=== PATIENT | female | born 1965 | race Caucasian/White ===

== ENCOUNTER 2017-12-31 03:11 | Emergency (ER) | payer MEDICAID, SELFPAY ==
[2017-12-31 03:12] VITALS: BP 191/87; PULSE 74; RESP 18; TEMP 36.9; O2SAT 100; BMI 32.5
--- NOTE | 2017-12-31 03:44 | ED.VISSUMM ---
- ER Visit Summary Date of Service: 12/31/17 Chief Complaint: Right lower rib cage and right upper quadrant abdominal pain History of Present Illness: The patient is a 52 F 3 of prior cholecystectomy. Is no history of a dilated cardiomyopathy, renal insufficiency and COPD. She states she was lying in bed at home when she had onset of right lower rib cage right upper quadrant abdominal pain. States she has a cough. No nausea no vomiting. No diarrhea no melena. No fever. She denies any trauma. She denies any dysuria. Physical Examination: Well-appearing middle-age female. Vital signs are stable afebrile. Pulse ox are percent on room air no signs of hypoxia. HEENT exam unremarkable. Neck nontender no lymphadenopathy. Lungs good auscultation bilaterally. Heart regular rate and rhythm no murmur. Chest wall she has reproducible tenderness along her right lower rib cage. No bruising no subcu air. Abdomen itself seems soft. There is only minimal tenderness and is more the right rib cage in the abdomen itself. Nondistended normal bowel sounds no peritoneal signs. No pulsatile mass. No Richard sign. No McBurney's point tenderness. Moving all 4 extremities. Calves nontender. No edema no cords. Neurologically she is awake and alert with no focal motor deficits. Test Results: CBC normal with a white count of 7. H&H of 13 and 38. Electrolytes unremarkable with a normal gap and creatinine is 0.8. EKG shows sinus rhythm a rate is 73 with no acute signs of ischemia or dysrhythmia. Portable chest x-ray 1 view shows borderline cardiomegaly otherwise no acute process. No bony abnormalities. No infiltrate. Liver enzymes normal. Lipase normal. Emergency Department Course and Treatment: Patient seemingly has right rib cage pain and chest x-ray to be obtained also obtain labs but clinically I do not think this is abdominal pain. Treatment Plan: Repeat exam at 0548 patient is resting comfortably. Patient is doing much better multiple repeat exams. She seems like she wants to be admitted to the hospital but there is no criteria in which she would need admission either clinically or lab perez. She will be discharged to home. To follow-up with her primary care physician. Disposition: Discharge Impression: Right lower chest wall pain This note was generated with [employer] dictation software. It may contain incorrect words, spelling, and punctuation that were not noted in review of the chart prior to signing ED Disposition - Plan for ED Patient: Chief Complaint: Abd Pain Referrals: Jay Cody MD [Primary Care Provider] -
--- NOTE | 2017-12-31 04:28 | ED.RN ---
PT GLORIA KEATING WITH C/O CP. THIS RN CALLED FOR EKG. PT ON MONITOR. DR. KAUR INFORMED. WILL CONTINUE TO MONITOR.
[2017-12-31 04:35] LABS: Absolute Neutrophil Count 5.9 X10^3/uL (2.0-7.7); Basophil# 0.02 X10^3/uL; Basophil% 0.3 % (0-1); Eosinophil# 0.14 X10^3/uL; Eosinophils% 1.8 % (0-5); Hematocrit 38.9 % (37-47); Hemoglobin 13.5 g/dl (12.0-15.0); Lymphocyte % 14.1 % (19-41); Mean Corp Hgb Conc 34.7 g/gl (32-36); Mean Corpuscular Hgb 31.5 pg (27.0-32.0); Mean Corpuscular Volume 90.7 fL (81-99); Mean Platelet Vol. 10.4 fl (6.2-12.0); Monocyte# 0.65 X10^3/uL; Monocyte% 8.3 % (0-10); Neutrophil % 75.4 % (47-70); Platelet Count 196 K/mm3 (150-450); RBC Distribution Width CV 13.5 % (11.6-14.6); RBC Distribution Width SD 44.5 fl (35.1-43.9); Red Blood Count 4.29 M/mm3 (4.2-5.4); White Blood Count 7.8 K/mm3 (4.4-11.0)
[2017-12-31 04:37] LABS: POSITIVE COUNT NO; POSITIVE DIFFERENTIAL NO; POSITIVE MORPHOLOGY NO
[2017-12-31 04:55] LABS: Anion Gap 10 (5-15); BUN 25 mg/dL (7-18); BUN/Creat Ratio 30.7 RATIO (10-20); Calcium,Total 8.7 mg/dL (8.5-10.1); Chloride 102 mmol/L (98-107); Creatinine, Serum 0.82 mg/dL (0.55-1.02); EST Glomerular Filtration Rate 78 mL/min (>60); Est Glom Filt Rate - Afr Amer 94 mL/min (>60); Estimated Creatinine Clearance 68.51 ml/min; Glucose 93 mg/dL (74-106); Potassium 3.7 mmol/L (3.5-5.1); Sodium Level 134 mmol/L (136-145)
[2017-12-31 05:30] VITALS: BP 182/81; PULSE 79; RESP 18; O2SAT 97
--- NOTE | 2017-12-31 05:45 | RAD_ITS ---
STUDY: X-RAY CHEST REASON FOR EXAM: Female, 52 years old. Pain TECHNIQUE: Single frontal view of the chest. COMPARISON: 06/24/2017 FINDINGS: The lungs are clear and expanded. There is no demonstrated pleural abnormality. Stable cardiac silhouette. Normal mediastinum and rosita. Normal visualized pulmonary arteries. Normal visualized aortic arch and descending thoracic aorta. Normal visualized thoracic spine. Normal visualized ribs, clavicles, and shoulders. There is no demonstrated abnormality of the visualized soft tissue structures of the upper abdomen. RAD/Chest 1 View (Portable) IMPRESSION: No acute pulmonary findings. Electronically Signed: Juan Carlos Slater MD at 6:21 EDT Tel , Service support ,
[2017-12-31 06:04] LABS: Lipase 102 U/L (73-393)
--- NOTE | 2017-12-31 06:10 | ED.RN ---
PT REPORTS WEAKNESS IN LEFT ARM. DR. KAUR INFORMED. PT ASLO COMPLAINS OF CONTINUED PAIN IN ABDOMEN AND NAUSEA. DR. KAUR INFORMED. ZOFRAN TO BE ORDERED PER DR. KAUR.
[2017-12-31] MEDS: Ondansetron 4 MG/2 ML Vial IV (06:17)
[2017-12-31 06:27] LABS: AST(SGOT) 21 U/L (15-37); Alanine Aminotransfer ALT/SGPT 28 U/L (13-56); Albumin, Serum 3.6 g/dL (3.2-5.0); Alkaline Phosphatase 88 U/L (45-117); Bilirubin, Direct < 0.05 mg/dL (0.00-0.30); Globulin 3.1 g/dL (2.2-4.2); Protein, Total 6.7 g/dL (6.4-8.2)
--- NOTE | 2017-12-31 06:30 | ED.DEP ---
ED Disposition - Plan for ED Patient: Disposition: Home or Assisted Living Chief Complaint: Abd Pain Instructions: ED Strain Chest Wall Referrals: Jay Cody MD [Primary Care Provider] - As soon as possible Additional Instructions: All your labs, x-ray and EKG were normal today. Call follow-up your primary care physician.
[2017-12-31 06:54] VITALS: BP 183/88; PULSE 79; RESP 18; O2SAT 97
--- NOTE | 2017-12-31 06:55 | ED.RN ---
PT GIVEN WRITTEN AND VERBAL DISCHARGE INSTRUCTIONS. PT VERBALIZES UNDERSTANDING. PT SIGNS MEDICAL RELEASE FORM AND TAKES HOME LABORATORY REPORT. PT DRESSES SELF AND USED LEFT ARM WITHOUT DIFFICULTY. PT AMBULATED TO WHEELCHAIR WITHOUT ASSISTANCE AND WAS WHEELED TO FAMILY VEHICLE. IV D/C AND COVERED WITH GAUZE DRESSING.
== END 2017-12-31 07:02 | disposition home or self-care (01) ==
PROVIDERS: Emergency Provider Emergency Medicine; Family Provider Family Medicine; PCP Family Medicine
DX: R07.89 Other chest pain (principal); R05 Cough; R11.0 Nausea; I51.7 Cardiomegaly; J44.9 Chronic obstructive pulmonary disease, unspecified; I42.0 Dilated cardiomyopathy; N28.9 Disorder of kidney and ureter, unspecified; Z90.49 Acquired absence of other specified parts of digestive tract; Z79.899 Other long term (current) drug therapy; Z72.0 Tobacco use
CPT/HCPCS: 71045; 80048; 80076; 83690; 85025; 96374; 99285; A4216; J2405

== ENCOUNTER → 2018-01-21 12:51 | Outpatient (CLI) | payer MEDICAID, SELFPAY ==
--- NOTE | 2018-01-21 12:54 | RAD_ITS ---
STUDY: SWALLOWING STUDY REASON FOR EXAM: Female, 52 years old. Globus sensation. TECHNIQUE: The examination was performed with Speech Pathology in attendance. Under fluoroscopic observation, the patient ingested thin barium, thick barium, barium pudding, and barium coated cracker. FLUOROSCOPY TIME: 1:30 minutes/seconds. 1453 spot images. RADIOLOGIST INVOLVEMENT: Radiologist was present and providing direct supervision. COMPARISON: None. FINDINGS: The following was observed during swallowing of the various mixtures of barium: Thin Barium: There was no evidence of aspiration or laryngeal penetration. Barium Pudding: There was no evidence of aspiration or laryngeal penetration. Barium Coated Cracker: There was no evidence of aspiration or laryngeal penetration. RAD/Swallowing Function w/Video IMPRESSION: Normal tailored barium swallow study. No evidence of increased risk for aspiration. The swallow study findings were discussed with the patient by the speech pathologist at the conclusion of the examination. Please see speech pathology report for more information and recommendations. Electronically Signed: Patrick Keita MD at 14:10 EDT Tel [phone], Service support ,
--- NOTE | 2018-01-21 13:00 | SP.MBSS_ITS ---
PRIMARY / SECONDARY DIAGNOSIS: dysphagia (R13.10) REFERRING PHYSICIAN: Toni Cody CURRENT DIET: Soft Textures/Thin Liquids DENTITION: many missing/decayed teeth; currently in the process of having all teeth removed to be fitted for dentures MENTAL STATUS: WNL RESPIRATORY STATUS: SOB w/ exertion; oxygenating on room ail PREVIOUS MODIFIED BARIUM SWALLOW STUDY: patient reports that she had a previous MBS several years ago at the [facility] no report available at time of study REASON FOR REFERRAL: Pt c/o globus sensation w/ all textures and w/ own secretions. Reports coughing /choking on liquids if taking large sips. Further assessment of swallow function under fluoroscopy recommended by Speech Therapy. MEDICAL HISTORY: HTN, severe aortic insufficiency, CKDIII, DAPHNE, hypothyroidism, and schizophrenia STUDY FINDINGS: Patient participated in a Modified Barium Swallow (MBS) study on 01/21/2018. Dr. Keita was the radiologist present for this evaluation. This study was recorded in the lateral view and images were sent to PACs for storage. The following consistencies were presented to this patient for analysis of oropharyngeal swallow function: thin liquid, pudding, and a regular texture Yasmine Doone cookie. Results of the MBS are as follows: PENETRATION / ASPIRATION SCALE (MYERS): 1 = does not enter airway 2 = enters airway/above vocal folds/ejected 3 = enters airway/above vocal folds/not ejected 4 = enters airway/contacts vocal folds/ejected 5 = enters airway/contacts vocal folds/not ejected 6 = enters airway/below vocal folds/ejected 7 = enters airway/below vocal folds/not ejected despite effort 8 = enters airway/below vocal folds/no effort PENETRATION / ASPIRATION SCALE (SCORE): Thin liquid - 5 mL tsp: 2* Thin liquid - 5 mL tsp: Could not view d/t patient movement Thin liquid - 5 mL tsp: 2* Thin liquids via cup (single sip): 2* Thin liquids via cup (sequential swallows): 2* Pudding via spoon: 1 Pudding via spoon: 1 Regular textured cookie: 1 Thin liquids via straw (single sip): 2* *thin liquid undercoated the posterior laryngeal surface of the epiglottis during the swallow w/ contract ejection and complete arytenoid to epiglottic petiole contact for airway protection at the height of swallow IMPRESSION: DIAGNOSIS: mild oropharyngeal dysphagia (R13.12) ORAL PHASE CHARACTERIZED BY: LABIAL SEAL: no labial escape TONGUE CONTROL DURING BOLUS MANIPULATION: cohesive bolus between tongue to palatal seal BOLUS PREPARATION / MASTICATION: slow prolonged chewing/mashing with complete recollection BOLUS TRANSPORT / LINGUAL MOTION: slowed tongue motion ORAL RESIDUE: trace residue lining oral structures PHARYNGEAL PHASE CHARACTERIZED BY: INITIATION OF PHARYNGEAL SWALLOW: bolus head at posterior laryngeal surface of epiglottis at first hyoid excursion SOFT PALATE ELEVATION: no bolus between soft palate and pharyngeal wall LARYNGEAL ELEVATION: partial superior movement of thyroid cartilage/partial approximation of arytenoids cartilage to epiglottic petiole ANTERIOR HYOID EXCURSION: partial anterior movement EPIGLOTTIC MOVEMENT: complete epiglottic inversion LARYNGEAL VESTIBULE CLOSURE AT HEIGHT OF SWALLOW: complete laryngeal vestibule closure with no air/contrast in laryngeal vestibule PHARYNGEAL STRIPPING WAVE: pharyngeal stripping wave present / complete PHARYNGOESOPHAGEAL SEGMENT OPENING: complete distension and complete duration with no obstruction of flow TONGUE BASE RETRACTION: trace column of contrast between tongue base and posterior pharyngeal wall PHARYNGEAL RESIDUE: trace residue within or on pharyngeal structures ESOPHAGEAL PHASE CHARACTERIZED BY: ESOPHAGEAL BOLUS CLEARANCE IN THE UPRIGHT POSITION: could not view d/t patient positioning INTERPRETATION OF RESULTS: Patient presents with mild oropharyngeal dysphagia (R13.12). Oral phase is marked by mastication inefficiency w/ prolonged mastication time d/t poor dentition (many missing/decayed teeth. Pharyngeal phase is marked by suboptimal bolus location upon swallow onset w/ bolus reaching the posterior laryngeal surface of the epiglottic prior to swallow onset, reduced laryngeal elevation, and reduced anterior hyoid excursion w/ resultant slowed epiglottic inversion. Thin liquids undercoated the posterior laryngeal surface of the epiglottis before/during the swallow, but any substantive penetration was prevented d/t complete arytenoid cartilage to epiglottic petiole contact during the swallow with complete airway closure/protection at the height of the swallow. Trace oral , pyriform, and UES residue was appreciated post deglutition (WNL). Residue was not of a sufficient amount to likely be the cause of this patient?s globus sensation. RECOMMENDATIONS: Regular Textures/Thin Liquids COMPENSATORY STRATEGIES RECOMMENDED: Small bites and sips, one sip at a time, remain upright for 30-60 minutes post meal (GERD precaution). NEED FOR SKILLED SPEECH LANGUAGE SERVICES: Patient presents with mild oropharyngeal dysphagia (R13.12). Patient requires intensive skilled speech-language intervention targeting continued diet texture management, training and implementation of recommended compensatory strategies, and training and implementation of recommended oropharyngeal strengthening exercises to facilitate improved timing of pharyngeal swallow onset and maintain pharyngeal strength/laryngeal vestibule closure. Patient noted to wince and posture preventatively throughout study, although no physiological cause was found. OTHER CONSIDERATIONS: Would further consider additional workup via ENT to determine cause of severe dysphonia. ADDITIONAL COMMENTS/RECOMMENDATIONS: Results and recommendations were discussed with the Patient immediately following MBS completion. Images obtained during MBS were reviewed with the patient to improve understanding of the results and subsequent recommendations. The Patient verbalized understanding and agreement with all recommendations and education provided. IMAGE COUNT: [id number] G-CODES: SWALLOWING [id number] Current Status: CI SWALLOWING G8997 Goal Status: CH SWALLOWING G8998 Discharge Status:
== END ==
PROVIDERS: Family Provider Family Medicine; PCP Family Medicine; Visit Provider Family Medicine
DX: R13.10 Dysphagia, unspecified (principal)
CPT/HCPCS: 74230; 92611

== ENCOUNTER 2018-01-26 00:46 | Emergency (ER) | payer MEDICAID, SELFPAY ==
[2018-01-26 00:46] VITALS: BP 219/83; PULSE 96; RESP 21; TEMP 36.5; O2SAT 98; BMI 34.4
--- NOTE | 2018-01-26 00:53 | RAD_ITS ---
STUDY: X-RAY CHEST REASON FOR EXAM: Female, 53 years old. Chest pain TECHNIQUE: 1 view COMPARISON: None. FINDINGS: There is cardiomegaly with no acute pneumonia or failure. There are no pleural effusions. Normal visualized thoracic spine. Normal visualized ribs, clavicles, and shoulders. There is no demonstrated abnormality of the visualized soft tissue structures of the upper abdomen. RAD/Chest 1 View (Portable) IMPRESSION: No acute findings in the lungs. Mild cardiomegaly. Electronically Signed: Sheldon Turcios, at 1:53 EDT Tel , Service support ,
--- NOTE | 2018-01-26 00:53 | EKG12_ITS ---
Test Reason : CP Blood Pressure : / mmHG Vent. Rate : 096 BPM Atrial Rate : 096 BPM P-R Int : 140 ms QRS Dur : 078 ms QT Int : 366 ms P-R-T Axes : 044 -19 032 degrees QTc Int : 462 ms Normal sinus rhythm Nonspecific ST abnormality Abnormal ECG Confirmed by JOSEF SPEARS, BRENDA ([id number]), editor book KIEL OSEGUERA ([id number]) on 01/29/2018 2:02:34 PM Referred By: ROSA Confirmed By:BRENDA BAHENA MD
[2018-01-26 00:55] VITALS: O2SAT 97
--- NOTE | 2018-01-26 01:08 | ED.VISSUMM ---
- ER Visit Summary Date of Service: 01/26/18 Chief Complaint: Chest pain and shortness of breath History of Present Illness: The patient is a 53 F reports chest pain shortness of breath all day today. Patient states her chest pain worsened about an hour ago. She is complaining of chemical zambrano to her hands from cleaning over the last several days, but does not believe she inhaled any of the chemicals. Past history significant for hypertension, dilated cardio myopathy, AAA, COPD, renal insufficiency. Patient states she was recently in the hospital in [place] secondary to her blood pressure. Physical Examination: Blood pressures 219/83, temperature 97.7, heart rate 96, respiratory rate 21, pulse ox 97% on 2 L. Patient sitting upright in bed no acute distress. Head neck examination is unremarkable. Heart is regular rate and rhythm. Lung sounds are slightly diminished throughout. No wheezes or rhonchi noted. Abdomen is soft nontender. Extremity examination reveals no calf tenderness or edema. She has mild erythema to her hands from contact dermatitis. Test Results: EKG is sinus at [address] lateral precordial changes. Normal chest x-ray reveals chronic changes. CBC and chemistry studies are unremarkable. Troponin is less than 0.02. BNP is normal. Emergency Department Course and Treatment: Patient received aspirin along with 20 mg of IV hydralazine. Blood pressure is 170s over 80s. Patient states this is her baseline. She has essentially no chest pain at this time. Patient states that today is her birthday and she does not want to be admitted to the hospital. She was recently admitted to [facility] and had an extensive cardiac workup and evaluation for her blood pressure. 3 hour repeat EKG and troponin are obtained. Repeat EKG is unremarkable with no sign of ischemia and repeat troponin remains less than 0.02. Blood pressure has been improved in the 150-160 systolic range. Patient has been resting comfortably. She will be discharged to home at this time. Treatment Plan: [] Disposition: Discharge Impression: 1. Hypertension, improved 2. Chest pain, improved This note was generated with [employer] dictation software. It may contain incorrect words, spelling, and punctuation that were not noted in review of the chart prior to signing ED Disposition - Plan for ED Patient: Chief Complaint: Chest Pain Referrals: Jay Cody MD [Primary Care Provider] -
[2018-01-26 01:16] LABS: Absolute Lymphocyte Count 1.18 X10^3/ul (0.83-4.51); Absolute Neutrophil Count 6.2 X10^3/uL (2.0-7.7); Basophil% 0.1 % (0-1); Hematocrit 38.7 % (37-47); Hemoglobin 13.4 g/dl (12.0-15.0); Lymphocyte # 1.18 X10^3/ul (4.0); Lymphocyte % 14.3 % (19-41); Mean Corp Hgb Conc 34.6 g/gl (32-36); Mean Corpuscular Hgb 31.1 pg (27.0-32.0); Mean Corpuscular Volume 89.8 fL (81-99); Mean Platelet Vol. 9.5 fl (6.2-12.0); Monocyte# 0.82 X10^3/uL; Monocyte% 9.9 % (0-10); Neutrophil # 6.22 X10^3/uL (2.7-7.7); Neutrophil % 75.5 % (47-70); POSITIVE COUNT NO; POSITIVE DIFFERENTIAL NO; POSITIVE MORPHOLOGY NO; Platelet Count 260 K/mm3 (150-450); RBC Distribution Width CV 13.6 % (11.6-14.6); RBC Distribution Width SD 43.9 fl (35.1-43.9); Red Blood Count 4.31 M/mm3 (4.2-5.4); White Blood Count 8.3 K/mm3 (4.4-11.0)
[2018-01-26 01:17] LABS: Basophil# 0.01 X10^3/uL
--- NOTE | 2018-01-26 01:18 | ED.DCSUM_ITS ---
- ER Visit Summary Date of Service: 01/26/18 Chief Complaint: Chest pain and shortness of breath History of Present Illness: The patient is a 53 F reports chest pain shortness of breath all day today. Patient states her chest pain worsened about an hour ago. She is complaining of chemical zambrano to her hands from cleaning over the last several days, but does not believe she inhaled any of the chemicals. Past history significant for hypertension, dilated cardio myopathy, AAA, COPD, renal insufficiency. Patient states she was recently in the hospital in [place] secondary to her blood pressure. Physical Examination: Blood pressures 219/83, temperature 97.7, heart rate 96, respiratory rate 21, pulse ox 97% on 2 L. Patient sitting upright in bed no acute distress. Head neck examination is unremarkable. Heart is regular rate and rhythm. Lung sounds are slightly diminished throughout. No wheezes or rhonchi noted. Abdomen is soft nontender. Extremity examination reveals no calf tenderness or edema. She has mild erythema to her hands from contact dermatitis. Test Results: EKG is sinus at [address] lateral precordial changes. Normal chest x-ray reveals chronic changes. CBC and chemistry studies are unremarkable. Troponin is less than 0.02. BNP is normal. Emergency Department Course and Treatment: Patient received aspirin along with 20 mg of IV hydralazine. Blood pressure is 170s over 80s. Patient states this is her baseline. She has essentially no chest pain at this time. Patient states that today is her birthday and she does not want to be admitted to the hospital. She was recently admitted to [facility] and had an extensive cardiac workup and evaluation for her blood pressure. 3 hour repeat EKG and troponin are obtained. Repeat EKG is unremarkable with no sign of ischemia and repeat troponin remains less than 0.02. Blood pressure has been improved in the 150-160 systolic range. Patient has been resting comfortably. She will be discharged to home at this time. Treatment Plan: [] Disposition: Discharge Impression: 1. Hypertension, improved 2. Chest pain, improved This note was generated with [employer] dictation software. It may contain incorrect words, spelling, and punctuation that were not noted in review of the chart prior to signing ED Disposition - Plan for ED Patient: Chief Complaint: Chest Pain Referrals: Jay Cody MD [Primary Care Provider] -
[2018-01-26 01:23] LABS: Anion Gap 7 (5-15); BUN 20 mg/dL (7-18); BUN/Creat Ratio 21.7 RATIO (10-20); Calcium,Total 8.8 mg/dL (8.5-10.1); Chloride 105 mmol/L (98-107); Creatinine, Serum 0.92 mg/dL (0.55-1.02); EST Glomerular Filtration Rate 67 mL/min (>60); Est Glom Filt Rate - Afr Amer 82 mL/min (>60); Estimated Creatinine Clearance 60.36 ml/min; Glucose 109 mg/dL (74-106); Potassium 3.8 mmol/L (3.5-5.1); Sodium Level 139 mmol/L (136-145)
[2018-01-26] MEDS: 0.9% Normal Saline 1,000 ML 15 ML IV (01:23)
[2018-01-26] MEDS: hydrALAZINE 20 MG/ML Vial IV (01:24)
[2018-01-26] MEDS: Aspirin 81 MG TAB.CHEW 324 MG PO (01:25)
[2018-01-26 01:41] LABS: BNP,B-Type NATRIURETIC PEPTIDE 34.9 pg/mL (0-100)
--- NOTE | 2018-01-26 01:56 | EKG12_ITS ---
Test Reason : REPEAT Blood Pressure : / mmHG Vent. Rate : 073 BPM Atrial Rate : 073 BPM P-R Int : 162 ms QRS Dur : 082 ms QT Int : 428 ms P-R-T Axes : 045 -24 037 degrees QTc Int : 471 ms Normal sinus rhythm Normal ECG Confirmed by BRENDA BAHENA MD ([id number]), editor magazine KIEL OSEGUERA ([id number]) on 01/29/2018 2:03:35 PM Referred By: ROSA Confirmed By:BRENDA BAHENA MD
[2018-01-26 02:02] VITALS: BP 182/87; PULSE 82; RESP 22; O2SAT 97
[2018-01-26 02:50] VITALS: BP 154/105; PULSE 76; RESP 24; O2SAT 98
[2018-01-26 04:12] VITALS: BP 154/97; PULSE 78; RESP 20; O2SAT 97
--- NOTE | 2018-01-26 04:47 | ED.DEP ---
ED Disposition - Plan for ED Patient: Disposition: Home or Assisted Living Chief Complaint: Chest Pain Instructions: ED HTN Established Referrals: Jay Cody MD [Primary Care Provider] - 1 Week
[2018-01-26 04:59] VITALS: BP 178/88; PULSE 83; RESP 20; O2SAT 97
== END 2018-01-26 04:59 | disposition home or self-care (01) ==
PROVIDERS: Emergency Provider Emergency Medicine; Family Provider Family Medicine; PCP Family Medicine
DX: I10 Essential (primary) hypertension (principal); R07.9 Chest pain, unspecified; L25.3 Unspecified contact dermatitis due to other chemical products; I42.0 Dilated cardiomyopathy; I71.4 Abdominal aortic aneurysm, without rupture; J44.9 Chronic obstructive pulmonary disease, unspecified; N28.9 Disorder of kidney and ureter, unspecified; Z79.899 Other long term (current) drug therapy; Z72.0 Tobacco use
CPT/HCPCS: 71045; 80048; 83880; 84484; 85025; 93005; 96374; 99285; J7030; A4216

== ENCOUNTER 2018-02-14 01:51 | Emergency (ER) | payer MEDICAID, SELFPAY ==
[2018-02-14 01:52] VITALS: BP 165/100; PULSE 102; RESP 16; TEMP 36.7; O2SAT 99; BMI 38.2
--- NOTE | 2018-02-14 02:09 | CT_ITS ---
STUDY: CT ABDOMEN AND PELVIS WITHOUT CONTRAST REASON FOR EXAM: Female, 53 years old. Patient unable to void for few days. RADIATION DOSAGE (If Supplied By Facility): CTDIvol = ( 12.06 ) mGy, DLP = ( 608.86 ) mGycm TECHNIQUE: Transaxial images were obtained from the dome of the diaphragm to the symphysis pubis without oral contrast, and without intravenous contrast. Sagittal and coronal images were reconstructed. Individualized dose optimization techniques were used for this CT. COMPARISON: None. FINDINGS: The visualized lung bases are unremarkable. The visualized portions of the heart are within normal limits. Normal liver. There are surgical clips in the gallbladder fossa consistent with a prior cholecystectomy. Normal spleen. Normal pancreas. Normal bilateral adrenal glands. Normal right kidney. Normal left kidney. Normal visualized stomach. The small bowel loops are normal in caliber. There is fecal retention throughout the colon. The appendix is visualized and appears normal. There is diffuse atherosclerotic calcification of the abdominal aorta, without a demonstrated aneurysm. Normal inferior vena cava. Normal retroperitoneum. The bladder is not well-distended. There is a Yarbrough catheter in the bladder. There is a small umbilical hernia containing fat. There are degenerative changes at the level of L5-S1 with narrowing of the disc space, posterior degenerative spurs and vacuum disc. CT/Abdomen/Pelvis without Cont IMPRESSION: No evidence of urinary tract stones or hydronephrosis. Fecal retention throughout the colon. No demonstrated acute process. Electronically Signed: Farzad Jordan MD at 3:11 EDT Tel , Service support ,
--- NOTE | 2018-02-14 02:15 | ED.DCSUM_ITS ---
- ER Visit Summary Date of Service: 02/14/18 Chief Complaint: Abdominal pain, constipation and urinary retention History of Present Illness: The patient is a 53 F with history of hypertension, chronic kidney disease and cardiomyopathy who presents for 2 days of abdominal pain, vomiting, urinary retention and constipation. Patient states that she has not had a bowel movement in several days, and since Sunday she has taken laxatives and given herself 6 enemas, without result. For 2 days she has had abdominal pain and bloating, with nausea and vomiting. She continues to have constipation and denies flatus. She has not urinated for 2 days. She has been eating and drinking small amounts. She has associated shortness of breath, which she states is worse than her baseline shortness of breath. Denies fever, chest pain, back pain or other complaints. Physical Examination: Vital signs: afebrile, hemodynamically stable, no hypoxia on room air General: well nourished, well developed, in no distress, appears mildly uncomfortable Skin: warm, dry, no rash, no pallor HEENT: normocephalic and atraumatic; PERRL, EOMI, moist mucous membranes Cardiovascular: Mildly tachycardic rate and rhythm without murmurs, no peripheral edema, 2+ pulses all distal extremities Respiratory: No increased work of breathing, lungs are clear to auscultation bilaterally, no rales, rhonchi or wheezing Abdominal: Abdomen is soft, mildly distended, tender especially in the right mid and lower regions, with hyperactive bowel sounds, no guarding or rebound, large palpable tender mass in right abdomen MSK: Moves all extremities, no deformities, normal strength Neuro: Awake and alert, oriented ?4. No facial droop, sensation and motor function intact and symmetric Test Results: Abnormal Lab Results 02/14/18 02/14/18 02/14/18 02:27 02:27 02:27 WBC 7.7 RBC 4.46 Hgb 13.7 Hct 38.9 MCV 87.2 MCH 30.7 MCHC 35.2 RDW 12.8 RDW Differential 40.0 Plt Count 280 MPV 9.3 Immature Gran % (Auto) 0.100 Neut % (Auto) 68.0 Lymph % (Auto) 21.6 [place] % (Auto) 9.3 Eos % (Auto) 0.9 Baso % (Auto) 0.1 Absolute Neuts (auto) 5.2 Absolute Lymphs (auto) 1.65 Total Counted Not Reportable Sodium 131 L Potassium 3.5 Chloride 99 Carbon Dioxide 24.0 Anion Gap 8 BUN 22 H Creatinine 0.97 Estim Creat Clear Calc 50.03 Est GFR (MDRD) Af Amer 77 Est GFR (MDRD) Non-Af 64 BUN/Creatinine Ratio 22.7 H Glucose 107 H Lactic Acid 0.8 Calcium 9.0 Total Bilirubin 0.20 AST 14 L ALT 25 Alkaline Phosphatase 95 Total Protein 6.7 Albumin 3.8 Globulin 2.9 Albumin/Globulin Ratio 1.3 Lipase 103 Urine Color Urine Clarity Urine pH Ur Specific [place] Urine Protein Urine Glucose (UA) Urine Ketones Urine Occult Blood Urine Nitrite Urine Bilirubin Urine Urobilinogen Ur Leukocyte Esterase Urine RBC Urine WBC Ur Squamous Epith Cells Amorphous Sediment Urine Bacteria Urine Mucus 02/14/18 02:44 WBC RBC Hgb Hct MCV MCH MCHC RDW RDW Differential Plt Count MPV Immature Gran % (Auto) Neut % (Auto) Lymph % (Auto) [place] % (Auto) Eos % (Auto) Baso % (Auto) Absolute Neuts (auto) Absolute Lymphs (auto) Total Counted Sodium Potassium Chloride Carbon Dioxide Anion Gap BUN Creatinine Estim Creat Clear Calc Est GFR (MDRD) Af Amer Est GFR (MDRD) Non-Af BUN/Creatinine Ratio Glucose Lactic Acid Calcium Total Bilirubin AST ALT Alkaline Phosphatase Total Protein Albumin Globulin Albumin/Globulin Ratio Lipase Urine Color Yellow Urine Clarity Sl. Cloudy Urine pH 6.5 Ur Specific [place] 1.020 Urine Protein 30 H Urine Glucose (UA) Normal Urine Ketones Negative Urine Occult Blood Negative Urine Nitrite Negative Urine Bilirubin Negative Urine Urobilinogen Normal Ur Leukocyte Esterase 25 H Urine RBC 0 SEEN Urine WBC 0-5 SEEN Ur Squamous Epith Cells 0-5 SEEN Amorphous Sediment 1+ Urine Bacteria RARE Urine Mucus 0 SEEN Clinical Impression(s) from Imaging Studies Abdomen/Pelvis CT 02/14/18 02:09 IMPRESSION: No evidence of urinary tract stones or hydronephrosis. Fecal retention throughout the colon. No demonstrated acute process. Electronically Signed: Farzad Jordan MD at 3:11 EDT Tel , Service support , Emergency Department Course and Treatment: Bladder scan showed 250 cc of urine. Mass noted in patient's right abdomen feels consistent with constipated bowel. Patient was given Haldol for her vomiting and abdominal pain, as she is allergic to most pain medications and anti-emetics. SHe had rapid improvement in her symptoms after this medication. Yarbrough catheter placed and urine sent for UA. Patient's urine output was not consistent with urinary retention for 2 days, as there was only approximately 250 cc of urine in her bladder. On further questioning, patient is not exactly sure when the last time she urinated was. Likely she is somewhat volume depleted and is not actually having acute urinary retention. Her labs were not consistent with acute renal injury, thus she most likely has been urinating and is not giving an accurate history. Urine showed no sign of infection or hematuria. CBC showed no leukocytosis. Chemistry showed mild hyponatremia at 131, and patient did receive 1 L of saline. Hepatic function normal and normal lipase. Lactate was within normal limits at 0.8. CT of the flank showed large amount of stool and fecal retention in the colon. This is consistent with patient's abdominal examination showing palpable stool in the colon. Patient is feeling much better after the Haldol. She was given instructions for a bowel cleansing, as her enemas are not working at home. She will use MiraLAX up to 6 doses over the course of several hours to see if she can initiate a bowel movement. Otherwise she will follow-up with her doctor for further evaluation of her constipation. The catheter was discontinued as patient's workup is not consistent with acute urinary retention. Patient agreed with this plan was discharged home in improved condition. Treatment Plan: [] Disposition: [] Impression: Constipation This note was generated with [employer] dictation software. It may contain incorrect words, spelling, and punctuation that were not noted in review of the chart prior to signing ED Disposition - Plan for ED Patient: Disposition: Home or Assisted Living Chief Complaint: Complaint Instructions: ED Constipation Prescriptions: Polyethylene Glycol 3350 [Miralax] 17 gm PO UD #119 gm Referrals: Jay Cody MD [Primary Care Provider] - 1-2 Days if not improving Additional Instructions: You may use the Miralax to help you have a bowel movement as we discussed. If you do not have a bowel movement after taking the Miralax, or if at any time you do not feel well while taking the Miralax, stop it immediately and follow up with your doctor or return to the emergency department for another evaluation.
[2018-02-14 02:34] LABS: Absolute Lymphocyte Count 1.65 X10^3/ul (0.83-4.51); Absolute Neutrophil Count 5.2 X10^3/uL (2.0-7.7); Basophil# 0.01 X10^3/uL; Basophil% 0.1 % (0-1); Eosinophil# 0.07 X10^3/uL; Eosinophils% 0.9 % (0-5); Hematocrit 38.9 % (37-47); Hemoglobin 13.7 g/dl (12.0-15.0); Lymphocyte # 1.65 X10^3/ul (4.0); Lymphocyte % 21.6 % (19-41); Mean Corp Hgb Conc 35.2 g/gl (32-36); Mean Corpuscular Hgb 30.7 pg (27.0-32.0); Mean Corpuscular Volume 87.2 fL (81-99); Mean Platelet Vol. 9.3 fl (6.2-12.0); Monocyte# 0.71 X10^3/uL; Monocyte% 9.3 % (0-10); POSITIVE COUNT NO; POSITIVE DIFFERENTIAL NO; POSITIVE MORPHOLOGY NO; Platelet Count 280 K/mm3 (150-450); RBC Distribution Width CV 12.8 % (11.6-14.6); Red Blood Count 4.46 M/mm3 (4.2-5.4); White Blood Count 7.7 K/mm3 (4.4-11.0)
[2018-02-14] MEDS: Haloperidol Lactate 5 MG/ML Vial IV (02:41)
[2018-02-14] MEDS: 0.9% Normal Saline 1,000 ML 1000 ML IV (02:41)
[2018-02-14 02:48] LABS: Mucous, Urine 0 SEEN /hpf (<or=2+); Red Blood Cells-Urine 0 SEEN /hpf (0-5)
[2018-02-14 02:49] LABS: ALB/GLOB Ratio 1.3 RATIO (0.9-2.4); AST(SGOT) 14 U/L (15-37); Alanine Aminotransfer ALT/SGPT 25 U/L (13-56); Albumin, Serum 3.8 g/dL (3.2-5.0); Alkaline Phosphatase 95 U/L (45-117); Anion Gap 8 (5-15); BUN 22 mg/dL (7-18); BUN/Creat Ratio 22.7 RATIO (10-20); Chloride 99 mmol/L (98-107); Creatinine, Serum 0.97 mg/dL (0.55-1.02); EST Glomerular Filtration Rate 64 mL/min (>60); Est Glom Filt Rate - Afr Amer 77 mL/min (>60); Estimated Creatinine Clearance 50.03 ml/min; Globulin 2.9 g/dL (2.2-4.2); Glucose 107 mg/dL (74-106); Lipase 103 U/L (73-393); Potassium 3.5 mmol/L (3.5-5.1); Protein, Total 6.7 g/dL (6.4-8.2); Sodium Level 131 mmol/L (136-145)
[2018-02-14 02:52] LABS: Color, Urine Yellow (Yellow); Glucose, Dipstick Normal (Normal); Ketone-Dipstick Negative (Negative); Leukocyte Esterase-Dipstick 25 /ul (Negative); Nitrite-Dipstick Negative (Negative); Occult Blood-Urine Negative /ul (Negative); Protein-Dipstick 30 mg/dl (Negative); Urine Bilirubin Dipstick Negative (Negative); Urine Clarity Sl. Cloudy (Clear); Urine Urobilinogen Normal (Normal); Urine pH 6.5 (5.0 - 8.0)
[2018-02-14 02:58] LABS: Amorphous Sediment 1+; Bacteria RARE /hpf (None Seen); Squamous Epithelial Cells - UA 0-5 SEEN /hpf (5-10)
[2018-02-14 02:58] LABS: Lactic Acid 0.8 mmol/L (0.4-2.0)
[2018-02-14 02:59] LABS: White Blood Cells 0-5 SEEN /hpf (0-5)
--- NOTE | 2018-02-14 03:51 | ED.DEP ---
ED Disposition - Plan for ED Patient: Disposition: Home or Assisted Living Chief Complaint: Complaint Instructions: ED Constipation Prescriptions: Polyethylene Glycol 3350 [Miralax] 17 gm PO UD #119 gm Referrals: Jay Cody MD [Primary Care Provider] - 1-2 Days if not improving Additional Instructions: You may use the Miralax to help you have a bowel movement as we discussed. If you do not have a bowel movement after taking the Miralax, or if at any time you do not feel well while taking the Miralax, stop it immediately and follow up with your doctor or return to the emergency department for another evaluation.
--- NOTE | 2018-02-14 03:53 | NURSING ---
INITIAL CATHETER RETURN ON 400
[2018-02-14 04:15] VITALS: BP 139/86; PULSE 72; RESP 18; O2SAT 98
== END 2018-02-14 04:15 | disposition home or self-care (01) ==
PROVIDERS: Emergency Provider Emergency Medicine; Family Provider Family Medicine; PCP Family Medicine
DX: K59.00 Constipation, unspecified (principal); R06.00 Dyspnea, unspecified; E87.1 Hypo-osmolality and hyponatremia; I12.9 Hypertensive chronic kidney disease with stage 1 through stage 4 chronic kidney disease, or unspecified chronic kidney disease; N18.9 Chronic kidney disease, unspecified; I42.9 Cardiomyopathy, unspecified; Z79.899 Other long term (current) drug therapy; Z72.0 Tobacco use
CPT/HCPCS: 74176; 80053; 81001; 83605; 83690; 85025; 96361; 96374; 99285; J7030; A4216

== ENCOUNTER 2018-03-21 14:20 | Observation (INO) | payer MEDICAID, SELFPAY ==
--- NOTE | 2018-03-21 11:32 | EKG12_ITS ---
Test Reason : SOB Blood Pressure : / mmHG Vent. Rate : 086 BPM Atrial Rate : 086 BPM P-R Int : 156 ms QRS Dur : 080 ms QT Int : 394 ms P-R-T Axes : 049 -14 029 degrees QTc Int : 471 ms Normal sinus rhythm Normal ECG Confirmed by JOSEF SPEARS, BRENDA ([id number]), design editor KIEL OSEGUERA ([id number]) on 03/27/2018 5:27:41 PM Referred By: CHE Confirmed By:BRENDA BAHENA MD
--- NOTE | 2018-03-21 12:11 | EKG12_ITS ---
Test Reason : CP Blood Pressure : / mmHG Vent. Rate : 068 BPM Atrial Rate : 068 BPM P-R Int : 156 ms QRS Dur : 084 ms QT Int : 426 ms P-R-T Axes : 044 -02 045 degrees QTc Int : 452 ms Normal sinus rhythm Normal ECG Confirmed by CHARLENE SPEARS, JAZMYNE ([id number]), newspaper or periodical editor KIEL OSEGUERA ([id number]) on 03/29/2018 1:55:57 PM Referred By: Confirmed By:JAZMYNE CHANG MD
--- NOTE | 2018-03-21 14:45 | RAD_ITS ---
STUDY: X-RAY CHEST REASON FOR EXAM: Female, 53 years old. Anxiety, shortness of breath, cough TECHNIQUE: PA and lateral views of the chest. COMPARISON: 01/26/2018 FINDINGS: The lungs are clear and expanded. There is no demonstrated pleural abnormality. Normal size heart. Normal mediastinum and rosita. Normal visualized pulmonary arteries. Normal visualized aortic arch and descending thoracic aorta. Normal visualized thoracic spine. Normal visualized ribs, clavicles, and shoulders. There is no demonstrated abnormality of the visualized soft tissue structures of the upper abdomen. RAD/Chest PA and Lateral IMPRESSION: Normal x-ray examination of the chest. Please note that this study was performed on 03/21/2018, but only now placed in my queue for interpretation, explaining the delay in reporting. Electronically Signed: Scott Dietz DO at 11:34 EDT Tel , Service support ,
--- NOTE | 2018-03-22 07:52 | DT_ITS ---
This patient was seen during an EMR downtime March 18, 2018 - March 25, 2018. This patient may have a combination of paper and electronic documentation or all paper documentation. All documentation is viewable within the e-chart portion of [employer] for each patient visit.
--- NOTE | 2018-03-22 08:47 | STRESSREP ---
Stress Test Report Pharmacologic myocardial perfusion stress test. 53-year-old lady with a history of chest pain. Stress protocol: Resting EKG demonstrates normal sinus rhythm with a rate of 67 bpm. Resting blood pressure is 152/80 mmHg. 0.4 mg of regadenoson was infused per usual protocol followed by rapid intravenous saline flush injection continuous EKG monitoring was performed. The maximum heart rate attained was 101 bpm which was 60% of the maximum predicted heart rate. The maximum workload attained was 1 metabolic equivalent. At rest there were no ST or T-wave changes noted to suggest ischemia at peak infusion no ST or T-wave changes were noted suggest ischemia. Myocardial perfusion protocol. 13.9 mCi of technetium 99m sestamibi was injected at rest. 0.4 mg of regadenoson was infused per usual protocol. At peak infusion 44.1 mCi of technetium 99m sestamibi was injected. Stress images were obtained. Stress and resting images were reconstructed and compared in the short axis vertical long and horizontal long axis. Gated images were also obtained. Perfusion SPECT analysis: Review of the stress images demonstrate normal uptake of tracer noted in all areas of the myocardium. The resting images similarly demonstrate normal uptake of tracer noted in all areas of the myocardium. No areas of reversibility are noted suggest ischemia and no previous infarct is noted. Gated SPECT analysis: The gated ejection fraction is noted to be 61%. Conclusion: Normal pharmacologic myocardial perfusion stress test. Preserved ejection fraction.
--- NOTE | 2018-03-22 11:32 | EKG12_ITS ---
Test Reason : AM EKG Blood Pressure : / mmHG Vent. Rate : 064 BPM Atrial Rate : 064 BPM P-R Int : 170 ms QRS Dur : 088 ms QT Int : 452 ms P-R-T Axes : 035 -08 027 degrees QTc Int : 466 ms Normal sinus rhythm Normal ECG Confirmed by CHARLENE SPEARS, JAZMYNE ([id number]), acquisitions editor KIEL OSEGUERA ([id number]) on 03/29/2018 1:53:55 PM Referred By: DR MENDOZA Confirmed By:JAZMYNE CHANG MD
[2018-03-23 12:02] LABS: BNP,B-Type NATRIURETIC PEPTIDE 13.4 pg/mL (0-100)
[2018-03-23 12:06] LABS: Magnesium 2.3 mg/dL (1.6-2.6); Thyroid Stim Hormone (TSH) < 0.02 uIU/mL (0.358-3.74)
[2018-03-23 13:58] LABS: Hematocrit 42.6 % (37-47); Hemoglobin 14.8 g/dl (12.0-15.0); Mean Corpuscular Hgb 30.1 pg (27.0-32.0); Mean Corpuscular Volume 86.6 fL (81-99); Red Blood Count 4.92 M/mm3 (4.2-5.4); White Blood Count 6.3 K/mm3 (4.4-11.0)
[2018-03-23 13:59] LABS: Absolute Lymphocyte Count 1.53 X10^3/ul (0.83-4.51); Basophil# 0.02 X10^3/uL; Basophil% 0.3 % (0-1); Eosinophil# 0.15 X10^3/uL; Eosinophils% 2.4 % (0-5); Lymphocyte # 1.53 X10^3/ul (4.0); Lymphocyte % 24.2 % (19-41); Mean Corp Hgb Conc 34.7 g/gl (32-36); Mean Platelet Vol. 9.5 fl (6.2-12.0); Monocyte# 0.61 X10^3/uL; Monocyte% 9.6 % (0-10); Neutrophil # 4.01 X10^3/uL (2.7-7.7); Neutrophil % 63.3 % (47-70); POSITIVE COUNT NO; POSITIVE DIFFERENTIAL NO; POSITIVE MORPHOLOGY NO; Platelet Count 316 K/mm3 (150-450); RBC Distribution Width CV 12.9 % (11.6-14.6); RBC Distribution Width SD 40.3 fl (35.1-43.9)
[2018-03-23 14:00] LABS: D-Dimer Quantitative (DVT/PE) 0.47 FEU/ug/m (0.27-0.49)
[2018-03-24 16:28] LABS: BUN 13 mg/dL (7-18); BUN/Creat Ratio 12.9 RATIO (10-20); Creatinine, Serum 1.01 mg/dL (0.55-1.02); EST Glomerular Filtration Rate 61 mL/min (>60); Est Glom Filt Rate - Afr Amer 74 mL/min (>60); Glucose 102 mg/dL (74-106)
[2018-03-24 16:29] LABS: ALB/GLOB Ratio 1.2 RATIO (0.9-2.4); AST(SGOT) 14 U/L (15-37); Alanine Aminotransfer ALT/SGPT 23 U/L (13-56); Albumin, Serum 4.1 g/dL (3.2-5.0); Alkaline Phosphatase 117 U/L (45-117); Anion Gap 12 (5-15); Calcium,Total 9.2 mg/dL (8.5-10.1); Chloride 95 mmol/L (98-107); Globulin 3.4 g/dL (2.2-4.2); Potassium 3.6 mmol/L (3.5-5.1); Protein, Total 7.5 g/dL (6.4-8.2); Sodium Level 130 mmol/L (136-145)
[2018-03-25 17:59] LABS: Hemoglobin 13.7 g/dl (12.0-15.0); Partial Thromboplast Time 29.9 Seconds (24.1-36.2); Prothrombin Time (Protime)PT. 12.7 SECONDS (11.7-14.9); Red Blood Count 4.47 M/mm3 (4.2-5.4)
[2018-03-25 18:00] LABS: Hematocrit 39.2 % (37-47); Mean Corp Hgb Conc 34.9 g/gl (32-36); Mean Corpuscular Hgb 30.6 pg (27.0-32.0); Mean Corpuscular Volume 87.7 fL (81-99); Mean Platelet Vol. 9.5 fl (6.2-12.0); Platelet Count 252 K/mm3 (150-450); RBC Distribution Width CV 13.1 % (11.6-14.6)
[2018-03-25 23:00] LABS: Anion Gap 8 (5-15); BUN 13 mg/dL (7-18); BUN/Creat Ratio 14.3 RATIO (10-20); Calcium,Total 8.6 mg/dL (8.5-10.1); Chloride 98 mmol/L (98-107); Cholesterol 171 mg/dL (200); Creatinine, Serum 0.91 mg/dL (0.55-1.02); EST Glomerular Filtration Rate 68 mL/min (>60); Est Glom Filt Rate - Afr Amer 82 mL/min (>60); Glucose 89 mg/dL (74-106); High Density Lipoprotein 71 mg/dL; Potassium 3.9 mmol/L (3.5-5.1); Sodium Level 131 mmol/L (136-145); Triglycerides 85 mg/dL; Very Low Density Lipoprotein 17 mg/dL (5-40)
[2018-03-26 01:11] LABS: Amphetamine Urine VISTA POSITIVE (<1000 ng/mL); Barbiturate Urine VISTA NEGATIVE (< 200 ng/mL); Benzodiazepine Urine VISTA NEGATIVE (< 200 ng/mL); Cocaine Urine VISTA NEGATIVE (< 300 ng/mL); Ecstacy Urine VISTA NEGATIVE (< 500 ng/mL); Methadone Urine VISTA NEGATIVE (< 300 ng/mL); PCP Urine VISTA NEGATIVE (< 25 ng/mL)
[2018-03-26 01:12] LABS: Scan Indicated on CBC? Y/N NO
== END 2018-03-22 14:20 | disposition home or self-care (01) ==
LOC: ED 03-22 07:51 → PCU 03-22 07:53
PROVIDERS: Nurse Practitioner Family; Admitting Provider Internal Medicine; Emergency Provider Emergency Medicine; Family Provider Family Medicine; PCP Family Medicine; Visit Provider Internal Medicine
DX: R07.9 Chest pain, unspecified (principal); I12.9 Hypertensive chronic kidney disease with stage 1 through stage 4 chronic kidney disease, or unspecified chronic kidney disease; N18.9 Chronic kidney disease, unspecified; J45.909 Unspecified asthma, uncomplicated; G47.33 Obstructive sleep apnea (adult) (pediatric); F41.9 Anxiety disorder, unspecified; F31.9 Bipolar disorder, unspecified; E03.9 Hypothyroidism, unspecified; I50.9 Heart failure, unspecified; K21.9 Gastro-esophageal reflux disease without esophagitis; G40.909 Epilepsy, unspecified, not intractable, without status epilepticus; Z85.41 Personal history of malignant neoplasm of cervix uteri
CPT/HCPCS: 36415; 71046; 78452; 80048; 80053; 80061; 80307; 80320; 83735; 83880; 84443; 84484; 85025; 85027; 85379; 85610; 85730; 93005; 93017; 96361; 96374; 96375; 96376; 99218; 99285; A9500; J7030; A4216; G0378; G0480; J2405; J2785

== ENCOUNTER 2018-04-13 04:13 | Emergency (ER) | payer MEDICAID, SELFPAY ==
[2018-04-13 04:14] VITALS: BP 154/84; PULSE 99; RESP 20; TEMP 36.9; O2SAT 100; BMI 34.2
[2018-04-13] MEDS: Ketorolac 30 MG/ML Syringe IV (04:49)
[2018-04-13] MEDS: 0.9% Normal Saline 1,000 ML 1000 ML IV (04:49)
[2018-04-13] MEDS: Ondansetron 4 MG/2 ML Vial IV (04:49)
--- NOTE | 2018-04-13 05:00 | RAD_ITS ---
STUDY: X-RAY - ACUTE ABDOMINAL SERIES REASON FOR EXAM: Female, 53 years old. TECHNIQUE: Single view of the chest. Supine, 3 view(s) of the abdomen were obtained. COMPARISON: None. FINDINGS: There is no bowel distention or free intraperitoneal air. No abnormal calcifications. Upper quadrant indicate previous cholecystectomy. . There is a mild degree of fecal stasis The accompanying chest radiograph is unremarkable RAD/Acute Abdomen Inc Chest IMPRESSION: Mild fecal stasis. Nothing acute in the abdomen or chest Electronically Signed: Sheldon Turcios, at 5:32 EDT Tel , Service support ,
[2018-04-13 05:07] LABS: Absolute Lymphocyte Count 1.54 X10^3/ul (0.83-4.51); Absolute Neutrophil Count 3.4 X10^3/uL (2.0-7.7); Basophil# 0.01 X10^3/uL; Basophil% 0.2 % (0-1); Eosinophil# 0.14 X10^3/uL; Eosinophils% 2.5 % (0-5); Hematocrit 38.9 % (37-47); Hemoglobin 13.6 g/dl (12.0-15.0); Lymphocyte # 1.54 X10^3/ul (4.0); Lymphocyte % 27.7 % (19-41); Mean Corpuscular Hgb 30.4 pg (27.0-32.0); Mean Corpuscular Volume 86.8 fL (81-99); Mean Platelet Vol. 9.7 fl (6.2-12.0); Monocyte# 0.47 X10^3/uL; Monocyte% 8.5 % (0-10); Neutrophil # 3.39 X10^3/uL (2.7-7.7); Neutrophil % 60.9 % (47-70); POSITIVE COUNT NO; POSITIVE DIFFERENTIAL NO; POSITIVE MORPHOLOGY NO; Platelet Count 246 K/mm3 (150-450); RBC Distribution Width CV 13.1 % (11.6-14.6); RBC Distribution Width SD 42.2 fl (35.1-43.9); Red Blood Count 4.48 M/mm3 (4.2-5.4); White Blood Count 5.6 K/mm3 (4.4-11.0)
[2018-04-13 05:26] LABS: AST(SGOT) 15 U/L (15-37); Alanine Aminotransfer ALT/SGPT 25 U/L (13-56); Albumin, Serum 4.1 g/dL (3.2-5.0); Alkaline Phosphatase 107 U/L (45-117); Anion Gap 13 (5-15); BUN 17 mg/dL (7-18); Bilirubin, Direct 0.12 mg/dL (0.00-0.30); Calcium,Total 9.3 mg/dL (8.5-10.1); Chloride 94 mmol/L (98-107); Creatinine, Serum 1.31 mg/dL (0.55-1.02); EST Glomerular Filtration Rate 45 mL/min (>60); Est Glom Filt Rate - Afr Amer 54 mL/min (>60); Estimated Creatinine Clearance 42.39 ml/min; Globulin 3.3 g/dL (2.2-4.2); Glucose 95 mg/dL (74-106); Lipase 71 U/L (73-393); Potassium 3.4 mmol/L (3.5-5.1); Protein, Total 7.4 g/dL (6.4-8.2); Sodium Level 131 mmol/L (136-145)
[2018-04-13 05:49] LABS: Mucous, Urine 0 SEEN /hpf (<or=2+); Red Blood Cells-Urine 0 SEEN /hpf (0-5)
[2018-04-13 05:50] LABS: Color, Urine Yellow (Yellow); Glucose, Dipstick Normal (Normal); Ketone-Dipstick Negative (Negative); Leukocyte Esterase-Dipstick 25 /ul (Negative); Nitrite-Dipstick Negative (Negative); Occult Blood-Urine Negative /ul (Negative); Protein-Dipstick 15 mg/dl (Negative); Specific Gravity, Urine 1.015 (1.002-1.030); Urine Bilirubin Dipstick Negative (Negative); Urine Clarity Sl. Cloudy (Clear); Urine Urobilinogen Normal (Normal)
[2018-04-13 06:04] LABS: Bacteria RARE /hpf (None Seen); Hyaline Cast 0-5 SEEN /lpf (0-5); Squamous Epithelial Cells - UA 0-5 SEEN /hpf (5-10); White Blood Cells 0-5 SEEN /hpf (0-5)
--- NOTE | 2018-04-13 06:09 | ED.VISSUMM ---
- ER Visit Summary Date of Service: 04/13/18 Chief Complaint: Abdominal pain History of Present Illness: The patient is a [address] Cody. She reports she has abdominal pain that began 3 days ago. It is continuous sharp pain that waxes and wanes. Senna 10 worsening a 10 currently. It is worsened by movement relieved by remaining still. She reports is been nausea and vomited 5-6 times without blood. She reports her last problem was 3 days ago. Typically she goes daily. She also complains of dysuria and hematuria with decreased urine output. She denies any fever or chills. Physical Examination: Vitals: Stable. Afebrile. General: Well-nourished and well-developed. Head: Normocephalic atraumatic. Neck: Supple, no lymphadenopathy. No JVD. Nontender. Cardiovascular: Regular rate and rhythm. No murmurs. Respiratory: No respiratory distress. Clear to auscultation bilaterally. Abdominal: Soft, mild diffuse tenderness to palpation, nondistended, normal bowel sounds. No guarding, rebound, or peritoneal signs. Back: Nontender. Extremities: Nontender, no edema. Skin: Normal color, no rash. Neurologic: Alert and oriented ?3. Cranial nerves II through XII are intact. Normal strength and sensation. Psych: Normal affect. Test Results: CBC is normal. Chem-7 is more for sodium 131, potassium 3.4, chloride 94, creatinine 1.31. Baseline creatinine is been 0.82-1.01 and 2018. LFTs are normal. Lipase is normal. UA is negative. Three-view of the abdomen shows mild fecal stasis and nonspecific bowel gas pattern. Emergency Department Course and Treatment: Patient was treated Toradol and Zofran IV. She was given Bentyl IM. She is resting comfortably. Treatment Plan: Had a prolonged discussion the patient that taking sharp pain medications not in her best interest as they will worsen her constipation. She will be discharged magnesium citrate instructed to follow-up her primary care physician 1-2 days if not improving. Return to the emergency department for any worsening symptoms. Disposition: To home in improved and stable condition. Impression: 1. Dehydration. 2. Constipation. This note was generated with [employer] software. It may contain incorrect words, spelling, and punctuation that were not noted in review of the chart prior to signing ED Disposition - Plan for ED Patient: Disposition: Home or Assisted Living Chief Complaint: Flank Pain Instructions: ED Constipation Referrals: Brad Morales MD [Primary Care Provider] - 1-2 Days if not improving
[2018-04-13 06:45] VITALS: BP 147/62; PULSE 67; RESP 18; O2SAT 98
[2018-04-13] MEDS: Magnesium Citrate 300 ML PO (06:47)
== END 2018-04-13 06:59 | disposition home or self-care (01) ==
PROVIDERS: Emergency Provider Emergency Medicine; Family Provider Family Medicine; PCP Family Medicine
DX: E86.0 Dehydration (principal); K59.00 Constipation, unspecified; R31.9 Hematuria, unspecified; J45.909 Unspecified asthma, uncomplicated; I10 Essential (primary) hypertension; Z86.39 Personal history of other endocrine, nutritional and metabolic disease; Z90.49 Acquired absence of other specified parts of digestive tract; Z79.899 Other long term (current) drug therapy
CPT/HCPCS: 74022; 80048; 80076; 81001; 83690; 85025; 96361; 96374; 96375; 99283; A4216; J2405

== ENCOUNTER 2018-04-15 20:16 | Emergency (ER) | payer MEDICAID, SELFPAY ==
[2018-04-15 20:17] VITALS: BP 173/95; PULSE 90; RESP 28; TEMP 37; O2SAT 99; BMI 29.9
--- NOTE | 2018-04-15 20:19 | ED.RN ---
CALLED FOR EKG AND BIPAP PER RN REQUEST, PULLED OLD EKG'S FOR
--- NOTE | 2018-04-15 20:22 | EKG12_ITS ---
Test Reason : CP Blood Pressure : / mmHG Vent. Rate : 077 BPM Atrial Rate : 077 BPM P-R Int : 152 ms QRS Dur : 084 ms QT Int : 414 ms P-R-T Axes : 039 -21 032 degrees QTc Int : 468 ms Normal sinus rhythm Normal ECG Confirmed by JOSEF SPEARS, BRENDA ([id number]), slot editor KIEL OSEGUERA ([id number]) on 04/18/2018 2:37:47 PM Referred By: DR ECHAVARRIA Confirmed By:BRENDA BAHENA MD
--- NOTE | 2018-04-15 20:26 | ED.VISSUMM ---
- ER Visit Summary Date of Service: 04/15/18 Chief Complaint: Shortness of breath History of Present Illness: The patient is a 53 F who presents with shortness of breath. She states it started earlier today. She states that she has had a cough with phlegm but she cannot get the phlegm up. She has a history of asthma and COPD. She has been using her puffers at home. She also has a burning chest pain. Her shortness of breath is worse with exertion. She was admitted earlier in March for chest pain and had a negative stress test. EMS was called and they state that she was tachypneic when they got there but during transport her respiratory rate went down to the put her on CPAP. They were concerned that she was tiring out. Physical Examination: Vital signs reviewed. Female in no respiratory distress. Her pulse ox is normal on room air after taking off of CPAP. HEENT exam unremarkable. Heart is regular rate and rhythm without murmurs. Lungs are clear to auscultation, however lung sounds are diminished due to patient effort. Abdomen is soft and nontender. Extremities reveal no edema. Skin exam normal. Neurologic exam normal. Test Results: EKG normal sinus rhythm with a rate of 77. No ST changes. Laboratory studies are unremarkable except for potassium 3.4. ABG showed a pH of 7.4 88/36/77/28. Chest x-ray revealed no acute findings Emergency Department Course and Treatment: Patient was treated with albuterol. She was resting comfortably. When she arrived we immediately took her off CPAP and put her on room air and her pulse ox was normal. Her pH reveals no acute abnormalities. Patient's pulse ox was normal throughout her stay. Her respiratory rate was between 18 and 20. Her chest x-ray reveals no infiltrates. Her labs look unremarkable. I will send her home with prednisone and Mucinex D as she still complained of phlegm in her throat making it hard to breathe and cough it up. I explained her that she was not hypoxic and she had no indications for admission. She will follow-up with her primary care physician Treatment Plan: [] Disposition: Discharge Impression: COPD exacerbation This note was generated with [employer] software. It may contain incorrect words, spelling, and punctuation that were not noted in review of the chart prior to signing ED Disposition - Plan for ED Patient: Chief Complaint: Shortness of Breath Referrals: Brad Morales MD [Primary Care Provider] -
--- NOTE | 2018-04-15 20:28 | RAD_ITS ---
STUDY: X-RAY CHEST REASON FOR EXAM: Female, 53 years old. Shortness of breath TECHNIQUE: Single AP portable view of the chest. COMPARISON: 04/13/2018 FINDINGS: The lungs are clear and expanded. There is no demonstrated pleural abnormality. Normal size heart. Normal mediastinum and rosita. Normal visualized pulmonary arteries. Normal visualized aortic arch and descending thoracic aorta. Normal visualized thoracic spine. Normal visualized ribs, clavicles, and shoulders. There is no demonstrated abnormality of the visualized soft tissue structures of the upper abdomen. RAD/Chest 1 View (Portable) IMPRESSION: Normal x-ray examination of the chest. Electronically Signed: Neri Marie DO at 20:45 EDT Tel , Service support ,
[2018-04-15] MEDS: Albuterol 2.5 MG/3 ML VIAL.NEB. INHALATION ×3 (20:31)
[2018-04-15 20:35] VITALS: PULSE 76; RESP 18
[2018-04-15 20:35] LABS: Allen Test POS; Base Excess 5 mmol/L (-2 to +2); Blood Gas Specimen Type ART; O2 Delivery Device Room Air; PO2 77 mmHG (75-100); SITE L Radial; SO2 96 % (95-99); Time Given 2026; Total Carbon Dioxide 29 mmol/L; pCO2 36.9 mmHg (35-45); pH 7.49 (7.35-7.45)
[2018-04-15 21:10] LABS: Absolute Neutrophil Count 3.9 X10^3/uL (2.0-7.7); Basophil# 0.01 X10^3/uL; Basophil% 0.2 % (0-1); Eosinophil# 0.18 X10^3/uL; Eosinophils% 2.8 % (0-5); Hemoglobin 12.3 g/dl (12.0-15.0); Mean Corp Hgb Conc 34.2 g/gl (32-36); Mean Corpuscular Hgb 30.4 pg (27.0-32.0); Mean Corpuscular Volume 89.1 fL (81-99); Mean Platelet Vol. 9.5 fl (6.2-12.0); Monocyte# 0.69 X10^3/uL; Monocyte% 10.8 % (0-10); Neutrophil # 3.91 X10^3/uL (2.7-7.7); Platelet Count 274 K/mm3 (150-450); RBC Distribution Width CV 13.1 % (11.6-14.6); RBC Distribution Width SD 42.5 fl (35.1-43.9); Red Blood Count 4.04 M/mm3 (4.2-5.4); White Blood Count 6.4 K/mm3 (4.4-11.0)
[2018-04-15 21:11] LABS: POSITIVE COUNT NO; POSITIVE DIFFERENTIAL NO; POSITIVE MORPHOLOGY NO
[2018-04-15 21:26] LABS: Anion Gap 7 (5-15); BUN 18 mg/dL (7-18); BUN/Creat Ratio 15.5 RATIO (10-20); Calcium,Total 8.8 mg/dL (8.5-10.1); Chloride 99 mmol/L (98-107); Creatinine, Serum 1.16 mg/dL (0.55-1.02); EST Glomerular Filtration Rate 52 mL/min (>60); Est Glom Filt Rate - Afr Amer 63 mL/min (>60); Estimated Creatinine Clearance 57.94 ml/min; Glucose 118 mg/dL (74-106); Potassium 3.4 mmol/L (3.5-5.1); Sodium Level 135 mmol/L (136-145)
[2018-04-15 21:44] LABS: BNP,B-Type NATRIURETIC PEPTIDE 28.5 pg/mL (0-100)
[2018-04-15 21:48] VITALS: BP 136/68; PULSE 88; RESP 20; O2SAT 100
--- NOTE | 2018-04-15 21:50 | ED.DEP ---
ED Disposition - Plan for ED Patient: Disposition: Home or Assisted Living Chief Complaint: Shortness of Breath Instructions: ED COPD Flare Prescriptions: Prednisone [Deltasone] 40 mg PO DAILY #8 tab Guaifenesin/Pseudoephedrne HCl [Mucinex D ER 1,200-120 mg Tab] 1 ea PO BID #14 [id number] Referrals: Brad Morales MD [Primary Care Provider] -
[2018-04-15] MEDS: predniSONE 20 MG Tablet 40 MG PO (22:03)
--- NOTE | 2018-04-16 14:45 | CM.ED ---
ED CALLBACK: Follow-up call placed to patient. Voicemail left with return contact information.
== END 2018-04-15 22:09 | disposition home or self-care (01) ==
PROVIDERS: Emergency Provider Emergency Medicine; Family Provider Family Medicine; PCP Family Medicine
DX: J44.1 Chronic obstructive pulmonary disease with (acute) exacerbation (principal); I10 Essential (primary) hypertension; E78.00 Pure hypercholesterolemia, unspecified; Z90.49 Acquired absence of other specified parts of digestive tract; Z79.899 Other long term (current) drug therapy
CPT/HCPCS: 36600; 71045; 80048; 82803; 83880; 84484; 85025; 93005; 94640; 99285; A4216

== ENCOUNTER 2018-04-22 10:56 | Emergency (ER) | payer MEDICAID, SELFPAY ==
[2018-04-22 10:57] VITALS: BP 144/82; PULSE 101; RESP 22; TEMP 36.6; O2SAT 100; BMI 35.5
[2018-04-22 11:56] VITALS: O2SAT 96
--- NOTE | 2018-04-22 11:59 | RAD_ITS ---
STUDY: X-RAY CHEST REASON FOR EXAM: Female, 53 years old. Dyspnea. Left upper back pain. TECHNIQUE: Single AP portable view of the chest. COMPARISON: Comparison is made with prior study dated April 15, 2018. FINDINGS: EKG electrodes are seen. The lungs are clear and expanded. There is no demonstrated pleural abnormality. Normal size heart. Normal mediastinum and rosita. Normal visualized pulmonary arteries. Normal visualized aortic arch and descending thoracic aorta. Normal visualized thoracic spine. Normal visualized ribs, clavicles, and shoulders. There is no demonstrated abnormality of the visualized soft tissue structures of the upper abdomen. RAD/Chest 1 View (Portable) IMPRESSION: Normal x-ray examination of the chest. Electronically Signed: Patrick Keita MD at 12:34 EDT Tel [phone], Service support ,
--- NOTE | 2018-04-22 11:59 | EKG12_ITS ---
Test Reason : SOB
[2018-04-22] MEDS: Ipratropium/Albuterol Sulfate 3 ML AMPUL.NEB INHALATION (12:11)
[2018-04-22 12:13] VITALS: PULSE 85; RESP 24; O2SAT 100
[2018-04-22 12:32] LABS: Absolute Lymphocyte Count 1.83 X10^3/ul (0.83-4.51); Absolute Neutrophil Count 5.1 X10^3/uL (2.0-7.7); Basophil# 0.02 X10^3/uL; Basophil% 0.3 % (0-1); Eosinophil# 0.16 X10^3/uL; Eosinophils% 2.1 % (0-5); Hematocrit 39.5 % (37-47); Hemoglobin 13.6 g/dl (12.0-15.0); Lymphocyte # 1.83 X10^3/ul (4.0); Lymphocyte % 23.9 % (19-41); Mean Corp Hgb Conc 34.4 g/gl (32-36); Mean Corpuscular Hgb 30.8 pg (27.0-32.0); Mean Corpuscular Volume 89.4 fL (81-99); Mean Platelet Vol. 9.4 fl (6.2-12.0); Monocyte# 0.52 X10^3/uL; Monocyte% 6.8 % (0-10); Neutrophil % 66.6 % (47-70); POSITIVE COUNT NO; POSITIVE DIFFERENTIAL NO; POSITIVE MORPHOLOGY NO; Platelet Count 346 K/mm3 (150-450); RBC Distribution Width CV 12.9 % (11.6-14.6); RBC Distribution Width SD 41.8 fl (35.1-43.9); Red Blood Count 4.42 M/mm3 (4.2-5.4); White Blood Count 7.7 K/mm3 (4.4-11.0)
[2018-04-22 12:48] LABS: ALB/GLOB Ratio 1.3 RATIO (0.9-2.4); AST(SGOT) 17 U/L (15-37); Alanine Aminotransfer ALT/SGPT 25 U/L (13-56); Albumin, Serum 3.9 g/dL (3.2-5.0); Alkaline Phosphatase 100 U/L (45-117); Anion Gap 10 (5-15); BUN 23 mg/dL (7-18); BUN/Creat Ratio 19.8 RATIO (10-20); Calcium,Total 9.1 mg/dL (8.5-10.1); Chloride 99 mmol/L (98-107); Creatinine, Serum 1.16 mg/dL (0.55-1.02); EST Glomerular Filtration Rate 52 mL/min (>60); Est Glom Filt Rate - Afr Amer 63 mL/min (>60); Estimated Creatinine Clearance 47.88 ml/min; Globulin 3.1 g/dL (2.2-4.2); Glucose 96 mg/dL (74-106); Potassium 3.2 mmol/L (3.5-5.1); Sodium Level 137 mmol/L (136-145)
--- NOTE | 2018-04-22 14:07 | ED.RN ---
PT STATES I AM DONE i WANT TO GO HOME. PT AWARE WAITING FOR DC INSTRUCTIONS. PT UNSURE IF SHE IS WILLING TO WAIT
--- NOTE | 2018-04-22 14:15 | ED.RN ---
PT WALKS OUT WITHOUT DC INSTRUCTIONS. STATES I DON'T NEED THIS
--- NOTE | 2018-04-22 14:24 | ED.DCSUM_ITS ---
- ER Visit Summary Date of Service: 04/22/18 Chief Complaint: Shortness of breath. History of Present Illness: The patient is a 53 F with 2-3 weeks of shortness of breath continuous. There is cough and sputum associated with this she has a history of asthma she is being treated for this she is on steroids. She does have a history of cardiomyopathy. she does not have PE risk factors. She does have some chest pain associated with this chest pain. Physical Examination: Not appear in acute distress. Moist mucous membranes, no obvious facial deformity No C-spine tenderness supple neck. Regular rate and rhythm without any obvious murmurs Clear lungs bilaterally speaking in full sentences without any obvious respiratory distress Abdomen soft and nontender no guarding or rebound Moves all extremities without any difficulty or pain. Skin does not show any obvious rashes or lesions, no trauma. Alert oriented ?3 with no gross focal deficit Emergency Department Course and Treatment: Patient has an unremarkable exam and workup. My worry was that she had clear lungs and dyspnea with tachycardia. I wanted to do a PE study apparently patient eloped prior to this. I could not reevaluate her to no improvement or make any significant medical decisions so she decided to leave without telling anybody. Disposition: Eloped Impression: Shortness of breath This note was generated with [employer] dictation software. It may contain incorrect words, spelling, and punctuation that were not noted in review of the chart prior to signing ED Disposition - Plan for ED Patient: Chief Complaint: Shortness of Breath Referrals: Brad Morales MD [Primary Care Provider] -
--- NOTE | 2018-04-23 14:33 | CM.ED ---
ED CALLBACK: Voicemail left with return contact information. Encouraged patient to follow-up with PCP if symptoms are still present and to call for any assistance.
== END 2018-04-22 14:24 | disposition home or self-care (01) ==
PROVIDERS: Emergency Provider Emergency Medicine; Family Provider Family Medicine; PCP Family Medicine
DX: R06.02 Shortness of breath (principal); Z53.21 Procedure and treatment not carried out due to patient leaving prior to being seen by health care provider; J45.909 Unspecified asthma, uncomplicated; Z79.899 Other long term (current) drug therapy; Z72.0 Tobacco use
CPT/HCPCS: 71045; 80053; 83880; 84484; 85025; 93005; 94640; 99285; A4216

== ENCOUNTER → 2018-05-20 06:54 | Outpatient (CLI) | payer MEDICAID, SELFPAY ==
[2018-05-20 08:02] LABS: Absolute Lymphocyte Count 1.78 X10^3/ul (0.83-4.51); Absolute Neutrophil Count 4.1 X10^3/uL (2.0-7.7); Basophil# 0.02 X10^3/uL; Basophil% 0.3 % (0-1); Eosinophil# 0.29 X10^3/uL; Eosinophils% 4.2 % (0-5); Erythrocyte Sedimentation Rate 9 mm/hr (0-30); Hematocrit 36.8 % (37-47); Hemoglobin 12.1 g/dl (12.0-15.0); Lymphocyte # 1.78 X10^3/ul (4.0); Lymphocyte % 25.8 % (19-41); Mean Corp Hgb Conc 32.9 g/gl (32-36); Mean Corpuscular Hgb 30.2 pg (27.0-32.0); Mean Corpuscular Volume 91.8 fL (81-99); Mean Platelet Vol. 10.1 fl (6.2-12.0); Monocyte# 0.66 X10^3/uL; Monocyte% 9.6 % (0-10); Neutrophil # 4.13 X10^3/uL (2.7-7.7); Platelet Count 240 K/mm3 (150-450); RBC Distribution Width CV 13.7 % (11.6-14.6); RBC Distribution Width SD 45.6 fl (35.1-43.9); Red Blood Count 4.01 M/mm3 (4.2-5.4); White Blood Count 6.9 K/mm3 (4.4-11.0)
[2018-05-20 08:04] LABS: POSITIVE COUNT NO; POSITIVE DIFFERENTIAL NO; POSITIVE MORPHOLOGY NO
[2018-05-20 08:44] LABS: ALB/GLOB Ratio 1.2 RATIO (0.9-2.4); AST(SGOT) 23 U/L (15-37); Alanine Aminotransfer ALT/SGPT 23 U/L (13-56); Albumin, Serum 3.7 g/dL (3.2-5.0); Alkaline Phosphatase 86 U/L (45-117); Anion Gap 11 (5-15); BUN 20 mg/dL (7-18); BUN/Creat Ratio 18.2 RATIO (10-20); Calcium,Total 8.9 mg/dL (8.5-10.1); Chloride 104 mmol/L (98-107); EST Glomerular Filtration Rate 55 mL/min (>60); Est Glom Filt Rate - Afr Amer 67 mL/min (>60); Globulin 3.1 g/dL (2.2-4.2); Glucose 94 mg/dL (74-106); Potassium 3.3 mmol/L (3.5-5.1); Protein, Total 6.8 g/dL (6.4-8.2); Sodium Level 142 mmol/L (136-145); Thyroid Stim Hormone (TSH) 2.04 uIU/mL (0.358-3.74)
[2018-05-20 09:17] LABS: Vitamin B12 361 pg/mL (211-911)
[2018-05-22 11:15] LABS: ANTINUCLEAR ANTIBODIES DIRECT Negative (Negative)
== END ==
PROVIDERS: Family Provider Family Medicine; PCP Family Medicine; Visit Provider Psychiatry & Neurology Neurology
DX: R41.841 Cognitive communication deficit (principal)
CPT/HCPCS: 36415; 80053; 82607; 82746; 84443; 85025; 85652; 86038

== ENCOUNTER 2018-06-20 18:41 | Emergency (ER) | payer MEDICAID, SELFPAY ==
[2018-06-20 18:42] VITALS: BP 178/84; PULSE 84; RESP 16; TEMP 37.3; O2SAT 99; BMI 32.5
--- NOTE | 2018-06-20 19:40 | ED.DCSUM_ITS ---
- ER Visit Summary Date of Service: 06/20/18 Chief Complaint: Left foot pain History of Present Illness: The patient is a 53 F patient reports that she was walking and twisted her left foot awkwardly. She denies any other injuries. No blow to the head. No neck or back pain. She reports she has sharp pain in her left foot is 10 out of 10 severity. Is worsened by walking and relieved by rest. She denies any paresthesias distally. Physical Examination: Vitals: Stable. Afebrile. Neck: No vertebral tenderness. Full ROM without difficulty. Cleared by NEXUS criteria. Back: No vertebral tenderness. General: A&O x 3. NAD. Cardiovascular exam: Regular rate and rhythm, no murmur, rub or gallop. Respiratory exam: Chest nontender. No crepitus. Clear to auscultation bilaterally. No wheezes or stridor. Abdominal exam: Soft, nontender, nondistended, normal bowel sounds. No pain in RUQ or LUQ specifically. No peritoneal signs. Extremity: Well-healed scars over her left foot. No erythema or warmth. She has mild diffuse tenderness palpation that is worst over the first metatarsal distally. No soft tissue swelling or contusion. Test Results: X-ray shows the hardware to be intact and no acute disease. Emergency Department Course and Treatment: Patient refused pain medications and crutches. Treatment Plan: Patient will be discharged instructions to follow-up with Dr. Katz in 1 week if not improving. Return to the emergency department for any worsening symptoms. Disposition: To home in improved and stable condition. Impression: 1. Left foot sprain. This note was generated with [employer] dictation software. It may contain incorrect words, spelling, and punctuation that were not noted in review of the chart prior to signing ED Disposition - Plan for ED Patient: Disposition: Home or Assisted Living Chief Complaint: Lower Extremity Injury Instructions: ED Sprain Foot Referrals: Brad Katz DPM [STAFF PHYSICIAN] - 1 Week if not improving
[2018-06-20 19:42] VITALS: PULSE 74; RESP 16
== END 2018-06-20 19:43 | disposition home or self-care (01) ==
LOC: ED 19:18
PROVIDERS: Emergency Provider Emergency Medicine; Family Provider Family Medicine; PCP Family Medicine
DX: S93.602A Unspecified sprain of left foot, initial encounter (principal); X50.1XXA Overexertion from prolonged static or awkward postures, initial encounter; Y93.01 Activity, walking, marching and hiking; Y92.9 Unspecified place or not applicable; I10 Essential (primary) hypertension; E78.1 Pure hyperglyceridemia; Z79.899 Other long term (current) drug therapy; F17.200 Nicotine dependence, unspecified, uncomplicated
CPT/HCPCS: 73630; 99284

== ENCOUNTER 2018-08-10 20:28 | Observation (INO) | payer MEDICAID, SELFPAY ==
[2018-08-10 20:31] VITALS: PULSE 91; RESP 17; TEMP 36.6; O2SAT 98; BMI 34.4
--- NOTE | 2018-08-10 20:42 | EKG12_ITS ---
Test Reason : CP Blood Pressure : / mmHG Vent. Rate : 085 BPM Atrial Rate : 085 BPM P-R Int : 176 ms QRS Dur : 086 ms QT Int : 418 ms P-R-T Axes : 046 -04 035 degrees QTc Int : 497 ms Normal sinus rhythm Minimal voltage criteria for LVH, may be normal variant Prolonged QT Abnormal ECG Confirmed by CHARLENE SPEARS, JAZMYNE ([id number]), news editor KIEL OSEGUERA ([id number]) on 08/13/2018 10:09:53 AM Referred By: ALIZA Confirmed By:JAZMYNE CHANG MD
[2018-08-10] MEDS: 0.9% Normal Saline 1,000 ML 150 ML IV (20:44)
--- NOTE | 2018-08-10 20:45 | RAD_ITS ---
STUDY: X-RAY CHEST REASON FOR EXAM: Female, 53 years old. Chest pain TECHNIQUE: Single frontal view of the chest. COMPARISON: April 22, 2018 FINDINGS: Possible nodular infiltrates noted in the right upper and right lower lung field. Left lung is clear. There is no demonstrated pleural abnormality. Normal size heart. Normal mediastinum and rosita. Normal visualized pulmonary arteries. Normal visualized aortic arch and descending thoracic aorta. Normal visualized thoracic spine. Normal visualized ribs, clavicles, and shoulders. There is no demonstrated abnormality of the visualized soft tissue structures of the upper abdomen. RAD/Chest 1 View (Portable) IMPRESSION: Nodular infiltrates on the right. Recommend follow-up CT chest. Differential considerations include infectious, inflammatory, neoplastic etiologies. Electronically Signed: Kal Clark MD at 21:05 EDT , Service support ,
--- NOTE | 2018-08-10 20:46 | ED.VISSUMM ---
- ER Visit Summary Date of Service: 08/10/18 Chief Complaint: Chest pain History of Present Illness: The patient is a 53 F states she has not been feeling well for the past week. Today she had intermittent sharp chest pain on the left. She denies pain at this present time. She states her O2 sats have been somewhat low this past week. She has not had cough or congestion. Past history is significant for COPD, hypertension, dilated cardiomyopathy, AAA, schizophrenia, bipolar disorder, renal insufficiency. On review of records patient was admitted in March and had a normal nuclear stress test. Physical Examination: Blood pressure is 166/92, other vitals normal. Patient sitting upright in bed no acute distress. Head neck examination is normal. Heart is regular rate and rhythm. Lung sounds are clear. There is no reducible chest wall tenderness. There is no crepitus. Abdomen is soft with mild epigastric tenderness. Lower external examination was no significant calf tenderness or edema. Test Results: EKG is sinus 85 with no sign of acute ischemia. CBC is normal. Chemistry studies reveal a sodium of 124 potassium 3.1. Her LFTs and lipase normal. Troponin is normal. D-dimer is normal. Chest x-ray showed nodular infiltrates on the right, CT recommended. Emergency Department Course and Treatment: Patient refused aspirin stating that she cannot take this because of her kidney issues. Upon completion of lab work IV fluid boluses ordered along with 60 mEq of p.o. potassium. Systolic blood pressures climbed into the 180s systolic. Heart rate is 80. She will be given 20mg of IV labetalol. Patient will require admission for replacement of her sodium and potassium. I will speak with the hospitalist. A noncontrast chest CT has been ordered to further evaluate the chest x-ray findings. Treatment Plan: [] Disposition: Admit Impression: 1. Hyponatremia 2. Hypokalemia This note was generated with [email or web address] dictation software. It may contain incorrect words, spelling, and punctuation that were not noted in review of the chart prior to signing ED Disposition - Plan for ED Patient: Chief Complaint: Chest Pain Referrals: Jay Cody MD [NON-STAFF] -
[2018-08-10 20:53] LABS: Absolute Lymphocyte Count 1.85 X10^3/ul (0.83-4.51); Absolute Neutrophil Count 6.1 X10^3/uL (2.0-7.7); Basophil# 0.01 X10^3/uL; Basophil% 0.1 % (0-1); Eosinophil# 0.18 X10^3/uL; Hematocrit 38.3 % (37-47); Hemoglobin 13.4 g/dl (12.0-15.0); Lymphocyte # 1.85 X10^3/ul (4.0); Lymphocyte % 20.5 % (19-41); Mean Corpuscular Hgb 30.7 pg (27.0-32.0); Mean Corpuscular Volume 87.8 fL (81-99); Mean Platelet Vol. 9.9 fl (6.2-12.0); Monocyte# 0.88 X10^3/uL; Monocyte% 9.8 % (0-10); Neutrophil # 6.07 X10^3/uL (2.7-7.7); Neutrophil % 67.4 % (47-70); POSITIVE COUNT NO; POSITIVE DIFFERENTIAL NO; POSITIVE MORPHOLOGY NO; Platelet Count 255 K/mm3 (150-450); RBC Distribution Width CV 12.6 % (11.6-14.6); RBC Distribution Width SD 40.6 fl (35.1-43.9); Red Blood Count 4.36 M/mm3 (4.2-5.4)
[2018-08-10 21:02] LABS: D-Dimer Quantitative (DVT/PE) 0.43 FEU/ug/m (0.27-0.49)
[2018-08-10 21:07] LABS: AST(SGOT) 11 U/L (15-37); Alanine Aminotransfer ALT/SGPT 20 U/L (13-56); Albumin, Serum 3.8 g/dL (3.2-5.0); Alkaline Phosphatase 96 U/L (45-117); Anion Gap 8 (5-15); BUN 11 mg/dL (7-18); BUN/Creat Ratio 12.4 RATIO (10-20); Bilirubin, Direct 0.08 mg/dL (0.00-0.30); Calcium,Total 8.7 mg/dL (8.5-10.1); Chloride 91 mmol/L (98-107); Creatinine, Serum 0.89 mg/dL (0.55-1.02); EST Glomerular Filtration Rate 71 mL/min (>60); Est Glom Filt Rate - Afr Amer 85 mL/min (>60); Globulin 3.2 g/dL (2.2-4.2); Glucose 125 mg/dL (74-106); Lipase 69 U/L (73-393); Potassium 3.1 mmol/L (3.5-5.1); Sodium Level 124 mmol/L (136-145)
--- NOTE | 2018-08-10 21:20 | CT_ITS ---
STUDY: CT CHEST WITHOUT CONTRAST REASON FOR EXAM: Female, 53 years old. Chest pain x1 week and history of asthma and cervical cancer RADIATION DOSAGE (If Supplied By Facility): CTDIvol = ( 13.44 ) mGy, DLP = ( 513.82 ) mGycm TECHNIQUE: Transaxial imaging was performed without the administration of intravenous contrast material. Individualized dose optimization techniques were used for this CT. COMPARISON: Chest x-ray August 10, 2018 and CTA chest June 19, 2017 FINDINGS: Subsegmental atelectasis left base. Stable Pleural-based nodule left upper lobe. 3 to 4 mm on image #35. No further follow-up required. Calcified granuloma right lung base. There is no demonstrated pleural abnormality. Normal heart and pericardium. Normal mediastinum. Calcified hilar nodes noted bilaterally. Normal unenhanced pulmonary arteries. Normal aorta arch and descending thoracic aorta. Normal osseous structures. There is no demonstrated abnormality of the visualized upper abdomen. CT/Chest without Contrast IMPRESSION: Old granulomatous disease. No acute disease. Electronically Signed: Kal Clark MD at 22:56 EDT , Service support ,
[2018-08-10 21:28] VITALS: BP 180/75; PULSE 64; RESP 12; O2SAT 100
--- NOTE | 2018-08-10 21:32 | PCM.HP.STD ---
Problem List (1) Chest pain Status: Acute Qualifiers: Chest pain type: unspecified Qualified Code(s): R07.9 - Chest pain, unspecified (2) Hyponatremia Status: Acute (3) Hypokalemia Status: Acute (4) PAF (paroxysmal atrial fibrillation) Status: Acute (5) HTN (hypertension) Status: Chronic Qualifiers: Hypertension type: essential hypertension Qualified Code(s): I10 - Essential (primary) hypertension (6) HLD (hyperlipidemia) Status: Chronic Qualifiers: Hyperlipidemia type: unspecified Qualified Code(s): E78.5 - Hyperlipidemia, unspecified (7) Hypothyroidism Status: Chronic Qualifiers: Hypothyroidism type: unspecified Qualified Code(s): E03.9 - Hypothyroidism, unspecified (8) CKD (chronic kidney disease) stage 3, GFR 30-59 ml/min Status: Chronic (9) Migraine Status: Chronic Qualifiers: Migraine type: unspecified Status migrainosus presence: without status migrainosus Intractability: not intractable Qualified Code(s): G43.909 - Migraine, unspecified, not intractable, without status migrainosus (10) Asthma Status: Chronic Qualifiers: Asthma severity: unspecified severity Asthma persistence: unspecified Asthma complication type: unspecified Qualified Code(s): J45.909 - Unspecified asthma, uncomplicated (11) Depression Status: Chronic Qualifiers: Depression Type: unspecified Qualified Code(s): F32.9 - Major depressive disorder, single episode, unspecified (12) COPD, mild Status: Chronic (13) Schizophrenia Status: Chronic (14) Tobacco use Status: Chronic History of Present Illness Date of Admission: 08/10/18 Chief Complaint: Chest pain The patient is a 53 y/o F w/ PMHx: ? PAF, Obesity, HTN, HLD, Hypothyroidism, GERD, CKD stage III, GERD, Migraines, Bipolar Disorder/Conversion disorder, Asthma, Chronic R Hip pain, Chronic Hyponatremia (baseline 130) who presents to the [facility] ED on 08/10/18 with ongoing malaise, fatigue, poor intake x 1 week with onset sharp, stabbing, left sided chest pain without radiation with associated dyspnea, diaphoresis w/ concurrent intermittent lower but normal oxygenation saturations. She also notes R lateral lower flank discomfort which has been ongoing for unclear timeline. Patient notably rambling and listed myriad of complaints. She appears to have difficulty chronic with acute. She denies any current chest pain. In the ED work-up included T 97.8, heart rate 91, BP 180/70s per ED physician report upon discussion, respiratory rate 17, 98% on room air, unremarkable CBC, d-dimer 0.43, CMP with sodium 124, potassium 3.1, chloride 91, glucose 125, troponin < 0.015, EKG without any acute evidence of ischemia, chest x-ray with nodular infiltrates on the right with recommended follow-up CT of the chest with pending CT chest per ED upon requested evaluation of patient. In the ED patient administered potassium 60 mg 1 p.o. x1, labetalol 20 mg IV x1, aspirin, normal saline. 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 Gastritis (Chronic) Conversion disorder with abnormal movement (Chronic) Medical History: Medical History (Last Reviewed 11/08/17 @ 12:36 by Angelina Paredes) Hip dislocation, right S73.004A Hyponatremia E87.1 Aortic valve insufficiency I35.1 Arthralgia of right hip M25.551 Asthma J45.909 Bipolar 1 disorder F31.9 CKD (chronic kidney disease) N18.9 Enlarged aorta I77.89 GERD (gastroesophageal reflux disease) K21.9 Hypertension I10 Hypothyroidism E03.9 Migraines G43.909 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 Allergies atropine sulfate [From ] Allergy (Verified 08/10/18 20:34) Hives codeine phosphate [From Tylenol-Codeine #3] Allergy (Verified 08/10/18 20:34) breathing problems divalproex sodium [From Depakote] Allergy (Verified 08/10/18 20:34) Unknown hydromorphone HCl [From Dilaudid] Allergy (Verified 08/10/18 20:34) facial blisters,itching hyoscyamine sulfate [From ] Allergy (Verified 08/10/18 20:34) Hives Iodinated Contrast- Oral and IV Dye [Iodinated Contrast Media - IV Dye] Allergy (Verified 08/10/18 20:34) breathing problems and my bp went up latex Allergy (Verified 08/10/18 20:34) Rash pantoprazole sodium [From Protonix] Allergy (Verified 08/10/18 20:34) Rash phenobarbital [From ] Allergy (Verified 08/10/18 20:34) Hives promethazine HCl [From Phenergan] Allergy (Verified 08/10/18 20:34) Anaphylaxis ramipril Allergy (Verified 08/10/18 20:34) Unknown scopolamine hydrobromide [From ] Allergy (Verified 08/10/18 20:34) Hives ziprasidone mesylate [From Geodon] Allergy (Verified 08/10/18 20:34) Unknown Sulfa (Sulfonamide Antibiotics) Adverse Reaction (Verified 08/10/18 20:34) Vomiting ziprasidone HCl [From Geodon] Adverse Reaction (Verified 08/10/18 20:34) tremors VIDODIN TUSS Allergy (Uncoded 08/10/18 20:34) Itching Home Medications: Ambulatory Orders Medication Instructions Recorded Albuterol Inhaler [Ventolin Hfa] 1 - 2 puff INHALATION Q6H PRN PRN 06/19/17 Losartan Potassium 100 mg PO DAILY 06/19/17 Nitroglycerin [Nitrostat] 0.4 mg SL PRN PRN 06/19/17 hydrALAZINE [Apresoline] 25 mg PO TID 06/19/17 Levothyroxine Sodium 50 mcg PO DAILY 12/31/17 Fluticasone/Salmeterol [Advair 1 inhaler PO DAILY 02/14/18 250-50 Diskus] Hydrochlorothiazide [Hctz] 25 mg PO DAILY 02/14/18 NIFEdipine [Procardia Xl] 60 mg PO DAILY 02/14/18 Fluoxetine [Prozac] 40 mg PO DAILY 08/10/18 Oxcarbazepine [Trileptal] 900 mg PO DAILY 08/10/18 Ranitidine [Zantac] 150 mg PO BID 08/10/18 Surgical History: Surgical History (Last Reviewed 11/08/17 @ 12:36 by Angelina Paredes) History of uterine suspension procedure Z87.448 Hx of cholecystectomy Z98.890, Z90.49 S/P carpal tunnel release Z98.890 right x2 02/02/15 bladder sling left foot Surgical History: - - Cholecystectomy, R carpal tunnel surgery, L foot surgery, Uterine suspension and bladder sling. Psychiatric History: Anxiety, Depression, Schizophrenia [employer] OFFICER History: No pertinent [employer] OFFICER history Lives: Spouse/ Significant Other Smoking Status: Current every day smoker - < 1/2 ppd. Tobacco Use: Cigarettes Alcohol: None Drugs: None - *Family History Maternal Family History: Family History (Last Reviewed 11/08/17 @ 12:36 by Angelina Paredes) Sister Myocardial infarction Mother Hypertension Arthritis History Items: Hypertension Sibling Family History: Family History (Last Reviewed 11/08/17 @ 12:36 by Angelina Paredes) Sister Myocardial infarction Mother Hypertension Arthritis History Items: Heart Disease Paternal Family History: Family History (Last Reviewed 11/08/17 @ 12:36 by Angelina Paredes) Sister Myocardial infarction Mother Hypertension Arthritis History Items: Heart Disease Review of Systems Constitutional: Reports: Anorexia, Malaise, Weakness, Fatigue. Denies: Chills, Fever, Weight Change HEENT: Denies: Head Aches, Sinus Congestion, Sinus Drainage Cardiovascular: Reports: Chest Pain, Chest Pressure. Denies: Chest Tightness, Heaviness, Light Headedness, Orthopnea, Palpitations, Syncope Respiratory: Reports: Shortness of Breath. Denies: Cough, Shortness of breath at rest, Sputum production Gastrointestinal: Reports: Nausea. Denies: Abdominal Pain, Vomiting Genitourinary: Denies: Dysuria Musculoskeletal: Reports: Back Pain, Joint Pain. Denies: Joint Tenderness Skin: Denies: Rash, Wounds Neurological: Denies: Numbness, Tingling, Focal weakness Psychiatric: Reports: Anxiety, Depression. Denies: Homicidal Ideations, Suicidal Ideations Hematologic/ Lymphatic: Denies: Easy Bruising, Easy Bleeding VTE Information - Inpt Only VTE Present on Admission: No VTE Mechan Device Prophylaxis: SCD's VTE Pharm Prophylaxis ordered?: Yes Patient Problems: Active and Suspected Problems (Last Reviewed 11/08/17 @ 12:36 by Angelina Paredes) Chest pain (Acute) Hyponatremia (Acute) Hypokalemia (Acute) PAF (paroxysmal atrial fibrillation) (Acute) Subjective: Seated upright in the ED bed, NAD, noting myriad of complaints. Objective: Physical Examination: General: awake, alert, oriented x 3 and cooperative, seated upright in the ED bed in no apparent distress. Skin: normal color, turgor, no icterus, cyanosis. HEENT: AT/NC, EOMI, PERRLA, MMM, no carotid bruits or JVD noted, lacking dentition. Lungs: Diminished BS BL, > bases, moderate effort, no rales, ronchi or wheezing. Heart: Regular rate and rhythm; no gallop, rub audible. Abdomen: soft, obese, NTTP, ND, normal BS, no HSM. Extremities: no cyanosis, clubbing, or edema. Neurological: patient awake, alert, oriented x 3; cognitive function intact; pupils equally reactive to light and accomodation; cranial nerves II-XII grossly normal, moving all 4 extremities, no focal deficits, strength mildly globally decreased. Psychiatric: affect appears normal, no acute evidence of depressive or anxiety feelings. - Physical Exam Vital Signs Temp Pulse Resp Pulse Ox 97.8 F 91 17 98 08/10/18 20:31 08/10/18 20:31 08/10/18 20:31 08/10/18 20:31 Oxygen Delivery Method Room Air Weight: 200 lb 9.93 oz Body Mass Index (BMI) 34.4 Laboratory Tests Past 24 Hrs 08/10/18 08/10/18 08/10/18 20:39 20:39 20:39 WBC 9.0 RBC 4.36 Hgb 13.4 Hct 38.3 MCV 87.8 MCH 30.7 MCHC 35.0 RDW 12.6 RDW Differential 40.6 Plt Count 255 MPV 9.9 Immature Gran % (Auto) 0.200 Neut % (Auto) 67.4 Lymph % (Auto) 20.5 Coal % (Auto) 9.8 Eos % (Auto) 2.0 Baso % (Auto) 0.1 Absolute Neuts (auto) 6.1 Absolute Lymphs (auto) 1.85 Total Counted Not Reportable D-Dimer Quant (PE/DVT) 0.43 Sodium 124 L Potassium 3.1 L Chloride 91 L Carbon Dioxide 25.0 Anion Gap 8 BUN 11 Creatinine 0.89 Estim Creat Clear Calc 62.40 Est GFR (MDRD) Af Amer 85 Est GFR (MDRD) Non-Af 71 BUN/Creatinine Ratio 12.4 Glucose 125 H Calcium 8.7 Total Bilirubin 0.30 Direct Bilirubin 0.08 AST 11 L ALT 20 Alkaline Phosphatase 96 Troponin I < 0.015 Total Protein 7.0 Albumin 3.8 Globulin 3.2 Lipase 69 L Assessment/Plan All Active Problems (Last Reviewed 11/08/17 @ 12:36 by Angelina Paredes) Chest pain (Acute) Hyponatremia (Acute) Hypokalemia (Acute) PAF (paroxysmal atrial fibrillation) (Acute) Cyst (Acute) Hypertensive crisis without congestive heart failure (Acute) Chest pain (Acute) Left arm swelling (Acute) The patient is a 53 y/o F w/ PMHx: ? PAF, Obesity, HTN, HLD, Hypothyroidism, GERD, CKD stage III, GERD, Migraines, Bipolar Disorder/Conversion disorder, Asthma, Chronic R Hip pain, Chronic Hyponatremia who presents to the [facility] ED on 08/10/18 with ongoing malaise, fatigue, poor intake x 1 week with onset sharp, stabbing, left sided chest pain as well as R sided lower lateral flank pain, sharp in nature w/ concurrent intermittent lower but normal oxygenation saturations. (1) Chest Pain, Atypical w/ Nodular R Sided Infiltrates and R Flank Pain: EKG in ED with no acute evidence of ischemia, chest x-ray with nodular infiltrates on the right with recommended follow-up CT of the chest with pending CT chest per ED upon requested evaluation of patient. Will admit to PCU, place on a monitored bed to assure no acute myocardial infarction with serial cardiac enzymes and EKGs. Will await CT Chest results to further determine next best course in her care plan. She has had 2 negative stress tests in the last 13 months. ASA, NG, morphine. FLP in AM. Mag pending. UA requested and pending given flank pain. (2) Acute on Chronic Hyponatremia, Appears Hypovolemic: Na 124, patient is on HCTZ, possibly her etiology in addition to possible substance abuse given UDS notable, will gently hydration, repeat BMP, obtain mag level, obtain TSH level, obtain UOsm, UFeNa. (3) Hypokalemia: Admission K+ 3.1, supplementation given, repeat level in AM. (4) ? PAF: Noted in history, not on rate control agent, EKG without evidence, maintain on telemetry. (5) Hypertension: Continue home regimen including hydralazine, losartan, Procardia, holding hydrochlorothiazide given notable hyponatremia, PRN hydralazine. (6) Anxiety and Depression/Bipolar Disorder/Schizophrenia: Maintain on home regimen prozac, trileptal. (7) Chronic Asthma: ATC duonebs, PRN albuterol, HOB, IS parameters. (8) Obesity: Weight loss and lifestyle changes encouraged. (9) Tobacco Abuse: Encouraged cessation, inpatient consultation per RT, NR if desired. (10) Hypothyroidism: Continue home synthroid regimen, TSH and FT4 pending. (11) Chronic Kidney Disease Stage II/III: Admission BUN/Cr 11/0.89, CrCl 62, baseline renal function 1.1-1.3, repeat BMP in AM. (12) GERD: Famotidine. (13) DVT Prophylaxis: SCDs, lovenox. Code Visit OBSV E&M: [id number] Initial observation care L3
[2018-08-10] MEDS: Labetalol 20 MG/4 ML Vial IV (21:57)
--- NOTE | 2018-08-10 23:12 | EKG12_ITS ---
Test Reason : CP ADMISSION Blood Pressure : / mmHG Vent. Rate : 060 BPM Atrial Rate : 060 BPM P-R Int : 180 ms QRS Dur : 088 ms QT Int : 470 ms P-R-T Axes : 047 -03 034 degrees QTc Int : 470 ms Normal sinus rhythm Possible Left atrial enlargement Borderline ECG Confirmed by CHARLENE SPEARS, JAZMYNE ([id number]), television news video editor KIEL OSEGUERA ([id number]) on 08/15/2018 4:07:20 PM Referred By: KELLY Confirmed By:JAZMYNE CHANG MD
[2018-08-10 23:17] VITALS: PULSE 59; BMI 32.8
[2018-08-10 23:32] VITALS: BP 161/73; PULSE 60; RESP 16; TEMP 36.4; O2SAT 100
[2018-08-10 23:34] VITALS: BP 167/70; PULSE 60
[2018-08-10 23:47] VITALS: BP 161/73; PULSE 60
[2018-08-10] MEDS: Famotidine 20 MG Tablet PO (23:47)
[2018-08-10] MEDS: hydrALAZINE 25 MG Tablet PO (23:47)
[2018-08-11] VITALS (14 sets, daily range): BP systolic 120–141; BP diastolic 56–70; PULSE 58–66; RESP 15–22; TEMP 36.3–36.9; O2SAT 96–100
[2018-08-11 00:11] LABS: Magnesium 1.8 mg/dL (1.6-2.6); T4 Free Direct 0.82 ng/dL (0.76-1.46)
[2018-08-11] MEDS: 0.9% Normal Saline 1,000 ML 150 ML IV (02:28)
[2018-08-11 02:52] LABS: Hematocrit 37.1 % (37-47); Hemoglobin 12.7 g/dl (12.0-15.0); Mean Corp Hgb Conc 34.2 g/gl (32-36); Mean Corpuscular Hgb 30.4 pg (27.0-32.0); Mean Corpuscular Volume 88.8 fL (81-99); Mean Platelet Vol. 10.1 fl (6.2-12.0); Platelet Count 212 K/mm3 (150-450); RBC Distribution Width CV 12.6 % (11.6-14.6); RBC Distribution Width SD 40.4 fl (35.1-43.9); Red Blood Count 4.18 M/mm3 (4.2-5.4); White Blood Count 7.6 K/mm3 (4.4-11.0)
[2018-08-11 02:53] LABS: Scan Indicated on CBC? Y/N NO
--- NOTE | 2018-08-11 04:35 | NURSING ---
URINE SAMPLE OBTAINED VIA CLEAN CATCH AND SENT TO LAB
[2018-08-11 04:38] LABS: Bacteria 0 SEEN /hpf (None Seen); Mucous, Urine 0 SEEN /hpf (<or=2+); Red Blood Cells-Urine 0 SEEN /hpf (0-5); White Blood Cells 0 SEEN /hpf (0-5)
[2018-08-11 05:06] LABS: Color, Urine Yellow (Yellow); Glucose, Dipstick Normal (Normal); Ketone-Dipstick Negative (Negative); Leukocyte Esterase-Dipstick Negative /ul (Negative); Nitrite-Dipstick Negative (Negative); Occult Blood-Urine Negative /ul (Negative); Protein-Dipstick Negative (Negative); Urine Bilirubin Dipstick Negative (Negative); Urine Clarity Clear (Clear); Urine Urobilinogen Normal (Normal)
[2018-08-11 05:36] LABS: Amphetamine Urine VISTA POSITIVE (<1000 ng/mL); Barbiturate Urine VISTA NEGATIVE (< 200 ng/mL); Benzodiazepine Urine VISTA NEGATIVE (< 200 ng/mL); Cocaine Urine VISTA NEGATIVE (< 300 ng/mL); Ecstacy Urine VISTA NEGATIVE (< 500 ng/mL); Methadone Urine VISTA NEGATIVE (< 300 ng/mL); PCP Urine VISTA NEGATIVE (< 25 ng/mL); THC Urine VISTA NEGATIVE (< 50 ng/mL); Vista UDS pH Range 7
[2018-08-11 05:37] LABS: Osmolality, Urine 237 mOsm/KG
[2018-08-11 05:41] LABS: Urine Sodium 68 mmol/L (Not Establ.)
--- NOTE | 2018-08-11 05:55 | EKG12_ITS ---
Test Reason : AM EKG Blood Pressure : / mmHG Vent. Rate : 056 BPM Atrial Rate : 056 BPM P-R Int : 182 ms QRS Dur : 084 ms QT Int : 476 ms P-R-T Axes : 051 004 043 degrees QTc Int : 459 ms Sinus bradycardia Otherwise normal ECG Confirmed by CHARLENE SPEARS, JAZMYNE ([id number]), assignment editor KIEL OSEGUERA ([id number]) on 08/15/2018 4:05:43 PM Referred By: KELLY Confirmed By:JAZMYNE CHANG MD
[2018-08-11 06:05] LABS: Squamous Epithelial Cells - UA 0-5 SEEN /hpf (5-10)
[2018-08-11] MEDS: hydrALAZINE 25 MG Tablet PO ×2 (06:42→14:39)
[2018-08-11] MEDS: Levothyroxine 50 MCG Tablet PO (06:42)
[2018-08-11] MEDS: Aspirin E.C. 81 MG Tablet PO (08:14)
[2018-08-11] MEDS: Famotidine 20 MG Tablet PO (08:15)
[2018-08-11] MEDS: FLUoxetine 20 MG Capsule 40 MG PO (08:15)
[2018-08-11] MEDS: Losartan Potassium 100 MG Tablet PO (08:15)
[2018-08-11] MEDS: Enoxaparin 40 MG/0.4 ML Syringe SC (08:15)
[2018-08-11] MEDS: NIFEdipine 60 MG Tablet PO (08:15)
[2018-08-11] MEDS: OXcarbazepine 300 MG Tablet 900 MG PO (08:16)
[2018-08-11] MEDS: Ipratropium/Albuterol Sulfate 3 ML AMPUL.NEB INHALATION ×2 (08:23→12:54)
[2018-08-11 11:05] LABS: ALB/GLOB Ratio 1.2 RATIO (0.9-2.4); AST(SGOT) 7 U/L (15-37); Alanine Aminotransfer ALT/SGPT 20 U/L (13-56); Albumin, Serum 3.4 g/dL (3.2-5.0); Alkaline Phosphatase 91 U/L (45-117); Anion Gap 14 (5-15); BUN 9 mg/dL (7-18); BUN/Creat Ratio 11.8 RATIO (10-20); Calcium,Total 8.8 mg/dL (8.5-10.1); Chloride 94 mmol/L (98-107); Cholesterol 168 mg/dL (200); Creatinine, Serum 0.76 mg/dL (0.55-1.02); EST Glomerular Filtration Rate 84 mL/min (>60); Est Glom Filt Rate - Afr Amer 101 mL/min (>60); Estimated Creatinine Clearance 73.07 ml/min; Globulin 2.9 g/dL (2.2-4.2); Glucose 92 mg/dL (74-106); High Density Lipoprotein 54 mg/dL; Potassium 4.1 mmol/L (3.5-5.1); Protein, Total 6.3 g/dL (6.4-8.2); Sodium Level 127 mmol/L (136-145); Thyroid Stim Hormone (TSH) 1.23 uIU/mL (0.358-3.74); Triglycerides 170 mg/dL; Very Low Density Lipoprotein 34 mg/dL (5-40)
--- NOTE | 2018-08-11 14:26 | DCINST_ITS ---
- Discharge Diagnoses Current Active Problems: Current Active and Chronic Problems (Last Reviewed 11/08/17 @ 12:36 by Angelina Paredes) Chest pain (Acute) Hyponatremia (Acute) Hypokalemia (Acute) PAF (paroxysmal atrial fibrillation) (Acute) HTN (hypertension) (Chronic) HLD (hyperlipidemia) (Chronic) Hypothyroidism (Chronic) CKD (chronic kidney disease) stage 3, GFR 30-59 ml/min (Chronic) Migraine (Chronic) Asthma (Chronic) Tobacco use (Chronic) You will use the following diet at home:: Cardiac Your food should be the consistency of: Regular Your liquids should be the consistency of: Regular/Thin Discharge Activity: Return to Normal Activity Call your doctor if you observe: Fever of 101 or Higher, Coldness, Increased Pain, Shortness of breath, Dizziness, Fainting spells, Chest pain, Uncontrolled pain Allergies/Adverse Reactions: Allergies atropine sulfate [From ] Allergy (Verified 08/10/18 20:34) Hives codeine phosphate [From Tylenol-Codeine #3] Allergy (Verified 08/10/18 20:34) breathing problems divalproex sodium [From Depakote] Allergy (Verified 08/10/18 20:34) Unknown hydromorphone HCl [From Dilaudid] Allergy (Verified 08/10/18 20:34) facial blisters,itching hyoscyamine sulfate [From ] Allergy (Verified 08/10/18 20:34) Hives Iodinated Contrast- Oral and IV Dye [Iodinated Contrast Media - IV Dye] Allergy (Verified 08/10/18 20:34) breathing problems and my bp went up latex Allergy (Verified 08/10/18 20:34) Rash pantoprazole sodium [From Protonix] Allergy (Verified 08/10/18 20:34) Rash phenobarbital [From ] Allergy (Verified 08/10/18 20:34) Hives promethazine HCl [From Phenergan] Allergy (Verified 08/10/18 20:34) Anaphylaxis ramipril Allergy (Verified 08/10/18 20:34) Unknown scopolamine hydrobromide [From ] Allergy (Verified 08/10/18 20:34) Hives ziprasidone mesylate [From Geodon] Allergy (Verified 08/10/18 20:34) Unknown Sulfa (Sulfonamide Antibiotics) Adverse Reaction (Verified 08/10/18 20:34) Vomiting ziprasidone HCl [From Geodon] Adverse Reaction (Verified 08/10/18 20:34) tremors VIDODIN TUSS Allergy (Uncoded 08/10/18 20:34) Itching Medications to take at Discharge Albuterol Inhaler [Ventolin Hfa] 1 - 2 puff INHALATION Q6H PRN PRN 06/19/17 Losartan Potassium 100 mg PO DAILY 06/19/17 Nitroglycerin [Nitrostat] 0.4 mg SL PRN PRN 06/19/17 Levothyroxine Sodium 50 mcg PO DAILY 12/31/17 Fluticasone/Salmeterol [Advair 250-50 Diskus] 1 inhaler PO BID 02/14/18 NIFEdipine [Procardia Xl] 60 mg PO DAILY 02/14/18 Fluoxetine [Prozac] 40 mg PO DAILY 08/10/18 Oxcarbazepine [Trileptal] 900 mg PO DAILY 08/10/18 Acetaminophen [Tylenol Tablet] 650 mg PO Q6H PRN PRN tablet 08/11/18 Aspirin E.C. [Ecotrin] 81 mg PO DAILY@0800 #30 tablet 08/11/18 Famotidine [Pepcid] 20 mg PO BID #60 tablet 08/11/18 Hydroxyzine Pamoate [Vistaril] 50 mg PO Q6H PRN #30 capsule 08/11/18 Ipratropium/Albuterol Respimat [Combivent Respimat Inhal [place]] 1 puff INHALATION 4X/DAY #1 inhaler 08/11/18 hydrALAZINE [Apresoline] 50 mg PO TID #90 tablet 08/11/18 The following prescriptions were given: Aspirin E.C. [Ecotrin] 81 mg PO DAILY@0800 #30 tablet Famotidine [Pepcid] 20 mg PO BID #60 tablet Hydroxyzine Pamoate [Vistaril] 50 mg PO Q6H PRN #30 capsule PRN Reason: Anxiety hydrALAZINE [Apresoline] 50 mg PO TID #90 tablet Ipratropium/Albuterol Respimat [Combivent Respimat Inhal [place]] 1 puff INHALATION 4X/DAY #1 inhaler Primary Care Physician: Jay Cody MD [NON-STAFF] - Please follow up with your Primary Care Physician in: 1 week Test Results: Test results from this visit will be discussed in further detail at your follow- up appointment, if applicable. Proposed Discharge Date: 08/11/18
[2018-08-11] MEDS: 0.9% NaCl Peripheral Flush Adult/Peds IV (14:39)
--- NOTE | 2018-08-11 14:43 | DS.PCM_ITS ---
Discharge Date and Diagnosis - Problem List Patient Problems: Active and Suspected Problems (Last Reviewed 11/08/17 @ 12:36 by Angelina Paredes) Chest pain (Acute) Hyponatremia (Acute) Hypokalemia (Acute) PAF (paroxysmal atrial fibrillation) (Acute) Date of Admission: 08/10/18 - Primary Discharge Diagnosis Active and Suspected Problems (Last Reviewed 11/08/17 @ 12:36 by Angelina Paredes) Chest pain (Acute) Hyponatremia (Acute) Hypokalemia (Acute) PAF (paroxysmal atrial fibrillation) (Acute) - Secondary Discharge Diagnosis Chronic Problems (Last Reviewed 11/08/17 @ 12:36 by Angelina Paredes) HTN (hypertension) (Chronic) HLD (hyperlipidemia) (Chronic) Hypothyroidism (Chronic) CKD (chronic kidney disease) stage 3, GFR 30-59 ml/min (Chronic) Migraine (Chronic) Asthma (Chronic) Tobacco use (Chronic) Depression (Chronic) COPD, mild (Chronic) Schizophrenia (Chronic) Convulsion, 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 Chest pain x1 week and history of asthma and cervical cancer RADIATION DOSAGE (If Supplied By Facility): CTDIvol = ( 13.44 ) mGy, DLP = ( 513.82 ) mGycm TECHNIQUE: Transaxial imaging was performed without the administration of intravenous contrast material. Individualized dose optimization techniques were used for this CT. COMPARISON: Chest x-ray August 10, 2018 and CTA chest June 19, 2017 FINDINGS: Subsegmental atelectasis left base. Stable Pleural-based nodule left upper lobe. 3 to 4 mm on image #35. No further follow-up required. Calcified granuloma right lung base. There is no demonstrated pleural abnormality. Normal heart and pericardium. Normal mediastinum. Calcified hilar nodes noted bilaterally. Normal unenhanced pulmonary arteries. Normal aorta arch and descending thoracic aorta. Normal osseous structures. There is no demonstrated abnormality of the visualized upper abdomen. CT/Chest without Contrast IMPRESSION: Old granulomatous disease. No acute disease. Electronically Signed: Kal Clark MD at 22:56 EDT , Service support , CC: No Primary Care Physician; Bia Donovan MD ~ [employer]: Signed Operations: None Procedures: None Summary of Care Provided: Patient is a 53-year-old white female with known past medical questionable paroxysmal atrial fibrillation, obesity BMI 32.8, hypertension, hyperlipidemia, hypothyroidism, GERD, kidney disease stage III chronic, chronic hyponatremia baseline 130, with use of hydrochlorothiazide, anxiety, decrease oxygen ingestion and poor oral intake for 1 week's time. Patient also complaining of chest pain. Patient was placed in the hospital and had 3 sets of negative cardiac enzymes and EKGs. Patient already had 2- stress test in the last 13 months. Revealed above, patient feels much better but wishes something for anxiety. Patient's sodium has come up to 127, will give her a little bit more normal saline before discharge. Discussed patient's blood pressure medications will increase hydralazine discontinue hydrochlorothiazide hypokalemia has improved as well. Patient will be discharged after normal saline, have also discussed inhalers will give her Combivent as she seems to like this better than Ventolin. Chest Pain, Atypical w/ Nodular R Sided Infiltrates and R Flank Pain: 3's negative sets of cardiac enzymes and EKGs telemetry did not show anything CTA shows some nodules but no follow-up needed. Patient also had 2- stress test on the last 13 months and is currently chest pain-free we will continue home medications. Patient has probably underlying anxiety possibly causing these issues. Will go ahead and place patient on Vistaril to prevent further issues. UA was negative for any bacteria urine sodium was 68, patient was positive for methamphetamines unclear if this is a cross-reactivity with her psych medications. Acute on Chronic baseline 130, Appears Hypovolemic: Patient's initial sodium was 124 hyponatremic given 150 of normal saline overnight and has improved to approximately 127. Sodium urine was 68 will discontinue hydrochlorothiazide. Believe patient would improve with removal hydrochlorothiazide Hypokalemia: Patient was initially on potassium was 3.1, currently is 4.1 with supplementation. Resolved ? PAF: No episodes of A. fib noted. Patient already on beta-karen Hypertension: Will continue hydralazine but increase it to 50 mg p.o. daily continue losartan, Procardia, Anxiety and Depression/Bipolar Disorder/Schizophrenia: Maintain on home regimen prozac, trileptal. Chronic Asthma: We will give the patient Combivent continue home medications as needed albuterol Obesity: Weight loss and lifestyle changes encouraged. Tobacco Abuse: Encouraged cessation Hypothyroidism: Continue home synthroid regimen Chronic Kidney Disease Stage II/III: Stable GERD: Famotidine CODE STATUS full Medications reviewed with the patient. Risks, benefits, alternatives, side effects, potential complications and dangers of medications discussed. Patient wishes to utilize these agents despite risk. A signed medical consent/advisement form regarding narcotic medications and a side medication agreement are located in the patient's chart. Chart is dictated with wel[employer] production [employer] software. Errors may occur in dictation that may change providers meaning. This note was generated with [employer] dictation software. It may contain incorrect words, spelling, and punctuation that were not noted in checking the note before signing. Patient Problems: Active and Suspected Problems (Last Reviewed 11/08/17 @ 12:36 by Angelina Paredes) Chest pain (Acute) Hyponatremia (Acute) Hypokalemia (Acute) PAF (paroxysmal atrial fibrillation) (Acute) Subjective: Denies any chest pain feels much better wishes to go home. - Physical Exam General: Alert, Oriented x3, Cooperative HEENT: Atraumatic, PERRLA, EOMI, Normocephalic Oral: Moist Mucosa, No Gingival or Mucosal Lesions/ Ulcerations Neck: Supple, No JVD, Negative Carotid Bruits Lungs: Clear to auscultation, Normal air movement Cardiovascular: Regular rate, No murmurs Abdomen: Bowel Sounds Present, Soft, Non Tender Extremities: No edema, Capillary Refill Less than 3 Seconds Skin: No rashes, No breakdown Musculoskeletal: No Tenderness to Palpation of Joints or Extremities Neurological: Cranial nerves II-XII grossly intact Psych/Mental Status: Normal Affect, Appropriate Vital Signs Temp Pulse Resp BP Pulse Ox 98.4 F 60 22 H 133/57 H 97 08/11/18 07:58 08/11/18 12:54 08/11/18 12:54 08/11/18 07:58 08/11/18 08:23 Oxygen Flow Rate (L/min) 2 Oxygen Delivery Method Nasal Cannula Weight: 86.8 kg Body Mass Index (BMI) 32.8 Intake and Output for Last 24 Hours 08/09/18 08/10/18 08/11/18 23:59 23:59 23:59 Intake Total 1263 / 1263 Output Total 150 / 150 Balance 1113 / 1113 Laboratory Tests Past 24 Hrs 08/10/18 08/10/18 08/10/18 20:39 20:39 20:39 WBC 9.0 RBC 4.36 Hgb 13.4 Hct 38.3 MCV 87.8 MCH 30.7 MCHC 35.0 RDW 12.6 RDW Differential 40.6 Plt Count 255 MPV 9.9 Immature Gran % (Auto) 0.200 Neut % (Auto) 67.4 Lymph % (Auto) 20.5 [place] % (Auto) 9.8 Eos % (Auto) 2.0 Baso % (Auto) 0.1 Absolute Neuts (auto) 6.1 Absolute Lymphs (auto) 1.85 Total Counted Not Reportable D-Dimer Quant (PE/DVT) 0.43 Sodium 124 L Potassium 3.1 L Chloride 91 L Carbon Dioxide 25.0 Anion Gap 8 BUN 11 Creatinine 0.89 Estim Creat Clear Calc 62.40 Est GFR (MDRD) Af Amer 85 Est GFR (MDRD) Non-Af 71 BUN/Creatinine Ratio 12.4 Glucose 125 H Calcium 8.7 Magnesium Total Bilirubin 0.30 Direct Bilirubin 0.08 AST 11 L ALT 20 Alkaline Phosphatase 96 Troponin I < 0.015 Total Protein 7.0 Albumin 3.8 Globulin 3.2 Albumin/Globulin Ratio Triglycerides Cholesterol LDL Cholesterol VLDL Cholesterol HDL Cholesterol Lipase 69 L TSH Free T4 Urine Color Urine Clarity Urine pH Ur Specific [place] Urine Protein Urine Glucose (UA) Urine Ketones Urine Occult Blood Urine Nitrite Urine Bilirubin Urine Urobilinogen Ur Leukocyte Esterase Urine RBC Urine WBC Ur Squamous Epith Cells Urine Bacteria Urine Mucus Urine Osmolality Ur Random Sodium Urine Creatinine Urine Opiates Screen Urine Methadone Screen Ur Barbiturates Screen Ur Phencyclidine Scrn Ur Amphetamines Screen U Methamphetamin-MDMA U Benzodiazepines Scrn Urine Cocaine Screen U Cannabinoids Screen Ur Drug Screen Comment 08/10/18 08/11/18 08/11/18 22:35 02:20 02:20 WBC 7.6 RBC 4.18 L Hgb 12.7 Hct 37.1 MCV 88.8 MCH 30.4 MCHC 34.2 RDW 12.6 RDW Differential 40.4 Plt Count 212 MPV 10.1 Immature Gran % (Auto) Neut % (Auto) Lymph % (Auto) [place] % (Auto) Eos % (Auto) Baso % (Auto) Absolute Neuts (auto) Absolute Lymphs (auto) Total Counted D-Dimer Quant (PE/DVT) Sodium Potassium Chloride Carbon Dioxide Anion Gap BUN Creatinine Estim Creat Clear Calc Est GFR (MDRD) Af Amer Est GFR (MDRD) Non-Af BUN/Creatinine Ratio Glucose Calcium Magnesium 1.8 Total Bilirubin Direct Bilirubin AST ALT Alkaline Phosphatase Troponin I < 0.015 < 0.015 Total Protein Albumin Globulin Albumin/Globulin Ratio Triglycerides Cholesterol LDL Cholesterol VLDL Cholesterol HDL Cholesterol Lipase TSH Free T4 0.82 Urine Color Urine Clarity Urine pH Ur Specific [place] Urine Protein Urine Glucose (UA) Urine Ketones Urine Occult Blood Urine Nitrite Urine Bilirubin Urine Urobilinogen Ur Leukocyte Esterase Urine RBC Urine WBC Ur Squamous Epith Cells Urine Bacteria Urine Mucus Urine Osmolality Ur Random Sodium Urine Creatinine Urine Opiates Screen Urine Methadone Screen Ur Barbiturates Screen Ur Phencyclidine Scrn Ur Amphetamines Screen U Methamphetamin-MDMA U Benzodiazepines Scrn Urine Cocaine Screen U Cannabinoids Screen Ur Drug Screen Comment 08/11/18 08/11/18 08/11/18 02:20 04:25 04:25 WBC RBC Hgb Hct MCV MCH MCHC RDW RDW Differential Plt Count MPV Immature Gran % (Auto) Neut % (Auto) Lymph % (Auto) [place] % (Auto) Eos % (Auto) Baso % (Auto) Absolute Neuts (auto) Absolute Lymphs (auto) Total Counted D-Dimer Quant (PE/DVT) Sodium 127 L Potassium 4.1 Chloride 94 L Carbon Dioxide 19.0 L Anion Gap 14 BUN 9 Creatinine 0.76 Estim Creat Clear Calc 73.07 Est GFR (MDRD) Af Amer 101 Est GFR (MDRD) Non-Af 84 BUN/Creatinine Ratio 11.8 Glucose 92 Calcium 8.8 Magnesium Total Bilirubin 0.30 Direct Bilirubin AST 7 L ALT 20 Alkaline Phosphatase 91 Troponin I Total Protein 6.3 L Albumin 3.4 Globulin 2.9 Albumin/Globulin Ratio 1.2 Triglycerides 170 Cholesterol 168 LDL Cholesterol 80 VLDL Cholesterol 34 HDL Cholesterol 54 Lipase TSH 1.23 Free T4 Urine Color Yellow Urine Clarity Clear Urine pH 7.0 Ur Specific [place] 1.010 Urine Protein Negative Urine Glucose (UA) Normal Urine Ketones Negative Urine Occult Blood Negative Urine Nitrite Negative Urine Bilirubin Negative Urine Urobilinogen Normal Ur Leukocyte Esterase Negative Urine RBC 0 SEEN Urine WBC 0 SEEN Ur Squamous Epith Cells 0-5 SEEN Urine Bacteria 0 SEEN Urine Mucus 0 SEEN Urine Osmolality Ur Random Sodium Urine Creatinine Urine Opiates Screen NEGATIVE Urine Methadone Screen NEGATIVE Ur Barbiturates Screen NEGATIVE Ur Phencyclidine Scrn NEGATIVE Ur Amphetamines Screen POSITIVE H U Methamphetamin-MDMA NEGATIVE U Benzodiazepines Scrn NEGATIVE Urine Cocaine Screen NEGATIVE U Cannabinoids Screen NEGATIVE Ur Drug Screen Comment 08/11/18 08/11/18 08/11/18 04:25 04:25 04:25 WBC RBC Hgb Hct MCV MCH MCHC RDW RDW Differential Plt Count MPV Immature Gran % (Auto) Neut % (Auto) Lymph % (Auto) [place] % (Auto) Eos % (Auto) Baso % (Auto) Absolute Neuts (auto) Absolute Lymphs (auto) Total Counted D-Dimer Quant (PE/DVT) Sodium Potassium Chloride Carbon Dioxide Anion Gap BUN Creatinine Estim Creat Clear Calc Est GFR (MDRD) Af Amer Est GFR (MDRD) Non-Af BUN/Creatinine Ratio Glucose Calcium Magnesium Total Bilirubin Direct Bilirubin AST ALT Alkaline Phosphatase Troponin I Total Protein Albumin Globulin Albumin/Globulin Ratio Triglycerides Cholesterol LDL Cholesterol VLDL Cholesterol HDL Cholesterol Lipase TSH Free T4 Urine Color Urine Clarity Urine pH Ur Specific [place] Urine Protein Urine Glucose (UA) Urine Ketones Urine Occult Blood Urine Nitrite Urine Bilirubin Urine Urobilinogen Ur Leukocyte Esterase Urine RBC Urine WBC Ur Squamous Epith Cells Urine Bacteria Urine Mucus Urine Osmolality 237 Ur Random Sodium 68 Urine Creatinine 26.70 Urine Opiates Screen Urine Methadone Screen Ur Barbiturates Screen Ur Phencyclidine Scrn Ur Amphetamines Screen U Methamphetamin-MDMA U Benzodiazepines Scrn Urine Cocaine Screen U Cannabinoids Screen Ur Drug Screen Comment Discharge Activity: Return to Normal Activity Call your doctor if you observe: Fever of 101 or Higher, Coldness, Increased Pain, Shortness of breath, Dizziness, Fainting spells, Chest pain, Uncontrolled pain Home Medications: Medications to take at Discharge Albuterol Inhaler [Ventolin Hfa] 1 - 2 puff INHALATION Q6H PRN PRN 06/19/17 Losartan Potassium 100 mg PO DAILY 06/19/17 Nitroglycerin [Nitrostat] 0.4 mg SL PRN PRN 06/19/17 Levothyroxine Sodium 50 mcg PO DAILY 12/31/17 Fluticasone/Salmeterol [Advair 250-50 Diskus] 1 inhaler PO BID 02/14/18 NIFEdipine [Procardia Xl] 60 mg PO DAILY 02/14/18 Fluoxetine [Prozac] 40 mg PO DAILY 08/10/18 Oxcarbazepine [Trileptal] 900 mg PO DAILY 08/10/18 Acetaminophen [Tylenol Tablet] 650 mg PO Q6H PRN PRN tablet 08/11/18 Aspirin E.C. [Ecotrin] 81 mg PO DAILY@0800 #30 tablet 08/11/18 Famotidine [Pepcid] 20 mg PO BID #60 tablet 08/11/18 Hydroxyzine Pamoate [Vistaril] 50 mg PO Q6H PRN #30 capsule 08/11/18 Ipratropium/Albuterol Respimat [Combivent Respimat Inhal [place]] 1 puff INHALATION 4X/DAY #1 inhaler 08/11/18 hydrALAZINE [Apresoline] 50 mg PO TID #90 tablet 08/11/18 Following Prescrptions Were Given to Patient: Aspirin E.C. [Ecotrin] 81 mg PO DAILY@0800 #30 tablet Famotidine [Pepcid] 20 mg PO BID #60 tablet Hydroxyzine Pamoate [Vistaril] 50 mg PO Q6H PRN #30 capsule PRN Reason: Anxiety hydrALAZINE [Apresoline] 50 mg PO TID #90 tablet Ipratropium/Albuterol Respimat [Combivent Respimat Inhal [place]] 1 puff INHALATION 4X/DAY #1 inhaler Primary Care Physician: Jay Cody MD [NON-STAFF] - Please follow up with your Primary Care Physician in: 1 week Disposition: Home Minutes spent on discharge:: 35 Patient Condition:: Good Medical Necessity - Tobacco Use Smoking Status: Current every day smoker Tobacco Use: Cigarettes Meaningful Use Info Meaningful Use Diagnoses (Choose all that apply): None applicable Code Visit Inpatient E&M: 23322 Disch Hosp
== END 2018-08-11 14:25 | disposition home or self-care (01) ==
LOC: ED 20:58 → PCU 22:19
PROVIDERS: Admitting Provider Family Medicine; Emergency Provider Emergency Medicine; Visit Provider Internal Medicine
DX: R07.89 Other chest pain (principal); J44.9 Chronic obstructive pulmonary disease, unspecified; F20.9 Schizophrenia, unspecified; F31.9 Bipolar disorder, unspecified; E87.1 Hypo-osmolality and hyponatremia; E87.6 Hypokalemia; I48.0 Paroxysmal atrial fibrillation; E78.5 Hyperlipidemia, unspecified; E03.9 Hypothyroidism, unspecified; I12.9 Hypertensive chronic kidney disease with stage 1 through stage 4 chronic kidney disease, or unspecified chronic kidney disease; N18.3 Chronic kidney disease, stage 3 (moderate); G43.909 Migraine, unspecified, not intractable, without status migrainosus; E66.9 Obesity, unspecified; Z68.32 Body mass index [BMI] 32.0-32.9, adult; Z71.3 Dietary counseling and surveillance; I16.9 Hypertensive crisis, unspecified; K21.9 Gastro-esophageal reflux disease without esophagitis; F41.9 Anxiety disorder, unspecified; Z79.899 Other long term (current) drug therapy; F17.210 Nicotine dependence, cigarettes, uncomplicated
CPT/HCPCS: 36415; 71045; 71250; 80048; 80053; 80061; 80076; 80307; 81001; 82570; 83690; 83735; 83935; 84300; 84439; 84443; 84484; 85025; 85027; 85379; 93005; 94640; 96361; 96372; 96374; 97802; 99218; 99285; 99406; J7030; J7040; A4216; G0378

== ENCOUNTER 2018-10-21 23:58 | Emergency (ER) | payer MEDICAID, SELFPAY ==
[2018-10-21 23:59] VITALS: BP 150/109; PULSE 102; RESP 16; TEMP 36.4; O2SAT 97; BMI 32.2
--- NOTE | 2018-10-22 00:10 | RAD_ITS ---
HISTORY: NKI C/O RT SHOULDER PAIN COMPARISON: None FINDINGS: Right shoulder 3 views No fracture, dislocation, or bony abnormality. The right glenohumeral relationship appears normal. The right AC joint is preserved. No soft tissue calcifications. RAD/Shoulder min 2 Views IMPRESSION: Normal exam, right shoulder. at 0133 Reported and signed by: Alexey Herzog MD Electronically Signed: Alexey Herzog, at 1:31 EST Tel , Service support ,
--- NOTE | 2018-10-22 00:13 | ED.VISSUMM ---
- ER Visit Summary Date of Service: 10/22/18 Chief Complaint: Right shoulder injury History of Present Illness: The patient is a 53 F presents to the emergency department right shoulder pain. Patient states that she was lifting heavy items and try to carry them up and down stairs. She states she was carrying an end table. She felt something pop in her right shoulder. This happened yesterday. Since then, she had rather significant pain with any range of motion. She denies any chest pain shortness of breath. She did not fall. Physical Examination: Exam is relatively unremarkable. There is no deformity of the shoulder. Pulses are normal. She has diminished range of motion secondary to pain. There is no erythema or edema. There is no pain at the clavicle. There is no pain in the neck. Test Results: [] Emergency Department Course and Treatment: The patient presents with right shoulder injury. She has no gross laxity. She is neurovascularly intact. She has had no chest pain or dyspnea. I did obtain plain films of the shoulder. These are unremarkable. I do feel that she likely has a ligamentous strain. She will be placed in a sling for comfort, but was counseled on range of motion exercises. She will be given a short course of analgesics. She will be discharged home. Treatment Plan: [] Disposition: [] Impression: Urge 1. Right shoulder strain This note was generated with [employer] dictation software. It may contain incorrect words, spelling, and punctuation that were not noted in review of the chart prior to signing ED Disposition - Plan for ED Patient: Disposition: Home or Assisted Living Chief Complaint: Upper Extremity Injury Instructions: ED Sprain Shoulder Referrals: Care Physician,No Primary [Primary Care Provider] -
[2018-10-22] MEDS: HYDROcodone Bitartrate/Apap 5/325 Tablet PO ×2 (00:15→00:40)
[2018-10-22 00:42] VITALS: BP 112/71; PULSE 69; RESP 17; O2SAT 95
== END 2018-10-22 00:45 | disposition home or self-care (01) ==
LOC: ED 10-22 00:27
PROVIDERS: Emergency Provider Emergency Medicine
DX: S46.911A Strain of unspecified muscle, fascia and tendon at shoulder and upper arm level, right arm, initial encounter (principal); X50.0XXA Overexertion from strenuous movement or load, initial encounter; Y93.9 Activity, unspecified; Y92.9 Unspecified place or not applicable; J44.9 Chronic obstructive pulmonary disease, unspecified; I10 Essential (primary) hypertension; I48.0 Paroxysmal atrial fibrillation; Z79.82 Long term (current) use of aspirin; Z79.899 Other long term (current) drug therapy; Z72.0 Tobacco use
CPT/HCPCS: 73030; 99283

== ENCOUNTER 2018-12-07 20:14 | Emergency (ER) | payer MEDICAID, SELFPAY ==
[2018-12-07 20:16] VITALS: BP 195/83; PULSE 91; RESP 22; TEMP 36.6; O2SAT 98; BMI 32.5
[2018-12-07 20:23] VITALS: BP 189/96; PULSE 86; RESP 16; O2SAT 99
--- NOTE | 2018-12-07 20:32 | ED.VISSUMM ---
- ER Visit Summary Date of Service: 12/07/18 Chief Complaint: Rash History of Present Illness: The patient is a 53 F with a rash over her left antecubital region and fourth third and second digits of her right hand. This is where she placed the tape. It hurt when she removed it but she also developed an itchy rash. Physical Examination: There is an erythematous blanching rash over the regions were covered with tape. Her lungs are clear her voice is normal she has no stridor she has no airway compromise. Emergency Department Course and Treatment: Patient takes Vistaril at home, she is told to take this as needed, I will give her hydrocortisone cream. Discharge stable condition Impression: Contact dermatitis This note was generated with [employer] dictation software. It may contain incorrect words, spelling, and punctuation that were not noted in review of the chart prior to signing ED Disposition - Plan for ED Patient: Disposition: Home or Assisted Living Instructions: ED Allergic Reaction Local Other Prescriptions: Hydrocortisone 2.5% Crm [Hytone] 1 applic TOPICAL BID PRN PRN #1 tube PRN Reason: Itching Referrals: Care Physician,No Primary [Primary Care Provider] - 3-5 Days
== END 2018-12-07 20:48 | disposition home or self-care (01) ==
LOC: ED 20:42
PROVIDERS: Emergency Provider Emergency Medicine; Family Provider Nurse Practitioner Primary Care; PCP Nurse Practitioner Primary Care
DX: L25.9 Unspecified contact dermatitis, unspecified cause (principal); I10 Essential (primary) hypertension; E78.00 Pure hypercholesterolemia, unspecified; Z79.51 Long term (current) use of inhaled steroids; Z79.82 Long term (current) use of aspirin; Z79.899 Other long term (current) drug therapy
CPT/HCPCS: 99282

== ENCOUNTER 2018-12-17 23:09 | Emergency (ER) | payer MEDICAID, SELFPAY ==
[2018-12-17 23:11] VITALS: BP 104/48; PULSE 74; RESP 16; TEMP 36.4; O2SAT 96; BMI 34.5
[2018-12-17 23:48] VITALS: O2SAT 92
--- NOTE | 2018-12-17 23:49 | EKG12_ITS ---
Test Reason : Blood Pressure : / mmHG Vent. Rate : 066 BPM Atrial Rate : 066 BPM P-R Int : 180 ms QRS Dur : 084 ms QT Int : 436 ms P-R-T Axes : 053 -17 043 degrees QTc Int : 457 ms Normal sinus rhythm Normal ECG Confirmed by NASIR SAAVEDRA ([id number]), video editor KIEL OSEGUERA ([id number]) on 12/20/2018 1:14:11 PM Referred By: TL Confirmed By:NASIR SAAVEDRA
--- NOTE | 2018-12-17 23:51 | ED.VISSUMM ---
- ER Visit Summary Date of Service: 12/17/18 Chief Complaint: Shortness of breath, nausea History of Present Illness: The patient is a 53 F presents pending increased shortness of breath this evening chronic dry cough. Tobacco history, COPD and asthma. She follows pulmonology Dr. Flores at [facility], she is been having symptoms since January of last year. Not on current oxygen however states of the follow-up on . Concern noting a low oxygen level on her meter this evening. States chest pain with cough today. Nausea symptoms without vomiting or diarrhea. History of paroxysmal atrial fibrillation only on aspirin therapy. No PE risk factors. No other complaints. EMS EKG evaluated as normal sinus rhythm rate of 68. Physical Examination: General: Alert and oriented ?3, no acute distress HEENT: Normocephalic, atraumatic. Moist mucosa membranes Neck: supple, nontender. Cardiovascular: Regular rate and rhythm, no murmurs Respiratory: Normal breath sounds, symmetric, no distress Abdomen: Soft, nontender, nondistended Extremities: Nontender, no edema, pulses intact ?4 Neuro: no focal neurological deficits. Test Results: EKG sinus rate of 66, no ST or T wave changes. Hemoglobin 11.9, creatinine 1.03. Troponin negative. Chest x-ray: Declined Emergency Department Course and Treatment: Patient had concerns for low pulse ox, pulse ox is been stable on room air. Reports atypical chest symptoms EKG cardiac enzymes negative. She declined a chest x-ray reporting she had one day at PCPs office. She had normal lung sounds. Basic labs are stable she given Zofran fluids for her symptoms. She is ambulated pulse ox stable at 93%. MISAEL score is a 1, heart score is 3. Discussed atypical symptoms. She does have chronic dyspnea for the last 10 months. Discussed with patient: Her dressing machine operator for earlier follow-up in the if needed. Signs and symptoms discussed return. All questions were answered Treatment Plan: [] Disposition: Discharge Impression: 1. Atypical chest pain 2. Dyspnea This note was generated with [employer] software. It may contain incorrect words, spelling, and punctuation that were not noted in review of the chart prior to signing ED Disposition - Plan for ED Patient: Disposition: Home or Assisted Living Diagnosis: Atypical chest pain, Dyspnea Instructions: ED Chest Pain Atypical Unkn Cause, ED Dyspnea Shortness of Breath Referrals: Kenyetta Mcfadden, DEBRA-C [Primary Care Provider] - Additional Instructions: Pulse ox stable in ED. Follow up with your dressing machine operator, Dr. flores.
[2018-12-18 00:39] LABS: Absolute Lymphocyte Count 1.23 X10^3/ul (0.83-4.51); Absolute Neutrophil Count 3.8 X10^3/uL (2.0-7.7); Basophil# 0.02 X10^3/uL; Basophil% 0.3 % (0-1); Eosinophil# 0.23 X10^3/uL; Eosinophils% 3.9 % (0-5); Hematocrit 36.5 % (37-47); Hemoglobin 11.9 g/dl (12.0-15.0); Lymphocyte # 1.23 X10^3/ul (4.0); Lymphocyte % 20.6 % (19-41); Mean Corp Hgb Conc 32.6 g/gl (32-36); Mean Corpuscular Hgb 29.8 pg (27.0-32.0); Mean Corpuscular Volume 91.5 fL (81-99); Mean Platelet Vol. 10.3 fl (6.2-12.0); Monocyte# 0.64 X10^3/uL; Monocyte% 10.7 % (0-10); Neutrophil # 3.82 X10^3/uL (2.7-7.7); Neutrophil % 64.2 % (47-70); Platelet Count 274 K/mm3 (150-450); Red Blood Count 3.99 M/mm3 (4.2-5.4)
[2018-12-18 00:46] LABS: POSITIVE COUNT NO; POSITIVE DIFFERENTIAL NO; POSITIVE MORPHOLOGY NO
[2018-12-18 01:00] LABS: Anion Gap 7 (5-15); BUN 29 mg/dL (7-18); BUN/Creat Ratio 28.2 RATIO (10-20); Calcium,Total 8.2 mg/dL (8.5-10.1); Chloride 108 mmol/L (98-107); Creatinine, Serum 1.03 mg/dL (0.55-1.02); EST Glomerular Filtration Rate 59 mL/min (>60); Est Glom Filt Rate - Afr Amer 72 mL/min (>60); Estimated Creatinine Clearance 53.92 ml/min; Glucose 117 mg/dL (74-106); Potassium 4.4 mmol/L (3.5-5.1); Sodium Level 139 mmol/L (136-145)
[2018-12-18 01:09] VITALS: BP 106/47; PULSE 64; RESP 18; O2SAT 93
[2018-12-18 01:16] VITALS: O2SAT 96
== END 2018-12-18 02:07 | disposition home or self-care (01) ==
PROVIDERS: Emergency Provider Emergency Medicine; Family Provider Nurse Practitioner Primary Care; PCP Nurse Practitioner Primary Care
DX: R07.89 Other chest pain (principal); R06.00 Dyspnea, unspecified; I12.9 Hypertensive chronic kidney disease with stage 1 through stage 4 chronic kidney disease, or unspecified chronic kidney disease; N18.9 Chronic kidney disease, unspecified; I48.0 Paroxysmal atrial fibrillation; J44.9 Chronic obstructive pulmonary disease, unspecified; K21.9 Gastro-esophageal reflux disease without esophagitis; Z72.0 Tobacco use; Z79.82 Long term (current) use of aspirin; Z79.899 Other long term (current) drug therapy
CPT/HCPCS: 80048; 84484; 85025; 93005; 99285; J7040; A4216

== ENCOUNTER → 2018-12-23 06:10 | Outpatient (CLI) | payer MEDICAID, SELFPAY ==
[2018-12-07 20:16] VITALS: BMI 32.5
[2018-12-17 23:11] VITALS: BMI 34.5
--- NOTE | 2018-12-23 19:21 | STRESSREP ---
Stress Test Report Pharmacologic myocardial perfusion stress test. 53-year-old lady with a history of chest pain. Stress protocol: Resting EKG demonstrates normal sinus rhythm with a rate of 65 bpm normal intervals are noted resting blood pressure 142/82 mmHg. 0.4 mg of regadenoson was infused per usual protocol followed by rapid intravenous saline flush injection continuous EKG monitoring was performed. The maximum heart rate attained was 77 bpm which was 46% of maximum predicted heart rate maximum workload was 1 metabolic equivalent. At rest there were no ST or T wave changes noted suggest abnormal flow reserve at peak infusion nonspecific ST-T wave changes were noted. Resting blood pressure 142/82 with a final blood pressure 138/80 mmHg. Myocardial perfusion protocol. 11.8 mCi of technetium 99m sestamibi was injected at rest. 0.4 mg of regadenoson was infused per usual protocol peak infusion 34.1 mCi of technetium 99m sestamibi was injected stress images were obtained stress and rest images were reconstructed and compared in the short axis vertical long horizontal long axis. Gated images were also obtained for Perfusion SPECT analysis: Review of the stress images demonstrate normal uptake of tracer noted in all areas of the myocardium. The resting images similarly demonstrate normal uptake of tracer noted in all areas of the myocardium. No areas of reversibility are noted suggest ischemia no previous infarct is noted. Gated SPECT analysis: The gated ejection fraction is noted to be 69%. Conclusion: Normal pharmacologic myocardial perfusion stress test. Preserved ejection fraction.
== END ==
PROVIDERS: Family Provider Nurse Practitioner Primary Care; PCP Nurse Practitioner Primary Care; Referring Provider Internal Medicine Cardiovascular Disease; Visit Provider Internal Medicine Cardiovascular Disease
DX: I35.1 Nonrheumatic aortic (valve) insufficiency (principal); R07.9 Chest pain, unspecified
CPT/HCPCS: 78452; 93017; A9500; A4216; J2785

== ENCOUNTER → 2018-12-31 13:46 | Outpatient (CLI) | payer MEDICAID, SELFPAY ==
[2018-12-17 23:11] VITALS: BMI 34.5
--- NOTE | 2018-12-31 13:48 | ECHOD_ITS ---
Reason For Study: SEVERE AI Procedure This was a 2D Doppler, Color Flow transthoracic echocardiogram. Exam performed in department. Left Ventricle Normal LV size. Left ventricular systolic function is normal. The estimated ejection fraction is 60 %. No evidence for diastolic dysfunction. No regional wall motion abnormalities noted. Right Ventricle Normal RV size. Normal systolic function. Atria Normal left atrium. Normal right atrium. Patent foramen ovale. Mitral Valve Bileaflet diffuse mitral valve thickening. Mild (1+) eccentric mitral valve insufficiency. Tricuspid Valve Normal tricuspid valve. Mild (1+) tricuspid valve insufficiency. Pulmonary artery systolic pressure is 28 mmHg. Aortic Valve Normal aortic valve. Moderate (2+) aortic valve insufficiency. Pulmonic Valve Normal pulmonic valve. Great Vessels Normal aortic root. The pulmonary artery is normal size. Normal inferior vena cava. Pericardium/Pleural No pericardial effusion. Medication 22 gauge I.V. with prn adaptor inserted into right arm. Performed a rapid injection of agitated mix of 9 cc saline and 1cc air to assess for atrial septal defect. Positive bubble study. MMode/2D Measurements & Calculations LVIDd: 4.8 cm IVSd: 1.3 cm LVOT diam: 2.3 cm LVIDs: 3.3 cm LVPWd: 1.1 cm RVDd: 3.1 cm FS: 31.8 % LVOT area: 4.1 cm2 Ao root diam: 3.8 cm LAV(MOD-bp): 74.0 ml LA A4 area: 21.2 cm2 LAV(MOD-bp) Indexed: 37.8 ml/m2 LAV(MOD-sp2): 74.8 ml LAV(MOD-sp4): 64.4 ml LA dimension(2D): 3.5 cm RA A4 area: 19.1 cm2 Time Measurements MV dec time: 0.22 sec Doppler Measurements & Calculations MV E max govind: 84.6 cm/sec Lat Peak E' Govind: 10.3 cm/sec Med Peak E' Govind: 7.9 cm/sec MV A max govind: 79.3 cm/sec E/E' lat: 8.2 E/E' med: 10.7 MV E/A: 1.1 Ao V2 max: 194.6 cm/sec AI max govind: 504.2 cm/sec LV V1 max: 180.5 cm/sec Ao max P.2 mmHg AI max P.7 mmHg LV V1 max P.0 mmHg YAJAIRA(V,D): 3.8 cm2 AI dec slope: 291.4 cm/sec2 AI P1/2t: 506.8 msec PA V2 max: 120.7 cm/sec PI end-d govind: 90.1 cm/sec TR max govind: 245.8 cm/sec TR max P.2 mmHg Interpretation Summary Normal LV size. Left ventricular systolic function is normal. The estimated ejection fraction is 60 %. No evidence for diastolic dysfunction. Patent foramen ovale. Moderate (2+) aortic valve insufficiency. Mild (1+) eccentric mitral valve insufficiency. Ordering Physician: MARGARETH RODRIGUEZ Referring Physician: ALFRED MCGEE Performed By: Brianna Cotter RDCS, RVT
== END ==
PROVIDERS: Family Provider Nurse Practitioner Primary Care; PCP Nurse Practitioner Primary Care; Referring Provider Internal Medicine Cardiovascular Disease; Visit Provider Internal Medicine Cardiovascular Disease
DX: I35.1 Nonrheumatic aortic (valve) insufficiency (principal)
CPT/HCPCS: 93306; A4216

== ENCOUNTER → 2019-01-13 10:37 | Outpatient (CLI) | payer MEDICAID, SELFPAY ==
[2018-12-17 23:11] VITALS: BMI 34.5
[2019-01-13 12:05] LABS: Anion Gap 7 (5-15); BUN 23 mg/dL (7-18); BUN/Creat Ratio 23.8 RATIO (10-20); Calcium,Total 8.5 mg/dL (8.5-10.1); Chloride 107 mmol/L (98-107); Creatinine, Serum 0.97 mg/dL (0.55-1.02); EST Glomerular Filtration Rate 64 mL/min (>60); Est Glom Filt Rate - Afr Amer 77 mL/min (>60); Glucose 113 mg/dL (74-106); Potassium 3.8 mmol/L (3.5-5.1); Sodium Level 139 mmol/L (136-145)
[2019-01-13 12:13] LABS: BNP,B-Type NATRIURETIC PEPTIDE 9.4 pg/mL (0-100)
== END ==
PROVIDERS: Family Provider Nurse Practitioner Primary Care; PCP Nurse Practitioner Primary Care; Referring Provider Internal Medicine Nephrology; Visit Provider Internal Medicine Nephrology
DX: I12.9 Hypertensive chronic kidney disease with stage 1 through stage 4 chronic kidney disease, or unspecified chronic kidney disease (principal); N18.3 Chronic kidney disease, stage 3 (moderate)
CPT/HCPCS: 36415; 80048; 83880

== ENCOUNTER 2019-02-24 17:59 | Emergency (ER) | payer MEDICAID, SELFPAY ==
[2019-02-24 18:02] VITALS: BP 210/85; PULSE 96; RESP 16; TEMP 36.3; O2SAT 99; BMI 32.5
--- NOTE | 2019-02-24 18:17 | EKG12_ITS ---
Test Reason : HYPOTENSION Blood Pressure : / mmHG Vent. Rate : 089 BPM Atrial Rate : 089 BPM P-R Int : 168 ms QRS Dur : 076 ms QT Int : 368 ms P-R-T Axes : 057 003 052 degrees QTc Int : 447 ms Normal sinus rhythm Normal ECG Confirmed by CHARLENE SPEARS, JAZMYNE ([id number]), editorial assistant ANAND HSIEH ([id number]) on 02/26/2019 1:32:30 PM Referred By: JOSE LUIS Confirmed By:JAZMYNE CHANG MD
--- NOTE | 2019-02-24 19:01 | RAD_ITS ---
STUDY: X-RAY CHEST REASON FOR EXAM: Female, 54 years old. Chest pain and congestion. History of hypertension and asthma. TECHNIQUE: Single AP portable upright view of the chest. COMPARISON: Portable AP upright chest x-ray August 10, 2018. CT chest of the same day not available for review at the time of this dictation. FINDINGS: Very small nodular density inferior right base just above the diaphragm is unchanged. The lungs are otherwise clear and expanded. There is no demonstrated pleural abnormality. Normal size heart. Normal mediastinum and rosita. Normal visualized pulmonary arteries. Normal visualized aortic arch and descending thoracic aorta. Normal visualized thoracic spine. Normal visualized ribs, clavicles, and shoulders. There is no demonstrated abnormality of the visualized soft tissue structures of the upper abdomen. RAD/Chest 1 View (Portable) IMPRESSION: No acute cardiopulmonary disease. Electronically Signed: Cody Peñaloza MD at 19:21 EDT , Service support ,
[2019-02-24 19:47] LABS: Absolute Lymphocyte Count 1.65 X10^3/ul (0.83-4.51); Absolute Neutrophil Count 3.3 X10^3/uL (2.0-7.7); Basophil# 0.01 X10^3/uL; Basophil% 0.2 % (0-1); Eosinophils% 3.6 % (0-5); Hematocrit 40.6 % (37-47); Hemoglobin 14.3 g/dl (12.0-15.0); Lymphocyte # 1.65 X10^3/ul (4.0); Lymphocyte % 29.4 % (19-41); Mean Corp Hgb Conc 35.2 g/gl (32-36); Mean Corpuscular Hgb 30.3 pg (27.0-32.0); Mean Platelet Vol. 9.9 fl (6.2-12.0); Monocyte# 0.49 X10^3/uL; Monocyte% 8.7 % (0-10); Neutrophil # 3.26 X10^3/uL (2.7-7.7); Neutrophil % 57.9 % (47-70); Platelet Count 260 K/mm3 (150-450); RBC Distribution Width CV 12.6 % (11.6-14.6); RBC Distribution Width SD 40.3 fl (35.1-43.9); Red Blood Count 4.72 M/mm3 (4.2-5.4); White Blood Count 5.6 K/mm3 (4.4-11.0)
[2019-02-24 19:48] LABS: POSITIVE COUNT NO; POSITIVE DIFFERENTIAL NO; POSITIVE MORPHOLOGY NO
--- NOTE | 2019-02-24 20:01 | CM.ED ---
Social Work Assessment Referral Date: 02/24/19 Date of Assessment: 02/24/19 Informant: NURSEZENY Reason for Consult: FINANCIAL, PER EMS- NO ELECTRIC, HEAT, RUNNING WATER, FOOD OR MONEY. Information obtained from: NURSING AND PATIENT Living Arrangements: PATIENT LIVES HOME WITH BROTHER, TIMBO ÁLVAREZ AND EX-BOYFRIEND, LEIA CHILDRESS. PATIENT REPORTS SHE IS THE ONE WHO PAYS THE RENT AND IS UNABLE TO GET BROTHER AND EX OUT OF THE HOME. DME: SHOWER CHAIR. PCP: DR. MCGEE Employment/Financial: DISABLED, LIMITED INCOME Supports: PATIENT REPORTS LIMITED SUPPORT Social/Family Stressors: PATIENT STATES HER BROTHER AND EX DO NOT ASSIST WITH NEEDS IN THE HOME. PATIENT STATES IS UNABLE TO KICK THEM OUT OF THE HOME. PATIENT STATES EVEN IF SHE COULD AFFORD IT, REFUSES TO TURN ON ELECTRIC, HEAT OR WATER. PATIENT STATES WHEN DOES GET FOOD FROM THE LOCAL FOOD PANTRIES, BROTHER AND EX EAT ALL THE FOOD. PATIENT REPORTS IS LEGALLY BLIND AND UNABLE TO DRIVE. EDUCATION PROVIDED ON TRANSPORT THROUGH HER MEDICAID-[place]. PATIENT STATES SOMETIMES HER PHONE DOES NOT WORK TO CALL AND SCHEDULE TRANSPORTATION. Mental Health History: PATIENT ADMITS TO HX OF ANXIETY AND DEPRESSION. REPORTS IS PRESCRIBED MEDICATION, BUT HAS BEEN UNABLE TO FOLLOW UP D/T TRANSPORTATION ISSUES. PATIENT FOLLOWS WITH THE COUNSELING CENTER. Substance Abuse History: PATIENT DENIES ANY HX OF SUBSTANCE ABUSE. Interventions: SOCIAL SERVICE ASSESSMENT EDUCATION PROVIDED ON RESOURCES-[facility] AND [facility] [facility]. PATIENT HAS USED PEOPLE TO PEOPLE IN THE PAST. PATIENT OPEN TO REFERRAL FOR [facility]. Assessment: PATIENT IS A 54 Y/O SINGLE FEMALE WHO PRESENTS TO ED BY EMS FOR HTN, GENERAL ILLNESS. PATIENT REPORTS OVER THE LAST FEW WEEKS HAS BEEN WEAK AND DIZZY. PATIENT STATES UNABLE TO GET UP OUT OF RECLINER. PATIENT STATES LIVES IN RENTED HOME WITH BROTHER AND EX BOYFRIEND. PATIENT REPORTS DOES NOT WISH FOR THEM TO LIVE WITH HER ANY LONGER, BUT THEY WILL NOT LEAVE. PATIENT STATES SHE PAYS THE RENT AND REFUSES TO TURN ON ELECTRIC, HEAT OR WATER. PATIENT STATES WHY SHOULD I DO ANY OF THAT IF THEY DO NOT HELP. PATIENT REPORTS ISSUES WITH TRANSPORTATION SHE IS UNABLE TO DRIVE BECAUSE SHE IS LEGALLY BLIND. EDUCATION PROVIDED ON TRANSPORTATION THROUGH [place]/MEDICAID. PATIENT STATES IS UNABLE TO SCHEDULE PHONE SOMETIMES DOES NOT WORK AND SHE LOSES HER VOICE. PATIENT ADMITS TO NON COMPLIANCE WITH FOLLOW UP APPOINTMENTS WHEN SHE DOES NOT FEEL WELL. DISCUSSED SAFE D/C PLANNING AND RESOURCES. PATIENT STATES HAS UTILIZED PEOPLE TO PEOPLE IN THE PAST FOR ASSISTANCE WITH RENT. PATIENT OPEN TO REFERRAL FOR WAIVER. THIS WORKER TO FOLLOW UP WITH REFERRALS. PATIENT UNSURE IF SHE WILL HAVE TRANSPORTATION HOME UPON D/C. UPDATED NURSE ON THE ABOVE. PATIENT BEING WORKED UP AT THIS TIME. PLAN: TBD
[2019-02-24 20:05] VITALS: PULSE 68; RESP 12; O2SAT 98
[2019-02-24 20:11] LABS: Anion Gap 4 (5-15); BUN 19 mg/dL (7-18); BUN/Creat Ratio 20.5 RATIO (10-20); Calcium,Total 8.5 mg/dL (8.5-10.1); Chloride 104 mmol/L (98-107); Creatinine, Serum 0.93 mg/dL (0.55-1.02); EST Glomerular Filtration Rate 67 mL/min (>60); Est Glom Filt Rate - Afr Amer 81 mL/min (>60); Estimated Creatinine Clearance 59.02 ml/min; Glucose 95 mg/dL (74-106); Potassium 3.8 mmol/L (3.5-5.1); Sodium Level 135 mmol/L (136-145)
[2019-02-24 20:24] VITALS: BP 163/115; PULSE 79; RESP 20; O2SAT 96
[2019-02-24] MEDS: 0.9% Normal Saline 1,000 ML 999 ML IV (20:24)
[2019-02-24] MEDS: Ondansetron 4 MG/2 ML Vial IV (20:24)
[2019-02-24 20:42] LABS: AST(SGOT) 8 U/L (15-37); Alanine Aminotransfer ALT/SGPT 15 U/L (13-56); Albumin, Serum 3.9 g/dL (3.2-5.0); Alkaline Phosphatase 134 U/L (45-117); Bilirubin, Direct 0.06 mg/dL (0.00-0.30); Protein, Total 6.9 g/dL (6.4-8.2)
--- NOTE | 2019-02-24 20:53 | ED.VISSUMM ---
- ER Visit Summary Date of Service: 02/24/19 Chief Complaint: Feels sick History of Present Illness: The patient is a 54 F who presents for 2 weeks of feeling unwell. Patient states she has had nausea, decreased appetite, and felt weak and dizzy. She feels like she is going to pass out if she stands up or sits up. She also states her memory is becoming fuzzy. She has had some mild chest pressure with her symptoms. Also complaining of back pain. Patient has history of A. fib, not on anticoagulation, hypertension, asthma, COPD, chronic kidney disease, GERD and aortic insufficiency. She does smoke tobacco and denies alcohol use. Physical Examination: Vital signs: afebrile, hemodynamically stable, no hypoxia on room air General: well nourished, well developed, in no distress Skin: warm, dry, no rash, no pallor HEENT: normocephalic and atraumatic; PERRL, EOMI, moist mucous membranes Cardiovascular: regular rate and rhythm without murmurs, no peripheral edema, 2+ pulses all distal extremities Respiratory: No increased work of breathing, lungs are clear to auscultation bilaterally, no rales, rhonchi or wheezing Abdominal: Abdomen is soft, nontender with normoactive bowel sounds, no guarding or rebound, no masses MSK: Moves all extremities, no deformities, normal strength Neuro: Awake and alert, oriented ?4. No facial droop, sensation and motor function intact and symmetric Test Results: Abnormal Lab Results 02/24/19 02/24/19 02/24/19 19:05 19:05 19:05 WBC 5.6 RBC 4.72 Hgb 14.3 Hct 40.6 MCV 86.0 MCH 30.3 MCHC 35.2 RDW 12.6 RDW Differential 40.3 Plt Count 260 MPV 9.9 Immature Gran % (Auto) 0.200 Neut % (Auto) 57.9 Lymph % (Auto) 29.4 [place] % (Auto) 8.7 Eos % (Auto) 3.6 Baso % (Auto) 0.2 Absolute Neuts (auto) 3.3 Absolute Lymphs (auto) 1.65 Total Counted Not Reportable Sodium 135 L Potassium 3.8 Chloride 104 Carbon Dioxide 27.0 Anion Gap 4 L BUN 19 H Creatinine 0.93 Estim Creat Clear Calc 59.02 Est GFR (MDRD) Af Amer 81 Est GFR (MDRD) Non-Af 67 BUN/Creatinine Ratio 20.5 H Glucose 95 Calcium 8.5 Total Bilirubin 0.20 Direct Bilirubin 0.06 AST 8 L ALT 15 Alkaline Phosphatase 134 H Troponin I < 0.015 Total Protein 6.9 Albumin 3.9 Globulin 3.0 Clinical Impression(s) from Imaging Studies Chest X-Ray 02/24/19 19:01 IMPRESSION: No acute cardiopulmonary disease. Electronically Signed: Cody Peñaloza MD at 19:21 EDT , Service support , Medications Given Discontinued Medications Sodium Chloride () 1,000 mls @ 999 mls/hr IV .Q1H1M ONE Stop: 02/24/19 21:16 Last Admin: 02/24/19 20:24 Dose: 999 mls/hr Ondansetron HCl (Zofran) 4 mg IV X1 ONE Stop: 02/24/19 20:17 Last Admin: 02/24/19 20:24 Dose: 4 mg Emergency Department Course and Treatment: Patient presents complaining of 2 weeks of multiple symptoms, and has an unremarkable physical exam, including a normal neuro exam. Patient was given IV fluids for hydration. She was given Zofran for nausea. CBC, CMP, and troponin were all within normal limits. chest x-ray showed no acute process. EKG showed sinus rhythm with no ischemic changes and no ectopy. On reevaluation, patient was now complaining of a headache. She was offered pain medication and declined. She stated she just wanted to go. Repeat vitals showed improvement of her blood pressure, 169/82, heart rate 72, 97% on room air, patient was in no distress. She was discharged home with instructions to follow-up as soon as possible with her family doctor. Treatment Plan: [] Disposition: [] Impression: General malaise This note was generated with [employer] dictation software. It may contain incorrect words, spelling, and punctuation that were not noted in review of the chart prior to signing ED Disposition - Plan for ED Patient: Disposition: Home or Assisted Living Instructions: ED HTN Established, ED Weakness UKO Referrals: Kenyetta Mcfadden, DEBRA-C [Primary Care Provider] - As soon as possible Additional Instructions: Please follow-up with your family doctor as soon as possible for further work-up of your multiple symptoms. If you have any worsening of your condition or any new concerning symptoms, please return immediately to the emergency department for another evaluation.
[2019-02-24 21:37] VITALS: BP 169/82; PULSE 77; RESP 18; O2SAT 97
--- NOTE | 2019-02-25 11:27 | CM.ED ---
SOCIAL WORK REQUEST FOR [facility] FAXED TO [facility] PER PATIENT'S REQUEST. JAYLIN GEORGES, CONSULTING SOLUTION DIRECTOR, COIN MACHINE SERVICE REPAIRER.
== END 2019-02-24 21:48 | disposition home or self-care (01) ==
PROVIDERS: Emergency Provider Emergency Medicine; Family Provider Nurse Practitioner Primary Care; PCP Nurse Practitioner Primary Care
DX: R53.81 Other malaise (principal); R11.0 Nausea; R07.89 Other chest pain; M54.9 Dorsalgia, unspecified; R53.1 Weakness; R42 Dizziness and giddiness; R63.8 Other symptoms and signs concerning food and fluid intake; R41.89 Other symptoms and signs involving cognitive functions and awareness; R51 Headache; J44.9 Chronic obstructive pulmonary disease, unspecified; K21.9 Gastro-esophageal reflux disease without esophagitis; I12.9 Hypertensive chronic kidney disease with stage 1 through stage 4 chronic kidney disease, or unspecified chronic kidney disease; N18.9 Chronic kidney disease, unspecified; I48.91 Unspecified atrial fibrillation; I35.1 Nonrheumatic aortic (valve) insufficiency; Z79.82 Long term (current) use of aspirin; Z79.899 Other long term (current) drug therapy; Z72.0 Tobacco use
CPT/HCPCS: 71045; 80048; 80076; 84484; 85025; 93005; 96374; 99285; J2405

== ENCOUNTER 2019-03-06 11:28 | Emergency (ER) | payer MEDICAID, SELFPAY ==
[2019-03-06 11:29] VITALS: BP 179/68; PULSE 89; RESP 16; TEMP 36.6; O2SAT 100; BMI 35.5
--- NOTE | 2019-03-06 11:48 | EKG12_ITS ---
Test Reason : GEN ILLNESS Blood Pressure : / mmHG Vent. Rate : 068 BPM Atrial Rate : 068 BPM P-R Int : 160 ms QRS Dur : 080 ms QT Int : 398 ms P-R-T Axes : 046 -13 038 degrees QTc Int : 423 ms Normal sinus rhythm Normal ECG Confirmed by NASIR SAAVEDRA ([id number]), photograph editor ANAND HSIEH ([id number]) on 03/13/2019 8:54:13 AM Referred By: ALIZA Confirmed By:NASIR SAAVEDRA
--- NOTE | 2019-03-06 11:48 | CT_ITS ---
STUDY: CT BRAIN WITHOUT CONTRAST REASON FOR EXAM: Female, 54 years old. Fatigue. Stage IV chronic kidney disease. RADIATION DOSAGE (If Supplied By Facility): CTDIvol = ( 60.81 ) mGy, DLP = ( 1044.28 ) mGycm TECHNIQUE: Transaxial CT imaging of the brain was performed without administration of intravenous contrast material. Individualized dose optimization techniques were used for this CT. COMPARISON: Comparison is made with prior examination dated September 15, 2015. FINDINGS: Normal soft tissue structures. Normal calvarium. Normal size ventricles and extra-axial spaces for the patient's age. Normal white matter tracts of the cerebral hemispheres. Old lacunar infarct in the insular cortex of the left temporal lobe. Normal brainstem. Normal cerebellum. There is no intracranial hemorrhage. There are no findings of an acute ischemic infarction. Normal visualized paranasal sinuses. CT/Brain/Head without Contrast IMPRESSION: Old lacunar infarct in the insular cortex of the left temporal lobe. Electronically Signed: Patrick Keita, at 12:55 EDT , Service support ,
[2019-03-06] MEDS: 0.9% Normal Saline 1,000 ML 150 ML IV (12:16)
[2019-03-06 12:26] LABS: Absolute Lymphocyte Count 1.31 X10^3/ul (0.83-4.51); Absolute Neutrophil Count 2.5 X10^3/uL (2.0-7.7); Basophil# 0.01 X10^3/uL; Basophil% 0.2 % (0-1); Eosinophil# 0.24 X10^3/uL; Eosinophils% 5.4 % (0-5); Hematocrit 42.2 % (37-47); Hemoglobin 14.5 g/dl (12.0-15.0); Lymphocyte # 1.31 X10^3/ul (4.0); Lymphocyte % 29.3 % (19-41); Mean Corp Hgb Conc 34.4 g/gl (32-36); Mean Corpuscular Hgb 29.8 pg (27.0-32.0); Mean Corpuscular Volume 86.7 fL (81-99); Mean Platelet Vol. 10.2 fl (6.2-12.0); Monocyte# 0.37 X10^3/uL; Monocyte% 8.3 % (0-10); Neutrophil # 2.54 X10^3/uL (2.7-7.7); Neutrophil % 56.8 % (47-70); POSITIVE COUNT NO; POSITIVE DIFFERENTIAL NO; POSITIVE MORPHOLOGY NO; Platelet Count 248 K/mm3 (150-450); RBC Distribution Width CV 13.1 % (11.6-14.6); RBC Distribution Width SD 40.8 fl (35.1-43.9); Red Blood Count 4.87 M/mm3 (4.2-5.4); White Blood Count 4.5 K/mm3 (4.4-11.0)
--- NOTE | 2019-03-06 12:43 | ED.VISSUMM ---
- ER Visit Summary Date of Service: 03/06/19 Chief Complaint: Sleepy History of Present Illness: The patient is a 54 F who had a syncopal episode last Sunday while doing dishes. She states she struck her face on the counter. Since that time she is complaining of excessive sleepiness. She has not been eating and drinking much. Does complain of mild headache along with nausea. Physical Examination: Vital signs significant for blood pressure 179/68, otherwise unremarkable. Patient sitting upright in bed no acute distress. Head neck examination was no obvious sign of trauma. Heart is regular rate and rhythm. Lung sounds are clear. Abdomen is soft and nontender. Neuro exam reveals no focal deficits. Test Results: EKG is sinus at 68 with no sign of acute ischemia. CT head shows old lacunar infarct in the insular cortex of the left temporal lobe. No sign of acute trauma. CBC and chemistry studies normal. LFTs significant only for an alk phos of 138. Ammonia level is normal. TSH and mono are both normal. Emergency Department Course and Treatment: Patient was given IV fluids here. Vital signs been stable. I explained to her that she may feel more sleepy than normal secondary to her head injury, but I do not see any electrolyte abnormality or other cause for her symptoms. She will follow with her primary care physician next week. Treatment Plan: [] Disposition: Discharge Impression: Closed head injury This note was generated with [employer] dictation software. It may contain incorrect words, spelling, and punctuation that were not noted in review of the chart prior to signing ED Disposition - Plan for ED Patient: Disposition: Home or Assisted Living Instructions: ED Head Injury Closed Referrals: Kenyetta Mcfadden NP-C [Primary Care Provider] - 3-5 Days
[2019-03-06 12:46] LABS: AST(SGOT) 9 U/L (15-37); Alanine Aminotransfer ALT/SGPT 21 U/L (13-56); Albumin, Serum 3.9 g/dL (3.2-5.0); Alkaline Phosphatase 138 U/L (45-117); Anion Gap 6 (5-15); BUN 17 mg/dL (7-18); BUN/Creat Ratio 17.1 RATIO (10-20); Bilirubin, Direct 0.07 mg/dL (0.00-0.30); Chloride 109 mmol/L (98-107); EST Glomerular Filtration Rate 61 mL/min (>60); Est Glom Filt Rate - Afr Amer 74 mL/min (>60); Estimated Creatinine Clearance 54.89 ml/min; Globulin 3.2 g/dL (2.2-4.2); Glucose 105 mg/dL (74-106); Potassium 4.2 mmol/L (3.5-5.1); Protein, Total 7.1 g/dL (6.4-8.2); Sodium Level 141 mmol/L (136-145)
[2019-03-06 12:54] LABS: Internal QC Validated? YES +Cl - CLEAR BKGD; Monotest Negative (Negative)
--- NOTE | 2019-03-06 14:32 | ED.RN ---
[facility] PT DOES REMIND STAFF SHE DROVE. PT AWARE SHE SHOULD NOT BE DRIVING. STATES THEY HAVE NOT SAID ANYTHING YET. THIS RN TALKED WITH HRO AND DR ABRAMS. PT DOES HAVE A LETTER FROM [facility]ING NOT TO DRIVE. [facility] AND PT AWARE LEGAL STEPS TO REVOKE LICENSE. [facility] TO TAKE [facility] HOME. PT AGREEABLE
[2019-03-06 14:38] VITALS: BP 172/75; PULSE 80; RESP 18; TEMP 36.6; O2SAT 98
--- NOTE | 2019-03-06 14:53 | CM.ED ---
SOCIAL WORK UPDATED ON CASE BY NURSE AND DR. ABRAMS. PATIENT IS LEGALLY BLIND AND DROVE SELF TO HOSPITAL. NURSING SET UP [facility] TO TRANSPORT PATIENT HOME AND PATIENT'S BUSINESS SUPPORT COORDINATOR AND DR. KIRKPATRICK ARE TO BEGIN OFFICIAL PAPERWORK TO HAVE PATIENT'S LICENSE REVOKED. INFORMED PATIENT WAS SEEN BY THIS WORKER LAST WEEK AND AT THAT TIME, PATIENT HAD INFORMED THIS WORKER SHE WAS LEGALLY BLIND AND UNABLE TO DRIVE. PATIENT WAS PROVIDED WITH CONTACT NUMBER FOR TRANSPORTATION THROUGH [facility] AND REFERRAL WAS MADE FOR [facility]. JAYLIN GEORGES, FILTER PULP WASHER, CHIEF PSYCHOLOGIST.
== END 2019-03-06 14:46 | disposition home or self-care (01) ==
PROVIDERS: Emergency Provider Emergency Medicine; Family Provider Nurse Practitioner Primary Care; PCP Nurse Practitioner Primary Care
DX: S09.90XA Unspecified injury of head, initial encounter (principal); R55 Syncope and collapse; W22.8XXA Striking against or struck by other objects, initial encounter; Y93.9 Activity, unspecified; Y92.9 Unspecified place or not applicable; J44.9 Chronic obstructive pulmonary disease, unspecified; I48.0 Paroxysmal atrial fibrillation; I12.9 Hypertensive chronic kidney disease with stage 1 through stage 4 chronic kidney disease, or unspecified chronic kidney disease; N18.9 Chronic kidney disease, unspecified; E03.9 Hypothyroidism, unspecified; F20.9 Schizophrenia, unspecified; Z86.73 Personal history of transient ischemic attack (TIA), and cerebral infarction without residual deficits; Z79.82 Long term (current) use of aspirin; Z79.899 Other long term (current) drug therapy; Z72.0 Tobacco use
CPT/HCPCS: 70450; 80048; 80076; 82140; 84443; 85025; 86308; 93005; 96360; 96361; 99285; J7030; A4216

== ENCOUNTER 2019-03-29 11:48 | Emergency (ER) | payer MEDICAID, SELFPAY ==
[2019-03-29 11:49] VITALS: BP 174/94; PULSE 90; RESP 18; TEMP 36.4; O2SAT 100; BMI 34.3
[2019-03-29 12:04] VITALS: TEMP 36.4; O2SAT 100
--- NOTE | 2019-03-29 12:06 | EKG12_ITS ---
Test Reason : Blood Pressure : / mmHG Vent. Rate : 088 BPM Atrial Rate : 088 BPM P-R Int : 158 ms QRS Dur : 076 ms QT Int : 400 ms P-R-T Axes : 053 -15 032 degrees QTc Int : 484 ms Normal sinus rhythm Moderate voltage criteria for LVH, may be normal variant Nonspecific ST abnormality Prolonged QT Abnormal ECG Confirmed by JOSEF SPEARS, BRENDA ([id number]), scientific editor ANAND HSIEH ([id number]) on 04/01/2019 9:28:23 AM Referred By: ALIZA Confirmed By:BRENDA BAHENA MD
--- NOTE | 2019-03-29 12:07 | CT_ITS ---
STUDY: CTA CHEST REASON FOR EXAM: Female, 54 years old. Shortness of breath and wheezing for 10 days RADIATION DOSAGE (If Supplied By Facility): CTDIvol = ( 7.83 ) mGy, DLP = ( 252.16 ) mGycm TECHNIQUE: The examination was performed with the intravenous administration of 100 IV Isovue 370. Post-processing of the angiographic images was performed, with multiplanar reformation and 3D reconstruction. Individualized dose optimization techniques were used for this CT. COMPARISON: 06/19/2017 FINDINGS: Normal enhancement of the main pulmonary artery and right and left pulmonary arteries. Normal enhancement of the bilateral peripheral pulmonary arteries. There is no demonstrated pulmonary embolism. Normal thoracic aorta and visualized great vessels. There is no demonstrated aortic dissection. Normal heart and pericardium. Normal mediastinum. There are calcified right hilar lymph nodes. Normal visualized trachea and bronchi. The lungs are well expanded. There is a granuloma in the right lower lobe. Mild degree of atelectasis or fibrotic scarring in the lung bases. No airspace consolidation. Normal pleura. Normal chest wall structures. There are degenerative changes of thoracic spine. Gallbladder surgically absent. CT/CTA Chest W/WO Contrast IMPRESSION: 1. No central or segmental pulmonary embolism. 2. Mild atelectasis/fibrotic scarring lung bases. No airspace consolidation. Electronically Signed: Trav Paul MD at 14:06 EDT , Service support ,
--- NOTE | 2019-03-29 12:11 | ED.DCSUM_ITS ---
- ER Visit Summary Date of Service: 03/29/19 Chief Complaint: Short of breath, wheezing History of Present Illness: The patient is a 54 F who reports short of breath, cough, wheezing for the past week and a half. She reports mild chills. She is had some mild chest tightness. She does report dizziness upon standing and generalized weakness. She states is been lying in bed a lot. Patient was seen here approximately 2 weeks ago several days after a reported syncopal event. Work-up at that time was unremarkable. Physical Examination: Blood pressure is 174/94, otherwise vitals normal. Her respiratory rate is 18 and her pulse ox is 100% on room air. Patient sitting upright in bed no acute distress. She is speaking full sentences but speaks in a whisper. Head and neck examination reveals moist mucous membranes. Heart is regular rate and rhythm. Lung sounds are clear. Abdomen is soft and nontender. Test Results: EKG is sinus 80 with no sign of acute ischemia. CT of the chest shows no central PE. Mild fibrotic scarring is noted. No consolidation. CBC and chemistry studies unremarkable. Her creatinine is 1.21 compared to prior creatinine 1.0 on March 06. Urinalysis is unremarkable. There are no ketones. Troponin is less than 0.015. Emergency Department Course and Treatment: Patient received a DuoNeb treatment here. She received Benadryl and Solu-Medrol as premedication for a CT dye allergy. On repeat evaluation patient is resting comfortably. She is now complaining of back pain and has reproducible tenderness in the right upper lumbar paraspinal muscles. I advised her this is likely from laying in bed and she needs to get up and move. She be given a course of prednisone at home. She has inhalers to use at home for her breathing. I do not see need for hospitalization at this time. Of note respiratory therapy did state the patient ambulated to the restroom and back without difficulty. Immediately after returning back to her room her O2 sat was 100% on room air. Treatment Plan: [] Disposition: Discharge Impression: Dyspnea with history of COPD This note was generated with [employer] dictation software. It may contain incorrect words, spelling, and punctuation that were not noted in review of the chart prior to signing ED Disposition - Plan for ED Patient: Disposition: Home or Assisted Living Instructions: ED COPD Flare Prescriptions: Prednisone [Deltasone] 40 mg PO DAILY #10 tablet Referrals: Kenyetta Mcfadden, [facility] [Primary Care Provider] - 1 Week
[2019-03-29 12:20] VITALS: PULSE 93; RESP 15; O2SAT 100
[2019-03-29] MEDS: MethylPREDNISolone 125 MG/2 ML Vial IV (12:20)
[2019-03-29] MEDS: Ipratropium/Albuterol Sulfate 3 ML AMPUL.NEB INHALATION (12:20)
[2019-03-29] MEDS: DiphenhydrAMINE 50 MG/ML Syringe 25 MG IV (12:20)
[2019-03-29] MEDS: 0.9% Normal Saline 1,000 ML 150 ML IV (12:20)
[2019-03-29 12:30] LABS: Mucous, Urine 0 SEEN /hpf (<or=2+); Red Blood Cells-Urine 0 SEEN /hpf (0-5)
[2019-03-29 12:32] LABS: Absolute Lymphocyte Count 1.96 X10^3/ul (0.83-4.51); Absolute Neutrophil Count 3.1 X10^3/uL (2.0-7.7); Basophil# 0.01 X10^3/uL; Basophil% 0.2 % (0-1); Eosinophil# 0.37 X10^3/uL; Eosinophils% 6.3 % (0-5); Hematocrit 42.8 % (37-47); Hemoglobin 14.8 g/dl (12.0-15.0); Lymphocyte # 1.96 X10^3/ul (4.0); Lymphocyte % 33.5 % (19-41); Mean Corp Hgb Conc 34.6 g/gl (32-36); Mean Corpuscular Hgb 29.6 pg (27.0-32.0); Mean Corpuscular Volume 85.6 fL (81-99); Mean Platelet Vol. 11.1 fl (6.2-12.0); Monocyte# 0.45 X10^3/uL; Monocyte% 7.7 % (0-10); Neutrophil # 3.05 X10^3/uL (2.7-7.7); Neutrophil % 52.1 % (47-70); Platelet Count 233 K/mm3 (150-450); RBC Distribution Width CV 13.3 % (11.6-14.6); RBC Distribution Width SD 41.2 fl (35.1-43.9); White Blood Count 5.9 K/mm3 (4.4-11.0)
[2019-03-29 12:33] LABS: POSITIVE COUNT NO; POSITIVE DIFFERENTIAL NO; POSITIVE MORPHOLOGY NO
[2019-03-29 12:34] LABS: Color, Urine Yellow (Yellow); Glucose, Dipstick Normal (Normal); Ketone-Dipstick Negative (Negative); Leukocyte Esterase-Dipstick 25 /ul (Negative); Nitrite-Dipstick Negative (Negative); Occult Blood-Urine Negative /ul (Negative); Protein-Dipstick Negative (Negative); Urine Bilirubin Dipstick Negative (Negative); Urine Clarity Clear (Clear); Urine Urobilinogen Normal (Normal)
[2019-03-29 12:46] LABS: Bacteria 1+ /hpf (None Seen); Squamous Epithelial Cells - UA 0-5 SEEN /hpf (5-10); White Blood Cells 0-5 SEEN /hpf (0-5)
[2019-03-29 12:49] LABS: Anion Gap 8 (5-15); BUN 14 mg/dL (7-18); BUN/Creat Ratio 11.6 RATIO (10-20); Calcium,Total 9.6 mg/dL (8.5-10.1); Chloride 109 mmol/L (98-107); Creatinine, Serum 1.21 mg/dL (0.55-1.02); EST Glomerular Filtration Rate 49 mL/min (>60); Est Glom Filt Rate - Afr Amer 59 mL/min (>60); Estimated Creatinine Clearance 45.36 ml/min; Glucose 93 mg/dL (74-106); Potassium 3.8 mmol/L (3.5-5.1); Sodium Level 142 mmol/L (136-145)
[2019-03-29 14:49] VITALS: BP 138/78; PULSE 80; RESP 16; O2SAT 97
== END 2019-03-29 14:49 | disposition home or self-care (01) ==
PROVIDERS: Emergency Provider Emergency Medicine; Family Provider Nurse Practitioner Primary Care; PCP Nurse Practitioner Primary Care
DX: R06.00 Dyspnea, unspecified (principal); J44.9 Chronic obstructive pulmonary disease, unspecified; R42 Dizziness and giddiness; R53.1 Weakness; R68.83 Chills (without fever); I48.0 Paroxysmal atrial fibrillation; I12.9 Hypertensive chronic kidney disease with stage 1 through stage 4 chronic kidney disease, or unspecified chronic kidney disease; N18.9 Chronic kidney disease, unspecified; E03.9 Hypothyroidism, unspecified; F20.9 Schizophrenia, unspecified; F31.9 Bipolar disorder, unspecified; Z79.82 Long term (current) use of aspirin; Z79.899 Other long term (current) drug therapy; Z72.0 Tobacco use
CPT/HCPCS: 71275; 80048; 81001; 84484; 85025; 93005; 94640; 96361; 96374; 96375; 99285; J7030; Q9967; A4216

== ENCOUNTER 2019-07-09 09:09 | Emergency (ER) | payer MEDICAID, SELFPAY ==
[2019-07-09 09:10] VITALS: BP 152/77; PULSE 90; RESP 18; TEMP 36.7; O2SAT 100; BMI 30.9
--- NOTE | 2019-07-09 09:22 | RAD_ITS ---
STUDY: X-RAY - RIGHT KNEE REASON FOR EXAM: Female, 54 years old. dizziness, fell yesterday right sided pain TECHNIQUE: 2 view(s) of the knee. COMPARISON: None. FINDINGS: Normal visualized distal femur. Normal visualized proximal tibia and fibula. Normal proximal tibiofibular articulation. Normal medial femorotibial compartment. Normal lateral femorotibial compartment. Normal patellofemoral articulation. The soft tissue structures are unremarkable. RAD/Knee 1 or 2 Views IMPRESSION: Normal x-ray examination of the knee. Electronically Signed: Yessica Pina MD at 11:32 EDT , Service support ,
--- NOTE | 2019-07-09 09:22 | EKG12_ITS ---
Test Reason : SYNCOPE Blood Pressure : / mmHG Vent. Rate : 069 BPM Atrial Rate : 069 BPM P-R Int : 156 ms QRS Dur : 080 ms QT Int : 428 ms P-R-T Axes : 050 -09 022 degrees QTc Int : 458 ms Normal sinus rhythm Normal ECG Confirmed by MILO SPEARS, MELLISSA ([id number]), online editor ANAND HSIEH ([id number]) on 07/11/2019 10:22:38 A M Referred By: ROSA Confirmed By:MADHAVI PEDRAZA MD
--- NOTE | 2019-07-09 09:22 | RAD_ITS ---
STUDY: X-RAY - PELVIS AND RIGHT HIP REASON FOR EXAM: Female, 54 years old. dizziness, fell yesterday right sided pain TECHNIQUE: 3 views of the pelvis and hip. COMPARISON: None. FINDINGS: There is a non-specific bowel gas pattern. Normal visualized soft tissue structures. Normal bilateral iliac wings, sacroiliac joints and visualized sacrum. Normal bilateral superior and inferior pubic rami. Normal pubic symphysis. Normal bilateral ischial tuberosities. Normal visualized femoral head. Normal acetabulum. Normal hip joint. RAD/HIP, UNI W/ Pelvis 2-3 Views IMPRESSION: Normal x-ray examination of the pelvis and hip. Electronically Signed: Yessica Pina MD at 11:25 EDT , Service support ,
--- NOTE | 2019-07-09 09:23 | ED.DCSUM_ITS ---
History of Present Illness Chief Complaint: Dizziness Detail of Chief Complaint: Dizzy, weakness, syncope Informant: Patient Onset: - - Chronic, most recent syncopal episode yesterday Narrative: Has a history of orthostatic hypotension diagnosed on tilt table testing through a physician at [facility]. Patient states she was standing yesterday when she passed out. She injured her right hip, right knee, and right ankle. She denies having palpitations prior to the episode. Patient states she feels lightheaded and generally weak. She is supposed to be wearing compression socks and something around her abdomen but states she is not able to afford it. - Past Medical History (1) PAF (paroxysmal atrial fibrillation) Status: Chronic (2) Asthma Status: Chronic (3) CKD (chronic kidney disease) stage 3, GFR 30-59 ml/min Status: Chronic (4) COPD, mild Status: Chronic (5) HLD (hyperlipidemia) Status: Chronic (6) HTN (hypertension) Status: Chronic (7) Hypothyroidism Status: Chronic (8) Schizophrenia Status: Chronic Past Medical History - Allergies and Home Meds Allergies/Adverse Reactions: Allergies adhesive tape Allergy (Verified 07/09/19 09:10) Rash atropine sulfate [From ] Allergy (Verified 07/09/19 09:10) Hives codeine phosphate [From Tylenol-Codeine #3] Allergy (Verified 07/09/19 09:10) breathing problems divalproex sodium [From Depakote] Allergy (Verified 07/09/19 09:10) Unknown hydromorphone HCl [From Dilaudid] Allergy (Verified 07/09/19 09:10) facial blisters,itching hyoscyamine sulfate [From ] Allergy (Verified 07/09/19 09:10) Hives Iodinated Contrast Media [Iodinated Contrast Media - IV Dye] Allergy (Verified 07/09/19 09:10) breathing problems and my bp went up latex Allergy (Verified 07/09/19 09:10) Rash pantoprazole sodium [From Protonix] Allergy (Verified 07/09/19 09:10) Rash phenobarbital [From ] Allergy (Verified 07/09/19 09:10) Hives promethazine HCl [From Phenergan] Allergy (Verified 07/09/19 09:10) Anaphylaxis ramipril Allergy (Verified 07/09/19 09:10) Unknown scopolamine hydrobromide [From ] Allergy (Verified 07/09/19 09:10) Hives ziprasidone mesylate [From Geodon] Allergy (Verified 07/09/19 09:10) Unknown Sulfa (Sulfonamide Antibiotics) Adverse Reaction (Verified 07/09/19 09:10) Vomiting ziprasidone HCl [From Geodon] Adverse Reaction (Verified 07/09/19 09:10) tremors VIDODIN TUSS Allergy (Uncoded 07/09/19 09:10) Itching Primary Care Physician: Kneyetta Mcfadden NP-C [Primary Care Provider] - Prior records reviewed: Yes Past Medical History: - - Reviewed Surgical History: - - Cholecystectomy, R carpal tunnel surgery, L foot surgery, Uterine suspension and bladder sling. Lives: Alone Smoking Status: Current some day smoker - Family History Sibling Family History: Family History (Last Reviewed 11/08/17 @ 12:36 by Angelina Paredes) Sister Myocardial infarction Mother Hypertension Arthritis Family History: Reports: Heart Disease Paternal Family History: Family History (Last Reviewed 11/08/17 @ 12:36 by Angelina Paredes) Sister Myocardial infarction Mother Hypertension Arthritis Family History: Reports: Heart Disease Maternal Family History: Family History (Last Reviewed 11/08/17 @ 12:36 by Angelina Paredes) Sister Myocardial infarction Mother Hypertension Arthritis Family History: Reports: Hypertension Review of Systems General: Denies: Chills, Fever Eyes: Reports: - - Legally blind and cannot drive ENT: Reports: Bilateral ear pain Cardiovascular: Denies: Chest pain, Palpitations, Heart racing Respiratory: Denies: Dyspnea Gastrointestinal: Denies: Abdominal pain, Nausea, Vomiting, Diarrhea Genitourinary: Denies: Dysuria Musculoskeletal: Reports: Extremity Pain Skin: Denies: Wounds Neurological: Reports: Weakness - Neurolysed weakness. Denies: Headache Endocrine: Denies: Polyuria, Polydipsia Hematologic: Denies: Easy bruising, Easy bleeding Allergy: Denies: Uticaria Physical Exam Vital Signs/Narrative: Vital Signs Temp Pulse Resp BP Pulse Ox 07/09/19 09:10 98.1 F 90 18 152/77 H 100 Inital Vital Signs reviewed: Yes General: Well nourished, Well developed Head: Normocephalic ENT: Moist mucous membranes Neck: Supple, Nontender Cardiovascular: Regular rate, Regular rhythm Respiratory: No distress, CTA bilaterally Abdomen: Soft, Nontender Extremities: - - Mild tenderness to palpation over the posterior right pelvis, right hip, right knee, and right ankle. Minimal edema is noted at the ankle, otherwise no skin changes. Strong distal pulses and good range of motion is noted. Skin: Normal color Neurological: Alert, Oriented x3, - - No focal deficits Psychological: Normal affect Diagnostic/Tx/Re-eval Impressions Hip/Pelvis X-Ray 07/09/19 09:22 IMPRESSION: Normal x-ray examination of the pelvis and hip. Electronically Signed: Yessica Pina MD at 11:25 EDT , Service support , Knee X-Ray 07/09/19 09:22 IMPRESSION: Normal x-ray examination of the knee. Electronically Signed: Yessica Pina MD at 11:32 EDT , Service support , Ankle X-Ray 07/09/19 09:23 IMPRESSION: Chronic changes of the ankle as described. Old healed fibular fracture. Evidence of lateral talus chronic osteochondral injury. No evidence of acute superimposed traumatic deformity. Electronically Signed: Yessica Pina MD at 11:31 EDT , Service support , 07/09/19 09:22 HIP, UNI W/ Pelvis 2-3 Views [RAD] Stat Knee 1 or 2 Views [RAD] Stat 07/09/19 09:23 Ankle min 3 Views [RAD] Stat Laboratory Results 07/09/19 07/09/19 09:50 09:50 WBC 5.6 RBC 4.34 Hgb 13.2 Hct 39.0 MCV 89.9 MCH 30.4 MCHC 33.8 RDW Std Deviation 44.7 H RDW Coeff of Yonathan 13.6 Plt Count 240 MPV 10.2 Immature Gran % (Auto) 0.200 Neut % (Auto) 59.3 Lymph % (Auto) 23.0 [place] % (Auto) 10.8 H Eos % (Auto) 6.3 H Baso % (Auto) 0.4 Absolute Neuts (auto) 3.3 Absolute Lymphs (auto) 1.28 Nucleated RBC % 0 Sodium 137 Potassium 3.8 Chloride 108 H Carbon Dioxide 23.0 Anion Gap 6 BUN 23 H Creatinine 1.03 H Estim Creat Clear Calc 53.29 Est GFR (MDRD) Af Amer 71 Est GFR (MDRD) Non-Af 59 L BUN/Creatinine Ratio 22.3 H Glucose 90 Calcium 9.0 - EKG Initial EKG Interpretation: Sinus Rhythm - Sinus at 69 with no acute ischemia. - Medical Decision Making Patient has remained stable throughout her ED stay. dowel pin worker helps me in figuring out what kind of compression stockings the patient would need. I spoke with the nurse for patient's fender mechanic apprentice at [facility]. She states that there is no recommendations listed in his notes from her last visit. She will be written for thigh-high compression stockings. She has a follow-up appointment scheduled August 05 with her fender mechanic apprentice. ED Disposition - Plan for ED Patient: Disposition: Home or Assisted Living Diagnosis: Syncope, Contusion of right lower extremity Instructions: HYPOTENSION, Orthostatic Prescriptions: Compr.stocking,Thigh,Reg,Large [Compression Thigh Stocking] 1 each MC DAILY #2 each Referrals: Kenyetta Mcfadden, DEBRA-C [Primary Care Provider] - Additional Instructions: Follow-up with Dr Diaz on Aug 05 as scheduled.
--- NOTE | 2019-07-09 09:23 | RAD_ITS ---
STUDY: X-RAY - RIGHT ANKLE REASON FOR EXAM: Female, 54 years old. dizziness, fell yesterday right sided pain TECHNIQUE: 3 view(s) of the ankle. COMPARISON: None. FINDINGS: Unremarkable appearance of the tibia. There is deformity of the contour of the distal fibula most consistent with that of a healed fracture. Normal medial and lateral malleoli. Normal tibiotalar articulation and ankle mortise. Normal calcaneus. There is lucency seen in association with the lateral talar dome suggesting small focal chronic osteochondral injury. The visualized subtalar, talonavicular, calcaneocuboid and tarsal articulations are normal. The soft tissue structures are unremarkable. RAD/Ankle min 3 Views IMPRESSION: Chronic changes of the ankle as described. Old healed fibular fracture. Evidence of lateral talus chronic osteochondral injury. No evidence of acute superimposed traumatic deformity. Electronically Signed: Yessica Pina MD at 11:31 EDT , Service support ,
[2019-07-09 09:30] VITALS: BP 139/66; PULSE 72; RESP 15; O2SAT 97
[2019-07-09 09:55] LABS: Absolute Lymphocyte Count 1.28 X10^3/uL (0.83-4.51); Absolute Neutrophil Count 3.3 X10^3/uL (2.0-7.7); Basophil# 0.02 X10^3/uL; Basophil% 0.4 % (0-1); Eosinophil# 0.35 X10^3/uL; Eosinophils% 6.3 % (0-5); Hemoglobin 13.2 g/dL (12.0-15.0); Lymphocyte # 1.28 X10^3/ul (4.0); Mean Corp Hgb Conc 33.8 g/dL (32-36); Mean Corpuscular Hgb 30.4 pg (27.0-32.0); Mean Corpuscular Volume 89.9 fL (81-99); Mean Platelet Vol. 10.2 fl (6.2-12.0); Monocyte% 10.8 % (0-10); NRBC Flagged by Analyzer 0 % (0-5); Neutrophil # 3.31 X10^3/uL (2.7-7.7); Neutrophil % 59.3 % (47-70); Platelet Count 240 K/mm3 (150-450); RBC Distribution Width CV 13.6 % (11.6-14.6); RBC Distribution Width SD 44.7 fl (35.1-43.9); Red Blood Count 4.34 M/mm3 (4.2-5.4); White Blood Count 5.6 K/mm3 (4.4-11.0)
[2019-07-09 10:07] LABS: Anion Gap 6 (5-15); BUN 23 mg/dL (7-18); BUN/Creat Ratio 22.3 RATIO (10-20); Chloride 108 mmol/L (98-107); Creatinine, Serum 1.03 mg/dL (0.55-1.02); EST Glomerular Filtration Rate 59 mL/min (>60); Est Glom Filt Rate - Afr Amer 71 mL/min (>60); Estimated Creatinine Clearance 53.29 ml/min; Glucose 90 mg/dL (74-106); Potassium 3.8 mmol/L (3.5-5.1); Sodium Level 137 mmol/L (136-145)
[2019-07-09] MEDS: 0.9% Normal Saline 1,000 ML 150 ML IV (10:27)
[2019-07-09 11:09] VITALS: PULSE 61; RESP 18; O2SAT 99
--- NOTE | 2019-07-09 12:00 | CM.ED ---
SOCIAL WORK INFORMANT: DR. ABRAMS REASON FOR REFERRAL: DME NEEDS-COMPRESSION STOCKINGS AND ABDOMINAL BINDER INFORMED BY DR. ABRAMS PATIENT WAS TOLD BY PERSONNEL QUALITY ASSURANCE AUDITOR, DR. RODRIGUEZ THROUGH [facility] THAT SHE NEEDED COMPRESSION STOCKINGS AND ABDOMINAL BINDER. PATIENT STATES IS UNABLE TO AFFORD AND REQUESTING PRESCRIPTION. MET WITH PATIENT IN ROOM AND DISCUSSED NEEDS. PATIENT ALSO VOICES TRANSPORTATION ISSUES. DISCUSSED OPTIONS. PATIENT REPORTS DOES HAVE A WAFER MOUNTER THROUGH [employer] [facility] AND GAVE THIS WORKER HER CELL PHONE TO LOOK UP PHONE NUMBER ([phone]). DISCUSSED DME NEEDS. PATIENT [facility] AND INFORMED COMPRESSION STOCKINGS ARE COVERED BY INSURANCE WITH PROPER PRESCRIPTION. INFORMED ABDOMINAL BINDER NOT COVERED BY INSURANCE AND REPORTS COST IS $19.99. EDUCATION PROVIDED ON [facility]. PATIENT PLANS TO RETURN HOME BEFORE AND STATES FRIEND SHOULD BE ABLE TO TRANSPORT HOME THIS DAY. PLAN: HOME WITH RESOURCES PROVIDED. JAYLIN GEORGES, TAXICAB DISPATCHER, SMEARER.
[2019-07-09 12:28] VITALS: BP 135/77; PULSE 68; RESP 15; O2SAT 95
== END 2019-07-09 12:29 | disposition home or self-care (01) ==
PROVIDERS: Emergency Provider Emergency Medicine; Family Provider Nurse Practitioner Primary Care; PCP Nurse Practitioner Primary Care
DX: R55 Syncope and collapse (principal); S80.11XA Contusion of right lower leg, initial encounter; M25.551 Pain in right hip; M25.561 Pain in right knee; M25.571 Pain in right ankle and joints of right foot; R60.0 Localized edema; H92.03 Otalgia, bilateral; W19.XXXA Unspecified fall, initial encounter; Y93.9 Activity, unspecified; Y92.9 Unspecified place or not applicable; I95.1 Orthostatic hypotension; I48.0 Paroxysmal atrial fibrillation; J44.9 Chronic obstructive pulmonary disease, unspecified; I12.9 Hypertensive chronic kidney disease with stage 1 through stage 4 chronic kidney disease, or unspecified chronic kidney disease; N18.3 Chronic kidney disease, stage 3 (moderate); E03.9 Hypothyroidism, unspecified; F20.9 Schizophrenia, unspecified; H54.8 Legal blindness, as defined in USA; Z79.82 Long term (current) use of aspirin; Z79.899 Other long term (current) drug therapy; F17.200 Nicotine dependence, unspecified, uncomplicated
CPT/HCPCS: 73502; 73560; 73610; 80048; 85025; 93005; 96360; 96361; 99284

== ENCOUNTER 2019-09-06 20:16 | Emergency (ER) | payer MEDICAID, SELFPAY ==
[2019-09-06] VITALS (12 sets, daily range): BP systolic 138–190; BP diastolic 60–85; PULSE 66–86; RESP 16–21; TEMP 36.7; O2SAT 96–99; BMI 35.7; BMI 34.6
--- NOTE | 2019-09-06 20:23 | CT_ITS ---
We are attempting to reach an attending provider to discuss findings. An addendum with communication details will be sent when the communication is complete. STUDY: CT BRAIN WITHOUT CONTRAST REASON FOR EXAM: Female, 54 years old. Stroke RADIATION DOSAGE (If Supplied By Facility): CTDIvol = ( 44.99 ) mGy, DLP = ( 762.36 ) mGycm TECHNIQUE: Transaxial CT imaging of the brain was performed without administration of intravenous contrast material. Individualized dose optimization techniques were used for this CT. COMPARISON: No relevant priors. FINDINGS: Brain parenchyma is without focal lesions, mass effect, acute intracranial hemorrhage, extra parenchymal fluid collections, hydrocephalus or herniation. The skull is intact. CT/Brain/Head without Contrast IMPRESSION: 1. Normal CT brain. Electronically Signed: Bryan Gipson, at 20:41 EST Tel , Service support ,
--- NOTE | 2019-09-06 20:23 | EKG12_ITS ---
Test Reason : NEURO SXS Blood Pressure : / mmHG Vent. Rate : 080 BPM Atrial Rate : 080 BPM P-R Int : 168 ms QRS Dur : 084 ms QT Int : 396 ms P-R-T Axes : 030 -29 028 degrees QTc Int : 456 ms Normal sinus rhythm Possible Left atrial enlargement Left ventricular hypertrophy Cannot rule out Septal infarct , age undetermined Abnormal ECG Confirmed by JOSEF SPEARS, BRENDA ([id number]), desk editor THANH PEREZ ([id number]) on 09/09/2019 10:03:32 AM Referred By: JACKLYN Confirmed By:BRENDA BAHENA MD
--- NOTE | 2019-09-06 20:24 | CT_ITS ---
STUDY: CTA OF THE BRAIN REASON FOR EXAM: Female, 54 years old. Stroke evaluation RADIATION DOSAGE (If Supplied By Facility): CTDIvol = ( 19.75 ) mGy, DLP = ( 628.31 ) mGycm TECHNIQUE: CT angiography was performed with a multi-detector CT scanner. Data acquisition was obtained from the skull base through the vertex following intravenous administration of IV Isovue 250 100ML. MIP images were reconstructed from the axial data set. Post-processing of the angiographic images was performed, with multiplanar reformation and 3D reconstruction. Individualized dose optimization techniques were used for this CT. COMPARISON: None. FINDINGS: Normal bilateral petrous carotid arteries. Normal right cavernous carotid artery with a normal supraclinoid bifurcation. Normal left cavernous carotid artery with a normal supraclinoid bifurcation. Normal right A1 segments of the anterior cerebral artery. Normal left A1 segments of the anterior cerebral artery. Normal intact anterior communicating artery (ACOM). Normal bilateral A2 segments of the anterior cerebral arteries. Normal right M1 and M2 segments of the middle cerebral arteries, with a normal M1 bifurcation. Normal left M1 and M2 segments of the middle cerebral arteries, with a normal M1 bifurcation. Normal right posterior communicating artery (PCOM). Normal left posterior communicating artery (PCOM). Normal bilateral vertebral arteries. Normal basilar artery with a normal basilar bifurcation. The visualized bilateral superior cerebellar (SCA) arteries are normal. Normal bilateral P1, P2 and visualized P3 segments of the posterior cerebral arteries. There is no demonstrated aneurysm of the [place]. There is no demonstrated abnormality of the visualized brain. Dural venous sinuses are patent. IMPRESSION: Normal [place] without a demonstrated aneurysm or hemodynamically significant stenosis. Electronically Signed: Bryan Gipson, at 20:55 EST Tel , Service support , STUDY: CTA NECK WITH CONTRAST REASON FOR EXAM: Female, 54 years old. Stroke evaluation RADIATION DOSAGE (If Supplied By Facility): CTDIvol = ( ) mGy, DLP = ( ) mGycm TECHNIQUE: CT angiography with multi-detector data acquisition was performed from the aortic arch to the skull base following intravenous administration of . MIP images were reconstructed from the axial data set. Post-processing of the angiographic images was performed, with multiplanar reformation and 3D reconstruction. Individualized dose optimization techniques were used for this CT. COMPARISON: None. FINDINGS: AORTIC ARCH: Normal visualized aortic arch. Normal origins of the brachiocephalic, left common carotid, and left subclavian arteries. RIGHT CAROTID ARTERIES: Normal right common carotid artery (CCA). Normal right common carotid bulb. Normal origin of the right internal carotid (ICA) artery without a hemodynamically significant stenosis. Normal visualized cervical portion of the right internal carotid artery. Normal origin of the right external carotid artery (ECA). LEFT CAROTID ARTERIES: Normal left common carotid artery (CCA). Normal left common carotid bulb. Normal origin of the left internal carotid (ICA) artery without a hemodynamically significant stenosis. Normal visualized cervical portion of the left internal carotid artery. Normal origin of the left external carotid artery (ECA). VERTEBRAL ARTERIES: Normal bilateral vertebral arteries. CT/CTA Head AND Neck W/ Contrast IMPRESSION: Normal bilateral cervical carotid and vertebral arteries. Electronically Signed: Bryan Gipson, at 20:57 EST Tel , Service support ,
--- NOTE | 2019-09-06 20:24 | ED.DCSUM_ITS ---
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 She tells me all of a sudden at exactly 7 she was not able to walk, she felt off balance and she felt like she was drunk. She called the paramedics. She is reporting sensory deficit and weakness on the right side also Past Medical History - Allergies and Home Meds Allergies/Adverse Reactions: Allergies adhesive tape Allergy (Verified 07/09/19 09:10) Rash atropine sulfate [From ] Allergy (Verified 09/06/19 20:35) Hives codeine phosphate [From Tylenol-Codeine #3] Allergy (Verified 09/06/19 20:35) breathing problems divalproex sodium [From Depakote] Allergy (Verified 09/06/19 20:35) Unknown hydromorphone HCl [From Dilaudid] Allergy (Verified 09/06/19 20:35) facial blisters,itching hyoscyamine sulfate [From ] Allergy (Verified 09/06/19 20:35) Hives Iodinated Contrast Media [Iodinated Contrast Media - IV Dye] Allergy (Verified 09/06/19 20:35) breathing problems and my bp went up latex Allergy (Verified 09/06/19 20:35) Rash pantoprazole sodium [From Protonix] Allergy (Verified 09/06/19 20:35) Rash phenobarbital [From ] Allergy (Verified 09/06/19 20:35) Hives promethazine HCl [From Phenergan] Allergy (Verified 09/06/19 20:35) Anaphylaxis ramipril Allergy (Verified 09/06/19 20:35) Unknown scopolamine hydrobromide [From ] Allergy (Verified 09/06/19 20:35) Hives ziprasidone mesylate [From Geodon] Allergy (Verified 09/06/19 20:35) Unknown Sulfa (Sulfonamide Antibiotics) Adverse Reaction (Verified 09/06/19 20:35) Vomiting ziprasidone HCl [From Geodon] Adverse Reaction (Verified 09/06/19 20:35) tremors VIDODIN TUSS Allergy (Uncoded 09/06/19 20:35) Itching Primary Care Physician: Kenyetta Mcfadden NP-C [Primary Care Provider] - Past Medical History: - - Diabetes, hypertension, renal insufficiency Surgical History: - - Cholecystectomy, R carpal tunnel surgery, L foot surgery, Uterine suspension and bladder sling. Smoking Status: Current some day smoker - Family History Sibling Family History: Family History (Last Reviewed 11/08/17 @ 12:36 by Angelina Paredes) Sister Myocardial infarction Mother Hypertension Arthritis Family History: Reports: Heart Disease Paternal Family History: Family History (Last Reviewed 11/08/17 @ 12:36 by Angelina Paredes) Sister Myocardial infarction Mother Hypertension Arthritis Family History: Reports: Heart Disease Maternal Family History: Family History (Last Reviewed 11/08/17 @ 12:36 by Angelina Paredes) Sister Myocardial infarction Mother Hypertension Arthritis Family History: Reports: Hypertension Review of Systems General: Denies: Fever Eyes: Denies: Visual changes - bilaterally ENT: Denies: Sore throat Cardiovascular: Denies: Chest pain Respiratory: Denies: Dyspnea Gastrointestinal: Denies: Abdominal pain, Nausea Musculoskeletal: Denies: Myalgias Skin: Denies: Rash Neurological: Reports: Weakness, Numbness, - - Disequilibrium Psych: Denies: Depression Endocrine: Denies: Polyuria Hematologic: Denies: Easy bruising Allergy: Denies: Uticaria Physical Exam General: Well nourished Head: Normocephalic Eyes: Perrl ENT: Moist mucous membranes Neck: Supple Cardiovascular: Regular rate Respiratory: No distress Abdomen: Soft, Nontender Back: Nontender Extremities: Nontender Skin: Normal color, No rash Neurological: Alert, Oriented x3, - - See NIH stroke scale Psychological: Normal affect Diagnostic/Tx/Re-eval - Rhythm Strip Rhythm Strip: Sinus Rhythm Rate: 80 Ectopy: None - EKG Initial EKG Interpretation: Sinus Rhythm, - - Normal MT and QTc intervals. Nonspecific ST changes throughout Interpreted by emergency doctor - Medical Decision Making Patient has a night NIH stroke scale of 9, she has no contraindications to TPA. I recommended that the patient get TPA. Patient agreed and TPA was ordered. The stroke radiologist from [facility] also did an encounter through the telemedicine she agrees with the TPA. Because there is no neurology coverage here I was told by the hospitalist that the patient needs to be transferred to [facility] will accept the transfer. CT angiogram is still pending. - Critical Care Time Critical care time (excluding procedures): 30-74 minutes, Discussing w/Patient &/or Family/Sas Administrator, Discussing w/Consultants, Arranging Admission or Transfer, Performing Direct Patient Care at Bedside ED Disposition - Plan for ED Patient: Disposition: [facility] Diagnosis: Ischemic stroke Referrals: Kenyetta Mcfadden, WASTE WATER OPERATOR-C [Primary Care Provider] -
--- NOTE | 2019-09-06 20:30 | ED.VIS.STROK ---
History of Present Illness Chief Complaint: Neuro S/Sx Informant: Scientific Informatics Leader Narrative: This note was generated simply for the stroke scale see the general emergency department note for full details Past Medical History - Allergies and Home Meds Allergies/Adverse Reactions: Allergies adhesive tape Allergy (Verified 07/09/19 09:10) Rash atropine sulfate [From ] Allergy (Verified 07/09/19 09:10) Hives codeine phosphate [From Tylenol-Codeine #3] Allergy (Verified 07/09/19 09:10) breathing problems divalproex sodium [From Depakote] Allergy (Verified 07/09/19 09:10) Unknown hydromorphone HCl [From Dilaudid] Allergy (Verified 07/09/19 09:10) facial blisters,itching hyoscyamine sulfate [From ] Allergy (Verified 07/09/19 09:10) Hives Iodinated Contrast Media [Iodinated Contrast Media - IV Dye] Allergy (Verified 07/09/19 09:10) breathing problems and my bp went up latex Allergy (Verified 07/09/19 09:10) Rash pantoprazole sodium [From Protonix] Allergy (Verified 07/09/19 09:10) Rash phenobarbital [From ] Allergy (Verified 07/09/19 09:10) Hives promethazine HCl [From Phenergan] Allergy (Verified 07/09/19 09:10) Anaphylaxis ramipril Allergy (Verified 07/09/19 09:10) Unknown scopolamine hydrobromide [From ] Allergy (Verified 07/09/19 09:10) Hives ziprasidone mesylate [From Geodon] Allergy (Verified 07/09/19 09:10) Unknown Sulfa (Sulfonamide Antibiotics) Adverse Reaction (Verified 07/09/19 09:10) Vomiting ziprasidone HCl [From Geodon] Adverse Reaction (Verified 07/09/19 09:10) tremors VIDODIN TUSS Allergy (Uncoded 07/09/19 09:10) Itching Primary Care Physician: Kenyetta Mcfadden EXPERIMENTAL PHYSICIST-C [Primary Care Provider] - Surgical History: - - Cholecystectomy, R carpal tunnel surgery, L foot surgery, Uterine suspension and bladder sling. Smoking Status: Current some day smoker - Family History Sibling Family History: Family History (Last Reviewed 11/08/17 @ 12:36 by Angelina Paredes) Sister Myocardial infarction Mother Hypertension Arthritis Family History: Reports: Heart Disease Paternal Family History: Family History (Last Reviewed 11/08/17 @ 12:36 by Angelina Paredes) Sister Myocardial infarction Mother Hypertension Arthritis Family History: Reports: Heart Disease Maternal Family History: Family History (Last Reviewed 11/08/17 @ 12:36 by Angelina Paredes) Sister Myocardial infarction Mother Hypertension Arthritis Family History: Reports: Hypertension STROKE Vital Signs/Narrative: Vital Signs Temp 09/06/19 20:16 98.1 F - NIHSS Initial 1a Level of Consciousness: 0 1b LOC Questions (Score 2 if aphasic/stupor): 0 1c LOC Commands (Only score 1st attempt): 0 2 Best Gaze (If aphasic, use reflexive mvmts.): 0 3 Visual: 0 4 Facial Palsy: 1 5 Motor Arm Right (UN = amputation/fusion): 2 5 Motor Arm Left: 0 6 Motor Leg Right: 3 6 Motor Leg Left: 0 7 Limb ataxia (Only + if out of proportion): 2 8 Sensory (Aphasia/stupor=0 or 1, coma=2): 1 9 Best Language: 0 10 Dysarthria (mute, coma=2, intubated=UN): 0 11 Extinction and Inattention (only scored if +): 0 Total Score: 9 ED Disposition - Plan for ED Patient: Referrals: Kenyetta Mcfadden EXPERIMENTAL PHYSICIST-C [Primary Care Provider] -
--- NOTE | 2019-09-06 20:30 | ED.RN ---
2027 tele stroke notified of stroke .stated to call back when pt arrives.
[2019-09-06] MEDS: MethylPREDNISolone 125 MG/2 ML Vial IV (20:44)
[2019-09-06] MEDS: DiphenhydrAMINE 50 MG/ML Syringe IV (20:44)
--- NOTE | 2019-09-06 20:46 | ED.RN ---
[address] de los santos doing stroke assessment.
--- NOTE | 2019-09-06 20:50 | RAD_ITS ---
STUDY: X-RAY CHEST REASON FOR EXAM: Female, 54 years old. Neuro symptoms TECHNIQUE: Single frontal view of the chest. COMPARISON: CT chest March 29, 2019 and chest x-ray February 24, 2019 FINDINGS: The lungs are clear and expanded. There is no demonstrated pleural abnormality. Normal size heart. Normal mediastinum and rosita. Normal visualized pulmonary arteries. Normal visualized aortic arch and descending thoracic aorta. Normal visualized thoracic spine. Normal visualized ribs, clavicles, and shoulders. There is no demonstrated abnormality of the visualized soft tissue structures of the upper abdomen. RAD/Chest 1 View IMPRESSION: Normal x-ray examination of the chest. Electronically Signed: Kal Clark MD at 21:41 EST , Service support ,
[2019-09-06 20:54] LABS: Absolute Lymphocyte Count 1.81 X10^3/uL (0.83-4.51); Absolute Neutrophil Count 3.8 X10^3/uL (2.0-7.7); Basophil# 0.03 X10^3/uL; Basophil% 0.5 % (0-1); Eosinophil# 0.32 X10^3/uL; Hematocrit 37.3 % (37-47); Hemoglobin 12.5 g/dL (12.0-15.0); Lymphocyte # 1.81 X10^3/ul (4.0); Lymphocyte % 28.1 % (19-41); Mean Corp Hgb Conc 33.5 g/dL (32-36); Mean Corpuscular Hgb 30.3 pg (27.0-32.0); Mean Corpuscular Volume 90.3 fL (81-99); Mean Platelet Vol. 10.3 fl (6.2-12.0); Monocyte% 7.8 % (0-10); NRBC Flagged by Analyzer 0 % (0-5); Neutrophil # 3.77 X10^3/uL (2.7-7.7); Neutrophil % 58.3 % (47-70); Platelet Count 247 K/mm3 (150-450); RBC Distribution Width SD 42.9 fl (35.1-43.9); Red Blood Count 4.13 M/mm3 (4.2-5.4); White Blood Count 6.5 K/mm3 (4.4-11.0)
[2019-09-06] MEDS: Labetalol 20 MG/4 ML Vial IV (20:56)
[2019-09-06 20:57] LABS: Prothrombin Time (Protime)PT. 12.8 SECONDS (11.7-14.9)
[2019-09-06 20:58] LABS: Partial Thromboplast Time 28.4 Seconds (24.1-36.2)
[2019-09-06 21:06] LABS: Anion Gap 5 (5-15); BUN 22 mg/dL (7-18); Calcium,Total 8.4 mg/dL (8.5-10.1); Chloride 109 mmol/L (98-107); EST Glomerular Filtration Rate 61 mL/min (>60); Est Glom Filt Rate - Afr Amer 74 mL/min (>60); Estimated Creatinine Clearance 54.89 ml/min; Glucose 97 mg/dL (74-106); Potassium 3.9 mmol/L (3.5-5.1); Sodium Level 139 mmol/L (136-145)
[2019-09-06] MEDS: 0.9% Normal Saline 1,000 ML 100 ML IV (21:29)
--- NOTE | 2019-09-06 21:31 | NURSING ---
CALLED [facility] AT 2100 AND WAS TOLD NO AVAILABILITY CALLED [facility] AT 2103 AND WAS TOLD NO AVAILABILITY CALLED [facility] AT 2104 AND WAS AT FIRST TOLD 20 MINUTE ETA BUT THEN THEY CALLED BACK SAYING THE CREW COULD NOT TAKE TPA. CALLED [facility] AT 2119 AND TOLD 8 HOUR WAIT CALLED [facility] ASKING FOR GROUND CREW WAITING FOR RETURN CALL
--- NOTE | 2019-09-06 21:38 | ED.RN ---
THIS RN CONTACTS PT SON DARRYL VELASQUEZ [phone] WITH PT VERBAL PERMISSION. SON DID NOT ANSWER, AND THIS RN LEFT A VOICE MESSAGE WITH PT PERMISSION. PT INFORMED OF CALL.
--- NOTE | 2019-09-06 21:46 | NURSING ---
HEARD BACK FROM [facility]. AND WAS TOLD THEY HAD NO ONE TO DRIVE THEIR CREW CALLED [facility] BACK AND ASKED IF THEY WOULD TRANSPORT PATIENT ONCE TPA WAS DONE SO CREW IS IN ROUTE
[2019-09-06] MEDS: TITRATION PARAMETER CHANGE 1 EACH IV (22:05)
--- NOTE | 2019-09-06 23:15 | ED.RN ---
2230 squad loading up with the pt.
--- NOTE | 2019-09-06 23:25 | ED.RN ---
2222 bedside [facility] done with squad.
--- NOTE | 2019-09-06 23:32 | ED.RN ---
PT DAUGHTER CALLED AND INFORMED OF TRANSFER TO [facility].
--- NOTE | 2019-09-07 00:13 | ED.RN ---
[address] leung for sbp 180's.
--- NOTE | 2019-09-11 19:13 | ED.RN ---
2030 pt c/o nausea zofran given as directed by dr garcia.
== END 2019-09-06 22:40 | disposition short-term general hospital (02) ==
PROVIDERS: Emergency Provider Emergency Medicine; Family Provider Nurse Practitioner Primary Care; PCP Nurse Practitioner Primary Care
DX: I63.9 Cerebral infarction, unspecified (principal); G81.91 Hemiplegia, unspecified affecting right dominant side; I10 Essential (primary) hypertension; R29.709 NIHSS score 9; E11.9 Type 2 diabetes mellitus without complications; F17.200 Nicotine dependence, unspecified, uncomplicated; Z82.49 Family history of ischemic heart disease and other diseases of the circulatory system
CPT/HCPCS: 51702; 70450; 70496; 70498; 71045; 80048; 84484; 85025; 85610; 85730; 93005; 99285; J2997; J7050; Q9967; A4216; J2405

== ENCOUNTER 2019-10-18 10:05 | Emergency (ER) | payer MEDICAID, SELFPAY ==
[2019-09-06 20:36] VITALS: BMI 34.6
[2019-10-18 10:07] VITALS: BP 165/87; PULSE 71; RESP 16; TEMP 36.8; O2SAT 97; BMI 34.1
--- NOTE | 2019-10-18 10:49 | RAD_ITS ---
STUDY: X-RAY - LUMBAR SPINE REASON FOR EXAM: Female, 54 years old. Pain x several days -- NKI TECHNIQUE: 3 view(s) of the lumbar spine were obtained. COMPARISON: None FINDINGS: Normal lumbar lordosis. There is no substantial scoliosis. There is a normal alignment of the vertebrae. There is multilevel endplate spondylosis of the lumbar vertebrae. There is disc space narrowing at the level of L5-S1 with vacuum phenomenon. There is no apparent acute loss of height or alignment. Postoperative changes status post cholecystectomy. There is moderate constipation. RAD/Lumbar Spine 2 or 3 Views IMPRESSION: Degenerative changes lumbar spine most significant at L5-S1. Electronically Signed: Catia Bueno MD at 12:15 EST Tel , Service support ,
--- NOTE | 2019-10-18 10:49 | RAD_ITS ---
STUDY: X-RAY - THORACIC SPINE REASON FOR EXAM: Female, 54 years old. Pain x several days -- NKI TECHNIQUE: 3 view(s) of the thoracic spine were obtained. COMPARISON: None. FINDINGS: Normal kyphosis of the thoracic spine. There is no substantial scoliosis. There is demineralization of the thoracic spine with endplate spondylosis. There is mild mid level multilevel disc space narrowing of the thoracic spine. The soft tissue structures are unremarkable. RAD/Thoracic Spine 2 Views IMPRESSION: Degenerative change no visualized evidence of acute loss of height or alignment. Electronically Signed: Catia Bueno MD at 12:15 EST Tel , Service support ,
--- NOTE | 2019-10-18 10:50 | ED.DCSUM_ITS ---
History of Present Illness Chief Complaint: Back Informant: Patient Onset: Days - 4 days Context: Gradual Onset Timing: Waxes and wanes Current Severity: Moderate Maximum Severity: Moderate Narrative: Patient presents with back pain of the past 4 days. Is been waxing and waning. She denies any known injury. She does report having a recent mild stroke with some right-sided weakness. She thinks this is thrown her gait off and is pulling her back to the side. There is been no new injury. 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, non-epileptic Status: Chronic Comment: spells noted while undergoing EEG - not epileptic (6) Depression Status: Chronic (7) Gastritis Status: Chronic (8) HLD (hyperlipidemia) Status: Chronic (9) HTN (hypertension) Status: Chronic (10) Hypothyroidism Status: Chronic (11) Migraine Status: Chronic (12) PAF (paroxysmal atrial fibrillation) Status: Chronic (13) Schizophrenia Status: Chronic Past Medical History - Allergies and Home Meds Allergies/Adverse Reactions: Allergies adhesive tape Allergy (Verified 10/18/19 10:07) Rash atropine sulfate [From ] Allergy (Verified 10/18/19 10:07) Hives codeine phosphate [From Tylenol-Codeine #3] Allergy (Verified 10/18/19 10:07) breathing problems divalproex sodium [From Depakote] Allergy (Verified 10/18/19 10:07) Unknown hydromorphone HCl [From Dilaudid] Allergy (Verified 10/18/19 10:07) facial blisters,itching hyoscyamine sulfate [From ] Allergy (Verified 10/18/19 10:07) Hives Iodinated Contrast Media [Iodinated Contrast Media - IV Dye] Allergy (Verified 10/18/19 10:07) breathing problems and my bp went up latex Allergy (Verified 10/18/19 10:07) Rash pantoprazole sodium [From Protonix] Allergy (Verified 10/18/19 10:07) Rash phenobarbital [From ] Allergy (Verified 10/18/19 10:07) Hives promethazine HCl [From Phenergan] Allergy (Verified 10/18/19 10:07) Anaphylaxis ramipril Allergy (Verified 10/18/19 10:07) Unknown scopolamine hydrobromide [From ] Allergy (Verified 10/18/19 10:07) Hives ziprasidone mesylate [From Geodon] Allergy (Verified 10/18/19 10:07) Unknown Sulfa (Sulfonamide Antibiotics) Adverse Reaction (Verified 10/18/19 10:07) Vomiting ziprasidone HCl [From Geodon] Adverse Reaction (Verified 10/18/19 10:07) tremors VIDODIN TUSS Allergy (Uncoded 10/18/19 10:07) Itching Primary Care Physician: Kenyetta Mcfadden NP-C [Primary Care Provider] - Prior records reviewed: Yes Surgical History: - - Cholecystectomy, R carpal tunnel surgery, L foot surgery, Uterine suspension and bladder sling. Lives: Alone Smoking Status: Current every day smoker - Family History Sibling Family History: Family History (Last Reviewed 11/08/17 @ 12:36 by Angelina Paredes) Sister Myocardial infarction Mother Hypertension Arthritis Family History: Reports: Heart Disease Paternal Family History: Family History (Last Reviewed 11/08/17 @ 12:36 by Angelina Paredes) Sister Myocardial infarction Mother Hypertension Arthritis Family History: Reports: Heart Disease Maternal Family History: Family History (Last Reviewed 11/08/17 @ 12:36 by Angelina Paredes) Sister Myocardial infarction Mother Hypertension Arthritis Family History: Reports: Hypertension Review of Systems General: Denies: Chills, Fever Eyes: Denies: Visual changes - bilaterally ENT: Denies: Bilateral ear pain Cardiovascular: Denies: Chest pain Respiratory: Denies: Dyspnea, Cough Gastrointestinal: Denies: Abdominal pain, Nausea, Vomiting, Diarrhea Genitourinary: Denies: Dysuria Musculoskeletal: Reports: Back pain. Denies: Extremity Pain Skin: Denies: Rash Neurological: Denies: Headache Allergy: Denies: Uticaria Physical Exam Vital Signs/Narrative: Vital Signs Temp Pulse Resp BP Pulse Ox 10/18/19 10:07 98.3 F 71 16 165/87 H 97 Inital Vital Signs reviewed: Yes General: Well nourished, Well developed Head: Normocephalic ENT: Moist mucous membranes Cardiovascular: Regular rate, Regular rhythm Respiratory: No distress, CTA bilaterally Abdomen: Soft, Nontender Back: - - Tenderness in the thoracic and lumbar paraspinal muscles. Negative straight leg raise test. Skin: Normal color Neurological: Alert, Oriented x3, - - No focal neuro deficits. Psychological: Normal affect Diagnostic/Tx/Re-eval Impressions Lumbar Spine X-Ray 10/18/19 10:49 IMPRESSION: Degenerative changes lumbar spine most significant at L5-S1. Electronically Signed: Catia Bueno MD at 12:15 EST Tel , Service support , Thoracic Spine X-Ray 10/18/19 10:49 IMPRESSION: Degenerative change no visualized evidence of acute loss of height or alignment. Electronically Signed: Catia Bueno MD at 12:15 EST Tel , Service support , 10/18/19 10:49 Lumbar Spine 2 or 3 Views [RAD] Stat Thoracic Spine 2 Views [RAD] Stat Laboratory Results 10/18/19 10/18/19 12:16 12:16 WBC 6.0 RBC 4.61 Hgb 13.9 Hct 41.0 MCV 88.9 MCH 30.2 MCHC 33.9 RDW Std Deviation 43.5 RDW Coeff of Yonathan 13.4 Plt Count 243 MPV 10.5 Immature Gran % (Auto) 0.200 Neut % (Auto) 55.3 Lymph % (Auto) 31.1 [place] % (Auto) 9.3 Eos % (Auto) 3.8 Baso % (Auto) 0.3 Absolute Neuts (auto) 3.3 Absolute Lymphs (auto) 1.86 Nucleated RBC % 0 Sodium 128 L Potassium 4.0 Chloride 97 L Carbon Dioxide 23.0 Anion Gap 8 BUN 18 Creatinine 0.89 Estim Creat Clear Calc 61.67 Est GFR (MDRD) Af Amer 84 Est GFR (MDRD) Non-Af 69 BUN/Creatinine Ratio 20.1 H Glucose 96 Calcium 8.4 L Troponin I < 0.015 - EKG Initial EKG Interpretation: Sinus Rhythm - Sinus at 62 with no acute ischemia. - Medical Decision Making Patient was initially given morphine and Zofran for her pain. She developed a slight reaction at the IV site was given a small dose of Benadryl. After going to x-ray and being moved onto the x-ray table, patient developed spasm in her upper back with pain rating around to her chest. EKG was obtained and unremarkable. Blood work is unremarkable other than hyponatremia which she has had previously. Patient was given a dose of Valium after returning from x-ray. Pain is improved at this time. She be given prescriptions for Pemberton, Valium, and Zofran. Discussed use of ice and stretching. ED Disposition - Plan for ED Patient: Disposition: Home or Assisted Living Diagnosis: Back muscle spasm Instructions: BACK SPASM, No Trauma Prescriptions: Hydrocodone Bitart/Apap 5-325 [Pemberton 5MG-325MG] 1 tablet PO Q6H PRN PRN 3 Days #10 tablet PRN Reason: Pain Transmission Status: Sent to [facility] Diazepam [Valium] 5 mg PO Q8 PRN #10 tablet PRN Reason: Muscle Spasm Transmission Status: Sent to [facility] Ondansetron [Zofran Odt] 4 mg PO Q8H PRN PRN #10 tab PRN Reason: Nausea Transmission Status: Pending to [facility] Referrals: Kenyetta Mcfadden, MANUFACTURING INSPECTOR-C [Primary Care Provider] - 3-5 Days if not improving
[2019-10-18] MEDS: Morphine 4 MG/ML Syringe IV (11:18)
[2019-10-18] MEDS: Ondansetron 4 MG/2 ML Vial IV (11:18)
[2019-10-18] MEDS: DiphenhydrAMINE 50 MG/ML Syringe 12.5 MG IV (11:30)
--- NOTE | 2019-10-18 12:00 | ED.RN ---
PT C/O SHARP CRUSHING PAIN WRAPPING AROUND TRUNK TO CHEST WHILE IN RADIOLOGY. DR ABRAMS NOTIFIED.
--- NOTE | 2019-10-18 12:05 | EKG12_ITS ---
Test Reason : CP Blood Pressure : / mmHG Vent. Rate : 062 BPM Atrial Rate : 062 BPM P-R Int : 170 ms QRS Dur : 086 ms QT Int : 424 ms P-R-T Axes : 053 005 068 degrees QTc Int : 430 ms Normal sinus rhythm Normal ECG Confirmed by JOSEF SPEARS, BRENDA ([id number]), editor book ANAND HSIEH ([id number]) on 10/21/2019 8:48:12 AM Referred By: ALIZA Confirmed By:BRENDA BAHENA MD
[2019-10-18 12:44] LABS: Absolute Lymphocyte Count 1.86 X10^3/uL (0.83-4.51); Absolute Neutrophil Count 3.3 X10^3/uL (2.0-7.7); Basophil# 0.02 X10^3/uL; Basophil% 0.3 % (0-1); Eosinophil# 0.23 X10^3/uL; Eosinophils% 3.8 % (0-5); Hemoglobin 13.9 g/dL (12.0-15.0); Lymphocyte # 1.86 X10^3/ul (4.0); Lymphocyte % 31.1 % (19-41); Mean Corp Hgb Conc 33.9 g/dL (32-36); Mean Corpuscular Hgb 30.2 pg (27.0-32.0); Mean Corpuscular Volume 88.9 fL (81-99); Mean Platelet Vol. 10.5 fl (6.2-12.0); Monocyte# 0.56 X10^3/uL; Monocyte% 9.3 % (0-10); NRBC Flagged by Analyzer 0 % (0-5); Neutrophil # 3.31 X10^3/uL (2.7-7.7); Neutrophil % 55.3 % (47-70); Platelet Count 243 K/mm3 (150-450); RBC Distribution Width CV 13.4 % (11.6-14.6); RBC Distribution Width SD 43.5 fl (35.1-43.9); Red Blood Count 4.61 M/mm3 (4.2-5.4)
[2019-10-18 13:05] LABS: Anion Gap 8 (5-15); BUN 18 mg/dL (7-18); BUN/Creat Ratio 20.1 RATIO (10-20); Calcium,Total 8.4 mg/dL (8.5-10.1); Chloride 97 mmol/L (98-107); Creatinine, Serum 0.89 mg/dL (0.55-1.02); EST Glomerular Filtration Rate 69 mL/min (>60); Est Glom Filt Rate - Afr Amer 84 mL/min (>60); Estimated Creatinine Clearance 61.67 ml/min; Glucose 96 mg/dL (74-106); Sodium Level 128 mmol/L (136-145)
[2019-10-18] MEDS: diazePAM 5 MG Tablet PO (13:06)
[2019-10-18] MEDS: 0.9% Normal Saline 1,000 ML 150 ML IV (13:07)
[2019-10-18 14:10] VITALS: BP 138/57; PULSE 57; RESP 16; O2SAT 96
== END 2019-10-18 14:19 | disposition home or self-care (01) ==
PROVIDERS: Emergency Provider Emergency Medicine; Family Provider Nurse Practitioner Primary Care; PCP Nurse Practitioner Primary Care
DX: M62.830 Muscle spasm of back (principal); M54.9 Dorsalgia, unspecified; E87.1 Hypo-osmolality and hyponatremia; J44.9 Chronic obstructive pulmonary disease, unspecified; I12.9 Hypertensive chronic kidney disease with stage 1 through stage 4 chronic kidney disease, or unspecified chronic kidney disease; N18.3 Chronic kidney disease, stage 3 (moderate); F32.9 Major depressive disorder, single episode, unspecified; E78.5 Hyperlipidemia, unspecified; E03.9 Hypothyroidism, unspecified; F20.9 Schizophrenia, unspecified; I48.0 Paroxysmal atrial fibrillation; G43.909 Migraine, unspecified, not intractable, without status migrainosus; F44.4 Conversion disorder with motor symptom or deficit; Z87.19 Personal history of other diseases of the digestive system; Z79.82 Long term (current) use of aspirin; Z79.899 Other long term (current) drug therapy; F17.200 Nicotine dependence, unspecified, uncomplicated
CPT/HCPCS: 36415; 72070; 72100; 80048; 84484; 85025; 93005; 96361; 96374; 96375; 99284; J7030; A4216; J2405

== ENCOUNTER 2019-10-30 10:07 | Emergency (ER) | payer MEDICAID, SELFPAY ==
[2019-10-30 10:09] VITALS: BP 153/97; PULSE 87; RESP 16; TEMP 36.2; O2SAT 100; BMI 31.9
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
[2019-10-30 10:50] VITALS: RESP 16
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
[2019-10-30 11:03] LABS: Carboxyhemoglobin Frac (CO) 3.9 % (0.0-1.5)
--- NOTE | 2019-10-30 12:31 | ED.DEP ---
ED Disposition - Plan for ED Patient: Disposition: Home or Assisted Living Instructions: Acute Bronchitis Referrals: Kenyetta Mcfadden NP-C [Primary Care Provider] - 1 Week if not improving Additional Instructions: Your chest x-ray was normal and your carbon monoxide level was in normal range for a person and smokes. Stop smoking. You have a viral respiratory infection that should improve without any antibiotic treatment. Follow-up with your doctor as needed. Make sure your home is well ventilated and then check the carbon monoxide level.
[2019-10-30 12:37] VITALS: BP 138/74; PULSE 74; RESP 18; O2SAT 99
== END 2019-10-30 12:38 | disposition home or self-care (01) ==
PROVIDERS: Emergency Provider Emergency Medicine; PCP Nurse Practitioner Primary Care
DX: J06.9 Acute upper respiratory infection, unspecified (principal); Z77.29 Contact with and (suspected) exposure to other hazardous substances; R19.7 Diarrhea, unspecified; I69.351 Hemiplegia and hemiparesis following cerebral infarction affecting right dominant side; J45.909 Unspecified asthma, uncomplicated; I10 Essential (primary) hypertension; Z79.82 Long term (current) use of aspirin; Z79.899 Other long term (current) drug therapy; Z72.0 Tobacco use
CPT/HCPCS: 71046; 82375; 99282; A4216

== ENCOUNTER → 2019-12-16 12:04 | Outpatient (CLI) | payer MEDICAID, SELFPAY ==
[2019-12-16 10:30] VITALS: BMI 33.3
[2019-12-16 15:28] LABS: ALB/GLOB Ratio 1.3 RATIO (0.9-2.4); AST(SGOT) 16 U/L (15-37); Alanine Aminotransfer ALT/SGPT 25 U/L (13-56); Albumin, Serum 4.1 g/dL (3.2-5.0); Alkaline Phosphatase 107 U/L (45-117); Anion Gap 8 (5-15); BUN 19 mg/dL (7-18); BUN/Creat Ratio 18.6 RATIO (10-20); Chloride 106 mmol/L (98-107); Cholesterol 194 mg/dL (200); Creatinine, Serum 1.02 mg/dL (0.55-1.02); EST Glomerular Filtration Rate 60 mL/min (>60); Est Glom Filt Rate - Afr Amer 72 mL/min (>60); Globulin 3.2 g/dL (2.2-4.2); Glucose 90 mg/dL (74-106); High Density Lipoprotein 88 mg/dL; Potassium 3.9 mmol/L (3.5-5.1); Protein, Total 7.3 g/dL (6.4-8.2); Sodium Level 137 mmol/L (136-145); T4 Free Direct 0.93 ng/dL (0.76-1.46); Thyroid Stim Hormone (TSH) 1.82 uIU/mL (0.358-3.74); Triglycerides 36 mg/dL; Very Low Density Lipoprotein 7 mg/dL (5-40)
== END ==
PROVIDERS: PCP Internal Medicine; Referring Provider Internal Medicine; Visit Provider Internal Medicine
DX: I10 Essential (primary) hypertension (principal); E03.9 Hypothyroidism, unspecified; E78.5 Hyperlipidemia, unspecified
CPT/HCPCS: 36415; 80053; 80061; 84439; 84443

== ENCOUNTER 2019-12-26 10:14 | Emergency (ER) | payer MEDICAID, SELFPAY ==
[2019-12-16 10:30] VITALS: BMI 33.3
[2019-12-26] VITALS (9 sets, daily range): BP systolic 145–188; BP diastolic 73–120; PULSE 68–112; RESP 14–24; TEMP 36.7; O2SAT 98–99; BMI 34.5
--- NOTE | 2019-12-26 10:42 | EKG12_ITS ---
Test Reason : Blood Pressure : / mmHG Vent. Rate : 088 BPM Atrial Rate : 088 BPM P-R Int : 154 ms QRS Dur : 080 ms QT Int : 358 ms P-R-T Axes : 054 -12 049 degrees QTc Int : 433 ms Normal sinus rhythm Normal ECG Confirmed by MILO SPEARS, MELLISSA ([id number]), sports editor THANH PEREZ ([id number]) on 12/29/2019 1:52:08 PM Referred By: ADRIAN Confirmed By:MADHAVI PEDRAZA MD
[2019-12-26] MEDS: MethylPREDNISolone 125 MG/2 ML Vial IV (10:51)
[2019-12-26] MEDS: LORazepam 1 MG Tablet PO (10:51)
--- NOTE | 2019-12-26 10:55 | RAD_ITS ---
STUDY: X-RAY CHEST REASON FOR EXAM: Female, 54 years old. PT C/O COUGH, SOB, CHEST PAIN, FEVER, WHEEZING, CHILLS, AND INCREASED ANXIETY TECHNIQUE: Single AP portable view of the chest. COMPARISON: Comparison is made with prior study dated October 30, 2019. FINDINGS: The lungs are clear and expanded. Calcified granuloma in the right lower lobe. There is no demonstrated pleural abnormality. Normal size heart. Normal mediastinum and rosita. Normal visualized pulmonary arteries. Normal visualized aortic arch and descending thoracic aorta. Normal visualized thoracic spine. Normal visualized ribs, clavicles, and shoulders. There is no demonstrated abnormality of the visualized soft tissue structures of the upper abdomen. RAD/Chest 1 View (Portable) IMPRESSION: Normal x-ray examination of the chest. Electronically Signed: Patrick Keita, at 11:15 EDT , Service support ,
[2019-12-26 10:56] LABS: Absolute Lymphocyte Count 1.97 X10^3/uL (0.83-4.51); Basophil# 0.04 X10^3/uL; Basophil% 0.6 % (0-1); Eosinophil# 0.17 X10^3/uL; Eosinophils% 2.5 % (0-5); Hematocrit 48.2 % (37-47); Hemoglobin 16.2 g/dL (12.0-15.0); Lymphocyte # 1.97 X10^3/ul (4.0); Mean Corp Hgb Conc 33.6 g/dL (32-36); Mean Corpuscular Hgb 29.8 pg (27.0-32.0); Mean Corpuscular Volume 88.8 fL (81-99); Mean Platelet Vol. 10.4 fl (6.2-12.0); Monocyte% 8.8 % (0-10); NRBC Flagged by Analyzer 0 % (0-5); Neutrophil # 3.99 X10^3/uL (2.7-7.7); Neutrophil % 58.7 % (47-70); Platelet Count 300 K/mm3 (150-450); RBC Distribution Width CV 13.5 % (11.6-14.6); RBC Distribution Width SD 43.8 fl (35.1-43.9); Red Blood Count 5.43 M/mm3 (4.2-5.4); White Blood Count 6.8 K/mm3 (4.4-11.0)
--- NOTE | 2019-12-26 10:59 | ED.DCSUM_ITS ---
- ER Visit Summary Date of Service: 12/26/19 Chief Complaint: Anxiety History of Present Illness: The patient is a 54 F who presents for ongoing anxiety. This has been associated with left-sided chest pain, shortness of breath and a cough. She denies any history of heart disease, but does have a history of hypertension, hyperlipidemia, asthma. She is taking her inhalers with minimal relief. She feels depressed, and sometimes she feels that she would rather be . She is not currently suicidal. She exhibits forward thinking and believes her symptoms are related to her pain and ongoing medical issues. She was placed in isolation because she had been complaining of fevers, cough, shortness of breath, and she said she was exposed to her sister who was on a cruise. Her sister was on a cruise in September and has been doing fine. She tells me that she is not actually having fevers. She just feels like she is burning up. She is not having chills. She is not taking Tylenol or Motrin. She has had chest pain, with cough and shortness of breath in the past. She thinks this is related to her asthma. She is taking her asthma medications, but they are not helping. Physical Examination: Afebrile and vital signs unremarkable except for hypertension. Patient in no acute distress. She is tearful and has a depressed mood. She is breathing comfortably. Lungs are clear. Heart is regular. Skin appears normal. Test Results: EKG shows sinus rhythm at a rate of 88. We will check basic labs, troponin, chest x-ray. Emergency Department Course and Treatment: I do not think the patient has coronavirus. She is low risk. She does not have true symptoms. There is no indication for testing. Precautions were maintained just because she triggered the protocol. It sounds like most of her symptoms are related to anxiety. We will check out her heart and lungs and basic labs. There is nothing to suggest PE or aortic dissection. I treated her symptoms with albuterol, Solu-Medrol, and Ativan. Will have social work evaluate. CBC, BMP, troponin unremarkable. Chest x-ray was normal. terrazzo worker helper evaluated the patient. She discussed the patient with the counseling center. It sounds like the patient has not been forthcoming. The patient is decompensating and not taking her meds. She is not eating or sleeping. Crisis will evaluate her. They would like her to be admitted. I added on a tox screen and alcohol. Results are pending. Disposition is pending. After speaking with the patient further, I do not believe that her chest pain or other symptoms have an organic etiology. Her work-up is unremarkable. It sounds like her mental health is contributing to her symptoms and presentation. Alcohol negative. Tox screen still pending. Patient is medically stable for psychiatric transfer. terrazzo worker helper is working on placement. Treatment Plan: As above Disposition: Transfer destination pending Impression: Schizoaffective disorder Failure to thrive This note was generated with [employer] dictation software. It may contain incorrect words, spelling, and punctuation that were not noted in review of the chart prior to signing ED Disposition - Plan for ED Patient: Referrals: Scarlet Navarro MD [Primary Care Provider] -
[2019-12-26 11:09] LABS: Anion Gap 6 (5-15); BUN 24 mg/dL (7-18); BUN/Creat Ratio 23.5 RATIO (10-20); Chloride 103 mmol/L (98-107); Creatinine, Serum 1.02 mg/dL (0.55-1.02); EST Glomerular Filtration Rate 60 mL/min (>60); Est Glom Filt Rate - Afr Amer 72 mL/min (>60); Estimated Creatinine Clearance 53.81 ml/min; Glucose 106 mg/dL (74-106); Potassium 4.1 mmol/L (3.5-5.1); Sodium Level 133 mmol/L (136-145)
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
[2019-12-26 13:29] LABS: Alcohol, Blood (Medical)-Serum < 3.0 mg/dL
[2019-12-26 16:09] LABS: Amphetamine Urine VISTA NEGATIVE (<1000 ng/mL); Barbiturate Urine VISTA NEGATIVE (< 200 ng/mL); Benzodiazepine Urine VISTA NEGATIVE (< 200 ng/mL); Cocaine Urine VISTA NEGATIVE (< 300 ng/mL); Ecstacy Urine VISTA NEGATIVE (< 500 ng/mL); Methadone Urine VISTA NEGATIVE (< 300 ng/mL); PCP Urine VISTA NEGATIVE (< 25 ng/mL); THC Urine VISTA POSITIVE (< 50 ng/mL); Vista UDS pH Range 7
--- NOTE | 2019-12-26 16:40 | ED.RN ---
DISCUSSED WITH DR. CAMPBELL, PT NO LONGER NEEDS DROPLET ISOLATION FOR HER COUGH.
--- NOTE | 2019-12-26 17:00 | CM.ED ---
SOCIAL WORK MET WITH PATIENT IN ROOM AND UPDATED ON PLAN FOR PLACEMENT. REFERRAL CALLED AND FAXED TO JOSE RYAN, CLIENT DEVELOPMENT MANAGER.
--- NOTE | 2019-12-26 17:58 | CM.ED ---
SOCIAL WORK CALL TO [facility], SPOKE WITH JOSÉ MANUEL. UPDATED PATIENT NOW REQUIRING RESTRAINTS PATIENT BECAME AGITATED WITH STAFF DUE TO PINK SLIP AND NOT BEING ABLE TO LEAVE TO GET CLOTHES. PATIENT MAKING SUICIDAL AND HOMICIDAL THREATS. JOSÉ MANUEL AWAITING RESULTS OF UA. ONCE RECEIVED WILL FAX TO [facility]. PER JOSÉ MANUEL, IF PATIENT IS ACCEPTED WILL NEED TO BE FREE OF RESTRAINTS FOR 4 HOURS PRIOR TO TRANSFER. STAFF UPDATED. Evelia GEORGES, CLAIMS CUSTOMER SERVICE REPRESENTATIVE, WINDOWS SECURITY ANALYST.
[2019-12-26] MEDS: Haloperidol Lactate 5 MG/ML Vial IM (17:59)
[2019-12-26] MEDS: Midazolam 2 MG/2 ML Syringe IM (17:59)
[2019-12-26 18:07] LABS: Bacteria 0 SEEN /hpf (None Seen); Mucous, Urine 0 SEEN /hpf (<or=2+); Red Blood Cells-Urine 0 SEEN /hpf (0-5); White Blood Cells 0 SEEN /hpf (0-5)
--- NOTE | 2019-12-26 18:08 | ED.RN ---
PT BECAME AGITATED AFTER THE UPDATE OF BEING SENT TO [facility]. PT WANTS TO LEAVE SO SHE CAN GO TO HER STORAGE SHED AND GET HER CLOTHES. HRO AND MULTIPLE RNS AT BEDSIDE. PT NOW SUICIDAL AND HOMICIDAL TOWARDS NURSING STAFF. MD TO ADD MEDICATIONS. PT INITIALLY REFUSES MEDS BUT THEN STATES SHE'S DONE, DO WHAT EVER THE FUCK YOU WANT. PT HAS GOTTEN DRESSED PRIOR, MADE ATTEMPTS TO LEAVE. PT RESTRAINED TO BED X4. PT REFUSES TELE LEADS, BP CUFF AND PULSE OX. EDUCATION GIVEN AND REAPPLIED. PT DID REMOVE HERSELF FROM RIGHT WRIST WHICH WAS THEN REAPPLIED. SITTER AT BEDSIDE. VIOLENT RESTRAINT DOCUMENTATION STARTED.
[2019-12-26 18:26] LABS: Color, Urine Yellow (Yellow); Glucose, Dipstick Normal (Normal); Ketone-Dipstick Negative (Negative); Leukocyte Esterase-Dipstick Negative /ul (Negative); Nitrite-Dipstick Negative (Negative); Occult Blood-Urine Negative /ul (Negative); Protein-Dipstick 15 mg/dl (Negative); Specific Gravity, Urine 1.015 (1.002-1.030); Urine Bilirubin Dipstick Negative (Negative); Urine Clarity Clear (Clear); Urine Urobilinogen Normal (Normal); Urine pH 6.5 (5.0 - 8.0)
[2019-12-26 18:34] LABS: Squamous Epithelial Cells - UA 0-5 SEEN /hpf (5-10)
--- NOTE | 2019-12-26 19:00 | CM.ED ---
SOCIAL WORK RECEIVED CALL FROM JOSÉ MANUEL WITH [facility]. PER JOSÉ MANUEL, PATIENT HAS BEEN DENIED. REFERRAL TO BE FAXED TO [facility]. Evelia GEORGES MSW, WAX PATTERN REPAIRER.
--- NOTE | 2019-12-26 19:32 | CM.ED ---
SOCIAL WORK REFERRAL FAXED AND CALLED TO [facility]. Evelia GEORGES, CREATIVE WRITING TEACHER, CABLE SPLICER APPRENTICE.
--- NOTE | 2019-12-26 19:35 | ED.RN ---
THIS RN SPOKE WITH PATIENT. PT STATES SHE COULD NOT HANDLE MYSELF IF I HURT SOMEONE. I WON'T HURT NO ONE. PT RESTRAINTS ARE ALL REMOVED AT THIS TIME. PT IS CALM AND COOPERATIVE IN BED. PT STATES SHE UNDERSTANDS IF SHE DOES ANYTHING TO HURT HERSELF OR ANYONE ELSE SHE WILL BE PLACED BACK IN RESTRAINTS
--- NOTE | 2019-12-26 20:19 | CM.ED ---
SOCIAL WORK PATIENT ACCEPTED TO [facility]HP BY DR. GRUBBS TO THE ITU. PATIENT MUST BE OUT OF RESTRAINTS FOR 4 HOURS BEFORE TRANSPORT CAN BE ARRANGED. NURSE TO CALL REPORT TO . STAFF UPDATED. COPY OF PINK SLIP FAXED PER REQUEST. Evelia GEORGES, DIRECTOR OF RETENTION, CUSTOMS OFFICER.
== END 2019-12-27 00:40 ==
LOC: ED 10:43
PROVIDERS: Emergency Medicine; Emergency Provider Emergency Medicine; PCP Internal Medicine
DX: F25.9 Schizoaffective disorder, unspecified (principal); R62.7 Adult failure to thrive; E78.5 Hyperlipidemia, unspecified; F41.9 Anxiety disorder, unspecified; J44.9 Chronic obstructive pulmonary disease, unspecified; E78.00 Pure hypercholesterolemia, unspecified; E03.9 Hypothyroidism, unspecified; I12.9 Hypertensive chronic kidney disease with stage 1 through stage 4 chronic kidney disease, or unspecified chronic kidney disease; N18.9 Chronic kidney disease, unspecified; G43.909 Migraine, unspecified, not intractable, without status migrainosus; Z79.82 Long term (current) use of aspirin; Z79.899 Other long term (current) drug therapy; Z72.0 Tobacco use
CPT/HCPCS: 71045; 80048; 80307; 80320; 81001; 84484; 85025; 93005; 96372; 96374; 99285; A4216; G0480

== ENCOUNTER 2020-01-04 10:30 | Emergency (ER) | payer MEDICAID, SELFPAY ==
[2020-01-01 16:33] VITALS: BMI 34.5
[2020-01-04 10:31] VITALS: BP 157/95; PULSE 98; RESP 24; TEMP 36.4; O2SAT 99; BMI 35.2
--- NOTE | 2020-01-04 10:40 | RAD_ITS ---
STUDY: X-RAY CHEST REASON FOR EXAM: Female, 54 years old. dizzness, sob and leg swelling started this morning TECHNIQUE: PA and lateral views of the chest. COMPARISON: 30 October 2019 FINDINGS: Linear basilar atelectatic changes are present predominantly within the left lower lobe anterior segment best seen on lateral projection. There is no demonstrated pleural abnormality. There is mild cardiac enlargement. Normal mediastinum and rosita. Normal visualized pulmonary arteries. Normal visualized aortic arch and descending thoracic aorta. Normal visualized thoracic spine. Normal visualized ribs, clavicles, and shoulders. There is no demonstrated abnormality of the visualized soft tissue structures of the upper abdomen. RAD/Chest PA and Lateral IMPRESSION: Basilar atelectatic changes as above with no evidence of distinct focal airspace disease. Electronically Signed: Enrique Lange DO at 11:11 EDT , Service support ,
--- NOTE | 2020-01-04 10:40 | EKG12_ITS ---
Test Reason : CHEST PAIN Blood Pressure : / mmHG Vent. Rate : 097 BPM Atrial Rate : 097 BPM P-R Int : 158 ms QRS Dur : 086 ms QT Int : 348 ms P-R-T Axes : 045 -28 024 degrees QTc Int : 441 ms Normal sinus rhythm Possible Left atrial enlargement Left ventricular hypertrophy Abnormal ECG Confirmed by JOSEF SPEARS, BRENDA ([id number]), photography editor ANAND HSIEH ([id number]) on 01/06/2020 8:33:34 AM Referred By: MARISELA Confirmed By:BRENDA BAHENA MD
--- NOTE | 2020-01-04 10:44 | ED.VIS.GEN ---
History of Present Illness Chief Complaint: Chest Pain Informant: Patient Onset: Hours Context: Sudden Onset Timing: Continuous Quality: Pain Location: From the left fourth rib to the clavicle radiating left shoulder Current Severity: Mild Maximum Severity: Moderate Worsened by: Movement and walking Relieved by: Nothing Associated Symptoms: Weight gain, extremity swelling Narrative: Patient is a 54-year-old woman who has multiple medical problems who presents with left-sided chest pain that started at 0800 at rest. She states movement and walking causes the pain to be worse. She denies nausea, vomiting, shortness of breath or diaphoresis. She has stable 3 pillow orthopnea. She reports an 8 PM and weight gain since Sunday. She was not weighed on the same scale, however. She does have history of thyroid disease. She states her medications have not been changed and she has been compliant. She does have history of congestive heart failure as well as atrial fibrillation. She takes aspirin. She was recently admitted for psychiatric hospitalization. She denies fever, chills night sweats. She denies ocular, visual or auditory symptoms. She states she has allergies and does have a runny nose, which is chronic. She denies sore throat. She is a smoker. Her cough is nonproductive. She denies pleuritic pain. She denies paresthesia, anesthesia or motor weakness. 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, non-epileptic Status: Chronic Comment: spells noted while undergoing EEG - not epileptic (6) Depression Status: Chronic (7) Gastritis Status: Chronic (8) HLD (hyperlipidemia) Status: Chronic (9) HTN (hypertension) Status: Chronic (10) Hypothyroidism Status: Chronic (11) PAF (paroxysmal atrial fibrillation) Status: Chronic (12) Schizophrenia Status: Chronic Past Medical History - Allergies and Home Meds Allergies/Adverse Reactions: Allergies adhesive tape Allergy (Verified 01/04/20 10:38) Rash atropine sulfate [From ] Allergy (Verified 01/04/20 10:38) Hives codeine phosphate [From Tylenol-Codeine #3] Allergy (Verified 01/04/20 10:38) breathing problems divalproex sodium [From Depakote] Allergy (Verified 01/04/20 10:38) Unknown hydromorphone HCl [From Dilaudid] Allergy (Verified 01/04/20 10:38) facial blisters,itching hyoscyamine sulfate [From ] Allergy (Verified 01/04/20 10:38) Hives Iodinated Contrast Media [Iodinated Contrast Media - IV Dye] Allergy (Verified 01/04/20 10:38) breathing problems and my bp went up latex Allergy (Verified 01/04/20 10:38) Rash pantoprazole sodium [From Protonix] Allergy (Verified 01/04/20 10:38) Rash phenobarbital [From ] Allergy (Verified 01/04/20 10:38) Hives promethazine HCl [From Phenergan] Allergy (Verified 01/04/20 10:38) Anaphylaxis ramipril Allergy (Verified 01/04/20 10:38) Unknown scopolamine hydrobromide [From ] Allergy (Verified 01/04/20 10:38) Hives ziprasidone mesylate [From Geodon] Allergy (Verified 01/04/20 10:38) Unknown Sulfa (Sulfonamide Antibiotics) Adverse Reaction (Verified 01/04/20 10:38) Vomiting ziprasidone HCl [From Geodon] Adverse Reaction (Verified 01/04/20 10:38) tremors VIDODIN TUSS Allergy (Uncoded 01/04/20 10:38) Itching Primary Care Physician: Scarlet Navarro MD [Primary Care Provider] - Prior records reviewed: Yes Surgical History: noncontributory, - - Cholecystectomy, R carpal tunnel surgery, L foot surgery, Uterine suspension and bladder sling. Lives: Alone Smoking Status: Current every day smoker Alcohol: None Drugs: None - Family History Paternal Family History: Family History (Last Updated 12/02/19 @ 12:34 by Aster Sullivan) Sister Myocardial infarction Colon cancer Mother Hypertension Arthritis Brain aneurysm Sister Colon cancer Family History: Reports: No pertinent history Sibling Family History: Family History (Last Updated 12/02/19 @ 12:34 by Aster Sullivan) Sister Myocardial infarction Colon cancer Mother Hypertension Arthritis Brain aneurysm Sister Colon cancer Family History: Reports: Heart Disease Maternal Family History: Family History (Last Updated 12/02/19 @ 12:34 by Aster Slulivan) Sister Myocardial infarction Colon cancer Mother Hypertension Arthritis Brain aneurysm Sister Colon cancer Family History: Reports: Hypertension Review of Systems General: Denies: Chills, Fever, Subjective, Sweats, Weight loss Eyes: Denies: Visual changes - bilaterally, Blurred Vision - bilaterally ENT: Reports: Rhinorrhea. Denies: Bilateral ear pain, Sore throat Cardiovascular: Reports: Chest pain. Denies: Palpitations Respiratory: Reports: Orthopnea. Denies: Dyspnea, Cough, Sputum, Dyspnea on exertion, Paroxysmal nocturnal dyspnea Gastrointestinal: Denies: Abdominal pain, Nausea, Vomiting, Diarrhea, Melena, Hematochezia Genitourinary: Denies: Dysuria, Hematuria, Frequency Musculoskeletal: Denies: Myalgias, Arthralgias, Neck pain, Back pain, Extremity Pain Skin: Denies: Rash, Wounds Neurological: Denies: Headache, Parasthesia, Numbness Psych: Reports: Depression Endocrine: Denies: Polyuria, Polydipsia Hematologic: Denies: Easy bruising, Easy bleeding Physical Exam Vital Signs/Narrative: Vital Signs Temp Pulse Resp BP Pulse Ox 01/04/20 10:31 97.5 F L 98 24 H 157/95 H 99 Inital Vital Signs reviewed: Yes General: Well nourished, Well developed, Obese, No Acute Distress Head: Normocephalic, Atraumatic. Negative for: Trauma, Tenderness Eyes: Perrl, EOMI. Negative for: Pale conjunctiva, Scleral icterus ENT: Moist mucous membranes, TM's clear. Negative for: No rhinorrhea, Dry mucous membranes, Nasal congestion Neck: Supple, Nontender, No lymphadenopathy, No JVD Cardiovascular: Regular rate, Regular rhythm, No murmurs, Normal S1, Normal S2 Respiratory: No distress, CTA bilaterally, Chest tenderness Abdomen: Soft, Nontender, Nondistended, Normal bowel sounds Back: Nontender, Normal Inspection Extremities: Nontender, Edema - Edema nonpitting Skin: Normal color, No rash Neurological: Alert, Oriented x3, Cranial nerves II-XII grossly intact, Normal Strength, Normal Sensation, Normal DTR Psychological: Normal affect, Normal Mood Diagnostic/Tx/Re-eval Chest X-Ray - ED: 2 View, Read by ED Physician, Normal, Heart, Bony Structures, No Acute Disease, Chronic Changes, - - There is a difference in penetration and suspect this is reason for difference in appearance. There is chronic changes. There is no evidence of infiltrate or effusion. The osseous structures appear normal. 01/04/20 10:40 Chest PA and Lateral [RAD] Stat Laboratory Results 01/04/20 10:30 WBC 6.6 RBC 4.35 Hgb 12.9 Hct 39.0 MCV 89.7 MCH 29.7 MCHC 33.1 RDW Std Deviation 43.7 RDW Coeff of Yonathan 13.2 Plt Count 211 MPV 10.0 Impressions Chest X-Ray 01/04/20 10:40 IMPRESSION: Basilar atelectatic changes as above with no evidence of distinct focal airspace disease. Electronically Signed: Enrique Lange, at 11:11 EDT , Service support , 01/04/20 10:40 Chest PA and Lateral [RAD] Stat Laboratory Results 01/04/20 01/04/20 10:30 10:30 WBC 6.6 RBC 4.35 Hgb 12.9 Hct 39.0 MCV 89.7 MCH 29.7 MCHC 33.1 RDW Std Deviation 43.7 RDW Coeff of Yonathan 13.2 Plt Count 211 MPV 10.0 Sodium 137 Potassium 3.7 Chloride 106 Carbon Dioxide 24.0 Anion Gap 7 BUN 22 H Creatinine 0.97 Estim Creat Clear Calc 56.59 Est GFR (MDRD) Af Amer 76 Est GFR (MDRD) Non-Af 63 BUN/Creatinine Ratio 22.7 H Glucose 102 Calcium 9.2 Troponin I < 0.015 TSH 0.84 - EKG Initial EKG Interpretation: Sinus Rhythm - Sinus rhythm with a ventricular rate of 97. NV interval is 158 ms. QRS duration 86 ms. QT duration 348 ms. There appears to be left atrial enlargement. Computer is reading left ventricular hypertrophy. There also is decreased anterior force. There is no acute ischemic changes. - Medical Decision Making In light of patient's multiple medical problems will obtain EKG to assess for acute ischemia. Chest x-ray was taken to evaluate for noncardiac etiology i.e. pneumonia, pneumothorax and congestive heart failure. CBC was obtained to assess white count and H&H. Because patient has nonpitting edema with weight gain and history of hypothyroidism need to evaluate for exacerbation of her hypothyroidism. Patient's troponin is normal. Chest x-ray was normal. TSH was normal. Patient was informed the cause of her pain is unknown. She began to cry. She states her something wrong. She was informed based on her heart score she is low risk and that she could be discharged home. She was given option of staying for repeat EKG and troponin at 3 hours. She declined. ED Disposition - Plan for ED Patient: Disposition: Home or Assisted Living Diagnosis: Left-sided chest pain Instructions: CHEST PAIN, Uncertain Cause Referrals: Scarlet Navarro MD [Primary Care Provider] - 3-5 Days
[2020-01-04 10:47] LABS: Hemoglobin 12.9 g/dL (12.0-15.0); Mean Corp Hgb Conc 33.1 g/dL (32-36); Mean Corpuscular Hgb 29.7 pg (27.0-32.0); Mean Corpuscular Volume 89.7 fL (81-99); Platelet Count 211 K/mm3 (150-450); RBC Distribution Width CV 13.2 % (11.6-14.6); RBC Distribution Width SD 43.7 fl (35.1-43.9); Red Blood Count 4.35 M/mm3 (4.2-5.4); White Blood Count 6.6 K/mm3 (4.4-11.0)
[2020-01-04 11:12] LABS: Anion Gap 7 (5-15); BUN 22 mg/dL (7-18); BUN/Creat Ratio 22.7 RATIO (10-20); Calcium,Total 9.2 mg/dL (8.5-10.1); Chloride 106 mmol/L (98-107); Creatinine, Serum 0.97 mg/dL (0.55-1.02); EST Glomerular Filtration Rate 63 mL/min (>60); Est Glom Filt Rate - Afr Amer 76 mL/min (>60); Estimated Creatinine Clearance 56.59 ml/min; Glucose 102 mg/dL (74-106); Potassium 3.7 mmol/L (3.5-5.1); Sodium Level 137 mmol/L (136-145); Thyroid Stim Hormone (TSH) 0.84 uIU/mL (0.358-3.74)
== END 2020-01-04 12:17 | disposition home or self-care (01) ==
PROVIDERS: Emergency Provider Emergency Medicine; PCP Internal Medicine
DX: R07.89 Other chest pain (principal); R05 Cough; J34.89 Other specified disorders of nose and nasal sinuses; E66.9 Obesity, unspecified; E11.22 Type 2 diabetes mellitus with diabetic chronic kidney disease; I13.0 Hypertensive heart and chronic kidney disease with heart failure and stage 1 through stage 4 chronic kidney disease, or unspecified chronic kidney disease; N18.3 Chronic kidney disease, stage 3 (moderate); I50.9 Heart failure, unspecified; F32.9 Major depressive disorder, single episode, unspecified; E78.5 Hyperlipidemia, unspecified; E03.9 Hypothyroidism, unspecified; I48.0 Paroxysmal atrial fibrillation; F20.9 Schizophrenia, unspecified; J44.9 Chronic obstructive pulmonary disease, unspecified; Z87.19 Personal history of other diseases of the digestive system; Z79.82 Long term (current) use of aspirin; Z79.899 Other long term (current) drug therapy; F17.200 Nicotine dependence, unspecified, uncomplicated
CPT/HCPCS: 71046; 80048; 84443; 84484; 85027; 93005; 99284; A4216

== ENCOUNTER → 2020-01-05 13:17 | Outpatient (CLI) | payer MEDICAID, SELFPAY ==
[2020-01-04 10:31] VITALS: BMI 35.2
[2020-01-05 14:11] LABS: PTHIN 37.9 pg/mL (18.4-80.1)
[2020-01-05 14:15] LABS: Vitamin D,25 Hydroxy 46.1 ng/mL
[2020-01-05 14:18] LABS: Protein, Urine (Random) 6.8 mg/dL (<11.9); Protein:Creat Ratio 86 mg/g CRE (0-200)
[2020-01-05 14:20] LABS: Albumin, Serum 3.5 g/dL (3.2-5.0); BUN 22 mg/dL (7-18); BUN/Creat Ratio 23.3 RATIO (10-20); Calcium,Total 8.7 mg/dL (8.5-10.1); Chloride 105 mmol/L (98-107); Creatinine, Serum 0.95 mg/dL (0.55-1.02); EST Glomerular Filtration Rate 65 mL/min (>60); Est Glom Filt Rate - Afr Amer 79 mL/min (>60); Glucose 97 mg/dL (74-106); Phosphorus 3.4 mg/dL (2.5-4.9); Potassium 4.1 mmol/L (3.5-5.1); Sodium Level 138 mmol/L (136-145)
== END ==
PROVIDERS: PCP Internal Medicine; Referring Provider Internal Medicine Nephrology; Visit Provider Internal Medicine Nephrology
DX: N18.3 Chronic kidney disease, stage 3 (moderate) (principal)
CPT/HCPCS: 36415; 80069; 82306; 82570; 83970; 84156

== ENCOUNTER → 2020-01-13 07:21 | Outpatient (CLI) | payer MEDICAID, SELFPAY ==
[2019-12-16 10:30] VITALS: BMI 33.3
[2020-01-04 10:31] VITALS: BMI 35.2
[2020-01-13 08:39] LABS: Hematocrit 41.3 % (37-47); Hemoglobin 14.3 g/dL (12.0-15.0); Mean Corp Hgb Conc 34.6 g/dL (32-36); Mean Corpuscular Hgb 31.2 pg (27.0-32.0); Mean Platelet Vol. 10.4 fl (6.2-12.0); Platelet Count 264 K/mm3 (150-450); RBC Distribution Width CV 13.5 % (11.6-14.6); Red Blood Count 4.59 M/mm3 (4.2-5.4); White Blood Count 5.7 K/mm3 (4.4-11.0)
--- NOTE | 2020-01-14 17:23 | PFTCOMP_ITS ---
COMPLETE PULMONARY FUNCTION TEST INTERPRETATION Brief HPI: Patient is a 54 year old female, currently under the care of Dr. Navarro, who presents to [facility] for complete pulmonary function tests secondary to diagnosis of asthma. Respiratory therapist reports good effort and reproducible results. However, patient did have a cough throughout testing. Interpretation: Forced expiration spirometry shows no large airways obstructive ventilatory defect with an FEV1 of 99% predicted. There is no significant bronchodilator response by strict ATS criteria. Spirograms are of good quality and plateau normally. The respiratory flow volume loop shows a normal pattern. Lung volumes by body plethysmography show a normal total lung capacity at 4.86 L, 98% predicted. All other lung volumes are within normal limits. Diffusion capacity by carbon monoxide was unable to be completed. The airway resistance is elevated. No previous pulmonary function tests were available for review. Impression: These pulmonary function tests are grossly within normal limits.
== END ==
PROVIDERS: Internal Medicine Nephrology; PCP Internal Medicine; Referring Provider Internal Medicine; Visit Provider Internal Medicine
DX: J45.909 Unspecified asthma, uncomplicated (principal); N18.3 Chronic kidney disease, stage 3 (moderate)
CPT/HCPCS: 85027; 94060; 94726

== ENCOUNTER → 2020-04-01 09:19 | Outpatient (CLI) | payer MEDICAID, SELFPAY ==
[2020-02-11 13:33] VITALS: BMI 35.2
[2020-04-01 09:51] LABS: Hematocrit 40.4 % (37-47); Hemoglobin 13.5 g/dL (12.0-15.0); Mean Corp Hgb Conc 33.4 g/dL (32-36); Mean Corpuscular Hgb 30.3 pg (27.0-32.0); Mean Corpuscular Volume 90.8 fL (81-99); Mean Platelet Vol. 9.7 fl (6.2-12.0); Platelet Count 273 K/mm3 (150-450); RBC Distribution Width CV 13.4 % (11.6-14.6); RBC Distribution Width SD 44.1 fl (35.1-43.9); Red Blood Count 4.45 M/mm3 (4.2-5.4); White Blood Count 7.1 K/mm3 (4.4-11.0)
[2020-04-01 10:14] LABS: Albumin, Serum 4.2 g/dL (3.2-5.0); BUN 19 mg/dL (7-18); BUN/Creat Ratio 18.6 RATIO (10-20); Chloride 101 mmol/L (98-107); Creatinine, Serum 1.02 mg/dL (0.55-1.02); EST Glomerular Filtration Rate 60 mL/min (>60); Est Glom Filt Rate - Afr Amer 72 mL/min (>60); Glucose 104 mg/dL (74-106); Phosphorus 2.4 mg/dL (2.5-4.9); Potassium 3.6 mmol/L (3.5-5.1); Sodium Level 134 mmol/L (136-145)
[2020-04-02 16:08] LABS: Protein, Urine (Random) 10.7 mg/dL (<11.9); Protein:Creat Ratio 137 mg/g CRE (0-200)
== END ==
PROVIDERS: PCP Internal Medicine; Referring Provider Internal Medicine Nephrology; Visit Provider Internal Medicine Nephrology
DX: N18.3 Chronic kidney disease, stage 3 (moderate) (principal)
CPT/HCPCS: 36415; 80069; 82306; 82570; 83970; 84156; 85027

== ENCOUNTER → 2020-04-02 | Outpatient (CLI) | payer MEDICAID, SELFPAY ==
[2020-02-11 13:33] VITALS: BMI 35.2
== END | disposition home or self-care (01) ==
LOC: LABSPEC 15:07
PROVIDERS: PCP Internal Medicine; Referring Provider Internal Medicine Nephrology; Visit Provider Internal Medicine Nephrology
DX: N18.3 Chronic kidney disease, stage 3 (moderate) (principal)

== ENCOUNTER → 2020-04-07 13:45 | Outpatient (CLI) | payer MEDICAID, SELFPAY ==
[2020-04-07 13:15] VITALS: BMI 35.2
[2020-04-07 16:27] LABS: Thyroid Stim Hormone (TSH) 1.53 uIU/mL (0.358-3.74)
== END ==
PROVIDERS: PCP Internal Medicine; Referring Provider Internal Medicine; Visit Provider Internal Medicine
DX: E03.9 Hypothyroidism, unspecified (principal)
CPT/HCPCS: 36415; 84443

== ENCOUNTER → 2020-04-19 10:07 | Outpatient (CLI) | payer MEDICAID, SELFPAY ==
[2020-04-07 13:15] VITALS: BMI 35.2
--- NOTE | 2020-04-19 10:09 | EKG12_ITS ---
Test Reason : Blood Pressure : / mmHG Vent. Rate : 075 BPM Atrial Rate : 075 BPM P-R Int : 162 ms QRS Dur : 088 ms QT Int : 382 ms P-R-T Axes : 047 -07 033 degrees QTc Int : 426 ms Normal sinus rhythm Normal ECG Confirmed by JOSEF SPEARS, BRENDA ([id number]), photography editor ANAND HSIEH ([id number]) on 04/20/2020 10:59:56 AM Referred By: Scarlet Navarro Confirmed By:BRENDA BAHENA MD
--- NOTE | 2020-04-19 10:25 | RAD_ITS ---
STUDY: X-RAY - PELVIS AND RIGHT HIP REASON FOR EXAM: Female, 55 years old. right hip pain x 2 months. patient states she had a knot in lateral thigh region. pain with movement. TECHNIQUE: 2 views of the pelvis and hip. COMPARISON: 07/09/2019 FINDINGS: There is a non-specific bowel gas pattern. Normal visualized soft tissue structures. Normal bilateral iliac wings, sacroiliac joints and visualized sacrum. Normal bilateral superior and inferior pubic rami. Normal pubic symphysis. Normal bilateral ischial tuberosities. Normal visualized femoral head. Normal acetabulum. Normal hip joint. RAD/HIP, UNI W/ Pelvis 2-3 Views IMPRESSION: Normal x-ray examination of the pelvis and hip. Electronically Signed: Juan Carlos Slater MD at 21:30 EDT Tel , Service support ,
== END ==
PROVIDERS: PCP Internal Medicine; Referring Provider Internal Medicine; Visit Provider Internal Medicine
DX: M25.551 Pain in right hip (principal); R00.0 Tachycardia, unspecified
CPT/HCPCS: 73502; 93005

== ENCOUNTER 2020-07-06 22:00 | Emergency (ER) | payer MEDICAID, SELFPAY ==
[2020-04-07 13:15] VITALS: BMI 35.2
[2020-07-06 22:01] VITALS: BP 86/45; PULSE 97; RESP 18; TEMP 35.7; O2SAT 97; BMI 34.1
[2020-07-06 22:04] VITALS: BP 113/45
--- NOTE | 2020-07-06 22:37 | CT_ITS ---
STUDY: CT BRAIN WITHOUT CONTRAST REASON FOR EXAM: Female, 55 years old. Dizziness, falls, SYNCOPE, WEAKNESS, HAPPENING SINCE MARCH RADIATION DOSAGE (If Supplied By Facility): CTDIvol = ( 44.99 ) mGy, DLP = ( 796.11 ) mGycm TECHNIQUE: Transaxial CT imaging of the brain was performed without administration of intravenous contrast material. Individualized dose optimization techniques were used for this CT. COMPARISON: CT brain noncontrast 09/06/2019 FINDINGS: Normal soft tissue structures. Normal calvarium. Normal size ventricles and extra-axial spaces for the patient''s age. Normal white matter tracts of the cerebral hemispheres. Normal basal ganglia and thalami. Normal brainstem. Normal cerebellum. There is no intracranial hemorrhage. There are no findings of an acute ischemic infarction. Mild chronic sinus disease right sphenoid sinus, slightly increased. CT/Brain/Head without Contrast IMPRESSION: There is no acute intracranial pathology. There is no significant interval change. Right chronic sphenoid sinusitis Electronically Signed: Lilliam Pringle MD at 0:22 EDT , Service support ,
--- NOTE | 2020-07-06 22:38 | EKG12_ITS ---
Test Reason : WEAKNESS Blood Pressure : / mmHG Vent. Rate : 081 BPM Atrial Rate : 081 BPM P-R Int : 162 ms QRS Dur : 080 ms QT Int : 386 ms P-R-T Axes : 059 008 039 degrees QTc Int : 448 ms Normal sinus rhythm Normal ECG Confirmed by JOSEF SPEARS, BRENDA ([id number]), greeting card editor ANAND HSIEH ([id number]) on 07/09/2020 1:04:29 PM Referred By: JACQUEILNE Confirmed By:BRENDA BAHENA MD
--- NOTE | 2020-07-06 22:39 | ED.VIS.GEN ---
History of Present Illness Chief Complaint: Weakness Informant: Patient Narrative: 55-year-old female presents with generalized weakness. She states this is been an ongoing problem since 2015. She states that when she stands too long she gets lightheaded and sometimes passes out. He states that sometimes when she stands she gets sweaty before feeling lightheaded. She states that she feels it is worsened over the last couple of days. She states she does not have nausea but has decreased p.o. intake. She denies any chest pain, palpitations, shortness of breath, fever, chills. She does state that she has a history of low sodium which could be the cause of her weakness. - Past Medical History (1) Hyponatremia Status: Chronic (2) Hypokalemia Status: Chronic (3) PAF (paroxysmal atrial fibrillation) Status: Chronic (4) HTN (hypertension) Status: Chronic (5) HLD (hyperlipidemia) Status: Chronic (6) Hypothyroidism Status: Chronic Past Medical History - Allergies and Home Meds Allergies/Adverse Reactions: Allergies adhesive tape Allergy (Verified 04/07/20 13:12) Rash atropine sulfate [From ] Allergy (Verified 04/07/20 13:12) Hives codeine phosphate [From Tylenol-Codeine #3] Allergy (Verified 04/07/20 13:12) breathing problems divalproex sodium [From Depakote] Allergy (Verified 04/07/20 13:12) Unknown hydromorphone HCl [From Dilaudid] Allergy (Verified 04/07/20 13:12) facial blisters,itching hyoscyamine sulfate [From ] Allergy (Verified 04/07/20 13:12) Hives Iodinated Contrast Media [Iodinated Contrast Media - IV Dye] Allergy (Verified 04/07/20 13:12) breathing problems and my bp went up latex Allergy (Verified 04/07/20 13:12) Rash pantoprazole sodium [From Protonix] Allergy (Verified 04/07/20 13:12) Rash phenobarbital [From ] Allergy (Verified 04/07/20 13:12) Hives promethazine HCl [From Phenergan] Allergy (Verified 04/07/20 13:12) Anaphylaxis ramipril Allergy (Verified 04/07/20 13:12) Unknown scopolamine hydrobromide [From ] Allergy (Verified 04/07/20 13:12) Hives ziprasidone mesylate [From Geodon] Allergy (Verified 04/07/20 13:12) Unknown Sulfa (Sulfonamide Antibiotics) Adverse Reaction (Verified 04/07/20 13:12) Vomiting ziprasidone HCl [From Geodon] Adverse Reaction (Verified 04/07/20 13:12) tremors VIDODIN TUSS Allergy (Uncoded 04/07/20 13:12) Itching Primary Care Physician: Scarlet Navarro MD [Primary Care Provider] - Prior records reviewed: Yes Past Medical History: - - Reviewed in problem list Surgical History: noncontributory, - - Cholecystectomy, R carpal tunnel surgery, L foot surgery, Uterine suspension and bladder sling. Smoking Status: Current every day smoker Alcohol: None Drugs: None - Family History Paternal Family History: Family History (Last Reviewed 04/07/20 @ 13:12 by Judd Mcgovern) Sister Myocardial infarction Colon cancer Mother Hypertension Arthritis Brain aneurysm Sister Colon cancer Family History: Reports: No pertinent history Sibling Family History: Family History (Last Reviewed 04/07/20 @ 13:12 by Judd Mcgovern) Sister Myocardial infarction Colon cancer Mother Hypertension Arthritis Brain aneurysm Sister Colon cancer Family History: Reports: Heart Disease Maternal Family History: Family History (Last Reviewed 04/07/20 @ 13:12 by Judd Mcgovern) Sister Myocardial infarction Colon cancer Mother Hypertension Arthritis Brain aneurysm Sister Colon cancer Family History: Reports: Hypertension Review of Systems General: Reports: Malaise, - - Generalized weakness and episodes of feeling like she is going to pass out. Denies: Chills, Fever, Sweats Eyes: Denies: Visual changes - bilaterally, Diplopia ENT: Denies: Rhinorrhea, Sore throat Cardiovascular: Denies: Chest pain, Palpitations Respiratory: Denies: Dyspnea, Cough, Dyspnea on exertion Gastrointestinal: Denies: Abdominal pain, Nausea, Vomiting, Diarrhea, Constipation Genitourinary: Denies: Dysuria, Hematuria Musculoskeletal: Denies: Myalgias, Arthralgias Skin: Denies: Rash, Abscess Neurological: Denies: Headache Physical Exam Vital Signs/Narrative: Vital Signs Temp Pulse Resp BP Pulse Ox 07/06/20 22:04 113/45 L 07/06/20 22:01 96.2 F L 97 18 86/45 L 97 Inital Vital Signs reviewed: Yes General: Well nourished, No Acute Distress Head: Normocephalic, Atraumatic Eyes: Perrl, EOMI. Negative for: Scleral icterus ENT: Moist mucous membranes, No rhinorrhea Cardiovascular: Regular rate, Regular rhythm Respiratory: No distress, CTA bilaterally Abdomen: Soft, Nontender, Nondistended Back: Nontender, Normal Inspection Extremities: Nontender Skin: Normal color, No rash Neurological: Alert, Oriented x3 Psychological: Normal affect, Normal Mood Diagnostic/Tx/Re-eval Clinical Impression(s) from Imaging Studies Brain CT 07/06/20 22:37 IMPRESSION: There is no acute intracranial pathology. There is no significant interval change. Right chronic sphenoid sinusitis Electronically Signed: Lilliam Pringle MD at 0:22 EDT , Service support , Chest X-Ray 07/06/20 23:37 IMPRESSION: No acute cardiopulmonary disease. No significant interval change. Electronically Signed: Lilliam Pringle MD at 0:11 EDT , Service support , Laboratory Data 07/06/20 07/06/20 07/07/20 23:45 23:45 01:04 WBC 10.5 RBC 5.08 Hgb 15.0 Hct 43.1 MCV 84.8 MCH 29.5 MCHC 34.8 RDW Std Deviation 39.8 RDW Coeff of Yonathan 12.8 Plt Count 277 MPV 9.5 Immature Gran % (Auto) 0.300 Neut % (Auto) 76.3 H Lymph % (Auto) 11.9 L [place] % (Auto) 10.1 H Eos % (Auto) 1.1 Baso % (Auto) 0.3 Absolute Neuts (auto) 8.1 H Absolute Lymphs (auto) 1.25 Nucleated RBC % 0 Sodium 131 L Potassium 3.8 Chloride 99 Carbon Dioxide 24.0 Anion Gap 8 BUN 11 Creatinine 1.14 H Estim Creat Clear Calc 49.58 Est GFR (MDRD) Af Amer 63 Est GFR (MDRD) Non-Af 52 L BUN/Creatinine Ratio 9.6 L Glucose 111 H Calcium 9.3 Total Bilirubin 0.50 AST 12 L ALT 22 Alkaline Phosphatase 121 H Troponin I < 0.015 Total Protein 7.3 Albumin 4.1 Globulin 3.2 Albumin/Globulin Ratio 1.3 Urine Color Yellow Urine Clarity Clear Urine pH 5.0 Ur Specific [place] 1.025 Urine Protein 15 H Urine Glucose (UA) Normal Urine Ketones 15 H Urine Occult Blood Negative Urine Nitrite Negative Urine Bilirubin Negative Urine Urobilinogen Normal Ur Leukocyte Esterase 25 H Urine RBC 0 SEEN Urine WBC 0-5 SEEN Ur Squamous Epith Cells 0 SEEN Urine Bacteria 1+ Urine Mucus 0 SEEN Urine Opiates Screen Urine Methadone Screen Ur Barbiturates Screen Ur Phencyclidine Scrn Ur Amphetamines Screen U Methamphetamin-MDMA U Benzodiazepines Scrn Urine Cocaine Screen U Cannabinoids Screen Ur Drug Screen Comment 07/07/20 01:04 WBC RBC Hgb Hct MCV MCH MCHC RDW Std Deviation RDW Coeff of Yonathan Plt Count MPV Immature Gran % (Auto) Neut % (Auto) Lymph % (Auto) [place] % (Auto) Eos % (Auto) Baso % (Auto) Absolute Neuts (auto) Absolute Lymphs (auto) Nucleated RBC % Sodium Potassium Chloride Carbon Dioxide Anion Gap BUN Creatinine Estim Creat Clear Calc Est GFR (MDRD) Af Amer Est GFR (MDRD) Non-Af BUN/Creatinine Ratio Glucose Calcium Total Bilirubin AST ALT Alkaline Phosphatase Troponin I Total Protein Albumin Globulin Albumin/Globulin Ratio Urine Color Urine Clarity Urine pH Ur Specific [place] Urine Protein Urine Glucose (UA) Urine Ketones Urine Occult Blood Urine Nitrite Urine Bilirubin Urine Urobilinogen Ur Leukocyte Esterase Urine RBC Urine WBC Ur Squamous Epith Cells Urine Bacteria Urine Mucus Urine Opiates Screen NEGATIVE Urine Methadone Screen NEGATIVE Ur Barbiturates Screen NEGATIVE Ur Phencyclidine Scrn NEGATIVE Ur Amphetamines Screen POSITIVE H U Methamphetamin-MDMA POSITIVE H U Benzodiazepines Scrn NEGATIVE Urine Cocaine Screen NEGATIVE U Cannabinoids Screen POSITIVE H Ur Drug Screen Comment - Rhythm Strip Rhythm Strip: Sinus Rhythm Rate: 81 - EKG Initial EKG Interpretation: Sinus Rhythm, No Acute Injury Pattern - Medical Decision Making Patient presented with concern for weakness and stated that she felt like she was going to faint. She said this is been an ongoing problem for couple of years. Her physical exam is normal. Orthostatic vital signs were normal. EKG is sinus rhythm at 81 bpm. Lab work was unremarkable with the exception of her urine tox screen which shows methamphetamine and marijuana. I feel this is likely the source of her symptoms. Chest x-ray and CT brain were also negative. At this point I feel the patient is stable to be discharged home with a sober ride. She did obtain one and is discharged in stable condition. Impression: 1. Generalized weakness 2. Methamphetamine use 3. Marijuana use ED Disposition - Plan for ED Patient: Disposition: Home or Assisted Living Instructions: Understanding Methamphetamine Abuse and Addiction, ED Marijuana Abuse, ED Weakness [facility] Referrals: Scarlet Navarro MD [Primary Care Provider] -
--- NOTE | 2020-07-06 23:37 | RAD_ITS ---
STUDY: X-RAY CHEST REASON FOR EXAM: Female, 55 years old. CONTINUED DIZZINESS, FALLS, SYNCOPE AND WEAKNESS. HX OF SAME SINCE MARCH. TECHNIQUE: Single AP portable view of the chest. COMPARISON: 01/04/2020 FINDINGS: The lungs are clear and expanded. Stable calcified granuloma right base. There is no demonstrated pleural abnormality. Normal size heart. Normal mediastinum and rosita. Normal visualized pulmonary arteries. Normal visualized aortic arch and descending thoracic aorta. Normal visualized thoracic spine. Normal visualized ribs, clavicles, and shoulders. There is no demonstrated abnormality of the visualized soft tissue structures of the upper abdomen. RAD/Chest 1 View (Portable) IMPRESSION: No acute cardiopulmonary disease. No significant interval change. Electronically Signed: Lilliam Pringle MD at 0:11 EDT , Service support ,
[2020-07-06 23:53] LABS: Absolute Lymphocyte Count 1.25 X10^3/uL (0.83-4.51); Absolute Neutrophil Count 8.1 X10^3/uL (2.0-7.7); Basophil# 0.03 X10^3/uL; Basophil% 0.3 % (0-1); Eosinophil# 0.12 X10^3/uL; Eosinophils% 1.1 % (0-5); Hematocrit 43.1 % (37-47); Lymphocyte # 1.25 X10^3/ul (4.0); Lymphocyte % 11.9 % (19-41); Mean Corp Hgb Conc 34.8 g/dL (32-36); Mean Corpuscular Hgb 29.5 pg (27.0-32.0); Mean Corpuscular Volume 84.8 fL (81-99); Mean Platelet Vol. 9.5 fl (6.2-12.0); Monocyte# 1.06 X10^3/uL; Monocyte% 10.1 % (0-10); NRBC Flagged by Analyzer 0 % (0-5); Neutrophil # 8.05 X10^3/uL (2.7-7.7); Neutrophil % 76.3 % (47-70); Platelet Count 277 K/mm3 (150-450); RBC Distribution Width CV 12.8 % (11.6-14.6); RBC Distribution Width SD 39.8 fl (35.1-43.9); Red Blood Count 5.08 M/mm3 (4.2-5.4); White Blood Count 10.5 K/mm3 (4.4-11.0)
[2020-07-07 00:12] LABS: ALB/GLOB Ratio 1.3 RATIO (0.9-2.4); AST(SGOT) 12 U/L (15-37); Alanine Aminotransfer ALT/SGPT 22 U/L (13-56); Albumin, Serum 4.1 g/dL (3.2-5.0); Alkaline Phosphatase 121 U/L (45-117); Anion Gap 8 (5-15); BUN 11 mg/dL (7-18); BUN/Creat Ratio 9.6 RATIO (10-20); Calcium,Total 9.3 mg/dL (8.5-10.1); Chloride 99 mmol/L (98-107); Creatinine, Serum 1.14 mg/dL (0.55-1.02); EST Glomerular Filtration Rate 52 mL/min (>60); Est Glom Filt Rate - Afr Amer 63 mL/min (>60); Estimated Creatinine Clearance 49.58 ml/min; Globulin 3.2 g/dL (2.2-4.2); Glucose 111 mg/dL (74-106); Potassium 3.8 mmol/L (3.5-5.1); Protein, Total 7.3 g/dL (6.4-8.2); Sodium Level 131 mmol/L (136-145)
[2020-07-07 01:05] VITALS: BP 136/73; BP 137/75; PULSE 82; PULSE 88
[2020-07-07 01:12] LABS: Mucous, Urine 0 SEEN /hpf (<or=2+); Red Blood Cells-Urine 0 SEEN /hpf (0-5); Squamous Epithelial Cells - UA 0 SEEN /hpf (5-10)
[2020-07-07 01:16] LABS: Glucose, Dipstick Normal (Normal); Ketone-Dipstick 15 mg/dl (Negative); Leukocyte Esterase-Dipstick 25 /ul (Negative); Nitrite-Dipstick Negative (Negative); Occult Blood-Urine Negative /ul (Negative); Protein-Dipstick 15 mg/dl (Negative); Specific Gravity, Urine 1.025 (1.002-1.030); Urine Bilirubin Dipstick Negative (Negative); Urine Urobilinogen Normal (Normal)
[2020-07-07 01:23] LABS: Color, Urine Yellow (Yellow); Urine Clarity Clear (Clear)
[2020-07-07 01:38] LABS: Bacteria 1+ /hpf (None Seen); White Blood Cells 0-5 SEEN /hpf (0-5)
[2020-07-07 01:42] LABS: Amphetamine Urine VISTA POSITIVE (<1000 ng/mL); Barbiturate Urine VISTA NEGATIVE (< 200 ng/mL); Benzodiazepine Urine VISTA NEGATIVE (< 200 ng/mL); Cocaine Urine VISTA NEGATIVE (< 300 ng/mL); Ecstacy Urine VISTA POSITIVE (< 500 ng/mL); Methadone Urine VISTA NEGATIVE (< 300 ng/mL); PCP Urine VISTA NEGATIVE (< 25 ng/mL); THC Urine VISTA POSITIVE (< 50 ng/mL); Vista UDS pH Range 5
[2020-07-07 02:19] VITALS: BP 116/59
== END 2020-07-07 02:19 | disposition home or self-care (01) ==
PROVIDERS: Emergency Provider Student in an Organized Health Care Education/Training Program; PCP Internal Medicine
DX: R53.1 Weakness (principal); F15.90 Other stimulant use, unspecified, uncomplicated; F12.90 Cannabis use, unspecified, uncomplicated; E87.1 Hypo-osmolality and hyponatremia; I48.0 Paroxysmal atrial fibrillation; I10 Essential (primary) hypertension; E78.5 Hyperlipidemia, unspecified; E03.9 Hypothyroidism, unspecified; Z79.82 Long term (current) use of aspirin; Z79.899 Other long term (current) drug therapy; F17.200 Nicotine dependence, unspecified, uncomplicated
CPT/HCPCS: 70450; 71045; 80053; 80307; 81001; 84484; 85025; 93005; 96360; 99285; J7040; P9612

== ENCOUNTER 2020-07-14 15:37 | Emergency (ER) | payer MEDICAID, SELFPAY ==
[2020-07-14 15:38] VITALS: BP 186/96; PULSE 98; RESP 15; TEMP 36.7; BMI 35.0
--- NOTE | 2020-07-14 16:10 | EKG12_ITS ---
Test Reason : CP Blood Pressure : / mmHG Vent. Rate : 081 BPM Atrial Rate : 081 BPM P-R Int : 162 ms QRS Dur : 074 ms QT Int : 396 ms P-R-T Axes : 073 -12 027 degrees QTc Int : 460 ms Normal sinus rhythm Normal ECG Confirmed by JOSEF SPEARS, BRENDA ([id number]), script editor ANAND HSIEH ([id number]) on 07/19/2020 2:19:02 PM Referred By: JACQUELINE/WESLEY Confirmed By:BRENDA BAHENA MD
--- NOTE | 2020-07-14 16:10 | CT_ITS ---
STUDY: CT BRAIN WITHOUT CONTRAST REASON FOR EXAM: Female, 55 years old. Chest pain, nausea, syncope, weakness. Hx hypertension, cervical cancer. RADIATION DOSAGE (If Supplied By Facility): CTDIvol = ( 44.99 ) mGy, DLP = ( 779.24 ) mGycm TECHNIQUE: Transaxial CT imaging of the brain was performed without administration of intravenous contrast material. Individualized dose optimization techniques were used for this CT. COMPARISON: 07/06/2020 FINDINGS: Normal soft tissue structures. Normal calvarium. Normal size ventricles and extra-axial spaces for the patient''s age. Normal white matter tracts of the cerebral hemispheres. Normal basal ganglia and thalami. Normal brainstem. Normal cerebellum. There is no intracranial hemorrhage. There are no findings of an acute ischemic infarction. Normal visualized paranasal sinuses. CT/Brain/Head without Contrast IMPRESSION: Normal unenhanced CT scan of the brain. Electronically Signed: Ilan Naqvi MD at 17:33 EDT Tel , Service support ,
[2020-07-14] MEDS: 0.9% Normal Saline 1,000 ML 1000 ML IV (16:22)
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
--- NOTE | 2020-07-14 16:24 | ED.DCSUM_ITS ---
History of Present Illness Chief Complaint: Chest Pain Informant: Patient Narrative: 55-year-old female with past medical history of hypertension presents with concern for weakness. Patient states over the past few weeks she has had increasing weakness. States that she has been dealing with orthostatic hypotension over the past 3 years. States that no one is been able to help her with this issue. Patient states today she was walking from her chair and became very weak and also developed chest pain. States his chest pain was retrosternal and aching. Denies any shortness of breath, nausea, vomiting, diaphoresis. States she is not having active chest pain. Denies any history of DVT or pulmonary embolism. Past Medical History - Allergies and Home Meds Allergies/Adverse Reactions: Allergies adhesive tape Allergy (Verified 07/14/20 15:45) Rash atropine sulfate [From ] Allergy (Verified 07/14/20 15:45) Hives codeine phosphate [From Tylenol-Codeine #3] Allergy (Verified 07/14/20 15:45) breathing problems divalproex sodium [From Depakote] Allergy (Verified 07/14/20 15:45) Unknown hydromorphone HCl [From Dilaudid] Allergy (Verified 07/14/20 15:45) facial blisters,itching hyoscyamine sulfate [From ] Allergy (Verified 07/14/20 15:45) Hives Iodinated Contrast Media [Iodinated Contrast Media - IV Dye] Allergy (Verified 07/14/20 15:45) breathing problems and my bp went up latex Allergy (Verified 07/14/20 15:45) Rash pantoprazole sodium [From Protonix] Allergy (Verified 07/14/20 15:45) Rash phenobarbital [From ] Allergy (Verified 07/14/20 15:45) Hives promethazine HCl [From Phenergan] Allergy (Verified 07/14/20 15:45) Anaphylaxis ramipril Allergy (Verified 07/14/20 15:45) Unknown scopolamine hydrobromide [From ] Allergy (Verified 07/14/20 15:45) Hives ziprasidone mesylate [From Geodon] Allergy (Verified 07/14/20 15:45) Unknown Sulfa (Sulfonamide Antibiotics) Adverse Reaction (Verified 07/14/20 15:45) Vomiting ziprasidone HCl [From Geodon] Adverse Reaction (Verified 07/14/20 15:45) tremors VIDODIN TUSS Allergy (Uncoded 07/14/20 15:45) Itching Primary Care Physician: Scarlet Navarro MD [Primary Care Provider] - Past Medical History: - - HTN, orthostatic hypotension Surgical History: noncontributory, - - Cholecystectomy, R carpal tunnel surgery, L foot surgery, Uterine suspension and bladder sling. Lives: Alone Smoking Status: Current every day smoker Alcohol: None Drugs: None - Family History Paternal Family History: Family History (Last Reviewed 04/07/20 @ 13:12 by Judd Mcgovern) Sister Myocardial infarction Colon cancer Mother Hypertension Arthritis Brain aneurysm Sister Colon cancer Family History: Reports: No pertinent history Sibling Family History: Family History (Last Reviewed 04/07/20 @ 13:12 by Judd Mcgovern) Sister Myocardial infarction Colon cancer Mother Hypertension Arthritis Brain aneurysm Sister Colon cancer Family History: Reports: Heart Disease Maternal Family History: Family History (Last Reviewed 04/07/20 @ 13:12 by Judd Mcgovern) Sister Myocardial infarction Colon cancer Mother Hypertension Arthritis Brain aneurysm Sister Colon cancer Family History: Reports: Hypertension Review of Systems General: Denies: Chills, Fever, Sweats Eyes: Denies: Visual changes - bilaterally, Diplopia ENT: Denies: Rhinorrhea, Sore throat Cardiovascular: Reports: Chest pain. Denies: Palpitations Respiratory: Denies: Dyspnea, Cough, Dyspnea on exertion Gastrointestinal: Denies: Abdominal pain, Nausea, Vomiting, Diarrhea, Melena, Hematochezia Genitourinary: Denies: Dysuria, Hematuria, Frequency Musculoskeletal: Denies: Back pain, Extremity Pain Skin: Denies: Rash, Wounds Neurological: Reports: Weakness. Denies: Headache, Numbness Physical Exam Vital Signs/Narrative: Vital Signs Temp Pulse Resp BP 07/14/20 15:38 98.0 F 98 15 186/96 H Inital Vital Signs reviewed: Yes General: Well nourished, Well developed, No Acute Distress Head: Normocephalic, Atraumatic Eyes: Perrl, EOMI ENT: Moist mucous membranes, No rhinorrhea Neck: Supple, Nontender Cardiovascular: Regular rate, Regular rhythm, No murmurs Respiratory: No distress, CTA bilaterally, Chest nontender Abdomen: Soft, Nontender, Nondistended, Normal bowel sounds Back: Nontender, Normal Inspection Extremities: Nontender, No edema Skin: Normal color, No rash Neurological: Alert, Oriented x3, Cranial nerves II-XII grossly intact, Normal Strength, Normal Sensation Psychological: Normal affect, Normal Mood Diagnostic/Tx/Re-eval Chest X-Ray - ED: 1 View, No Acute Disease Clinical Impression(s) from Imaging Studies Brain CT 07/14/20 16:10 IMPRESSION: Normal unenhanced CT scan of the brain. Electronically Signed: Ilan Naqvi MD at 17:33 EDT Tel , Service support , Chest X-Ray 07/14/20 17:00 IMPRESSION: Normal x-ray examination of the chest. Electronically Signed: Ilan Naqvi MD at 17:32 EDT Tel , Service support , Laboratory Data 07/14/20 07/14/20 07/14/20 15:55 15:55 17:20 WBC 7.1 RBC 5.53 H Hgb 16.1 H Hct 47.3 H MCV 85.5 MCH 29.1 MCHC 34.0 RDW Std Deviation 39.6 RDW Coeff of Yonathan 12.6 Plt Count 350 MPV 9.9 Immature Gran % (Auto) 0.300 Neut % (Auto) 68.2 Lymph % (Auto) 21.2 [place] % (Auto) 6.8 Eos % (Auto) 3.2 Baso % (Auto) 0.3 Absolute Neuts (auto) 4.9 Absolute Lymphs (auto) 1.51 Nucleated RBC % 0 Sodium 136 Potassium 4.1 Chloride 106 Carbon Dioxide 23.0 Anion Gap 7 BUN 9 Creatinine 1.07 H Estim Creat Clear Calc 50.70 Est GFR (MDRD) Af Amer 68 Est GFR (MDRD) Non-Af 56 L BUN/Creatinine Ratio 8.4 L Glucose 84 Calcium 9.8 Total Bilirubin 0.40 AST 18 ALT 24 Alkaline Phosphatase 126 H Troponin I < 0.015 Total Protein 8.0 Albumin 4.4 Globulin 3.6 Albumin/Globulin Ratio 1.2 Urine Color Yellow Urine Clarity Clear Urine pH 6.5 Ur Specific [place] 1.010 Urine Protein Negative Urine Glucose (UA) Normal Urine Ketones 50 H Urine Occult Blood Negative Urine Nitrite Negative Urine Bilirubin Negative Urine Urobilinogen Normal Ur Leukocyte Esterase Negative Urine RBC 0 SEEN Urine WBC 0-5 SEEN Ur Squamous Epith Cells 0-5 SEEN Urine Bacteria RARE Hyaline Casts 0-5 SEEN Urine Mucus 0 SEEN - Rhythm Strip Rhythm Strip: Sinus Rhythm Rate: 81 Ectopy: None - EKG Initial EKG Interpretation: Sinus Rhythm - Sinus rhythm at 81 bpm. WA interval of 162 ms. QTC of [address] changes. No significant change from 07/06/2020. - Medical Decision Making Appears well nontoxic. Vital signs within normal limits. CT brain and chest x- ray negative. Lab work shows hemoconcentration and likely volume depletion. Patient was given 1 L of normal saline. Troponin negative. EKG nonischemic. Patient offered second troponin. Patient refusing second troponin and wishes to be discharged home. Patient also offered admission for rehab placement. Patient also refusing this and will be discharged home in stable condition to follow-up with her primary care physician. Impression: 1. Weakness 2. Atypical chest pain 3. Volume depletion ED Disposition - Plan for ED Patient: Disposition: Home or Assisted Living Instructions: ED Chest Pain [facility] Referrals: Scarlet Navarro MD [Primary Care Provider] -
[2020-07-14 16:42] VITALS: BP 171/84; BP 175/94; PULSE 72; PULSE 86; RESP 14; O2SAT 100
--- NOTE | 2020-07-14 16:44 | ED.RN ---
RN at the bedside with ARNOLD Moss to obtain standing orthostatic BP. Pt standing at the bedside with RN & MAIL DELIVERER each holding patient's arms for stability. Pt states she doesn't feel well, RN assisted patient back into bed in seated position with feet off the ground. Pt threw herself out of the bed onto the floor landing on her buttock. Pt did not hit head and is not complaining of any pain. RN, MAIL DELIVERER & Medic at bedside to help patient back into bed. Dr. Grissom notified at this time.
[2020-07-14 16:45] LABS: ALB/GLOB Ratio 1.2 RATIO (0.9-2.4); AST(SGOT) 18 U/L (15-37); Alanine Aminotransfer ALT/SGPT 24 U/L (13-56); Albumin, Serum 4.4 g/dL (3.2-5.0); Alkaline Phosphatase 126 U/L (45-117); Anion Gap 7 (5-15); BUN 9 mg/dL (7-18); BUN/Creat Ratio 8.4 RATIO (10-20); Calcium,Total 9.8 mg/dL (8.5-10.1); Chloride 106 mmol/L (98-107); Creatinine, Serum 1.07 mg/dL (0.55-1.02); EST Glomerular Filtration Rate 56 mL/min (>60); Est Glom Filt Rate - Afr Amer 68 mL/min (>60); Globulin 3.6 g/dL (2.2-4.2); Glucose 84 mg/dL (74-106); Potassium 4.1 mmol/L (3.5-5.1); Sodium Level 136 mmol/L (136-145)
[2020-07-14 16:54] LABS: Absolute Lymphocyte Count 1.51 X10^3/uL (0.83-4.51); Absolute Neutrophil Count 4.9 X10^3/uL (2.0-7.7); Basophil# 0.02 X10^3/uL; Basophil% 0.3 % (0-1); Eosinophil# 0.23 X10^3/uL; Eosinophils% 3.2 % (0-5); Hematocrit 47.3 % (37-47); Hemoglobin 16.1 g/dL (12.0-15.0); Lymphocyte # 1.51 X10^3/ul (4.0); Lymphocyte % 21.2 % (19-41); Mean Corpuscular Hgb 29.1 pg (27.0-32.0); Mean Corpuscular Volume 85.5 fL (81-99); Mean Platelet Vol. 9.9 fl (6.2-12.0); Monocyte# 0.48 X10^3/uL; Monocyte% 6.8 % (0-10); NRBC Flagged by Analyzer 0 % (0-5); Neutrophil # 4.85 X10^3/uL (2.7-7.7); Neutrophil % 68.2 % (47-70); Platelet Count 350 K/mm3 (150-450); RBC Distribution Width CV 12.6 % (11.6-14.6); RBC Distribution Width SD 39.6 fl (35.1-43.9); Red Blood Count 5.53 M/mm3 (4.2-5.4); White Blood Count 7.1 K/mm3 (4.4-11.0)
--- NOTE | 2020-07-14 17:00 | RAD_ITS ---
STUDY: X-RAY CHEST REASON FOR EXAM: Female, 55 years old. CHEST PAIN AND NAUSEA. TECHNIQUE: Single AP portable view of the chest. COMPARISON: 07/06/2020 FINDINGS: The lungs are clear and expanded. There is no demonstrated pleural abnormality. Normal size heart. Normal mediastinum and rosita. Normal visualized pulmonary arteries. Normal visualized aortic arch and descending thoracic aorta. Normal visualized thoracic spine. Normal visualized ribs, clavicles, and shoulders. There is no demonstrated abnormality of the visualized soft tissue structures of the upper abdomen. RAD/Chest 1 View (Portable) IMPRESSION: Normal x-ray examination of the chest. Electronically Signed: Ilan Naqvi MD at 17:32 EDT Tel , Service support ,
[2020-07-14 17:21] VITALS: BP 156/77; PULSE 72; RESP 10; O2SAT 98
[2020-07-14 17:23] LABS: Mucous, Urine 0 SEEN /hpf (<or=2+); Red Blood Cells-Urine 0 SEEN /hpf (0-5)
[2020-07-14 17:39] LABS: Color, Urine Yellow (Yellow); Glucose, Dipstick Normal (Normal); Ketone-Dipstick 50 mg/dl (Negative); Leukocyte Esterase-Dipstick Negative /ul (Negative); Nitrite-Dipstick Negative (Negative); Occult Blood-Urine Negative /ul (Negative); Protein-Dipstick Negative (Negative); Urine Bilirubin Dipstick Negative (Negative); Urine Clarity Clear (Clear); Urine Urobilinogen Normal (Normal); Urine pH 6.5 (5.0 - 8.0)
[2020-07-14 17:50] LABS: Squamous Epithelial Cells - UA 0-5 SEEN /hpf (5-10)
[2020-07-14 17:51] LABS: Hyaline Cast 0-5 SEEN /lpf (0-5)
[2020-07-14 17:52] LABS: Bacteria RARE /hpf (None Seen); White Blood Cells 0-5 SEEN /hpf (0-5)
[2020-07-14 18:23] VITALS: BP 149/72; PULSE 74; RESP 20; O2SAT 97
[2020-07-14 19:14] VITALS: BP 154/66; PULSE 75; RESP 16; O2SAT 99
== END 2020-07-14 19:32 | disposition home or self-care (01) ==
PROVIDERS: Emergency Provider Emergency Medicine; PCP Internal Medicine
DX: R07.89 Other chest pain (principal); E86.9 Volume depletion, unspecified; I95.1 Orthostatic hypotension; I10 Essential (primary) hypertension; Z79.82 Long term (current) use of aspirin; Z79.899 Other long term (current) drug therapy; F17.200 Nicotine dependence, unspecified, uncomplicated
CPT/HCPCS: 70450; 71045; 80053; 81001; 84484; 85025; 93005; 96360; 99285; J7030; A4216

== ENCOUNTER 2020-07-15 11:26 | Emergency (ER) | payer MEDICAID, SELFPAY ==
[2020-07-14 15:38] VITALS: BMI 35.0
[2020-07-15 11:27] VITALS: BP 177/99; PULSE 82; RESP 22; TEMP 36.6; O2SAT 99; BMI 31.1
--- NOTE | 2020-07-15 11:46 | CT_ITS ---
STUDY: CT ABDOMEN AND PELVIS WITHOUT CONTRAST REASON FOR EXAM: Female, 55 years old. RT SIDE ABD PAIN, INCREASED WEAKNESS, N/V, HX CERVICAL CA, CHOLECYSTECTOMY, BLADDER SUSPENSION RADIATION DOSAGE (If Supplied By Facility): CTDIvol = ( 13.46 ) mGy, DLP = ( 686.16 ) mGycm TECHNIQUE: Transaxial images were obtained from the dome of the diaphragm to the symphysis pubis without oral contrast, and without intravenous contrast. Sagittal and coronal images were reconstructed. Individualized dose optimization techniques were used for this CT. COMPARISON: 02/14/2018 FINDINGS: The visualized lung bases are unremarkable. The visualized portions of the heart are within normal limits. Normal liver. There are surgical clips in the gallbladder fossa consistent with a prior cholecystectomy. Normal spleen. Normal pancreas. Normal bilateral adrenal glands. Normal right kidney. Normal left kidney. Normal visualized stomach. Normal small intestine. Normal colon. The appendix is visualized and appears normal. Normal abdominal aorta. Normal inferior vena cava. Normal retroperitoneum. Normal urinary bladder. Normal abdominal wall. Normal osseous structures. CT/Abdomen/Pelvis without Cont IMPRESSION: Normal unenhanced CT of the abdomen and pelvis. Electronically Signed: Ilan Naqvi MD at 13:09 EDT Tel , Service support ,
--- NOTE | 2020-07-15 11:55 | ED.DCSUM_ITS ---
History of Present Illness Chief Complaint: Suicidal Narrative: Patient presents saying that she is vomiting, has been vomiting for weeks and months, it is severe, she cannot keep anything down, she has no appetite as a result, and is also not having bowel movements because she is not keeping anything down, and all of this is making her orthostatic hypotension worse. She was diagnosed with that several years ago, and states now she cannot stand up without completely losing consciousness and collapsing. She cannot tell me a timeframe of which this has become worse. She states she has severe right sided abdominal pain, has had many abdominal surgeries included a cholecystectomy, and several laparoscopies because of adhesions and scar tissue. She was seen here yesterday, she states that it was for similar symptoms, however she is quite hysterical and has flight of ideas, and is very tangential, and in reviewing the physician's note from yesterday, there is absolutely zero mention of any of these GI symptoms. She was offered admission last night but refused because of her dog at home. Apparently, she got her dog taken care of by the warden temporarily so that she could come here and seek treatment. She is very frustrated about her symptoms. As a matter fact, she was talking to her mattress spring encaser today and apparently said that she was wanting to because she was feeling so bad, which according to the patient was simply an expression that she was feeling awful and wants to find out why this keeps happening, with regards to her physical symptoms, and she is not actually suicidal although it was taken that way at the time potentially. In talking more with the patient about her GI symptoms that were not recorded yesterday, she states that she was vomiting uncontrollably this morning, but for the past month or more she has not been able to keep any food down. She only would vomit when she tries to eat, and so she basically is not eating. She can keep some water down prior to this morning but not anything this morning. 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 (5) Depression Status: Chronic (6) HLD (hyperlipidemia) Status: Chronic (7) HTN (hypertension) Status: Chronic (8) Hypothyroidism Status: Chronic (9) PAF (paroxysmal atrial fibrillation) Status: Chronic (10) Schizophrenia Status: Chronic (11) Orthostatic hypotension Status: Chronic Past Medical History - Allergies and Home Meds Allergies/Adverse Reactions: Allergies adhesive tape Allergy (Verified 07/15/20 11:32) Rash atropine sulfate [From ] Allergy (Verified 07/15/20 11:32) Hives codeine phosphate [From Tylenol-Codeine #3] Allergy (Verified 07/15/20 11:32) breathing problems divalproex sodium [From Depakote] Allergy (Verified 07/15/20 11:32) Unknown hydromorphone HCl [From Dilaudid] Allergy (Verified 07/15/20 11:32) facial blisters,itching hyoscyamine sulfate [From ] Allergy (Verified 07/15/20 11:32) Hives Iodinated Contrast Media [Iodinated Contrast Media - IV Dye] Allergy (Verified 07/15/20 11:32) breathing problems and my bp went up latex Allergy (Verified 07/15/20 11:32) Rash pantoprazole sodium [From Protonix] Allergy (Verified 07/15/20 11:32) Rash phenobarbital [From ] Allergy (Verified 07/15/20 11:32) Hives promethazine HCl [From Phenergan] Allergy (Verified 07/15/20 11:32) Anaphylaxis ramipril Allergy (Verified 07/15/20 11:32) Unknown scopolamine hydrobromide [From ] Allergy (Verified 07/15/20 11:32) Hives ziprasidone mesylate [From Geodon] Allergy (Verified 07/15/20 11:32) Unknown Sulfa (Sulfonamide Antibiotics) Adverse Reaction (Verified 07/15/20 11:32) Vomiting ziprasidone HCl [From Geodon] Adverse Reaction (Verified 07/15/20 11:32) tremors VIDODIN TUSS Allergy (Uncoded 07/15/20 11:32) Itching Primary Care Physician: Scarlet Navarro MD [Primary Care Provider] - Surgical History: - - Cholecystectomy, R carpal tunnel surgery, L foot surgery, Uterine suspension and bladder sling. Lives: Alone Smoking Status: Current some day smoker - Family History Paternal Family History: Family History (Last Reviewed 04/07/20 @ 13:12 by Judd Mcgovern) Sister Myocardial infarction Colon cancer Mother Hypertension Arthritis Brain aneurysm Sister Colon cancer Family History: Reports: No pertinent history Sibling Family History: Family History (Last Reviewed 04/07/20 @ 13:12 by Judd Mcgovern) Sister Myocardial infarction Colon cancer Mother Hypertension Arthritis Brain aneurysm Sister Colon cancer Family History: Reports: Heart Disease Maternal Family History: Family History (Last Reviewed 04/07/20 @ 13:12 by Judd Mcgovern) Sister Myocardial infarction Colon cancer Mother Hypertension Arthritis Brain aneurysm Sister Colon cancer Family History: Reports: Hypertension Review of Systems General: Reports: Malaise. Denies: Chills, Fever, Sweats Eyes: Denies: Visual changes - bilaterally, Diplopia ENT: Denies: Rhinorrhea, Sore throat Cardiovascular: Reports: Chest pain. Denies: Palpitations Respiratory: Denies: Dyspnea, Cough, Dyspnea on exertion Gastrointestinal: Reports: Abdominal pain, Nausea, Vomiting. Denies: Diarrhea Genitourinary: Denies: Dysuria, Hematuria, Frequency Musculoskeletal: Denies: Myalgias, Swelling, Extremity Pain Skin: Denies: Rash, Wounds Neurological: Denies: Headache, Weakness, Numbness Psych: Reports: Anxiety. Denies: Suicidal thoughts Physical Exam Vital Signs/Narrative: Vital Signs Temp Pulse Resp BP Pulse Ox 07/15/20 11:27 97.9 F 82 22 H 177/99 H 99 Inital Vital Signs reviewed: Yes General: Well nourished, Well developed, No Acute Distress Head: Normocephalic, Atraumatic Eyes: Perrl, EOMI ENT: Moist mucous membranes, No rhinorrhea Neck: Supple, Nontender Cardiovascular: Regular rate, Regular rhythm, No murmurs Respiratory: No distress, CTA bilaterally, Chest nontender Abdomen: Soft, Nondistended, Normal bowel sounds, No masses, Tender - throughout right abd, Guarding - vol RUQ. Negative for: Rebound tenderness Back: Nontender, Normal Inspection. Negative for: CVA tenderness Extremities: Nontender, No edema. Negative for: Calf Tenderness Skin: Normal color, No rash, No Trauma Neurological: Alert, Oriented x3, Cranial nerves II-XII grossly intact, Normal Strength, Normal Sensation Psychological: - - Anxious and at times tearful. Labile emotions. Tangential. Diagnostic/Tx/Re-eval Impressions Abdomen/Pelvis CT 07/15/20 11:46 IMPRESSION: Normal unenhanced CT of the abdomen and pelvis. Electronically Signed: Ilan Naqvi MD at 13:09 EDT Tel , Service support , 07/15/20 11:46 CT Abd [Abdomen/Pelvis without Cont] [CT] Stat Laboratory Results 07/15/20 07/15/20 12:00 12:00 WBC 6.6 RBC 5.02 Hgb 15.1 H Hct 42.4 MCV 84.5 MCH 30.1 MCHC 35.6 RDW Std Deviation 38.7 RDW Coeff of Yonathan 12.8 Plt Count 320 MPV 9.7 Immature Gran % (Auto) 0.200 Neut % (Auto) 70.5 H Lymph % (Auto) 18.8 L [place] % (Auto) 7.6 Eos % (Auto) 2.6 Baso % (Auto) 0.3 Absolute Neuts (auto) 4.6 Absolute Lymphs (auto) 1.23 Nucleated RBC % 0 Sodium 139 Potassium 4.4 Chloride 109 H Carbon Dioxide 21.0 Anion Gap 9 BUN 9 Creatinine 1.03 H Estim Creat Clear Calc 61.52 Est GFR (MDRD) Af Amer 71 Est GFR (MDRD) Non-Af 59 L BUN/Creatinine Ratio 8.7 L Glucose 95 Calcium 9.5 Total Bilirubin 0.50 AST 21 ALT 25 Alkaline Phosphatase 113 Troponin I < 0.015 Total Protein 7.4 Albumin 4.0 Globulin 3.4 Albumin/Globulin Ratio 1.2 Lipase 55 L - Medical Decision Making Patient initially was given IV fluids and morphine, she did not have any improvement in her right-sided abdominal pain. After seeing her work-up returned negative with a BUN in the single digits, negative CT abdomen/pelvis, and normal creatinine, she was offered a GI cocktail and dicyclomine. These medications resolved her abdominal discomfort, she felt much better, and was able to rest some. In further discussion, the patient said she was having trouble swallowing and indicates that possibly things are getting hung up in her esophagus when she swallows solid foods of any type; I asked if the patient has had endoscopy. She states she gets those all the time and recently had an x-ray swallow study of some sort here at the hospital. In reviewing the last time she had these test, the modified barium swallow and videofluoroscopy swallow were done in 2018, 2 years ago or more, and her last endoscopy was in 2016, almost 5 years ago. When asked how long the current symptoms have been going on, she states I do not know, a long time. We gave her some water and crackers and she was able to swallow those without any difficulty after the medications helped her feel better. At this time I see no medical reason to admit her to the hospital. She saw Dr. Cramer and Timoteo at [facility] for issues in the past, possibly dysphagia related to a prior stroke but this again is according to the patient. I advised to follow-up with them and continue drinking fluids, preferably containing electrolytes and possibly some carbohydrates, until then. She is okay with that and prescribed Zofran and dicyclomine to use as needed. ED Disposition - Plan for ED Patient: Disposition: Home or Assisted Living Diagnosis: Right-sided abdominal pain of unknown cause, Vomiting, Anxiety, Dysphagia Instructions: ED Diet Soft, ED Dysphagia Adult Prescriptions: Dicyclomine HCl [Bentyl] 20 mg PO Q6H PRN #20 cap PRN Reason: Abdominal pain Transmission Status: Pending to [facility] Ondansetron [Zofran Odt] 8 mg PO Q8H PRN PRN #20 tab PRN Reason: Nausea Transmission Status: Pending to [facility] Referrals: Kevin Mahmood MD [CONSULTING PHYSICIAN] - (to possibly set up another upper GI endoscopy) Scarlet Navarro MD [Primary Care Provider] - (to reevaluate and help set up GI consult if needed)
[2020-07-15] MEDS: 0.9% Normal Saline 1,000 ML 1000 ML IV (12:09)
[2020-07-15] MEDS: Ondansetron 4 MG/2 ML Vial IV (12:11)
[2020-07-15] MEDS: Morphine 4 MG/ML Syringe IV (12:11)
[2020-07-15 12:17] LABS: Absolute Lymphocyte Count 1.23 X10^3/uL (0.83-4.51); Absolute Neutrophil Count 4.6 X10^3/uL (2.0-7.7); Basophil# 0.02 X10^3/uL; Basophil% 0.3 % (0-1); Eosinophil# 0.17 X10^3/uL; Eosinophils% 2.6 % (0-5); Hematocrit 42.4 % (37-47); Hemoglobin 15.1 g/dL (12.0-15.0); Lymphocyte # 1.23 X10^3/ul (4.0); Lymphocyte % 18.8 % (19-41); Mean Corp Hgb Conc 35.6 g/dL (32-36); Mean Corpuscular Hgb 30.1 pg (27.0-32.0); Mean Corpuscular Volume 84.5 fL (81-99); Mean Platelet Vol. 9.7 fl (6.2-12.0); Monocyte% 7.6 % (0-10); NRBC Flagged by Analyzer 0 % (0-5); Neutrophil # 4.63 X10^3/uL (2.7-7.7); Neutrophil % 70.5 % (47-70); Platelet Count 320 K/mm3 (150-450); RBC Distribution Width CV 12.8 % (11.6-14.6); RBC Distribution Width SD 38.7 fl (35.1-43.9); Red Blood Count 5.02 M/mm3 (4.2-5.4); White Blood Count 6.6 K/mm3 (4.4-11.0)
[2020-07-15 12:40] LABS: ALB/GLOB Ratio 1.2 RATIO (0.9-2.4); AST(SGOT) 21 U/L (15-37); Alanine Aminotransfer ALT/SGPT 25 U/L (13-56); Alkaline Phosphatase 113 U/L (45-117); Anion Gap 9 (5-15); BUN 9 mg/dL (7-18); BUN/Creat Ratio 8.7 RATIO (10-20); Calcium,Total 9.5 mg/dL (8.5-10.1); Chloride 109 mmol/L (98-107); Creatinine, Serum 1.03 mg/dL (0.55-1.02); EST Glomerular Filtration Rate 59 mL/min (>60); Est Glom Filt Rate - Afr Amer 71 mL/min (>60); Estimated Creatinine Clearance 61.52 ml/min; Globulin 3.4 g/dL (2.2-4.2); Glucose 95 mg/dL (74-106); Lipase 55 U/L (73-393); Potassium 4.4 mmol/L (3.5-5.1); Protein, Total 7.4 g/dL (6.4-8.2); Sodium Level 139 mmol/L (136-145)
[2020-07-15 12:47] VITALS: RESP 16
[2020-07-15] MEDS: Mag Hydrox/Al Hydrox/Simeth 30 ML UDC PO (15:08)
[2020-07-15] MEDS: Dicyclomine 10 MG Capsule 20 MG PO (15:08)
--- NOTE | 2020-07-15 15:38 | CM.ED ---
Social Work Telephone call from Mary Pak. Mary reports that patient called crisis today with vague suicidal comments. Mary reports to have met patient at [facility] with local PD. Mary reports that patient had Chele merino with patient and angelique garcia was called to provide a safe spot for Chele as patient was concerned with what would happen to Chele if patient came to the hospital. Patient willingly coming to the hospital and is not currently pink slip. Mary states that patient suicidal comments were not clear. Mary reports that per patient daughter, Scott patient has a mental health history and history of suicide attempts. Mary is not pink slipping patient currently. This director of social work meeting with patient. Patient remembering this director of social work from prior interactions. Patient reports to be tired and I need help. Patient states to be unable to care for myself. This director of social work inquiring if patient is having any suicidal thoughts. Patient denies suicidal thoughts/plans/intents and states I am here getting help, I want to live. Patient states I just don't know what to do. This director of social work inquiring about patient community supports. Patient reports to have active counseling services through [employer] [employer] and to see Britt as counselor and Manoj as family preservation caseworker. Patient reports to be homeless and to have no where to go. This director of social work exploring options of the [facility] with patient, patient declines this support as there are too many people there. Patient appears to be overwhelmed and at times is difficult to follow thought process. Patient denies visual or auditory hallucinations at first and then states well maybe I am hearing something. Patient A&Ox3. Patient able to follow directions and presenting with appropriate thought process. This director of social work inquiring if patient is okay with this director of social work calling patient family preservation caseworker with [facility] to explore options for community supports, patient declining. Patient aware that patient does not meet medical criteria for admission to the hospital. Patient requesting for penitentiary options to be explored. This director of social work educating patient that with patient insurance a pre-cert will need to be obtained and at this time in the day a precert is not able to be obtained. Patient voicing frustration and wanting to call patient family preservation caseworkerBrianna with [facility]. This director of social work encouraging patient to call Brianna. Patient calling Brianna while this director of social work in room. Brianna states plan to be able to explore options of obtaining pre-cert on this day. Brianna to call this director of social work back. Brianna provided with this social workers contact information. Per Dr. Sepulveda patient is cleared for discharge to the community. Will continue to follow. Tere GARCIA, CORA
--- NOTE | 2020-07-15 16:05 | CM.ED ---
Social Work Telephone call from Brianna Maldonado (case hardener) - [phone]. Brianna reports to have spoken with utilization management and an intermediate level of care can be established if patient meets criteria of needing assistance with ADL's. This social media coordinator voicing concern of patient meeting criteria as per nursing staff patient walked to bathroom without assistance. Patient was also able to dress self on own and did not need assist in the bathroom. Brianna voicing understanding and agreeing that patient does not meet criteria for intermediate level of care. This social media coordinator met with patient in room to update on above. Patient voices continued frustration. Patient is now agreeable to this social media coordinator speaking with patient case hardener through [facility] ([phone]). Telephone call to Bianca. Bianca reports to have been working with patient over the past year on establishing housing. Bianca reports that patient has difficulty with following up with recommendations and plan. Bianca states to have spoken with patient multiple times about the [employer] and patient continues to decline this support/resource. Bianca plans to call patient and speak further with patient about plan. This social media coordinator met with patient in room again to update on conversation with Bianca. Patient voices understanding and reports plan to discharge to the community and stay the night in a hotel. Patient reports to be able to afford the hotel and is able to walk to the hotel. Patient requesting to leave and is aware that patient is cleared for discharge. This social media coordinator attempting to provide patient with further community resources, patient declining. Nursing staff updated on patient request. Tere GARCIA, CORA
[2020-07-15 17:39] VITALS: RESP 18
== END 2020-07-15 17:43 | disposition home or self-care (01) ==
PROVIDERS: Emergency Provider Emergency Medicine; PCP Internal Medicine
DX: R10.9 Unspecified abdominal pain (principal); R11.10 Vomiting, unspecified; F41.9 Anxiety disorder, unspecified; R13.10 Dysphagia, unspecified; I12.9 Hypertensive chronic kidney disease with stage 1 through stage 4 chronic kidney disease, or unspecified chronic kidney disease; N18.30 Chronic kidney disease, stage 3 unspecified; J44.9 Chronic obstructive pulmonary disease, unspecified; F32.9 Major depressive disorder, single episode, unspecified; E78.5 Hyperlipidemia, unspecified; E03.9 Hypothyroidism, unspecified; I48.0 Paroxysmal atrial fibrillation; F44.4 Conversion disorder with motor symptom or deficit; F20.9 Schizophrenia, unspecified; I95.1 Orthostatic hypotension; Z90.49 Acquired absence of other specified parts of digestive tract; Z79.82 Long term (current) use of aspirin; Z79.899 Other long term (current) drug therapy; F17.200 Nicotine dependence, unspecified, uncomplicated
CPT/HCPCS: 74176; 80053; 83690; 84484; 85025; 99285; J7030; A4216; J2405

== ENCOUNTER 2020-07-16 12:57 | Inpatient (IN) | payer MEDICAID, SELFPAY ==
[2020-07-15 11:27] VITALS: BMI 31.1
[2020-07-16 12:58] VITALS: BP 149/116; PULSE 73; RESP 16; TEMP 36.2; O2SAT 100; BMI 26.6
[2020-07-16 13:43] VITALS: BP 160/72
--- NOTE | 2020-07-16 13:51 | CM.ED ---
Social Work Consult: Mental Health Informant: Riddhi Sinclair Mode of Arrival: [place] slipped by police investigator. Chief Complaint: I can't take care of myself. I need help. Marital/Social History: . Has daughter, Scott that lives in [place]. Living Situation: Homeless. Has been staying in various hotels. Supports/Resources: Active with counseling services through [facility]. Counselor, Britt. Speech Clinician, Bianca ([phone]). Has Speech Clinician through [place] insurance: Brianna [phone]. Education/Employment: Disability. States I have been having a hard time remembering. Mental Health Treatment/history: Schizophrenia, Depression. Patient reports to be on medications to assist with managing mental health but I can't keep them straight. Patient with history of inpatient psychiatric placement with last placement being in December 2019. Abuse Issues: Patient reports Bill is after me. Patient unable to identify who Bill is. Patient appears distressed when speaking about Bill. Substance Abuse/Use: Reports some THC use. Denies any other substance abuse/use. Risk to Self/Others: Patient denies active suicidal thoughts/plans/intents. When this social economist completing suicide assessment patient insisting that I am not suicidal. Patient states I don't want people to think I am suicidal. Patient admits to history of suicide attempts by overdosing on medications. Patient states to be unable to care for myself. Patient denies homicidal thoughts/plans/intents. Mental Status Exam: A&Ox3 Appearance/General Behavior: Unkept. Disheveled. Paranoid. Mood/Affect: Elevated. Anxious. Bizarre. Communication Pattern: Responds to questions. Has difficulty staying on topic. Perseverating on things such as wanting a plastic bottle of pop versus a metal can as I can't drink from a metal can then states I can't open a plastic bottle. Patient often stated during assessment I can't think. Thought Process: Reports feeling scared. Paranoid. Denies V/A hallucinations. Judgement: Poor Assessment: Met with patient in room. Introduced self and social economist role. Patient agreeable to speaking with this social economist. Patient remembering this social economist from prior interactions this week. This is patient third visit to the emergency room in a three day period. Patient was in the emergency room yesterday due to not being able to care for self but patient did dress self on own and walked to the bathroom and completed toileting on own. Patient continues to state that patient is unable to care for self today. When patient left the emergency room yesterday patient informed this social economist that patient was going to walk to a hotel. Patient confirms to have walked to a hotel yesterday but to have gotten there and to have been unable to shower or eat food. Patient reports to have not been sleeping and to have not eating for days as I can't eat. Patient does appear to be tired and has difficulty concentrating/focusing. Patient has been medically cleared on both prior emergency room visits this week. Medical team anticipating that patient will be medically cleared this visit as well. Patient appears to be having difficulty caring for self as a result of current decompensating of mental health conditions. This social economist recommending for patient to admit to an inpatient psychiatric facility for stabilization. Patient states I need something. Patient again brings up that patient is not suicidal. This social economist attempting to explain decision making for referring patient to an inpatient psychiatric facility. Patient verbally agreeing that patient is not able to care for self. Patient continues to believe that patient is not able to care for self due to physical limitations while patient continues to be able to walk around the emergency room and change into a gown independently. Active support and listening provided. Collaborating with Lorin Sinclair/Dr. Early. Recommending inpatient psychiatric placement. PLAN: Facilitate transfer. Tere GARCIA, CORA
[2020-07-16 14:28] LABS: Anion Gap 4 (5-15); BUN 10 mg/dL (7-18); Calcium,Total 9.5 mg/dL (8.5-10.1); Chloride 112 mmol/L (98-107); Creatinine, Serum 1.11 mg/dL (0.55-1.02); EST Glomerular Filtration Rate 54 mL/min (>60); Est Glom Filt Rate - Afr Amer 65 mL/min (>60); Estimated Creatinine Clearance 50.92 ml/min; Glucose 91 mg/dL (74-106); Sodium Level 141 mmol/L (136-145)
--- NOTE | 2020-07-16 15:15 | ED.DCSUM_ITS ---
History of Present Illness Chief Complaint: Mental Health Informant: Patient Onset: Today Context: Gradual Onset Conflict: Family, Work, Financial Timing: Continuous Current Severity: Severe Maximum Severity: Severe Worsened by: Situational factors Relieved by: nothing Associated Symptoms: Easily distracted, Flight of Ideas, Increased activity, Pressured Speech. Negative for: Depressed, Change in Eating, Change in sleeping, Decreased Interest, Guilt, Decreased Concentration, Hopelessness, Mayes icidal Thoughts, Agitated, Angry, Hostile, Threatening, Confusion, Paranoia, Visual Hallucinations, Auditory Hallucinations Specific plan (suicidal thought): none Narrative: 55-year-old female history of psychiatric illness presents to the emergency department under pink slip by police secondary to suicidal ideation. The police were called by the patient's counselor. The patient had a phone visit with her counselor and told her she did not want to live anymore which is what prompted the police to bring her to the emergency department. Under pink slip. On arrival the patient states she is not suicidal however she is having a flight of ideas she has pressured speech she is not having linear thinking and therefore history from her is somewhat limited. She has no other complaints at this time. Prior similar symptoms: Yes Recent Illness/Hospitalization: No Past Medical History - Allergies and Home Meds Allergies/Adverse Reactions: Allergies adhesive tape Allergy (Verified 07/16/20 12:58) Rash atropine sulfate [From ] Allergy (Verified 07/16/20 12:58) Hives codeine phosphate [From Tylenol-Codeine #3] Allergy (Verified 07/16/20 12:58) breathing problems divalproex sodium [From Depakote] Allergy (Verified 07/16/20 12:58) Unknown hydromorphone HCl [From Dilaudid] Allergy (Verified 07/16/20 12:58) facial blisters,itching hyoscyamine sulfate [From ] Allergy (Verified 07/16/20 12:58) Hives Iodinated Contrast Media [Iodinated Contrast Media - IV Dye] Allergy (Verified 07/16/20 12:58) breathing problems and my bp went up latex Allergy (Verified 07/16/20 12:58) Rash pantoprazole sodium [From Protonix] Allergy (Verified 07/16/20 12:58) Rash phenobarbital [From ] Allergy (Verified 07/16/20 12:58) Hives promethazine HCl [From Phenergan] Allergy (Verified 07/16/20 12:58) Anaphylaxis ramipril Allergy (Verified 07/16/20 12:58) Unknown scopolamine hydrobromide [From ] Allergy (Verified 07/16/20 12:58) Hives ziprasidone mesylate [From Geodon] Allergy (Verified 07/16/20 12:58) Unknown Sulfa (Sulfonamide Antibiotics) Adverse Reaction (Verified 07/16/20 12:58) Vomiting ziprasidone HCl [From Geodon] Adverse Reaction (Verified 07/16/20 12:58) tremors VIDODIN TUSS Allergy (Uncoded 07/16/20 12:58) Itching Primary Care Physician: Scarlet Navarro MD [Primary Care Provider] - Prior records reviewed: Yes Past Medical History: - - Psychiatric disorder Surgical History: - - Cholecystectomy, R carpal tunnel surgery, L foot surgery, Uterine suspension and bladder sling. Lives: Homeless Smoking Status: Current every day smoker Alcohol: None Drugs: Marijuana - Family History Paternal Family History: Family History (Last Reviewed 04/07/20 @ 13:12 by Judd Mcgovern) Sister Myocardial infarction Colon cancer Mother Hypertension Arthritis Brain aneurysm Sister Colon cancer Family History: Reports: No pertinent history Sibling Family History: Family History (Last Reviewed 04/07/20 @ 13:12 by Judd Mcgovern) Sister Myocardial infarction Colon cancer Mother Hypertension Arthritis Brain aneurysm Sister Colon cancer Family History: Reports: Heart Disease Maternal Family History: Family History (Last Reviewed 04/07/20 @ 13:12 by Judd Mcgovern) Sister Myocardial infarction Colon cancer Mother Hypertension Arthritis Brain aneurysm Sister Colon cancer Family History: Reports: Hypertension Review of Systems General: Denies: Chills, Fever, Sweats Eyes: Denies: Visual changes - bilaterally, Diplopia ENT: Denies: Rhinorrhea, Sore throat Cardiovascular: Denies: Chest pain, Palpitations Respiratory: Denies: Dyspnea, Cough, Dyspnea on exertion Gastrointestinal: Denies: Abdominal pain, Nausea, Vomiting, Diarrhea, Melena, Hematochezia Genitourinary: Denies: Dysuria, Hematuria, Frequency Musculoskeletal: Denies: Back pain, Extremity Pain Skin: Denies: Rash, Wounds Neurological: Denies: Headache, Weakness, Numbness Psych: Reports: Anxiety. Denies: Depression, Suicidal thoughts, Suicidal ideations Physical Exam Vital Signs/Narrative: Vital Signs Temp Pulse Resp BP Pulse Ox 07/16/20 13:43 160/72 H 07/16/20 12:58 97.2 F L 73 16 149/116 H 100 Inital Vital Signs reviewed: Yes General: Well nourished, Well developed Head: Normocephalic, Atraumatic Eyes: Perrl, EOMI ENT: Moist mucous membranes, No rhinorrhea Neck: Supple, Nontender Cardiovascular: Regular rate, Regular rhythm, No murmurs Respiratory: No distress, CTA bilaterally, Chest nontender Abdomen: Soft, Nontender, Nondistended, Normal bowel sounds Back: Nontender, Normal Inspection Extremities: Nontender, No Edema Skin: Normal color, No rash Neurological: Alert, Oriented x3, Cranial nerves II-XII grossly intact, Normal Strength, Normal Sensation Psych: No suicidal or homicidal ideation, Pressured Speech, Flight of Ideas, Incoherent thoughts, Poor Insight, Poor Judgement. Negative for: Suicidal thoughts Diagnostic/Tx/Re-eval Restraints applied: No Patient presents with flight of ideas and pressured speech and under pink slip by police. Patient has been here 3 days in a row she has progressively gotten worse and has not been taking her psychiatric medications. Discussed with social work and patient and we mutually agree that she will require admission to a psychiatric facility for stabilization. Medical screening work-up was pursued. She was speaking with crisis for disposition ED Disposition - Plan for ED Patient: Disposition: Psychiatric Hospital or Unit Diagnosis: Psychosis, Schizophrenia Referrals: Scarlet Navarro MD [Primary Care Provider] -
[2020-07-16 15:18] LABS: Hematocrit 42.2 % (37-47); Hemoglobin 14.5 g/dL (12.0-15.0); Mean Corp Hgb Conc 34.4 g/dL (32-36); Mean Corpuscular Hgb 29.6 pg (27.0-32.0); Mean Corpuscular Volume 86.1 fL (81-99); Mean Platelet Vol. 9.8 fl (6.2-12.0); NRBC Flagged by Analyzer 0 % (0-5); Platelet Count 297 K/mm3 (150-450); RBC Distribution Width SD 40.5 fl (35.1-43.9); White Blood Count 6.1 K/mm3 (4.4-11.0)
[2020-07-16 15:23] LABS: Alcohol, Blood (Medical)-Serum < 3.0 mg/dL
[2020-07-16 15:29] LABS: Neutrophil % 62.9 % (47-70)
[2020-07-16 15:30] LABS: Absolute Lymphocyte Count 1.46 X10^3/uL (0.83-4.51); Absolute Neutrophil Count 3.8 X10^3/uL (2.0-7.7); Basophil# 0.02 X10^3/uL; Basophil% 0.3 % (0-1); Eosinophil# 0.24 X10^3/uL; Lymphocyte # 1.46 X10^3/ul (4.0); Lymphocyte % 24.3 % (19-41); Monocyte# 0.49 X10^3/uL; Monocyte% 8.2 % (0-10); Neutrophil # 3.77 X10^3/uL (2.7-7.7)
[2020-07-16] MEDS: LORazepam 1 MG Tablet PO (16:45)
[2020-07-16] MEDS: DiphenhydrAMINE 25 MG Capsule 50 MG PO (19:07)
[2020-07-16 19:16] VITALS: RESP 16
[2020-07-16 19:37] LABS: Amphetamine Urine VISTA POSITIVE (<1000 ng/mL); Barbiturate Urine VISTA NEGATIVE (< 200 ng/mL); Benzodiazepine Urine VISTA NEGATIVE (< 200 ng/mL); Cocaine Urine VISTA NEGATIVE (< 300 ng/mL); Ecstacy Urine VISTA NEGATIVE (< 500 ng/mL); Methadone Urine VISTA NEGATIVE (< 300 ng/mL); PCP Urine VISTA NEGATIVE (< 25 ng/mL); THC Urine VISTA POSITIVE (< 50 ng/mL); Vista UDS pH Range 5
--- NOTE | 2020-07-16 20:28 | CM.ED ---
Social Work Telephone call to Cristal Zhang. Clinical information faxed. Pending review. Tere Guerin SONOGRAPHY TECHNOLOGIST, CORA
--- NOTE | 2020-07-16 20:54 | EKG12_ITS ---
Test Reason : MENTAL HEALTH Blood Pressure : / mmHG Vent. Rate : 062 BPM Atrial Rate : 062 BPM P-R Int : 158 ms QRS Dur : 082 ms QT Int : 444 ms P-R-T Axes : 049 -18 009 degrees QTc Int : 450 ms Normal sinus rhythm Minimal voltage criteria for LVH, may be normal variant Borderline ECG Confirmed by JOSEF SPEARS, BRENDA ([id number]), editorial cartoonist ANAND HSIEH ([id number]) on 07/21/2020 9:52:20 AM Referred By: SALVADOR Confirmed By:BRENDA BAHENA MD
[2020-07-16 21:06] VITALS: RESP 16
--- NOTE | 2020-07-16 21:11 | CM.ED ---
Social Work Telephone call from Cristal Zhang. Requesting a CK, EKG and COVID-19 (pending status is fine for COVID). Updated medical team, additional information ordered. Tere GARCIA, CORA
[2020-07-16 21:33] LABS: CPK Total, Creatine Kinase 101 U/L (26-192)
--- NOTE | 2020-07-16 21:46 | CM.ED ---
Social Work Updated clinical information faxed to [facility]. Tere Guerin MSW, HUMBERTO-S
--- NOTE | 2020-07-16 23:12 | CM.ED ---
Social Work Telephone call from Cristal Zhang. Patient has been accepted by Dr. Aguilar. Patient to admit to room 303A. Nurse to call report to [phone]. Updated patient and medical team. Tere Guerin MSW, CORA
[2020-07-16 23:27] VITALS: RESP 16
--- NOTE | 2020-07-16 23:51 | ED.RN ---
pt unable to verify medications.
[2020-07-16 23:54] VITALS: BP 172/74; PULSE 58; RESP 14; TEMP 36.2; O2SAT 98
[2020-07-17] VITALS (48 sets, daily range): BP systolic 120–199; BP diastolic 58–103; PULSE 52–79; RESP 10–55; TEMP 36.2–37.5; O2SAT 92–100; BMI 34.0; BMI 33.2
--- NOTE | 2020-07-17 02:35 | ED.RN ---
THIS RN INTO ROOM TO GIVE PATIENT MEDICATION AND LET PATIENT KNOW [facility] IS HERE TO GET HER. PATIENT APPEARED TO BE IN NO DISTRESS. AFTER VERBALLY TELLING PATIENT TO SIT UP TO TAKE MEDICATION, PATIENT STARED AT THIS RN WITHOUT SITTING UP. AFTER SECOND REQUEST FOR PATIENT TO SIT UP WITHOUT COMPLIANCE, PATIENT POINTED TO HER NECK. AT THIS TIME THIS RN NOTED SOMETHING AROUND PATIENTS NECK. PATIENT HAD MAKESHIFT LIGATURE AROUND NECK, OF TUBULAR RETAINER NET, ORIGINALLY PLACED ON PATIENTS ARMS TO HELP PREVENT SCRATCHING. MOTORCYCLE DELIVERER CALLED INTO ROOM, LIGATURE REMOVED. PATIENT UNABLE TO TALK ABOVE A WHISPER. VITALS STABLE. DR. MCCRAY NOTIFIED AND TO BEDSIDE TO ASSESS PATIENT. PATIENTS SKIN WAS REDDENED BUT NO OPEN AREAS NOTED FROM LIGATURE. NEW ORDERS OBTAINED AND FOLLOWED.
--- NOTE | 2020-07-17 02:44 | CT_ITS ---
STUDY: CT SOFT TISSUE NECK WITHOUT CONTRAST REASON FOR EXAM: Female, 55 years old. NECK TRAUMA RADIATION DOSAGE (If Supplied By Facility): CTDIvol = ( 17.49 ) mGy, DLP = ( 1064.59 ) mGycm TECHNIQUE: The patient was scanned in a multi-detector CT scanner. High resolution transaxial imaging was performed without the administration of intravenous contrast material. Sagittal and coronal images were reconstructed. Individualized dose optimization techniques were used for this CT. COMPARISON: CTA neck 09/06/2019 FINDINGS: Normal bilateral parotid glands. Normal bilateral master of ceremonies spaces. Normal bilateral parapharyngeal spaces. Normal bilateral carotid spaces. Normal bilateral sublingual and submandibular glands and spaces. Normal visualized nasopharynx. Normal retropharyngeal space. Normal perivertebral space. Normal visualized bilateral faucial tonsils. The visualized tongue, tongue base and oropharynx are normal. The visualized cervical lymph nodes (levels I-) are within normal size limits, and maintain normal morphology. There is no demonstrated solid or cystic mass lesion. Normal epiglottis, bilateral vallecula and hypopharynx. The pre-epiglottic and paraglottic adipose spaces are normal. Normal visualized bilateral piriform sinuses, aryepiglottic folds, vocal cords, and arytenoid-cricoid articulations. Normal subglottic trachea. Normal bilateral lobes of the thyroid gland. Normal visualized pulmonary apices. There is no demonstrated pneumothorax. There is mild fat stranding along the sternocleidomastoid muscle bilaterally. Probable stable retention cyst in the right maxillary antrum. The bilateral mastoid air cells and ossicles are unopacified. The mandible, bilateral zygomatic arches and bilateral temporomandibular joints are intact. There is multilevel degenerative changes of the cervical spine.Stable nonunion posterior C1 ring. CT/Soft Tissue Neck without Contr IMPRESSION: No acute osseous or soft tissue injury detected. Degenerative changes chronic sinus inflammation are stable findings. Mild fat stranding along the sternocleidomastoid muscle bilaterally. Electronically Signed: Lilliam Pringle MD at 3:51 EDT , Service support ,
--- NOTE | 2020-07-17 02:44 | CT_ITS ---
STUDY: CTA HEAD AND NECK WITH CONTRAST REASON FOR EXAM: Female, 55 years old. NECK TRAUMA/APHASIA RADIATION DOSAGE (If Supplied By Facility): CTDIvol = ( 17.49 ) mGy, DLP = ( 1064.59 ) mGycm TECHNIQUE: CT angiography was performed with a multi-detector CT scanner. Data acquisition was obtained from the skull base through the vertex following intravenous administration of IV 100mL [id number]-[id number]. MIP images were reconstructed from the axial data set. Post-processing of the angiographic images was performed, with multiplanar reformation and 3D reconstruction. Individualized dose optimization techniques were used for this CT. COMPARISON: No relevant priors. FINDINGS: Normal bilateral petrous carotid arteries. Normal right cavernous carotid artery with a normal supraclinoid bifurcation. Normal left cavernous carotid artery with a normal supraclinoid bifurcation. Normal right A1 segments of the anterior cerebral artery. Normal left A1 segments of the anterior cerebral artery. Normal intact anterior communicating artery (ACOM). Normal bilateral A2 segments of the anterior cerebral arteries. Normal right M1 and M2 segments of the middle cerebral arteries, with a normal M1 bifurcation. Normal left M1 and M2 segments of the middle cerebral arteries, with a normal M1 bifurcation. There is a persistent origin of the right posterior cerebral artery with absence of the posterior communicating artery (PCOM). Normal left posterior communicating artery (PCOM). Normal bilateral vertebral arteries. Normal basilar artery with a normal basilar bifurcation. The visualized bilateral superior cerebellar (SCA) arteries are normal. Normal bilateral P1, P2 and visualized P3 segments of the posterior cerebral arteries. There is no demonstrated aneurysm of the [place] of [place]. There is no demonstrated abnormality of the visualized brain. AORTIC ARCH: Normal visualized aortic arch. Normal origins of the brachiocephalic, left common carotid, and left subclavian arteries. RIGHT CAROTID ARTERIES: Normal right common carotid artery (CCA). Normal right common carotid bulb. Normal origin of the right internal carotid (ICA) artery without a hemodynamically significant stenosis. Normal visualized cervical portion of the right internal carotid artery. Normal origin of the right external carotid artery (ECA). LEFT CAROTID ARTERIES: Normal left common carotid artery (CCA). Normal left common carotid bulb. Normal origin of the left internal carotid (ICA) artery without a hemodynamically significant stenosis. Normal visualized cervical portion of the left internal carotid artery. Normal origin of the left external carotid artery (ECA). VERTEBRAL ARTERIES: Normal bilateral vertebral arteries. CT/CTA Head AND Neck W/ Contrast IMPRESSION: Normal CTA Head and neck with contrast. Electronically Signed: Madhu England, at 4:20 EDT Tel , Service support ,
--- NOTE | 2020-07-17 02:46 | CT_ITS ---
STUDY: CT BRAIN WITHOUT CONTRAST REASON FOR EXAM: Female, 55 years old. APHASIA;PT PRESENTS FOR MENTAL HEALTH EVALUATION. BROUGHT IN BY PD, CONCERN THAT PT IS UNABLE TO CARE FOR HERSELF. DENIES SUICIDAL IDEATIONS, STATES and quot;GOD WILL TAKE ME WHEN IT''S TIME, I DO NOT WANT TO KILL MYSELF and quot;. TECHNIQUE: Transaxial CT imaging of the brain was performed without administration of intravenous contrast material. Individualized dose optimization techniques were used for this CT. COMPARISON: CT brain noncontrast 07/14/2020 FINDINGS: Normal soft tissue structures. Normal calvarium. Portable nonunion posterior C1 ring, frequently congenital variant. Normal size ventricles and extra-axial spaces for the patient''s age. Normal white matter tracts of the cerebral hemispheres. Normal basal ganglia and thalami. Normal brainstem. Normal cerebellum. There is stable mild cerebellar tonsillar ectopia, with downward extension of cerebellar tonsils into the foramen magnum. The tonsils do not extend into the cervical spinal canal and the brainstem is not distorted. The findings do not constitute a Chiari type I malformation and they are considered to be within normal limits. There is no intracranial hemorrhage. There are no findings of an acute ischemic infarction. Normal visualized paranasal sinuses. CT/Brain/Head without Contrast IMPRESSION: There is no acute intracranial pathology. There is no significant interval change. N.B. : The above information has been verbally conveyed by Lilliam Pringle MD to Yu Wayne RN, on 07/17/2020 03:26:46 (ET). Electronically Signed: Lilliam Pringle MD at 3:28 EDT , Service support ,
[2020-07-17 02:55] LABS: Bedside Glucose 96 mg/dL (70-110)
[2020-07-17] MEDS: Labetalol (Prefilled) 20 MG/4 ML IV (03:45)
[2020-07-17] MEDS: 0.9% Normal Saline 1,000 ML 100 ML IV (04:50)
--- NOTE | 2020-07-17 05:17 | HP.PCM_ITS ---
Problem List (1) Conversion disorder Status: Acute (2) Orthostatic hypotension Status: Chronic (3) Psychosis Status: Chronic (4) Right hip pain Status: Chronic (5) Hyponatremia Status: Chronic (6) Hypokalemia Status: Chronic (7) PAF (paroxysmal atrial fibrillation) Status: Chronic (8) HTN (hypertension) Status: Chronic Qualifiers: Hypertension type: essential hypertension Qualified Code(s): I10 - Essential (primary) hypertension (9) HLD (hyperlipidemia) Status: Chronic Qualifiers: Hyperlipidemia type: unspecified Qualified Code(s): E78.5 - Hyperlipidemia, unspecified (10) Hypothyroidism Status: Chronic Qualifiers: Hypothyroidism type: unspecified Qualified Code(s): E03.9 - Hypothyroidism, unspecified (11) CKD (chronic kidney disease) stage 3, GFR 30-59 ml/min Status: Chronic (12) Migraine Status: Chronic Qualifiers: Migraine type: unspecified Status migrainosus presence: without status migrainosus Intractability: not intractable Qualified Code(s): G43.909 - Migraine, unspecified, not intractable, without status migrainosus (13) Asthma Status: Chronic Qualifiers: Asthma severity: unspecified severity Asthma persistence: unspecified Asthma complication type: unspecified Qualified Code(s): J45.909 - Unspecified asthma, uncomplicated (14) Tobacco use Status: Chronic (15) Depression Status: Chronic Qualifiers: Depression Type: unspecified Qualified Code(s): F32.9 - Major depressive disorder, single episode, unspecified (16) COPD, mild Status: Chronic (17) Schizophrenia Status: Chronic (18) Convulsion, non-epileptic Status: Chronic Comment: spells noted while undergoing EEG - not epileptic (19) Gastritis Status: Chronic (20) 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 Patient was brought by the police departments after patient expressed suicidal ideation to her counselor over the phone. Initially at emergency department patient denied suicidal ideation. At the emergency department arrangements was made to transport the patient to psychiatry facility. When EMS arrived to transport patient to a psychiatry facility there was a netting material wrapped around her neck. The netting material was originally placed over her hand to prevent her from scratching her skin since she was itching. Further when the EMS arrived to transport patient, patient could not move any of her extremities. Emergent department doctor reported that although she used a tongue depressor to apply pressure to patient soles patient did not flinch to the pain. Because of these new symptoms that developed at the ED tele-neurology was called for stroke evaluation. Since patient was getting close to 4-5 hours of TPA window; TPA was given. Emergent department doctor reported that patient could follow commands although she remained mute At hospital's examination patient remained mute and he will not follow commands. History was taken from emergency department doctor and nurses. Past Medical History Past Medical History (Chronic Problems): Chronic Problems (Last Reviewed 07/17/20 @ 07:[address] Amador Delgado MD) Orthostatic hypotension (Chronic) Psychosis (Chronic) Right hip pain (Chronic) Hyponatremia (Chronic) Hypokalemia (Chronic) PAF (paroxysmal atrial fibrillation) (Chronic) HTN (hypertension) (Chronic) HLD (hyperlipidemia) (Chronic) Hypothyroidism (Chronic) CKD (chronic kidney disease) stage 3, GFR 30-59 ml/min (Chronic) Migraine (Chronic) Asthma (Chronic) Tobacco use (Chronic) Depression (Chronic) COPD, mild (Chronic) Schizophrenia (Chronic) Convulsion, 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 Gastritis (Chronic) Conversion disorder with abnormal movement (Chronic) Medical History: Medical History (Last Reviewed 07/17/20 @ 07:[address] 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 Allergies adhesive tape Allergy (Verified 07/16/20 12:58) Rash atropine sulfate [From ] Allergy (Verified 07/16/20 12:58) Hives codeine phosphate [From Tylenol-Codeine #3] Allergy (Verified 07/16/20 12:58) breathing problems divalproex sodium [From Depakote] Allergy (Verified 07/16/20 12:58) Unknown hydromorphone HCl [From Dilaudid] Allergy (Verified 07/16/20 12:58) facial blisters,itching hyoscyamine sulfate [From ] Allergy (Verified 07/16/20 12:58) Hives Iodinated Contrast Media [Iodinated Contrast Media - IV Dye] Allergy (Verified 07/16/20 12:58) breathing problems and my bp went up latex Allergy (Verified 07/16/20 12:58) Rash pantoprazole sodium [From Protonix] Allergy (Verified 07/16/20 12:58) Rash phenobarbital [From ] Allergy (Verified 07/16/20 12:58) Hives promethazine HCl [From Phenergan] Allergy (Verified 07/16/20 12:58) Anaphylaxis ramipril Allergy (Verified 07/16/20 12:58) Unknown scopolamine hydrobromide [From ] Allergy (Verified 07/16/20 12:58) Hives ziprasidone mesylate [From Geodon] Allergy (Verified 07/16/20 12:58) Unknown Sulfa (Sulfonamide Antibiotics) Adverse Reaction (Verified 07/16/20 12:58) Vomiting ziprasidone HCl [From Geodon] Adverse Reaction (Verified 07/16/20 12:58) tremors VIDODIN TUSS Allergy (Uncoded 07/16/20 12:58) Itching Home Medications: Ambulatory Orders Medication Instructions Recorded Nitroglycerin [Nitrostat] 0.4 mg SL PRN PRN 06/19/17 traMADol [Ultram (G)] 50 mg PO Q6H PRN PRN 02/24/19 Guaifenesin [Mucinex] 600 mg PO BID 07/09/19 Gabapentin [Neurontin] 300 mg PO TID 09/06/19 Oxcarbazepine 1.5 tab PO QHS 09/06/19 Fluticasone 0.05% [Flonase Nasal 1 spray NASAL BID 10/18/19 Mereta] Hydroxyzine Pamoate [Vistaril] 50 mg PO Q6H PRN 10/18/19 Ondansetron [Zofran Odt] 4 mg PO Q8H PRN PRN #10 tab 10/18/19 budesonide-formoterol HFA 160 2 puff INHALATION Q12H #10.2 g 12/16/19 mcg-4.5 mcg/actuation aerosol inhaler levothyroxine 50 mcg tablet 50 mcg PO DAILY #90 tab 12/16/19 losartan 100 mg tablet 100 mg PO DAILY #90 tab 12/16/19 nifedipine 60 mg tablet,extended 60 mg PO BID #180 tab 12/16/19 release 24 hr spironolactone 25 mg tablet 25 mg PO QODAY #90 tab 12/16/19 albuterol sulfate 2.5 mg INHALATION Q6H PRN #75 ml 12/17/19 Risperidone [Risperdal] 1 mg PO QHS 01/04/20 cholecalciferol (vitamin D3) 1,250 50,000 unit PO QWEEK 90 Days #14 01/19/20 mcg (50,000 unit) capsule cap hydralazine 50 mg tablet 75 mg PO TID 90 Days #405 tab 01/19/20 melatonin 10 mg capsule 10 mg PO QHS #90 cap 01/19/20 valacyclovir 1 gram tablet 1,000 mg PO Q8H #21 tab 01/28/20 ipratropium 20 mcg-albuterol 100 1 puff INHALATION 4X/DAY PRN #4 g 04/02/20 mcg/actuation mist for inhalation aspirin 81 mg tablet,delayed 81 mg PO DAILY@0800 #30 tab 05/18/20 release loratadine 10 mg tablet 10 mg PO DAILY PRN #90 tab 05/18/20 Dicyclomine HCl [Bentyl] 20 mg PO Q6H PRN #20 cap 07/15/20 Surgical History: Surgical History (Last Reviewed 07/17/20 @ 07:[address] Amador Delgado MD) History of uterine suspension procedure Z87.448 Hx of cholecystectomy Z98.890, Z90.49 S/P carpal tunnel release Z98.890 right x2 02/02/15 bladder sling left foot Surgical History: - - Cholecystectomy, R carpal tunnel surgery, L foot surgery, Uterine suspension and bladder sling. 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 Amador Delgado MD) Sister Myocardial infarction Colon cancer Mother Hypertension Arthritis Brain aneurysm Sister Colon cancer History Items: No pertinent history Sibling Family History: Family History (Last Reviewed 07/17/20 @ 07:[address] Amador Delgado MD) Sister Myocardial infarction Colon cancer Mother Hypertension Arthritis Brain aneurysm Sister Colon cancer History Items: Heart Disease Maternal Family History: Family History (Last Reviewed 07/17/20 @ 07:[address] Amador Delgado MD) Sister Myocardial infarction Colon cancer Mother Hypertension Arthritis Brain aneurysm Sister Colon cancer History Items: Hypertension Review of Systems Unable to obtain accurate/complete ROS d/t: Mute and not following commands. VTE Information - Inpt Only VTE Present on Admission: No VTE Mechan Device Prophylaxis: None VTE Pharm Prophylaxis ordered?: No Reason prophylaxis not ordered:: Treatment Not Indicated - Patient received TPA. Patient Problems: Active and Suspected Problems (Last Reviewed 07/17/20 @ 07:[address] Amador Delgado MD) Conversion disorder (Acute) - Physical Exam Vitals/I&O's: Vital Signs Temp Pulse Resp BP Pulse Ox 99.5 F H 58 L 14 153/71 H 97 07/17/20 05:00 07/17/20 05:00 07/17/20 05:00 07/17/20 05:00 07/17/20 05:00 Oxygen Delivery Method Room Air Weight: 92.9 kg Body Mass Index (BMI) 34.0 Finger Stick Blood Glucose 96 Intake and Output for Last 24 Hours 07/15/20 07/16/20 07/17/20 23:59 23:59 23:59 Intake Total 75.3 / 75.3 Balance 75.3 / 75.3 General: Alert, - - Patient is mute and not following commands. HEENT: Atraumatic, PERRLA, EOMI, Normocephalic Neck: Supple, No JVD, Negative Carotid Bruits, Trachea Midline Lungs: Clear to auscultation, Normal air movement Cardiovascular: Regular rate, Normal S1, Normal S2, No murmurs Abdomen: Bowel Sounds Present, Soft, Non Tender Extremities: No edema, Capillary Refill Less than 3 Seconds Skin: No rashes, No breakdown Musculoskeletal: No Tenderness to Palpation of Joints or Extremities Neurological: - - Patient is mute and not following commands. Psych/Mental Status: Flat Affect Laboratory Results 07/16/20 13:43: WBC Cancelled, Corrected WBC Cancelled, RBC Cancelled, Hgb Cancelled, Hct Cancelled, MCV Cancelled, MCH Cancelled, MCHC Cancelled, RDW Std Deviation Cancelled, RDW Coeff of Yonathan Cancelled, Plt Count Cancelled, MPV Cancelled, Immature Gran % (Auto) Cancelled, Neut % (Auto) Cancelled, Lymph % (Auto) Cancelled, [place] % (Auto) Cancelled, Eos % (Auto) Cancelled, Baso % (Auto) Cancelled, Absolute Neuts (auto) Cancelled, Absolute Lymphs (auto) Cancelled, Total Counted Cancelled, Neutrophils % (Manual) Cancelled, Band Neutrophils % Cancelled, Lymphocytes % (Manual) Cancelled, Monocytes % (Manual) Cancelled, Eosinophils % (Manual) Cancelled, Basophils % (Manual) Cancelled, Metamyelocytes % Cancelled, Myelocytes % Cancelled, Promyelocytes % Cancelled, Blast Cells % Cancelled, Plasma Cell % (Manual) Cancelled, Other Cells % Cancelled, Nucleated RBC % Cancelled, Nucleated RBCs/100 WBC Cancelled, Differential Comment Cancelled, Diff Path Review Cancelled, Hypersegmented Neuts Cancelled, Atypical Lymphocytes Cancelled, Reactive Lymphocytes Cancelled, Smudge Cells Cancelled, Toxic Granulation Cancelled, Toxic Vacuolation Cancelled, Dohle Bodies Cancelled, Darcie Rods Cancelled, Platelet Estimate Cancelled, Plt Morphology Comment Cancelled, RBC Morphology Cancelled, Polychromasia Cancelled, Hypochromasia Cancelled, Poikilocytosis Cancelled, Basophilic Stippling Cancelled, Anisocytosis Cancelled, Microcytosis Cancelled, Macrocytosis Cancelled, Spherocytes Cancelled, Sickle Cells Cancelled, Target Cells Cancelled, Tear Drop Cells Cancelled, Ovalocytes Cancelled, Stomatocytes Cancelled, Ralph-Sunman Bodies Cancelled, [place] Cells Cancelled, Bite Cells Cancelled, Crenated Cell Cancelled, Acanthocytes (Spur) Cancelled, Rouleaux Cancelled, Schistocytes Cancelled 07/16/20 13:43: Sodium 141, Potassium 4.0, Chloride 112 H, Carbon Dioxide 25.0, Anion Gap 4 L, BUN 10, Creatinine 1.11 H, Estim Creat Clear Calc 50.92, Est GFR (MDRD) Af Amer 65, Est GFR (MDRD) Non-Af 54 L, BUN/Creatinine Ratio 9.0 L, Glucose 91, Calcium 9.5 07/16/20 13:43: Ethyl Alcohol < 3.0 07/16/20 13:43: Total Creatine Kinase 101 07/16/20 15:05: WBC 6.1, RBC 4.90, Hgb 14.5, Hct 42.2, MCV 86.1, MCH 29.6, MCHC 34.4, RDW Std Deviation 40.5, RDW Coeff of Yonathan 13.0, Plt Count 297, MPV 9.8, Immature Gran % (Auto) 0.300, Neut % (Auto) 62.9, Lymph % (Auto) 24.3, [place] % (Auto) 8.2, Eos % (Auto) 4.0, Baso % (Auto) 0.3, Absolute Neuts (auto) 3.8, Absolute Lymphs (auto) 1.46, Nucleated RBC % 0 07/16/20 19:13: Urine Opiates Screen POSITIVE H, Urine Methadone Screen NEGATIVE, Ur Barbiturates Screen NEGATIVE, Ur Phencyclidine Scrn NEGATIVE, Ur Amphetamines Screen POSITIVE H, U Methamphetamin-MDMA NEGATIVE, U Benzodiazepines Scrn NEGATIVE, Urine Cocaine Screen NEGATIVE, U Cannabinoids Screen POSITIVE H, Ur Drug Screen Comment 07/16/20 21:17: COVID-19 (ARIELA) Not Detected 07/17/20 02:52: POC Glucose 96 07/17/20 05:00: PT Pending, INR Pending, APTT Pending Current Medications Acetaminophen (Tylenol) 650 mg PO .X1 PRN PRN Reason: Temp > 99.6 F Diphenhydramine HCl (Benadryl) 50 mg IV .X1 PRN PRN Reason: Allergic Reaction Stop: 07/19/20 03:29 Sodium Chloride () 1,000 mls @ 100 mls/hr IV .Q10H IRVING Last Admin: 07/17/20 04:50 Dose: 100 mls/hr Documented by: Famotidine 20 mg/ Sodium (Chloride) 10 mls @ 300 mls/hr IV .X1 PRN PRN Reason: Allergic Reaction Stop: 07/19/20 03:29 Nicardipine/Dextrose (Cardene-Dex 20 Mg/200 Ml Soln) 20 mg in 200 mls @ 50 mls/hr IV .Q4H PRN; Protocol PRN Reason: See Instructions Last Admin: 07/17/20 04:48 Dose: 5 mg/hr, 50 mls/hr Documented by: Labetalol HCl (Trandate) 20 mg IV X1 PRN; Protocol PRN Reason: BLOOD PRESSURE Last Admin: 07/17/20 03:45 Dose: 20 mg Documented by: Assessment/Plan All Active Problems (Last Reviewed 07/17/20 @ 07:[address] Amador Delgado MD) Conversion disorder (Acute) The patient is a 55 year old F with a significant history of CKD stage III; stroke; hypothyroidism; depression and schizophrenia now with mutism and with suicidal attempts; as well as inability to move all extremities when EMS was ready to take it to a psychiatry facility and received TPA because of purported stroke in an attempt not to miss TPA window. Conversion disorder/malingering. Emergency department doctor reported that after patient episode of mutism and not moving any of her extremities; and not responding to pain she continued to follow commands. However upon my examination the patient was not following commands. Patient was not moving any of her extremities. However when her bilateral arms was passively directed to her eyes, multiple times; her bilateral arms did not hit her eyes or face. Received a TPA at emergency department. Per TPA protocol avoid antiplatelets in 24 hours. Get MRI at 24 hours after giving TPA. Consider discussing with [facility] neurologist per TPA protocol. Patient has very high blood pressure however on patient's problem list is a history of hypertensive crisis. This is very unlikely stroke. However patient will be observed at the intensive care unit. We will consult dragline operator helper to seek opinion. PT and OT to evaluate patient. Speech therapy to evaluate the patient. Hypertensive emergency Received labetalol a per TPA protocol Cardene drip was started at emergency department, continued Trend blood pressures. Consider resuming home blood pressure medication in 24 hours or when stroke is ruled out with MRI. Suicidal attempt Sitter by patient at all times. Depression/schizophrenia Clinical monitoring. Consider psychotropic medication as needed. Drug abuse Urine toxicology was positive for opiates; amphetamines and cannabinoids. Counseled when appropriate. DVT prophylaxis Not indicated since patient has received TPA. OBSV E&M: [id number] Initial observation care L3
[2020-07-17 05:21] LABS: International Normalized Ratio 1.1; Partial Thromboplast Time 27.8 Seconds (24.1-36.2); Prothrombin Time (Protime)PT. 13.3 SECONDS (11.7-14.9)
--- NOTE | 2020-07-17 08:00 | NURSING ---
When assessing patient and performing NIHSS testing, patient is unable to raise arms or move legs, has pressured speech to questions although easily understood once verbalized. After NIHSS assessment is complete and this RN moves on to other assessments, the patient is noted to be spontaneously moving bilateral arms above her head to stretch and scratching her nose and back of head. She is able to converse without difficulty and is easily understood. She was observed to spontaneously move bilateral lower extremities. Sitter at patient's bedside stated that she observed patient repositioning self for comfort as well. This RN returned to reassess patients NIHSS but results were the same as previous assessment with pressured speech, was only able to make some effort against gravity, legs remained flaccid. Dr Vazquez, Dr Barron aware of discrepancies.
--- NOTE | 2020-07-17 09:08 | CON.PCM_ITS ---
Problem List (1) Orthostatic hypotension Status: Chronic (2) Conversion disorder Status: Acute (3) Right hip pain Status: Chronic (4) PAF (paroxysmal atrial fibrillation) Status: Chronic (5) HTN (hypertension) Status: Chronic Qualifiers: Hypertension type: essential hypertension Qualified Code(s): I10 - Es sential (primary) hypertension (6) HLD (hyperlipidemia) Status: Chronic Qualifiers: Hyperlipidemia type: unspecified Qualified Code(s): E78.5 - Hyperlipidemia, unspecified (7) Hypothyroidism Status: Chronic Qualifiers: Hypothyroidism type: unspecified Qualified Code(s): E03.9 - Hypothyroidism, unspecified (8) Asthma Status: Chronic Qualifiers: Asthma severity: unspecified severity Asthma persistence: unspecified Asthma complication type: unspecified Qualified Code(s): J45.909 - Unspecified asthma, uncomplicated (9) Tobacco use Status: Chronic (10) Depression Status: Chronic Qualifiers: Depression Type: unspecified Qualified Code(s): F32.9 - Major depressive disorder, single episode, unspecified (11) Schizophrenia Status: Chronic (12) Convulsion, non-epileptic Status: Chronic Comment: spells noted while undergoing EEG - not epileptic (13) 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 Patient reportedly was brought in by police when her counselor had requested them to evaluate. Patient reportedly had talked to her counselor and had flight of ideas, but was stating that she may want to hurt her self. In the ER, patient reportedly had flight of ideas with pressured speech and nonlinear thinking. Patient did not have any complaints at that time. Exact events in the ER are unclear at this point. However, it was understood that the patient was evaluated by crisis and thought to not have suicidal ideation. The patient was later found with netting around her neck and new neurologic symptoms. Patient was hypertensive at that time and was sent to CT scan. After evaluation with neurology, patient was given TPA for reported NIH scale of 23. Patient was then transferred to the intensive care unit for further evaluation. Since being in the intensive care unit, patient has been hemodynamically stable. Patient has had a highly variable neurologic exam. On my evaluation, patient was able to point to her back at the location of her pain. Patient states the pain was sharp in nature and localized to the lower back in the paraspinal area. This was worse with palpation. Patient is not reporting any dysuria or hematuria. When asked to move her legs, the patient stated that she typically cannot move her legs if she is lying on her back too long and that she thought that this would get better if I could just stand up. Patient is very evasive about questioning her motives on putting the netting around her neck. When asked to move her left arm the patient reported that she had severe pain in her arm with any movement. Patient stated that the pain was localized throughout the arm and had no pressure or pain in the shoulder or back. Review of systems otherwise negative from a constitutional, HEENT, respiratory, cardiovascular, GI, genitourinary, musculoskeletal, skin, neurologic, psychiatric and hematologic system unless stated above. Past Medical History Past Medical History (Chronic Problems): Chronic Problems (Last Reviewed 07/17/20 @ 07:[address] Amador Delgado MD) Orthostatic hypotension (Chronic) Psychosis (Chronic) Right hip pain (Chronic) Hyponatremia (Chronic) Hypokalemia (Chronic) PAF (paroxysmal atrial fibrillation) (Chronic) HTN (hypertension) (Chronic) HLD (hyperlipidemia) (Chronic) Hypothyroidism (Chronic) CKD (chronic kidney disease) stage 3, GFR 30-59 ml/min (Chronic) Migraine (Chronic) Asthma (Chronic) Tobacco use (Chronic) Depression (Chronic) COPD, mild (Chronic) Schizophrenia (Chronic) Convulsion, 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 Gastritis (Chronic) Conversion disorder with abnormal movement (Chronic) Medical History: Medical History (Last Reviewed 07/17/20 @ 07:[address] 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 Allergies adhesive tape Allergy (Verified 07/16/20 12:58) Rash atropine sulfate [From ] Allergy (Verified 07/16/20 12:58) Hives codeine phosphate [From Tylenol-Codeine #3] Allergy (Verified 07/16/20 12:58) breathing problems divalproex sodium [From Depakote] Allergy (Verified 07/16/20 12:58) Unknown hydromorphone HCl [From Dilaudid] Allergy (Verified 07/16/20 12:58) facial blisters,itching hyoscyamine sulfate [From ] Allergy (Verified 07/16/20 12:58) Hives Iodinated Contrast Media [Iodinated Contrast Media - IV Dye] Allergy (Verified 07/16/20 12:58) breathing problems and my bp went up latex Allergy (Verified 07/16/20 12:58) Rash pantoprazole sodium [From Protonix] Allergy (Verified 07/16/20 12:58) Rash phenobarbital [From ] Allergy (Verified 07/16/20 12:58) Hives promethazine HCl [From Phenergan] Allergy (Verified 07/16/20 12:58) Anaphylaxis ramipril Allergy (Verified 07/16/20 12:58) Unknown scopolamine hydrobromide [From ] Allergy (Verified 07/16/20 12:58) Hives ziprasidone mesylate [From Geodon] Allergy (Verified 07/16/20 12:58) Unknown Sulfa (Sulfonamide Antibiotics) Adverse Reaction (Verified 07/16/20 12:58) Vomiting ziprasidone HCl [From Geodon] Adverse Reaction (Verified 07/16/20 12:58) tremors VIDODIN TUSS Allergy (Uncoded 07/16/20 12:58) Itching Home Medications: Ambulatory Orders Medication Instructions Recorded Nitroglycerin [Nitrostat] 0.4 mg SL PRN PRN 06/19/17 traMADol [Ultram (G)] 50 mg PO Q6H PRN PRN 02/24/19 Guaifenesin [Mucinex] 600 mg PO BID 07/09/19 Gabapentin [Neurontin] 300 mg PO TID 09/06/19 Oxcarbazepine 1.5 tab PO QHS 09/06/19 Fluticasone 0.05% [Flonase Nasal 1 spray NASAL BID 10/18/19 [place]] Hydroxyzine Pamoate [Vistaril] 50 mg PO Q6H PRN 10/18/19 Ondansetron [Zofran Odt] 4 mg PO Q8H PRN PRN #10 tab 10/18/19 budesonide-formoterol HFA 160 2 puff INHALATION Q12H #10.2 g 12/16/19 mcg-4.5 mcg/actuation aerosol inhaler levothyroxine 50 mcg tablet 50 mcg PO DAILY #90 tab 12/16/19 losartan 100 mg tablet 100 mg PO DAILY #90 tab 12/16/19 nifedipine 60 mg tablet,extended 60 mg PO BID #180 tab 12/16/19 release 24 hr spironolactone 25 mg tablet 25 mg PO QODAY #90 tab 12/16/19 albuterol sulfate 2.5 mg INHALATION Q6H PRN #75 ml 12/17/19 Risperidone [Risperdal] 1 mg PO QHS 01/04/20 cholecalciferol (vitamin D3) 1,250 50,000 unit PO QWEEK 90 Days #14 01/19/20 mcg (50,000 unit) capsule cap hydralazine 50 mg tablet 75 mg PO TID 90 Days #405 tab 01/19/20 melatonin 10 mg capsule 10 mg PO QHS #90 cap 01/19/20 valacyclovir 1 gram tablet 1,000 mg PO Q8H #21 tab 01/28/20 ipratropium 20 mcg-albuterol 100 1 puff INHALATION 4X/DAY PRN #4 g 04/02/20 mcg/actuation mist for inhalation aspirin 81 mg tablet,delayed 81 mg PO DAILY@0800 #30 tab 05/18/20 release loratadine 10 mg tablet 10 mg PO DAILY PRN #90 tab 05/18/20 Dicyclomine HCl [Bentyl] 20 mg PO Q6H PRN #20 cap 07/15/20 Surgical History: Surgical History (Last Reviewed 07/17/20 @ 07:[address] Amador Delgado MD) History of uterine suspension procedure Z87.448 Hx of cholecystectomy Z98.890, Z90.49 S/P carpal tunnel release Z98.890 right x2 02/02/15 bladder sling left foot Surgical History: - - Cholecystectomy, R carpal tunnel surgery, L foot surgery, Uterine suspension and bladder sling. Psychiatric History: Anxiety, Depression, Schizophrenia [employer] History: No pertinent [employer] history Lives: Homeless Smoking Status: Current every day smoker Tobacco Use: Cigarettes Alcohol: None Drugs: Marijuana - *Family History Paternal Family History: Family History (Last Reviewed 07/17/20 @ 07:[address] Amador Delgado MD) Sister Myocardial infarction Colon cancer Mother Hypertension Arthritis Brain aneurysm Sister Colon cancer History Items: No pertinent history Sibling Family History: Family History (Last Reviewed 07/17/20 @ 07:[address] Amador Delgado MD) Sister Myocardial infarction Colon cancer Mother Hypertension Arthritis Brain aneurysm Sister Colon cancer History Items: Heart Disease Maternal Family History: Family History (Last Reviewed 07/17/20 @ 07:[address] Amador Delgado MD) Sister Myocardial infarction Colon cancer Mother Hypertension Arthritis Brain aneurysm Sister Colon cancer History Items: Hypertension Review of Systems Unable to obtain accurate/complete ROS d/t: Flight of ideas Patient Problems: Active and Suspected Problems (Last Reviewed 07/17/20 @ 07:[address] Amador Delgado MD) Conversion disorder (Acute) - Physical Exam Vitals/I&O's: Vital Signs Temp Pulse Resp BP Pulse Ox 36.6 C 67 22 H 146/78 H 95 07/17/20 06:30 07/17/20 09:00 07/17/20 09:00 07/17/20 09:00 07/17/20 09:00 Oxygen Delivery Method Room Air Weight: 90.492 kg Body Mass Index (BMI) 33.2 Finger Stick Blood Glucose 96 Intake and Output for Last 24 Hours 07/15/20 07/16/20 07/17/20 23:59 23:59 23:59 Intake Total 75.3 / 75.3 Output Total 650 / 650 Balance -574.7 / -574.7 General: Alert, Confused, Disoriented, - - Does not appear to have any aphasia or dysarthria, but rapidly changes HEENT: Atraumatic, PERRLA, EOMI, Normocephalic, - - No facial droop noted. Oral: Moist Mucosa, No Gingival or Mucosal Lesions/ Ulcerations Neck: Supple, No JVD, No Nodes, Trachea Midline Lungs: Clear to auscultation, Normal air movement, No rhonchi, No wheeze, No rales Cardiovascular: Regular rate, Regular Rhythm, Normal S1, Normal S2, No murmurs, No rub noted, No Gallop Abdomen: Bowel Sounds Present, Soft, Non Tender, Non-Distended, Obese Extremities: No clubbing, No cyanosis, Edema - Trace lower extremity Skin: No rashes, No breakdown Musculoskeletal: Tenderness - Paraspinal in the lower back Lymphatic: No Cervical, Supraclavicular, or Inguinal Adenopathy Neurological: - - Patient conversing appropriately. No facial droop is appreciated. Patient refuses to move the legs and is actively moving right upper extremity. Patient does not cooperate with a true NIH Psych/Mental Status: Anxious, Impulsive, Restless Laboratory Results 07/16/20 13:43: WBC Cancelled, Corrected WBC Cancelled, RBC Cancelled, Hgb Cancelled, Hct Cancelled, MCV Cancelled, MCH Cancelled, MCHC Cancelled, RDW Std Deviation Cancelled, RDW Coeff of Yonathan Cancelled, Plt Count Cancelled, MPV Cancelled, Immature Gran % (Auto) Cancelled, Neut % (Auto) Cancelled, Lymph % (Auto) Cancelled, Brewster % (Auto) Cancelled, Eos % (Auto) Cancelled, Baso % (Auto) Cancelled, Absolute Neuts (auto) Cancelled, Absolute Lymphs (auto) Cancelled, Total Counted Cancelled, Neutrophils % (Manual) Cancelled, Band Neutrophils % Cancelled, Lymphocytes % (Manual) Cancelled, Monocytes % (Manual) Cancelled, Eosinophils % (Manual) Cancelled, Basophils % (Manual) Cancelled, Metamyelocytes % Cancelled, Myelocytes % Cancelled, Promyelocytes % Cancelled, Blast Cells % Cancelled, Plasma Cell % (Manual) Cancelled, Other Cells % Cancelled, Nucleated RBC % Cancelled, Nucleated RBCs/100 WBC Cancelled, Differential Comment Cancelled, Diff Path Review Cancelled, Hypersegmented Neuts Cancelled, Atypical Lymphocytes Cancelled, Reactive Lymphocytes Cancelled, Smudge Cells Cancelled, Toxic Granulation Cancelled, Toxic Vacuolation Cancelled, Dohle Bodies Cancelled, Darcie Rods Cancelled, Platelet Estimate Cancelled, Plt Morphology Comment Cancelled, RBC Morphology Cancelled, Polychromasia Cancelled, Hypochromasia Cancelled, Poikilocytosis Cancelled, Basophilic Stippling Cancelled, Anisocytosis Cancelled, Microcytosis Cancelled, Macrocytosis Cancelled, Spherocytes Cancelled, Sickle Cells Cancelled, Target Cells Cancelled, Tear Drop Cells Cancelled, Ovalocytes Cancelled, Stomatocytes Cancelled, Ralph-Shattuck Bodies Cancelled, Darren Cells Cancelled, Bite Cells Cancelled, Crenated Cell Cancelled, Acanthocytes (Spur) Cancelled, Rouleaux Cancelled, Schistocytes Cancelled 07/16/20 13:43: Sodium 141, Potassium 4.0, Chloride 112 H, Carbon Dioxide 25.0, Anion Gap 4 L, BUN 10, Creatinine 1.11 H, Estim Creat Clear Calc 50.92, Est GFR (MDRD) Af Amer 65, Est GFR (MDRD) Non-Af 54 L, BUN/Creatinine Ratio 9.0 L, Glucose 91, Calcium 9.5 07/16/20 13:43: Ethyl Alcohol < 3.0 07/16/20 13:43: Total Creatine Kinase 101 07/16/20 15:05: WBC 6.1, RBC 4.90, Hgb 14.5, Hct 42.2, MCV 86.1, MCH 29.6, MCHC 34.4, RDW Std Deviation 40.5, RDW Coeff of Yonathan 13.0, Plt Count 297, MPV 9.8, Immature Gran % (Auto) 0.300, Neut % (Auto) 62.9, Lymph % (Auto) 24.3, Brewster % (Auto) 8.2, Eos % (Auto) 4.0, Baso % (Auto) 0.3, Absolute Neuts (auto) 3.8, Absolute Lymphs (auto) 1.46, Nucleated RBC % 0 07/16/20 19:13: Urine Opiates Screen POSITIVE H, Urine Methadone Screen NEGATIVE, Ur Barbiturates Screen NEGATIVE, Ur Phencyclidine Scrn NEGATIVE, Ur Amphetamines Screen POSITIVE H, U Methamphetamin-MDMA NEGATIVE, U Benzodiazepines Scrn NEGATIVE, Urine Cocaine Screen NEGATIVE, U Cannabinoids Screen POSITIVE H, Ur Drug Screen Comment 07/16/20 21:17: COVID-19 (ARIELA) Not Detected 07/17/20 02:52: POC Glucose 96 07/17/20 05:00: PT 13.3, INR 1.1, APTT 27.8 Current Medications Acetaminophen (Tylenol) 650 mg PO Q6H PRN PRN PRN Reason: Temp > 99.6 F Diphenhydramine HCl (Benadryl) 50 mg IV X1 PRN PRN Reason: Allergic Reaction Sodium Chloride () 250 mls @ 15 mls/hr IV .[id number] PRN PRN Reason: Saline Flush Sodium Chloride () 250 mls @ 15 mls/hr IV .[id number] PRN PRN Reason: Additional IVPB Infusion Famotidine 20 mg/ Sodium (Chloride) 10 mls @ 300 mls/hr IV X1 PRN PRN Reason: Allergic Reaction Nicardipine/Dextrose (Cardene-Dex 20 Mg/200 Ml Soln) 20 mg in 200 mls @ 50 mls /hr IV .Q4H PRN; Protocol PRN Reason: See Instructions Lactated Ringer's () 1,000 mls @ 75 mls/hr IV .[id number] IRVING Last Admin: 07/17/20 08:30 Dose: Not Given Documented by: Ondansetron HCl (Zofran) 4 mg IV Q8H PRN PRN PRN Reason: NAUSEA/VOMITING Sodium Chloride () 10 - 40 ml IV UD PRN PRN Reason: SALINE FLUSH Clinical Impression(s) from Imaging Studies Head/Neck CTA 07/17/20 02:44 IMPRESSION: Normal CTA Head and neck with contrast. Electronically Signed: Madhu England at 4:20 EDT Tel , Service support , Soft Tissue Neck CT 07/17/20 02:44 IMPRESSION: No acute osseous or soft tissue injury detected. Degenerative changes chronic sinus inflammation are stable findings. Mild fat stranding along the sternocleidomastoid muscle bilaterally. Electronically Signed: Lilliam Pringle MD at 3:51 EDT , Service support , Brain CT 07/17/20 02:46 IMPRESSION: There is no acute intracranial pathology. There is no significant interval change. N.B. : The above information has been verbally conveyed by Lilliam Pringle MD to Yu Wayne RN, on 07/17/2020 03:26:46 (ET). Electronically Signed: Lilliam Pringle MD at 3:28 EDT , Service support , ADDENDUM: 07/17/20 0335 IMPRESSION: There is no acute intracranial pathology. There is no significant interval change. N.B. : The above information has been verbally conveyed by Lilliam Pringle MD to Yu Wayne RN, on 07/17/2020 03:26:46 (ET). Electronically Signed: Lilliam Pringle MD at 3:28 EDT , Service support , Assessment/Plan Active and Suspected Problems (Last Reviewed 07/17/20 @ 07:[address] Amador Delgado MD) Conversion disorder (Acute) RECOMMENDATIONS: 1. Continue with post TPA protocol 2. PRN antihypertensives as tolerated 3. Bedside sitter to prevent fall risk 4. Will need crisis evaluation 5. May require significant sedation to complete an MRI and current state 6. Haldol as needed for agitation IMPRESSIONS: 1. Status post TPA with possible conversion disorder versus malingering Patient with new onset symptoms when transport arrived to transport to a psych facility. Original presentation does not appear to match with any typical neurologic stroke patterns. Patient will need to be monitored for 24 hours for bleeding complications. Patient is having recovery of reported symptoms. Patient will need an MRI at 24 hours. Low clinical suspicion for acute stroke. PT/OT can evaluate the patient. Will follow stroke protocol for the 24 hours. Patient should have PRN medications if necessary to avoid complications of TPA. 2. Suicide attempt/schizophrenia/depression Patient recently cleared by crisis. However, patient did take netting and attempted to make a ligature. This does not appear to have any physiologic repercussions, but does not diminish from the intention. Patient will need to be seen by crisis prior to discharge. Unclear if current symptomatology secondary to noncompliance with medications. Would recommend Haldol if necessary for agitation. 3. Drug abuse Patient's urine is tested positive for opiates, amphetamines and parrish abinoids. Will monitor for signs and symptoms of withdrawal. Hold on any medications for now. Inpatient E&M: 77202 Init Hosp L2
[2020-07-17] MEDS: Lactated Ringers 1,000 ML 75 ML IV (10:07)
--- NOTE | 2020-07-17 10:33 | PN_ITS ---
Patient Problems: Active and Suspected Problems (Last Reviewed 07/17/20 @ 07:[address] Amador Delgado MD) Conversion disorder (Acute) Subjective: Patient seen and examined. She was examined in the early hours of today with a complaint of suicidal ideation. On admission, subsequently denies suicidal ideation. Subsequently got up really no move any of her extremities in the ED call for stroke evaluation. Neurology reviewed patient and she was given TPA due to concerns for possible stroke. CT of the brain showed no acute i ntracranial pathology. Soft tissue head and neck CT showed no acute osseous or soft tissue injury detected and mild fat stranding along the sternocleidomastoid muscle bilaterally. CTA of the head and neck was normal. Patient was resting peacefully in bed. She had no complaints. She talked in a very soft, weak voice, though occasionally, her voice would normalise. Review of systems was otherwise negative. When I asked about suicidal ideation, patient said she didnt want to talk about that, and wouldnt answer any more questions. She has remained hemodynamically stable. Vitals/I&O's: Vital Signs Temp Pulse Resp BP Pulse Ox 97.4 F L 55 L 12 148/73 H 97 07/17/20 10:00 07/17/20 10:00 07/17/20 10:00 07/17/20 10:00 07/17/20 10:00 Oxygen Delivery Method Room Air Weight: 199 lb 8 oz Body Mass Index (BMI) 33.2 Finger Stick Blood Glucose 96 Intake and Output for Last 24 Hours 07/15/20 07/16/20 07/17/20 23:59 23:59 23:59 Intake Total 816.97 / 816.97 Output Total 650 / 650 Balance 166.97 / 166.97 General: Alert, Oriented x3, Cooperative, Lethargic HEENT: Atraumatic, PERRLA, EOMI, Normocephalic Oral: Dry Mucosa Neck: Supple, No JVD, Negative Carotid Bruits Lungs: Clear to auscultation, Normal air movement, No rhonchi, No wheeze, No rales Cardiovascular: Regular rate, Normal S1, Normal S2, No murmurs, Bradycardic Abdomen: Bowel Sounds Present, Soft, Non Tender, Non-Distended, No Hepato- splenomegaly Extremities: No clubbing, No cyanosis, No edema, Capillary Refill Less than 3 Seconds Skin: No rashes, No breakdown Musculoskeletal: No Tenderness to Palpation of Joints or Extremities Lymphatic: No Cervical, Supraclavicular, or Inguinal Adenopathy Neurological: Cranial nerves II-XII grossly intact, - - patient's extremities all appear to be flaccid,a s they drop on the bed when lifted; however, some mild spontaneous movement of extremities noted Psych/Mental Status: Flat Affect Laboratory Results 07/16/20 13:43: WBC Cancelled, Corrected WBC Cancelled, RBC Cancelled, Hgb Cancelled, Hct Cancelled, MCV Cancelled, MCH Cancelled, MCHC Cancelled, RDW Std Deviation Cancelled, RDW Coeff of Yonathan Cancelled, Plt Count Cancelled, MPV Cancelled, Immature Gran % (Auto) Cancelled, Neut % (Auto) Cancelled, Lymph % (Auto) Cancelled, Coffee % (Auto) Cancelled, Eos % (Auto) Cancelled, Baso % (Auto) Cancelled, Absolute Neuts (auto) Cancelled, Absolute Lymphs (auto) Cancelled, Total Counted Cancelled, Neutrophils % (Manual) Cancelled, Band Neutrophils % Cancelled, Lymphocytes % (Manual) Cancelled, Monocytes % (Manual) Cancelled, Eosinophils % (Manual) Cancelled, Basophils % (Manual) Cancelled, Metamyelocytes % Cancelled, Myelocytes % Cancelled, Promyelocytes % Cancelled, Blast Cells % Cancelled, Plasma Cell % (Manual) Cancelled, Other Cells % Cancelled, Nucleated RBC % Cancelled, Nucleated RBCs/100 WBC Cancelled, Differential Comment Cancelled, Diff Path Review Cancelled, Hypersegmented Neuts Cancelled, Atypical Lymphocytes Cancelled, Reactive Lymphocytes Cancelled, Smudge Cells Cancelled, Toxic Granulation Cancelled, Toxic Vacuolation Cancelled, Dohle Bodies Cancelled, Darcie Rods Cancelled, Platelet Estimate Cancelled, Plt Morphology Comment Cancelled, RBC Morphology Cancelled, Polychromasia Cancelled, Hypochromasia Cancelled, Poikilocytosis Cancelled, Basophilic Stippling Cancelled, Anisocytosis Cancelled, Microcytosis Cancelled, Macrocytosis Cancelled, Spherocytes Cancelled, Sickle Cells Cancelled, Target Cells Cancelled, Tear Drop Cells Cancelled, Ovalocytes Cancelled, Stomatocytes Cancelled, [place] Bodies Cancelled, [place] Cells Cancelled, Bite Cells Cancelled, Crenated Cell Cancelled, Acanthocytes (Spur) Cancelled, Rouleaux Cancelled, Schistocytes Cancelled 07/16/20 13:43: Sodium 141, Potassium 4.0, Chloride 112 H, Carbon Dioxide 25.0, Anion Gap 4 L, BUN 10, Creatinine 1.11 H, Estim Creat Clear Calc 50.92, Est GFR (MDRD) Af Amer 65, Est GFR (MDRD) Non-Af 54 L, BUN/Creatinine Ratio 9.0 L, Glucose 91, Calcium 9.5 07/16/20 13:43: Ethyl Alcohol < 3.0 07/16/20 13:43: Total Creatine Kinase 101 07/16/20 15:05: WBC 6.1, RBC 4.90, Hgb 14.5, Hct 42.2, MCV 86.1, MCH 29.6, MCHC 34.4, RDW Std Deviation 40.5, RDW Coeff of Yonathan 13.0, Plt Count 297, MPV 9.8, Immature Gran % (Auto) 0.300, Neut % (Auto) 62.9, Lymph % (Auto) 24.3, Coffee % (Auto) 8.2, Eos % (Auto) 4.0, Baso % (Auto) 0.3, Absolute Neuts (auto) 3.8, Absolute Lymphs (auto) 1.46, Nucleated RBC % 0 07/16/20 19:13: Urine Opiates Screen POSITIVE H, Urine Methadone Screen NEGATIVE, Ur Barbiturates Screen NEGATIVE, Ur Phencyclidine Scrn NEGATIVE, Ur Amphetamines Screen POSITIVE H, U Methamphetamin-MDMA NEGATIVE, U Benzodiazepines Scrn NEGATIVE, Urine Cocaine Screen NEGATIVE, U Cannabinoids Screen POSITIVE H, Ur Drug Screen Comment 07/16/20 21:17: COVID-19 (ARIELA) Not Detected 07/17/20 02:52: POC Glucose 96 07/17/20 05:00: PT 13.3, INR 1.1, APTT 27.8 Diagnostic Data Head/Neck CTA 07/17/20 02:44 IMPRESSION: Normal CTA Head and neck with contrast. Electronically Signed: Madhu England, at 4:20 EDT Tel , Service support , Soft Tissue Neck CT 07/17/20 02:44 IMPRESSION: No acute osseous or soft tissue injury detected. Degenerative changes chronic sinus inflammation are stable findings. Mild fat stranding along the sternocleidomastoid muscle bilaterally. Electronically Signed: Lilliam Pringle MD at 3:51 EDT , Service support , Brain CT 07/17/20 02:46 IMPRESSION: There is no acute intracranial pathology. There is no significant interval change. N.B. : The above information has been verbally conveyed by Lilliam Pringle MD to Yu Wayne RN, on 07/17/2020 03:26:46 (ET). Electronically Signed: Lilliam Pringle MD at 3:28 EDT , Service support , ADDENDUM: 07/17/20 0335 IMPRESSION: There is no acute intracranial pathology. There is no significant interval change. N.B. : The above information has been verbally conveyed by Lilliam Pringle MD to Yu Wayne RN, on 07/17/2020 03:26:46 (ET). Electronically Signed: Lilliam Pringle MD at 3:28 EDT , Service support , Current Medications Acetaminophen (Tylenol) 650 mg PO Q6H PRN PRN PRN Reason: Temp > 99.6 F Diphenhydramine HCl (Benadryl) 50 mg IV X1 PRN PRN Reason: Allergic Reaction Sodium Chloride () 250 mls @ 15 mls/hr IV .[id number] PRN PRN Reason: Saline Flush Sodium Chloride () 250 mls @ 15 mls/hr IV .[id number] PRN PRN Reason: Additional IVPB Infusion Famotidine 20 mg/ Sodium (Chloride) 10 mls @ 300 mls/hr IV X1 PRN PRN Reason: Allergic Reaction Nicardipine/Dextrose (Cardene-Dex 20 Mg/200 Ml Soln) 20 mg in 200 mls @ 50 mls/hr IV .Q4H PRN; Protocol PRN Reason: See Instructions Lactated Ringer's () 1,000 mls @ 75 mls/hr IV .[id number] IRVING Last Admin: 07/17/20 10:07 Dose: 75 mls/hr Documented by: Ondansetron HCl (Zofran) 4 mg IV Q8H PRN PRN PRN Reason: NAUSEA/VOMITING Sodium Chloride () 10 - 40 ml IV UD PRN PRN Reason: SALINE FLUSH STROKE Vital Signs/Narrative: Vital Signs Temp Pulse Resp BP Pulse Ox 07/17/20 10:00 97.4 F L 55 L 12 148/73 H 97 07/17/20 09:30 97.9 F 61 18 146/78 H 96 07/17/20 09:00 76 22 H 146/78 H 96 07/17/20 08:30 78 14 128/67 H 97 07/17/20 08:00 68 12 132/68 H 97 07/17/20 07:30 68 10 L 132/77 H 97 07/17/20 07:00 65 16 131/70 H 97 Medical Necessity - Tobacco Use Smoking Status: Current every day smoker Tobacco Use: Cigarettes Assessment/Plan All Active Problems (Last Reviewed 07/17/20 @ 07:[address] Amador Delgado MD) Conversion disorder (Acute) # Conversion disorder * patient's apparent weakness fits no clear pattern. When patient asked to move eyes to the right, patient says she could not move eyes to the right or left but eyes were spontaneously moving. When asked to follow directions with workman finger, patient said that she moved 4 feet away before should be able to see my finger. Although patient says she had no movement in all extremities, she was noted to have some mild spontaneous movement of all extremities while she was laying quietly. * All brain imaging done was negative. She did receive TPA in the ED. * To have MRI of the brain 24 hours after getting TPA. Hold off on any aspirin no anticoagulation or antiplatelets. * I am doubtful patient has had a stroke, but will wait for MRI for definite conclusion * consult neurology * # hypertensive emergency: * resolved. BP is now down to 134/63. * IV hydralazine prn. * resume her home losartan, nifedipine and spironolactone as well as hydralazine. * # Suicidal ideation: will need mental health evaluation once she is medically cleared. has a sitter present #Depression and schizophrenia: stable. on risperdal Polysubstance abuse. Urine tox was positive for opiates, amphetamines and cannabinoids. Counseled to quit. Will need follow-up with rehab. DVT prophylaxis:SCDs. no anticoagulation as she received tPA OBSV E&M: [id number] Subsequent observation care L3
--- NOTE | 2020-07-17 10:40 | CM.ED ---
SOCIAL WORK Reviewed patient's case with nursing and reviewed chart. Call to [facility], spoke with Paty and updated on patient's status. Paty to keep referral and bed for patient. Paty states once medically cleared will need updated information. Added green sheet to chart and updated nursing staff. Plan: [facility] once medically cleared. Evelia Limon MSW, SURGICAL SUPPLY ASSISTANT
[2020-07-17] MEDS: Losartan Potassium 100 MG Tablet PO (18:12)
[2020-07-17] MEDS: NIFEdipine 60 MG Tablet PO (18:12)
--- NOTE | 2020-07-17 20:58 | NURSING ---
when asking pt if she is having suicidal thoughts, pt states, I am not suicidal, I wasn't last night either I was just trying to cut my voice box to make sure I don't talk again since no one listens to me. Pt then stated I can't eat or drink and I can't take care of myself, but no one is listening to me. Educated on safety precautions and sitter, PT/OT/ST and emotional support provided, will continue to monitor.
[2020-07-17] MEDS: hydrALAZINE 50 MG Tablet 75 MG PO (21:24)
[2020-07-17] MEDS: hydrOXYzine 10 MG Tablet PO (23:57)
[2020-07-18] VITALS (19 sets, daily range): BP systolic 108–143; BP diastolic 53–94; PULSE 54–81; RESP 15–25; TEMP 36.5–36.8; O2SAT 95–100
[2020-07-18] MEDS: Lactated Ringers 1,000 ML 75 ML IV ×2 (03:38→16:45)
[2020-07-18] MEDS: Ondansetron 4 MG/2 ML Vial IV (03:38)
[2020-07-18] MEDS: 0.9% Saline Lock 10 ML Syringe IV (03:38)
[2020-07-18 03:50] LABS: Absolute Lymphocyte Count 1.36 X10^3/uL (0.83-4.51); Basophil# 0.02 X10^3/uL; Basophil% 0.3 % (0-1); Eosinophil# 0.29 X10^3/uL; Eosinophils% 4.6 % (0-5); Hematocrit 37.2 % (37-47); Hemoglobin 12.6 g/dL (12.0-15.0); Lymphocyte # 1.36 X10^3/ul (4.0); Lymphocyte % 21.8 % (19-41); Mean Corp Hgb Conc 33.9 g/dL (32-36); Mean Corpuscular Hgb 29.6 pg (27.0-32.0); Mean Corpuscular Volume 87.3 fL (81-99); Mean Platelet Vol. 9.6 fl (6.2-12.0); Monocyte# 0.54 X10^3/uL; Monocyte% 8.6 % (0-10); NRBC Flagged by Analyzer 0 % (0-5); Neutrophil # 4.02 X10^3/uL (2.7-7.7); Neutrophil % 64.4 % (47-70); Platelet Count 248 K/mm3 (150-450); RBC Distribution Width CV 13.2 % (11.6-14.6); RBC Distribution Width SD 41.7 fl (35.1-43.9); Red Blood Count 4.26 M/mm3 (4.2-5.4); White Blood Count 6.3 K/mm3 (4.4-11.0)
--- NOTE | 2020-07-18 04:00 | CT_ITS ---
STUDY: CT BRAIN WITHOUT CONTRAST REASON FOR EXAM: Female, 55 years old. 24HR POST TPA RADIATION DOSAGE (If Supplied By Facility): CTDIvol = ( 44.99 ) mGy, DLP = ( 796.11 ) mGycm TECHNIQUE: Transaxial CT imaging of the brain was performed without administration of intravenous contrast material. Individualized dose optimization techniques were used for this CT. COMPARISON: No relevant priors. FINDINGS: Normal soft tissue structures. Normal calvarium. Normal size ventricles and extra-axial spaces for the patient''s age. Normal white matter tracts of the cerebral hemispheres. Normal basal ganglia and thalami. Normal brainstem. Normal cerebellum. There is no intracranial hemorrhage. There are no findings of an acute ischemic infarction. Normal visualized paranasal sinuses. CT/Brain/Head without Contrast IMPRESSION: Normal unenhanced CT scan of the brain. Electronically Signed: Madhu England, at 5:34 EDT Tel , Service support ,
[2020-07-18 04:17] LABS: Anion Gap 5 (5-15); BUN 7 mg/dL (7-18); BUN/Creat Ratio 7.8 RATIO (10-20); Calcium,Total 8.6 mg/dL (8.5-10.1); Chloride 109 mmol/L (98-107); Creatinine, Serum 0.89 mg/dL (0.55-1.02); EST Glomerular Filtration Rate 69 mL/min (>60); Est Glom Filt Rate - Afr Amer 84 mL/min (>60); Estimated Creatinine Clearance 63.51 ml/min; Glucose 81 mg/dL (74-106); Potassium 3.4 mmol/L (3.5-5.1); Sodium Level 140 mmol/L (136-145)
--- NOTE | 2020-07-18 05:00 | MRI_ITS ---
STUDY: MRI BRAIN WITHOUT CONTRAST REASON FOR EXAM: Female, 55 years old. post tpa, pt unable to move extremities, confusion TECHNIQUE: Standardized multiplanar fat and water weighted pulse sequences were obtained. COMPARISON: None. FINDINGS: Normal size of the ventricles and extra-axial spaces for the patient''s age. Scattered punctate hyperintensities of the periventricular and subcortical white matter may represent microangiopathic gliosis from chronic hypertension metabolic disease but other possibilities include hypercoagulable state, vasculitis, migraine headaches, demyelinating disease (multiple sclerosis), or Lyme disease. There is no evidence for recent intracranial ischemia or other cause of cytotoxic edema on diffusion weighted imaging (DWI). Normal T2* images of the brain without demonstrated susceptibility artifact. There is no demonstrated hemosiderin stain. Normal bilateral basal ganglia. Normal thalami. There is no extra-axial fluid accumulation. Normal flow voids within the major intracranial circulation suggesting patency by spin echo criteria. Normal sella turcica, pituitary gland, infundibular stalk, optic chiasm and hypothalamus. Normal tectal plate and pineal gland. Normal midbrain, molina and medulla. Normal cerebellum. Normal basal cisterns. Normal bilateral temporal bones. Normal bilateral internal auditory canals. No demonstrated orbital abnormality, within the constraints of a routine brain study. Normal visualized paranasal sinuses. Normal calvarium and skull base. Normal visualized soft tissue structures. Normal visualized upper cervical spine. MRI/Brain without Contrast IMPRESSION: Scattered hyperintensities in the periventricular and subcortical white matter may represent microangiopathic gliosis from chronic hypertension or metabolic disease but other possibilities include hypercoagulable state, vasculitis, migraine headaches, demyelinating disease (multiple sclerosis), or Lyme disease. No acute infarct. Electronically Signed: Ilan Naqvi MD at 10:39 EDT Tel , Service support ,
[2020-07-18] MEDS: hydrALAZINE 50 MG Tablet 75 MG PO (05:13)
--- NOTE | 2020-07-18 07:16 | TELEMED_ITS ---
SOC Telemed has confirmed receipt of a request for visit. This document confirms receipt of the order initiating the consult. To find the results of the consultation, please view the patient's reports for the scanned Telemed Consult.
--- NOTE | 2020-07-18 07:18 | PCM.PN.INT ---
Subjective: Patient did well overnight. No bleeding complications were reported. Patient has had a highly variable NIH testing. Patient ranges from 7-10 depending on participation. Patient is denying any pain at this time. Patient has been hemodynamically stable on room air. CT scan done at 24-hour shows no acute bleed. General: Alert, Oriented x3, Cooperative, No apparent distress, - - Pressured speech appears to be improved HEENT: Atraumatic, PERRLA, EOMI, Normocephalic, - - No scleral icterus or injection noted Oral: Moist Mucosa, No Gingival or Mucosal Lesions/ Ulcerations Neck: Supple, No JVD, No Nodes, Trachea Midline Lungs: Clear to auscultation, Normal air movement, No rhonchi, No wheeze, No rales Cardiovascular: Normal S1, Normal S2, No murmurs, Bradycardic, No rub noted, No Gallop Abdomen: Bowel Sounds Present, Soft, Non Tender, Non-Distended, Obese Extremities: No clubbing, No cyanosis, No edema Skin: - - No change from previous Musculoskeletal: No Tenderness to Palpation of Joints or Extremities Lymphatic: No Cervical, Supraclavicular, or Inguinal Adenopathy Neurological: - - Patient still with some weakness of the legs, but it is unclear if this is secondary to participation. No aphasia appreciated. Psych/Mental Status: Flat Affect Vital Signs Temp Pulse Resp BP Pulse Ox 36.5 C L 56 L 16 123/63 H 98 07/18/20 03:30 07/18/20 05:30 07/18/20 05:30 07/18/20 05:30 07/18/20 05:30 Oxygen Delivery Method Room Air Weight: 90.991 kg Body Mass Index (BMI) 33.2 Finger Stick Blood Glucose 96 Intake and Output for Last 24 Hours 07/16/20 07/17/20 07/18/20 23:59 23:59 23:59 Intake Total 816.97 / 856.97 1060 / 1060 Output Total 1725 / 1900 550 / 550 Balance -908.03 / -1043.03 510 / 510 Labs (Last 48 Hours) 07/16/20 07/16/20 07/16/20 13:43 13:43 13:43 WBC Cancelled Corrected WBC Cancelled RBC Cancelled Hgb Cancelled Hct Cancelled MCV Cancelled MCH Cancelled MCHC Cancelled RDW Std Deviation Cancelled RDW Coeff of Yonathan Cancelled Plt Count Cancelled MPV Cancelled Immature Gran % (Auto) Cancelled Neut % (Auto) Cancelled Lymph % (Auto) Cancelled [place] % (Auto) Cancelled Eos % (Auto) Cancelled Baso % (Auto) Cancelled Absolute Neuts (auto) Cancelled Absolute Lymphs (auto) Cancelled Total Counted Cancelled Neutrophils % (Manual) Cancelled Band Neutrophils % Cancelled Lymphocytes % (Manual) Cancelled Monocytes % (Manual) Cancelled Eosinophils % (Manual) Cancelled Basophils % (Manual) Cancelled Metamyelocytes % Cancelled Myelocytes % Cancelled Promyelocytes % Cancelled Blast Cells % Cancelled Plasma Cell % (Manual) Cancelled Other Cells % Cancelled Nucleated RBC % Cancelled Nucleated RBCs/100 WBC Cancelled Differential Comment Cancelled Diff Path Review Cancelled Hypersegmented Neuts Cancelled Atypical Lymphocytes Cancelled Reactive Lymphocytes Cancelled Smudge Cells Cancelled Toxic Granulation Cancelled Toxic Vacuolation Cancelled Dohle Bodies Cancelled Darcie Rods Cancelled Platelet Estimate Cancelled Plt Morphology Comment Cancelled RBC Morphology Cancelled Polychromasia Cancelled Hypochromasia Cancelled Poikilocytosis Cancelled Basophilic Stippling Cancelled Anisocytosis Cancelled Microcytosis Cancelled Macrocytosis Cancelled Spherocytes Cancelled Sickle Cells Cancelled Target Cells Cancelled Tear Drop Cells Cancelled Ovalocytes Cancelled Stomatocytes Cancelled [place] Bodies Cancelled Darren Cells Cancelled Bite Cells Cancelled Crenated Cell Cancelled Acanthocytes (Spur) Cancelled Rouleaux Cancelled Schistocytes Cancelled PT INR APTT Sodium 141 Potassium 4.0 Chloride 112 H Carbon Dioxide 25.0 Anion Gap 4 L BUN 10 Creatinine 1.11 H Estim Creat Clear Calc 50.92 Est GFR (MDRD) Af Amer 65 Est GFR (MDRD) Non-Af 54 L BUN/Creatinine Ratio 9.0 L Glucose 91 Calcium 9.5 Total Creatine Kinase Urine Opiates Screen Urine Methadone Screen Ur Barbiturates Screen Ur Phencyclidine Scrn Ur Amphetamines Screen U Methamphetamin-MDMA U Benzodiazepines Scrn Urine Cocaine Screen U Cannabinoids Screen Ur Drug Screen Comment Ethyl Alcohol < 3.0 COVID-19 (ARIELA) POC Glucose 07/16/20 07/16/20 07/16/20 13:43 15:05 19:13 WBC 6.1 Corrected WBC RBC 4.90 Hgb 14.5 Hct 42.2 MCV 86.1 MCH 29.6 MCHC 34.4 RDW Std Deviation 40.5 RDW Coeff of Yonathan 13.0 Plt Count 297 MPV 9.8 Immature Gran % (Auto) 0.300 Neut % (Auto) 62.9 Lymph % (Auto) 24.3 [place] % (Auto) 8.2 Eos % (Auto) 4.0 Baso % (Auto) 0.3 Absolute Neuts (auto) 3.8 Absolute Lymphs (auto) 1.46 Total Counted Neutrophils % (Manual) Band Neutrophils % Lymphocytes % (Manual) Monocytes % (Manual) Eosinophils % (Manual) Basophils % (Manual) Metamyelocytes % Myelocytes % Promyelocytes % Blast Cells % Plasma Cell % (Manual) Other Cells % Nucleated RBC % 0 Nucleated RBCs/100 WBC Differential Comment Diff Path Review Hypersegmented Neuts Atypical Lymphocytes Reactive Lymphocytes Smudge Cells Toxic Granulation Toxic Vacuolation Dohle Bodies Darcie Rods Platelet Estimate Plt Morphology Comment RBC Morphology Polychromasia Hypochromasia Poikilocytosis Basophilic Stippling Anisocytosis Microcytosis Macrocytosis Spherocytes Sickle Cells Target Cells Tear Drop Cells Ovalocytes Stomatocytes [place] Bodies Darren Cells Bite Cells Crenated Cell Acanthocytes (Spur) Rouleaux Schistocytes PT INR APTT Sodium Potassium Chloride Carbon Dioxide Anion Gap BUN Creatinine Estim Creat Clear Calc Est GFR (MDRD) Af Amer Est GFR (MDRD) Non-Af BUN/Creatinine Ratio Glucose Calcium Total Creatine Kinase 101 Urine Opiates Screen POSITIVE H Urine Methadone Screen NEGATIVE Ur Barbiturates Screen NEGATIVE Ur Phencyclidine Scrn NEGATIVE Ur Amphetamines Screen POSITIVE H U Methamphetamin-MDMA NEGATIVE U Benzodiazepines Scrn NEGATIVE Urine Cocaine Screen NEGATIVE U Cannabinoids Screen POSITIVE H Ur Drug Screen Comment Ethyl Alcohol COVID-19 (ARIELA) POC Glucose 07/16/20 07/17/20 07/17/20 21:17 02:52 05:00 WBC Corrected WBC RBC Hgb Hct MCV MCH MCHC RDW Std Deviation RDW Coeff of Yonathan Plt Count MPV Immature Gran % (Auto) Neut % (Auto) Lymph % (Auto) [place] % (Auto) Eos % (Auto) Baso % (Auto) Absolute Neuts (auto) Absolute Lymphs (auto) Total Counted Neutrophils % (Manual) Band Neutrophils % Lymphocytes % (Manual) Monocytes % (Manual) Eosinophils % (Manual) Basophils % (Manual) Metamyelocytes % Myelocytes % Promyelocytes % Blast Cells % Plasma Cell % (Manual) Other Cells % Nucleated RBC % Nucleated RBCs/100 WBC Differential Comment Diff Path Review Hypersegmented Neuts Atypical Lymphocytes Reactive Lymphocytes Smudge Cells Toxic Granulation Toxic Vacuolation Dohle Bodies Darcie Rods Platelet Estimate Plt Morphology Comment RBC Morphology Polychromasia Hypochromasia Poikilocytosis Basophilic Stippling Anisocytosis Microcytosis Macrocytosis Spherocytes Sickle Cells Target Cells Tear Drop Cells Ovalocytes Stomatocytes [place] Bodies [place] Cells Bite Cells Crenated Cell Acanthocytes (Spur) Rouleaux Schistocytes PT 13.3 INR 1.1 APTT 27.8 Sodium Potassium Chloride Carbon Dioxide Anion Gap BUN Creatinine Estim Creat Clear Calc Est GFR (MDRD) Af Amer Est GFR (MDRD) Non-Af BUN/Creatinine Ratio Glucose Calcium Total Creatine Kinase Urine Opiates Screen Urine Methadone Screen Ur Barbiturates Screen Ur Phencyclidine Scrn Ur Amphetamines Screen U Methamphetamin-MDMA U Benzodiazepines Scrn Urine Cocaine Screen U Cannabinoids Screen Ur Drug Screen Comment Ethyl Alcohol COVID-19 (ARIELA) Not Detected POC Glucose 96 07/18/20 07/18/20 03:33 03:33 WBC 6.3 Corrected WBC RBC 4.26 Hgb 12.6 Hct 37.2 MCV 87.3 MCH 29.6 MCHC 33.9 RDW Std Deviation 41.7 RDW Coeff of Yonathan 13.2 Plt Count 248 MPV 9.6 Immature Gran % (Auto) 0.300 Neut % (Auto) 64.4 Lymph % (Auto) 21.8 [place] % (Auto) 8.6 Eos % (Auto) 4.6 Baso % (Auto) 0.3 Absolute Neuts (auto) 4.0 Absolute Lymphs (auto) 1.36 Total Counted Neutrophils % (Manual) Band Neutrophils % Lymphocytes % (Manual) Monocytes % (Manual) Eosinophils % (Manual) Basophils % (Manual) Metamyelocytes % Myelocytes % Promyelocytes % Blast Cells % Plasma Cell % (Manual) Other Cells % Nucleated RBC % 0 Nucleated RBCs/100 WBC Differential Comment Diff Path Review Hypersegmented Neuts Atypical Lymphocytes Reactive Lymphocytes Smudge Cells Toxic Granulation Toxic Vacuolation Dohle Bodies Darcie Rods Platelet Estimate Plt Morphology Comment RBC Morphology Polychromasia Hypochromasia Poikilocytosis Basophilic Stippling Anisocytosis Microcytosis Macrocytosis Spherocytes Sickle Cells Target Cells Tear Drop Cells Ovalocytes Stomatocytes [place] Bodies Darren Cells Bite Cells Crenated Cell Acanthocytes (Spur) Rouleaux Schistocytes PT INR APTT Sodium 140 Potassium 3.4 L Chloride 109 H Carbon Dioxide 26.0 Anion Gap 5 BUN 7 Creatinine 0.89 Estim Creat Clear Calc 63.51 Est GFR (MDRD) Af Amer 84 Est GFR (MDRD) Non-Af 69 BUN/Creatinine Ratio 7.8 L Glucose 81 Calcium 8.6 Total Creatine Kinase Urine Opiates Screen Urine Methadone Screen Ur Barbiturates Screen Ur Phencyclidine Scrn Ur Amphetamines Screen U Methamphetamin-MDMA U Benzodiazepines Scrn Urine Cocaine Screen U Cannabinoids Screen Ur Drug Screen Comment Ethyl Alcohol COVID-19 (ARIELA) POC Glucose Clinical Impression(s) from Imaging Studies Brain CT 07/18/20 04:00 IMPRESSION: Normal unenhanced CT scan of the brain. Electronically Signed: Madhu England, at 5:34 EDT Tel , Service support , Medical Necessity - Tobacco Use Smoking Status: Current every day smoker Tobacco Use: Cigarettes Assessment/Plan All Active Problems (Last Reviewed 07/17/20 @ 07:[address] Amador Delgado MD) Conversion disorder (Acute) RECOMMENDATIONS: 1. Await MRI 2. Patient with cookie swallow scheduled on Sunday 3. Bedside sitter to prevent fall risk 4. Will need crisis evaluation 5. Hemodynamically stable on room air. Will sign off from a critical care perspective 6. Okay to transfer from the intensive care unit IMPRESSIONS: 1. Status post TPA with possible conversion disorder versus malingering Patient with new onset symptoms when transport arrived to transport to a psych facility. Original presentation does not appear to match with any typical neurologic stroke patterns. Patient was monitored for 24 hours for bleeding complications. Patient is having recovery of reported symptoms. Patient will need an MRI for confirmation of insult given marginal participation. Low clinical suspicion for acute stroke. PT/OT can evaluate the patient. Will follow stroke protocol for the 24 hours. Patient should have PRN medications if necessary to avoid complications of TPA. 2. Suicide attempt/schizophrenia/depression Patient recently cleared by crisis. However, patient did take netting and attempted to make a ligature. This does not appear to have any physiologic repercussions, but does not diminish from the intention. Patient will need to be seen by crisis prior to discharge. Unclear if current symptomatology secondary to noncompliance with medications. Would recommend Haldol if necessary for agitation. 3. Drug abuse Patient's urine is tested positive for opiates, amphetamines and cannabinoids. Will monitor for signs and symptoms of withdrawal. Hold on any medications for now. Inpatient E&M: 70542 Subs Hosp L2
--- NOTE | 2020-07-18 10:37 | PN_ITS ---
Patient Problems: Active and Suspected Problems (Last Reviewed 07/17/20 @ 07:[address] Amador Delgado MD) Conversion disorder (Acute) Subjective: Patient seen and examined. There were no active events overnight. Patient again told me today that she could not really talk well. However upon asking her questions, she denied any fever, chills, shortness of breath, chest pain, nausea vomiting. Patient says she could not see me with the lights on and wanted the lights to be off before she could see me. She now says she is able to move her upper extremities but not her lower extremities though spontaneous movement of the lower extremities was noticed during review. She has remained hemodynamically stable. Potassium today is 3.4. Vitals/I&O's: Vital Signs Temp Pulse Resp BP Pulse Ox 97.9 F 55 L 18 108/57 L 96 07/18/20 09:00 07/18/20 09:00 07/18/20 09:00 07/18/20 09:00 07/18/20 09:00 Oxygen Delivery Method Room Air Weight: 200 lb 9.6 oz Body Mass Index (BMI) 33.2 Finger Stick Blood Glucose 96 Intake and Output for Last 24 Hours 07/16/20 07/17/20 07/18/20 23:59 23:59 23:59 Intake Total 816.97 / 856.97 1080 / 1080 Output Total 1725 / 1900 725 / 725 Balance -908.03 / -1043.03 355 / 355 General: Alert, Oriented x3, Cooperative, Lethargic HEENT: Atraumatic, PERRLA, EOMI, Normocephalic Oral: Dry Mucosa Neck: Supple, No JVD, Negative Carotid Bruits Lungs: Clear to auscultation, Normal air movement, No rhonchi, No wheeze, No rales Cardiovascular: Regular rate, Normal S1, Normal S2, No murmurs, Bradycardic Abdomen: Bowel Sounds Present, Soft, Non Tender, Non-Distended, No Hepato- splenomegaly Extremities: No clubbing, No cyanosis, No edema, Capillary Refill Less than 3 Seconds Skin: No rashes, No breakdown Musculoskeletal: No Tenderness to Palpation of Joints or Extremities Lymphatic: No Cervical, Supraclavicular, or Inguinal Adenopathy Neurological: Cranial nerves II-XII grossly intact, - -patient has 4/5 power in extra upper extremities. Patient says she could not move lower extremities but she was able to straighten out her legs on her own from a flexed position. Psych/Mental Status: Flat Affect Laboratory Results 07/18/20 03:33: WBC 6.3, RBC 4.26, Hgb 12.6, Hct 37.2, MCV 87.3, MCH 29.6, MCHC 33.9, RDW Std Deviation 41.7, RDW Coeff of Yonathan 13.2, Plt Count 248, MPV 9.6, Immature Gran % (Auto) 0.300, Neut % (Auto) 64.4, Lymph % (Auto) 21.8, [place] % (Auto) 8.6, Eos % (Auto) 4.6, Baso % (Auto) 0.3, Absolute Neuts (auto) 4.0, Absolute Lymphs (auto) 1.36, Nucleated RBC % 0 07/18/20 03:33: Sodium 140, Potassium 3.4 L, Chloride 109 H, Carbon Dioxide 26.0, Anion Gap 5, BUN 7, Creatinine 0.89, Estim Creat Clear Calc 63.51, Est GFR (MDRD) Af Amer 84, Est GFR (MDRD) Non-Af 69, BUN/Creatinine Ratio 7.8 L, Glucose 81, Calcium 8.6 Current Medications Acetaminophen (Tylenol) 650 mg PO Q6H PRN PRN PRN Reason: Temp > 99.6 F Diphenhydramine HCl (Benadryl) 50 mg IV X1 PRN PRN Reason: Allergic Reaction Hydralazine HCl (Apresoline) 75 mg PO TID [facility] Last Admin: 07/18/20 05:13 Dose: 75 mg Documented by: Hydroxyzine HCl (Atarax Tablet) 10 mg PO 4X/DAY PRN PRN PRN Reason: ANXIETY Last Admin: 07/17/20 23:57 Dose: 10 mg Documented by: Sodium Chloride () 250 mls @ 15 mls/hr IV .[id number] PRN PRN Reason: Saline Flush Sodium Chloride () 250 mls @ 15 mls/hr IV .[id number] PRN PRN Reason: Additional IVPB Infusion Famotidine 20 mg/ Sodium (Chloride) 10 mls @ 300 mls/hr IV X1 PRN PRN Reason: Allergic Reaction Nicardipine/Dextrose (Cardene-Dex 20 Mg/200 Ml Soln) 20 mg in 200 mls @ 50 mls/hr IV .Q4H PRN; Protocol PRN Reason: See Instructions Lactated Ringer's () 1,000 mls @ 75 mls/hr IV .[id number] [facility] Last Admin: 07/18/20 03:38 Dose: 75 mls/hr Documented by: Losartan Potassium (Cozaar) 100 mg PO DAILY [facility] Last Admin: 07/17/20 18:12 Dose: 100 mg Documented by: Nifedipine (Procardia Xl) 60 mg PO DAILY [facility] Last Admin: 07/17/20 18:12 Dose: 60 mg Documented by: Ondansetron HCl (Zofran) 4 mg IV Q8H PRN PRN PRN Reason: NAUSEA/VOMITING Last Admin: 07/18/20 03:38 Dose: 4 mg Documented by: Sodium Chloride () 10 - 40 ml IV UD PRN PRN Reason: SALINE FLUSH Last Admin: 07/18/20 03:38 Dose: 20 ml Documented by: STROKE Vital Signs/Narrative: Vital Signs Temp Pulse Resp BP Pulse Ox 07/18/20 09:00 97.9 F 55 L 18 108/57 L 96 07/18/20 07:00 57 L 16 122/55 H 96 07/18/20 06:38 71 Medical Necessity - Tobacco Use Smoking Status: Current every day smoker Tobacco Use: Cigarettes Assessment/Plan All Active Problems (Last Reviewed 07/17/20 @ 07:[address] Amador Delgado MD) Conversion disorder (Acute) # Conversion disorder * Patient now says she has weakness in her lower extremities though she is able to move her leg spontaneously. * CT of the brain done after 24 hours after TPA was negative. MRI of the brain pending. * Neurology consulted for neurology evaluation today. * To have a cookie swallow tomorrow. Speech therapy as patient said her medication got stuck in her throat and she could not get it to go down. * PT OT consults. Fall precautions. * * * # hypertensive emergency: * resolved. BP is now down to 134/63. * IV hydralazine prn. * on home losartan, nifedipine and spironolactone as well as hydralazine. * # Dysphagia: patient now complains of pills getting stuck in her throat. Speech therapy on board. for cookie swallow tomorrow # Suicidal ideation: will need mental health evaluation once she is medically cleared. has a sitter present #Depression and schizophrenia: stable. on risperdal Polysubstance abuse. Urine tox was positive for opiates, amphetamines and cannabinoids. Counseled to quit. Will need follow-up with rehab. DVT prophylaxis:SCDs. no anticoagulation as she received tPA Inpatient E&M: [id number] [facility] Hosp L3
[2020-07-18] MEDS: Sodium Chloride 0.65% 1 SPRAY SPRAY.BTL NASAL (22:29)
[2020-07-19] VITALS (14 sets, daily range): BP systolic 140–179; BP diastolic 61–84; PULSE 59–93; RESP 16–20; TEMP 36.4–36.8; O2SAT 93–98
[2020-07-19 06:11] LABS: Absolute Lymphocyte Count 1.22 X10^3/uL (0.83-4.51); Absolute Neutrophil Count 4.3 X10^3/uL (2.0-7.7); Basophil# 0.01 X10^3/uL; Basophil% 0.2 % (0-1); Eosinophils% 3.2 % (0-5); Hematocrit 39.2 % (37-47); Hemoglobin 12.8 g/dL (12.0-15.0); Lymphocyte # 1.22 X10^3/ul (4.0); Lymphocyte % 19.6 % (19-41); Mean Corp Hgb Conc 32.7 g/dL (32-36); Mean Corpuscular Hgb 29.4 pg (27.0-32.0); Mean Corpuscular Volume 90.1 fL (81-99); Monocyte# 0.49 X10^3/uL; Monocyte% 7.9 % (0-10); NRBC Flagged by Analyzer 0 % (0-5); Neutrophil # 4.28 X10^3/uL (2.7-7.7); Neutrophil % 68.5 % (47-70); Platelet Count 256 K/mm3 (150-450); RBC Distribution Width CV 13.2 % (11.6-14.6); RBC Distribution Width SD 43.3 fl (35.1-43.9); Red Blood Count 4.35 M/mm3 (4.2-5.4); White Blood Count 6.2 K/mm3 (4.4-11.0)
[2020-07-19] MEDS: Lactated Ringers 1,000 ML 75 ML IV (06:35)
[2020-07-19 06:45] LABS: Anion Gap 9 (5-15); BUN 14 mg/dL (7-18); Calcium,Total 8.8 mg/dL (8.5-10.1); Chloride 108 mmol/L (98-107); Creatinine, Serum 0.94 mg/dL (0.55-1.02); EST Glomerular Filtration Rate 66 mL/min (>60); Est Glom Filt Rate - Afr Amer 80 mL/min (>60); Estimated Creatinine Clearance 60.13 ml/min; Glucose 50 mg/dL (74-106); Potassium 4.1 mmol/L (3.5-5.1); Sodium Level 139 mmol/L (136-145)
--- NOTE | 2020-07-19 10:31 | CASEMGMT ---
SOCIAL WORK Call to [facility] to discuss referral, spoke with Donal. Per Donal, will need to fax over new referral packet. Donal reports does have open beds. Patient to have modified barium swallow test. Awaiting medical clearance at this time. Evelia Limon, SPRING FITTER HELPER, INSTRUCTOR PRODUCT INSPECTION
--- NOTE | 2020-07-19 10:45 | CASEMGMT ---
SOCIAL WORK Met with patient in room. Introduced role and reason for visit. Patient stating not doing well. Talking about things makes me stress more. Patient states the police let people steal my things. I don't trust anyone. It makes me want to hurt people that I can't trust. When asked if patient has any suicidal ideation, patient reported I see myself doing things and I can't stop it. I have no rational thoughts. Collaboration with medical team. Plan remains for inpatient psychiatric hospitalization. This worker to facilitate placement once patient is medically cleared. Evelia Limon, MANAGER TRANSIT, WAIT STAFF
[2020-07-19] MEDS: 0.9% Saline Lock 10 ML Syringe IV (13:19)
[2020-07-19] MEDS: hydrALAZINE 50 MG Tablet 75 MG PO (13:23)
[2020-07-19] MEDS: Losartan Potassium 100 MG Tablet PO (13:23)
--- NOTE | 2020-07-19 13:45 | ST.MBS ---
Modified Barium Swallow - Patient Information Study Date: 07/19/20 Study Time: 11:35 Direct Billable Minutes: 130 Total Minutes procedure & reportin Diagnosis: dysphagia Referring Physician: Jessica Barron Reason for Referral: Objective assessment of swallow function under fluoroscopy recommended prior to diet advancement to determine extent and severity of dysphagia present and to determine need for/focus of continued dysphagia therapy. Pt c/o globus sensation w/ all textures and w/ own secretions, difficulty w/ oral to pharyngeal bolus transfer, pill dysphagia and coughing/choking w/ gagging and emesis w/ solid textures/pills. Previous MBS completed 01/21/2018 - mild oropharyngeal dysphagia (R13.12); regular textures/thin liquids w/ the following recommended compensatory swallowing strategies - small bites and sips, one sip at a time, remain upright for 30-60 minutes post meal (GERD precaution). Medical History: The patient is a 55 year old F with a significant history of CKD stage III; COPD; Asthma; gastritis; stroke; hypothyroidism; depression and schizophrenia now with mutism. 07/17/[address] results: There is no acute intracranial pathology. Current admission - Conversion disorder; plan for inpatient psych admission; hypertensive emergency; dysphagia; suicidal ideation; depression and schizophrenia; polysubstance abuse Current Diet Ordered: NPO Dentition: Natural Teeth, Decay, Missing Teeth Mental Status: Impaired Respiratory Status: Oxygenating on Room Air - Study Findings Consistencies: Thin Liquid, Pudding, Cookie, Barium Tablet - Penetration-Aspiration Scale Penetration-Aspiration Scale: OBJECTIVE ASSESSMENT OF SWALLOW FUNCTION (QUANTITATIVE ? PER TRIAL): PENETRATION / ASPIRATION SCALE (MYERS): 1 = does not enter airway 2 = enters airway/above vocal folds/ejected 3 = enters airway/above vocal folds/not ejected 4 = enters airway/contacts vocal folds/ejected 5 = enters airway/contacts vocal folds/not ejected 6 = enters airway/below vocal folds/ejected 7 = enters airway/below vocal folds/not ejected despite effort 8 = enters airway/below vocal folds/no effort - Penetration-Aspiration Scale Score Thin Liquid via teaspoon Result: 1= does not enter airway Thin Liquid via teaspoon Trial 2 Result: 1= does not enter airway Thin Liquid via small single sip from cup Result: 1= does not enter airway Thin Liquid via sequential sips from cup Result: 2= enter airway/above vocal folds/ejected Comment: large volume Thin Liquid via small single sip from cup Trial 2 Result: 1= does not enter airway Thin Liquid via single sip from straw Result: 1= does not enter airway Thin Liquid via single sip from straw Trial 2 Result: 1= does not enter airway Thin Liquid via sequential sips from straw Result: 1= does not enter airway Pudding Result: 1= does not enter airway Comment: /2 tsp Pudding Trial 2 Comment: whole tsp Thin Liquid via single sip from straw Trial 3 Result: 1= does not enter airway Barium Tablet Comment: Barium Tablet w/ water - unable to clear from oral cavity, spit out Barium Tablet via teaspoon Result: 1= does not enter airway Comment: Barium tablet presented via teaspoon coated w/ barium pudding - Oral Phase Labial Seal: No Labial Escape Tongue Control During Bolus Hold: Cohesive bolus between tongue to palatal seal Bolus Preparation/Mastication: Timely and efficient chewing and mashing Oral Residue: Trace residue lining oral structures - Pharyngeal Phase Initiation of Pharyngeal Swallow: Bolus head in valleculae Soft Palate Elevation: No bolus between soft palate and pharyngeal wall - Diagnosis/Impression Diagnosis: mild oropharyngeal dysphagia Impression: This patient presents w/ mild oropharyngeal dysphagia w/ very similar presentation to swallow function under fluoroscopy during prior MBS 01/21/2018. Swallow function suspected to be significantly impacted by anxiety. Oral phase marked by oral holding w/ piecemeal deglutiton and inability to clear barium tablet from the oral cavity w/ water, gagging/expectoration of barium tablet when coated in pudding. Pharyngeal phase grossly WNL w/ large volume sips spilling to the pyriforms prior to swallow onset w/ laryngeal vestibule penetration 1x. Fairly timely swallow onset w/ small sips w/ complete laryngeal vestibule closure and no aspiration identified. The patient was noted to wince/posture when swallowing w/ intermittent coughing post deglutition, indicating that she can feel it going down wrong/getting stuck, despite no evidence of penetration/aspiration or pharyngeal residue retention to warrant coughing and complaints reported. Mild cricopharyngeal prominence w/ abnormal bumpy appearance of PES/esophagus - would consider further assessment of pharyngoesophageal segment/upper esophagus. Esophageal scan revealed contrast retention w/in the esophagus. Recommend advancing to mechanically altered moist/minced textures and thin liquids, alternating small bites/small sips. Education provided re: globus sensation, automaticity of swallow and the role anxiety can play in swallow function and/or inability to swallow. Education well received. Images were reviewed w/ the patient to improve understanding of swallow function and that food/liquid were clearing to the esophagus w/out significant impairment in swallow function - will benefit from continued education re: anxiety, relaxation, and compensatory strategy use to improve oral to pharyngeal bolus transit and associated globus sensation. - Recommendations Diet: Mechanical Soft Textures, Thin Liquids Compensatory Strategies: Small Bites, Small Sips, Slow Rate, Alternate bites/solids and sips/liquids, Sitting upright, Remain sitting upright for 30 minutes after PO intake Supervision: Distant Supervision Recommend Repeat Modified Barium Swallow: No Need for Skilled Speech Therapy Services: Yes - see impression above for additional details Recommended Referrals: GI Consult - further assessment of pharyngoesophageal segment/upper esophagus - see impression, ENT Consult - further assessment of aphonia, functional/conversion? Education Completed: 1. Described result of evaluation., 2. Pt understands evaluation & agrees with goals and treatment plan., 7. Pt requires further education on strategies & risks. - Status Active ST Patient: Active - Contact Information [facility]:: Rachel Pepe M.A., [facility] [facility] [email or web address] [phone]
--- NOTE | 2020-07-19 14:06 | PN_ITS ---
<Hiren Warren - Last Filed: 07/19/20 14:06> Patient Problems: Active and Suspected Problems (Last Reviewed 07/17/20 @ 07:[address] Amador Delgado MD) Conversion disorder (Acute) Reason for Visit: SI, conversion disorder Subjective: I attempted to discuss the patients underlying mental health issues however she replied that she did not want to talk about that right now. She is otherwise doing well. She underwent a swallow study today as she had difficulty swallowing and her diet was modified per the speech therapists recommendations. She has some ongoing all over body weakness with no focal weakness and she is participating in therapy for this. She denies SOB, cough, chest pain, pressure, tightness, MACK, dizziness, abdominal pain, nausea/vomiting, diarrhea, fevers, chills. Vitals/I&O's: Vital Signs Temp Pulse Resp BP Pulse Ox 98.2 F 77 20 H 179/66 H 95 07/19/20 12:39 07/19/20 13:23 07/19/20 12:39 07/19/20 12:39 07/19/20 12:39 Oxygen Delivery Method Room Air Weight: 197 lb 12.074 oz Body Mass Index (BMI) 33.2 Finger Stick Blood Glucose 96 Intake and Output for Last 24 Hours 07/17/20 07/18/20 07/19/20 23:59 23:59 23:59 Intake Total 816.97 / 856.97 2054 / 2054 1331.25 / 1331.25 Output Total 1725 / 1900 2400 / 2400 Balance -908.03 / -1043.03 -345 / -345 1331.25 / 1331.25 General: Alert, Oriented x3, Cooperative HEENT: Atraumatic, PERRLA, EOMI, Normocephalic Neck: Supple, No JVD, Negative Carotid Bruits Lungs: Clear to auscultation, Normal air movement Cardiovascular: Regular rate, No murmurs Abdomen: Bowel Sounds Present, Soft, Non Tender, Obese Extremities: No edema, Capillary Refill Less than 3 Seconds Skin: No rashes, No breakdown Musculoskeletal: No Tenderness to Palpation of Joints or Extremities Neurological: Cranial nerves II-XII grossly intact Psych/Mental Status: Anxious, Alert and oriented to time, place, person, mood and affect Laboratory Results 07/19/20 05:51: WBC 6.2, RBC 4.35, Hgb 12.8, Hct 39.2, MCV 90.1, MCH 29.4, MCHC 32.7, RDW Std Deviation 43.3, RDW Coeff of Yonathan 13.2, Plt Count 256, MPV 10.0, Immature Gran % (Auto) 0.600, Neut % (Auto) 68.5, Lymph % (Auto) 19.6, Monona % (Auto) 7.9, Eos % (Auto) 3.2, Baso % (Auto) 0.2, Absolute Neuts (auto) 4.3, Absolute Lymphs (auto) 1.22, Nucleated RBC % 0 07/19/20 05:51: Sodium 139, Potassium 4.1, Chloride 108 H, Carbon Dioxide 22.0, Anion Gap 9, BUN 14, Creatinine 0.94, Estim Creat Clear Calc 60.13, Est GFR (MDRD) Af Amer 80, Est GFR (MDRD) Non-Af 66, BUN/Creatinine Ratio 15.0, Glucose 50 L, Calcium 8.8 Current Medications Acetaminophen (Tylenol) 650 mg PO Q6H PRN PRN PRN Reason: Temp > 99.6 F Diphenhydramine HCl (Benadryl) 50 mg IV X1 PRN PRN Reason: Allergic Reaction Hydralazine HCl (Apresoline) 75 mg PO TID IRVING Last Admin: 07/19/20 13:23 Dose: 75 mg Documented by: Hydroxyzine HCl (Atarax Tablet) 10 mg PO 4X/DAY PRN PRN PRN Reason: ANXIETY Last Admin: 07/17/20 23:57 Dose: 10 mg Documented by: Sodium Chloride () 250 mls @ 15 mls/hr IV .[id number] PRN PRN Reason: Saline Flush Sodium Chloride () 250 mls @ 15 mls/hr IV .[id number] PRN PRN Reason: Additional IVPB Infusion Famotidine 20 mg/ Sodium (Chloride) 10 mls @ 300 mls/hr IV X1 PRN PRN Reason: Allergic Reaction Nicardipine/Dextrose (Cardene-Dex 20 Mg/200 Ml Soln) 20 mg in 200 mls @ 50 mls/hr IV .Q4H PRN; Protocol PRN Reason: See Instructions Lactated Ringer's () 1,000 mls @ 75 mls/hr IV .[id number] [facility] Last Infusion: 07/19/20 13:26 Dose: 75 mls/hr Documented by: Losartan Potassium (Cozaar) 100 mg PO DAILY [facility] Last Admin: 07/19/20 13:23 Dose: 100 mg Documented by: Nifedipine (Procardia Xl) 60 mg PO DAILY [facility] Last Admin: 07/19/20 13:38 Dose: Not Given Documented by: Ondansetron HCl (Zofran) 4 mg IV Q8H PRN PRN PRN Reason: NAUSEA/VOMITING Last Admin: 07/18/20 03:38 Dose: 4 mg Documented by: Sodium Chloride () 10 - 40 ml IV UD PRN PRN Reason: SALINE FLUSH Last Admin: 07/19/20 13:19 Dose: 10 ml Documented by: Sodium Chloride ([place] Nasal [place]) 1 spray NASAL TID PRN PRN PRN Reason: NASAL DRYNESS Last Admin: 07/18/20 22:29 Dose: 1 spray Documented by: STROKE Vital Signs/Narrative: Vital Signs Temp Pulse Resp BP Pulse Ox 07/19/20 13:23 77 07/19/20 12:39 98.2 F 60 20 H 179/66 H 95 07/19/20 11:50 93 Medical Necessity - Tobacco Use Smoking Status: Current every day smoker Tobacco Use: Cigarettes Assessment/Plan All Active Problems (Last Reviewed 07/17/20 @ 07:[address] Amador Delgado MD) Conversion disorder (Acute) 1. Conversion disorder - s/p tpa. Neuro consulted - recommends psych workup. MRI without stroke. 2. Suicidal ideation - patient will need formal inpatient psychiatric evaluation at outside facility 3. HTN emergency - improved. pills must be crushed for diet - nicardipine cannot be crushed - held. PO hydralazine increased. 4. Dysphagia - continue speech therapy DC planning: The patient is medically stable and clear for discharge to a psychiatric facility. This patient was seen by Hiren Warren PA-C under the supervision of Dr. Barron. <Jessica Barron - Last Filed: 07/19/20 15:09> Vitals/I&O's: Vital Signs Temp Pulse Resp BP Pulse Ox 98.2 F 77 20 H 179/66 H 95 07/19/20 12:39 07/19/20 13:23 07/19/20 12:39 07/19/20 12:39 07/19/20 12:39 Oxygen Delivery Method Room Air Weight: 197 lb 12.074 oz Body Mass Index (BMI) 33.2 Finger Stick Blood Glucose 96 Intake and Output for Last 24 Hours 07/17/20 07/18/20 07/19/20 23:59 23:59 23:59 Intake Total 816.97 / 856.97 2054 / 2054 1393.75 / 1393.75 Output Total 1725 / 1900 2400 / 2400 Balance -908.03 / -1043.03 -345 / -345 1393.75 / 1393.75 Laboratory Results 07/19/20 05:51: WBC 6.2, RBC 4.35, Hgb 12.8, Hct 39.2, MCV 90.1, MCH 29.4, MCHC 32.7, RDW Std Deviation 43.3, RDW Coeff of Yonathan 13.2, Plt Count 256, MPV 10.0, Immature Gran % (Auto) 0.600, Neut % (Auto) 68.5, Lymph % (Auto) 19.6, Monona % (Auto) 7.9, Eos % (Auto) 3.2, Baso % (Auto) 0.2, Absolute Neuts (auto) 4.3, Absolute Lymphs (auto) 1.22, Nucleated RBC % 0 07/19/20 05:51: Sodium 139, Potassium 4.1, Chloride 108 H, Carbon Dioxide 22.0, Anion Gap 9, BUN 14, Creatinine 0.94, Estim Creat Clear Calc 60.13, Est GFR (MDRD) Af Amer 80, Est GFR (MDRD) Non-Af 66, BUN/Creatinine Ratio 15.0, Glucose 50 L, Calcium 8.8 Current Medications Acetaminophen (Tylenol) 650 mg PO Q6H PRN PRN PRN Reason: Temp > 99.6 F Amlodipine Besylate (Norvasc) 5 mg PO DAILY IRVING Diphenhydramine HCl (Benadryl) 50 mg IV X1 PRN PRN Reason: Allergic Reaction Hydralazine HCl (Apresoline) 75 mg PO TID IRVING Hydroxyzine HCl (Atarax Tablet) 10 mg PO 4X/DAY PRN PRN PRN Reason: ANXIETY Last Admin: 07/17/20 23:57 Dose: 10 mg Documented by: Sodium Chloride () 250 mls @ 15 mls/hr IV .[id number] PRN PRN Reason: Saline Flush Sodium Chloride () 250 mls @ 15 mls/hr IV .[id number] PRN PRN Reason: Additional IVPB Infusion Famotidine 20 mg/ Sodium (Chloride) 10 mls @ 300 mls/hr IV X1 PRN PRN Reason: Allergic Reaction Losartan Potassium (Cozaar) 100 mg PO DAILY IRVING Last Admin: 07/19/20 13:23 Dose: 100 mg Documented by: Ondansetron HCl (Zofran) 4 mg IV Q8H PRN PRN PRN Reason: NAUSEA/VOMITING Last Admin: 07/18/20 03:38 Dose: 4 mg Documented by: Sodium Chloride () 10 - 40 ml IV UD PRN PRN Reason: SALINE FLUSH Last Admin: 07/19/20 13:19 Dose: 10 ml Documented by: Sodium Chloride ([place] Nasal [place]) 1 spray NASAL TID PRN PRN PRN Reason: NASAL DRYNESS Last Admin: 07/18/20 22:29 Dose: 1 spray Documented by: STROKE Vital Signs/Narrative: Vital Signs Temp Pulse Resp BP Pulse Ox 07/19/20 13:23 77 07/19/20 12:39 98.2 F 60 20 H 179/66 H 95 07/19/20 11:50 93 Assessment/Plan Patient seen by hiren Warren PA-C under my supervision Patient seen and examined. She says she feels better today. SHe is able to speak much more clearly today, and says she is able to move all her extremities spontaneously. Review of systems is otherwise negative. She still refuses to talk about her suicidal ideation or mental health issues. O/E: Vital Signs Temp Pulse Resp BP Pulse Ox 98.2 F 77 20 H 179/66 H 95 07/19/20 12:39 07/19/20 13:23 07/19/20 12:39 07/19/20 12:39 07/19/20 12:39 General: Alert, Oriented x3, Cooperative, Lethargic HEENT: Atraumatic, PERRLA, EOMI, Normocephalic Oral: Dry Mucosa Neck: Supple, No JVD, Negative Carotid Bruits Lungs: Clear to auscultation, Normal air movement, No rhonchi, No wheeze, No rales Cardiovascular: Regular rate, Normal S1, Normal S2, No murmurs, Bradycardic Abdomen: Bowel Sounds Present, Soft, Non Tender, Non-Distended, No Hepato- splenomegaly Extremities: No clubbing, No cyanosis, No edema, Capillary Refill Less than 3 Seconds Skin: No rashes, No breakdown Musculoskeletal: No Tenderness to Palpation of Joints or Extremities Lymphatic: No Cervical, Supraclavicular, or Inguinal Adenopathy Neurological: Cranial nerves II-XII grossly intact, power 5/5 in all extremities. Psych/Mental Status: Flat Affect She had a cookie swallow today which showed mild oropharyngeal dysphagia with swallowing function suspected to be significantly impacted by anxiety. She was recommended to have mechanical soft textures with thin liquids. Patient was also reviewed by neurology. MRI was negative for stroke and neurology thought that this might be also due to her conversion disorder. Patient is now stable and she is medically cleared for review by mental health crisis and discharge psych facility as needed. Rest as per Hiren Warren PA-C's notes which I reviewed and endorsed. Inpatient E&M: [id number] Subs Hosp L2
--- NOTE | 2020-07-19 14:21 | CASEMGMT ---
SOCIAL WORK Updated patient is medically cleared. Call to [facility] to update. Intake requesting updated information be faxed to [facility]. Pending review. Awaiting accepting information at this time. Evelia Limon, NURSE MIDWIFE/CLINICAL INSTRUCTOR, PET WALKER
--- NOTE | 2020-07-19 16:42 | CASEMGMT ---
SOCIAL WORK Call from [facility] [facility], requesting additional information and copy of signed [place] [facility] with their facility name. All information faxed at this time. [facility] to call this worker back once information received with accepting information. Staff saige. Evelia Limon MSW, GAME BREEDING FARM MANAGER
--- NOTE | 2020-07-19 17:40 | CASEMGMT ---
SOCIAL WORK Call from [facility]. Patient accepted by Dr. Wing to the geriatric unit room 108B. Nurse to call report to . [employer] to set up transport. Plan: [facility] Evelia Limon, DANCE CHOREOGRAPHER, MOTH EXTERMINATOR
--- NOTE | 2020-07-19 18:00 | DS.PCM_ITS ---
<Claudio Warren - Last Filed: 07/20/20 08:39> Discharge Date and Diagnosis Date of Admission: 07/17/20 Date of Discharge: 07/20/20 - Primary Discharge Diagnosis Acute Problems: Conversion disorder Stroke Ruled out Suicidal ideations Dysphagia - Secondary Discharge Diagnosis Chronic Problems: Chronic Problems (Last Reviewed 07/17/20 @ 07:[address] 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 CT/Soft Tissue Neck without Contr IMPRESSION: No acute osseous or soft tissue injury detected. Degenerative changes chronic sinus inflammation are stable findings. Mild fat stranding along the sternocleidomastoid muscle bilaterally. CT/Brain/Head without Contrast IMPRESSION: There is no acute intracranial pathology. There is no significant interval change. CT/Brain/Head without Contrast IMPRESSION: Normal unenhanced CT scan of the brain. MRI/Brain without Contrast IMPRESSION: Scattered hyperintensities in the periventricular and subcortical white matter may represent microangiopathic gliosis from chronic hypertension or metabolic disease but other possibilities include hypercoagulable state, vasculitis, migraine headaches, demyelinating disease (multiple sclerosis), or Lyme disease. No acute infarct. Modified Barium Swallow Study: - Recommendations Diet: Mechanical Soft Textures, Thin Liquids Compensatory Strategies: Small Bites, Small Sips, Slow Rate, Alternate bites/solids and sips/liquids, Sitting upright, Remain sitting upright for 30 minutes after PO intake Supervision: Distant Supervision Recommend Repeat Modified Barium Swallow: No Need for Skilled Speech Therapy Services: Yes - see impression above for additional details Recommended Referrals: GI Consult - further assessment of pharyngoesophageal segment/upper esophagus - see impression, ENT Consult - further assessment of aphonia, functional/conversion? Education Completed: 1. Described result of evaluation., 2. Pt understands evaluation & agrees with goals and treatment plan., 7. Pt requires further education on strategies & risks. Consults: SOC - Teleneuro Intensive care - George Operations: None Procedures: - - tPA Summary of Care Provided: Hospital Course: The patient is a 55 year old F with pmhx of schizophrenia, psychosis, conversion disorder, otherwise as above who presented to the ER with suicidal ideation. she was found to have wrapped netting that was protecting her arm from scratching around her neck in an attempt to hurt herself. The patient was being discharged to a psychiatric facility with EMS when when she suddenly stopped moving her extremities and the ER physician did not get her to respond to a painful stimulus with a tongue depressor on the sole of her feet. A stroke alert was called and tPA was administered. She was admitted to the ICU for post tPA monitoring. MRI was negative for stroke. SOC neuro was consulted and felt that the patient did not have a stroke, but had conversion disorder, and recommended inpatient psychiatric workup. The patient was transitioned to the PCU. She was choking on pills and underwent a swallow study (as above). She does have dysphagia and her diet was modified. Her pills were recommended to be crushed. Nicardipine was changed to norvasc as nicardipine cannot be crushed and norvasc can. She remained stable and was discharged to inpatient psych. Follow up with PCP 1-2 weeks. This patient was seen by Claudio Warren PA-C under the superivison of Dr. Barron. [] - Physical Exam Vitals/I&O's: Vital Signs Temp Pulse Resp BP Pulse Ox 97.5 F L 64 16 147/64 H 98 07/19/20 21:05 07/19/20 21:14 07/19/20 21:05 07/19/20 21:05 07/19/20 21:05 Oxygen Delivery Method Room Air Weight: 197 lb 12.074 oz Body Mass Index (BMI) 33.2 Finger Stick Blood Glucose 96 Intake and Output for Last 24 Hours 07/18/20 07/19/20 07/20/20 23:59 23:59 23:59 Intake Total 2054 1753.75 / 1753.75 Output Total 2400 / 2400 375 / 375 Balance -345 / -345 1378.75 / 1378.75 General: Alert, Oriented x3, Cooperative HEENT: Atraumatic, PERRLA, EOMI, Normocephalic Neck: Supple, No JVD, Negative Carotid Bruits Lungs: Clear to auscultation, Normal air movement Cardiovascular: Regular rate, No murmurs Abdomen: Bowel Sounds Present, Soft, Non Tender Extremities: No edema, Capillary Refill Less than 3 Seconds Skin: No rashes, No breakdown Musculoskeletal: No Tenderness to Palpation of Joints or Extremities Neurological: Cranial nerves II-XII grossly intact Psych/Mental Status: Anxious, Alert and oriented to time, place, person, mood and affect Discharge Diet: No Restrictions, 2000 mg Sodium Diet, - - mechanical soft, thin liquids Discharge Activity: Return to Normal Activity Home Medications: Medications to take at Discharge Nitroglycerin [Nitrostat] 0.4 mg SL PRN PRN 06/19/17 traMADol [Ultram (G)] 50 mg PO Q6H PRN PRN 02/24/19 Guaifenesin [Mucinex] 600 mg PO BID 07/09/19 Gabapentin [Neurontin] 300 mg PO TID 09/06/19 Oxcarbazepine 1.5 tab PO QHS 09/06/19 Fluticasone 0.05% [Flonase Nasal [place]] 1 spray NASAL BID 10/18/19 Hydroxyzine Pamoate [Vistaril] 50 mg PO Q6H PRN 10/18/19 Ondansetron [Zofran Odt] 4 mg PO Q8H PRN PRN #10 tab 10/18/19 budesonide-formoterol HFA 160 mcg-4.5 mcg/actuation aerosol inhaler 2 puff INHALATION Q12H #10.2 g 12/16/19 levothyroxine 50 mcg tablet 50 mcg PO DAILY #90 tab 12/16/19 losartan 100 mg tablet 100 mg PO DAILY #90 tab 12/16/19 nifedipine 60 mg tablet,extended release 24 hr 60 mg PO BID #180 tab 12/16/19 spironolactone 25 mg tablet 25 mg PO QODAY #90 tab 12/16/19 albuterol sulfate 2.5 mg INHALATION Q6H PRN #75 ml 12/17/19 Risperidone [Risperdal] 1 mg PO QHS 01/04/20 cholecalciferol (vitamin D3) 1,250 mcg (50,000 unit) capsule 50,000 unit PO QWEEK 90 Days #14 cap 01/19/20 hydralazine 50 mg tablet 75 mg PO TID 90 Days #405 tab 01/19/20 melatonin 10 mg capsule 10 mg PO QHS #90 cap 01/19/20 valacyclovir 1 gram tablet 1,000 mg PO Q8H #21 tab 01/28/20 ipratropium 20 mcg-albuterol 100 mcg/actuation mist for inhalation 1 puff INHALATION 4X/DAY PRN #4 g 04/02/20 aspirin 81 mg tablet,delayed release 81 mg PO DAILY@0800 #30 tab 05/18/20 loratadine 10 mg tablet 10 mg PO DAILY PRN #90 tab 05/18/20 Dicyclomine HCl [Bentyl] 20 mg PO Q6H PRN #20 cap 07/15/20 Primary Care Physician: Scarlet Navarro MD [Primary Care Provider] - Please follow up with your Primary Care Physician in: 1-2 weeks Please Follow Up With: Psychiatry When: as directed Disposition: Psych Hospital or Unit Minutes spent on discharge:: 40 Patient Condition:: Stable Medical Necessity - Tobacco Use Smoking Status: Current every day smoker Tobacco Use: Cigarettes Meaningful Use Info Meaningful Use Diagnoses (Choose all that apply): None applicable <Jessica Barron - Last Filed: 07/20/20 13:31> Discharge Date and Diagnosis - Secondary Discharge Diagnosis Chronic Problems: Chronic Problems (Last Reviewed 07/17/20 @ 07:[address] 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 She was admitted through the ED with a complaint of suicidal ideation and was found to have rapid acting around her neck in an attempt to hurt herself. Plan was to discharge patient to a psychiatric facility but patient then stopped moving her arms and her questionable strokelike symptoms. She was also selectively mute. Stroke alert was called and per review by neurology, she was administered TPA. She was subsequently admitted to the ICU. MRI was negative for stroke. It was thought the patient's symptoms were more of a conversion disorder. Neurology reviewed patient and agreed with this assessment. Patient was also noted to be having dysphagia and so had a swallow study which showed that she did have mild oral pharyngeal dysphagia with swallowing dysfunction. Her diet was therefore modified to mechanical soft textures with thin liquids. Mental health crisis evaluated patient and patient was subsequently discharged to a mental health facility on 07/20/2020. Patient seen and examined prior to discharge. She had no complaints and felt well. Review of symptoms otherwise negative. Labs and vitals reviewed. Home medication reviewed and reconciled. She was now speaking much better and said her mutism had resolved and she was now moving all her extremities spontaneously. O/E: Vital Signs Temp Pulse Resp BP Pulse Ox 97.5 F L 64 16 147/64 H 98 07/19/20 21:05 07/19/20 21:14 07/19/20 21:05 07/19/20 21:05 07/19/20 21:05 [] General: Alert, Oriented x3, Cooperative, HEENT: Atraumatic, PERRLA, EOMI, Normocephalic Oral: Dry Mucosa Neck: Supple, No JVD, Negative Carotid Bruits Lungs: Clear to auscultation, Normal air movement, No rhonchi, No wheeze, No rales Cardiovascular: Regular rate, Normal S1, Normal S2, No murmurs, Bradycardic Abdomen: Bowel Sounds Present, Soft, Non Tender, Non-Distended, No Hepato- splenomegaly Extremities: No clubbing, No cyanosis, No edema, Capillary Refill Less than 3 Seconds Skin: No rashes, No breakdown Musculoskeletal: No Tenderness to Palpation of Joints or Extremities Lymphatic: No Cervical, Supraclavicular, or Inguinal Adenopathy Neurological: Cranial nerves II-XII grossly intact, power 5/5 in all extremities. Psych/Mental Status: Flat Affect Plan is for discharge to psychiatric facility. Rest as per Claudio Warren PA-C's notes which I reviewed and endorsed. - Physical Exam Vitals/I&O's: Vital Signs Temp Pulse Resp BP Pulse Ox 97.5 F L 64 16 147/64 H 98 07/19/20 21:05 07/19/20 21:14 07/19/20 21:05 07/19/20 21:05 07/19/20 21:05 Oxygen Delivery Method Room Air Weight: 197 lb 12.074 oz Body Mass Index (BMI) 33.2 Finger Stick Blood Glucose 96 Intake and Output for Last 24 Hours 07/18/20 07/19/20 07/20/20 23:59 23:59 23:59 Intake Total 2054 / 2054 1753.75 / 1753.75 Output Total 2400 / 2400 375 / 375 Balance -345 / -345 1378.75 / 1378.75 Inpatient E&M: 27607 Disch Hosp
[2020-07-19] MEDS: hydrOXYzine 10 MG Tablet PO (19:55)
[2020-07-19] MEDS: hydrALAZINE 25 MG Tablet 75 MG PO (21:14)
--- NOTE | 2020-07-19 22:55 | NURSING ---
Report called to Xena BUENROSTRO at [facility]. All patient's belongings sent with patient. [facility] here to transport patient.
--- NOTE | 2020-07-20 14:19 | CASEMGMT ---
SOCIAL WORK Updated by Rosie Hernandez from [facility] called in regarding plan for patient's dog. Call to [facility]. Left message for SW with contact information for [facility] and this worker's call back information for any further questions. Evelia Limon, CLINICAL APPLICATION MANAGER, ASW/ASUW TACTICAL AIR CONTROLLER
== END 2020-07-19 22:50 | DRG 756 ==
LOC: ED 07-17 03:38 → ICU 07-17 05:18 → PCU 07-18 16:17
PROVIDERS: Emergency Medicine; Internal Medicine Critical Care Medicine; Admitting Provider Hospitalist; Emergency Provider Physician Assistant Medical; PCP Internal Medicine; Visit Provider Student in an Organized Health Care Education/Training Program
DX: F44.4 Conversion disorder with motor symptom or deficit (principal); I16.1 Hypertensive emergency; R13.12 Dysphagia, oropharyngeal phase; T14.91XA Suicide attempt, initial encounter; X83.8XXA Intentional self-harm by other specified means, initial encounter; Y93.9 Activity, unspecified; Y92.230 Patient room in hospital as the place of occurrence of the external cause; F11.10 Opioid abuse, uncomplicated; E87.6 Hypokalemia; E03.9 Hypothyroidism, unspecified; E78.5 Hyperlipidemia, unspecified; F20.9 Schizophrenia, unspecified; F94.0 Selective mutism; F31.9 Bipolar disorder, unspecified; F15.10 Other stimulant abuse, uncomplicated; F12.10 Cannabis abuse, uncomplicated; I12.9 Hypertensive chronic kidney disease with stage 1 through stage 4 chronic kidney disease, or unspecified chronic kidney disease; N18.30 Chronic kidney disease, stage 3 unspecified; I48.0 Paroxysmal atrial fibrillation; G43.909 Migraine, unspecified, not intractable, without status migrainosus; J44.9 Chronic obstructive pulmonary disease, unspecified; Z87.19 Personal history of other diseases of the digestive system; Z86.73 Personal history of transient ischemic attack (TIA), and cerebral infarction without residual deficits; I95.1 Orthostatic hypotension; I73.9 Peripheral vascular disease, unspecified; Z86.711 Personal history of pulmonary embolism; I35.1 Nonrheumatic aortic (valve) insufficiency; K21.9 Gastro-esophageal reflux disease without esophagitis; M19.90 Unspecified osteoarthritis, unspecified site; G47.33 Obstructive sleep apnea (adult) (pediatric); Z79.82 Long term (current) use of aspirin; F17.210 Nicotine dependence, cigarettes, uncomplicated; Z76.5 Malingerer [conscious simulation]; Z90.49 Acquired absence of other specified parts of digestive tract; Z79.899 Other long term (current) drug therapy
CPT/HCPCS: 51702; 70450; 70490; 70496; 70498; 70551; 71045; 74176; 74230; 80048; 80053; 80307; 80320; 81001; 82550; 82962; 83690; 84484; 85025; 85610; 85730; 87635; 92507; 92526; 92610; 93005; 96360; 97110; 97116; 97162; 97166; 97530; 97535; 99285; J2997; J7030; J7120; Q9967; A4216; G0480; J2405; U0003

== ENCOUNTER 2020-09-23 12:42 | Emergency (ER) | payer MEDICAID, SELFPAY ==
[2020-09-10 09:00] VITALS: BMI 35.6
[2020-09-23] VITALS (8 sets, daily range): BP systolic 114–133; BP diastolic 50–74; PULSE 58–77; RESP 18–22; TEMP 36.5–37.1; O2SAT 95–97; BMI 38.4
--- NOTE | 2020-09-23 14:01 | EKG12_ITS ---
Test Reason : Blood Pressure : / mmHG Vent. Rate : 058 BPM Atrial Rate : 058 BPM P-R Int : 160 ms QRS Dur : 084 ms QT Int : 452 ms P-R-T Axes : 020 -15 023 degrees QTc Int : 443 ms Sinus bradycardia Possible Left atrial enlargement Borderline ECG Confirmed by JOSEF SPEARS, BRENDA ([id number]), assistant production editor ANAND HSIEH ([id number]) on 09/24/2020 2:12:17 PM Referred By: WESLEY/ANGELITO Confirmed By:BRENDA BAHENA MD
--- NOTE | 2020-09-23 14:01 | RAD_ITS ---
STUDY: X-RAY CHEST REASON FOR EXAM: Female, 55 years old. SHORTNESS OF BREATH SINCE SUNDAY, GETTING WORSE TECHNIQUE: Single AP portable view of the chest. COMPARISON: Comparison is made with prior study dated 07/14/2020. FINDINGS: EKG electrodes are seen. The lungs are clear and expanded. There is no demonstrated pleural abnormality. Cardiomegaly. Normal mediastinum and rosita. Normal visualized pulmonary arteries. There is atherosclerotic tortuosity of the aortic arch and descending thoracic aorta. Normal visualized thoracic spine. Normal visualized ribs, clavicles, and shoulders. There is no demonstrated abnormality of the visualized soft tissue structures of the upper abdomen. RAD/Chest 1 View (Portable) IMPRESSION: Cardiomegaly. Electronically Signed: Patrick Keita, at 15:03 EST , Service support ,
--- NOTE | 2020-09-23 14:21 | ED.DCSUM_ITS ---
History of Present Illness Chief Complaint: Shortness of Breath Informant: Patient Narrative: Patient is a 55-year-old female who presents to the ED for shortness of breath and a cough. Her symptoms have been present over the past 4 days and progressively getting worse. Her next-door neighbor had coronavirus and she is concerned about this. She has lost the sense of taste and smell. She has not been eating and drinking as much as usual. She does have a history of kidney issues as well as asthma. She states that she has been trying to smoke but has not been able to. She does get chest pain whenever she coughs. She did have nausea and vomiting as well as diarrhea. No urinary symptoms. She does have chronic edema of her lower extremities which does not seem worse than normal. She has had some low-grade fevers in the 99 range. Past Medical History - Allergies and Home Meds Allergies/Adverse Reactions: Allergies adhesive tape Allergy (Verified 09/10/20 08:57) Rash atropine sulfate [From ] Allergy (Verified 09/10/20 08:57) Hives codeine phosphate [From Tylenol-Codeine #3] Allergy (Verified 09/10/20 08:57) breathing problems divalproex sodium [From Depakote] Allergy (Verified 09/10/20 08:57) Unknown hydromorphone HCl [From Dilaudid] Allergy (Verified 09/10/20 08:57) facial blisters,itching hyoscyamine sulfate [From ] Allergy (Verified 09/10/20 08:57) Hives Iodinated Contrast Media [Iodinated Contrast Media - IV Dye] Allergy (Verified 09/10/20 08:57) breathing problems and my bp went up latex Allergy (Verified 09/10/20 08:57) Rash pantoprazole sodium [From Protonix] Allergy (Verified 09/10/20 08:57) Rash phenobarbital [From ] Allergy (Verified 09/10/20 08:57) Hives promethazine HCl [From Phenergan] Allergy (Verified 09/10/20 08:57) Anaphylaxis ramipril Allergy (Verified 09/10/20 08:57) Unknown scopolamine hydrobromide [From ] Allergy (Verified 09/10/20 08:57) Hives ziprasidone mesylate [From Geodon] Allergy (Verified 09/10/20 08:57) Unknown Sulfa (Sulfonamide Antibiotics) Adverse Reaction (Verified 09/10/20 08:57) Vomiting ziprasidone HCl [From [facility]] Adverse Reaction (Verified 09/10/20 08:57) tremors VIDODIN TUSS Allergy (Uncoded 09/10/20 08:57) Itching Amlodipine Adverse Reaction (Uncoded 09/10/20 08:57) Vomiting Primary Care Physician: Scarlet Navarro MD [Primary Care Provider] - 3-5 Days Prior records reviewed: Yes Surgical History: - - Cholecystectomy, R carpal tunnel surgery, L foot surgery, Uterine suspension and bladder sling. Smoking Status: Current every day smoker - Family History Paternal Family History: Family History (Last Reviewed 09/10/20 @ 09:00 by Edwige Gomez) Sister Myocardial infarction Colon cancer Mother Hypertension Arthritis Brain aneurysm Sister Colon cancer Family History: Reports: No pertinent history Sibling Family History: Family History (Last Reviewed 09/10/20 @ 09:00 by Edwige Gomez) Sister Myocardial infarction Colon cancer Mother Hypertension Arthritis Brain aneurysm Sister Colon cancer Family History: Reports: Heart Disease Maternal Family History: Family History (Last Reviewed 09/10/20 @ 09:00 by Edwige Gomez) Sister Myocardial infarction Colon cancer Mother Hypertension Arthritis Brain aneurysm Sister Colon cancer Family History: Reports: Hypertension Review of Systems All systems negative except as indicated General: Reports: Fever - Subjective. Denies: Chills, Sweats Eyes: Denies: Visual changes - bilaterally, Diplopia ENT: Denies: Rhinorrhea, Sore throat Cardiovascular: Reports: Chest pain - Chest wall. Denies: Palpitations Respiratory: Reports: Dyspnea, Cough, Sputum, Dyspnea on exertion Gastrointestinal: Reports: Nausea, Vomiting, Diarrhea. Denies: Abdominal pain, Melena, Hematochezia Genitourinary: Denies: Dysuria, Hematuria, Frequency Musculoskeletal: Denies: Back pain, Extremity Pain Skin: Denies: Rash, Wounds Neurological: Denies: Headache, Weakness, Numbness Physical Exam Vital Signs/Narrative: Vital Signs Temp Pulse Resp BP Pulse Ox 09/23/20 13:52 97.7 F L 69 20 H 120/50 L 96 09/23/20 13:02 97.7 F L 75 22 H 133/74 H 97 09/23/20 12:43 97.7 F L 75 22 H 133/74 H 97 Inital Vital Signs reviewed: Yes General: Well nourished, Well developed, No Acute Distress Head: Normocephalic, Atraumatic Eyes: Perrl, EOMI ENT: Moist mucous membranes, No rhinorrhea Neck: Supple, Nontender Cardiovascular: Regular rate, Regular rhythm, No murmurs Respiratory: No distress, CTA bilaterally, Chest nontender Abdomen: Soft, Nontender, Nondistended, Normal bowel sounds Back: Nontender, Normal Inspection Extremities: Nontender, Edema - Trace nonpitting bilaterally of lower extremities. This is symmetrical.. Negative for: Calf Tenderness Skin: Normal color, No rash Neurological: Alert, Oriented x3, Cranial nerves II-XII grossly intact, Normal Strength, Normal Sensation Psychological: Normal affect, Normal Mood Diagnostic/Tx/Re-eval Chest X-Ray - ED: - - Single view x-ray interpreted by myself. Lung jacobsen are clear. The cardiac silhouette is enlarged. Normal mediastinum. No appreciable pleural effusions. Agree with radiologist interpretation. - EKG Initial EKG Interpretation: - - Rate of 58 bpm in sinus bradycardia. Normal intervals. Left axis deviation. No significant ST elevations or depressions. No T wave abnormalities. - Medical Decision Making Patient presents to the ED for cough, shortness of breath. She has had a loss of taste and smell. Will check basic lab work, chest x-ray and coronavirus swab. Patient's lab work did not reveal any acute abnormalities. Her initial antigen test for coronavirus was negative but given the high suspicion of her having it PCR has been sent as an outpatient. X-ray just showed cardiomegaly but no areas of consolidation. We will treat her as a COPD exacerbation in the meantime with azithromycin and prednisone. She was able to ambulate around the ED and did not have any oxygen desaturations. She will be discharged home in stable condition. She is to follow-up with their PCP. Warning signs and symptoms which to return to the ED are reviewed. She understands and is agreeable this plan. All questions were answered. ED Disposition - Plan for ED Patient: Disposition: Home or Assisted Living Diagnosis: Cough, Dyspnea, COPD exacerbation Instructions: Coronavirus Disease 2019 (COVID-19): Caring for Yourself or Others, ED COPD Flare Prescriptions: Prednisone [Deltasone] 40 mg PO DAILY #10 tab Prescription Printed Azithromycin [Zithromax Z-Pradip] 250 mg PO UD #1 box Prescription Printed Referrals: Scarlet Navarro MD [Primary Care Provider] - 3-5 Days
[2020-09-23 14:29] LABS: Absolute Lymphocyte Count 1.41 X10^3/uL (0.83-4.51); Absolute Neutrophil Count 3.9 X10^3/uL (2.0-7.7); Basophil# 0.02 X10^3/uL; Basophil% 0.3 % (0-1); Eosinophil# 0.28 X10^3/uL; Eosinophils% 4.5 % (0-5); Hematocrit 37.8 % (37-47); Hemoglobin 12.9 g/dL (12.0-15.0); Lymphocyte # 1.41 X10^3/ul (4.0); Lymphocyte % 22.9 % (19-41); Mean Corp Hgb Conc 34.1 g/dL (32-36); Mean Corpuscular Hgb 30.8 pg (27.0-32.0); Mean Corpuscular Volume 90.2 fL (81-99); Monocyte# 0.57 X10^3/uL; Monocyte% 9.3 % (0-10); NRBC Flagged by Analyzer 0 % (0-5); Neutrophil # 3.86 X10^3/uL (2.7-7.7); Neutrophil % 62.7 % (47-70); Platelet Count 260 K/mm3 (150-450); RBC Distribution Width CV 14.1 % (11.6-14.6); RBC Distribution Width SD 46.4 fl (35.1-43.9); Red Blood Count 4.19 M/mm3 (4.2-5.4); White Blood Count 6.2 K/mm3 (4.4-11.0)
[2020-09-23 14:48] LABS: Anion Gap 7 (5-15); BUN 16 mg/dL (7-18); BUN/Creat Ratio 15.1 RATIO (10-20); Calcium,Total 8.7 mg/dL (8.5-10.1); Chloride 107 mmol/L (98-107); Creatinine, Serum 1.06 mg/dL (0.55-1.02); EST Glomerular Filtration Rate 57 mL/min (>60); Est Glom Filt Rate - Afr Amer 69 mL/min (>60); Estimated Creatinine Clearance 53.33 ml/min; Glucose 108 mg/dL (74-106); Potassium 3.7 mmol/L (3.5-5.1); Sodium Level 139 mmol/L (136-145)
[2020-09-23] MEDS: Acetaminophen 325 MG Tablet 650 MG PO (16:03)
== END 2020-09-23 16:21 | disposition home or self-care (01) ==
PROVIDERS: Emergency Provider Emergency Medicine; PCP Internal Medicine
DX: J44.1 Chronic obstructive pulmonary disease with (acute) exacerbation (principal)
CPT/HCPCS: 71045; 80048; 84484; 85025; 87426; 87635; 93005; 99285; A4216; U0003

== ENCOUNTER → 2020-10-22 10:32 | Outpatient (CLI) | payer MEDICAID, SELFPAY ==
[2020-10-14 14:36] VITALS: BMI 35.1
--- NOTE | 2020-10-22 10:35 | ECHOD_ITS ---
Reason For Study: Dyspnea/SOB Procedure This was a 2D Doppler, Color Flow transthoracic echocardiogram. The exam was of adequate technical quality. Exam performed in department. Left Ventricle Normal LV size. Left ventricular systolic function is normal. The estimated ejection fraction is 65 %. No evidence for diastolic dysfunction. No regional wall motion abnormalities noted. Right Ventricle Normal RV size. Normal systolic function. Atria The left atrium is mildly enlarged. Normal right atrium. Mitral Valve There is no mitral annular calcification. Normal mitral valve. Mild-Moderate (1-2+) mitral valve insufficiency. Tricuspid Valve Normal tricuspid valve. Mild to moderate (1-2+) tricuspid valve insufficiency. Right ventricular systolic pressure estimated to be 29 mmHg. Aortic Valve Trisinus/trileaflet aortic valve. Mild focal aortic valve calcification. Moderate (2+) aortic valve insufficiency. Pulmonic Valve The pulmonic valve is not well visualized. Mild (1+) pulmonic valve insufficiency. Great Vessels The aortic root is not well visualized. Pericardium/Pleural No pericardial effusion. MMode/2D Measurements & Calculations LVIDd: 6.3 cm IVSd: 1.1 cm LA dimension: 4.1 cm LVIDs: 4.7 cm LVPWd: 1.2 cm RVDd: 3.1 cm FS: 25.5 % LAV(MOD-bp): 82.9 ml LA A4 area: 24.4 cm2 RA A4 area: 18.2 cm2 LAV(MOD-bp) Indexed: 41.5 ml/m2 LAV(MOD-sp2): 73.5 ml LAV(MOD-sp4): 87.0 ml Time Measurements MV dec time: 0.20 sec Doppler Measurements & Calculations MV E max govind: 88.6 cm/sec Lat Peak E' Govind: 11.6 cm/sec Med Peak E' Govind: 9.6 cm/sec MV A max govind: 83.0 cm/sec E/E' lat: 7.7 E/E' med: 9.2 MV E/A: 1.1 MV V2 max: 103.4 cm/sec MV P1/2t max govind: 104.9 cm/sec Ao V2 max: 174.7 cm/sec MV max P.3 mmHg MV P1/2t: 105.0 msec Ao max P.2 mmHg MV V2 mean: 57.1 cm/sec MV dec slope: 292.8 cm/sec2 MV mean P.5 mmHg MVA(P1/2t): 2.1 cm2 MV V2 VTI: 35.5 cm AI max govind: 440.2 cm/sec LV V1 max: 153.0 cm/sec MR max govind: 560.8 cm/sec AI max P.5 mmHg LV V1 max P.4 mmHg MR max P.8 mmHg MR mean govind: 449.6 cm/sec AI dec slope: 175.4 cm/sec2 MR mean P.3 mmHg AI P1/2t: 735.1 msec MR VTI: 210.7 cm PA V2 max: 105.0 cm/sec TR max govind: 252.8 cm/sec TR max P.6 mmHg Interpretation Summary Left ventricular systolic function is normal. The estimated ejection fraction is 65 %. The left atrium is mildly enlarged. Mild-Moderate (1-2+) mitral valve insufficiency. Mild to moderate (1-2+) tricuspid valve insufficiency. Mild focal aortic valve calcification. Moderate (2+) aortic valve insufficiency. Mild (1+) pulmonic valve insufficiency. Right ventricular systolic pressure estimated to be 29 mmHg. No evidence for diastolic dysfunction. Comment: The transthoracic echocardiogram from 12-31-2018 reports a positive agitated saline contrast study for a right to left interatrial shunt compatible with a PFO. Ordering Physician: Scarlet Navarro Referring Physician: Scarlet Navarro Performed By: Igor Coffman RCS
== END ==
PROVIDERS: PCP Internal Medicine; Referring Provider Internal Medicine; Visit Provider Internal Medicine
DX: R06.02 Shortness of breath (principal); R60.0 Localized edema
CPT/HCPCS: 93306

== ENCOUNTER → 2020-10-25 15:18 | Outpatient (CLI) | payer MEDICAID, SELFPAY ==
[2020-10-25 14:38] VITALS: BMI 39.4
[2020-10-25 16:47] LABS: Anion Gap 6 (5-15); BUN 15 mg/dL (7-18); BUN/Creat Ratio 13.6 RATIO (10-20); Calcium,Total 9.1 mg/dL (8.5-10.1); Chloride 100 mmol/L (98-107); EST Glomerular Filtration Rate 55 mL/min (>60); Est Glom Filt Rate - Afr Amer 66 mL/min (>60); Glucose 94 mg/dL (74-106); Potassium 4.2 mmol/L (3.5-5.1); Sodium Level 133 mmol/L (136-145)
== END ==
PROVIDERS: PCP Internal Medicine; Referring Provider Internal Medicine; Visit Provider Internal Medicine
DX: I10 Essential (primary) hypertension (principal)
CPT/HCPCS: 36415; 80048

== ENCOUNTER 2020-10-31 03:42 | Inpatient (IN) | payer MEDICAID, SELFPAY ==
[2020-10-25 14:38] VITALS: BMI 39.4
[2020-10-31] VITALS (16 sets, daily range): BP systolic 102–147; BP diastolic 46–96; PULSE 60–78; RESP 16–23; TEMP 36.3–36.7; O2SAT 93–96; BMI 42.5; BMI 41.1
--- NOTE | 2020-10-31 03:50 | EKG12_ITS ---
Test Reason : CP Blood Pressure : / mmHG Vent. Rate : 080 BPM Atrial Rate : 080 BPM P-R Int : 162 ms QRS Dur : 090 ms QT Int : 408 ms P-R-T Axes : 038 -16 018 degrees QTc Int : 470 ms Sinus rhythm with frequent Premature ventricular complexes Possible Left atrial enlargement Left ventricular hypertrophy Abnormal ECG Confirmed by JOSEF SPEARS, BRENDA ([id number]), index editor KIEL OSEGUERA ([id number]) on 11/03/2020 6:55:11 AM Referred By: CHACHA Confirmed By:BRENDA BAHENA MD
--- NOTE | 2020-10-31 03:50 | RAD_ITS ---
STUDY: X-RAY CHEST REASON FOR EXAM: Female, 55 years old. Chest pain, dyspnea x4 weeks worsening today, cough. TECHNIQUE: Single AP portable view of the chest. COMPARISON: 09/23/2020. FINDINGS: There are no confluent pulmonary infiltrates. There is no demonstrated pleural abnormality. There is mild cardiac enlargement. Normal mediastinum and rosita. Normal visualized aortic arch and descending thoracic aorta. There are no demonstrated acute fractures or destructive bone lesions. There is no demonstrated abnormality of the visualized soft tissue structures of the upper abdomen. RAD/Chest 1 View (Portable) IMPRESSION: Cardiomegaly. No evidence for acute cardiopulmonary pathology. Electronically Signed: Bar Serrano MD at 5:55 EST , Service support ,
--- NOTE | 2020-10-31 04:02 | ED.DCSUM_ITS ---
- ER Visit Summary Date of Service: 10/31/20 Chief Complaint: Chest pain, shortness of breath History of Present Illness: The patient is a 55 F presenting with chest pain, shortness of breath. She states she began having chest pain tonight that she describes as 8 out of 10 midsternal sharp pain. She was given aspirin and nitro per EMS with no improvement of her pain. She states she has been having shortness of breath with exertion that has been progressively worsening. She is having increasing swelling in her lower extremities. Her Lasix dose was recently doubled and she states her symptoms are not improving. She complains of nausea with no vomiting. She complains of dizziness and lightheadedness, denies syncope or fall. She states she was recently tested for Covid and was negative. She has a mild cough. She denies fever. Denies other complaints. Physical Examination: Vitals are stable. Patient is afebrile. Alert no acute distress. HEENT exam is unremarkable. Neck is supple. Lungs are wheezing bilaterally. Heart is regular rate and rhythm. Abdomen is soft nontender nondistended. Extremities symmetric edema Skin is warm and dry. No focal neurologic deficit. Remainder of exam is unremarkable. Emergency Department Course and Treatment: EKG is sinus rhythm rate of 80 with frequent PVCs. CBC, chemistries unremarkable other than sodium 127, BUN 24, creatinine 1.19. Troponin is negative. Chest x-ray shows cardiomegaly. Patient was given Lasix IV. Discussed with the hospitalist for admission. Disposition: Admission Impression: CHF, chest pain This note was generated with [employer] dictation software. It may contain incorrect words, spelling, and punctuation that were not noted in review of the chart prior to signing ED Disposition - Plan for ED Patient:
[2020-10-31 04:39] LABS: Absolute Lymphocyte Count 1.39 X10^3/uL (0.83-4.51); Absolute Neutrophil Count 3.9 X10^3/uL (2.0-7.7); Basophil# 0.02 X10^3/uL; Basophil% 0.3 % (0-1); Eosinophil# 0.28 X10^3/uL; Eosinophils% 4.5 % (0-5); Hematocrit 40.6 % (37-47); Hemoglobin 13.9 g/dL (12.0-15.0); Lymphocyte # 1.39 X10^3/ul (4.0); Lymphocyte % 22.2 % (19-41); Mean Corp Hgb Conc 34.2 g/dL (32-36); Mean Corpuscular Hgb 29.9 pg (27.0-32.0); Mean Corpuscular Volume 87.3 fL (81-99); Mean Platelet Vol. 9.5 fl (6.2-12.0); Monocyte# 0.63 X10^3/uL; NRBC Flagged by Analyzer 0 % (0-5); Neutrophil # 3.93 X10^3/uL (2.7-7.7); Neutrophil % 62.7 % (47-70); Platelet Count 274 K/mm3 (150-450); RBC Distribution Width CV 13.1 % (11.6-14.6); RBC Distribution Width SD 41.7 fl (35.1-43.9); Red Blood Count 4.65 M/mm3 (4.2-5.4); White Blood Count 6.3 K/mm3 (4.4-11.0)
[2020-10-31 05:04] LABS: Anion Gap 8 (5-15); BUN 24 mg/dL (7-18); BUN/Creat Ratio 20.2 RATIO (10-20); Calcium,Total 8.7 mg/dL (8.5-10.1); Chloride 98 mmol/L (98-107); Creatinine, Serum 1.19 mg/dL (0.55-1.02); EST Glomerular Filtration Rate 50 mL/min (>60); Est Glom Filt Rate - Afr Amer 60 mL/min (>60); Estimated Creatinine Clearance 45.58 ml/min; Glucose 98 mg/dL (74-106); Potassium 4.9 mmol/L (3.5-5.1); Sodium Level 127 mmol/L (136-145)
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
[2020-10-31] MEDS: Furosemide 40 MG/4 ML Vial IV ×2 (06:05→09:24)
--- NOTE | 2020-10-31 06:45 | EKG12_ITS ---
Test Reason : CP ADMIT Blood Pressure : / mmHG Vent. Rate : 064 BPM Atrial Rate : 064 BPM P-R Int : 168 ms QRS Dur : 090 ms QT Int : 432 ms P-R-T Axes : 034 -11 014 degrees QTc Int : 445 ms Sinus rhythm with occasional Premature ventricular complexes Otherwise normal ECG Confirmed by JOSEF SPEARS, BRENDA ([id number]), fan mail editor THANH PEREZ ([id number]) on 11/04/2020 2:34:31 PM Referred By: ALAN Confirmed By:BRENDA BAHENA MD
[2020-10-31] MEDS: Ipratropium/Albuterol Sulfate 3 ML AMPUL.NEB INHALATION ×3 (07:42→19:48)
[2020-10-31] MEDS: Budesonide Respules 0.5 MG/2 ML AMPUL.NEB. INHALATION ×2 (07:42→19:48)
[2020-10-31] MEDS: hydrALAZINE 50 MG Tablet 75 MG PO ×3 (07:54→22:21)
[2020-10-31] MEDS: Aspirin E.C. 81 MG Tablet PO (08:01)
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
[2020-10-31 08:56] LABS: BNP,B-Type NATRIURETIC PEPTIDE 13.4 pg/mL (0-100)
[2020-10-31] MEDS: guaiFENesin 600 MG Tablet PO ×2 (09:24→22:21)
[2020-10-31] MEDS: Enoxaparin 40 MG/0.4 ML Syringe SC (09:24)
[2020-10-31] MEDS: ARIPiprazole 5 MG Tablet PO (09:24)
[2020-10-31] MEDS: 0.9% Saline Lock 10 ML Syringe IV ×2 (09:24→13:06)
[2020-10-31] MEDS: Losartan Potassium 100 MG Tablet PO (09:24)
[2020-10-31] MEDS: Gabapentin 300 MG Capsule PO ×2 (09:24→22:20)
[2020-10-31] MEDS: Fluticasone 0.05% 1 SPRAY NASAL.SRY NASAL ×2 (09:31→22:19)
--- NOTE | 2020-10-31 09:50 | PCS.PANDOC ---
PANDEMIC DOCUMENTATION INITIATED: Date: 10/31/2020 Time: 644
[2020-10-31] MEDS: traMADol 50 MG Tablet PO ×2 (12:33→22:19)
[2020-10-31] MEDS: Furosemide 500 MG in Empty Viaflex 50 mL 1 EACH CONT INF (13:06)
[2020-10-31] MEDS: traZODone 100 MG Tablet PO (22:21)
[2020-10-31] MEDS: MELATONIN 10 MG TABLET PO (22:23)
[2020-10-31] MEDS: OXcarbazepine 600 MG Tablet PO (22:23)
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
[2020-11-01] VITALS (12 sets, daily range): BP systolic 112–125; BP diastolic 38–71; PULSE 59–81; RESP 16–18; TEMP 36.5–36.7; O2SAT 95–97
[2020-11-01] MEDS: traMADol 50 MG Tablet PO ×2 (04:43→12:21)
[2020-11-01] MEDS: Levothyroxine 50 MCG Tablet PO (05:20)
[2020-11-01] MEDS: hydrALAZINE 50 MG Tablet 75 MG PO ×2 (05:20→13:22)
[2020-11-01 06:36] LABS: Anion Gap 6 (5-15); BUN 36 mg/dL (7-18); Calcium,Total 8.8 mg/dL (8.5-10.1); Chloride 99 mmol/L (98-107); Creatinine, Serum 1.44 mg/dL (0.55-1.02); EST Glomerular Filtration Rate 40 mL/min (>60); Est Glom Filt Rate - Afr Amer 48 mL/min (>60); Estimated Creatinine Clearance 37.67 ml/min; Glucose 104 mg/dL (74-106); Magnesium 2.3 mg/dL (1.6-2.6); Phosphorus 3.7 mg/dL (2.5-4.9); Potassium 3.5 mmol/L (3.5-5.1); Sodium Level 134 mmol/L (136-145)
[2020-11-01] MEDS: Ipratropium/Albuterol Sulfate 3 ML AMPUL.NEB INHALATION ×2 (07:02→13:15)
[2020-11-01] MEDS: Budesonide Respules 0.5 MG/2 ML AMPUL.NEB. INHALATION (07:02)
[2020-11-01] MEDS: Enoxaparin 40 MG/0.4 ML Syringe SC (09:37)
[2020-11-01] MEDS: Gabapentin 300 MG Capsule PO (09:37)
[2020-11-01] MEDS: ARIPiprazole 5 MG Tablet PO (09:37)
[2020-11-01] MEDS: Aspirin E.C. 81 MG Tablet PO (09:38)
[2020-11-01] MEDS: Spironolactone 25 MG Tablet PO (09:38)
[2020-11-01] MEDS: guaiFENesin 600 MG Tablet PO (09:39)
[2020-11-01] MEDS: Fluticasone 0.05% 1 SPRAY NASAL.SRY NASAL (09:39)
--- NOTE | 2020-11-01 10:43 | CASEMGMT ---
Addendum entered by Kathrine Peña 11/01/20 15:05: Pt is interested in getting more help into her home and states is interested in info on [facility] program. Dennys SW aware and into room to speak with pt. Chadd BUENROSTRO CM Original Note: CHITRA ALLISON assessment: Face to Face with patient for initial transition planning/care coordination assessment. CHITRA ALLISON introduced self and role at [facility], pt voices understanding and consents to assessment at this time. Pt is sitting up in chair in no distress at this time. Pt is A/Ox4 at this time and answers all questions appropriately at this time. Per Nancy BUENROSTRO, pt has been on room air since admission and no c/o SOB. Care providers, pharmacy, and demographics verified at this time. Presentation: c/o sharp CP/SOB Admitting dx: Heart failure PCP: Ramon Specialists: chanell Johnson; GI [facility]; Magui, eye; pt states is supposed to follow with neurology also Preferred Pharmacy: [facility] Insurance: [employer] [facility] Prescription Benefit: [facility] Living Will/HPOA: Pt states does not have LW/HPOA and declines AD info at this time. LNOK: Scott Farrell, daughter Living Arrangements: Pt states lives alone in 1 story apartment and states no concerns at home at this time. Pt states is independent with ADL's. Transportation: Pt states uses the bus for transportation and states no transportation concerns at this time. DME/HHC: Pt states has the following DME: walker and grab bars. Pt states no need for any further DME at this time. Pt states has had HHC in the past and has been to [facility] in the past. Pt states no concerns with going home at time of discharge. Pt is on disability. Pt states smokes 2 cigarettes daily and does not drink ETOH. Pt states no further concerns/needs at this time. CM to follow for any further discharge planning/needs. Advised pt to ask for CM if any further questions/concerns/needs arise, voices understanding. Pt Goal: Home Plan: Home Chadd BUENROSTRO CM
--- NOTE | 2020-11-01 11:33 | DCINST_ITS ---
- Discharge Diagnoses Current Active Problems: Current Active and Chronic Problems (Last Reviewed 10/31/20 @ 07:[address] 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 Navarro and discussed the hospital history of CHF exacerbation. Patient is on room air. Prescription for BMP and magnesium given for lab 11/04/2020 and advised to follow with PCP. Patient was advised to start Lasix 40 mg once daily on 11/02 and then resume 40 mg twice daily from 11/02 and to the blood work on 11/04. Patient has follow-up with Dr. Maldonado on 11/04. Allergies/Adverse Reactions: Allergies adhesive tape Allergy (Verified 10/25/20 14:44) Rash atropine sulfate [From ] Allergy (Verified 10/31/20 03:59) Hives codeine phosphate [From Tylenol-Codeine #3] Allergy (Verified 10/31/20 03:58) breathing problems divalproex sodium [From Depakote] Allergy (Verified 10/31/20 03:58) Unknown hydromorphone HCl [From Dilaudid] Allergy (Verified 10/31/20 03:58) facial blisters,itching hyoscyamine sulfate [From ] Allergy (Verified 10/31/20 03:58) Hives Iodinated Contrast Media [Iodinated Contrast Media - IV Dye] Allergy (Verified 10/31/20 03:58) breathing problems and my bp went up latex Allergy (Verified 10/31/20 03:58) Rash pantoprazole sodium [From Protonix] Allergy (Verified 10/31/20 03:58) Rash phenobarbital [From ] Allergy (Verified 10/31/20 03:58) Hives promethazine HCl [From Phenergan] Allergy (Verified 10/31/20 03:58) Anaphylaxis ramipril Allergy (Verified 10/31/20 03:58) Unknown scopolamine hydrobromide [From ] Allergy (Verified 10/31/20 03:58) Hives ziprasidone mesylate [From Geodon] Allergy (Verified 10/31/20 03:58) Unknown Sulfa (Sulfonamide Antibiotics) Adverse Reaction (Verified 10/25/20 14:44) Vomiting ziprasidone HCl [From Geodon] Adverse Reaction (Verified 10/31/20 03:59) tremors VIDODIN TUSS Allergy (Uncoded 09/10/20 08:57) Itching Amlodipine Adverse Reaction (Uncoded 09/10/20 08:57) Vomiting Medications to take at Discharge traMADol [Ultram] 50 mg PO Q6H PRN PRN 02/24/19 Gabapentin [Neurontin] 300 mg PO BID 09/06/19 Oxcarbazepine 1 tab PO QHS 09/06/19 Hydroxyzine Pamoate [Vistaril] 50 mg PO Q6H PRN 10/18/19 levothyroxine 50 mcg tablet 50 mcg PO DAILY #90 tab 12/16/19 spironolactone 25 mg tablet 25 mg PO QODAY #90 tab 12/16/19 albuterol sulfate 2.5 mg INHALATION Q6H PRN #75 ml 12/17/19 cholecalciferol (vitamin D3) 1,250 mcg (50,000 unit) capsule 50,000 unit PO QWEEK 90 Days #14 cap 01/19/20 hydralazine 50 mg tablet 75 mg PO TID 90 Days #405 tab 01/19/20 melatonin 10 mg capsule 10 mg PO QHS #90 cap 01/19/20 loratadine 10 mg tablet 10 mg PO DAILY PRN #90 tab 05/18/20 budesonide-formoterol HFA 160 mcg-4.5 mcg/actuation aerosol inhaler 2 puff INHALATION Q12H #10.2 g 08/06/20 fluticasone propionate 50 mcg/actuation nasal spray,suspension 1 spray INTRANASAL BID #15.8 ml 09/10/20 guaifenesin 1,200 mg tablet, extended release 12 hr 600 mg PO BID #60 tab 09/10 nitroglycerin 0.4 mg sublingual tablet 0.4 mg SUBLINGUAL PRN PRN #20 tab 09/10/20 aspirin 81 mg tablet,delayed release See Rx Instructions .ROUTE .COMPLEX #30 ea 09/14/20 ipratropium 20 mcg-albuterol 100 mcg/actuation mist for inhalation 1 puff INHALATION 4X/DAY PRN #4 g 10/28/20 Aripiprazole 5 mg PO DAILY 10/31/20 traZODone [Desyrel] 100 mg PO QHS 10/31/20 Furosemide 40 mg PO BID #60 tab 11/01/20 Losartan Potassium 25 mg PO DAILY #90 tab 11/01/20 Nifedipine [Nifedipine ER] 60 mg PO DAILY #180 tab 11/01/20 Orders to be completed after discharge: Basic Metabolic Profile (BMP) Time Frame: 11/04/20, Location: Laboratory Magnesium Time Frame: 11/04/20, Facility: [facility], Location: Laboratory Primary Care Physician: Scarlet Navarro MD [Primary Care Provider] - Please follow up with your Primary Care Physician in: 11/08/20 Test Results: Test results from this visit will be discussed in further detail at your follow- up appointment, if applicable. Please Follow Up With: Scarlet Navarro MD Please Follow Up With: Antonio Maldonado MD When: ON 06/04/2021
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
--- NOTE | 2020-11-01 11:49 | CASEMGMT ---
Patient asked RN ESTEFANY about waiver program. SW spoke with patient, introduced self and role at [facility]. Patient confirmed she would like waiver services. SW told her SW can complete the application and send to [employer] [facility] [employer]. She was in agreement with this. SW also gave her a list of services she may be able to get with waiver. SW also told her it takes awhile to get everything in place. Patient then said she needs a ride home. SW asked if she can get in and out of a van by herself. She said she can no problem. SW called [facility] transportation and they can take patient home at 1400. Patient needs to be at the main entrance at 1400. SW notified RN, parachute officer, and patient. Roberta PAUL MSW
--- NOTE | 2020-11-01 12:16 | PHA.DC.MC ---
Pharmacy Service has performed discharge medication reconciliation and counseling for this patient. The patient was counseled on the following discharge medications and changes in medications for homegoing were reviewed. 1. LASIX- DOSE CHANGE 2. LOSARTAN - DOSE CHANGE 3. NIFEDIPINE - DOSE CHANGE The Reason for Use, instructions for use, and potential side effects were reviewed for all new medications. The patient's questions regarding all of their medications were answered. The patient was able to verbally demonstrate an understanding of their discharge medications. Home Medications traMADol [Ultram] 50 mg PO Q6H PRN PRN 02/24/19 Gabapentin [Neurontin] 300 mg PO BID 09/06/19 Oxcarbazepine 1 tab PO QHS 09/06/19 Hydroxyzine Pamoate [Vistaril] 50 mg PO Q6H PRN 10/18/19 levothyroxine 50 mcg tablet 50 mcg PO DAILY #90 tab 12/16/19 spironolactone 25 mg tablet 25 mg PO QODAY #90 tab 12/16/19 albuterol sulfate 2.5 mg INHALATION Q6H PRN #75 ml 12/17/19 cholecalciferol (vitamin D3) 1,250 mcg (50,000 unit) capsule 50,000 unit PO QWEEK 90 Days #14 cap 01/19/20 hydralazine 50 mg tablet 75 mg PO TID 90 Days #405 tab 01/19/20 melatonin 10 mg capsule 10 mg PO QHS #90 cap 01/19/20 loratadine 10 mg tablet 10 mg PO DAILY PRN #90 tab 05/18/20 budesonide-formoterol HFA 160 mcg-4.5 mcg/actuation aerosol inhaler 2 puff INHALATION Q12H #10.2 g 08/06/20 fluticasone propionate 50 mcg/actuation nasal spray,suspension 1 spray INTRANASAL BID #15.8 ml 09/10/20 guaifenesin 1,200 mg tablet, extended release 12 hr 600 mg PO BID #60 tab 09/10/20 nitroglycerin 0.4 mg sublingual tablet 0.4 mg SUBLINGUAL PRN PRN #20 tab 09/10/20 aspirin 81 mg tablet,delayed release See Rx Instructions .ROUTE .COMPLEX #30 ea 09/14/20 ipratropium 20 mcg-albuterol 100 mcg/actuation mist for inhalation 1 puff INHALATION 4X/DAY PRN #4 g 10/28/20 Aripiprazole 5 mg PO DAILY 10/31/20 traZODone [Desyrel] 100 mg PO QHS 10/31/20 Furosemide 40 mg PO BID #60 tab 11/01/20 Losartan Potassium 25 mg PO DAILY #90 tab 11/01/20 Nifedipine [Nifedipine ER] 60 mg PO DAILY #180 tab 11/01/20
[2020-11-01] MEDS: 0.9% Saline Lock 10 ML Syringe IV (12:21)
--- NOTE | 2020-11-02 13:53 | CASEMGMT ---
CHITRA ALLISON Discharge F/U Phone Call LACE: 13 Strata: 3 Discharge date: 11/01/20 Call date: 11/02/20 Call time: 1353 Admission dx: Acute exac of HF Pt answers phone and states she was trying to sleep but the phone has been ringing off the hook. Pt states no questions regarding discharge instructions/medications at this time. Pt does state that she does not have a scale at home. Pt is agreeable to referral to CCN at this time after explanation of program done. Pt states has lab f/u on and PCP f/u as well and plans to keep. Pt voices no suggestions for [facility] at this time and states no further questions/concerns/needs at this time. This RN ESTEFANY is unable to place order for CCN at this time due to pt discharged but call to Issa at [facility] and referral given verbally over the phone at this time. Issa states she will call pt to set up CCN. Chadd BUENROSTRO CM
== END 2020-11-01 13:52 | disposition home or self-care (01) | DRG 194 ==
LOC: ED 04:03 → PCU 07:09
PROVIDERS: Admitting Provider Hospitalist; Emergency Provider Emergency Medicine; PCP Internal Medicine; Visit Provider Internal Medicine
DX: I13.0 Hypertensive heart and chronic kidney disease with heart failure and stage 1 through stage 4 chronic kidney disease, or unspecified chronic kidney disease (principal); I50.33 Acute on chronic diastolic (congestive) heart failure; N18.2 Chronic kidney disease, stage 2 (mild); N17.9 Acute kidney failure, unspecified; E03.9 Hypothyroidism, unspecified; E78.5 Hyperlipidemia, unspecified; F17.210 Nicotine dependence, cigarettes, uncomplicated; F20.9 Schizophrenia, unspecified; F31.9 Bipolar disorder, unspecified; G40.909 Epilepsy, unspecified, not intractable, without status epilepticus; G43.909 Migraine, unspecified, not intractable, without status migrainosus; G47.33 Obstructive sleep apnea (adult) (pediatric); I48.0 Paroxysmal atrial fibrillation; I95.1 Orthostatic hypotension; J44.9 Chronic obstructive pulmonary disease, unspecified; E78.00 Pure hypercholesterolemia, unspecified; K21.9 Gastro-esophageal reflux disease without esophagitis; I73.9 Peripheral vascular disease, unspecified; I35.1 Nonrheumatic aortic (valve) insufficiency; Z79.899 Other long term (current) drug therapy; Z79.82 Long term (current) use of aspirin; Z86.711 Personal history of pulmonary embolism; Z86.73 Personal history of transient ischemic attack (TIA), and cerebral infarction without residual deficits; Z87.19 Personal history of other diseases of the digestive system; Z87.448 Personal history of other diseases of urinary system
CPT/HCPCS: 36415; 71045; 80048; 83735; 83880; 84100; 84484; 85025; 93005; 94640; 94660; 97110; 97162; 97166; 97535; 97802; 99285; 99406; J7040; A4216; J1940

== ENCOUNTER 2020-11-03 17:04 | Emergency (ER) | payer MEDICAID, SELFPAY ==
[2020-10-31 06:52] VITALS: BMI 41.1
[2020-11-03 17:04] VITALS: BP 123/61; PULSE 70; PULSE 77; RESP 16; TEMP 36.7; O2SAT 97; O2SAT 98; BMI 41.8
[2020-11-03 17:16] VITALS: O2SAT 96
--- NOTE | 2020-11-03 17:41 | EKG12_ITS ---
Test Reason : CHF Blood Pressure : / mmHG Vent. Rate : 066 BPM Atrial Rate : 066 BPM P-R Int : 172 ms QRS Dur : 090 ms QT Int : 424 ms P-R-T Axes : 040 -20 017 degrees QTc Int : 444 ms Sinus rhythm with occasional Premature ventricular complexes Minimal voltage criteria for LVH, may be normal variant Cannot rule out Anterior infarct , age undetermined Abnormal ECG Confirmed by JOSEF SPEARS, BRENDA ([id number]), communications editor KIEL OSEGUERA ([id number]) on 11/09/2020 12:19:59 PM Referred By: MAN Confirmed By:BRENDA BAHENA MD
--- NOTE | 2020-11-03 17:41 | RAD_ITS ---
STUDY: X-RAY CHEST REASON FOR EXAM: Female, 55 years old. EDEMA, CHF, SOB, HTN, ASTHMA TECHNIQUE: One view COMPARISON: Prior chest radiograph of 10/31/2019 , 09/23/2020 FINDINGS: The visible lung jacobsen appear to be expanded and clear; however, the left diaphragm is not as visible as usual on this patient. The heart size appears increased compared to a comparable prior radiographs. Normal mediastinum and rosita. Normal visualized pulmonary arteries. Normal visualized aortic arch and descending thoracic aorta. Normal visualized thoracic spine. Normal visualized ribs, clavicles, and shoulders. There is no demonstrated abnormality of the visualized soft tissue structures of the upper abdomen. RAD/Chest 1 View (Portable) IMPRESSION: Increase in cardiac size compared to prior exams with possible airspace process in the retrocardiac left lung base which could be atelectasis, infiltrate or effusion. No other substantial changes. Electronically Signed: Chani Gómez MD at 18:10 EST , Service support ,
--- NOTE | 2020-11-03 17:43 | ED.DCSUM_ITS ---
- ER Visit Summary Date of Service: 11/03/20 Chief Complaint: [Shortness of breath and leg swelling] History of Present Illness: The patient is a 55 F [presents to the emergency department with complaint of shortness of breath and leg swelling that really worsened this morning when she woke up. Patient states that she was admitted recently to the hospital and discharged a couple days ago after being treated for CHF. Patient states that they took 10 pounds of water off of her. Patient states that she now weighs more than when she left the hospital and when she first arrived to the hospital the first time. Patient complains of exertional dyspnea and cough with exertion. She denies any fever. She denies any other Covid symptoms. No known Covid exposures otherwise. She does complain of some chest discomfort as a fullness or tightness. Not had any cardiac history otherwise such as stents although she does have some leaky valves she states. Patient has history of hypertension, asthma, COPD, CHF, paroxysmal A. fib, hypothyroidism, and schizophrenia.] Physical Examination: [HEENT-PERRLA, EOMI. Cranial nerves II through XII grossly intact. TMs clear. Mucous membranes moist. No adenopathy. Cardiovascular-regular rate and rhythm without murmur or ectopy Lungs-clear to auscultation, chest wall stable without crepitus or subcu emphysema Abdomen-normoactive bowel sounds, soft, nontender, no rebound or rigidity, no peritoneal signs. Extremities-intact ?4, normal range of motion, normal pulses, atraumatic]. Patient has trace edema both lower extremities. No pitting noted. Negative Homans' sign bilaterally. No ropes or cords palpated. Test Results: [EKG obtained on arrival showed a sinus rhythm with a ventricular rate of 66 bpm with minimal criteria for LVH noted. CBC with differential obtained showed a white of 6.8, hemoglobin 13, hematocrit 39, placed 254. Chemistries unremarkable. Troponin is less than 0.015. BNP was 22.8. Chest x- ray interpreted by myself as nothing significant or acute noted. Radiology felt the patient had increase in her cardiomegaly and questionable possible retrocardiac infiltrate versus atelectasis.] Emergency Department Course and Treatment: [Patient received Lasix 80 mg IV.] Patient was urinating in the department. She is not hypoxic she does not appear to be in any respiratory distress. I reviewed patient's echo from 12 days ago which showed an EF of 65% as well as mild to moderate tricuspid insufficiency and mild aortic valve calcification with +2 aortic valve insufficiency noted. Treatment Plan: [Patient to keep her appointment with her waiter/waitress first class tomorrow.] Disposition: [Discharged home in stable condition] Impression: [Edema of lower extremities Dyspnea-etiology uncertain] This note was generated with Sosh dictation software. It may contain incorrect words, spelling, and punctuation that were not noted in review of the chart prior to signing ED Disposition - Plan for ED Patient: Referrals: Scarlet Navarro MD [Primary Care Provider] -
[2020-11-03] MEDS: Furosemide 100 MG/10 ML Vial 80 MG IV (18:27)
[2020-11-03 19:03] LABS: Absolute Lymphocyte Count 1.55 X10^3/uL (0.83-4.51); Absolute Neutrophil Count 4.2 X10^3/uL (2.0-7.7); Basophil# 0.02 X10^3/uL; Basophil% 0.3 % (0-1); Eosinophil# 0.32 X10^3/uL; Eosinophils% 4.7 % (0-5); Hemoglobin 13.1 g/dL (12.0-15.0); Lymphocyte # 1.55 X10^3/ul (4.0); Lymphocyte % 22.7 % (19-41); Mean Corp Hgb Conc 33.6 g/dL (32-36); Mean Corpuscular Hgb 29.6 pg (27.0-32.0); Monocyte# 0.71 X10^3/uL; Monocyte% 10.4 % (0-10); NRBC Flagged by Analyzer 0 % (0-5); Neutrophil # 4.22 X10^3/uL (2.7-7.7); Neutrophil % 61.6 % (47-70); Platelet Count 254 K/mm3 (150-450); RBC Distribution Width CV 13.1 % (11.6-14.6); RBC Distribution Width SD 42.4 fl (35.1-43.9); Red Blood Count 4.43 M/mm3 (4.2-5.4); White Blood Count 6.8 K/mm3 (4.4-11.0)
[2020-11-03 19:21] LABS: Anion Gap 4 (5-15); BUN 28 mg/dL (7-18); BUN/Creat Ratio 27.5 RATIO (10-20); Calcium,Total 8.8 mg/dL (8.5-10.1); Chloride 105 mmol/L (98-107); Creatinine, Serum 1.02 mg/dL (0.55-1.02); EST Glomerular Filtration Rate 59 mL/min (>60); Est Glom Filt Rate - Afr Amer 72 mL/min (>60); Estimated Creatinine Clearance 53.18 ml/min; Glucose 105 mg/dL (74-106); Potassium 3.6 mmol/L (3.5-5.1); Sodium Level 135 mmol/L (136-145)
[2020-11-03 19:24] LABS: BNP,B-Type NATRIURETIC PEPTIDE 22.8 pg/mL (0-100)
[2020-11-03 19:26] VITALS: BP 132/57; PULSE 63; RESP 19; O2SAT 94
--- NOTE | 2020-11-03 19:35 | ED.DEP ---
ED Disposition - Plan for ED Patient: Instructions: ED Peripheral Edema, Bilateral Referrals: Scarlet Navarro MD [Primary Care Provider] - Antonio Maldonado MD [STAFF PHYSICIAN] - 1 Day
[2020-11-03 20:15] VITALS: RESP 20
== END 2020-11-03 20:15 | disposition home or self-care (01) ==
LOC: ED 17:55
PROVIDERS: Emergency Provider Emergency Medicine; PCP Internal Medicine
DX: R60.0 Localized edema (principal); R06.00 Dyspnea, unspecified; I11.0 Hypertensive heart disease with heart failure; I50.9 Heart failure, unspecified; I48.0 Paroxysmal atrial fibrillation; I35.1 Nonrheumatic aortic (valve) insufficiency; J44.9 Chronic obstructive pulmonary disease, unspecified; F20.9 Schizophrenia, unspecified; E03.9 Hypothyroidism, unspecified; Z79.82 Long term (current) use of aspirin; Z79.899 Other long term (current) drug therapy; Z72.0 Tobacco use
CPT/HCPCS: 71045; 80048; 83880; 84484; 85025; 93005; 96374; 99283; A4216; J1940

== ENCOUNTER → 2020-11-04 17:03 | Outpatient (CLI) | payer MEDICAID, SELFPAY ==
[2020-11-04 16:00] VITALS: BMI 41.1
[2020-11-04 18:06] LABS: Anion Gap 7 (5-15); BUN 26 mg/dL (7-18); BUN/Creat Ratio 22.2 RATIO (10-20); Chloride 103 mmol/L (98-107); Creatinine, Serum 1.17 mg/dL (0.55-1.02); EST Glomerular Filtration Rate 51 mL/min (>60); Est Glom Filt Rate - Afr Amer 61 mL/min (>60); Glucose 134 mg/dL (74-106); Magnesium 2.2 mg/dL (1.6-2.6); Potassium 3.3 mmol/L (3.5-5.1); Sodium Level 135 mmol/L (136-145)
== END ==
PROVIDERS: PCP Internal Medicine; Visit Provider Internal Medicine
DX: N18.30 Chronic kidney disease, stage 3 unspecified (principal)
CPT/HCPCS: 36415; 80048; 83735

== ENCOUNTER → 2020-11-08 14:21 | Outpatient (CLI) | payer MEDICAID, SELFPAY ==
[2020-11-08 14:21] VITALS: BMI 39.4
[2020-11-08 16:10] LABS: Anion Gap 5 (5-15); BUN 29 mg/dL (7-18); BUN/Creat Ratio 23.2 RATIO (10-20); Calcium,Total 9.5 mg/dL (8.5-10.1); Chloride 99 mmol/L (98-107); Creatinine, Serum 1.25 mg/dL (0.55-1.02); EST Glomerular Filtration Rate 47 mL/min (>60); Est Glom Filt Rate - Afr Amer 57 mL/min (>60); Glucose 81 mg/dL (74-106); Sodium Level 136 mmol/L (136-145)
== END ==
PROVIDERS: PCP Internal Medicine; Referring Provider Internal Medicine; Visit Provider Internal Medicine
DX: R60.0 Localized edema (principal); R06.02 Shortness of breath
CPT/HCPCS: 36415; 80048

== ENCOUNTER → 2020-11-22 12:14 | Outpatient (CLI) | payer MEDICAID, SELFPAY ==
[2020-11-08 14:21] VITALS: BMI 39.4
[2020-11-22 13:27] LABS: Anion Gap 5 (5-15); BUN 26 mg/dL (7-18); BUN/Creat Ratio 18.7 RATIO (10-20); Calcium,Total 9.4 mg/dL (8.5-10.1); Chloride 99 mmol/L (98-107); Creatinine, Serum 1.39 mg/dL (0.55-1.02); EST Glomerular Filtration Rate 42 mL/min (>60); Est Glom Filt Rate - Afr Amer 50 mL/min (>60); Glucose 100 mg/dL (74-106); Potassium 4.1 mmol/L (3.5-5.1); Sodium Level 133 mmol/L (136-145)
== END ==
PROVIDERS: PCP Internal Medicine; Referring Provider Internal Medicine; Visit Provider Internal Medicine
DX: N18.30 Chronic kidney disease, stage 3 unspecified (principal)
CPT/HCPCS: 36415; 80048

== ENCOUNTER → 2020-11-23 20:19 | Outpatient (CLI) | payer MEDICAID, SELFPAY ==
[2020-11-08 14:21] VITALS: BMI 39.4
== END ==
PROVIDERS: PCP Internal Medicine; Visit Provider Internal Medicine
DX: G47.33 Obstructive sleep apnea (adult) (pediatric) (principal)
CPT/HCPCS: 95811

== ENCOUNTER 2020-11-24 13:19 | Emergency (ER) | payer MEDICAID, SELFPAY ==
[2020-11-08 14:21] VITALS: BMI 39.4
[2020-11-24 13:23] VITALS: BP 155/69; PULSE 85; RESP 18; TEMP 37.1; O2SAT 96; BMI 42.5
[2020-11-24 13:26] VITALS: O2SAT 97
--- NOTE | 2020-11-24 13:35 | RAD_ITS ---
STUDY: X-RAY - RIGHT SHOULDER REASON FOR EXAM: Female, 55 years old. PATIENT FELL TODAY. PAIN IN RIGHT SHOULDER. TECHNIQUE: 2 view(s) of the shoulder. COMPARISON: Comparison is made with prior study dated 10/22/2018. FINDINGS: Normal glenohumeral articulation. Normal acromioclavicular joint. Normal acromion. Normal humeral head and visualized proximal humerus. The soft tissue structures are unremarkable. Normal visualized pulmonary apex. RAD/Shoulder min 2 Views IMPRESSION: Normal x-ray examination of the shoulder. Electronically Signed: Patrick Keita MD at 14:27 EST , Service support ,
--- NOTE | 2020-11-24 13:35 | CT_ITS ---
STUDY: CT BRAIN WITHOUT CONTRAST REASON FOR EXAM: Female, 55 years old. FELL ON ICE RADIATION DOSAGE (If Supplied By Facility): CTDIvol = ( 44.99 ) mGy, DLP = ( 829.85 ) mGycm TECHNIQUE: Transaxial CT imaging of the brain was performed without administration of intravenous contrast material. Individualized dose optimization techniques were used for this CT. COMPARISON: Comparison is made with prior study 07/18/2020. FINDINGS: Normal soft tissue structures. Normal calvarium. Normal size ventricles and extra-axial spaces for the patient''s age. Normal white matter tracts of the cerebral hemispheres. Normal basal ganglia and thalami. Normal brainstem. Normal cerebellum. There is no intracranial hemorrhage. There are no findings of an acute ischemic infarction. There is a 1.6 cm mucosal retention cyst or polyp along the inferior medial aspect of the right maxillary sinus. CT/Brain/Head without Contrast IMPRESSION: No acute abnormality is seen. Electronically Signed: Patrick Keita MD at 14:26 EST , Service support ,
--- NOTE | 2020-11-24 13:37 | ED.DCSUM_ITS ---
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 She states she got to her front door and slipped on some ice that was not visible to her. She landed on her right hip and that her right shoulder and struck her head. No loss of consciousness but she has had nausea. She states she crawled inside and remained there for the morning. She took some Tylenol. The patient states that because of the pain persistent nausea she decided to come to emergency. 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, non-epileptic Status: Chronic Comment: spells noted while undergoing EEG - not epileptic (11) Gastritis Status: Chronic Past Medical History - Allergies and Home Meds Allergies/Adverse Reactions: Allergies adhesive tape Allergy (Verified 11/24/20 13:26) Rash atropine sulfate [From ] Allergy (Verified 11/24/20 13:26) Hives codeine phosphate [From Tylenol-Codeine #3] Allergy (Verified 11/24/20 13:26) breathing problems divalproex sodium [From Depakote] Allergy (Verified 11/24/20 13:26) Unknown hydromorphone HCl [From Dilaudid] Allergy (Verified 11/24/20 13:26) facial blisters,itching hyoscyamine sulfate [From ] Allergy (Verified 11/24/20 13:26) Hives Iodinated Contrast Media [Iodinated Contrast Media - IV Dye] Allergy (Verified 11/24/20 13:26) breathing problems and my bp went up latex Allergy (Verified 11/24/20 13:26) Rash pantoprazole sodium [From Protonix] Allergy (Verified 11/24/20 13:26) Rash phenobarbital [From ] Allergy (Verified 11/24/20 13:26) Hives promethazine HCl [From Phenergan] Allergy (Verified 11/24/20 13:26) Anaphylaxis ramipril Allergy (Verified 11/24/20 13:26) Unknown scopolamine hydrobromide [From ] Allergy (Verified 11/24/20 13:26) Hives ziprasidone mesylate [From Geodon] Allergy (Verified 11/24/20 13:26) Unknown Sulfa (Sulfonamide Antibiotics) Adverse Reaction (Verified 11/24/20 13:26) Vomiting ziprasidone HCl [From Geodon] Adverse Reaction (Verified 11/24/20 13:26) tremors VIDODIN TUSS Allergy (Uncoded 11/24/20 13:26) Itching Amlodipine Adverse Reaction (Uncoded 11/24/20 13:26) Vomiting Primary Care Physician: Scarlet Navarro MD [Primary Care Provider] - As Needed Surgical History: - - Cholecystectomy, R carpal tunnel surgery, L foot surgery, Uterine suspension and bladder sling. Smoking Status: Current every day smoker Drugs: None - Family History Paternal Family History: Family History (Last Reviewed 11/04/20 @ 16:03 by Yazmin Ba) Sister Myocardial infarction Colon cancer Mother Hypertension Arthritis Brain aneurysm Sister Colon cancer Family History: Reports: No pertinent history Sibling Family History: Family History (Last Reviewed 11/04/20 @ 16:03 by Yazmin Ba) Sister Myocardial infarction Colon cancer Mother Hypertension Arthritis Brain aneurysm Sister Colon cancer Family History: Reports: Heart Disease Maternal Family History: Family History (Last Reviewed 11/04/20 @ 16:03 by Yazmin Ba) Sister Myocardial infarction Colon cancer Mother Hypertension Arthritis Brain aneurysm Sister Colon cancer Family History: Reports: Hypertension Review of Systems General: Denies: Chills, Fever, Sweats Eyes: Denies: Visual changes - bilaterally, Diplopia ENT: Denies: Rhinorrhea, Sore throat Cardiovascular: Denies: Chest pain, Palpitations Respiratory: Denies: Dyspnea, Cough, Dyspnea on exertion Gastrointestinal: Reports: Nausea. Denies: Abdominal pain, Vomiting, Diarrhea, Melena, Hematochezia Genitourinary: Denies: Dysuria, Hematuria, Frequency Musculoskeletal: Reports: Extremity Pain. Denies: Back pain Skin: Denies: Rash, Wounds Neurological: Reports: Headache. Denies: Weakness, Numbness Physical Exam Vital Signs/Narrative: Vital Signs Temp Pulse Resp BP Pulse Ox 11/24/20 13:26 97 11/24/20 13:23 98.7 F 85 18 155/69 H 96 Inital Vital Signs reviewed: Yes General: Well nourished, Well developed, Obese, No Acute Distress Head: Normocephalic, Atraumatic - Patient has some occipital scalp tenderness without hematoma or laceration noted. Eyes: Perrl, EOMI ENT: Moist mucous membranes, No rhinorrhea Neck: Supple, Nontender Cardiovascular: Regular rate, Regular rhythm, No murmurs Respiratory: No distress, CTA bilaterally, Chest nontender Abdomen: Soft, Nontender, Nondistended, Normal bowel sounds Back: Nontender, Normal Inspection Extremities: Tenderness - Patient of tenderness to palpation right shoulder without deformity or decreased range of motion. Tender palpation in the posterior right hip and buttock area. No significant ecchymosis seen. Skin: Normal color, No rash Neurological: Alert, Oriented x3, Cranial nerves II-XII grossly intact, Normal Strength, Normal Sensation Psychological: Normal affect, Normal Mood Diagnostic/Tx/Re-eval Clinical Impression(s) from Imaging Studies Brain CT 11/24/20 13:35 IMPRESSION: No acute abnormality is seen. Electronically Signed: Patrick Keita MD at 14:26 EST , Service support , Shoulder X-Ray 11/24/20 13:35 IMPRESSION: Normal x-ray examination of the shoulder. Electronically Signed: Patrick Keita MD at 14:27 EST , Service support , Hip/Pelvis X-Ray 11/24/20 14:00 IMPRESSION: Mild degree of degenerative changes. No fracture or dislocation is seen. Electronically Signed: Patrick Keita MD at 14:28 EST , Service support , - Medical Decision Making X-rays of the right hip and pelvis and shoulder were obtained. My interpretation of the studies are no acute fracture. CT of the head was obtained which was negative for fracture. Patient received oxycodone for pain. I can write for her to have a few oxycodone at home and some Zofran. Recommend rest and to expect soreness but she should make a full recovery. ED Disposition - Plan for ED Patient: Disposition: Home or Assisted Living Diagnosis: Contusion of right hip, Contusion of right shoulder, Scalp contusion, Fall due to ice or snow Instructions: ED Contusion, Lower Extremity Prescriptions: Oxycodone HCl/Acetaminophen [Percocet 5/325] 1 tab PO Q6H PRN PRN 3 Days #12 tab PRN Reason: Pain Prescription Printed Referrals: Scarlet Navarro MD [Primary Care Provider] - As Needed
--- NOTE | 2020-11-24 14:00 | RAD_ITS ---
STUDY: X-RAY - PELVIS AND RIGHT HIP REASON FOR EXAM: Female, 55 years old. PATIENT FELL TODAY. PAIN IN RIGHT HIP. TECHNIQUE: 3 views of the pelvis and hip. COMPARISON: None. FINDINGS: There is a non-specific bowel gas pattern. Normal visualized soft tissue structures. Normal bilateral iliac wings, sacroiliac joints and visualized sacrum. Normal bilateral superior and inferior pubic rami. Normal pubic symphysis. Normal bilateral ischial tuberosities. Normal visualized femoral head. There is osteoarthritic spur formation of the acetabular rim. There is mild articular joint space narrowing of the hip. RAD/HIP, UNI W/ Pelvis 2-3 Views IMPRESSION: Mild degree of degenerative changes. No fracture or dislocation is seen. Electronically Signed: Patrick Keita MD at 14:28 EST , Service support ,
[2020-11-24] MEDS: oxyCODONE 5 MG Tablet 10 MG PO (14:16)
[2020-11-24 14:39] VITALS: RESP 17; O2SAT 95
== END 2020-11-24 14:39 | disposition home or self-care (01) ==
PROVIDERS: Emergency Provider Emergency Medicine; PCP Internal Medicine
DX: S70.01XA Contusion of right hip, initial encounter (principal); S40.011A Contusion of right shoulder, initial encounter; S00.03XA Contusion of scalp, initial encounter; W00.0XXA Fall on same level due to ice and snow, initial encounter; Y93.9 Activity, unspecified; Y92.9 Unspecified place or not applicable; E66.9 Obesity, unspecified; I35.1 Nonrheumatic aortic (valve) insufficiency; I48.0 Paroxysmal atrial fibrillation; I12.9 Hypertensive chronic kidney disease with stage 1 through stage 4 chronic kidney disease, or unspecified chronic kidney disease; N18.30 Chronic kidney disease, stage 3 unspecified; J44.9 Chronic obstructive pulmonary disease, unspecified; F20.9 Schizophrenia, unspecified; E78.5 Hyperlipidemia, unspecified; E03.9 Hypothyroidism, unspecified; G43.909 Migraine, unspecified, not intractable, without status migrainosus; Z87.19 Personal history of other diseases of the digestive system; Z79.82 Long term (current) use of aspirin; Z79.899 Other long term (current) drug therapy; F17.200 Nicotine dependence, unspecified, uncomplicated
CPT/HCPCS: 70450; 73030; 73502; 99284

== ENCOUNTER 2020-12-20 10:13 | Observation (INO) | payer MEDICAID, SELFPAY ==
[2020-12-20] VITALS (14 sets, daily range): BP systolic 120–173; BP diastolic 48–85; PULSE 60–86; RESP 16–23; TEMP 36.4–36.7; O2SAT 92–98; BMI 42.9; BMI 43.7; BMI 42.8
--- NOTE | 2020-12-20 10:21 | EKG12_ITS ---
Test Reason : NEURO S/SX Blood Pressure : / mmHG Vent. Rate : 069 BPM Atrial Rate : 069 BPM P-R Int : 160 ms QRS Dur : 094 ms QT Int : 412 ms P-R-T Axes : 036 -17 014 degrees QTc Int : 441 ms Normal sinus rhythm Minimal voltage criteria for LVH, may be normal variant Poor R wave progression Borderline ECG Confirmed by CHARLENE SPEARS, JAZMYNE ([id number]), news editor ANAND HSIEH ([id number]) on 12/22/2020 10:59:17 AM Referred By: ARTI Confirmed By:JAZMYNE CHANG MD
--- NOTE | 2020-12-20 10:21 | CT_ITS ---
We are attempting to reach an attending provider to discuss findings. An addendum with communication details will be sent when the communication is complete. STUDY: CT HEAD STROKE PROTOCOL W/O CONTRAST INJECTION REASON FOR EXAM: Female, 55 years old. Neuro deficit, acute, stroke suspected TECHNIQUE: Transaxial CT imaging of the brain was performed without administration of intravenous contrast material. Individualized dose optimization techniques were used for this CT. COMPARISON: No relevant priors. FINDINGS: Normal soft tissue structures. Normal calvarium. Normal size ventricles and extra-axial spaces for the patient''s age. Normal white matter tracts of the cerebral hemispheres. Normal basal ganglia and thalami. Normal brainstem. Normal cerebellum. Hyperdense left MCA may represent a blood clot. There is no intracranial hemorrhage. There are no findings of an acute ischemic infarction. Normal visualized paranasal sinuses. CT/STROKE Brain/Head without Cont IMPRESSION: Hyperdense left MCA. Electronically Signed: Madhu England MD at 10:59 EST Tel , Service support ,
--- NOTE | 2020-12-20 10:22 | RAD_ITS ---
STUDY: X-RAY CHEST REASON FOR EXAM: Female, 55 years old. Neuro deficit, acute, stroke suspected TECHNIQUE: Single AP portable view of the chest. COMPARISON: None. FINDINGS: The lungs are clear and expanded. There is no demonstrated pleural abnormality. There is mild cardiac enlargement. Normal mediastinum and rosita. Normal visualized pulmonary arteries. Normal visualized aortic arch and descending thoracic aorta. Normal visualized thoracic spine. Normal visualized ribs, clavicles, and shoulders. There is no demonstrated abnormality of the visualized soft tissue structures of the upper abdomen. RAD/Chest 1 View IMPRESSION: Mild cardiomegaly. Electronically Signed: Madhu England MD at 11:23 EST Tel , Service support ,
--- NOTE | 2020-12-20 10:24 | ED.VIS.GEN ---
History of Present Illness Chief Complaint: Neuro S/Sx Informant: Patient Onset: Yesterday Context: Onset with activity Timing: Continuous Current Severity: Moderate Maximum Severity: Moderate Narrative: The patient is a 55-year-old female with medical history significant for hypertension, hyperlipidemia, prior stroke, and underlying psychiatric illness that presents to the emergency department with weakness. She states when she woke yesterday morning, she noticed that her right face was drooping. She states it also felt like her right side arm and leg felt very heavy. She states that they have been clumsy. She states is been constant for greater than 24 hours. She also states that she has had some difficulty with word finding. Patient does have history of prior stroke and has received TPA twice. She is had resultant MRIs which showed no large stroke. She also has a history of conversion disorder. She does describe some shortness of breath and cough. She denies fevers or chills. Prior similar symptoms: Yes Recent Illness/Hospitalization: No Past Medical History - Allergies and Home Meds Allergies/Adverse Reactions: Allergies adhesive tape Allergy (Verified 12/20/20 10:15) Rash atropine sulfate [From ] Allergy (Verified 12/20/20 10:15) Hives codeine phosphate [From Tylenol-Codeine #3] Allergy (Verified 12/20/20 10:15) breathing problems divalproex sodium [From Depakote] Allergy (Verified 12/20/20 10:15) Unknown hydromorphone HCl [From Dilaudid] Allergy (Verified 12/20/20 10:15) facial blisters,itching hyoscyamine sulfate [From ] Allergy (Verified 12/20/20 10:15) Hives Iodinated Contrast Media [Iodinated Contrast Media - IV Dye] Allergy (Verified 12/20/20 10:15) breathing problems and my bp went up latex Allergy (Verified 12/20/20 10:15) Rash pantoprazole sodium [From Protonix] Allergy (Verified 12/20/20 10:15) Rash phenobarbital [From ] Allergy (Verified 12/20/20 10:15) Hives promethazine HCl [From Phenergan] Allergy (Verified 12/20/20 10:15) Anaphylaxis ramipril Allergy (Verified 12/20/20 10:15) Unknown scopolamine hydrobromide [From ] Allergy (Verified 12/20/20 10:15) Hives ziprasidone mesylate [From Geodon] Allergy (Verified 12/20/20 10:15) Unknown Sulfa (Sulfonamide Antibiotics) Adverse Reaction (Verified 12/20/20 10:15) Vomiting ziprasidone HCl [From Geodon] Adverse Reaction (Verified 12/20/20 10:15) tremors VIDODIN TUSS Allergy (Uncoded 12/20/20 10:15) Itching Amlodipine Adverse Reaction (Uncoded 12/20/20 10:15) Vomiting Primary Care Physician: Scarlet Nvaarro MD [Primary Care Provider] - Prior records reviewed: Yes Past Medical History: - - Hypertension, hyperlipidemia, psychiatric disease, stroke Surgical History: noncontributory, - - Cholecystectomy, R carpal tunnel surgery, L foot surgery, Uterine suspension and bladder sling. Smoking Status: Current every day smoker - Family History Paternal Family History: Family History (Last Reviewed 11/04/20 @ 16:03 by Yazmin Ba) Sister Myocardial infarction Colon cancer Mother Hypertension Arthritis Brain aneurysm Sister Colon cancer Family History: Reports: No pertinent history Sibling Family History: Family History (Last Reviewed 11/04/20 @ 16:03 by Yazmin Ba) Sister Myocardial infarction Colon cancer Mother Hypertension Arthritis Brain aneurysm Sister Colon cancer Family History: Reports: Heart Disease Maternal Family History: Family History (Last Reviewed 11/04/20 @ 16:03 by Yazmin Ba) Sister Myocardial infarction Colon cancer Mother Hypertension Arthritis Brain aneurysm Sister Colon cancer Family History: Reports: Hypertension Review of Systems General: Denies: Chills, Fever, Sweats Eyes: Denies: Visual changes - bilaterally, Diplopia ENT: Denies: Rhinorrhea, Sore throat Cardiovascular: Denies: Chest pain, Palpitations Respiratory: Denies: Dyspnea, Cough, Dyspnea on exertion Gastrointestinal: Denies: Abdominal pain, Nausea, Vomiting, Diarrhea, Melena, Hematochezia Genitourinary: Denies: Dysuria, Hematuria, Frequency Musculoskeletal: Denies: Back pain, Extremity Pain Skin: Denies: Rash, Wounds Neurological: Reports: Weakness. Denies: Headache, Numbness Physical Exam Vital Signs/Narrative: Vital Signs Temp Pulse Resp BP Pulse Ox 03/08/21 10:15 98.0 F 86 16 173/85 H 98 Inital Vital Signs reviewed: Yes General: Well nourished, Well developed, No Acute Distress Head: Normocephalic, Atraumatic Eyes: Perrl, EOMI ENT: Moist mucous membranes, No rhinorrhea Neck: Supple, Nontender Cardiovascular: Regular rate, Regular rhythm, No murmurs Respiratory: No distress, CTA bilaterally, Chest nontender Abdomen: Soft, Nontender, Nondistended, Normal bowel sounds Back: Nontender, Normal Inspection Extremities: Nontender, No edema Skin: Normal color, No rash Neurological: Alert, Oriented x3, Normal Sensation, Weakness - Weakness of right upper arm and leg. Seems effort dependent. Slight facial droop on the right., Right side facial droop Psychological: Normal affect, Normal Mood Diagnostic/Tx/Re-eval Chest X-Ray - ED: 1 View, Read by ED Physician, Normal, Lungs, Mediastinum, Cardiomegaly Clinical Impression(s) from Imaging Studies Brain CT 12/20/20 10:21 IMPRESSION: Hyperdense left MCA. Electronically Signed: Madhu England MD at 10:59 EST Tel , Service support , ADDENDUM: 12/20/20 1113 IMPRESSION: Hyperdense left MCA. N.B. : The above information has been verbally conveyed by Madhu England MD to HERO Ball, on 12/20/2020 11:06:31 (ET). Electronically Signed: Madhu England MD at 10:59 EST Tel , Service support , Chest X-Ray 12/20/20 10:22 IMPRESSION: Mild cardiomegaly. Electronically Signed: Madhu England MD at 11:23 EST Tel , Service support , Head/Neck CTA 12/20/20 11:04 IMPRESSION: Normal CTA Head and neck with contrast. Electronically Signed: Madhu England MD at 12:57 EST Tel , Service support , Abnormal Lab Results 12/20/20 12/20/20 12/20/20 10:30 10:30 10:30 WBC 6.1 RBC 4.87 Hgb 14.6 Hct 43.1 MCV 88.5 MCH 30.0 MCHC 33.9 RDW Std Deviation 42.7 RDW Coeff of Yonathan 13.2 Plt Count 260 MPV 10.1 Immature Gran % (Auto) 0.700 Neut % (Auto) 59.8 Lymph % (Auto) 25.4 Tift % (Auto) 9.3 Eos % (Auto) 4.3 Baso % (Auto) 0.5 Absolute Neuts (auto) 3.7 Absolute Lymphs (auto) 1.55 Nucleated RBC % 0 PT 11.6 L INR 0.9 APTT 25.7 Sodium 137 Potassium 3.8 Chloride 101 Carbon Dioxide 29.0 Anion Gap 7 BUN 21 H Creatinine 1.20 H Estim Creat Clear Calc 45.20 Est GFR (MDRD) Af Amer 60 Est GFR (MDRD) Non-Af 49 L BUN/Creatinine Ratio 17.5 Glucose 104 Calcium 9.3 Troponin I < 0.015 Urine Opiates Screen Urine Methadone Screen Ur Barbiturates Screen Ur Phencyclidine Scrn Ur Amphetamines Screen U Methamphetamin-MDMA U Benzodiazepines Scrn Urine Cocaine Screen U Cannabinoids Screen Ur Drug Screen Comment POC Glucose 12/20/20 12/20/20 10:33 12:20 WBC RBC Hgb Hct MCV MCH MCHC RDW Std Deviation RDW Coeff of Yonathan Plt Count MPV Immature Gran % (Auto) Neut % (Auto) Lymph % (Auto) Tift % (Auto) Eos % (Auto) Baso % (Auto) Absolute Neuts (auto) Absolute Lymphs (auto) Nucleated RBC % PT INR APTT Sodium Potassium Chloride Carbon Dioxide Anion Gap BUN Creatinine Estim Creat Clear Calc Est GFR (MDRD) Af Amer Est GFR (MDRD) Non-Af BUN/Creatinine Ratio Glucose Calcium Troponin I Urine Opiates Screen NEGATIVE Urine Methadone Screen NEGATIVE Ur Barbiturates Screen NEGATIVE Ur Phencyclidine Scrn NEGATIVE Ur Amphetamines Screen NEGATIVE U Methamphetamin-MDMA NEGATIVE U Benzodiazepines Scrn NEGATIVE Urine Cocaine Screen NEGATIVE U Cannabinoids Screen NEGATIVE Ur Drug Screen Comment POC Glucose 99 - Rhythm Strip Rhythm Strip: Sinus Rhythm Rate: 80 Ectopy: None - EKG Initial EKG Interpretation: Sinus Rhythm, No Acute Injury Pattern Prior: Unchanged - Medical Decision Making On arrival, the patient has an NIH of 5. However, stroke team was not activated. The patient does have a symptoms for at least 30 hours and is outside the window for TPA or even intra-arterial retrieval. The patient underwent noncontrast head CT. This was read as the radiologist is concerning for a hyperdense left MCA. With this, the patient underwent CTA. We did have to premedicate given her history of reaction to IV contrast. Labs were obtained and were unremarkable. CTA does not show evidence of acute occlusion the patient's NIH would wax and wane. At times, she said she could not move her right side but then would pharmacy picking tech her glasses or her phone. She does have history of conversion disorder, but is also had stroke before. I do feel that the most prudent plan of care would be to observe the patient for MRI. Patient was discussed with the hospitalist. Impression 1. Right-sided weakness ED Disposition - Plan for ED Patient: Referrals: Scarlet Navarro MD [Primary Care Provider] -
[2020-12-20 10:38] LABS: Absolute Lymphocyte Count 1.55 X10^3/uL (0.83-4.51); Absolute Neutrophil Count 3.7 X10^3/uL (2.0-7.7); Basophil# 0.03 X10^3/uL; Basophil% 0.5 % (0-1); Eosinophil# 0.26 X10^3/uL; Eosinophils% 4.3 % (0-5); Hematocrit 43.1 % (37-47); Hemoglobin 14.6 g/dL (12.0-15.0); Lymphocyte # 1.55 X10^3/ul (4.0); Lymphocyte % 25.4 % (19-41); Mean Corp Hgb Conc 33.9 g/dL (32-36); Mean Corpuscular Volume 88.5 fL (81-99); Mean Platelet Vol. 10.1 fl (6.2-12.0); Monocyte# 0.57 X10^3/uL; Monocyte% 9.3 % (0-10); NRBC Flagged by Analyzer 0 % (0-5); Neutrophil # 3.66 X10^3/uL (2.7-7.7); Neutrophil % 59.8 % (47-70); Platelet Count 260 K/mm3 (150-450); RBC Distribution Width CV 13.2 % (11.6-14.6); RBC Distribution Width SD 42.7 fl (35.1-43.9); Red Blood Count 4.87 M/mm3 (4.2-5.4); White Blood Count 6.1 K/mm3 (4.4-11.0)
[2020-12-20 10:41] LABS: Bedside Glucose 99 mg/dL (70-110)
[2020-12-20 10:55] LABS: Anion Gap 7 (5-15); BUN 21 mg/dL (7-18); BUN/Creat Ratio 17.5 RATIO (10-20); Calcium,Total 9.3 mg/dL (8.5-10.1); Chloride 101 mmol/L (98-107); EST Glomerular Filtration Rate 49 mL/min (>60); Est Glom Filt Rate - Afr Amer 60 mL/min (>60); Glucose 104 mg/dL (74-106); Potassium 3.8 mmol/L (3.5-5.1); Sodium Level 137 mmol/L (136-145)
--- NOTE | 2020-12-20 11:04 | CT_ITS ---
STUDY: CTA HEAD AND NECK WITH CONTRAST REASON FOR EXAM: Female, 55 years old. stroke RADIATION DOSAGE (If Supplied By Facility): CTDIvol = ( 20.51 ) mGy, DLP = ( 721.46 ) mGycm TECHNIQUE: CT angiography was performed with a multi-detector CT scanner. Data acquisition was obtained from the skull base through the vertex following intravenous administration of IV 100mL [id number]-[id number]. MIP images were reconstructed from the axial data set. Post-processing of the angiographic images was performed, with multiplanar reformation and 3D reconstruction. Individualized dose optimization techniques were used for this CT. COMPARISON: No relevant priors. FINDINGS: Normal bilateral petrous carotid arteries. Normal right cavernous carotid artery with a normal supraclinoid bifurcation. Normal left cavernous carotid artery with a normal supraclinoid bifurcation. Normal right A1 segments of the anterior cerebral artery. Normal left A1 segments of the anterior cerebral artery. Normal intact anterior communicating artery (ACOM). Normal bilateral A2 segments of the anterior cerebral arteries. Normal right M1 and M2 segments of the middle cerebral arteries, with a normal M1 bifurcation. Normal left M1 and M2 segments of the middle cerebral arteries, with a normal M1 bifurcation. There is a persistent origin of the right posterior cerebral artery with absence of the posterior communicating artery (PCOM). Normal left posterior communicating artery (PCOM). Normal bilateral vertebral arteries. Normal basilar artery with a normal basilar bifurcation. The visualized bilateral superior cerebellar (SCA) arteries are normal. Normal bilateral P1, P2 and visualized P3 segments of the posterior cerebral arteries. There is no demonstrated aneurysm of the [place]. There is no demonstrated abnormality of the visualized brain. AORTIC ARCH: Normal visualized aortic arch. Normal origins of the brachiocephalic, left common carotid, and left subclavian arteries. RIGHT CAROTID ARTERIES: Normal right common carotid artery (CCA). Normal right common carotid bulb. Normal origin of the right internal carotid (ICA) artery without a hemodynamically significant stenosis. Normal visualized cervical portion of the right internal carotid artery. Normal origin of the right external carotid artery (ECA). LEFT CAROTID ARTERIES: Normal left common carotid artery (CCA). Normal left common carotid bulb. Normal origin of the left internal carotid (ICA) artery without a hemodynamically significant stenosis. Normal visualized cervical portion of the left internal carotid artery. Normal origin of the left external carotid artery (ECA). VERTEBRAL ARTERIES: Normal bilateral vertebral arteries. CT/CTA Head AND Neck W/ Contrast IMPRESSION: Normal CTA Head and neck with contrast. Electronically Signed: Madhu England MD at 12:57 EST Tel , Service support ,
[2020-12-20 11:16] LABS: International Normalized Ratio 0.9; Prothrombin Time (Protime)PT. 11.6 SECONDS (11.7-14.9)
[2020-12-20 11:17] LABS: Partial Thromboplast Time 25.7 Seconds (24.1-36.2)
[2020-12-20] MEDS: DiphenhydrAMINE 50 MG/ML Syringe 25 MG IV (11:25)
[2020-12-20] MEDS: MethylPREDNISolone 125 MG/2 ML Vial IV (11:25)
[2020-12-20] MEDS: Famotidine 200 MG/20 ML MDV 20 MG in 0.9% Normal Saline (Pres. free 8 ML 300 MG IV (11:26)
[2020-12-20 12:51] LABS: Amphetamine Urine VISTA NEGATIVE (<1000 ng/mL); Barbiturate Urine VISTA NEGATIVE (< 200 ng/mL); Benzodiazepine Urine VISTA NEGATIVE (< 200 ng/mL); Cocaine Urine VISTA NEGATIVE (< 300 ng/mL); Ecstacy Urine VISTA NEGATIVE (< 500 ng/mL); Methadone Urine VISTA NEGATIVE (< 300 ng/mL); PCP Urine VISTA NEGATIVE (< 25 ng/mL); THC Urine VISTA NEGATIVE (< 50 ng/mL); Vista UDS pH Range 5
--- NOTE | 2020-12-20 13:53 | PCM.HP.STD ---
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 (6) Convulsion, non-epileptic Status: Chronic Comment: spells noted while undergoing EEG - not epileptic (7) COPD, mild Status: Chronic (8) Depression Status: Chronic Qualifiers: Depression Type: unspecified Qualified Code(s): F32.9 - Major depressive disorder, single episode, unspecified (9) Gastritis Status: Chronic (10) Heart failure Status: Chronic Qualifiers: Heart failure type: diastolic Heart failure chronicity: chronic Qualified Code(s): I50.32 - Chronic diastolic (congestive) heart failure (11) HLD (hyperlipidemia) Status: Chronic Qualifiers: Hyperlipidemia type: unspecified Qualified Code(s): E78.5 - Hyperlipidemia, unspecified (12) HTN (hypertension) Status: Chronic Qualifiers: Hypertension type: essential hypertension Qualified Code(s): I10 - Essential (primary) hypertension (13) Hypokalemia Status: Chronic (14) Hyponatremia Status: Chronic (15) Hypothyroidism Status: Chronic Qualifiers: Hypothyroidism type: unspecified Qualified Code(s): E03.9 - Hypothyroidism, unspecified (16) Intertriginous dermatitis associated with moisture Status: Chronic (17) Migraine Status: Chronic Qualifiers: Migraine type: unspecified Status migrainosus presence: without status migrainosus Intractability: not intractable Qualified Code(s): G43.909 - Migraine, unspecified, not intractable, without status migrainosus (18) Non-rheumatic mitral regurgitation Status: Acute (19) Nonrheumatic aortic (valve) insufficiency Status: Chronic (20) Orthostatic hypotension Status: Chronic (21) PAF (paroxysmal atrial fibrillation) Status: Chronic (22) Psychosis Status: Chronic (23) Right hip pain Status: Chronic (24) Schizophrenia Status: Chronic (25) Tobacco use Status: Chronic History of Present Illness Date of Admission: 12/20/20 Ms. Owens is a 55 year old WF with a past medical history of asthma/COPD, CKD stage II-III, conversion disorder, nonepileptic seizures, depression, GERD, HFpEF, hyperlipidemia, hypertension, hypothyroidism, migraines, DAPHNE(noncompliant with CPAP), PAF, psychosis, remote pulmonary embolism, schizophrenia, stroke status post tPA, and current tobacco abuse who presented to the emergency department [facility] on 01/09/2021 primary complaint of right-sided weakness and right facial droop. The patient reported her symptoms started yesterday morning to the emergency department but upon my arrival when I asked her why she presented to the emergency department she states she could not remember. To me she complained of sore throat headache and asked me why she wheezes when she breathes. Later on during my exam she started complaining about right-sided weakness and right facial droop. Upon questioning from the emergency department physicians he states that this has been constant for greater than 24 hours and she thought she had difficulty with memory and word finding. She does have reported history of stroke status post TPA twice and resultant MRIs that show no stroke. She has a history of conversion disorder and pseudoseizures. I was in the emergency department was stable oxygen saturations were 95 to 97% on room air. Her CBC was completely unremarkable. Her coags were normal. BMP showed normal electrolytes with a mildly elevated BUN and creatinine which appear baseline when compared with previous laboratory data. Her troponin was negative. Tox screen was negative. EKG was unremarkable and normal sinus rhythm. CT showed hyperdense left MCA and secondary to this read a CTA of her head and neck was done. The study was normal. Recent echocardiogram done in October 2020 that showed a normal EF at 65% and no diastolic dysfunction, RV pressures were 29 mmHg, she does have a PFO she has moderate (2+) aortic valve insufficiency. We admitted to PCU for further stroke work-up. Past Medical History Past Medical History (Chronic Problems): Chronic Problems (Last Reviewed 11/04/20 @ 16:03 by Yazmin Ba) CKD (chronic kidney disease) stage 2, GFR 60-89 ml/min (Chronic) Nonrheumatic aortic (valve) insufficiency (Chronic) Orthostatic hypotension (Chronic) Psychosis (Chronic) Heart failure (Chronic) Intertriginous dermatitis associated with moisture (Chronic) Right hip pain (Chronic) Hyponatremia (Chronic) Hypokalemia (Chronic) PAF (paroxysmal atrial fibrillation) (Chronic) HTN (hypertension) (Chronic) HLD (hyperlipidemia) (Chronic) Hypothyroidism (Chronic) CKD (chronic kidney disease) stage 3, GFR 30-59 ml/min (Chronic) Migraine (Chronic) Asthma (Chronic) Tobacco use (Chronic) Depression (Chronic) COPD, mild (Chronic) Schizophrenia (Chronic) Convulsion, 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 Gastritis (Chronic) Conversion disorder with abnormal movement (Chronic) Medical History: Medical History (Last Reviewed 12/20/20 @ 14:[address] Afshan Salamanca, DO) Nonrheumatic aortic (valve) insufficiency (Chronic) I35.1 Non-rheumatic mitral regurgitation (Acute) I34.0 Orthostatic hypotension (Chronic) I95.1 Psychosis (Chronic) F29 Heart failure (Chronic) I50.9 Intertriginous dermatitis associated with moisture (Chronic) L30.4 Right hip pain (Chronic) M25.551 Hyponatremia (Chronic) E87.1 Hypokalemia (Chronic) E87.6 PAF (paroxysmal atrial fibrillation) (Chronic) I48.0 HTN (hypertension) (Chronic) I10 HLD (hyperlipidemia) (Chronic) E78.5 Hypothyroidism (Chronic) E03.9 CKD (chronic kidney disease) stage 3, GFR 30-59 ml/min (Chronic) N18.3 Migraine (Chronic) G43.909 Asthma (Chronic) J45.909 Tobacco use (Chronic) Z72.0 Depression (Chronic) F32.9 COPD, mild (Chronic) J44.9 Schizophrenia (Chronic) F20.9 Convulsion, 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 Gastritis (Chronic) K29.70 Conversion disorder with abnormal movement (Chronic) F44.4 DAPHNE (obstructive sleep apnea) G47.33 Osteoarthritis M19.90 Peripheral artery disease I73.9 Pulmonary embolism I26.December Schizo NEC, chrn/exacerb F20.89 Stroke I63.23 August 2019 Aortic valve insufficiency I35.1 Arthralgia of right hip M25.551 Asthma J45.909 Bipolar 1 disorder F31.9 CKD (chronic kidney disease) N18.9 Enlarged aorta I77.89 GERD (gastroesophageal reflux disease) K21.9 Migraines G43.909 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 Hip dislocation, right S73.004A Chest pain R07.9 Chest pain R07.9 Conversion disorder F44.9 Cyst Hypertensive crisis without congestive heart failure I16.9 Left arm swelling M79.89 Allergies adhesive tape Allergy (Verified 12/20/20 10:15) Rash atropine sulfate [From ] Allergy (Verified 12/20/20 10:15) Hives codeine phosphate [From Tylenol-Codeine #3] Allergy (Verified 12/20/20 10:15) breathing problems divalproex sodium [From Depakote] Allergy (Verified 12/20/20 10:15) Unknown hydromorphone HCl [From Dilaudid] Allergy (Verified 12/20/20 10:15) facial blisters,itching hyoscyamine sulfate [From ] Allergy (Verified 12/20/20 10:15) Hives Iodinated Contrast Media [Iodinated Contrast Media - IV Dye] Allergy (Verified 12/20/20 10:15) breathing problems and my bp went up latex Allergy (Verified 12/20/20 10:15) Rash pantoprazole sodium [From Protonix] Allergy (Verified 12/20/20 10:15) Rash phenobarbital [From ] Allergy (Verified 12/20/20 10:15) Hives promethazine HCl [From Phenergan] Allergy (Verified 12/20/20 10:15) Anaphylaxis ramipril Allergy (Verified 12/20/20 10:15) Unknown scopolamine hydrobromide [From ] Allergy (Verified 12/20/20 10:15) Hives ziprasidone mesylate [From Geodon] Allergy (Verified 12/20/20 10:15) Unknown Sulfa (Sulfonamide Antibiotics) Adverse Reaction (Verified 12/20/20 10:15) Vomiting ziprasidone HCl [From Geodon] Adverse Reaction (Verified 12/20/20 10:15) tremors VIDODIN TUSS Allergy (Uncoded 12/20/20 10:15) Itching Amlodipine Adverse Reaction (Uncoded 12/20/20 10:15) Vomiting Home Medications: Ambulatory Orders Medication Instructions Recorded traMADol [Ultram] 50 mg PO Q6H PRN PRN 02/24/19 Gabapentin [Neurontin] 300 mg PO BID 09/06/19 Oxcarbazepine 1 tab PO QHS 09/06/19 Hydroxyzine Pamoate [Vistaril] 50 mg PO Q6H PRN 10/18/19 levothyroxine 50 mcg tablet 50 mcg PO DAILY #90 tab 12/16/19 albuterol sulfate 2.5 mg INHALATION Q6H PRN #75 ml 12/17/19 cholecalciferol (vitamin D3) 1,250 50,000 unit PO QWEEK 90 Days #14 01/19/20 mcg (50,000 unit) capsule cap melatonin 10 mg capsule 10 mg PO QHS #90 cap 01/19/20 guaifenesin 1,200 mg tablet, 600 mg PO BID #60 tab 09/10/20 extended release 12 hr nitroglycerin 0.4 mg sublingual 0.4 mg SUBLINGUAL PRN PRN #20 tab 09/10/20 tablet aspirin 81 mg tablet,delayed See Rx Instructions .ROUTE 09/14/20 release .COMPLEX #30 ea ipratropium 20 mcg-albuterol 100 1 puff INHALATION 4X/DAY PRN #4 g 10/28/20 mcg/actuation mist for inhalation Aripiprazole 5 mg PO DAILY 10/31/20 traZODone [Desyrel] 100 mg PO QHS 10/31/20 hydralazine 50 mg tablet 50 mg PO TID 90 Days #270 tab 11/04/20 losartan 100 mg tablet 50 mg PO DAILY #90 tab 11/04/20 nifedipine 60 mg tablet,extended 30 mg PO DAILY #180 tab 11/04/20 release 24 hr spironolactone 25 mg tablet 25 mg PO DAILY #90 tab 11/04/20 furosemide 40 mg tablet 40 mg PO .COMPLEX #270 tab 11/09/20 budesonide-formoterol HFA 160 See Rx Instructions .ROUTE 11/18/20 mcg-4.5 mcg/actuation aerosol .COMPLEX #10.2 g inhaler fluticasone propionate 50 See Rx Instructions .ROUTE 11/30/20 mcg/actuation nasal .COMPLEX #16 gram spray,suspension loratadine 10 mg tablet See Rx Instructions .ROUTE 11/30/20 .COMPLEX #90 tab Surgical History: Surgical History (Last Reviewed 12/20/20 @ 14:[address] Afshan Salamanca, DO) History of uterine suspension procedure Z87.448 Hx of cholecystectomy Z98.890, Z90.49 S/P carpal tunnel release Z98.890 right x2 02/02/15 bladder sling left foot Surgical History: noncontributory, - - Cholecystectomy, R carpal tunnel surgery, L foot surgery, Uterine suspension and bladder sling. Psychiatric History: Anxiety, Depression, Schizophrenia EMERGENCY ROOM PHYSICIAN History: No pertinent EMERGENCY ROOM PHYSICIAN history Lives: Alone Smoking Status: Current every day smoker Tobacco Use: Cigarettes - Patient reports he smokes 5 to 6 cigarettes/day Alcohol: Rare Drugs: None - *Family History Paternal Family History: Family History (Last Reviewed 12/20/20 @ 14:[address] Afshan Salamanca DO) Sister Myocardial infarction Colon cancer Mother Hypertension Arthritis Brain aneurysm Sister Colon cancer History Items: No pertinent history Sibling Family History: Family History (Last Reviewed 12/20/20 @ 14:[address] Afshan Salamanca DO) Sister Myocardial infarction Colon cancer Mother Hypertension Arthritis Brain aneurysm Sister Colon cancer History Items: Heart Disease Maternal Family History: Family History (Last Reviewed 12/20/20 @ 14:[address] Afshan Salamanca DO) Sister Myocardial infarction Colon cancer Mother Hypertension Arthritis Brain aneurysm Sister Colon cancer History Items: Hypertension Review of Systems Constitutional: Reports: Malaise, Weakness, Fatigue. Denies: Anorexia, Chills, Fever, Weight Change Eyes: Denies: Blurred vision, Cataracts, Conjunctivae Inflammation, Double vision, Pain, Redness, Vision Change HEENT: Reports: Head Aches, Sinus Congestion, Sore Throat. Denies: Difficulty Hearing, Difficulty Swallowing, Ear Pain, Eye Pain, Nasal bleeding, Nasal Congestion, Post Nasal Drip, Sinus Drainage, Visual Changes Cardiovascular: Denies: Chest Pain, Claudication, Chest Pressure, Chest Tightness, Edema, Heaviness, Light Headedness, Orthopnea, Palpitations, Paroxysmal Noc. Dyspnea, Syncope Respiratory: Reports: Wheezing. Denies: Cough, Hemoptysis, Pleuritic Pain, Shortness of Breath, Shortness of breath at rest, Shortness of breath upon exertion, Sputum production Gastrointestinal: Denies: Abdominal Pain, Constipation, Diarrhea, Dyspepsia, Hematemesis, Hematochezia, Nausea, Melena, Vomiting Genitourinary: Denies: Dysuria, Hesitancy, Incontinence, Nocturia, Retention Musculoskeletal: Denies: Back Pain, Joint Pain, Joint stiffness, Joint swelling, Joint Tenderness, Muscle pain, Neck Pain Skin: Denies: Dryness, Jaundice, Lesions, Pruritis, Rash, Skin Changes, Wounds Neurological: Reports: Confusion, Difficulty swallowing, Focal weakness, Headaches, Incoordination, Numbness, Tingling. Denies: Balance problems, Blurred vision, Double vision, Change in Speech, Slurred speech, Tremor, Seizures Psychiatric: Denies: Anxiety, Depression Endocrine: Denies: Change in Body Habitus, Heat/ Cold Intolerance, Polydipsia, Polyuria Hematologic/ Lymphatic: Denies: Adenopathy, Anemia, Easy Bruising, Easy Bleeding, Petechiae, Purpura VTE Information - Inpt Only VTE Present on Admission: No VTE Mechan Device Prophylaxis: SCD's VTE Pharm Prophylaxis ordered?: Yes - Physical Exam Vitals/I&O's: Vital Signs Temp Pulse Resp BP Pulse Ox 98.1 F 66 19 H 120/82 H 96 12/20/20 13:16 12/20/20 13:17 12/20/20 13:17 12/20/20 13:17 12/20/20 13:17 Oxygen Delivery Method Room Air Weight: 115.6 kg Body Mass Index (BMI) 43.7 Finger Stick Blood Glucose 99 Intake and Output for Last 24 Hours 12/18/20 12/19/20 12/20/20 23:59 23:59 23:59 Intake Total Balance General: Alert, Oriented x3, Cooperative, No apparent distress, Well developed, Well nourished, - - Morbidly obese white female lying in bed with mask on, patient appears comfortable HEENT: Atraumatic, PERRLA, EOMI, Normocephalic, EAC Clear Oral: Moist Mucosa, No Gingival or Mucosal Lesions/ Ulcerations, - - Mallampati 4 poor dentition, no thrush Neck: Supple, No JVD, Negative Carotid Bruits, Negative Hepatojugular Reflux, No Nodes, No Nuchal Rigidity, Trachea Midline, Thyroid Normal Size and Texture Lungs: Normal air movement, No rhonchi, No rales, Wheezes - Diffuse scattered end expiratory wheeze, - - No accessory muscle use and no respiratory distress Cardiovascular: Regular rate, Regular Rhythm, Normal S1, Normal S2, No murmurs, No Ectopic Activity, No rub noted, No Gallop Abdomen: Bowel Sounds Present, Soft, Non Tender, Non-Distended, Obese, No hernias noted Extremities: No clubbing, No cyanosis, No edema, Capillary Refill Less than 3 Seconds, Peripheral Pulses Normal Skin: No rashes, No breakdown, - - Pale Musculoskeletal: No Tenderness to Palpation of Joints or Extremities, No Muscle Wasting Lymphatic: No Cervical, Supraclavicular, or Inguinal Adenopathy Neurological: Deep Tendon Reflexes 2+/4 and Symmetrical, Muscle tone normal, Coordination normal, - - Patient demonstrating right facial droop although this is inconsistent between actual exam and when she is distracted, she also is reporting right-sided weakness but upon me asking her to sit up so I could listen to her lungs pulls up with her right arm out difficulty Psych/Mental Status: Flat Affect, - - Fair eye contact Laboratory Results 12/20/20 10:30: WBC 6.1, RBC 4.87, Hgb 14.6, Hct 43.1, MCV 88.5, MCH 30.0, MCHC 33.9, RDW Std Deviation 42.7, RDW Coeff of Yonathan 13.2, Plt Count 260, MPV 10.1, Immature Gran % (Auto) 0.700, Neut % (Auto) 59.8, Lymph % (Auto) 25.4, Reynolds % (Auto) 9.3, Eos % (Auto) 4.3, Baso % (Auto) 0.5, Absolute Neuts (auto) 3.7, Absolute Lymphs (auto) 1.55, Nucleated RBC % 0 12/20/20 10:30: PT 11.6 L, INR 0.9, APTT 25.7 12/20/20 10:30: Sodium 137, Potassium 3.8, Chloride 101, Carbon Dioxide 29.0, Anion Gap 7, BUN 21 H, Creatinine 1.20 H, Estim Creat Clear Calc 45.20, Est GFR (MDRD) Af Amer 60, Est GFR (MDRD) Non-Af 49 L, BUN/Creatinine Ratio 17.5, Glucose 104, Calcium 9.3, Troponin I < 0.015 12/20/20 10:33: POC Glucose 99 12/20/20 12:20: Urine Opiates Screen NEGATIVE, Urine Methadone Screen NEGATIVE, Ur Barbiturates Screen NEGATIVE, Ur Phencyclidine Scrn NEGATIVE, Ur Amphetamines Screen NEGATIVE, U Methamphetamin-MDMA NEGATIVE, U Benzodiazepines Scrn NEGATIVE, Urine Cocaine Screen NEGATIVE, U Cannabinoids Screen NEGATIVE, Ur Drug Screen Comment Current Medications Labetalol HCl (Labetalol (Prefilled) 20 Mg/4 Ml) 20 mg IV X1 PRN PRN Reason: BLOOD PRESSURE Assessment/Plan All Active Problems (Last Reviewed 11/04/20 @ 16:03 by Yazmin Ba) Right sided weakness (Acute) Non-rheumatic mitral regurgitation (Acute) Right-sided weakness and facial droop -Neuro exam shows significant inconsistencies -Suspect this is recurrent conversion disorder -Need for repeat echo--> last echo 10/22/2020 -MRI in the a.m. -Check lipids -A1c -Continue aspirin -Continue statin -Consider SOC consult tomorrow Headache -Give Tylenol now -Patient has history of migraines -CT was negative for any intracranial bleeding Acute exacerbation of COPD/asthma -Patient is wheezing on exam -Start prednisone 40 mg daily -DuoNeb scheduled -Albuterol as needed -Continue home inhalers CKD stage II-III -Serum creatinine is at baseline -We will continue to monitor GERD/gastritis -Continue PPI Hypertension -Continue Lasix 40 mg daily -Continue hydralazine 50 mg 3 times daily -Continue losartan 50 mg daily -Continue nifedipine 60 mg daily -Continue spironolactone do not 25 mg daily Hyperlipidemia -Check lipids -Start Lipitor 80 mg Hypothyroidism -Check TSH -Continue levothyroxine History of conversion disorder -See above History of nonepileptic seizure disorder -Above DAPHNE -Patient noncompliant with CPAP History of stroke -Patient has had TPA x2 -No signs of stroke on imaging -Conversion disorder in past Schizophrenia/bipolar 1 disorder -Tinea hydroxyzine 50 mg every 6 hours as needed -Continue Trileptal 600 mg nightly -Continue trazodone 100 mg nightly -Continue aripiprazole 5 mg daily -Continue Neurontin 300 mg twice daily Morbid obesity -Recommend weight loss DVT prophylaxis -SCDs and Lovenox CODE STATUS -Full Inpatient E&M: 70431 Init Hosp L3
--- NOTE | 2020-12-20 14:01 | MRI_ITS ---
STUDY: MRI BRAIN WITHOUT CONTRAST REASON FOR EXAM: Female, 55 years old. Stroke TECHNIQUE: Standardized multiplanar fat and water weighted pulse sequences were obtained. COMPARISON: Head CT dated December 20, 2020 FINDINGS: There is mild cerebral atrophy with widening of the extra-axial spaces and ventricular dilatation. There are a limited number of small white matter hyperintensities, distributed throughout the deep white matter tracts of the cerebral hemispheres, consistent with mild chronic white matter ischemic changes. There is no evidence for recent intracranial ischemia or other cause of cytotoxic edema on diffusion weighted imaging (DWI). Normal T2* images of the brain without demonstrated susceptibility artifact. There is no demonstrated hemosiderin stain. Normal bilateral basal ganglia. Normal thalami. There is no extra-axial fluid accumulation. Normal flow voids within the major intracranial circulation suggesting patency by spin echo criteria. Normal sella turcica, pituitary gland, infundibular stalk, optic chiasm and hypothalamus. Normal tectal plate and pineal gland. Normal midbrain, molina and medulla. Normal cerebellum. Normal basal cisterns. Normal bilateral temporal bones. Normal bilateral internal auditory canals. No demonstrated orbital abnormality, within the constraints of a routine brain study. Normal visualized paranasal sinuses. Normal calvarium and skull base. Normal visualized soft tissue structures. Normal visualized upper cervical spine. MRI/Brain without Contrast IMPRESSION: Mild chronic ischemic and involutional changes of the brain, as described above. Electronically Signed: Rivas Matos MD at 18:28 EST , Service support ,
[2020-12-20] MEDS: Fluticasone 0.05% 1 SPRAY NASAL.SRY NASAL ×2 (15:53→21:36)
[2020-12-20] MEDS: Ipratropium/Albuterol Sulfate 3 ML AMPUL.NEB INHALATION (18:45)
[2020-12-20] MEDS: prednisoLONE eye drops (5 mL) 1 DROP OPTH.BTL 1 DRP LEFT EYE (21:35)
[2020-12-20] MEDS: Erythromycin Base 1 OPTH.TUBE 1 APPLIC RIGHT EYE (21:36)
[2020-12-21] VITALS (10 sets, daily range): BP systolic 117–123; BP diastolic 48–60; PULSE 54–70; RESP 16–18; TEMP 36.3–36.6; O2SAT 94–98
[2020-12-21] MEDS: Ipratropium/Albuterol Sulfate 3 ML AMPUL.NEB INHALATION ×2 (00:40→06:47)
[2020-12-21] MEDS: prednisoLONE eye drops (5 mL) 1 DROP OPTH.BTL 1 DRP LEFT EYE (05:33)
[2020-12-21 06:31] LABS: Absolute Lymphocyte Count 0.99 X10^3/uL (0.83-4.51); Absolute Neutrophil Count 8.6 X10^3/uL (2.0-7.7); Basophil# 0.02 X10^3/uL; Basophil% 0.2 % (0-1); Differential Indicated SCAN CRITERIA MET; Eosinophil# 0.01 X10^3/uL; Eosinophils% 0.1 % (0-5); Hemoglobin 14.1 g/dL (12.0-15.0); Lymphocyte # 0.99 X10^3/ul (4.0); Lymphocyte % 9.7 % (19-41); Mean Corpuscular Hgb 28.7 pg (27.0-32.0); Mean Corpuscular Volume 89.6 fL (81-99); Mean Platelet Vol. 10.3 fl (6.2-12.0); Monocyte# 0.56 X10^3/uL; Monocyte% 5.5 % (0-10); NRBC Flagged by Analyzer 0 % (0-5); Neutrophil # 8.58 X10^3/uL (2.7-7.7); Neutrophil % 84.1 % (47-70); POSITIVE COUNT YES; Platelet Count 203 K/mm3 (150-450); RBC Distribution Width CV 13.3 % (11.6-14.6); RBC Distribution Width SD 44.2 fl (35.1-43.9); Red Blood Count 4.91 M/mm3 (4.2-5.4); White Blood Count 10.2 K/mm3 (4.4-11.0)
[2020-12-21 07:09] LABS: ALB/GLOB Ratio 1.2 RATIO (0.9-2.4); AST(SGOT) 15 U/L (15-37); Alanine Aminotransfer ALT/SGPT 26 U/L (13-56); Albumin, Serum 3.8 g/dL (3.2-5.0); Alkaline Phosphatase 95 U/L (45-117); Anion Gap 8 (5-15); BUN 24 mg/dL (7-18); BUN/Creat Ratio 18.5 RATIO (10-20); Chloride 104 mmol/L (98-107); Cholesterol 186 mg/dL (200); EST Glomerular Filtration Rate 45 mL/min (>60); Est Glom Filt Rate - Afr Amer 54 mL/min (>60); Estimated Creatinine Clearance 41.73 ml/min; Globulin 3.1 g/dL (2.2-4.2); Glucose 111 mg/dL (74-106); High Density Lipoprotein 74 mg/dL; Protein, Total 6.9 g/dL (6.4-8.2); Sodium Level 138 mmol/L (136-145); Thyroid Stim Hormone (TSH) 0.56 uIU/mL (0.358-3.74); Triglycerides 74 mg/dL; Very Low Density Lipoprotein 15 mg/dL (5-40)
[2020-12-21] MEDS: Loratadine 10 MG Tablet PO (08:24)
[2020-12-21] MEDS: predniSONE 20 MG Tablet 40 MG PO (08:25)
[2020-12-21] MEDS: NIFEdipine 30 MG Tablet PO (08:25)
[2020-12-21] MEDS: guaiFENesin 600 MG Tablet PO (08:25)
[2020-12-21] MEDS: ARIPiprazole 5 MG Tablet PO (08:25)
[2020-12-21] MEDS: Aspirin E.C. 81 MG Tablet PO (08:26)
[2020-12-21] MEDS: Spironolactone 25 MG Tablet PO (08:27)
[2020-12-21] MEDS: Furosemide 40 MG Tablet PO (08:27)
[2020-12-21] MEDS: Gabapentin 300 MG Capsule PO (08:27)
[2020-12-21] MEDS: Enoxaparin 40 MG/0.4 ML Syringe SC (08:28)
[2020-12-21] MEDS: Erythromycin Base 1 OPTH.TUBE 1 APPLIC RIGHT EYE (08:28)
[2020-12-21] MEDS: Furosemide 80 MG Tablet PO (08:34)
--- NOTE | 2020-12-21 09:20 | DCINST_ITS ---
- Discharge Diagnoses Current Active Problems: Current Active and Chronic Problems (Last Reviewed 12/20/20 @ 14:[address] Afshan Salamanca, DO) Right sided weakness (Acute) CKD (chronic kidney disease) stage 2, GFR 60-89 ml/min (Chronic) Nonrheumatic aortic (valve) insufficiency (Chronic) Non-rheumatic mitral regurgitation (Acute) Orthostatic hypotension (Chronic) Psychosis (Chronic) Heart failure (Chronic) Intertriginous dermatitis associated with moisture (Chronic) Right hip pain (Chronic) Hyponatremia (Chronic) Hypokalemia (Chronic) PAF (paroxysmal atrial fibrillation) (Chronic) HTN (hypertension) (Chronic) HLD (hyperlipidemia) (Chronic) Hypothyroidism (Chronic) CKD (chronic kidney disease) stage 3, GFR 30-59 ml/min (Chronic) Migraine (Chronic) Asthma (Chronic) Tobacco use (Chronic) Depression (Chronic) COPD, mild (Chronic) Schizophrenia (Chronic) Convulsion, 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 Gastritis (Chronic) Conversion disorder with abnormal movement (Chronic) You will use the following diet at home:: No restrictions Your food should be the consistency of: Regular Your liquids should be the consistency of: Regular/Thin Discharge Activity: Return to Normal Activity Weight Bearing Status: Full weight bearing Additional Instructions: DO NOT SMOKE Allergies/Adverse Reactions: Allergies adhesive tape Allergy (Verified 12/20/20 10:15) Rash atropine sulfate [From ] Allergy (Verified 12/20/20 10:15) Hives codeine phosphate [From Tylenol-Codeine #3] Allergy (Verified 12/20/20 10:15) breathing problems divalproex sodium [From Depakote] Allergy (Verified 12/20/20 10:15) Unknown hydromorphone HCl [From Dilaudid] Allergy (Verified 12/20/20 10:15) facial blisters,itching hyoscyamine sulfate [From ] Allergy (Verified 12/20/20 10:15) Hives Iodinated Contrast Media [Iodinated Contrast Media - IV Dye] Allergy (Verified 12/20/20 10:15) breathing problems and my bp went up latex Allergy (Verified 12/20/20 10:15) Rash pantoprazole sodium [From Protonix] Allergy (Verified 12/20/20 10:15) Rash phenobarbital [From ] Allergy (Verified 12/20/20 10:15) Hives promethazine HCl [From Phenergan] Allergy (Verified 12/20/20 10:15) Anaphylaxis ramipril Allergy (Verified 12/20/20 10:15) Unknown scopolamine hydrobromide [From ] Allergy (Verified 12/20/20 10:15) Hives ziprasidone mesylate [From Geodon] Allergy (Verified 12/20/20 10:15) Unknown Sulfa (Sulfonamide Antibiotics) Adverse Reaction (Verified 12/20/20 10:15) Vomiting ziprasidone HCl [From Geodon] Adverse Reaction (Verified 12/20/20 10:15) tremors VIDODIN TUSS Allergy (Uncoded 12/20/20 10:15) Itching Amlodipine Adverse Reaction (Uncoded 12/20/20 10:15) Vomiting Medications to take at Discharge traMADol [Ultram] 50 mg PO Q6H PRN PRN 02/24/19 Gabapentin [Neurontin] 300 mg PO BID 09/06/19 Oxcarbazepine 600 tab PO QHS 09/06/19 Hydroxyzine Pamoate [Vistaril] 50 mg PO Q6H PRN 10/18/19 levothyroxine 50 mcg tablet 50 mcg PO DAILY #90 tab 12/16/19 albuterol sulfate 2.5 mg INHALATION Q6H PRN #75 ml 12/17/19 melatonin 10 mg capsule 10 mg PO QHS #90 cap 01/19/20 guaifenesin 1,200 mg tablet, extended release 12 hr 600 mg PO BID #60 tab 09/10/20 nitroglycerin 0.4 mg sublingual tablet 0.4 mg SUBLINGUAL PRN PRN #20 tab 09/10/20 Aripiprazole 5 mg PO DAILY 10/31/20 traZODone [Desyrel] 100 mg PO QHS 10/31/20 hydralazine 50 mg tablet 50 mg PO TID 90 Days #270 tab 11/04/20 nifedipine 60 mg tablet,extended release 24 hr 30 mg PO DAILY #180 tab 11/04/20 spironolactone 25 mg tablet 25 mg PO DAILY #90 tab 11/04/20 Aspirin [Low Dose Aspirin EC] 81 mg PO DAILY@0800 12/20/20 Cholecalciferol (Vitamin D3) [D3-50] 50,000 unit PO FR 12/20/20 Erythromycin Ophthalmic 1 applic RIGHT EYE BID 12/20/20 Fluticasone Propionate 1 spray NASAL BID 12/20/20 Furosemide 40 mg PO DAILY@1300 12/20/20 Furosemide 80 mg PO DAILY 12/20/20 Ipratropium/Albuterol Respimat [Combivent Respimat Inhal [place]] 1 puff INHALATION 4X/DAY 12/20/20 Loratadine 10 mg PO DAILY 12/20/20 Losartan Potassium 50 mg PO DAILY 12/20/20 prednisoLONE eye drops (5 mL) [Pred Forte eye drops (5 mL)] 1 drp LEFT EYE TID 12/20/20 Acetaminophen [Tylenol Tablet] 650 mg PO Q6H PRN PRN tablet 12/21/20 Fluticasone 0.05% [Flonase Nasal [place]] 1 spray NASAL BID nasal.sry 12/21/20 Furosemide [Lasix] 40 mg PO 1300 tablet 12/21/20 Furosemide [Lasix] 80 mg PO QAM tablet 12/21/20 Primary Care Physician: Scarlet Navarro MD [Primary Care Provider] - Please follow up with your Primary Care Physician in: in 7-10 days Test Results: Test results from this visit will be discussed in further detail at your follow- up appointment, if applicable.
--- NOTE | 2020-12-22 19:11 | PCM.DC.SUM ---
Discharge Date and Diagnosis - Problem List Patient Problems: Active and Suspected Problems (Last Reviewed 12/20/20 @ 14:[address] Afshan Salamanca DO) Right sided weakness (Acute) Non-rheumatic mitral regurgitation (Acute) Date of Admission: 12/20/20 Date of Discharge: 12/21/20 - Primary Discharge Diagnosis Acute Problems: Active Problems (Last Reviewed 12/20/20 @ 14:[address] Afshan Salamanca DO) #1 right-sided body weakness-psychogenic in nature #2 conversion disorder #3 schizoaffective disorder #4 essential hypertension #5 morbid obesity #6 chronic kidney disease stage III - Secondary Discharge Diagnosis Chronic Problems: Chronic Problems (Last Reviewed 12/20/20 @ 14:[address] Afshan Salamanca DO) CKD (chronic kidney disease) stage 2, GFR 60-89 ml/min (Chronic) Nonrheumatic aortic (valve) insufficiency (Chronic) Orthostatic hypotension (Chronic) Psychosis (Chronic) Heart failure (Chronic) Intertriginous dermatitis associated with moisture (Chronic) Right hip pain (Chronic) Hyponatremia (Chronic) Hypokalemia (Chronic) PAF (paroxysmal atrial fibrillation) (Chronic) HTN (hypertension) (Chronic) HLD (hyperlipidemia) (Chronic) Hypothyroidism (Chronic) CKD (chronic kidney disease) stage 3, GFR 30-59 ml/min (Chronic) Migraine (Chronic) Asthma (Chronic) Tobacco use (Chronic) Depression (Chronic) COPD, mild (Chronic) Schizophrenia (Chronic) Convulsion, 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 It was suspected the patient had a conversion disorder-she does have a history of schizoaffective disorder. Patient was placed in observation status on PCU, she underwent an MRI of the brain which was unremarkable. On 12/21/2020, patient was seen and examined: On examination she appeared in good health and spirits, she does not appear to be in any distress. Vital signs as documented. Skin warm and dry and without overt rashes. Neck without JVD, thyroid appears normal, trachea is midline, neck is supple. Lungs clear, normal air movement was noted. Heart exam notable for regular rhythm, normal sounds and absence of murmurs, rubs or gallops. Abdomen unremarkable and without evidence of organomegaly, masses, or abdominal aortic enlargement, bowel sounds are present in all 4 quadrants, no abdominal tenderness was noted. Extremities nonedematous, no cyanosis was noted, no clubbing was noted. Neuro: Cranial nerves II through XII are grossly intact, no focal motor deficits were noted, sensation to light touch and pinprick is intact, motor exam 5/5 throughout. Psych: Patient is alert and oriented x3, she does not appear anxious or depressed, she does not appear agitated. Patient appears stable for discharge on 12/21/2020, it was felt that the patient's symptoms were a result of her schizoaffective disorder. Patient Problems: Active and Suspected Problems (Last Reviewed 12/20/20 @ 14:[address] Afshan Salamanca, DO) Right sided weakness (Acute) Non-rheumatic mitral regurgitation (Acute) - Physical Exam Vitals/I&O's: Vital Signs Temp Pulse Resp BP Pulse Ox 97.4 F L 67 18 120/48 L 98 12/21/20 08:10 12/21/20 08:10 12/21/20 08:10 12/21/20 08:10 12/21/20 09:15 Oxygen Delivery Method Room Air Weight: 113.2 kg Body Mass Index (BMI) 42.8 Finger Stick Blood Glucose 99 Intake and Output for Last 24 Hours 12/20/20 12/21/20 12/22/20 23:59 23:59 23:59 Intake Total Balance Microbiology Past 72 Hours 12/20/20 15:21 Mucosa - Nasopharyngeal Respiratory Panel (PCR) - Final Discharge Activity: Return to Normal Activity Weight Bearing Status: Full weight bearing Home Medications: Medications to take at Discharge traMADol [Ultram] 50 mg PO Q6H PRN PRN 02/24/19 Gabapentin [Neurontin] 300 mg PO BID 09/06/19 Oxcarbazepine 600 tab PO QHS 09/06/19 Hydroxyzine Pamoate [Vistaril] 50 mg PO Q6H PRN 10/18/19 levothyroxine 50 mcg tablet 50 mcg PO DAILY #90 tab 12/16/19 albuterol sulfate 2.5 mg INHALATION Q6H PRN #75 ml 12/17/19 melatonin 10 mg capsule 10 mg PO QHS #90 cap 01/19/20 guaifenesin 1,200 mg tablet, extended release 12 hr 600 mg PO BID #60 tab 09/10/20 nitroglycerin 0.4 mg sublingual tablet 0.4 mg SUBLINGUAL PRN PRN #20 tab 09/10/20 Aripiprazole 5 mg PO DAILY 10/31/20 traZODone [Desyrel] 100 mg PO QHS 10/31/20 hydralazine 50 mg tablet 50 mg PO TID 90 Days #270 tab 11/04/20 nifedipine 60 mg tablet,extended release 24 hr 30 mg PO DAILY #180 tab 11/04/20 spironolactone 25 mg tablet 25 mg PO DAILY #90 tab 11/04/20 Aspirin [Low Dose Aspirin EC] 81 mg PO DAILY@0800 12/20/20 Cholecalciferol (Vitamin D3) [D3-50] 50,000 unit PO FR 12/20/20 Erythromycin Ophthalmic 1 applic RIGHT EYE BID 12/20/20 Fluticasone Propionate 1 spray NASAL BID 12/20/20 Furosemide 40 mg PO DAILY@1300 12/20/20 Furosemide 80 mg PO DAILY 12/20/20 Ipratropium/Albuterol Respimat [Combivent Respimat Inhal [place]] 1 puff INHALATION 4X/DAY 12/20/20 Loratadine 10 mg PO DAILY 12/20/20 Losartan Potassium 50 mg PO DAILY 12/20/20 prednisoLONE eye drops (5 mL) [Pred Forte eye drops (5 mL)] 1 drp LEFT EYE TID 12/20/20 Acetaminophen [Tylenol Tablet] 650 mg PO Q6H PRN PRN tab 12/21/20 Fluticasone 0.05% [Flonase Nasal [place]] 1 spray NASAL BID nasal.sry 12/21/20 Furosemide [Lasix] 40 mg PO 1300 tab 12/21/20 Furosemide [Lasix] 80 mg PO QAM tab 12/21/20 Primary Care Physician: Scarlet Navarro MD [Primary Care Provider] - Please follow up with your Primary Care Physician in: in 7-10 days Disposition: Home Minutes spent on discharge:: 30 Patient Condition:: Stable Medical Necessity - Tobacco Use Smoking Status: Current every day smoker Tobacco Use: Cigarettes Meaningful Use Info Meaningful Use Diagnoses (Choose all that apply): None applicable OBSV E&M: 70235 Observation care discharge
== END 2020-12-21 09:21 | disposition home or self-care (01) ==
LOC: ED 11:34 → PCU 13:30
PROVIDERS: Admitting Provider Internal Medicine; Emergency Provider Emergency Medicine; PCP Internal Medicine; Visit Provider Internal Medicine
DX: R53.1 Weakness (principal); E66.01 Morbid (severe) obesity due to excess calories; F25.9 Schizoaffective disorder, unspecified; F44.4 Conversion disorder with motor symptom or deficit; I13.0 Hypertensive heart and chronic kidney disease with heart failure and stage 1 through stage 4 chronic kidney disease, or unspecified chronic kidney disease; N18.30 Chronic kidney disease, stage 3 unspecified; E78.5 Hyperlipidemia, unspecified; R29.810 Facial weakness; R06.02 Shortness of breath; F17.210 Nicotine dependence, cigarettes, uncomplicated; R29.705 NIHSS score 5; J44.9 Chronic obstructive pulmonary disease, unspecified; F31.9 Bipolar disorder, unspecified; I50.32 Chronic diastolic (congestive) heart failure; E03.9 Hypothyroidism, unspecified; G43.909 Migraine, unspecified, not intractable, without status migrainosus; I48.0 Paroxysmal atrial fibrillation; F41.9 Anxiety disorder, unspecified; G47.33 Obstructive sleep apnea (adult) (pediatric); K21.9 Gastro-esophageal reflux disease without esophagitis; Z86.73 Personal history of transient ischemic attack (TIA), and cerebral infarction without residual deficits; Z79.899 Other long term (current) drug therapy; Z79.51 Long term (current) use of inhaled steroids; Z79.82 Long term (current) use of aspirin; Z86.711 Personal history of pulmonary embolism; Z91.19 Patient's noncompliance with other medical treatment and regimen
CPT/HCPCS: 36415; 70450; 70496; 70498; 70551; 71045; 80048; 80053; 80061; 80307; 82962; 84443; 84484; 85025; 85610; 85730; 87633; 92610; 93005; 94640; 94762; 96372; 96374; 96375; 97110; 97162; 97166; 97530; 97802; 99218; 99251; 99285; 99406; Q9967; A4216; G0378; G0463; J3490

== ENCOUNTER → 2021-01-07 10:48 | Outpatient (CLI) | payer MEDICAID, SELFPAY ==
[2020-12-31 09:49] VITALS: BMI 43.2
[2021-01-07 12:27] LABS: ALB/GLOB Ratio 1.3 RATIO (0.9-2.4); AST(SGOT) 14 U/L (15-37); Alanine Aminotransfer ALT/SGPT 31 U/L (13-56); Albumin, Serum 4.1 g/dL (3.2-5.0); Alkaline Phosphatase 99 U/L (45-117); Anion Gap 9 (5-15); BUN 19 mg/dL (7-18); BUN/Creat Ratio 14.7 RATIO (10-20); Chloride 98 mmol/L (98-107); Creatinine, Serum 1.29 mg/dL (0.55-1.02); EST Glomerular Filtration Rate 45 mL/min (>60); Est Glom Filt Rate - Afr Amer 55 mL/min (>60); Globulin 3.2 g/dL (2.2-4.2); Glucose 102 mg/dL (74-106); Potassium 3.7 mmol/L (3.5-5.1); Protein, Total 7.3 g/dL (6.4-8.2); Sodium Level 135 mmol/L (136-145)
== END ==
PROVIDERS: PCP Internal Medicine; Referring Provider Registered Nurse; Visit Provider Registered Nurse
DX: Z79.899 Other long term (current) drug therapy (principal)
CPT/HCPCS: 36415; 80053

== ENCOUNTER → 2021-01-07 11:10 | Outpatient (CLI) | payer MEDICAID, SELFPAY ==
[2020-12-31 09:49] VITALS: BMI 43.2
== END ==
PROVIDERS: PCP Internal Medicine; Visit Provider Nurse Practitioner Acute Care
DX: Z46.89 Encounter for fitting and adjustment of other specified devices (principal); Z79.899 Other long term (current) drug therapy
CPT/HCPCS: 36415; 80053

== ENCOUNTER → 2021-01-24 06:48 | Outpatient (CLI) | payer MEDICAID, SELFPAY ==
[2020-12-31 09:49] VITALS: BMI 43.2
--- NOTE | 2021-01-24 15:04 | PFTCOMP_ITS ---
COMPLETE PULMONARY FUNCTION TEST INTERPRETATION Brief HPI: Patient is a 55 year old female, currently under the care of Dr. Porter, who presents to [facility] for complete pulmonary function tests secondary to diagnosis of COPD. Respiratory therapist reports good effort and reproducible results. However, patient was unable to exhale for more than 3-1/2 seconds and was not able to hold breath for DLCO maneuver. Interpretation: Forced expiration spirometry shows a mild large airways obstructive ventilatory defect with an FEV1 of 77% predicted. There is a significant bronchodilator response in FVC and FEV1 by strict ATS criteria. Spirograms are of poor quality and plateau slowly, indicating slowly emptying areas of the lungs. The respiratory flow volume loop shows decreased expiratory flow rates at high lung volumes consistent with small airways obstruction. Lung volumes by body plethysmography show a normal total lung capacity at 4.71 L, 96% predicted. FRC and RV are elevated out of proportion. Lung volume measurements are consistent with air-trapping. Diffusion capacity by carbon monoxide maneuver was unable to be completed. The airway resistance is normal. Compared to previous pulmonary function tests from 01/13/2020, show significant reduction in spirometric values. Impression: Partially reversible mild large airways obstructive ventilatory defect. Study is of poor quality and FVC may be underestimated secondary to poor exhalation time.
== END ==
PROVIDERS: PCP Internal Medicine; Referring Provider Nurse Practitioner Acute Care; Visit Provider Nurse Practitioner Acute Care
DX: J44.9 Chronic obstructive pulmonary disease, unspecified (principal)
CPT/HCPCS: 94060; 94726

== ENCOUNTER → 2021-01-25 09:25 | Outpatient (CLI) | payer MEDICAID, SELFPAY ==
[2020-12-31 09:49] VITALS: BMI 43.2
[2021-01-25 12:19] LABS: Absolute Lymphocyte Count 1.38 X10^3/uL (0.83-4.51); Absolute Neutrophil Count 5.1 X10^3/uL (2.0-7.7); Basophil# 0.02 X10^3/uL; Basophil% 0.3 % (0-1); Eosinophil# 0.26 X10^3/uL; Eosinophils% 3.5 % (0-5); Hematocrit 45.6 % (37-47); Hemoglobin 14.9 g/dL (12.0-15.0); Lymphocyte # 1.38 X10^3/ul (4.0); Lymphocyte % 18.5 % (19-41); Mean Corp Hgb Conc 32.7 g/dL (32-36); Mean Corpuscular Volume 88.7 fL (81-99); Mean Platelet Vol. 10.9 fl (6.2-12.0); Monocyte# 0.62 X10^3/uL; Monocyte% 8.3 % (0-10); NRBC Flagged by Analyzer 0 % (0-5); Neutrophil # 5.14 X10^3/uL (2.7-7.7); Platelet Count 305 K/mm3 (150-450); RBC Distribution Width CV 13.5 % (11.6-14.6); RBC Distribution Width SD 44.1 fl (35.1-43.9); Red Blood Count 5.14 M/mm3 (4.2-5.4); White Blood Count 7.5 K/mm3 (4.4-11.0)
[2021-01-25 12:48] LABS: ALB/GLOB Ratio 1.2 RATIO (0.9-2.4); AST(SGOT) 15 U/L (15-37); Alanine Aminotransfer ALT/SGPT 34 U/L (13-56); Albumin, Serum 4.1 g/dL (3.2-5.0); Alkaline Phosphatase 111 U/L (45-117); Anion Gap 6 (5-15); BUN 17 mg/dL (7-18); BUN/Creat Ratio 13.5 RATIO (10-20); Calcium,Total 9.3 mg/dL (8.5-10.1); Chloride 98 mmol/L (98-107); Creatinine, Serum 1.26 mg/dL (0.55-1.02); EST Glomerular Filtration Rate 47 mL/min (>60); Est Glom Filt Rate - Afr Amer 56 mL/min (>60); Globulin 3.4 g/dL (2.2-4.2); Glucose 100 mg/dL (74-106); Potassium 3.5 mmol/L (3.5-5.1); Protein, Total 7.5 g/dL (6.4-8.2); Sodium Level 134 mmol/L (136-145); Thyroid Stim Hormone (TSH) 1.53 uIU/mL (0.358-3.74)
[2021-01-25 14:20] VITALS: PULSE 76; PULSE 78; PULSE 84; PULSE 88; PULSE 89; PULSE 90; PULSE 91; PULSE 93; O2SAT 95; O2SAT 96; O2SAT 97; O2SAT 98
--- NOTE | 2021-01-27 05:58 | PCM.PSN.6M ---
PSN 6 Minute Walk Test - 6 Minute Walk Test 6 Minute Walk Test: 6 Minute Walk Test PSN:6-Minute Walk Test Start: 01/25/21 14:19 Freq: Status: Active Protocol: [id number] Document 01/25/21 14:20 [facility] (Rec: 01/25/21 14:24 [facility] [id number]) 6 Minute Walk Test Date Performed 01/25/21 Time Performed 13:45 Height 5 ft 4 in Weight: 97.522 kg Weight in Pounds 215.[address]: Lillian White [employer] Assistive device used: Walker Pre-test Oxygen Delivery Method Room Air Pulse Ox (%) 97 Pulse Rate (60-100 beats/min) 76 Dyspnea [place] Scale (0-10) 1 1st minute Oxygen Delivery Method Room Air Pulse Ox (%) 96 Pulse Rate (60-100 beats/min) 84 Dyspnea [place] Scale (0-10) 3 Number of Rests Taken 0 Reported Symptoms Increased Work of Breathing 2nd minute Oxygen Delivery Method Room Air Pulse Ox (%) 97 Pulse Rate (60-100 beats/min) 88 Dyspnea [place] Scale (0-10) 4 Number of Rests Taken 1 Reported Symptoms Increased Work of Breathing 3rd minute Oxygen Delivery Method Room Air Pulse Ox (%) 98 Pulse Rate (60-100 beats/min) 89 Dyspnea [place] Scale (0-10) 4 Number of Rests Taken 0 Reported Symptoms Increased Work of Breathing 4th minute Oxygen Delivery Method Room Air Pulse Ox (%) 97 Pulse Rate (60-100 beats/min) 91 Dyspnea [place] Scale (0-10) 4 Number of Rests Taken 0 Reported Symptoms Increased Work of Breathing 5th minute Oxygen Delivery Method Room Air Pulse Ox (%) 96 Pulse Rate (60-100 beats/min) 93 Dyspnea [place] Scale (0-10) 5 Number of Rests Taken 1 Reported Symptoms Increased Work of Breathing, Dizziness 6th minute Oxygen Delivery Method Room Air Pulse Ox (%) 95 Pulse Rate (60-100 beats/min) 90 Dyspnea [place] Scale (0-10) 5 Number of Rests Taken 1 Reported Symptoms Increased Work of Breathing Post-test Oxygen Delivery Method Room Air Pulse Ox (%) 98 Pulse Rate (60-100 beats/min) 78 Dyspnea [place] Scale (0-10) 2 Full Laps Walked 7 Partial Lap, Number of Tiles Walked 21 Total Distance Walked (ft) 434 - Interpretation Interpretation: The patient was noted to be 97% on room air. The patient experienced no significant desaturation or tachycardia during testing. The patient was able to travel only 434 feet over the course of 6 minutes with the assistance of a walker and 3 breaks. These findings are consistent with a musculoskeletal limitation exercise tolerance. - Recommendations Recommendations: No supplemental oxygen is indicated at this time. However, patient may need to be reevaluated if mobility improves.
== END ==
PROVIDERS: PCP Internal Medicine; Referring Provider Nurse Practitioner Acute Care; Visit Provider Nurse Practitioner Acute Care
DX: E03.9 Hypothyroidism, unspecified (principal); R68.81 Early satiety; R10.9 Unspecified abdominal pain; J44.9 Chronic obstructive pulmonary disease, unspecified
CPT/HCPCS: 36415; 80053; 84443; 85025; 94618

== ENCOUNTER 2021-02-08 22:40 | Emergency (ER) | payer MEDICAID, SELFPAY ==
[2021-02-04 14:07] VITALS: BMI 65.7
[2021-02-08 22:41] VITALS: BP 142/112; PULSE 74; RESP 15; TEMP 36.6; O2SAT 98; BMI 43.9
[2021-02-08 23:13] VITALS: BP 142/112; PULSE 74; RESP 15; TEMP 36.6; O2SAT 98
--- NOTE | 2021-02-08 23:26 | EKG12_ITS ---
Test Reason : COUGH Blood Pressure : / mmHG Vent. Rate : 066 BPM Atrial Rate : 066 BPM P-R Int : 166 ms QRS Dur : 086 ms QT Int : 416 ms P-R-T Axes : 019 -15 010 degrees QTc Int : 436 ms Sinus rhythm with occasional Premature ventricular complexes Otherwise normal ECG Confirmed by CHARLENE SPEARS, JAZMYNE ([id number]), senior technical editor ANAND HSIEH ([id number]) on 02/10/2021 9:16:25 AM Referred By: ALLY Confirmed By:JAZMYNE CHANG MD
--- NOTE | 2021-02-08 23:26 | RAD_ITS ---
STUDY: X-RAY CHEST REASON FOR EXAM: Female, 56 years old. cough TECHNIQUE: Single AP portable view of the chest. COMPARISON: 12/20/2020 FINDINGS: Limited penetration left base. Lower chest wall pleural thickening or small effusion not excluded. The lungs are otherwise clear and expanded. There is no demonstrated pleural abnormality. Stable cardiomegaly. Normal mediastinum and rosita. Normal visualized pulmonary arteries. Normal visualized aortic arch and descending thoracic aorta. Normal visualized thoracic spine. Normal visualized ribs, clavicles, and shoulders. There is no demonstrated abnormality of the visualized soft tissue structures of the upper abdomen. RAD/Chest 1 View (Portable) IMPRESSION: Stable cardiac enlargement. No pulmonary edema, congestive heart failure or confluent pneumonia. Limited penetration left base, please see above. Electronically Signed: Lilliam Pringle MD at 0:19 EDT , Service support ,
--- NOTE | 2021-02-08 23:29 | ED.DCSUM_ITS ---
HPI History of Present Illness Chief Complaint: Cough Narrative Narrative: 56-year-old female presenting with rhinorrhea, nasal congestion, loss of taste and smell, sore throat, cough and mild shortness of breath. Patient states that the last time she was exposed to anybody was Sunday when she saw her list of [employer] job ideas. Symptoms have progressed since then. She states that otherwise she has been home and not seen anybody. She does not have chest pain. Patient has not had her COVID-19 vaccine. Patient has not had a fever that she knows of. She states that she does not have body aches. Patient does state that she feels fatigued. PFSH PFSH Medical History Aortic valve insufficiency Arthralgia of right hip Asthma Asthma Bipolar 1 disorder Chest pain Chest pain CKD (chronic kidney disease) CKD (chronic kidney disease) stage 3, GFR 30-59 ml/min Conversion disorder Conversion disorder with abnormal movement Convulsion, non-epileptic COPD, mild Cyst Depression Enlarged aorta Gastritis GERD (gastroesophageal reflux disease) Heart failure Hip dislocation, right HLD (hyperlipidemia) HTN (hypertension) Hypertensive crisis without congestive heart failure Hypokalemia Hyponatremia Hypothyroidism Intertriginous dermatitis associated with moisture Left arm swelling Migraine Migraines Non-convulsive status epilepticus Non-rheumatic mitral regurgitation Nonrheumatic aortic (valve) insufficiency Orthostatic hypotension DAPHNE (obstructive sleep apnea) Osteoarthritis PAF (paroxysmal atrial fibrillation) Peripheral artery disease Psychosis Pulmonary embolism Right hip pain Schizo NEC, chrn/exacerb Schizophrenia Stroke Tobacco use Home Medications oxcarbazepine 600 tab PO QHS 09/06/19 [History Last Taken 12/19/20] hydroxyzine pamoate 50 mg PO Q6H PRN 10/18/19 [History Last Taken 12/20/20] nitroglycerin 0.4 mg sublingual tablet 0.4 mg SUBLINGUAL PRN PRN #20 tab 09/10/20 [Rx Last Taken 12/17/20] aripiprazole 5 mg PO DAILY 10/31/20 [History Last Taken 12/19/20] trazodone 100 mg PO QHS 10/31/20 [History Last Taken 12/19/20] fluticasone propionate 1 spray NASAL BID 12/20/20 [History Last Taken 12/20/20] ipratropium-albuterol 1 puff INHALATION 4X/DAY 12/20/20 [History Last Taken 12/20/20] loratadine 10 mg PO DAILY 12/20/20 [History Last Taken 12/20/20] prednisolone acetate 1 drp LEFT EYE TID 12/20/20 [History Last Taken 12/20/20] cholecalciferol (vitamin D3) 1,250 mcg (50,000 unit) capsule 50,000 unit PO FR #12 cap 12/28/20 [Rx Last Taken Unknown] guaifenesin 1,200 mg tablet, extended release 12 hr 600 mg PO BID #60 tab 01/03/21 [Rx Last Taken Unknown] levothyroxine 50 mcg tablet 50 mcg PO DAILY #90 tab 01/03/21 [Rx Last Taken Unknown] spironolactone 25 mg tablet 25 mg PO DAILY #90 tab 01/03/21 [Rx Last Taken Unknown] aspirin 81 mg tablet,delayed release 81 mg PO DAILY@0800 #90 tablet 01/19/21 [Rx Last Taken Unknown] hydralazine 50 mg tablet 50 mg PO TID 90 Days #270 tab 01/19/21 [Rx Last Taken Unknown] melatonin 10 mg capsule 10 mg PO QHS #90 cap 01/19/21 [Rx Last Taken Unknown] furosemide 40 mg tablet 40 mg PO BID #90 tablet 02/04/21 [Rx Last Taken Unknown] losartan 100 mg tablet 50 mg PO DAILY tab 02/04/21 [History Last Taken Unknown] ascorbic acid (vitamin C) [Vitamin C] 1 g PO DAILY 02/08/21 [History Last Taken Unknown] budesonide-formoterol [Symbicort] 2 puff INHALATION BID 02/08/21 [History Last Taken Unknown] ipratropium-albuterol [Combivent Respimat] 1 puff INHALATION Q4H 02/08/21 [History Last Taken Unknown] nifedipine 30 mg PO BID 02/08/21 [History Last Taken Unknown] amoxicillin-pot clavulanate 875 mg PO Q12H #20 tablet 02/09/21 [Rx Last Taken Unknown] Allergy/AdvReac Type Severity Reaction Status Date / Time adhesive tape Allergy Rash Verified 02/08/21 22:41 atropine sulfate Allergy Hives Verified 02/08/21 22:41 [From ] codeine phosphate Allergy breathing Verified 02/08/21 22:41 [From Tylenol-Codeine #3] problems divalproex sodium Allergy Unknown Verified 02/08/21 22:41 [From Depakote] hydromorphone HCl Allergy facial Verified 02/08/21 22:41 [From Dilaudid] blisters,itching hyoscyamine sulfate Allergy Hives Verified 02/08/21 22:41 [From ] Iodinated Contrast Media Allergy breathing Verified 02/08/21 22:41 [Iodinated Contrast Media - problems IV Dye] and my bp went up latex Allergy Rash Verified 02/08/21 22:41 pantoprazole sodium Allergy Rash Verified 02/08/21 22:41 [From Protonix] phenobarbital [From ] Allergy Hives Verified 02/08/21 22:41 promethazine HCl Allergy Anaphylaxis Verified 02/08/21 22:41 [From Phenergan] ramipril Allergy Unknown Verified 02/08/21 22:41 scopolamine hydrobromide Allergy Hives Verified 02/08/21 22:41 [From ] ziprasidone mesylate Allergy Unknown Verified 02/08/21 22:41 [From Geodon] Sulfa (Sulfonamide AdvReac Vomiting Verified 02/08/21 22:41 Antibiotics) ziprasidone HCl [From Geodon] AdvReac tremors Verified 02/08/21 22:41 VIDODIN TUSS Allergy Itching Uncoded 02/08/21 22:41 Amlodipine AdvReac Vomiting Uncoded 02/08/21 22:41 Family History Sister Myocardial infarction Colon cancer Mother Hypertension Arthritis Brain aneurysm Sister Colon cancer Surgical History bladder sling History of uterine suspension procedure Hx of cholecystectomy left foot S/P carpal tunnel release Social History Smoking Status: Current every day smoker tobacco type: cigarettes Tobacco: How many years used: 26 alcohol intake: never substance use type: does not use caffeine: Yes Type: coffee ROS ROS ED Constitutional Constitutional ED: Reports other Details: Fatigue ; Denies chills, fever(s) or sweats Eyes Eyes: Denies blurry vision or change in vision ENT ENT ED: Reports hoarseness, loss taste/smell, nasal congestion, rhinorrhea, sore throat and other; Denies ear pain Cardiovascular Cardiovascular: Denies chest pain, palpitations or racing heartbeat Respiratory/Chest Respiratory/Chest: Reports cough and dyspnea; Denies sputum Gastrointestinal Gastrointestinal: Denies abdominal pain, constipation, diarrhea or vomiting Genitourinary Genitourinary ED: Denies dysuria, hematuria or urinary frequency Musculoskeletal Musculoskeletal: Reports myalgias; Denies arthralgias or neck pain Integumentary Denies abscess, Abrasions or rash Neurologic Neurologic: Reports headache(s); Denies paresthesias or weakness Psychiatric Psychiatric: Denies anxiety, depression, suicidal ideation or suicidal thoughts Endocrine Endocrinology: Denies polydipsia or polyuria EXAM Physical Exam Const Vital Signs: 02/08/21 22:41 02/08/21 22:58 02/08/21 23:13 Temperature 97.8 F 97.8 F Temperature Source Temporal Temporal Pulse Rate 74 74 Respiratory Rate 15 15 Respiratory Pattern Tachypnea Blood Pressure 142/112 H 142/112 H Blood Pressure Mean 122 122 Pulse Ox 98 98 Oxygen Delivery Method Room Air Room Air 02/09/21 00:12 02/09/21 01:07 02/09/21 02:36 Temperature 97.8 F 98.9 F Temperature Source Temporal Temporal Pulse Rate 74 63 62 Respiratory Rate 15 21 H 18 Respiratory Pattern Blood Pressure 142/112 H 129/85 H 99/57 L Blood Pressure Mean 122 99 71 Pulse Ox 98 97 94 Oxygen Delivery Method Room Air Room Air 02/09/21 03:31 Temperature Temperature Source Pulse Rate 60 Respiratory Rate 16 Respiratory Pattern Blood Pressure 104/55 L Blood Pressure Mean Pulse Ox 95 Oxygen Delivery Method Positive obese General Appearance ED: NAD Nutritional Appearance: obese HEENT Reports TM's clear, moist mucous membranes and other Nasal congestion, percussion tenderness over frontal sinuses. atraumatic Tympanic Membrane ED: Yes TM's clear Eyes PERRL and EOMs intact bilaterally Neck no lymphadenopathy and supple Chest Wall Chest: other Resp normal respiratory effort and clear to auscultation bilaterally Auscultation: Negative for rales, rhonchi or wheezes Cardio regular rate and regular rhythm GI non-tender and non-distended Palpation: soft Back/Spine normal to inspection General Back: Negative for tenderness Extremity normal to inspection General Extremety ED: Negative for tenderness Neuro oriented x3 and CN's II-XII intact bilaterally Sensorium / Orientation: alert Psych mental status grossly normal Thought Process: normal thought process Skin no wounds Lesions: no lesions Rashes: no rashes MDM MDM MDM Narrative Medical decision making narrative: Patient arrives with viral symptoms consistent with COVID-19. She is short of breath mildly and has a cough but she is not saying she has chest pain. I did obtain an EKG due to her medical history and this appears to be a sinus rhythm at 66 bpm without signs of ischemic change as interpreted by myself. There is 1 PVC. Chest x-ray shows no obvious acute cardiopulmonary process however the left lower lung is not in the field. Radiology does agree. Patient has an elevated D-dimer and will be getting a CTA. Patient has allergy to contrast dye which includes elevated blood pressure and mild shortness of breath. Is not appear to be anaphylactic. Patient had CTA in December and was premedicated and states that she did well. She is given Solu-Medrol and Benadryl and we will wait an hour until CT. Patient's renal function is at baseline. Electrolytes are within normal limits. Troponin is negative. Patient is not leukopenic or lymphopenic. LFTs are not elevated. Procalcitonin is negative. On reevaluation the patient was complaining of some vertiginous dizziness but otherwise she felt well. She was given meclizine and did improve. Patient is not requiring any oxygen. Her vital signs are stable and she is afebrile. Her work-up is otherwise unremarkable. She feels comfo rtable being discharged home at this time. Patient given a wait and see prescription for Augmentin for her sinus pain if it continues for more than 10 days, she gets a fever, or has worsening or purulent drainage. Patient will follow up with her PCP to ensure resolution. Impression: 1. Sinus congestion 2. Viral syndrome Lab Data Attestation: I reviewed the patient's lab results. Labs: Laboratory Results - last 24 hr 02/08/21 02/08/21 02/08/21 23:30 23:40 23:40 WBC 7.2 RBC 4.92 Hgb 14.7 Hct 43.3 MCV 88.0 MCH 29.9 MCHC 33.9 RDW Std Deviation 43.6 RDW Coeff of Yonathan 13.4 Plt Count 265 MPV 10.1 Immature Gran % (Auto) 0.400 Neut % (Auto) 61.8 Lymph % (Auto) 24.5 Gordon % (Auto) 8.2 Eos % (Auto) 4.7 Baso % (Auto) 0.4 Absolute Neuts (auto) 4.5 Absolute Lymphs (auto) 1.77 Nucleated RBC % 0 D-Dimer Quant (PE/DVT) 0.57 H* Sodium Potassium Chloride Carbon Dioxide Anion Gap BUN Creatinine Estim Creat Clear Calc Est GFR (MDRD) Af Amer Est GFR (MDRD) Non-Af BUN/Creatinine Ratio Glucose Calcium Total Bilirubin AST ALT Alkaline Phosphatase Troponin I Total Protein Albumin Globulin Albumin/Globulin Ratio Procalcitonin COVID-19 (ARIELA) Not Detected 02/08/21 02/08/21 23:40 23:40 WBC RBC Hgb Hct MCV MCH MCHC RDW Std Deviation RDW Coeff of Yonathan Plt Count MPV Immature Gran % (Auto) Neut % (Auto) Lymph % (Auto) Gordon % (Auto) Eos % (Auto) Baso % (Auto) Absolute Neuts (auto) Absolute Lymphs (auto) Nucleated RBC % D-Dimer Quant (PE/DVT) Sodium 135 L Potassium 3.9 Chloride 100 Carbon Dioxide 29.0 Anion Gap 6 BUN 20 H Creatinine 1.26 H Estim Creat Clear Calc 42.54 Est GFR (MDRD) Af Amer 56 L Est GFR (MDRD) Non-Af 47 L BUN/Creatinine Ratio 15.9 Glucose 99 Calcium 9.1 Total Bilirubin 0.20 AST 8 L ALT 31 Alkaline Phosphatase 101 Troponin I < 0.015 Total Protein 6.9 Albumin 3.8 Globulin 3.1 Albumin/Globulin Ratio 1.2 Procalcitonin < 0.01 COVID-19 (ARIELA) Radiography Diagnostic Testing: Radiology Impression Chest X-Ray 02/08/21 23:26 IMPRESSION: Stable cardiac enlargement. No pulmonary edema, congestive heart failure or confluent pneumonia. Limited penetration left base, please see above. Electronically Signed: Lilliam Pringle MD at 0:19 EDT , Service support , Chest CTA 02/09/21 00:13 IMPRESSION: No demonstrated pulmonary embolism, aneurysm, leak or arterial dissection. Stable scarring and remote atheromatous exposure. Electronically Signed: Lilliam Pringle MD at 2:15 EDT , Service support , Discharge Plan Triage Chief Complaint: Cough ED Provider: Glen Dutta Dx/Rx/DC Orders Clinical Impression: Viral syndrome Instructions: ED Viral Syndrome (Adult) Prescriptions: New amoxicillin-pot clavulanate 875-125 mg tablet 875 mg PO Q12H Qty: 20 RF: 0 No Action nitroglycerin 0.4 mg tablet, sublingual 0.4 mg SUBLINGUAL PRN PRN (Reason: CHEST PAIN) Qty: 20 RF: 0 losartan 100 mg tablet 50 mg PO DAILY RF: 0 furosemide 40 mg tablet 40 mg PO BID Qty: 90 RF: 1 cholecalciferol (vitamin D3) 1,250 mcg (50,000 unit) capsule 50,000 unit PO FR Qty: 12 RF: 1 oxcarbazepine 600 MG tablet 600 tab PO QHS RF: 0 hydroxyzine pamoate 50 MG capsule 50 mg PO Q6H PRN (Reason: Anxiety) RF: 0 trazodone 100 MG tablet 100 mg PO QHS RF: 0 aripiprazole 5 MG tablet 5 mg PO DAILY RF: 0 prednisolone acetate 1 DROP drops,suspension 1 drp LEFT EYE TID RF: 0 ipratropium-albuterol 1 PUFF inhaler 1 puff INHALATION 4X/DAY RF: 0 fluticasone propionate 16 GM spray,suspension 1 spray NASAL BID RF: 0 loratadine 10 MG tablet 10 mg PO DAILY RF: 0 ascorbic acid (vitamin C) [Vitamin C] 1,000 mg Tablet 1 g PO DAILY RF: 0 budesonide-formoterol [Symbicort] 160-4.5 mcg/actuation Hfa Aerosol Inhaler 2 puff INHALATION BID RF: 0 Combivent Respimat 20-100 mcg/actuation Mist 1 puff INHALATION Q4H RF: 0 nifedipine 60 mg tablet extended release 24hr 30 mg PO BID RF: 0 guaifenesin 1,200 mg tablet extended release 12hr 600 mg PO BID Qty: 60 RF: 1 levothyroxine 50 mcg tablet 50 mcg PO DAILY Qty: 90 RF: 3 spironolactone 25 mg tablet 25 mg PO DAILY Qty: 90 RF: 3 aspirin 81 mg tablet,delayed release (DR/EC) 81 mg PO DAILY@0800 Qty: 90 RF: 3 hydralazine 50 mg tablet 50 mg PO TID 90 Days Qty: 270 RF: 3 melatonin 10 mg capsule 10 mg PO QHS Qty: 90 RF: 3 Primary Care Provider: Scarlet Navarro Referrals: Scarlet Navarro MD [Primary Care Provider] - Disposition Discharge Date/Time: 02/09/21 03:32
[2021-02-08 23:58] LABS: Absolute Lymphocyte Count 1.77 X10^3/uL (0.83-4.51); Absolute Neutrophil Count 4.5 X10^3/uL (2.0-7.7); Basophil# 0.03 X10^3/uL; Basophil% 0.4 % (0-1); Eosinophil# 0.34 X10^3/uL; Eosinophils% 4.7 % (0-5); Hematocrit 43.3 % (37-47); Hemoglobin 14.7 g/dL (12.0-15.0); Lymphocyte # 1.77 X10^3/ul (0.83-4.51); Lymphocyte % 24.5 % (19-41); Mean Corp Hgb Conc 33.9 g/dL (32-36); Mean Corpuscular Hgb 29.9 pg (27.0-32.0); Mean Platelet Vol. 10.1 fl (6.2-12.0); Monocyte# 0.59 X10^3/uL; Monocyte% 8.2 % (0-10); NRBC Flagged by Analyzer 0 % (0-5); Neutrophil # 4.45 X10^3/uL (2.7-7.7); Neutrophil % 61.8 % (47-70); Platelet Count 265 K/mm3 (150-450); RBC Distribution Width CV 13.4 % (11.6-14.6); RBC Distribution Width SD 43.6 fl (35.1-43.9); Red Blood Count 4.92 M/mm3 (4.2-5.4); White Blood Count 7.2 K/mm3 (4.4-11.0)
[2021-02-09 00:10] LABS: D-Dimer Quantitative (DVT/PE) 0.57 FEU/ug/m (0.27-0.49)
[2021-02-09 00:12] VITALS: BP 142/112; PULSE 74; RESP 15; TEMP 36.6; O2SAT 98
--- NOTE | 2021-02-09 00:13 | CT_ITS ---
STUDY: CTA CHEST REASON FOR EXAM: Female, 56 years old. shortness of breath RADIATION DOSAGE (If Supplied By Facility): CTDIvol = ( 10.00 ) mGy, DLP = ( 529.63 ) mGycm TECHNIQUE: The examination was performed with the intravenous administration of IV 100mL Isovue-370. Post-processing of the angiographic images was performed, with multiplanar reformation and 3D reconstruction. Individualized dose optimization techniques were used for this CT. COMPARISON: CTA chest 03/29/2019. 06/19/2017 FINDINGS: Normal enhancement of the main pulmonary artery and right and left pulmonary arteries. Normal enhancement of the bilateral peripheral pulmonary arteries. There is no demonstrated pulmonary embolism. Normal thoracic aorta and visualized great vessels. There is no demonstrated aortic dissection. Normal heart and pericardium. Normal mediastinum. There are stable calcified right hilar lymph nodes. Normal visualized trachea and bronchi. The lungs are well expanded. Stable scarring in the left lower lobe, nonspecific compression of the dependent lung parenchyma, stable pleural-based noncalcified nodule in the left upper lobe 0.35 cm, stable calcified granuloma right lower lobe. Normal pleura. Normal chest wall structures. Normal osseous structures. Normal visualized upper abdomen. CT/CTA Chest W/WO Contrast IMPRESSION: No demonstrated pulmonary embolism, aneurysm, leak or arterial dissection. Stable scarring and remote atheromatous exposure. Electronically Signed: Lilliam Pringle MD at 2:15 EDT , Service support ,
[2021-02-09 00:18] LABS: ALB/GLOB Ratio 1.2 RATIO (0.9-2.4); AST(SGOT) 8 U/L (15-37); Alanine Aminotransfer ALT/SGPT 31 U/L (13-56); Albumin, Serum 3.8 g/dL (3.2-5.0); Alkaline Phosphatase 101 U/L (45-117); Anion Gap 6 (5-15); BUN 20 mg/dL (7-18); BUN/Creat Ratio 15.9 RATIO (10-20); Calcium,Total 9.1 mg/dL (8.5-10.1); Chloride 100 mmol/L (98-107); Creatinine, Serum 1.26 mg/dL (0.55-1.02); EST Glomerular Filtration Rate 47 mL/min (>60); Est Glom Filt Rate - Afr Amer 56 mL/min (>60); Estimated Creatinine Clearance 42.54 ml/min; Globulin 3.1 g/dL (2.2-4.2); Glucose 99 mg/dL (74-106); Potassium 3.9 mmol/L (3.5-5.1); Protein, Total 6.9 g/dL (6.4-8.2); Sodium Level 135 mmol/L (136-145)
[2021-02-09 00:27] LABS: Procalcitonin < 0.01 ng/mL (0.00-0.09)
[2021-02-09] MEDS: MethylPREDNISolone 125 MG/2 ML Vial IV (00:28)
[2021-02-09] MEDS: DiphenhydrAMINE 50 MG/ML Syringe 25 MG IV (00:28)
[2021-02-09 01:07] VITALS: BP 129/85; PULSE 63; RESP 21; O2SAT 97
[2021-02-09] MEDS: Meclizine HCl 25 MG Tablet PO (02:35)
[2021-02-09 02:36] VITALS: BP 99/57; PULSE 62; RESP 18; TEMP 37.2; O2SAT 94
[2021-02-09 03:31] VITALS: BP 104/55; PULSE 60; RESP 16; O2SAT 95
== END 2021-02-09 03:32 | disposition home or self-care (01) ==
LOC: ED 23:53
PROVIDERS: Emergency Provider Student in an Organized Health Care Education/Training Program; PCP Internal Medicine
DX: B34.9 Viral infection, unspecified (principal); R05 Cough; R09.81 Nasal congestion; J34.89 Other specified disorders of nose and nasal sinuses; R43.8 Other disturbances of smell and taste; J02.9 Acute pharyngitis, unspecified; R06.02 Shortness of breath; R79.89 Other specified abnormal findings of blood chemistry; I49.3 Ventricular premature depolarization; E66.9 Obesity, unspecified; Z68.41 Body mass index [BMI] 40.0-44.9, adult; E03.9 Hypothyroidism, unspecified; E78.5 Hyperlipidemia, unspecified; F20.9 Schizophrenia, unspecified; F31.9 Bipolar disorder, unspecified; G47.33 Obstructive sleep apnea (adult) (pediatric); I13.0 Hypertensive heart and chronic kidney disease with heart failure and stage 1 through stage 4 chronic kidney disease, or unspecified chronic kidney disease; N18.30 Chronic kidney disease, stage 3 unspecified; I50.9 Heart failure, unspecified; I48.0 Paroxysmal atrial fibrillation; I95.1 Orthostatic hypotension; I34.0 Nonrheumatic mitral (valve) insufficiency; I35.1 Nonrheumatic aortic (valve) insufficiency; I73.9 Peripheral vascular disease, unspecified; J44.9 Chronic obstructive pulmonary disease, unspecified; K21.9 Gastro-esophageal reflux disease without esophagitis; M19.90 Unspecified osteoarthritis, unspecified site; G43.909 Migraine, unspecified, not intractable, without status migrainosus; Z86.711 Personal history of pulmonary embolism; Z86.73 Personal history of transient ischemic attack (TIA), and cerebral infarction without residual deficits; Z87.19 Personal history of other diseases of the digestive system; Z79.82 Long term (current) use of aspirin; Z79.899 Other long term (current) drug therapy; F17.210 Nicotine dependence, cigarettes, uncomplicated
CPT/HCPCS: 71045; 71275; 80053; 84145; 84484; 85025; 85379; 87635; 93005; 96374; 96375; 99285; Q9967; A4216; U0002

== ENCOUNTER 2021-02-19 15:44 | Emergency (ER) | payer MEDICAID, SELFPAY ==
[2021-02-19 15:45] VITALS: BP 130/77; PULSE 90; RESP 15; TEMP 37.5; O2SAT 97; BMI 44.9
--- NOTE | 2021-02-19 16:15 | EDS_ITS ---
HPI History of Present Illness Chief Complaint: Back Narrative Narrative: 56-year-old female presenting with right flank pain. She states it radiates to her right side. She states this started about 2 days ago and was dull initially and now is more sharp. She denies history of kidney stones. She does have urinary frequency without hematuria or dysuria until today when she arrived in the ED and she noted dysuria for her urinalysis. She denies fever or chills. She has nausea without vomiting. She denies changes in bowel habits. She denies suzanna abdominal pain. PFSH PFSH Medical History Aortic valve insufficiency Arthralgia of right hip Asthma Asthma Bipolar 1 disorder Chest pain Chest pain CKD (chronic kidney disease) CKD (chronic kidney disease) stage 3, GFR 30-59 ml/min Conversion disorder Conversion disorder with abnormal movement Convulsion, non-epileptic COPD, mild Cyst Depression Enlarged aorta Gastritis GERD (gastroesophageal reflux disease) Heart failure Hip dislocation, right HLD (hyperlipidemia) HTN (hypertension) Hypertensive crisis without congestive heart failure Hypokalemia Hyponatremia Hypothyroidism Intertriginous dermatitis associated with moisture Left arm swelling Migraine Migraines Non-convulsive status epilepticus Non-rheumatic mitral regurgitation Nonrheumatic aortic (valve) insufficiency Orthostatic hypotension DAPHNE (obstructive sleep apnea) Osteoarthritis PAF (paroxysmal atrial fibrillation) Peripheral artery disease Psychosis Pulmonary embolism Right hip pain Schizo NEC, chrn/exacerb Schizophrenia Stroke Tobacco use Home Medications oxcarbazepine 600 tab PO QHS 09/06/19 [History Last Taken 12/19/20] hydroxyzine pamoate 50 mg PO Q6H PRN 10/18/19 [History Last Taken 12/20/20] nitroglycerin 0.4 mg sublingual tablet 0.4 mg SUBLINGUAL PRN PRN #20 tab 09/10/20 [Rx Last Taken 12/17/20] aripiprazole 5 mg PO DAILY 10/31/20 [History Last Taken 12/19/20] trazodone 100 mg PO QHS 10/31/20 [History Last Taken 12/19/20] fluticasone propionate 1 spray NASAL BID 12/20/20 [History Last Taken 12/20/20] ipratropium-albuterol 1 puff INHALATION 4X/DAY 12/20/20 [History Last Taken 12/20/20] loratadine 10 mg PO DAILY 12/20/20 [History Last Taken 12/20/20] prednisolone acetate 1 drp LEFT EYE TID 12/20/20 [History Last Taken 12/20/20] cholecalciferol (vitamin D3) 1,250 mcg (50,000 unit) capsule 50,000 unit PO FR #12 cap 12/28/20 [Rx Last Taken Unknown] guaifenesin 1,200 mg tablet, extended release 12 hr 600 mg PO BID #60 tab 01/03/21 [Rx Last Taken Unknown] levothyroxine 50 mcg tablet 50 mcg PO DAILY #90 tab 01/03/21 [Rx Last Taken Unknown] spironolactone 25 mg tablet 25 mg PO DAILY #90 tab 01/03/21 [Rx Last Taken Unknown] aspirin 81 mg tablet,delayed release 81 mg PO DAILY@0800 #90 tablet 01/19/21 [Rx Last Taken Unknown] hydralazine 50 mg tablet 50 mg PO TID 90 Days #270 tab 01/19/21 [Rx Last Taken Unknown] melatonin 10 mg capsule 10 mg PO QHS #90 cap 01/19/21 [Rx Last Taken Unknown] furosemide 40 mg tablet 40 mg PO BID #90 tablet 02/04/21 [Rx Last Taken Unknown] losartan 100 mg tablet 50 mg PO DAILY tab 02/04/21 [History Last Taken Unknown] ascorbic acid (vitamin C) [Vitamin C] 1 g PO DAILY 02/08/21 [History Last Taken Unknown] budesonide-formoterol [Symbicort] 2 puff INHALATION BID 02/08/21 [History Last Taken Unknown] ipratropium-albuterol [Combivent Respimat] 1 puff INHALATION Q4H 02/08/21 [History Last Taken Unknown] nifedipine 30 mg PO BID 02/08/21 [History Last Taken Unknown] amoxicillin-pot clavulanate 875 mg PO Q12H #20 tablet 02/09/21 [Rx Last Taken Unknown] Allergy/AdvReac Type Severity Reaction Status Date / Time adhesive tape Allergy Rash Verified 02/19/21 15:45 atropine sulfate Allergy Hives Verified 02/19/21 15:45 [From ] codeine phosphate Allergy breathing Verified 02/19/21 15:45 [From Tylenol-Codeine #3] problems divalproex sodium Allergy Unknown Verified 02/19/21 15:45 [From Depakote] hydromorphone HCl Allergy facial Verified 02/19/21 15:45 [From Dilaudid] blisters,itching hyoscyamine sulfate Allergy Hives Verified 02/19/21 15:45 [From ] Iodinated Contrast Media Allergy breathing Verified 02/19/21 15:45 [Iodinated Contrast Media - problems IV Dye] and my bp went up latex Allergy Rash Verified 02/19/21 15:45 pantoprazole sodium Allergy Rash Verified 02/19/21 15:45 [From Protonix] phenobarbital [From ] Allergy Hives Verified 02/19/21 15:45 promethazine HCl Allergy Anaphylaxis Verified 02/19/21 15:45 [From Phenergan] ramipril Allergy Unknown Verified 02/19/21 15:45 scopolamine hydrobromide Allergy Hives Verified 02/19/21 15:45 [From ] ziprasidone mesylate Allergy Unknown Verified 02/19/21 15:45 [From Geodon] Sulfa (Sulfonamide AdvReac Vomiting Verified 02/19/21 15:45 Antibiotics) ziprasidone HCl [From Geodon] AdvReac tremors Verified 02/19/21 15:45 VIDODIN TUSS Allergy Itching Uncoded 02/19/21 15:45 Amlodipine AdvReac Vomiting Uncoded 02/19/21 15:45 Family History Sister Myocardial infarction Colon cancer Mother Hypertension Arthritis Brain aneurysm Sister Colon cancer Surgical History bladder sling History of uterine suspension procedure Hx of cholecystectomy left foot S/P carpal tunnel release Social History Smoking Status: Current every day smoker tobacco type: cigarettes Tobacco: How many years used: 26 alcohol intake: never substance use type: does not use caffeine: Yes Type: coffee ROS ROS ED Constitutional Constitutional ED: Denies chills, fever(s) or sweats Eyes Eyes: Denies blurry vision or change in vision ENT ENT ED: Denies ear pain, rhinorrhea or sore throat Cardiovascular Cardiovascular: Denies chest pain, palpitations or racing heartbeat Respiratory/Chest Respiratory/Chest: Denies cough, dyspnea or sputum Gastrointestinal Gastrointestinal: Reports nausea; Denies abdominal pain, constipation, diarrhea or vomiting Genitourinary Genitourinary ED: Reports dysuria and urinary frequency; Denies hematuria Musculoskeletal Musculoskeletal: Reports other Details: Right flank pain. ; Denies arthralgias, myalgias or neck pain Integumentary Denies abscess, Abrasions or rash Neurologic Neurologic: Denies headache(s), paresthesias or weakness Psychiatric Psychiatric: Denies anxiety, depression, suicidal ideation or suicidal thoughts Endocrine Endocrinology: Denies polydipsia or polyuria EXAM Physical Exam Const Vital Signs: 02/19/21 15:45 02/19/21 17:09 Temperature 99.5 F H 98.3 F Temperature Source Temporal Temporal Pulse Rate 90 68 Respiratory Rate 15 16 Blood Pressure 130/77 H 116/55 L Blood Pressure Mean 94 75 Pulse Ox 97 100 Oxygen Delivery Method Room Air Room Air Positive obese General Appearance ED: NAD; Negative for pallor Nutritional Appearance: obese HEENT Reports normocephalic, head/scalp atraumatic and moist mucous membranes trauma Eyes PERRL and EOMs intact bilaterally Neck no lymphadenopathy and supple Chest Wall inspection of chest normal and palpation of chest normal Resp normal respiratory effort and clear to auscultation bilaterally Auscultation: Negative for rales, rhonchi or wheezes Cardio regular rate and regular rhythm GI normal to inspection, nondistended, normoactive bowel sounds and non-distended Auscultation: normoactive bowel sounds Palpation: soft Narrative: Deferred Back/Spine no CVA tenderness Back/Spine Narrative: Right CVA tenderness. General Back: CVA tenderness Cervical Spine: Negative for cervical spine tenderness Extremity normal to inspection General Extremety ED: Yes edema and tenderness General Extremity: edema Neuro oriented x3 and CN's II-XII intact bilaterally Sensorium / Orientation: alert Motor Exam: strength 5/5 throughout Psych mental status grossly normal Attitude: No agitated Skin no rashes or lesions noted and no wounds General Skin Exam: Negative for jaundice or pallor MDM MDM MDM Narrative Medical decision making narrative: Patient presenting with right flank pain. She states is chronic gradually built up. She denies any direct injury. Patient had urinalysis which is negative for UTI or hematuria. Lab work is all within normal limits. Patient had CT of the abdomen pelvis without IV contrast due to allergy and likelihood of possible kidney stone however this is negative for acute findings. Patient was given 2 doses of morphine in ED with good control of her pain. Patient counseled this is likely musculoskeletal in nature. She will use alternating ice and heat as well as Tylenol and ibuprofen at home. Patient stable for discharge at this time. She will return for any new or worsening symptoms. Impression: 1. Right flank pain Lab Data Attestation: I reviewed the patient's lab results. Labs: Laboratory Results - last 24 hr 02/19/21 02/19/21 02/19/21 16:10 16:25 16:25 WBC 7.3 RBC 4.84 Hgb 14.3 Hct 42.5 MCV 87.8 MCH 29.5 MCHC 33.6 RDW Std Deviation 44.0 H RDW Coeff of Yonathan 13.6 Plt Count 272 MPV 9.8 Immature Gran % (Auto) 0.400 Neut % (Auto) 64.8 Lymph % (Auto) 21.0 [place] % (Auto) 10.0 Eos % (Auto) 3.4 Baso % (Auto) 0.4 Absolute Neuts (auto) 4.7 Absolute Lymphs (auto) 1.53 Nucleated RBC % 0 Sodium 136 Potassium 3.9 Chloride 101 Carbon Dioxide 29.0 Anion Gap 6 BUN 22 H Creatinine 1.28 H Estim Creat Clear Calc 41.87 Est GFR (MDRD) Af Amer 55 L Est GFR (MDRD) Non-Af 46 L BUN/Creatinine Ratio 17.2 Glucose 101 Calcium 9.2 Urine Color Yellow Urine Clarity Clear Urine pH 7.0 Ur Specific [place] 1.010 Urine Protein Negative Urine Glucose (UA) Normal Urine Ketones Negative Urine Occult Blood Negative Urine Nitrite Negative Urine Bilirubin Negative Urine Urobilinogen Normal Ur Leukocyte Esterase 25 H Urine RBC 0 SEEN Urine WBC 0 SEEN Ur Squamous Epith Cells 0-5 SEEN Urine Bacteria 0 SEEN Urine Mucus 0 SEEN Radiography Diagnostic Testing: Radiology Impression Abdomen/Pelvis CT 02/19/21 17:13 IMPRESSION: No acute abnormalities in the abdomen or pelvis. Specifically, no evidence of urinary tract stones. Electronically Signed: Toni Alvarez MD at 17:45 EDT Tel , Service support , Discharge Plan Triage Chief Complaint: Back ED Provider: Glen Dutta Dx/Rx/DC Orders Instructions: ED Flank Pain, Uncertain Cause Prescriptions: No Action nitroglycerin 0.4 mg tablet, sublingual 0.4 mg SUBLINGUAL PRN PRN (Reason: CHEST PAIN) Qty: 20 RF: 0 losartan 100 mg tablet 50 mg PO DAILY RF: 0 furosemide 40 mg tablet 40 mg PO BID Qty: 90 RF: 1 cholecalciferol (vitamin D3) 1,250 mcg (50,000 unit) capsule 50,000 unit PO FR Qty: 12 RF: 1 oxcarbazepine 600 MG tablet 600 tab PO QHS RF: 0 hydroxyzine pamoate 50 MG capsule 50 mg PO Q6H PRN (Reason: Anxiety) RF: 0 trazodone 100 MG tablet 100 mg PO QHS RF: 0 aripiprazole 5 MG tablet 5 mg PO DAILY RF: 0 prednisolone acetate 1 DROP drops,suspension 1 drp LEFT EYE TID RF: 0 ipratropium-albuterol 1 PUFF inhaler 1 puff INHALATION 4X/DAY RF: 0 fluticasone propionate 16 GM spray,suspension 1 spray NASAL BID RF: 0 loratadine 10 MG tablet 10 mg PO DAILY RF: 0 ascorbic acid (vitamin C) [Vitamin C] 1,000 mg Tablet 1 g PO DAILY RF: 0 budesonide-formoterol [Symbicort] 160-4.5 mcg/actuation Hfa Aerosol Inhaler 2 puff INHALATION BID RF: 0 Combivent Respimat 20-100 mcg/actuation Mist 1 puff INHALATION Q4H RF: 0 nifedipine 60 mg tablet extended release 24hr 30 mg PO BID RF: 0 amoxicillin-pot clavulanate 875-125 mg tablet 875 mg PO Q12H Qty: 20 RF: 0 guaifenesin 1,200 mg tablet extended release 12hr 600 mg PO BID Qty: 60 RF: 1 levothyroxine 50 mcg tablet 50 mcg PO DAILY Qty: 90 RF: 3 spironolactone 25 mg tablet 25 mg PO DAILY Qty: 90 RF: 3 aspirin 81 mg tablet,delayed release (DR/EC) 81 mg PO DAILY@0800 Qty: 90 RF: 3 hydralazine 50 mg tablet 50 mg PO TID 90 Days Qty: 270 RF: 3 melatonin 10 mg capsule 10 mg PO QHS Qty: 90 RF: 3 Primary Care Provider: Scarlet Navarro Referrals: Scarlet Navarro MD [Primary Care Provider] - Disposition Disposition: Home, self care
[2021-02-19 16:21] LABS: Bacteria 0 SEEN /hpf (None Seen); Mucous, Urine 0 SEEN /hpf (<or=2+); Red Blood Cells-Urine 0 SEEN /hpf (0-5); White Blood Cells 0 SEEN /hpf (0-5)
[2021-02-19] MEDS: 0.9% Normal Saline 1,000 ML 999 ML IV (16:23)
[2021-02-19] MEDS: Morphine 4 MG/ML Syringe IV ×2 (16:23→17:54)
[2021-02-19] MEDS: Ondansetron 4 MG/2 ML Vial IV (16:23)
[2021-02-19 16:24] LABS: Color, Urine Yellow (Yellow); Glucose, Dipstick Normal (Normal); Ketone-Dipstick Negative (Negative); Leukocyte Esterase-Dipstick 25 /ul (Negative); Nitrite-Dipstick Negative (Negative); Occult Blood-Urine Negative /ul (Negative); Protein-Dipstick Negative (Negative); Urine Bilirubin Dipstick Negative (Negative); Urine Clarity Clear (Clear); Urine Urobilinogen Normal (Normal)
[2021-02-19 16:30] LABS: Absolute Lymphocyte Count 1.53 X10^3/uL (0.83-4.51); Absolute Neutrophil Count 4.7 X10^3/uL (2.0-7.7); Basophil# 0.03 X10^3/uL; Basophil% 0.4 % (0-1); Eosinophil# 0.25 X10^3/uL; Eosinophils% 3.4 % (0-5); Hematocrit 42.5 % (37-47); Hemoglobin 14.3 g/dL (12.0-15.0); Lymphocyte # 1.53 X10^3/ul (0.83-4.51); Mean Corp Hgb Conc 33.6 g/dL (32-36); Mean Corpuscular Hgb 29.5 pg (27.0-32.0); Mean Corpuscular Volume 87.8 fL (81-99); Mean Platelet Vol. 9.8 fl (6.2-12.0); Monocyte# 0.73 X10^3/uL; NRBC Flagged by Analyzer 0 % (0-5); Neutrophil # 4.72 X10^3/uL (2.7-7.7); Neutrophil % 64.8 % (47-70); Platelet Count 272 K/mm3 (150-450); RBC Distribution Width CV 13.6 % (11.6-14.6); Red Blood Count 4.84 M/mm3 (4.2-5.4); White Blood Count 7.3 K/mm3 (4.4-11.0)
[2021-02-19 16:38] LABS: Squamous Epithelial Cells - UA 0-5 SEEN /hpf (5-10)
[2021-02-19 16:45] LABS: Anion Gap 6 (5-15); BUN 22 mg/dL (7-18); BUN/Creat Ratio 17.2 RATIO (10-20); Calcium,Total 9.2 mg/dL (8.5-10.1); Chloride 101 mmol/L (98-107); Creatinine, Serum 1.28 mg/dL (0.55-1.02); EST Glomerular Filtration Rate 46 mL/min (>60); Est Glom Filt Rate - Afr Amer 55 mL/min (>60); Estimated Creatinine Clearance 41.87 ml/min; Glucose 101 mg/dL (74-106); Potassium 3.9 mmol/L (3.5-5.1); Sodium Level 136 mmol/L (136-145)
[2021-02-19 17:09] VITALS: BP 116/55; PULSE 68; RESP 16; TEMP 36.8; O2SAT 100
--- NOTE | 2021-02-19 17:13 | CT_ITS ---
INDICATION: right flank pain EXAMINATION: CT Abdomen And Pelvis W/O Contrast Injection TECHNIQUE: Helically acquired images were obtained of the abdomen and pelvis without the use of IV contrast. A radiation dose optimization technique was used for this scan. Oral contrast: None. COMPARISON: 07/15/2020 FINDINGS: Evaluation of the solid organs and vascular structures is limited without intravenous contrast. Visualized lung bases: Calcified granuloma in the right lung base. Left basilar scarring/atelectasis. Liver: Unremarkable Gallbladder: Surgically absent. Spleen: Unremarkable Pancreas: Unremarkable Adrenal Glands: Unremarkable Kidneys: Unremarkable Vasculature: Mild scattered aortoiliac atherosclerotic calcifications. GI Tract: Unremarkable Lymphadenopathy: None Peritoneum: No ascites. Bladder: Unremarkable Reproductive organs: Unremarkable Bones/Soft tissues: No suspicious osseous or soft tissue lesions CT/Abdomen/Pelvis without Cont IMPRESSION: No acute abnormalities in the abdomen or pelvis. Specifically, no evidence of urinary tract stones. Electronically Signed: Toni Alvarez MD at 17:45 EDT Tel , Service support ,
[2021-02-19 18:48] VITALS: BP 130/73; PULSE 66; RESP 18; O2SAT 95
== END 2021-02-19 18:49 | disposition home or self-care (01) ==
PROVIDERS: Emergency Provider Student in an Organized Health Care Education/Training Program; PCP Internal Medicine
DX: R10.9 Unspecified abdominal pain (principal); R35.0 Frequency of micturition; R11.0 Nausea; R30.0 Dysuria; E66.9 Obesity, unspecified; Z68.41 Body mass index [BMI] 40.0-44.9, adult; M16.11 Unilateral primary osteoarthritis, right hip; F31.9 Bipolar disorder, unspecified; I13.0 Hypertensive heart and chronic kidney disease with heart failure and stage 1 through stage 4 chronic kidney disease, or unspecified chronic kidney disease; I50.9 Heart failure, unspecified; N18.30 Chronic kidney disease, stage 3 unspecified; J44.9 Chronic obstructive pulmonary disease, unspecified; K21.9 Gastro-esophageal reflux disease without esophagitis; E03.9 Hypothyroidism, unspecified; E78.5 Hyperlipidemia, unspecified; F20.9 Schizophrenia, unspecified; F44.4 Conversion disorder with motor symptom or deficit; I35.1 Nonrheumatic aortic (valve) insufficiency; I34.0 Nonrheumatic mitral (valve) insufficiency; I48.0 Paroxysmal atrial fibrillation; I73.9 Peripheral vascular disease, unspecified; G47.33 Obstructive sleep apnea (adult) (pediatric); M19.90 Unspecified osteoarthritis, unspecified site; G43.909 Migraine, unspecified, not intractable, without status migrainosus; Z87.19 Personal history of other diseases of the digestive system; Z86.73 Personal history of transient ischemic attack (TIA), and cerebral infarction without residual deficits; Z86.711 Personal history of pulmonary embolism; Z79.82 Long term (current) use of aspirin; Z79.899 Other long term (current) drug therapy; F17.210 Nicotine dependence, cigarettes, uncomplicated
CPT/HCPCS: 74176; 80048; 81001; 85025; 96361; 96374; 96375; 96376; 99284; J7030; J2405

== ENCOUNTER → 2021-03-09 12:14 | Outpatient (CLI) | payer MEDICAID, SELFPAY ==
[2021-03-09 11:01] VITALS: BMI 45.1
--- NOTE | 2021-03-09 12:15 | RAD_ITS ---
STUDY: X-RAY - PELVIS AND RIGHT HIP REASON FOR EXAM: Female, 56 years old. right hip pain s/p fall TECHNIQUE: 3 views of the pelvis and hip. COMPARISON: None. FINDINGS: There is a non-specific bowel gas pattern. Normal visualized soft tissue structures. Normal bilateral iliac wings, sacroiliac joints and visualized sacrum. Normal bilateral superior and inferior pubic rami. Normal pubic symphysis. Normal bilateral ischial tuberosities. Normal visualized femoral head. Normal acetabulum. Normal hip joint. RAD/HIP, UNI W/ Pelvis 2-3 Views IMPRESSION: Normal x-ray examination of the pelvis and hip. Electronically Signed: Ilan Naqvi MD at 7:46 EDT Tel , Service support ,
== END ==
PROVIDERS: PCP Internal Medicine; Referring Provider Nurse Practitioner Family; Visit Provider Nurse Practitioner Family
DX: M25.551 Pain in right hip (principal)
CPT/HCPCS: 73502

== ENCOUNTER → 2021-04-11 10:00 | Outpatient (CLI) | payer MEDICAID, SELFPAY ==
[2021-04-07 18:18] VITALS: BMI 47.7
[2021-04-11 12:27] LABS: ALB/GLOB Ratio 1.2 RATIO (0.9-2.4); AST(SGOT) 15 U/L (15-37); Alanine Aminotransfer ALT/SGPT 36 U/L (13-56); Alkaline Phosphatase 110 U/L (45-117); Anion Gap 9 (5-15); BUN 28 mg/dL (7-18); BUN/Creat Ratio 21.2 RATIO (10-20); Calcium,Total 9.1 mg/dL (8.5-10.1); Chloride 96 mmol/L (98-107); Cholesterol 179 mg/dL (200); Creatinine, Serum 1.32 mg/dL (0.55-1.02); EST Glomerular Filtration Rate 44 mL/min (>60); Est Glom Filt Rate - Afr Amer 53 mL/min (>60); Globulin 3.4 g/dL (2.2-4.2); Glucose 100 mg/dL (74-106); High Density Lipoprotein 64 mg/dL; Potassium 3.9 mmol/L (3.5-5.1); Protein, Total 7.4 g/dL (6.4-8.2); Sodium Level 131 mmol/L (136-145); Triglycerides 136 mg/dL; Very Low Density Lipoprotein 27 mg/dL (5-40)
== END ==
PROVIDERS: PCP Internal Medicine; Visit Provider Internal Medicine
DX: Z00.00 Encounter for general adult medical examination without abnormal findings (principal)
CPT/HCPCS: 36415; 80053; 80061

== ENCOUNTER 2021-04-16 12:13 | Emergency (ER) | payer MEDICAID, SELFPAY ==
[2021-04-07 18:18] VITALS: BMI 47.7
[2021-04-16 12:16] VITALS: BP 172/80; PULSE 94; RESP 12; TEMP 36.2; O2SAT 96; BMI 46.6
--- NOTE | 2021-04-16 12:31 | EDS_ITS ---
HPI History of Present Illness Chief Complaint: Headache Informant: patient Onset/Context/Timing Onset: Weeks Context: Gradual Timing: Continuous Current Severity: Moderate Maximum Severity: Moderate Associated Symptoms/Injury Associated Symptoms: Positive for Nausea and Vomiting; Negative for Sore Throat, Sinus Pressure, Visual Changes, Blurred Vision and Visual Loss Injury - MACK: Negative for Direct Trauma, Fall and Assault Narrative Narrative: 56-year-old female history of a prior stroke valvular heart disease. Prior cholecystectomy. No prior head or neck surgery. States last Sunday start getting a headache felt like lightning strikes. Denies any trauma. No fever. No sinus congestion. She is on no blood thinners. There is no family history of intracranial bleeds. She had an extensive imaging work-up in December including an MRI of her brain, CTA and CT. She has a known obstructed middle cerebral artery. That is not new. She is never had bleeding. She has had associated nausea and vomiting light sensitivity and sound sensitivity and headache. She does not typically get headaches. She has no history herself of any type of aneurysm. Prior similar symptoms: No Recent Illness/Hospitalization: No PFSH PFSH Medical History Allergic rhinitis Aortic valve insufficiency Arthralgia of right hip Asthma Asthma Bipolar 1 disorder Chest pain Chest pain CKD (chronic kidney disease) CKD (chronic kidney disease) stage 3, GFR 30-59 ml/min Colon cancer screening Conversion disorder Conversion disorder with abnormal movement Convulsion, non-epileptic COPD, mild Cyst Depression Enlarged aorta Gastritis GERD (gastroesophageal reflux disease) GERD (gastroesophageal reflux disease) Heart failure Hip dislocation, right HLD (hyperlipidemia) HTN (hypertension) Hypertensive crisis without congestive heart failure Hypokalemia Hyponatremia Hyponatremia Hypothyroidism Intertriginous dermatitis associated with moisture Left arm swelling Migraine Migraines Non-convulsive status epilepticus Non-rheumatic mitral regurgitation Nonrheumatic aortic (valve) insufficiency Orthostatic hypotension DAPHNE (obstructive sleep apnea) Osteoarthritis Osteoarthritis of right hip PAF (paroxysmal atrial fibrillation) Peripheral artery disease Preventative health care Psychosis Pulmonary embolism Right hip pain Right hip pain Schizo NEC, chrn/exacerb Schizophrenia Stroke Tobacco use Home Medications oxcarbazepine 600 tab PO QHS 09/06/19 [History Last Taken 12/19/20] hydroxyzine pamoate 50 mg PO Q6H PRN 10/18/19 [History Last Taken 12/20/20] nitroglycerin 0.4 mg sublingual tablet 0.4 mg SUBLINGUAL PRN PRN #20 tab 09/10/20 [Rx Last Taken 12/17/20] aripiprazole 5 mg PO DAILY 10/31/20 [History Last Taken 12/19/20] trazodone 100 mg PO QHS 10/31/20 [History Last Taken 12/19/20] ipratropium-albuterol 1 puff INHALATION 4X/DAY 12/20/20 [History Last Taken 12/20/20] prednisolone acetate 1 drp LEFT EYE TID 12/20/20 [History Last Taken 12/20/20] cholecalciferol (vitamin D3) 1,250 mcg (50,000 unit) capsule 50,000 unit PO FR #12 cap 12/28/20 [Rx Last Taken Unknown] guaifenesin 1,200 mg tablet, extended release 12 hr 600 mg PO BID #60 tab 01/03/21 [Rx Last Taken Unknown] levothyroxine 50 mcg tablet 50 mcg PO DAILY #90 tab 01/03/21 [Rx Last Taken Unknown] aspirin 81 mg tablet,delayed release 81 mg PO DAILY@0800 #90 tablet 01/19/21 [Rx Last Taken Unknown] hydralazine 50 mg tablet 50 mg PO TID 90 Days #270 tab 01/19/21 [Rx Last Taken Unknown] melatonin 10 mg capsule 10 mg PO QHS #90 cap 01/19/21 [Rx Last Taken Unknown] losartan 100 mg tablet 50 mg PO DAILY tab 02/04/21 [History Last Taken Unknown] ascorbic acid (vitamin C) [Vitamin C] 1 g PO DAILY 02/08/21 [History Last Taken Unknown] ipratropium 20 mcg-albuterol 100 mcg/actuation mist for inhalation 1 puff INHALATION Q4H #4 g 03/02/21 [Rx Last Taken Unknown] compr.stocking,thigh,reg,x-lrg #2 ea 03/09/21 [Rx Last Taken Unknown] lidocaine 5 % topical patch 1 patch TOPICAL DAILY #30 ea 03/09/21 [Rx Last Taken Unknown] montelukast 10 mg tablet 10 mg PO QHS #90 tab 03/09/21 [Rx Last Taken Unknown] omeprazole 20 mg capsule,delayed release 20 mg PO DAILY #90 cap 03/09/21 [Rx Last Taken Unknown] meloxicam 7.5 mg tablet 7.5 mg PO DAILY PRN #30 tab 03/15/21 [Rx Last Taken Unknown] budesonide-formoterol HFA 160 mcg-4.5 mcg/actuation aerosol inhaler 2 puff INHALATION BID #10.2 g 03/16/21 [Rx Last Taken Unknown] fluticasone propionate 50 mcg/actuation nasal spray,suspension 1 spray NASAL BID #16 g 03/28/21 [Rx Last Taken Unknown] furosemide 40 mg tablet 40 mg PO BID #90 tablet 03/28/21 [Rx Last Taken Unknown] loratadine 10 mg tablet 10 mg PO DAILY #90 tab 03/28/21 [Rx Last Taken Unknown] spironolactone 25 mg tablet 25 mg PO DAILY #90 tab 03/28/21 [Rx Last Taken Unknown] polyethylene glycol 3350 17 gram/dose oral powder 17 g PO BID 04/07/21 [History Last Taken Unknown] nifedipine 60 mg tablet,extended release 24 hr 30 mg PO BID #90 tab 04/08/21 [Rx Last Taken Unknown] ondansetron 4 mg disintegrating tablet 4 mg PO Q8H PRN #30 tab 04/12/21 [Rx Last Taken Unknown] polyethylene glycol 3350 17 gram/dose oral powder 17 g PO BID PRN #850 g 04/13/21 [Rx Last Taken Unknown] Allergy/AdvReac Type Severity Reaction Status Date / Time adhesive tape Allergy Rash Verified 04/16/21 12:16 atropine sulfate Allergy Hives Verified 04/16/21 12:16 [From ] codeine phosphate Allergy breathing Verified 04/16/21 12:16 [From Tylenol-Codeine #3] problems divalproex sodium Allergy Unknown Verified 04/16/21 12:16 [From Depakote] hydromorphone HCl Allergy facial Verified 04/16/21 12:16 [From Dilaudid] blisters,itching hyoscyamine sulfate Allergy Hives Verified 04/16/21 12:16 [From ] Iodinated Contrast Media Allergy breathing Verified 04/16/21 12:16 [Iodinated Contrast Media - problems IV Dye] and my bp went up latex Allergy Rash Verified 04/16/21 12:16 pantoprazole sodium Allergy Rash Verified 04/16/21 12:16 [From Protonix] phenobarbital [From ] Allergy Hives Verified 04/16/21 12:16 promethazine HCl Allergy Anaphylaxis Verified 04/16/21 12:16 [From Phenergan] ramipril Allergy Unknown Verified 04/16/21 12:16 scopolamine hydrobromide Allergy Hives Verified 04/16/21 12:16 [From ] ziprasidone mesylate Allergy Unknown Verified 04/16/21 12:16 [From Geodon] Sulfa (Sulfonamide AdvReac Vomiting Verified 04/16/21 12:16 Antibiotics) ziprasidone HCl [From Geodon] AdvReac tremors Verified 04/16/21 12:16 VIDODIN TUSS Allergy Itching Uncoded 04/16/21 12:16 Amlodipine AdvReac Vomiting Uncoded 04/16/21 12:16 Family History Sister Myocardial infarction Colon cancer Mother Hypertension Arthritis Brain aneurysm Sister Colon cancer Surgical History bladder sling History of uterine suspension procedure Hx of cholecystectomy left foot S/P carpal tunnel release Social History Smoking Status: Current every day smoker tobacco type: cigarettes Tobacco: How many years used: 26 alcohol intake: never substance use type: does not use caffeine: Yes Type: coffee ROS ROS ED ROS Narrative Nausea and vomiting with a headache. Review of Systems ROS Unobtainable: Denies due to encephalopathy or due to endotracheal tube Constitutional Constitutional ED: Denies chills or fever(s) Eyes Eyes: Denies blurry vision or change in vision ENT ENT ED: Denies ear pain or sore throat Cardiovascular Cardiovascular: Denies chest pain or palpitations Respiratory/Chest Respiratory/Chest: Denies cough or dyspnea Gastrointestinal Gastrointestinal: Reports nausea and vomiting; Denies abdominal pain or diarrhea Genitourinary Genitourinary ED: Denies dysuria Musculoskeletal Musculoskeletal: Denies myalgias Integumentary Denies rash Neurologic Neurologic: Reports headache(s) Psychiatric Psychiatric: Denies depression Endocrine Endocrinology: Denies polyuria Hematologic/Lymphatic Hematologic/Lymphatic: Denies easy bruising Allergic/Immunologic Allergic/Immunologic ED: Denies urticaria EXAM Physical Exam Narrative Exam Narrative: Well-appearing middle-aged female. Initial blood pressure 172/80. Otherwise vital signs stable afebrile. She does not look septic or toxic. She is in no distress. HEENT exam unremarkable. Dry reactive light. No facial droop. No trauma. Neck nontender no meningismus. Able to touch chin to chest. Lungs clear to auscultation bilaterally. Heart regular rhythm. Abdomen soft nontender. Moving all 4 extremities. Neurologically awake alert no focal motor deficits. 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 Fingertip to nose within normal limits. Dorsi plantar flexion intact. NIH is 0. Const Vital Signs: 04/16/21 12:16 Temperature 97.2 F L Temperature Source Temporal Pulse Rate 94 Respiratory Rate 12 Blood Pressure 172/80 H Blood Pressure Mean 110 Pulse Ox 96 Oxygen Delivery Method Room Air Positive well nourished and well developed General Appearance ED: well developed HEENT Reports normocephalic and moist mucous membranes atraumatic; Negative for trauma or tenderness Eyes PERRL and EOMs intact bilaterally General Eye ED: Negative for pale conjunctiva or scleral icterus Neck no lymphadenopathy, supple, no meningeal signs and no JVD General: Negative for tenderness Resp normal respiratory effort and clear to auscultation bilaterally Auscultation: Negative for rales or rhonchi Cardio regular rate, regular rhythm, S1 normal heart sound, S2 normal heart sound and no murmurs GI non-tender and non-distended Auscultation: normoactive bowel sounds Palpation: soft; Negative for firm, tender, guarding or rigid Back/Spine no CVA tenderness General Back: Negative for CVA tenderness or tenderness Extremity normal to inspection and full ROM; Negative for normal capillary refill General Extremety ED: Negative for edema or tenderness General Extremity: Negative for edema Neuro oriented x3, CN's II-XII intact bilaterally and no sensory deficits noted Sensorium / Orientation: awake, alert, oriented to person, oriented to place and oriented to time; Negative for orientation impaired, lethargic or stuporous Coordination / Balance: [id number] test normal Speech: speech normal Motor Exam: strength 5/5 throughout; Negative for general weakness Psych mental status grossly normal Skin Rashes: no rashes Nails: normal MDM MDM MDM Narrative Medical decision making narrative: Middle-aged female with a headache. Exam benign. Neurologic exam normal. She had substantial brain imaging in December. I do not think that is to be repeated at this time. She will be treated with IV fluids, Toradol, Benadryl and Reglan and reassess. Repeat exam at 1:38 PM patient's headache is resolved. She feels much better. Her neurologic exam remains normal. She is feels comfortable being discharged home. Discharge Plan Triage Chief Complaint: Headache ED Provider: Addy Early Dx/Rx/DC Orders Clinical Impression: Acute intractable headache Instructions: ED Headache Unspecified Prescriptions: No Action nitroglycerin 0.4 mg tablet, sublingual 0.4 mg SUBLINGUAL PRN PRN (Reason: CHEST PAIN) Qty: 20 RF: 0 losartan 100 mg tablet 50 mg PO DAILY RF: 0 cholecalciferol (vitamin D3) 1,250 mcg (50,000 unit) capsule 50,000 unit PO FR Qty: 12 RF: 1 omeprazole 20 mg capsule,delayed release(DR/EC) 20 mg PO DAILY Qty: 90 RF: 1 montelukast [Singulair] 10 mg tablet 10 mg PO QHS Qty: 90 RF: 1 (DME) compr.stocking,thigh,reg,x-lrg Misc See Rx Instructions .ROUTE .MEDSUPPLY Qty: 2 RF: 0 lidocaine 5 % adhesive patch,medicated 1 patch topical DAILY Qty: 30 RF: 1 polyethylene glycol 3350 [Miralax] 17 gram/dose powder 17 g PO BID RF: 0 oxcarbazepine 600 MG tablet 600 tab PO QHS RF: 0 hydroxyzine pamoate 50 MG capsule 50 mg PO Q6H PRN (Reason: Anxiety) RF: 0 trazodone 100 MG tablet 100 mg PO QHS RF: 0 aripiprazole 5 MG tablet 5 mg PO DAILY RF: 0 prednisolone acetate 1 DROP drops,suspension 1 drp LEFT EYE TID RF: 0 ipratropium-albuterol 1 PUFF inhaler 1 puff INHALATION 4X/DAY RF: 0 ascorbic acid (vitamin C) [Vitamin C] 1,000 mg Tablet 1 g PO DAILY RF: 0 guaifenesin 1,200 mg tablet extended release 12hr 600 mg PO BID Qty: 60 RF: 1 levothyroxine 50 mcg tablet 50 mcg PO DAILY Qty: 90 RF: 3 aspirin 81 mg tablet,delayed release (DR/EC) 81 mg PO DAILY@0800 Qty: 90 RF: 3 hydralazine 50 mg tablet 50 mg PO TID 90 Days Qty: 270 RF: 3 melatonin 10 mg capsule 10 mg PO QHS Qty: 90 RF: 3 Combivent Respimat 20-100 mcg/actuation mist 1 puff INHALATION Q4H Qty: 4 RF: 2 meloxicam 7.5 mg tablet 7.5 mg PO DAILY PRN (Reason: pain (scale score 4-6)) Qty: 30 RF: 0 budesonide-formoterol [Symbicort] 160-4.5 mcg/actuation HFA aerosol inhaler 2 puff INHALATION BID Qty: 10.2 RF: 1 fluticasone propionate 50 mcg/actuation spray,suspension 1 spray NASAL BID Qty: 16 RF: 1 loratadine 10 mg tablet 10 mg PO DAILY Qty: 90 RF: 1 spironolactone 25 mg tablet 25 mg PO DAILY Qty: 90 RF: 3 furosemide 40 mg tablet 40 mg PO BID Qty: 90 RF: 1 nifedipine 60 mg tablet extended release 24hr 30 mg PO BID Qty: 90 RF: 3 ondansetron 4 mg tablet,disintegrating 4 mg PO Q8H PRN (Reason: nausea and vomiting) Qty: 30 RF: 1 polyethylene glycol 3350 [Miralax] 17 gram/dose powder 17 g PO BID PRN (Reason: constipation) Qty: 850 RF: 1 Primary Care Provider: Scarlet Navarro Referrals: Scarlet Navarro MD [Primary Care Provider] - 3-5 Days if not improving Activity Restrictions/Additional Instructions: Plenty of fluids and rest. Take Aleve it easy over the next couple days. Tylenol and/or Motrin as needed. Return if feeling worse. Disposition Disposition: Home, Self Care
[2021-04-16] MEDS: Ketorolac 30 MG/ML Syringe IV (12:50)
[2021-04-16] MEDS: 0.9% Normal Saline 1,000 ML 1000 ML IV (12:50)
[2021-04-16] MEDS: DiphenhydrAMINE 50 MG/ML Syringe IV (12:51)
[2021-04-16] MEDS: Metoclopramide 10 MG/2 ML Vial 5 MG IV (12:51)
[2021-04-16 13:46] VITALS: BP 169/87; PULSE 75; RESP 15
== END 2021-04-16 13:48 | disposition home or self-care (01) ==
PROVIDERS: Emergency Provider Emergency Medicine; PCP Internal Medicine
DX: R51.9 Headache, unspecified (principal); R11.2 Nausea with vomiting, unspecified; E03.9 Hypothyroidism, unspecified; E78.5 Hyperlipidemia, unspecified; F20.9 Schizophrenia, unspecified; F31.9 Bipolar disorder, unspecified; G47.33 Obstructive sleep apnea (adult) (pediatric); I13.0 Hypertensive heart and chronic kidney disease with heart failure and stage 1 through stage 4 chronic kidney disease, or unspecified chronic kidney disease; I50.9 Heart failure, unspecified; I35.1 Nonrheumatic aortic (valve) insufficiency; I48.0 Paroxysmal atrial fibrillation; I73.9 Peripheral vascular disease, unspecified; J44.9 Chronic obstructive pulmonary disease, unspecified; K21.9 Gastro-esophageal reflux disease without esophagitis; M16.11 Unilateral primary osteoarthritis, right hip; N18.30 Chronic kidney disease, stage 3 unspecified; Z86.711 Personal history of pulmonary embolism; Z86.73 Personal history of transient ischemic attack (TIA), and cerebral infarction without residual deficits; Z87.19 Personal history of other diseases of the digestive system; Z79.82 Long term (current) use of aspirin; Z79.899 Other long term (current) drug therapy; F17.210 Nicotine dependence, cigarettes, uncomplicated
CPT/HCPCS: 96361; 96374; 96375; 99283; J7030

== ENCOUNTER → 2021-04-25 13:11 | Outpatient (CLI) | payer MEDICAID, SELFPAY ==
[2021-04-19 09:50] VITALS: BMI 46.6
[2021-04-25 14:42] LABS: Anion Gap 8 (5-15); BUN 17 mg/dL (7-18); BUN/Creat Ratio 14.3 RATIO (10-20); Calcium,Total 9.4 mg/dL (8.5-10.1); Chloride 94 mmol/L (98-107); Creatinine, Serum 1.19 mg/dL (0.55-1.02); EST Glomerular Filtration Rate 50 mL/min (>60); Est Glom Filt Rate - Afr Amer 60 mL/min (>60); Glucose 94 mg/dL (74-106); Potassium 3.9 mmol/L (3.5-5.1); Sodium Level 130 mmol/L (136-145)
== END ==
PROVIDERS: PCP Internal Medicine; Referring Provider Internal Medicine; Visit Provider Internal Medicine
DX: E87.1 Hypo-osmolality and hyponatremia (principal)
CPT/HCPCS: 36415; 80048

== ENCOUNTER 2021-04-27 13:00 | Outpatient (RCR) | payer MEDICAID, SELFPAY ==
[2021-04-04 08:58] VITALS: BMI 46.7
--- NOTE | 2021-04-06 10:31 | HP.PTEVAL ---
Patient's Visit Information NIGHAT TIMMONS is a 56 year old F referred to Physical Therapy by Dr. Amador Beach DO with a diagnosis of R trochanteric bursits, R ITB syndrome, Lumbar DDD. Date of Evaluation: 04/06/21 Physical Therapist: Facudno Yip, DPT, OCS, CSCS - Visit Plan Frequency: 2-3x /Week Duration: 4-6 Weeks Plan: 2-3x/week for 4 weeks to start. I have taught patient LE seated ROM exercise to help with fluid dynamics and even they wear her out(AP, LAQ, seated december) Progress to home strength as safety allows. Please treat with gentle monitorred ex for LE strength, posture. Focus on stretching and ROM R hip to tolerance both active and passive. Modalities of TENS with MH as needed. - Subjective R hip hurts laterally and posterior since fall. She slipped on ice. X rays were OK. No pain prior to that recently but h/o dislocated R hip in the distant past. Walking is worse and rated at 10/10, more pain with movement, comfortable at rest if doesn't WB R hip. Sleep has to be on left isde and is 20 minutes at a time. LBP is chronically stiff. Hard to bend and move since the fall . Pain is across lB and feels licked. Standing to do dishes hurts. On SSI and not emplyed due to mental issues. Spends day active wtih hands as she cannot sit in chair too long. Dishes, lie in bed. Not doing any regular exercises. Has CHF. Hobbies include scrapbooking and walking but cannot do it and has not since last summer. Had injection to hip Sunday and has not helped yet. No steps at home. Has walker that she uses sometimes. Falls on it sometimes usually catching R foot. - Pain R hip Pain Intensity (Out of 10): 0 Pain Intensity Range: 0, 10 LBP Pain Intensity (Out of 10): 0 Pain Intensity Range: 0, 7 Comment: worse with dishes - Objective Walks back to PT room with antalgia R but 300 feet safe and I, tired but not SOB after this. Posture is FW head and flat lumbar lordosis with obvious structural kyphosis in T/S. 76 resting heart rate and 16 resp rate. Walks with R antalgia but I without AD. Transfers I bed and chair. Pt feels very fatigued with just transfer onto table. UE AROM WFL. LB AROM ext adn flex max limited and feels tight in center. sB min limited and contralateral tightenss. LE AROM is WFL except DF whih is weak R>L and limited to -4 AROM and -1 RPOM B, tightnes sin gastroc, ITB, HS and quad B. R hip also only moves to about 90 passively and 30 SLR due to hip pain. - SLR and slump test. reflexes 2/3 patella and achilles B. Sensation seems diminished to gross light touch B in feet. Strength is 3- DF R and 3- L, nickolas inv/ev 3+ B, PF 3 B. knee ext 3R and 3+ L, HSC 3 R and 3+ L. hip flexion 3 R and 3+ L, abd and ext 3 B. Pt is not SOB but does c/o some dizzyness with sitting up after exam and very tired after just manual muscle test verbally communicated. Self limited braulio ctivity. She says she is supposed to wear stockings from heart doctor but cannot get them on. Also supposed to see neurologist but has not. With patients poor management of symptoms and R sided weakness lacking visit to neuro, I am not sure how she will tolerate exercise and need to start gently out of the pool but consider pool if tolerates ex well. CEFERINO suma TORRESIR adn scour on R are hard to do due to limited movement and pain with moving R hip. - Balance Scores Functional Gait Assessment Score: 12 % Disability: 60.0000 - Goals Goal 1:: pt sleep 2 hours without pain Goal Time Frame: 4-6 Weeks Goal 2:: Pt I in appropriate LE strength and core strength adn R hip ROM stretching ex to manage condition Goal Time Frame: 4-6 Weeks Goal 3:: Walk without antalgia R hip Goal Time Frame: 4-6 Weeks Goal 4:: Pt feel 50% improved in pain overall no worse than 4/10 Goal Time Frame: 4-6 Weeks - Rehabilitation Potential Physical Therapy Diagnosis: weakness and difficulty mobility due to pain and poorly managed health conditions. Rehabilitation Potential: Poor - Anticipated Interventions Patient/Client Instruction: Educate patient on: Condition, Plan of Care For the Purpose of:: To decrease pain, To increase ROM, To improve muscle performance and motor function Therapeutic Exercise to Include: Strength training, Postural training, Flexibilty training, Gait and locomotor training, Passive ROM, Active ROM, Dynamic Lumbar Stabilization For the Purpose of:: To decrease pain, To increase ROM, To improve muscle performance and motor function, To increase tolerance to activity/condition/position, To improve gait and locomotor functions Manual Therapy Techniques to Include: Mobilization, Passive ROM, Soft tissue mobilization For the Purpose of:: To increase ROM, To improve nutrient delivery to tissue TENS: Yes Thermo therapy (hot pack): Yes For the Purpose of:: To decrease pain, To improve endurance Thank you for the opportunity to evaluate your patient. For Medicare and Medicare HMO plans, please review the plan of care and approve it. It will need to be FAXED BACK to us at [phone] for Medicare purposes. For Medicare only, by signing this I certify the plan of care. Please let me know if there are questions or concerns regarding this plan of care. Physician Signature: Date:
--- NOTE | 2021-07-05 11:41 | HP.PT.NRP ---
NIGHAT TIMMONS was seen in my office for initial evaluation on 04/06/21. The following Plan of Care was established for this patient: Initial Frequency: 2-3x /Week Initial Duration: 4-6 Weeks Patient/Client Instruction: Educate patient on: Condition, Plan of Care For the Purpose of:: To decrease pain, To increase ROM, To improve muscle performance and motor function Therapeutic Exercise to Include: Strength training, Postural training, Flexibilty training, Gait and locomotor training, Passive ROM, Active ROM, Dynamic Lumbar Stabilization For the Purpose of:: To decrease pain, To increase ROM, To improve muscle performance and motor function, To increase tolerance to activity/condition/position, To improve gait and locomotor functions Manual Therapy Techniques to Include: Mobilization, Passive ROM, Soft tissue mobilization For the Purpose of:: To increase ROM, To improve nutrient delivery to tissue TENS: Yes Thermo therapy (hot pack): Yes For the Purpose of:: To decrease pain, To improve endurance This patient was last seen in our office 04/27/21. Pertinent comments regarding their Physical therapy will appear below: Pt seen 4 voisits of POC and cancelled her last recheck neglecting to reschedule. At this point, it has been over two months and I will discontinue from my care. At this point I will be discontinuing this patient from physical therapy. I would be happy to see this patient again in the future if found appropriate by the physician. Thank you! Facundo Yip, DPT, OCS, CSCS Balance/Gait/Functional tests - Balance/Special Test Scores Functional Gait Assessment Score: 12 % Disability: 60.0000 Lower Extremity Functional Score: 6
== END 2021-04-27 19:00 | disposition home or self-care (01) ==
LOC: PT 13:00
PROVIDERS: PCP Internal Medicine; Referring Provider Orthopaedic Surgery; Visit Provider Orthopaedic Surgery
DX: M70.61 Trochanteric bursitis, right hip (principal); M51.36 Other intervertebral disc degeneration, lumbar region; M76.31 Iliotibial band syndrome, right leg
CPT/HCPCS: 97110; 97163

== ENCOUNTER 2021-05-11 08:07 | Day surgery (SDC) | payer MEDICAID, SELFPAY ==
[2021-04-19 09:50] VITALS: BMI 46.6
[2021-05-11] VITALS (10 sets, daily range): BP systolic 118–171; BP diastolic 50–82; PULSE 67–87; RESP 16–22; TEMP 36.6–37.6; O2SAT 95–99; BMI 46.7
[2021-05-11] MEDS: Lactated Ringers 1,000 ML 100 ML IV ×2 (08:05→10:59)
--- NOTE | 2021-05-11 08:51 | HP.PCM_ITS ---
History and Physical Date of Admission: 05/11/21 Date of Service: 04/19/21 Intake Vital Signs 04/19/21 09:48 04/19/21 09:50 Height 5 ft 4 in Weight: 278 lb BMI 47.7 46.6 BP 146/83 H Blood Pressure Location Rt brachial Position Sitting Respiration 18 Pulse 81 Pulse Source Monitor Temp 97.7 F L Temp Source Temporal Pulse Oximetry (%) 98 Oxygen Delivery Method room air Intake Visit Reasons: C-SCOPE HX OF COLON CANCER Chief Complaint: EGD/C-Scope Consult Nursing Student Required: No Is patient in pain?: No Allergies adhesive tape Allergy (Verified 04/19/21 09:50) Rash atropine sulfate [From ] Allergy (Verified 04/19/21 09:50) Hives codeine phosphate [From Tylenol-Codeine #3] Allergy (Verified 04/19/21 09:50) breathing problems divalproex sodium [From Depakote] Allergy (Verified 04/19/21 09:50) Unknown hydromorphone HCl [From Dilaudid] Allergy (Verified 04/19/21 09:50) facial blisters,itching hyoscyamine sulfate [From ] Allergy (Verified 04/19/21 09:50) Hives Iodinated Contrast Media [Iodinated Contrast Media - IV Dye] Allergy (Verified 04/19/21 09:50) breathing problems and my bp went up latex Allergy (Verified 04/19/21 09:50) Rash pantoprazole sodium [From Protonix] Allergy (Verified 04/19/21 09:50) Rash phenobarbital [From ] Allergy (Verified 04/19/21 09:50) Hives promethazine HCl [From Phenergan] Allergy (Verified 04/19/21 09:50) Anaphylaxis ramipril Allergy (Verified 04/19/21 09:50) Unknown scopolamine hydrobromide [From ] Allergy (Verified 04/19/21 09:50) Hives ziprasidone mesylate [From Geodon] Allergy (Verified 04/19/21 09:50) Unknown Sulfa (Sulfonamide Antibiotics) Adverse Reaction (Verified 04/19/21 09:50) Vomiting ziprasidone HCl [From Geodon] Adverse Reaction (Verified 04/19/21 09:50) tremors VIDODIN TUSS Allergy (Uncoded 04/16/21 12:16) Itching Amlodipine Adverse Reaction (Uncoded 04/16/21 12:16) Vomiting Medications oxcarbazepine 600 tab PO QHS 09/06/19 [History Confirmed 04/19/21] hydroxyzine pamoate 50 mg PO Q6H PRN 10/18/19 [History Confirmed 04/19/21] nitroglycerin 0.4 mg sublingual tablet 0.4 mg SUBLINGUAL PRN PRN #20 tab 09/10/20 [Rx Confirmed 04/19/21] aripiprazole 5 mg PO DAILY 10/31/20 [History Confirmed 04/19/21] trazodone 100 mg PO QHS 10/31/20 [History Confirmed 04/19/21] ipratropium-albuterol 1 puff INHALATION 4X/DAY 12/20/20 [History Confirmed 04/19/21] prednisolone acetate 1 drp LEFT EYE TID 12/20/20 [History Confirmed 04/19/21] cholecalciferol (vitamin D3) 1,250 mcg (50,000 unit) capsule 50,000 unit PO FR #12 cap 12/28/20 [Rx Confirmed 04/19/21] guaifenesin 1,200 mg tablet, extended release 12 hr 600 mg PO BID #60 tab 01/03/21 [Rx Confirmed 04/19/21] levothyroxine 50 mcg tablet 50 mcg PO DAILY #90 tab 01/03/21 [Rx Confirmed 04/19/21] aspirin 81 mg tablet,delayed release 81 mg PO DAILY@0800 #90 tablet 01/19/21 [Rx Confirmed 04/19/21] hydralazine 50 mg tablet 50 mg PO TID 90 Days #270 tab 01/19/21 [Rx Confirmed 04/19/21] melatonin 10 mg capsule 10 mg PO QHS #90 cap 01/19/21 [Rx Confirmed 04/19/21] losartan 100 mg tablet 50 mg PO DAILY tab 02/04/21 [History Confirmed 04/19/21] ascorbic acid (vitamin C) [Vitamin C] 1 g PO DAILY 02/08/21 [History Confirmed 04/19/21] ipratropium 20 mcg-albuterol 100 mcg/actuation mist for inhalation 1 puff INHALATION Q4H #4 g 03/02/21 [Rx Confirmed 04/19/21] compr.stocking,thigh,reg,x-lrg #2 ea 03/09/21 [Rx Confirmed 04/19/21] lidocaine 5 % topical patch 1 patch TOPICAL DAILY #30 ea 03/09/21 [Rx Confirmed 04/19/21] montelukast 10 mg tablet 10 mg PO QHS #90 tab 03/09/21 [Rx Confirmed 04/19/21] omeprazole 20 mg capsule,delayed release 20 mg PO DAILY #90 cap 03/09/21 [Rx Confirmed 04/19/21] meloxicam 7.5 mg tablet 7.5 mg PO DAILY PRN #30 tab 03/15/21 [Rx Confirmed 04/19/21] budesonide-formoterol HFA 160 mcg-4.5 mcg/actuation aerosol inhaler 2 puff INHALATION BID #10.2 g 03/16/21 [Rx Confirmed 04/19/21] fluticasone propionate 50 mcg/actuation nasal spray,suspension 1 spray NASAL BID #16 g 03/28/21 [Rx Confirmed 04/19/21] furosemide 40 mg tablet 40 mg PO BID #90 tablet 03/28/21 [Rx Confirmed 04/19/21] loratadine 10 mg tablet 10 mg PO DAILY #90 tab 03/28/21 [Rx Confirmed 04/19/21] spironolactone 25 mg tablet 25 mg PO DAILY #90 tab 03/28/21 [Rx Confirmed 04/19/21] polyethylene glycol 3350 17 gram/dose oral powder 17 g PO BID 04/07/21 [History Confirmed 04/19/21] nifedipine 60 mg tablet,extended release 24 hr 30 mg PO BID #90 tab 04/08/21 [Rx Confirmed 04/19/21] ondansetron 4 mg disintegrating tablet 4 mg PO Q8H PRN #30 tab 04/12/21 [Rx Confirmed 04/19/21] polyethylene glycol 3350 17 gram/dose oral powder 17 g PO BID PRN #850 g 04/13/21 [Rx Confirmed 04/19/21] PFSH Medical History Allergic rhinitis Aortic valve insufficiency Arthralgia of right hip Asthma Asthma Bipolar 1 disorder Chest pain Chest pain CKD (chronic kidney disease) CKD (chronic kidney disease) stage 3, GFR 30-59 ml/min Conversion disorder Conversion disorder with abnormal movement Convulsion, non-epileptic COPD, mild Cyst Depression Enlarged aorta Gastritis GERD (gastroesophageal reflux disease) GERD (gastroesophageal reflux disease) Heart failure Hip dislocation, right HLD (hyperlipidemia) HTN (hypertension) Hypertensive crisis without congestive heart failure Hypokalemia Hyponatremia Hyponatremia Hypothyroidism Intertriginous dermatitis associated with moisture Left arm swelling Migraine Migraines Non-convulsive status epilepticus Non-rheumatic mitral regurgitation Nonrheumatic aortic (valve) insufficiency Orthostatic hypotension DAPHNE (obstructive sleep apnea) Osteoarthritis Osteoarthritis of right hip PAF (paroxysmal atrial fibrillation) Peripheral artery disease Preventative health care Psychosis Pulmonary embolism Right hip pain Right hip pain Schizo NEC, chrn/exacerb Schizophrenia Stroke Tobacco use Surgical History bladder sling History of uterine suspension procedure Hx of cholecystectomy left foot S/P carpal tunnel release Family History Sister Myocardial infarction Colon cancer Mother Hypertension Arthritis Brain aneurysm Sister Colon cancer Social History Smoking Status: Current every day smoker tobacco type: cigarettes Tobacco: How many years used: 26 alcohol intake: never substance use type: does not use caffeine: Yes Type: coffee HPI HPI HPI: NIGHAT TIMMONS, is a 56 F who presents to the office today for EGD and colonoscopy. Patient's last colonoscopy was in 2012 small polyp was removed however it was normal colon mucosa. Patient's biological sisters were diagnosed with colon cancer both of age 56 patient does not have other details. Patient states she does have constipation she can go 5 to 10 days without having a bowel movement. Patient states that she does need to take MiraLAX daily as needed if she is constipated. She states she usually takes about twice a week. Patient denies any blood in her stool. Patient's last EGD was in 2013 patient states for the last month she has had some nausea and vomiting does have Zofran as needed. Patient also states she has some epigastric pain. Along with some reflux symptoms. Patient is currently on omeprazole 20 mg p.o. daily which she takes in the morning with her levothyroxine. Patient states previously she had been on Nexium/Carafate for about 20 years but stopped Nexium when it became [id number] and insurance no longer paid for it. Patient states she previously had a stroke most recent in July 2020 and is on baby aspirin daily. ROS General General: Yes weight change, fatigue and weakness; No appetite, colon cancer or breast cancer HEENT HEENT: Yes difficulty swallowing; No eye injury, eye surgery, swollen glands or hoarseness Endo Endocrine: Yes thyroid disease; No diabetes mellitus, thyroid cancer, Hair loss, heat intolerance or cold intolerance Skin Skin: Yes changing moles; No rash Breast Breast: No left breast lump, right breast lump, nipple discharge, breast pain, abnormal mammogram, abnormal US or breast enlargement Musc Musculoskeletal: Yes back problems and arthritis; No rheumatoid arthritis, gout or joint pain Cardio Cardiovascular: Yes murmur, heart disease, atrial fibrillation and high blood pressure; No pacemaker, heart attack, heart stent, palpitations, shortness of breat with exertion or chest pain Psych Psychiatric: Yes depression and anxiety; No hearing voices Resp Respiratory: Yes shortness of breath, Yes sleep apnea, Yes cough, Yes COPD, Yes asthma, No emphysema and No wheezing Gastro Gastrointestinal: Yes abdominal pain, Yes nausea or vomiting, No diarrhea, Yes constipation, No blood in stool, Yes acid reflux, No hemorrhoids, Yes ulcers, No gallbladder problem and No black,tarry stools Marquis Hematologic: Yes blood thinners, No blood disorders, No bleeding, No anemia and No blood clots Neuro Neurologic: No system reviewed and no additional complaints, except as documented, No as per HPI, No abnormal gait, No abnormal hearing, No abnormal movements, No abnormal speech, No behavioral changes, No burning sensations, No confusion, No convulsions, No disequilibrium, No dizziness, No localized weakness, No frequent falls, No headache(s), No lack of coordination, No loss of vision, No memory loss, Yes numbness, No other visual disturbances, No radicular pain, No restless legs, No sensory deficit, No syncope, Yes tingling, No tremor(s), Yes weakness and Yes other (history of right sided weakness) Exam Const General: cooperative, healthy appearing, comfortable and no acute distress Neck Neck: normal visual inspection Resp Effort & Inspection: normal respiratory effort Cardio Rate: regular rate GI Inspection: non-distended and obesity Palpation: soft, no guarding and tender in the epigastrum; with no rebound tenderness Skin General: no rashes or lesions noted Neuro General: patient oriented x3 Psych Affect: normal affect COVID (Procedure Consent) Procedure Criteria Procedure Criteria: Yes Elective The surgeon/proceduralist and patient have discussed in detail the risk of exposure to and/or potential harm posed by the COVID-19 virus with having a surgery/procedure at this time versus the risk of delaying the surgery/procedure. It is not possible to know either the risk of delaying the surgery or procedure or chance of getting an infection with perfect accuracy, but a joint decision was made between the patient and the surgeon/proceduralist to proceed at this time with the scheduled surgery/ procedure as indicated on the consent form. Assessment and Plan Assessment and Plan (1) Family history of colon cancer: Status: Acute (2) GERD (gastroesophageal reflux disease): Status: Acute Plan - Dr. Tiffani Grullon MD: Recommend patient take 40 mg of omeprazole and take it at night as her levothyroxine may not work as well if she takes it with the levothyroxine in the morning. Patient states her epigastric pain and symptoms are improving with the omeprazole. Also discussed with patient that due to her sisters family history of colon cancer she would be due for for colonoscopy every 5 years not yearly unless something else was found on her colonoscopy. Did encourage smoking sensation patient states she is trying to quit down to half a pack a day We will have patient continue her baby aspirin have discussed the above with the patient. I have offered the patient EGD and colonoscopy for evaluation. I have explained the risks/benefits of the procedure and described the procedure. I have discussed the risks with the patient, including but not limited to: infection, bleeding, perforation of the GI tract requiring emergency surgery, inability to complete the procedure, injury to any internal organs, complications of anesthesia, etc. - the patient understands and agrees to proceed. I have answered all the patient's questions to the patient's satisfaction and the patient has no further questions. The patient has been given instructions for the colon cleansing preparation. 2- day of clears, magnesium citrate the first day, MiraLAX Dulcolax split prep second day. Tiffani Grullon M.D. Pager: [phone] [facility] [address] [place] [address], [address] [place] [id number] Office: [phone] Plan Details Other Orders: Orders: Colonoscopy Today EGD Today Coding Level of Care Code Off vis,new,level 3 Diagnoses Family history of colon cancer Z80.0 GERD (gastroesophageal reflux disease) K21.9 04/19/21 1010<Electronically signed by Tiffani Grullon MD>Date Tiffani Grullon MD
--- NOTE | 2021-05-11 09:30 | EGD_PTH ---
PATIENT: NIGHAT TIMMONS LOC: EN U#:[id number] AGE/SX: 56/F ROOM: RE05/11/[address]: Dr. Tiffani Grullon MD : 1965 BED: DIS: 05/11/2021 SPEC #: [id number] RECD: 05/11/21 10:54 STATUS: HUMERA REAnne #: [id number] KENNEDY: 05/11/21 09:[address]: Tiffani Grullon DEPT: SURGICAL PATHOLOGY RECD BY: Tiesha Raines ENTERED: 05/11/21 11:28 SP TYPE: EGD BIOPSY OT DR: Dr. Scarlet Navarro MD Tissues: A - Gastric mucous membrane B - Transverse colon C - Splenic capsule Procedures: Surgery Specimen Level IV HEADER OPER[place] [place] DIAGNOSIS: Family history colon cancer, GERD TISSUE SUBMITTED: A ? Antrum biopsy for H. pylori and path, B ? Biopsy transverse polyps x2, C ? Biopsy of splenic flexure polyp MICROSCOPIC DIAGNOSIS A. Gastric antrum, biopsy: Mild chronic inflammation. B. Transverse colon polyp, biopsy: Fragments of tubular adenoma. C. Colonic polyp at splenic flexure, biopsy: Fragments of tubular adenoma. AM:jaclyn 05/12/2021 COMMENT A. The results of immunohistochemistry for Helicobacter pylori will be reported separately ([id number]). MICROSCOPIC DESCRIPTION Slides are reviewed. GROSS DESCRIPTION A - Received in fixative is one container labeled with the patient's name and designated antrum biopsy. The specimen consists of one irregular fragment of light huertas soft tissue that measures 0.3 x 0.2 x 0.1 cm. The specimen is totally submitted in one cassette. B - Received in fixative is one container labeled with the patient's name and designated biopsy of transverse polyp. The specimen consists of multiple irregular fragments of light huertas soft tissue that in aggregate measure 0.8 x 0.2 x 0.1 cm. The specimen is totally submitted in one cassette. C - Received in fixative is one container labeled with the patient's name and designated biopsy of splenic flexure. The specimen consists of multiple irregular fragments of light huertas soft tissue that in aggregate measure 1 x 0.3 x 0.1 cm. The specimen is totally submitted in one cassette. / OLIMPIA:jaclyn 05/11/21 TC:5 CPT: 57616 x3
--- NOTE | 2021-05-11 09:30 | IMM_PTH ---
PATIENT: NIGHAT TIMMONS LOC: EN U#:[id number] AGE/SX: 56/F ROOM: RE05/11/[address]: Dr. Tiffani Grullon MD : 1965 BED: DIS: 05/11/2021 SPEC #: [id number] RECD: 05/11/21 12:41 STATUS: HUMERA REQ #: [id number] KENNEDY: 05/11/21 09:[address]: Tiffani Grullon DEPT: IMMUNOHISTOCHEMISTRY RECD BY: Virginia Larsen ENTERED: 05/11/21 12:42 SP TYPE: IMMUNO OTHR DR: Dr. Scarlet Navarro MD Tissues: A - Stomach, NOS Procedures: H Pylori (initial) PHYSICIAN & INSTITUTION [place] [id number] SPECIMEN INFORMATION: Tissue Source: A ? Antrum biopsy Clinical Info: Family history colon cancer, GERD Specimen Number: [id number] CPT code: 40413 METHODOLOGY: Deparaffinized sections of prefer/formalin-fixed tissue or PAP/DQ stained slides are incubated with monoclonal/polyclonal antibodies/oligonucleotide probes. Localization is made via biotin free immunoperoxidase method. Appropriate controls are performed and reacted as expected. Results on target cell population are indicated in the following table: RESULTS: ANTIBODY / CLONE RESULT Block A H Pylori (polyclonal) negative These tests were developed and their performance characteristics determined by [facility]. They may not have been cleared or approved by the U.S. Food and Drug Administration. The FDA has determined that such clearance or approval is not necessary. INTERPRETATION: A. Antrum, biopsy: Negative for Helicobacter pylori organisms. AM:jaclyn 05/12/2021
--- NOTE | 2021-05-11 10:39 | OP.EGD_ITS ---
Patient Name: Soumya Owens Procedure Date: 05/11/2021 9:25 AM Date of : 1965 Age: 56 Procedure: Upper GI endoscopy Indications: Epigastric abdominal pain, Heartburn Providers: Tiffani Grullon MD Referring MD: Tiffani Grullon MD Medicines: Monitored Anesthesia Care Patient Profile: This is a 56 year old female. Complications: No immediate complications. Procedure: Pre-Anesthesia Assessment: - Prior to the procedure, a History and Physical was performed, and patient medications and allergies were reviewed. The patient's tolerance of previous anesthesia was also reviewed. The risks and benefits of the procedure and the sedation options and risks were discussed with the patient. All questions were answered, and informed consent was obtained. Prior Anticoagulants: The patient has taken aspirin, last dose was day of procedure. ASA Grade Assessment: Per anesthesia. After reviewing the risks and benefits, the patient was deemed in satisfactory condition to undergo the procedure. After obtaining informed consent, the endoscope was passed under direct vision. Throughout the procedure, the patient's blood pressure, pulse, and oxygen saturations were monitored continuously. The gastroscope was introduced through the mouth, and advanced to the second part of duodenum. The upper GI endoscopy was accomplished without difficulty. The patient tolerated the procedure well. Scope In: 9:40:27 AM Scope Out: 9:47:15 AM Total Procedure Duration Time 0 hours 6 minutes 48 seconds Findings: The Z-line was regular and was found 38 cm from the incisors. A small hiatal hernia was present. Mildly erythematous mucosa without bleeding was found in the gastric antrum. Biopsies were taken with a cold forceps for histology. Biopsies were taken with a cold forceps for Helicobacter pylori cultures. Biopsies were taken with a cold forceps for Helicobacter pylori testing using a rapid urease test. The examined duodenum was normal. Impression: - Z-line regular, 38 cm from the incisors. - Small hiatal hernia. - Erythematous mucosa in the antrum. Biopsied. - Normal examined duodenum. Recommendation: - Await pathology results. - Discharge patient to home. - Resume previous diet. - Use Nexium (esomeprazole) 40 mg PO daily. - Continue present medications. Procedure Code(s): --- Professional --- 53699, Esophagogastroduodenoscopy, flexible, transoral; with biopsy, single or multiple Diagnosis Code(s): --- Professional --- K44.9, Diaphragmatic hernia without obstruction or gangrene K31.89, Other diseases of stomach and duodenum R10.13, Epigastric pain R12, Heartburn CPT copyright 2017 [employer]. All rights reserved. The codes documented in this report are preliminary and upon dairy husbandry teacher review may be revised to meet current compliance requirements. MD Tiffani Farley MD 05/11/2021 10:38:17 AM This report has been signed electronically. Number of Addenda: 0 Note Initiated On: 05/11/2021 9:25 AM
--- NOTE | 2021-05-11 10:39 | OP.CCLET_ITS ---
05/11/2021 Scarlet Navarro MD [address] [place] [address] [place] [address] Re : Upper GI endoscopy procedure for Soumya Parekhman Dear Dr. Navarro This procedure was performed on Tuesday, May 11, 2021. My impressions and recommendations are as follows: Impressions : - Z-line regular, 38 cm from the incisors. - Small hiatal hernia. - Erythematous mucosa in the antrum. Biopsied. - Normal examined duodenum. Recommendations : - Await pathology results. - Discharge patient to home. - Resume previous diet. - Use Nexium (esomeprazole) 40 mg PO daily. - Continue present medications. My findings are described in the full procedure note, which is enclosed. If I can be of further assistance, please feel free to contact me at Doctor phone number(s): , Work: . Sincerely, MD Tiffani Farley MD 05/11/2021 10:38:17 AM This report has been signed electronically.
--- NOTE | 2021-05-11 10:46 | OP.COLON_ITS ---
Patient Name: Soumya Owens Procedure Date: 05/11/2021 9:50 AM Date of : 1965 Age: 56 Procedure: Colonoscopy Indications: Family history of colon cancer in multiple first-degree relatives Providers: Tiffani Grullon MD Referring MD: Tiffani Grullon MD Medicines: Monitored Anesthesia Care Patient Profile: This is a 56 year old female. Last Colonoscopy: 2012. Complications: No immediate complications. Procedure: Pre-Anesthesia Assessment: - Prior to the procedure, a History and Physical was performed, and patient medications and allergies were reviewed. The patient's tolerance of previous anesthesia was also reviewed. The risks and benefits of the procedure and the sedation options and risks were discussed with the patient. All questions were answered, and informed consent was obtained. Prior Anticoagulants: The patient has taken aspirin, last dose was day of procedure. ASA Grade Assessment: Per anesthesia. After reviewing the risks and benefits, the patient was deemed in satisfactory condition to undergo the procedure. After I obtained informed consent, the scope was passed under direct vision. Throughout the procedure, the patient's blood pressure, pulse, and oxygen saturations were monitored continuously. The pediatric colonoscope was introduced through the anus and advanced to the ileocecal valve. The colonoscopy was technically difficult and complex due to significant looping. The patient tolerated the procedure well. The quality of the bowel preparation was good. Scope In: 9:50:58 AM Scope Withdrawal Time 0 hours 15 minutes 48 seconds Scope Out: 10:35:12 AM Total Procedure Duration Time 0 hours 44 minutes 14 seconds Findings: The perianal and digital rectal examinations were normal. Three sessile polyps were found in the splenic flexure and transverse colon. The polyps were less than 5 mm in size. These polyps were removed with a cold biopsy forceps. Resection and retrieval were complete. Unable to intubate cecum, due to scope looping even with abdominal pressure/change pt position. Impression: - Three less than 5 mm polyps at the splenic flexure and in the transverse colon, removed with a cold biopsy forceps. Resected and retrieved. Recommendation: - Discharge patient to home. - Resume previous diet. - Continue present medications. - Await pathology results. - Repeat colonoscopy in 2 years for surveillance. Procedure Code(s): --- Professional --- 85745, PT, Colonoscopy, flexible; with biopsy, single or multiple Diagnosis Code(s): --- Professional --- D12.3, Benign neoplasm of transverse colon (hepatic flexure or splenic flexure) Z80.0, Family history of malignant neoplasm of digestive organs CPT copyright 2017 [employer]. All rights reserved. The codes documented in this report are preliminary and upon accounting professor review may be revised to meet current compliance requirements. MD Tiffani Farley MD 05/11/2021 10:46:23 AM This report has been signed electronically. Number of Addenda: 0 Note Initiated On: 05/11/2021 9:50 AM
--- NOTE | 2021-05-11 10:47 | OP.CCLET_ITS ---
05/11/2021 Scarlet Navarro MD [address] [place] [place] [address] Re : Colonoscopy procedure for Soumya Parekhman Dear Dr. Navarro This procedure was performed on Tuesday, May 11, 2021. My impressions and recommendations are as follows: Impressions : - Three less than 5 mm polyps at the splenic flexure and in the transverse colon, removed with a cold biopsy forceps. Resected and retrieved. Recommendations : - Discharge patient to home. - Resume previous diet. - Continue present medications. - Await pathology results. - Repeat colonoscopy in 2 years for surveillance. My findings are described in the full procedure note, which is enclosed. If I can be of further assistance, please feel free to contact me at Doctor phone number(s): , Work: . Sincerely, MD Tiffani Farley MD 05/11/2021 10:46:23 AM This report has been signed electronically.
== END 2021-05-11 12:09 ==
LOC: EN 08:08 → AC 08:09
PROVIDERS: PCP Internal Medicine; Referring Provider Surgery; Visit Provider Surgery
PROC: 0DJD8ZZ Inspection of Lower Intestinal Tract, Via Natural or Artificial Opening Endoscopic (ICD-10-PCS; CPT 45378; principal; 2021-05-11 09:25)
DX: K29.70 Gastritis, unspecified, without bleeding (principal); D12.3 Benign neoplasm of transverse colon; K21.9 Gastro-esophageal reflux disease without esophagitis; K44.9 Diaphragmatic hernia without obstruction or gangrene; Z80.0 Family history of malignant neoplasm of digestive organs; E03.9 Hypothyroidism, unspecified; E78.5 Hyperlipidemia, unspecified; F20.9 Schizophrenia, unspecified; F31.9 Bipolar disorder, unspecified; I13.0 Hypertensive heart and chronic kidney disease with heart failure and stage 1 through stage 4 chronic kidney disease, or unspecified chronic kidney disease; N18.30 Chronic kidney disease, stage 3 unspecified; G47.33 Obstructive sleep apnea (adult) (pediatric); I25.2 Old myocardial infarction; I35.1 Nonrheumatic aortic (valve) insufficiency; I48.0 Paroxysmal atrial fibrillation; I50.9 Heart failure, unspecified; I73.9 Peripheral vascular disease, unspecified; J44.9 Chronic obstructive pulmonary disease, unspecified; G43.909 Migraine, unspecified, not intractable, without status migrainosus; Z87.19 Personal history of other diseases of the digestive system; Z86.73 Personal history of transient ischemic attack (TIA), and cerebral infarction without residual deficits; Z86.711 Personal history of pulmonary embolism; Z79.82 Long term (current) use of aspirin; Z79.899 Other long term (current) drug therapy; F17.210 Nicotine dependence, cigarettes, uncomplicated
CPT/HCPCS: 43239; 45380; 87426; 88305; 88342; C9803; J7120; J2405

== ENCOUNTER → 2021-05-18 15:10 | Outpatient (CLI) | payer MEDICAID, SELFPAY ==
[2021-04-07 18:18] VITALS: BMI 47.7
[2021-05-11 08:26] VITALS: BMI 46.7
--- NOTE | 2021-05-18 15:12 | BI_ITS ---
MAMMOGRAPHY - BILATERAL SCREENING REASON FOR EXAM: Female, 56 years old. Routine annual screening examination. PERTINENT HISTORY: Screening TECHNIQUE: Digital bilateral breast july (3D mammographic acquisition) in the CC and MLO projections. 2-D mediolateral oblique (MLO) and craniocaudad (CC) views of both breasts were obtained. CAD: Full Field Digital Mammography with Computer Added Detection was performed. COMPARISON: None. FINDINGS: Breast Composition: Fatty There are no dominant masses or suspicious calcifications. No other significant abnormalities are identified. BI/SCRN MAMM (CAD)W/JULY BILAT IMPRESSION: Stable bilateral screening mammogram. Yearly follow-up mammogram recommended. (A) ASSESSMENT CATEGORY: BIRADS Category 1: Negative. A letter regarding these results will be sent to the patient by the facility within 30 days. BR1 Approximately 10% of breast cancers are not detected by mammography. A normal mammogram should not delay biopsy of a clinically suspicious abnormality. [id number] Electronically Signed: Freedom Geiger DO at 15:22 EDT Tel , Service support ,
== END ==
PROVIDERS: PCP Internal Medicine; Referring Provider Internal Medicine; Visit Provider Internal Medicine
DX: Z12.31 Encounter for screening mammogram for malignant neoplasm of breast (principal)
CPT/HCPCS: 77063; 77067

== ENCOUNTER 2021-05-23 10:01 | Observation (INO) | payer MEDICAID, SELFPAY ==
[2021-05-11 08:26] VITALS: BMI 46.7
[2021-05-23] VITALS (9 sets, daily range): BP systolic 139–174; BP diastolic 49–91; PULSE 54–71; RESP 15–22; TEMP 36.6–37.2; O2SAT 95–100; BMI 44.6; BMI 47.0
--- NOTE | 2021-05-23 10:42 | CT_ITS ---
STUDY: CT BRAIN WITHOUT CONTRAST REASON FOR EXAM: Female, 56 years old. MACK, ataxia. Memory loss. Posterior headache. RADIATION DOSAGE (If Supplied By Facility): CTDIvol = ( 44.99 ) mGy, DLP = ( 796.11 ) mGycm TECHNIQUE: Transaxial CT imaging of the brain was performed without administration of intravenous contrast material. Individualized dose optimization techniques were used for this CT. COMPARISON: Comparison is made with prior study dated 12/20/2020. FINDINGS: Normal soft tissue structures. Normal calvarium. Normal size ventricles and extra-axial spaces for the patient''s age. Normal white matter tracts of the cerebral hemispheres. I suspect an old small lacunar infarct in the left basal ganglia. Normal brainstem. Normal cerebellum. There is no intracranial hemorrhage. There are no findings of an acute ischemic infarction. Normal visualized paranasal sinuses. CT/Brain/Head without Contrast IMPRESSION: I suspect a small old lacunar infarct in the left basal ganglion. Electronically Signed: Patrick Keita MD at 12:08 EDT , Service support ,
--- NOTE | 2021-05-23 10:42 | EKG12_ITS ---
Test Reason : NEURO Blood Pressure : / mmHG Vent. Rate : 060 BPM Atrial Rate : 060 BPM P-R Int : 172 ms QRS Dur : 082 ms QT Int : 420 ms P-R-T Axes : 069 001 019 degrees QTc Int : 420 ms Normal sinus rhythm Normal ECG Confirmed by CHARLENE SPEARS, JAZMYNE ([id number]), associate entertainment editor ANAND HSIEH ([id number]) on 05/25/2021 10:35:21 AM Referred By: ANGELITO Confirmed By:JAZMYNE CHANG MD
--- NOTE | 2021-05-23 10:46 | EDS_ITS ---
HPI History of Present Illness Chief Complaint: Neuro S/Sx Narrative Narrative: Patient is a 56-year-old female who presents to the emergency department for memory loss since . She states that she woke up this morning and has no recollection of this weekend. She states that she has a cloudy smoke like [id number] in bilateral eyes. She states that she had difficulty walking in a straight line. She does have a posterior headache. She feels weak all over. No loss of sensation in any extremity. No issues with word finding. She does have a history of strokes before in the past but does not know if she has had residual deficits from this. Patient not able to tell me any of her medical history or what medication she takes currently as she feels she has a brain fog. She does not believe that she has been sickly recently with any fever/chills, cough, nausea/vomiting or diarrhea. Patient denies any alcohol or drug use. Reviewing her medical record she does have extensive medical problems including conversion disorder, schizophrenia, depression, CKD, hypothyroidism, A. fib, heart failure. [facility] Medical History Allergic rhinitis Aortic valve insufficiency Arthralgia of right hip Arthritis Asthma Asthma Back pain Bipolar 1 disorder Bipolar disorder Blackout Bladder disease Cancer Cardiology follow-up encounter Chest pain Chest pain CKD (chronic kidney disease) CKD (chronic kidney disease) stage 3, GFR 30-59 ml/min Conversion disorder Conversion disorder with abnormal movement Convulsion, non-epileptic COPD (chronic obstructive pulmonary disease) COPD, mild CPAP (continuous positive airway pressure) dependence Cyst Depression Dietary restriction Difficulty chewing Easy bruising Enlarged aorta Excessive bleeding Gastric reflux Gastritis GERD (gastroesophageal reflux disease) GERD (gastroesophageal reflux disease) Heart failure High cholesterol Hip dislocation, right History of CHF (congestive heart failure) History of echocardiogram History of edema History of hiatal hernia History of IBS History of stress test History of ulceration HLD (hyperlipidemia) HTN (hypertension) Hx of tilt table evaluation Hypertensive crisis without congestive heart failure Hypokalemia Hyponatremia Hyponatremia Hypothyroidism Injury of head and neck Intertriginous dermatitis associated with moisture Left arm swelling Leg cramps Marijuana use Migraine Migraines Non-convulsive status epilepticus Non-rheumatic mitral regurgitation Nonrheumatic aortic (valve) insufficiency Open wound Orthostatic hypotension DAPHNE (obstructive sleep apnea) Osteoarthritis Osteoarthritis of right hip PAF (paroxysmal atrial fibrillation) Peripheral artery disease Post-menopausal Preventative health care Psychosis Pulmonary embolism Right hip pain Right hip pain Schizo NEC, chrn/exacerb Schizophrenia Seizures Shortness of breath on exertion Smoker Stroke Syncope Thyroid disease Tobacco use Walker as ambulation aid Wears dentures Home Medications oxcarbazepine 600 tab PO QHS 09/06/19 [History Last Taken 12/19/20] hydroxyzine pamoate 50 mg PO Q6H PRN 10/18/19 [History Last Taken 12/20/20] nitroglycerin 0.4 mg sublingual tablet 0.4 mg SUBLINGUAL PRN PRN #20 tab 09/10/20 [Rx Last Taken 12/17/20] aripiprazole 5 mg PO QHS 10/31/20 [History Last Taken 12/19/20] trazodone 100 mg PO QHS 10/31/20 [History Last Taken 12/19/20] cholecalciferol (vitamin D3) 1,250 mcg (50,000 unit) capsule 50,000 unit PO FR #12 cap 12/28/20 [Rx Last Taken Unknown] levothyroxine 50 mcg tablet 50 mcg PO DAILY #90 tab 01/03/21 [Rx Last Taken Unknown] aspirin 81 mg tablet,delayed release 81 mg PO DAILY@0800 #90 tablet 01/19/21 [Rx Last Taken Unknown] hydralazine 50 mg tablet 50 mg PO TID 90 Days #270 tab 01/19/21 [Rx Last Taken Unknown] melatonin 10 mg capsule 10 mg PO QHS #90 cap 01/19/21 [Rx Last Taken Unknown] losartan 100 mg tablet 50 mg PO DAILY tab 02/04/21 [History Last Taken Unknown] ascorbic acid (vitamin C) [Vitamin C] 1 g PO DAILY 02/08/21 [History Last Taken Unknown] compr.stocking,thigh,reg,x-lrg #2 ea 03/09/21 [Rx Last Taken Unknown] lidocaine 5 % topical patch 1 patch TOPICAL DAILY #30 ea 03/09/21 [Rx Last Taken Unknown] montelukast 10 mg tablet 10 mg PO QHS #90 tab 03/09/21 [Rx Last Taken Unknown] loratadine 10 mg tablet 10 mg PO DAILY #90 tab 03/28/21 [Rx Last Taken Unknown] spironolactone 25 mg tablet 25 mg PO DAILY #90 tab 03/28/21 [Rx Last Taken Unknown] polyethylene glycol 3350 17 gram/dose oral powder 17 g PO BID 04/07/21 [History Last Taken Unknown] nifedipine 60 mg tablet,extended release 24 hr 30 mg PO BID #90 tab 04/08/21 [Rx Last Taken Unknown] ondansetron 4 mg disintegrating tablet 4 mg PO Q8H PRN #30 tab 04/12/21 [Rx Last Taken Unknown] budesonide-formoterol HFA 160 mcg-4.5 mcg/actuation aerosol inhaler 2 puff INHALATION BID #10.2 g 05/02/21 [Rx Last Taken Unknown] fluticasone propionate 50 mcg/actuation nasal spray,suspension 1 spray NASAL BID #16 g 05/02/21 [Rx Last Taken Unknown] furosemide 20 mg tablet 20 mg PO BID #60 tab 05/02/21 [Rx Last Taken Unknown] ipratropium 20 mcg-albuterol 100 mcg/actuation mist for inhalation 1 puff INHALATION Q4H #4 g 05/02/21 [Rx Last Taken Unknown] guaifenesin 1,200 mg tablet, extended release 12 hr 600 mg PO BID #60 tab 05/05/21 [Rx Last Taken Unknown] albuterol sulfate 1 inh INHALATION Q6H PRN 05/06/21 [History Last Taken Unknown] omeprazole 40 mg capsule,delayed release 40 mg PO DAILY 30 Days #30 cap 05/16/21 [Rx Last Taken Unknown] Allergy/AdvReac Type Severity Reaction Status Date / Time adhesive tape Allergy Rash Verified 05/23/21 10:04 atropine sulfate Allergy Hives Verified 05/23/21 10:04 [From ] codeine phosphate Allergy breathing Verified 05/23/21 10:04 [From Tylenol-Codeine #3] problems divalproex sodium Allergy Unknown Verified 05/23/21 10:04 [From Depakote] hydromorphone HCl Allergy facial Verified 05/23/21 10:04 [From Dilaudid] blisters,itching hyoscyamine sulfate Allergy Hives Verified 05/23/21 10:04 [From ] Iodinated Contrast Media Allergy breathing Verified 05/23/21 10:04 [Iodinated Contrast Media - problems IV Dye] and my bp went up latex Allergy Rash Verified 05/23/21 10:04 pantoprazole sodium Allergy Rash Verified 05/23/21 10:04 [From Protonix] phenobarbital [From ] Allergy Hives Verified 05/23/21 10:04 promethazine HCl Allergy Anaphylaxis Verified 05/23/21 10:04 [From Phenergan] ramipril Allergy Unknown Verified 05/23/21 10:04 scopolamine hydrobromide Allergy Hives Verified 05/23/21 10:04 [From ] ziprasidone mesylate Allergy Unknown Verified 05/23/21 10:04 [From Geodon] Sulfa (Sulfonamide AdvReac Vomiting Verified 05/23/21 10:04 Antibiotics) ziprasidone HCl [From Geodon] AdvReac tremors Verified 05/23/21 10:04 VIDODIN TUSS Allergy Itching Uncoded 05/23/21 10:04 Amlodipine AdvReac Vomiting Uncoded 05/23/21 10:04 Family History Sister Myocardial infarction Colon cancer Mother Hypertension Arthritis Brain aneurysm Sister Colon cancer Surgical History bladder sling History of uterine suspension procedure Hx of cholecystectomy left foot S/P carpal tunnel release Social History Smoking Status: Current every day smoker tobacco type: cigarettes Tobacco: How many years used: 26 alcohol intake: never substance use type: does not use caffeine: Yes Type: coffee ROS ROS ED Constitutional Constitutional ED: Denies chills or fever(s) Eyes Eyes: Reports change in vision ENT ENT ED: Denies epistaxis or rhinorrhea Cardiovascular Cardiovascular: Denies chest pain or palpitations Respiratory/Chest Respiratory/Chest: Denies cough, dyspnea or dyspnea on exertion Gastrointestinal Gastrointestinal: Denies abdominal pain, diarrhea, nausea or vomiting Genitourinary Genitourinary ED: Denies dysuria, hematuria or urinary frequency Musculoskeletal Musculoskeletal: Denies back pain or neck pain Integumentary Denies rash Neurologic Neurologic: Reports headache(s), weakness and other Details: Off-balance sensation EXAM Physical Exam Const Vital Signs: 05/23/21 10:01 Temperature 97.9 F Temperature Source Temporal Pulse Rate 67 Respiratory Rate 15 Blood Pressure 174/81 H Blood Pressure Mean 112 Pulse Ox 100 Oxygen Delivery Method Room Air Positive well nourished and well developed General Appearance ED: well developed and NAD HEENT Reports normocephalic, head/scalp atraumatic and moist mucous membranes Eyes PERRL and EOMs intact bilaterally Neck supple Chest Wall inspection of chest normal Resp normal respiratory effort and clear to auscultation bilaterally Auscultation: Negative for rales, rhonchi or wheezes Cardio regular rate, regular rhythm and no murmurs GI normal to inspection, nondistended, normoactive bowel sounds and non-tender Palpation: soft; Negative for guarding or rebound tenderness present Extremity normal to inspection General Extremety ED: Negative for edema or tenderness General Extremity: Negative for edema Neuro CN's II-XII intact bilaterally and no sensory deficits noted Neuro Narrative: Patient unable to touch her nose now my finger bilaterally. She has difficulty with ghzh-hi-gebx test on the right. She states that her sensation is intact bilaterally. She has difficulty to raise her arms bilaterally and drops them quickly. Her examination does not appear focal. Sensorium / Orientation: alert Motor Exam: strength 5/5 throughout Psych mental status grossly normal Skin no rashes or lesions noted MDM MDM MDM Narrative Medical decision making narrative: Patient presents to the emergency department for amnesia to the weekend, feeling off balance, headache. Patient's exam does not really fit classic strokelike symptoms she does not have significant dystaxia but is unable to touch her nose or my finger bilaterally. Will check basic lab work, CT scan of the head. If this is a stroke patient is not a TPA candidate as her last known well was at some point. Patient's lab work did not reveal a significant acute abnormality to explain her symptoms. Her sodium is mildly low but this is actually improved from previous lab draws. Her troponin is within normal limits. CT imaging of the head did show evidence of old infarct but no acute intracranial abnormality. I cannot perform CT angio she does have contrast allergy. Patient was positive for methamphetamine which could likely be contributing to her symptoms. Since str renée cannot be completely ruled out here in the ED will bring into the hospital for MRI and further evaluation and management. She otherwise has remained stable throughout ED stay. She understands and is agreeable with this plan. All questions were answered. Lab Data Labs: Laboratory Results - last 24 hr 05/23/21 05/23/21 05/23/21 11:05 11:05 11:05 WBC 7.2 RBC 4.62 Hgb 13.7 Hct 41.0 MCV 88.7 MCH 29.7 MCHC 33.4 RDW Std Deviation 42.9 RDW Coeff of Yonathan 13.2 Plt Count 295 MPV 10.0 Immature Gran % (Auto) 1.100 H Neut % (Auto) 70.4 H Lymph % (Auto) 16.7 L [place] % (Auto) 8.3 Eos % (Auto) 3.2 Baso % (Auto) 0.3 Absolute Neuts (auto) 5.1 Absolute Lymphs (auto) 1.20 Nucleated RBC % 0 Sodium 132 L Potassium 4.1 Chloride 100 Carbon Dioxide 26.0 Anion Gap 6 BUN 15 Creatinine 1.06 H Estim Creat Clear Calc 50.56 Est GFR (MDRD) Af Amer 69 Est GFR (MDRD) Non-Af 57 L BUN/Creatinine Ratio 14.2 Glucose 96 Calcium 8.7 Total Bilirubin 0.30 AST 17 ALT 44 Alkaline Phosphatase 115 Troponin I High Sens 7.7 Total Protein 6.8 Albumin 3.7 Globulin 3.1 Albumin/Globulin Ratio 1.2 Urine Color Urine Clarity Urine pH Ur Specific [place] Urine Protein Urine Glucose (UA) Urine Ketones Urine Occult Blood Urine Nitrite Urine Bilirubin Urine Urobilinogen Ur Leukocyte Esterase Urine RBC Urine WBC Ur Squamous Epith Cells Urine Bacteria Urine Mucus Urine Opiates Screen Urine Methadone Screen Ur Barbiturates Screen Ur Phencyclidine Scrn Ur Amphetamines Screen U Methamphetamin-MDMA U Benzodiazepines Scrn Urine Cocaine Screen U Cannabinoids Screen Ur Drug Screen Comment Ethyl Alcohol < 3.0 05/23/21 05/23/21 11:35 11:35 WBC RBC Hgb Hct MCV MCH MCHC RDW Std Deviation RDW Coeff of Yonathan Plt Count MPV Immature Gran % (Auto) Neut % (Auto) Lymph % (Auto) [place] % (Auto) Eos % (Auto) Baso % (Auto) Absolute Neuts (auto) Absolute Lymphs (auto) Nucleated RBC % Sodium Potassium Chloride Carbon Dioxide Anion Gap BUN Creatinine Estim Creat Clear Calc Est GFR (MDRD) Af Amer Est GFR (MDRD) Non-Af BUN/Creatinine Ratio Glucose Calcium Total Bilirubin AST ALT Alkaline Phosphatase Troponin I High Sens Total Protein Albumin Globulin Albumin/Globulin Ratio Urine Color Yellow Urine Clarity Sl. Cloudy Urine pH 6.0 Ur Specific [place] 1.020 Urine Protein Negative Urine Glucose (UA) Normal Urine Ketones Negative Urine Occult Blood Negative Urine Nitrite Negative Urine Bilirubin Negative Urine Urobilinogen Normal Ur Leukocyte Esterase 25 H Urine RBC 0 SEEN Urine WBC 0-5 SEEN Ur Squamous Epith Cells 10-25 SEEN Urine Bacteria 2+ Urine Mucus 0 SEEN Urine Opiates Screen NEGATIVE Urine Methadone Screen NEGATIVE Ur Barbiturates Screen NEGATIVE Ur Phencyclidine Scrn NEGATIVE Ur Amphetamines Screen NEGATIVE U Methamphetamin-MDMA POSITIVE H U Benzodiazepines Scrn NEGATIVE Urine Cocaine Screen NEGATIVE U Cannabinoids Screen NEGATIVE Ur Drug Screen Comment Ethyl Alcohol Radiography Diagnostic Testing: Radiology Impression Brain CT 05/23/21 10:42 IMPRESSION: I suspect a small old lacunar infarct in the left basal ganglion. Electronically Signed: Patrick Keita MD at 12:08 EDT , Service support , EKG Initial EKG: Attestation: I personally reviewed and interpreted this EKG as follows: (Rate of 60 bpm and normal sinus rhythm. Normal intervals. Normal axis. No significant ST elevations or depressions. No T wave abnormalities.) Discharge Plan Dx/Rx/DC Orders Clinical Impression: Memory loss of unknown cause, Discoordination, Headache Disposition Disposition: Acute Care Hospital [facility] Discharge Date/Time: 05/23/21 14:12
[2021-05-23 11:27] LABS: ALB/GLOB Ratio 1.2 RATIO (0.9-2.4); AST(SGOT) 17 U/L (15-37); Alanine Aminotransfer ALT/SGPT 44 U/L (13-56); Albumin, Serum 3.7 g/dL (3.2-5.0); Alkaline Phosphatase 115 U/L (45-117); Anion Gap 6 (5-15); BUN 15 mg/dL (7-18); BUN/Creat Ratio 14.2 RATIO (10-20); Calcium,Total 8.7 mg/dL (8.5-10.1); Chloride 100 mmol/L (98-107); Creatinine, Serum 1.06 mg/dL (0.55-1.02); EST Glomerular Filtration Rate 57 mL/min (>60); Est Glom Filt Rate - Afr Amer 69 mL/min (>60); Estimated Creatinine Clearance 50.56 ml/min; Globulin 3.1 g/dL (2.2-4.2); Glucose 96 mg/dL (74-106); Potassium 4.1 mmol/L (3.5-5.1); Protein, Total 6.8 g/dL (6.4-8.2); Sodium Level 132 mmol/L (136-145); Troponin-I HS 7.7 pg/mL (3.0-53.7)
[2021-05-23 11:28] LABS: Absolute Neutrophil Count 5.1 X10^3/uL (2.0-7.7); Basophil# 0.02 X10^3/uL; Basophil% 0.3 % (0-1); Eosinophil# 0.23 X10^3/uL; Eosinophils% 3.2 % (0-5); Hemoglobin 13.7 g/dL (12.0-15.0); Lymphocyte % 16.7 % (19-41); Mean Corp Hgb Conc 33.4 g/dL (32-36); Mean Corpuscular Hgb 29.7 pg (27.0-32.0); Mean Corpuscular Volume 88.7 fL (81-99); Monocyte% 8.3 % (0-10); NRBC Flagged by Analyzer 0 % (0-5); Neutrophil # 5.07 X10^3/uL (2.7-7.7); Neutrophil % 70.4 % (47-70); Platelet Count 295 K/mm3 (150-450); RBC Distribution Width CV 13.2 % (11.6-14.6); RBC Distribution Width SD 42.9 fl (35.1-43.9); Red Blood Count 4.62 M/mm3 (4.2-5.4); White Blood Count 7.2 K/mm3 (4.4-11.0)
[2021-05-23 11:39] LABS: Mucous, Urine 0 SEEN /hpf (<or=2+); Red Blood Cells-Urine 0 SEEN /hpf (0-5)
[2021-05-23 11:40] LABS: Color, Urine Yellow (Yellow); Glucose, Dipstick Normal (Normal); Ketone-Dipstick Negative (Negative); Leukocyte Esterase-Dipstick 25 /ul (Negative); Nitrite-Dipstick Negative (Negative); Occult Blood-Urine Negative /ul (Negative); Protein-Dipstick Negative (Negative); Urine Bilirubin Dipstick Negative (Negative); Urine Clarity Sl. Cloudy (Clear); Urine Urobilinogen Normal (Normal)
[2021-05-23 11:46] LABS: Alcohol, Blood (Medical)-Serum < 3.0 mg/dL
[2021-05-23 11:47] LABS: Bacteria 2+ /hpf (None Seen); Squamous Epithelial Cells - UA 10-25 SEEN /hpf (5-10); White Blood Cells 0-5 SEEN /hpf (0-5)
[2021-05-23 11:55] LABS: Amphetamine Urine VISTA NEGATIVE (<1000 ng/mL); Barbiturate Urine VISTA NEGATIVE (< 200 ng/mL); Benzodiazepine Urine VISTA NEGATIVE (< 200 ng/mL); Cocaine Urine VISTA NEGATIVE (< 300 ng/mL); Ecstacy Urine VISTA POSITIVE (< 500 ng/mL); Methadone Urine VISTA NEGATIVE (< 300 ng/mL); PCP Urine VISTA NEGATIVE (< 25 ng/mL); THC Urine VISTA NEGATIVE (< 50 ng/mL); Vista UDS pH Range 6
--- NOTE | 2021-05-23 12:55 | MRI_ITS ---
STUDY: MRA OF THE HEAD WITHOUT CONTRAST REASON FOR EXAM: Female, 56 years old. cva -- amnesia x 5 days, hazy vision TECHNIQUE: 3-D aafy-ky-jdcwee (TOF) imaging was performed with MIPs. The study was performed unenhanced. COMPARISON: MRI of the brain dated May 23, 2021 and December 20, 2020 FINDINGS: Normal bilateral petrous carotid arteries. Normal right cavernous carotid artery with a normal supraclinoid bifurcation. Normal left cavernous carotid artery with a normal supraclinoid bifurcation. Normal right A1 segments of the anterior cerebral artery. Normal left A1 segments of the anterior cerebral artery. Normal intact anterior communicating artery (ACOM). Normal bilateral A2 segments of the anterior cerebral arteries. Normal right M1 and M2 segments of the middle cerebral arteries, with a normal M1 bifurcation. Normal left M1 and M2 segments of the middle cerebral arteries, with a normal M1 bifurcation. There is a persistent origin of the right posterior cerebral artery with absence of the P1 segment of the right posterior cerebral artery. There is non-visualization of the left posterior communicating artery (PCOM). Normal bilateral vertebral arteries. Normal basilar artery with a normal basilar bifurcation. The visualized bilateral superior cerebellar (SCA) arteries are normal. Normal bilateral P1, P2 and visualized P3 segments of the posterior cerebral arteries. There is no demonstrated aneurysm of the [place]. There is no major vessel occlusion or hemodynamically significant stenosis. There is no demonstrated abnormality of the visualized brain. MRI/MRA Head ONLY without Contrast IMPRESSION: Normal MRA of the head Electronically Signed: Rivas Matos MD at 17:44 EDT , Service support ,
--- NOTE | 2021-05-23 12:55 | MRI_ITS ---
STUDY: MRA NECK WITH AND WITHOUT CONTRAST REASON FOR EXAM: Female, 56 years old. cva -- amnesia x 5 days, hazy vision TECHNIQUE: 3-D ugzt-fo-tmndtz (TOF) imaging was performed in an 1.5 T MRI scanner. dotarem 24ml iv was administered for the contrast enhanced images. COMPARISON: MRI of the brain dated May 23, 2021 FINDINGS: RIGHT CAROTID ARTERIES: Normal right common carotid artery (CCA). Normal right common carotid bulb. Normal origin of the right internal carotid (ICA) artery without a hemodynamically significant stenosis. Normal visualized cervical portion of the right internal carotid artery. Normal origin of the right external carotid artery (ECA). LEFT CAROTID ARTERIES: Normal left common carotid artery (CCA). Normal left common carotid bulb. Normal origin of the left internal carotid (ICA) artery without a hemodynamically significant stenosis. Normal visualized cervical portion of the left internal carotid artery. Normal origin of the left external carotid artery (ECA). VERTEBRAL ARTERIES: Normal antegrade flow within the bilateral vertebral artery without a hemodynamically significant stenosis. MRI/MRA Neck WITH and W/O Contrast IMPRESSION: Normal bilateral cervical carotid and vertebral arteries. Electronically Signed: Rivas Matos MD at 17:51 EDT , Service support ,
--- NOTE | 2021-05-23 12:55 | MRI_ITS ---
STUDY: MRI BRAIN WITHOUT CONTRAST REASON FOR EXAM: Female, 56 years old. cva -- amnesia x 5 days, hazy vision TECHNIQUE: Standardized multiplanar fat and water weighted pulse sequences were obtained. COMPARISON: Head CT dated May 23, 2021. MRI of the brain dated December 20, 2020 FINDINGS: Normal size of the ventricles and extra-axial spaces for the patient''s age. There are a limited number of small white matter hyperintensities, distributed throughout the deep white matter tracts of the cerebral hemispheres, consistent with mild chronic white matter ischemic changes. There is no evidence for recent intracranial ischemia or other cause of cytotoxic edema on diffusion weighted imaging (DWI). Normal T2* images of the brain without demonstrated susceptibility artifact. There is no demonstrated hemosiderin stain. No visualized hydrocephalus. Normal bilateral basal ganglia. Normal thalami. There is no extra-axial fluid accumulation. Normal flow voids within the major intracranial circulation suggesting patency by spin echo criteria. Normal sella turcica, pituitary gland, infundibular stalk, optic chiasm and hypothalamus. Normal tectal plate and pineal gland. Normal midbrain, molina and medulla. Normal cerebellum. Normal basal cisterns. Normal bilateral temporal bones. Normal bilateral internal auditory canals. No demonstrated orbital abnormality, within the constraints of a routine brain study. A small mucous retention cyst is present in the inferior aspect of the right maxillary sinus. Normal calvarium and skull base. Normal visualized soft tissue structures. Normal visualized upper cervical spine. MRI/Brain without Contrast IMPRESSION: 1. Mild chronic ischemic changes of the brain, as described above. 2. No demonstrated acute infarct or intracranial hemorrhage Electronically Signed: Rivas Matos MD at 17:42 EDT , Service support ,
--- NOTE | 2021-05-23 13:01 | PCM.HP.STD ---
[facility] - General General Date of Admission: 05/23/21 Date of Service: 05/23/21 Chief Complaint: Forgetfulness HPI Narrative NIGHAT TIMMONS, is a 56 F with past medical history is significant for hypertension, obesity with BMI of 44.6, paroxysmal A. fib, previous history of CVA, schizophrenia who presented with forgetfulness. Per patient she had a mammogram on i.e. 05/19/2021. Patient reported not being able to remember any event between then she was seen in the emergency department. In addition to her forgetfulness patient also reports some tightness in the right arm as well as difficulty with gait. Presented to the emergency department as a result. CT of the head obtained in the ED demonstrated small old lacunar infarct in the left basal ganglia. Subsequently admitted to monitored bed for further management [facility] Medical History Allergic rhinitis Aortic valve insufficiency Arthralgia of right hip Arthritis Asthma Asthma Back pain Bipolar 1 disorder Bipolar disorder Blackout Bladder disease Cancer Cardiology follow-up encounter Chest pain Chest pain CKD (chronic kidney disease) CKD (chronic kidney disease) stage 3, GFR 30-59 ml/min Conversion disorder Conversion disorder with abnormal movement Convulsion, non-epileptic COPD (chronic obstructive pulmonary disease) COPD, mild CPAP (continuous positive airway pressure) dependence Cyst Depression Dietary restriction Difficulty chewing Easy bruising Enlarged aorta Excessive bleeding Gastric reflux Gastritis GERD (gastroesophageal reflux disease) GERD (gastroesophageal reflux disease) Heart failure High cholesterol Hip dislocation, right History of CHF (congestive heart failure) History of echocardiogram History of edema History of hiatal hernia History of IBS History of stress test History of ulceration HLD (hyperlipidemia) HTN (hypertension) Hx of tilt table evaluation Hypertensive crisis without congestive heart failure Hypokalemia Hyponatremia Hyponatremia Hypothyroidism Injury of head and neck Intertriginous dermatitis associated with moisture Left arm swelling Leg cramps Marijuana use Migraine Migraines Non-convulsive status epilepticus Non-rheumatic mitral regurgitation Nonrheumatic aortic (valve) insufficiency Open wound Orthostatic hypotension DAPHNE (obstructive sleep apnea) Osteoarthritis Osteoarthritis of right hip PAF (paroxysmal atrial fibrillation) Peripheral artery disease Post-menopausal Preventative health care Psychosis Pulmonary embolism Right hip pain Right hip pain Schizo NEC, chrn/exacerb Schizophrenia Seizures Shortness of breath on exertion Smoker Stroke Syncope Thyroid disease Tobacco use Walker as ambulation aid Wears dentures Home Medications oxcarbazepine 600 tab PO QHS 09/06/19 [History Last Taken 12/19/20] hydroxyzine pamoate 50 mg PO Q6H PRN 10/18/19 [History Last Taken 12/20/20] nitroglycerin 0.4 mg sublingual tablet 0.4 mg SUBLINGUAL PRN PRN #20 tab 09/10/20 [Rx Last Taken 12/17/20] aripiprazole 5 mg PO QHS 10/31/20 [History Last Taken 12/19/20] trazodone 100 mg PO QHS 10/31/20 [History Last Taken 12/19/20] cholecalciferol (vitamin D3) 1,250 mcg (50,000 unit) capsule 50,000 unit PO FR #12 cap 12/28/20 [Rx Last Taken Unknown] levothyroxine 50 mcg tablet 50 mcg PO DAILY #90 tab 01/03/21 [Rx Last Taken Unknown] aspirin 81 mg tablet,delayed release 81 mg PO DAILY@0800 #90 tablet 01/19/21 [Rx Last Taken Unknown] hydralazine 50 mg tablet 50 mg PO TID 90 Days #270 tab 01/19/21 [Rx Last Taken Unknown] melatonin 10 mg capsule 10 mg PO QHS #90 cap 01/19/21 [Rx Last Taken Unknown] losartan 100 mg tablet 50 mg PO DAILY tab 02/04/21 [History Last Taken Unknown] ascorbic acid (vitamin C) [Vitamin C] 1 g PO DAILY 02/08/21 [History Last Taken Unknown] compr.stocking,thigh,reg,x-lrg #2 ea 03/09/21 [Rx Last Taken Unknown] lidocaine 5 % topical patch 1 patch TOPICAL DAILY #30 ea 03/09/21 [Rx Last Taken Unknown] montelukast 10 mg tablet 10 mg PO QHS #90 tab 03/09/21 [Rx Last Taken Unknown] loratadine 10 mg tablet 10 mg PO DAILY #90 tab 03/28/21 [Rx Last Taken Unknown] spironolactone 25 mg tablet 25 mg PO DAILY #90 tab 03/28/21 [Rx Last Taken Unknown] polyethylene glycol 3350 17 gram/dose oral powder 17 g PO BID 04/07/21 [History Last Taken Unknown] nifedipine 60 mg tablet,extended release 24 hr 30 mg PO BID #90 tab 04/08/21 [Rx Last Taken Unknown] ondansetron 4 mg disintegrating tablet 4 mg PO Q8H PRN #30 tab 04/12/21 [Rx Last Taken Unknown] budesonide-formoterol HFA 160 mcg-4.5 mcg/actuation aerosol inhaler 2 puff INHALATION BID #10.2 g 05/02/21 [Rx Last Taken Unknown] fluticasone propionate 50 mcg/actuation nasal spray,suspension 1 spray NASAL BID #16 g 05/02/21 [Rx Last Taken Unknown] furosemide 20 mg tablet 20 mg PO BID #60 tab 05/02/21 [Rx Last Taken Unknown] ipratropium 20 mcg-albuterol 100 mcg/actuation mist for inhalation 1 puff INHALATION Q4H #4 g 05/02/21 [Rx Last Taken Unknown] guaifenesin 1,200 mg tablet, extended release 12 hr 600 mg PO BID #60 tab 05/05/21 [Rx Last Taken Unknown] albuterol sulfate 1 inh INHALATION Q6H PRN 05/06/21 [History Last Taken Unknown] omeprazole 40 mg capsule,delayed release 40 mg PO DAILY 30 Days #30 cap 05/16/21 [Rx Last Taken Unknown] Allergy/AdvReac Type Severity Reaction Status Date / Time adhesive tape Allergy Rash Verified 05/23/21 10:04 atropine sulfate Allergy Hives Verified 05/23/21 10:04 [From ] codeine phosphate Allergy breathing Verified 05/23/21 10:04 [From Tylenol-Codeine #3] problems divalproex sodium Allergy Unknown Verified 05/23/21 10:04 [From Depakote] hydromorphone HCl Allergy facial Verified 05/23/21 10:04 [From Dilaudid] blisters,itching hyoscyamine sulfate Allergy Hives Verified 05/23/21 10:04 [From ] Iodinated Contrast Media Allergy breathing Verified 05/23/21 10:04 [Iodinated Contrast Media - problems IV Dye] and my bp went up latex Allergy Rash Verified 05/23/21 10:04 pantoprazole sodium Allergy Rash Verified 05/23/21 10:04 [From Protonix] phenobarbital [From ] Allergy Hives Verified 05/23/21 10:04 promethazine HCl Allergy Anaphylaxis Verified 05/23/21 10:04 [From Phenergan] ramipril Allergy Unknown Verified 05/23/21 10:04 scopolamine hydrobromide Allergy Hives Verified 05/23/21 10:04 [From ] ziprasidone mesylate Allergy Unknown Verified 05/23/21 10:04 [From Geodon] Sulfa (Sulfonamide AdvReac Vomiting Verified 05/23/21 10:04 Antibiotics) ziprasidone HCl [From Geodon] AdvReac tremors Verified 05/23/21 10:04 VIDODIN TUSS Allergy Itching Uncoded 05/23/21 10:04 Amlodipine AdvReac Vomiting Uncoded 05/23/21 10:04 Family History Sister Myocardial infarction Colon cancer Mother Hypertension Arthritis Brain aneurysm Sister Colon cancer Surgical History bladder sling History of uterine suspension procedure Hx of cholecystectomy left foot S/P carpal tunnel release Social History Smoking Status: Current every day smoker tobacco type: cigarettes Tobacco: How many years used: 26 alcohol intake: never substance use type: does not use caffeine: Yes Type: coffee ROS ROS Narrative GENERAL: denies fever, chills, night sweats, weight loss, anorexia HEENT: denies headache, sinus congestion, or drainage, dysphagia RESPIRATORY: denies cough, sputum production, shortness of breath, CARDIAC: denies chest pain, palpitations, orthopnea, PND GASTROINTESTINAL: denies abdominal pain, nausea, vomiting, melena, GENITOURINARY: denies dysuria, urgency, frequency, heamaturia EXTREMITY: denies swelling MUSCULOSKELETAL: denies current joint pain or tenderness NEUROLOGIC: Unsteady gait HEMATOLOGIC: denies easy bruising and/or hemorrhage INTEGUMENT: denies rashes PSYCHIATRIC: denies suicidal or homicidal ideation Vital Signs Vital Signs Vital Signs: 05/23/21 10:01 Temperature 97.9 F Temperature Source Temporal Pulse Rate 67 Respiratory Rate 15 Blood Pressure 174/81 H Blood Pressure Mean 112 Pulse Ox 100 Oxygen Delivery Method Room Air Weight Weight: 117.9 kg Body Mass Index (BMI) 44.6 Physical Exam Narrative GENERAL: cooperative HEENT: Atraumatic; EYES; Anicteric, Normal Conjunctiva NECK; supple, normal thyroid, RESPIRATORY: Diminished to auscultation CARDIOVASCULAR: Regular S1 S2, GI: soft, normoactive bowel sounds, : No Renal angle tenderness; EXTREMITIES: No edema, no clubbing, MUSCULOSKELETAL: no muscle waisting NEURO: Awake; no lateralizing signs. SKIN: No Rash PSYCH; Flat affect Results Lab / Micro Data Result Diagrams: 05/23/21 11:05 05/23/21 11:05 Labs: Laboratory Results - last 24 hr 05/23/21 11:05: WBC 7.2, RBC 4.62, Hgb 13.7, Hct 41.0, MCV 88.7, MCH 29.7, MCHC 33.4, RDW Std Deviation 42.9, RDW Coeff of Yonathan 13.2, Plt Count 295, MPV 10.0, Immature Gran % (Auto) 1.100 H, Neut % (Auto) 70.4 H, Lymph % (Auto) 16.7 L, [place] % (Auto) 8.3, Eos % (Auto) 3.2, Baso % (Auto) 0.3, Absolute Neuts (auto) 5.1, Absolute Lymphs (auto) 1.20, Nucleated RBC % 0 05/23/21 11:05: Sodium 132 L, Potassium 4.1, Chloride 100, Carbon Dioxide 26.0, Anion Gap 6, BUN 15, Creatinine 1.06 H, Estim Creat Clear Calc 50.56, Est GFR (MDRD) Af Amer 69, Est GFR (MDRD) Non-Af 57 L, BUN/Creatinine Ratio 14.2, Glucose 96, Calcium 8.7, Total Bilirubin 0.30, AST 17, ALT 44, Alkaline Phosphatase 115, Troponin I High Sens 7.7, Total Protein 6.8, Albumin 3.7, Globulin 3.1, Albumin/Globulin Ratio 1.2 05/23/21 11:05: Ethyl Alcohol < 3.0 05/23/21 11:35: Urine Opiates Screen NEGATIVE, Urine Methadone Screen NEGATIVE, Ur Barbiturates Screen NEGATIVE, Ur Phencyclidine Scrn NEGATIVE, Ur Amphetamines Screen NEGATIVE, U Methamphetamin-MDMA POSITIVE H, U Benzodiazepines Scrn NEGATIVE, Urine Cocaine Screen NEGATIVE, U Cannabinoids Screen NEGATIVE, Ur Drug Screen Comment 05/23/21 11:35: Urine Color Yellow, Urine Clarity Sl. Cloudy, Urine pH 6.0, Ur Specific [place] 1.020, Urine Protein Negative, Urine Glucose (UA) Normal, Urine Ketones Negative, Urine Occult Blood Negative, Urine Nitrite Negative, Urine Bilirubin Negative, Urine Urobilinogen Normal, Ur Leukocyte Esterase 25 H, Urine RBC 0 SEEN, Urine WBC 0-5 SEEN, Ur Squamous Epith Cells 10-25 SEEN, Urine Bacteria 2+, Urine Mucus 0 SEEN Radiology Impression Brain CT 05/23/21 10:42 IMPRESSION: I suspect a small old lacunar infarct in the left basal ganglion. Electronically Signed: Patrick Keita MD at 12:08 EDT , Service support , Assessment & Plan Assessment/Plan (1) Right sided weakness: (2) TGA (transient global amnesia): PLAN: Patient is a 56-year-old lady with multiple comorbidities who presented with a 4-day history of amnesia with associated right upper extremity subjective weakness and tightness in addition to unsteady gait 1. Suspected CVA ?Possibly involving the posterior circulation patient presented with a myriad of symptoms including amnesia subjective right upper extremity weakness as well as unsteady gait. Initial head CT obtained demonstrated a small old lacunar infarct in the left basal ganglia. Patient has been admitted to monitored bed. Ordered every 4 neurochecks. Ordered MRI of the head as well as MRA of the head and neck for subsequent evaluation. Also did obtain 2D echo patient placed on statin therapy and antiplatelet therapy 2. Essential hypertension ?Patient blood pressure is within the permissive level given suspected CVA. Once stroke is ruled out we will treat her blood pressure aggressively 3. Hypothyroidism - Patient is on levothyroxine home dose continued 4. Schizophrenia ?Plan is to continue patient home meds once her medications have been reconciled by pharmacy 5. Morbid obesity - With a BMI of 44.6 patient was counseled on weight reduction 6. Follow-up syndrome with COPD and asthma ?Currently not in exacerbation plan is to continue with aerosol treatment when needed 7. Tobacco dependence - Counseled on cessation, offered nicotine patch for tobacco cravings 8. Paroxysmal A. fib ?Per history 9. DVT prophylaxis ?On Lovenox Charges/Coding Visit Charges OBSV E&M: 88297 Initial observation care L3
[2021-05-23 13:39] LABS: Troponin-I HS 8.4 pg/mL (3.0-53.7)
--- NOTE | 2021-05-23 14:28 | ECHOD_ITS ---
Reason For Study: TIA/CVA Procedure This was a 2D Doppler, Color Flow transthoracic echocardiogram. The study was technically difficult. Exam performed portable in patient room. Left Ventricle Normal LV size. Left ventricular systolic function is normal. The estimated ejection fraction is 65 %. No evidence for diastolic dysfunction. No regional wall motion abnormalities noted. Right Ventricle Normal RV size. Normal systolic function. Atria The left atrium is mildly enlarged. Normal right atrium. No doppler evidence for ASD. Mitral Valve There is no mitral annular calcification. Normal mitral valve. Trivial mitral valve insufficiency. Tricuspid Valve Normal tricuspid valve. Trivial tricuspid valve insufficiency. Right ventricular systolic pressure estimated to be 45 mmHg. Aortic Valve Trisinus/trileaflet aortic valve. Mild focal aortic valve calcification. Mild (1+) aortic valve insufficiency. Pulmonic Valve The pulmonic valve is not well visualized. Trivial pulmonic valve insufficiency. Great Vessels Mildly dilated aortic root. Pericardium/Pleural No pericardial effusion. Medication Bubble study deferred due to previously positive bubble on echo (12/31/18). MMode/2D Measurements & Calculations LVIDd: 5.7 cm IVSd: 0.93 cm Ao root diam: 4.1 cm LVIDs: 3.8 cm LVPWd: 0.99 cm RVDd: 2.8 cm FS: 32.8 % LAV(MOD-bp): 68.1 ml LVAd ap4: 40.4 cm2 LVAd ap2: 39.0 cm2 LAV(MOD-bp) Indexed: 31.2 ml/m2 LVLd ap4: 9.5 cm LVLd ap2: 9.7 cm LAV(MOD-sp2): 83.9 ml EDV(MOD-sp4): 140.1 ml EDV(MOD-sp2): 131.7 ml LAV(MOD-sp4): 55.5 ml EDV(sp4-el): 145.2 ml EDV(sp2-el): 133.2 ml LVAs ap4: 19.9 cm2 LVAs ap2: 17.6 cm2 LVLs ap4: 6.8 cm LVLs ap2: 7.6 cm ESV(MOD-sp4): 46.0 ml ESV(MOD-sp2): 35.2 ml ESV(sp4-el): 49.3 ml ESV(sp2-el): 34.6 ml EF(MOD-sp4): 67.2 % EF(MOD-sp2): 73.3 % EF(sp4-el): 66.1 % SV(MOD-sp4): 94.2 ml SV(MOD-sp2): 96.5 ml SV(sp4-el): 96.0 ml LA A4 area: 19.0 cm2 LA dimension(2D): 4.1 cm RA A4 area: 15.6 cm2 Time Measurements MV dec time: 0.14 sec Doppler Measurements & Calculations MV E max govind: 110.0 cm/sec Lat Peak E' Govind: 9.5 cm/sec Med Peak E' Govind: 8.6 cm/sec MV A max govind: 102.6 cm/sec E/E' lat: 11.6 E/E' med: 12.7 MV E/A: 1.1 Ao V2 max: 208.7 cm/sec AI max govind: 441.5 cm/sec LV V1 max: 159.3 cm/sec Ao max P.5 mmHg AI max P.1 mmHg LV V1 max P.2 mmHg Ao V2 mean: 144.8 cm/sec LV V1 mean P.7 mmHg Ao mean P.3 mmHg AI dec slope: 181.8 cm/sec2 LV V1 mean: 113.3 cm/sec Ao V2 VTI: 45.6 cm AI P1/2t: 711.2 msec LV V1 VTI: 36.4 cm TR max govind: 323.1 cm/sec TR max P.8 mmHg ECHO/Echo Complete Interpretation Summary The study was technically difficult. Left ventricular systolic function is normal. The estimated ejection fraction is 65 %. The left atrium is mildly enlarged. Trivial mitral valve insufficiency. Trivial tricuspid valve insufficiency. Mild focal aortic valve calcification. Mild (1+) aortic valve insufficiency. Trivial pulmonic valve insufficiency. Mildly dilated aortic root. Right ventricular systolic pressure estimated to be 45 mmHg. No evidence for diastolic dysfunction. Comment: The transthoracic echocardiogram from 12-31-2018 reports a positive je tated saline contrast study for a right to left interatrial shunt compatible with a PFO. Ordering Physician: Chepe Monsivais Referring Physician: Scarlet Navarro Performed By: Brianna Cotter, BELINDACS, RVT
[2021-05-23] MEDS: Enoxaparin 40 MG/0.4 ML Syringe SC (16:42)
[2021-05-23] MEDS: Dextrose 5%/0.9% NaCl 1,000 ML 100 ML IV (16:43)
[2021-05-23] MEDS: Albuterol 2.5 MG/3 ML VIAL.NEB. INHALATION (19:02)
[2021-05-23] MEDS: Budesonide Respules 0.5 MG/2 ML AMPUL.NEB. INHALATION (19:02)
[2021-05-23] MEDS: Atorvastatin Calcium 40 MG Tablet PO (21:47)
[2021-05-23] MEDS: Fluticasone 0.05% 1 SPRAY NASAL.SRY NASAL (21:47)
[2021-05-24 02:59] VITALS: PULSE 54
[2021-05-24] MEDS: Dextrose 5%/0.9% NaCl 1,000 ML 100 ML IV ×2 (03:23→09:14)
[2021-05-24 04:00] VITALS: BP 142/63; PULSE 62; RESP 18; TEMP 37.1; O2SAT 96
[2021-05-24 05:40] LABS: Absolute Lymphocyte Count 0.96 X10^3/uL (0.83-4.51); Absolute Neutrophil Count 5.1 X10^3/uL (2.0-7.7); Basophil# 0.02 X10^3/uL; Basophil% 0.3 % (0-1); Eosinophil# 0.24 X10^3/uL; Eosinophils% 3.5 % (0-5); Hematocrit 37.5 % (37-47); Hemoglobin 12.9 g/dL (12.0-15.0); Lymphocyte # 0.96 X10^3/ul (0.83-4.51); Mean Corp Hgb Conc 34.4 g/dL (32-36); Mean Corpuscular Hgb 29.9 pg (27.0-32.0); Mean Corpuscular Volume 86.8 fL (81-99); Mean Platelet Vol. 10.1 fl (6.2-12.0); Monocyte# 0.52 X10^3/uL; Monocyte% 7.6 % (0-10); NRBC Flagged by Analyzer 0 % (0-5); Neutrophil # 5.08 X10^3/uL (2.7-7.7); Platelet Count 241 K/mm3 (150-450); RBC Distribution Width CV 12.9 % (11.6-14.6); RBC Distribution Width SD 40.9 fl (35.1-43.9); Red Blood Count 4.32 M/mm3 (4.2-5.4); White Blood Count 6.9 K/mm3 (4.4-11.0)
[2021-05-24] MEDS: Levothyroxine 50 MCG Tablet PO (06:02)
[2021-05-24] MEDS: 0.9% Saline Lock 10 ML Syringe IV (06:03)
[2021-05-24 06:12] LABS: Anion Gap 6 (5-15); BUN 15 mg/dL (7-18); BUN/Creat Ratio 15.1 RATIO (10-20); Calcium,Total 8.2 mg/dL (8.5-10.1); Chloride 103 mmol/L (98-107); Cholesterol 146 mg/dL (200); Creatinine, Serum 0.99 mg/dL (0.55-1.02); EST Glomerular Filtration Rate 61 mL/min (>60); Est Glom Filt Rate - Afr Amer 74 mL/min (>60); Estimated Creatinine Clearance 54.14 ml/min; Glucose 120 mg/dL (74-106); High Density Lipoprotein 41 mg/dL; Potassium 4.2 mmol/L (3.5-5.1); Sodium Level 131 mmol/L (136-145); Triglycerides 104 mg/dL; Very Low Density Lipoprotein 21 mg/dL (5-40)
[2021-05-24] MEDS: Budesonide Respules 0.5 MG/2 ML AMPUL.NEB. INHALATION (06:47)
[2021-05-24] MEDS: Albuterol 2.5 MG/3 ML VIAL.NEB. INHALATION (06:47)
[2021-05-24 06:48] VITALS: PULSE 56; RESP 22; O2SAT 97
[2021-05-24 07:00] VITALS: PULSE 53
--- NOTE | 2021-05-24 07:35 | DS.PCM_ITS ---
Providers Date of Admission: 05/23/21 Primary Care Physician: Dr. Scarlet Navarro MD Reason For Visit: TIA Diagnosis Discharge Diagnosis (1) Right sided weakness: Status: Acute Code(s): R53.1 - Weakness (2) TGA (transient global amnesia): Status: Acute Code(s): G45.4 - Transient global amnesia Medications at Discharge Home Medications oxcarbazepine 600 tab PO QHS 09/06/19 hydroxyzine pamoate 50 mg PO Q6H PRN 10/18/19 nitroglycerin 0.4 mg sublingual tablet 0.4 mg SUBLINGUAL PRN PRN #20 tab 09/10/20 aripiprazole 5 mg PO QHS 10/31/20 trazodone 100 mg PO QHS 10/31/20 cholecalciferol (vitamin D3) 1,250 mcg (50,000 unit) capsule 50,000 unit PO FR #12 cap 12/28/20 levothyroxine 50 mcg tablet 50 mcg PO DAILY #90 tab 01/03/21 aspirin 81 mg tablet,delayed release 81 mg PO DAILY@0800 #90 tablet 01/19/21 melatonin 10 mg capsule 10 mg PO QHS #90 cap 01/19/21 losartan 100 mg tablet 50 mg PO DAILY tab 02/04/21 ascorbic acid (vitamin C) [Vitamin C] 1 g PO DAILY 02/08/21 compr.stocking,thigh,reg,x-lrg #2 ea 03/09/21 lidocaine 5 % topical patch 1 patch TOPICAL DAILY #30 ea 03/09/21 montelukast 10 mg tablet 10 mg PO QHS #90 tab 03/09/21 loratadine 10 mg tablet 10 mg PO DAILY #90 tab 03/28/21 polyethylene glycol 3350 17 gram/dose oral powder 17 g PO BID 04/07/21 nifedipine 60 mg tablet,extended release 24 hr 30 mg PO BID #90 tab 04/08/21 ondansetron 4 mg disintegrating tablet 4 mg PO Q8H PRN #30 tab 04/12/21 budesonide-formoterol HFA 160 mcg-4.5 mcg/actuation aerosol inhaler 2 puff INHALATION BID #10.2 g 05/02/21 fluticasone propionate 50 mcg/actuation nasal spray,suspension 1 spray NASAL BID #16 g 05/02/21 furosemide 20 mg tablet 20 mg PO BID #60 tab 05/02/21 ipratropium 20 mcg-albuterol 100 mcg/actuation mist for inhalation 1 puff INHALATION Q4H #4 g 05/02/21 guaifenesin 1,200 mg tablet, extended release 12 hr 600 mg PO BID #60 tab 05/05/21 albuterol sulfate 1 inh INHALATION Q6H PRN 05/06/21 omeprazole 40 mg capsule,delayed release 40 mg PO DAILY 30 Days #30 cap 05/16/21 hydralazine 50 mg PO TID 05/23/21 spironolactone 25 mg PO QHS 05/23/21 Medical Records Data Medical Nutrition Assessment Dietitian: Nutrition Therapy Diagnosis Start: 05/23/21 16:12 Freq: Status: Active Protocol: Document 05/23/21 16:24 SLA (Rec: 05/23/21 16:24 SLA [id number]) Nutrition Malnutrition Evidence of Malnutrition Exists No Intake Problem Inadequate Oral Intake Etiology related to acute illness Signs/Symptoms as evidenced by NPO status and 4.4% wt loss x 1 month prior to admission Status Active Problem Recommendation Dietitian Recommendations/Changes Will interview pt at time of follow up re: diet/wt history, etc and make additional nutrition rec as indicated. As medically able, rec diet as tolerated to Cardiac / Sodium Restricted Will monitor need for po supplement pending po intake as established Will provide diet education prior to discharge as indicated Weight / BMI Weight Weight: 123.6 kg Body Mass Index (BMI) 47.0 ABG / Lab / Microbiology Data Result Diagrams: 05/24/21 05:14 05/24/21 05:14 Laboratory: Laboratory Results - last 24 hr 05/23/21 11:05: WBC 7.2, RBC 4.62, Hgb 13.7, Hct 41.0, MCV 88.7, MCH 29.7, MCHC 33.4, RDW Std Deviation 42.9, RDW Coeff of Yonathan 13.2, Plt Count 295, MPV 10.0, Immature Gran % (Auto) 1.100 H, Neut % (Auto) 70.4 H, Lymph % (Auto) 16.7 L, [place] % (Auto) 8.3, Eos % (Auto) 3.2, Baso % (Auto) 0.3, Absolute Neuts (auto) 5.1, Absolute Lymphs (auto) 1.20, Nucleated RBC % 0 05/23/21 11:05: Sodium 132 L, Potassium 4.1, Chloride 100, Carbon Dioxide 26.0, Anion Gap 6, BUN 15, Creatinine 1.06 H, Estim Creat Clear Calc 50.56, Est GFR (MDRD) Af Amer 69, Est GFR (MDRD) Non-Af 57 L, BUN/Creatinine Ratio 14.2, G lucose 96, Calcium 8.7, Total Bilirubin 0.30, AST 17, ALT 44, Alkaline Phosphatase 115, Troponin I High Sens 7.7, Total Protein 6.8, Albumin 3.7, Globulin 3.1, Albumin/Globulin Ratio 1.2 05/23/21 11:05: Ethyl Alcohol < 3.0 05/23/21 11:35: Urine Opiates Screen NEGATIVE, Urine Methadone Screen NEGATIVE, Ur Barbiturates Screen NEGATIVE, Ur Phencyclidine Scrn NEGATIVE, Ur Amphetamines Screen NEGATIVE, U Methamphetamin-MDMA POSITIVE H, U Benzodiazepines Scrn NEGATIVE, Urine Cocaine Screen NEGATIVE, U Cannabinoids Screen NEGATIVE, Ur Drug Screen Comment 05/23/21 11:35: Urine Color Yellow, Urine Clarity Sl. Cloudy, Urine pH 6.0, Ur Specific [place] 1.020, Urine Protein Negative, Urine Glucose (UA) Normal, Urine Ketones Negative, Urine Occult Blood Negative, Urine Nitrite Negative, Urine Bilirubin Negative, Urine Urobilinogen Normal, Ur Leukocyte Esterase 25 H, Urine RBC 0 SEEN, Urine WBC 0-5 SEEN, Ur Squamous Epith Cells 10-25 SEEN, Urine Bacteria 2+, Urine Mucus 0 SEEN 05/23/21 13:15: Troponin I High Sens 8.4 05/24/21 05:14: WBC 6.9, RBC 4.32, Hgb 12.9, Hct 37.5, MCV 86.8, MCH 29.9, MCHC 34.4, RDW Std Deviation 40.9, RDW Coeff of Yonathan 12.9, Plt Count 241, MPV 10.1, Immature Gran % (Auto) 0.600, Neut % (Auto) 74.0 H, Lymph % (Auto) 14.0 L, [place] % (Auto) 7.6, Eos % (Auto) 3.5, Baso % (Auto) 0.3, Absolute Neuts (auto) 5.1, Absolute Lymphs (auto) 0.96, Nucleated RBC % 0 05/24/21 05:14: Sodium 131 L, Potassium 4.2, Chloride 103, Carbon Dioxide 22.0, Anion Gap 6, BUN 15, Creatinine 0.99, Estim Creat Clear Calc 54.14, Est GFR (MDRD) Af Amer 74, Est GFR (MDRD) Non-Af 61, BUN/Creatinine Ratio 15.1, Glucose 120 H, Calcium 8.2 L, Magnesium 2.0, Triglycerides 104, Cholesterol 146, LDL Cho lesterol 84, VLDL Cholesterol 21, HDL Cholesterol 41 Radiography Diagnostic Testing: Radiology Impression Brain CT 05/23/21 10:42 IMPRESSION: I suspect a small old lacunar infarct in the left basal ganglion. Electronically Signed: Patrick Keita MD at 12:08 EDT , Service support , Brain MRI 05/23/21 12:55 IMPRESSION: 1. Mild chronic ischemic changes of the brain, as described above. 2. No demonstrated acute infarct or intracranial hemorrhage Electronically Signed: Rivas Matos MD at 17:42 EDT , Service support , Head MRA 05/23/21 12:55 IMPRESSION: Normal MRA of the head Electronically Signed: Rivas Matos MD at 17:44 EDT , Service support , Neck MRA 05/23/21 12:55 IMPRESSION: Normal bilateral cervical carotid and vertebral arteries. Electronically Signed: Rivas Matos MD at 17:51 EDT , Service support , Discharge Plan Admission Admit Date/Time: 05/23/21 12:55 Attending Provider: Chepe Monsivais Primary Care Provider: Scarlet Navarro Discharge Orders/Prescriptions Prescriptions: No Action nitroglycerin 0.4 mg tablet, sublingual 0.4 mg SUBLINGUAL PRN PRN (Reason: CHEST PAIN) Qty: 20 RF: 0 losartan 100 mg tablet 50 mg PO DAILY RF: 0 cholecalciferol (vitamin D3) 1,250 mcg (50,000 unit) capsule 50,000 unit PO FR Qty: 12 RF: 1 montelukast [Singulair] 10 mg tablet 10 mg PO QHS Qty: 90 RF: 1 (DME) compr.stocking,thigh,reg,x-lrg Misc See Rx Instructions .ROUTE .MEDSUPPLY Qty: 2 RF: 0 lidocaine 5 % adhesive patch,medicated 1 patch topical DAILY Qty: 30 RF: 1 polyethylene glycol 3350 [Miralax] 17 gram/dose powder 17 g PO BID RF: 0 oxcarbazepine 600 MG tablet 600 tab PO QHS RF: 0 hydroxyzine pamoate 50 MG capsule 50 mg PO Q6H PRN (Reason: Anxiety) RF: 0 trazodone 100 MG tablet 100 mg PO QHS RF: 0 aripiprazole 5 MG tablet 5 mg PO QHS RF: 0 ascorbic acid (vitamin C) [Vitamin C] 1,000 mg Tablet 1 g PO DAILY RF: 0 albuterol sulfate 90 mcg/actuation Hfa Aerosol Inhaler 1 inh INHALATION Q6H PRN (Reason: sob) RF: 0 spironolactone 25 mg tablet 25 mg PO QHS RF: 0 hydralazine 50 mg tablet 50 mg PO TID RF: 0 levothyroxine 50 mcg tablet 50 mcg PO DAILY Qty: 90 RF: 3 aspirin 81 mg tablet,delayed release (DR/EC) 81 mg PO DAILY@0800 Qty: 90 RF: 3 melatonin 10 mg capsule 10 mg PO QHS Qty: 90 RF: 3 loratadine 10 mg tablet 10 mg PO DAILY Qty: 90 RF: 1 nifedipine 60 mg tablet extended release 24hr 30 mg PO BID Qty: 90 RF: 3 ondansetron 4 mg tablet,disintegrating 4 mg PO Q8H PRN (Reason: nausea and vomiting) Qty: 30 RF: 1 budesonide-formoterol [Symbicort] 160-4.5 mcg/actuation HFA aerosol inhaler 2 puff INHALATION BID Qty: 10.2 RF: 3 fluticasone propionate 50 mcg/actuation spray,suspension 1 spray NASAL BID Qty: 16 RF: 1 Combivent Respimat 20-100 mcg/actuation mist 1 puff INHALATION Q4H Qty: 4 RF: 2 furosemide 20 mg tablet 20 mg PO BID Qty: 60 RF: 1 guaifenesin 1,200 mg tablet extended release 12hr 600 mg PO BID Qty: 60 RF: 1 omeprazole 40 mg capsule,delayed release(DR/EC) 40 mg PO DAILY 30 Days Qty: 30 RF: 6
[2021-05-24 09:01] VITALS: BP 178/80; PULSE 64; RESP 18; TEMP 36.6; O2SAT 96
[2021-05-24] MEDS: Enoxaparin 40 MG/0.4 ML Syringe SC (09:07)
[2021-05-24] MEDS: Polyethylene Glycol 3350 17 GM PACKET PO (09:07)
[2021-05-24] MEDS: Aspirin E.C. 81 MG Tablet PO (09:08)
[2021-05-24] MEDS: Fluticasone 0.05% 1 SPRAY NASAL.SRY NASAL (09:08)
[2021-05-24] MEDS: Loratadine 10 MG Tablet PO (09:08)
[2021-05-24] MEDS: Furosemide 20 MG Tablet PO (09:08)
[2021-05-24] MEDS: Pantoprazole Sodium 40 MG Tablet PO (09:08)
[2021-05-24] MEDS: NIFEdipine 30 MG Tablet PO (09:11)
[2021-05-24] MEDS: Losartan Potassium 50 MG Tablet PO (09:11)
[2021-05-24] MEDS: guaiFENesin 600 MG Tablet PO (09:11)
--- NOTE | 2021-05-24 10:34 | CASEMGMT ---
SW completed a PHQ 9 with patient as she had a TIA. She scored a 4 which indicates minimal depression. She declined the need for counseling resources or [facility] Stroke Support Group. Roberta PAUL
--- NOTE | 2021-05-24 10:43 | PCM.DC.SUM ---
Providers Date of Admission: 05/23/21 Primary Care Physician: Dr. Scarlet Navarro MD Reason For Visit: TIA Diagnosis Discharge Diagnosis (1) Right sided weakness: Status: Acute Code(s): R53.1 - Weakness (2) TGA (transient global amnesia): Status: Acute Code(s): G45.4 - Transient global amnesia Medications at Discharge Home Medications oxcarbazepine 600 tab PO QHS 09/06/19 hydroxyzine pamoate 50 mg PO Q6H PRN 10/18/19 nitroglycerin 0.4 mg sublingual tablet 0.4 mg SUBLINGUAL PRN PRN #20 tab 09/10/20 aripiprazole 5 mg PO QHS 10/31/20 trazodone 100 mg PO QHS 10/31/20 cholecalciferol (vitamin D3) 1,250 mcg (50,000 unit) capsule 50,000 unit PO FR #12 cap 12/28/20 levothyroxine 50 mcg tablet 50 mcg PO DAILY #90 tab 01/03/21 aspirin 81 mg tablet,delayed release 81 mg PO DAILY@0800 #90 tablet 01/19/21 melatonin 10 mg capsule 10 mg PO QHS #90 cap 01/19/21 losartan 100 mg tablet 50 mg PO DAILY tab 02/04/21 ascorbic acid (vitamin C) [Vitamin C] 1 g PO DAILY 02/08/21 compr.stocking,thigh,reg,x-lrg #2 ea 03/09/21 lidocaine 5 % topical patch 1 patch TOPICAL DAILY #30 ea 03/09/21 montelukast 10 mg tablet 10 mg PO QHS #90 tab 03/09/21 loratadine 10 mg tablet 10 mg PO DAILY #90 tab 03/28/21 polyethylene glycol 3350 17 gram/dose oral powder 17 g PO BID 04/07/21 nifedipine 60 mg tablet,extended release 24 hr 30 mg PO BID #90 tab 04/08/21 ondansetron 4 mg disintegrating tablet 4 mg PO Q8H PRN #30 tab 04/12/21 budesonide-formoterol HFA 160 mcg-4.5 mcg/actuation aerosol inhaler 2 puff INHALATION BID #10.2 g 05/02/21 fluticasone propionate 50 mcg/actuation nasal spray,suspension 1 spray NASAL BID #16 g 05/02/21 furosemide 20 mg tablet 20 mg PO BID #60 tab 05/02/21 ipratropium 20 mcg-albuterol 100 mcg/actuation mist for inhalation 1 puff INHALATION Q4H #4 g 05/02/21 guaifenesin 1,200 mg tablet, extended release 12 hr 600 mg PO BID #60 tab 05/05/21 albuterol sulfate 1 inh INHALATION Q6H PRN 05/06/21 omeprazole 40 mg capsule,delayed release 40 mg PO DAILY 30 Days #30 cap 05/16/21 hydralazine 50 mg PO TID 05/23/21 spironolactone 25 mg PO QHS 05/23/21 atorvastatin 40 mg PO QHS #90 tab 05/24/21 Hospital Course Summary of Care Provided Minutes Spent on Discharge: 35 Hospital Course: Patient is a 56-year-old lady with multiple comorbidities who presented with a 4-day history of amnesia with associated right upper extremity subjective weakness and tightness in addition to unsteady gait 1. Suspected CVA ?Possibly involving the posterior circulation patient presented with a myriad of symptoms including amnesia subjective right upper extremity weakness as well as unsteady gait. Initial head CT obtained demonstrated a small old lacunar infarct in the left basal ganglia. Patient has been admitted to monitored bed. Ordered every 4 neurochecks. Ordered MRI of the head as well as MRA of the head and neck for subsequent evaluation. Also did obtain 2D echo patient placed on statin therapy and antiplatelet therapy -Patient imaging studies negative for acute CVA. Patient symptoms did resolve was discharged home. Statins added to patient's therapy 2. Essential hypertension ?Patient blood pressure is within the permissive level given suspected CVA. Once stroke is ruled out we will treat her blood pressure aggressively 3. Hypothyroidism - Patient is on levothyroxine home dose continued 4. Schizophrenia ?Plan is to continue patient home meds once her medications have been reconciled by pharmacy 5. Morbid obesity - With a BMI of 44.6 patient was counseled on weight reduction 6. Follow-up syndrome with COPD and asthma ?Currently not in exacerbation plan is to continue with aerosol treatment when needed 7. Tobacco dependence - Counseled on cessation, offered nicotine patch for tobacco cravings 8. Paroxysmal A. fib ?Per history 9. DVT prophylaxis ?On Lovenox Physical Exam Narrative GENERAL: cooperative HEENT: Atraumatic; EYES; Anicteric, Normal Conjunctiva NECK; supple, normal thyroid, RESPIRATORY: Diminished to auscultation CARDIOVASCULAR: Regular S1 S2, GI: soft, normoactive bowel sounds, : No Renal angle tenderness; EXTREMITIES: No edema, no clubbing, MUSCULOSKELETAL: no muscle waisting NEURO: Awake; no lateralizing signs. SKIN: No Rash PSYCH; Flat affect Medical Records Data Medical Nutrition Assessment Dietitian: Nutrition Therapy Diagnosis Start: 05/23/21 16:12 Freq: Status: Active Protocol: Document 05/23/21 16:24 SLA (Rec: 05/23/21 16:24 SLA [id number]) Nutrition Malnutrition Evidence of Malnutrition Exists No Intake Problem Inadequate Oral Intake Etiology related to acute illness Signs/Symptoms as evidenced by NPO status and 4.4% wt loss x 1 month prior to admission Status Active Problem Recommendation Dietitian Recommendations/Changes Will interview pt at time of follow up re: diet/wt history, etc and make additional nutrition rec as indicated. As medically able, rec diet as tolerated to Cardiac / Sodium Restricted Will monitor need for po supplement pending po intake as established Will provide diet education prior to discharge as indicated Weight / BMI Weight Weight: 123.6 kg Body Mass Index (BMI) 47.0 ABG / Lab / Microbiology Data Result Diagrams: 05/24/21 05:14 05/24/21 05:14 Laboratory: Laboratory Results - last 24 hr 05/23/21 11:05: WBC 7.2, RBC 4.62, Hgb 13.7, Hct 41.0, MCV 88.7, MCH 29.7, MCHC 33.4, RDW Std Deviation 42.9, RDW Coeff of Yonathan 13.2, Plt Count 295, MPV 10.0, Immature Gran % (Auto) 1.100 H, Neut % (Auto) 70.4 H, Lymph % (Auto) 16.7 L, [place] % (Auto) 8.3, Eos % (Auto) 3.2, Baso % (Auto) 0.3, Absolute Neuts (auto) 5.1, Absolute Lymphs (auto) 1.20, Nucleated RBC % 0 05/23/21 11:05: Sodium 132 L, Potassium 4.1, Chloride 100, Carbon Dioxide 26.0, Anion Gap 6, BUN 15, Creatinine 1.06 H, Estim Creat Clear Calc 50.56, Est GFR (MDRD) Af Amer 69, Est GFR (MDRD) Non-Af 57 L, BUN/Creatinine Ratio 14.2, Glucose 96, Calcium 8.7, Total Bilirubin 0.30, AST 17, ALT 44, Alkaline Phosphatase 115, Troponin I High Sens 7.7, Total Protein 6.8, Albumin 3.7, Globulin 3.1, Albumin/Globulin Ratio 1.2 05/23/21 11:05: Ethyl Alcohol < 3.0 05/23/21 11:35: Urine Opiates Screen NEGATIVE, Urine Methadone Screen NEGATIVE, Ur Barbiturates Screen NEGATIVE, Ur Phencyclidine Scrn NEGATIVE, Ur Amphetamines Screen NEGATIVE, U Methamphetamin-MDMA POSITIVE H, U Benzodiazepines Scrn NEGATIVE, Urine Cocaine Screen NEGATIVE, U Cannabinoids Screen NEGATIVE, Ur Drug Screen Comment 05/23/21 11:35: Urine Color Yellow, Urine Clarity Sl. Cloudy, Urine pH 6.0, Ur Specific [place] 1.020, Urine Protein Negative, Urine Glucose (UA) Normal, Urine Ketones Negative, Urine Occult Blood Negative, Urine Nitrite Negative, Urine Bilirubin Negative, Urine Urobilinogen Normal, Ur Leukocyte Esterase 25 H, Urine RBC 0 SEEN, Urine WBC 0-5 SEEN, Ur Squamous Epith Cells 10-25 SEEN, Urine Bacteria 2+, Urine Mucus 0 SEEN 05/23/21 13:15: Troponin I High Sens 8.4 05/24/21 05:14: WBC 6.9, RBC 4.32, Hgb 12.9, Hct 37.5, MCV 86.8, MCH 29.9, MCHC 34.4, RDW Std Deviation 40.9, RDW Coeff of Yonathan 12.9, Plt Count 241, MPV 10.1, Immature Gran % (Auto) 0.600, Neut % (Auto) 74.0 H, Lymph % (Auto) 14.0 L, [place] % (Auto) 7.6, Eos % (Auto) 3.5, Baso % (Auto) 0.3, Absolute Neuts (auto) 5.1, Absolute Lymphs (auto) 0.96, Nucleated RBC % 0 05/24/21 05:14: Sodium 131 L, Potassium 4.2, Chloride 103, Carbon Dioxide 22.0, Anion Gap 6, BUN 15, Creatinine 0.99, Estim Creat Clear Calc 54.14, Est GFR (MDRD) Af Amer 74, Est GFR (MDRD) Non-Af 61, BUN/Creatinine Ratio 15.1, Glucose 120 H, Calcium 8.2 L, Magnesium 2.0, Triglycerides 104, Cholesterol 146, LDL Cholesterol 84, VLDL Cholesterol 21, HDL Cholesterol 41 Radiography Diagnostic Testing: Radiology Impression Brain CT 05/23/21 10:42 IMPRESSION: I suspect a small old lacunar infarct in the left basal ganglion. Electronically Signed: Patrick Keita MD at 12:08 EDT , Service support , Brain MRI 05/23/21 12:55 IMPRESSION: 1. Mild chronic ischemic changes of the brain, as described above. 2. No demonstrated acute infarct or intracranial hemorrhage Electronically Signed: Rivas Matos MD at 17:42 EDT , Service support , Head MRA 05/23/21 12:55 IMPRESSION: Normal MRA of the head Electronically Signed: Rivas Matos MD at 17:44 EDT , Service support , Neck MRA 05/23/21 12:55 IMPRESSION: Normal bilateral cervical carotid and vertebral arteries. Electronically Signed: Rivas Matos MD at 17:51 EDT , Service support , D/C Instructions Discharge Diet: No restrictions Discharge Activity: Return to Normal Activity Call your doctor if you observe: Fever of 101 or Higher, Shortness of breath, Fainting spells and Chest pain Meaningful Use Info Meaningful Use Diagnoses (Choose all that apply): None applicable Discharge Plan Admission Admit Date/Time: 05/23/21 12:55 Primary Reason for Your Visit: TIA Attending Provider: Chepe Monsivais Primary Care Provider: Scarlet Navarro Discharge Orders/Prescriptions Prescriptions: New atorvastatin 40 mg Tablet 40 mg PO QHS Qty: 90 RF: 0 Continued nitroglycerin 0.4 mg tablet, sublingual 0.4 mg SUBLINGUAL PRN PRN (Reason: CHEST PAIN) Qty: 20 RF: 0 losartan 100 mg tablet 50 mg PO DAILY RF: 0 cholecalciferol (vitamin D3) 1,250 mcg (50,000 unit) capsule 50,000 unit PO FR Qty: 12 RF: 1 montelukast [Singulair] 10 mg tablet 10 mg PO QHS Qty: 90 RF: 1 (DME) compr.stocking,thigh,reg,x-lrg Misc See Rx Instructions .ROUTE .MEDSUPPLY Qty: 2 RF: 0 lidocaine 5 % adhesive patch,medicated 1 patch topical DAILY Qty: 30 RF: 1 polyethylene glycol 3350 [Miralax] 17 gram/dose powder 17 g PO BID RF: 0 oxcarbazepine 600 MG tablet 600 tab PO QHS RF: 0 hydroxyzine pamoate 50 MG capsule 50 mg PO Q6H PRN (Reason: Anxiety) RF: 0 trazodone 100 MG tablet 100 mg PO QHS RF: 0 aripiprazole 5 MG tablet 5 mg PO QHS RF: 0 ascorbic acid (vitamin C) [Vitamin C] 1,000 mg Tablet 1 g PO DAILY RF: 0 albuterol sulfate 90 mcg/actuation Hfa Aerosol Inhaler 1 inh INHALATION Q6H PRN (Reason: sob) RF: 0 spironolactone 25 mg tablet 25 mg PO QHS RF: 0 hydralazine 50 mg tablet 50 mg PO TID RF: 0 levothyroxine 50 mcg tablet 50 mcg PO DAILY Qty: 90 RF: 3 aspirin 81 mg tablet,delayed release (DR/EC) 81 mg PO DAILY@0800 Qty: 90 RF: 3 melatonin 10 mg capsule 10 mg PO QHS Qty: 90 RF: 3 loratadine 10 mg tablet 10 mg PO DAILY Qty: 90 RF: 1 nifedipine 60 mg tablet extended release 24hr 30 mg PO BID Qty: 90 RF: 3 ondansetron 4 mg tablet,disintegrating 4 mg PO Q8H PRN (Reason: nausea and vomiting) Qty: 30 RF: 1 budesonide-formoterol [Symbicort] 160-4.5 mcg/actuation HFA aerosol inhaler 2 puff INHALATION BID Qty: 10.2 RF: 3 fluticasone propionate 50 mcg/actuation spray,suspension 1 spray NASAL BID Qty: 16 RF: 1 Combivent Respimat 20-100 mcg/actuation mist 1 puff INHALATION Q4H Qty: 4 RF: 2 furosemide 20 mg tablet 20 mg PO BID Qty: 60 RF: 1 guaifenesin 1,200 mg tablet extended release 12hr 600 mg PO BID Qty: 60 RF: 1 omeprazole 40 mg capsule,delayed release(DR/EC) 40 mg PO DAILY 30 Days Qty: 30 RF: 6 Referrals / Follow Up: Scarlet Navarro MD [Primary Care Provider] - Within 2 Weeks Disposition Disposition (needs filled in before D/C Order can be placed): Home, Self Care Charges/Coding Visit Charges OBSV E&M: 60856 Observation care discharge
--- NOTE | 2021-05-24 11:51 | PHA.DC.MC ---
Pharmacy Service has performed discharge medication reconciliation and counseling for this patient. 1. ATORVASTATIN 40MG PO QHS The patient's discharge medication list was reviewed for discrepancies and discrepancies were resolved. Home Medications oxcarbazepine 600 tab PO QHS 09/06/19 hydroxyzine pamoate 50 mg PO Q6H PRN 10/18/19 nitroglycerin 0.4 mg sublingual tablet 0.4 mg SUBLINGUAL PRN PRN #20 tab 09/10/20 aripiprazole 5 mg PO QHS 10/31/20 trazodone 100 mg PO QHS 10/31/20 cholecalciferol (vitamin D3) 1,250 mcg (50,000 unit) capsule 50,000 unit PO FR #12 cap 12/28/20 levothyroxine 50 mcg tablet 50 mcg PO DAILY #90 tab 01/03/21 aspirin 81 mg tablet,delayed release 81 mg PO DAILY@0800 #90 tablet 01/19/21 melatonin 10 mg capsule 10 mg PO QHS #90 cap 01/19/21 losartan 100 mg tablet 50 mg PO DAILY tab 02/04/21 ascorbic acid (vitamin C) [Vitamin C] 1 g PO DAILY 02/08/21 compr.stocking,thigh,reg,x-lrg #2 ea 03/09/21 lidocaine 5 % topical patch 1 patch TOPICAL DAILY #30 ea 03/09/21 montelukast 10 mg tablet 10 mg PO QHS #90 tab 03/09/21 loratadine 10 mg tablet 10 mg PO DAILY #90 tab 03/28/21 polyethylene glycol 3350 17 gram/dose oral powder 17 g PO BID 04/07/21 nifedipine 60 mg tablet,extended release 24 hr 30 mg PO BID #90 tab 04/08/21 ondansetron 4 mg disintegrating tablet 4 mg PO Q8H PRN #30 tab 04/12/21 budesonide-formoterol HFA 160 mcg-4.5 mcg/actuation aerosol inhaler 2 puff INHALATION BID #10.2 g 05/02/21 fluticasone propionate 50 mcg/actuation nasal spray,suspension 1 spray NASAL BID #16 g 05/02/21 furosemide 20 mg tablet 20 mg PO BID #60 tab 05/02/21 ipratropium 20 mcg-albuterol 100 mcg/actuation mist for inhalation 1 puff INHALATION Q4H #4 g 05/02/21 guaifenesin 1,200 mg tablet, extended release 12 hr 600 mg PO BID #60 tab 05/05/21 albuterol sulfate 1 inh INHALATION Q6H PRN 05/06/21 omeprazole 40 mg capsule,delayed release 40 mg PO DAILY 30 Days #30 cap 05/16/21 hydralazine 50 mg PO TID 05/23/21 spironolactone 25 mg PO QHS 05/23/21 atorvastatin 40 mg PO QHS #90 tab 05/24/21 The patient was counseled on the following discharge medications and changes in medications for homegoing were reviewed. The Reason for Use, instructions for use, and potential side effects were reviewed for all new medications. The patient's questions regarding all of their medications were answered. The patient was able to verbally demonstrate an understanding of their discharge medications.
== END 2021-05-24 11:00 | disposition home or self-care (01) ==
LOC: ED 11:14 → PCU 13:41
PROVIDERS: Admitting Provider Internal Medicine; Emergency Provider Emergency Medicine; PCP Internal Medicine; Visit Provider Internal Medicine
DX: G45.4 Transient global amnesia (principal); R53.1 Weakness; E03.9 Hypothyroidism, unspecified; F20.9 Schizophrenia, unspecified; E66.01 Morbid (severe) obesity due to excess calories; Z68.42 Body mass index [BMI] 45.0-49.9, adult; J44.9 Chronic obstructive pulmonary disease, unspecified; I48.0 Paroxysmal atrial fibrillation; F17.210 Nicotine dependence, cigarettes, uncomplicated; F44.7 Conversion disorder with mixed symptom presentation; I08.3 Combined rheumatic disorders of mitral, aortic and tricuspid valves; I13.0 Hypertensive heart and chronic kidney disease with heart failure and stage 1 through stage 4 chronic kidney disease, or unspecified chronic kidney disease; N18.2 Chronic kidney disease, stage 2 (mild); I50.9 Heart failure, unspecified; F31.9 Bipolar disorder, unspecified; K21.9 Gastro-esophageal reflux disease without esophagitis; E78.5 Hyperlipidemia, unspecified; I73.9 Peripheral vascular disease, unspecified; G47.33 Obstructive sleep apnea (adult) (pediatric); Z86.73 Personal history of transient ischemic attack (TIA), and cerebral infarction without residual deficits; Z79.899 Other long term (current) drug therapy; Z79.82 Long term (current) use of aspirin; Z79.51 Long term (current) use of inhaled steroids; Z86.711 Personal history of pulmonary embolism
CPT/HCPCS: 36415; 70450; 70544; 70549; 70551; 80048; 80053; 80061; 80307; 81001; 82077; 83735; 84484; 85025; 92523; 93005; 93306; 94640; 94762; 96360; 96361; 96372; 99218; 99251; 99284; 99406; A9575; Q9957; A4216; G0378; G0463; J3490

== ENCOUNTER → 2021-06-07 10:02 | Outpatient (CLI) | payer MEDICAID, SELFPAY ==
[2021-06-07 11:35] LABS: HIV - WCH Non-Reactive (Nonreactive); Hepatitis C Antibody Non-Reactive (Nonreactive); Syphilis Antibodies Non-reactive
[2021-06-10 03:07] LABS: Chlamydia By Nucleic Acid AMP Negative (Negative)
[2021-06-10 12:16] LABS: Gonococcus By Nucleic Acid AMP Negative (Negative)
[2021-06-13 20:08] LABS: HPV Genotype 16, Aptima Negative (Negative)
[2021-06-13 20:53] LABS: HPV APTIMA, High Risk Positive (Negative); HPV Genotype 18,45 Aptima Negative (Negative)
== END ==
PROVIDERS: PCP Internal Medicine; Referring Provider Nurse Practitioner Women's Health; Visit Provider Nurse Practitioner Women's Health
DX: Z11.3 Encounter for screening for infections with a predominantly sexual mode of transmission (principal); Z20.2 Contact with and (suspected) exposure to infections with a predominantly sexual mode of transmission; Z12.4 Encounter for screening for malignant neoplasm of cervix
CPT/HCPCS: 36415; 86695; 86696; 86703; 86780; 86803; 87491; 87591; 87624; 88175; G0145

== ENCOUNTER 2021-06-16 08:28 | Emergency (ER) | payer MEDICAID, SELFPAY ==
[2021-06-16 08:29] VITALS: BP 193/87; PULSE 92; RESP 14; TEMP 37.1; O2SAT 99; BMI 45.3
--- NOTE | 2021-06-16 08:57 | RAD_ITS ---
INDICATION: cough EXAMINATION/TECHNIQUE: X-RAY - XR Chest 1 View COMPARISON: 02/08/2021. FINDINGS: LINES/DEVICES: EKG leads are seen superimposing the chest. LUNGS: Peribronchial cuffing and mild prominence of the perihilar bronchovascular markings visualized demonstrates no significant change in comparison to the prior study. Mild prominence of the bronchovascular markings are seen but no evidence of focal infiltrate or consolidation. No evidence of pneumothorax or pleural effusion. MEDIASTINUM AND CARDIOVASCULAR STRUCTURES: Prominence of the cardiovascular silhouette demonstrates no significant change. BONES AND SOFT TISSUES: Mild degenerative bone changes are seen.. RAD/Chest 1 View (Portable) IMPRESSION: Peribronchial cuffing and bilateral hilar prominence would recommend clinical correlation for bronchitis or airway disease. Electronically Signed: Ricky Bassett MD at 9:50 EDT Tel , Service support ,
--- NOTE | 2021-06-16 08:59 | ED.VIS.DYS ---
HPI History of Present Illness Chief Complaint: Shortness of Breath Informant: patient Onset/Context/Timing Onset: Yesterday Context: sudden Timing: Continuous Quality: Positive for Dyspnea on exertion Worsened by: Exertion Relieved by: Rest Associated Symptoms cough and white sputum Chest Pain: Positive for Intermittent and Sharp Narrative Narrative: Patient presents with shortness of breath that began yesterday. Patient states that her breathing is worse with any exertion. Patient states her breathing is better when she rests and lays flat. Patient admits to a cough with some white sputum. Patient admits to some subjective chills but denies any fevers. Patient also admits to some stabbing pain in her chest bilaterally. Patient has not received her COVID-19 vaccine yet. Patient is unsure if she had any COVID-19 exposures. Patient states she lost her sense of taste today [facility] Medical History Allergic rhinitis Aortic valve insufficiency Arthralgia of right hip Arthritis Asthma Back pain Bipolar 1 disorder Bipolar disorder Blackout Bladder disease Cancer Cardiology follow-up encounter Chest pain Chest pain CKD (chronic kidney disease) Conversion disorder Conversion disorder with abnormal movement Convulsion, non-epileptic COPD (chronic obstructive pulmonary disease) COPD, mild CPAP (continuous positive airway pressure) dependence Cyst Depression Dietary restriction Difficulty chewing Easy bruising Enlarged aorta Excessive bleeding Gastric reflux Gastritis GERD (gastroesophageal reflux disease) GERD (gastroesophageal reflux disease) Heart failure High cholesterol Hip dislocation, right History of abnormal cervical Pap smear History of CHF (congestive heart failure) History of echocardiogram History of edema History of hiatal hernia History of IBS History of stress test History of ulceration HLD (hyperlipidemia) HTN (hypertension) Hx of tilt table evaluation Hypertensive crisis without congestive heart failure Hypokalemia Hyponatremia Hyponatremia Hypothyroidism Injury of head and neck Intertriginous dermatitis associated with moisture Left arm swelling Leg cramps Marijuana use Migraine Migraines Non-convulsive status epilepticus Non-rheumatic mitral regurgitation Nonrheumatic aortic (valve) insufficiency Open wound Orthostatic hypotension DAPHNE (obstructive sleep apnea) Osteoarthritis Osteoarthritis of right hip PAF (paroxysmal atrial fibrillation) Peripheral artery disease Post-menopausal Psychosis Pulmonary embolism Right hip pain Schizo NEC, chrn/exacerb Schizophrenia Seizures Shortness of breath on exertion Smoker Stroke Syncope Thyroid disease Tobacco abuse Venous insufficiency of both lower extremities Walker as ambulation aid Wears dentures Home Medications oxcarbazepine 600 tab PO QHS 09/06/19 [History Last Taken 12/19/20] hydroxyzine pamoate 50 mg PO Q6H PRN 10/18/19 [History Last Taken 12/20/20] nitroglycerin 0.4 mg sublingual tablet 0.4 mg SUBLINGUAL PRN PRN #20 tab 09/10/20 [Rx Last Taken 12/17/20] aripiprazole 5 mg PO QHS 10/31/20 [History Last Taken 12/19/20] trazodone 100 mg PO QHS 10/31/20 [History Last Taken 12/19/20] levothyroxine 50 mcg tablet 50 mcg PO DAILY #90 tab 01/03/21 [Rx Last Taken Unknown] aspirin 81 mg tablet,delayed release 81 mg PO DAILY@0800 #90 tablet 01/19/21 [Rx Last Taken Unknown] melatonin 10 mg capsule 10 mg PO QHS #90 cap 01/19/21 [Rx Last Taken Unknown] losartan 100 mg tablet 50 mg PO DAILY tab 02/04/21 [History Last Taken Unknown] ascorbic acid (vitamin C) [Vitamin C] 1 g PO DAILY 02/08/21 [History Last Taken Unknown] compr.stocking,thigh,reg,x-lrg #2 ea 03/09/21 [Rx Last Taken Unknown] lidocaine 5 % topical patch 1 patch TOPICAL DAILY #30 ea 03/09/21 [Rx Last Taken Unknown] montelukast 10 mg tablet 10 mg PO QHS #90 tab 03/09/21 [Rx Last Taken Unknown] loratadine 10 mg tablet 10 mg PO DAILY #90 tab 03/28/21 [Rx Last Taken Unknown] polyethylene glycol 3350 17 gram/dose oral powder 17 g PO BID 04/07/21 [History Last Taken Unknown] nifedipine 60 mg tablet,extended release 24 hr 30 mg PO BID #90 tab 04/08/21 [Rx Last Taken Unknown] budesonide-formoterol HFA 160 mcg-4.5 mcg/actuation aerosol inhaler 2 puff INHALATION BID #10.2 g 05/02/21 [Rx Last Taken Unknown] fluticasone propionate 50 mcg/actuation nasal spray,suspension 1 spray NASAL BID #16 g 05/02/21 [Rx Last Taken Unknown] furosemide 20 mg tablet 20 mg PO BID #60 tab 05/02/21 [Rx Last Taken Unknown] guaifenesin 1,200 mg tablet, extended release 12 hr 600 mg PO BID #60 tab 05/05/21 [Rx Last Taken Unknown] albuterol sulfate 1 inh INHALATION Q6H PRN 05/06/21 [History Last Taken Unknown] omeprazole 40 mg capsule,delayed release 40 mg PO DAILY 30 Days #30 cap 05/16/21 [Rx Last Taken Unknown] hydralazine 50 mg PO TID 05/23/21 [History Last Taken Unknown] spironolactone 25 mg PO QHS 05/23/21 [History Last Taken Unknown] atorvastatin 40 mg PO QHS #90 tab 05/24/21 [Rx Last Taken Unknown] albuterol sulfate 90 mcg/actuation aerosol inhaler 2 puff INHALATION Q4H PRN #8.5 g 05/31/21 [Rx Last Taken Unknown] tiotropium bromide 1.25 mcg/actuation mist for inhalation 2 puff INHALATION DAILY #4 g 05/31/21 [Rx Last Taken Unknown] cholecalciferol (vitamin D3) 1,250 mcg (50,000 unit) capsule 50,000 unit PO FR #12 cap 06/02/21 [Rx Last Taken Unknown] Juxtalite #2 ea 06/08/21 [Rx Last Taken Unknown] nicotine 21 mg/24 hr daily transdermal patch 1 patch TRANSDERMAL Q24H #28 ea 06/08/21 [Rx Last Taken Unknown] ondansetron 4 mg disintegrating tablet 4 mg PO Q8H PRN #30 tab 06/15/21 [Rx Last Taken Unknown] Allergy/AdvReac Type Severity Reaction Status Date / Time adhesive tape Allergy Rash Verified 06/16/21 08:30 atropine sulfate Allergy Hives Verified 06/16/21 08:30 [From ] codeine phosphate Allergy breathing Verified 06/16/21 08:30 [From Tylenol-Codeine #3] problems divalproex sodium Allergy Unknown Verified 06/16/21 08:30 [From Depakote] hydromorphone HCl Allergy facial Verified 06/16/21 08:30 [From Dilaudid] blisters,itching hyoscyamine sulfate Allergy Hives Verified 06/16/21 08:30 [From ] Iodinated Contrast Media Allergy breathing Verified 06/16/21 08:30 [Iodinated Contrast Media - problems IV Dye] and my bp went up latex Allergy Rash Verified 06/16/21 08:30 pantoprazole sodium Allergy Rash Verified 06/16/21 08:30 [From Protonix] phenobarbital [From ] Allergy Hives Verified 06/16/21 08:30 promethazine HCl Allergy Anaphylaxis Verified 06/16/21 08:30 [From Phenergan] ramipril Allergy Unknown Verified 06/16/21 08:30 scopolamine hydrobromide Allergy Hives Verified 06/16/21 08:30 [From ] ziprasidone mesylate Allergy Unknown Verified 06/16/21 08:30 [From Geodon] Sulfa (Sulfonamide AdvReac Vomiting Verified 06/16/21 08:30 Antibiotics) ziprasidone HCl [From Geodon] AdvReac tremors Verified 06/16/21 08:30 VIDODIN TUSS Allergy Itching Uncoded 06/16/21 08:30 Amlodipine AdvReac Vomiting Uncoded 06/16/21 08:30 Family History Sister Myocardial infarction Colon cancer Mother Hypertension Arthritis Brain aneurysm Sister Colon cancer Surgical History bladder sling History of uterine suspension procedure Hx of cholecystectomy left foot S/P carpal tunnel release Social History household members: none number of children: 4 current occupational status: unemployed history of recent travel: No Smoking Status: Current every day smoker tobacco type: cigarettes Tobacco: How many years used: 26 alcohol intake: never substance use type: does not use caffeine: Yes Type: coffee what type of physical activity do you participate in: none seatbelt use: never do you feel safe at home: Yes additional social history: single ROS ROS ED Constitutional Constitutional ED: Reports chills; Denies fever(s) Eyes Eyes: Denies blurry vision or change in vision ENT ENT ED: Reports rhinorrhea; Denies sore throat Cardiovascular Cardiovascular: Reports palpitations and racing heartbeat; Denies chest pain Respiratory/Chest Respiratory/Chest: Reports cough and dyspnea Gastrointestinal Gastrointestinal: Reports nausea; Denies vomiting Genitourinary Genitourinary ED: Denies dysuria or hematuria Musculoskeletal Musculoskeletal: Denies back pain or neck pain Integumentary Denies abscess or rash Neurologic Neurologic: Reports headache(s); Denies weakness Allergic/Immunologic Allergic/Immunologic ED: Denies mouth swelling or urticaria EXAM Physical Exam Const Vital Signs: 06/16/21 08:29 06/16/21 09:38 Temperature 98.7 F Temperature Source Temporal Pulse Rate 92 Respiratory Rate 14 Respiratory Effort Short of Breath Respiratory Depth Normal Respiratory Pattern Normal Blood Pressure 193/87 H Blood Pressure Mean 122 Pulse Ox 99 Oxygen Delivery Method Room Air Room Air Positive well nourished, well developed and obese General Appearance ED: well developed Nutritional Appearance: obese HEENT Reports moist mucous membranes Neck supple and no JVD Resp normal respiratory effort and clear to auscultation bilaterally Auscultation: diminished lung sounds diffuse Cardio regular rate and regular rhythm GI non-tender and non-distended Auscultation: normoactive bowel sounds Palpation: soft Neuro oriented x3, CN's II-XII intact bilaterally and no sensory deficits noted Sensorium / Orientation: alert Motor Exam: strength 5/5 throughout Psych mental status grossly normal MDM MDM MDM Narrative Medical decision making narrative: Portable 1 view chest x-ray was obtained. On my interpretation, lung jacobsen are clear. There is normal cardiac silhouette. Bony thorax is normal. There is no acute process noted. Radiologist also interpreted the x-ray and noted some peribronchial cuffing that could be related to bronchitis or airway disease. CBC and comprehensive metabolic profile were obtained and were essentially within normal limits. There is a mild hyponatremia of 129 and hypochloremia of 96. Lactate was normal. COVID-19 rapid antigen was obtained and was negative. Since the patient's symptoms are consistent with COVID-19, a COVID-19 PCR was ordered for send out. Patient was advised of her findings. Patient was instructed to follow-up with her primary care physician in 3 to 5 days for her PCR results. Patient was instructed to quarantine until that time. Patient was instructed to return if worse in any way. Patient understood and was agreeable with the plan. All questions were answered. Lab Data Attestation: I reviewed the patient's lab results. Labs: Laboratory Results - last 24 hr 06/16/21 06/16/21 06/16/21 09:22 09:22 09:22 WBC 7.9 RBC 4.71 Hgb 14.3 Hct 41.0 MCV 87.0 MCH 30.4 MCHC 34.9 RDW Std Deviation 42.9 RDW Coeff of Yonathan 13.5 Plt Count 263 MPV 9.8 Immature Gran % (Auto) 0.400 Neut % (Auto) 75.6 H Lymph % (Auto) 14.1 L [place] % (Auto) 6.7 Eos % (Auto) 2.9 Baso % (Auto) 0.3 Absolute Neuts (auto) 6.0 Absolute Lymphs (auto) 1.12 Nucleated RBC % 0 Sodium 129 L Potassium 4.0 Chloride 96 L Carbon Dioxide 27.0 Anion Gap 6 BUN 13 Creatinine 1.14 H Estim Creat Clear Calc 47.02 Est GFR (MDRD) Af Amer 63 Est GFR (MDRD) Non-Af 52 L BUN/Creatinine Ratio 11.4 Glucose 97 Lactic Acid 0.9 Calcium 9.0 Total Bilirubin 0.40 AST 23 ALT 51 Alkaline Phosphatase 129 H Total Protein 7.4 Albumin 4.0 Globulin 3.4 Albumin/Globulin Ratio 1.2 Radiography Chest X-Ray - ED: 1 View, Read by ED Physician and Read by Radiologist Diagnostic Testing: Radiology Impression Chest X-Ray 06/16/21 08:57 IMPRESSION: Peribronchial cuffing and bilateral hilar prominence would recommend clinical correlation for bronchitis or airway disease. Electronically Signed: Ricky Bassett MD at 9:50 EDT Tel , Service support , Discharge Plan Triage Chief Complaint: Shortness of Breath ED Provider: Facundo Nolen Dx/Rx/DC Orders Clinical Impression: Viral URI Instructions: ED URI, Viral, No Abx (Adult) Prescriptions: No Action nitroglycerin 0.4 mg tablet, sublingual 0.4 mg SUBLINGUAL PRN PRN (Reason: CHEST PAIN) Qty: 20 RF: 0 losartan 100 mg tablet 50 mg PO DAILY RF: 0 montelukast [Singulair] 10 mg tablet 10 mg PO QHS Qty: 90 RF: 1 (DME) compr.stocking,thigh,reg,x-lrg Misc See Rx Instructions .ROUTE .MEDSUPPLY Qty: 2 RF: 0 lidocaine 5 % adhesive patch,medicated 1 patch topical DAILY Qty: 30 RF: 1 polyethylene glycol 3350 [Miralax] 17 gram/dose powder 17 g PO BID RF: 0 Spiriva Respimat 1.25 mcg/actuation mist 2 puff inhalation DAILY Qty: 4 RF: 3 albuterol sulfate 90 mcg/actuation HFA aerosol inhaler 2 puff inhalation Q4H PRN (Reason: shortness of breath or wheezing) Qty: 8.5 RF: 6 nicotine 21 mg/24 hr patch 24 hour 1 patch transdermal Q24H Qty: 28 RF: 1 (DME) Juxtalite See Rx Instructions .Route .MEDSUPPLY Qty: 2 RF: 3 oxcarbazepine 600 MG tablet 600 tab PO QHS RF: 0 hydroxyzine pamoate 50 MG capsule 50 mg PO Q6H PRN (Reason: Anxiety) RF: 0 trazodone 100 MG tablet 100 mg PO QHS RF: 0 aripiprazole 5 MG tablet 5 mg PO QHS RF: 0 ascorbic acid (vitamin C) [Vitamin C] 1,000 mg Tablet 1 g PO DAILY RF: 0 albuterol sulfate 90 mcg/actuation Hfa Aerosol Inhaler 1 inh INHALATION Q6H PRN (Reason: sob) RF: 0 spironolactone 25 mg tablet 25 mg PO QHS RF: 0 hydralazine 50 mg tablet 50 mg PO TID RF: 0 atorvastatin 40 mg Tablet 40 mg PO QHS Qty: 90 RF: 0 levothyroxine 50 mcg tablet 50 mcg PO DAILY Qty: 90 RF: 3 aspirin 81 mg tablet,delayed release (DR/EC) 81 mg PO DAILY@0800 Qty: 90 RF: 3 melatonin 10 mg capsule 10 mg PO QHS Qty: 90 RF: 3 loratadine 10 mg tablet 10 mg PO DAILY Qty: 90 RF: 1 nifedipine 60 mg tablet extended release 24hr 30 mg PO BID Qty: 90 RF: 3 budesonide-formoterol [Symbicort] 160-4.5 mcg/actuation HFA aerosol inhaler 2 puff INHALATION BID Qty: 10.2 RF: 3 fluticasone propionate 50 mcg/actuation spray,suspension 1 spray NASAL BID Qty: 16 RF: 1 furosemide 20 mg tablet 20 mg PO BID Qty: 60 RF: 1 guaifenesin 1,200 mg tablet extended release 12hr 600 mg PO BID Qty: 60 RF: 1 omeprazole 40 mg capsule,delayed release(DR/EC) 40 mg PO DAILY 30 Days Qty: 30 RF: 6 cholecalciferol (vitamin D3) 1,250 mcg (50,000 unit) capsule 50,000 unit PO FR Qty: 12 RF: 1 ondansetron 4 mg tablet,disintegrating 4 mg PO Q8H PRN (Reason: nausea and vomiting) Qty: 30 RF: 1 Primary Care Provider: Scarlet Navarro Referrals: Scarlet Navarro MD [Primary Care Provider] - 3-5 Days Disposition Disposition: Home, Self Care
[2021-06-16 09:38] VITALS: O2SAT 99
[2021-06-16 09:38] LABS: Absolute Lymphocyte Count 1.12 X10^3/uL (0.83-4.51); Basophil# 0.02 X10^3/uL; Basophil% 0.3 % (0-1); Eosinophil# 0.23 X10^3/uL; Eosinophils% 2.9 % (0-5); Hemoglobin 14.3 g/dL (12.0-15.0); Lymphocyte # 1.12 X10^3/ul (0.83-4.51); Lymphocyte % 14.1 % (19-41); Mean Corp Hgb Conc 34.9 g/dL (32-36); Mean Corpuscular Hgb 30.4 pg (27.0-32.0); Mean Platelet Vol. 9.8 fl (6.2-12.0); Monocyte# 0.53 X10^3/uL; Monocyte% 6.7 % (0-10); NRBC Flagged by Analyzer 0 % (0-5); Neutrophil # 6.01 X10^3/uL (2.7-7.7); Neutrophil % 75.6 % (47-70); Platelet Count 263 K/mm3 (150-450); RBC Distribution Width CV 13.5 % (11.6-14.6); RBC Distribution Width SD 42.9 fl (35.1-43.9); Red Blood Count 4.71 M/mm3 (4.2-5.4); White Blood Count 7.9 K/mm3 (4.4-11.0)
[2021-06-16 09:53] LABS: ALB/GLOB Ratio 1.2 RATIO (0.9-2.4); AST(SGOT) 23 U/L (15-37); Alanine Aminotransfer ALT/SGPT 51 U/L (13-56); Alkaline Phosphatase 129 U/L (45-117); Anion Gap 6 (5-15); BUN 13 mg/dL (7-18); BUN/Creat Ratio 11.4 RATIO (10-20); Chloride 96 mmol/L (98-107); Creatinine, Serum 1.14 mg/dL (0.55-1.02); EST Glomerular Filtration Rate 52 mL/min (>60); Est Glom Filt Rate - Afr Amer 63 mL/min (>60); Estimated Creatinine Clearance 47.02 ml/min; Globulin 3.4 g/dL (2.2-4.2); Glucose 97 mg/dL (74-106); Protein, Total 7.4 g/dL (6.4-8.2); Sodium Level 129 mmol/L (136-145)
[2021-06-16 10:02] LABS: Lactic Acid 0.9 mmol/L (0.4-1.9)
[2021-06-16 12:56] VITALS: BP 149/78; PULSE 83; RESP 22; O2SAT 96
--- NOTE | 2021-06-16 12:57 | ED.RN ---
THIS NURSE REVIEWED D/C INSTRUCTIONS WITH PT. PT VERBALIZED UNDERSTANDING OF INSTRUCTIONS. IV D/C. IV CATHETER INTACT. PT TOLERATED WELL. PT DENIES FURTHER NEEDS OR QUESTIONS AT THIS TIME. PT AMBULATES FROM ROOM ON OWN WITHOUT ASSISTANCE FROM STAFF
== END 2021-06-16 13:13 | disposition home or self-care (01) ==
PROVIDERS: Emergency Provider Emergency Medicine; PCP Internal Medicine
DX: J06.9 Acute upper respiratory infection, unspecified (principal); E87.8 Other disorders of electrolyte and fluid balance, not elsewhere classified; E87.1 Hypo-osmolality and hyponatremia; E66.9 Obesity, unspecified; Z68.42 Body mass index [BMI] 45.0-49.9, adult; E03.9 Hypothyroidism, unspecified; E78.00 Pure hypercholesterolemia, unspecified; E78.5 Hyperlipidemia, unspecified; F20.9 Schizophrenia, unspecified; F31.9 Bipolar disorder, unspecified; I13.0 Hypertensive heart and chronic kidney disease with heart failure and stage 1 through stage 4 chronic kidney disease, or unspecified chronic kidney disease; N18.9 Chronic kidney disease, unspecified; I50.9 Heart failure, unspecified; I35.1 Nonrheumatic aortic (valve) insufficiency; I34.0 Nonrheumatic mitral (valve) insufficiency; I48.0 Paroxysmal atrial fibrillation; I73.9 Peripheral vascular disease, unspecified; I87.2 Venous insufficiency (chronic) (peripheral); J44.9 Chronic obstructive pulmonary disease, unspecified; K21.9 Gastro-esophageal reflux disease without esophagitis; K58.9 Irritable bowel syndrome, unspecified; M16.11 Unilateral primary osteoarthritis, right hip; G47.33 Obstructive sleep apnea (adult) (pediatric); G43.909 Migraine, unspecified, not intractable, without status migrainosus; Z78.0 Asymptomatic menopausal state; Z86.711 Personal history of pulmonary embolism; Z87.19 Personal history of other diseases of the digestive system; Z79.82 Long term (current) use of aspirin; Z79.899 Other long term (current) drug therapy; F17.210 Nicotine dependence, cigarettes, uncomplicated
CPT/HCPCS: 71045; 80053; 83605; 85025; 87040; 87426; 87635; 94640; 99284; U0005; A4216; U0003

== ENCOUNTER → 2021-07-06 12:18 | Outpatient (CLI) | payer MEDICAID, SELFPAY ==
--- NOTE | 2021-07-06 12:38 | RAD_ITS ---
STUDY: X-RAY CHEST REASON FOR EXAM: Female, 56 years old. Cough TECHNIQUE: PA and lateral views of the chest. COMPARISON: Comparison is made with prior study dated 06/16/2021. FINDINGS: Scattered calcified granulomas. No acute infiltrate is seen. There is no demonstrated pleural abnormality. There is moderate cardiac enlargement. Normal mediastinum and rosita. Normal visualized pulmonary arteries. Normal visualized aortic arch and descending thoracic aorta. There are degenerative changes of the visualized thoracic spine. Normal visualized ribs, clavicles, and shoulders. There is no demonstrated abnormality of the visualized soft tissue structures of the upper abdomen. RAD/Chest PA and Lateral IMPRESSION: Cardiomegaly. Scattered calcified granulomas. Electronically Signed: Patrick Keita MD at 15:47 EDT , Service support ,
--- NOTE | 2021-07-06 12:40 | RAD_ITS ---
STUDY: X-RAY - LEFT FOOT CLINICAL: Female, 56 years old. b/l foot pain sp fall TECHNIQUE: 3 view(s) of the foot. COMPARISON: Comparison is made with prior study dated 06/20/2018. FINDINGS: There is a plantar calcaneal spur. With again, the patient is status post plate and screw transfixation'' s of the tarsometatarsal joints of the first second and third metatarsal joints. This is unchanged. Normal metatarsi. There is degenerative arthrosis of the metatarsophalangeal joint of the hallux with a hallux valgus deformity. Normal tibial and fibular sesamoid bones. Normal interphalangeal joint of the great toe. Normal phalanges of the great toe. Normal second through fifth metatarsophalangeal joints. Normal interphalangeal joints and phalanges of the lesser toes. Soft tissue swelling. RAD/Foot min 3 Views IMPRESSION: Status post fixation at the first second and third tarsometatarsal joints with screw and plate fixation device. There has been no change. Soft tissue swelling. Electronically Signed: Patrick Keita MD at 8:23 EDT , Service support ,
--- NOTE | 2021-07-06 12:40 | RAD_ITS ---
STUDY: X-RAY - RIGHT FOOT CLINICAL: Female, 56 years old. Bilateral foot pain. TECHNIQUE: 3 view(s) of the foot. COMPARISON: None. FINDINGS: There is a plantar calcaneal spur. Normal talus and tarsal bones. Normal visualized subtalar, talonavicular, calcaneocuboid, tarsal and tarsometatarsal articulations. Normal metatarsi. Normal metatarsophalangeal joint of the great toe. Normal tibial and fibular sesamoid bones. Normal interphalangeal joint of the great toe. Normal phalanges of the great toe. Normal second through fifth metatarsophalangeal joints. Normal interphalangeal joints and phalanges of the lesser toes. There is soft tissue swelling over the dorsum of the mid and forefoot. RAD/Foot min 3 Views IMPRESSION: Soft tissue swelling without underlying osseous or articular abnormality. Electronically Signed: Crow Vyas DO at 16:52 EDT Tel [phone], Service support ,
== END ==
PROVIDERS: PCP Internal Medicine; Referring Provider Nurse Practitioner Family; Visit Provider Nurse Practitioner Family
DX: R05 Cough (principal); M79.671 Pain in right foot; M79.672 Pain in left foot
CPT/HCPCS: 71046; 73630

== ENCOUNTER → 2021-07-27 10:59 | Outpatient (CLI) | payer MEDICAID, SELFPAY ==
[2021-07-27 12:17] LABS: Absolute Lymphocyte Count 1.09 X10^3/uL (0.83-4.51); Basophil# 0.02 X10^3/uL; Basophil% 0.2 % (0-1); Eosinophil# 0.26 X10^3/uL; Eosinophils% 2.6 % (0-5); Hematocrit 44.2 % (37-47); Hemoglobin 15.5 g/dL (12.0-15.0); Lymphocyte # 1.09 X10^3/ul (0.83-4.51); Lymphocyte % 10.8 % (19-41); Mean Corp Hgb Conc 35.1 g/dL (32-36); Mean Corpuscular Volume 88.4 fL (81-99); Mean Platelet Vol. 10.6 fl (6.2-12.0); Monocyte# 0.62 X10^3/uL; Monocyte% 6.2 % (0-10); NRBC Flagged by Analyzer 0 % (0-5); Neutrophil # 8.03 X10^3/uL (2.7-7.7); Neutrophil % 79.7 % (47-70); Platelet Count 254 K/mm3 (150-450); RBC Distribution Width CV 14.4 % (11.6-14.6); RBC Distribution Width SD 46.5 fl (35.1-43.9); White Blood Count 10.1 K/mm3 (4.4-11.0)
[2021-07-27 12:29] LABS: Amylase 35 U/L (25-115); Anion Gap 8 (5-15); BUN 11 mg/dL (7-18); BUN/Creat Ratio 9.8 RATIO (10-20); Calcium,Total 9.4 mg/dL (8.5-10.1); Chloride 98 mmol/L (98-107); Creatinine, Serum 1.12 mg/dL (0.55-1.02); EST Glomerular Filtration Rate 53 mL/min (>60); Est Glom Filt Rate - Afr Amer 64 mL/min (>60); Glucose 120 mg/dL (74-106); Lipase 61 U/L (73-393); Potassium 4.2 mmol/L (3.5-5.1); Sodium Level 129 mmol/L (136-145)
== END ==
PROVIDERS: PCP Internal Medicine; Referring Provider Nurse Practitioner Family; Visit Provider Nurse Practitioner Family
DX: R10.9 Unspecified abdominal pain (principal); R11.2 Nausea with vomiting, unspecified
CPT/HCPCS: 36415; 80048; 82150; 83690; 85025

== ENCOUNTER → 2021-07-29 | Outpatient (CLI) | payer MEDICAID, SELFPAY | END | disposition home or self-care (01) | LOC: LABSPEC 15:05 | PROVIDERS: PCP Internal Medicine; Referring Provider Nurse Practitioner Family; Visit Provider Nurse Practitioner Family | DX: R11.2 Nausea with vomiting, unspecified (principal); R10.9 Unspecified abdominal pain | CPT/HCPCS: 87493; 87506 ==

== ENCOUNTER 2021-08-16 14:19 | Emergency (ER) | payer MEDICAID, SELFPAY ==
[2021-08-16 14:20] VITALS: BP 155/61; PULSE 93; RESP 16; TEMP 36.4; O2SAT 98; BMI 48.5
== END 2021-08-16 15:15 | disposition left against medical advice (07) ==
LOC: ED 15:24
PROVIDERS: PCP Internal Medicine
DX: Z53.21 Procedure and treatment not carried out due to patient leaving prior to being seen by health care provider (principal)

== ENCOUNTER → 2021-08-23 | Outpatient (CLI) | payer MEDICAID, SELFPAY ==
[2021-08-23 11:38] LABS: Mucous, Urine 0 SEEN /hpf (<or=2+); Red Blood Cells-Urine 0 SEEN /hpf (0-5)
[2021-08-23 12:18] LABS: Color, Urine Yellow (Yellow); Glucose, Dipstick Normal (Normal); Ketone-Dipstick Negative (Negative); Leukocyte Esterase-Dipstick 100 /ul (Negative); Nitrite-Dipstick Negative (Negative); Occult Blood-Urine Negative /ul (Negative); Protein-Dipstick Negative (Negative); Specific Gravity, Urine 1.015 (1.002-1.030); Urine Bilirubin Dipstick Negative (Negative); Urine Clarity Clear (Clear); Urine Urobilinogen Normal (Normal)
[2021-08-23 12:25] LABS: Bacteria RARE /hpf (None Seen); Squamous Epithelial Cells - UA 0-5 SEEN /hpf (5-10); White Blood Cells 5-10 SEEN /hpf (0-5)
== END | disposition home or self-care (01) ==
LOC: LABSPEC 11:36
PROVIDERS: PCP Internal Medicine; Referring Provider Nurse Practitioner Family; Visit Provider Nurse Practitioner Family
DX: R30.0 Dysuria (principal)
CPT/HCPCS: 81001; 87077; 87086; 87088; 87186

== ENCOUNTER 2021-09-01 09:09 | Emergency (ER) | payer MEDICAID, SELFPAY ==
[2021-09-01] VITALS (8 sets, daily range): BP systolic 118–160; BP diastolic 45–97; PULSE 90–101; RESP 11–23; TEMP 36.7–36.9; O2SAT 95–98; BMI 47.3
--- NOTE | 2021-09-01 09:27 | EKG12_ITS ---
Test Reason : FATIGUE Blood Pressure : / mmHG Vent. Rate : 091 BPM Atrial Rate : 091 BPM P-R Int : 174 ms QRS Dur : 080 ms QT Int : 356 ms P-R-T Axes : 033 -31 010 degrees QTc Int : 437 ms Normal sinus rhythm Left axis deviation Abnormal ECG Confirmed by MILO SPEARS, MELLISSA ([id number]), desk editor ANAND HSIEH ([id number]) on 09/02/2021 1:56:46 P M Referred By: ALEKSEY Confirmed By:MADHAVI PEDRAZA MD
--- NOTE | 2021-09-01 09:29 | EX.ED.DYSGE1 ---
HPI History of Present Illness Chief Complaint: Fatigue Informant: patient Narrative Narrative: Patient is a 56-year-old female recently diagnosed with urinary tract infection with positive culture for E. coli, currently on Keflex, presenting with increased fatigue, flank pain, malaise and nausea. Patient states over the past 3 days she is felt like she is getting worse. She believes her symptoms first started on 17 August. She saw primary care practice on 08/23 where urinalysis and culture was taken. Also notes that whenever she eats she gets pain in her lower abdomen. She feels that she is short of breath and cannot take a deep breath. She coughs whenever she sits up. She states she does not get fevers but she feels very hot. She denies any history of kidney stones. She notes that she has missed a couple doses of her Keflex because she just wants to sleep all day. She is also prescribed tramadol for her pain. [facility] Medical History Abdominal pain Allergic rhinitis Aortic valve insufficiency Arthralgia of right hip Arthritis Asthma Back pain Bilateral flank pain Bilateral foot pain Bipolar 1 disorder Bipolar disorder Blackout Bladder disease Cancer Cardiology follow-up encounter Chest pain Chest pain CKD (chronic kidney disease) Conversion disorder Conversion disorder with abnormal movement Convulsion, non-epileptic COPD (chronic obstructive pulmonary disease) COPD, mild CPAP (continuous positive airway pressure) dependence Cyst Depression Dietary restriction Difficulty chewing Dysuria Easy bruising Enlarged aorta Excessive bleeding Gastric reflux Gastritis GERD (gastroesophageal reflux disease) GERD (gastroesophageal reflux disease) Heart failure High cholesterol Hip dislocation, right History of abnormal cervical Pap smear History of CHF (congestive heart failure) History of echocardiogram History of edema History of hiatal hernia History of IBS History of stress test History of ulceration HLD (hyperlipidemia) HTN (hypertension) Hx of tilt table evaluation Hypertensive crisis without congestive heart failure Hypokalemia Hyponatremia Hyponatremia Hypothyroidism Injury of head and neck Intertriginous dermatitis associated with moisture Left arm swelling Leg cramps Marijuana use Migraine Migraines Nausea and vomiting Non-convulsive status epilepticus Non-rheumatic mitral regurgitation Nonrheumatic aortic (valve) insufficiency Open wound Oral candidiasis Orthostatic hypotension DAPHNE (obstructive sleep apnea) Osteoarthritis Osteoarthritis of right hip PAF (paroxysmal atrial fibrillation) Peripheral artery disease Post-menopausal Psychosis Pulmonary embolism Right hip pain Schizo NEC, chrn/exacerb Schizophrenia Seizures Shortness of breath on exertion Smoker Stroke Syncope Thyroid disease Tobacco abuse Venous insufficiency of both lower extremities Walker as ambulation aid Wears dentures Home Medications oxcarbazepine 600 tab PO QHS 09/06/19 [History Last Taken 12/19/20] nitroglycerin 0.4 mg sublingual tablet 0.4 mg SUBLINGUAL PRN PRN #20 tab 09/10/20 [Rx Last Taken 12/17/20] aripiprazole 5 mg PO QHS 10/31/20 [History Last Taken 12/19/20] trazodone 100 mg tablet 100 mg PO QHS 10/31/20 [History Last Taken 12/19/20] levothyroxine 50 mcg tablet 50 mcg PO DAILY #90 tab 01/03/21 [Rx Last Taken Unknown] aspirin 81 mg tablet,delayed release 81 mg PO DAILY@0800 #90 tablet 01/19/21 [Rx Last Taken Unknown] melatonin 10 mg capsule 10 mg PO QHS #90 cap 01/19/21 [Rx Last Taken Unknown] ascorbic acid (vitamin C) [Vitamin C] 1 g PO DAILY 02/08/21 [History Last Taken Unknown] compr.stocking,thigh,reg,x-lrg #2 ea 03/09/21 [Rx Last Taken Unknown] lidocaine 5 % topical patch 1 patch TOPICAL DAILY #30 ea 03/09/21 [Rx Last Taken Unknown] montelukast 10 mg tablet 10 mg PO QHS #90 tab 03/09/21 [Rx Last Taken Unknown] polyethylene glycol 3350 17 gram/dose oral powder 17 g PO BID 04/07/21 [History Last Taken Unknown] nifedipine 60 mg tablet,extended release 24 hr 30 mg PO BID #90 tab 04/08/21 [Rx Last Taken Unknown] furosemide 20 mg tablet 20 mg PO BID #60 tab 05/02/21 [Rx Last Taken Unknown] albuterol sulfate 1 inh INHALATION Q6H PRN 05/06/21 [History Last Taken Unknown] omeprazole 40 mg capsule,delayed release 40 mg PO DAILY 30 Days #30 cap 05/16/21 [Rx Last Taken Unknown] hydralazine 50 mg PO TID 05/23/21 [History Last Taken Unknown] spironolactone 25 mg PO QHS 05/23/21 [History Last Taken Unknown] albuterol sulfate 90 mcg/actuation aerosol inhaler 2 puff INHALATION Q4H PRN #8.5 g 05/31/21 [Rx Last Taken Unknown] tiotropium bromide 1.25 mcg/actuation mist for inhalation 2 puff INHALATION DAILY #4 g 05/31/21 [Rx Last Taken Unknown] cholecalciferol (vitamin D3) 1,250 mcg (50,000 unit) capsule 50,000 unit PO FR #12 cap 06/02/21 [Rx Last Taken Unknown] Juxtalite #2 ea 06/08/21 [Rx Last Taken Unknown] nicotine 21 mg/24 hr daily transdermal patch 1 patch TRANSDERMAL Q24H #28 ea 06/08/21 [Rx Last Taken Unknown] compress.stocking,knee,reg,lrg #2 ea 06/27/21 [Rx Last Taken Unknown] prednisone 10 mg tablet See Rx Instructions PO QDAY #30 tab 07/06/21 [Rx Last Taken Unknown] azelastine 205.5 mcg (0.15 %) nasal spray 1 spray INTRANASAL BID #30 ml 07/11/21 [Rx Last Taken Unknown] losartan 100 mg tablet 100 mg PO DAILY #90 tab 07/15/21 [Rx Last Taken Unknown] guaifenesin 1,200 mg tablet, extended release 12 hr 600 mg PO BID #60 tab 07/27/21 [Rx Last Taken Unknown] ondansetron 4 mg disintegrating tablet 4 mg PO Q8H PRN #30 tab 07/27/21 [Rx Last Taken Unknown] atorvastatin 40 mg tablet 40 mg PO QHS #90 tab 08/01/21 [Rx Last Taken Unknown] ondansetron 4 mg disintegrating tablet 4 - 8 mg PO Q8H PRN #60 tab 08/23/21 [Rx Last Taken Unknown] budesonide-formoterol HFA 160 mcg-4.5 mcg/actuation aerosol inhaler 2 puff INHALATION BID #10.2 g 08/25/21 [Rx Last Taken Unknown] cephalexin 500 mg capsule 500 mg PO Q8H #21 cap 08/25/21 [Rx Last Taken Unknown] fluticasone propionate 50 mcg/actuation nasal spray,suspension 1 spray NASAL BID #16 g 08/25/21 [Rx Last Taken Unknown] loratadine 10 mg tablet 10 mg PO DAILY #90 tab 08/25/21 [Rx Last Taken Unknown] tramadol 50 mg tablet 50 mg PO Q12H PRN #14 tab 08/25/21 [Rx Last Taken Unknown] ondansetron 4 mg PO Q8H PRN #14 tab 09/01/21 [Rx Last Taken Unknown] Allergy/AdvReac Type Severity Reaction Status Date / Time adhesive tape Allergy Rash Verified 08/23/21 10:23 atropine sulfate Allergy Hives Verified 08/23/21 10:23 [From ] codeine phosphate Allergy breathing Verified 08/23/21 10:23 [From Tylenol-Codeine #3] problems divalproex sodium Allergy Unknown Verified 08/23/21 10:23 [From Depakote] hydromorphone HCl Allergy facial Verified 08/23/21 10:23 [From Dilaudid] blisters,itching hyoscyamine sulfate Allergy Hives Verified 08/23/21 10:23 [From ] Iodinated Contrast Media Allergy breathing Verified 08/23/21 10:23 [Iodinated Contrast Media - problems IV Dye] and my bp went up latex Allergy Rash Verified 08/23/21 10:23 pantoprazole sodium Allergy Rash Verified 08/23/21 10:23 [From Protonix] phenobarbital [From ] Allergy Hives Verified 08/23/21 10:23 promethazine HCl Allergy Anaphylaxis Verified 08/23/21 10:23 [From Phenergan] ramipril Allergy Unknown Verified 08/23/21 10:23 scopolamine hydrobromide Allergy Hives Verified 08/23/21 10:23 [From ] tramadol Allergy Itching Verified 09/01/21 09:17 ziprasidone mesylate Allergy Unknown Verified 08/23/21 10:23 [From Geodon] Sulfa (Sulfonamide AdvReac Vomiting Verified 08/23/21 10:23 Antibiotics) ziprasidone HCl [From Geodon] AdvReac tremors Verified 08/23/21 10:23 VIDODIN TUSS Allergy Itching Uncoded 08/23/21 10:23 Amlodipine AdvReac Vomiting Uncoded 08/23/21 10:23 Family History Sister Myocardial infarction Colon cancer Mother Hypertension Arthritis Brain aneurysm Sister Colon cancer Surgical History bladder sling History of uterine suspension procedure Hx of cholecystectomy left foot S/P carpal tunnel release Social History household members: none number of children: 4 current occupational status: unemployed history of recent travel: No Smoking Status: Current every day smoker tobacco type: cigarettes Tobacco: How many years used: 26 alcohol intake: never substance use type: does not use caffeine: Yes Type: coffee what type of physical activity do you participate in: none seatbelt use: never do you feel safe at home: Yes additional social history: single ROS ROS ED Constitutional Constitutional ED: Reports chills and sweats; Denies fever(s) Eyes Eyes: Denies change in vision ENT ENT ED: Denies ear pain or sore throat Cardiovascular Cardiovascular: Reports chest pain; Denies palpitations Respiratory/Chest Respiratory/Chest: Reports cough and dyspnea Gastrointestinal Gastrointestinal: Reports abdominal pain and nausea; Denies constipation or diarrhea Genitourinary Genitourinary ED: Reports dysuria and other Details: Cloudy urine Musculoskeletal Musculoskeletal: Reports back pain; Denies myalgias Integumentary Denies rash Neurologic Neurologic: Reports weakness EXAM Physical Exam Const Vital Signs: 09/01/21 09:10 09/01/21 09:14 09/01/21 09:45 Temperature 98.4 F 98.4 F Temperature Source Oral Oral Pulse Rate 101 H 100 93 Respiratory Rate 13 11 L 20 H Blood Pressure 160/93 H 138/93 H Blood Pressure Mean 115 108 Pulse Ox 98 97 Oxygen Delivery Method Room Air 09/01/21 09:49 09/01/21 09:51 09/01/21 10:28 Temperature 98.0 F Temperature Source Oral Pulse Rate 99 94 Respiratory Rate 23 H 15 Blood Pressure 118/45 L 152/97 H Blood Pressure Mean 69 115 Pulse Ox 96 95 96 Oxygen Delivery Method Room Air Room Air Room Air 09/01/21 11:02 09/01/21 13:24 Temperature Temperature Source Pulse Rate 90 Respiratory Rate 13 16 Blood Pressure Blood Pressure Mean Pulse Ox 98 98 Oxygen Delivery Method Room Air Positive well nourished and obese Nutritional Appearance: obese HEENT Reports moist mucous membranes Negative for trauma Eyes PERRL and EOMs intact bilaterally Neck supple Neck Narrative: Normal range of motion Chest Wall inspection of chest normal Resp normal respiratory effort Resp Narrative: Few scattered wheezes. Auscultation: diminished lung sounds Cardio regular rhythm and no murmurs Rate: tachycardic GI non-distended Auscultation: normoactive bowel sounds Palpation: soft and tender suprapubic; Negative for guarding Back/Spine General Back: CVA tenderness right Extremity Extremity Narrative: Nonpitting General Extremety ED: Yes edema; Negative for tenderness General Extremity: edema Neuro oriented x3 Sensorium / Orientation: alert Motor Exam: general weakness Psych mental status grossly normal Mood & Affect: anxious Skin no rashes or lesions noted and no wounds MDM MDM MDM Narrative Medical decision making narrative: Patient evaluated for multiple complaints including flank pain, cloudy urine, nausea, vomiting and generalized malaise. Patient appears nontoxic but uncomfortable. Vital signs are significant for mild tachycardia. They are otherwise normal. She is hemodynamically stable in the ER. She was recently treated with a course of Keflex and is currently finishing up. She currently does not have a leukocytosis and her urinalysis is not consistent with infection. Culture reviewed which shows that she was on appropriate antibiotic for her infection. Creatinine is near her baseline but mildly elevated. She does have a mildly elevated hemoglobin is possible she is slightly hemoconcentrated. She is given a liter of IV fluids in the emergency room. Given her negative work-up I did order a CT without contrast of her abdomen to make sure were not missing a kidney stone. This was negative. On reevaluation patient is feeling better but she continues to be nauseous. She has a history of anaphylaxis to Phenergan so I do not feel comfortable giving her nausea medicines besides Zofran. She is given a second dose of Zofran and then a GI cocktail. I suspect majority of her symptoms are actually associated with acid reflux as she states that she has been belching a lot and is now complain of pain in her epigastric region. She is instructed to increase her antacid to twice a day and will be given a new prescription of Zofran. Patient is referred to GI for further evaluation. Patient is agreeable with this plan of care. She is discharged home in improved and stable condition. She ambulates easily out of the emergency room. Lab Data Attestation: I reviewed the patient's lab results. Labs: Laboratory Results - last 24 hr 09/01/21 09/01/21 09/01/21 09:20 09:20 09:20 WBC 9.3 RBC 5.63 H Hgb 17.2 H Hct 48.9 H MCV 86.9 MCH 30.6 MCHC 35.2 RDW Std Deviation 42.4 RDW Coeff of Yonathan 13.4 Plt Count 327 MPV 9.9 Immature Gran % (Auto) 0.300 Neut % (Auto) 74.8 H Lymph % (Auto) 13.9 L Rock % (Auto) 8.0 Eos % (Auto) 2.6 Baso % (Auto) 0.4 Absolute Neuts (auto) 7.0 Absolute Lymphs (auto) 1.29 Nucleated RBC % 0 PT INR APTT Sodium 135 L Potassium 3.6 Chloride 104 Carbon Dioxide 23.0 Anion Gap 8 BUN 13 Creatinine 1.30 H Estim Creat Clear Calc 41.23 Est GFR (MDRD) Af Amer 54 L Est GFR (MDRD) Non-Af 45 L BUN/Creatinine Ratio 10.0 Glucose 114 H Lactic Acid 1.6 Calcium 9.4 Total Bilirubin 0.40 AST 23 ALT 50 Alkaline Phosphatase 150 H Total Creatine Kinase 112 Troponin I High Sens 10 Total Protein 7.8 Albumin 4.1 Globulin 3.7 Albumin/Globulin Ratio 1.1 Urine Color Urine Clarity Urine pH Ur Specific Bath Urine Protein Urine Glucose (UA) Urine Ketones Urine Occult Blood Urine Nitrite Urine Bilirubin Urine Urobilinogen Ur Leukocyte Esterase Urine RBC Urine WBC Ur Squamous Epith Cells Urine Bacteria Urine Mucus 09/01/21 09/01/21 09:50 10:30 WBC RBC Hgb Hct MCV MCH MCHC RDW Std Deviation RDW Coeff of Yonathan Plt Count MPV Immature Gran % (Auto) Neut % (Auto) Lymph % (Auto) Rock % (Auto) Eos % (Auto) Baso % (Auto) Absolute Neuts (auto) Absolute Lymphs (auto) Nucleated RBC % PT 12.2 INR 1.0 APTT 22.8 L Sodium Potassium Chloride Carbon Dioxide Anion Gap BUN Creatinine Estim Creat Clear Calc Est GFR (MDRD) Af Amer Est GFR (MDRD) Non-Af BUN/Creatinine Ratio Glucose Lactic Acid Calcium Total Bilirubin AST ALT Alkaline Phosphatase Total Creatine Kinase Troponin I High Sens Total Protein Albumin Globulin Albumin/Globulin Ratio Urine Color Yellow Urine Clarity Clear Urine pH 6.0 Ur Specific Bath 1.015 Urine Protein Negative Urine Glucose (UA) Normal Urine Ketones Negative Urine Occult Blood Negative Urine Nitrite Negative Urine Bilirubin Negative Urine Urobilinogen Normal Ur Leukocyte Esterase Negative Urine RBC 0 SEEN Urine WBC 0 SEEN Ur Squamous Epith Cells 0-5 SEEN Urine Bacteria 0 SEEN Urine Mucus 0 SEEN Radiography Chest X-Ray - ED: 1 View, Read by ED Physician, Read by Radiologist, No Acute Disease and Cardiomegaly Diagnostic Testing: Clinical Impression(s) from Imaging Studies Chest X-Ray 09/01/21 10:08 IMPRESSION: Cardiomegaly. Electronically Signed: Patrick Keita MD at 10:25 EST , Service support , Abdomen/Pelvis CT 09/01/21 10:48 IMPRESSION: No acute abnormality is seen. Electronically Signed: Patrick Keita MD at 11:36 EST , Service support , Rhythm Strip Rhythm Strip: Sinus Rhythm Rate: 91 Ectopy: None EKG Initial EKG: Attestation: I personally reviewed and interpreted this EKG as follows: Interpretation: Sinus Rhythm Comments: Normal sinus rhythm rate of 91 Left axis deviation Normal intervals Normal ST segments T wave flattening in V5 and V6 Compared to prior EKG on 05/23/2021 patient now has a left axis Discharge Plan Triage Chief Complaint: Fatigue Other Complaint: Nausea/Vomiting ED Provider: Tiffanie Jackson Dx/Rx/DC Orders Clinical Impression: Abdominal pain of unknown cause, GERD (gastroesophageal reflux disease), Nausea & vomiting, Fatigue Instructions: ED Abdominal Pain Unkn Cause Fem, ED GERD (Adult), ED Vomiting (Adult) Prescriptions: New ondansetron 4 mg tablet,disintegrating 4 mg PO Q8H PRN (Reason: nausea and vomiting) Qty: 14 RF: 0 No Action nitroglycerin 0.4 mg tablet, sublingual 0.4 mg SUBLINGUAL PRN PRN (Reason: CHEST PAIN) Qty: 20 RF: 0 montelukast [Singulair] 10 mg tablet 10 mg PO QHS Qty: 90 RF: 1 (DME) compr.stocking,thigh,reg,x-lrg Misc See Rx Instructions .ROUTE .MEDSUPPLY Qty: 2 RF: 0 lidocaine 5 % adhesive patch,medicated 1 patch topical DAILY Qty: 30 RF: 1 polyethylene glycol 3350 [Miralax] 17 gram/dose powder 17 g PO BID RF: 0 Spiriva Respimat 1.25 mcg/actuation mist 2 puff inhalation DAILY Qty: 4 RF: 3 albuterol sulfate 90 mcg/actuation HFA aerosol inhaler 2 puff inhalation Q4H PRN (Reason: shortness of breath or wheezing) Qty: 8.5 RF: 6 nicotine 21 mg/24 hr patch 24 hour 1 patch transdermal Q24H Qty: 28 RF: 1 (DME) Juxtalite See Rx Instructions .Route .MEDSUPPLY Qty: 2 RF: 3 azelastine 205.5 mcg (0.15 %) spray,non-aerosol 1 spray intranasal BID Qty: 30 RF: 11 prednisone 10 mg tablet See Rx Instructions PO QDAY Qty: 30 RF: 0 ondansetron 4 mg tablet,disintegrating 4 mg PO Q8H PRN (Reason: nausea and vomiting) Qty: 30 RF: 0 guaifenesin 1,200 mg tablet extended release 12hr 600 mg PO BID Qty: 60 RF: 1 ondansetron 4 mg tablet,disintegrating 4 - 8 mg PO Q8H PRN (Reason: nausea and vomiting) Qty: 60 RF: 1 oxcarbazepine 600 MG tablet 600 tab PO QHS RF: 0 trazodone 100 MG tablet 100 mg PO QHS RF: 0 Hold Instructions: Order Changed aripiprazole 5 MG tablet 5 mg PO QHS RF: 0 ascorbic acid (vitamin C) [Vitamin C] 1,000 mg Tablet 1 g PO DAILY RF: 0 albuterol sulfate 90 mcg/actuation Hfa Aerosol Inhaler 1 inh INHALATION Q6H PRN (Reason: sob) RF: 0 spironolactone 25 mg tablet 25 mg PO QHS RF: 0 hydralazine 50 mg tablet 50 mg PO TID RF: 0 levothyroxine 50 mcg tablet 50 mcg PO DAILY Qty: 90 RF: 3 aspirin 81 mg tablet,delayed release (DR/EC) 81 mg PO DAILY@0800 Qty: 90 RF: 3 melatonin 10 mg capsule 10 mg PO QHS Qty: 90 RF: 3 nifedipine 60 mg tablet extended release 24hr 30 mg PO BID Qty: 90 RF: 3 furosemide 20 mg tablet 20 mg PO BID Qty: 60 RF: 1 omeprazole 40 mg capsule,delayed release(DR/EC) 40 mg PO DAILY 30 Days Qty: 30 RF: 6 cholecalciferol (vitamin D3) 1,250 mcg (50,000 unit) capsule 50,000 unit PO FR Qty: 12 RF: 1 (DME) compress.stocking,knee,reg,lrg Misc See Rx Instructions .MEDSUPPLY Qty: 2 RF: 1 losartan 100 mg tablet 100 mg PO DAILY Qty: 90 RF: 1 atorvastatin 40 mg tablet 40 mg PO QHS Qty: 90 RF: 1 tramadol 50 mg tablet 50 mg PO Q12H PRN (Reason: pain) Qty: 14 RF: 0 cephalexin 500 mg capsule 500 mg PO Q8H Qty: 21 RF: 0 budesonide-formoterol [Symbicort] 160-4.5 mcg/actuation HFA aerosol inhaler 2 puff INHALATION BID Qty: 10.2 RF: 3 fluticasone propionate 50 mcg/actuation spray,suspension 1 spray NASAL BID Qty: 16 RF: 1 loratadine 10 mg tablet 10 mg PO DAILY Qty: 90 RF: 1 Primary Care Provider: Scarlet Navarro Referrals: Scarlet Navarro MD [Primary Care Provider] - Sumeet Irving DO [STAFF PHYSICIAN] - Activity Restrictions/Additional Instructions: Increase your antacid to twice a day. Follow-up with your primary care doctor. I have referred you to a GI doctor. PLease call to schedule an appointment Disposition Disposition: Home, Self Care Discharge Date/Time: 09/01/21 13:55
[2021-09-01] MEDS: Ondansetron 4 MG/2 ML Vial IV ×2 (09:41→12:58)
[2021-09-01] MEDS: Ipratropium/Albuterol Sulfate 3 ML AMPUL.NEB INHALATION (09:47)
[2021-09-01 09:50] LABS: Absolute Lymphocyte Count 1.29 X10^3/uL (0.83-4.51); Basophil# 0.04 X10^3/uL; Basophil% 0.4 % (0-1); Eosinophil# 0.24 X10^3/uL; Eosinophils% 2.6 % (0-5); Hematocrit 48.9 % (37-47); Hemoglobin 17.2 g/dL (12.0-15.0); Lymphocyte # 1.29 X10^3/ul (0.83-4.51); Lymphocyte % 13.9 % (19-41); Mean Corp Hgb Conc 35.2 g/dL (32-36); Mean Corpuscular Hgb 30.6 pg (27.0-32.0); Mean Corpuscular Volume 86.9 fL (81-99); Mean Platelet Vol. 9.9 fl (6.2-12.0); Monocyte# 0.74 X10^3/uL; NRBC Flagged by Analyzer 0 % (0-5); Neutrophil # 6.96 X10^3/uL (2.7-7.7); Neutrophil % 74.8 % (47-70); Platelet Count 327 K/mm3 (150-450); RBC Distribution Width CV 13.4 % (11.6-14.6); RBC Distribution Width SD 42.4 fl (35.1-43.9); Red Blood Count 5.63 M/mm3 (4.2-5.4); White Blood Count 9.3 K/mm3 (4.4-11.0)
[2021-09-01 10:05] LABS: ALB/GLOB Ratio 1.1 RATIO (0.9-2.4); AST(SGOT) 23 U/L (15-37); Alanine Aminotransfer ALT/SGPT 50 U/L (13-56); Albumin, Serum 4.1 g/dL (3.2-5.0); Alkaline Phosphatase 150 U/L (45-117); Anion Gap 8 (5-15); BUN 13 mg/dL (7-18); CPK Total, Creatine Kinase 112 U/L (26-192); Calcium,Total 9.4 mg/dL (8.5-10.1); Chloride 104 mmol/L (98-107); EST Glomerular Filtration Rate 45 mL/min (>60); Est Glom Filt Rate - Afr Amer 54 mL/min (>60); Estimated Creatinine Clearance 41.23 ml/min; Globulin 3.7 g/dL (2.2-4.2); Glucose 114 mg/dL (74-106); Potassium 3.6 mmol/L (3.5-5.1); Protein, Total 7.8 g/dL (6.4-8.2); Sodium Level 135 mmol/L (136-145); Troponin-I HS 10 pg/mL (3.0-54.0)
--- NOTE | 2021-09-01 10:08 | RAD_ITS ---
STUDY: X-RAY CHEST REASON FOR EXAM: Female, 56 years old. Sob, cough TECHNIQUE: Single AP portable view of the chest. COMPARISON: Comparison is made with prior study dated 07/06/2021. FINDINGS: EKG electrodes are seen. The lungs are clear and expanded. There is no demonstrated pleural abnormality. There is moderate cardiac enlargement. Normal mediastinum and rosita. Normal visualized pulmonary arteries. Normal visualized aortic arch and descending thoracic aorta. Normal visualized thoracic spine. Normal visualized ribs, clavicles, and shoulders. There is no demonstrated abnormality of the visualized soft tissue structures of the upper abdomen. RAD/Chest 1 View (Portable) IMPRESSION: Cardiomegaly. Electronically Signed: Patrick Keita MD at 10:25 EST , Service support ,
[2021-09-01 10:09] LABS: Lactic Acid 1.6 mmol/L (0.4-1.9)
[2021-09-01 10:15] LABS: Prothrombin Time (Protime)PT. 12.2 SECONDS (11.7-14.9)
[2021-09-01 10:16] LABS: Partial Thromboplast Time 22.8 Seconds (24.1-36.2)
[2021-09-01 10:39] LABS: Bacteria 0 SEEN /hpf (None Seen); Mucous, Urine 0 SEEN /hpf (<or=2+); Red Blood Cells-Urine 0 SEEN /hpf (0-5); White Blood Cells 0 SEEN /hpf (0-5)
[2021-09-01 10:42] LABS: Color, Urine Yellow (Yellow); Glucose, Dipstick Normal (Normal); Ketone-Dipstick Negative (Negative); Leukocyte Esterase-Dipstick Negative /ul (Negative); Nitrite-Dipstick Negative (Negative); Occult Blood-Urine Negative /ul (Negative); Protein-Dipstick Negative (Negative); Specific Gravity, Urine 1.015 (1.002-1.030); Urine Bilirubin Dipstick Negative (Negative); Urine Clarity Clear (Clear); Urine Urobilinogen Normal (Normal)
--- NOTE | 2021-09-01 10:48 | CT_ITS ---
STUDY: CT ABDOMEN AND PELVIS WITHOUT CONTRAST REASON FOR EXAM: Female, 56 years old. Pain- right flank. Patient has a history of recent renal infection. RADIATION DOSAGE (If Supplied By Facility): CTDIvol = ( 23.62 ) mGy, DLP = ( 1239.34 ) mGycm TECHNIQUE: Transaxial images were obtained from the dome of the diaphragm to the symphysis pubis without oral contrast, and without intravenous contrast. Sagittal and coronal images were reconstructed. Individualized dose optimization techniques were used for this CT. COMPARISON: Comparison is made with prior study dated 02/19/2021. FINDINGS: There is a calcified granuloma in the right lower lobe. Stable linear scarring at the left lung base. The visualized portions of the heart are within normal limits. Normal liver. There are surgical clips in the gallbladder fossa consistent with a prior cholecystectomy. Normal spleen. Normal pancreas. Normal bilateral adrenal glands. Normal right kidney. Normal left kidney. There is a small hiatal hernia. Normal small intestine. Normal colon. The appendix is visualized and appears normal. There is scattered atherosclerotic calcification of the abdominal aorta, without a demonstrated aneurysm. Normal inferior vena cava. Normal retroperitoneum. Normal urinary bladder. There is a small umbilical hernia containing fat. Moderate degree of disc space narrowing at the L5-S1 level. CT/Abdomen/Pelvis without Cont IMPRESSION: No acute abnormality is seen. Electronically Signed: Patrick Keita MD at 11:36 EST , Service support ,
[2021-09-01 10:52] LABS: Squamous Epithelial Cells - UA 0-5 SEEN /hpf (5-10)
[2021-09-01] MEDS: Mag Hydrox/Al Hydrox/Simeth 30 ML UDC PO (13:04)
== END 2021-09-01 13:55 | disposition home or self-care (01) ==
PROVIDERS: Emergency Provider Emergency Medicine; PCP Internal Medicine
DX: R10.9 Unspecified abdominal pain (principal); K21.9 Gastro-esophageal reflux disease without esophagitis; R11.2 Nausea with vomiting, unspecified; R53.83 Other fatigue; N39.0 Urinary tract infection, site not specified; B96.20 Unspecified Escherichia coli [E. coli] as the cause of diseases classified elsewhere; E66.9 Obesity, unspecified; Z68.42 Body mass index [BMI] 45.0-49.9, adult; E03.9 Hypothyroidism, unspecified; E78.00 Pure hypercholesterolemia, unspecified; E78.5 Hyperlipidemia, unspecified; F20.9 Schizophrenia, unspecified; F31.9 Bipolar disorder, unspecified; I13.0 Hypertensive heart and chronic kidney disease with heart failure and stage 1 through stage 4 chronic kidney disease, or unspecified chronic kidney disease; N18.9 Chronic kidney disease, unspecified; I50.9 Heart failure, unspecified; I35.1 Nonrheumatic aortic (valve) insufficiency; I48.0 Paroxysmal atrial fibrillation; I87.2 Venous insufficiency (chronic) (peripheral); J44.9 Chronic obstructive pulmonary disease, unspecified; K58.9 Irritable bowel syndrome, unspecified; G43.909 Migraine, unspecified, not intractable, without status migrainosus; G47.33 Obstructive sleep apnea (adult) (pediatric); M16.11 Unilateral primary osteoarthritis, right hip; Z86.73 Personal history of transient ischemic attack (TIA), and cerebral infarction without residual deficits; Z87.19 Personal history of other diseases of the digestive system; Z79.82 Long term (current) use of aspirin; Z79.899 Other long term (current) drug therapy; F17.210 Nicotine dependence, cigarettes, uncomplicated
CPT/HCPCS: 36415; 71045; 74176; 80053; 81001; 82550; 83605; 84484; 85025; 85610; 85730; 87040; 87086; 87088; 87426; 93005; 94640; 96361; 96374; 96376; 99285; J7040; A4216; J2405

== ENCOUNTER → 2021-09-13 | Outpatient (CLI) | payer MEDICAID, SELFPAY ==
--- NOTE | 2021-09-13 07:23 | CT_ITS ---
STUDY: LOW DOSE CT LUNG CANCER SCREENING REASON FOR EXAM: Female, 56 years old. Tobacco Dependency RADIATION DOSAGE (If Supplied By Facility): CTDIvol = ( 4.02 ) mGy, DLP = ( 129.38 ) mGycm TECHNIQUE: No contrast was administered. Low dose technique was utilized (average mAS-38 and kVp 120). 1.25 mm axial source images with a slice interval of 1.25-mm were reconstructed in lung windows. 2.5 mm axial source images with a slice interval of 2.5-mm were reconstructed in lung windows. 5.0 mm axial source images with a slice interval of 5.0-mm were reconstructed in soft tissue windows. Nodule measured using lung windows on PACS and/or independent workstation with automated measurement of minimum and maximum diameter. Nodule measurement reported as average diameter rounded to the nearest whole number. Growth is defined as an increase ins size of greater than 1.5 mm. COMPARISON: Comparison is made with prior study dated 02/09/2021. NODULES: 2 mm noncalcified pleural-based nodule in the peripheral aspect of the left upper lobe as seen on axial image #66. Calcified granuloma at the right lung base. Emphysema: Mild increased linear markings at the left lung base suggestive of scarring. Endobronchial lesion: None Aorta: Unremarkable Coronary arteries: Unremarkable Heart: Unremarkable Pulmonary artery: Unremarkable Mediastinal nodes: Calcified right hilar lymph nodes. Other chest and abdominal findings: CT/Low Dose CT Lung Screening IMPRESSION: Lung-RADS category 2 - Continue annual screening with LDCT in 12 months. IMPORTANT NOTES FOR USE: ACR Lung-RADS Version 1.1 Assessment Categories Release Date: 2018 Category: Coded 0-4 bases on nodule(s) with highest degree of suspicion. Negative screen is defined as categories 1 and 2; a positive screen is defined as categories 3 and 4. Category 3 and 4A nodules that are unchanged on interval CT should be coded as category 2, and individuals returned to screening in 12 months. Category 4X: Category 3 or 4 nodules with additional imaging findings that increase the suspicion of lung cancer, such as spiculation, GGN that doubles in size in 1 year, enlarged lymph notes, etc. Category Modifiers: S (significant finding unrelated to lung cancer) Electronically Signed: Patrick Keita MD at 10:23 EST , Service support ,
== END | disposition home or self-care (01) ==
PROVIDERS: PCP Internal Medicine; Referring Provider Internal Medicine Critical Care Medicine; Visit Provider Internal Medicine Critical Care Medicine
DX: F17.210 Nicotine dependence, cigarettes, uncomplicated (principal); J45.909 Unspecified asthma, uncomplicated
CPT/HCPCS: 71271

== ENCOUNTER → 2021-09-19 06:43 | Outpatient (CLI) | payer MEDICAID, SELFPAY ==
--- NOTE | 2021-09-19 12:22 | STRESSREP ---
Stress Test Report Pharmacologic myocardial perfusion stress test. 56-year-old lady with a history of chest pain. Stress protocol: Resting EKG demonstrates normal sinus rhythm with a rate of 93 bpm normal intervals are noted resting blood pressure is 124/80 mmHg. 0.4 mg of regadenoson was infused per usual protocol followed by rapid intravenous saline flush injection continuous EKG monitoring was performed. The maximum heart rate attained was 100 bpm which was 61% of max impact at heart rate the maximum workload was 1 metabolic equivalent. At rest there were no ST or T wave changes noted to suggest abnormal flow reserve and at peak infusion nonspecific ST changes were noted with did not meet the criteria for ischemia. Myocardial perfusion protocol. 14.8 mCi of technetium 99m sestamibi was injected at rest. 0.4 mg of regadenoson was infused per usual protocol. At peak infusion 44.7 mCi of technetium 99m sestamibi was injected stress images were obtained stress and rest images were reconstructed and compared in the short axis vertical long and horizontal long axis. Gated images were also obtained. Perfusion SPECT analysis: Review of the stress images demonstrate normal perfusion noted in all areas of the myocardium. There is a small portion of the anterior wall with mildly reduced perfusion which appears to be present on the resting images as well. Anterior breast wall attenuation is suggested. No obvious ischemia or infarct is noted. Gated SPECT analysis: The gated ejection fraction is 71%. Conclusion: Normal pharmacologic myocardial perfusion stress test. Preserved ejection fraction.
== END ==
PROVIDERS: PCP Internal Medicine; Referring Provider Nurse Practitioner Family; Visit Provider Nurse Practitioner Family
DX: R07.9 Chest pain, unspecified (principal)
CPT/HCPCS: 78452; 93017; A9500; A4216; J2785

== ENCOUNTER 2021-10-05 16:24 | Emergency (ER) | payer MEDICAID, SELFPAY ==
[2021-10-05 16:25] VITALS: BP 158/105; PULSE 77; RESP 18; TEMP 36.8; O2SAT 99; BMI 48.0
[2021-10-05 16:30] VITALS: BP 158/105; PULSE 77; RESP 18; TEMP 36.8; O2SAT 99
--- NOTE | 2021-10-05 16:42 | CT_ITS ---
HISTORY: Right lower quadrant abdominal pain EXAMINATION: CT Abdomen And Pelvis W/O Contrast Injection TECHNIQUE: Multiple axial images were obtained of the abdomen and pelvis without IV contrast. A radiation dose optimization technique was used for this scan. IV Contrast dosage and agent: None. Oral contrast: Yes. COMPARISON: None FINDINGS: LOWER CHEST: Bibasilar dependent and/or fibrotic changes. No cardiomegaly or pericardial effusion. LIVER: Homogeneous. No focal mass. GALLBLADDER AND BILIARY TREE: Cholecystectomy. No intra- or extrahepatic biliary ductal dilation. PANCREAS: No focal cystic or solid mass. SPLEEN: Normal size without focal cystic or solid mass. ADRENAL GLANDS: No nodules. KIDNEYS AND URETERS: Normal renal size and position. No hydronephrosis or nephrolithiasis. PERITONEUM: No ascites or free air. BOWEL: Normal appendix. No stomach or bowel distension. No focal inflammatory bowel wall changes. LYMPH NODES: No enlarged mesenteric or retroperitoneal lymph nodes. VESSELS: Aorta is non-dilated. URINARY BLADDER: Unremarkable. REPRODUCTIVE ORGANS: No pelvic masses. ABDOMINAL WALL: Small fat-containing umbilical hernia. BONES: No acute or aggressive abnormality. CT/Abdomen/Pel W ORAL Cont Only IMPRESSION: No acute findings in the abdomen or pelvis. Individualized dose optimization techniques were used for this CT. at 1951 Reported and signed by: Darrin Vergara MD Electronically Signed: Darrin Vergara MD at 19:50 EST Tel , Service support ,
--- NOTE | 2021-10-05 16:45 | ED.VIS.GI ---
HPI HPI - GI History of Present Illness Chief Complaint: Abd Pain Informant: patient Abdominal Pain/Flank Pain Onset: Today Context: Gradual Onset Timing: Continuous Quality: Sharp Location: RLQ Worsened by: - (Pressure, walking) Relieved by: Nothing Nausea/Vomiting/Emesis GI Symptom: Positive for Nausea; Negative for Vomiting Diarrhea/Melena/Hematochezia GI Symptom: Positive for Diarrhea; Negative for Melena and Hematochezia Stool Quality: Negative for Black, Maroon and BRB per rectum Associated Symptoms Associated Symptoms: Negative for Dysuria and Hematuria Narrative Narrative: Patient presents with right lower quadrant abdominal pain that began today. Patient states the pain started in her periumbilical area at approximately 10 AM today. Patient states around noon she noted the pain moved to her right lower quadrant. Patient states the pain has been constant in her right lower quadrant ever since. Patient states it is worse whenever you push on the right lower quadrant. Patient states it is also worse whenever she tries to walk. Patient states nothing makes it better. Patient admits to nausea and decreased appetite. Patient denies any vomiting or hematemesis. Patient admits to some diarrhea. Patient denies any melena or hematochezia. Patient denies any urinary complaints. [facility] Medical History Abdominal pain Allergic rhinitis Aortic valve insufficiency Arthralgia of right hip Arthritis Asthma Back pain Bilateral flank pain Bilateral foot pain Bipolar 1 disorder Bipolar disorder Blackout Bladder disease Cancer Cardiology follow-up encounter Chest pain Chest pain Chest pain Chest pain CKD (chronic kidney disease) Conversion disorder Conversion disorder with abnormal movement Convulsion, non-epileptic COPD (chronic obstructive pulmonary disease) COPD, mild CPAP (continuous positive airway pressure) dependence Cyst Depression Diarrhea Dietary restriction Difficulty chewing Dysuria Easy bruising Enlarged aorta Excessive bleeding Gastric reflux Gastritis GERD (gastroesophageal reflux disease) GERD (gastroesophageal reflux disease) Heart failure High cholesterol Hip dislocation, right History of abnormal cervical Pap smear History of atrial fibrillation History of CHF (congestive heart failure) History of echocardiogram History of edema History of hiatal hernia History of IBS History of stress test History of ulceration HLD (hyperlipidemia) HTN (hypertension) Hx of tilt table evaluation Hypertensive crisis without congestive heart failure Hypokalemia Hyponatremia Hyponatremia Hypothyroidism Injury of head and neck Intertriginous dermatitis associated with moisture Left arm swelling Leg cramps Marijuana use Migraine Migraines Nausea & vomiting Nausea and vomiting Non-convulsive status epilepticus Non-rheumatic mitral regurgitation Nonrheumatic aortic (valve) insufficiency Open wound Oral candidiasis Orthostatic hypotension DAPHNE (obstructive sleep apnea) Osteoarthritis Osteoarthritis of right hip PAF (paroxysmal atrial fibrillation) Peripheral artery disease Post-menopausal Psychosis Pulmonary embolism Right hip pain Schizo NEC, chrn/exacerb Schizophrenia Seizures Shortness of breath on exertion Smoker Stroke Stroke/cerebrovascular accident Syncope Thyroid disease TIA (transient ischemic attack) Tobacco abuse Venous insufficiency of both lower extremities Walker as ambulation aid Wears dentures Home Medications nitroglycerin 0.4 mg sublingual tablet 0.4 mg SUBLINGUAL PRN PRN #20 tab 09/10/20 [Rx Last Taken 12/17/20] trazodone 100 mg tablet 100 mg PO QHS 10/31/20 [History Last Taken 12/19/20] levothyroxine 50 mcg tablet 50 mcg PO DAILY #90 tab 01/03/21 [Rx Last Taken Unknown] aspirin 81 mg tablet,delayed release 81 mg PO DAILY@0800 #90 tablet 01/19/21 [Rx Last Taken Unknown] melatonin 10 mg capsule 10 mg PO QHS #90 cap 01/19/21 [Rx Last Taken Unknown] ascorbic acid (vitamin C) [Vitamin C] 1 g PO DAILY 02/08/21 [History Last Taken Unknown] lidocaine 5 % topical patch 1 patch TOPICAL DAILY #30 ea 03/09/21 [Rx Last Taken Unknown] polyethylene glycol 3350 17 gram/dose oral powder 17 g PO BID PRN 04/07/21 [History Last Taken Unknown] nifedipine 60 mg tablet,extended release 24 hr 30 mg PO BID #90 tab 04/08/21 [Rx Last Taken Unknown] furosemide 20 mg tablet 20 mg PO BID #60 tab 05/02/21 [Rx Last Taken Unknown] hydralazine 50 mg PO TID 05/23/21 [History Last Taken Unknown] spironolactone 25 mg PO QHS 05/23/21 [History Last Taken Unknown] albuterol sulfate 90 mcg/actuation aerosol inhaler 2 puff INHALATION Q4H PRN #8.5 g 05/31/21 [Rx Last Taken Unknown] cholecalciferol (vitamin D3) 1,250 mcg (50,000 unit) capsule 50,000 unit PO FR #12 cap 06/02/21 [Rx Last Taken Unknown] Juxtalite #2 ea 06/08/21 [Rx Last Taken Unknown] compress.stocking,knee,reg,lrg #2 ea 06/27/21 [Rx Last Taken Unknown] azelastine 205.5 mcg (0.15 %) nasal spray 1 spray INTRANASAL BID #30 ml 07/11/21 [Rx Last Taken Unknown] losartan 100 mg tablet 100 mg PO DAILY #90 tab 07/15/21 [Rx Last Taken Unknown] guaifenesin 1,200 mg tablet, extended release 12 hr 600 mg PO BID #60 tab 07/27/21 [Rx Last Taken Unknown] atorvastatin 40 mg tablet 40 mg PO QHS #90 tab 08/01/21 [Rx Last Taken Unknown] budesonide-formoterol HFA 160 mcg-4.5 mcg/actuation aerosol inhaler 2 puff INHALATION BID #10.2 g 08/25/21 [Rx Last Taken Unknown] fluticasone propionate 50 mcg/actuation nasal spray,suspension 1 spray NASAL BID #16 g 08/25/21 [Rx Last Taken Unknown] loratadine 10 mg tablet 10 mg PO DAILY #90 tab 08/25/21 [Rx Last Taken Unknown] ondansetron 4 mg PO Q8H PRN #14 tab 09/01/21 [Rx Last Taken Unknown] dicyclomine 10 mg capsule 10 mg PO TID #90 cap 09/07/21 [Rx Last Taken Unknown] meclizine 25 mg tablet 25 mg PO .qid PRN 30 Days #120 tab 09/19/21 [Rx Last Taken Unknown] montelukast 10 mg tablet 10 mg PO QHS #90 tab 09/26/21 [Rx Last Taken Unknown] tiotropium bromide 1.25 mcg/actuation mist for inhalation 2 puff INHALATION DAILY #4 g 09/27/21 [Rx Last Taken Unknown] omeprazole 40 mg PO 1500 10/05/21 [History Last Taken Unknown] Allergy/AdvReac Type Severity Reaction Status Date / Time adhesive tape Allergy Rash Verified 10/05/21 16:27 atropine sulfate Allergy Hives Verified 10/05/21 16:27 [From ] codeine phosphate Allergy breathing Verified 10/05/21 16:27 [From Tylenol-Codeine #3] problems divalproex sodium Allergy Unknown Verified 10/05/21 16:27 [From Depakote] hydromorphone HCl Allergy facial Verified 10/05/21 16:27 [From Dilaudid] blisters,itching hyoscyamine sulfate Allergy Hives Verified 10/05/21 16:27 [From ] Iodinated Contrast Media Allergy breathing Verified 10/05/21 16:27 [Iodinated Contrast Media - problems IV Dye] and my bp went up latex Allergy Rash Verified 10/05/21 16:27 pantoprazole sodium Allergy Rash Verified 10/05/21 16:27 [From Protonix] phenobarbital [From ] Allergy Hives Verified 10/05/21 16:27 promethazine HCl Allergy Anaphylaxis Verified 10/05/21 16:27 [From Phenergan] ramipril Allergy Unknown Verified 10/05/21 16:27 scopolamine hydrobromide Allergy Hives Verified 10/05/21 16:27 [From ] tramadol Allergy Itching Verified 10/05/21 16:27 ziprasidone mesylate Allergy Unknown Verified 10/05/21 16:27 [From Geodon] Sulfa (Sulfonamide AdvReac Vomiting Verified 10/05/21 16:27 Antibiotics) ziprasidone HCl [From Geodon] AdvReac tremors Verified 10/05/21 16:27 VIDODIN TUSS Allergy Itching Uncoded 10/05/21 16:27 Amlodipine AdvReac Vomiting Uncoded 10/05/21 16:27 Family History Sister Myocardial infarction Colon cancer Mother Hypertension Arthritis Brain aneurysm Sister Colon cancer Surgical History bladder sling History of esophagogastroduodenoscopy (EGD) History of laparoscopic cholecystectomy History of uterine suspension procedure Hx of cholecystectomy Hx of colonoscopy left foot S/P carpal tunnel release Social History household members: none number of children: 4 current occupational status: unemployed history of recent travel: No Smoking Status: Current every day smoker tobacco type: cigarettes Tobacco: How many years used: 26 alcohol intake: never substance use type: does not use caffeine: Yes Type: coffee what type of physical activity do you participate in: none seatbelt use: never do you feel safe at home: Yes additional social history: single ROS ROS ED Constitutional Constitutional ED: Reports chills and subjective; Denies fever(s) Eyes Eyes: Denies blurry vision or change in vision ENT ENT ED: Denies rhinorrhea or sore throat Cardiovascular Cardiovascular: Reports chest pain; Denies palpitations Respiratory/Chest Respiratory/Chest: Denies cough or dyspnea Gastrointestinal Gastrointestinal: Reports abdominal pain, diarrhea and nausea; Denies vomiting Genitourinary Genitourinary ED: Denies dysuria or hematuria Musculoskeletal Musculoskeletal: Denies back pain or neck pain Integumentary Denies abscess or rash Neurologic Neurologic: Reports headache(s); Denies weakness Allergic/Immunologic Allergic/Immunologic ED: Denies mouth swelling or urticaria EXAM Physical Exam Const Vital Signs: 10/05/21 16:25 10/05/21 16:30 10/05/21 18:45 Temperature 98.3 F 98.3 F Temperature Source Oral Oral Pulse Rate 77 77 Respiratory Rate 18 18 16 Blood Pressure 158/105 H 158/105 H Blood Pressure Mean 122 122 Pulse Ox 99 99 Oxygen Delivery Method Room Air Room Air Room Air 10/05/21 20:14 Temperature Temperature Source Pulse Rate 63 Respiratory Rate 16 Blood Pressure 151/39 H Blood Pressure Mean 76 Pulse Ox 95 Oxygen Delivery Method Positive well nourished and well developed General Appearance ED: well developed HEENT Reports moist mucous membranes Neck supple and no JVD Resp normal respiratory effort and clear to auscultation bilaterally Cardio regular rate, regular rhythm and no murmurs GI normal to inspection, nondistended, normoactive bowel sounds Palpation: soft, tender RLQ and Rovsing's sign and rebound tenderness present; Negative for guarding Extremity normal to inspection General Extremety ED: Negative for edema or tenderness General Extremity: Negative for edema Neuro oriented x3, CN's II-XII intact bilaterally and no sensory deficits noted Sensorium / Orientation: alert Motor Exam: strength 5/5 throughout Psych mental status grossly normal Skin no rashes or lesions noted MDM MDM MDM Narrative Medical decision making narrative: Patient was given IV fluids, morphine, and Zofran. CBC was within normal limits. Comprehensive metabolic profile was normal. Lipase was normal. CT scan of the abdomen and pelvis was obtained. There is no acute intra-abdominal process. The appendix was visualized and was normal. Patient was advised of her findings. Patient was instructed to drink fluids. Patient was instructed to advance her diet as tolerated. Patient was instructed to follow-up with her primary care physician in 5 to 7 days. Patient was instructed return if worse in any way. Patient understood and was agreeable with the plan. All questions were answered. Lab Data Attestation: I reviewed the patient's lab results. Labs: Laboratory Results - last 24 hr 10/05/21 10/05/21 17:10 17:10 WBC 8.3 RBC 5.00 Hgb 15.5 H Hct 44.9 MCV 89.8 MCH 31.0 MCHC 34.5 RDW Std Deviation 45.2 H RDW Coeff of Yonathan 13.8 Plt Count 249 MPV 10.4 Immature Gran % (Auto) 0.400 Neut % (Auto) 69.9 Lymph % (Auto) 18.7 L [place] % (Auto) 7.6 Eos % (Auto) 3.0 Baso % (Auto) 0.4 Absolute Neuts (auto) 5.8 Absolute Lymphs (auto) 1.55 Nucleated RBC % 0 Sodium 139 Potassium 3.9 Chloride 108 H Carbon Dioxide 26.0 Anion Gap 5 BUN 10 Creatinine 1.24 H Estim Creat Clear Calc 43.22 Est GFR (MDRD) Af Amer 57 L Est GFR (MDRD) Non-Af 47 L BUN/Creatinine Ratio 8.1 L Glucose 101 Calcium 9.8 Total Bilirubin 0.30 AST 18 ALT 39 Alkaline Phosphatase 135 H Total Protein 7.0 Albumin 3.5 Globulin 3.5 Albumin/Globulin Ratio 1.0 Lipase 63 L Radiography Diagnostic Testing: Clinical Impression(s) from Imaging Studies Abdomen CT 10/05/21 16:42 IMPRESSION: No acute findings in the abdomen or pelvis. Individualized dose optimization techniques were used for this CT. at 1951 Reported and signed by: Darrin Vergara MD Electronically Signed: Darrin Vergara MD at 19:50 EST Tel , Service support , Discharge Plan Triage Chief Complaint: Abd Pain ED Provider: Facundo Nolen Dx/Rx/DC Orders Clinical Impression: Abdominal pain Instructions: ED Abdominal Pain Unkn Cause Fem Prescriptions: No Action nitroglycerin 0.4 mg tablet, sublingual 0.4 mg SUBLINGUAL PRN PRN (Reason: CHEST PAIN) Qty: 20 RF: 0 lidocaine 5 % adhesive patch,medicated 1 patch topical DAILY Qty: 30 RF: 1 polyethylene glycol 3350 [Miralax] 17 gram/dose powder 17 g PO BID PRN (Reason: Constipation) RF: 0 albuterol sulfate 90 mcg/actuation HFA aerosol inhaler 2 puff inhalation Q4H PRN (Reason: shortness of breath or wheezing) Qty: 8.5 RF: 6 (DME) Juxtalite See Rx Instructions .Route .MEDSUPPLY Qty: 2 RF: 3 azelastine 205.5 mcg (0.15 %) spray,non-aerosol 1 spray intranasal BID Qty: 30 RF: 11 guaifenesin 1,200 mg tablet extended release 12hr 600 mg PO BID Qty: 60 RF: 1 dicyclomine 10 mg capsule 10 mg PO TID Qty: 90 RF: 1 trazodone 100 MG tablet 100 mg PO QHS RF: 0 Hold Instructions: Order Changed ascorbic acid (vitamin C) [Vitamin C] 1,000 mg Tablet 1 g PO DAILY RF: 0 spironolactone 25 mg tablet 25 mg PO QHS RF: 0 hydralazine 50 mg tablet 50 mg PO TID RF: 0 ondansetron 4 mg tablet,disintegrating 4 mg PO Q8H PRN (Reason: nausea and vomiting) Qty: 14 RF: 0 omeprazole 40 mg capsule,delayed release(DR/EC) 40 mg PO 1500 RF: 0 levothyroxine 50 mcg tablet 50 mcg PO DAILY Qty: 90 RF: 3 aspirin 81 mg tablet,delayed release (DR/EC) 81 mg PO DAILY@0800 Qty: 90 RF: 3 melatonin 10 mg capsule 10 mg PO QHS Qty: 90 RF: 3 nifedipine 60 mg tablet extended release 24hr 30 mg PO BID Qty: 90 RF: 3 furosemide 20 mg tablet 20 mg PO BID Qty: 60 RF: 1 cholecalciferol (vitamin D3) 1,250 mcg (50,000 unit) capsule 50,000 unit PO FR Qty: 12 RF: 1 (DME) compress.stocking,knee,reg,lrg Misc See Rx Instructions .MEDSUPPLY Qty: 2 RF: 1 losartan 100 mg tablet 100 mg PO DAILY Qty: 90 RF: 1 atorvastatin 40 mg tablet 40 mg PO QHS Qty: 90 RF: 1 budesonide-formoterol [Symbicort] 160-4.5 mcg/actuation HFA aerosol inhaler 2 puff INHALATION BID Qty: 10.2 RF: 3 fluticasone propionate 50 mcg/actuation spray,suspension 1 spray NASAL BID Qty: 16 RF: 1 loratadine 10 mg tablet 10 mg PO DAILY Qty: 90 RF: 1 meclizine 25 mg tablet 25 mg PO .qid PRN (Reason: motion sickness) 30 Days Qty: 120 RF: 0 montelukast [Singulair] 10 mg tablet 10 mg PO QHS Qty: 90 RF: 1 Spiriva Respimat 1.25 mcg/actuation mist 2 puff inhalation DAILY Qty: 4 RF: 3 Primary Care Provider: Scarlet Navarro Referrals: Scarlet Navarro MD [Primary Care Provider] - 5-7 Days Disposition Disposition: Home, Self Care
[2021-10-05] MEDS: Morphine 4 MG/ML Syringe IV (17:15)
[2021-10-05] MEDS: Ondansetron 4 MG/2 ML Vial IV (17:15)
[2021-10-05] MEDS: 0.9% Normal Saline 1,000 ML 125 ML IV (17:15)
[2021-10-05 17:23] LABS: Absolute Lymphocyte Count 1.55 X10^3/uL (0.83-4.51); Absolute Neutrophil Count 5.8 X10^3/uL (2.0-7.7); Basophil# 0.03 X10^3/uL; Basophil% 0.4 % (0-1); Eosinophil# 0.25 X10^3/uL; Hematocrit 44.9 % (37-47); Hemoglobin 15.5 g/dL (12.0-15.0); Lymphocyte # 1.55 X10^3/ul (0.83-4.51); Lymphocyte % 18.7 % (19-41); Mean Corp Hgb Conc 34.5 g/dL (32-36); Mean Corpuscular Volume 89.8 fL (81-99); Mean Platelet Vol. 10.4 fl (6.2-12.0); Monocyte# 0.63 X10^3/uL; Monocyte% 7.6 % (0-10); NRBC Flagged by Analyzer 0 % (0-5); Neutrophil # 5.81 X10^3/uL (2.7-7.7); Neutrophil % 69.9 % (47-70); Platelet Count 249 K/mm3 (150-450); RBC Distribution Width CV 13.8 % (11.6-14.6); RBC Distribution Width SD 45.2 fl (35.1-43.9); White Blood Count 8.3 K/mm3 (4.4-11.0)
[2021-10-05 17:41] LABS: BUN 10 mg/dL (7-18); Creatinine, Serum 1.24 mg/dL (0.55-1.02); EST Glomerular Filtration Rate 47 mL/min (>60); Estimated Creatinine Clearance 43.22 ml/min; Glucose 101 mg/dL (74-106)
[2021-10-05 17:42] LABS: AST(SGOT) 18 U/L (15-37); Alanine Aminotransfer ALT/SGPT 39 U/L (13-56); Albumin, Serum 3.5 g/dL (3.2-5.0); Alkaline Phosphatase 135 U/L (45-117); Anion Gap 5 (5-15); BUN/Creat Ratio 8.1 RATIO (10-20); Calcium,Total 9.8 mg/dL (8.5-10.1); Chloride 108 mmol/L (98-107); Est Glom Filt Rate - Afr Amer 57 mL/min (>60); Globulin 3.5 g/dL (2.2-4.2); Lipase 63 U/L (73-393); Potassium 3.9 mmol/L (3.5-5.1); Sodium Level 139 mmol/L (136-145)
[2021-10-05 18:45] VITALS: RESP 16
[2021-10-05 20:14] VITALS: BP 151/39; PULSE 63; RESP 16; O2SAT 95
[2021-10-05 21:07] VITALS: BP 153/78; PULSE 81
== END 2021-10-05 21:08 | disposition home or self-care (01) ==
PROVIDERS: Emergency Provider Emergency Medicine; PCP Internal Medicine
DX: R10.33 Periumbilical pain (principal); R10.31 Right lower quadrant pain; R11.0 Nausea; R19.7 Diarrhea, unspecified; E03.9 Hypothyroidism, unspecified; E78.00 Pure hypercholesterolemia, unspecified; E78.5 Hyperlipidemia, unspecified; F20.9 Schizophrenia, unspecified; F31.9 Bipolar disorder, unspecified; G43.909 Migraine, unspecified, not intractable, without status migrainosus; G47.33 Obstructive sleep apnea (adult) (pediatric); I13.0 Hypertensive heart and chronic kidney disease with heart failure and stage 1 through stage 4 chronic kidney disease, or unspecified chronic kidney disease; N18.9 Chronic kidney disease, unspecified; I50.9 Heart failure, unspecified; I35.1 Nonrheumatic aortic (valve) insufficiency; I48.0 Paroxysmal atrial fibrillation; I87.2 Venous insufficiency (chronic) (peripheral); K21.9 Gastro-esophageal reflux disease without esophagitis; I73.9 Peripheral vascular disease, unspecified; K58.9 Irritable bowel syndrome, unspecified; J44.9 Chronic obstructive pulmonary disease, unspecified; M16.11 Unilateral primary osteoarthritis, right hip; Z86.73 Personal history of transient ischemic attack (TIA), and cerebral infarction without residual deficits; Z87.19 Personal history of other diseases of the digestive system; Z86.711 Personal history of pulmonary embolism; Z79.82 Long term (current) use of aspirin; Z79.899 Other long term (current) drug therapy; F17.210 Nicotine dependence, cigarettes, uncomplicated
CPT/HCPCS: 74176; 80053; 83690; 85025; 96361; 96374; 96375; 99285; J7030; A4216; J2405

== ENCOUNTER 2021-10-12 09:07 | Day surgery (SDC) | payer MEDICAID, SELFPAY ==
[2021-10-12] VITALS (7 sets, daily range): BP systolic 94–128; BP diastolic 48–72; PULSE 59–76; RESP 16–20; TEMP 36.3–37.1; O2SAT 96–98; BMI 46.1
--- NOTE | 2021-10-12 | EGD_PTH ---
PATIENT: NIGHAT TIMMONS LOC: EN U#:[id number] AGE/SX: 56/F ROOM: RE10/12/[address]: Dr. Sumeet Irving DO : 1965 BED: DIS: 10/12/2021 SPEC #: [id number] RECD: 10/12/21 10:37 STATUS: HUMERA REAnne #: [id number] KENNEDY: 10/12/21 00:[address]: Sumeet Irving DEPT: SURGICAL PATHOLOGY RECD BY: Tiesha Raines ENTERED: 10/12/21 12:25 SP TYPE: EGD BIOPSY OT DR: Dr. Scarlet Navarro MD Tissues: A - Gastric mucous membrane B - Duodenum, NOS C - Esophagus, NOS D - COLON BIOPSY E - Sigmoid colon biopsy Procedures: Surgery Specimen Level IV HEADER OPERATION[place] [place] DIAGNOSIS: GERD, nausea, vomiting, diarrhea, abdominal pain TISSUE SUBMITTED: A ? Gastric antral biopsy for H. pylori and pathology, B ? Duodenal biopsy, C ? Distal esophageal biopsy, D ? Splenic flexure polyp biopsy, E ? Sigmoid colon biopsy MICROSCOPIC DIAGNOSIS A. Gastric antrum, biopsy: Mild gastritis. See microscopic description and comment. B. Duodenal biopsy: Fragments of small intestinal mucosa with mild congestion. C. Distal esophageal biopsy: Fragments of squamous epithelium, no pathologic diagnosis. D. Splenic flexure polyp, biopsy: A fragment of colonic mucosa, no pathologic diagnosis. E. Sigmoid colon polyp, biopsy: Tubular adenoma. SJ:jaclyn 10/13/2021 COMMENT A. The results of immunohistochemistry for Helicobacter pylori will be reported separately ([id number]). MICROSCOPIC DESCRIPTION Slides are reviewed. A. The specimen shows fragments of gastric mucosa with chronic inflammatory cell infiltrates in the lamina propria consisting of lymphocytes and plasma cells, consistent with mild chronic gastritis. GROSS DESCRIPTION A - Received in fixative is one container labeled with the patient's name and designated gastric antral biopsy. The specimen consists of two irregular fragments of light huertas soft tissue that in aggregate measure 0.6 x 0.2 x 0.1 cm. The specimen is totally submitted in one cassette. B - Received in fixative is one container labeled with the patient's name and designated duodenal biopsy. The specimen consists of multiple irregular fragments of light huertas soft tissue that in aggregate measure 0.5 x 0.2 x 0.1 cm. The specimen is totally submitted in one cassette. C - Received in fixative is one container labeled with the patient's name and designated distal esophageal biopsy. The specimen consists of multiple irregular fragments of light huertas soft tissue that in aggregate measure 0.9 x 0.3 x 0.1 cm. The specimen is totally submitted in one cassette. D - Received in fixative is one container labeled with the patient's name and designated splenic flexure polyp. The specimen consists of one irregular fragment of light huertas soft tissue that measures 0.4 x 0.3 x 0.1 cm. The specimen is totally submitted in one cassette. E - Received in fixative is one container labeled with the patient's name and designated sigmoid polyp biopsy. The specimen consists of one irregular fragment of light huertas soft tissue that measures 0.3 x 0.3 x 0.1 cm. The specimen is totally submitted in one cassette. / SJ:rg 10/12/21 TC:1 CPT: 46937 x5
--- NOTE | 2021-10-12 09:47 | HP.PCM_ITS ---
History and Physical Date of Admission: 10/12/21 NIGHAT TIMMONS, is a 56 F who presents to the office today for evaluation of nausea and abdominal pain. She has extensive past medical history including COPD, chronic kidney disease, bipolar disorder, depression, obesity. She says this has been going on for last 15 years. She does use marijuana in order to control her symptoms. She says that initially when this was diagnosed 15 years ago there was a possible diagnosis of cyclic vomiting syndrome. She is concerned because she is having more diarrhea and she has multiple family members with Crohn's disease. Daily symptoms include abdominal pain, constipation, heartburn, nausea and vomiting. For most of her life she has been having difficulty with nausea and vomiting that will last for a couple of years - in the beginning it will be infrequent and then progressively get worse until it is daily. At one point a PEG tube was being considered because she was unable to eat. With these occasions she gets constipation. On one occasion she had pancreatitis and was treated. She has an extensive comorbidity list with medications. CT of abdomen pelvis performed 09/01/21 with findings of Lung, calcified granuloma in right lower lobe, stable linear scarring at left lung base. Cholecystectomy. Small hiatal hernia. Atherosclerotic calcification of abdominal aorta. Small umbilical hernia containing fat. Ct of Lung performed 09/13/21 with findings of 3mm noncalcified pleural based nodule on left upper lobe. Calcified granuloma at right lung base. Emphysema. Calcified right hilar lymph nodes. Barium swallow performed EGD performed - 04/2021 with finding of small hiatal hernia. She was placed on stomach pill but this did not help and is not taking. ROS Const Constitutional: Positive for fatigue and weight change Cardio Cardiology: Positive for chest pain at rest and shortness of breath Gastro GI: Positive for abdominal pain, constipation, heartburn, nausea/dyspepsia and vomiting Musc Musculoskeletal: Positive for muscle cramps and muscle weakness Skin Skin: Positive for itchy eyes Endo Endocrine: Positive for fatigue, increased thirst/drinking and weight change Aller/Imm Allergy/Immunologic: Positive for itchy eyes Exam Const General: cooperative and comfortable Nutritional Appearance: average body habitus and well nourished HENMT Head: normal to inspection Ears: hearing grossly normal bilaterally Nose: external nose normal Face and sinus: normal facial exam Mouth: oral mucosae normal Throat: posterior oropharynx normal Eyes General: appearance normal, both eyes and all related structures Neck Neck: normal visual inspection Chest Chest palpation & inspection: normal inspection of the chest and normal palpation of entire chest wall Resp Effort & Inspection: normal respiratory effort Auscultation: Bilateral: Clear to Auscultation Cardio Palpation: normal PMI Rate: regular rate Rhythm: regular rhythm GI Inspection: normal to inspection Auscultation: normal bowel sounds Percussion: normal to percussion Palpation: no hepatosplenomegaly Skin General: no rashes or lesions noted Neuro General: patient alert Extrem General: normal to inspection Psych Affect: normal affect Quality Reporting Tobacco Screening ([facility] 138) Smoking Status: Current every day smoker Assessment and Plan Assessment and Plan (1) GERD (gastroesophageal reflux disease): Plan - Dr. Sumeet Irving, DO: Patient says she does take omeprazole and it has not been helping. I suspect this is because she has a previous diagnosis of gastroparesis and has not been treated. I will see if she can tolerate low-dose Reglan in the evening only. I will also institute Dexilant therapy. She may be a good candidate for probable procedure to see if this is related to reflux disease or bile. (2) Nausea & vomiting: Status: Acute Plan - Dr. Sumeet Irving, DO: She has a diagnosis of gastroparesis and possible cyclic vomiting syndrome. In the setting of marijuana usage and increases her risk of marijuana hyperemesis. I encouraged her to stop smoking marijuana as it increases cough induced reflux and worsening of her gastroparesis to to marijuana. (3) Diarrhea: Status: Acute Plan - Dr. Sumeet Irving, DO: We will evaluate her small bowel endoscopy and colonoscopy with biopsies throughout the GI tract to identify any possible eosinophilic disease that could be contributing to her lung disease and GI disease. (4) Abdominal pain: Status: Acute Plan - Dr. Sumeet Irving, DO: Her abdominal pain is multifactorial I have re-examined the patient. There are no clinical changes since date of exam.
--- NOTE | 2021-10-12 10:07 | OP.CCLET_ITS ---
06/21/2022 Scarlet Navarro MD [address] [place] [address] [place] [address] Re : Upper GI endoscopy procedure for Soumya Parekhman Dear Dr. Navarro This procedure was performed on Tuesday, October 12, 2021. My impressions and recommendations are as follows: Impressions : - LA Grade A reflux esophagitis. Biopsied. - Medium-sized hiatal hernia. - Erythematous mucosa in the antrum. - Normal second portion of the duodenum. Biopsied. Recommendations : - Discharge patient to home. - Resume previous diet. - Continue present medications. - Await pathology results. - Repeat upper endoscopy in 1 year for surveillance based on pathology results. - Return to GI office in 2 weeks. My findings are described in the full procedure note, which is enclosed. If I can be of further assistance, please feel free to contact me at . Sincerely, Sumeet Friend, 10/12/2021 10:07:26 AM This report has been signed electronically.
--- NOTE | 2021-10-12 10:07 | OP.EGD_ITS ---
Patient Name: Soumya Owens Procedure Date: 10/12/2021 9:50 AM Date of : 1965 Age: 56 Procedure: Upper GI endoscopy Indications: Epigastric abdominal pain Providers: Sumeet Irving DO Medicines: See the Anesthesia note for documentation of the administered medications Patient Profile: This is a 56 year old female. Refer to note in patient chart for documentation of history and physical. Patient has symptoms of chronic abdominal cramping, chronic abdominal distention and chronic nausea. Complications: No immediate complications. Procedure: Pre-Anesthesia Assessment: - Prior to the procedure, a History and Physical was performed, and patient medications and allergies were reviewed. The risks and benefits of the procedure and the sedation options and risks were discussed with the patient. All questions were answered and informed consent was obtained. Patient identification and proposed procedure were verified by the physician in the pre-procedure area. Mental Status Examination: alert and oriented. Airway Examination: normal oropharyngeal airway and neck mobility. Respiratory Examination: clear to auscultation. CV Examination: normal. Prophylactic Antibiotics: The patient does not require prophylactic antibiotics. Prior Anticoagulants: The patient has taken no previous anticoagulant or antiplatelet agents. After reviewing the risks and benefits, the patient was deemed in satisfactory condition to undergo the procedure. The anesthesia plan was to use moderate sedation / analgesia (conscious sedation). Immediately prior to administration of medications, the patient was re-assessed for adequacy to receive sedatives. The heart rate, respiratory rate, oxygen saturations, blood pressure, adequacy of pulmonary ventilation, and response to care were monitored throughout the procedure. The physical status of the patient was re-assessed after the procedure. After obtaining informed consent, the endoscope was passed under direct vision. Throughout the procedure, the patient's blood pressure, pulse, and oxygen saturations were monitored continuously. The Endoscope was introduced through the mouth, and advanced to the second part of duodenum. The upper GI endoscopy was accomplished without difficulty. The patient tolerated the procedure well. Moderate Sedation: Moderate (conscious) sedation was administered by the endoscopy nurse and supervised by the endoscopist. The patient's oxygen saturation, heart rate, blood pressure and response to care were monitored. Total physician intraservice time was 15 minutes. Scope In: 9:58:57 AM Scope Out: 10:03:40 AM Total Procedure Duration Time 0 hours 4 minutes 43 seconds Findings: LA Grade A (one or more mucosal breaks less than 5 mm, not extending between tops of 2 mucosal folds) esophagitis with no bleeding was found 34 to 35 cm from the incisors. Biopsies were taken with a cold forceps for histology. Verification of patient identification for the specimen was done. Estimated blood loss was minimal. A medium-sized hiatal hernia was present. Localized mildly erythematous mucosa without bleeding was found in the gastric antrum. The second portion of the duodenum was normal. Biopsies were taken with a cold forceps for histology. Verification of patient identification for the specimen was done. Estimated blood loss was minimal. Impression: - LA Grade A reflux esophagitis. Biopsied. - Medium-sized hiatal hernia. - Erythematous mucosa in the antrum. - Normal second portion of the duodenum. Biopsied. Recommendation: - Discharge patient to home. - Resume previous diet. - Continue present medications. - Await pathology results. - Repeat upper endoscopy in 1 year for surveillance based on pathology results. - Return to GI office in 2 weeks. Procedure Code(s): --- Professional --- 49201, Esophagogastroduodenoscopy, flexible, transoral; with biopsy, single or multiple G0500, Moderate sedation services provided by the same physician or other qualified health home care manager rn performing a gastrointestinal endoscopic service that sedation supports, requiring the presence of an independent trained observer to assist in the monitoring of the patient's level of consciousness and physiological status; initial 15 minutes of intra-service time; patient age 5 years or older (additional time may be reported with 57418, as appropriate) CPT copyright 2017 [employer]. All rights reserved. The codes documented in this report are preliminary and upon psychiatry resident review may be revised to meet current compliance requirements. Sumeet Irving DO 10/12/2021 10:07:26 AM This report has been signed electronically. Number of Addenda: 1 Note Initiated On: 10/12/2021 9:50 AM Addendum Number: 1 Addendum Date: 06/21/2022 7:28:41 AM MAC was used instead of moderate sedation for the patient. Sumeet Irving DO 06/21/2022 7:28:45 AM This report has been signed electronically.
--- NOTE | 2021-10-12 10:31 | OP.COLON_ITS ---
Patient Name: Soumya Owens Procedure Date: 10/12/2021 10:05 AM Date of : 1965 Age: 56 Procedure: Colonoscopy Indications: Abdominal pain in the left lower quadrant, Chronic diarrhea Providers: Sumeet Irving DO Medicines: See the Anesthesia note for documentation of the administered medications Patient Profile: This is a 56 year old female. Refer to note in patient chart for documentation of history and physical. Patient has symptoms of chronic abdominal cramping, chronic abdominal distention and chronic nausea. Last Colonoscopy: within the past 3 years. Complications: No immediate complications. Procedure: Pre-Anesthesia Assessment: - Prior to the procedure, a History and Physical was performed, and patient medications and allergies were reviewed. The risks and benefits of the procedure and the sedation options and risks were discussed with the patient. All questions were answered and informed consent was obtained. Patient identification and proposed procedure were verified by the physician in the pre-procedure area. Mental Status Examination: alert and oriented. Airway Examination: normal oropharyngeal airway and neck mobility. Respiratory Examination: clear to auscultation. CV Examination: normal. Prophylactic Antibiotics: The patient does not require prophylactic antibiotics. Prior Anticoagulants: The patient has taken no previous anticoagulant or antiplatelet agents. After reviewing the risks and benefits, the patient was deemed in satisfactory condition to undergo the procedure. The anesthesia plan was to use moderate sedation / analgesia (conscious sedation). Immediately prior to administration of medications, the patient was re-assessed for adequacy to receive sedatives. The heart rate, respiratory rate, oxygen saturations, blood pressure, adequacy of pulmonary ventilation, and response to care were monitored throughout the procedure. The physical status of the patient was re-assessed after the procedure. After I obtained informed consent, the scope was passed under direct vision. Throughout the procedure, the patient's blood pressure, pulse, and oxygen saturations were monitored continuously. The colonoscope was introduced through the anus and advanced to the terminal ileum. The entire colon was examined. Moderate Sedation: Moderate (conscious) sedation was administered by the endoscopy nurse and supervised by the endoscopist. The following parameters were monitored: oxygen saturation, heart rate, blood pressure, and response to care. Total physician intraservice time was 15 minutes. Scope In: 10:13:00 AM Scope Withdrawal Time 0 hours 11 minutes 2 seconds Scope Out: 10:25:25 AM Total Procedure Duration Time 0 hours 12 minutes 25 seconds Findings: The perianal and digital rectal examinations were normal. Two sessile polyps were found in the sigmoid colon and splenic flexure. The polyps were 1 to 2 mm in size. These polyps were removed with a hot snare. Resection and retrieval were complete. Verification of patient identification for the specimen was done. Estimated blood loss was minimal. A few small-mouthed diverticula were found in the sigmoid colon. The entire examined colon appeared normal. A moderate amount of stool was found in the recto-sigmoid colon, in the descending colon, at the splenic flexure, at the hepatic flexure, in the ascending colon and in the cecum, precluding visualization. Impression: - Two 1 to 2 mm polyps in the sigmoid colon and at the splenic flexure, removed with a hot snare. Resected and retrieved. - Diverticulosis in the sigmoid colon. - The entire examined colon is normal. Recommendation: - Discharge patient to home. - Resume previous diet. - Continue present medications. - Await pathology results. - Repeat colonoscopy in 5 years for surveillance based on pathology results. - Return to GI office in 1 week. Procedure Code(s): --- Professional --- 20164, Colonoscopy, flexible; with removal of tumor(s), polyp(s), or other lesion(s) by snare technique 43673, 58, Moderate sedation services provided by the same physician or other qualified health child day care teacher performing the diagnostic or therapeutic service that the sedation supports, requiring the presence of an independent trained observer to assist in the monitoring of the patient's level of consciousness and physiological status; initial 15 minutes of intraservice time, patient age 5 years or older CPT copyright 2017 [employer]. All rights reserved. The codes documented in this report are preliminary and upon shop girl review may be revised to meet current compliance requirements. Sumeet Irving DO 10/12/2021 10:30:38 AM This report has been signed electronically. Number of Addenda: 1 Note Initiated On: 10/12/2021 10:05 AM Addendum Number: 1 Addendum Date: 06/21/2022 7:28:53 AM MAC was used instead of moderate sedation for the patient. Sumeet Irving DO 06/21/2022 7:29:00 AM This report has been signed electronically.
--- NOTE | 2021-10-12 10:32 | OP.CCLET_ITS ---
06/21/2022 Scarlet Navarro MD [address] [place] [address] [place] [address] Re : Colonoscopy procedure for Soumya Parekhman Dear Dr. Navarro This procedure was performed on Tuesday, October 12, 2021. My impressions and recommendations are as follows: Impressions : - Two 1 to 2 mm polyps in the sigmoid colon and at the splenic flexure, removed with a hot snare. Resected and retrieved. - Diverticulosis in the sigmoid colon. - The entire examined colon is normal. Recommendations : - Discharge patient to home. - Resume previous diet. - Continue present medications. - Await pathology results. - Repeat colonoscopy in 5 years for surveillance based on pathology results. - Return to GI office in 1 week. My findings are described in the full procedure note, which is enclosed. If I can be of further assistance, please feel free to contact me at . Sincerely, Sumeet Irving, 10/12/2021 10:30:38 AM This report has been signed electronically.
--- NOTE | 2021-10-12 11:00 | IMM_PTH ---
PATIENT: NIGHAT TIMMONS LOC: EN U#:[id number] AGE/SX: 56/F ROOM: RE10/12/[address]: Dr. Sumeet Irving DO : 1965 BED: DIS: 10/12/2021 SPEC #: [id number] RECD: 10/12/21 13:38 STATUS: HUMERA REQ #: [id number] KENNEDY: 10/12/21 11:[address]: Sumeet Irving DEPT: IMMUNOHISTOCHEMISTRY RECD BY: Virginia Larsen ENTERED: 10/12/21 13:38 SP TYPE: IMMUNO OTHR DR: Dr. Scarlet Navarro MD Tissues: A - Stomach, NOS Procedures: H Pylori (initial) PHYSICIAN & INSTITUTION [place] [address] SPECIMEN INFORMATION: Tissue Source: A ? Gastric antral biopsy Clinical Info: GERD, nausea, vomiting, diarrhea, abdominal pain Specimen Number: [id number] CPT code: 09055 METHODOLOGY: Deparaffinized sections of prefer/formalin-fixed tissue or PAP/DQ stained slides are incubated with monoclonal/polyclonal antibodies/oligonucleotide probes. Localization is made via biotin free immunoperoxidase method. Appropriate controls are performed and reacted as expected. Results on target cell population are indicated in the following table: RESULTS: ANTIBODY / CLONE RESULT Block A H Pylori (polyclonal) negative These tests were developed and their performance characteristics determined by [facility]. They may not have been cleared or approved by the U.S. Food and Drug Administration. The FDA has determined that such clearance or approval is not necessary. INTERPRETATION: A. Gastric antral biopsy: Negative for Helicobacter pylori organisms. SJ:jaclyn 10/13/2021
== END 2021-10-12 11:19 | disposition home or self-care (01) ==
LOC: EN 09:08 → AC 09:09
PROVIDERS: PCP Internal Medicine; Referring Provider Internal Medicine; Visit Provider Internal Medicine Gastroenterology
PROC: 0DJD8ZZ Inspection of Lower Intestinal Tract, Via Natural or Artificial Opening Endoscopic (ICD-10-PCS; CPT 45378; principal; 2021-10-12 10:55)
DX: K29.70 Gastritis, unspecified, without bleeding (principal); D12.5 Benign neoplasm of sigmoid colon; K63.5 Polyp of colon; K21.00 Gastro-esophageal reflux disease with esophagitis, without bleeding; K44.9 Diaphragmatic hernia without obstruction or gangrene; K57.30 Diverticulosis of large intestine without perforation or abscess without bleeding; K31.84 Gastroparesis; K52.9 Noninfective gastroenteritis and colitis, unspecified; J44.9 Chronic obstructive pulmonary disease, unspecified; E03.9 Hypothyroidism, unspecified; I34.0 Nonrheumatic mitral (valve) insufficiency; I13.0 Hypertensive heart and chronic kidney disease with heart failure and stage 1 through stage 4 chronic kidney disease, or unspecified chronic kidney disease; N18.9 Chronic kidney disease, unspecified; I50.9 Heart failure, unspecified; I35.1 Nonrheumatic aortic (valve) insufficiency; E66.9 Obesity, unspecified; Z68.42 Body mass index [BMI] 45.0-49.9, adult; I48.0 Paroxysmal atrial fibrillation; F20.9 Schizophrenia, unspecified; I87.2 Venous insufficiency (chronic) (peripheral); F31.9 Bipolar disorder, unspecified; I73.9 Peripheral vascular disease, unspecified; E78.5 Hyperlipidemia, unspecified; E78.00 Pure hypercholesterolemia, unspecified; G47.33 Obstructive sleep apnea (adult) (pediatric); M47.816 Spondylosis without myelopathy or radiculopathy, lumbar region; M16.11 Unilateral primary osteoarthritis, right hip; G43.909 Migraine, unspecified, not intractable, without status migrainosus; Z86.711 Personal history of pulmonary embolism; Z86.73 Personal history of transient ischemic attack (TIA), and cerebral infarction without residual deficits; Z79.899 Other long term (current) drug therapy; F17.210 Nicotine dependence, cigarettes, uncomplicated
CPT/HCPCS: 43239; 45385; 87426; 88305; 88342; J7120; J2405

== ENCOUNTER 2021-10-19 13:42 | Outpatient (CLI) | payer MEDICAID, SELFPAY ==
[2021-10-19 15:55] LABS: Erythrocyte Sedimentation Rate 19 mm/hr (0-30)
[2021-10-19 16:16] LABS: Anion Gap 10 (5-15); BUN 16 mg/dL (7-18); BUN/Creat Ratio 11.7 RATIO (10-20); Chloride 104 mmol/L (98-107); Creatinine, Serum 1.37 mg/dL (0.55-1.02); EST Glomerular Filtration Rate 42 mL/min (>60); Est Glom Filt Rate - Afr Amer 51 mL/min (>60); Glucose 100 mg/dL (74-106); Potassium 3.9 mmol/L (3.5-5.1); Sodium Level 138 mmol/L (136-145)
[2021-10-21 16:09] LABS: Endomysial Antibody IgA Negative (Negative)
[2021-10-21 21:47] LABS: Immunoglobulin A 113 mg/dL (87-352); t-Transglutaminase IgA <2 U/mL (0-3)
[2021-10-22 10:06] LABS: ANTINUCLEAR ANTIBODIES DIRECT Negative (Negative)
== END 2021-10-19 23:59 | disposition short-term general hospital (02) ==
LOC: BIMLAB 13:43
PROVIDERS: Internal Medicine; Visit Provider Internal Medicine Gastroenterology
DX: M60.9 Myositis, unspecified (principal); K29.60 Other gastritis without bleeding
CPT/HCPCS: 86225; 86235 ×3; 36415; 80048; 82784; 83516; 85652; 86038; 86255

== ENCOUNTER 2021-10-21 08:08 | Outpatient (CLI) | payer MEDICAID, SELFPAY ==
[2021-10-25 11:38] LABS: H. PYLORI STOOL AG Negative (Negative)
== END 2021-10-21 23:59 | disposition short-term general hospital (02) ==
LOC: LABSPEC 08:09
PROVIDERS: Referring Provider Internal Medicine Gastroenterology; Visit Provider Internal Medicine Gastroenterology
DX: K29.60 Other gastritis without bleeding (principal)

== ENCOUNTER 2021-12-07 13:42 | Outpatient (CLI) | payer MEDICAID, SELFPAY ==
[2021-12-07 13:52] LABS: Bacteria 0 SEEN /hpf (None Seen); Mucous, Urine 0 SEEN /hpf (<or=2+); Red Blood Cells-Urine 0 SEEN /hpf (0-5)
[2021-12-07 14:51] LABS: Color, Urine Yellow (Yellow); Glucose, Dipstick Normal (Normal); Ketone-Dipstick Negative (Negative); Leukocyte Esterase-Dipstick Negative /ul (Negative); Nitrite-Dipstick Negative (Negative); Occult Blood-Urine Negative /ul (Negative); Protein-Dipstick Negative (Negative); Urine Bilirubin Dipstick Negative (Negative); Urine Clarity Sl. Cloudy (Clear); Urine Urobilinogen Normal (Normal)
[2021-12-07 14:58] LABS: Squamous Epithelial Cells - UA 0-5 SEEN /hpf (5-10); White Blood Cells 0-5 SEEN /hpf (0-5)
[2021-12-07 15:15] LABS: Protein, Urine (Random) 7.8 mg/dL (<11.9); Protein:Creat Ratio 73 mg/g CRE (0-200)
[2021-12-07 15:43] LABS: Anion Gap 6 (5-15); BUN 12 mg/dL (7-18); BUN/Creat Ratio 9.7 RATIO (10-20); Calcium,Total 9.4 mg/dL (8.5-10.1); Chloride 104 mmol/L (98-107); Creatinine, Serum 1.24 mg/dL (0.55-1.02); EST Glomerular Filtration Rate 47 mL/min (>60); Est Glom Filt Rate - Afr Amer 57 mL/min (>60); Glucose 96 mg/dL (74-106); Potassium 3.6 mmol/L (3.5-5.1); Sodium Level 137 mmol/L (136-145)
== END 2021-12-07 23:59 | disposition home or self-care (01) ==
LOC: LAB 13:44
PROVIDERS: PCP Internal Medicine; Referring Provider Nurse Practitioner Adult Health; Visit Provider Nurse Practitioner Adult Health
DX: N18.31 Chronic kidney disease, stage 3a (principal)
CPT/HCPCS: 36415; 81001; 84156; 82570; 80048

== ENCOUNTER 2021-12-07 15:21 | Emergency (ER) | payer MEDICAID, SELFPAY ==
[2021-12-07 15:21] VITALS: BP 145/96; PULSE 96; RESP 20; TEMP 36.7; O2SAT 98; BMI 38.6
[2021-12-07 15:34] VITALS: BP 130/92; PULSE 90; RESP 16; O2SAT 98
--- NOTE | 2021-12-07 15:38 | RAD_ITS ---
STUDY: X-RAY - ACUTE ABDOMINAL SERIES REASON FOR EXAM: Female, 56 years old. vomiting, no bm TECHNIQUE: Single view of the chest. Supine and erect view(s) of the abdomen were obtained. COMPARISON: ABD PAIN ON AND OFF SINCE MARCH UNABLE TO EAT AND NO BOWEL MOVEMENTS SINCE 11-25-21 FINDINGS: Cholecystectomy clips. The lungs are clear and expanded. Normal size heart. Normal mediastinum and rosita. Normal visualized pulmonary arteries. Normal visualized aortic arch and descending thoracic aorta. There is a non-specific bowel gas pattern. No significant fecal impaction. The soft tissue structures of the abdomen and pelvis are unremarkable. Artifact overlies the left abdomen on images 1 and 2. There are diffuse degenerative changes of the visualized lumbar spine. RAD/Acute Abdomen Inc Chest IMPRESSION: Nonobstructive bowel gas pattern. Electronically Signed: Trav Paul MD (Brooks) at 16:52 EST ,
[2021-12-07] MEDS: Ondansetron 4 MG/2 ML Vial IV (15:52)
[2021-12-07] MEDS: 0.9% Normal Saline 1,000 ML 1000 ML IV (15:52)
[2021-12-07] MEDS: Mag Hydrox/Al Hydrox/Simeth 30 ML UDC PO (15:55)
[2021-12-07 16:03] LABS: Absolute Lymphocyte Count 1.61 X10^3/uL (0.83-4.51); Absolute Neutrophil Count 7.3 X10^3/uL (2.0-7.7); Basophil# 0.03 X10^3/uL; Basophil% 0.3 % (0-1); Eosinophil# 0.18 X10^3/uL; Eosinophils% 1.8 % (0-5); Hematocrit 50.6 % (37-47); Hemoglobin 17.8 g/dL (12.0-15.0); Lymphocyte # 1.61 X10^3/ul (0.83-4.51); Lymphocyte % 16.5 % (19-41); Mean Corp Hgb Conc 35.2 g/dL (32-36); Mean Corpuscular Hgb 31.3 pg (27.0-32.0); Mean Corpuscular Volume 88.9 fL (81-99); Mean Platelet Vol. 10.3 fl (6.2-12.0); Monocyte# 0.58 X10^3/uL; NRBC Flagged by Analyzer 0 % (0-5); Neutrophil % 75.1 % (47-70); Platelet Count 274 K/mm3 (150-450); RBC Distribution Width CV 13.4 % (11.6-14.6); RBC Distribution Width SD 43.4 fl (35.1-43.9); Red Blood Count 5.69 M/mm3 (4.2-5.4); White Blood Count 9.7 K/mm3 (4.4-11.0)
[2021-12-07 16:59] LABS: BUN 12 mg/dL (7-18); BUN/Creat Ratio 9.4 RATIO (10-20); Creatinine, Serum 1.27 mg/dL (0.55-1.02); EST Glomerular Filtration Rate 46 mL/min (>60); Est Glom Filt Rate - Afr Amer 56 mL/min (>60); Glucose 101 mg/dL (74-106)
[2021-12-07 17:00] LABS: AST(SGOT) 37 U/L (15-37); Alanine Aminotransfer ALT/SGPT 50 U/L (13-56); Alkaline Phosphatase 174 U/L (45-117); Anion Gap 7 (5-15); Chloride 105 mmol/L (98-107); Lipase 33 U/L (73-393); Potassium 4.8 mmol/L (3.5-5.1); Sodium Level 136 mmol/L (136-145)
[2021-12-07 17:25] VITALS: PULSE 73; RESP 15; O2SAT 97
[2021-12-07 18:03] LABS: Bacteria 0 SEEN /hpf (None Seen); Mucous, Urine 0 SEEN /hpf (<or=2+); Red Blood Cells-Urine 0 SEEN /hpf (0-5); White Blood Cells 0 SEEN /hpf (0-5)
[2021-12-07 18:05] LABS: Color, Urine Yellow (Yellow); Glucose, Dipstick Normal (Normal); Ketone-Dipstick Negative (Negative); Leukocyte Esterase-Dipstick Negative /ul (Negative); Nitrite-Dipstick Negative (Negative); Occult Blood-Urine Negative /ul (Negative); Protein-Dipstick Negative (Negative); Urine Bilirubin Dipstick Negative (Negative); Urine Clarity Clear (Clear); Urine Urobilinogen Normal (Normal)
[2021-12-07 18:17] LABS: Squamous Epithelial Cells - UA 0-5 SEEN /hpf (5-10)
[2021-12-07 19:05] VITALS: BP 124/81; PULSE 90; RESP 20; O2SAT 95
--- NOTE | 2021-12-07 19:15 | EDS_ITS ---
HPI History of Present Illness Chief Complaint: General Illness Informant: patient Onset/Context/Timing Onset: Month(s) Current Severity: Severe Narrative Narrative: Patient presents for upper abdominal pain, nausea, vomiting, constipation. This has been going on for months. She has had endoscopies and outpatient evaluations for this. She was told she has gastroparesis as well as esophagitis and reflux. She uses marijuana occasionally but has not used any for this episode. [facility] Medical History Abdominal pain Allergic rhinitis Aortic valve insufficiency Arthralgia of right hip Arthritis Asthma Back pain Bilateral flank pain Bilateral foot pain Bipolar 1 disorder Bipolar disorder Blackout Bladder disease Cancer Cardiology follow-up encounter Chest pain Chest pain Chest pain Chest pain CKD (chronic kidney disease) Conversion disorder Conversion disorder with abnormal movement Convulsion, non-epileptic COPD (chronic obstructive pulmonary disease) COPD, mild CPAP (continuous positive airway pressure) dependence Cyst Debility Depression Diarrhea Dietary restriction Difficulty chewing Dysuria Easy bruising Enlarged aorta Excessive bleeding Gastric reflux Gastritis GERD (gastroesophageal reflux disease) GERD (gastroesophageal reflux disease) Heart failure High cholesterol Hip dislocation, right History of abnormal cervical Pap smear History of atrial fibrillation History of CHF (congestive heart failure) History of echocardiogram History of edema History of hiatal hernia History of IBS History of stress test History of ulceration HLD (hyperlipidemia) HTN (hypertension) Hx of tilt table evaluation Hypertensive crisis without congestive heart failure Hypokalemia Hyponatremia Hyponatremia Hypothyroidism Injury of head and neck Intertriginous dermatitis associated with moisture Left arm swelling Leg cramps Marijuana use Migraine Migraines Morbid obesity Myositis Nausea & vomiting Nausea and vomiting Non-convulsive status epilepticus Non-rheumatic mitral regurgitation Nonrheumatic aortic (valve) insufficiency Open wound Oral candidiasis Orthostatic hypotension DAPHNE (obstructive sleep apnea) Osteoarthritis Osteoarthritis of right hip PAF (paroxysmal atrial fibrillation) Peripheral artery disease Post-menopausal Psychosis Pulmonary embolism Right hip pain Schizo NEC, chrn/exacerb Schizophrenia Seizures Shortness of breath on exertion Smoker Stroke Stroke/cerebrovascular accident Syncope Thyroid disease TIA (transient ischemic attack) Tobacco abuse Venous insufficiency of both lower extremities Walker as ambulation aid Wears dentures Home Medications levothyroxine 50 mcg tablet 50 mcg PO DAILY #90 tab 01/03/21 [Rx Last Taken Unknown] melatonin 10 mg capsule 10 mg PO QHS #90 cap 01/19/21 [Rx Last Taken Unknown] lidocaine 5 % topical patch 1 patch TOPICAL DAILY #30 ea 03/09/21 [Rx Last Taken Unknown] polyethylene glycol 3350 17 gram/dose oral powder 17 g PO BID PRN 04/07/21 [History Last Taken Unknown] nifedipine 60 mg tablet,extended release 24 hr 30 mg PO BID #90 tab 04/08/21 [Rx Last Taken Unknown] hydralazine 50 mg PO TID 05/23/21 [History Last Taken Unknown] spironolactone 25 mg PO QHS 05/23/21 [History Last Taken Unknown] azelastine 205.5 mcg (0.15 %) nasal spray 1 spray INTRANASAL BID #30 ml 07/11/21 [Rx Last Taken Unknown] losartan 100 mg tablet 100 mg PO DAILY #90 tab 07/15/21 [Rx Last Taken Unknown] atorvastatin 40 mg tablet 40 mg PO QHS #90 tab 08/01/21 [Rx Last Taken Unknown] budesonide-formoterol HFA 160 mcg-4.5 mcg/actuation aerosol inhaler 2 puff INHALATION BID #10.2 g 08/25/21 [Rx Last Taken Unknown] loratadine 10 mg tablet 10 mg PO DAILY #90 tab 08/25/21 [Rx Last Taken Unknown] montelukast 10 mg tablet 10 mg PO QHS #90 tab 09/26/21 [Rx Last Taken Unknown] furosemide 20 mg tablet 20 mg PO BID #60 tab 10/21/21 [Rx Last Taken Unknown] fluticasone propionate 50 mcg/actuation nasal spray,suspension 1 spray NASAL BID #16 g 10/25/21 [Rx Last Taken Unknown] albuterol sulfate 90 mcg/actuation aerosol inhaler 2 puff INHALATION Q4H PRN #8.5 g 11/23/21 [Rx Last Taken Unknown] guaifenesin 1,200 mg tablet, extended release 12 hr 600 mg PO BID #60 tab 11/23/21 [Rx Last Taken Unknown] tiotropium bromide 1.25 mcg/actuation mist for inhalation 2 puff INHALATION DAILY #4 g 11/23/21 [Rx Last Taken Unknown] cholecalciferol (vitamin D3) 1,250 mcg (50,000 unit) capsule 50,000 unit PO FR #12 cap 11/24/21 [Rx Last Taken Unknown] ondansetron 4 mg disintegrating tablet 4 mg PO Q8H PRN #14 tab 11/29/21 [Rx Last Taken Unknown] nitroglycerin 0.4 mg sublingual tablet 0.4 mg SUBLINGUAL PRN PRN #25 tab 12/05/21 [Rx Last Taken Unknown] aspirin 81 mg PO DAILY 12/07/21 [History Last Taken Unknown] omeprazole 40 mg PO DAILY 12/07/21 [History Last Taken Unknown] prednisolone acetate 1 drp EACH EYE Q4H PRN PRN 12/07/21 [History Last Taken Unknown] sucralfate 1 g PO BID 12/07/21 [History Last Taken Unknown] Allergy/AdvReac Type Severity Reaction Status Date / Time adhesive tape Allergy Rash Verified 12/07/21 15:28 atropine sulfate Allergy Hives Verified 12/07/21 15:28 [From ] codeine phosphate Allergy breathing Verified 12/07/21 15:28 [From Tylenol-Codeine #3] problems divalproex sodium Allergy Unknown Verified 12/07/21 15:28 [From Depakote] hydromorphone HCl Allergy facial Verified 12/07/21 15:28 [From Dilaudid] blisters,itching hyoscyamine sulfate Allergy Hives Verified 12/07/21 15:28 [From ] Iodinated Contrast Media Allergy breathing Verified 12/07/21 15:28 [Iodinated Contrast Media - problems IV Dye] and my bp went up latex Allergy Rash Verified 12/07/21 15:28 pantoprazole sodium Allergy Rash Verified 12/07/21 15:28 [From Protonix] phenobarbital [From ] Allergy Hives Verified 12/07/21 15:28 promethazine HCl Allergy Anaphylaxis Verified 12/07/21 15:28 [From Phenergan] ramipril Allergy Unknown Verified 12/07/21 15:28 scopolamine hydrobromide Allergy Hives Verified 12/07/21 15:28 [From ] tramadol Allergy Itching Verified 12/07/21 15:28 ziprasidone mesylate Allergy Unknown Verified 12/07/21 15:28 [From Geodon] Sulfa (Sulfonamide AdvReac Vomiting Verified 12/07/21 15:28 Antibiotics) ziprasidone HCl [From Geodon] AdvReac tremors Verified 12/07/21 15:28 VIDODIN TUSS Allergy Itching Uncoded 12/07/21 15:28 Amlodipine AdvReac Vomiting Uncoded 12/07/21 15:28 Family History Sister Myocardial infarction Colon cancer Mother Hypertension Arthritis Brain aneurysm Sister Colon cancer Surgical History bladder sling History of esophagogastroduodenoscopy (EGD) History of laparoscopic cholecystectomy History of uterine suspension procedure Hx of cholecystectomy Hx of colonoscopy left foot S/P carpal tunnel release Social History household members: none number of children: 4 current occupational status: unemployed history of recent travel: No Smoking Status: Current every day smoker tobacco type: cigarettes Tobacco: How many years used: 26 alcohol intake: never substance use type: does not use caffeine: Yes Type: coffee what type of physical activity do you participate in: none seatbelt use: never do you feel safe at home: Yes additional social history: single ROS ROS ED Constitutional Constitutional ED: Denies chills or fever(s) Eyes Eyes: Denies change in vision ENT ENT ED: Denies ear pain Cardiovascular Cardiovascular: Denies chest pain Respiratory/Chest Respiratory/Chest: Denies dyspnea Gastrointestinal Gastrointestinal: Reports abdominal pain, constipation, nausea and vomiting Genitourinary Genitourinary ED: Denies dysuria Musculoskeletal Musculoskeletal: Denies myalgias Integumentary Denies rash Neurologic Neurologic: Denies headache(s) Psychiatric Psychiatric: Denies depression Endocrine Endocrinology: Denies polyuria Allergic/Immunologic Allergic/Immunologic ED: Denies urticaria EXAM Physical Exam Const Vital Signs: 12/07/21 15:21 12/07/21 15:30 12/07/21 15:34 Temperature 98.1 F Temperature Source Temporal Pulse Rate 96 90 Respiratory Rate 20 H 16 Respiratory Effort Normal Respiratory Pattern Normal Blood Pressure 145/96 H 130/92 H Blood Pressure Mean 112 104 Pulse Ox 98 98 Oxygen Delivery Method Room Air Room Air 12/07/21 17:25 12/07/21 19:05 Temperature Temperature Source Pulse Rate 73 90 Respiratory Rate 15 20 H Respiratory Effort Respiratory Pattern Blood Pressure 124/81 H Blood Pressure Mean 95 Pulse Ox 97 95 Oxygen Delivery Method Room Air Room Air Positive well nourished and well developed General Appearance ED: well developed HEENT Negative for trauma Eyes EOMs intact bilaterally Neck supple Resp normal respiratory effort Cardio regular rate GI normal to inspection, nondistended, normoactive bowel sounds and non-tender Palpation: soft Back/Spine no CVA tenderness Extremity normal to inspection Neuro oriented x3 Sensorium / Orientation: alert Psych Mood & Affect: tearful Skin no rashes or lesions noted MDM MDM MDM Narrative Medical decision making narrative: Patient had fluids, GI cocktail, Zofran. No further vomiting. Chest x-ray and abdominal x-ray showed a nonobstructive bowel gas pattern. Labs below were reviewed. Patient has had an extensive work-up. She does not appear to have any complications. I will encourage her to follow-up as an outpatient or return for any new or worsening issues. Impression #1 nausea and vomiting Impression #2 chronic abdominal pain Lab Data Attestation: I reviewed the patient's lab results. Labs: Laboratory Results - last 24 hr 12/07/21 12/07/21 12/07/21 15:50 15:50 17:58 WBC 9.7 RBC 5.69 H Hgb 17.8 H Hct 50.6 H MCV 88.9 MCH 31.3 MCHC 35.2 RDW Std Deviation 43.4 RDW Coeff of Yonathan 13.4 Plt Count 274 MPV 10.3 Immature Gran % (Auto) 0.300 Neut % (Auto) 75.1 H Lymph % (Auto) 16.5 L [place] % (Auto) 6.0 Eos % (Auto) 1.8 Baso % (Auto) 0.3 Absolute Neuts (auto) 7.3 Absolute Lymphs (auto) 1.61 Nucleated RBC % 0 Sodium 136 Potassium 4.8 Chloride 105 Carbon Dioxide 24.0 Anion Gap 7 BUN 12 Creatinine 1.27 H Estim Creat Clear Calc 42.20 Est GFR (MDRD) Af Amer 56 L Est GFR (MDRD) Non-Af 46 L BUN/Creatinine Ratio 9.4 L Glucose 101 Calcium 10.0 Total Bilirubin 0.60 AST 37 ALT 50 Alkaline Phosphatase 174 H Total Protein 8.0 Albumin 4.0 Globulin 4.0 Albumin/Globulin Ratio 1.0 Lipase 33 L Urine Color Yellow Urine Clarity Clear Urine pH 6.0 Ur Specific [place] 1.010 Urine Protein Negative Urine Glucose (UA) Normal Urine Ketones Negative Urine Occult Blood Negative Urine Nitrite Negative Urine Bilirubin Negative Urine Urobilinogen Normal Ur Leukocyte Esterase Negative Urine RBC 0 SEEN Urine WBC 0 SEEN Ur Squamous Epith Cells 0-5 SEEN Urine Bacteria 0 SEEN Urine Mucus 0 SEEN Radiography Diagnostic Testing: Clinical Impression(s) from Imaging Studies Acute Abdomen Series 12/07/21 15:38 IMPRESSION: Nonobstructive bowel gas pattern. Electronically Signed: Trav Paul MD ([place]) at 16:52 EST Reading Location ID and State: [place] , Service support , Discharge Plan Triage Chief Complaint: General Illness ED Provider: Victor M Lopez Dx/Rx/DC Orders Prescriptions: No Action lidocaine 5 % adhesive patch,medicated 1 patch topical DAILY Qty: 30 RF: 1 nitroglycerin 0.4 mg tablet, sublingual 0.4 mg SUBLINGUAL PRN PRN (Reason: CHEST PAIN) Qty: 25 RF: 3 polyethylene glycol 3350 [Miralax] 17 gram/dose powder 17 g PO BID PRN (Reason: Constipation) RF: 0 azelastine 205.5 mcg (0.15 %) spray,non-aerosol 1 spray intranasal BID Qty: 30 RF: 11 spironolactone 25 mg tablet 25 mg PO QHS RF: 0 hydralazine 50 mg tablet 50 mg PO TID RF: 0 sucralfate 1 gram tablet 1 g PO BID RF: 0 omeprazole 40 mg capsule,delayed release(DR/EC) 40 mg PO DAILY RF: 0 aspirin 81 mg tablet,delayed release (DR/EC) 81 mg PO DAILY RF: 0 prednisolone acetate 1 % drops,suspension 1 drp EACH EYE Q4H PRN PRN (Reason: Inflammation) RF: 0 levothyroxine 50 mcg tablet 50 mcg PO DAILY Qty: 90 RF: 3 melatonin 10 mg capsule 10 mg PO QHS Qty: 90 RF: 3 nifedipine 60 mg tablet extended release 24hr 30 mg PO BID Qty: 90 RF: 3 losartan 100 mg tablet 100 mg PO DAILY Qty: 90 RF: 1 atorvastatin 40 mg tablet 40 mg PO QHS Qty: 90 RF: 1 budesonide-formoterol [Symbicort] 160-4.5 mcg/actuation HFA aerosol inhaler 2 puff INHALATION BID Qty: 10.2 RF: 3 loratadine 10 mg tablet 10 mg PO DAILY Qty: 90 RF: 1 montelukast [Singulair] 10 mg tablet 10 mg PO QHS Qty: 90 RF: 1 furosemide 20 mg tablet 20 mg PO BID Qty: 60 RF: 1 fluticasone propionate 50 mcg/actuation spray,suspension 1 spray NASAL BID Qty: 16 RF: 1 albuterol sulfate 90 mcg/actuation HFA aerosol inhaler 2 puff inhalation Q4H PRN (Reason: shortness of breath or wheezing) Qty: 8.5 RF: 6 Spiriva Respimat 1.25 mcg/actuation mist 2 puff inhalation DAILY Qty: 4 RF: 3 guaifenesin 1,200 mg tablet extended release 12hr 600 mg PO BID Qty: 60 RF: 1 cholecalciferol (vitamin D3) 1,250 mcg (50,000 unit) capsule 50,000 unit PO FR Qty: 12 RF: 1 ondansetron 4 mg tablet,disintegrating 4 mg PO Q8H PRN (Reason: nausea and vomiting) Qty: 14 RF: 0 Primary Care Provider: Scarlet Navarro
[2021-12-07 19:27] VITALS: BP 111/85; PULSE 80
== END 2021-12-07 19:28 | disposition home or self-care (01) ==
PROVIDERS: Emergency Provider Emergency Medicine; PCP Internal Medicine; Visit Provider Emergency Medicine
DX: R11.2 Nausea with vomiting, unspecified (principal); F20.9 Schizophrenia, unspecified; J44.9 Chronic obstructive pulmonary disease, unspecified; I13.0 Hypertensive heart and chronic kidney disease with heart failure and stage 1 through stage 4 chronic kidney disease, or unspecified chronic kidney disease; I50.9 Heart failure, unspecified; F31.9 Bipolar disorder, unspecified; I48.0 Paroxysmal atrial fibrillation; E66.01 Morbid (severe) obesity due to excess calories; N18.31 Chronic kidney disease, stage 3a; R10.10 Upper abdominal pain, unspecified; K59.00 Constipation, unspecified; K31.84 Gastroparesis; F17.210 Nicotine dependence, cigarettes, uncomplicated; F12.90 Cannabis use, unspecified, uncomplicated; E78.00 Pure hypercholesterolemia, unspecified; E78.5 Hyperlipidemia, unspecified; K21.9 Gastro-esophageal reflux disease without esophagitis; E03.9 Hypothyroidism, unspecified; I34.0 Nonrheumatic mitral (valve) insufficiency; G47.33 Obstructive sleep apnea (adult) (pediatric); Z78.0 Asymptomatic menopausal state; Z86.711 Personal history of pulmonary embolism; Z86.73 Personal history of transient ischemic attack (TIA), and cerebral infarction without residual deficits; Z79.899 Other long term (current) drug therapy; Z79.82 Long term (current) use of aspirin; G89.29 Other chronic pain
CPT/HCPCS: 36415; 74022; 80048; 80053; 81001; 82570; 83690; 84156; 85025; 96361; 96374; 99283; J7030; J2405

== ENCOUNTER 2021-12-26 12:27 | Emergency (ER) | payer MEDICAID, SELFPAY ==
[2021-12-26 12:28] VITALS: TEMP 36.8; BMI 46.0
[2021-12-26 12:36] VITALS: BP 129/97; PULSE 98; RESP 22; O2SAT 98
--- NOTE | 2021-12-26 12:53 | EKG12_ITS ---
Test Reason : Blood Pressure : / mmHG Vent. Rate : 098 BPM Atrial Rate : 098 BPM P-R Int : 160 ms QRS Dur : 080 ms QT Int : 340 ms P-R-T Axes : 030 -25 029 degrees QTc Int : 434 ms Normal sinus rhythm Poor R wave progression Anterior TN, age undetermined, cannot be excluded Confirmed by CHARLENE SPEARS, JAZMYNE ([id number]), photo editor ANAND HSIEH ([id number]) on 12/29/2021 9:47:16 AM Referred By: Confirmed By:JAZMYNE CHANG MD
--- NOTE | 2021-12-26 12:53 | RAD_ITS ---
STUDY: X-RAY CHEST REASON FOR EXAM: Female, 56 years old. chest pain TECHNIQUE: AP COMPARISON: 09/01/2021 FINDINGS: EKG leads project over the chest. The lungs are clear and expanded. There is no demonstrated pleural abnormality. There is mild cardiac enlargement. Normal mediastinum and rosita. Normal visualized pulmonary arteries. Normal visualized aortic arch and descending thoracic aorta. Normal visualized thoracic spine. Normal visualized ribs, clavicles, and shoulders. There is no demonstrated abnormality of the visualized soft tissue structures of the upper abdomen. RAD/Chest 1 View (Portable) IMPRESSION: Stable, nonacute portable x-ray examination of the chest. Electronically Signed: Trav Paul MD ([place]) at 13:34 EDT ,
--- NOTE | 2021-12-26 13:02 | EDS_ITS ---
HPI History of Present Illness Chief Complaint: Chest Pain Informant: patient Onset/Context/Timing Onset: Today and Hours (1.5) Activity at onset: sudden Timing: Continuous Quality: Positive for Heaviness and Pressure Location: Substernal and - (Left wrist) Worsened By: Nothing Relieved By: Nothing Associated Symptoms: Positive for Nausea, Cough and Lightheadedness; Negative for Vomiting, Diaphoresis, Dyspnea, Fever, Acid Reflux and Palpitations Narrative Narrative: Patient presents with chest pain that began approximately 90 minutes prior to arrival. Patient describes as a heaviness. Patient states it felt like she had a crushing sensation when it began. Patient states now it just feels like pressure. Patient states it is over the substernal area. Patient also admits to some pain in her left wrist area. Patient states nothing makes it worse and nothing makes it better. Patient took nitroglycerin at home and it by EMS without any relief. Patient took aspirin prior to arrival. Patient also admits to some dizziness. Patient describes this as a moving sensation. Patient admits to nausea but denies any vomiting. Patient denies any fevers or chills. Patient denies any shortness of breath. CVD Risk Factors: Positive for Hypertension, Hypercholesterolemia and Smoking PE Risk Factors: Negative for Recent Travel/Surgery, Recent Immobilization, Prior DVT or PE, Cancer and OCP + Smoking + >/=35 PFSH PFSH Medical History Abdominal pain Allergic rhinitis Aortic valve insufficiency Arthralgia of right hip Arthritis Asthma Back pain Bilateral flank pain Bilateral foot pain Bipolar 1 disorder Bipolar disorder Blackout Bladder disease Cancer Cardiology follow-up encounter Chest pain Chest pain Chest pain Chest pain CKD (chronic kidney disease) Conversion disorder Conversion disorder with abnormal movement Convulsion, non-epileptic COPD (chronic obstructive pulmonary disease) COPD, mild CPAP (continuous positive airway pressure) dependence Cyst Debility Depression Diarrhea Dietary restriction Difficulty chewing Dysuria Easy bruising Enlarged aorta Excessive bleeding Gastric reflux Gastritis GERD (gastroesophageal reflux disease) GERD (gastroesophageal reflux disease) Heart failure High cholesterol Hip dislocation, right History of abnormal cervical Pap smear History of atrial fibrillation History of CHF (congestive heart failure) History of echocardiogram History of edema History of hiatal hernia History of IBS History of stress test History of ulceration HLD (hyperlipidemia) HTN (hypertension) Hx of tilt table evaluation Hypertensive crisis without congestive heart failure Hypokalemia Hyponatremia Hyponatremia Hypothyroidism Injury of head and neck Intertriginous dermatitis associated with moisture Left arm swelling Leg cramps Marijuana use Migraine Migraines Morbid obesity Myositis Nausea & vomiting Nausea and vomiting Non-convulsive status epilepticus Non-rheumatic mitral regurgitation Nonrheumatic aortic (valve) insufficiency Open wound Oral candidiasis Orthostatic hypotension DAPHNE (obstructive sleep apnea) Osteoarthritis Osteoarthritis of right hip PAF (paroxysmal atrial fibrillation) Peripheral artery disease Post-menopausal Psychosis Pulmonary embolism Right hip pain Schizo NEC, chrn/exacerb Schizophrenia Seizures Shortness of breath on exertion Smoker Stroke Stroke/cerebrovascular accident Syncope Thyroid disease TIA (transient ischemic attack) Tobacco abuse Venous insufficiency of both lower extremities Walker as ambulation aid Wears dentures Home Medications nifedipine 60 mg tablet,extended release 24 hr 30 mg PO BID #90 tab 04/08/21 [Rx Last Taken Unknown] spironolactone 25 mg PO QHS 05/23/21 [History Last Taken Unknown] azelastine 205.5 mcg (0.15 %) nasal spray 1 spray INTRANASAL BID #30 ml 07/11/21 [Rx Last Taken Unknown] atorvastatin 40 mg tablet 40 mg PO QHS #90 tab 08/01/21 [Rx Last Taken Unknown] loratadine 10 mg tablet 10 mg PO DAILY #90 tab 08/25/21 [Rx Last Taken Unknown] montelukast 10 mg tablet 10 mg PO QHS #90 tab 09/26/21 [Rx Last Taken Unknown] albuterol sulfate 90 mcg/actuation aerosol inhaler 2 puff INHALATION Q4H PRN #8.5 g 11/23/21 [Rx Last Taken Unknown] guaifenesin 1,200 mg tablet, extended release 12 hr 600 mg PO BID #60 tab 11/23/21 [Rx Last Taken Unknown] tiotropium bromide 1.25 mcg/actuation mist for inhalation 2 puff INHALATION DAILY #4 g 11/23/21 [Rx Last Taken Unknown] cholecalciferol (vitamin D3) 1,250 mcg (50,000 unit) capsule 50,000 unit PO FR #12 cap 11/24/21 [Rx Last Taken Unknown] ondansetron 4 mg disintegrating tablet 4 mg PO Q8H PRN #14 tab 11/29/21 [Rx Last Taken Unknown] nitroglycerin 0.4 mg sublingual tablet 0.4 mg SUBLINGUAL PRN PRN #25 tab 12/05/21 [Rx Last Taken Unknown] omeprazole 40 mg PO DAILY 12/07/21 [History Last Taken Unknown] prednisolone acetate 1 drp EACH EYE Q4H PRN PRN 12/07/21 [History Last Taken Unknown] aspirin 81 mg tablet,delayed release 81 mg PO DAILY #90 tab 12/16/21 [Rx Last Taken Unknown] melatonin 10 mg capsule 10 mg PO QHS #90 cap 12/16/21 [Rx Last Taken Unknown] fluticasone propionate 50 mcg/actuation nasal spray,suspension 1 spray NASAL BID #16 g 12/19/21 [Rx Last Taken Unknown] hydralazine 50 mg tablet 50 mg PO TID #270 tab 12/19/21 [Rx Last Taken Unknown] levothyroxine 50 mcg tablet 50 mcg PO DAILY #90 tab 12/19/21 [Rx Last Taken Unknown] losartan 100 mg tablet 100 mg PO DAILY #90 tab 12/19/21 [Rx Last Taken Unknown] budesonide-formoterol HFA 160 mcg-4.5 mcg/actuation aerosol inhaler 2 puff INHALATION BID #10.2 g 12/22/21 [Rx Last Taken Unknown] furosemide 20 mg tablet 20 mg PO BID #60 tab 12/22/21 [Rx Last Taken Unknown] sucralfate 1 gram tablet 1 g PO TID #90 tab 12/22/21 [Rx Last Taken Unknown] lidocaine 1 patch TOPICAL DAILY PRN 12/26/21 [History Last Taken Unknown] polyethylene glycol 3350 17 gram/dose oral powder 17 g PO BID PRN #238 g 12/26/21 [Rx Last Taken Unknown] Allergy/AdvReac Type Severity Reaction Status Date / Time adhesive tape Allergy Rash Verified 12/26/21 12:32 atropine sulfate Allergy Hives Verified 12/26/21 12:32 [From ] codeine phosphate Allergy breathing Verified 12/26/21 12:32 [From Tylenol-Codeine #3] problems divalproex sodium Allergy Unknown Verified 12/26/21 12:32 [From Depakote] hydromorphone HCl Allergy facial Verified 12/26/21 12:32 [From Dilaudid] blisters,itching hyoscyamine sulfate Allergy Hives Verified 12/26/21 12:32 [From ] Iodinated Contrast Media Allergy breathing Verified 12/26/21 12:32 [Iodinated Contrast Media - problems IV Dye] and my bp went up latex Allergy Rash Verified 12/26/21 12:32 pantoprazole sodium Allergy Rash Verified 12/26/21 12:32 [From Protonix] phenobarbital [From ] Allergy Hives Verified 12/26/21 12:32 promethazine HCl Allergy Anaphylaxis Verified 12/26/21 12:32 [From Phenergan] ramipril Allergy Unknown Verified 12/26/21 12:32 scopolamine hydrobromide Allergy Hives Verified 12/26/21 12:32 [From ] tramadol Allergy Itching Verified 12/26/21 12:32 ziprasidone mesylate Allergy Unknown Verified 12/26/21 12:32 [From Geodon] Sulfa (Sulfonamide AdvReac Vomiting Verified 12/26/21 12:32 Antibiotics) ziprasidone HCl [From Geodon] AdvReac tremors Verified 12/26/21 12:32 VIDODIN TUSS Allergy Itching Uncoded 12/26/21 12:32 Amlodipine AdvReac Vomiting Uncoded 12/26/21 12:32 Family History Sister Myocardial infarction Colon cancer Mother Hypertension Arthritis Brain aneurysm Sister Colon cancer Surgical History bladder sling History of esophagogastroduodenoscopy (EGD) History of laparoscopic cholecystectomy History of uterine suspension procedure Hx of cholecystectomy Hx of colonoscopy left foot S/P carpal tunnel release Social History household members: none number of children: 4 current occupational status: unemployed history of recent travel: No Smoking Status: Current every day smoker tobacco type: cigarettes Tobacco: How many years used: 26 alcohol intake: never substance use type: does not use caffeine: Yes Type: coffee what type of physical activity do you participate in: none seatbelt use: never do you feel safe at home: Yes additional social history: single ROS ROS ED Constitutional Constitutional ED: Denies chills or fever(s) Eyes Eyes: Denies blurry vision or change in vision ENT ENT ED: Denies rhinorrhea or sore throat Cardiovascular Cardiovascular: Reports chest pain and palpitations Respiratory/Chest Respiratory/Chest: Reports cough; Denies dyspnea Gastrointestinal Gastrointestinal: Reports nausea; Denies abdominal pain or vomiting Genitourinary Genitourinary ED: Denies dysuria or hematuria Musculoskeletal Musculoskeletal: Denies back pain or neck pain Integumentary Denies abscess or rash Neurologic Neurologic: Reports headache(s); Denies weakness Allergic/Immunologic Allergic/Immunologic ED: Denies mouth swelling or urticaria EXAM Physical Exam Const Vital Signs: 12/26/21 12:28 12/26/21 12:33 12/26/21 12:36 Temperature 98.2 F Temperature Source Temporal Pulse Rate 98 Respiratory Rate 22 H Respiratory Effort Normal Non-Labored Respiratory Pattern Normal Blood Pressure 129/97 H Blood Pressure Mean 107 Pulse Ox 98 Oxygen Delivery Method Room Air 12/26/21 13:01 12/26/21 14:38 12/26/21 15:12 Temperature Temperature Source Pulse Rate 80 78 Respiratory Rate 16 20 H Respiratory Effort Respiratory Pattern Blood Pressure 134/77 H 127/79 H Blood Pressure Mean 96 95 Pulse Ox 96 94 Oxygen Delivery Method Room Air Room Air Room Air Positive well nourished, well developed and obese General Appearance ED: well developed and NAD Nutritional Appearance: obese HEENT normocephalic and atraumatic Eyes PERRL and EOMs intact bilaterally Neck supple and no JVD Chest Wall palpation of chest normal Resp normal respiratory effort and clear to auscultation bilaterally Effort and Inspection: Negative for respiratory distress Cardio regular rate, regular rhythm and no murmurs GI normal to inspection, nondistended, normoactive bowel sounds, soft to palpation, non-tender and non-distended Extremity normal to inspection General Extremety ED: Negative for edema or tenderness General Extremity: Negative for edema Neuro oriented x3, CN's II-XII intact bilaterally and no sensory deficits noted Sensorium / Orientation: awake and alert Motor Exam: strength 5/5 throughout Psych mental status grossly normal Heart Score History: Slightly/Non-Suspicious ECG: Normal Age: >45 - <65 years Risk Factors: >/= 3 Risk Factors or History of CAD Troponin: </= Normal Limit Score: 3 MDM MDM MDM Narrative Medical decision making narrative: Patient was given 1 sublingual nitroglycerin and 4 baby aspirin by EMS. EKG was obtained. On my interpretation, it showed a normal sinus rhythm with a rate of 98. CO interval, QRS interval, and QTc intervals were all normal. [place] was normal. There are no acute ST or T wave changes. Portable 1 view chest x-ray was obtained. On my interpretation, lung jacobsen are clear. There is normal cardiac silhouette. Bony thorax is normal. There is no acute process noted. Radiologist also interpreted the x-ray and agrees. CBC was obtained and was within normal limits. Basic metabolic profile was obtained and was essentially within normal limits. Initial high-sensitivity troponin was normal at 8. 2-hour repeat high-sensitivity troponin was normal at 6. Patient was advised of her findings. Patient has a HEART score of 3. Patient was advised that this is low risk for acute cardiac event. Patient was instructed to follow-up with her primary care physician for further evaluation as an outpatient. Patient understands and is agreeable with the plan. All questions were answered. Lab Data Attestation: I reviewed the patient's lab results. Labs: Laboratory Results - last 24 hr 12/26/21 12/26/21 12/26/21 12:30 12:30 14:12 WBC 9.1 RBC 5.08 Hgb 15.7 H Hct 45.6 MCV 89.8 MCH 30.9 MCHC 34.4 RDW Std Deviation 43.7 RDW Coeff of Yonathan 13.2 Plt Count 278 MPV 10.5 Immature Gran % (Auto) 0.300 Neut % (Auto) 71.8 H Lymph % (Auto) 17.1 L [place] % (Auto) 8.2 Eos % (Auto) 2.4 Baso % (Auto) 0.2 Absolute Neuts (auto) 6.5 Absolute Lymphs (auto) 1.55 Nucleated RBC % 0 Sodium 140 Potassium 3.3 L Chloride 109 H Carbon Dioxide 26.0 Anion Gap 5 BUN 13 Creatinine 1.08 H Estim Creat Clear Calc 49.63 Est GFR (MDRD) Af Amer 67 Est GFR (MDRD) Non-Af 55 L BUN/Creatinine Ratio 12.0 Glucose 108 H Calcium 9.4 Troponin I High Sens 8 6 Radiography Chest X-Ray - ED: 1 View, Read by ED Physician, Read by Radiologist and No Acute Disease Diagnostic Testing: Clinical Impression(s) from Imaging Studies Chest X-Ray 12/26/21 12:53 IMPRESSION: Stable, nonacute portable x-ray examination of the chest. Electronically Signed: Trav Paul MD ([place]) at 13:34 EDT Reading Location ID and State: / [place] , Service support , EKG Initial EKG: Attestation: I personally reviewed and interpreted this EKG as follows: Interpretation: Sinus Rhythm (98) and No Acute Injury Pattern Discharge Plan Triage Chief Complaint: Chest Pain Other Complaint: Dizziness ED Provider: Facundo Nolen Dx/Rx/DC Orders Clinical Impression: Chest pain Instructions: ED Chest Pain, Uncertain Cause Prescriptions: No Action nitroglycerin 0.4 mg tablet, sublingual 0.4 mg SUBLINGUAL PRN PRN (Reason: CHEST PAIN) Qty: 25 RF: 3 azelastine 205.5 mcg (0.15 %) spray,non-aerosol 1 spray intranasal BID Qty: 30 RF: 11 spironolactone 25 mg tablet 25 mg PO QHS RF: 0 omeprazole 40 mg capsule,delayed release(DR/EC) 40 mg PO DAILY RF: 0 prednisolone acetate 1 % drops,suspension 1 drp EACH EYE Q4H PRN PRN (Reason: Inflammation) RF: 0 lidocaine 5 % adhesive patch,medicated 1 patch topical DAILY PRN (Reason: Pain) RF: 0 nifedipine 60 mg tablet extended release 24hr 30 mg PO BID Qty: 90 RF: 3 atorvastatin 40 mg tablet 40 mg PO QHS Qty: 90 RF: 1 loratadine 10 mg tablet 10 mg PO DAILY Qty: 90 RF: 1 montelukast [Singulair] 10 mg tablet 10 mg PO QHS Qty: 90 RF: 1 albuterol sulfate 90 mcg/actuation HFA aerosol inhaler 2 puff inhalation Q4H PRN (Reason: shortness of breath or wheezing) Qty: 8.5 RF: 6 Spiriva Respimat 1.25 mcg/actuation mist 2 puff inhalation DAILY Qty: 4 RF: 3 guaifenesin 1,200 mg tablet extended release 12hr 600 mg PO BID Qty: 60 RF: 1 cholecalciferol (vitamin D3) 1,250 mcg (50,000 unit) capsule 50,000 unit PO FR Qty: 12 RF: 1 ondansetron 4 mg tablet,disintegrating 4 mg PO Q8H PRN (Reason: nausea and vomiting) Qty: 14 RF: 0 aspirin 81 mg tablet,delayed release (DR/EC) 81 mg PO DAILY Qty: 90 RF: 1 melatonin 10 mg capsule 10 mg PO QHS Qty: 90 RF: 3 levothyroxine 50 mcg tablet 50 mcg PO DAILY Qty: 90 RF: 3 losartan 100 mg tablet 100 mg PO DAILY Qty: 90 RF: 1 fluticasone propionate 50 mcg/actuation spray,suspension 1 spray NASAL BID Qty: 16 RF: 1 hydralazine 50 mg tablet 50 mg PO TID Qty: 270 RF: 3 budesonide-formoterol [Symbicort] 160-4.5 mcg/actuation HFA aerosol inhaler 2 puff INHALATION BID Qty: 10.2 RF: 3 furosemide 20 mg tablet 20 mg PO BID Qty: 60 RF: 1 sucralfate 1 gram tablet 1 g PO TID Qty: 90 RF: 0 polyethylene glycol 3350 [Miralax] 17 gram/dose powder 17 g PO BID PRN (Reason: Constipation) Qty: 238 RF: 1 Primary Care Provider: Scarlet Navarro Referrals: Scarlet Navarro MD [Primary Care Provider] - 3-5 Days Disposition Disposition: Home, Self Care
[2021-12-26 13:20] LABS: Absolute Lymphocyte Count 1.55 X10^3/uL (0.83-4.51); Absolute Neutrophil Count 6.5 X10^3/uL (2.0-7.7); Basophil# 0.02 X10^3/uL; Basophil% 0.2 % (0-1); Eosinophil# 0.22 X10^3/uL; Eosinophils% 2.4 % (0-5); Hematocrit 45.6 % (37-47); Hemoglobin 15.7 g/dL (12.0-15.0); Lymphocyte # 1.55 X10^3/ul (0.83-4.51); Lymphocyte % 17.1 % (19-41); Mean Corp Hgb Conc 34.4 g/dL (32-36); Mean Corpuscular Hgb 30.9 pg (27.0-32.0); Mean Corpuscular Volume 89.8 fL (81-99); Mean Platelet Vol. 10.5 fl (6.2-12.0); Monocyte# 0.74 X10^3/uL; Monocyte% 8.2 % (0-10); NRBC Flagged by Analyzer 0 % (0-5); Neutrophil % 71.8 % (47-70); Platelet Count 278 K/mm3 (150-450); RBC Distribution Width CV 13.2 % (11.6-14.6); RBC Distribution Width SD 43.7 fl (35.1-43.9); Red Blood Count 5.08 M/mm3 (4.2-5.4); White Blood Count 9.1 K/mm3 (4.4-11.0)
[2021-12-26 13:34] LABS: Anion Gap 5 (5-15); BUN 13 mg/dL (7-18); Calcium,Total 9.4 mg/dL (8.5-10.1); Chloride 109 mmol/L (98-107); Creatinine, Serum 1.08 mg/dL (0.55-1.02); EST Glomerular Filtration Rate 55 mL/min (>60); Est Glom Filt Rate - Afr Amer 67 mL/min (>60); Estimated Creatinine Clearance 49.63 ml/min; Glucose 108 mg/dL (74-106); Potassium 3.3 mmol/L (3.5-5.1); Sodium Level 140 mmol/L (136-145); Troponin-I HS 8 pg/mL (3.0-54.0)
[2021-12-26 14:35] LABS: Troponin-I HS 6 pg/mL (3.0-54.0)
[2021-12-26 14:38] VITALS: BP 134/77; PULSE 80; RESP 16; O2SAT 96
[2021-12-26 15:12] VITALS: BP 127/79; PULSE 78; RESP 20; O2SAT 94
[2021-12-26 16:12] VITALS: BP 129/64; PULSE 82; RESP 20; O2SAT 98
== END 2021-12-26 16:14 | disposition home or self-care (01) ==
PROVIDERS: Emergency Provider Emergency Medicine; PCP Internal Medicine; Visit Provider Emergency Medicine
DX: R07.89 Other chest pain (principal); F20.9 Schizophrenia, unspecified; J44.9 Chronic obstructive pulmonary disease, unspecified; I13.0 Hypertensive heart and chronic kidney disease with heart failure and stage 1 through stage 4 chronic kidney disease, or unspecified chronic kidney disease; I50.9 Heart failure, unspecified; F31.9 Bipolar disorder, unspecified; I73.9 Peripheral vascular disease, unspecified; I48.0 Paroxysmal atrial fibrillation; E66.01 Morbid (severe) obesity due to excess calories; Z68.42 Body mass index [BMI] 45.0-49.9, adult; E78.00 Pure hypercholesterolemia, unspecified; F17.210 Nicotine dependence, cigarettes, uncomplicated; N18.9 Chronic kidney disease, unspecified; E78.5 Hyperlipidemia, unspecified; M25.532 Pain in left wrist; K21.9 Gastro-esophageal reflux disease without esophagitis; E03.9 Hypothyroidism, unspecified; G47.33 Obstructive sleep apnea (adult) (pediatric); Z86.73 Personal history of transient ischemic attack (TIA), and cerebral infarction without residual deficits; Z86.711 Personal history of pulmonary embolism; Z78.0 Asymptomatic menopausal state; I34.0 Nonrheumatic mitral (valve) insufficiency; G43.909 Migraine, unspecified, not intractable, without status migrainosus; Z87.19 Personal history of other diseases of the digestive system; Z79.82 Long term (current) use of aspirin; Z79.899 Other long term (current) drug therapy; R42 Dizziness and giddiness
CPT/HCPCS: 71045; 80048; 84484; 85025; 93005; 99285; A4216

== ENCOUNTER 2022-02-01 09:32 | Outpatient (CLI) | payer MEDICAID, SELFPAY ==
[2022-02-01 12:05] LABS: Erythrocyte Sedimentation Rate 17 mm/hr (0-30)
[2022-02-01 12:28] LABS: Rheumatoid Factor < 10.0 IU/mL (<15)
[2022-02-02 15:58] LABS: ANTINUCLEAR ANTIBODIES DIRECT Negative (Negative)
== END 2022-02-01 23:59 | disposition home or self-care (01) ==
LOC: BIMLAB 09:33
PROVIDERS: PCP Internal Medicine; Referring Provider Internal Medicine; Visit Provider Internal Medicine
DX: D86.9 Sarcoidosis, unspecified (principal)
CPT/HCPCS: 36415; 85652; 86038; 86225; 86235; 86431

== ENCOUNTER 2022-02-08 11:30 | Outpatient (RCR) | payer MEDICAID, SELFPAY | END 2022-02-11 23:59 | LOC: NS 11:30 | PROVIDERS: PCP Internal Medicine; Referring Provider Internal Medicine; Visit Provider Internal Medicine | DX: Z71.3 Dietary counseling and surveillance (principal); E66.01 Morbid (severe) obesity due to excess calories | CPT/HCPCS: 97802; 97803 ==

== ENCOUNTER 2022-02-27 10:16 | Observation (INO) | payer MEDICAID, SELFPAY ==
[2022-02-27] VITALS (12 sets, daily range): BP systolic 125–163; BP diastolic 61–83; PULSE 65–99; RESP 16–20; TEMP 36.2–36.7; O2SAT 95–98; BMI 45.8; BMI 44.2
--- NOTE | 2022-02-27 10:24 | RAD_ITS ---
STUDY: X-RAY CHEST REASON FOR EXAM: Female, 57 years old. Cough, shortness of breath upper respiratory sympt TECHNIQUE: Single AP portable view of the chest. COMPARISON: Comparison is made with prior study 12/26/2021 FINDINGS: EKG electrodes are seen. Patchy bibasilar infiltrates. This is worse on the right base. There is no demonstrated pleural abnormality. There is mild cardiac enlargement. Normal mediastinum and rosita. Normal visualized pulmonary arteries. There is atherosclerotic tortuosity of the aortic arch and descending thoracic aorta. Normal visualized thoracic spine. Normal visualized ribs, clavicles, and shoulders. There is no demonstrated abnormality of the visualized soft tissue structures of the upper abdomen. RAD/Chest 1 View (Portable) IMPRESSION: Patchy bibasilar infiltrates more prominent at the right lung base. Electronically Signed: Patrick Keita MD at 10:45 EDT ,
--- NOTE | 2022-02-27 10:25 | EX.ED.VIS.UR ---
HPI HPI - URI History of Present Illness Chief Complaint: Shortness of Breath Detail of Chief Complaint: Productive cough with loss of voice and shortness of breath Informant: patient Onset/Context/Timing Onset: Today Context: Sudden Onset Timing: Continuous Quality: Up respiratory tract infectious symptoms Location: Upper respiratory Current Severity: Mild Maximum Severity: Moderate Worsened by: Swallowing, Eating Solids and Drinking Liquids Relieved by: Not Relieved By Tylenol and NSAIDs Associated Symptoms Associated Symptoms: Positive for Nasal Congestion, Headache, Nausea, Vomiting, Shortness of Breath, Chest Pain (Right and left infraclavicular region) and Productive Cough; Negative for Sinus Pressure, Myalgias, Diarrhea, Nonproductive cough and Hemoptysis Narrative Narrative: Patient is a 57-year-old woman with multiple medical problems who presents with cute onset of upper respiratory tract infectious symptoms. She has had issues with nausea and vomiting. She had increased nausea vomiting past 2 days. She denies diarrhea. She has not been immunized for the flu or COVID. She is a smoker. She states she was unable to smoke today. She states she never has a fever. She does endorse headache. She denies photophobia, neck pain or neck stiffness. She does have a mild nasal symptoms. She denies sore throat. She does report port loss of voice. She denies ear pain or drainage from ears. The chest pain is associated with coughing. There is no exertional component. She does have increased shortness of breath with activity. She denies any urologic symptoms. She denies rash. She reports pain that is anterior lateral left leg mid third. There is no history of trauma. She does have history of PE. She is presently on aspirin. Prior similar symptoms: No Recent Illness/Hospitalization: No ROS ROS ED Constitutional Constitutional ED: Denies chills, fever(s), subjective, sweats or weight loss Eyes Eyes: Denies blurry vision, change in vision or diplopia ENT ENT ED: Denies ear pain, rhinorrhea or sore throat Cardiovascular Cardiovascular: Reports chest pain; Denies orthopnea, palpitations, paroxysmal nocturnal dyspnea or racing heartbeat Respiratory/Chest Respiratory/Chest: Reports cough, dyspnea, dyspnea on exertion and sputum; Denies orthopnea or paroxysmal nocturnal dyspnea Gastrointestinal Gastrointestinal: Reports abdominal pain, nausea and vomiting; Denies constipation, diarrhea or melena Genitourinary Genitourinary ED: Denies dysuria, hematuria or urinary frequency Musculoskeletal Musculoskeletal: Denies arthralgias, back pain, myalgias or neck pain Integumentary Denies abscess, Abrasions or rash Neurologic Neurologic: Reports weakness; Denies headache(s) or paresthesias Endocrine Endocrinology: Denies polydipsia, polyphagia or polyuria Hematologic/Lymphatic Hematologic/Lymphatic: Denies easy bleeding, easy bruising or lymphadenopathy PFSH [facility] Medical History Abdominal pain Allergic rhinitis Aortic valve insufficiency Arthralgia of right hip Arthritis Asthma Back pain Bilateral flank pain Bilateral foot pain Bipolar 1 disorder Bipolar disorder Blackout Bladder disease Cancer Cardiology follow-up encounter Chest pain Chest pain Chest pain Chest pain CKD (chronic kidney disease) Conversion disorder Conversion disorder with abnormal movement Convulsion, non-epileptic COPD (chronic obstructive pulmonary disease) COPD, mild CPAP (continuous positive airway pressure) dependence Cyst Debility Depression Diarrhea Dietary restriction Difficulty chewing Dysuria Easy bruising Enlarged aorta Excessive bleeding Gastric reflux Gastritis GERD (gastroesophageal reflux disease) GERD (gastroesophageal reflux disease) Heart failure High cholesterol Hip dislocation, right History of abnormal cervical Pap smear History of atrial fibrillation History of CHF (congestive heart failure) History of echocardiogram History of edema History of hiatal hernia History of IBS History of stress test History of ulceration HLD (hyperlipidemia) HTN (hypertension) Hx of tilt table evaluation Hypertensive crisis without congestive heart failure Hypokalemia Hyponatremia Hyponatremia Hypothyroidism Injury of head and neck Intertriginous dermatitis associated with moisture Left arm swelling Leg cramps Marijuana use Migraine Migraines Morbid obesity Myositis Nausea & vomiting Nausea and vomiting Non-convulsive status epilepticus Non-rheumatic mitral regurgitation Nonrheumatic aortic (valve) insufficiency Open wound Oral candidiasis Orthostatic hypotension DAPHNE (obstructive sleep apnea) Osteoarthritis Osteoarthritis of right hip PAF (paroxysmal atrial fibrillation) Peripheral artery disease Post-menopausal Psychosis Pulmonary embolism Right hip pain Sarcoidosis Schizo NEC, chrn/exacerb Schizophrenia Seizures Shortness of breath on exertion Smoker Stroke Stroke/cerebrovascular accident Syncope Thyroid disease TIA (transient ischemic attack) Tobacco abuse Venous insufficiency of both lower extremities 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 as ambulation 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 Wears dentures Home Medications nifedipine 60 mg tablet,extended release 24 hr 30 mg PO BID #90 tab 04/08/21 [Rx Last Taken Unknown] azelastine 205.5 mcg (0.15 %) nasal spray 1 spray INTRANASAL BID #30 ml 07/11/21 [Rx Last Taken Unknown] montelukast 10 mg tablet 10 mg PO QHS #90 tab 09/26/21 [Rx Last Taken Unknown] albuterol sulfate 90 mcg/actuation aerosol inhaler 2 puff INHALATION Q4H PRN #8.5 g 11/23/21 [Rx Last Taken Unknown] cholecalciferol (vitamin D3) 1,250 mcg (50,000 unit) capsule 50,000 unit PO FR #12 cap 11/24/21 [Rx Last Taken Unknown] ondansetron 4 mg disintegrating tablet 4 mg PO Q8H PRN #14 tab 11/29/21 [Rx Last Taken Unknown] nitroglycerin 0.4 mg sublingual tablet 0.4 mg SUBLINGUAL PRN PRN #25 tab 12/05/21 [Rx Last Taken Unknown] omeprazole 40 mg PO DAILY 12/07/21 [History Last Taken Unknown] prednisolone acetate 1 drp EACH EYE Q4H PRN PRN 12/07/21 [History Last Taken Unknown] aspirin 81 mg tablet,delayed release 81 mg PO DAILY #90 tab 12/16/21 [Rx Last Taken Unknown] melatonin 10 mg capsule 10 mg PO QHS #90 cap 12/16/21 [Rx Last Taken Unknown] hydralazine 50 mg tablet 50 mg PO TID #270 tab 12/19/21 [Rx Last Taken Unknown] levothyroxine 50 mcg tablet 50 mcg PO DAILY #90 tab 12/19/21 [Rx Last Taken Unknown] losartan 100 mg tablet 100 mg PO DAILY #90 tab 12/19/21 [Rx Last Taken Unknown] budesonide-formoterol HFA 160 mcg-4.5 mcg/actuation aerosol inhaler 2 puff INHALATION BID #10.2 g 12/22/21 [Rx Last Taken Unknown] lidocaine 1 patch TOPICAL DAILY PRN 12/26/21 [History Last Taken Unknown] polyethylene glycol 3350 17 gram/dose oral powder 17 g PO BID PRN #238 g 12/26/21 [Rx Last Taken Unknown] tiotropium bromide 1.25 mcg/actuation mist for inhalation 2 puff INHALATION DAILY #4 g 01/16/22 [Rx Last Taken Unknown] atorvastatin 40 mg tablet 40 mg PO QHS #90 tab 01/17/22 [Rx Last Taken Unknown] guaifenesin 1,200 mg tablet, extended release 12 hr 600 mg PO BID #60 tab 01/17/22 [Rx Last Taken Unknown] miconazole nitrate 2 % topical powder 1 applic TOPICAL BID #85 g 01/25/22 [Rx Last Taken Unknown] fluticasone propionate 50 mcg/actuation nasal spray,suspension 1 spray NASAL BID #16 g 02/14/22 [Rx Last Taken Unknown] furosemide 20 mg tablet 20 mg PO BID #90 tab 02/14/22 [Rx Last Taken Unknown] loratadine 10 mg tablet 10 mg PO DAILY #90 tab 02/14/22 [Rx Last Taken Unknown] spironolactone 25 mg tablet 25 mg PO QHS #90 tab 02/14/22 [Rx Last Taken Unknown] sucralfate 1 gram tablet 1 g PO TID #90 tab 02/14/22 [Rx Last Taken Unknown] Allergy/AdvReac Type Severity Reaction Status Date / Time adhesive tape Allergy Rash Verified 02/27/22 10:22 atropine sulfate Allergy Hives Verified 02/27/22 10:22 [From ] codeine phosphate Allergy breathing Verified 02/27/22 10:22 [From Tylenol-Codeine #3] problems divalproex sodium Allergy Unknown Verified 02/27/22 10:22 [From Depakote] hydromorphone HCl Allergy facial Verified 02/27/22 10:22 [From Dilaudid] blisters,itching hyoscyamine sulfate Allergy Hives Verified 02/27/22 10:22 [From ] Iodinated Contrast Media Allergy breathing Verified 02/27/22 10:22 [Iodinated Contrast Media - problems IV Dye] and my bp went up latex Allergy Rash Verified 02/27/22 10:22 pantoprazole sodium Allergy Rash Verified 02/27/22 10:22 [From Protonix] phenobarbital [From ] Allergy Hives Verified 02/27/22 10:22 promethazine HCl Allergy Anaphylaxis Verified 02/27/22 10:22 [From Phenergan] ramipril Allergy Unknown Verified 02/27/22 10:22 scopolamine hydrobromide Allergy Hives Verified 02/27/22 10:22 [From ] tramadol Allergy Itching Verified 02/27/22 10:22 ziprasidone mesylate Allergy Unknown Verified 02/27/22 10:22 [From Geodon] Sulfa (Sulfonamide AdvReac Vomiting Verified 02/27/22 10:22 Antibiotics) ziprasidone HCl [From Geodon] AdvReac tremors Verified 02/27/22 10:22 VIDODIN TUSS Allergy Itching Uncoded 02/27/22 10:22 Amlodipine AdvReac Vomiting Uncoded 02/27/22 10:22 Family History Sister Myocardial infarction Colon cancer Mother Hypertension Arthritis Brain aneurysm Sister Colon cancer Surgical History bladder sling History of esophagogastroduodenoscopy (EGD) History of laparoscopic cholecystectomy History of uterine suspension procedure Hx of cholecystectomy Hx of colonoscopy left foot S/P carpal tunnel release Social History household members: none number of children: 4 current occupational status: unemployed history of recent travel: No Smoking Status: Current every day smoker tobacco type: cigarettes Tobacco: How many years used: 26 alcohol intake: never substance use type: does not use caffeine: Yes Type: coffee what type of physical activity do you participate in: none seatbelt use: never do you feel safe at home: Yes additional social history: single EXAM Physical Exam Const Vital Signs: 02/27/22 10:17 02/27/22 10:20 02/27/22 10:43 Temperature 97.2 F L 97.2 F L Temperature Source Temporal Temporal Pulse Rate 99 99 Respiratory Rate 20 H 18 Respiratory Effort Short of Breath Labored Blood Pressure 163/79 H 163/79 H Blood Pressure Mean 107 107 Pulse Ox 96 96 Oxygen Delivery Method Room Air Room Air 02/27/22 12:21 Temperature Temperature Source Pulse Rate 73 Respiratory Rate 16 Respiratory Effort Blood Pressure 145/68 H Blood Pressure Mean 93 Pulse Ox 96 Oxygen Delivery Method Room Air Positive well nourished, well developed and obese General Appearance ED: well developed; Negative for cyanotic, diaphoretic, NAD or pallor Nutritional Appearance: obese HEENT Reports dry mucous membranes normocephalic and atraumatic Face and Sinus: Negative for facial tenderness External Ear: external ears normal, mastoids normal and no preauricular adenopathy External Auditory Canal: EAC's normal Mouth ED: Yes dry mucous membranes Mouth: dry mucous membranes Throat: posterior oropharynx normal Eyes PERRL and EOMs intact bilaterally Eyes Narrative: Status post bilateral cataract surgery General Eye ED: Negative for pale conjunctiva or scleral icterus Neck no lymphadenopathy, supple, no meningeal signs and no JVD Neck Narrative: Trachea is midline. There is no inspiratory expiratory stridor. General: Negative for anterior neck swelling or lymphadenopathy Cardio S1 normal heart sound, S2 normal heart sound and no murmurs Rate: tachycardic Rhythm: regular rhythm Bruits: Negative for carotid bruit GI non-distended and no masses; Negative for non-tender Auscultation: hypoactive bowel sounds; Negative for normoactive bowel sounds Palpation: soft and tender RLQ, LUQ and RUQ; Negative for guarding, hepatomegaly, splenomegaly or mass Back/Spine no CVA tenderness Cervical Spine: Negative for cervical spine tenderness Lumbar Spine / Lower Back: Negative for lumbar spinal tenderness Extremity normal to inspection; Negative for full ROM Extremity Narrative: There is tenderness to the anterior lateral mid third of the left leg. There is no swelling, asymmetry, leg vein distention, palpable cords or tenderness on the distribution deep venous system. General Extremety ED: Yes tenderness; Negative for cyanosis General Extremity: Negative for cyanosis Neuro oriented x3 and CN's II-XII intact bilaterally Sensorium / Orientation: alert Psych mental status grossly normal Skin General Skin Exam: Negative for jaundice or pallor Lesions: no lesions Rashes: no rashes MDM MDM MDM Narrative Medical decision making narrative: The patient is constantly symptoms this may represent COVID versus other viral infection. Since she has a productive cough of green-colored sputum will obtain chest x-ray to rule out pneumonia. Since chest x-ray does reveal bilateral infiltrates we will start patient on level Floxin 750 mg. Blood cultures not obtained since patient has no sirs criteria other than a pulse of 99. Lab Data Attestation: I reviewed the patient's lab results. Labs: Laboratory Results - last 24 hr 02/27/22 02/27/22 10:40 10:40 WBC 8.3 RBC 5.26 Hgb 16.1 H Hct 47.9 H MCV 91.1 MCH 30.6 MCHC 33.6 RDW Std Deviation 47.5 H RDW Coeff of Yonathan 14.1 Plt Count 261 MPV 10.2 Immature Gran % (Auto) 0.400 Neut % (Auto) 76.3 H Lymph % (Auto) 14.5 L Nobles % (Auto) 5.7 Eos % (Auto) 2.9 Baso % (Auto) 0.2 Absolute Neuts (auto) 6.3 Absolute Lymphs (auto) 1.20 Nucleated RBC % 0 Sodium 141 Potassium 4.0 Chloride 107 Carbon Dioxide 26.0 Anion Gap 8 BUN 9 Creatinine 1.16 H Estim Creat Clear Calc 45.65 Est GFR (MDRD) Af Amer 62 Est GFR (MDRD) Non-Af 51 L BUN/Creatinine Ratio 7.8 L Glucose 116 H Calcium 9.5 Radiography Diagnostic Testing: Clinical Impression(s) from Imaging Studies Chest X-Ray 02/27/22 10:24 IMPRESSION: Patchy bibasilar infiltrates more prominent at the right lung base. Electronically Signed: Patrick Keita MD at 10:45 EDT , Single view chest x-ray was obtained and reveals increased interstitial markings left greater than right which probably represent bilateral pneumonia. Cardiac silhouette and size unremarkable. Perihilar region unremarkable. Osseous trucks unremarkable. This was independent reviewed interpreted by me. Discharge Plan Dx/Rx/DC Orders Clinical Impression: Community acquired bilateral lower lobe pneumonia, Hypertension, Renal insufficiency Disposition Disposition: Acute Care [facility]
[2022-02-27 10:48] LABS: Absolute Neutrophil Count 6.3 X10^3/uL (2.0-7.7); Basophil# 0.02 X10^3/uL; Basophil% 0.2 % (0-1); Eosinophil# 0.24 X10^3/uL; Eosinophils% 2.9 % (0-5); Hematocrit 47.9 % (37-47); Hemoglobin 16.1 g/dL (12.0-15.0); Lymphocyte % 14.5 % (19-41); Mean Corp Hgb Conc 33.6 g/dL (32-36); Mean Corpuscular Hgb 30.6 pg (27.0-32.0); Mean Corpuscular Volume 91.1 fL (81-99); Mean Platelet Vol. 10.2 fl (6.2-12.0); Monocyte# 0.47 X10^3/uL; Monocyte% 5.7 % (0-10); NRBC Flagged by Analyzer 0 % (0-5); Neutrophil # 6.29 X10^3/uL (2.7-7.7); Neutrophil % 76.3 % (47-70); Platelet Count 261 K/mm3 (150-450); RBC Distribution Width CV 14.1 % (11.6-14.6); RBC Distribution Width SD 47.5 fl (35.1-43.9); Red Blood Count 5.26 M/mm3 (4.2-5.4); White Blood Count 8.3 K/mm3 (4.4-11.0)
[2022-02-27 11:03] LABS: Anion Gap 8 (5-15); BUN 9 mg/dL (7-18); BUN/Creat Ratio 7.8 RATIO (10-20); Calcium,Total 9.5 mg/dL (8.5-10.1); Chloride 107 mmol/L (98-107); Creatinine, Serum 1.16 mg/dL (0.55-1.02); EST Glomerular Filtration Rate 51 mL/min (>60); Est Glom Filt Rate - Afr Amer 62 mL/min (>60); Estimated Creatinine Clearance 45.65 ml/min; Glucose 116 mg/dL (74-106); Sodium Level 141 mmol/L (136-145)
[2022-02-27] MEDS: levoFLOXacin IV 750 MG/150 ML BAG 100 MG IV (11:19)
[2022-02-27] MEDS: DiphenhydrAMINE 50 MG/ML Syringe 25 MG IV (11:51)
--- NOTE | 2022-02-27 12:55 | HP.PCM.HOS_ITS ---
[facility] - General General Date of Admission: 02/27/22 Date of Service: 02/27/22 Chief Complaint: Cough chills and shortness of breath HPI Narrative NIGHAT TIMMONS, is a 57 F with multiple comorbidities including bipolar disorder, schizoaffective disorder who presented to the hospital with shortness of breath . Per patient symptoms started a day prior to coming in. In addition to the shortness of breath she also had a cough which is productive of greenish sputum. Patient also did admit to chills but denied any fever. Presented to [facility] emergency department as a result of worsening symptoms. Chest x-ray obtained in the ED demonstrated patchy bibasilar infiltrate more prominent at the right lung base. Patient was however afebrile and without leukocytosis. Patient was admitted to regular nursing floor as a case of suspected pneumonia for further management [facility] Medical History Abdominal pain Allergic rhinitis Aortic valve insufficiency Arthralgia of right hip Arthritis Asthma Back pain Bilateral flank pain Bilateral foot pain Bipolar 1 disorder Bipolar disorder Blackout Bladder disease Cancer Cardiology follow-up encounter Chest pain Chest pain Chest pain Chest pain CKD (chronic kidney disease) Conversion disorder Conversion disorder with abnormal movement Convulsion, non-epileptic COPD (chronic obstructive pulmonary disease) COPD, mild CPAP (continuous positive airway pressure) dependence Cyst Debility Depression Diarrhea Dietary restriction Difficulty chewing Dysuria Easy bruising Enlarged aorta Excessive bleeding Gastric reflux Gastritis GERD (gastroesophageal reflux disease) GERD (gastroesophageal reflux disease) Heart failure High cholesterol Hip dislocation, right History of abnormal cervical Pap smear History of atrial fibrillation History of CHF (congestive heart failure) History of echocardiogram History of edema History of hiatal hernia History of IBS History of stress test History of ulceration HLD (hyperlipidemia) HTN (hypertension) Hx of tilt table evaluation Hypertensive crisis without congestive heart failure Hypokalemia Hyponatremia Hyponatremia Hypothyroidism Injury of head and neck Intertriginous dermatitis associated with moisture Left arm swelling Leg cramps Marijuana use Migraine Migraines Morbid obesity Myositis Nausea & vomiting Nausea and vomiting Non-convulsive status epilepticus Non-rheumatic mitral regurgitation Nonrheumatic aortic (valve) insufficiency Open wound Oral candidiasis Orthostatic hypotension DAPHNE (obstructive sleep apnea) Osteoarthritis Osteoarthritis of right hip PAF (paroxysmal atrial fibrillation) Peripheral artery disease Post-menopausal Psychosis Pulmonary embolism Right hip pain Sarcoidosis Schizo NEC, chrn/exacerb Schizophrenia Seizures Shortness of breath on exertion Smoker Stroke Stroke/cerebrovascular accident Syncope Thyroid disease TIA (transient ischemic attack) Tobacco abuse Venous insufficiency of both lower extremities Walker as ambulation aid Wears dentures Home Medications nifedipine 60 mg tablet,extended release 24 hr 30 mg PO BID #90 tab 04/08/21 [Rx Last Taken Unknown] azelastine 205.5 mcg (0.15 %) nasal spray 1 spray INTRANASAL BID #30 ml 07/11/21 [Rx Last Taken Unknown] montelukast 10 mg tablet 10 mg PO QHS #90 tab 09/26/21 [Rx Last Taken Unknown] albuterol sulfate 90 mcg/actuation aerosol inhaler 2 puff INHALATION Q4H PRN #8.5 g 11/23/21 [Rx Last Taken Unknown] cholecalciferol (vitamin D3) 1,250 mcg (50,000 unit) capsule 50,000 unit PO FR #12 cap 11/24/21 [Rx Last Taken Unknown] ondansetron 4 mg disintegrating tablet 4 mg PO Q8H PRN #14 tab 11/29/21 [Rx Last Taken Unknown] nitroglycerin 0.4 mg sublingual tablet 0.4 mg SUBLINGUAL PRN PRN #25 tab 12/05/21 [Rx Last Taken Unknown] omeprazole 40 mg PO DAILY 12/07/21 [History Last Taken Unknown] prednisolone acetate 1 drp EACH EYE Q4H PRN PRN 12/07/21 [History Last Taken Unknown] aspirin 81 mg tablet,delayed release 81 mg PO DAILY #90 tab 12/16/21 [Rx Last Taken Unknown] melatonin 10 mg capsule 10 mg PO QHS #90 cap 12/16/21 [Rx Last Taken Unknown] hydralazine 50 mg tablet 50 mg PO TID #270 tab 12/19/21 [Rx Last Taken Unknown] levothyroxine 50 mcg tablet 50 mcg PO DAILY #90 tab 12/19/21 [Rx Last Taken Unknown] losartan 100 mg tablet 100 mg PO DAILY #90 tab 12/19/21 [Rx Last Taken Unknown] budesonide-formoterol HFA 160 mcg-4.5 mcg/actuation aerosol inhaler 2 puff INHALATION BID #10.2 g 12/22/21 [Rx Last Taken Unknown] lidocaine 1 patch TOPICAL DAILY PRN 12/26/21 [History Last Taken Unknown] polyethylene glycol 3350 17 gram/dose oral powder 17 g PO BID PRN #238 g 12/26/21 [Rx Last Taken Unknown] tiotropium bromide 1.25 mcg/actuation mist for inhalation 2 puff INHALATION DAILY #4 g 01/16/22 [Rx Last Taken Unknown] atorvastatin 40 mg tablet 40 mg PO QHS #90 tab 01/17/22 [Rx Last Taken Unknown] guaifenesin 1,200 mg tablet, extended release 12 hr 600 mg PO BID #60 tab 01/17/22 [Rx Last Taken Unknown] miconazole nitrate 2 % topical powder 1 applic TOPICAL BID #85 g 01/25/22 [Rx Last Taken Unknown] fluticasone propionate 50 mcg/actuation nasal spray,suspension 1 spray NASAL BID #16 g 02/14/22 [Rx Last Taken Unknown] furosemide 20 mg tablet 20 mg PO BID #90 tab 02/14/22 [Rx Last Taken Unknown] loratadine 10 mg tablet 10 mg PO DAILY #90 tab 02/14/22 [Rx Last Taken Unknown] spironolactone 25 mg tablet 25 mg PO QHS #90 tab 02/14/22 [Rx Last Taken Unknown] sucralfate 1 gram tablet 1 g PO TID #90 tab 02/14/22 [Rx Last Taken Unknown] Allergy/AdvReac Type Severity Reaction Status Date / Time adhesive tape Allergy Rash Verified 02/27/22 10:22 atropine sulfate Allergy Hives Verified 02/27/22 10:22 [From ] codeine phosphate Allergy breathing Verified 02/27/22 10:22 [From Tylenol-Codeine #3] problems divalproex sodium Allergy Unknown Verified 02/27/22 10:22 [From Depakote] hydromorphone HCl Allergy facial Verified 02/27/22 10:22 [From Dilaudid] blisters,itching hyoscyamine sulfate Allergy Hives Verified 02/27/22 10:22 [From ] Iodinated Contrast Media Allergy breathing Verified 02/27/22 10:22 [Iodinated Contrast Media - problems IV Dye] and my bp went up latex Allergy Rash Verified 02/27/22 10:22 pantoprazole sodium Allergy Rash Verified 02/27/22 10:22 [From Protonix] phenobarbital [From ] Allergy Hives Verified 02/27/22 10:22 promethazine HCl Allergy Anaphylaxis Verified 02/27/22 10:22 [From Phenergan] ramipril Allergy Unknown Verified 02/27/22 10:22 scopolamine hydrobromide Allergy Hives Verified 02/27/22 10:22 [From ] tramadol Allergy Itching Verified 02/27/22 10:22 ziprasidone mesylate Allergy Unknown Verified 02/27/22 10:22 [From Geodon] Sulfa (Sulfonamide AdvReac Vomiting Verified 02/27/22 10:22 Antibiotics) ziprasidone HCl [From Geodon] AdvReac tremors Verified 02/27/22 10:22 VIDODIN TUSS Allergy Itching Uncoded 02/27/22 10:22 Amlodipine AdvReac Vomiting Uncoded 02/27/22 10:22 Family History Sister Myocardial infarction Colon cancer Mother Hypertension Arthritis Brain aneurysm Sister Colon cancer Surgical History bladder sling History of esophagogastroduodenoscopy (EGD) History of laparoscopic cholecystectomy History of uterine suspension procedure Hx of cholecystectomy Hx of colonoscopy left foot S/P carpal tunnel release Social History household members: none number of children: 4 current occupational status: unemployed history of recent travel: No Smoking Status: Current every day smoker tobacco type: cigarettes Tobacco: How many years used: 26 alcohol intake: never substance use type: does not use caffeine: Yes Type: coffee what type of physical activity do you participate in: none seatbelt use: never do you feel safe at home: Yes additional social history: single ROS ROS Narrative GENERAL: chills, HEENT: denies headache, sinus congestion, RESPIRATORY: cough, sputum production, shortness of breath, CARDIAC: denies chest pain, palpitations, orthopnea, GASTROINTESTINAL: denies abdominal pain, nausea, GENITOURINARY: denies dysuria, urgency, frequency, EXTREMITY: denies swelling MUSCULOSKELETAL: denies current joint pain or tenderness NEUROLOGIC: denies focal numbness, weakness, tingling HEMATOLOGIC: denies easy bruising and/or hemorrhage INTEGUMENT: denies rashes PSYCHIATRIC: denies suicidal or homicidal ideation Vital Signs Vital Signs Vital Signs: 02/27/22 10:17 02/27/22 10:20 02/27/22 10:43 Temperature 97.2 F L 97.2 F L Temperature Source Temporal Temporal Pulse Rate 99 99 Respiratory Rate 20 H 18 Respiratory Effort Short of Breath Labored Blood Pressure 163/79 H 163/79 H Blood Pressure Mean 107 107 Pulse Ox 96 96 Oxygen Delivery Method Room Air Room Air 02/27/22 12:21 02/27/22 12:47 Temperature 97.2 F L Temperature Source Temporal Pulse Rate 73 73 Respiratory Rate 16 16 Respiratory Effort Blood Pressure 145/68 H 145/68 H Blood Pressure Mean 93 93 Pulse Ox 96 96 Oxygen Delivery Method Room Air Room Air Weight Weight: 121 kg Body Mass Index (BMI) 45.8 Physical Exam Narrative GENERAL: cooperative HEENT: Atraumatic; EYES; Anicteric, Normal Conjunctiva NECK; supple, normal thyroid, RESPIRATORY: Diminished to auscultation CARDIOVASCULAR: Regular S1 S2, GI: soft, normoactive bowel sounds, : No Renal angle tenderness; EXTREMITIES: No edema, no clubbing, MUSCULOSKELETAL: no muscle wasting NEURO: Awake; no lateralizing signs. SKIN: No Rash PSYCH; Flat affect Results Lab / Micro Data Result Diagrams: 02/27/22 10:40 02/27/22 10:40 Labs: Laboratory Results - last 24 hr 02/27/22 10:40: WBC 8.3, RBC 5.26, Hgb 16.1 H, Hct 47.9 H, MCV 91.1, MCH 30.6, MCHC 33.6, RDW Std Deviation 47.5 H, RDW Coeff of Yonathan 14.1, Plt Count 261, MPV 10.2, Immature Gran % (Auto) 0.400, Neut % (Auto) 76.3 H, Lymph % (Auto) 14.5 L, [place] % (Auto) 5.7, Eos % (Auto) 2.9, Baso % (Auto) 0.2, Absolute Neuts (auto) 6.3, Absolute Lymphs (auto) 1.20, Nucleated RBC % 0 02/27/22 10:40: Sodium 141, Potassium 4.0, Chloride 107, Carbon Dioxide 26.0, Anion Gap 8, BUN 9, Creatinine 1.16 H, Estim Creat Clear Calc 45.65, Est GFR (MDRD) Af Amer 62, Est GFR (MDRD) Non-Af 51 L, BUN/Creatinine Ratio 7.8 L, Gl ucose 116 H, Calcium 9.5 Micro: Microbiology 02/27/22 10:45 Nasal Secretion SARS-CoV-2 Antigen (Rapid) - Final Radiology Impression Chest X-Ray 02/27/22 10:24 IMPRESSION: Patchy bibasilar infiltrates more prominent at the right lung base. Electronically Signed: Patrick Keita MD at 10:45 EDT , Assessment & Plan Assessment/Plan (1) Community acquired bilateral lower lobe pneumonia: (2) Hypertension: PLAN: Patient is a 57-year-old lady presented with progressive shortness of breath productive cough. Imaging studies demonstrated patchy bibasilar infiltrate prominent on the right be 1. Suspected community-acquired pneumonia ? Patient has been admitted to regular nursing floor currently being managed with broad-spectrum antibiotic therapy with Rocephin and azithromycin. Patient had apparently received Levaquin in the ED and she did develop itching this had to be discontinued. She was also placed on supplemental oxygen titrated to keep oxygen saturation greater than 90 cultures were sent 2. Pleuritic chest pain ? Possibly related to above patient however states she has had pulmonary embolism in the past. Did not find that in her records I did D-dimer and if positive patient will undergo subsequent evaluation with CTA of the chest after being prepped for her dye allergy 3. Previous history of CVA ? Per patient with residual short-term memory loss 4. Hypertension - Blood pressure controlled, home medications continued with dose adjustment as needed 5. Hypothyroidism - Patient is on levothyroxine home dose continued 6. Class III obesity with BMI of 45.8 ? Weight loss advised 7. Overlap syndrome with COPD and asthma ? Aerosol treatment as needed 8. Schizophrenia ? Per history currently not on any psychotropic medications 9. Dyslipidemia -Patient is on statin therapy, continued at home dose 10. Tobacco dependence - Counseled on cessation, offered nicotine patch for tobacco cravings 11. DVT prophylaxis ? Lovenox Charges/Coding Visit Charges OBSV E&M: 54193 Initial observation care L3
[2022-02-27 13:27] LABS: D-Dimer Quantitative (DVT/PE) 0.76 FEU/ug/m (0.27-0.49)
[2022-02-27 14:02] LABS: Lactic Acid 0.8 mmol/L (0.4-1.9)
[2022-02-27] MEDS: hydrALAZINE 50 MG Tablet PO ×2 (14:39→21:07)
[2022-02-27] MEDS: Enoxaparin 100 MG/ML Syringe 120 MG SC (14:43)
[2022-02-27] MEDS: Sucralfate 1 GM Tablet PO (17:03)
[2022-02-27] MEDS: Furosemide 20 MG Tablet PO (17:03)
--- NOTE | 2022-02-27 18:28 | NURSING ---
Reviewed charting with Pily Owens RN
[2022-02-27] MEDS: Budesonide Respules 0.5 MG/2 ML AMPUL.NEB. INHALATION (19:23)
[2022-02-27] MEDS: Ipratropium/Albuterol Sulfate 3 ML AMPUL.NEB INHALATION (19:23)
[2022-02-27] MEDS: Nystatin Powder 15gm Bottle 1 APPLIC TOPICAL (21:05)
[2022-02-27] MEDS: Azelastine HCl NASAL.SRY NASAL (21:06)
[2022-02-27] MEDS: Fluticasone 0.05% 1 SPRAY NASAL.SRY NASAL (21:06)
[2022-02-27] MEDS: MELATONIN 10 MG TABLET PO (21:07)
[2022-02-27] MEDS: Spironolactone 25 MG Tablet PO (21:07)
[2022-02-27] MEDS: NIFEdipine 30 MG Tablet PO (21:07)
[2022-02-27] MEDS: Atorvastatin Calcium 40 MG Tablet PO (21:08)
[2022-02-27] MEDS: Montelukast 10 MG Tablet PO (21:10)
[2022-02-28] VITALS (7 sets, daily range): BP systolic 118–132; BP diastolic 58–103; PULSE 60–92; RESP 16–18; TEMP 36.2–36.7; O2SAT 94–96
[2022-02-28 05:48] LABS: Absolute Lymphocyte Count 1.77 X10^3/uL (0.83-4.51); Absolute Neutrophil Count 4.6 X10^3/uL (2.0-7.7); Basophil# 0.02 X10^3/uL; Basophil% 0.3 % (0-1); Eosinophil# 0.22 X10^3/uL; Hemoglobin 14.5 g/dL (12.0-15.0); Lymphocyte # 1.77 X10^3/ul (0.83-4.51); Lymphocyte % 24.4 % (19-41); Mean Corpuscular Hgb 30.7 pg (27.0-32.0); Mean Corpuscular Volume 93.2 fL (81-99); Monocyte# 0.64 X10^3/uL; Monocyte% 8.8 % (0-10); NRBC Flagged by Analyzer 0 % (0-5); Neutrophil # 4.57 X10^3/uL (2.7-7.7); Neutrophil % 63.1 % (47-70); Platelet Count 235 K/mm3 (150-450); RBC Distribution Width CV 14.3 % (11.6-14.6); RBC Distribution Width SD 48.8 fl (35.1-43.9); Red Blood Count 4.72 M/mm3 (4.2-5.4); White Blood Count 7.3 K/mm3 (4.4-11.0)
[2022-02-28] MEDS: Budesonide Respules 0.5 MG/2 ML AMPUL.NEB. INHALATION (06:29)
[2022-02-28] MEDS: Ipratropium/Albuterol Sulfate 3 ML AMPUL.NEB INHALATION (06:29)
[2022-02-28 06:34] LABS: Anion Gap 8 (5-15); BUN 13 mg/dL (7-18); Calcium,Total 9.2 mg/dL (8.5-10.1); Chloride 106 mmol/L (98-107); Creatinine, Serum 1.18 mg/dL (0.55-1.02); EST Glomerular Filtration Rate 50 mL/min (>60); Est Glom Filt Rate - Afr Amer 61 mL/min (>60); Estimated Creatinine Clearance 44.88 ml/min; Glucose 98 mg/dL (74-106); Potassium 3.8 mmol/L (3.5-5.1); Sodium Level 138 mmol/L (136-145)
[2022-02-28] MEDS: Enoxaparin 100 MG/ML Syringe 120 MG SC (06:58)
[2022-02-28] MEDS: hydrALAZINE 50 MG Tablet PO ×2 (07:00→14:51)
[2022-02-28] MEDS: Levothyroxine 50 MCG Tablet PO (07:00)
[2022-02-28] MEDS: Sucralfate 1 GM Tablet PO ×2 (07:00→09:48)
--- NOTE | 2022-02-28 08:03 | CT_ITS ---
STUDY: CTA CHEST REASON FOR EXAM: Female, 57 years old. ELEVATED D-DIMER RADIATION DOSAGE (If Supplied By Facility): CTDIvol = ( 15.99 ) mGy, DLP = ( 516.90 ) mGycm TECHNIQUE: The examination was performed with the intravenous administration of IV 75mL Isovue-370. Post-processing of the angiographic images was performed, with multiplanar reformation and 3D reconstruction. Individualized dose optimization techniques were used for this CT. COMPARISON: 02/09/2021 FINDINGS: Normal enhancement of the main pulmonary artery and right and left pulmonary arteries. Normal enhancement of the bilateral peripheral pulmonary arteries. There is no demonstrated pulmonary embolism. Normal thoracic aorta and visualized great vessels. There is no demonstrated aortic dissection. Normal heart and pericardium. Normal mediastinum. There are calcified right hilar lymph nodes. Normal visualized trachea and bronchi. The lungs are under expanded. Bibasilar atelectasis. Calcified granuloma right lower lobe. Normal pleura. Normal chest wall structures. Normal osseous structures. Cholecystectomy. CT/CTA Chest W/WO Contrast IMPRESSION: No central or segmental pulmonary embolism. Electronically Signed: Trav Paul MD (Brooks) at 14:29 EDT Reading Location ID and State: [facility] / MD , Service support ,
--- NOTE | 2022-02-28 08:05 | PN.HOSP_ITS ---
Subjective Subjective Patient seen she also found to require oxygen remains afebrile and WBC count remains within normal limits. She had a slightly elevated D-dimer plan is for patient to undergo subsequent evaluation with CT of the chest if negative patient will be discharged home with oral antibiotics Objective Data Objective Data Vital Signs: Vital Signs Temp Pulse Resp BP Pulse Ox 97.5 F L 74 16 124/58 H 95 02/28/22 06:56 02/28/22 07:00 02/28/22 06:56 02/28/22 06:56 02/28/22 06:56 Oxygen Delivery Method Room Air Weight: 116.4 kg Body Mass Index (BMI) 44.2 Intake & Output: Intake and Output for Last 24 Hours 02/26/22 02/27/22 02/28/22 23:59 23:59 23:59 Intake Total 270 / 270 Balance 270 / 270 Lab / Micro Data Result Diagrams: 02/28/22 05:10 02/28/22 05:10 Labs: Laboratory Results - last 24 hr 02/27/22 10:40: WBC 8.3, RBC 5.26, Hgb 16.1 H, Hct 47.9 H, MCV 91.1, MCH 30.6, MCHC 33.6, RDW Std Deviation 47.5 H, RDW Coeff of Yonathan 14.1, Plt Count 261, MPV 10.2, Immature Gran % (Auto) 0.400, Neut % (Auto) 76.3 H, Lymph % (Auto) 14.5 L, Barnes % (Auto) 5.7, Eos % (Auto) 2.9, Baso % (Auto) 0.2, Absolute Neuts (auto) 6.3, Absolute Lymphs (auto) 1.20, Nucleated RBC % 0 02/27/22 10:40: Sodium 141, Potassium 4.0, Chloride 107, Carbon Dioxide 26.0, Anion Gap 8, BUN 9, Creatinine 1.16 H, Estim Creat Clear Calc 45.65, Est GFR (MDRD) Af Amer 62, Est GFR (MDRD) Non-Af 51 L, BUN/Creatinine Ratio 7.8 L, Glucose 116 H, Calcium 9.5 02/27/22 10:40: D-Dimer Quant (PE/DVT) 0.76 H* 02/27/22 13:20: Lactic Acid 0.8 02/28/22 05:10: WBC 7.3, RBC 4.72, Hgb 14.5, Hct 44.0, MCV 93.2, MCH 30.7, MCHC 33.0, RDW Std Deviation 48.8 H, RDW Coeff of Yonathan 14.3, Plt Count 235, MPV 11.0, Immature Gran % (Auto) 0.400, Neut % (Auto) 63.1, Lymph % (Auto) 24.4, Barnes % (Auto) 8.8, Eos % (Auto) 3.0, Baso % (Auto) 0.3, Absolute Neuts (auto) 4.6, Absolute Lymphs (auto) 1.77, Nucleated RBC % 0 02/28/22 05:10: Sodium 138, Potassium 3.8, Chloride 106, Carbon Dioxide 24.0, Anion Gap 8, BUN 13, Creatinine 1.18 H, Estim Creat Clear Calc 44.88, Est GFR (MDRD) Af Amer 61, Est GFR (MDRD) Non-Af 50 L, BUN/Creatinine Ratio 11.0, Glucose 98, Calcium 9.2 Micro: Microbiology 02/27/22 14:30 Urine, Random Streptococcus pneumoniae Antigen (M - Final 02/27/22 14:30 Urine, Random Legionella Antigen - Final 02/27/22 10:45 Nasal Secretion SARS-CoV-2 Antigen (Rapid) - Final Radiography Diagnostic Testing: Radiology Impression Chest X-Ray 02/27/22 10:24 IMPRESSION: Patchy bibasilar infiltrates more prominent at the right lung base. Electronically Signed: Patrick Keita MD at 10:45 EDT , Physical Exam Narrative GENERAL: cooperative HEENT: Atraumatic; EYES; Anicteric, Normal Conjunctiva NECK; supple, normal thyroid, RESPIRATORY: Diminished to auscultation CARDIOVASCULAR: Regular S1 S2, GI: soft, normoactive bowel sounds, : No Renal angle tenderness; EXTREMITIES: No edema, no clubbing, MUSCULOSKELETAL: no muscle wasting NEURO: Awake; no lateralizing signs. SKIN: No Rash PSYCH; Flat affect Assessment & Plan Assessment/Plan (1) Community acquired bilateral lower lobe pneumonia: (2) Hypertension: PLAN: Patient is a 57-year-old lady presented with progressive shortness of breath productive cough. Imaging studies demonstrated patchy bibasilar i nfiltrate prominent on the right be 1. Suspected community-acquired pneumonia ? Patient has been admitted to regular nursing floor currently being managed with broad-spectrum antibiotic therapy with Rocephin and azithromycin. Patient had apparently received Levaquin in the ED and she did develop itching this had to be discontinued. She was also placed on supplemental oxygen titrated to keep oxygen saturation greater than 90 cultures were sent ? 02/28/2022atient seen she also found to require oxygen remains afebrile and WBC count remains within normal limits. She had a slightly elevated D-dimer plan is for patient to undergo subsequent evaluation with CT of the chest if negative patient will be discharged home with oral antibiotics 2. Pleuritic chest pain ? Possibly related to above patient however states she has had pulmonary embolism in the past. Did not find that in her records I did D-dimer and if positive patient will undergo subsequent evaluation with CTA of the chest after being prepped for her dye allergy -02/28/2022 patient D-dimer came back elevated plan is for patient to undergo CT of the chest 3. Previous history of CVA ? Per patient with residual short-term memory loss 4. Hypertension - Blood pressure controlled, home medications continued with dose adjustment as needed 5. Hypothyroidism - Patient is on levothyroxine home dose continued 6. Class III obesity with BMI of 45.8 ? Weight loss advised 7. Overlap syndrome with COPD and asthma ? Aerosol treatment as needed 8. Schizophrenia ? Per history currently not on any psychotropic medications 9. Dyslipidemia -Patient is on statin therapy, continued at home dose 10. Tobacco dependence - Counseled on cessation, offered nicotine patch for tobacco cravings 11. DVT prophylaxis ? Lovenox Charges/Coding Visit Charges OBSV E&M: 83579 Subsequent observation care L2
[2022-02-28] MEDS: 0.9% Saline Lock 10 ML Syringe IV ×2 (08:44→12:54)
[2022-02-28] MEDS: Fluticasone 0.05% 1 SPRAY NASAL.SRY NASAL (09:47)
[2022-02-28] MEDS: NIFEdipine 30 MG Tablet PO (09:48)
[2022-02-28] MEDS: Azelastine HCl NASAL.SRY NASAL (09:48)
[2022-02-28] MEDS: Losartan Potassium 100 MG Tablet PO (09:48)
[2022-02-28] MEDS: Furosemide 20 MG Tablet PO (09:48)
[2022-02-28] MEDS: Aspirin E.C. 81 MG Tablet PO (09:48)
[2022-02-28] MEDS: Loratadine 10 MG Tablet PO (09:49)
[2022-02-28] MEDS: Pantoprazole Sodium 40 MG Tablet PO (09:49)
[2022-02-28] MEDS: Nystatin Powder 15gm Bottle 1 APPLIC TOPICAL (09:49)
[2022-02-28] MEDS: DiphenhydrAMINE 50 MG/ML Syringe IV (12:54)
--- NOTE | 2022-02-28 14:37 | DS.PCM_ITS ---
Providers Date of Admission: 02/27/22 Primary Care Physician: Dr. Scarlet Navarro MD Reason For Visit: SUSPECTED PNEUMONIA Diagnosis Discharge Diagnosis (1) Community acquired bilateral lower lobe pneumonia: Status: Acute Code(s): J18.9 - Pneumonia, unspecified organism (2) Hypertension: Status: Chronic Code(s): I10 - Essential (primary) hypertension Medications at Discharge Home Medications montelukast 10 mg tablet 10 mg PO QHS #90 tab 09/26/21 albuterol sulfate 90 mcg/actuation aerosol inhaler 2 puff INHALATION Q4H PRN #8.5 g 11/23/21 ondansetron 4 mg disintegrating tablet 4 mg PO Q8H PRN #14 tab 11/29/21 nitroglycerin 0.4 mg sublingual tablet 0.4 mg SUBLINGUAL PRN PRN #25 tab 12/05/21 omeprazole 40 mg PO DAILY 12/07/21 prednisolone acetate 1 drp EACH EYE Q4H PRN PRN 12/07/21 aspirin 81 mg tablet,delayed release 81 mg PO DAILY #90 tab 12/16/21 hydralazine 50 mg tablet 50 mg PO TID #270 tab 12/19/21 losartan 100 mg tablet 100 mg PO DAILY #90 tab 12/19/21 lidocaine 1 patch TOPICAL DAILY PRN 12/26/21 polyethylene glycol 3350 17 gram/dose oral powder 17 g PO BID PRN #238 g 12/26/21 fluticasone propionate 50 mcg/actuation nasal spray,suspension 1 spray NASAL BID #16 g 02/14/22 furosemide 20 mg tablet 20 mg PO BID #90 tab 02/14/22 loratadine 10 mg tablet 10 mg PO DAILY #90 tab 02/14/22 Desenex 1 applic TOPICAL BID 02/27/22 Spiriva Respimat 2 puff INHALATION DAILY 02/27/22 atorvastatin 40 mg PO QHS 02/27/22 azelastine 1 spray INTRANASAL BID 02/27/22 budesonide-formoterol [Symbicort] 2 puff INHALATION BID 02/27/22 cholecalciferol (vitamin D3) 50,000 unit PO FR 02/27/22 guaifenesin 600 mg PO BID 02/27/22 levothyroxine 50 mcg PO DAILY 02/27/22 melatonin 10 mg PO QHS 02/27/22 nifedipine 30 mg PO BID 02/27/22 spironolactone 25 mg PO QHS 02/27/22 sucralfate 1 g PO TID 02/27/22 azithromycin [Zithromax] 500 mg PO DAILY 5 Days #5 tab 02/28/22 cefdinir 300 mg PO BID #10 cap 02/28/22 Hospital Course Summary of Care Provided Minutes Spent on Discharge: 32 Hospital Course: Patient is a 57-year-old lady presented with progressive shortness of breath productive cough. Imaging studies demonstrated patchy bibasilar infiltrate prominent on the right be 1. Suspected community-acquired pneumonia ? Patient has been admitted to regular nursing floor currently being managed with broad-spectrum antibiotic therapy with Rocephin and azithromycin. Patient had apparently received Levaquin in the ED and she did develop itching this had to be discontinued. She was also placed on supplemental oxygen titrated to keep oxygen saturation greater than 90 cultures were sent ? 02/28/2022atient seen she also found to require oxygen remains afebrile and WBC count remains within normal limits. She had a slightly elevated D-dimer plan is for patient to undergo subsequent evaluation with CT of the chest if negative patient will be discharged home with oral antibiotics ? CT of the chest obtained came back negative patient discharged on oral antibiotics 2. Pleuritic chest pain ? Possibly related to above patient however states she has had pulmonary embolism in the past. Did not find that in her records I did D-dimer and if positive patient will undergo subsequent evaluation with CTA of the chest after being prepped for her dye allergy -02/28/2022 patient D-dimer came back elevated plan is for patient to undergo CT of the chest ? CT of the chest obtained came back negative 3. Previous history of CVA ? Per patient with residual short-term memory loss 4. Hypertension - Blood pressure controlled, home medications continued with dose adjustment as needed 5. Hypothyroidism - Patient is on levothyroxine home dose continued 6. Class III obesity with BMI of 45.8 ? Weight loss advised 7. Overlap syndrome with COPD and asthma ? Aerosol treatment as needed 8. Schizophrenia ? Per history currently not on any psychotropic medications 9. Dyslipidemia -Patient is on statin therapy, continued at home dose 10. Tobacco dependence - Counseled on cessation, offered nicotine patch for tobacco cravings 11. DVT prophylaxis ? Lovenox Physical Exam Narrative GENERAL: cooperative HEENT: Atraumatic; EYES; Anicteric, Normal Conjunctiva NECK; supple, normal thyroid, RESPIRATORY: Diminished to auscultation CARDIOVASCULAR: Regular S1 S2, GI: soft, normoactive bowel sounds, : No Renal angle tenderness; EXTREMITIES: No edema, no clubbing, MUSCULOSKELETAL: no muscle wasting NEURO: Awake; no lateralizing signs. SKIN: No Rash PSYCH; Flat affect Weight / BMI Weight Weight: 116.4 kg Body Mass Index (BMI) 44.2 ABG / Lab / Microbiology Data Result Diagrams: 02/28/22 05:10 02/28/22 05:10 Laboratory: Laboratory Results - last 24 hr 02/28/22 05:10: WBC 7.3, RBC 4.72, Hgb 14.5, Hct 44.0, MCV 93.2, MCH 30.7, MCHC 33.0, RDW Std Deviation 48.8 H, RDW Coeff of Yonathan 14.3, Plt Count 235, MPV 11.0, Immature Gran % (Auto) 0.400, Neut % (Auto) 63.1, Lymph % (Auto) 24.4, [place] % (Auto) 8.8, Eos % (Auto) 3.0, Baso % (Auto) 0.3, Absolute Neuts (auto) 4.6, Absolute Lymphs (auto) 1.77, Nucleated RBC % 0 02/28/22 05:10: Sodium 138, Potassium 3.8, Chloride 106, Carbon Dioxide 24.0, Anion Gap 8, BUN 13, Creatinine 1.18 H, Estim Creat Clear Calc 44.88, Est GFR (MDRD) Af Amer 61, Est GFR (MDRD) Non-Af 50 L, BUN/Creatinine Ratio 11.0, Glucose 98, Calcium 9.2 Microbiology: Microbiology 02/27/22 14:30 Urine, Random Streptococcus pneumoniae Antigen (M - Final 02/27/22 14:30 Urine, Random Legionella Antigen - Final 02/27/22 10:45 Nasal Secretion SARS-CoV-2 Antigen (Rapid) - Final Radiography Diagnostic Testing: Radiology Impression Chest CTA 02/28/22 08:03 IMPRESSION: No central or segmental pulmonary embolism. Electronically Signed: Trav Paul MD (Brooks) at 14:29 EDT Reading Location ID and State: [facility] / [place] , Service support , D/C Instructions Discharge Diet: No restrictions Discharge Activity: Return to Normal Activity Call your doctor if you observe: Fever of 101 or Higher, Shortness of breath, Fainting spells and Chest pain Meaningful Use Info Meaningful Use Diagnoses (Choose all that apply): None applicable Discharge Plan Admission Admit Date/Time: 02/27/22 13:45 Attending Provider: Chepe Monsivais Primary Care Provider: Scarlet Navarro Discharge Orders/Prescriptions Prescriptions: New cefdinir 300 mg capsule 300 mg PO BID Qty: 10 RF: 0 azithromycin [Zithromax] 500 mg tablet 500 mg PO DAILY 5 Days Qty: 5 RF: 0 Continued nitroglycerin 0.4 mg tablet, sublingual 0.4 mg SUBLINGUAL PRN PRN (Reason: CHEST PAIN) Qty: 25 RF: 3 omeprazole 40 mg capsule,delayed release(DR/EC) 40 mg PO DAILY RF: 0 prednisolone acetate 1 % drops,suspension 1 drp EACH EYE Q4H PRN PRN (Reason: Inflammation) RF: 0 lidocaine 5 % adhesive patch,medicated 1 patch topical DAILY PRN (Reason: Pain) RF: 0 atorvastatin 40 mg tablet 40 mg PO QHS RF: 0 sucralfate 1 gram tablet 1 g PO TID RF: 0 Desenex 2 % powder 1 applic TOPICAL BID RF: 0 spironolactone 25 mg tablet 25 mg PO QHS RF: 0 nifedipine 60 mg tablet extended release 24hr 30 mg PO BID RF: 0 levothyroxine 50 mcg tablet 50 mcg PO DAILY RF: 0 cholecalciferol (vitamin D3) 1,250 mcg (50,000 unit) capsule 50,000 unit PO FR RF: 0 budesonide-formoterol [Symbicort] 160-4.5 mcg/actuation HFA aerosol inhaler 2 puff INHALATION BID RF: 0 guaifenesin 1,200 mg tablet extended release 12hr 600 mg PO BID RF: 0 azelastine 205.5 mcg (0.15 %) spray,non-aerosol 1 spray intranasal BID RF: 0 melatonin 10 mg capsule 10 mg PO QHS RF: 0 Spiriva Respimat 1.25 mcg/actuation mist 2 puff inhalation DAILY RF: 0 montelukast [Singulair] 10 mg tablet 10 mg PO QHS Qty: 90 RF: 1 albuterol sulfate 90 mcg/actuation HFA aerosol inhaler 2 puff inhalation Q4H PRN (Reason: shortness of breath or wheezing) Qty: 8.5 RF: 6 ondansetron 4 mg tablet,disintegrating 4 mg PO Q8H PRN (Reason: nausea and vomiting) Qty: 14 RF: 0 aspirin 81 mg tablet,delayed release (DR/EC) 81 mg PO DAILY Qty: 90 RF: 1 losartan 100 mg tablet 100 mg PO DAILY Qty: 90 RF: 1 hydralazine 50 mg tablet 50 mg PO TID Qty: 270 RF: 3 polyethylene glycol 3350 [Miralax] 17 gram/dose powder 17 g PO BID PRN (Reason: Constipation) Qty: 238 RF: 1 fluticasone propionate 50 mcg/actuation spray,suspension 1 spray NASAL BID Qty: 16 RF: 1 furosemide 20 mg tablet 20 mg PO BID Qty: 90 RF: 1 loratadine 10 mg tablet 10 mg PO DAILY Qty: 90 RF: 1 Referrals / Follow Up: Scarlet Navarro MD [Primary Care Provider] - Within 1 Week Disposition Disposition (needs filled in before D/C Order can be placed): Home, Self Care Charges/Coding Visit Charges OBSV E&M: 81500 Observation care discharge
--- NOTE | 2022-02-28 15:54 | NURSING ---
Reviewed charting with Pily Owens RN
== END 2022-02-28 14:46 | disposition home or self-care (01) ==
LOC: ED 11:37 → PCU 13:59
PROVIDERS: Admitting Provider Internal Medicine; Emergency Provider Emergency Medicine; PCP Internal Medicine; Visit Provider Internal Medicine
DX: J18.9 Pneumonia, unspecified organism (principal); J44.0 Chronic obstructive pulmonary disease with (acute) lower respiratory infection; I13.0 Hypertensive heart and chronic kidney disease with heart failure and stage 1 through stage 4 chronic kidney disease, or unspecified chronic kidney disease; I50.9 Heart failure, unspecified; F31.9 Bipolar disorder, unspecified; I48.0 Paroxysmal atrial fibrillation; E66.01 Morbid (severe) obesity due to excess calories; Z68.42 Body mass index [BMI] 45.0-49.9, adult; F17.210 Nicotine dependence, cigarettes, uncomplicated; N18.9 Chronic kidney disease, unspecified; E78.5 Hyperlipidemia, unspecified; E03.9 Hypothyroidism, unspecified; Z79.899 Other long term (current) drug therapy; Z79.890 Hormone replacement therapy; Z79.51 Long term (current) use of inhaled steroids; M19.90 Unspecified osteoarthritis, unspecified site; K21.9 Gastro-esophageal reflux disease without esophagitis; Z86.711 Personal history of pulmonary embolism; G47.33 Obstructive sleep apnea (adult) (pediatric); Z79.82 Long term (current) use of aspirin
CPT/HCPCS: 36415; 71045; 71275; 80048; 83605; 85025; 85379; 87040; 87070; 87205; 87449; 87811; 92507; 92610; 94640; 96365; 96366; 96367; 96372; 96375; 96376; 97166; 97802; 99218; 99251; 99285; 99406; J7050; A4216; G0378; G0463; J0696

== ENCOUNTER → 2022-03-09 | Outpatient (CLI) | payer MEDICAID, SELFPAY ==
--- NOTE | 2022-03-09 10:28 | VDLE_ITS ---
Reason For Study: Pain Procedure LEFT This is a venous duplex using B-mode, color GSV is normal. flow and spectral Doppler. CFV is compressible, spontaneous, phasic, Exam performed in department. competent, and demonstrates normal A preliminary report was called and/or faxed augmentation. to [facility]. FV is compressible, spontaneous, phasic, competent and demonstrates normal augmentation. POP V is compressible, spontaneous, phasic, competent and demonstrates normal augmentation. T/P Trunk is compressible. PTV is compressible. LT PerV is compressible. VL/Venous Duplex US, Unilateral Interpretation Summary There is no evidence of left lower extremity deep vein thrombosis. Left great s aphenous vein appears patent and compressible segmentally. Ordering Physician: Charli Matos Referring Physician: Scarlet Navarro Performed By: Kathrine Calhoun RVT
== END | disposition home or self-care (01) ==
LOC: CVS 10:27
PROVIDERS: PCP Internal Medicine; Referring Provider Nurse Practitioner Family; Visit Provider Nurse Practitioner Family
DX: M79.662 Pain in left lower leg (principal)
CPT/HCPCS: 93971

== ENCOUNTER 2022-03-13 20:17 | Inpatient (IN) | payer MEDICAID, SELFPAY ==
[2022-03-13 20:19] VITALS: BP 113/57; PULSE 97; RESP 18; TEMP 36.8; O2SAT 99; BMI 45.6
--- NOTE | 2022-03-13 20:23 | CT_ITS ---
STUDY: CT Abdomen And Pelvis W/O Contrast Injection 03/13/2022 9:05 PM REASON FOR EXAM: Female, 57 years old. Technologist Notes LEFT SIDED ABD PAIN, N/V, CONSTIPATION, DIZZINESS, HX GB PAIN Pain left, n/v TECHNIQUE: Transaxial images were obtained without oral contrast, and without intravenous contrast. Individualized dose optimization techniques were used for this CT. COMPARISON: 10.05.21. FINDINGS: The visualized lung bases are unremarkable. The visualized portions of the heart are within normal limits. Unremarkable liver. There are surgical clips in the gallbladder fossa consistent with a prior cholecystectomy. Unremarkable spleen. Unremarkable pancreas. Unremarkable bilateral adrenal glands. No acute findings of the right kidney. No acute findings of the left kidney. There is a small hiatal hernia. Unremarkable small intestine. There is wall thickening of the descending colon. There is also questionable inflammation around the colon. This can suggest a colitis. The appendix is visualized and appears unremarkable. There are no acute findings of the abdominal aorta. Unremarkable inferior vena cava. Subcentimeter mesenteric lymph nodes. Unremarkable urinary bladder. There is atrophy of the uterus. There is an umbilical hernia containing fat. There are diffuse degenerative changes of the visualized lumbar spine. CT/Abdomen/Pelvis without Cont IMPRESSION: (NOT LISTED IN ORDER OF SIGNIFICANCE) Mild colitis of the descending colon. Other findings as above. Electronically Signed: Isaac Martinez MD at 21:07 EDT ,
--- NOTE | 2022-03-13 20:25 | EDS_ITS ---
HPI HPI - GI History of Present Illness Chief Complaint: Abd Pain Informant: patient and EMS Abdominal Pain/Flank Pain Onset: Today Context: Gradual Onset Timing: Continuous Quality: Aching Location: LUQ and LLQ Current Severity: Severe Maximum Severity: Severe Worsened by: - (Vomiting) Relieved by: Nothing Nausea/Vomiting/Emesis GI Symptom: Positive for Nausea and Vomiting Onset: Today Quality: Positive for Nonbilious; Negative for Blood streaks, Coffee ground and Hematemesis Severity: Severe Diarrhea/Melena/Hematochezia GI Symptom: Positive for - (No bowel movement today, usually goes every day; last 1 was yesterday); Negative for Diarrhea, Melena and Hematochezia Associated Symptoms Associated Symptoms: Negative for Dysuria, Frequency, Hematuria and Urgency Narrative Narrative: Patient has been having abdominal pain all day, progressively getting worse vomiting feels like she needs to have a bowel movement but cannot, she tried a laxative but it did not do anything. She cannot keep down any fluids. She lives alone and felt dizzy every time she stood up so she called EMS and presents by ambulance. History of a prior cholecystectomy no other abdominal surgeries that she can recall right now. She was given Zofran ODT by EMS, she continues to vomit upon initial evaluation. She has many medication allergies, the list is noted. She was recently diagnosed with pneumonia, completed treatment, she states she feels better and has no thoracic symptoms now. [facility] Medical History Abdominal pain Allergic rhinitis Aortic valve insufficiency Arthralgia of right hip Arthritis Asthma Back pain Bilateral flank pain Bilateral foot pain Bipolar 1 disorder Bipolar disorder Blackout Bladder disease Cancer Cardiology follow-up encounter Chest pain Chest pain Chest pain Chest pain CKD (chronic kidney disease) Conversion disorder Conversion disorder with abnormal movement Convulsion, non-epileptic COPD (chronic obstructive pulmonary disease) COPD, mild CPAP (continuous positive airway pressure) dependence Cyst Debility Depression Diarrhea Dietary restriction Difficulty chewing Dysuria Easy bruising Enlarged aorta Excessive bleeding Gastric reflux Gastritis GERD (gastroesophageal reflux disease) GERD (gastroesophageal reflux disease) Heart failure High cholesterol Hip dislocation, right History of abnormal cervical Pap smear History of atrial fibrillation History of CHF (congestive heart failure) History of echocardiogram History of edema History of hiatal hernia History of IBS History of stress test History of ulceration HLD (hyperlipidemia) HTN (hypertension) Hx of tilt table evaluation Hypertensive crisis without congestive heart failure Hypokalemia Hyponatremia Hyponatremia Hypothyroidism Injury of head and neck Intertriginous dermatitis associated with moisture Kidney disease Left arm swelling Leg cramps Marijuana use Migraine Migraines Morbid obesity Myositis Nausea & vomiting Nausea and vomiting Non-convulsive status epilepticus Non-rheumatic mitral regurgitation Nonrheumatic aortic (valve) insufficiency Open wound Oral candidiasis Orthostatic hypotension DAPHNE (obstructive sleep apnea) Osteoarthritis Osteoarthritis of right hip PAF (paroxysmal atrial fibrillation) Pain of left calf Peripheral artery disease Post-menopausal Psychosis Pulmonary embolism Right hip pain Sarcoidosis Schizo NEC, chrn/exacerb Schizophrenia Seizures Shortness of breath on exertion Smoker Stroke Stroke/cerebrovascular accident Syncope Thyroid disease TIA (transient ischemic attack) Tobacco abuse Venous insufficiency of both lower extremities Walker as ambulation aid Wears dentures Home Medications montelukast 10 mg tablet 10 mg PO QHS #90 tab 09/26/21 [Rx Last Taken 02/26/22] albuterol sulfate 90 mcg/actuation aerosol inhaler 2 puff INHALATION Q4H PRN #8.5 g 11/23/21 [Rx Last Taken 02/27/22] ondansetron 4 mg disintegrating tablet 4 mg PO Q8H PRN #14 tab 11/29/21 [Rx Last Taken 02/26/22] nitroglycerin 0.4 mg sublingual tablet 0.4 mg SUBLINGUAL PRN PRN #25 tab 12/05/21 [Rx Last Taken Unknown] omeprazole 40 mg PO DAILY 12/07/21 [History Last Taken 02/26/22] aspirin 81 mg tablet,delayed release 81 mg PO DAILY #90 tab 12/16/21 [Rx Last Taken 02/27/22] hydralazine 50 mg tablet 50 mg PO TID #270 tab 12/19/21 [Rx Last Taken 02/27/22] losartan 100 mg tablet 100 mg PO DAILY #90 tab 12/19/21 [Rx Last Taken 02/27/22] lidocaine 1 patch TOPICAL DAILY PRN 12/26/21 [History Last Taken 02/24/22] polyethylene glycol 3350 17 gram/dose oral powder 17 g PO BID PRN #238 g 12/26/21 [Rx Last Taken Unknown] fluticasone propionate 50 mcg/actuation nasal spray,suspension 1 spray NASAL BID #16 g 02/14/22 [Rx Last Taken 02/27/22] furosemide 20 mg tablet 20 mg PO BID #90 tab 02/14/22 [Rx Last Taken 02/27/22] loratadine 10 mg tablet 10 mg PO DAILY #90 tab 02/14/22 [Rx Last Taken 02/27/22] Desenex 1 applic TOPICAL BID 02/27/22 [History Last Taken 02/26/22] Spiriva Respimat 2 puff INHALATION DAILY 02/27/22 [History Last Taken 02/27/22] atorvastatin 40 mg PO QHS 02/27/22 [History Last Taken 02/26/22] azelastine 1 spray INTRANASAL BID 02/27/22 [History Last Taken 02/27/22] budesonide-formoterol [Symbicort] 2 puff INHALATION BID 02/27/22 [History Last Taken 02/27/22] cholecalciferol (vitamin D3) 50,000 unit PO FR 02/27/22 [History Last Taken 02/23/22] levothyroxine 50 mcg PO DAILY 02/27/22 [History Last Taken 02/27/22] melatonin 10 mg PO QHS 02/27/22 [History Last Taken 02/26/22] nifedipine 30 mg PO BID 02/27/22 [History Last Taken 02/27/22] spironolactone 25 mg PO QHS 02/27/22 [History Last Taken 02/26/22] sucralfate 1 g PO TID 02/27/22 [History Last Taken 02/27/22] prednisolone acetate 1 % eye drops,suspension 1 drp EACH EYE BID ml 03/09/22 [History Last Taken Unknown] guaifenesin 1,200 mg tablet, extended release 12 hr 600 mg PO BID #60 tab 03/10/22 [Rx Last Taken Unknown] Allergy/AdvReac Type Severity Reaction Status Date / Time adhesive tape Allergy Rash Verified 03/13/22 20:19 atropine sulfate Allergy Hives Verified 03/13/22 20:19 [From ] codeine phosphate Allergy breathing Verified 03/13/22 20:19 [From Tylenol-Codeine #3] problems divalproex sodium Allergy Unknown Verified 03/13/22 20:19 [From Depakote] hydromorphone HCl Allergy facial Verified 03/13/22 20:19 [From Dilaudid] blisters,itching hyoscyamine sulfate Allergy Hives Verified 03/13/22 20:19 [From ] Iodinated Contrast Media Allergy breathing Verified 03/13/22 20:19 [Iodinated Contrast Media - problems IV Dye] and my bp went up latex Allergy Rash Verified 03/13/22 20:19 pantoprazole sodium Allergy Rash Verified 03/13/22 20:19 [From Protonix] phenobarbital [From ] Allergy Hives Verified 03/13/22 20:19 promethazine HCl Allergy Anaphylaxis Verified 03/13/22 20:19 [From Phenergan] ramipril Allergy Unknown Verified 03/13/22 20:19 scopolamine hydrobromide Allergy Hives Verified 03/13/22 20:19 [From ] tramadol Allergy Itching Verified 03/13/22 20:19 ziprasidone mesylate Allergy Unknown Verified 03/13/22 20:19 [From Geodon] levofloxacin [From Levaquin] AdvReac Itching Verified 03/13/22 20:24 metoclopramide [From Reglan] AdvReac Other Verified 03/13/22 20:23 Sulfa (Sulfonamide AdvReac Vomiting Verified 03/13/22 20:19 Antibiotics) ziprasidone HCl [From Geodon] AdvReac tremors Verified 03/13/22 20:19 VIDODIN TUSS Allergy Itching Uncoded 03/13/22 20:19 Amlodipine AdvReac Vomiting Uncoded 03/13/22 20:19 Family History Sister Myocardial infarction Colon cancer Mother Hypertension Arthritis Brain aneurysm Sister Colon cancer Surgical History bladder sling History of esophagogastroduodenoscopy (EGD) History of laparoscopic cholecystectomy History of uterine suspension procedure Hx of cholecystectomy Hx of colonoscopy left foot S/P carpal tunnel release Social History household members: none number of children: 4 current occupational status: unemployed history of recent travel: No Smoking Status: Current every day smoker tobacco type: cigarettes Tobacco: How many years used: 26 alcohol intake: never substance use type: does not use caffeine: Yes Type: coffee what type of physical activity do you participate in: none seatbelt use: never do you feel safe at home: Yes additional social history: single ROS ROS ED Constitutional Constitutional ED: Reports malaise; Denies chills or fever(s) Eyes Eyes: Denies change in vision or diplopia ENT ENT ED: Denies rhinorrhea or sore throat Cardiovascular Cardiovascular: Denies chest pain or palpitations Respiratory/Chest Respiratory/Chest: Denies cough or dyspnea Gastrointestinal Gastrointestinal: Reports as per HPI, abdominal pain, nausea and vomiting; Denies diarrhea Genitourinary Genitourinary ED: Denies dysuria or hematuria Musculoskeletal Musculoskeletal: Denies back pain or neck pain Integumentary Denies abscess or rash Neurologic Neurologic: Denies headache(s), paresthesias or weakness Psychiatric Psychiatric: Denies anxiety or suicidal thoughts EXAM Physical Exam Const Vital Signs: 03/13/22 20:19 Temperature 98.3 F Temperature Source Temporal Pulse Rate 97 Respiratory Rate 18 Blood Pressure 113/57 L Blood Pressure Mean 75 Pulse Ox 99 Oxygen Delivery Method Room Air Positive well nourished and well developed General Appearance ED: well developed and NAD HEENT Reports moist mucous membranes normocephalic and atraumatic Eyes PERRL and EOMs intact bilaterally Neck full ROM and supple Resp normal respiratory effort and clear to auscultation bilaterally Cardio regular rate, regular rhythm and no murmurs Rate: Negative for tachycardic GI non-distended GI Narrative: Very tender throughout the left abdomen. No rebound tenderness. Not able to palpate for mass/pulsatile mass, morbid obesity limits the exam here. Auscultation: hypoactive bowel sounds Palpation: soft Back/Spine no CVA tenderness General Back: other FROM Extremity normal to inspection General Extremety ED: Negative for edema, pulses abnormal or tenderness General Extremity: Negative for edema or pulses abnormal Neuro oriented x3, CN's II-XII intact bilaterally and no sensory deficits noted Sensorium / Orientation: awake and alert Motor Exam: strength 5/5 throughout Skin no rashes or lesions noted and no wounds MDM MDM MDM Narrative Medical decision making narrative: Patient has a significant leukocytosis with findings of colitis of the descending colon, consistent with the location of her pain and tenderness. Patient was in a lot of pain and vomiting, she is a little improved with another dose of Zofran, her allergy list really limits what we can give her safely, so I stuck with additional Zofran as well as fentanyl for pain. Given her leukocytosis I suspect this is potentially infectious until proven otherwise although she is not having diarrhea, she may need further observation, treatment, work-up, discussed with hospitalist. Lab Data Attestation: I reviewed the patient's lab results. Labs: Laboratory Results - last 24 hr 03/13/22 03/13/22 20:25 20:25 WBC 21.8 H RBC 5.29 Hgb 16.2 H Hct 47.6 H MCV 90.0 MCH 30.6 MCHC 34.0 RDW Std Deviation 47.8 H RDW Coeff of Yonathan 14.6 Plt Count 298 MPV 10.1 Immature Gran % (Auto) 0.700 Neut % (Auto) 88.3 H Lymph % (Auto) 7.0 L [place] % (Auto) 2.9 Eos % (Auto) 0.8 Baso % (Auto) 0.3 Absolute Neuts (auto) 19.2 H Absolute Lymphs (auto) 1.52 Nucleated RBC % 0 Sodium 137 Potassium 3.7 Chloride 106 Carbon Dioxide 25.0 Anion Gap 6 BUN 14 Creatinine 1.52 H Estim Creat Clear Calc 34.84 Est GFR (MDRD) Af Amer 45 L Est GFR (MDRD) Non-Af 37 L BUN/Creatinine Ratio 9.2 L Glucose 128 H Calcium 8.8 Total Bilirubin 0.70 AST 17 ALT 42 Alkaline Phosphatase 119 H Total Protein 6.6 Albumin 3.6 Globulin 3.0 Albumin/Globulin Ratio 1.2 Radiography Diagnostic Testing: Clinical Impression(s) from Imaging Studies Abdomen/Pelvis CT 03/13/22 20:23 IMPRESSION: (NOT LISTED IN ORDER OF SIGNIFICANCE) Mild colitis of the descending colon. Other findings as above. Electronically Signed: Isaac Martinez MD at 21:07 EDT , Discharge Plan Dx/Rx/DC Orders Clinical Impression: Acute colitis Disposition [facility]: [facility]
[2022-03-13] MEDS: fentaNYL 100 MCG/2 ML Ampul 50 MCG IV (20:31)
[2022-03-13] MEDS: 0.9% Normal Saline 1,000 ML 1000 ML IV (20:31)
[2022-03-13] MEDS: Ondansetron 4 MG/2 ML Vial IV (20:31)
[2022-03-13 20:46] LABS: Absolute Lymphocyte Count 1.52 X10^3/uL (0.83-4.51); Absolute Neutrophil Count 19.2 X10^3/uL (2.0-7.7); Basophil# 0.06 X10^3/uL; Basophil% 0.3 % (0-1); Eosinophil# 0.17 X10^3/uL; Eosinophils% 0.8 % (0-5); Hematocrit 47.6 % (37-47); Hemoglobin 16.2 g/dL (12.0-15.0); Lymphocyte # 1.52 X10^3/ul (0.83-4.51); Mean Corpuscular Hgb 30.6 pg (27.0-32.0); Mean Platelet Vol. 10.1 fl (6.2-12.0); Monocyte# 0.64 X10^3/uL; Monocyte% 2.9 % (0-10); NRBC Flagged by Analyzer 0 % (0-5); Neutrophil # 19.24 X10^3/uL (2.7-7.7); Neutrophil % 88.3 % (47-70); Platelet Count 298 K/mm3 (150-450); RBC Distribution Width CV 14.6 % (11.6-14.6); RBC Distribution Width SD 47.8 fl (35.1-43.9); Red Blood Count 5.29 M/mm3 (4.2-5.4); White Blood Count 21.8 K/mm3 (4.4-11.0)
[2022-03-13 20:57] LABS: ALB/GLOB Ratio 1.2 RATIO (0.9-2.4); AST(SGOT) 17 U/L (15-37); Alanine Aminotransfer ALT/SGPT 42 U/L (13-56); Albumin, Serum 3.6 g/dL (3.2-5.0); Alkaline Phosphatase 119 U/L (45-117); Anion Gap 6 (5-15); BUN 14 mg/dL (7-18); BUN/Creat Ratio 9.2 RATIO (10-20); Calcium,Total 8.8 mg/dL (8.5-10.1); Chloride 106 mmol/L (98-107); Creatinine, Serum 1.52 mg/dL (0.55-1.02); EST Glomerular Filtration Rate 37 mL/min (>60); Est Glom Filt Rate - Afr Amer 45 mL/min (>60); Estimated Creatinine Clearance 34.84 ml/min; Glucose 128 mg/dL (74-106); Potassium 3.7 mmol/L (3.5-5.1); Protein, Total 6.6 g/dL (6.4-8.2); Sodium Level 137 mmol/L (136-145)
--- NOTE | 2022-03-13 21:30 | PCM.HP.STD ---
HPI - General General Date of Admission: 03/13/22 HPI Narrative NIGHAT TIMMONS, is a 57 F with a significant history of CKD stage IIIa; COPD on inhalers; and schizophrenia who presents to the emergency department with excruciating abdominal pain. Her pain is excruciatingly and started when she was drinking coffee. The pain is constant. The pain is located at the upper umbilical region. The pain is sharp. The pain is nonradiating. The pain worsens with bearing down. She denies any ameliorating factors to the pain. Associated with her symptoms is nausea and multiple episodes of vomiting. She denies fever. She reports chills. She reports anorexia. Last time her bowels moved was a day before presentation She reports thrush her mouth. Of note patient was recently treated for pneumonia with steroids and antibiotics. [facility] Medical History Abdominal pain Allergic rhinitis Aortic valve insufficiency Arthralgia of right hip Arthritis Asthma Back pain Bilateral flank pain Bilateral foot pain Bipolar 1 disorder Bipolar disorder Blackout Bladder disease Cancer Cardiology follow-up encounter Chest pain Chest pain Chest pain Chest pain CKD (chronic kidney disease) Conversion disorder Conversion disorder with abnormal movement Convulsion, non-epileptic COPD (chronic obstructive pulmonary disease) COPD, mild CPAP (continuous positive airway pressure) dependence Cyst Debility Depression Diarrhea Dietary restriction Difficulty chewing Dysuria Easy bruising Enlarged aorta Excessive bleeding Gastric reflux Gastritis GERD (gastroesophageal reflux disease) GERD (gastroesophageal reflux disease) Heart failure High cholesterol Hip dislocation, right History of abnormal cervical Pap smear History of atrial fibrillation History of CHF (congestive heart failure) History of echocardiogram History of edema History of hiatal hernia History of IBS History of stress test History of ulceration HLD (hyperlipidemia) HTN (hypertension) Hx of tilt table evaluation Hypertensive crisis without congestive heart failure Hypokalemia Hyponatremia Hyponatremia Hypothyroidism Injury of head and neck Intertriginous dermatitis associated with moisture Kidney disease Left arm swelling Leg cramps Marijuana use Migraine Migraines Morbid obesity Myositis Nausea & vomiting Nausea and vomiting Non-convulsive status epilepticus Non-rheumatic mitral regurgitation Nonrheumatic aortic (valve) insufficiency Open wound Oral candidiasis Orthostatic hypotension DAPHNE (obstructive sleep apnea) Osteoarthritis Osteoarthritis of right hip PAF (paroxysmal atrial fibrillation) Pain of left calf Peripheral artery disease Post-menopausal Psychosis Pulmonary embolism Right hip pain Sarcoidosis Schizo NEC, chrn/exacerb Schizophrenia Seizures Shortness of breath on exertion Smoker Stroke Stroke/cerebrovascular accident Syncope Thyroid disease TIA (transient ischemic attack) Tobacco abuse Venous insufficiency of both lower extremities Walker as ambulation aid Wears dentures Home Medications montelukast 10 mg tablet 10 mg PO QHS #90 tab 09/26/21 [Rx Last Taken 02/26/22] albuterol sulfate 90 mcg/actuation aerosol inhaler 2 puff INHALATION Q4H PRN #8.5 g 11/23/21 [Rx Last Taken 02/27/22] ondansetron 4 mg disintegrating tablet 4 mg PO Q8H PRN #14 tab 11/29/21 [Rx Last Taken 02/26/22] nitroglycerin 0.4 mg sublingual tablet 0.4 mg SUBLINGUAL PRN PRN #25 tab 12/05/21 [Rx Last Taken Unknown] omeprazole 40 mg PO DAILY 12/07/21 [History Last Taken 02/26/22] aspirin 81 mg tablet,delayed release 81 mg PO DAILY #90 tab 12/16/21 [Rx Last Taken 02/27/22] hydralazine 50 mg tablet 50 mg PO TID #270 tab 12/19/21 [Rx Last Taken 02/27/22] losartan 100 mg tablet 100 mg PO DAILY #90 tab 12/19/21 [Rx Last Taken 02/27/22] lidocaine 1 patch TOPICAL DAILY PRN 12/26/21 [History Last Taken 02/24/22] polyethylene glycol 3350 17 gram/dose oral powder 17 g PO BID PRN #238 g 12/26/21 [Rx Last Taken Unknown] fluticasone propionate 50 mcg/actuation nasal spray,suspension 1 spray NASAL BID #16 g 02/14/22 [Rx Last Taken 02/27/22] furosemide 20 mg tablet 20 mg PO BID #90 tab 02/14/22 [Rx Last Taken 02/27/22] loratadine 10 mg tablet 10 mg PO DAILY #90 tab 02/14/22 [Rx Last Taken 02/27/22] Desenex 1 applic TOPICAL BID 02/27/22 [History Last Taken 02/26/22] Spiriva Respimat 2 puff INHALATION DAILY 02/27/22 [History Last Taken 02/27/22] atorvastatin 40 mg PO QHS 02/27/22 [History Last Taken 02/26/22] azelastine 1 spray INTRANASAL BID 02/27/22 [History Last Taken 02/27/22] budesonide-formoterol [Symbicort] 2 puff INHALATION BID 02/27/22 [History Last Taken 02/27/22] cholecalciferol (vitamin D3) 50,000 unit PO FR 02/27/22 [History Last Taken 02/23/22] levothyroxine 50 mcg PO DAILY 02/27/22 [History Last Taken 02/27/22] melatonin 10 mg PO QHS 02/27/22 [History Last Taken 02/26/22] nifedipine 30 mg PO BID 02/27/22 [History Last Taken 02/27/22] spironolactone 25 mg PO QHS 02/27/22 [History Last Taken 02/26/22] sucralfate 1 g PO TID 02/27/22 [History Last Taken 02/27/22] prednisolone acetate 1 % eye drops,suspension 1 drp EACH EYE BID ml 03/09/22 [History Last Taken Unknown] guaifenesin 1,200 mg tablet, extended release 12 hr 600 mg PO BID #60 tab 03/10/22 [Rx Last Taken Unknown] Allergy/AdvReac Type Severity Reaction Status Date / Time adhesive tape Allergy Rash Verified 03/13/22 20:19 atropine sulfate Allergy Hives Verified 03/13/22 20:19 [From ] codeine phosphate Allergy breathing Verified 03/13/22 20:19 [From Tylenol-Codeine #3] problems divalproex sodium Allergy Unknown Verified 03/13/22 20:19 [From Depakote] hydromorphone HCl Allergy facial Verified 03/13/22 20:19 [From Dilaudid] blisters,itching hyoscyamine sulfate Allergy Hives Verified 03/13/22 20:19 [From ] Iodinated Contrast Media Allergy breathing Verified 03/13/22 20:19 [Iodinated Contrast Media - problems IV Dye] and my bp went up latex Allergy Rash Verified 03/13/22 20:19 pantoprazole sodium Allergy Rash Verified 03/13/22 20:19 [From Protonix] phenobarbital [From ] Allergy Hives Verified 03/13/22 20:19 promethazine HCl Allergy Anaphylaxis Verified 03/13/22 20:19 [From Phenergan] ramipril Allergy Unknown Verified 03/13/22 20:19 scopolamine hydrobromide Allergy Hives Verified 03/13/22 20:19 [From ] tramadol Allergy Itching Verified 03/13/22 20:19 ziprasidone mesylate Allergy Unknown Verified 03/13/22 20:19 [From Geodon] levofloxacin [From Levaquin] AdvReac Itching Verified 03/13/22 20:24 metoclopramide [From Reglan] AdvReac Other Verified 03/13/22 20:23 Sulfa (Sulfonamide AdvReac Vomiting Verified 03/13/22 20:19 Antibiotics) ziprasidone HCl [From Geodon] AdvReac tremors Verified 03/13/22 20:19 VIDODIN TUSS Allergy Itching Uncoded 03/13/22 20:19 Amlodipine AdvReac Vomiting Uncoded 03/13/22 20:19 Family History Sister Myocardial infarction Colon cancer Mother Hypertension Arthritis Brain aneurysm Sister Colon cancer Surgical History bladder sling History of esophagogastroduodenoscopy (EGD) History of laparoscopic cholecystectomy History of uterine suspension procedure Hx of cholecystectomy Hx of colonoscopy left foot S/P carpal tunnel release Social History household members: none number of children: 4 current occupational status: unemployed history of recent travel: No Smoking Status: Current every day smoker tobacco type: cigarettes Tobacco: How many years used: 26 alcohol intake: never substance use type: does not use caffeine: Yes Type: coffee what type of physical activity do you participate in: none seatbelt use: never do you feel safe at home: Yes additional social history: single ROS ROS Narrative Pertinent positives and pertinent negatives as noted in HPI. All other systems were reviewed and are negative. Vital Signs Vital Signs Vital Signs: 03/13/22 20:19 Temperature 98.3 F Temperature Source Temporal Pulse Rate 97 Respiratory Rate 18 Blood Pressure 113/57 L Blood Pressure Mean 75 Pulse Ox 99 Oxygen Delivery Method Room Air Weight Weight: 120.519 kg Body Mass Index (BMI) 45.6 Physical Exam Narrative Physical exam: General: Well-nourished, well-developed. Head: Normocephalic, atraumatic, no tenderness Eyes: Vision is grossly intact. EOMI ENT: Thrush on tongue no trauma, no rhinorrhea Neck: Nontender, full range of motion, no spinal tenderness, deformities, step-off CVS: Regular rate and rhythm. S1-S2 present. No murmur, gallop or rub. Respiratory : clear to auscultation bilaterally, chest wall nontender, no wheezing Abdomen: Soft, tender, nondistended, normal bowel sounds, no masses : Deferred Back: Nontender, no CVA tenderness, no midline spinal tenderness, deformities, step-offs Extremities: Nontender full range of motion, no trauma Skin: Normal color, no trauma, abrasions Neuro: Alert, oriented, cranial nerves II through XII grossly intact. Psychiatry: Normal mood. Normal affect. Not depressed. Not anxious. Results Lab / Micro Data Result Diagrams: 03/13/22 20:25 03/13/22 20:25 Labs: Laboratory Results - last 24 hr 03/13/22 20:25: WBC 21.8 H, RBC 5.29, Hgb 16.2 H, Hct 47.6 H, MCV 90.0, MCH 30.6, MCHC 34.0, RDW Std Deviation 47.8 H, RDW Coeff of Yonathan 14.6, Plt Count 298, MPV 10.1, Immature Gran % (Auto) 0.700, Neut % (Auto) 88.3 H, Lymph % (Auto) 7.0 L, [place] % (Auto) 2.9, Eos % (Auto) 0.8, Baso % (Auto) 0.3, Absolute Neuts (auto) 19.2 H, Absolute Lymphs (auto) 1.52, Nucleated RBC % 0 03/13/22 20:25: Sodium 137, Potassium 3.7, Chloride 106, Carbon Dioxide 25.0, Anion Gap 6, BUN 14, Creatinine 1.52 H, Estim Creat Clear Calc 34.84, Est GFR (MDRD) Af Amer 45 L, Est GFR (MDRD) Non-Af 37 L, BUN/Creatinine Ratio 9.2 L, Glucose 128 H, Calcium 8.8, Total Bilirubin 0.70, AST 17, ALT 42, Alkaline Phosphatase 119 H, Total Protein 6.6, Albumin 3.6, Globulin 3.0, Albumin/Globulin Ratio 1.2 Radiology Impression Abdomen/Pelvis CT 03/13/22 20:23 IMPRESSION: (NOT LISTED IN ORDER OF SIGNIFICANCE) Mild colitis of the descending colon. Other findings as above. Electronically Signed: Isaac Martinez MD at 21:07 EDT Reading Location ID and State: [facility] / [place] , Service support , Assessment & Plan Assessment/Plan (1) Acute colitis: PLAN: Acute colitis Abdomen pelvis CT was visualized and independently interpreted and I agree with radiologist interpretation. CBC reviewed showed white count of 21.8. Of note patient was recently on steroids. Patient with neutrophilia and lymphopenia. Discussed with ED doctor and patient will be started on ceftriaxone and Flagyl IV at the ED and continued. We will keep patient n.p.o. secondary to nausea and vomiting. Gentle IV hydration. CKD stage IIIb Stable Creatinine presentation was 1.52. Baseline creatinine is around 1.25. Trend BMP and avoid nephrotoxic's. Of note patient is on home Aldactone; furosemide and losartan. Above medications will be held since patient is n.p.o. with no meds as patient is having nausea and vomiting. Trend BMP. Thrush Consider nystatin swish and swallow when patient can tolerate p.o. Hypertension Blood pressure is stable. Home p.o. meds held. Placed on scheduled metoprolol and as needed hydralazine. Trend blood pressure and adjust blood pressure medications. Erythrocytosis Chronic Likely secondary to smoking and COPD. Trend CBC. DVT prophylaxis Subcutaneous Lovenox ordered. Charges/Coding Visit Charges Inpatient E&M: 21380 Init Hosp L3
[2022-03-13 21:44] VITALS: BP 112/60; PULSE 77; RESP 18; TEMP 36.6; O2SAT 98
[2022-03-13] MEDS: Ceftriaxone 1 GM/50 ML BAG IV (21:52)
[2022-03-13 22:11] VITALS: BMI 45.7
[2022-03-13] MEDS: metroNIDAZOLE 500 MG/100 ML BAG 100 MG IV (22:37)
[2022-03-13 22:45] VITALS: BP 103/51; PULSE 67; RESP 18; TEMP 37.7; O2SAT 96
[2022-03-13] MEDS: proCHLORPERazine 10 MG/2 ML Vial 5 MG IV (23:46)
[2022-03-13] MEDS: 0.9% Saline Lock 10 ML Syringe IV (23:46)
[2022-03-13] MEDS: prednisoLONE eye drops (5 mL) 1 DROP OPTH.BTL 1 DRP EACH EYE (23:55)
[2022-03-13] MEDS: Fluticasone 0.05% 1 SPRAY NASAL.SRY NASAL (23:56)
[2022-03-13] MEDS: Azelastine HCl NASAL.SRY 1 SPRAY NASAL (23:56)
[2022-03-14] VITALS (10 sets, daily range): BP systolic 107–143; BP diastolic 50–117; PULSE 56–88; RESP 16–21; TEMP 36.9–37.7; O2SAT 93–98
[2022-03-14] MEDS: 0.9% Saline Lock 10 ML Syringe IV ×3 (02:35→22:35)
[2022-03-14] MEDS: Morphine 2 MG/ML Syringe IV ×3 (02:35→22:35)
[2022-03-14] MEDS: metroNIDAZOLE 500 MG/100 ML BAG 100 MG IV ×3 (05:46→22:58)
[2022-03-14 06:19] LABS: Absolute Lymphocyte Count 0.94 X10^3/uL (0.83-4.51); Absolute Neutrophil Count 17.8 X10^3/uL (2.0-7.7); Basophil# 0.03 X10^3/uL; Basophil% 0.2 % (0-1); Eosinophil# 0.02 X10^3/uL; Eosinophils% 0.1 % (0-5); Hematocrit 46.1 % (37-47); Hemoglobin 15.4 g/dL (12.0-15.0); Lymphocyte # 0.94 X10^3/ul (0.83-4.51); Lymphocyte % 4.7 % (19-41); Mean Corp Hgb Conc 33.4 g/dL (32-36); Mean Corpuscular Hgb 30.7 pg (27.0-32.0); Mean Corpuscular Volume 91.8 fL (81-99); Mean Platelet Vol. 10.1 fl (6.2-12.0); Monocyte# 1.07 X10^3/uL; Monocyte% 5.4 % (0-10); NRBC Flagged by Analyzer 0 % (0-5); Neutrophil # 17.79 X10^3/uL (2.7-7.7); Platelet Count 258 K/mm3 (150-450); RBC Distribution Width SD 50.5 fl (35.1-43.9); Red Blood Count 5.02 M/mm3 (4.2-5.4)
[2022-03-14 06:41] LABS: Anion Gap 7 (5-15); BUN 20 mg/dL (7-18); BUN/Creat Ratio 15.3 RATIO (10-20); Calcium,Total 8.4 mg/dL (8.5-10.1); Chloride 108 mmol/L (98-107); Creatinine, Serum 1.31 mg/dL (0.55-1.02); EST Glomerular Filtration Rate 44 mL/min (>60); Est Glom Filt Rate - Afr Amer 54 mL/min (>60); Estimated Creatinine Clearance 40.42 ml/min; Glucose 117 mg/dL (74-106); Sodium Level 136 mmol/L (136-145)
[2022-03-14] MEDS: Budesonide Respules 0.5 MG/2 ML AMPUL.NEB. INHALATION ×2 (07:40→19:24)
[2022-03-14] MEDS: Ipratropium/Albuterol Sulfate 3 ML AMPUL.NEB INHALATION ×3 (07:40→19:24)
[2022-03-14] MEDS: proCHLORPERazine 10 MG/2 ML Vial 5 MG IV ×2 (09:00→15:06)
[2022-03-14] MEDS: Fluticasone 0.05% 1 SPRAY NASAL.SRY NASAL ×2 (09:09→22:28)
[2022-03-14] MEDS: Azelastine HCl NASAL.SRY 1 SPRAY NASAL ×2 (09:10→22:28)
[2022-03-14] MEDS: prednisoLONE eye drops (5 mL) 1 DROP OPTH.BTL 1 DRP EACH EYE ×2 (09:11→22:28)
[2022-03-14] MEDS: Enoxaparin 40 MG/0.4 ML Syringe SC (09:12)
[2022-03-14] MEDS: Metoprolol Tartrate 5 MG/5 ML Vial IV ×2 (09:13→15:11)
--- NOTE | 2022-03-14 11:00 | CASEMGMT ---
RN ESTEFANY Face to Face with patient for initial transition planning/care coordination assessment. RN CM introduced self and role at [facility]. Patient lying in bed, alert and oriented. Patient willing to participate in assessment and is able to answer all questions appropriately. Care providers, pharmacy, and demographics verified. Patient wishes to discharge home, denies need for home health at this time. Patient states she has no further needs or concerns at this time. CM to follow for discharge planning needs that may arise. PCP: Ramon Specialists: German, sizing sprayer; Joel, validation leader; Lacie, neurologist in [place] Preferred Pharmacy: [facility] Insurance: [employer] Prescription Benefit: yes Living Will/HPOA: none LNOK: daughter Living Arrangements: Patient lives alone in a 1st floor apartment with no steps to enter. Patient states she is independent at home. Transportation: [facility] van, insurance DME/HHC: Patient states she has shower chair, grab bars, rollator, cpap, and pulse ox at home. Patient states she has previously been to [facility]. No previous HHC. Disposition Plan: Patient to discharge home with family support [facility] Kathrine SMITH, RN, CM
--- NOTE | 2022-03-14 11:04 | PN.HOSP_ITS ---
Documented by User: Keely Solis NP-C 03/14/22 11:25 Subjective Subjective Patient seen and examined. Patient reports continue with moderate to severe abdominal pain, states pain medication has been effective at controlling pain but continues to have pain Objective Data Objective Data Vital Signs: Vital Signs Temp Pulse Resp BP Pulse Ox 98.7 F 82 20 H 143/117 H 93 03/14/22 09:07 03/14/22 09:13 03/14/22 09:07 03/14/22 09:07 03/14/22 09:07 Oxygen Flow Rate (L/min) 2 Oxygen Delivery Method Nasal Cannula Weight: 266 lb 5.094 oz Body Mass Index (BMI) 45.7 Intake & Output: Intake and Output for Last 24 Hours 03/12/22 03/13/22 03/14/22 23:59 23:59 23:59 Intake Total 1150 / 1150 Output Total 425 / 425 Balance 1150 / 950 -425 / -425 Lab / Micro Data Result Diagrams: 03/14/22 06:05 03/14/22 06:05 Labs: Laboratory Results - last 24 hr 03/13/22 20:25: WBC 21.8 H, RBC 5.29, Hgb 16.2 H, Hct 47.6 H, MCV 90.0, MCH 30 .6, MCHC 34.0, RDW Std Deviation 47.8 H, RDW Coeff of Yonathan 14.6, Plt Count 298, MPV 10.1, Immature Gran % (Auto) 0.700, Neut % (Auto) 88.3 H, Lymph % (Auto) 7.0 L, [place] % (Auto) 2.9, Eos % (Auto) 0.8, Baso % (Auto) 0.3, Absolute Neuts (auto) 19.2 H, Absolute Lymphs (auto) 1.52, Nucleated RBC % 0 03/13/22 20:25: Sodium 137, Potassium 3.7, Chloride 106, Carbon Dioxide 25.0, Anion Gap 6, BUN 14, Creatinine 1.52 H, Estim Creat Clear Calc 34.84, Est GFR (MDRD) Af Amer 45 L, Est GFR (MDRD) Non-Af 37 L, BUN/Creatinine Ratio 9.2 L, Glucose 128 H, Calcium 8.8, Total Bilirubin 0.70, AST 17, ALT 42, Alkaline Phosphatase 119 H, Total Protein 6.6, Albumin 3.6, Globulin 3.0, Albumin/Globulin Ratio 1.2 03/14/22 06:05: WBC 20.0 H, RBC 5.02, Hgb 15.4 H, Hct 46.1, MCV 91.8, MCH 30.7, MCHC 33.4, RDW Std Deviation 50.5 H, RDW Coeff of Yonathan 15.0 H, Plt Count 258, MPV 10.1, Immature Gran % (Auto) 0.600, Neut % (Auto) 89.0 H, Lymph % (Auto) 4.7 L, [place] % (Auto) 5.4, Eos % (Auto) 0.1, Baso % (Auto) 0.2, Absolute Neuts (auto) 17.8 H, Absolute Lymphs (auto) 0.94, Nucleated RBC % 0 03/14/22 06:05: Sodium 136, Potassium 4.0, Chloride 108 H, Carbon Dioxide 21.0, Anion Gap 7, BUN 20 H, Creatinine 1.31 H, Estim Creat Clear Calc 40.42, Est GFR (MDRD) Af Amer 54 L, Est GFR (MDRD) Non-Af 44 L, BUN/Creatinine Ratio 15.3, Glucose 117 H, Calcium 8.4 L Radiography Diagnostic Testing: Radiology Impression Abdomen/Pelvis CT 03/13/22 20:23 IMPRESSION: (NOT LISTED IN ORDER OF SIGNIFICANCE) Mild colitis of the descending colon. Other findings as above. Electronically Signed: Isaac Martinez MD at 21:07 EDT Reading Location ID and State: [facility] / [place] , Service support , Physical Exam Const alert, oriented x3 and no apparent distress HEENT head/scalp atraumatic Head and Scalp: normocephalic Eyes conjunctivae normal and no scleral icterus Neck supple General: trachea midline Resp normal respiratory effort, normal air movement and clear to auscultation bilaterally Effort and Inspection: able to speak in complete sentences and symmetric chest movement Cardio regular rate, regular rhythm, S1 normal heart sound and S2 normal heart sound GI Inspection: abdominal distention Auscultation: hypoactive bowel sounds Palpation: firm and tender epigastric, LLQ, RLQ, LUQ and RUQ Extremity normal to inspection, full ROM and no clubbing, cyanosis or edema Peripheral Pulses: Yes pulses 2+ throughout Skin no rashes or lesions noted, no wounds and skin turgor normal Neuro oriented x3, no focal motor deficits and no sensory deficits noted Sensorium / Orientation: awake and alert Speech: speech normal Psych affect normal Assessment & Plan Assessment/Plan (1) Constipation: QUALIFIERS: Constipation type: unspecified constipation type Qualified Code(s): K59.00 - Constipation, unspecified (2) Abdominal pain: QUALIFIERS: Abdominal location: generalized Qualified Code(s): R10.84 - Generalized abdominal pain PLAN: 1. Abdominal pain and constipation, possible colitis -Surgery consulted, case discussed with Dr. Grullon. -Per surgery recommendation CT with p.o. contrast ordered as patient has allergy to IV contrast as it is questionable whether patient has colitis or if this was an over read and patient actually has constipation -Normal saline 1000 mL x 1 then 100 mL/h -Continue ceftriaxone and Flagyl -Continue sucralfate, pantoprazole -As needed pain medication and antiemetics ordered -White blood cell count continues to be elevated however patient was on steroid course 3 days prior to admission 2. Chronic kidney disease stage IIIb -Creatinine improved to 1.31 -1 L normal saline bolus ordered then normal saline 100 mL/h -Patient's baseline creatinine approximately 1.25 -CMP daily 3. Hypertension -Continue furosemide, hydralazine, losartan, nifedipine, spironolactone -Vital signs per protocol, currently stable 4. GERD, chronic gastritis -Continue sucralfate, omeprazole 5. COPD -Stable, patient recently ended steroid course -Continue albuterol, budesonide, fluticasone, guaifenesin, loratadine, montelukast, tiotropium DVT prophylaxis-subcu Lovenox This patient was seen by JUAN J CallC under the supervision of Dr. Barron. 15 minutes spent in clinical coordination of patient's plan of care. Documented by User: Dr. Jessica Barron MD 03/14/22 12:33 Objective Data Lab / Micro Data Result Diagrams: 03/14/22 06:05 03/14/22 06:05 Charges/Coding Addendum Addendum: Patient seen by Keely ROMERO under my supervision Patient seen and examined. She still complains of abdominal pain, which hasnt improved. She admits to nausea but no vomiting. She says she hasnt had any bowel movement or passed gas. Review of systems is otherwise negative. O/E; Const alert, oriented x3 and no apparent distress General Appearance: cooperative HEENT normocephalic, head/scalp atraumatic, hearing grossly normal bilaterally and moist oral mucous membranes Eyes PERRL, EOMs intact bilaterally and conjunctivae normal Neck no lymphadenopathy, supple and no JVD Resp normal respiratory effort and clear to auscultation bilaterally Cardio regular rate, regular rhythm, S1 normal heart sound, S2 normal heart sound and no murmurs GI abdomen distended, moderate generalised tenderness, minimal guarding no rebound tenderness, minimal bowel sounds Extremity normal to inspection, full ROM and no clubbing, cyanosis or edema Skin no rashes or lesions noted Neuro oriented x3, CN's II-XII intact bilaterally and moves all extremities Sensorium / Orientation: awake and alert Psych affect normal Assessment and plan #Acute colitis * patient still having significant abdominal pain, with diminished bowel sounds * CT of the abdomen and pelvis without contrast showed mild colitis of the descending colon * On IV ceftriaxone and flagyl * get general surgery consult due to persistent pain and minimal bowel sounds as well as distended abdomen * continue hydration with IVF * #CKD stage 3B * stable> Cr is down to 1.31. Will monitor * #Hypertension * BP is stable. * oral meds on hold due to patient being NPO * IV hydralazine prn * #GERD on PPI and sucralfate #History of COPD * Not in exacerbation. Budesonide and montelukast as well as albuterol and tiotropium. * DVT prophylaxis: Lovenox Total time I spent on care of the patient today 22 minutes with NICK Call spending 15 minutes making a total of 37 minutes. Visit Charges Inpatient E&M: 95189 [facility] Hosp L3
--- NOTE | 2022-03-14 11:06 | CON.PCM.SX_ITS ---
Assessment & Plan Assessment/Plan (1) Abdominal pain: (2) Constipation: PLAN: Recommend CT abdomen pelvis with p.o. contrast as patient is allergic to IV contrast for better picture unsure if patient actually has colit is of the descending colon as it is filled with stool. Patient does appear to have some constipation especially transverse and descending colon and the p.o. contrast would help with this as well. Patient was agreeable with plan. Patient is currently on antibiotics for possible colitis, leukocytosis most likely due to recent steroid use Addendum: Repeat CT abdomen pelvis did show distal transverse and descending colitis. Tiffani Grullon M.D. Pager: [phone] [facility] [address] [place] [address], [facility], [address] [place] [address] Office: [phone] HPI Consult Data Date of Consult: 03/15/22 HPI Narrative HPI Narrative: NIGHAT TIMMONS, is a 57 F who presented to the ER yesterday due to abdominal pain which started at 5 AM yesterday. Patient dates she did have nausea and vomiting along with this and was unable to eat yesterday. Patient denies ever previous having similar pain. Patient states she had a bowel movement yesterday and does go daily denies any blood. Patient did have a co lonoscopy by myself in April 2021 as well as another one in September 2021 by . Friend-patient a couple small polyps both times. Patient states she has pain on her left side of her abdomen mainly points to supraumbilical area. Patient states that this area feels like it is bloated feels like she may be possibly constipated. Patient CT abdomen pelvis done in the ER which question mild descending colitis. Upon my read unsure if there is actually colitis or if this is an overread as there is stool throughout the transverse and descending colon. Patient white blood count of 21 down to 20 patient was recently on steroids due to pneumonia per Dr. Porter. [facility] Medical History (Updated 03/15/22 @ 08:[address] Tiffani Grullon MD) Abdominal pain Allergic rhinitis Aortic valve insufficiency Arthralgia of right hip Arthritis Asthma Back pain Bilateral flank pain Bilateral foot pain Bipolar 1 disorder Bipolar disorder Blackout Bladder disease Cancer Cardiology follow-up encounter Chest pain Chest pain Chest pain Chest pain CKD (chronic kidney disease) Conversion disorder Conversion disorder with abnormal movement Convulsion, non-epileptic COPD (chronic obstructive pulmonary disease) COPD, mild CPAP (continuous positive airway pressure) dependence Cyst Debility Depression Diarrhea Dietary restriction Difficulty chewing Dysuria Easy bruising Enlarged aorta Excessive bleeding Gastric reflux Gastritis GERD (gastroesophageal reflux disease) GERD (gastroesophageal reflux disease) Heart failure High cholesterol Hip dislocation, right History of abnormal cervical Pap smear History of atrial fibrillation History of CHF (congestive heart failure) History of echocardiogram History of edema History of hiatal hernia History of IBS History of stress test History of ulceration HLD (hyperlipidemia) HTN (hypertension) Hx of tilt table evaluation Hypertensive crisis without congestive heart failure Hypokalemia Hyponatremia Hyponatremia Hypothyroidism Injury of head and neck Intertriginous dermatitis associated with moisture Kidney disease Left arm swelling Leg cramps Marijuana use Migraine Migraines Morbid obesity Myositis Nausea & vomiting Nausea and vomiting Non-convulsive status epilepticus Non-rheumatic mitral regurgitation Nonrheumatic aortic (valve) insufficiency Open wound Oral candidiasis Orthostatic hypotension DAPHNE (obstructive sleep apnea) Osteoarthritis Osteoarthritis of right hip PAF (paroxysmal atrial fibrillation) Pain of left calf Peripheral artery disease Post-menopausal Psychosis Pulmonary embolism Right hip pain Sarcoidosis Schizo NEC, chrn/exacerb Schizophrenia Seizures Shortness of breath on exertion Smoker Stroke Stroke/cerebrovascular accident Syncope Thyroid disease TIA (transient ischemic attack) Tobacco abuse Venous insufficiency of both lower extremities Walker as ambulation aid Wears dentures Home Medications albuterol sulfate 90 mcg/actuation aerosol inhaler 2 puff INHALATION Q4H PRN #8.5 g 11/23/21 [Rx Last Taken 03/13/22] ondansetron 4 mg disintegrating tablet 4 mg PO Q8H PRN #14 tab 11/29/21 [Rx Last Taken 03/13/22 22:20] nitroglycerin 0.4 mg sublingual tablet 0.4 mg SUBLINGUAL PRN PRN #25 tab 12/05/21 [Rx Last Taken Unknown] omeprazole 40 mg PO DAILY 12/07/21 [History Last Taken 03/13/22] aspirin 81 mg tablet,delayed release 81 mg PO DAILY #90 tab 12/16/21 [Rx Last Taken 03/13/22] hydralazine 50 mg tablet 50 mg PO TID #270 tab 12/19/21 [Rx Last Taken 03/13/22 22:18] losartan 100 mg tablet 100 mg PO DAILY #90 tab 12/19/21 [Rx Last Taken 03/13/22 22:19] lidocaine 1 patch TOPICAL DAILY PRN 12/26/21 [History Last Taken 03/11/22] polyethylene glycol 3350 17 gram/dose oral powder 17 g PO BID PRN #238 g 12/26/21 [Rx Last Taken 03/13/22 22:20] fluticasone propionate 50 mcg/actuation nasal spray,suspension 1 spray NASAL BID #16 g 02/14/22 [Rx Last Taken 03/13/22] furosemide 20 mg tablet 20 mg PO BID #90 tab 02/14/22 [Rx Last Taken 03/13/22] loratadine 10 mg tablet 10 mg PO DAILY #90 tab 02/14/22 [Rx Last Taken 03/13/22] Desenex 1 applic TOPICAL BID 02/27/22 [History Last Taken 03/10/22] atorvastatin 40 mg PO QHS 02/27/22 [History Last Taken 03/13/22] azelastine 1 spray INTRANASAL BID 02/27/22 [History Last Taken 03/13/22] budesonide-formoterol [Symbicort] 2 puff INHALATION BID 02/27/22 [History Last Taken 03/13/22] cholecalciferol (vitamin D3) 50,000 unit PO FR 02/27/22 [History Last Taken 03/13/22] levothyroxine 50 mcg PO DAILY 02/27/22 [History Last Taken 03/13/22 22:18] melatonin 10 mg PO QHS 02/27/22 [History Last Taken 03/13/22] nifedipine 30 mg PO BID 02/27/22 [History Last Taken 03/13/22] spironolactone 25 mg PO QHS 02/27/22 [History Last Taken 03/13/22 22:21] sucralfate 1 g PO TID 02/27/22 [History Last Taken 03/13/22] prednisolone acetate 1 % eye drops,suspension 1 drp EACH EYE BID ml 03/09/22 [History Last Taken 03/13/22 22:20] guaifenesin 1,200 mg tablet, extended release 12 hr 600 mg PO BID #60 tab 03/10/22 [Rx Last Taken 03/13/22 22:18] montelukast [Singulair] 10 mg PO QHS 03/13/22 [History Last Taken 03/13/22] tiotropium bromide 1.25 mcg/actuation mist for inhalation 2 puff INHALATION DA DENICE #4 g 03/14/22 [Rx Last Taken Unknown] Allergy/AdvReac Type Severity Reaction Status Date / Time adhesive tape Allergy Rash Verified 03/13/22 20:19 atropine sulfate Allergy Hives Verified 03/13/22 20:19 [From ] codeine phosphate Allergy breathing Verified 03/13/22 20:19 [From Tylenol-Codeine #3] problems divalproex sodium Allergy Unknown Verified 03/13/22 20:19 [From Depakote] hydromorphone HCl Allergy facial Verified 03/13/22 20:19 [From Dilaudid] blisters,itching hyoscyamine sulfate Allergy Hives Verified 03/13/22 20:19 [From ] Iodinated Contrast Media Allergy breathing Verified 03/14/22 11:31 [Iodinated Contrast Media - problems IV Dye] and my bp went up latex Allergy Rash Verified 03/13/22 20:19 pantoprazole sodium Allergy Rash Verified 03/13/22 20:19 [From Protonix] phenobarbital [From ] Allergy Hives Verified 03/13/22 20:19 promethazine HCl Allergy Anaphylaxis Verified 03/13/22 20:19 [From Phenergan] ramipril Allergy Unknown Verified 03/13/22 20:19 scopolamine hydrobromide Allergy Hives Verified 03/13/22 20:19 [From ] tramadol Allergy Itching Verified 03/13/22 20:19 ziprasidone mesylate Allergy Unknown Verified 03/13/22 20:19 [From Geodon] levofloxacin [From Levaquin] AdvReac Itching Verified 03/13/22 20:24 metoclopramide [From Reglan] AdvReac Other Verified 03/13/22 20:23 Sulfa (Sulfonamide AdvReac Vomiting Verified 03/13/22 20:19 Antibiotics) ziprasidone HCl [From Geodon] AdvReac tremors Verified 03/13/22 20:19 VIDODIN TUSS Allergy Itching Uncoded 03/13/22 20:19 Amlodipine AdvReac Vomiting Uncoded 03/13/22 20:19 Family History Sister Myocardial infarction Colon cancer Mother Hypertension Arthritis Brain aneurysm Sister Colon cancer Surgical History bladder sling History of esophagogastroduodenoscopy (EGD) History of laparoscopic cholecystectomy History of uterine suspension procedure Hx of cholecystectomy Hx of colonoscopy left foot S/P carpal tunnel release Social History household members: none number of children: 4 current occupational status: unemployed history of recent travel: No Smoking Status: Current every day smoker tobacco type: cigarettes Tobacco: How many years used: 26 alcohol intake: never substance use type: does not use caffeine: Yes Type: coffee what type of physical activity do you participate in: none seatbelt use: never do you feel safe at home: Yes additional social history: single ROS Constitutional Constitutional: Reports anorexia; Denies chills ENT HEENT: Reports dysphagia Cardiovascular Cardiovascular: Denies chest pain Respiratory/Chest Respiratory/Chest: Reports shortness of breath with exertion Gastrointestinal Gastrointestinal: Reports abdominal pain, constipation, heartburn, nausea and vomiting; Denies diarrhea, hematemesis or melena Genitourinary Genitourinary: Denies burning urination Musculoskeletal Musculoskeletal: Denies joint pain Integumentary Integumentary: Denies rash Neurologic Neurologic: Denies abnormal gait, abnormal hearing, focal weakness, paresthesias or sensory deficit Endocrine Endocrinology: Denies palpitations Hematologic/Lymphatic Hematologic/Lymphatic: Reports easy bruising; Denies easy bleeding Physical Exam Const alert, oriented x3 and no apparent distress HEENT normocephalic and head/scalp atraumatic Resp normal respiratory effort Cardio regular rate GI soft to palpation; Negative for non-distended Palpation: tender other (Mostly mid abdomen supraumbilically, no peritoneal si gns); Negative for guarding Extremity no clubbing, cyanosis or edema Neuro CN's II-XII intact bilaterally Psych mental status grossly normal Lab / Micro Data Result Diagrams: 03/15/22 06:10 03/15/22 06:10 Labs: Laboratory Results - last 24 hr 03/13/22 20:25: WBC 21.8 H, RBC 5.29, Hgb 16.2 H, Hct 47.6 H, MCV 90.0, MCH 30.6, MCHC 34.0, RDW Std Deviation 47.8 H, RDW Coeff of Yonathan 14.6, Plt Count 298, MPV 10.1, Immature Gran % (Auto) 0.700, Neut % (Auto) 88.3 H, Lymph % (Auto) 7.0 L, Alfalfa % (Auto) 2.9, Eos % (Auto) 0.8, Baso % (Auto) 0.3, Absolute Neuts (auto) 19.2 H, Absolute Lymphs (auto) 1.52, Nucleated RBC % 0 03/13/22 20:25: Sodium 137, Potassium 3.7, Chloride 106, Carbon Dioxide 25.0, Anion Gap 6, BUN 14, Creatinine 1.52 H, Estim Creat Clear Calc 34.84, Est GFR (MDRD) Af Amer 45 L, Est GFR (MDRD) Non-Af 37 L, BUN/Creatinine Ratio 9.2 L, Glu cose 128 H, Calcium 8.8, Total Bilirubin 0.70, AST 17, ALT 42, Alkaline Phosp hatase 119 H, Total Protein 6.6, Albumin 3.6, Globulin 3.0, Albumin/Globulin Ratio 1.2 03/14/22 06:05: WBC 20.0 H, RBC 5.02, Hgb 15.4 H, Hct 46.1, MCV 91.8, MCH 30.7, MCHC 33.4, RDW Std Deviation 50.5 H, RDW Coeff of Yoanthan 15.0 H, Plt Count 258, MPV 10.1, Immature Gran % (Auto) 0.600, Neut % (Auto) 89.0 H, Lymph % (Auto) 4.7 L, Alfalfa % (Auto) 5.4, Eos % (Auto) 0.1, Baso % (Auto) 0.2, Absolute Neuts (auto) 17.8 H, Absolute Lymphs (auto) 0.94, Nucleated RBC % 0 03/14/22 06:05: Sodium 136, Potassium 4.0, Chloride 108 H, Carbon Dioxide 21.0, Anion Gap 7, BUN 20 H, Creatinine 1.31 H, Estim Creat Clear Calc 40.42, Est GFR (MDRD) Af Amer 54 L, Est GFR (MDRD) Non-Af 44 L, BUN/Creatinine Ratio 15.3, Glucose 117 H, Calcium 8.4 L Radiology Impression Abdomen/Pelvis CT 03/13/22 20:23 IMPRESSION: (NOT LISTED IN ORDER OF SIGNIFICANCE) Mild colitis of the descending colon. Other findings as above. Electronically Signed: Isaac Martinez MD at 21:07 EDT Reading Location ID and State: [facility] / [place] , Service support , Charges/Coding Visit Charges Inpatient E&M: 69985 Init Hosp L3
--- NOTE | 2022-03-14 11:07 | CT_ITS ---
STUDY: CT ABDOMEN AND PELVIS WITHOUT CONTRAST REASON FOR EXAM: Female, 57 years old. Abdominal pain and diarrhea. -- Please wait 2.5-3 hours so contrast is in colon RADIATION DOSAGE (If Supplied By Facility): CTDIvol = ( 23.55 ) mGy, DLP = ( 1253.20 ) mGycm TECHNIQUE: Transaxial images were obtained from the dome of the diaphragm to the symphysis pubis without oral contrast, and without intravenous contrast. Sagittal and coronal images were reconstructed. Individualized dose optimization techniques were used for this CT. COMPARISON: Comparison is made with prior study dated 03/13/2022. FINDINGS: Calcified right hilar lymph nodes. Increased markings at the lung bases slightly worse on the left side suggestive of atelectasis and/or early infiltrates. Calcified granuloma in the right lower lobe. The visualized portions of the heart are within normal limits. Normal liver. There are surgical clips in the gallbladder fossa consistent with a prior cholecystectomy. Normal spleen. Normal pancreas. Normal bilateral adrenal glands. Normal right kidney. Normal left kidney. Normal visualized stomach. Normal small intestine. There is diffuse circumferential wall thickening of the left hemicolon with increased markings in the surrounding fat in keeping with the colitis. There is also evidence of diffuse circumferential wall thickening and inflammatory changes involving the distal half of the transverse colon. The appendix is visualized and appears normal. There is diffuse atherosclerotic calcification of the abdominal aorta, without a demonstrated aneurysm. Normal inferior vena cava. Normal retroperitoneum. Normal urinary bladder. Normal abdominal wall. Normal osseous structures. CT/Abdomen/Pel W ORAL Cont Only IMPRESSION: Colitis of the left hemicolon as well as the distal portion of the transverse colon. Increased markings at the lung bases more pronounced on the left side suggestive of a bibasilar atelectasis and/or infiltrates. Electronically Signed: Patrick Keita MD at 15:30 EDT ,
[2022-03-14] MEDS: 0.9% Normal Saline 1,000 ML 999 ML IV (11:28)
[2022-03-14] MEDS: 0.9% Normal Saline 1,000 ML 100 ML IV (12:50)
[2022-03-14] MEDS: Ceftriaxone 1 GM/50 ML BAG IV (22:27)
[2022-03-15] VITALS (9 sets, daily range): BP systolic 137–173; BP diastolic 49–67; PULSE 61–83; RESP 15–19; TEMP 36.4–36.8; O2SAT 94–100
[2022-03-15] MEDS: 0.9% Saline Lock 10 ML Syringe IV (03:12)
[2022-03-15] MEDS: Morphine 2 MG/ML Syringe IV ×3 (03:12→20:44)
[2022-03-15] MEDS: 0.9% Normal Saline 1,000 ML 100 ML IV ×2 (04:24→14:42)
[2022-03-15] MEDS: metroNIDAZOLE 500 MG/100 ML BAG 100 MG IV ×3 (06:09→20:58)
[2022-03-15 06:18] LABS: Absolute Lymphocyte Count 1.43 X10^3/uL (0.83-4.51); Absolute Neutrophil Count 8.2 X10^3/uL (2.0-7.7); Basophil# 0.02 X10^3/uL; Basophil% 0.2 % (0-1); Eosinophil# 0.16 X10^3/uL; Eosinophils% 1.5 % (0-5); Hemoglobin 13.1 g/dL (12.0-15.0); Lymphocyte # 1.43 X10^3/ul (0.83-4.51); Lymphocyte % 13.6 % (19-41); Mean Corp Hgb Conc 33.6 g/dL (32-36); Mean Corpuscular Volume 92.4 fL (81-99); Mean Platelet Vol. 10.2 fl (6.2-12.0); Monocyte% 5.7 % (0-10); NRBC Flagged by Analyzer 0 % (0-5); Neutrophil # 8.24 X10^3/uL (2.7-7.7); Neutrophil % 78.5 % (47-70); Platelet Count 205 K/mm3 (150-450); RBC Distribution Width CV 14.8 % (11.6-14.6); RBC Distribution Width SD 50.5 fl (35.1-43.9); Red Blood Count 4.22 M/mm3 (4.2-5.4); White Blood Count 10.5 K/mm3 (4.4-11.0)
[2022-03-15 06:52] LABS: AST(SGOT) 23 U/L (15-37); Alanine Aminotransfer ALT/SGPT 39 U/L (13-56); Albumin, Serum 2.5 g/dL (3.2-5.0); Alkaline Phosphatase 85 U/L (45-117); Anion Gap 6 (5-15); BUN 16 mg/dL (7-18); BUN/Creat Ratio 18.6 RATIO (10-20); Calcium,Total 7.7 mg/dL (8.5-10.1); Chloride 112 mmol/L (98-107); Creatinine, Serum 0.86 mg/dL (0.55-1.02); EST Glomerular Filtration Rate 72 mL/min (>60); Est Glom Filt Rate - Afr Amer 87 mL/min (>60); Estimated Creatinine Clearance 61.57 ml/min; Globulin 2.6 g/dL (2.2-4.2); Glucose 78 mg/dL (74-106); Potassium 3.9 mmol/L (3.5-5.1); Protein, Total 5.1 g/dL (6.4-8.2); Sodium Level 137 mmol/L (136-145)
[2022-03-15] MEDS: Ipratropium/Albuterol Sulfate 3 ML AMPUL.NEB INHALATION ×3 (07:36→19:58)
[2022-03-15] MEDS: Budesonide Respules 0.5 MG/2 ML AMPUL.NEB. INHALATION ×2 (07:36→19:58)
--- NOTE | 2022-03-15 08:30 | PN.SURG_ITS ---
Subjective Subjective Patient states abdominal pain is about the same initially was a little better after a bowel movement yesterday. Objective Data Objective Data Vital Signs: Vital Signs Temp Pulse Resp BP Pulse Ox 97.5 F L 66 16 137/67 H 94 03/15/22 03:00 03/15/22 03:00 03/15/22 03:00 03/15/22 03:00 03/15/22 03:00 Oxygen Flow Rate (L/min) 2 Oxygen Delivery Method Room Air Weight: 266 lb 5.094 oz Body Mass Index (BMI) 45.7 Intake & Output: Intake and Output for Last 24 Hours 03/13/22 03/14/22 03/15/22 23:59 23:59 23:59 Intake Total 1150 / 1150 1508.33 / 1508.33 841.67 / 841.67 Output Total 425 / 425 Balance 1150 / 950 1083.33 / 1083.33 841.67 / 841.67 Lab / Micro Data Result Diagrams: 03/15/22 06:10 03/15/22 06:10 Labs: Laboratory Results - last 24 hr 03/15/22 06:10: WBC 10.5, RBC 4.22, Hgb 13.1, Hct 39.0, MCV 92.4, MCH 31.0, MCHC 33.6, RDW Std Deviation 50.5 H, RDW Coeff of Yonathan 14.8 H, Plt Count 205, MPV 10.2, Immature Gran % (Auto) 0.500, Neut % (Auto) 78.5 H, Lymph % (Auto) 13.6 L, Rawlins % (Auto) 5.7, Eos % (Auto) 1.5, Baso % (Auto) 0.2, Absolute Neuts (auto) 8.2 H, Absolute Lymphs (auto) 1.43, Nucleated RBC % 0 03/15/22 06:10: Sodium 137, Potassium 3.9, Chloride 112 H, Carbon Dioxide 19.0 L , Anion Gap 6, BUN 16, Creatinine 0.86, Estim Creat Clear Calc 61.57, Est GFR (MDRD) Af Amer 87, Est GFR (MDRD) Non-Af 72, BUN/Creatinine Ratio 18.6, Glucose 78, Calcium 7.7 L, Total Bilirubin 0.40, AST 23, ALT 39, Alkaline Phosphatase 85, Total Protein 5.1 L, Albumin 2.5 L, Globulin 2.6, Albumin/Globulin Ratio 1.0 Micro: Microbiology 03/14/22 15:30 Stool C. difficile DNA Amplification - Final Radiography Diagnostic Testing: Radiology Impression Abdomen CT 03/14/22 11:07 IMPRESSION: Colitis of the left hemicolon as well as the distal portion of the transverse colon. Increased markings at the lung bases more pronounced on the left side suggestive of a bibasilar atelectasis and/or infiltrates. Electronically Signed: Patrick Keita MD at 15:30 EDT , Physical Exam Const alert, oriented x3 and no apparent distress HEENT normocephalic and head/scalp atraumatic Resp normal respiratory effort Cardio regular rate GI soft to palpation; Negative for non-distended Palpation: tender other (Mostly mid abdomen supraumbilically, no peritoneal signs); Negative for guarding Neuro CN's II-XII intact bilaterally Psych mental status grossly normal Assessment & Plan Assessment/Plan (1) Colitis: (2) Abdominal pain: QUALIFIERS: Abdominal location: generalized Qualified Code(s): R10.84 - Generalized abdominal pain (3) Constipation: QUALIFIERS: Constipation type: unspecified constipation type Qualified Code(s): K59.00 - Constipation, unspecified PLAN: CT abdomen pelvis from yesterday did show colitis of the distal transverse and descending colon. Patient C. difficile was negative, enteric panel is pending. Okay for sips and chips otherwise keep n.p.o. plan continue conservative management Continue IV antibiotics. Tiffani Grullon M.D. Pager: [phone] [facility] [address] [place] [address], [facility], [address] [place] [address] Office: [phone] Charges/Coding Visit Charges Inpatient E&M: 68391 Subs Hosp L2
[2022-03-15] MEDS: Fluticasone 0.05% 1 SPRAY NASAL.SRY NASAL ×2 (09:10→20:51)
[2022-03-15] MEDS: Azelastine HCl NASAL.SRY 1 SPRAY NASAL ×2 (09:10→20:50)
[2022-03-15] MEDS: prednisoLONE eye drops (5 mL) 1 DROP OPTH.BTL 1 DRP EACH EYE ×2 (09:10→20:50)
[2022-03-15] MEDS: Enoxaparin 40 MG/0.4 ML Syringe SC (09:12)
--- NOTE | 2022-03-15 10:32 | PN.HOSP_ITS ---
Documented by User: NICK Call 03/15/22 10:37 Subjective Subjective Patient seen and examined. Patient states that she continues to have headache and pain however this has improved overnight. White blood cell count improved. Objective Data Objective Data Vital Signs: Vital Signs Temp Pulse Resp BP Pulse Ox 98.0 F 61 17 138/51 H 97 03/15/22 09:06 03/15/22 09:06 03/15/22 09:06 03/15/22 09:06 03/15/22 09:06 Oxygen Flow Rate (L/min) 2 Oxygen Delivery Method Room Air Weight: 266 lb 5.094 oz Body Mass Index (BMI) 45.7 Intake & Output: Intake and Output for Last 24 Hours 03/13/22 03/14/22 03/15/22 23:59 23:59 23:59 Intake Total 1150 / 1150 1508.33 / 1508.33 941.67 / 941.67 Output Total 425 / 425 Balance 1150 / 950 1083.33 / 1083.33 941.67 / 941.67 Lab / Micro Data Result Diagrams: 03/15/22 06:10 03/15/22 06:10 Labs: Laboratory Results - last 24 hr 03/15/22 06:10: WBC 10.5, RBC 4.22, Hgb 13.1, Hct 39.0, MCV 92.4, MCH 31.0, MCHC 33.6, RDW Std Deviation 50.5 H, RDW Coeff of Yonathan 14.8 H, Plt Count 205, MPV 10.2, Immature Gran % (Auto) 0.500, Neut % (Auto) 78.5 H, Lymph % (Auto) 13.6 L, Dougherty % (Auto) 5.7, Eos % (Auto) 1.5, Baso % (Auto) 0.2, Absolute Neuts (auto) 8.2 H, Absolute Lymphs (auto) 1.43, Nucleated RBC % 0 03/15/22 06:10: Sodium 137, Potassium 3.9, Chloride 112 H, Carbon Dioxide 19.0 L , Anion Gap 6, BUN 16, Creatinine 0.86, Estim Creat Clear Calc 61.57, Est GFR (MDRD) Af Amer 87, Est GFR (MDRD) Non-Af 72, BUN/Creatinine Ratio 18.6, Glucose 78, Calcium 7.7 L, Total Bilirubin 0.40, AST 23, ALT 39, Alkaline Phosphatase 85, Total Protein 5.1 L, Albumin 2.5 L, Globulin 2.6, Albumin/Globulin Ratio 1.0 Micro: Microbiology 03/14/22 15:30 Stool C. difficile DNA Amplification - Final Radiography Diagnostic Testing: Radiology Impression Abdomen CT 03/14/22 11:07 IMPRESSION: Colitis of the left hemicolon as well as the distal portion of the transverse colon. Increased markings at the lung bases more pronounced on the left side suggestive of a bibasilar atelectasis and/or infiltrates. Electronically Signed: Patrick Keita MD at 15:30 EDT , Physical Exam Const alert, oriented x3 and no apparent distress HEENT head/scalp atraumatic Eyes conjunctivae normal and no scleral icterus Neck supple General: trachea midline Resp normal respiratory effort, normal air movement and clear to auscultation bilaterally Effort and Inspection: able to speak in complete sentences and symmetric chest movement Cardio regular rate, regular rhythm, S1 normal heart sound and S2 normal heart sound GI Inspection: abdominal distention Auscultation: hypoactive bowel sounds Palpation: firm and tender epigastric, LLQ, RLQ, LUQ and RUQ Extremity normal to inspection, full ROM and no clubbing, cyanosis or edema Skin no rashes or lesions noted, no wounds and skin turgor normal Neuro oriented x3, no focal motor deficits and no sensory deficits noted Sensorium / Orientation: awake and alert Speech: speech normal Psych affect normal Assessment & Plan Assessment/Plan (1) Constipation: QUALIFIERS: Constipation type: unspecified constipation type Qu alified Code(s): K59.00 - Constipation, unspecified (2) Abdominal pain: QUALIFIERS: Abdominal location: generalized Qualified Code(s): R10.84 - Generalized abdominal pain PLAN: 1. Abdominal pain and constipation, possible colitis -Dr. Grullon following -CT abdomen pelvis with oral contrast shows colitis of the distal transverse and descending colon. -Enteric pathogen panel pending, C. difficile negative -Normal saline 100 mL/h -Continue ceftriaxone and Flagyl -Continue sucralfate, pantoprazole -As needed pain medication and antiemetics ordered -White blood cell count WNL today 2. Chronic kidney disease stage IIIb -Creatinine improved to 0.86 -NS 100 ml/hr -Patient's baseline creatinine approximately 1.25 -CMP daily 3. Hypertension -Continue furosemide, hydralazine, losartan, nifedipine, spironolactone -Vital signs per protocol, currently stable 4. GERD, chronic gastritis -Continue sucralfate, omeprazole 5. COPD -Stable, patient recently ended steroid course -Continue albuterol, budesonide, fluticasone, guaifenesin, loratadine, montelukast, tiotropium DVT prophylaxis-subcu Lovenox This patient was seen by NICK Call under the supervision of Dr. Barron. 12 minutes spent in clinical coordination of patient's plan of care. Documented by User: Dr. Jessica Barron MD 03/15/22 17:12 Objective Data Lab / Micro Data Result Diagrams: 03/15/22 06:10 03/15/22 06:10 Charges/Coding Addendum Addendum: Patient seen by Keely ROMERO under my supervision Patient seen and examined. She is still having the abdominal pain but is getting better. She denies any nausea, vomiting, fever or chills and review of systems otherwise negative. She has remained hemodynamically stable. O/E: Const alert, oriented x3 and no apparent distress General Appearance: cooperative HEENT normocephalic, head/scalp atraumatic, hearing grossly normal bilaterally and moist oral mucous membranes Eyes PERRL, EOMs intact bilaterally and conjunctivae normal Neck no lymphadenopathy, supple and no JVD Resp normal respiratory effort and clear to auscultation bilaterally Cardio regular rate, regular rhythm, S1 normal heart sound, S2 normal heart sound and no murmurs GI normal to inspection, moderate epigastric pain, no guarding or rebound tenderness, nondistended, normoactive bowel sounds and soft to palpation Extremity normal to inspection, full ROM and no clubbing, cyanosis or edema Skin no rashes or lesions noted Neuro oriented x3, CN's II-XII intact bilaterally and moves all extremities Sensorium / Orientation: awake and alert Psych affect normal Assessment and plan #Acute colitis * CT of the abdomen and pelvis with contrast still showed colitis * pain is improving * on IV ceftriaxone and flagyl * general surgery on board * patient started on ice chips today. * #CKD stage 3B: stable #hypertension: stable. resume oral meds as she is now on ice chips #GERD: on PPI adn sucralfate #History of COPD: not in exacerbation. On budesonide and montelukast as well as albuterol and tiotropium DVT prophylaxis: Lovenox Total time I spent on care of the patient today: 20 minutes with Keely Solis spending 12 mins, making a total of 32 mins. Visit Charges Inpatient E&M: 29530 Subs Hosp L2
[2022-03-15] MEDS: proCHLORPERazine 10 MG/2 ML Vial 5 MG IV (14:34)
[2022-03-15] MEDS: hydrALAZINE 20 MG/ML Vial 5 MG IV (14:35)
[2022-03-15] MEDS: Ceftriaxone 1 GM/50 ML BAG IV (22:09)
[2022-03-16] VITALS (7 sets, daily range): BP systolic 137–156; BP diastolic 38–105; PULSE 62–83; RESP 18–20; TEMP 36.1–36.7; O2SAT 97–100
[2022-03-16] MEDS: Morphine 2 MG/ML Syringe IV ×4 (02:56→20:53)
[2022-03-16] MEDS: 0.9% Normal Saline 1,000 ML 100 ML IV ×2 (02:58→17:38)
[2022-03-16 05:19] LABS: Absolute Lymphocyte Count 1.13 X10^3/uL (0.83-4.51); Absolute Neutrophil Count 5.5 X10^3/uL (2.0-7.7); Basophil# 0.01 X10^3/uL; Basophil% 0.1 % (0-1); Eosinophil# 0.23 X10^3/uL; Eosinophils% 3.1 % (0-5); Hemoglobin 12.4 g/dL (12.0-15.0); Lymphocyte # 1.13 X10^3/ul (0.83-4.51); Lymphocyte % 15.2 % (19-41); Mean Corp Hgb Conc 32.6 g/dL (32-36); Mean Corpuscular Hgb 30.2 pg (27.0-32.0); Mean Corpuscular Volume 92.5 fL (81-99); Mean Platelet Vol. 10.4 fl (6.2-12.0); Monocyte# 0.53 X10^3/uL; Monocyte% 7.1 % (0-10); NRBC Flagged by Analyzer 0 % (0-5); Neutrophil # 5.49 X10^3/uL (2.7-7.7); Neutrophil % 74.1 % (47-70); Platelet Count 205 K/mm3 (150-450); RBC Distribution Width CV 14.3 % (11.6-14.6); RBC Distribution Width SD 48.5 fl (35.1-43.9); Red Blood Count 4.11 M/mm3 (4.2-5.4); White Blood Count 7.4 K/mm3 (4.4-11.0)
[2022-03-16 05:48] LABS: AST(SGOT) 18 U/L (15-37); Alanine Aminotransfer ALT/SGPT 34 U/L (13-56); Albumin, Serum 2.6 g/dL (3.2-5.0); Alkaline Phosphatase 86 U/L (45-117); Anion Gap 8 (5-15); BUN 12 mg/dL (7-18); BUN/Creat Ratio 14.6 RATIO (10-20); Calcium,Total 8.2 mg/dL (8.5-10.1); Chloride 112 mmol/L (98-107); Creatinine, Serum 0.82 mg/dL (0.55-1.02); EST Glomerular Filtration Rate 76 mL/min (>60); Est Glom Filt Rate - Afr Amer 92 mL/min (>60); Estimated Creatinine Clearance 64.58 ml/min; Globulin 2.7 g/dL (2.2-4.2); Glucose 61 mg/dL (74-106); Potassium 3.7 mmol/L (3.5-5.1); Protein, Total 5.3 g/dL (6.4-8.2); Sodium Level 142 mmol/L (136-145)
[2022-03-16] MEDS: metroNIDAZOLE 500 MG/100 ML BAG 100 MG IV ×3 (06:19→20:57)
[2022-03-16] MEDS: Budesonide Respules 0.5 MG/2 ML AMPUL.NEB. INHALATION ×2 (07:29→19:08)
[2022-03-16] MEDS: Ipratropium/Albuterol Sulfate 3 ML AMPUL.NEB INHALATION ×3 (07:29→19:08)
--- NOTE | 2022-03-16 08:44 | PCM.PN.SRG ---
Subjective Subjective Patient is a 57 y/o F I am following in conjunction with Dr. Grullon for left sided colitis. Patient continues to note left sided abdominal discomfort. She notes flatus overnight. She denies bowel movements. She denies nausea, vomiting, fever, chills. Objective Data Objective Data Vital Signs: Vital Signs Temp Pulse Resp BP Pulse Ox 97.5 F L 65 18 156/38 H 100 03/16/22 08:40 03/16/22 08:40 03/16/22 08:40 03/16/22 08:40 03/16/22 08:40 Oxygen Flow Rate (L/min) 2 Oxygen Delivery Method Room Air Weight: 266 lb 5.094 oz Body Mass Index (BMI) 45.7 Intake & Output: Intake and Output for Last 24 Hours 03/14/22 03/15/22 03/16/22 23:59 23:59 23:59 Intake Total 1508.33 / 1508.33 2198.34 / 2198.34 986.67 / 986.67 Output Total 425 / 425 Balance 1083.33 / 1083.33 2198.34 / 2198.34 986.67 / 986.67 Lab / Micro Data Result Diagrams: 03/16/22 04:32 03/16/22 04:32 Labs: Laboratory Results - last 24 hr 03/16/22 04:32: WBC 7.4, RBC 4.11 L, Hgb 12.4, Hct 38.0, MCV 92.5, MCH 30.2, MCHC 32.6, RDW Std Deviation 48.5 H, RDW Coeff of Yonathan 14.3, Plt Count 205, MPV 10.4, Immature Gran % (Auto) 0.400, Neut % (Auto) 74.1 H, Lymph % (Auto) 15.2 L, [place] % (Auto) 7.1, Eos % (Auto) 3.1, Baso % (Auto) 0.1, Absolute Neuts (auto) 5.5, Absolute Lymphs (auto) 1.13, Nucleated RBC % 0 03/16/22 04:32: Sodium 142, Potassium 3.7, Chloride 112 H, Carbon Dioxide 22.0, Anion Gap 8, BUN 12, Creatinine 0.82, Estim Creat Clear Calc 64.58, Est GFR (MDRD) Af Amer 92, Est GFR (MDRD) Non-Af 76, BUN/Creatinine Ratio 14.6, Glucose 61 L, Calcium 8.2 L, Total Bilirubin 0.40, AST 18, ALT 34, Alkaline Phosphatase 86, Total Protein 5.3 L, Albumin 2.6 L, Globulin 2.7, Albumin/Globulin Ratio 1.0 Micro: Microbiology 03/14/22 15:30 Stool Enteric Bacteriology - Final 03/14/22 15:30 Stool C. difficile DNA Amplification - Final Physical Exam GI GI Narrative: Abdominal pain- left sided tenderness with palpation. Hypoactive bowel sounds present. Assessment & Plan Assessment/Plan (1) Colitis: PLAN: I have discussed this patient with Dr. Grullon. Continue with current sips and chips, antibiotics and IV hydration. No surgical intervention at this time. Patient has had the opportunity to ask and have questions answered. We will continue to monitor this patient. Charges/Coding Visit Charges Inpatient E&M: 92897 Subs Hosp L1
[2022-03-16] MEDS: Fluticasone 0.05% 1 SPRAY NASAL.SRY NASAL ×2 (10:50→21:03)
[2022-03-16] MEDS: Enoxaparin 40 MG/0.4 ML Syringe SC (10:50)
[2022-03-16] MEDS: Azelastine HCl NASAL.SRY 1 SPRAY NASAL ×2 (10:50→21:01)
[2022-03-16] MEDS: prednisoLONE eye drops (5 mL) 1 DROP OPTH.BTL 1 DRP EACH EYE ×2 (10:51→21:04)
[2022-03-16] MEDS: Sucralfate 1 GM Tablet PO (11:31)
--- NOTE | 2022-03-16 12:16 | PN.HOSP_ITS ---
Subjective Subjective Patient seen and examined. She had no active complaints and abdominal pain was improving and she felt much better. She was able to tolerate ice chips. She denies any fever or chills, nausea vomiting or diarrhea. Review of systems otherwise negative. Objective Data Objective Data Vital Signs: Vital Signs Temp Pulse Resp BP Pulse Ox 97.5 F L 65 18 156/38 H 100 03/16/22 08:40 03/16/22 08:40 03/16/22 08:40 03/16/22 08:40 03/16/22 08:40 Oxygen Flow Rate (L/min) 2 Oxygen Delivery Method Room Air Weight: 266 lb 5.094 oz Body Mass Index (BMI) 45.7 Intake & Output: Intake and Output for Last 24 Hours 03/14/22 03/15/22 03/16/22 23:59 23:59 23:59 Intake Total 1508.33 / 1508.33 2198.34 / 2198.34 1086.67 / 1086.67 Output Total 425 / 425 Balance 1083.33 / 1083.33 2198.34 / 2198.34 1086.67 / 1086.67 Lab / Micro Data Result Diagrams: 03/16/22 04:32 03/16/22 04:32 Labs: Laboratory Results - last 24 hr 03/16/22 04:32: WBC 7.4, RBC 4.11 L, Hgb 12.4, Hct 38.0, MCV 92.5, MCH 30.2, MCHC 32.6, RDW Std Deviation 48.5 H, RDW Coeff of Yonathan 14.3, Plt Count 205, MPV 10.4, Immature Gran % (Auto) 0.400, Neut % (Auto) 74.1 H, Lymph % (Auto) 15.2 L, [place] % (Auto) 7.1, Eos % (Auto) 3.1, Baso % (Auto) 0.1, Absolute Neuts (auto) 5.5, Absolute Lymphs (auto) 1.13, Nucleated RBC % 0 03/16/22 04:32: Sodium 142, Potassium 3.7, Chloride 112 H, Carbon Dioxide 22.0, Anion Gap 8, BUN 12, Creatinine 0.82, Estim Creat Clear Calc 64.58, Est GFR (MDRD) Af Amer 92, Est GFR (MDRD) Non-Af 76, BUN/Creatinine Ratio 14.6, Glucose 61 L, Calcium 8.2 L, Total Bilirubin 0.40, AST 18, ALT 34, Alkaline Phosphatase 86, Total Protein 5.3 L, Albumin 2.6 L, Globulin 2.7, Albumin/Globulin Ratio 1.0 Micro: Microbiology 03/14/22 15:30 Stool Enteric Bacteriology - Final 03/14/22 15:30 Stool C. difficile DNA Amplification - Final Physical Exam Const alert, oriented x3 and no apparent distress Exam Limitations: no limitations Nutritional Appearance: morbidly obese HEENT head/scalp atraumatic and moist oral mucous membranes Head and Scalp: normocephalic Eyes PERRL, EOMs intact bilaterally and conjunctivae normal Neck no lymphadenopathy and supple Resp normal respiratory effort, no retractions, no use of accessory muscles and clear to auscultation bilaterally Cardio regular rate, regular rhythm, S1 normal heart sound, S2 normal heart sound and no murmurs GI soft to palpation and non-tender GI Narrative: abdomen soft, obese, mildly tender, no organomegaly. no rebound tenderness. Extremity normal to inspection, full ROM and no clubbing, cyanosis or edema Peripheral Pulses: Yes pulses 2+ throughout Skin no rashes or lesions noted Neuro oriented x3 and moves all extremities Sensorium / Orientation: awake and alert Psych affect normal Assessment & Plan Assessment/Plan (1) Colitis: PLAN: #Acute left sided colitis * pain is much better lacho * continue gentle hydration with IVF * on IV ceftriaxone and flagyl * per general surgery, to continue with current sips and chips. * diet to be advanced as per general surgery * imaging showed colitis of the distal transverse and descending colon * wbc has normalised * #CKD stage IIIb: stable #Hypertension * on furosemide, hydralazine, losartan, nifedipine and spironolactone * #GERD: on sucralfate and omperazole * #COPD: not in exacerbation. On breathing treatment with bronchodilators DVT prophylaxis: lovenox Charges/Coding Visit Charges Inpatient E&M: 19201 Subs Hosp L2
[2022-03-16] MEDS: NYSTATIN 500,000 UNIT/5 ML UDC 500000 UNIT PO ×2 (17:37→21:04)
[2022-03-16] MEDS: Ceftriaxone 1 GM/50 ML BAG IV (22:56)
[2022-03-17] VITALS (9 sets, daily range): BP systolic 132–178; BP diastolic 54–79; PULSE 64–81; RESP 16–20; TEMP 36.4–36.7; O2SAT 95–100
[2022-03-17] MEDS: 0.9% Normal Saline 1,000 ML 100 ML IV ×2 (03:18→18:18)
[2022-03-17] MEDS: metroNIDAZOLE 500 MG/100 ML BAG 100 MG IV ×3 (06:00→22:36)
[2022-03-17] MEDS: Budesonide Respules 0.5 MG/2 ML AMPUL.NEB. INHALATION ×2 (07:21→19:02)
[2022-03-17] MEDS: Ipratropium/Albuterol Sulfate 3 ML AMPUL.NEB INHALATION ×3 (07:21→19:02)
[2022-03-17 08:10] LABS: Absolute Lymphocyte Count 0.96 X10^3/uL (0.83-4.51); Absolute Neutrophil Count 7.8 X10^3/uL (2.0-7.7); Basophil# 0.02 X10^3/uL; Basophil% 0.2 % (0-1); Eosinophil# 0.22 X10^3/uL; Eosinophils% 2.3 % (0-5); Hematocrit 40.3 % (37-47); Hemoglobin 13.6 g/dL (12.0-15.0); Lymphocyte # 0.96 X10^3/ul (0.83-4.51); Lymphocyte % 10.1 % (19-41); Mean Corp Hgb Conc 33.7 g/dL (32-36); Mean Corpuscular Hgb 30.4 pg (27.0-32.0); Mean Corpuscular Volume 90.2 fL (81-99); Mean Platelet Vol. 10.4 fl (6.2-12.0); Monocyte# 0.54 X10^3/uL; Monocyte% 5.7 % (0-10); NRBC Flagged by Analyzer 0 % (0-5); Neutrophil # 7.75 X10^3/uL (2.7-7.7); Neutrophil % 81.2 % (47-70); Platelet Count 181 K/mm3 (150-450); RBC Distribution Width SD 46.4 fl (35.1-43.9); Red Blood Count 4.47 M/mm3 (4.2-5.4); White Blood Count 9.5 K/mm3 (4.4-11.0)
[2022-03-17 08:30] LABS: Anion Gap 8 (5-15); BUN 9 mg/dL (7-18); BUN/Creat Ratio 10.8 RATIO (10-20); Calcium,Total 8.4 mg/dL (8.5-10.1); Chloride 113 mmol/L (98-107); Creatinine, Serum 0.83 mg/dL (0.55-1.02); EST Glomerular Filtration Rate 75 mL/min (>60); Est Glom Filt Rate - Afr Amer 91 mL/min (>60); Glucose 66 mg/dL (74-106); Potassium 4.1 mmol/L (3.5-5.1); Sodium Level 140 mmol/L (136-145)
--- NOTE | 2022-03-17 10:13 | PN.HOSP_ITS ---
Subjective Subjective Patient seen and examined. She feels much better today, and has no active complaints. Review of systems is otherwise negative. Objective Data Objective Data Vital Signs: Vital Signs Temp Pulse Resp BP Pulse Ox 97.9 F 76 18 146/58 H 97 03/17/22 03:27 03/17/22 07:21 03/17/22 07:21 03/17/22 03:27 03/17/22 07:21 Oxygen Flow Rate (L/min) 2 Oxygen Delivery Method Room Air Weight: 266 lb 5.094 oz Body Mass Index (BMI) 45.7 Intake & Output: Intake and Output for Last 24 Hours 03/15/22 03/16/22 03/17/22 23:59 23:59 23:59 Intake Total 2198.34 / 2198.34 2450.00 / 2450.00 1336.67 / 1336.67 Balance 2198.34 / 2198.34 2450.00 / 2450.00 1336.67 / 1336.67 Lab / Micro Data Result Diagrams: 03/17/22 07:54 03/17/22 07:54 Labs: Laboratory Results - last 24 hr 03/17/22 07:54: WBC 9.5, RBC 4.47, Hgb 13.6, Hct 40.3, MCV 90.2, MCH 30.4, MCHC 33.7, RDW Std Deviation 46.4 H, RDW Coeff of Yonathan 14.0, Plt Count 181, MPV 10.4, Immature Gran % (Auto) 0.500, Neut % (Auto) 81.2 H, Lymph % (Auto) 10.1 L, [place] % (Auto) 5.7, Eos % (Auto) 2.3, Baso % (Auto) 0.2, Absolute Neuts (auto) 7.8 H, Absolute Lymphs (auto) 0.96, Nucleated RBC % 0 03/17/22 07:54: Sodium 140, Potassium 4.1, Chloride 113 H, Carbon Dioxide 19.0 L , Anion Gap 8, BUN 9, Creatinine 0.83, Estim Creat Clear Calc 63.80, Est GFR (MDRD) Af Amer 91, Est GFR (MDRD) Non-Af 75, BUN/Creatinine Ratio 10.8, Glucose 66 L, Calcium 8.4 L Micro: Microbiology 03/14/22 15:30 Stool Enteric Bacteriology - Final 03/14/22 15:30 Stool C. difficile DNA Amplification - Final Physical Exam Const alert, oriented x3 and no apparent distress Exam Limitations: no limitations Nutritional Appearance: morbidly obese HEENT head/scalp atraumatic and moist oral mucous membranes Head and Scalp: normocephalic Eyes PERRL, EOMs intact bilaterally, conjunctivae normal and no scleral icterus Neck no lymphadenopathy and supple General: trachea midline Resp normal respiratory effort, normal air movement, no retractions, no use of access ory muscles and clear to auscultation bilaterally Effort and Inspection: able to speak in complete sentences and symmetric chest movement Cardio regular rate, regular rhythm, S1 normal heart sound, S2 normal heart sound and no murmurs GI normal to inspection, nondistended, normoactive bowel sounds, soft to palpation and non-tender Inspection: abdominal distention Palpation: firm Extremity normal to inspection, full ROM and no clubbing, cyanosis or edema Peripheral Pulses: Yes pulses 2+ throughout Skin no rashes or lesions noted, no wounds and skin turgor normal Neuro oriented x3, moves all extremities, no focal motor deficits and no sensory deficits noted Sensorium / Orientation: awake and alert Speech: speech normal Psych affect normal Assessment & Plan Assessment/Plan (1) Colitis: PLAN: #Acute left sided colitis * pain has resolved. * on IV ceftriaxone and metronidazole * will advance diet to liquid diet today, advance as tolerated * imaging showed colitis of the distal transverse and descending colon * * #CKD stage IIIb: stable #Hypertension * on furosemide, hydralazine, losartan, nifedipine and spironolactone * #GERD: on sucralfate and omperazole * #COPD: not in exacerbation. On breathing treatment with bronchodilators DVT prophylaxis: lovenox Disposition: anticipate discharge by tomorrow. Charges/Coding Visit Charges Inpatient E&M: 96119 Subs Hosp L2
[2022-03-17] MEDS: Fluticasone 0.05% 1 SPRAY NASAL.SRY NASAL ×2 (10:36→22:37)
[2022-03-17] MEDS: Enoxaparin 40 MG/0.4 ML Syringe SC (10:37)
[2022-03-17] MEDS: NYSTATIN 500,000 UNIT/5 ML UDC 500000 UNIT PO ×4 (10:37→22:38)
[2022-03-17] MEDS: prednisoLONE eye drops (5 mL) 1 DROP OPTH.BTL 1 DRP EACH EYE ×2 (10:37→22:37)
[2022-03-17] MEDS: Azelastine HCl NASAL.SRY 1 SPRAY NASAL ×2 (10:37→22:35)
[2022-03-17] MEDS: hydrALAZINE 20 MG/ML Vial 5 MG IV (10:40)
--- NOTE | 2022-03-17 13:00 | PCM.PN.SRG ---
Subjective Subjective Patient states pain is much improved. Denies pain with palpation. Patient is scheduled for speech evaluation at 130 today. Objective Data Objective Data Vital Signs: Vital Signs Temp Pulse Resp BP Pulse Ox 98.1 F 65 18 159/72 H 100 03/17/22 12:44 03/17/22 12:44 03/17/22 12:44 03/17/22 12:44 03/17/22 12:44 Oxygen Flow Rate (L/min) 2 Oxygen Delivery Method Room Air Weight: 266 lb 5.094 oz Body Mass Index (BMI) 45.7 Intake & Output: Intake and Output for Last 24 Hours 03/15/22 03/16/22 03/17/22 23:59 23:59 23:59 Intake Total 2198.34 / 2198.34 2450.00 / 2450.00 1436.67 / 1436.67 Balance 2198.34 / 2198.34 2450.00 / 2450.00 1436.67 / 1436.67 Lab / Micro Data Result Diagrams: 03/17/22 07:54 03/17/22 07:54 Labs: Laboratory Results - last 24 hr 03/17/22 07:54: WBC 9.5, RBC 4.47, Hgb 13.6, Hct 40.3, MCV 90.2, MCH 30.4, MCHC 33.7, RDW Std Deviation 46.4 H, RDW Coeff of Yonathan 14.0, Plt Count 181, MPV 10.4, Immature Gran % (Auto) 0.500, Neut % (Auto) 81.2 H, Lymph % (Auto) 10.1 L, [place] % (Auto) 5.7, Eos % (Auto) 2.3, Baso % (Auto) 0.2, Absolute Neuts (auto) 7.8 H, Absolute Lymphs (auto) 0.96, Nucleated RBC % 0 03/17/22 07:54: Sodium 140, Potassium 4.1, Chloride 113 H, Carbon Dioxide 19.0 L, Anion Gap 8, BUN 9, Creatinine 0.83, Estim Creat Clear Calc 63.80, Est GFR (MDRD) Af Amer 91, Est GFR (MDRD) Non-Af 75, BUN/Creatinine Ratio 10.8, Glucose 66 L, Calcium 8.4 L Micro: Microbiology 03/14/22 15:30 Stool Enteric Bacteriology - Final 03/14/22 15:30 Stool C. difficile DNA Amplification - Final Physical Exam Const oriented x3 and no apparent distress Resp normal respiratory effort Cardio regular rate GI soft to palpation and non-tender Inspection: Negative for abdominal distention Assessment & Plan Assessment/Plan (1) Colitis: PLAN: Okay for clears and advance to full/low residue when tolerating--depending on speech eval. As patient's pain is much improved. Would discharge with antibiotics for a total of 2 weeks. Tiffani Grullon M.D. Pager: [phone] [facility] [address] [place] [address], [facility], [address] [place] [id number] Office: [phone] Charges/Coding Visit Charges Inpatient E&M: 48816 Subs Hosp L2
[2022-03-17] MEDS: 0.9% Saline Lock 10 ML Syringe IV ×2 (14:44→22:35)
--- NOTE | 2022-03-17 15:26 | SP.MBSS_ITS ---
Modified Barium Swallow - Patient Information Study Date: 03/17/22 Study Time: 14:00 Direct Billable Minutes: 115 Total Minutes procedure & reportin Diagnosis: GERD (K21.9), COPD (J44.9) Referring Physician: Jessica Barron Reason for Referral: Objectively assess swallow function, risk for aspiration, and determine recommendations for least restrictive diet textures and compensatory strategies to improve safety of swallow. Medical History: The patient is a 57-year-old female with extensive PMH including bipolar disorder, schizoaffective disorder, asthma, cancer, COPD, GERD, CKD, difficulty chewing, CHF, IBS, HTN, injury of the head/neck, seizures, and CVA (SEE EMR for full PMH). The patient had recent hospitalization at [facility] on with shortness of breath and productive cough with green sputum. Chest x-ray obtained in the ED demonstrated patchy bibasilar infiltrate more prominent at the right lung base. She was seen by speech therapy and recommended for minced and moist textures / thin liquids with distant supervision. She has a history of oropharyngeal dysphagia. The patient has participated in two MBS studies at [facility] since 2018. Most recent MBS study on 07/19/2020 revealed mild oropharyngeal phase dysphagia and recommended Mechanical Soft Textures, Thin Liquids, Compensatory Strategies: Small Bites, Small Sips, Slow Rate, Alternate bites/solids and sips/liquids, Sitting upright, Remain sitting upright for 30 minutes after PO intake, Supervision: Distant Supervision. The patient now returns to [facility] ED on 03/13/2022 with abdominal pain. She also reported nausea and vomiting on day of admission. She has been admitted for management of constipation and colitis. In addition, CT of abdomen revealed increased markings at the lung bases more pronounced on the left side suggestive of a bibasilar atelectasis and/or infiltrates. She was referred for speech consult due to concern for aspiration. Pt NPO with sips and chips ? unable to advance diet until cleared by physician due to colitis. HAND COLLATOR recommending MBS study to rule out risk for silent aspiration given recent aspiration PNA and hx of dysphagia. Pt ok for clear liquids & diet advancement as tolerated 03/17/2022. Additionally, she was cleared for participation in MBS study 03/17/2022. Current Diet Ordered: NPO sips and chips Dentition: Missing Teeth Mental Status: WNL Respiratory Status: Oxygenating on Room Air - Penetration-Aspiration Scale Penetration-Aspiration Scale: OBJECTIVE ASSESSMENT OF SWALLOW FUNCTION (QUANTITATIVE ? PER TRIAL): PENETRATION / ASPIRATION SCALE (MYERS): 1 = does not enter airway 2 = enters airway/above vocal folds/ejected 3 = enters airway/above vocal folds/not ejected 4 = enters airway/contacts vocal folds/ejected 5 = enters airway/contacts vocal folds/not ejected 6 = enters airway/below vocal folds/ejected 7 = enters airway/below vocal folds/not ejected despite effort 8 = enters airway/below vocal folds/no effort VIDEOFLOROSCOPIC SCALE SCORE (MYERS): Grade I = aspiration of material that has penetrated into the laryngeal vestibule, intact cough reflex Grade II = aspiration < 10 % of the bolus, intact cough reflex Grade III = aspiration of < 10 % of the bolus, reduced cough reflex or aspiration of > 10 % of the bolus, intact cough reflex Grade IV = aspiration of > 10 % of the bolus, reduced cough reflex - Penetration-Aspiration Scale Score Thin Liquid via teaspoon Result: 2= enter airway/above vocal folds/ejected Thin Liquid via teaspoon Trial 2 Result: 3= enters airways/above vocal folds/not ejected Thin Liquid via small single sip from cup Result: 2= enter airway/above vocal folds/ejected Thin Liquid via sequential sips from cup Result: 2= enter airway/above vocal folds/ejected Thin Liquid via small single sip from cup Effortful swallow Result: 2= enter airway/above vocal folds/ejected - Pt verbalized it was difficult to initiate effortful swallow. [place] Thick Liquid via small single sip from cup Result: 1= does not enter airway [place] Thick Liquid via small single sip from cup Trial 2 Result: 1= does not enter airway Honey Thick Liquid via small single sip from cup Result: 2= enter airway/above vocal folds/ejected Pudding via teaspoon with esophageal screen Result: 1= does not enter airway Barium Tablet with water Comment: Two sips required to clear from oral cavity, coughing during the swallow, retention of barium tablet in lower esophagus. Barium Tablet with pudding Comment: Good oral and pharyngeal clearance, no retention of pill observed. Thin Liquid via single sip from straw Result: 2= enter airway/above vocal folds/ejected [place] Thick Liquid via small single sip from cup Trial 3 Result: 2= enter airway/above vocal folds/ejected - Oral Phase Labial Seal: No Labial Escape Tongue Control During Bolus Hold: Posterior escape of greater than half of bolus Bolus Preparation/Mastication: Disorganized chewing/mashing with solid pieces of bolus unchewed Bolus Transport/Lingual Motion: Delayed initiation of tongue motion Oral Residue: Trace residue lining oral structures - Pharyngeal Phase Initiation of Pharyngeal Swallow: Bolus head in pyriforms Soft Palate Elevation: Trace column of contrast/air between soft palate and pharyngeal wall Laryngeal Elevation: Partial superior movement thyroid cart/partial apprx aryt- epig petiole Anterior Hyoid Excursion: Partial anterior movement Epiglottic Movement: Complete inversion Laryngeal Vestibule Closure at Height of Swallow: Incomplete; narrow column of air/contrast in laryngeal vestibule Pharyngeal Stripping Wave: Present - complete Pharyngoesophageal Segment Opening: Parital distension and partial duration; parital obstruction of flow Tongue Base Retraction: Trace column of contrast between tongue base & post. pharyngeal wall Pharyngeal Residue: Trace residue within or on pharyngeal structures - Esophageal Phase Esophageal Clearance: Esophageal retention w/ retrograde flow through pharyngoesophageal seg - Diagnosis/Impression Diagnosis: Mild-mod oropharyngeal dysphagia R13.12, Mild esophageal dysphagia R13.14 Impression: The oral phase is primarily marked by decreased bolus control and decreased mastication. The patient presented with premature posterior loss of >1/2 of various liquid trials to the pyriform sinuses, which resulted in suboptimal bolus placement prior to swallow onset. She had difficulty coordinating her swallow of the pill with water, resulting in poor oral clearance on the first attempt to swallow and coughing on the water during the swallow on the second attempt to swallow. She had prolonged and decreased mastication of 1/4 of the cookie. The pharyngeal phase is marked by decreased anterior hyoid excursion and laryngeal elevation with resulting deficits in laryngeal vestibular closure during the swallow. She demonstrated consistent laryngeal penetration of thin liquids during the swallow with frequent coughing during or immediately after the swallow, which helped to eject contrast from the laryngeal vestibule. No aspiration observed during the study. She additionally had trace laryngeal penetration with full ejection of nectar and honey thick liquids via cup on one trial of each. She had mildly decreased UES opening/duration. The esophageal phase is primarily marked by retention of contrast in the mid and lower esophagus. CP bar present at the level of C5 that may be contributing to trace retention of contrast in upper esophagus with retrograde flow through UES. SEE image below. She is at increased risk for reflux aspiration. - Recommendations Diet: Mechanical Soft Textures - Minced and moist textures (IDDSI Level 5), [place]-thick Liquids - Mildly thick liquids (IDDSI Level 2 Comment: Consider smaller, more frequent meals; Crush medications in applesauce/pudding/yogurt as able, any medications that must be whole provide in applesauce/pudding/yogurt. Compensatory Strategies: Small Bites, Small Sips, Slow Rate, Sitting upright, Remain sitting upright for 30 minutes after PO intake - 60 minutes after meal Supervision: Distant Supervision Recommend Repeat Modified Barium Swallow: Yes - Will recommend repeat MBS study after 4-6 weeks after implementation of oropharyngeal strengthening exercise program. Need for Skilled Speech Therapy Services: Yes Comment: Will recommend the patient for outpatient dysphagia therapy to address deficits in oropharyngeal swallow function. Would consider the patient for oropharyngeal strengthening to improve lingual strength/coordination, laryngeal elevation, hyoid excursion, and duration of UES opening (lingual resistance exercises, effortful swallow, Pham, CTAR). The patient would benefit from thorough education regarding diet recommendations and recommended compensatory strategies. Additionally, will recommend the patient for implementation of Alanis Free Water Protocol (FFWP) to encourage hydration and promote increased opportunities for swallowing throughout the patient?s day. Recommended Referrals: GI Consult - Consider GI consult - pt not appropriate for barium esophagram due to increased aspiration risk with thin liquid and sequential sips. CP bar at C5. SEE Impressions for full esophageal phase findings. Education Completed: 1. Described result of evaluation., 7. Pt requires further education on strategies & risks. - Image Count: 1,178 - Status Active ST Patient: Active - Contact Information [facility] Speech Therapy:: Adela Santiago M.A. [facility]-HAND COLLATOR Speech-Language Pathologist [facility] [address] [place] [address] [phone] 03/17/22 15:38
[2022-03-17] MEDS: Sucralfate 1 GM Tablet PO (17:08)
[2022-03-17] MEDS: Ceftriaxone 1 GM/50 ML BAG IV (21:32)
[2022-03-17] MEDS: MELATONIN 10 MG TABLET PO (22:38)
[2022-03-18 06:24] VITALS: BP 154/61; PULSE 65; RESP 20; TEMP 36.9; O2SAT 95
[2022-03-18] MEDS: 0.9% Normal Saline 1,000 ML 100 ML IV (06:25)
[2022-03-18] MEDS: Sucralfate 1 GM Tablet PO (06:26)
[2022-03-18] MEDS: metroNIDAZOLE 500 MG/100 ML BAG 100 MG IV (06:28)
[2022-03-18 06:55] VITALS: PULSE 65; RESP 18; O2SAT 95
[2022-03-18] MEDS: Budesonide Respules 0.5 MG/2 ML AMPUL.NEB. INHALATION (06:55)
[2022-03-18] MEDS: Ipratropium/Albuterol Sulfate 3 ML AMPUL.NEB INHALATION (06:55)
[2022-03-18] MEDS: Enoxaparin 40 MG/0.4 ML Syringe SC (07:57)
[2022-03-18] MEDS: Fluticasone 0.05% 1 SPRAY NASAL.SRY NASAL (07:57)
[2022-03-18] MEDS: Azelastine HCl NASAL.SRY 1 SPRAY NASAL (07:57)
[2022-03-18] MEDS: prednisoLONE eye drops (5 mL) 1 DROP OPTH.BTL 1 DRP EACH EYE (07:58)
[2022-03-18] MEDS: NYSTATIN 500,000 UNIT/5 ML UDC 500000 UNIT PO (07:58)
[2022-03-18 08:00] LABS: Absolute Lymphocyte Count 0.91 X10^3/uL (0.83-4.51); Absolute Neutrophil Count 5.1 X10^3/uL (2.0-7.7); Basophil# 0.02 X10^3/uL; Basophil% 0.3 % (0-1); Eosinophil# 0.16 X10^3/uL; Eosinophils% 2.4 % (0-5); Hematocrit 37.3 % (37-47); Hemoglobin 12.5 g/dL (12.0-15.0); Lymphocyte # 0.91 X10^3/ul (0.83-4.51); Lymphocyte % 13.6 % (19-41); Mean Corp Hgb Conc 33.5 g/dL (32-36); Mean Corpuscular Hgb 30.4 pg (27.0-32.0); Mean Corpuscular Volume 90.8 fL (81-99); Mean Platelet Vol. 11.2 fl (6.2-12.0); Monocyte# 0.52 X10^3/uL; Monocyte% 7.8 % (0-10); NRBC Flagged by Analyzer 0 % (0-5); Neutrophil # 5.05 X10^3/uL (2.7-7.7); Neutrophil % 75.5 % (47-70); Platelet Count 195 K/mm3 (150-450); RBC Distribution Width CV 14.1 % (11.6-14.6); RBC Distribution Width SD 46.5 fl (35.1-43.9); Red Blood Count 4.11 M/mm3 (4.2-5.4); White Blood Count 6.7 K/mm3 (4.4-11.0)
[2022-03-18 08:20] LABS: Anion Gap 7 (5-15); BUN 6 mg/dL (7-18); Calcium,Total 8.3 mg/dL (8.5-10.1); Chloride 115 mmol/L (98-107); Creatinine, Serum 0.75 mg/dL (0.55-1.02); EST Glomerular Filtration Rate 84 mL/min (>60); Est Glom Filt Rate - Afr Amer 102 mL/min (>60); Glucose 103 mg/dL (74-106); Potassium 3.7 mmol/L (3.5-5.1); Sodium Level 143 mmol/L (136-145)
--- NOTE | 2022-03-18 09:37 | PCM.DC.SUM ---
Providers Date of Admission: 03/13/22 Primary Care Physician: Dr. Scarlet Navarro MD Consultations 03/14/22 11:56 Consult: General Surgery Routine Consulting Provider: Tiffani Grullon Reason for Consult: Abd pain, colitis EMERGENT Consult: No MD Notified: Yes Date Notified: 03/14/22 Time Notified: 11:56 Method of Notification: Text Reason For Visit: ACUTE COLITIS Diagnosis Discharge Diagnosis (1) Colitis: Status: Acute Code(s): K52.9 - Noninfective gastroenteritis and colitis, unspecified Medications at Discharge Home Medications albuterol sulfate 90 mcg/actuation aerosol inhaler 2 puff INHALATION Q4H PRN #8.5 g 11/23/21 ondansetron 4 mg disintegrating tablet 4 mg PO Q8H PRN #14 tab 11/29/21 nitroglycerin 0.4 mg sublingual tablet 0.4 mg SUBLINGUAL PRN PRN #25 tab 12/05/21 omeprazole 40 mg PO DAILY 12/07/21 aspirin 81 mg tablet,delayed release 81 mg PO DAILY #90 tab 12/16/21 hydralazine 50 mg tablet 50 mg PO TID #270 tab 12/19/21 losartan 100 mg tablet 100 mg PO DAILY #90 tab 12/19/21 lidocaine 1 patch TOPICAL DAILY PRN 12/26/21 polyethylene glycol 3350 17 gram/dose oral powder 17 g PO BID PRN #238 g 12/26/21 fluticasone propionate 50 mcg/actuation nasal spray,suspension 1 spray NASAL BID #16 g 02/14/22 furosemide 20 mg tablet 20 mg PO BID #90 tab 02/14/22 loratadine 10 mg tablet 10 mg PO DAILY #90 tab 02/14/22 Desenex 1 applic TOPICAL BID 02/27/22 atorvastatin 40 mg PO QHS 02/27/22 azelastine 1 spray INTRANASAL BID 02/27/22 cholecalciferol (vitamin D3) 50,000 unit PO FR 02/27/22 levothyroxine 50 mcg PO DAILY 02/27/22 melatonin 10 mg PO QHS 02/27/22 spironolactone 25 mg PO QHS 02/27/22 prednisolone acetate 1 % eye drops,suspension 1 drp EACH EYE BID ml 03/09/22 guaifenesin 1,200 mg tablet, extended release 12 hr 600 mg PO BID #60 tab 03/10/22 tiotropium bromide 1.25 mcg/actuation mist for inhalation 2 puff INHALATION DAILY #4 g 03/14/22 budesonide-formoterol HFA 160 mcg-4.5 mcg/actuation aerosol inhaler 2 puff INHALATION BID #10.2 g 03/17/22 montelukast 10 mg tablet 10 mg PO QHS #30 tab 03/17/22 nifedipine 60 mg tablet,extended release 24 hr 30 mg PO BID #30 tab 03/17/22 sucralfate 1 gram tablet 1 g PO TID #90 tab 03/17/22 loperamide 2 mg PO Q4H PRN #10 cap 03/18/22 metronidazole 500 mg PO Q8H #30 tab 03/18/22 Hospital Course Operations None Procedures None Summary of Care Provided Minutes Spent on Discharge: 45 Hospital Course: Patient is a 57 y/o female with a PMH as outlined who was admitted via the ED on 03/13/2022 with a complaint of severe abdominal pain. Pain started when she was drinking coffee and was mainly in the epigastric an divya umbilical region. She had associated nausea and vomiting. She had associated anorexia. Pain had no aggravating or relieving factors. CT of the abdomen showed mild colitis of hte descending colon. She was admitted and managed for acute colitis. She was kept NPO and started on IV ceftriaxone and flagyl. General surgery was consulted. SHe had repeat CT abdomen with pelvis per general surgery which showed colitis of the distal transverse and descending colon. Abdominal pain gradually improved and she felt better; she was started on a clear liquid diet and she tolerated this, so diet was advanced and she tolerated it. She felt better and she was discharged home on 03/18/2022 to complete a 2 week course. Patient seen and examined. She complained of a few episodes of diarrhea overnight, but felt much better than previously. Abdominall pain had completely resolved. Review of systems is otherwise negative. Labs and vitals reviewed. Home meds reivewed and reconciled. Physical Exam Const alert, oriented x3 and no apparent distress General Appearance: cooperative, comfortable and well kempt Exam Limitations: no limitations Nutritional Appearance: morbidly obese HEENT normocephalic, head/scalp atraumatic, hearing grossly normal bilaterally and moist oral mucous membranes Eyes PERRL, EOMs intact bilaterally, conjunctivae normal and no scleral icterus Neck no lymphadenopathy and supple General: trachea midline Resp normal respiratory effort, normal air movement, no retractions, no use of accessory muscles and clear to auscultation bilaterally Effort and Inspection: able to speak in complete sentences and symmetric chest movement Cardio regular rate, regular rhythm, S1 normal heart sound, S2 normal heart sound and no murmurs GI normal to inspection, nondistended, normoactive bowel sounds, soft to palpation, non-tender and non-distended Inspection: abdominal distention Auscultation: hypoactive bowel sounds Palpation: firm Extremity normal to inspection, full ROM and no clubbing, cyanosis or edema Skin no rashes or lesions noted, no wounds and skin turgor normal Neuro oriented x3, moves all extremities, no focal motor deficits and no sensory deficits noted Sensorium / Orientation: awake and alert Speech: speech normal Psych affect normal Weight / BMI Weight Weight: 266 lb 5.094 oz Body Mass Index (BMI) 45.7 ABG / Lab / Microbiology Data Result Diagrams: 03/18/22 06:45 03/18/22 06:45 Laboratory: Laboratory Results - last 24 hr 03/18/22 06:45: WBC 6.7, RBC 4.11 L, Hgb 12.5, Hct 37.3, MCV 90.8, MCH 30.4, MCHC 33.5, RDW Std Deviation 46.5 H, RDW Coeff of Yonathan 14.1, Plt Count 195, MPV 11.2, Immature Gran % (Auto) 0.400, Neut % (Auto) 75.5 H, Lymph % (Auto) 13.6 L, Braxton % (Auto) 7.8, Eos % (Auto) 2.4, Baso % (Auto) 0.3, Absolute Neuts (auto) 5.1, Absolute Lymphs (auto) 0.91, Nucleated RBC % 0 03/18/22 06:45: Sodium 143, Potassium 3.7, Chloride 115 H, Carbon Dioxide 21.0, Anion Gap 7, BUN 6 L, Creatinine 0.75, Estim Creat Clear Calc 70.60, Est GFR (MDRD) Af Amer 102, Est GFR (MDRD) Non-Af 84, BUN/Creatinine Ratio 8.0 L, Glucose 103, Calcium 8.3 L Microbiology: Microbiology 03/14/22 15:30 Stool Enteric Bacteriology - Final 03/14/22 15:30 Stool C. difficile DNA Amplification - Final D/C Instructions Discharge Diet: Low fat / Low cholesterol Discharge Activity: Return to Normal Activity Weight Bearing Status: Weight bearing as tolerated Call your doctor if you observe: Fever of 101 or Higher, Shortness of breath, Swelling in the ankles and Uncontrolled pain Meaningful Use Info Meaningful Use Diagnoses (Choose all that apply): None applicable Discharge Plan Admission Admit Date/Time: 03/13/22 21:19 Primary Reason for Your Visit: acute colitis Attending Provider: Jessica Barron Primary Care Provider: Scarlet Navarro Consulting Providers: Amador Delgado ; Tiffani Grullon Instructions Patient Instructions: Compazine Oral Tablet 5 mg Discharge Orders/Prescriptions Prescriptions: New metronidazole 500 mg tablet 500 mg PO Q8H Qty: 30 RF: 0 loperamide 2 mg capsule 2 mg PO Q4H PRN (Reason: loose stool) Qty: 10 RF: 0 Continued nitroglycerin 0.4 mg tablet, sublingual 0.4 mg SUBLINGUAL PRN PRN (Reason: CHEST PAIN) Qty: 25 RF: 3 omeprazole 40 mg capsule,delayed release(DR/EC) 40 mg PO DAILY RF: 0 prednisolone acetate 1 % drops,suspension 1 drp EACH EYE BID RF: 0 lidocaine 5 % adhesive patch,medicated 1 patch topical DAILY PRN (Reason: Pain) RF: 0 atorvastatin 40 mg tablet 40 mg PO QHS RF: 0 Desenex 2 % powder 1 applic TOPICAL BID RF: 0 spironolactone 25 mg tablet 25 mg PO QHS RF: 0 levothyroxine 50 mcg tablet 50 mcg PO DAILY RF: 0 cholecalciferol (vitamin D3) 1,250 mcg (50,000 unit) capsule 50,000 unit PO FR RF: 0 azelastine 205.5 mcg (0.15 %) spray,non-aerosol 1 spray intranasal BID RF: 0 melatonin 10 mg capsule 10 mg PO QHS RF: 0 albuterol sulfate 90 mcg/actuation HFA aerosol inhaler 2 puff inhalation Q4H PRN (Reason: shortness of breath or wheezing) Qty: 8.5 RF: 6 ondansetron 4 mg tablet,disintegrating 4 mg PO Q8H PRN (Reason: nausea and vomiting) Qty: 14 RF: 0 aspirin 81 mg tablet,delayed release (DR/EC) 81 mg PO DAILY Qty: 90 RF: 1 losartan 100 mg tablet 100 mg PO DAILY Qty: 90 RF: 1 hydralazine 50 mg tablet 50 mg PO TID Qty: 270 RF: 3 polyethylene glycol 3350 [Miralax] 17 gram/dose powder 17 g PO BID PRN (Reason: Constipation) Qty: 238 RF: 1 fluticasone propionate 50 mcg/actuation spray,suspension 1 spray NASAL BID Qty: 16 RF: 1 furosemide 20 mg tablet 20 mg PO BID Qty: 90 RF: 1 loratadine 10 mg tablet 10 mg PO DAILY Qty: 90 RF: 1 guaifenesin 1,200 mg tablet extended release 12hr 600 mg PO BID Qty: 60 RF: 1 Spiriva Respimat 1.25 mcg/actuation mist 2 puff inhalation DAILY Qty: 4 RF: 6 budesonide-formoterol [Symbicort] 160-4.5 mcg/actuation HFA aerosol inhaler 2 puff INHALATION BID Qty: 10.2 RF: 3 montelukast [Singulair] 10 mg tablet 10 mg PO QHS Qty: 30 RF: 11 nifedipine 60 mg tablet extended release 24hr 30 mg PO BID Qty: 30 RF: 11 sucralfate 1 gram tablet 1 g PO TID Qty: 90 RF: 0 Referrals / Follow Up: Scarlet Navarro MD [Primary Care Provider] - Within 2 Weeks Tiffani Grullon MD [STAFF PHYSICIAN] - Within 2 Weeks Disposition Disposition (needs filled in before D/C Order can be placed): Home, Self Care Charges/Coding Visit Charges Inpatient E&M: 31835 Disch Hosp
--- NOTE | 2022-03-18 10:23 | PCM.PN.SRG ---
Subjective Subjective Pain significantly improved Objective Data Objective Data Abdomen is soft Vital Signs: Vital Signs Temp Pulse Resp BP Pulse Ox 98.4 F 65 18 154/61 H 95 03/18/22 06:24 03/18/22 06:55 03/18/22 06:55 03/18/22 06:24 03/18/22 06:55 Oxygen Flow Rate (L/min) 2 Oxygen Delivery Method Room Air Weight: 266 lb 5.094 oz Body Mass Index (BMI) 45.7 Intake & Output: Intake and Output for Last 24 Hours 03/16/22 03/17/22 03/18/22 23:59 23:59 23:59 Intake Total 2450.00 / 2450.00 3320.00 / 3320.00 798.34 / 798.34 Balance 2450.00 / 2450.00 3320.00 / 3320.00 798.34 / 798.34 Lab / Micro Data Result Diagrams: 03/18/22 06:45 03/18/22 06:45 Labs: Laboratory Results - last 24 hr 03/18/22 06:45: WBC 6.7, RBC 4.11 L, Hgb 12.5, Hct 37.3, MCV 90.8, MCH 30.4, MCHC 33.5, RDW Std Deviation 46.5 H, RDW Coeff of Yonathan 14.1, Plt Count 195, MPV 11.2, Immature Gran % (Auto) 0.400, Neut % (Auto) 75.5 H, Lymph % (Auto) 13.6 L, Andrew % (Auto) 7.8, Eos % (Auto) 2.4, Baso % (Auto) 0.3, Absolute Neuts (auto) 5.1, Absolute Lymphs (auto) 0.91, Nucleated RBC % 0 03/18/22 06:45: Sodium 143, Potassium 3.7, Chloride 115 H, Carbon Dioxide 21.0, Anion Gap 7, BUN 6 L, Creatinine 0.75, Estim Creat Clear Calc 70.60, Est GFR (MDRD) Af Amer 102, Est GFR (MDRD) Non-Af 84, BUN/Creatinine Ratio 8.0 L, Glucose 103, Calcium 8.3 L Micro: Microbiology 03/14/22 15:30 Stool Enteric Bacteriology - Final 03/14/22 15:30 Stool C. difficile DNA Amplification - Final Assessment & Plan Assessment/Plan (1) Colitis: PLAN: Okay to DC today. Follow-up with Dr. Celestin in 1 week.
[2022-03-18 11:00] VITALS: BP 156/68; PULSE 64; RESP 18; TEMP 37.1; O2SAT 94
== END 2022-03-18 11:26 | disposition home or self-care (01) | DRG 249 ==
LOC: ED 21:20 → MS3 21:40
PROVIDERS: Nurse Practitioner Family; Admitting Provider Hospitalist; Emergency Provider Emergency Medicine; PCP Internal Medicine; Visit Provider Student in an Organized Health Care Education/Training Program
DX: K52.9 Noninfective gastroenteritis and colitis, unspecified (principal); B37.0 Candidal stomatitis; N17.9 Acute kidney failure, unspecified; G40.909 Epilepsy, unspecified, not intractable, without status epilepticus; I48.0 Paroxysmal atrial fibrillation; D75.1 Secondary polycythemia; F31.9 Bipolar disorder, unspecified; J44.9 Chronic obstructive pulmonary disease, unspecified; F20.9 Schizophrenia, unspecified; E66.01 Morbid (severe) obesity due to excess calories; Z68.42 Body mass index [BMI] 45.0-49.9, adult; N18.32 Chronic kidney disease, stage 3b; I12.9 Hypertensive chronic kidney disease with stage 1 through stage 4 chronic kidney disease, or unspecified chronic kidney disease; E03.9 Hypothyroidism, unspecified; E78.00 Pure hypercholesterolemia, unspecified; M19.90 Unspecified osteoarthritis, unspecified site; K21.9 Gastro-esophageal reflux disease without esophagitis; E78.5 Hyperlipidemia, unspecified; I35.1 Nonrheumatic aortic (valve) insufficiency; I34.0 Nonrheumatic mitral (valve) insufficiency; G47.33 Obstructive sleep apnea (adult) (pediatric); F17.210 Nicotine dependence, cigarettes, uncomplicated; K29.50 Unspecified chronic gastritis without bleeding; K59.00 Constipation, unspecified; Z86.73 Personal history of transient ischemic attack (TIA), and cerebral infarction without residual deficits; Z86.711 Personal history of pulmonary embolism; Z87.19 Personal history of other diseases of the digestive system; Z90.49 Acquired absence of other specified parts of digestive tract; Z79.899 Other long term (current) drug therapy; Z79.82 Long term (current) use of aspirin; Z79.51 Long term (current) use of inhaled steroids
CPT/HCPCS: 36415; 74176; 74230; 80048; 80053; 85025; 87493; 87506; 92526; 92610; 92611; 94640; 97802; 97803; 99285; 99406; J7030; J7050; A4216; J2405

== ENCOUNTER 2022-03-30 13:36 | Emergency (ER) | payer MEDICAID, SELFPAY ==
[2022-03-30 13:37] VITALS: BP 148/82; PULSE 97; RESP 18; TEMP 36.4; O2SAT 97; BMI 44.2
--- NOTE | 2022-03-30 14:27 | ED.RN ---
PT DECIDED NOT TO BE SEEN. PER PT WE ARE TOO BUSY AND THERE IS A STORM COMING SO SHE WAS GOING TO LEAVE. PT AMBULATED OUT OF DEPARTMENT WITHOUT DIFFICULTY.
== END 2022-03-30 14:25 | disposition left against medical advice (07) ==
LOC: ED 14:34
PROVIDERS: PCP Internal Medicine
DX: Z53.21 Procedure and treatment not carried out due to patient leaving prior to being seen by health care provider (principal)

== ENCOUNTER 2022-04-12 14:00 | Outpatient (RCR) | payer MEDICAID, SELFPAY | END 2022-04-13 23:59 | LOC: NS 14:00 | PROVIDERS: PCP Internal Medicine; Referring Provider Internal Medicine; Visit Provider Internal Medicine | DX: Z71.3 Dietary counseling and surveillance (principal); E66.01 Morbid (severe) obesity due to excess calories | CPT/HCPCS: 97803 ==

== ENCOUNTER 2022-04-13 11:20 | Emergency (ER) | payer MEDICAID, SELFPAY ==
[2022-04-13 11:21] VITALS: BP 163/91; PULSE 110; RESP 18; TEMP 36.6; O2SAT 99; BMI 43.4
--- NOTE | 2022-04-13 11:50 | EDS_ITS ---
HPI HPI - GI History of Present Illness Chief Complaint: Abd Pain Detail of Chief Complaint: Abdominal pain, nausea, vomiting and diarrhea with weight loss Informant: patient Abdominal Pain/Flank Pain Onset: Weeks Context: Sudden Onset Timing: Continuous Quality: Aching Location: - (Diffuse) Current Severity: Mild Maximum Severity: Moderate Worsened by: - (Without prompting patient denied any exacerbating factors other than eating) Relieved by: Nothing Nausea/Vomiting/Emesis GI Symptom: Positive for Nausea and Vomiting Onset: Weeks Quality: Negative for Nonbilious, Blood streaks, Coffee ground or Hematemesis Severity: With every attempt to eat or drink anything other than water Diarrhea/Melena/Hematochezia GI Symptom: Positive for Diarrhea; Negative for Melena or Hematochezia Onset: Weeks Stool Quality: Positive for Loose, Watery and Mucous; Negative for Black, Maroon or BRB per rectum Severity: Moderate Associated Symptoms Associated Symptoms: Negative for Dysuria, Frequency, Hematuria or Urgency LMP: Postmenopausal Narrative Narrative: Patient is a 57-year-old woman who had a 5-day stay for acute colitis. She was discharged on [address] Tiffani Rey March 30. She states she was seen by the roll forming supervisor yesterday and told she had significant weight loss. She does not know how much she lost. She states/endorses looser on her. She states every time she drinks anything other than water she vomits. She also reports diarrhea several times a day. She has noted mucus without blood. There is no history of Crohn's disease or ulcerative colitis. When asked if she has had fevers her response was I cannot have fevers she denies chills. She denies headache, visual, ocular auditory symptoms. She does endorse dry mouth and thirst. She denies cardiac or respiratory symptoms. She denies urologic symptoms. She is postmenopausal. Prior similar symptoms: Yes Recent Illness/Hospitalization: Yes (Admitted the end of February) [facility] Medical History Abdominal pain Allergic rhinitis Aortic valve insufficiency Arthralgia of right hip Arthritis Asthma Back pain Bilateral flank pain Bilateral foot pain Bipolar 1 disorder Bipolar disorder Blackout Bladder disease Cancer Cardiology follow-up encounter Chest pain Chest pain Chest pain Chest pain CKD (chronic kidney disease) Colitis Conversion disorder Conversion disorder with abnormal movement Convulsion, non-epileptic COPD (chronic obstructive pulmonary disease) COPD, mild CPAP (continuous positive airway pressure) dependence Cyst Debility Depression Diarrhea Dietary restriction Difficulty chewing Dysuria Easy bruising Enlarged aorta Excessive bleeding Gastric reflux Gastritis GERD (gastroesophageal reflux disease) GERD (gastroesophageal reflux disease) Heart failure High cholesterol Hip dislocation, right History of abnormal cervical Pap smear History of atrial fibrillation History of CHF (congestive heart failure) History of echocardiogram History of edema History of hiatal hernia History of IBS History of stress test History of ulceration HLD (hyperlipidemia) HTN (hypertension) Hx of tilt table evaluation Hypertensive crisis without congestive heart failure Hypokalemia Hyponatremia Hyponatremia Hypothyroidism Injury of head and neck Intertriginous dermatitis associated with moisture Kidney disease Left arm swelling Leg cramps Marijuana use Migraine Migraines Morbid obesity Myositis Nausea & vomiting Nausea and vomiting Non-convulsive status epilepticus Non-rheumatic mitral regurgitation Nonrheumatic aortic (valve) insufficiency Open wound Oral candidiasis Orthostatic hypotension DAPHNE (obstructive sleep apnea) Osteoarthritis Osteoarthritis of right hip PAF (paroxysmal atrial fibrillation) Pain of left calf Peripheral artery disease Post-menopausal Psychosis Pulmonary embolism Right hip pain Sarcoidosis Schizo NEC, chrn/exacerb Schizophrenia Seizures Shortness of breath on exertion Smoker Stroke Stroke/cerebrovascular accident Syncope Thyroid disease TIA (transient ischemic attack) Tobacco abuse Venous insufficiency of both lower extremities Walker as ambulation aid Wears dentures Home Medications albuterol sulfate 90 mcg/actuation aerosol inhaler 2 puff inhalation Q4H PRN shortness of breath or wheezing #8.5 grams 11/23/21 [Rx Last Taken 03/13/22] nitroglycerin 0.4 mg sublingual tablet 0.4 mg sublingual PRN PRN CHEST PAIN #25 tabs 12/05/21 [Rx Last Taken Unknown] omeprazole 40 mg capsule,delayed release 40 mg PO DAILY gastric reflux 12/07/21 [History Last Taken 03/13/22] aspirin 81 mg tablet,delayed release 81 mg PO DAILY heart health #90 tabs 12/16/21 [Rx Last Taken 03/13/22] hydralazine 50 mg tablet 50 mg PO TID blood pressure #270 tabs 12/19/21 [Rx Last Taken 03/13/22 22:18] losartan 100 mg tablet 100 mg PO DAILY bp #90 tabs 12/19/21 [Rx Last Taken 03/13/22 22:19] lidocaine 5 % topical patch 1 patch topical DAILY PRN Pain 12/26/21 [History Last Taken 03/11/22] polyethylene glycol 3350 17 gram/dose oral powder (Miralax) 17 g PO BID PRN Constipation #238 grams 12/26/21 [Rx Last Taken 03/13/22 22:20] furosemide 20 mg tablet 20 mg PO BID edema #90 tabs 02/14/22 [Rx Last Taken 03/13/22] loratadine 10 mg tablet 10 mg PO DAILY allergies #90 tabs 02/14/22 [Rx Last Taken 03/13/22] atorvastatin 40 mg tablet 40 mg PO QHS cholesterol 02/27/22 [History Last Taken 03/13/22] azelastine 205.5 mcg (0.15 %) nasal spray 1 spray intranasal BID allergies 02/27/22 [History Last Taken 03/13/22] cholecalciferol (vitamin D3) 1,250 mcg (50,000 unit) capsule 50,000 unit PO FR supplement 02/27/22 [History Last Taken 03/13/22] levothyroxine 50 mcg tablet 50 mcg PO DAILY thyroid 02/27/22 [History Last Taken 03/13/22 22:18] melatonin 10 mg capsule 10 mg PO QHS insomnia 02/27/22 [History Last Taken 03/13/22] miconazole nitrate 2 % topical powder (Desenex) 1 applic topical BID rash 02/27/22 [History Last Taken 03/10/22] spironolactone 25 mg tablet 25 mg PO QHS bp 02/27/22 [History Last Taken 03/13/22 22:21] prednisolone acetate 1 % eye drops,suspension 1 drp EACH EYE BID Inflammation 03/09/22 [History Last Taken 03/13/22 22:20] guaifenesin 1,200 mg tablet, extended release 12 hr 600 mg PO BID allergies #60 tabs 03/10/22 [Rx Last Taken 03/13/22 22:18] budesonide-formoterol HFA 160 mcg-4.5 mcg/actuation aerosol inhaler (Symbicort) 2 puff inhalation BID wheezing #10.2 grams 03/17/22 [Rx Last Taken Unknown] montelukast 10 mg tablet (Singulair) 10 mg PO QHS allergies #30 tabs 03/17/22 [Rx Last Taken Unknown] nifedipine 60 mg tablet,extended release 24 hr 30 mg PO BID bp #30 tabs 03/17/22 [Rx Last Taken Unknown] loperamide 2 mg capsule 2 mg PO Q4H PRN loose stool #10 caps 03/23/22 [Rx Last T aken Unknown] ondansetron 4 mg disintegrating tablet 4 mg PO Q8H PRN nausea and vomiting #60 tabs 03/23/22 [Rx Last Taken Unknown] prochlorperazine maleate 5 mg tablet (Compazine) 5 mg PO BID PRN nausea and vomiting #20 tabs 03/23/22 [Rx Last Taken Unknown] esomeprazole magnesium 40 mg capsule,delayed release 40 mg PO DAILY #90 caps 03/30/22 [Rx Last Taken Unknown] tiotropium bromide 1.25 mcg/actuation mist for inhalation (Spiriva Respimat) 2 puff inhalation DAILY breathing #4 grams 04/10/22 [Rx Last Taken Unknown] fluticasone propionate 50 mcg/actuation nasal spray,suspension 1 spray NASAL BID allergies #16 grams 04/13/22 [Rx Last Taken Unknown] sucralfate 1 gram tablet 1 g PO TID inflammation #90 tabs 04/13/22 [Rx Last Taken Unknown] Allergy/AdvReac Type Severity Reaction Status Date / Time adhesive tape Allergy Rash Verified 04/13/22 11:24 atropine sulfate Allergy Hives Verified 04/13/22 11:24 [From ] codeine phosphate Allergy breathing Verified 04/13/22 11:24 [From Tylenol-Codeine #3] problems divalproex sodium Allergy Unknown Verified 04/13/22 11:24 [From Depakote] hydromorphone HCl Allergy facial Verified 04/13/22 11:24 [From Dilaudid] blisters,itching hyoscyamine sulfate Allergy Hives Verified 04/13/22 11:24 [From ] Iodinated Contrast Media Allergy breathing Verified 04/13/22 11:24 [Iodinated Contrast Media - problems IV Dye] and my bp went up latex Allergy Rash Verified 04/13/22 11:24 pantoprazole sodium Allergy Rash Verified 04/13/22 11:24 [From Protonix] phenobarbital [From ] Allergy Hives Verified 04/13/22 11:24 promethazine HCl Allergy Anaphylaxis Verified 04/13/22 11:24 [From Phenergan] ramipril Allergy Unknown Verified 04/13/22 11:24 scopolamine hydrobromide Allergy Hives Verified 04/13/22 11:24 [From ] tramadol Allergy Itching Verified 04/13/22 11:24 ziprasidone mesylate Allergy Unknown Verified 04/13/22 11:24 [From Geodon] levofloxacin [From Levaquin] AdvReac Itching Verified 04/13/22 11:24 metoclopramide [From Reglan] AdvReac Other Verified 04/13/22 11:24 Sulfa (Sulfonamide AdvReac Vomiting Verified 04/13/22 11:24 Antibiotics) ziprasidone HCl [From Geodon] AdvReac tremors Verified 04/13/22 11:24 VIDODIN TUSS Allergy Itching Uncoded 04/13/22 11:24 Amlodipine AdvReac Vomiting Uncoded 04/13/22 11:24 Family History Sister Myocardial infarction Colon cancer Mother Hypertension Arthritis Brain aneurysm Heart disease High cholesterol Sister Colon cancer Heart disease High cholesterol Hypertension Arthritis Grandmother Arthritis Diabetes CVA (cerebral vascular accident) Father Heart disease High cholesterol Hypertension Surgical History bladder sling History of esophagogastroduodenoscopy (EGD) History of laparoscopic cholecystectomy History of uterine suspension procedure Hx of cholecystectomy Hx of colonoscopy left foot S/P carpal tunnel release Social History household members: none number of children: 4 current occupational status: unemployed history of recent travel: No Smoking Status: Current every day smoker tobacco type: cigarettes Tobacco: How many years used: 26 alcohol intake: never substance use type: does not use caffeine: Yes Type: coffee what type of physical activity do you participate in: none seatbelt use: never do you feel safe at home: Yes additional social history: single ROS ROS ED Constitutional Constitutional ED: Reports weight loss; Denies chills, fever(s), subjective or sweats ENT ENT ED: Denies ear pain, rhinorrhea or sore throat Cardiovascular Cardiovascular: Denies chest pain, orthopnea, palpitations or racing heartbeat Respiratory/Chest Respiratory/Chest: Denies cough, dyspnea, dyspnea on exertion or orthopnea Gastrointestinal Gastrointestinal: Reports abdominal pain, diarrhea, nausea and vomiting; Denies constipation or melena Genitourinary Genitourinary ED: Denies dysuria, hematuria or urinary frequency Musculoskeletal Musculoskeletal: Denies arthralgias, back pain, myalgias or neck pain Integumentary Denies abscess or Abrasions Neurologic Neurologic: Denies headache(s), paresthesias or weakness Psychiatric Psychiatric: Reports anxiety and depression Endocrine Endocrinology: Denies polydipsia, polyphagia or polyuria Hematologic/Lymphatic Hematologic/Lymphatic: Denies easy bleeding, easy bruising or lymphadenopathy Allergic/Immunologic Allergic/Immunologic ED: Denies mouth swelling, tongue swelling or urticaria EXAM Physical Exam Const Vital Signs: 04/13/22 11:21 Temperature 98 F Temperature Source Temporal Pulse Rate 110 H Respiratory Rate 18 Blood Pressure 163/91 H Blood Pressure Mean 115 Pulse Ox 99 Oxygen Delivery Method Room Air Positive well nourished, well developed and obese; Negative for cachectic, contractures or unkempt General Appearance ED: well developed and NAD; Negative for unkempt, cachectic, contractures or pallor Nutritional Appearance: obese; Negative for cachectic HEENT Reports TM's clear and dry mucous membranes HEENT Narrative: Ears normal. Nares patent. Uvula midline. There is no erythema or exudate. normocephalic and atraumatic Tympanic Membrane ED: Yes TM's clear Mouth ED: Yes dry mucous membranes Mouth: dry mucous membranes Eyes PERRL and EOMs intact bilaterally General Eye ED: Negative for pale conjunctiva or scleral icterus Neck no lymphadenopathy, supple and no JVD Resp normal respiratory effort and clear to auscultation bilaterally Cardio regular rate, regular rhythm, S1 normal heart sound, S2 normal heart sound and no murmurs GI non-tender, non-distended and no masses Back/Spine no CVA tenderness Cervical Spine: Negative for cervical spine tenderness Thoracic Spine / Upper Back: Negative for thoracic spinal tenderness Lumbar Spine / Lower Back: Negative for lumbar spinal tenderness Neuro CN's II-XII intact bilaterally, moves all extremities and no sensory deficits noted Sensorium / Orientation: alert Motor Exam: strength 5/5 throughout Psych thought process normal Appearance: Negative for unkempt Mood & Affect: depressed Skin no wounds General Skin Exam: Negative for jaundice or pallor Lesions: no lesions Rashes: no rashes MDM MDM MDM Narrative Medical decision making narrative: Patient abdominal exam is inconsistent. When asked if anything makes it better or worse and specifically car ride walking she stated no however when she coughed and asked if that hurt her response was yes she clinically appears dehydrated. In light of her recent admission symptoms will obtain CBC to assess white count and differential as well as H&H. Electrolyte panel was obtained to assess renal function and electrolytes, specifically hypokalemia. UA was obtained to assess specific gravity and to assess for ketones since she reports unable to eat anything. Reviewed Dr. Celestin's note from March 30. She had the patient wheelchair to the ER. She left because she apparently had to wait to be seen. Lab Data Attestation: I reviewed the patient's lab results. Lab results narrative: CBC is remarkable for elevated H&H of 16.4 and 48.9. Basic metabolic panels marked for creatinine of 1.29 which is elevated by approximately 0.5 from prior. Urine is negative with a normal specific gravity and no ketones in the urine. Suspect patient is getting some nutrition since she is not ketotic. Since aline pappas's had trouble with vomiting for quite some time with no determine etiology concern patient has cyclic vomiting. Will recommend follow-up at [facility] since they have been successful treating patients referred for cyclic vomiting. Furthermore, will have patient follow-up with her doctor in 3 to 5 days to have a repeat basic metabolic panel to assess creatinine. Of note BUN is normal and BUN to creatinine ratio is less than 10-1. Labs: Laboratory Results - last 24 hr 04/13/22 04/13/22 04/13/22 11:45 11:45 12:30 WBC 8.9 RBC 5.33 Hgb 16.4 H Hct 48.9 H MCV 91.7 MCH 30.8 MCHC 33.5 RDW Std Deviation 45.1 H RDW Coeff of [place] 13.3 Plt Count 258 MPV 10.2 Immature Gran % (Auto) 0.300 Neut % (Auto) 70.8 H Lymph % (Auto) 20.1 [place] % (Auto) 7.2 Eos % (Auto) 1.5 Baso % (Auto) 0.1 Absolute Neuts (auto) 6.3 Absolute Lymphs (auto) 1.78 Nucleated RBC % 0 Sodium 137 Potassium 3.9 Chloride 106 Carbon Dioxide 26.0 Anion Gap 5 BUN 10 Creatinine 1.21 H Estim Creat Clear Calc 43.76 Est GFR (MDRD) Af Amer 59 L Est GFR (MDRD) Non-Af 49 L BUN/Creatinine Ratio 8.3 L Glucose 111 H Calcium 9.6 Urine Color Straw Urine Clarity Clear Urine pH 6.5 Ur Specific [place] 1.010 Urine Protein Negative Urine Glucose (UA) Normal Urine Ketones Negative Urine Occult Blood Negative Urine Nitrite Negative Urine Bilirubin Negative Urine Urobilinogen Normal Ur Leukocyte Esterase Negative Discharge Plan Triage Chief Complaint: Abd Pain ED Provider: Arturo Duran Dx/Rx/DC Orders Clinical Impression: Abdominal pain, Diarrhea, Cyclic vomiting syndrome, Acute kidney insufficiency Instructions: ED Abdominal Pain Unkn Cause Fem, ED Renal Insufficiency Prescriptions: No Action nitroglycerin 0.4 mg tablet, sublingual 0.4 mg SUBLINGUAL PRN PRN (Reason: CHEST PAIN) Qty: 25 3RF esomeprazole magnesium 40 mg capsule,delayed release(DR/EC) 40 mg PO DAILY Qty: 90 3RF loperamide 2 mg capsule 2 mg PO Q4H PRN (Reason: loose stool) Qty: 10 0RF Rx Instructions: administer after each loose stool until symptoms controlled; do not exceed 8 mg per 24 hrs prochlorperazine maleate [Compazine] 5 mg tablet 5 mg PO BID PRN (Reason: nausea and vomiting) Qty: 20 0RF ondansetron 4 mg tablet,disintegrating 4 mg PO Q8H PRN (Reason: nausea and vomiting) Qty: 60 1RF omeprazole 40 mg capsule,delayed release(DR/EC) 40 mg PO DAILY prednisolone acetate 1 % drops,suspension 1 drp EACH EYE BID Label Comments: 1 drop in left eye twice a day lidocaine 5 % adhesive patch,medicated 1 patch topical DAILY PRN (Reason: Pain) Rx Instructions: leave on most painful area for up to 12 hrs atorvastatin 40 mg tablet 40 mg PO QHS Desenex 2 % powder 1 applic TOPICAL BID spironolactone 25 mg tablet 25 mg PO QHS levothyroxine 50 mcg tablet 50 mcg PO DAILY cholecalciferol (vitamin D3) 1,250 mcg (50,000 unit) capsule 50,000 unit PO FR azelastine 205.5 mcg (0.15 %) spray,non-aerosol 1 spray intranasal BID Rx Instructions: administer into each nostril melatonin 10 mg capsule 10 mg PO QHS albuterol sulfate 90 mcg/actuation HFA aerosol inhaler 2 puff inhalation Q4H PRN (Reason: shortness of breath or wheezing) Qty: 8.5 6RF Rx Instructions: administer with spacer aspirin 81 mg tablet,delayed release (DR/EC) 81 mg PO DAILY Qty: 90 1RF Rx Instructions: TAKE 1 TABLET BY MOUTH EACH AM AROUND 8 AM losartan 100 mg tablet 100 mg PO DAILY Qty: 90 1RF hydralazine 50 mg tablet 50 mg PO TID Qty: 270 3RF polyethylene glycol 3350 [Miralax] 17 gram/dose powder 17 g PO BID PRN (Reason: Constipation) Qty: 238 1RF furosemide 20 mg tablet 20 mg PO BID Qty: 90 1RF loratadine 10 mg tablet 10 mg PO DAILY Qty: 90 1RF Rx Instructions: TAKE 1 TABLET BY MOUTH EVERY DAY guaifenesin 1,200 mg tablet extended release 12hr 600 mg PO BID Qty: 60 1RF budesonide-formoterol [Symbicort] 160-4.5 mcg/actuation HFA aerosol inhaler 2 puff INHALATION BID Qty: 10.2 3RF montelukast [Singulair] 10 mg tablet 10 mg PO QHS Qty: 30 11RF nifedipine 60 mg tablet extended release 24hr 30 mg PO BID Qty: 30 11RF Rx Instructions: Hold for SBP less than 120 mmHg Spiriva Respimat 1.25 mcg/actuation mist 2 puff inhalation DAILY Qty: 4 6RF fluticasone propionate 50 mcg/actuation spray,suspension 1 spray NASAL BID Qty: 16 1RF Rx Instructions: USE 1 (ONE) SPRAY TWICE DAILY sucralfate 1 gram tablet 1 g PO TID Qty: 90 0RF Rx Instructions: take three times a day, one hour before meals on an empty stomach for thirty days. Primary Care Provider: Elizabeth Santamaria Referrals: Elizabeth Santamaria MD [Primary Care Provider] - 3-5 Days Behavioral,Health [facility] [GROUP OF PHYSICIANS] - 3-5 Days Activity Restrictions/Additional Instructions: You are referred to behavioral health since they have treated patient's with vomiting of unknown etiology. I suspect you have cyclic vomiting. Disposition Disposition: Home, Self Care
[2022-04-13 11:57] LABS: Absolute Lymphocyte Count 1.78 X10^3/uL (0.83-4.51); Absolute Neutrophil Count 6.3 X10^3/uL (2.0-7.7); Basophil# 0.01 X10^3/uL; Basophil% 0.1 % (0-1); Eosinophil# 0.13 X10^3/uL; Eosinophils% 1.5 % (0-5); Hematocrit 48.9 % (37-47); Hemoglobin 16.4 g/dL (12.0-15.0); Lymphocyte # 1.78 X10^3/ul (0.83-4.51); Lymphocyte % 20.1 % (19-41); Mean Corp Hgb Conc 33.5 g/dL (32-36); Mean Corpuscular Hgb 30.8 pg (27.0-32.0); Mean Corpuscular Volume 91.7 fL (81-99); Mean Platelet Vol. 10.2 fl (6.2-12.0); Monocyte# 0.64 X10^3/uL; Monocyte% 7.2 % (0-10); NRBC Flagged by Analyzer 0 % (0-5); Neutrophil # 6.27 X10^3/uL (2.7-7.7); Neutrophil % 70.8 % (47-70); Platelet Count 258 K/mm3 (150-450); RBC Distribution Width CV 13.3 % (11.6-14.6); RBC Distribution Width SD 45.1 fl (35.1-43.9); Red Blood Count 5.33 M/mm3 (4.2-5.4); White Blood Count 8.9 K/mm3 (4.4-11.0)
[2022-04-13] MEDS: 0.9% Normal Saline 1,000 ML 1000 ML IV (12:00)
[2022-04-13] MEDS: Ondansetron 4 MG/2 ML Vial IV (12:01)
[2022-04-13] MEDS: Dicyclomine 10 MG Capsule 20 MG PO (12:01)
[2022-04-13 12:12] LABS: Anion Gap 5 (5-15); BUN 10 mg/dL (7-18); BUN/Creat Ratio 8.3 RATIO (10-20); Calcium,Total 9.6 mg/dL (8.5-10.1); Chloride 106 mmol/L (98-107); Creatinine, Serum 1.21 mg/dL (0.55-1.02); EST Glomerular Filtration Rate 49 mL/min (>60); Est Glom Filt Rate - Afr Amer 59 mL/min (>60); Estimated Creatinine Clearance 43.76 ml/min; Glucose 111 mg/dL (74-106); Potassium 3.9 mmol/L (3.5-5.1); Sodium Level 137 mmol/L (136-145)
[2022-04-13 12:44] LABS: Bacteria 0 SEEN /hpf (None Seen); Mucous, Urine 0 SEEN /hpf (<or=2+); Red Blood Cells-Urine 0 SEEN /hpf (0-5); White Blood Cells 0 SEEN /hpf (0-5)
[2022-04-13 12:46] LABS: Color, Urine Straw (Yellow); Glucose, Dipstick Normal (Normal); Ketone-Dipstick Negative (Negative); Leukocyte Esterase-Dipstick Negative /ul (Negative); Nitrite-Dipstick Negative (Negative); Occult Blood-Urine Negative /ul (Negative); Protein-Dipstick Negative (Negative); Urine Bilirubin Dipstick Negative (Negative); Urine Clarity Clear (Clear); Urine Urobilinogen Normal (Normal); Urine pH 6.5 (5.0 - 8.0)
[2022-04-13 12:52] LABS: Squamous Epithelial Cells - UA 0-5 SEEN /hpf (5-10)
[2022-04-13 13:17] VITALS: PULSE 84
== END 2022-04-13 13:18 | disposition home or self-care (01) ==
PROVIDERS: Surgery; Emergency Provider Emergency Medicine; PCP Internal Medicine; Visit Provider Emergency Medicine
DX: R11.15 Cyclical vomiting syndrome unrelated to migraine (principal); F20.9 Schizophrenia, unspecified; J44.9 Chronic obstructive pulmonary disease, unspecified; I13.0 Hypertensive heart and chronic kidney disease with heart failure and stage 1 through stage 4 chronic kidney disease, or unspecified chronic kidney disease; I50.9 Heart failure, unspecified; F31.9 Bipolar disorder, unspecified; I73.9 Peripheral vascular disease, unspecified; I48.0 Paroxysmal atrial fibrillation; E66.01 Morbid (severe) obesity due to excess calories; Z68.41 Body mass index [BMI] 40.0-44.9, adult; G40.909 Epilepsy, unspecified, not intractable, without status epilepticus; N18.9 Chronic kidney disease, unspecified; Z87.19 Personal history of other diseases of the digestive system; K21.9 Gastro-esophageal reflux disease without esophagitis; E78.00 Pure hypercholesterolemia, unspecified; E03.9 Hypothyroidism, unspecified; I34.0 Nonrheumatic mitral (valve) insufficiency; G47.33 Obstructive sleep apnea (adult) (pediatric); Z86.711 Personal history of pulmonary embolism; Z86.73 Personal history of transient ischemic attack (TIA), and cerebral infarction without residual deficits; Z79.899 Other long term (current) drug therapy; Z79.82 Long term (current) use of aspirin; F17.210 Nicotine dependence, cigarettes, uncomplicated; R19.7 Diarrhea, unspecified; R10.9 Unspecified abdominal pain; G43.909 Migraine, unspecified, not intractable, without status migrainosus
CPT/HCPCS: 80048; 81001; 84134; 85025; 96361; 96374; 99283; J2405

== ENCOUNTER → 2022-04-18 | Outpatient (CLI) | payer MEDICAID, SELFPAY ==
--- NOTE | 2022-04-18 15:55 | CT_ITS ---
STUDY: CT ABDOMEN AND PELVIS WITHOUT CONTRAST REASON FOR EXAM: Female, 57 years old. abd pain -- if pt vomits contrast do WITHOUT pls per TR RADIATION DOSAGE (If Supplied By Facility): CTDIvol = ( 22.33 ) mGy, DLP = ( 1149.15 ) mGycm TECHNIQUE: Transaxial images were obtained from the dome of the diaphragm to the symphysis pubis with oral contrast, and without intravenous contrast. Sagittal and coronal images were reconstructed. Individualized dose optimization techniques were used for this CT. COMPARISON: 03/14/2022 FINDINGS: The visualized lung bases are unremarkable. The visualized portions of the heart are within normal limits. Normal liver. There are surgical clips in the gallbladder fossa consistent with a prior cholecystectomy. Normal spleen. Normal pancreas. Normal bilateral adrenal glands. Normal right kidney. Normal left kidney. There is a small hiatal hernia. Normal small intestine. Normal colon. The appendix is visualized and appears normal. Normal abdominal aorta. Normal inferior vena cava. Normal retroperitoneum. Normal urinary bladder. Normal abdominal wall. Normal osseous structures. CT/Abdomen/Pel W ORAL Cont Only IMPRESSION: No acute abnormality. Electronically Signed: Ilan Naqvi MD at 16:49 EDT ,
== END | disposition home or self-care (01) ==
LOC: CT 15:52
PROVIDERS: PCP Internal Medicine; Referring Provider Surgery; Visit Provider Surgery
DX: R10.9 Unspecified abdominal pain (principal); R11.0 Nausea
CPT/HCPCS: 74176

== ENCOUNTER 2022-05-10 09:00 | Outpatient (CLI) | payer MEDICAID, SELFPAY ==
[2022-05-10 12:03] LABS: Absolute Lymphocyte Count 1.37 X10^3/uL (0.83-4.51); Absolute Neutrophil Count 7.8 X10^3/uL (2.0-7.7); Basophil# 0.03 X10^3/uL; Basophil% 0.3 % (0-1); Hematocrit 47.9 % (37-47); Hemoglobin 16.2 g/dL (12.0-15.0); Lymphocyte # 1.37 X10^3/ul (0.83-4.51); Lymphocyte % 13.6 % (19-41); Mean Corp Hgb Conc 33.8 g/dL (32-36); Mean Corpuscular Hgb 31.6 pg (27.0-32.0); Mean Corpuscular Volume 93.4 fL (81-99); Mean Platelet Vol. 11.1 fl (6.2-12.0); Monocyte# 0.61 X10^3/uL; Monocyte% 6.1 % (0-10); NRBC Flagged by Analyzer 0 % (0-5); Neutrophil # 7.79 X10^3/uL (2.7-7.7); Neutrophil % 77.6 % (47-70); Platelet Count 282 K/mm3 (150-450); RBC Distribution Width CV 13.4 % (11.6-14.6); RBC Distribution Width SD 46.4 fl (35.1-43.9); Red Blood Count 5.13 M/mm3 (4.2-5.4)
[2022-05-10 12:29] LABS: Vitamin D,25 Hydroxy 81.6 ng/mL
[2022-05-10 12:37] LABS: ALB/GLOB Ratio 1.2 RATIO (0.9-2.4); AST(SGOT) 14 U/L (15-37); Alanine Aminotransfer ALT/SGPT 32 U/L (13-56); Albumin, Serum 4.1 g/dL (3.2-5.0); Alkaline Phosphatase 126 U/L (45-117); Anion Gap 9 (5-15); BUN 9 mg/dL (7-18); BUN/Creat Ratio 7.4 RATIO (10-20); CPK Total, Creatine Kinase 72 U/L (26-192); Calcium,Total 9.6 mg/dL (8.5-10.1); Chloride 104 mmol/L (98-107); Cholesterol 162 mg/dL (200); Creatinine, Serum 1.22 mg/dL (0.55-1.02); EST Glomerular Filtration Rate 48 mL/min (>60); Est Glom Filt Rate - Afr Amer 58 mL/min (>60); Globulin 3.4 g/dL (2.2-4.2); Glucose 121 mg/dL (74-106); High Density Lipoprotein 52 mg/dL; Potassium 3.8 mmol/L (3.5-5.1); Protein, Total 7.5 g/dL (6.4-8.2); Sodium Level 136 mmol/L (136-145); Thyroid Stim Hormone (TSH) 1.26 uIU/mL (0.358-3.74); Triglycerides 136 mg/dL; Very Low Density Lipoprotein 27 mg/dL (5-40)
== END 2022-05-10 23:59 | disposition home or self-care (01) ==
LOC: BIMLAB 09:01
PROVIDERS: PCP Internal Medicine; Referring Provider Internal Medicine; Visit Provider Internal Medicine
DX: I12.9 Hypertensive chronic kidney disease with stage 1 through stage 4 chronic kidney disease, or unspecified chronic kidney disease (principal); E55.9 Vitamin D deficiency, unspecified; E78.2 Mixed hyperlipidemia; N18.2 Chronic kidney disease, stage 2 (mild); E03.9 Hypothyroidism, unspecified
CPT/HCPCS: 36415; 80053; 80061; 82306; 82550; 84443; 85025

== ENCOUNTER 2022-05-17 10:00 | Outpatient (RCR) | payer MEDICAID, SELFPAY ==
--- NOTE | 2022-01-16 11:37 | HP.PTEVAL ---
Patient's Visit Information NIGHAT TIMMONS is a 56 year old F referred to Physical Therapy by Dr. Scarlet Navarro MD with a diagnosis of Weakness. Date of Evaluation: 01/16/22 Physical Therapist: Natalya Cook DPT - Visit Plan Frequency: 2x /Week Duration: 4 Weeks Plan: Focus on LE and core strength/stabilization- Gentle progression- pt is very nervous about movement- GAIT Belt. HEP Given IE: Seated HR/TR, marching, LAQ, hip adduction with ball - Subjective Patient reports that she is totally weak- what use to take her 10-15 min is now taking her 2 days. She has been vomiting's since March- she is almost back to a full meal now. She has inflammation in her joints but their is not really pain. She reports that she falls anytime that she turns at home. She has had two strokes that have effected her right side and feels that her right foot gets tripped up under her. She falls daily. She lays down most of her day- she can do a dish then she has to go back and lay down due to her dizziness. She lives alone- no stairs- she does not drive but does her own dressing and bathing. She is scared to take a shower- so she is sponge bathing- she has a shower chair but it tips so she does not feel safe. She does not leave her house- only for doctors appt. She has her groceries delivered. She has a walker but she is afraid to use- because when she fall she falls. She some exercises at home but she just feels exhausted (marching, toes up/down seated exercises). She is very afraid of walking and has a hard time standing. She reports that she passes out a lot due to poor blood flow. She had a tilt test done in 2018- severe osteohypotension. She reports more cramping in both of her legs left>right which never goes away. Goals for PT: get some muscle tone back, increase balance and increase muscular endurance. Eye doctor thinks she has sarcoidosis. PMHX/Meds: see list in chart - Objective Posture: FH, RS- can correct with verbal and tactile cues- does not maintain. Gait: ataxic- she is very methodical and cautious- she does not use AD- she tends to veer to the right. She requires rest breaks due to SOB and anxiety. Stairs: asc/desc non recip x 3 stair- significant fear. HR/TR: able with UE A. SLS: weight shift but unable to SLS without UE A due to weakness and fear. Sit to Stand: requires UE A. ROM: WFL in all planes. Balance: sitting: good Standing static: fair plus, Standing dynamic: poor. Strength: Ankle: 4-/5, Knee: 4/5, Hip flexion: 4-/5, add: 4+/5, Abd: 4/5, IR/ER: 4-/5, Core: poor - Balance/Special Test Scores Lower Extremity Functional Score: 13 TUG Test Time Seconds: 25 - Goals Goal 1:: Patient will be I with HEP and progression Goal Time Frame: 4-6 Weeks Goal 2:: Patient will ambulate >300 feet with a normalized gait pattern and no stopping with LRD Goal Time Frame: 4-6 Weeks Goal 3:: Patient will asc/desc 4 stairs with 2 HR and recip pattern Goal Time Frame: 4-6 Weeks Goal 4:: Patient will perform a TUG test in less than 10 seconds Goal Time Frame: 4-6 Weeks - Rehabilitation Potential Physical Therapy Diagnosis: Patient presents with hypomobility- she has decreased LE and core strength/stabilization, flex, proprioception and muscular endurance leading to abnormal gait and decreased ability to perform ADL's. Rehabilitation Potential: Fair - Anticipated Interventions Patient/Client Instruction: Educate patient on: Benefits of Fitness Program Therapeutic Exercise to Include: Strength training, Endurance training, Balance training, Coordination, Agility training, Body mechanics, Postural training, Flexibilty training, Gait and locomotor training, Neuromotor development, Dynamic Lumbar Stabilization, Scapular Strength/Stabilization For the Purpose of:: To improve muscle performance and motor function Thank you for the opportunity to evaluate your patient. For Medicare and Medicare HMO plans, please review the plan of care and approve it. It will need to be FAXED BACK to us at [phone] for Medicare purposes. For Medicare only, by signing this I certify the plan of care. Please let me know if there are questions or concerns regarding this plan of care. Physician Signature: Date:
--- NOTE | 2022-02-16 13:48 | HP.PTREVAL ---
Dr. Scarlet Navarro MD, It has been my pleasure to treat NIGHAT TIMMONS over the last 7 visits for Weakness. Please see the progress note below for an update on the physical therapy plan of care! Subjective: She is having a really bad MACK today. She doesn't feel that she is going to fall as soon as she stands up anymore. She feels safer walking around her home. She got the rollator yesterday and is using it and really likes it. She plans to try to get out and walk around her complex. She doesn't remember if she has had any falls. Objective/Function: Posture: FH, RS- can correct with verbal and tactile cues- does not maintain. Gait: improved with rollator- she is able to ambulate 300 feet without stopping or concerns for safety. Stairs: asc/desc non recip x 8 stair- moderate fear. HR/TR: able with UE A. SLS: weight shift but unable to SLS without UE A. Sit to Stand: can perform without UE A . ROM: WFL in all planes. Balance: sitting: good Standing static: fair plus, Standing dynamic: fair. Strength: Ankle: 4/5, Knee: 4+/5, Hip flexion: 4/5, add: 4+/5, Abd: 4/5, IR/ER: 4-/5, Core: fair Plan Plan: 02/16/22: Continue. Focus on LE and core strength/stabilization. Gentle progression. Pt is very nervous about movement - GAIT Belt Balance/Gait/Functional tests - Balance/Special Test Scores Lower Extremity Functional Score: 9 TUG Test Time Seconds: 45 Tug Test: >30sec.=impaired mobility Goals Goal 1:: Patient will be I with HEP and progression Goal Time Frame: 4-6 Weeks Goal Progress: Progressing Goal 2:: Patient will ambulate >300 feet with a normalized gait pattern and no stopping with LRD Goal Time Frame: 4-6 Weeks Goal Progress: Goal Met Goal 3:: Patient will asc/desc 4 stairs with 2 HR and recip pattern Goal Time Frame: 4-6 Weeks Goal Progress: Progressing Goal 4:: Patient will perform a TUG test in less than 10 seconds Goal Time Frame: 4-6 Weeks Goal Progress: Progressing Anticipated Interventions Patient/Client Instruction: Educate patient on: Benefits of Fitness Program Therapeutic Exercise to Include: Strength training, Endurance training, Balance training, Coordination, Agility training, Body mechanics, Postural training, Flexibilty training, Gait and locomotor training, Neuromotor development, Dynamic Lumbar Stabilization, Scapular Strength/Stabilization For the Purpose of:: To improve muscle performance and motor function Please do not hesitate to contact me at [phone] by phone or if you have questions or concerns regarding this new plan of care! Sincerely, HARI BobT
--- NOTE | 2022-03-20 18:05 | HP.SP.EV_ITS ---
History - History Date of Eval: 03/20/22 Previous speech therapy: Yes Results: See below. Other Relevant Medical History/Diagnoses/Surgery: Soumya Owens is a 57-year-old female presenting to [facility] on 03/20/22 for a speech therapy evaluation following concerns of Vocal Cord Dysfunction dx. Pt is a current PT patient. She was recently hospitalized for double PNA (d/c on Sunday, 03/18) and has an extensive PMH including bipolar disorder, schizoaffective disorder, asthma, cancer, COPD, GERD, CKD, difficulty chewing, CHF, IBS, HTN, injury of the head/neck, seizures, and CVA (SEE EMR for full list of PMH). During this admission, this HOSPITAL SECURITY OFFICER treated Pt and discussed concerns for VCD as well as her dysphagia. Pt reporting her throat will close up even when she is just sitting still. The patient had recent hospitalization at [facility] on with shortness of breath and productive cough with green sputum. Chest x-ray obtained in the ED demonstrated patchy bibasilar infiltrate more prominent at the right lung base. She was seen by speech therapy and recommended for minced and moist textures / thin liquids with distant supervision. She has a history of oropharyngeal dysphagia. The patient has participated in two MBS studies at [facility] since 2018. The first MBS study on 07/19/2020 revealed mild oropharyngeal phase dysphagia and recommended Mechanical Soft Textures, Thin Liquids. The patient returned to [facility] ED on 03/13/2022 with abdominal pain. She also reported nausea and vomiting on day of admission. In addition, CT of abdomen revealed increased markings at the lung bases more pronounced on the left side suggestive of a bibasilar a telectasis and/or infiltrates. She participated in a follow-up MBSS on 03/17/22, rx Minced and Moist solids with NTL, FFWP, as well as rx for a GI consult d/t CP bar and severe esophageal retention (SEE REPORT BELOW). Per Dr. Porter?s, Director Trading, report: ?Today, the patient reports ongoing exertional dyspnea, occasional wheezing and pleuritic type pain. She has remained compliant with her maintenance inhaler regimen. She does report that she has been using her rescue inhaler 4 times per day. However, she does not endorse any symptom relief with the use of her rescue inhaler. She does report frequent episodes of anxiety leading to increased work of breathing and a sensation as if she is breathing through a straw. She does continue to smoke cigarettes daily. The patient has a self-reported history of asthma. Her most recent pulmonary function studies did not show evidence of obstructive lung disease, but rather demonstrated stigmata of small airways disease with significant bronchodilator response. In addition, she reports frequent episodes of anxiety leading to increased work of breathing and symptoms concerning for vocal cord dysfunction. Accordingly, she will be referred to speech therapy for potential laryngeal control therapy.?. Pt with history of seeing an ENT, however not since ~2014. When seeing Pt on Sunday, recommended Pt to see ENT, she reports having an ap pt tomorrow, 03/21/22. 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 Smoking Status: Current every day smoker Hx Smoking: Yes Hx Tobacco Use: Yes Hx Smoking Exposure: Yes - Pain Is pain an issue with your current prescribed condition?: No Patient Allergies - Allergies Allergies adhesive tape Allergy (Verified 03/13/22 20:19) Rash atropine sulfate [From ] Allergy (Verified 03/13/22 20:19) Hives codeine phosphate [From Tylenol-Codeine #3] Allergy (Verified 03/13/22 20:19) breathing problems divalproex sodium [From Depakote] Allergy (Verified 03/13/22 20:19) Unknown hydromorphone HCl [From Dilaudid] Allergy (Verified 03/13/22 20:19) facial blisters,itching hyoscyamine sulfate [From ] Allergy (Verified 03/13/22 20:19) Hives Iodinated Contrast Media [Iodinated Contrast Media - IV Dye] Allergy (Verified 03/14/22 11:31) breathing problems and my bp went up reaction is to IV contrast; no problems with oral contrast latex Allergy (Verified 03/13/22 20:19) Rash pantoprazole sodium [From Protonix] Allergy (Verified 03/13/22 20:19) Rash phenobarbital [From ] Allergy (Verified 03/13/22 20:19) Hives promethazine HCl [From Phenergan] Allergy (Verified 03/13/22 20:19) Anaphylaxis ramipril Allergy (Verified 03/13/22 20:19) Unknown scopolamine hydrobromide [From ] Allergy (Verified 03/13/22 20:19) Hives tramadol Allergy (Verified 03/13/22 20:19) Itching ziprasidone mesylate [From Geodon] Allergy (Verified 03/13/22 20:19) Unknown levofloxacin [From Levaquin] Adverse Reaction (Verified 03/13/22 20:24) Itching metoclopramide [From Reglan] Adverse Reaction (Verified 03/13/22 20:23) Other Sulfa (Sulfonamide Antibiotics) Adverse Reaction (Verified 03/13/22 20:19) Vomiting ziprasidone HCl [From Geodon] Adverse Reaction (Verified 03/13/22 20:19) tremors VIDODIN TUSS Allergy (Uncoded 03/13/22 20:19) Itching Amlodipine Adverse Reaction (Uncoded 03/13/22 20:19) Vomiting Subjective Voice - Informal Questioner Do you scream (anger, sporting event, work, noisy envirmonment): None Do you raise your voice (e.g. parenting, calling from room to room, etc.): None Do you talk for long periods of time without a break (teacher, frausto): More than average Are you a talker: More than average Do you clear your throat: More than average Do you cough: More than average Do you sing: None How often do you use the telephone: Less than average Do you do impersonations, character voices or unusual sound effects: None - Intubation Was the Client intubated: Yes If yes, list date, duration, and explanation: Early - Intake Water (ounces): 20 Coffee (ounces): 12 Soda (ounces): 16 - Alcoholic Beverage Intake Intake: Never Objective Voice - Observational Assessment Pitch Range in octaves: 0.5 octave Maximum Phonation Time in seconds: 3.25 S/Z Ratio: 2 Sustained /s/: 2 Sustained /z/: 0 Ratio: 2 Greater than 1:4 (indicates dysfunction): Yes CAPE-V - CAPE-V CAPE-V Administered: Yes Date: 03/20/22 - Overall Severity Overall Severity (n/100): 70 Frequency: Consistent - Roughness Roughness (n/100): 65 Frequency: Consistent - Breathiness Breathiness (n/100): 0 Frequency: Consistent - Strain Strain (n/100): 72 Frequency: Intermittent - Pitch Pitch (n/100): 55 Frequency: Consistent - Loudness Loudness (n/100): 37 Frequency: Intermittent - Comments CAPE-V Purpose -: The Consensus Auditory-Perceptual Evaluation of Voice (CAPE-V) was developed as a tool for clinical auditory-perceptual assessment of voice. Its primary purpose is to describe the subjective severity of auditory-perceptual attributes of a voice problem, in a way that can be communicated among clinicians. Its secondary purpose is to contribute to hypotheses regarding the anatomic and physiological bases of voice problems and to evaluate the need for additional testing. In terms of severity, Pt is considered MILD between 0-40, MODERATE 40- 75, and SEVERE >75. NQOL Other - Other Qualitative Observations -: During s/z ratio task, Pt was unable to sustain phonation or phonate at all for Z, despite multiple attempts. Pt reports following this task her voice hurt significantly more than it did prior to attempting and it felt like her vocal folds were shaking. Pt also reporting tightness/tension in her neck following this task attempt. Plan - Plan Plan: Will recommend Pt for skilled outpatient speech therapy to address deficits in vocal function and dysphagia characterized by suspected vocal cord dysfunction and mild oropharyngeal dysphagia. Pt would benefit from training in identifying instances of vocal abuse, providing vocal hygiene solutions, training in diaphragmatic breathing, relaxation techniques, direct education re: vocal health, as well as education re: thickening liquid, oral hygiene, and oropharyngeal strengthening exercises. Without skilled speech therapy Pt is at risk for pulmonary distress in a variety of social situations. - Recommendations Treatment Warranted: Dysphagia, Voice Comment: Rx referral to ENT to objectively assess vocal fold function to determine vocal pathology given performance during today's evaluation. - Progress Prognosis: Good - Frequency Frequency: 1x/Week Duration: 6 Weeks Visits in this POC: 6 - Goal #1-5 Goal #1: Soumya will establish volitional control of respiration evidenced by utilization of diaphragmatic breathing to sustain ah for 10-15 seconds within 4 weeks with 100% accuracy independently. Goal #2: Soumya will complete a weekly log dictating instances of vocal cord dysfunction including time of day, activity, and stress level. Goal #3: Soumya will demonstrate relaxation techniques with greater than 90% acc independently. Goal #4: Soumya will complete oropharyngeal exercises for 10 reps, 3x/day independently to improve bolus manipulation, tongue base retraction, PES opening/distention, and hyolaryngeal elevation and excursion. Education - Patient has Indicated that the Following Identified Educational Needs: None The Patient has indicated that they have no educational or learning abilities that may effect their care.: Yes - Patient Instruction Patient Education: Diagnosis, Treatment Plan, Goals Person Taught: Patient Teaching Method: Discussion, Demonstration, Handout Response to teaching: Return demonstration, Verbalize understanding, Reinforcement needed
--- NOTE | 2022-05-17 10:56 | HP.SP.DC_ITS ---
ST Discharge Summary - Discharged: Discharge: NIGHAT TIMMONS is a 57 year old female who was seen for initial voice and dysphagia evaluation at [facility] on 03/20/22 secondary to dx of Mild Oropharyngeal Dysphagia and suspected vocal cord dysfunction. Pt attended 5 additional sessions following the evaluation to target relaxation techniques, breath support for sustained phonation, keeping a weekly log of VCD occurrences, oropharyngeal strengthening exercises, and diaphragmatic breathing instruction. Per informed consent, Pt declining implementation of recommended altered diet from her recent Modified Barium Swallow Study completed on 03/17/22, rx Minced and Moist solids with NTL, FFWP, as well as rx for a GI consult d/t CP bar and severe esophageal retention. Pt continues to consume thin liquids and easy to chew solids. As of today, Pt's medical status changing to congested cough. Education provided she may have recurrent PNA potentially caused by aspiration. Pt reporting she will monitor. Pt being discharged from speech therapy caseload on this date, 05/17/22, secondary to meeting all goals associated with her POC. Thank you for allowing me to participate the care of your Pt. Will reevaluate at Pt?s request following script from physician.
== END 2022-05-17 12:35 | disposition home or self-care (01) ==
LOC: SP 10:00
PROVIDERS: PCP Internal Medicine; Referring Provider Internal Medicine; Visit Provider Internal Medicine
DX: R53.81 Other malaise (principal); J38.3 Other diseases of vocal cords
CPT/HCPCS: 92507; 92524; 92526; 92610; 97110; 97162; 97164; 97530

== ENCOUNTER 2022-05-22 08:09 | Outpatient (RCR) | payer MEDICAID, SELFPAY | END 2022-06-14 23:59 | LOC: NS 08:09 | PROVIDERS: PCP Internal Medicine; Referring Provider Internal Medicine; Visit Provider Internal Medicine | DX: Z71.3 Dietary counseling and surveillance (principal); E66.01 Morbid (severe) obesity due to excess calories | CPT/HCPCS: 97803 ==

== ENCOUNTER → 2022-06-02 | Outpatient (CLI) | payer MEDICAID, SELFPAY ==
--- NOTE | 2022-06-02 07:30 | BI_ITS ---
MAMMOGRAPHY - BILATERAL SCREENING REASON FOR EXAM: Female, 57 years old. Routine annual screening examination. PERTINENT HISTORY: Non-contributory. TECHNIQUE: Digital bilateral breast july (3D mammographic acquisition) in the CC and MLO projections. 2-D mediolateral oblique (MLO) and craniocaudad (CC) views of both breasts were obtained. CAD: Full Field Digital Mammography with Computer Added Detection was performed. COMPARISON: Comparison is made with prior study 05/18/2021 at FINDINGS: Breast Composition: The breasts are almost entirely fatty. There are no dominant masses or suspicious calcifications. Stable benign-appearing bilateral axillary lymph nodes. No other significant abnormalities are identified. There has been no significant change since the prior study. BI/SCRN MAMM (CAD)W/JULY BILAT IMPRESSION: Stable bilateral screening mammogram. Yearly follow-up mammogram recommended. (A) ASSESSMENT CATEGORY: BIRADS Category 2: Benign. A letter regarding these results will be sent to the patient by the facility within 30 days. Approximately 10% of breast cancers are not detected by mammography. A normal mammogram should not delay biopsy of a clinically suspicious abnormality. [id number] Electronically Signed: Patrick Keita MD at 9:17 EDT ,
== END | disposition home or self-care (01) ==
LOC: OPBI 07:29
PROVIDERS: PCP Internal Medicine; Visit Provider Internal Medicine
DX: Z12.31 Encounter for screening mammogram for malignant neoplasm of breast (principal)
CPT/HCPCS: 77063; 77067

== ENCOUNTER 2022-06-08 13:13 | Emergency (ER) | payer MEDICAID, SELFPAY ==
[2022-06-08 13:14] VITALS: BP 128/93; PULSE 115; RESP 24; TEMP 36.7; O2SAT 97; BMI 43.9
[2022-06-08 13:28] VITALS: BP 145/87; PULSE 115; RESP 24; O2SAT 97
--- NOTE | 2022-06-08 13:31 | EKG12_ITS ---
Test Reason : CP Blood Pressure : / mmHG Vent. Rate : 114 BPM Atrial Rate : 114 BPM P-R Int : 162 ms QRS Dur : 074 ms QT Int : 308 ms P-R-T Axes : 044 -13 025 degrees QTc Int : 424 ms Sinus tachycardia Otherwise normal ECG Confirmed by MILO SPEARS, MELLISSA ([id number]), writer editor ANAND HSIEH ([id number]) on 06/12/2022 9:28:12 AM Referred By: ALLY Confirmed By:MADHAVI PEDRAZA MD
--- NOTE | 2022-06-08 13:36 | EDS_ITS ---
HPI History of Present Illness Chief Complaint: Shortness of Breath Detail of Chief Complaint: Shortness of breath that started 1 to 2 days ago and chest pain that starte Informant: patient Onset/Context/Timing Onset: - (Documented HPI narrative) Context: sudden Timing: Continuous and Waxes and wanes Quality: Positive for Dyspnea on exertion and Orthopnea (Chronic orthopnea); Ne gative for PND or Wheezing Current Severity: Mild Maximum Severity: Severe Worsened by: Exertion, Lying flat and Coughing Relieved by: Nothing Associated Symptoms cough and other; Negative for rhinorrhea, post nasal drip, ear pain, fever, sore throat, subjective, chills, sweats, clear sputum, white sputum, yellow sputum or green sputum Chest Pain: Positive for Continuous and Pressure Narrative Narrative: Patient is a 57-year-old woman with history of pulmonary embolus, COPD with bronchospasm, pulmonary embolus chronic kidney disease morbid obesity venous insufficiency, GERD and rheumatic valvular heart disease. She presents with shortness of breath that started a couple days ago. She states at around 1230 she developed pressure sensation in her chest. There is no alleviating, exa cerbating precipitating factors. Patient reports she is coughing up pink sputum. She does have a history of pulmonary embolus in 2018. She also complains of left leg pain. Has not noted any discoloration or swelling. She denies black or maroon-colored stool. She denies urologic symptoms. She denies abdominal pain. PE Risk Factors: Positive for Prior DVT or PE and Recent immobilization; Negative for Cancer, OCP + Smoking + > 35, Recent surgery or Recent travel Prior similar symptoms: Yes (COPD) Recent Illness/Hospitalization: No PFSH PFSH Medical History Abdominal pain Allergic rhinitis Aortic valve insufficiency Arthralgia of right hip Arthritis Asthma Back pain Bilateral flank pain Bilateral foot pain Bipolar 1 disorder Blackout Bladder disease Cancer Cardiology follow-up encounter Chest pain CKD (chronic kidney disease) Colitis Conversion disorder with abnormal movement Convulsion, non-epileptic COPD, mild CPAP (continuous positive airway pressure) dependence Cyclic vomiting syndrome Cyst Debility Depression Diarrhea Dietary restriction Difficulty chewing Dysuria Easy bruising Enlarged aorta Excessive bleeding Gastric reflux Gastritis Heart failure High cholesterol Hip dislocation, right History of abnormal cervical Pap smear History of atrial fibrillation History of CHF (congestive heart failure) History of echocardiogram History of edema History of hiatal hernia History of IBS History of stress test History of ulceration HTN (hypertension) Hx of tilt table evaluation Hypertensive crisis without congestive heart failure Hypokalemia Hyponatremia Hypothyroidism Injury of head and neck Intertriginous dermatitis associated with moisture Kidney disease Left arm swelling Leg cramps Marijuana use Migraines Morbid obesity Myositis Nausea and vomiting Non-convulsive status epilepticus Non-rheumatic mitral regurgitation Nonrheumatic aortic (valve) insufficiency Open wound Oral candidiasis Orthostatic hypotension DAPHNE (obstructive sleep apnea) Osteoarthritis Osteoarthritis of right hip PAF (paroxysmal atrial fibrillation) Pain of left calf Peripheral artery disease Post-menopausal Psychosis Pulmonary embolism Sarcoidosis Schizo NEC, chrn/exacerb Schizophrenia Seizures Shortness of breath on exertion Smoker Stroke Stroke/cerebrovascular accident Syncope Thyroid disease TIA (transient ischemic attack) Tobacco abuse Venous insufficiency of both lower extremities Walker as ambulation aid Wears dentures Home Medications nitroglycerin 0.4 mg sublingual tablet 0.4 mg sublingual PRN PRN CHEST PAIN #25 tabs 12/05/21 [Rx Last Taken Unknown] hydralazine 50 mg tablet 50 mg PO TID blood pressure #270 tabs 12/19/21 [Rx Last Taken 03/13/22 22:18] lidocaine 5 % topical patch 1 patch topical DAILY PRN Pain 12/26/21 [History Last Taken 03/11/22] polyethylene glycol 3350 17 gram/dose oral powder (Miralax) 17 g PO BID PRN Constipation #238 grams 12/26/21 [Rx Last Taken 03/13/22 22:20] loratadine 10 mg tablet 10 mg PO DAILY allergies #90 tabs 02/14/22 [Rx Last Taken 03/13/22] atorvastatin 40 mg tablet 40 mg PO QHS cholesterol 02/27/22 [History Last Taken 03/13/22] azelastine 205.5 mcg (0.15 %) nasal spray 1 spray intranasal BID allergies 02/27/22 [History Last Taken 03/13/22] levothyroxine 50 mcg tablet 50 mcg PO DAILY thyroid 02/27/22 [History Last Taken 03/13/22 22:18] melatonin 10 mg capsule 10 mg PO QHS insomnia 02/27/22 [History Last Taken 03/13/22] miconazole nitrate 2 % topical powder (Desenex) 1 applic topical BID rash 02/27/22 [History Last Taken 03/10/22] spironolactone 25 mg tablet 25 mg PO QHS bp 02/27/22 [History Last Taken 03/13/22 22:21] prednisolone acetate 1 % eye drops,suspension 1 drp EACH EYE BID Inflammation 03/09/22 [History Last Taken 03/13/22 22:20] budesonide-formoterol HFA 160 mcg-4.5 mcg/actuation aerosol inhaler (Symbicort) 2 puff inhalation BID wheezing #10.2 grams 03/17/22 [Rx Last Taken Unknown] montelukast 10 mg tablet (Singulair) 10 mg PO QHS allergies #30 tabs 03/17/22 [Rx Last Taken Unknown] nifedipine 60 mg tablet,extended release 24 hr 30 mg PO BID bp #30 tabs 03/17/22 [Rx Last Taken Unknown] ondansetron 4 mg disintegrating tablet 4 mg PO Q8H PRN nausea and vomiting #60 tabs 03/23/22 [Rx Last Taken Unknown] prochlorperazine maleate 5 mg tablet (Compazine) 5 mg PO BID PRN nausea and vomiting #20 tabs 03/23/22 [Rx Last Taken Unknown] esomeprazole magnesium 40 mg capsule,delayed release 40 mg PO DAILY #90 caps 03/30/22 [Rx Last Taken Unknown] tiotropium bromide 1.25 mcg/actuation mist for inhalation (Spiriva Respimat) 2 puff inhalation DAILY breathing #4 grams 04/10/22 [Rx Last Taken Unknown] albuterol sulfate 90 mcg/actuation aerosol inhaler 2 puff inhalation Q4H PRN shortness of breath or wheezing #8.5 grams 05/09/22 [Rx Last Taken Unknown] guaifenesin 1,200 mg tablet, extended release 12 hr 600 mg PO BID allergies #60 tabs 05/15/22 [Rx Last Taken Unknown] fluticasone propionate 50 mcg/actuation nasal spray,suspension See Rx Instructions .Route .COMPLEX #16 grams 05/23/22 [Rx Last Taken Unknown] azithromycin 250 mg tablet See Rx Instructions PO .COMPLEX #6 tabs 06/07/22 [Rx Last Taken Unknown] ipratropium 0.5 mg-albuterol 3 mg (2.5 mg base)/3 mL nebulization soln 3 ml inhalation Q4H PRN PRN SOB &/OR WHEEZING #180 mL 06/07/22 [Rx Last Taken Unknown] nicotine (polacrilex) 4 mg buccal mini lozenge 4 mg buccal Q6H PRN nicotine cravings #81 ea 06/07/22 [Rx Last Taken Unknown] nystatin 100,000 unit/mL oral suspension 5 ml mucous membrane TID #250 mL 06/07/22 [Rx Last Taken Unknown] prednisone 20 mg tablet 60 mg PO QDAY #15 tabs 06/07/22 [Rx Last Taken Unknown] aspirin 81 mg tablet,delayed release 81 mg PO DAILY heart health #90 tabs 06/08/22 [Rx Last Taken Unknown] furosemide 20 mg tablet 20 mg PO BID edema #180 tabs 06/08/22 [Rx Last Taken Unknown] losartan 100 mg tablet 100 mg PO DAILY bp #90 tabs 06/08/22 [Rx Last Taken Unknown] Allergy/AdvReac Type Severity Reaction Status Date / Time adhesive tape Allergy Rash Verified 06/08/22 13:14 atropine sulfate Allergy Hives Verified 06/08/22 13:14 [From ] codeine phosphate Allergy breathing Verified 06/08/22 13:14 [From Tylenol-Codeine #3] problems divalproex sodium Allergy Unknown Verified 06/08/22 13:14 [From Depakote] guaifenesin Allergy Itching Verified 06/08/22 13:14 hydrocodone Allergy Itching Verified 06/08/22 13:14 hydromorphone HCl Allergy facial Verified 06/08/22 13:14 [From Dilaudid] blisters,itching hyoscyamine sulfate Allergy Hives Verified 06/08/22 13:14 [From ] Iodinated Contrast Media Allergy breathing Verified 06/08/22 13:14 [Iodinated Contrast Media - problems IV Dye] and my bp went up latex Allergy Rash Verified 06/08/22 13:14 pantoprazole sodium Allergy Rash Verified 06/08/22 13:14 [From Protonix] phenobarbital [From ] Allergy Hives Verified 06/08/22 13:14 promethazine HCl Allergy Anaphylaxis Verified 06/08/22 13:14 [From Phenergan] ramipril Allergy Unknown Verified 06/08/22 13:14 scopolamine hydrobromide Allergy Hives Verified 06/08/22 13:14 [From ] tramadol Allergy Itching Verified 06/08/22 13:14 ziprasidone mesylate Allergy Unknown Verified 06/08/22 13:14 [From Geodon] amlodipine AdvReac Vomiting Verified 06/08/22 13:14 levofloxacin [From Levaquin] AdvReac Itching Verified 06/08/22 13:14 metoclopramide [From Reglan] AdvReac Other Verified 06/08/22 13:14 Sulfa (Sulfonamide AdvReac Vomiting Verified 06/08/22 13:14 Antibiotics) ziprasidone HCl [From Geodon] AdvReac tremors Verified 06/08/22 13:14 Family History Sister Myocardial infarction Colon cancer Mother Hypertension Arthritis Brain aneurysm Heart disease High cholesterol Sister Colon cancer Heart disease High cholesterol Hypertension Arthritis Grandmother Arthritis Diabetes CVA (cerebral vascular accident) Father Heart disease High cholesterol Hypertension Surgical History bladder sling Cataract extraction status History of esophagogastroduodenoscopy (EGD) History of laparoscopic cholecystectomy History of uterine suspension procedure Hx of colonoscopy left foot S/P carpal tunnel release Social History household members: none number of children: 4 current occupational status: unemployed history of recent travel: No Smoking Status: Current every day smoker tobacco type: cigarettes Tobacco: How many years used: 26 Electronic Cigarette Use: not used alcohol intake: never substance use type: does not use caffeine: Yes Type: coffee what type of physical activity do you participate in: none seatbelt use: never do you feel safe at home: Yes additional social history: single ROS ROS ED Constitutional Constitutional ED: Reports chills; Denies fever(s), sweats, weight loss or other Eyes Eyes: Denies blurry vision, change in vision or diplopia ENT ENT ED: Denies ear pain, rhinorrhea or sore throat Cardiovascular Cardiovascular: Reports chest pain and orthopnea; Denies palpitations, parox ysmal nocturnal dyspnea or racing heartbeat Respiratory/Chest Respiratory/Chest: Reports cough, dyspnea, dyspnea on exertion, orthopnea and sputum; Denies paroxysmal nocturnal dyspnea Gastrointestinal Gastrointestinal: Denies abdominal pain, constipation, diarrhea, melena, nausea or vomiting Genitourinary Genitourinary ED: Denies dysuria, hematuria or urinary frequency Musculoskeletal Musculoskeletal: Denies arthralgias, back pain, myalgias or neck pain Integumentary Denies abscess, Abrasions or rash Neurologic Neurologic: Denies headache(s), paresthesias or weakness Psychiatric Psychiatric: Denies anxiety or depression Hematologic/Lymphatic Hematologic/Lymphatic: Denies easy bleeding, easy bruising or lymphadenopathy EXAM Physical Exam Const Vital Signs: 06/08/22 13:14 06/08/22 13:28 06/08/22 13:38 Temperature 98.0 F Temperature Source Oral Pulse Rate 115 H 115 H Respiratory Rate 24 H 24 H Respiratory Effort Short of Breath Respiratory Pattern Tachypnea Blood Pressure 128/93 H 145/87 H Blood Pressure Mean 104 106 Pulse Ox 97 97 Oxygen Delivery Method Room Air Room Air 06/08/22 14:17 06/08/22 15:15 Temperature 98.4 F Temperature Source Oral Pulse Rate 84 84 Respiratory Rate 16 16 Respiratory Effort Respiratory Pattern Blood Pressure 140/78 H 140/78 H Blood Pressure Mean 98 98 Pulse Ox 97 96 Oxygen Delivery Method Room Air Room Air Positive well nourished, well developed and obese; Negative for cachectic, contractures or unkempt Constitutional Narrative: Patient is tachypneic with mild use of accessory muscles. General Appearance ED: well developed; Negative for unkempt, cachectic, contractures, NAD or pallor Nutritional Appearance: obese; Negative for cachectic HEENT Reports moist mucous membranes HEENT Narrative: Normocephalic. Ears normal. Nares patent. Poor dentition. Moist mucosa. Uvula midline. No erythema or exudate. No angioedema. atraumatic Eyes PERRL and EOMs intact bilaterally General Eye ED: Negative for pale conjunctiva or scleral icterus Neck no lymphadenopathy, supple, no meningeal signs and no JVD Neck Narrative: Trachea is midline. There is no in-store extra stridor. There is no carotid bruit Resp No normal respiratory effort and clear to auscultation bilaterally Effort and Inspection: Negative for pain with movement Auscultation: Negative for diminished lung sounds Cardio regular rhythm, S1 normal heart sound, S2 normal heart sound and no murmurs Rate: tachycardic GI non-tender Auscultation: hypoactive bowel sounds Palpation: Negative for hepatomegaly or splenomegaly Back/Spine no CVA tenderness Neuro oriented x3, CN's II-XII intact bilaterally and no sensory deficits noted Jaylon Coma Scale: document GCS findings Spontaneous Obeys Commands Oriented 15 Sensorium / Orientation: alert Speech: speech normal Psych Appearance: Negative for unkempt Skin no wounds and skin turgor normal General Skin Exam: Negative for jaundice or pallor Lesions: no lesions Rashes: no rashes MDM MDM MDM Narrative Medical decision making narrative: Differential diagnosis is pneumonia, congestive heart failure, pulmonary embolus and atypical presentation for cardiac ischemia. Will obtain EKG, chest x-ray and appropriate blood work. D-dimer is elevated; however, when corrected for age is normal. ABG is unremarkable. Patient was informed of her test results and informed that the cause of her shortness of breath is unknown. Since her first and second troponin for less than 7 negative predictive value to 100% for coronary disease. Patient was made aware of this. Her creatinine is slightly higher than normal. D-dimer was elevated however is normal when corrected for age. Therefore CTA of the chest was not ordered. Reviewing prior records indicates patient has vocal cord dysfunction. This could be the cause of her shortness of breath. Lab Data Attestation: I reviewed the patient's lab results. Labs: Laboratory Results - last 24 hr 06/08/22 06/08/22 06/08/22 13:46 13:46 13:46 WBC 14.8 H RBC 5.39 Hgb 16.3 H Hct 48.2 H MCV 89.4 MCH 30.2 MCHC 33.8 RDW Std Deviation 44.0 H RDW Coeff of Yonathan 13.5 Plt Count 299 MPV 10.6 Immature Gran % (Auto) 0.800 Neut % (Auto) 94.1 H Lymph % (Auto) 3.9 L [place] % (Auto) 1.1 Eos % (Auto) 0.0 Baso % (Auto) 0.1 Absolute Neuts (auto) 13.9 H Absolute Lymphs (auto) 0.57 L Nucleated RBC % 0 Differential Comment SCANNED D-Dimer Quant (PE/DVT) 0.53 H* Sodium 136 Potassium 4.2 Chloride 104 Carbon Dioxide 22.0 Anion Gap 10 BUN 15 Creatinine 1.46 H Estim Creat Clear Calc 36.27 Est GFR (MDRD) Af Amer 47 L Est GFR (MDRD) Non-Af 39 L BUN/Creatinine Ratio 10.3 Glucose 143 H Calcium 10.1 Troponin I High Sens 6 ABG Data ABG results: ABG 06/08/22 14:57 Specimen Type ART Sample Site L Radial pH 7.46 H Bicarbonate Actual 21.5 L Total CO2 23 Base Excess -2 O2 Saturation 97 O2 % 21 ABG pCO2 30.5 L ABG pO2 84 Vincent Test Positive O2 Delivery Device Room Air Radiography Chest X-Ray - ED: 2 View and Read by ED Physician (2 view chest x-ray reveals no evidence of infiltrate or congestive heart failure. Cardiac silhouette is unremarkable. There is mild cardiomegaly. Osseous trucks unremarkable. Perihilar regions unremarkable. This was independently reviewed and interpreted by me at 1400.) Diagnostic Testing: Clinical Impression(s) from Imaging Studies Chest X-Ray 06/08/22 13:45 IMPRESSION: Moderate cardiomegaly. The lungs are clear. Electronically Signed: Patrick Keita MD at 14:04 EDT , EKG Initial EKG: Attestation: I personally reviewed and interpreted this EKG as follows: Interpretation: Sinus Tachycardia (But rate 114. NC interval 162 ms. QRS duration 74 ms. QT duration 308 ms. [place] is normal. Other than the tachycardia the EKG is normal.) Discharge Plan Triage Chief Complaint: Shortness of Breath Other Complaint: Dizziness ED Provider: Arturo Duran Dx/Rx/DC Orders Clinical Impression: Dyspnea, Morbid obesity, Vocal cord dysfunction, Chronic kidney disease (CKD), stage II (mild) Instructions: ED Dyspnea Prescriptions: No Action nitroglycerin 0.4 mg tablet, sublingual 0.4 mg SUBLINGUAL PRN PRN (Reason: CHEST PAIN) Qty: 25 3RF ipratropium-albuterol 0.5 mg-3 mg(2.5 mg base)/3 mL solution for nebulization 3 ml inhalation Q4H PRN PRN (Reason: SOB &/OR WHEEZING) Qty: 180 6RF nicotine (polacrilex) 4 mg mini lozenge 4 mg buccal Q6H PRN (Reason: nicotine cravings) Qty: 81 1RF nystatin 100,000 unit/mL suspension 5 ml mucous membrane TID Qty: 250 1RF Rx Instructions: swish and swallow 5 cc three times per day for 10 days azithromycin 250 mg tablet See Rx Instructions PO .COMPLEX Qty: 6 0RF Rx Instructions: take 500 mg today (day 1), then 250 mg for 4 days (days 2-5) PO prednisone 20 mg tablet 60 mg PO QDAY Qty: 15 0RF Rx Instructions: administer with food or milk esomeprazole magnesium 40 mg capsule,delayed release(DR/EC) 40 mg PO DAILY Qty: 90 3RF prochlorperazine maleate [Compazine] 5 mg tablet 5 mg PO BID PRN (Reason: nausea and vomiting) Qty: 20 0RF ondansetron 4 mg tablet,disintegrating 4 mg PO Q8H PRN (Reason: nausea and vomiting) Qty: 60 1RF furosemide 20 mg tablet 20 mg PO BID Qty: 180 1RF prednisolone acetate 1 % drops,suspension 1 drp EACH EYE BID Label Comments: 1 drop in left eye twice a day lidocaine 5 % adhesive patch,medicated 1 patch topical DAILY PRN (Reason: Pain) Rx Instructions: leave on most painful area for up to 12 hrs atorvastatin 40 mg tablet 40 mg PO QHS Desenex 2 % powder 1 applic TOPICAL BID spironolactone 25 mg tablet 25 mg PO QHS levothyroxine 50 mcg tablet 50 mcg PO DAILY azelastine 205.5 mcg (0.15 %) spray,non-aerosol 1 spray intranasal BID Rx Instructions: administer into each nostril melatonin 10 mg capsule 10 mg PO QHS hydralazine 50 mg tablet 50 mg PO TID Qty: 270 3RF polyethylene glycol 3350 [Miralax] 17 gram/dose powder 17 g PO BID PRN (Reason: Constipation) Qty: 238 1RF loratadine 10 mg tablet 10 mg PO DAILY Qty: 90 1RF Rx Instructions: TAKE 1 TABLET BY MOUTH EVERY DAY budesonide-formoterol [Symbicort] 160-4.5 mcg/actuation HFA aerosol inhaler 2 puff INHALATION BID Qty: 10.2 3RF montelukast [Singulair] 10 mg tablet 10 mg PO QHS Qty: 30 11RF nifedipine 60 mg tablet extended release 24hr 30 mg PO BID Qty: 30 11RF Rx Instructions: Hold for SBP less than 120 mmHg Spiriva Respimat 1.25 mcg/actuation mist 2 puff inhalation DAILY Qty: 4 6RF albuterol sulfate 90 mcg/actuation HFA aerosol inhaler 2 puff inhalation Q4H PRN (Reason: shortness of breath or wheezing) Qty: 8.5 6RF Rx Instructions: administer with spacer guaifenesin 1,200 mg tablet extended release 12hr 600 mg PO BID Qty: 60 1RF fluticasone propionate 50 mcg/actuation spray,suspension See Rx Instructions .ROUTE .COMPLEX Qty: 16 0RF Dose Instruction: USE 1 SPRAY IN EACH NOSTRIL TWICE A DAY FOR ALLERGIES Rx Instructions: USE 1 SPRAY IN EACH NOSTRIL TWICE A DAY FOR ALLERGIES aspirin 81 mg tablet,delayed release (DR/EC) 81 mg PO DAILY Qty: 90 1RF Rx Instructions: TAKE 1 TABLET BY MOUTH EACH AM AROUND 8 AM losartan 100 mg tablet 100 mg PO DAILY Qty: 90 1RF Primary Care Provider: Elizabeth Santamaria Referrals: Elizabeth Santamaria MD [Primary Care Provider] - 3-5 Days Disposition Disposition: Home, Self Care
--- NOTE | 2022-06-08 13:45 | RAD_ITS ---
STUDY: X-RAY CHEST REASON FOR EXAM: Female, 57 years old. Dyspnea and chest pain TECHNIQUE: PA and lateral views of the chest. COMPARISON: Comparison is made with prior study dated 02/27/2022. FINDINGS: EKG electrodes are seen. The lungs are clear and expanded. There is no demonstrated pleural abnormality. There is moderate cardiac enlargement. Normal mediastinum and rosita. Normal visualized pulmonary arteries. Normal visualized aortic arch and descending thoracic aorta. There are diffuse degenerative changes of the visualized thoracic spine. Normal visualized ribs, clavicles, and shoulders. There is no demonstrated abnormality of the visualized soft tissue structures of the upper abdomen. RAD/Chest PA and Lateral IMPRESSION: Moderate cardiomegaly. The lungs are clear. Electronically Signed: Patrick Keita MD at 14:04 EDT ,
[2022-06-08 13:54] LABS: Absolute Lymphocyte Count 0.57 X10^3/uL (0.83-4.51); Absolute Neutrophil Count 13.9 X10^3/uL (2.0-7.7); Basophil# 0.02 X10^3/uL; Basophil% 0.1 % (0-1); Hematocrit 48.2 % (37-47); Hemoglobin 16.3 g/dL (12.0-15.0); Lymphocyte # 0.57 X10^3/ul (0.83-4.51); Lymphocyte % 3.9 % (19-41); Mean Corp Hgb Conc 33.8 g/dL (32-36); Mean Corpuscular Hgb 30.2 pg (27.0-32.0); Mean Corpuscular Volume 89.4 fL (81-99); Mean Platelet Vol. 10.6 fl (6.2-12.0); Monocyte# 0.16 X10^3/uL; Monocyte% 1.1 % (0-10); NRBC Flagged by Analyzer 0 % (0-5); Neutrophil % 94.1 % (47-70); POSITIVE DIFFERENTIAL YES; Platelet Count 299 K/mm3 (150-450); RBC Distribution Width CV 13.5 % (11.6-14.6); Red Blood Count 5.39 M/mm3 (4.2-5.4); White Blood Count 14.8 K/mm3 (4.4-11.0)
[2022-06-08 13:57] LABS: Differential Indicated SCAN CRITERIA MET
[2022-06-08 14:17] VITALS: BP 140/78; PULSE 84; RESP 16; TEMP 36.9; O2SAT 97
[2022-06-08 14:21] LABS: D-Dimer Quantitative (DVT/PE) 0.53 FEU/ug/m (0.27-0.49)
[2022-06-08 14:31] LABS: Anion Gap 10 (5-15); BUN 15 mg/dL (7-18); BUN/Creat Ratio 10.3 RATIO (10-20); Calcium,Total 10.1 mg/dL (8.5-10.1); Chloride 104 mmol/L (98-107); Creatinine, Serum 1.46 mg/dL (0.55-1.02); EST Glomerular Filtration Rate 39 mL/min (>60); Est Glom Filt Rate - Afr Amer 47 mL/min (>60); Estimated Creatinine Clearance 36.27 ml/min; Glucose 143 mg/dL (74-106); Potassium 4.2 mmol/L (3.5-5.1); Sodium Level 136 mmol/L (136-145); Troponin-I HS 6 pg/mL (3.0-54.0)
[2022-06-08 14:58] LABS: Differential Comment SCANNED
[2022-06-08 15:05] LABS: Allen Test Positive; Base Excess -2 mmol/L (-2 to +2); Bicarbonate 21.5 mmol/L (22-26); Blood Gas Specimen Type ART; FI02 21; O2 Delivery Device Room Air; PO2 84 mmHG (75-100); SITE L Radial; SO2 97 % (95-99); Total Carbon Dioxide 23 mmol/L; pCO2 30.5 mmHg (35-45); pH 7.46 (7.35-7.45)
[2022-06-08 15:15] VITALS: BP 140/78; PULSE 84; RESP 16; O2SAT 96
[2022-06-08 15:34] VITALS: BP 140/78; PULSE 85; RESP 19; O2SAT 96
== END 2022-06-08 15:35 | disposition home or self-care (01) ==
PROVIDERS: Emergency Provider Emergency Medicine; PCP Internal Medicine; Visit Provider Emergency Medicine
DX: R06.00 Dyspnea, unspecified (principal); F20.9 Schizophrenia, unspecified; J44.9 Chronic obstructive pulmonary disease, unspecified; I13.0 Hypertensive heart and chronic kidney disease with heart failure and stage 1 through stage 4 chronic kidney disease, or unspecified chronic kidney disease; I50.9 Heart failure, unspecified; F31.9 Bipolar disorder, unspecified; I73.9 Peripheral vascular disease, unspecified; I48.0 Paroxysmal atrial fibrillation; E66.01 Morbid (severe) obesity due to excess calories; Z68.41 Body mass index [BMI] 40.0-44.9, adult; G40.909 Epilepsy, unspecified, not intractable, without status epilepticus; Z86.711 Personal history of pulmonary embolism; N18.2 Chronic kidney disease, stage 2 (mild); I87.2 Venous insufficiency (chronic) (peripheral); K21.9 Gastro-esophageal reflux disease without esophagitis; F32.A Depression, unspecified; Z87.19 Personal history of other diseases of the digestive system; G47.33 Obstructive sleep apnea (adult) (pediatric); K58.9 Irritable bowel syndrome, unspecified; E03.9 Hypothyroidism, unspecified; I34.0 Nonrheumatic mitral (valve) insufficiency; Z78.0 Asymptomatic menopausal state; Z86.73 Personal history of transient ischemic attack (TIA), and cerebral infarction without residual deficits; I35.1 Nonrheumatic aortic (valve) insufficiency; E78.00 Pure hypercholesterolemia, unspecified; Z79.899 Other long term (current) drug therapy; Z79.82 Long term (current) use of aspirin; F17.210 Nicotine dependence, cigarettes, uncomplicated; J38.3 Other diseases of vocal cords; M79.605 Pain in left leg
CPT/HCPCS: 36415; 36600; 71046; 80048; 80053; 82803; 84484; 85025; 85379; 93005; 99282; A4216

== ENCOUNTER → 2022-06-08 | Outpatient (CLI) | payer MEDICAID, SELFPAY ==
[2022-06-08 10:19] LABS: Absolute Lymphocyte Count 0.72 X10^3/uL (0.83-4.51); Absolute Neutrophil Count 12.4 X10^3/uL (2.0-7.7); Basophil# 0.01 X10^3/uL; Basophil% 0.1 % (0-1); Hematocrit 49.3 % (37-47); Hemoglobin 16.6 g/dL (12.0-15.0); Lymphocyte # 0.72 X10^3/ul (0.83-4.51); Lymphocyte % 5.3 % (19-41); Mean Corp Hgb Conc 33.7 g/dL (32-36); Mean Corpuscular Hgb 30.8 pg (27.0-32.0); Mean Corpuscular Volume 91.5 fL (81-99); Mean Platelet Vol. 10.6 fl (6.2-12.0); Monocyte# 0.35 X10^3/uL; Monocyte% 2.6 % (0-10); NRBC Flagged by Analyzer 0 % (0-5); Neutrophil % 91.5 % (47-70); Platelet Count 277 K/mm3 (150-450); RBC Distribution Width CV 13.4 % (11.6-14.6); RBC Distribution Width SD 45.2 fl (35.1-43.9); Red Blood Count 5.39 M/mm3 (4.2-5.4); White Blood Count 13.6 K/mm3 (4.4-11.0)
[2022-06-08 10:44] LABS: ALB/GLOB Ratio 1.1 RATIO (0.9-2.4); AST(SGOT) 13 U/L (15-37); Alanine Aminotransfer ALT/SGPT 34 U/L (13-56); Albumin, Serum 4.2 g/dL (3.2-5.0); Alkaline Phosphatase 125 U/L (45-117); Anion Gap 10 (5-15); BUN 14 mg/dL (7-18); BUN/Creat Ratio 10.8 RATIO (10-20); Calcium,Total 10.1 mg/dL (8.5-10.1); Chloride 104 mmol/L (98-107); D-Dimer Quantitative (DVT/PE) 0.48 FEU/ug/m (0.27-0.49); EST Glomerular Filtration Rate 45 mL/min (>60); Est Glom Filt Rate - Afr Amer 54 mL/min (>60); Globulin 3.8 g/dL (2.2-4.2); Glucose 120 mg/dL (74-106); Potassium 4.4 mmol/L (3.5-5.1); Sodium Level 137 mmol/L (136-145); Troponin-I HS 7 pg/mL (3.0-54.0)
== END | disposition home or self-care (01) ==
LOC: BIMLAB 09:25
PROVIDERS: PCP Internal Medicine; Referring Provider Internal Medicine; Visit Provider Internal Medicine
DX: R06.02 Shortness of breath (principal)
CPT/HCPCS: 36415; 80053; 84484; 85025; 85379

== ENCOUNTER → 2022-06-20 | Outpatient (CLI) | payer MEDICAID, SELFPAY ==
[2022-06-20 12:06] LABS: Absolute Lymphocyte Count 1.59 X10^3/uL (0.83-4.51); Absolute Neutrophil Count 8.7 X10^3/uL (2.0-7.7); Basophil# 0.03 X10^3/uL; Basophil% 0.3 % (0-1); Eosinophil# 0.18 X10^3/uL; Eosinophils% 1.6 % (0-5); Hematocrit 43.1 % (37-47); Hemoglobin 14.6 g/dL (12.0-15.0); Lymphocyte # 1.59 X10^3/ul (0.83-4.51); Mean Corp Hgb Conc 33.9 g/dL (32-36); Mean Corpuscular Volume 91.5 fL (81-99); Mean Platelet Vol. 10.6 fl (6.2-12.0); Monocyte# 0.82 X10^3/uL; Monocyte% 7.2 % (0-10); NRBC Flagged by Analyzer 0 % (0-5); Neutrophil # 8.65 X10^3/uL (2.7-7.7); Neutrophil % 76.5 % (47-70); Platelet Count 246 K/mm3 (150-450); RBC Distribution Width CV 13.5 % (11.6-14.6); RBC Distribution Width SD 46.2 fl (35.1-43.9); Red Blood Count 4.71 M/mm3 (4.2-5.4); White Blood Count 11.3 K/mm3 (4.4-11.0)
[2022-06-20 12:27] LABS: Anion Gap 9 (5-15); BUN 8 mg/dL (7-18); BUN/Creat Ratio 6.3 RATIO (10-20); Calcium,Total 9.2 mg/dL (8.5-10.1); Chloride 102 mmol/L (98-107); Creatinine, Serum 1.27 mg/dL (0.55-1.02); EST Glomerular Filtration Rate 46 mL/min (>60); Est Glom Filt Rate - Afr Amer 56 mL/min (>60); Glucose 95 mg/dL (74-106); Potassium 3.8 mmol/L (3.5-5.1); Sodium Level 136 mmol/L (136-145)
[2022-06-20 12:49] LABS: BNP,B-Type NATRIURETIC PEPTIDE 19.3 pg/mL (0-100)
== END | disposition home or self-care (01) ==
LOC: LAB 11:16
PROVIDERS: PCP Internal Medicine; Referring Provider Nurse Practitioner Gerontology; Visit Provider Nurse Practitioner Gerontology
DX: R06.09 Other forms of dyspnea (principal)
CPT/HCPCS: 36415; 80048; 83880; 85025

== ENCOUNTER → 2022-06-27 | Outpatient (CLI) | payer MEDICAID, SELFPAY | END | disposition home or self-care (01) | LOC: PSN 08:21 | PROVIDERS: PCP Internal Medicine; Referring Provider Internal Medicine; Visit Provider Internal Medicine | DX: R06.02 Shortness of breath (principal) | CPT/HCPCS: 93225; 93226 ==

== ENCOUNTER → 2022-07-04 | Outpatient (CLI) | payer MEDICAID, SELFPAY ==
--- NOTE | 2022-07-04 07:46 | ECHOD_ITS ---
Reason For Study: DYSPNEA Procedure This was a 2D Doppler, Color Flow transthoracic echocardiogram. The study was technically difficult. Exam performed in department. Left Ventricle Normal LV size. Mild concentric left ventricular hypertrophy. Left ventricular systolic function is normal. The estimated ejection fraction is 65 %. No evidence for diastolic dysfunction. No regional wall motion abnormalities noted. Right Ventricle Normal RV size. Normal systolic function. Atria Normal left atrium. Normal right atrium. No doppler evidence for ASD. Mitral Valve There is no mitral annular calcification. Normal mitral valve. Trivial mitral valve insufficiency. Tricuspid Valve Normal tricuspid valve. Trivial tricuspid valve insufficiency. Unable to estimate RV systolic pressure/pulmonary artery pressure due to technically difficult study. Aortic Valve Trisinus/trileaflet aortic valve. Mild focal aortic valve calcification. Trivial aortic valve insufficiency. Pulmonic Valve The pulmonic valve is not well visualized. Great Vessels Mildly dilated aortic root. Pericardium/Pleural Trivial pericardial effusion. There are no echocardiographic indications of cardiac tamponade. MMode/2D Measurements & Calculations LVIDd: 5.7 cm IVSd: 1.3 cm LVOT diam: 2.2 cm LVIDs: 3.5 cm LVPWd: 1.3 cm LVOT area: 3.9 cm2 RVDd: 3.1 cm FS: 38.9 % Ao root diam: 4.3 cm LAV(MOD-bp): 64.1 ml LA A4 area: 19.2 cm2 LAV(MOD-bp) Indexed: 29.2 ml/m2 LAV(MOD-sp2): 63.7 ml LAV(MOD-sp4): 63.8 ml LA dimension(2D): 3.5 cm Time Measurements MV dec time: 0.22 sec Doppler Measurements & Calculations MV E max govind: 68.1 cm/sec Lat Peak E' Govind: 7.4 cm/sec Med Peak E' Govind: 9.7 cm/sec MV A max govind: 82.2 cm/sec E/E' lat: 9.2 E/E' med: 7.0 MV E/A: 0.83 Ao V2 max: 231.0 cm/sec AI max govind: 373.2 cm/sec MV dec slope: 308.5 cm/sec2 Ao max P.4 mmHg AI max P.8 mmHg Ao V2 mean: 156.9 cm/sec Ao mean P.1 mmHg AI dec slope: 185.7 cm/sec2 Ao V2 VTI: 44.6 cm AI P1/2t: 588.7 msec YAJAIRA(I,D): 2.7 cm2 YAJAIRA(V,D): 2.4 cm2 LV V1 max: 145.4 cm/sec SV(LVOT): 119.8 ml PA V2 max: 135.9 cm/sec LV V1 max P.5 mmHg LV V1 mean P.3 mmHg LV V1 mean: 96.4 cm/sec LV V1 VTI: 30.9 cm ECHO/Echo Complete Interpretation Summary The study was technically difficult. Left ventricular systolic function is normal. The estimated ejection fraction is 65 %. Mild concentric left ventricular hypertrophy. Trivial mitral valve insufficiency. Trivial tricuspid valve insufficiency. Mild focal aortic valve calcification. Trivial aortic valve insufficiency. Mildly dilated aortic root. Trivial pericardial effusion. There are no echocardiographic indications of cardiac tamponade. Unable to estimate RV systolic pressure/pulmonary artery pressure due to techni karen difficult study. No evidence for diastolic dysfunction. Ordering Physician: Basia Cueva Referring Physician: Mary Santamaria Performed By: Mindi Henning, BELINDACS, RVT
== END | disposition home or self-care (01) ==
LOC: CVS 07:46
PROVIDERS: PCP Internal Medicine; Referring Provider Nurse Practitioner Gerontology; Visit Provider Nurse Practitioner Gerontology
DX: R06.09 Other forms of dyspnea (principal)
CPT/HCPCS: 93306

== ENCOUNTER 2022-07-06 07:30 | Outpatient (RCR) | payer MEDICAID, SELFPAY | END 2022-07-14 23:59 | LOC: NS 07:30 | PROVIDERS: PCP Internal Medicine; Referring Provider Internal Medicine; Visit Provider Internal Medicine | DX: Z71.3 Dietary counseling and surveillance (principal); E66.01 Morbid (severe) obesity due to excess calories; Z68.42 Body mass index [BMI] 45.0-49.9, adult | CPT/HCPCS: 97803 ==

== ENCOUNTER 2022-08-08 07:42 | Outpatient (RCR) | payer MEDICAID, SELFPAY | END 2022-08-14 23:59 | LOC: NS 07:42 | PROVIDERS: PCP Internal Medicine; Referring Provider Internal Medicine; Visit Provider Internal Medicine | DX: Z71.3 Dietary counseling and surveillance (principal); E66.01 Morbid (severe) obesity due to excess calories | CPT/HCPCS: 97803 ==

== ENCOUNTER → 2022-08-17 | Outpatient (CLI) | payer MEDICAID, SELFPAY ==
[2022-08-17 10:52] LABS: Absolute Lymphocyte Count 1.06 X10^3/uL (0.83-4.51); Absolute Neutrophil Count 5.8 X10^3/uL (2.0-7.7); Basophil# 0.01 X10^3/uL; Basophil% 0.1 % (0-1); Eosinophil# 0.18 X10^3/uL; Eosinophils% 2.4 % (0-5); Hematocrit 44.3 % (37-47); Hemoglobin 15.3 g/dL (12.0-15.0); Lymphocyte # 1.06 X10^3/ul (0.83-4.51); Lymphocyte % 14.1 % (19-41); Mean Corp Hgb Conc 34.5 g/dL (32-36); Mean Corpuscular Hgb 31.7 pg (27.0-32.0); Mean Corpuscular Volume 91.9 fL (81-99); Mean Platelet Vol. 10.5 fl (6.2-12.0); Monocyte# 0.48 X10^3/uL; Monocyte% 6.4 % (0-10); NRBC Flagged by Analyzer 0 % (0-5); Neutrophil # 5.75 X10^3/uL (2.7-7.7); Neutrophil % 76.7 % (47-70); Platelet Count 245 K/mm3 (150-450); RBC Distribution Width CV 13.8 % (11.6-14.6); RBC Distribution Width SD 47.1 fl (35.1-43.9); Red Blood Count 4.82 M/mm3 (4.2-5.4); White Blood Count 7.5 K/mm3 (4.4-11.0)
[2022-08-17 11:27] LABS: Anion Gap 2 (5-15); BUN 15 mg/dL (7-18); BUN/Creat Ratio 13.3 RATIO (10-20); Calcium,Total 9.2 mg/dL (8.5-10.1); Chloride 107 mmol/L (98-107); Creatinine, Serum 1.13 mg/dL (0.55-1.02); EST Glomerular Filtration Rate 53 mL/min (>60); Est Glom Filt Rate - Afr Amer 64 mL/min (>60); Glucose 102 mg/dL (74-106); Potassium 3.9 mmol/L (3.5-5.1); Sodium Level 138 mmol/L (136-145); Thyroid Stim Hormone (TSH) 1.51 uIU/mL (0.358-3.74)
== END | disposition home or self-care (01) ==
PROVIDERS: PCP Internal Medicine; Visit Provider Nurse Practitioner Gerontology
DX: R06.09 Other forms of dyspnea (principal); R42 Dizziness and giddiness
CPT/HCPCS: 36415; 80048; 83880; 84443; 85025

== ENCOUNTER 2022-09-06 08:09 | Outpatient (RCR) | payer MEDICAID, SELFPAY | END 2022-09-13 23:59 | LOC: NS 08:09 | PROVIDERS: PCP Internal Medicine; Referring Provider Internal Medicine; Visit Provider Internal Medicine | DX: Z71.3 Dietary counseling and surveillance (principal); E66.01 Morbid (severe) obesity due to excess calories | CPT/HCPCS: 97803 ==

== ENCOUNTER 2022-09-18 09:05 | Outpatient (CLI) | payer MEDICAID, SELFPAY ==
--- NOTE | 2022-09-18 09:07 | CDU_ITS ---
Reason For Study: dizziness Rt. Velocities/BP Lt. Velocities/BP Prox CCA 98.1/11.3 cm/sec. Prox CCA 131.3/21.7 cm/sec. Mid CCA 104.7/19.0 cm/sec. Mid CCA 93.2/19.5 cm/sec. Dist CCA 72.9/15.7 cm/sec. Dist CCA 82.1/19.5 cm/sec. Prox ICA 50.4/13.1 cm/sec. Prox ICA 130.0/35.1 cm/sec. Mid ICA 90.4/30.2 cm/sec. Mid ICA 89.9/20.5 cm/sec. Dist ICA 149.0/3.5.8 cm/sec. Dist ICA 172.5/36.4 cm/sec. Rt. ICA/CCA = 149.0/104.7=1.4. Lt. ICA/CCA = 172.5/93.2=1.9. Prox ECA 110.2/12.4 cm/sec. Prox ECA 211.5/17.1 cm/sec. Rt. Vert. 55.7/15.6 cm/sec. Lt. Vert. 71.0/18.2 cm/sec. Right Extracranial There is homogeneous, smooth atherosclerotic plaque noted in the right common carotid artery. There is intimal thickening but no significant atherosclerotic plaque noted in the right internal carotid artery. The tortuous nature of the right internal carotid artery may result in flow velocities overestimating the degree of stenosis. There is intimal thickening but no significant atherosclerotic plaque noted in the right external carotid artery. The right external carotid artery is tortuous. Antegrade flow is noted in the right vertebral artery. Left Extracranial There is intimal thickening but no significant atherosclerotic plaque noted in the left common carotid artery. There is intimal thickening but no significant atherosclerotic plaque noted in the left internal carotid artery. The tortuous nature of the left internal carotid artery may result in flow velocities overestimating the degree of stenosis. There is intimal thickening but no significant atherosclerotic plaque noted in the left external carotid artery. Antegrade flow is noted in the left vertebral artery. Procedure Carotid Duplex [id number]. This is a Carotid Duplex examination using B-mode, color flow and specral Doppler. Exam performed in department. VL/Carotid Duplex Ultrasound Interpretation Summary Normal right extracranial internal carotid. Normal left extracranial internal carotid. Patent and antegrade vertebrals bilaterally. Elevated velocities likely due to vessel tortuosity. No plaque visualized Ordering Physician: Basia Cueva Referring Physician: Elizabeth Santamaria Performed By: Mindi Henning, BELINDACS, RVT
== END 2022-09-18 23:59 | disposition home or self-care (01) ==
PROVIDERS: PCP Internal Medicine; Referring Provider Nurse Practitioner Gerontology; Visit Provider Nurse Practitioner Gerontology
DX: R42 Dizziness and giddiness (principal); I77.1 Stricture of artery; I65.21 Occlusion and stenosis of right carotid artery
CPT/HCPCS: 93880

== ENCOUNTER 2022-10-01 07:32 | Emergency (ER) | payer MEDICAID, SELFPAY ==
[2022-10-01] VITALS (7 sets, daily range): BP systolic 108–176; BP diastolic 58–80; PULSE 63–97; RESP 13–24; TEMP 36.6–36.7; O2SAT 95–99; BMI 46.6
--- NOTE | 2022-10-01 07:43 | EDS_ITS ---
HPI History of Present Illness Chief Complaint: Shortness of Breath Informant: patient Onset/Context/Timing Onset: Days (3) Context: gradual Timing: Continuous Quality: Positive for - (Sharp pain) Worsened by: other (Breathing) Relieved by: Nothing Associated Symptoms cough, rhinorrhea, subjective and chills; Negative for post nasal drip, ear pain, fever, sore throat, sweats, clear sputum, white sputum, yellow sputum or green sputum Chest Pain: Positive for Intermittent and Sharp Narrative Narrative: Patient presents with shortness of breath that has been getting worse over the last 3 days. Patient states she has pain when she takes a deep breath. Patient describes her pain as sharp. Patient states nothing makes it better. Patient states it is worse with deep breathing. Patient admits to a cough but denies any sputum production. Patient denies any fevers but admits to some subjective chills this morning. Patient states her pain is diffuse across her chest. Patient is a smoker. Patient states she was recently diagnosed with COVID. PE Risk Factors: Negative for Cancer, OCP + Smoking + > 35, Prior DVT or PE, Recent immobilization, Recent surgery or Recent travel [facility] Medical History Abdominal pain Allergic rhinitis Aortic valve insufficiency Arthralgia of right hip Arthritis Asthma Back pain Bilateral flank pain Bilateral foot pain Bipolar 1 disorder Blackout Bladder disease Cancer Cardiology follow-up encounter Chest pain CKD (chronic kidney disease) Colitis Conversion disorder with abnormal movement Convulsion, non-epileptic COPD, mild CPAP (continuous positive airway pressure) dependence Cyclic vomiting syndrome Cyst Debility Degenerative tear of meniscus of left knee Depression Diarrhea Dietary restriction Difficulty chewing Dysuria Easy bruising Enlarged aorta Excessive bleeding Gastric reflux Gastritis Heart failure High cholesterol Hip dislocation, right History of abnormal cervical Pap smear History of atrial fibrillation History of CHF (congestive heart failure) History of echocardiogram History of edema History of hiatal hernia History of IBS History of stress test History of ulceration HTN (hypertension) Hx of tilt table evaluation Hypertensive crisis without congestive heart failure Hypokalemia Hyponatremia Hypothyroidism Injury of head and neck Intertriginous dermatitis associated with moisture Kidney disease Left arm swelling Leg cramps Marijuana use Migraines Morbid obesity Myositis Nausea and vomiting Non-convulsive status epilepticus Non-rheumatic mitral regurgitation Nonrheumatic aortic (valve) insufficiency Open wound Oral candidiasis Orthostatic hypotension DAPHNE (obstructive sleep apnea) Osteoarthritis Osteoarthritis of left knee Osteoarthritis of right hip PAF (paroxysmal atrial fibrillation) Pain of left calf Peripheral artery disease Post-menopausal Psychosis Pulmonary embolism Sarcoidosis Schizo NEC, chrn/exacerb Schizophrenia Seizures Shortness of breath on exertion Smoker Stroke Stroke/cerebrovascular accident Syncope Thyroid disease TIA (transient ischemic attack) Tobacco abuse Venous insufficiency of both lower extremities Walker as ambulation aid Wears dentures Home Medications nitroglycerin 0.4 mg sublingual tablet 0.4 mg sublingual PRN PRN CHEST PAIN #25 tabs 12/05/21 [Rx Last Taken Unknown] lidocaine 5 % topical patch 1 patch topical DAILY PRN Pain 12/26/21 [History Last Taken 03/11/22] azelastine 205.5 mcg (0.15 %) nasal spray 1 spray intranasal BID allergies 02/27/22 [History Last Taken 03/13/22] levothyroxine 50 mcg tablet 50 mcg PO DAILY thyroid 02/27/22 [History Last Taken 03/13/22 22:18] melatonin 10 mg capsule 10 mg PO QHS insomnia 02/27/22 [History Last Taken 03/13/22] miconazole nitrate 2 % topical powder (Desenex) 1 applic topical BID rash 02/27/22 [History Last Taken 03/10/22] montelukast 10 mg tablet (Singulair) 10 mg PO QHS allergies #30 tabs 03/17/22 [Rx Last Taken Unknown] nifedipine 60 mg tablet,extended release 24 hr 30 mg PO BID bp #30 tabs 03/17/22 [Rx Last Taken Unknown] ondansetron 4 mg disintegrating tablet 4 mg PO Q8H PRN nausea and vomiting #60 tabs 03/23/22 [Rx Last Taken Unknown] prochlorperazine maleate 5 mg tablet (Compazine) 5 mg PO BID PRN nausea and vomiting #20 tabs 03/23/22 [Rx Last Taken Unknown] esomeprazole magnesium 40 mg capsule,delayed release 40 mg PO DAILY #90 caps 03/30/22 [Rx Last Taken Unknown] albuterol sulfate 90 mcg/actuation aerosol inhaler 2 puff inhalation Q4H PRN s hortness of breath or wheezing #8.5 grams 05/09/22 [Rx Last Taken Unknown] ipratropium 0.5 mg-albuterol 3 mg (2.5 mg base)/3 mL nebulization soln 3 ml inhalation Q4H PRN PRN SOB &/OR WHEEZING #180 mL 06/07/22 [Rx Last Taken Unknown] nicotine (polacrilex) 4 mg buccal mini lozenge 4 mg buccal Q6H PRN nicotine cravings #81 ea 06/07/22 [Rx Last Taken Unknown] nystatin 100,000 unit/mL oral suspension 5 ml mucous membrane TID #250 mL 06/07/22 [Rx Last Taken Unknown] aspirin 81 mg tablet,delayed release 81 mg PO DAILY heart health #90 tabs 06/08/22 [Rx Last Taken Unknown] losartan 100 mg tablet 100 mg PO DAILY bp #90 tabs 06/08/22 [Rx Last Taken Unknown] hydroxyzine HCl 10 mg tablet 10 mg PO Q8H PRN anxiety #30 tabs 06/12/22 [Rx Last Taken Unknown] aripiprazole 5 mg tablet (Abilify) 5 mg PO DAILY 06/20/22 [History Last Taken Unknown] trazodone 50 mg tablet 50 mg PO QHS PRN 06/20/22 [History Last Taken Unknown] ibuprofen 400 mg tablet 400 mg PO Q8H PRN pain #12 tabs 06/26/22 [Rx Last Taken Unknown] atorvastatin 40 mg tablet 40 mg PO QHS cholesterol #90 tabs 06/30/22 [Rx Last Taken Unknown] polyethylene glycol 3350 17 gram/dose oral powder (Miralax) 17 g PO BID PRN Constipation #238 grams 08/01/22 [Rx Last Taken Unknown] fluticasone propionate 50 mcg/actuation nasal spray,suspension See Rx Instructions .Route .COMPLEX #16 grams 08/02/22 [Rx Last Taken Unknown] loratadine 10 mg tablet 10 mg PO DAILY allergies #90 tabs 08/02/22 [Rx Last Taken Unknown] spironolactone 25 mg tablet 25 mg PO QHS bp #90 tabs 08/02/22 [Rx Last Taken Unknown] hydralazine 100 mg tablet 100 mg PO TID blood pressure #90 tabs 08/17/22 [Rx Last Taken Unknown] budesonide-formoterol HFA 160 mcg-4.5 mcg/actuation aerosol inhaler (Symbicort) 2 puff inhalation BID wheezing #10.2 grams 08/25/22 [Rx Last Taken Unknown] furosemide 20 mg tablet (Lasix) 20 mg PO DAILY #30 tabs 08/25/22 [Rx Last Taken Unknown] guaifenesin 1,200 mg tablet, extended release 12 hr 600 mg PO BID allergies #60 tabs 08/25/22 [Rx Last Taken Unknown] tiotropium bromide 1.25 mcg/actuation mist for inhalation (Spiriva Respimat) 2 puff inhalation DAILY breathing #4 grams 08/25/22 [Rx Last Taken Unknown] benzonatate 100 mg capsule 100 mg PO BID PRN cough #20 caps 09/27/22 [Rx Last Taken Unknown] nirmatrelvir 300 mg (150 mg x2)-ritonavir 100 mg tablet,dose pack(EUA) (Paxlovid) See Rx Instructions PO .COMPLEX #30 tabs 09/27/22 [Rx Last Taken Unknown] Allergy/AdvReac Type Severity Reaction Status Date / Time adhesive tape Allergy Rash Verified 10/01/22 07:36 atropine sulfate Allergy Hives Verified 10/01/22 07:36 [From ] codeine phosphate Allergy breathing Verified 10/01/22 07:36 [From Tylenol-Codeine #3] problems divalproex sodium Allergy Unknown Verified 10/01/22 07:36 [From Depakote] guaifenesin Allergy Itching Verified 10/01/22 07:36 hydrocodone Allergy Itching Verified 10/01/22 07:36 hydromorphone HCl Allergy facial Verified 10/01/22 07:36 [From Dilaudid] blisters,itching hyoscyamine sulfate Allergy Hives Verified 10/01/22 07:36 [From ] Iodinated Contrast Media Allergy breathing Verified 10/01/22 07:36 [Iodinated Contrast Media - problems IV Dye] and my bp went up latex Allergy Rash Verified 10/01/22 07:36 pantoprazole sodium Allergy Rash Verified 10/01/22 07:36 [From Protonix] phenobarbital [From ] Allergy Hives Verified 10/01/22 07:36 promethazine HCl Allergy Anaphylaxis Verified 10/01/22 07:36 [From Phenergan] ramipril Allergy Unknown Verified 10/01/22 07:36 scopolamine hydrobromide Allergy Hives Verified 10/01/22 07:36 [From ] tramadol Allergy Itching Verified 10/01/22 07:36 ziprasidone mesylate Allergy Unknown Verified 10/01/22 07:36 [From Geodon] amlodipine AdvReac Vomiting Verified 10/01/22 07:36 levofloxacin [From Levaquin] AdvReac Itching Verified 10/01/22 07:36 metoclopramide [From Reglan] AdvReac Other Verified 10/01/22 07:36 Sulfa (Sulfonamide AdvReac Vomiting Verified 10/01/22 07:36 Antibiotics) ziprasidone HCl [From Geodon] AdvReac tremors Verified 10/01/22 07:36 Family History Sister Myocardial infarction Colon cancer Mother Hypertension Arthritis Brain aneurysm Heart disease High cholesterol Sister Colon cancer Heart disease High cholesterol Hypertension Arthritis Grandmother Arthritis Diabetes CVA (cerebral vascular accident) Father Heart disease High cholesterol Hypertension Surgical History bladder sling Cataract extraction status History of esophagogastroduodenoscopy (EGD) History of laparoscopic cholecystectomy History of uterine suspension procedure Hx of colonoscopy left foot S/P carpal tunnel release Social History household members: none number of children: 4 current occupational status: unemployed history of recent travel: No Smoking Status: Current every day smoker tobacco type: cigarettes Tobacco: How many years used: 26 Electronic Cigarette Use: not used alcohol intake: never substance use type: does not use caffeine: Yes Type: coffee what type of physical activity do you participate in: none seatbelt use: never do you feel safe at home: Yes additional social history: single ROS ROS ED Constitutional Constitutional ED: Reports chills; Denies fever(s) Eyes Eyes: Denies blurry vision or change in vision ENT ENT ED: Reports rhinorrhea; Denies sore throat Cardiovascular Cardiovascular: Reports chest pain; Denies palpitations Respiratory/Chest Respiratory/Chest: Reports cough and dyspnea Gastrointestinal Gastrointestinal: Denies nausea or vomiting Genitourinary Genitourinary ED: Denies dysuria or hematuria Musculoskeletal Musculoskeletal: Reports neck pain; Denies back pain Integumentary Denies abscess or rash Neurologic Neurologic: Reports headache(s); Denies weakness Allergic/Immunologic Allergic/Immunologic ED: Denies mouth swelling or urticaria EXAM Physical Exam Const Vital Signs: 10/01/22 07:33 10/01/22 07:40 10/01/22 07:40 Temperature 97.9 F 97.9 F Temperature Source Oral Oral Pulse Rate 97 97 Respiratory Rate 20 H 20 H Respiratory Effort Respiratory Depth Shallow Respiratory Pattern Normal Blood Pressure 176/80 H 176/80 H Blood Pressure Mean 112 112 Pulse Ox 95 95 Oxygen Delivery Method Room Air Room Air Room Air 10/01/22 08:07 10/01/22 08:07 10/01/22 08:39 Temperature Temperature Source Pulse Rate 75 63 Respiratory Rate 24 H 13 Respiratory Effort Short of Breath Respiratory Depth Respiratory Pattern Tachypnea Tachypnea Blood Pressure Blood Pressure Mean Pulse Ox 97 Oxygen Delivery Method Room Air Room Air 10/01/22 08:39 10/01/22 09:06 10/01/22 10:12 Temperature 98.0 F 98.0 F 98.1 F Temperature Source Temporal Temporal Oral Pulse Rate 63 66 72 Respiratory Rate 17 16 19 H Respiratory Effort Respiratory Depth Respiratory Pattern Blood Pressure 143/61 H 127/58 H 108/78 Blood Pressure Mean 88 81 88 Pulse Ox 97 95 99 Oxygen Delivery Method Room Air Positive well nourished, well developed and obese General Appearance ED: well developed and NAD Nutritional Appearance: obese HEENT normocephalic and atraumatic Eyes PERRL and EOMs intact bilaterally Neck supple and no JVD Chest Wall palpation of chest normal Resp normal respiratory effort Effort and Inspection: Negative for respiratory distress Auscultation: rhonchi throughout and wheezes throughout Cardio regular rate, regular rhythm and no murmurs GI normal to inspection, nondistended, normoactive bowel sounds, soft to palpation, non-tender and non-distended Extremity normal to inspection General Extremety ED: Negative for edema or tenderness General Extremity: Negative for edema Neuro oriented x3, CN's II-XII intact bilaterally and no sensory deficits noted Sensorium / Orientation: awake and alert Motor Exam: strength 5/5 throughout Psych Mood & Affect: anxious MDM MDM MDM Narrative Medical decision making narrative: Patient was given an albuterol aerosol here. Patient given a dose of Tylenol. EKG was obtained. On my interpretation, it showed a normal sinus rhythm with a rate of 86. TX interval, QRS interval, and QTc intervals were all normal. [place] was normal. There are no acute ST or T wave changes. Portable 1 view chest x- ray was obtained. On my interpretation, lung jacobsen are clear. There is normal cardiac silhouette. Bony thorax is normal. There is no acute process noted. Radiologist also interpreted the x-ray and agrees. CBC was within normal limits. Comprehensive metabolic profile showed a slightly elevated creatinine of 1.21. D-dimer was slightly elevated at 0.77. High-sensitivity troponin was normal. Because of the elevated D-dimer, CTA of the chest was obtained. There was no evidence of pulmonary embolism or pneumonia. This was interpreted by the radiologist and reviewed by myself. Patient was advised of her findings. Patient was advised that this is most likely from her COVID. Patient was instructed to drink plenty of fluids. Patient was instructed to take Tylenol or ibuprofen as needed for any pain or fevers. Patient was instructed to follow-up with her primary care physician in 5 to 7 days. Patient understood and was agreeable with the plan. All questions were answered. Lab Data Attestation: I reviewed the patient's lab results. Labs: Laboratory Results - last 24 hr 10/01/22 10/01/22 10/01/22 08:00 08:00 08:00 WBC 5.7 RBC 5.13 Hgb 15.5 H Hct 45.8 MCV 89.3 MCH 30.2 MCHC 33.8 RDW Std Deviation 43.0 RDW Coeff of Yonathan 13.0 Plt Count 210 MPV 10.5 Immature Gran % (Auto) 0.400 Neut % (Auto) 67.4 Lymph % (Auto) 21.7 Lane % (Auto) 6.3 Eos % (Auto) 4.0 Baso % (Auto) 0.2 Absolute Neuts (auto) 3.8 Absolute Lymphs (auto) 1.23 Nucleated RBC % 0 D-Dimer Quant (PE/DVT) 0.77 H* Sodium 131 L Potassium 4.5 Chloride 100 Carbon Dioxide 26.0 Anion Gap 5 BUN 8 Creatinine 1.21 H Estim Creat Clear Calc 43.76 Est GFR (MDRD) Af Amer 59 L Est GFR (MDRD) Non-Af 49 L BUN/Creatinine Ratio 6.6 L Glucose 102 Calcium 9.2 Total Bilirubin 0.60 AST 27 ALT 40 Alkaline Phosphatase 117 Troponin I High Sens 7 Total Protein 7.1 Albumin 3.6 Globulin 3.5 Albumin/Globulin Ratio 1.0 Radiography Diagnostic Testing: Clinical Impression(s) from Imaging Studies Chest X-Ray 10/01/22 08:45 IMPRESSION: No radiographic evidence of acute cardiopulmonary disease and no interval change when compared to 06/08/2022. Electronically Signed: Matteo Agee MD at 9:04 EST , Chest CTA 10/01/22 09:07 IMPRESSION: 1. No CTA evidence of pulmonary thromboemboli, thoracic aortic aneurysm or dissection. 2. No CTA evidence of pneumonia or acute chest abnormality. 3. Prominent thickening in the left peripheral lung base is chronic and unchanged when compared to 02/28/2022. Electronically Signed: Matteo Agee MD at 9:42 EST , EKG Initial EKG: Attestation: I personally reviewed and interpreted this EKG as follows: Interpretation: Sinus Rhythm (86) and No Acute Injury Pattern Prior EKG tracings: available for review Prior: Unchanged (06/20/2022) Discharge Plan Triage Chief Complaint: Shortness of Breath ED Provider: Facundo Nolen Dx/Rx/DC Orders Clinical Impression: COVID-19, Morbid obesity Instructions: Coronavirus Disease 2019 (COVID-19): Caring for Yourself or Others Prescriptions: No Action nitroglycerin 0.4 mg tablet, sublingual 0.4 mg SUBLINGUAL PRN PRN (Reason: CHEST PAIN) Qty: 25 3RF ipratropium-albuterol 0.5 mg-3 mg(2.5 mg base)/3 mL solution for nebulization 3 ml inhalation Q4H PRN PRN (Reason: SOB &/OR WHEEZING) Qty: 180 6RF nicotine (polacrilex) 4 mg mini lozenge 4 mg buccal Q6H PRN (Reason: nicotine cravings) Qty: 81 1RF nystatin 100,000 unit/mL suspension 5 ml mucous membrane TID Qty: 250 1RF Rx Instructions: swish and swallow 5 cc three times per day for 10 days esomeprazole magnesium 40 mg capsule,delayed release(DR/EC) 40 mg PO DAILY Qty: 90 3RF prochlorperazine maleate [Compazine] 5 mg tablet 5 mg PO BID PRN (Reason: nausea and vomiting) Qty: 20 0RF ondansetron 4 mg tablet,disintegrating 4 mg PO Q8H PRN (Reason: nausea and vomiting) Qty: 60 1RF hydroxyzine HCl 10 mg tablet 10 mg PO Q8H PRN (Reason: anxiety) Qty: 30 0RF trazodone 50 mg tablet 50 mg PO QHS PRN aripiprazole [Abilify] 5 mg tablet 5 mg PO DAILY hydralazine 100 mg tablet 100 mg PO TID Qty: 90 6RF ibuprofen 400 mg tablet 400 mg PO Q8H PRN (Reason: pain) Qty: 12 0RF Paxlovid (EUA) 300 mg (150 mg x 2)-100 mg tablets,dose pack See Rx Instructions PO .COMPLEX Qty: 30 0RF Rx Instructions: take TWO 150 mg tablets of nirmatrelvir with ONE 100 mg tablet of ritonavir twice daily for 5 days PO benzonatate 100 mg capsule 100 mg PO BID PRN (Reason: cough) Qty: 20 0RF lidocaine 5 % adhesive patch,medicated 1 patch topical DAILY PRN (Reason: Pain) Rx Instructions: leave on most painful area for up to 12 hrs Desenex 2 % powder 1 applic TOPICAL BID levothyroxine 50 mcg tablet 50 mcg PO DAILY azelastine 205.5 mcg (0.15 %) spray,non-aerosol 1 spray intranasal BID Rx Instructions: administer into each nostril melatonin 10 mg capsule 10 mg PO QHS montelukast [Singulair] 10 mg tablet 10 mg PO QHS Qty: 30 11RF nifedipine 60 mg tablet extended release 24hr 30 mg PO BID Qty: 30 11RF Rx Instructions: Hold for SBP less than 120 mmHg albuterol sulfate 90 mcg/actuation HFA aerosol inhaler 2 puff inhalation Q4H PRN (Reason: shortness of breath or wheezing) Qty: 8.5 6RF Rx Instructions: administer with spacer aspirin 81 mg tablet,delayed release (DR/EC) 81 mg PO DAILY Qty: 90 1RF Rx Instructions: TAKE 1 TABLET BY MOUTH EACH AM AROUND 8 AM losartan 100 mg tablet 100 mg PO DAILY Qty: 90 1RF atorvastatin 40 mg tablet 40 mg PO QHS Qty: 90 1RF Hold Instructions: muscle aches polyethylene glycol 3350 [Miralax] 17 gram/dose powder 17 g PO BID PRN (Reason: Constipation) Qty: 238 1RF fluticasone propionate 50 mcg/actuation spray,suspension See Rx Instructions .ROUTE .COMPLEX Qty: 16 5RF Dose Instruction: USE 1 SPRAY IN EACH NOSTRIL TWICE A DAY FOR ALLERGIES Rx Instructions: USE 1 SPRAY IN EACH NOSTRIL TWICE A DAY FOR ALLERGIES loratadine 10 mg tablet 10 mg PO DAILY Qty: 90 1RF Rx Instructions: TAKE 1 TABLET BY MOUTH EVERY DAY spironolactone 25 mg tablet 25 mg PO QHS Qty: 90 1RF budesonide-formoterol [Symbicort] 160-4.5 mcg/actuation HFA aerosol inhaler 2 puff INHALATION BID Qty: 10.2 3RF guaifenesin 1,200 mg tablet extended release 12hr 600 mg PO BID Qty: 60 1RF furosemide [Lasix] 20 mg tablet 20 mg PO DAILY Qty: 30 11RF Spiriva Respimat 1.25 mcg/actuation mist 2 puff inhalation DAILY Qty: 4 6RF Primary Care Provider: Elizabeth Santamaria Referrals: Elizabeth Santamaria MD [Primary Care Provider] - 5-7 Days Disposition Disposition: Home, Self Care
--- NOTE | 2022-10-01 07:51 | EKG12_ITS ---
Test Reason : SOB Blood Pressure : / mmHG Vent. Rate : 086 BPM Atrial Rate : 086 BPM P-R Int : 164 ms QRS Dur : 076 ms QT Int : 358 ms P-R-T Axes : 045 -11 031 degrees QTc Int : 428 ms Normal sinus rhythm Normal ECG Confirmed by JOSEF SPEARS, BRENDA ([id number]), film editor ANAND HSIEH ([id number]) on 10/02/2022 12:51:40 PM Referred By: FIOLMENA Confirmed By:BRENDA BAHENA MD
[2022-10-01] MEDS: Acetaminophen 500 MG Tablet 1000 MG PO (08:04)
[2022-10-01] MEDS: Albuterol 2.5 MG/3 ML VIAL.NEB. INHALATION (08:04)
[2022-10-01 08:12] LABS: Absolute Lymphocyte Count 1.23 X10^3/uL (0.83-4.51); Absolute Neutrophil Count 3.8 X10^3/uL (2.0-7.7); Basophil# 0.01 X10^3/uL; Basophil% 0.2 % (0-1); Eosinophil# 0.23 X10^3/uL; Hematocrit 45.8 % (37-47); Hemoglobin 15.5 g/dL (12.0-15.0); Lymphocyte # 1.23 X10^3/ul (0.83-4.51); Lymphocyte % 21.7 % (19-41); Mean Corp Hgb Conc 33.8 g/dL (32-36); Mean Corpuscular Hgb 30.2 pg (27.0-32.0); Mean Corpuscular Volume 89.3 fL (81-99); Mean Platelet Vol. 10.5 fl (6.2-12.0); Monocyte# 0.36 X10^3/uL; Monocyte% 6.3 % (0-10); NRBC Flagged by Analyzer 0 % (0-5); Neutrophil # 3.83 X10^3/uL (2.7-7.7); Neutrophil % 67.4 % (47-70); Platelet Count 210 K/mm3 (150-450); Red Blood Count 5.13 M/mm3 (4.2-5.4); White Blood Count 5.7 K/mm3 (4.4-11.0)
[2022-10-01 08:36] LABS: AST(SGOT) 27 U/L (15-37); Alanine Aminotransfer ALT/SGPT 40 U/L (13-56); Albumin, Serum 3.6 g/dL (3.2-5.0); Alkaline Phosphatase 117 U/L (45-117); Anion Gap 5 (5-15); BUN 8 mg/dL (7-18); BUN/Creat Ratio 6.6 RATIO (10-20); Calcium,Total 9.2 mg/dL (8.5-10.1); Chloride 100 mmol/L (98-107); Creatinine, Serum 1.21 mg/dL (0.55-1.02); EST Glomerular Filtration Rate 49 mL/min (>60); Est Glom Filt Rate - Afr Amer 59 mL/min (>60); Estimated Creatinine Clearance 43.76 ml/min; Globulin 3.5 g/dL (2.2-4.2); Glucose 102 mg/dL (74-106); Potassium 4.5 mmol/L (3.5-5.1); Protein, Total 7.1 g/dL (6.4-8.2); Sodium Level 131 mmol/L (136-145); Troponin-I HS 7 pg/mL (3.0-54.0)
--- NOTE | 2022-10-01 08:45 | RAD_ITS ---
EXAM: XR CHEST, 1 VIEW CLINICAL INDICATION: Cough TECHNIQUE: Frontal view of the chest. This report was created using [email or web address] report generation technology. COMPARISON: 06/08/2022. FINDINGS: LUNGS AND PLEURAL SPACES: Unremarkable. No consolidation or edema. No pneumothorax. No effusion. HEART: Unremarkable. Cardiac silhouette not enlarged. MEDIASTINUM: Central airways and mediastinal contour are unremarkable. BONES/JOINTS: Unremarkable. SOFT TISSUES: Unremarkable. RAD/Chest 1 View (Portable) IMPRESSION: No radiographic evidence of acute cardiopulmonary disease and no interval change when compared to 06/08/2022. Electronically Signed: Matteo Agee MD at 9:04 EST ,
[2022-10-01 09:00] LABS: D-Dimer Quantitative (DVT/PE) 0.77 FEU/ug/m (0.27-0.49)
--- NOTE | 2022-10-01 09:07 | CT_ITS ---
EXAM: CT ANGIOGRAPHY CHEST WITHOUT AND WITH INTRAVENOUS CONTRAST CLINICAL INDICATION: Elevated D-dimer WITH COVID TECHNIQUE: Helically acquired angiography images were obtained of the chest without and with intravenous contrast. This CT exam was performed using one or more of the following dose reduction techniques: automated exposure control, adjustment of the mA and/or kV according to patient size, and/or use of iterative reconstruction technique. This report was created using [employer] report generation technology. MIP reconstructed images were created and reviewed. CONTRAST: IV 100mL Isovue-370 RADIATION DOSE: CTDIvol = 21.91 mGy, DLP = 711.72 mGy-cm COMPARISON: CTA chest 02/28/2022. FINDINGS: PULMONARY ARTERIES: Unremarkable. Normal in caliber. No evidence of pulmonary embolism. AORTA: Unremarkable. Normal in caliber. No evidence of dissection. GREAT VESSELS OF AORTIC ARCH: Unremarkable. Normal in caliber. No evidence of dissection. LUNGS AND PLEURAL SPACES: Prominent thickening in the left peripheral lung base is most likely scarring and unchanged. No mass. No pleural effusion or thickening. No pneumothorax. HEART: Cardiomegaly is unchanged. No pericardial effusion. No signs of right heart strain, ratio of right ventricle to left ventricle measures less than 1. MEDIASTINUM: Unremarkable. No mediastinal or hilar adenopathy. Esophagus is unremarkable. No hiatal hernia. THYROID: Unremarkable. No thyroid lesions. BONES/JOINTS: Unremarkable. No suspicious lytic or blastic abnormality. CT/CTA Chest W/WO Contrast IMPRESSION: 1. No CTA evidence of pulmonary thromboemboli, thoracic aortic aneurysm or dissection. 2. No CTA evidence of pneumonia or acute chest abnormality. 3. Prominent thickening in the left peripheral lung base is chronic and unchanged when compared to 02/28/2022. Electronically Signed: Matteo Agee MD at 9:42 EST ,
[2022-10-01] MEDS: DiphenhydrAMINE 50 MG/ML Syringe 25 MG IV (09:14)
[2022-10-01] MEDS: MethylPREDNISolone 125 MG/2 ML Vial 80 MG IV (09:14)
[2022-10-01] MEDS: 0.9% Normal Saline 1,000 ML 1000 ML IV (10:18)
== END 2022-10-01 11:31 | disposition home or self-care (01) ==
PROVIDERS: Emergency Provider Emergency Medicine; PCP Internal Medicine; Visit Provider Emergency Medicine
DX: U07.1 COVID-19 (principal); J44.9 Chronic obstructive pulmonary disease, unspecified; I13.0 Hypertensive heart and chronic kidney disease with heart failure and stage 1 through stage 4 chronic kidney disease, or unspecified chronic kidney disease; I50.9 Heart failure, unspecified; F31.9 Bipolar disorder, unspecified; I48.0 Paroxysmal atrial fibrillation; E66.01 Morbid (severe) obesity due to excess calories; N18.9 Chronic kidney disease, unspecified; E78.00 Pure hypercholesterolemia, unspecified; E03.9 Hypothyroidism, unspecified; G47.33 Obstructive sleep apnea (adult) (pediatric); F17.210 Nicotine dependence, cigarettes, uncomplicated; Z79.82 Long term (current) use of aspirin; Z79.899 Other long term (current) drug therapy; Z86.73 Personal history of transient ischemic attack (TIA), and cerebral infarction without residual deficits
CPT/HCPCS: 71045; 71275; 80053; 84484; 85025; 85379; 93005; 94640; 96361; 96374; 96375; 99285; J7030; Q9967; A4216

== ENCOUNTER 2022-10-04 08:04 | Outpatient (RCR) | payer MEDICAID, SELFPAY | END 2022-10-14 23:59 | LOC: NS 08:04 | PROVIDERS: PCP Internal Medicine; Referring Provider Internal Medicine; Visit Provider Internal Medicine | DX: Z71.3 Dietary counseling and surveillance (principal); E66.01 Morbid (severe) obesity due to excess calories; Z68.41 Body mass index [BMI] 40.0-44.9, adult ==

== ENCOUNTER 2022-10-04 08:38 | Emergency (ER) | payer MEDICAID, SELFPAY ==
[2022-10-04 08:39] VITALS: BP 134/87; PULSE 108; RESP 22; TEMP 36.3; O2SAT 100; BMI 44.4
[2022-10-04 08:41] VITALS: BP 125/74; PULSE 77; RESP 16; TEMP 36.3; O2SAT 95
[2022-10-04 08:55] VITALS: BP 145/82; PULSE 95; RESP 24; O2SAT 97
--- NOTE | 2022-10-04 09:22 | EKG12_ITS ---
Test Reason : PALP Blood Pressure : / mmHG Vent. Rate : 090 BPM Atrial Rate : 090 BPM P-R Int : 164 ms QRS Dur : 076 ms QT Int : 356 ms P-R-T Axes : 036 -09 030 degrees QTc Int : 435 ms Normal sinus rhythm Possible Left atrial enlargement Low voltage QRS Borderline ECG Confirmed by CHARLENE SPEARS, JAZMYNE ([id number]), senior editor ANAND HSIEH ([id number]) on 10/05/2022 8:23:29 AM Referred By: TL Confirmed By:JAZMYNE CHANG MD
--- NOTE | 2022-10-04 09:22 | RAD_ITS ---
STUDY: X-RAY CHEST REASON FOR EXAM: Female, 57 years old. Chest pain -- covid + TECHNIQUE: Single AP portable view of the chest. COMPARISON: Comparison is made with prior study 10/01/2022. FINDINGS: EKG electrodes are seen. The lungs are clear and expanded. There is no demonstrated pleural abnormality. Moderate cardiomegaly. Normal mediastinum and rosita. Normal visualized pulmonary arteries. Normal visualized aortic arch and descending thoracic aorta. Normal visualized thoracic spine. Normal visualized ribs, clavicles, and shoulders. There is no demonstrated abnormality of the visualized soft tissue structures of the upper abdomen. RAD/Chest 1 View (Portable) IMPRESSION: Cardiomegaly. The lungs are clear. Electronically Signed: Patrick Keita MD at 9:53 EST ,
--- NOTE | 2022-10-04 09:23 | ED.VIS.DYS ---
HPI History of Present Illness Chief Complaint: Shortness of Breath Informant: patient Narrative Narrative: Patient returns to ED increasing dyspnea chest discomfort. Patient seen 3 days ago due to COVID. She was worked up with negative CT of the chest. Diagnosed with asymptomatic COVID 8 days ago while getting her teeth pulled and passed out. She went to the ED at [facility] and was diagnosed. Nonvaccinated first infection. History of asthma. States the following day developed symptoms dyspnea chest discomfort worse with deep breaths. Therefore came to the ED. Tobacco history with asthma. She is not smoking since this happened. Reports since leaving heart feels bigger and is going to explode. She feels more fatigued. Decreased appetite. Denies any cardiac history. Prior similar symptoms: No PFSH PFSH Medical History Abdominal pain Allergic rhinitis Aortic valve insufficiency Arthralgia of right hip Arthritis Asthma Back pain Bilateral flank pain Bilateral foot pain Bipolar 1 disorder Blackout Bladder disease Cancer Cardiology follow-up encounter Chest pain CKD (chronic kidney disease) Colitis Conversion disorder with abnormal movement Convulsion, non-epileptic COPD, mild CPAP (continuous positive airway pressure) dependence Cyclic vomiting syndrome Cyst Debility Degenerative tear of meniscus of left knee Depression Diarrhea Dietary restriction Difficulty chewing Dysuria Easy bruising Enlarged aorta Excessive bleeding Gastric reflux Gastritis Heart failure High cholesterol Hip dislocation, right History of abnormal cervical Pap smear History of atrial fibrillation History of CHF (congestive heart failure) History of echocardiogram History of edema History of hiatal hernia History of IBS History of stress test History of ulceration HTN (hypertension) Hx of tilt table evaluation Hypertensive crisis without congestive heart failure Hypokalemia Hyponatremia Hypothyroidism Injury of head and neck Intertriginous dermatitis associated with moisture Kidney disease Left arm swelling Leg cramps Marijuana use Migraines Morbid obesity Myositis Nausea and vomiting Non-convulsive status epilepticus Non-rheumatic mitral regurgitation Nonrheumatic aortic (valve) insufficiency Open wound Oral candidiasis Orthostatic hypotension DAPHNE (obstructive sleep apnea) Osteoarthritis Osteoarthritis of left knee Osteoarthritis of right hip PAF (paroxysmal atrial fibrillation) Pain of left calf Peripheral artery disease Post-menopausal Psychosis Pulmonary embolism Sarcoidosis Schizo NEC, chrn/exacerb Schizophrenia Seizures Shortness of breath on exertion Smoker Stroke Stroke/cerebrovascular accident Syncope Thyroid disease TIA (transient ischemic attack) Tobacco abuse Venous insufficiency of both lower extremities Walker as ambulation aid Wears dentures Home Medications nitroglycerin 0.4 mg sublingual tablet 0.4 mg sublingual PRN PRN CHEST PAIN #25 tabs 12/05/21 [Rx Last Taken Unknown] lidocaine 5 % topical patch 1 patch topical DAILY PRN Pain 12/26/21 [History Last Taken 03/11/22] azelastine 205.5 mcg (0.15 %) nasal spray 1 spray intranasal BID allergies 02/27/22 [History Last Taken 03/13/22] levothyroxine 50 mcg tablet 50 mcg PO DAILY thyroid 02/27/22 [History Last Taken 03/13/22 22:18] melatonin 10 mg capsule 10 mg PO QHS insomnia 02/27/22 [History Last Taken 03/13/22] miconazole nitrate 2 % topical powder (Desenex) 1 applic topical BID rash 02/27/22 [History Last Taken 03/10/22] montelukast 10 mg tablet (Singulair) 10 mg PO QHS allergies #30 tabs 03/17/22 [Rx Last Taken Unknown] nifedipine 60 mg tablet,extended release 24 hr 30 mg PO BID bp #30 tabs 03/17/22 [Rx Last Taken Unknown] ondansetron 4 mg disintegrating tablet 4 mg PO Q8H PRN nausea and vomiting #60 tabs 03/23/22 [Rx Last Taken Unknown] prochlorperazine maleate 5 mg tablet (Compazine) 5 mg PO BID PRN nausea and vomiting #20 tabs 03/23/22 [Rx Last Taken Unknown] esomeprazole magnesium 40 mg capsule,delayed release 40 mg PO DAILY #90 caps 03/30/22 [Rx Last Taken Unknown] albuterol sulfate 90 mcg/actuation aerosol inhaler 2 puff inhalation Q4H PRN shortness of breath or wheezing #8.5 grams 05/09/22 [Rx Last Taken Unknown] ipratropium 0.5 mg-albuterol 3 mg (2.5 mg base)/3 mL nebulization soln 3 ml inhalation Q4H PRN PRN SOB &/OR WHEEZING #180 mL 06/07/22 [Rx Last Taken Unknown] nicotine (polacrilex) 4 mg buccal mini lozenge 4 mg buccal Q6H PRN nicotine cravings #81 ea 06/07/22 [Rx Last Taken Unknown] nystatin 100,000 unit/mL oral suspension 5 ml mucous membrane TID #250 mL 06/07/22 [Rx Last Taken Unknown] aspirin 81 mg tablet,delayed release 81 mg PO DAILY heart health #90 tabs 06/08/22 [Rx Last Taken Unknown] losartan 100 mg tablet 100 mg PO DAILY bp #90 tabs 06/08/22 [Rx Last Taken Unknown] hydroxyzine HCl 10 mg tablet 10 mg PO Q8H PRN anxiety #30 tabs 06/12/22 [Rx Last Taken Unknown] aripiprazole 5 mg tablet (Abilify) 5 mg PO DAILY 06/20/22 [History Last Taken Unknown] trazodone 50 mg tablet 50 mg PO QHS PRN 06/20/22 [History Last Taken Unknown] ibuprofen 400 mg tablet 400 mg PO Q8H PRN pain #12 tabs 06/26/22 [Rx Last Taken Unknown] atorvastatin 40 mg tablet 40 mg PO QHS cholesterol #90 tabs 06/30/22 [Rx Last Taken Unknown] polyethylene glycol 3350 17 gram/dose oral powder (Miralax) 17 g PO BID PRN Constipation #238 grams 08/01/22 [Rx Last Taken Unknown] fluticasone propionate 50 mcg/actuation nasal spray,suspension See Rx Instructions .Route .COMPLEX #16 grams 08/02/22 [Rx Last Taken Unknown] loratadine 10 mg tablet 10 mg PO DAILY allergies #90 tabs 08/02/22 [Rx Last Taken Unknown] spironolactone 25 mg tablet 25 mg PO QHS bp #90 tabs 08/02/22 [Rx Last Taken Unknown] hydralazine 100 mg tablet 100 mg PO TID blood pressure #90 tabs 08/17/22 [Rx Last Taken Unknown] budesonide-formoterol HFA 160 mcg-4.5 mcg/actuation aerosol inhaler (Symbicort) 2 puff inhalation BID wheezing #10.2 grams 08/25/22 [Rx Last Taken Unknown] furosemide 20 mg tablet (Lasix) 20 mg PO DAILY #30 tabs 08/25/22 [Rx Last Taken Unknown] guaifenesin 1,200 mg tablet, extended release 12 hr 600 mg PO BID allergies #60 tabs 08/25/22 [Rx Last Taken Unknown] tiotropium bromide 1.25 mcg/actuation mist for inhalation (Spiriva Respimat) 2 puff inhalation DAILY breathing #4 grams 08/25/22 [Rx Last Taken Unknown] benzonatate 100 mg capsule 100 mg PO BID PRN cough #20 caps 09/27/22 [Rx Last Taken Unknown] nirmatrelvir 300 mg (150 mg x2)-ritonavir 100 mg tablet,dose pack(EUA) (Paxlovid) See Rx Instructions PO .COMPLEX #30 tabs 09/27/22 [Rx Last Taken Unknown] Allergy/AdvReac Type Severity Reaction Status Date / Time adhesive tape Allergy Rash Verified 10/04/22 08:42 atropine sulfate Allergy Hives Verified 10/04/22 08:42 [From ] codeine phosphate Allergy breathing Verified 10/04/22 08:42 [From Tylenol-Codeine #3] problems divalproex sodium Allergy Unknown Verified 10/04/22 08:42 [From Depakote] guaifenesin Allergy Itching Verified 10/04/22 08:42 hydrocodone Allergy Itching Verified 10/04/22 08:42 hydromorphone HCl Allergy facial Verified 10/04/22 08:42 [From Dilaudid] blisters,itching hyoscyamine sulfate Allergy Hives Verified 10/04/22 08:42 [From ] Iodinated Contrast Media Allergy breathing Verified 10/04/22 08:42 [Iodinated Contrast Media - problems IV Dye] and my bp went up latex Allergy Rash Verified 10/04/22 08:42 pantoprazole sodium Allergy Rash Verified 10/04/22 08:42 [From Protonix] phenobarbital [From ] Allergy Hives Verified 10/04/22 08:42 promethazine HCl Allergy Anaphylaxis Verified 10/04/22 08:42 [From Phenergan] ramipril Allergy Unknown Verified 10/04/22 08:42 scopolamine hydrobromide Allergy Hives Verified 10/04/22 08:42 [From ] tramadol Allergy Itching Verified 10/04/22 08:42 ziprasidone mesylate Allergy Unknown Verified 10/04/22 08:42 [From Geodon] amlodipine AdvReac Vomiting Verified 10/04/22 08:42 levofloxacin [From Levaquin] AdvReac Itching Verified 10/04/22 08:42 metoclopramide [From Reglan] AdvReac Other Verified 10/04/22 08:42 Sulfa (Sulfonamide AdvReac Vomiting Verified 10/04/22 08:42 Antibiotics) ziprasidone HCl [From Geodon] AdvReac tremors Verified 10/04/22 08:42 Family History Sister Myocardial infarction Colon cancer Mother Hypertension Arthritis Brain aneurysm Heart disease High cholesterol Sister Colon cancer Heart disease High cholesterol Hypertension Arthritis Grandmother Arthritis Diabetes CVA (cerebral vascular accident) Father Heart disease High cholesterol Hypertension Surgical History bladder sling Cataract extraction status History of esophagogastroduodenoscopy (EGD) History of laparoscopic cholecystectomy History of uterine suspension procedure Hx of colonoscopy left foot S/P carpal tunnel release Social History household members: none number of children: 4 current occupational status: unemployed history of recent travel: No Smoking Status: Current every day smoker tobacco type: cigarettes Tobacco: How many years used: 26 Electronic Cigarette Use: not used alcohol intake: never substance use type: does not use caffeine: Yes Type: coffee what type of physical activity do you participate in: none seatbelt use: never do you feel safe at home: Yes additional social history: single ROS ROS ED Constitutional Constitutional ED: Denies chills, fever(s) or sweats Eyes Eyes: Denies change in vision ENT ENT ED: Denies dysphagia or sore throat Cardiovascular Cardiovascular: Reports chest pain; Denies leg edema, palpitations or racing heartbeat Respiratory/Chest Respiratory/Chest: Reports dyspnea; Denies cough or dyspnea on exertion Gastrointestinal Gastrointestinal: Denies abdominal pain, diarrhea, nausea or vomiting Genitourinary Genitourinary ED: Denies dysuria, hematuria or urinary frequency Musculoskeletal Musculoskeletal: Denies back pain, extremity pain or neck pain Integumentary Denies rash or wounds Neurologic Neurologic: Denies headache(s), paresthesias or weakness EXAM Physical Exam Const Vital Signs: 10/04/22 08:39 10/04/22 08:55 10/04/22 09:30 Temperature 97.3 F L Temperature Source Temporal Pulse Rate 108 H 95 77 Respiratory Rate 22 H 24 H 16 Respiratory Effort Respiratory Depth Respiratory Pattern Blood Pressure 134/87 H 145/82 H Blood Pressure Mean 102 103 Pulse Ox 100 97 95 Oxygen Delivery Method Room Air Room Air Room Air 10/04/22 08:41 10/04/22 09:31 Temperature 97.3 F L Temperature Source Temporal Pulse Rate 77 Respiratory Rate 16 Respiratory Effort Normal Non-Labored Respiratory Depth Normal Respiratory Pattern Normal Blood Pressure 125/74 H Blood Pressure Mean 91 Pulse Ox 95 Oxygen Delivery Method Room Air Room Air Positive well nourished and well developed General Appearance ED: well developed and NAD HEENT Reports moist mucous membranes normocephalic and atraumatic Eyes PERRL, EOMs intact bilaterally and conjunctivae normal General Eye ED: Yes normal appearance of both eyes Neck no lymphadenopathy and supple General: Negative for tenderness Chest Wall Chest: Negative for tenderness Resp normal respiratory effort and normal air movement Effort and Inspection: symmetric chest movement; Negative for respiratory distress Cardio regular rate, regular rhythm and no murmurs Peripheral Pulses: pulses 2+ throughout GI normal to inspection, nondistended, normoactive bowel sounds and non-tender Palpation: Negative for guarding or rebound tenderness present Back/Spine no CVA tenderness and no thoracic nor lumbar tenderness Extremity normal to inspection General Extremety ED: Negative for edema or tenderness General Extremity: Negative for edema Neuro oriented x3 and no sensory deficits noted Sensorium / Orientation: awake and alert Skin no rashes or lesions noted and no wounds MDM MDM MDM Narrative Medical decision making narrative: Patient currently has COVID still symptomatic. Left-sided chest pains. EKG cardiac work-up negative. 1 view chest x-ray reviewed myself read by radiology cardiomegaly with no acute process. She is not hypotensive. There is no EKG abnormalities concerning of pericardial effusion. She is not requiring oxygen on ambulation did not drop more than 93%. Reported slight tachycardia resolved with encouragement. She does have a pulse oximeter at home. Discussed monitoring her pulse ox dropped to low 88 with symptoms to return to ED otherwise continuing symptomatic management at home monitoring symptoms. All questions were answered. Lab Data Attestation: I reviewed the patient's lab results. Labs: Laboratory Results - last 24 hr 10/04/22 10/04/22 09:20 09:20 WBC 8.8 RBC 5.29 Hgb 15.9 H Hct 47.1 H MCV 89.0 MCH 30.1 MCHC 33.8 RDW Std Deviation 43.3 RDW Coeff of Yonathan 13.2 Plt Count 294 MPV 9.9 Sodium 134 L Potassium 3.7 Chloride 100 Carbon Dioxide 25.0 Anion Gap 9 BUN 12 Creatinine 1.50 H Estim Creat Clear Calc 35.30 Est GFR (MDRD) Af Amer 46 L Est GFR (MDRD) Non-Af 38 L BUN/Creatinine Ratio 8.0 L Glucose 109 H Calcium 9.1 Troponin I High Sens 10 Radiography Diagnostic Testing: Clinical Impression(s) from Imaging Studies Chest X-Ray 10/04/22 09:22 IMPRESSION: Cardiomegaly. The lungs are clear. Electronically Signed: Patrick Keita MD at 9:53 EST , EKG Initial EKG: Attestation: I personally reviewed and interpreted this EKG as follows: Comments: Sinus rate of 90, no ST or T wave changes. Discharge Plan Triage Chief Complaint: Shortness of Breath ED Provider: Justin Shahid Dx/Rx/DC Orders Clinical Impression: Chest pain, COVID-19 virus infection Instructions: Coronavirus Disease 2019 (COVID-19): Caring for Yourself or Others, ED Chest Pain, Uncertain Cause Prescriptions: No Action nitroglycerin 0.4 mg tablet, sublingual 0.4 mg SUBLINGUAL PRN PRN (Reason: CHEST PAIN) Qty: 25 3RF ipratropium-albuterol 0.5 mg-3 mg(2.5 mg base)/3 mL solution for nebulization 3 ml inhalation Q4H PRN PRN (Reason: SOB &/OR WHEEZING) Qty: 180 6RF nicotine (polacrilex) 4 mg mini lozenge 4 mg buccal Q6H PRN (Reason: nicotine cravings) Qty: 81 1RF nystatin 100,000 unit/mL suspension 5 ml mucous membrane TID Qty: 250 1RF Rx Instructions: swish and swallow 5 cc three times per day for 10 days esomeprazole magnesium 40 mg capsule,delayed release(DR/EC) 40 mg PO DAILY Qty: 90 3RF prochlorperazine maleate [Compazine] 5 mg tablet 5 mg PO BID PRN (Reason: nausea and vomiting) Qty: 20 0RF ondansetron 4 mg tablet,disintegrating 4 mg PO Q8H PRN (Reason: nausea and vomiting) Qty: 60 1RF hydroxyzine HCl 10 mg tablet 10 mg PO Q8H PRN (Reason: anxiety) Qty: 30 0RF trazodone 50 mg tablet 50 mg PO QHS PRN aripiprazole [Abilify] 5 mg tablet 5 mg PO DAILY hydralazine 100 mg tablet 100 mg PO TID Qty: 90 6RF ibuprofen 400 mg tablet 400 mg PO Q8H PRN (Reason: pain) Qty: 12 0RF Paxlovid (EUA) 300 mg (150 mg x 2)-100 mg tablets,dose pack See Rx Instructions PO .COMPLEX Qty: 30 0RF Rx Instructions: take TWO 150 mg tablets of nirmatrelvir with ONE 100 mg tablet of ritonavir twice daily for 5 days PO benzonatate 100 mg capsule 100 mg PO BID PRN (Reason: cough) Qty: 20 0RF lidocaine 5 % adhesive patch,medicated 1 patch topical DAILY PRN (Reason: Pain) Rx Instructions: leave on most painful area for up to 12 hrs Desenex 2 % powder 1 applic TOPICAL BID levothyroxine 50 mcg tablet 50 mcg PO DAILY azelastine 205.5 mcg (0.15 %) spray,non-aerosol 1 spray intranasal BID Rx Instructions: administer into each nostril melatonin 10 mg capsule 10 mg PO QHS montelukast [Singulair] 10 mg tablet 10 mg PO QHS Qty: 30 11RF nifedipine 60 mg tablet extended release 24hr 30 mg PO BID Qty: 30 11RF Rx Instructions: Hold for SBP less than 120 mmHg albuterol sulfate 90 mcg/actuation HFA aerosol inhaler 2 puff inhalation Q4H PRN (Reason: shortness of breath or wheezing) Qty: 8.5 6RF Rx Instructions: administer with spacer aspirin 81 mg tablet,delayed release (DR/EC) 81 mg PO DAILY Qty: 90 1RF Rx Instructions: TAKE 1 TABLET BY MOUTH EACH AM AROUND 8 AM losartan 100 mg tablet 100 mg PO DAILY Qty: 90 1RF atorvastatin 40 mg tablet 40 mg PO QHS Qty: 90 1RF Hold Instructions: muscle aches polyethylene glycol 3350 [Miralax] 17 gram/dose powder 17 g PO BID PRN (Reason: Constipation) Qty: 238 1RF fluticasone propionate 50 mcg/actuation spray,suspension See Rx Instructions .ROUTE .COMPLEX Qty: 16 5RF Dose Instruction: USE 1 SPRAY IN EACH NOSTRIL TWICE A DAY FOR ALLERGIES Rx Instructions: USE 1 SPRAY IN EACH NOSTRIL TWICE A DAY FOR ALLERGIES loratadine 10 mg tablet 10 mg PO DAILY Qty: 90 1RF Rx Instructions: TAKE 1 TABLET BY MOUTH EVERY DAY spironolactone 25 mg tablet 25 mg PO QHS Qty: 90 1RF budesonide-formoterol [Symbicort] 160-4.5 mcg/actuation HFA aerosol inhaler 2 puff INHALATION BID Qty: 10.2 3RF guaifenesin 1,200 mg tablet extended release 12hr 600 mg PO BID Qty: 60 1RF furosemide [Lasix] 20 mg tablet 20 mg PO DAILY Qty: 30 11RF Spiriva Respimat 1.25 mcg/actuation mist 2 puff inhalation DAILY Qty: 4 6RF Primary Care Provider: Elizabeth Snatamaria Referrals: Elizabeth Santamaria MD [Primary Care Provider] - 3-5 Days Activity Restrictions/Additional Instructions: Cardiac work-up negative. Continue to monitor pulse ox. If drops below 88% with symptoms return for reevaluation. Otherwise follow-up with your doctor. Disposition Disposition: Home, Self Care Discharge Date/Time: 10/04/22 12:11
[2022-10-04 09:30] VITALS: PULSE 77; RESP 16; O2SAT 95
[2022-10-04 09:31] VITALS: O2SAT 97
[2022-10-04 09:31] LABS: Hematocrit 47.1 % (37-47); Hemoglobin 15.9 g/dL (12.0-15.0); Mean Corp Hgb Conc 33.8 g/dL (32-36); Mean Corpuscular Hgb 30.1 pg (27.0-32.0); Mean Platelet Vol. 9.9 fl (6.2-12.0); Platelet Count 294 K/mm3 (150-450); RBC Distribution Width CV 13.2 % (11.6-14.6); RBC Distribution Width SD 43.3 fl (35.1-43.9); Red Blood Count 5.29 M/mm3 (4.2-5.4); White Blood Count 8.8 K/mm3 (4.4-11.0)
[2022-10-04 09:45] LABS: Anion Gap 9 (5-15); BUN 12 mg/dL (7-18); Calcium,Total 9.1 mg/dL (8.5-10.1); Chloride 100 mmol/L (98-107); EST Glomerular Filtration Rate 38 mL/min (>60); Est Glom Filt Rate - Afr Amer 46 mL/min (>60); Glucose 109 mg/dL (74-106); Potassium 3.7 mmol/L (3.5-5.1); Sodium Level 134 mmol/L (136-145); Troponin-I HS 10 pg/mL (3.0-54.0)
--- NOTE | 2022-10-04 11:20 | NURSING ---
pt up to amb and hr up to 125 with activity. rr up to 28-30 and encouraged to slow breathing. pt seeming more anxious. spo2 did not drop below 93% however when up and walked to farther bathroom and back to room.
== END 2022-10-04 12:11 | disposition home or self-care (01) ==
PROVIDERS: Emergency Provider Emergency Medicine; PCP Internal Medicine; Visit Provider Emergency Medicine
DX: R07.9 Chest pain, unspecified (principal); U07.1 COVID-19; N18.9 Chronic kidney disease, unspecified; G47.33 Obstructive sleep apnea (adult) (pediatric); F17.210 Nicotine dependence, cigarettes, uncomplicated; Z86.73 Personal history of transient ischemic attack (TIA), and cerebral infarction without residual deficits; Z86.711 Personal history of pulmonary embolism
CPT/HCPCS: 71045; 80048; 84484; 85027; 93005; 96360; 96361; 99284; J7040; A4216

== ENCOUNTER → 2022-11-27 | Outpatient (CLI) | payer MEDICAID, SELFPAY ==
[2022-11-27 08:56] LABS: Absolute Lymphocyte Count 1.55 X10^3/uL (0.83-4.51); Absolute Neutrophil Count 5.4 X10^3/uL (2.0-7.7); Basophil# 0.03 X10^3/uL; Basophil% 0.4 % (0-1); Eosinophil# 0.35 X10^3/uL; Eosinophils% 4.5 % (0-5); Hematocrit 45.6 % (37-47); Hemoglobin 15.3 g/dL (12.0-15.0); Lymphocyte # 1.55 X10^3/ul (0.83-4.51); Lymphocyte % 19.9 % (19-41); Mean Corp Hgb Conc 33.6 g/dL (32-36); Mean Corpuscular Hgb 30.4 pg (27.0-32.0); Mean Corpuscular Volume 90.5 fL (81-99); Mean Platelet Vol. 9.7 fl (6.2-12.0); Monocyte# 0.46 X10^3/uL; Monocyte% 5.9 % (0-10); NRBC Flagged by Analyzer 0 % (0-5); Neutrophil # 5.35 X10^3/uL (2.7-7.7); Neutrophil % 68.9 % (47-70); Platelet Count 290 K/mm3 (150-450); RBC Distribution Width CV 13.6 % (11.6-14.6); RBC Distribution Width SD 45.4 fl (35.1-43.9); Red Blood Count 5.04 M/mm3 (4.2-5.4); White Blood Count 7.8 K/mm3 (4.4-11.0)
[2022-12-01 02:07] LABS: Aspirgillus flavus Negative (Neg:<1:1); Aspirgillus fumigatus Negative (Neg:<1:1); Aspirgillus niger Negative (Neg:<1:1)
[2022-12-01 17:27] LABS: Immunoglobulin E 33 IU/mL (6-495)
[2022-12-02 19:07] LABS: Alternaria tenuis <0.10 kU/L (Class 0); Ash, White <0.10 kU/L (Class 0); Aspergillus fumigatus <0.10 kU/L (Class 0); Bermuda Grass <0.10 kU/L (Class 0); Birch <0.10 kU/L (Class 0); Black Walnut <0.10 kU/L (Class 0); Cat Hair / Dander,Stand <0.10 kU/L (Class 0); Cedar, Mountain <0.10 kU/L (Class 0); Cladosporium herbarum <0.10 kU/L (Class 0); Cockroach, American <0.10 kU/L (Class 0); Cottonwood <0.10 kU/L (Class 0); D farinae Mite <0.10 kU/L (Class 0); D pteronyssinus <0.10 kU/L (Class 0); Dog Epithelia <0.10 kU/L (Class 0); Elm, American White <0.10 kU/L (Class 0); Immunoglobulin E 33 IU/mL (6-495); Maple/Box Elder <0.10 kU/L (Class 0); Mulberry, White <0.10 kU/L (Class 0); Oak, White <0.10 kU/L (Class 0); Pecan <0.10 kU/L (Class 0); Penicillium Notatum <0.10 kU/L (Class 0); Pigweed, Rough <0.10 kU/L (Class 0); Ragweed, Short/Common <0.10 kU/L (Class 0); Russian Thistle <0.10 kU/L (Class 0); Sheep Sorrel <0.10 kU/L (Class 0); Sycamore, American <0.10 kU/L (Class 0); Timothy Grass <0.10 kU/L (Class 0)
[2022-12-02 22:20] LABS: Mouse Urine <0.10 kU/L (Class 0)
== END | disposition home or self-care (01) ==
PROVIDERS: PCP Internal Medicine; Referring Provider Internal Medicine Critical Care Medicine; Visit Provider Internal Medicine Critical Care Medicine
DX: J45.909 Unspecified asthma, uncomplicated (principal)
CPT/HCPCS: 36415; 82785; 85025; 86003; 86606

== ENCOUNTER → 2023-01-16 | Outpatient (CLI) | payer MEDICAID, SELFPAY ==
[2023-01-16 13:03] VITALS: PULSE 102; PULSE 109; PULSE 110; PULSE 113; PULSE 114; PULSE 116; PULSE 79; PULSE 92; O2SAT 93; O2SAT 94; O2SAT 95
--- NOTE | 2023-01-16 13:05 | CPS ---
At the third minute patient took a short 15 second break due to being dizzy and short of breath. Patient stopped testing at 5 minutes and 35 seconds due to stating that she felt like she could fall from her legs being weak, dizziness, and shortness of breath. Patient stated that her shortness of breath was only moderate but was one of the main reasons she wanted to stop.
--- NOTE | 2023-01-17 10:11 | PCM.PSN.6M ---
PSN 6 Minute Walk Test 6 Minute Walk Test 6 Minute Walk Test: 6 Minute Walk Test PSN:6-Minute Walk Test Start: 01/16/23 13:03 Freq: Status: Active Protocol: [id number] Document 01/16/23 13:03 [email or web address] (Rec: 01/16/23 13:11 [email or web address] [id number]) 6 Minute Walk Test Date Performed 01/16/23 Time Performed 13:00 Height 5 ft 4 in Weight: 252 lb Weight in Pounds 252.[address]: Elizabeth Santamaria Assistive device used: None Pre-test Oxygen Delivery Method Room Air Pulse Ox (%) 94 Pulse Rate (60-100 beats/min) 92 Dyspnea Yanique Scale (0-10) 0 Exertion Yanique Scale (6-20) 6 1st minute Oxygen Delivery Method Room Air Pulse Ox (%) 93 Pulse Rate (60-100 beats/min) 102 H 2nd minute Oxygen Delivery Method Room Air Pulse Ox (%) 94 Pulse Rate (60-100 beats/min) 110 H 3rd minute Oxygen Delivery Method Room Air Pulse Ox (%) 94 Pulse Rate (60-100 beats/min) 113 H Number of Rests Taken 1 4th minute Oxygen Delivery Method Room Air Pulse Ox (%) 94 Pulse Rate (60-100 beats/min) 109 H 5th minute Oxygen Delivery Method Room Air Pulse Ox (%) 94 Pulse Rate (60-100 beats/min) 114 H 6th minute Oxygen Delivery Method Room Air Pulse Ox (%) 94 Pulse Rate (60-100 beats/min) 116 H Dyspnea Yanique Scale (0-10) 4 Exertion Yanique Scale (6-20) 14 Post-test Oxygen Delivery Method Room Air Pulse Ox (%) 95 Pulse Rate (60-100 beats/min) 79 Full Laps Walked 14 Partial Lap, Number of Tiles Walked 0 Total Distance Walked (ft) 826 01/16/23 13:05 Cardiopulmonary Services by Paz Ramachandran At the third minute patient took a short 15 second break due to being dizzy and short of breath. Patient stopped testing at 5 minutes and 35 seconds due to stating that she felt like she could fall from her legs being weak, dizziness, and shortness of breath. Patient stated that her shortness of breath was only moderate but was one of the main reasons she wanted to stop. Initialized on 01/16/23 13:05 - END OF NOTE Interpretation Interpretation: The patient ambulated 826 feet over the course of 6 minutes beginning on room air without assistive devices. Pretesting oxygen saturation was noted to be 94% on room air. With ambulation, the flo oxygen saturation was 93%. There was no significant exertional oxygen desaturation. Recommendations Recommendations: There is no indication for the use of supplemental oxygen at this time.
== END | disposition home or self-care (01) ==
LOC: PSN 12:35
PROVIDERS: PCP Internal Medicine; Visit Provider Internal Medicine
DX: R06.02 Shortness of breath (principal); J44.9 Chronic obstructive pulmonary disease, unspecified
CPT/HCPCS: 94618

== ENCOUNTER → 2023-03-01 | Outpatient (CLI) | payer MEDICAID, SELFPAY ==
[2023-03-01 10:52] LABS: AST(SGOT) 21 U/L (15-37); Alanine Aminotransfer ALT/SGPT 28 U/L (13-56); Albumin, Serum 3.6 g/dL (3.2-5.0); Alkaline Phosphatase 109 U/L (45-117); Anion Gap 2 (5-15); BUN 16 mg/dL (7-18); BUN/Creat Ratio 12.3 RATIO (10-20); Bilirubin, Direct 0.06 mg/dL (0.00-0.30); Calcium,Total 9.3 mg/dL (8.5-10.1); Chloride 105 mmol/L (98-107); Cholesterol 193 mg/dL (200); EST Glomerular Filtration Rate 45 mL/min (>60); Est Glom Filt Rate - Afr Amer 54 mL/min (>60); Globulin 3.2 g/dL (2.2-4.2); Glucose 93 mg/dL (74-106); High Density Lipoprotein 50 mg/dL; Potassium 4.4 mmol/L (3.5-5.1); Protein, Total 6.8 g/dL (6.4-8.2); Sodium Level 136 mmol/L (136-145); Triglycerides 114 mg/dL; Very Low Density Lipoprotein 23 mg/dL (5-40)
--- NOTE | 2023-03-01 14:39 | CT_ITS ---
STUDY: LOW DOSE CT LUNG CANCER SCREENING REASON FOR EXAM: Female, 58 years old. 58 pack-year history. Now smokes half a pack a day. Shortness of breath. RADIATION DOSAGE (If Supplied By Facility): CTDIvol = ( 4.02 ) mGy, DLP = ( 135.92 ) mGycm TECHNIQUE: No contrast was administered. Low dose technique was utilized (average mAS-38 and kVp 120). 1.25 mm axial source images with a slice interval of 1.25-mm were reconstructed in lung windows. 2.5 mm axial source images with a slice interval of 2.5-mm were reconstructed in lung windows. 5.0 mm axial source images with a slice interval of 5.0-mm were reconstructed in soft tissue windows. COMPARISON: CTA of the chest, October 01, 2022. Low dose CT lung screening, September 13, 2021. NODULES: Nodule #: 1 Density: Solid Lung location: Right lower lobe lobe: 1.3 cm from pleura Location in series: Series Number: 2 Image: 168 Size - D1 x D2 mm: 9 x 6 mm: 8 mm average diameter Margin: Irregular Shape: Oval Calcification: Yes Fat: No Temporal comparison: Stable Total lung nodules (excluding granulomas): Emphysema: No. Minimal linear atelectasis at the left lung base. Endobronchial lesion: None Aorta: Normal CORONARY ARTERIES: Coronary artery calcification not Heart: Borderline enlarged. Pulmonary artery: Normal Mediastinal nodes: Calcified right hilar lymph nodes. There is no mediastinal lymphadenopathy. Other chest and abdominal findings: Mild degenerative changes of the thoracic spine. CT/Low Dose CT Lung Screening IMPRESSION: Lung-RADS category 1 - Continue annual screening with LDCT in 12 months. IMPORTANT NOTES FOR USE: ACR Lung-RADS Version 1.1 Assessment Categories Release Date: 2018 Category: Coded 0-4 bases on nodule(s) with highest degree of suspicion. Negative screen is defined as categories 1 and 2; a positive screen is defined as categories 3 and 4. Category 3 and 4A nodules that are unchanged on interval CT should be coded as category 2, and individuals returned to screening in 12 months. Category 4X: Category 3 or 4 nodules with additional imaging findings that increase the suspicion of lung cancer, such as spiculation, GGN that doubles in size in 1 year, enlarged lymph notes, etc. Category Modifiers: S (significant finding unrelated to lung cancer) Electronically Signed: Crow Vyas DO at 23:05 EDT Reading Location ID and State: [address] [place] [address] Tel [phone], Service support ,
== END | disposition home or self-care (01) ==
LOC: CT 14:38
PROVIDERS: Nurse Practitioner Gerontology; PCP Internal Medicine; Referring Provider Nurse Practitioner Acute Care; Visit Provider Nurse Practitioner Acute Care
DX: F17.210 Nicotine dependence, cigarettes, uncomplicated (principal); E78.5 Hyperlipidemia, unspecified; R06.09 Other forms of dyspnea
CPT/HCPCS: 36415; 71271; 80048; 80061; 80076

== ENCOUNTER → 2023-05-14 | Outpatient (CLI) | payer MEDICAID, SELFPAY ==
--- NOTE | 2023-05-14 16:06 | STRESSREP ---
Stress Test Report Pharmacologic myocardial perfusion stress test. 58-year-old lady with a history of chest pain Resting EKG demonstrates sinus bradycardia with a rate of 51 bpm. Resting blood pressure is 118/74 mmHg. 0.4 mg of regadenoson was infused per usual protocol followed by rapid intravenous saline flush injection. Continuous EKG monitoring was performed. The maximum heart rate was 75 bpm which was 46% of max impacted heart rate the maximum workload was 1 metabolic equivalent. At rest there were no ST or T wave changes noted to suggest ischemia and at peak infusion nonspecific ST changes were noted which did not meet the criteria for ischemia. No clinical angina is noted. The final blood pressure was 114/60 mmHg. Myocardial perfusion protocol. 14.8 mCi of technetium 99m sestamibi was injected at rest. 0.4 mg of regadenoson was infused per usual protocol. At peak infusion 44.9 mCi of technetium 99m sestamibi was injected stress images were obtained stress and rest images were reconstructed and compared in the short axis vertical long and horizontal long axis. Gated images were also obtained. Perfusion SPECT analysis: Review of the stress images demonstrate normal uptake of tracer noted in all areas of the myocardium. The resting images similar demonstrated normal uptake of tracer noted in all areas of the myocardium. No areas of reversibility are noted to suggest ischemia and no previous infarct is noted. Gated SPECT analysis: The gated ejection fraction is 76%. Conclusion: Normal pharmacologic myocardial perfusion stress test. Preserved ejection fraction.
--- NOTE | 2023-05-16 06:17 | ECHOD_ITS ---
Reason For Study: SOB, Chest pain Procedure This was a 2D Doppler, Color Flow transthoracic echocardiogram. Exam performed in department. Left Ventricle Normal LV size. Mild concentric left ventricular hypertrophy. Left ventricular systolic function is normal. The estimated ejection fraction is 65 %. Normal diastology for age. No regional wall motion abnormalities noted. Right Ventricle Normal RV size. Normal systolic function. Atria The left and right atria are normal. Mitral Valve The mitral valve is structurally normal. No prolapse or stenosis seen. Trivial mitral valve insufficiency. Tricuspid Valve Normal tricuspid valve. Trivial tricuspid valve insufficiency. Unable to estimate RV systolic pressure due to insufficient tricuspid regurgitant envelope. Aortic Valve Trisinus/trileaflet aortic valve. Mild focal aortic valve thickening. Mild aortic stenosis. Mild (1+) aortic valve insufficiency. Pulmonic Valve Normal pulmonic valve. Trivial pulmonic valve insufficiency. Great Vessels Normal aortic root. Pericardium/Pleural No pericardial effusion. MMode/2D Measurements & Calculations LVIDd: 4.9 cm IVSd: 1.3 cm LVOT diam: 2.3 cm LVIDs: 2.3 cm LVPWd: 1.2 cm LVOT area: 4.3 cm2 RVDd: 3.0 cm FS: 53.4 % Ao root diam: 3.7 cm LAV(MOD-bp): 62.4 ml LVAd ap4: 31.3 cm2 LAV(MOD-bp) Indexed: 28.5 ml/m2 LVLd ap4: 8.6 cm LAV(MOD-sp2): 57.3 ml EDV(MOD-sp4): 95.9 ml LAV(MOD-sp4): 65.1 ml EDV(sp4-el): 96.7 ml LVAs ap4: 14.9 cm2 LVLs ap4: 7.0 cm ESV(MOD-sp4): 28.4 ml ESV(sp4-el): 26.8 ml EF(MOD-sp4): 70.3 % EF(sp4-el): 72.3 % LVAd ap2: 36.0 cm2 SV(MOD-sp4): 67.4 ml SV(MOD-sp2): 96.1 ml LVLd ap2: 8.9 cm EDV(MOD-sp2): 125.8 ml EDV(sp2-el): 123.4 ml LVAs ap2: 15.9 cm2 LVLs ap2: 7.6 cm ESV(MOD-sp2): 29.7 ml ESV(sp2-el): 28.2 ml EF(MOD-sp2): 76.4 % SV(sp4-el): 69.9 ml LA dimension(2D): 3.8 cm LA A4 area: 20.9 cm2 RA A4 area: 15.5 cm2 TAPSE: 2.4 cm Time Measurements MV dec time: 0.21 sec Doppler Measurements & Calculations MV E max govind: 71.8 cm/sec Lat Peak E' Govind: 10.5 cm/sec Med Peak E' Govind: 6.5 cm/sec MV A max govind: 91.8 cm/sec E/E' lat: 6.8 E/E' med: 11.0 MV E/A: 0.78 Ao V2 max: 234.2 cm/sec AI max govind: 372.5 cm/sec MV dec slope: 347.6 cm/sec2 Ao max P.0 mmHg AI max P.7 mmHg Ao V2 mean: 156.9 cm/sec Ao mean P.3 mmHg AI dec slope: 152.2 cm/sec2 Ao V2 VTI: 49.2 cm AI P1/2t: 717.0 msec PA V2 max: 115.5 cm/sec ECHO/Echo Complete Interpretation Summary The estimated ejection fraction is 65 %. Mild concentric left ventricular hypertrophy. Mild aortic stenosis. Mild (1+) aortic valve insufficiency. Ordering Physician: Ceci Fernando Referring Physician: Elizabeth Santamaria Performed By: Adriane Thakkar RDCS
== END | disposition home or self-care (01) ==
PROVIDERS: PCP Internal Medicine; Referring Provider Internal Medicine Cardiovascular Disease; Visit Provider Internal Medicine Cardiovascular Disease
DX: R00.2 Palpitations (principal); R42 Dizziness and giddiness; R07.9 Chest pain, unspecified; R53.83 Other fatigue; R06.09 Other forms of dyspnea
CPT/HCPCS: 78452; 93017; A9500; A4216; J2785

== ENCOUNTER → 2023-05-16 | Outpatient (CLI) | payer MEDICAID, SELFPAY | END | disposition home or self-care (01) | LOC: CVS 08:56 | PROVIDERS: PCP Internal Medicine; Referring Provider Internal Medicine Cardiovascular Disease; Visit Provider Internal Medicine Cardiovascular Disease | DX: R07.9 Chest pain, unspecified (principal); R06.02 Shortness of breath; R00.2 Palpitations; R42 Dizziness and giddiness; R53.83 Other fatigue | CPT/HCPCS: 93306 ==

== ENCOUNTER → 2023-05-24 | Outpatient (CLI) | payer MEDICAID, SELFPAY ==
[2023-05-24 10:17] LABS: CRP < 2.90 mg/L (0.0-3.0); Rheumatoid Factor < 10.0 IU/mL (<15)
[2023-05-24 10:55] LABS: Absolute Lymphocyte Count 0.63 X10^3/uL (0.83-4.51); Absolute Neutrophil Count 9.3 X10^3/uL (2.0-7.7); Basophil# 0.03 X10^3/uL; Basophil% 0.3 % (0-1); Eosinophil# 0.01 X10^3/uL; Eosinophils% 0.1 % (0-5); Hematocrit 45.8 % (37-47); Hemoglobin 15.4 g/dL (12.0-15.0); Lymphocyte # 0.63 X10^3/ul (0.83-4.51); Lymphocyte % 6.2 % (19-41); Mean Corp Hgb Conc 33.6 g/dL (32-36); Mean Corpuscular Volume 89.3 fL (81-99); Mean Platelet Vol. 10.5 fl (6.2-12.0); Monocyte# 0.18 X10^3/uL; Monocyte% 1.8 % (0-10); NRBC Flagged by Analyzer 0 % (0-5); Neutrophil # 9.29 X10^3/uL (2.7-7.7); Neutrophil % 90.7 % (47-70); Platelet Count 305 K/mm3 (150-450); RBC Distribution Width CV 13.9 % (11.6-14.6); RBC Distribution Width SD 45.1 fl (35.1-43.9); Red Blood Count 5.13 M/mm3 (4.2-5.4); White Blood Count 10.2 K/mm3 (4.4-11.0)
[2023-05-24 11:03] LABS: Erythrocyte Sedimentation Rate 6 mm/hr (0-30)
[2023-05-24 11:29] LABS: Syphilis Antibodies Non-reactive
[2023-05-31 12:09] LABS: Angiotensin Convert Enzyme 29 U/L (14-82); CCP IgG Antibodies 5 units (0-19); Cytoplasmic Ab (C-ANCA) <1:20 titer (Neg:<1:20); HLA B27 Negative (.); Perinuclear Ab (P-ANCA) <1:20 titer (Neg:<1:20); QNTFERON TB Mitogen Value 4.04 IU/mL (.); QNTFERON TB Nil Value 0.02 IU/mL (.); QNTFERON TB1+ Ag Value 0.06 IU/mL (.); QNTFERON TB2+ Ag Value 0.04 IU/mL (.); QNTIFERON TB Positive Criteria Negative (Negative)
== END | disposition home or self-care (01) ==
PROVIDERS: Referring Provider Ophthalmology; Visit Provider Ophthalmology
DX: H20.023 Recurrent acute iridocyclitis, bilateral (principal)
CPT/HCPCS: 36415; 81374; 82164; 85025; 85652; 86140; 86200; 86256; 86431; 86480; 86780

== ENCOUNTER → 2023-06-19 | Outpatient (CLI) | payer MEDICAID, SELFPAY ==
--- NOTE | 2023-06-19 08:34 | BI_ITS ---
MAMMOGRAPHY - BILATERAL SCREENING REASON FOR EXAM: Female, 58 years old. Routine annual screening examination. PERTINENT HISTORY: Non-contributory. TECHNIQUE: Digital bilateral breast july (3D mammographic acquisition) in the CC and MLO projections. 2-D mediolateral oblique (MLO) and craniocaudad (CC) views of both breasts were obtained. CAD: Full Field Digital Mammography with Computer Added Detection was performed. COMPARISON: Comparison is made with prior study dated June 02, 2022 and May 18, 2021. FINDINGS: Breast Composition: The breasts are almost entirely fatty. There are no dominant masses or suspicious calcifications. Stable small benign appearing bilateral axillary lymph nodes. No other significant abnormalities are identified. There has been no significant change since the prior study. BI/SCRN MAMM (CAD)W/JULY BILAT IMPRESSION: Stable bilateral screening mammogram. Yearly follow-up mammogram recommended. (A) ASSESSMENT CATEGORY: BIRADS Category 2: Benign. A letter regarding these results will be sent to the patient by the facility within 30 days. Approximately 10% of breast cancers are not detected by mammography. A normal mammogram should not delay biopsy of a clinically suspicious abnormality. [id number] Electronically Signed: Patrick Keita MD at 11:22 EDT ,
== END | disposition home or self-care (01) ==
LOC: OPBI 08:34
PROVIDERS: PCP Internal Medicine; Referring Provider Internal Medicine; Visit Provider Internal Medicine
DX: Z12.31 Encounter for screening mammogram for malignant neoplasm of breast (principal)
CPT/HCPCS: 77063; 77067

== ENCOUNTER 2023-06-26 12:32 | Day surgery (SDC) | payer MEDICAID, SELFPAY ==
[2023-06-26] VITALS (8 sets, daily range): BP systolic 94–131; BP diastolic 48–79; PULSE 50–57; RESP 18–20; TEMP 37–37.6; O2SAT 93–99; BMI 45.8
[2023-06-26] MEDS: Lactated Ringers 1,000 ML 15 ML IV (13:44)
--- NOTE | 2023-06-26 14:15 | EGD_PTH ---
PATIENT: NIGHAT TIMMONS LOC: EN U#:[id number] AGE/SX: 58/F ROOM: RE06/26/[address]: Dr. Sumeet Irving DO : 1965 BED: DIS: 06/26/2023 SPEC #: [id number] RECD: 06/26/23 16:18 STATUS: HUMERA REAnne #: [id number] KENNEDY: 06/26/23 14:[address]: Sumeet Irving DEPT: SURGICAL PATHOLOGY RECD BY: Karla Madera ENTERED: 06/27/23 10:47 SP TYPE: EGD BIOPSY SUSAN DR: Dr. Elizabeth Santamaria MD Tissues: Esophagus, NOS Procedures: Special Stain Group I Surgery Specimen Level IV GMS Stain (control) HEADER OPERATION: EGD (GERRY), biopsy PRE-OP DIAGNOSIS: GERD TISSUE SUBMITTED: Distal esophagus biopsy MICROSCOPIC DIAGNOSIS Distal esophagus, biopsy: Fragments of squamous epithelium with chronic inflammation. See comment. OLIMPIA:jaclyn 06/28/2023 COMMENT Special stain for fungi is positive for organisms (yeast and pseudohyphae) in superficial epithelial layer consistent with Mayi species; matched control is appropriate. Correlation with clinical, endoscopic findings and appropriate follow up are necessary. MICROSCOPIC DESCRIPTION Slides are reviewed. GROSS DESCRIPTION Received in fixative is one container labeled with the patient's name and designated distal esophagus biopsy. The specimen consists of two irregular fragments of light huertas soft tissue that in aggregate measure 0.6 x 0.3 x 0.1 cm. The specimen is totally submitted in one cassette. / OLIMPIA:jaclyn 06/27/2023 TC:3 CPT: 72623, 17540
--- NOTE | 2023-06-26 14:26 | PCM.HP.BLA ---
History and Physical Date of Admission: 06/26/23 56 F who presents to the office today for f/u nausea, vomiting, abd pain. Hx of gastroparesis, cyclic vomiting, gerd. She didn't f/u to review EGD and colonoscopy that were done in September; says she has been too weak, can't leave her bed typically, having muscle weakness. Reports she is hardly eating anything, if she takes a bite of food or a sip of liquid, then she has nausea and vomits. She and her caregiver report she vomits multiple times a day. She states her last BM was October 25. Gets epigastric pain with eating, and constantly has RUQ and LUQ pain. Reports increased nausea from ondansetron. No relief with carafate or PPI or dicyclomine. Choking on her morning pills. Says not smoking cigarettes or marijuana. Reports weight is 262 lbs. 10/12/21 EGD: Impression: - LA Grade A reflux esophagitis. Biopsied. - Medium-sized hiatal hernia. - Erythematous mucosa in the antrum. - Normal second portion of the duodenum. Biopsied. 10/12/21 Colonoscopy: Impression: - Two 1 to 2 mm polyps in the sigmoid colon and at the splenic flexure, removed with a hot snare. Resected and retrieved. - Diverticulosis in the sigmoid colon. - The entire examined colon is normal. MICROSCOPIC DIAGNOSIS A. Gastric antrum, biopsy:Mild gastritis.See microscopic description and comment.B. Duodenal biopsy:Fragments of small intestinal mucosa with mild congestion.C. Distal esophageal biopsy:Fragments of squamous epithelium, no pathologic diagnosis.D. Splenic flexure polyp, biopsy:A fragment of colonic mucosa, no pathologic diagnosis.E. Sigmoid colon polyp, biopsy:Tubular adenoma.SJ:jaclyn 10/13/2021 COMMENT A. The results of immunohistochemistry for Helicobacter pylori will be reported separately ([id number]). MICROSCOPIC DESCRIPTIONSlides are reviewed.A. The specimen shows fragments of gastric mucosa with chronic inflammatory cell infiltrates in the lamina propria consisting of lymphocytes and plasma cells, consistent with mild chronic gastritis. ROS Const Constitutional: Positive for fatigue, frequent falls, weakness and weight change (loss) Eyes Eyes: Positive for blurry vision (from zoster in eye) Resp Respiratory: Positive for cough, shortness of breath and wheezing Cardio Cardiology: Positive for chest pain at rest, chest pain with exertion, leg pain with exertion and shortness of breath Musc Musculoskeletal: Positive for abnormal gait, joint pain, muscle cramps, muscle weakness, numbness, stiffness, tingling, Arthritis and leg pain with exertion Neuro Neurology: Positive for abnormal gait, unsteady gait/balance, weakness, frequent falls, numbness and tingling Psych Psychiatric: Positive for anxiety Endo Endocrine: Positive for fatigue and weight change (loss) Aller/Imm Allergy/Immunologic: Positive for wheezing Exam Const General: cooperative, acute distress (tearful) and anxious Nutritional Appearance: obese GI Inspection: obesity Palpation: soft and tender Musc Other: in wheelchair Psych Mood: anxious mood and dysthymic mood (depressed affect, tearful) Quality Reporting Tobacco Screening ([facility] 138) Smoking Status: Current every day smoker Assessment and Plan Assessment and Plan (1) Nausea & vomiting: Status: Acute (2) Abdominal pain: Status: Chronic Plan: 56 yr old female with chronic nausea and vomiting, abd pain. She and caregiver report significant decline recently. We discussed egd and colonoscopy results--gastritis, tubular adenoma. No relief with anything we've tried. Multiple allergies. We will repeat her upper endoscopy. I have examined the patient and the H&P has been reviewed. There are no clinical changes since date of exam.
--- NOTE | 2023-06-26 14:48 | OP.EGD_ITS ---
Patient Name: Soumya Owens Procedure Date: 06/26/2023 2:20 PM Date of : 1965 Age: 58 Procedure: Upper GI endoscopy Indications: Dyspepsia, Heartburn Providers: Sumeet Irving DO Medicines: Monitored Anesthesia Care Patient Profile: This is a 58 year old female. Refer to note in patient chart for documentation of history and physical. Patient has symptoms of chronic nausea and chronic vomiting. Patient has symptoms of chronic dyspepsia and chronic heartburn. Complications: No immediate complications. Procedure: Pre-Anesthesia Assessment: - Prior to the procedure, a History and Physical was performed, and patient medications and allergies were reviewed. The risks and benefits of the procedure and the sedation options and risks were discussed with the patient. All questions were answered and informed consent was obtained. Patient identification and proposed procedure were verified by the physician. Mental Status Examination: normal. Prophylactic Antibiotics: The patient does not require prophylactic antibiotics. Prior Anticoagulants: The patient has taken no anticoagulant or antiplatelet agents. ASA Grade Assessment: II - A patient with mild systemic disease. After reviewing the risks and benefits, the patient was deemed in satisfactory condition to undergo the procedure. The anesthesia plan was to use monitored anesthesia care (MAC). Immediately prior to administration of medications, the patient was re-assessed for adequacy to receive sedatives. The heart rate, respiratory rate, oxygen saturations, blood pressure, adequacy of pulmonary ventilation, and response to care were monitored throughout the procedure. The physical status of the patient was re-assessed after the procedure. After obtaining informed consent, the endoscope was passed under direct vision. Throughout the procedure, the patient's blood pressure, pulse, and oxygen saturations were monitored continuously. The gastroscope was introduced through the mouth, and advanced to the second part of duodenum. The upper GI endoscopy was accomplished without difficulty. The patient tolerated the procedure well. Scope In: 2:37:49 PM Scope Out: 2:40:19 PM Total Procedure Duration Time 0 hours 2 minutes 30 seconds Findings: Non-severe esophagitis with no bleeding was found 36 to 37 cm from the incisors. Biopsies were taken with a cold forceps for histology. Verification of patient identification for the specimen was done. Estimated blood loss was minimal. No gross lesions were noted in the entire examined stomach. A small hiatal hernia was present. The exam of the duodenum was otherwise normal. Impression: - Non-severe reflux esophagitis with no bleeding. Biopsied. - No gross lesions in the entire stomach. - Small hiatal hernia. Recommendation: - Discharge patient to home. - Resume previous diet. - Continue present medications. - Await pathology results. Procedure Code(s): --- Professional --- 53974, Esophagogastroduodenoscopy, flexible, transoral; with biopsy, single or multiple CPT copyright 2021 [employer]. All rights reserved. The codes documented in this report are preliminary and upon a r specialist review may be revised to meet current compliance requirements. Sumeet Irving DO 06/26/2023 2:47:43 PM This report has been signed electronically. Number of Addenda: 0 Note Initiated On: 06/26/2023 2:20 PM
--- NOTE | 2023-06-26 14:48 | OP.CCLET_ITS ---
06/26/2023 Elizabeth Santamaria Md Re : Upper GI endoscopy procedure for Soumya Owens Dear Rosalio This procedure was performed on Monday, June 26, 2023. My impressions and recommendations are as follows: Impressions : - Non-severe reflux esophagitis with no bleeding. Biopsied. - No gross lesions in the entire stomach. - Small hiatal hernia. Recommendations : - Discharge patient to home. - Resume previous diet. - Continue present medications. - Await pathology results. My findings are described in the full procedure note, which is enclosed. If I can be of further assistance, please feel free to contact me at . Sincerely, Sumeet Irving, 06/26/2023 2:47:43 PM This report has been signed electronically.
[2023-06-26] MEDS: Ipratropium/Albuterol Sulfate 3 ML AMPUL.NEB INHALATION (15:00)
== END 2023-06-26 15:44 | disposition home or self-care (01) ==
LOC: EN 12:37 → AC 12:40
PROVIDERS: PCP Internal Medicine; Referring Provider Internal Medicine; Visit Provider Internal Medicine Gastroenterology
PROC: 0DJ08ZZ Inspection of Upper Intestinal Tract, Via Natural or Artificial Opening Endoscopic (ICD-10-PCS; CPT 43235; principal; 2023-06-26 14:10)
DX: K44.9 Diaphragmatic hernia without obstruction or gangrene (principal); R11.2 Nausea with vomiting, unspecified; K21.00 Gastro-esophageal reflux disease with esophagitis, without bleeding; F17.200 Nicotine dependence, unspecified, uncomplicated; F41.9 Anxiety disorder, unspecified; R10.9 Unspecified abdominal pain
CPT/HCPCS: 43239; 88305; 88312; 94640; J7120; J2405

== ENCOUNTER → 2023-07-02 | Outpatient (CLI) | payer MEDICAID, SELFPAY | END | disposition home or self-care (01) | LOC: LABSPEC 12:08 | PROVIDERS: PCP Internal Medicine; Referring Provider Internal Medicine; Visit Provider Internal Medicine | DX: J02.9 Acute pharyngitis, unspecified (principal) | CPT/HCPCS: 87635 ==

== ENCOUNTER → 2023-07-19 | Outpatient (CLI) | payer MEDICAID, SELFPAY ==
--- NOTE | 2023-07-19 07:44 | MRI_ITS ---
STUDY: MRI LEFT SHOULDER REASON FOR EXAM: Female, 58 years old. Pain, disorder of synovium and tendon left shoulder. TECHNIQUE: Standardized fat and water weighted pulse sequences were obtained in all 3 orthogonal planes. COMPARISON: Left shoulder radiographs dated 05/23/2023. FINDINGS: There is minimal supraspinatus and infraspinatus tendinosis without a full-thickness tear. Normal subscapularis tendon. Normal teres minor tendon. Normal supraspinatus muscle. Normal infraspinatus muscle. Normal subscapularis muscle. Normal teres minor muscle. Normal glenohumeral articulation. There is a 1.0 cm enchondroma in the left humeral neck (coronal T2 series 5 image 9). Normal biceps labral complex. Normal intracapsular long biceps tendon. Normal labrum. Normal capsulo-ligamentous complex. Normal rotator interval. There is hypertrophic acromioclavicular arthrosis, with inferior osteophyte formation, with mild effacement of the supraspinatus myotendinous junction (coronal T2 series 5 image 12). There is a Type II morphology (curved), with a neutral orientation. There is no subacromial-subdeltoid bursal fluid. Normal visualized coracohumeral and coracoacromial ligaments. Normal quadrilateral space. Normal axillary space. Normal deltoid muscle. Normal trapezius muscle. MRI/Upper Ext Joint Only(Routine) IMPRESSION: Minimal supraspinatus and infraspinatus tendinosis without a full-thickness rotator cuff tear. Hypertrophic acromioclavicular arthrosis, with inferior osteophyte formation, with mild effacement of the supraspinatus myotendinous junction. 1.0 cm enchondroma in the left humeral neck. Electronically Signed: Dhruv Salamanca MD at 9:47 EDT ,
== END | disposition home or self-care (01) ==
PROVIDERS: PCP Internal Medicine; Referring Provider Physician Assistant; Visit Provider Physician Assistant
DX: M25.512 Pain in left shoulder (principal); M67.912 Unspecified disorder of synovium and tendon, left shoulder
CPT/HCPCS: 73221

== ENCOUNTER 2023-09-21 10:30 | Outpatient (RCR) | payer MEDICAID, SELFPAY ==
--- NOTE | 2023-09-12 10:11 | HP.PTEVAL_ITS ---
Patient's Visit Information Visit Information Visit Information: NIGHAT TIMMONS is a 58 year old F referred to Physical Therapy by Dr. Stevan Shaw MD with a diagnosis of L impingement. Date of Evaluation: 09/12/23 Physical Therapist: Facundo Yip, DPT, OCS, CSCS Visit Plan Plan: 3x/week for 4-6 weeks for 1. US , nonthermal, MH and PROM grade 1-2 joint mobs L shoulder 2. postural and scap strength to toelrance 3. scap ROM , neck ROM particularly L rotation TENS with ice as needed. Subjective Subjective: One morning woke up and jerked L arm on sheets and it has hurt since that day in April. Worsening and stiffening up. Moving it hurts. Achy at rest 4/10 and 9/10 when moving it. Putting coat on and shirt and bra is hard as she cannot get hand behind her. Sleep is interrupted as she likes to sleep on left side. Sleeping on R side hurts hip. Not employed. Basic ADLs are getting done but can be a challenge with deodorant and washes hair one handed. No regular exercise but tries to move arm. Hobbies: coloring and crafts with R hand and she is R handed. Pain L shoulder.: Pain Intensity (Out of 10): 4 Pain Intensity Range: 4 and 9 Objective Objective: Walks I into PT, bed adn chair trasnfers I but holds L arm protected and scap elevated and elbow bent. Posture is forward head adn protracted scap, kyphosis in T/S. Cervical aROM 40 ext, 45 R rotation 25 L rotation with painin neck, not shoulder, - c/s compression test. Tender over supraspinatus and anterior L shoulder generally. AROM L shoulder 30 flexion, 30 abduction, 26 er adn nil IR all self limited by pain PROM 45 flexion, 45 abd, 40 er, and 30 IR all limited by pain and muscle spasms. strength R shoulder 4-, L shoulder painful with er , ir, flexion and abduction 3-/5. elbow and wrist 4-/5 B and no pain. reflexes 2/3 bi and tri sensation UE WNL to gross light touch B. + HK, + neer on L Balance/Special Test Scores Quick DASH Score: 61.3625 Goals Goal 1:: Sleep without interruption at night Goal Time Frame: 4-6 Weeks Goal 2:: funcitonal 130 arm elevation without pain increas Goal Time Frame: 4-6 Weeks Goal 3:: pain level 75% better at 3/10 at worst Goal Time Frame: 4-6 Weeks Goal 4:: dress without noticing pain in L arm Goal Time Frame: 4-6 Weeks Goal 5:: qucikdash score 22 or less. Goal Time Frame: 4-6 Weeks Rehabilitation Potential Physical Therapy Diagnosis: dificulty with ROM, funciton L arm due to inflammation Rehabilitation Potential: Good Anticipated Interventions Patient/Client Instruction: Educate patient on: Condition and Plan of Care For the Purpose of:: To decrease pain, To increase ROM, To improve nutrient delivery to tissue, To improve muscle performance and motor function, To increase tolerance to activity/condition/position and To improve ability of physical actions for home/community/work/leisure Therapeutic Exercise to Include: Strength training, Agility training, Postural training, Flexibilty training, Gait and locomotor training, Passive ROM and Active ROM For the Purpose of:: To decrease pain, To increase ROM, To improve nutrient delivery to tissue, To improve muscle performance and motor function, To increase tolerance to activity/condition/position and To improve ability of physical actions for home/community/work/leisure Manual Therapy Techniques to Include: Mobilization, Passive ROM and Soft tissue mobilization For the Purpose of:: To decrease pain, To increase ROM, To improve nutrient delivery to tissue and To improve muscle performance and motor function TENS: Yes Cryotherapy (ice pack, ice massage): Yes Thermo therapy (hot pack): Yes Ultrasound (thermal/non thermal): Yes For the Purpose of:: To decrease pain Text: Thank you for the opportunity to evaluate your patient. For Medicare and Medicare HMO plans, please review the plan of care and approve it. It will need to be FAXED BACK to us at [phone] for Medicare purposes. For Medicare only, by signing this I certify the plan of care. Please let me know if there are questions or concerns regarding this plan of care. Physician Signature: Date:
--- NOTE | 2024-01-04 14:43 | HP.PTDCNRP_ITS ---
Patient Information Patient Information: NIGHAT TIMMONS was seen in my office for initial evaluation on 09/12/23. The following Plan of Care was established for this patient: Anticipated Interventions Patient/Client Instruction: Educate patient on: Condition and Plan of Care For the Purpose of:: To decrease pain, To increase ROM, To improve nutrient delivery to tissue, To improve muscle performance and motor function, To increase tolerance to activity/condition/position and To improve ability of physical actions for home/community/work/leisure Therapeutic Exercise to Include: Strength training, Agility training, Postural training, Flexibilty training, Gait and locomotor training, Passive ROM and Active ROM For the Purpose of:: To decrease pain, To increase ROM, To improve nutrient de livery to tissue, To improve muscle performance and motor function, To increase tolerance to activity/condition/position and To improve ability of physical actions for home/community/work/leisure Manual Therapy Techniques to Include: Mobilization, Passive ROM and Soft tissue mobilization For the Purpose of:: To decrease pain, To increase ROM, To improve nutrient delivery to tissue and To improve muscle performance and motor function TENS: Yes Cryotherapy (ice pack, ice massage): Yes Thermo therapy (hot pack): Yes Ultrasound (thermal/non thermal): Yes For the Purpose of:: To decrease pain Last Seen Last Seen: This patient was last seen in our office 09/21/23. Pertinent comments regarding their Physical therapy will appear below: Pt seen 3 visits of POC then did not attend any further POC visits. At this point, it has been over 3 months and I will discontinue from my care. At this point I will be discontinuing this patient from physical therapy. I would be happy to see this patient again in the future if found appropriate by the physician. Thank you! Facundo Yip, DPT, OCS, CSCS Balance/Gait/Functional tests Balance/Special Test Scores Quick DASH Score: [phone]
== END 2023-09-21 19:00 | disposition home or self-care (01) ==
LOC: PT 10:30
PROVIDERS: PCP Internal Medicine; Referring Provider Orthopaedic Surgery Sports Medicine; Visit Provider Orthopaedic Surgery Sports Medicine
DX: M25.812 Other specified joint disorders, left shoulder (principal)
CPT/HCPCS: 97035; 97110; 97161

== ENCOUNTER 2023-11-14 15:35 | Inpatient (IN) | payer MEDICAID, SELFPAY ==
[2023-11-14 15:37] VITALS: BP 150/102; PULSE 83; RESP 18; TEMP 36.6
--- OUTSIDE RECORDS SUMMARY | 2023-11-14 17:58 | XMS RPT_ITS | CCD ---
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 and edited as necessary the relevant ophthalmic history, ROS, and the neuro exam findings as obtained by others. I have seen and examined this patient. I have discussed the case and the management of this patient's care with the Resident and/or fellow if applicable. I also have reviewed and agree with the assessment and plan as stated above and agree with all of its relevant components. George Bey MD, PhD Vitreoretinal Surgery & Ocular Inflammatory Diseases [facility] documented in this encounter History of Past illness Narrative 12-31-2017 Note Date & Type Note Facility documented as of this encounter (statuses as of 06/09/2023) Evaluation note Note Date & Type Note Facility documented in this encounter Summary Purpose Family History No Family History Records FoundNo Family History Records FoundNo Family History Records FoundNo Family History Records FoundNo Family History Records FoundNo Family History Records Found Advance Directives No Advanced Directives Records FoundNo Advanced Directives Records FoundNo Advanced Directives Records FoundNo Advanced Directives Records FoundNo Advanced Directives Records FoundNo Advanced Directives Records Found Additional Source Comments INFORMATION SOURCE (unrecogn ized section and content) DATE CREATED AUTHOR AUTHOR'S ORGANIZ ATION 04/05/2018 [facility] DATE CREATED AUTHOR AUTHOR'S ORGANIZ ATION 01/06/2020 [facility] DATE CREATED AUTHOR AUTHOR'S ORGANIZ ATION 09/03/[address] [facility] DATE CREATED AUTHOR AUTHOR'S ORGANIZ ATION 11/23/2022 [facility] DATE CREATED AUTHOR AUTHOR'S ORGANIZ ATION 06/09/2023 [facility] <item> Privacy Markings (unrecogniz ed section and content) Section Author: Brianna Woo PROHIBITION ON REDISCLOSURE OF CONFIDENTIAL INFORMATION This notice accompanies a disclosure of information concerning a client made to you with the consent of such client. Source Comments (unrecognize d section and content) In the event this informatio n is protected by the Federal Confidentiality of Alcohol and Drug Abuse Patient Records regulations: The Federal rules restrict any use of the information to criminally investigate or prosecute any alcohol or drug abuse patient. Reason for Visit (unrecogniz ed section and content) Care Teams (unrecognized sec tion and content) FOR RECORDS PERTAINING TO PATIENTS WHO ARE OR HAVE BEEN ENROLLED IN A CHEMICAL DEPENDENCY/SUBSTANCEABUSE PROGRAM, SOME INFORMATION MAY BE OMITTED. This clinical summary was aggregated from multiple sources. Caution should be exercised in using it in the provision of clinical care. This summary normalizes information from multiple sources, and as a consequence, information in this document may materially change the coding, format and clinical context of patient data. In addition, data may be omitted in some cases. CLINICAL DECISIONS SHOULD BE BASED ON THE PRIMARY CLINICAL RECORDS. [facility] [employer] [facility]. provides no warranty or guarantee of the accuracy or completeness of information in this document.
--- NOTE | 2023-11-14 18:09 | MRI_ITS ---
STUDY: MRI LUMBAR SPINE WITHOUT CONTRAST REASON FOR EXAM: Female, 58 years old. Low back pain and right leg weakness TECHNIQUE: Standardized fat and water weighted pulse sequences were obtained in the sagittal and axial planes. COMPARISON: None FINDINGS: T12-L1: Normal endplates. Normal disc height, hydration and morphology. Normal bilateral facet joints. Normal central canal and bilateral lateral recesses. Normal bilateral intervertebral neural foramina. Normal lumbar lordosis. There is no substantial scoliosis. Normal conus medullaris that terminates at the T12 level. L1-2: Normal endplates. Normal disc height, hydration and morphology. There is mild spurring of the bilateral facet joints. Normal central canal and bilateral lateral recesses. Normal bilateral intervertebral neural foramina. L2-3: Normal endplates. Normal disc height, hydration and morphology. There is mild spurring of the bilateral facet joints. Normal central canal and bilateral lateral recesses. Normal bilateral intervertebral neural foramina. L3-4: Disc bulge with spurring. Facet spurring and ligamentum flavum hypertrophy. Mild canal stenosis. Neural foramina are patent. L4-5: Disc bulge and spurring. Facet spurring with ligamentum flavum hypertrophy and effusions. There is 1.6 x 1.3 cm complex cystic collection extending from the right facet joint with encroachment upon the right lateral recess with narrowing of the and neural foramen, series 10 image . Moderate canal stenosis. Right foraminal narrowing. L5-S1: Disc space narrowing with endplate change. Disc bulge and spurring. Mild facet spurring. No canal stenosis. Bilateral foraminal narrowing. Normal visualized sacral ala. Normal visualized paraspinous soft tissue structures. MRI/Spine Lumbar (Routine) IMPRESSION: Degenerative change. L4-5 facet arthropathy with complex cyst on the right encroaching upon the lateral recess and narrowing the neural foramen. Electronically Signed: Tomy Duncan MD at 20:30 EST ,
--- NOTE | 2023-11-14 18:11 | EDS_ITS ---
HPI History of Present Illness Chief Complaint: Other, Pain/Inj Detail of Chief Complaint: Low back pain. Radiating to right leg. Right leg weakness. Informant: patient Onset/Context/Timing Onset: Month(s) Context: Gradual Onset Quality: Sharp Location: Lumbar and Right Leg Current Severity: Moderate Maximum Severity: Moderate Worsened by: improves with Movement Relieved by: Nothing Associated Symptoms Associated Symptoms: Numbness, Tingling and Radiation to Right Leg; Negative for Abdominal Pain, Dysuria, Unable to Transfer, Urinary Retention, Urinary Incontinence, Constipation or Fecal Incontinence Narrative Narrative: 58-year-old female sees pain management. History of chronic kidney disease, Aortic valve disease and history of A-fib. Patient complaining of lower back pain since January getting worse over the last several weeks with numbness to her right leg over the last couple weeks. Denies any bowel or bladder incontinence. No fall or trauma. No fever. No urinary retention. No prior procedures to her back or surgeries to her back. Saw her pain management doctor today or send in the emergency department was hoping that we can get an MRI of her back. Prior similar symptoms: Yes Recent Illness/Hospitalization: No PFSH PFSH Medical History Abdominal pain Allergic rhinitis Aortic valve insufficiency Arthralgia of right hip Arthritis Asthma Back pain Bilateral flank pain Bilateral foot pain Bipolar 1 disorder Bipolar disorder Blackout Bladder disease Cancer Cardiology follow-up encounter Chest pain Chronic cough CKD (chronic kidney disease) Colitis Conversion disorder with abnormal movement Convulsion, non-epileptic COPD, mild COVID-19 virus infection CPAP (continuous positive airway pressure) dependence Cyclic vomiting syndrome Cyst Debility Degenerative tear of meniscus of left knee Depression Diarrhea Dietary restriction Difficulty chewing Disease of gingiva due to infection Dysuria Easy bruising Enchondroma of left humerus Enlarged aorta Excessive bleeding Family history of colon cancer Gastric reflux Gastritis Heart failure High cholesterol Hip dislocation, right History of abnormal cervical Pap smear History of atrial fibrillation History of CHF (congestive heart failure) History of echocardiogram History of edema History of hiatal hernia History of Holter monitoring History of IBS History of renal disease History of skin cancer History of steroid therapy History of stress test History of ulceration HTN (hypertension) Hx of tilt table evaluation Hypertensive crisis without congestive heart failure Hypokalemia Hyponatremia Hypothyroidism Impingement of left shoulder Injury of head and neck Intertriginous dermatitis associated with moisture Kidney disease Left arm swelling Leg cramps Loss of hearing Marijuana use Migraines Morbid obesity Myositis Non-convulsive status epilepticus Non-rheumatic mitral regurgitation Nonrheumatic aortic (valve) insufficiency Open wound Oral candidiasis Orthostatic hypotension DAPHNE (obstructive sleep apnea) Osteoarthritis Osteoarthritis of left knee Osteoarthritis of right hip PAF (paroxysmal atrial fibrillation) Pain of left calf Peripheral artery disease Post-menopausal Psychosis Pulmonary embolism Restless legs Sarcoidosis Schizo NEC, chrn/exacerb Schizophrenia Seizures Shortness of breath on exertion Sleep apnea Smoker Stroke Stroke/cerebrovascular accident Syncope Thyroid disease TIA (transient ischemic attack) Venous insufficiency of both lower extremities Walker as ambulation aid Wears dentures Wears glasses Home Medications azelastine 205.5 mcg (0.15 %) nasal spray 1 spray intranasal BID allergies 02/27/22 [History Last Taken 06/25/23] miconazole nitrate 2 % topical powder (Desenex) 1 applic topical BID rash 02/27/22 [History Last Taken 06/25/23] prochlorperazine maleate 5 mg tablet (Compazine) 5 mg PO BID PRN nausea and vomiting #20 tabs 03/23/22 [Rx Last Taken Unknown] ipratropium 0.5 mg-albuterol 3 mg (2.5 mg base)/3 mL nebulization soln 3 ml inhalation Q4H PRN PRN SOB &/OR WHEEZING #180 mL 06/07/22 [Rx Last Taken Unknown] trazodone 50 mg tablet 50 mg PO QHS PRN insomnia 06/20/22 [History Last Taken 06/25/23] atorvastatin 40 mg tablet 40 mg PO QHS cholesterol #90 tabs 06/30/22 [Rx Last Taken 06/25/23] nicotine (polacrilex) 4 mg buccal mini lozenge 4 mg buccal Q6H PRN nicotine cravings #81 ea 10/10/22 [Rx Last Taken 06/25/23] aripiprazole 5 mg tablet (Abilify) 15 mg PO DAILY 11/27/22 [History Last Taken 06/25/23] hydroxyzine HCl 10 mg tablet 100 mg PO QHS anxiety 11/27/22 [History Last Taken 06/25/23] budesonide-formoterol HFA 160 mcg-4.5 mcg/actuation aerosol inhaler (Symbicort) 2 puff inhalation BID wheezing #10.2 grams 12/18/22 [Rx Last Taken 06/26/23] ondansetron 4 mg disintegrating tablet 4 mg PO Q8H PRN nausea and vomiting #60 tabs 04/30/23 [Rx Last Taken Unknown] albuterol sulfate 90 mcg/actuation aerosol inhaler 2 puff inhalation Q4H PRN shortness of breath or wheezing #8.5 grams 05/08/23 [Rx Last Taken Unknown] mepolizumab 100 mg/mL subcutaneous auto-injector (Nucala) 100 mg subcut Q4W #1 mL 06/06/23 [Rx Last Taken Unknown] nitroglycerin 0.4 mg sublingual tablet 0.4 mg sublingual PRN PRN CHEST PAIN #25 tabs 07/09/23 [Rx Last Taken Unknown] furosemide 20 mg tablet See Rx Instructions .Route .COMPLEX #30 tabs 07/26/23 [Rx Last Taken Unknown] montelukast 10 mg tablet (Singulair) 10 mg PO QHS allergies #30 tabs 07/30/23 [Rx Last Taken Unknown] nifedipine 60 mg tablet,extended release 24 hr 30 mg (1/2 x 60 mg) PO BID bp #30 tabs 07/30/23 [Rx Last Taken Unknown] aspirin 81 mg tablet,delayed release See Rx Instructions .Route .COMPLEX #30 tabs 08/22/23 [Rx Last Taken Unknown] levothyroxine 50 mcg tablet See Rx Instructions .Route .COMPLEX #30 tabs 08/22/23 [Rx Last Taken Unknown] loratadine 10 mg tablet See Rx Instructions .Route .COMPLEX #30 tabs 08/22/23 [Rx Last Taken Unknown] losartan 100 mg tablet See Rx Instructions .Route .COMPLEX #30 tabs 08/22/23 [Rx Last Taken Unknown] spironolactone 25 mg tablet See Rx Instructions .Route .COMPLEX #30 tabs 08/22/23 [Rx Last Taken Unknown] esomeprazole magnesium 40 mg capsule,delayed release 40 mg PO DAILY #90 caps 09/13/23 [Rx Last Taken Unknown] guaifenesin 1,200 mg tablet, extended release 12 hr 600 mg (1/2 x 1,200 mg) PO BID allergies #60 tabs 09/20/23 [Rx Last Taken Unknown] hydralazine 100 mg tablet 100 mg PO TID blood pressure #90 tabs 09/20/23 [Rx Last Taken Unknown] tiotropium bromide 1.25 mcg/actuation mist for inhalation (Spiriva Respimat) See Rx Instructions .Route .COMPLEX #4 grams 09/21/23 [Rx Last Taken Unknown] lidocaine 5 % topical patch 1 patch topical DAILY PRN Pain #30 ea 09/25/23 [Rx Last Taken Unknown] melatonin 10 mg capsule 10 mg PO QHS insomnia #90 caps 10/18/23 [Rx Last Taken Unknown] fluticasone propionate 50 mcg/actuation nasal spray,suspension See Rx Instructions .Route .COMPLEX #16 grams 11/05/23 [Rx Last Taken Unknown] polyethylene glycol 3350 17 gram/dose oral powder (Miralax) 17 g PO BID PRN Constipation #238 grams 11/12/23 [Rx Last Taken Unknown] carvedilol 3.125 mg tablet See Rx Instructions .Route .COMPLEX #60 tabs 11/14/23 [Rx Last Taken Unknown] Allergy/AdvReac Type Severity Reaction Status Date / Time adhesive tape Allergy Rash Verified 11/14/23 15:37 atropine sulfate Allergy Hives Verified 11/14/23 15:37 [From ] codeine phosphate Allergy breathing Verified 11/14/23 15:37 [From Tylenol-Codeine #3] problems divalproex sodium Allergy Unknown Verified 11/14/23 15:37 [From Depakote] guaifenesin Allergy Itching Verified 11/14/23 15:37 hydrocodone Allergy Itching Verified 11/14/23 15:37 hydromorphone HCl Allergy facial Verified 11/14/23 15:37 [From Dilaudid] blisters,itching hyoscyamine sulfate Allergy Hives Verified 11/14/23 15:37 [From ] Iodinated Contrast Media Allergy breathing Verified 11/14/23 15:37 [Iodinated Contrast Media - problems IV Dye] and my bp went up latex Allergy Rash Verified 11/14/23 15:37 pantoprazole sodium Allergy Rash Verified 11/14/23 15:37 [From Protonix] phenobarbital [From ] Allergy Hives Verified 11/14/23 15:37 promethazine HCl Allergy Anaphylaxis Verified 11/14/23 15:37 [From Phenergan] ramipril Allergy Unknown Verified 11/14/23 15:37 scopolamine hydrobromide Allergy Hives Verified 11/14/23 15:37 [From ] tramadol Allergy Itching Verified 11/14/23 15:37 ziprasidone mesylate Allergy Unknown Verified 11/14/23 15:37 [From Geodon] amlodipine AdvReac Vomiting Verified 11/14/23 15:37 levofloxacin [From Levaquin] AdvReac Itching Verified 11/14/23 15:37 metoclopramide [From Reglan] AdvReac Other Verified 11/14/23 15:37 Sulfa (Sulfonamide AdvReac Vomiting Verified 11/14/23 15:37 Antibiotics) ziprasidone HCl [From Geodon] AdvReac tremors Verified 11/14/23 15:37 Family History Sister Myocardial infarction Colon cancer Mother Hypertension Arthritis Brain aneurysm Heart disease High cholesterol Sister Colon cancer Heart disease High cholesterol Hypertension Arthritis Grandmother Arthritis Diabetes CVA (cerebral vascular accident) Father Heart disease High cholesterol Hypertension Surgical History bladder sling Cataract extraction status History of esophagogastroduodenoscopy (EGD) History of laparoscopic cholecystectomy History of uterine suspension procedure Hx of colonoscopy left foot S/P carpal tunnel release Social History household members: none number of children: 4 current occupational status: unemployed history of recent travel: No Smoking Status: Current every day smoker tobacco type: cigarettes Tobacco: How many years used: 26 Electronic Cigarette Use: not used quit status: considering quitting alcohol intake: never substance use type: does not use caffeine: Yes Type: coffee what type of physical activity do you participate in: none seatbelt use: never do you feel safe at home: Yes additional social history: single ROS ROS ED ROS Narrative Denies recent illness. Back pain. Constitutional Constitutional ED: Denies chills or fever(s) Eyes Eyes: Denies blurry vision ENT ENT ED: Denies ear pain Cardiovascular Cardiovascular: Denies chest pain Respiratory/Chest Respiratory/Chest: Denies dyspnea Gastrointestinal Gastrointestinal: Denies abdominal pain, nausea or vomiting Genitourinary Genitourinary ED: Denies dysuria or hematuria Musculoskeletal Musculoskeletal: Reports back pain; Denies arthralgias, myalgias or neck pain Integumentary Denies abscess Neurologic Neurologic: Denies headache(s) Psychiatric Psychiatric: Denies anxiety Endocrine Endocrinology: Denies cold intolerance Hematologic/Lymphatic Hematologic/Lymphatic: Denies easy bleeding or easy bruising Allergic/Immunologic Allergic/Immunologic ED: Denies mouth swelling, tongue swelling or urticaria EXAM Physical Exam Narrative Exam Narrative: 8-year-old female vital signs stable afebrile. Lying in bed. H EENT exam unremarkable. Neck nontender. Lungs clear to auscultation bilaterally. Heart regular rhythm no murmur rate about 80. Chest wall and ribs nontender. Abdomen soft nontender. Moving all 4 extremities. 5 out of 5 rn clinical resource strength. Dorsi plantarflexion intact in the left leg. Right leg she seems weak 3-4 out of 5. With assistance I can lift it off the bed and she can hold it up. Complaining of worsening pain with a straight leg raise on the right at about 45 degrees. Left leg is unremarkable. Her back there is reproducible LS and right SI tenderness. No redness or warmth. No signs of trauma or bruising. She has normal medial thigh sensation on both lower extremities. No cauda equina. No saddle anesthesia. Neurologically she is awake and alert. Has weakness in the right leg. Const Vital Signs: 11/14/23 15:37 11/14/23 19:30 11/14/23 19:30 Temperature 98 F Temperature Source Temporal Pulse Rate 83 72 Respiratory Rate 18 16 Respiratory Effort Normal Non-Labored Respiratory Pattern Normal Blood Pressure 150/102 H 125/52 H Blood Pressure Mean 118 76 Pulse Ox 98 Oxygen Delivery Method Room Air Positive well nourished and well developed; Negative for cachectic, contractures or unkempt General Appearance ED: well developed and NAD; Negative for unkempt, cachectic, contractures or pallor Nutritional Appearance: Negative for cachectic HEENT Reports moist mucous membranes; Denies TM's clear or dry mucous membranes Negative for trauma or tenderness Tympanic Membrane ED: Negative for TM's clear Mouth ED: No dry mucous membranes Mouth: No dry mucous membranes Eyes PERRL and EOMs intact bilaterally General Eye ED: Negative for pale conjunctiva or scleral icterus Neck no lymphadenopathy, supple and no JVD General: Negative for tenderness Chest Wall Chest: Negative for other Resp normal respiratory effort and clear to auscultation bilaterally Effort and Inspection: Negative for pain with movement Auscultation: Negative for rales, rhonchi or wheezes Cardio regular rate, regular rhythm, S1 normal heart sound, S2 normal heart sound and no murmurs Palpation: Negative for palpable S3 Rate: Negative for bradycardia or tachycardic Rhythm: Negative for abnormal rhythm Bruits: Negative for other GI normal to inspection, nondistended, normoactive bowel sounds, soft to palpation, non-tender, non-distended and no masses Inspection: Negative for abdominal distention Auscultation: Negative for hyperactive bowel sounds Palpation: Negative for tender or guarding Bladder / Kidney Exam: No other Back/Spine Negative for normal to inspection or no thoracic nor lumbar tenderness Back/Spine Narrative: Lumbar tenderness. Right SI tenderness. Extremity Extremity Narrative: Right leg weakness. Positive straight leg raise on the right at 30 to 45 degrees. Decreased dorsi and plantarflexion on the right. Normal on the left. No saddle anesthesia. No cauda equina. General Extremety ED: Negative for edema or tenderness General Extremity: Negative for edema Neuro oriented x3 Sensorium / Orientation: alert; Negative for confused, lethargic or stuporous Motor Exam: strength abnormal; Negative for strength 5/5 throughout Psych mental status grossly normal Appearance: Negative for unkempt Attitude: No agitated Mood & Affect: Negative for depressed, sad or tearful Skin no rashes or lesions noted and no wounds General Skin Exam: Negative for jaundice or pallor Lesions: No lesion noted Rashes: No rashes noted Trauma: Negative for abrasion or puncture Wounds: Negative for wounds noted MDM MDM MDM Narrative Medical decision making narrative: 58-year-old female with back pain for 8+ months. Getting worse the last 2 weeks with subjective numbness and weakness in her right leg. IV morphine and Zofran for pain and nausea. And MRI of her lumbar spine without contrast. Repeat exam patient is improved at 9 PM. Pain medic patient has helped. The plan will be admit her for pain control. Pain management consultation who was down in the ER and when the patient admitted. And orthopedic spine evaluation for this complex cyst on her MRI. History & Record Review Discussion w/independent historian: Patient Additional record(s) reviewed:: Prior inpatient record, Prior outpatient record, Prior ED visit, Prior labs and No prior records Radiography Diagnostic Testing: Clinical Impression(s) from Imaging Studies Lumbar Spine MRI 11/14/23 18:09 IMPRESSION: Degenerative change. L4-5 facet arthropathy with complex cyst on the right encroaching upon the lateral recess and narrowing the neural foramen. Electronically Signed: Tomy Duncan MD at 20:30 EST , Discharge Plan Triage Chief Complaint: Other, Pain/Inj ED Provider: Addy Early Dx/Rx/DC Orders Clinical Impression: Intractable back pain, Synovial cyst of lumbar spine, Difficulty in walking Prescriptions: No Action ipratropium-albuterol 0.5 mg-3 mg(2.5 mg base)/3 mL solution for nebulization 3 ml inhalation Q4H PRN PRN (Reason: SOB &/OR WHEEZING) Qty: 180 6RF prochlorperazine maleate [Compazine] 5 mg tablet 5 mg PO BID PRN (Reason: nausea and vomiting) Qty: 20 0RF hydroxyzine HCl 10 mg tablet 100 mg PO QHS trazodone 50 mg tablet 50 mg PO QHS PRN (Reason: insomnia) aripiprazole [Abilify] 5 mg tablet 15 mg PO DAILY miconazole nitrate [Desenex] 2 % powder 1 applic TOPICAL BID azelastine 205.5 mcg (0.15 %) spray,non-aerosol 1 spray intranasal BID Rx Instructions: administer into each nostril atorvastatin 40 mg tablet 40 mg PO QHS Qty: 90 1RF Hold Instructions: muscle aches nicotine (polacrilex) 4 mg mini lozenge 4 mg buccal Q6H PRN (Reason: nicotine cravings) Qty: 81 1RF budesonide-formoterol [Symbicort] 160-4.5 mcg/actuation HFA aerosol inhaler 2 puff INHALATION BID Qty: 10.2 11RF ondansetron 4 mg tablet,disintegrating 4 mg PO Q8H PRN (Reason: nausea and vomiting) Qty: 60 1RF albuterol sulfate 90 mcg/actuation HFA aerosol inhaler 2 puff inhalation Q4H PRN (Reason: shortness of breath or wheezing) Qty: 8.5 6RF Rx Instructions: administer with spacer Nucala 100 mg/mL auto-injector 100 mg subcut Q4W Qty: 1 11RF nitroglycerin 0.4 mg tablet, sublingual 0.4 mg SUBLINGUAL PRN PRN (Reason: CHEST PAIN) Qty: 25 3RF furosemide 20 mg tablet See Rx Instructions .ROUTE .COMPLEX Qty: 30 11RF Dose Instruction: TAKE 1 TABLET BY MOUTH DAILY Rx Instructions: TAKE 1 TABLET BY MOUTH DAILY montelukast [Singulair] 10 mg tablet 10 mg PO QHS Qty: 30 5RF nifedipine 60 mg tablet extended release 24hr 30 mg PO BID Qty: 30 5RF Rx Instructions: Hold for SBP less than 120 mmHg losartan 100 mg tablet See Rx Instructions .ROUTE .COMPLEX Qty: 30 5RF Dose Instruction: TAKE 1 TABLET BY MOUTH DAILY FOR BLOOD PRESSURE Rx Instructions: TAKE 1 TABLET BY MOUTH DAILY FOR BLOOD PRESSURE spironolactone 25 mg tablet See Rx Instructions .ROUTE .COMPLEX Qty: 30 5RF Dose Instruction: TAKE 1 TABLET BY MOUTH AT BEDTIME FOR BLOOD PRESSURE Rx Instructions: TAKE 1 TABLET BY MOUTH AT BEDTIME FOR BLOOD PRESSURE aspirin 81 mg tablet,delayed release (DR/EC) See Rx Instructions .ROUTE .COMPLEX Qty: 30 5RF Dose Instruction: TAKE 1 TABLET BY MOUTH EVERY MORNING AROUND 8AM FOR HEART HEALTH Rx Instructions: TAKE 1 TABLET BY MOUTH EVERY MORNING AROUND 8AM FOR HEART HEALTH loratadine 10 mg tablet See Rx Instructions .ROUTE .COMPLEX Qty: 30 5RF Dose Instruction: TAKE 1 TABLET BY MOUTH DAILY FOR ALLERGIES Rx Instructions: TAKE 1 TABLET BY MOUTH DAILY FOR ALLERGIES levothyroxine 50 mcg tablet See Rx Instructions .ROUTE .COMPLEX Qty: 30 5RF Dose Instruction: TAKE 1 TABLET BY MOUTH DAILY FOR THYROID Rx Instructions: TAKE 1 TABLET BY MOUTH DAILY FOR THYROID esomeprazole magnesium 40 mg capsule,delayed release(DR/EC) 40 mg PO DAILY Qty: 90 0RF hydralazine 100 mg tablet 100 mg PO TID Qty: 90 1RF guaifenesin 1,200 mg tablet extended release 12hr 600 mg PO BID Qty: 60 2RF Spiriva Respimat 1.25 mcg/actuation mist See Rx Instructions .ROUTE .COMPLEX Qty: 4 2RF Dose Instruction: INHALE 2 PUFFS BY MOUTH DAILY Rx Instructions: INHALE 2 PUFFS BY MOUTH DAILY lidocaine 5 % adhesive patch,medicated 1 patch topical DAILY PRN (Reason: Pain) Qty: 30 3RF Rx Instructions: leave on most painful area for up to 12 hrs melatonin 10 mg capsule 10 mg PO QHS Qty: 90 0RF fluticasone propionate 50 mcg/actuation spray,suspension See Rx Instructions .ROUTE .COMPLEX Qty: 16 1RF Dose Instruction: USE 1 SPRAY IN EACH NOSTRIL TWICE A DAY FOR ALLERGIES Rx Instructions: USE 1 SPRAY IN EACH NOSTRIL TWICE A DAY FOR ALLERGIES polyethylene glycol 3350 [Miralax] 17 gram/dose powder 17 g PO BID PRN (Reason: Constipation) Qty: 238 3RF carvedilol 3.125 mg tablet See Rx Instructions .ROUTE .COMPLEX Qty: 60 3RF Dose Instruction: TAKE 1 TABLET BY MOUTH TWICE A DAY WITH A MEAL/FOOD Rx Instructions: TAKE 1 TABLET BY MOUTH TWICE A DAY WITH A MEAL/FOOD Primary Care Provider: Elizabeth Santamaria Referrals: Elizabeth Santamaria MD [Primary Care Provider] - Disposition Disposition: Acute Care Hospital [facility]
[2023-11-14 19:30] VITALS: BP 125/52; PULSE 72; RESP 16; O2SAT 98
[2023-11-14] MEDS: morphine 8 MG/ML Syringe IV (19:44)
[2023-11-14] MEDS: Ondansetron 4 MG/2 ML Vial IV (19:44)
--- NOTE | 2023-11-14 19:57 | ED.RN ---
Meds given late as MRI took pt prior to medicating.
[2023-11-14 21:37] VITALS: BP 135/91; PULSE 78; RESP 16; O2SAT 98
--- OUTSIDE RECORDS SUMMARY | 2023-11-14 22:27 | XMS RPT_ITS | CCD ---
Author Name Unknown Address [address] [place] [address] [facility] Care Team Providers Care Bulk Driver Name Role Phone Emely Hdez Unavailable Emely [...] CHRISTOPHER Unavailable Unavailable JUAN, ANASTACIA Unavailable Unavailable Kenyetta Lackey Unavailable Emely Hdez Y Unavailable Required, No Pcp Unavailable Unavailable Cody Mahmood Unavailable Unavailable Dr. Cody Mahmood Attending Unavailable Ramon SPEARS, Scarlet Livingston Primary Care Provider [phone] Shan Hay Unavailable [phone] GEORGE BEY Attending Unavailable SCARLET DELVALLE Primary Care Unavailable SHAN HAY Referring Unavaila ble Allergies Allergy Classification Reported Allergen(s) Allergy Type Date of Onset Reaction(s) Facility (9 sources) acetaminophen / codeine drug allergy 01-21-20 15 [facility] Work Phone: (9 sources) atropine / hyoscyamine / PHENobarbital / scopolamine drug allergy 01-21-20 15 [facility] Work Phone: (9 sources) codeine drug allergy 01-21-20 15 [facility] Work Phone: [phone] (9 sources) iodine drug allergy 01-21-20 15 [facility] Work Phone: (9 sources) Latex rubber gloves drug allergy 01-21-20 15 [facility] Work Phone: [phone] (9 sources) ramipril drug allergy 01-21-20 15 [facility] Work Phone: (9 sources) sulfaSALAzine drug allergy 01-21-20 15 [facility] Work Phone: [phone] (9 sources) valproate drug allergy 01-21-20 15 [facility] Work Phone: (4 sources) amLODIPine; Translations: [AMLODIPINE] Drug Allergy 09-24-20 17 GI Upset [facility] Repository (4 sources) codeine; Translations: [CODEINE] Drug Allergy 08-22-20 05 Shortness of Breath [facility] Repository (4 sources) Contrast media; Translations: [CONTRAST DYE] Propensity to adverse reactions to drug (disorder) 10-31-19 13 Shortness of Breath [facility]ository (4 sources) famotidine; Translations: [FAMOTIDINE] Drug Allergy 09-07-20 15 Hives [facility] Repository (4 sources) HYDROmorphone; Translations: [HYDROMORPHONE (BULK)] Drug Allergy 09-07-20 15 Rash [facility] Repository (5 sources) Latex; Translations: [LATEX] Propensity to adverse reactions (disorder) 08-22-20 05 Rash [facility] Repository (4 sources) pantoprazole; Translations: [PANTOPRAZOLE] Drug Allergy 08-24-20 15 Rash [facility]ository (4 sources) ramipril; Translations: [RAMIPRIL] Drug Allergy 08-22-20 05 Intolerance [facility] Repository (4 sources) Sulfonamides (Antibiotic); Translations: [SULFA (SULFONAMIDE ANTIBIOTICS)] Propensity to adverse reactions to drug (disorder) 08-22-20 05 Vomiting [facility] Repository (4 sources) valproate; Translations: [DIVALPROEX SODIUM] Drug Allergy 07-04-20 11 Shortness of Breath [facility] Repository (4 sources) ziprasidone; Translations: [ZIPRASIDONE HCL] Drug Allergy 07-29-20 15 Intolerance [facility] Repository (4 sources) PHENERGAN PLAIN; Translations: [PHENERGAN PLAIN] Propensity to adverse reactions to drug (disorder) 08-24-20 15 Anaphylaxis [facility] Repository (4 sources) PHENOBARB-BELLADONNA ALKALOIDS; Translations: [PHENOBARB-BELLADONNA ALKALOIDS] Propensity to adverse reactions to drug (disorder) 08-22-20 05 Hives [facility] Repository (4 sources) HYDROCODONE-GUAIFENESI N; Translations: [HYDROCODONE-GUAIFENES IN] Propensity to adverse reactions to drug (disorder) 08-22-20 05 Itching [facility] Repository (1 source) DrugAllergiesUnable to Obtain [facility] Medications Current Medications Medication Drug Class(es) Dates [...] AERS As needed - 90mcg/inh ALBUTEROL SULFATE [id number] Charity Bentley RN Problems Active Problems Problem [...] blood pressure 74 mm[Hg] No Pcp Required [facility] 09-26-2022 22:10-0500 Heart rate 68 /min No Pcp Required [facility] 09-26-2022 22:10-0500 Respiratory rate 18 /min No Pcp Required [facility] 09-26-2022 22:10-0500 SaO2% (BldA) [Mass fraction] 97 % No Pcp Required [facility] 09-26-2022 22:10-0500 Systolic blood pressure 138 mm[Hg] No Pcp Required [facility] 09-26-2022 17:03-0500 Body height 162.5 cm No Pcp Required [facility] 09-26-2022 17:03-0500 Body temperature 98.42 [degF] No Pcp Required [facility] 09-26-2022 17:03-0500 Body weight 117 kg No Pcp Required [facility] 07-06-2017 16:06-0400 BMI (Body Mass Index) 36.04 [...] Mass Index) 30.38 kg/m2 Charity Bentley RN [facility] Work Phone: 03-17-2015 16:08-0400 Weight 80.29 kg [facility] Work Phone: 01-20-2015 10:11-0400 BP Diastolic 68 mm[Hg] [facility] Work Phone: 01-20-2015 10:11-0400 BP Systolic 103 mm[Hg] Charity Bentley RN [facility] Work Phone: 01-20-2015 10:11-0400 Height 162.56 cm [facility] Work Phone: 01-20-2015 10:11-0400 Pulse (Heart Rate) 65 /min [facility] Work Phone: Encounters Encounter Date Encounter Type Care Provider Facility Start: 06-08-2023 End: 06-08-2023 ambulatory GEORGE BEY Facility:[facility] Start: 06-08-2023 End: 06-08-2023 Patient encounter procedure [...] Wilian Mcguire MD Start: 07-06-2017 End: 07-26-2017 [facility] Wilian Mcguire MD Start: 07-04-2017 End: [...] PCV20) PNEUMOCOCCAL (3 - PPSV23 or PCV20) [facility] Start: 09-26-2025 DIABETES SCREEN DIABETES SCREEN [facility] Start: 09-07-2024 LIPID SCREEN LIPID SCREEN [facility] Start: 12-22-2023 Urine microalbumin profile DTAP,TDAP,TD (2 - Td or Tdap) [facility] Start: 06-15-2023 Influenza vaccination INFLUENZA (#1) [facility] Start: 09-26-2022 End: 09-29-2022 Iohexol (Omnipaque 350-Radiology Contrast) . ; (OMNIPAQUE)DOSE = 150 mL IntraVenous Push OnceCa.2821 mL/Kg/DOSE x 117 Kg = 150 mL/Dose (Daily Total is 150 mL) Start: 26-Sep-2022 End: 28-Sep-2022 Ordered: 26-Sep-2022 Nel Calles [facility] Start: 03-03-2020 HPV TESTING HPV TESTING [facility] Start: 03-03-2020 PAP TESTING PAP TESTING [facility] Start: 06-25-2019 ANNUAL PCP TEAM CHRONIC DISEASE VISIT ANNUAL PCP TEAM CHRONIC DISEASE VISIT [facility] Start: 12-24-2018 Mammography MAMMOGRAM [facility] Start: 03-05-2018 Colonoscopy COLONOSCOPY [facility] Start: 03-05-2018 COLORECTAL CANCER SCREENING COLORECTAL CANCER SCREENING [facility] Start: 08-01-2017 End: 08-01-2017 Appointment Appointment [facility] Work Phone: Start: 07-27-2017 End: 07-27-2017 Appointment Appointment [facility] Work Phone: Start: 07-06-2017 End: 07-06-2017 Appointment Appointment [facility] Work Phone: Start: 07-06-2017 End: 07-06-2017 *BMP *BMP [facility] Work Phone: Start: 07-06-2017 End: 07-26-2017 Follow up Appt 3 weeks Follow up Appt 3 weeks [facility] Work Phone: Start: 07-06-2017 End: 07-26-2017 [facility] [employer] Work Phone: Start: 07-06-2017 End: 07-06-2017 *BMP *BMP [employer] Work Phone: Start: 07-06-2017 End: 07-06-2017 Follow up Appt 3 weeks Follow up Appt 3 weeks [employer] Work Phone: Start: 07-06-2017 End: 07-06-2017 [facility] [employer] Work Phone: Start: 07-04-2017 End: 07-04-2017 Radiologic exam knee complete 4/more views X-Ray, Knee [employer] Work Phone: Start: 07-04-2017 End: 07-04-2017 Appointment Appointment [employer] Work Phone: Start: 07-04-2017 End: 07-04-2017 Appointment Appointment [employer] Work Phone: Start: 07-04-2017 End: 07-04-2017 X-ray exam, knee, 4 or more X-Ray, Knee [employer] Work Phone: Start: 01-26-2014 SHINGRIX VACCINE (1 of 2) SHINGRIX VACCINE (1 of 2) [facility] Start: 01-26-2009 COLOGUARD (FIT-DNA) COLOGUARD (FIT-DNA) [facility] Start: 01-26-[address] COLONOGRAPHY [facility] Start: 01-26-2009 FECAL OCCULT BLOOD FECAL OCCULT BLOOD [facility] Start: 01-26-2009 SIGMOIDOSCOPY SIGMOIDOSCOPY [facility] Start: 01-26-1982 BP CONTROLLED (<130/80) BP CONTROLLED (<130/80) [facility] Start: 01-26-1982 HIV SCREENING HIV SCREENING [facility] Start: 1965 COVID-19 VACCINE (#1) COVID-19 VACCINE (#1) [facility] Patient Education CARPAL%20TUNNE L%20SYNDRO ME [employer] Work Phone: Immunizations Immunization Date Immunization Notes Care Provider Fa alberto 08-10-2020 pneumococcal conjuga te vaccine, 13 valent George Bey MD Work Phone: [facility] 07-29-2015 influenza, injectabl e, quadrivalent, contains preservative George Bey MD Work Phone: [facility] 07-21-2014 influenza, seasonal, injectable George Bey MD Work Phone: [facility] 12-21-2013 tetanus toxoid, redu narciso diphtheria toxoid, and acellular pertussis vaccine, adsorbed George Bey MD Work Phone: [facility] Work Phone: 07-17-2013 influenza virus vacc ine, unspecified formulation George Bey MD Work Phone: [facility] 10-02-2012 influenza virus vacc ine, unspecified formulation George Bey MD Work Phone: [facility] 08-10-2011 influenza virus vacc ine, unspecified formulation George Bey MD Work Phone: [facility] 08-10-2011 pneumococcal polysaccharide vaccine, 23 valent George Bey MD Work Phone: [facility] Payers Date Payer Category Payer Medicaid [facility] MEDICA[employer] [place] [id number] 2022-Present [phone] [address] [place] [address] Medicaid [id number] 2022 Medicaid [id number] 1965 Unknown [id number] Medicaid [id number] Unknown [employer] [place]\[employer] MED[place] Medicaid [id number] Social History Date Type Detail Facility [facility] Tobacco smoking consumption unknown [facility] Start: 02-12-1994 Tobacco smoking stat us GAIS Smokes tobacco daily [facility] Start: 02-12-1994 End: 01-23-2019 History of tobacco use Cigarette Smoker [facility] Start: 06-08-2023 Cigarettes smoked current (pack per day) - Reported 0.5 [facility] Start: 06-08-2023 Tobacco use and exposure Smokeless tobacco non-user [facility] Start: 06-08-2023 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 [facility] Start: 1965 Sex Assigned At Female C [facility] Start: 09-22-2020 Gender identity Identifies as female gender (finding) [facility] Start: 09-22-2020 Sexual orientation Heterosexual (fin ding) [facility] Progress note 06-08-2023 Note Date & Type Note Facility 06-08-2023 Note HNO ID: [id number] Author: George Bey MD Service: ? Author [...] PhD Vitreoretinal Surgery AND Ocular Inflammatory Diseases [facility] History of Present illness Narrative 06-08-2023 George [...] PhD Vitreoretinal Surgery & Ocular Inflammatory Diseases [facility] documented in this encounter [facility] History of Past illness Narrative 12-31-2017 Note Date & Type Note Facility documented as of this encounter (statuses as of 06/09/2023) [facility] Evaluation note Note Date & Type Note Facility documented in this encounter [facility] Summary Purpose Family History No Family History [...] DATE CREATED AUTHOR AUTHOR'S ORGANIZ ATION 04/05/2018 [facility] DATE CREATED AUTHOR AUTHOR'S ORGANIZ ATION 01/06/2020 [facility] DATE CREATED AUTHOR AUTHOR'S ORGANIZ ATION 09/03/2020 [facility] DATE CREATED AUTHOR AUTHOR'S ORGANIZ ATION 11/23/2022 [facility] DATE CREATED AUTHOR AUTHOR'S ORGANIZ ATION 06/09/2023 [facility] <item> Privacy Markings (unrecogniz ed section [...] or prosecute any alcohol or drug abuse patient.[facility] Reason for Visit (unrecogniz ed section and [...] BE BASED ON THE PRIMARY CLINICAL RECORDS. [facility] [employer] [facility]. provides no warranty or guarantee of the accuracy or completeness of information in this document.
--- NOTE | 2023-11-14 23:12 | HP.PCM.HOS_ITS ---
[facility] - General General Date of Admission: 11/14/23 Date of Service: 11/14/23 Chief Complaint: intractable back pain HPI Narrative NIGHAT TIMMONS, is a 58 F who presented to the emergency department at [facility] on 11/14/2023 from pain management office for a right-sided lumbar radiculopathy. She was hoping she could get an MRI performed to rule out any problems. She been having low back pain since January and in the last 2 to 3 weeks she developed some tingling and numbness down her right leg. Her pain and slowly worsened and the tingling and numbness is persistent. She is complaining of weakness in that leg however denies any saddle anesthesia or bowel/bladder incontinence. She has had no falls, no fevers no chills and no urinary retention. She has had no previous intervention on her back. A lumbar spine MR I was performed in the emergency department and she was found to have degenerative changes at L4 and L5 with facet arthropathy and a complex cyst on the right encroaching upon the lateral recess with narrowing of the neuroforamina as well as some disc bulging at L4 and L5 the complex cyst is 1.6 x 1.3 cm. She also has some moderate canal stenosis. Given the fact that she is having increased pain, decreased strength in the leg and tingling and numbness request for admission was made for evaluation by orthopedic spine surgery as well as pain management and physical and Occupational Therapy. Labs are pending at the time of admission. [facility] Medical History Abdominal pain Allergic rhinitis Aortic valve insufficiency Arthralgia of right hip Arthritis Asthma Back pain Bilateral flank pain Bilateral foot pain Bipolar 1 disorder Bipolar disorder Blackout Bladder disease Cancer Cardiology follow-up encounter Chest pain Chronic cough CKD (chronic kidney disease) Colitis Conversion disorder with abnormal movement Convulsion, non-epileptic COPD, mild COVID-19 virus infection CPAP (continuous positive airway pressure) dependence Cyclic vomiting syndrome Cyst Debility Degenerative tear of meniscus of left knee Depression Diarrhea Dietary restriction Difficulty chewing Disease of gingiva due to infection Dysuria Easy bruising Enchondroma of left humerus Enlarged aorta Excessive bleeding Family history of colon cancer Gastric reflux Gastritis Heart failure High cholesterol Hip dislocation, right History of abnormal cervical Pap smear History of atrial fibrillation History of CHF (congestive heart failure) History of echocardiogram History of edema History of hiatal hernia History of Holter monitoring History of IBS History of renal disease History of skin cancer History of steroid therapy History of stress test History of ulceration HTN (hypertension) Hx of tilt table evaluation Hypertensive crisis without congestive heart failure Hypokalemia Hyponatremia Hypothyroidism Impingement of left shoulder Injury of head and neck Intertriginous dermatitis associated with moisture Kidney disease Left arm swelling Leg cramps Loss of hearing Marijuana use Migraines Morbid obesity Myositis Non-convulsive status epilepticus Non-rheumatic mitral regurgitation Nonrheumatic aortic (valve) insufficiency Open wound Oral candidiasis Orthostatic hypotension DAPHNE (obstructive sleep apnea) Osteoarthritis Osteoarthritis of left knee Osteoarthritis of right hip PAF (paroxysmal atrial fibrillation) Pain of left calf Peripheral artery disease Post-menopausal Psychosis Pulmonary embolism Restless legs Sarcoidosis Schizo NEC, chrn/exacerb Schizophrenia Seizures Shortness of breath on exertion Sleep apnea Smoker Stroke Stroke/cerebrovascular accident Syncope Thyroid disease TIA (transient ischemic attack) Venous insufficiency of both lower extremities Walker as ambulation aid Wears dentures Wears glasses Home Medications miconazole nitrate 2 % topical powder (Desenex) 1 applic topical BID rash 02/27/22 [History Last Taken 06/25/23] prochlorperazine maleate 5 mg tablet (Compazine) 5 mg PO BID PRN nausea and vomiting #20 tabs 03/23/22 [Rx Last Taken Unknown] ipratropium 0.5 mg-albuterol 3 mg (2.5 mg base)/3 mL nebulization soln 3 ml inhalation Q4H PRN PRN SOB &/OR WHEEZING #180 mL 06/07/22 [Rx Last Taken Unknown] nicotine (polacrilex) 4 mg buccal mini lozenge 4 mg buccal Q6H PRN nicotine cravings #81 ea 10/10/22 [Rx Last Taken 06/25/23] aripiprazole 5 mg tablet (Abilify) 15 mg PO DAILY 11/27/22 [History Last Taken 06/25/23] hydroxyzine HCl 10 mg tablet 100 mg PO QHS anxiety 11/27/22 [History Last Taken 06/25/23] budesonide-formoterol HFA 160 mcg-4.5 mcg/actuation aerosol inhaler (Symbicort) 2 puff inhalation BID wheezing #10.2 grams 12/18/22 [Rx Last Taken 06/26/23] ondansetron 4 mg disintegrating tablet 4 mg PO Q8H PRN nausea and vomiting #60 tabs 04/30/23 [Rx Last Taken Unknown] albuterol sulfate 90 mcg/actuation aerosol inhaler 2 puff inhalation Q4H PRN shortness of breath or wheezing #8.5 grams 05/08/23 [Rx Last Taken Unknown] mepolizumab 100 mg/mL subcutaneous auto-injector (Nucala) 100 mg subcut Q4W #1 mL 06/06/23 [Rx Last Taken Unknown] nitroglycerin 0.4 mg sublingual tablet 0.4 mg sublingual PRN PRN CHEST PAIN #25 tabs 07/09/23 [Rx Last Taken Unknown] furosemide 20 mg tablet See Rx Instructions .Route .COMPLEX #30 tabs 07/26/23 [Rx Last Taken Unknown] montelukast 10 mg tablet (Singulair) 10 mg PO QHS allergies #30 tabs 07/30/23 [Rx Last Taken Unknown] aspirin 81 mg tablet,delayed release See Rx Instructions .Route .COMPLEX #30 tabs 08/22/23 [Rx Last Taken Unknown] levothyroxine 50 mcg tablet See Rx Instructions .Route .COMPLEX #30 tabs 08/22/23 [Rx Last Taken Unknown] loratadine 10 mg tablet See Rx Instructions .Route .COMPLEX #30 tabs 08/22/23 [Rx Last Taken Unknown] losartan 100 mg tablet See Rx Instructions .Route .COMPLEX #30 tabs 08/22/23 [Rx Last Taken Unknown] spironolactone 25 mg tablet See Rx Instructions .Route .COMPLEX #30 tabs 08/22/23 [Rx Last Taken Unknown] esomeprazole magnesium 40 mg capsule,delayed release 40 mg PO DAILY #90 caps 09/13/23 [Rx Last Taken Unknown] guaifenesin 1,200 mg tablet, extended release 12 hr 600 mg (1/2 x 1,200 mg) PO BID allergies #60 tabs 09/20/23 [Rx Last Taken Unknown] hydralazine 100 mg tablet 100 mg PO TID blood pressure #90 tabs 09/20/23 [Rx Last Taken Unknown] tiotropium bromide 1.25 mcg/actuation mist for inhalation (Spiriva Respimat) See Rx Instructions .Route .COMPLEX #4 grams 09/21/23 [Rx Last Taken Unknown] lidocaine 5 % topical patch 1 patch topical DAILY PRN Pain #30 ea 09/25/23 [Rx Last Taken Unknown] melatonin 10 mg capsule 10 mg PO QHS insomnia #90 caps 10/18/23 [Rx Last Taken Unknown] fluticasone propionate 50 mcg/actuation nasal spray,suspension See Rx Instructions .Route .COMPLEX #16 grams 11/05/23 [Rx Last Taken Unknown] polyethylene glycol 3350 17 gram/dose oral powder (Miralax) 17 g PO BID PRN Constipation #238 grams 11/12/23 [Rx Last Taken Unknown] benztropine 0.5 mg tablet 0.5 mg PO TID 11/14/23 [History Last Taken Unknown] carboxymethylcellulose sodium 0.5 % eye drops 1 drp ophthalmic (eye) BID 11/14/23 [History Last Taken Unknown] carvedilol 3.125 mg tablet See Rx Instructions .Route .COMPLEX #60 tabs 11/14/23 [Rx Last Taken Unknown] nifedipine 60 mg tablet,extended release 30 mg PO Q12H 11/14/23 [History Last Taken Unknown] trazodone 100 mg tablet 100 mg PO QHS 11/14/23 [History Last Taken Unknown] Allergy/AdvReac Type Severity Reaction Status Date / Time adhesive tape Allergy Rash Verified 11/14/23 15:37 atropine sulfate Allergy Hives Verified 11/14/23 15:37 [From ] codeine phosphate Allergy breathing Verified 11/14/23 15:37 [From Tylenol-Codeine #3] problems divalproex sodium Allergy Unknown Verified 11/14/23 15:37 [From Depakote] guaifenesin Allergy Itching Verified 11/14/23 15:37 hydrocodone Allergy Itching Verified 11/14/23 15:37 hydromorphone HCl Allergy facial Verified 11/14/23 15:37 [From Dilaudid] blisters,itching hyoscyamine sulfate Allergy Hives Verified 11/14/23 15:37 [From ] Iodinated Contrast Media Allergy breathing Verified 11/14/23 15:37 [Iodinated Contrast Media - problems IV Dye] and my bp went up latex Allergy Rash Verified 11/14/23 15:37 pantoprazole sodium Allergy Rash Verified 11/14/23 15:37 [From Protonix] phenobarbital [From ] Allergy Hives Verified 11/14/23 15:37 promethazine HCl Allergy Anaphylaxis Verified 11/14/23 15:37 [From Phenergan] ramipril Allergy Unknown Verified 11/14/23 15:37 scopolamine hydrobromide Allergy Hives Verified 11/14/23 15:37 [From ] tramadol Allergy Itching Verified 11/14/23 15:37 ziprasidone mesylate Allergy Unknown Verified 11/14/23 15:37 [From Geodon] amlodipine AdvReac Vomiting Verified 11/14/23 15:37 levofloxacin [From Levaquin] AdvReac Itching Verified 11/14/23 15:37 metoclopramide [From Reglan] AdvReac Other Verified 11/14/23 15:37 Sulfa (Sulfonamide AdvReac Vomiting Verified 11/14/23 15:37 Antibiotics) ziprasidone HCl [From Geodon] AdvReac tremors Verified 11/14/23 15:37 Family History Sister Myocardial infarction Colon cancer Mother Hypertension Arthritis Brain aneurysm Heart disease High cholesterol Sister Colon cancer Heart disease High cholesterol Hypertension Arthritis Grandmother Arthritis Diabetes CVA (cerebral vascular accident) Father Heart disease High cholesterol Hypertension Surgical History bladder sling Cataract extraction status History of esophagogastroduodenoscopy (EGD) History of laparoscopic cholecystectomy History of uterine suspension procedure Hx of colonoscopy left foot S/P carpal tunnel release Social History household members: none number of children: 4 current occupational status: unemployed history of recent travel: No Smoking Status: Current every day smoker tobacco type: cigarettes Tobacco: How many years used: 26 Electronic Cigarette Use: not used quit status: considering quitting alcohol intake: never substance use type: does not use caffeine: Yes Type: coffee what type of physical activity do you participate in: none seatbelt use: never do you feel safe at home: Yes additional social history: single ROS Constitutional Constitutional: Denies anorexia, change in weight, chills, fatigue, fever(s), malaise, night sweats, weakness or other Eyes Eyes: Denies blurry vision, change in eye color, change in vision, discharge from eye(s), double vision, erythema, eye pain, loss of vision or other ENT HEENT: Denies abnormal hearing, dysphagia, ear pain, epistaxis, headache(s), hearing loss, nasal congestion, nasal discharge, post nasal drip, sinus pressure, sore throat or other Cardiovascular Cardiovascular: Denies chest pain, claudication, dyspnea on exertion, edema, lightheadedness, orthopnea, palpitations, paroxysmal nocturnal dyspnea, rapid heart rate, syncope or other Respiratory/Chest Respiratory/Chest: Reports cough; Denies dyspnea, excessive phlegm production, hemoptysis, productive cough, shortness of breath at rest, shortness of breath with exertion, wheezing or other Gastrointestinal Gastrointestinal: Denies abdominal pain, coffee ground emesis, constipation, diarrhea, dyspepsia, hematemesis, hematochezia, loose stools, melena, nausea, vomiting or other Genitourinary Genitourinary: Denies burning urination, difficulty urinating, dysuria, hematuria, nocturia, urinary frequency, urinary hesitancy, urinary incontinence, urinary urgency or other Musculoskeletal Musculoskeletal: Reports back pain, joint pain and joint stiffness Neurologic Neurologic: Reports abnormal gait, focal weakness, numbness and paresthesias; Denies abnormal speech, confusion, disequilibrium, dizziness, headache(s), seizure-like activity, seizures, syncope, tingling, tremor(s) or other Psychiatric Psychiatric: Reports anxiety and depression; Denies homicidal ideation, suicidal ideation or other Endocrine Endocrinology: Denies change in body appearance, cold intolerance, excessive sweating, heat intolerance, polydipsia, polyuria or other Hematologic/Lymphatic Hematologic/Lymphatic: Denies anemia, easy bleeding, easy bruising, lymphadenopathy or other Allergic/Immunologic Allergic/Immunologic: Reports asthma; Denies rhinitis, hives, eczemia or other Vital Signs Vital Signs Vital Signs: 11/14/23 15:37 11/14/23 19:30 11/14/23 19:30 Temperature 98 F Temperature Source Temporal Pulse Rate 83 72 Respiratory Rate 18 16 Respiratory Effort Normal Non-Labored Respiratory Pattern Normal Blood Pressure 150/102 H 125/52 H Blood Pressure Mean 118 76 Pulse Ox 98 Oxygen Delivery Method Room Air 11/14/23 21:37 Temperature Temperature Source Pulse Rate 78 Respiratory Rate 16 Respiratory Effort Respiratory Pattern Blood Pressure 135/91 H Blood Pressure Mean 105 Pulse Ox 98 Oxygen Delivery Method Physical Exam Const alert, oriented x3, no apparent distress and well nourished Constitutional Narrative: Chronically ill-appearing, morbidly obese, white female, lying in bed in left side-lying, watching television, appears comfortable and nontoxic General Appearance: cooperative HEENT normocephalic, head/scalp atraumatic, hearing grossly normal bilaterally and moist oral mucous membranes HEENT Narrative: Mallampati is 3, edentulous, no thrush Eyes PERRL, EOMs intact bilaterally and conjunctivae normal Eyes Narrative: No significant scleral icterus Neck no lymphadenopathy and supple Neck Narrative: Neck is short and thick, trachea midline, no thyroid enlargement Resp normal respiratory effort, no retractions, no use of accessory muscles and clear to auscultation bilaterally Resp Narrative: Intermittent rhonchorous sounding cough with deep breathing however lungs are clear but markedly diminished diffusely Auscultation: Negative for rales, rhonchi or wheezes Cardio regular rate, regular rhythm, S1 normal heart sound, S2 normal heart sound, no murmurs, no rub, no gallops and no clicks Cardio Narrative: Distant due to body habitus GI normal to inspection, nondistended, normoactive bowel sounds, soft to palpation and non-tender GI Narrative: Large protuberant abdomen Extremity no clubbing, cyanosis or edema Extremity Narrative: Pedal pulses are 2+ Skin no rashes or lesions noted, no wounds, skin turgor normal, no jaundice, no petechiae and no mottling Neuro oriented x3 and moves all extremities Neuro Narrative: Right lower extremity weakness with some questionable effort during right straight leg raise and dorsiflexion, Babinski is unremarkable, reflexes are 1+ bilaterally, altered sensation distal right lower extremity throughout the entire right foot and lateral and posterior in the leg and thigh Speech: speech normal Psych affect normal Psych Narrative: Eye contact is good, patient interacts appropriately, nontoxic Results Imaging Radiology Impression Lumbar Spine MRI 11/14/23 18:09 IMPRESSION: Degenerative change. L4-5 facet arthropathy with complex cyst on the right encroaching upon the lateral recess and narrowing the neural foramen. Electronically Signed: Tomy Duncan MD at 20:30 EST , Assessment & Plan Assessment/Plan (1) Synovial cyst of lumbar spine: (2) Intractable back pain: (3) Difficulty in walking: PLAN: Plan Intractable back pain with lumbar radiculopathy due to complex cyst at L4-L5 -MRI shows complex cyst and canal stenosis at L4-L5 -Consult orthopedic spine for evaluation -If is not a surgical candidate would recommend pain management consult as patient is currently following with pain management for her shoulder -Scheduled Tylenol -As needed oxycodone -Gabapentin 100 mg 3 times daily -Continue home lidocaine patch -Tizanidine as needed -PT/OT consultation -Will check CBC/CMP/coags which are pending on admission DAPHNE -Continue home CPAP at 10 cmH2O nightly and with naps -If patient requires surgery would extubate to CPAP Asthma/COPD/overlap syndrome/allergies -Continue home inhalers -Continue home as needed nebulizers -Restart home Nucala injections after discharge--> patient has eosinophilic asthma -Continue home Singulair -Continue home guaifenesin -Continue home steroid nasal spray -Recommend ongoing outpatient pulmonary medicine follow-up Mild aortic stenosis -Most recent echo 05/24/2023 -Echo showed EF of 65% with mild concentric LVH and mild aortic stenosis with 1+ aortic valve insufficiency -Continue outpatient monitoring History of schizophrenia -Continue home medications including aripiprazole, benzatropine, hydroxyzine, trazodone Hypothyroidism -Continue home levothyroxine Cyclic vomiting syndrome -Continue home as needed antiemetics History of constipation -Continue home as needed polyethylene glycol Hypertension -Continue home Aldactone -Continue home nifedipine -Continue home losartan -Continue home hydralazine -Continue home carvedilol GERD -Hold home PPI as she is allergic to Protonix and on esomeprazole at home -Our substitution therapeutically is Protonix from what she gets a rash -Restart as esomeprazole at discharge Tobacco abuse -Recommend cessation -Currently using 1 pack of cigarettes daily -Nicotine patch available -Patient is currently contemplating stopping Morbid obesity -Recommend weight loss -Complicates treatment, prognosis, outcomes DVT prophylaxis -SCDs for now -If patient not surgical candidate would start subcu injections with either Lovenox or heparin as her mobility is problematic CODE STATUS Full code is verified on admission Charges/Coding Visit Charges Inpatient E&M: 12990 Init Hosp L2
--- OUTSIDE RECORDS SUMMARY | 2023-11-14 23:28 | XMS RPT_ITS | CCD ---
Author Name Unknown Address [address] [place] [address] Organization [facility] Care Team Providers Care Hair Assistant Name Role Phone Emely Hdez Unavailable Emely [...] SPEARS, Scarlet Livingston Primary Care Provider [phone] Shan Hay Unavailable GEORGE BEY Attending Unavailable SCARLET DELVALLE Primary Care Unavailable SHAN HAY Referring Unavaila ble Allergies Allergy Classification Reported Allergen(s) Allergy Type Date of Onset Reaction(s) Facility (9 sources) acetaminophen / codeine drug allergy 01-21-20 15 [facility] Work Phone: (9 sources) atropine / hyoscyamine / PHENobarbital / scopolamine drug allergy 01-21-20 15 [facility] Work Phone: (9 sources) codeine drug allergy 01-21-20 15 [facility] Work Phone: [phone] (9 sources) iodine drug allergy 01-21-20 15 [facility] Work Phone: (9 sources) Latex rubber gloves drug allergy 01-21-20 15 [facility] Work Phone: [phone] (9 sources) ramipril drug allergy 01-21-20 15 [facility] Work Phone: (9 sources) sulfaSALAzine drug allergy 01-21-20 15 [facility] Work Phone: [phone] (9 sources) valproate drug allergy 01-21-20 15 [facility] Work Phone: (4 sources) amLODIPine; Translations: [AMLODIPINE] Drug Allergy 09-24-20 17 GI Upset [facility] Repository (4 sources) codeine; Translations: [CODEINE] Drug Allergy 08-22-20 05 Shortness of Breath [facility] Repository (4 sources) Contrast media; Translations: [CONTRAST DYE] Propensity to adverse reactions to drug (disorder) 10-31-19 13 Shortness of Breath [facility] Repository (4 sources) famotidine; Translations: [FAMOTIDINE] Drug Allergy 09-07-20 15 Hives [facility] Repository (4 sources) HYDROmorphone; Translations: [HYDROMORPHONE (BULK)] Drug Allergy 09-07-20 15 Rash [facility] Repository (5 sources) Latex; Translations: [LATEX] Propensity to adverse reactions (disorder) 08-22-20 05 Rash [facility] Repository (4 sources) pantoprazole; Translations: [PANTOPRAZOLE] Drug Allergy 08-24-20 15 Rash [facility] Repository (4 sources) ramipril; Translations: [RAMIPRIL] Drug Allergy 08-22-20 05 Intolerance [facility] Repository (4 sources) Sulfonamides (Antibiotic); Translations: [SULFA (SULFONAMIDE ANTIBIOTICS)] Propensity to adverse reactions to drug (disorder) 08-22-20 05 Vomiting [facility] Repository (4 sources) valproate; Translations: [DIVALPROEX SODIUM] Drug Allergy 07-04-20 11 Shortness of Breath [facility] Repository (4 sources) ziprasidone; Translations: [ZIPRASIDONE HCL] Drug Allergy 07-29-20 15 Intolerance [facility] Repository (4 sources) PHENERGAN PLAIN; Translations: [PHENERGAN PLAIN] Propensity to adverse reactions to drug (disorder) 08-24-20 15 Anaphylaxis [facility] Repository (4 sources) PHENOBARB-BELLADONNA ALKALOIDS; Translations: [PHENOBARB-BELLADONNA ALKALOIDS] Propensity to adverse reactions to drug (disorder) 08-22-20 05 Hives [facility] Repository (4 sources) HYDROCODONE-GUAIFENESI N; Translations: [HYDROCODONE-GUAIFENES IN] Propensity to adverse reactions to drug (disorder) 08-22-20 05 Itching [facility] Repository (1 source) DrugAllergiesUnable to Obtain [facility] Medications Current Medications Medication Drug Class(es) Dates [...] AERS As needed - 90mcg/inh ALBUTEROL SULFATE [id number] Charity Bentley RN Problems Active Problems Problem [...] blood pressure 74 mm[Hg] No Pcp Required [facility] 09-26-2022 22:10-0500 Heart rate 68 /min No Pcp Required [facility] 09-26-2022 22:10-0500 Respiratory rate 18 /min No Pcp Required [facility] 09-26-2022 22:10-0500 SaO2% (BldA) [Mass fraction] 97 % No Pcp Required [facility] 09-26-2022 22:10-0500 Systolic blood pressure 138 mm[Hg] No Pcp Required [facility] 09-26-2022 17:03-0500 Body height 162.5 cm No Pcp Required [facility] 09-26-2022 17:03-0500 Body temperature 98.42 [degF] No Pcp Required [facility] 09-26-2022 17:03-0500 Body weight 117 kg No Pcp Required [facility] 07-06-2017 16:06-0400 BMI (Body Mass Index) 36.04 [...] Mass Index) 30.38 kg/m2 Charity Bentley RN [facility] Work Phone: 03-17-2015 16:08-0400 Weight 80.29 kg [facility] Work Phone: 01-20-2015 10:11-0400 BP Diastolic 68 mm[Hg] [facility] Work Phone: 01-20-2015 10:11-0400 BP Systolic 103 mm[Hg] Charity Bentley RN [facility] Work Phone: 01-20-2015 10:11-0400 Height 162.56 cm [facility] Work Phone: 01-20-2015 10:11-0400 Pulse (Heart Rate) 65 /min [facility] Work Phone: Encounters Encounter Date Encounter Type Care Provider Facility Start: 06-08-2023 End: 06-08-2023 ambulatory GEORGE BEY Facility:[facility] Start: 06-08-2023 End: 06-08-2023 Patient [...] Wilian Mcguire MD Start: 07-06-2017 End: 07-26-2017 [facility] Wilian Mcguire MD Start: 07-04-2017 End: [...] PCV20) PNEUMOCOCCAL (3 - PPSV23 or PCV20) [facility] Start: 09-26-2025 DIABETES SCREEN DIABETES SCREEN [facility] Start: 09-07-2024 LIPID SCREEN LIPID SCREEN [facility] Start: 12-22-2023 Urine microalbumin profile DTAP,TDAP,TD (2 - Td or Tdap) [facility] Start: 06-15-2023 Influenza vaccination INFLUENZA (#1) [facility] Start: 09-26-2022 End: 09-29-2022 Iohexol (Omnipaque 350-Radiology Contrast) . ; (OMNIPAQUE)DOSE = 150 mL IntraVenous Push OnceCa.2821 mL/Kg/DOSE x 117 Kg = 150 mL/Dose (Daily Total is 150 mL) Start: 26-Sep-2022 End: 28-Sep-2022 Ordered: 26-Sep-2022 Nel Calles [facility] Start: 03-03-2020 HPV TESTING HPV TESTING [facility] Start: 03-03-2020 PAP TESTING PAP TESTING [facility] Start: 06-25-2019 ANNUAL PCP TEAM CHRONIC DISEASE VISIT ANNUAL PCP TEAM CHRONIC DISEASE VISIT [facility] Start: 12-24-2018 Mammography MAMMOGRAM [facility] Start: 03-05-2018 Colonoscopy COLONOSCOPY [facility] Start: 03-05-2018 COLORECTAL CANCER SCREENING COLORECTAL CANCER SCREENING [facility] Start: 08-01-2017 End: 08-01-2017 Appointment Appointment [facility] Work Phone: Start: 07-27-2017 End: 07-27-2017 Appointment Appointment [facility] Work Phone: Start: 07-06-2017 End: 07-06-2017 Appointment Appointment [facility] Work Phone: Start: 07-06-2017 End: 07-06-2017 *BMP *BMP [facility] Work Phone: Start: 07-06-2017 End: 07-26-2017 Follow up Appt 3 weeks Follow up Appt 3 weeks [facility] Work Phone: Start: 07-06-2017 End: 07-26-2017 [facility] Work Phone: Start: 07-06-2017 End: 07-06-2017 *BMP *BMP [facility] Work Phone: Start: 07-06-2017 End: 07-06-2017 Follow up Appt 3 weeks Follow up Appt 3 weeks [facility] Work Phone: Start: 07-06-2017 End: 07-06-2017 [facility] Work Phone: Start: 07-04-2017 End: 07-04-2017 Radiologic exam knee complete 4/more views X-Ray, Knee [facility] Work Phone: Start: 07-04-2017 End: 07-04-2017 Appointment Appointment [facility] Work Phone: Start: 07-04-2017 End: 07-04-2017 Appointment Appointment [facility] Work Phone: Start: 07-04-2017 End: 07-04-2017 X-ray exam, knee, 4 or more X-Ray, Knee [facility] Work Phone: Start: 01-26-2014 SHINGRIX VACCINE (1 of 2) SHINGRIX VACCINE (1 of 2) [facility] Start: 01-26-2009 COLOGUARD (FIT-DNA) COLOGUARD (FIT-DNA) [facility] Start: 01-26-[address] COLONOGRAPHY [facility] Start: 01-26-2009 FECAL OCCULT BLOOD FECAL OCCULT BLOOD [facility] Start: 01-26-2009 SIGMOIDOSCOPY SIGMOIDOSCOPY [facility] Start: 01-26-1982 BP CONTROLLED (<130/80) BP CONTROLLED (<130/80) [facility] Start: 01-26-1982 HIV SCREENING HIV SCREENING [facility] Start: 1965 COVID-19 VACCINE (#1) COVID-19 VACCINE (#1) [facility] Patient Education CARPAL%20TUNNE L%20SYNDRO ME [facility] Work Phone: Immunizations Immunization Date Immunization Notes Care Provider Fa alberto 08-10-2020 pneumococcal conjuga te vaccine, 13 valent George Bey MD Work Phone: [facility] 07-29-2015 influenza, injectabl e, quadrivalent, contains preservative George Bey MD Work Phone: [facility] 07-21-2014 influenza, seasonal, injectable George Bey MD Work Phone: [facility] 12-21-2013 tetanus toxoid, redu narciso diphtheria toxoid, and acellular pertussis vaccine, adsorbed George Bey MD Work Phone: [facility] Work Phone: 07-17-2013 influenza virus vacc ine, unspecified formulation George Bey MD Work Phone: [facility] 10-02-2012 influenza virus vacc ine, unspecified formulation George Bey MD Work Phone: [facility] 08-10-2011 influenza virus vacc ine, unspecified formulation George Bey MD Work Phone: [facility] 08-10-2011 pneumococcal polysaccharide vaccine, 23 valent George Bey MD Work Phone: [facility] Payers Date Payer Category Payer Medicaid [facility] MEDICAID [employer] [employer] [place] [id number] 2022-Present [phone] [address] [place] [address] Medicaid [id number] 2022 Medicaid [id number] 1965 Unknown [id number] Medicaid [id number] Unknown [employer] [place] Medicaid [id number] Social History Date Type Detail Facility [facility] Tobacco smoking consumption unknown [facility] Start: 02-12-1994 Tobacco smoking stat us KYIS Smokes tobacco daily [facility] Start: 02-12-1994 End: 01-23-2019 History of tobacco use Cigarette Smoker [facility] Start: 06-08-2023 Cigarettes smoked current (pack per day) - Reported 0.5 [facility] Start: 06-08-2023 Tobacco use and exposure Smokeless tobacco non-user [facility] Start: 06-08-2023 Alcohol intake Current non-dr cnmt of alcohol (finding) [facility] Start: 06-08-2023 Tobacco use panel [facility] National Score (1-10 0), lower number is lower risk 66 [facility] Start: 06-08-2023 Tobacco Comment Parents smoked in childhood home. [facility] Start: 1965 Sex Assigned At Female [facility] Start: 09-22-2020 Gender identity Identifies as female gender (finding) [facility] Start: 09-22-2020 Sexual orientation Heterosexual (fin ding) [facility] Progress note 06-08-2023 Note Date & Type Note Facility 06-08-2023 Note HNO ID: [id number] Author: George Bey MD Service: ? Author [...] PhD Vitreoretinal Surgery AND Ocular Inflammatory Diseases [facility] History of Present illness Narrative 06-08-2023 George [...] PhD Vitreoretinal Surgery & Ocular Inflammatory Diseases [facility] documented in this encounter [facility] History of Past illness Narrative 12-31-2017 Note Date & Type Note Facility documented as of this encounter (statuses as of 06/09/2023) [facility] Evaluation note Note Date & Type Note Facility documented in this encounter [facility] Summary Purpose Family History No Family [...] DATE CREATED AUTHOR AUTHOR'S ORGANIZ ATION 04/05/2018 [facility] DATE CREATED AUTHOR AUTHOR'S ORGANIZ ATION 01/06/2020 [facility] [place] DATE CREATED AUTHOR AUTHOR'S ORGANIZ ATION 09/03/2020 [facility] DATE CREATED AUTHOR AUTHOR'S ORGANIZ ATION 11/23/2022 [facility] DATE CREATED AUTHOR AUTHOR'S ORGANIZ ATION 06/09/2023 [facility] <item> Privacy Markings (unrecogniz ed section [...] or prosecute any alcohol or drug abuse patient.[facility] Reason for Visit (unrecogniz ed section [...] BE BASED ON THE PRIMARY CLINICAL RECORDS. [facility]. provides no warranty or guarantee of the accuracy or completeness of information in this document.
[2023-11-14 23:47] LABS: Absolute Lymphocyte Count 1.79 X10^3/uL (0.83-4.51); Absolute Neutrophil Count 5.9 X10^3/uL (2.0-7.7); Basophil# 0.03 X10^3/uL; Basophil% 0.4 % (0-1); Eosinophil# 0.04 X10^3/uL; Eosinophils% 0.5 % (0-5); Hematocrit 42.3 % (37-47); Lymphocyte # 1.79 X10^3/ul (0.83-4.51); Mean Corp Hgb Conc 33.1 g/dL (32-36); Mean Corpuscular Hgb 29.4 pg (27.0-32.0); Mean Corpuscular Volume 88.9 fL (81-99); Mean Platelet Vol. 9.2 fl (6.2-12.0); Monocyte# 0.69 X10^3/uL; Monocyte% 8.1 % (0-10); NRBC Flagged by Analyzer 0 % (0-5); Neutrophil # 5.94 X10^3/uL (2.7-7.7); Neutrophil % 69.8 % (47-70); Platelet Count 260 K/mm3 (150-450); RBC Distribution Width CV 13.1 % (11.6-14.6); RBC Distribution Width SD 42.5 fl (35.1-43.9); Red Blood Count 4.76 M/mm3 (4.2-5.4); White Blood Count 8.5 K/mm3 (4.4-11.0)
[2023-11-14 23:58] VITALS: PULSE 94; RESP 22; O2SAT 96
[2023-11-15] VITALS (10 sets, daily range): BP systolic 109–131; BP diastolic 56–94; PULSE 56–85; RESP 16–18; TEMP 36.6–37.2; O2SAT 93–97; BMI 45.3
[2023-11-15 00:06] LABS: ALB/GLOB Ratio 1.1 RATIO (0.9-2.4); AST(SGOT) 31 U/L (15-37); Alanine Aminotransfer ALT/SGPT 39 U/L (13-56); Albumin, Serum 3.2 g/dL (3.2-5.0); Alkaline Phosphatase 107 U/L (45-117); Anion Gap 3 (5-15); BUN 14 mg/dL (7-18); BUN/Creat Ratio 10.4 RATIO (10-20); Calcium,Total 9.1 mg/dL (8.5-10.1); Chloride 102 mmol/L (98-107); Creatinine, Serum 1.35 mg/dL (0.55-1.02); EST Glomerular Filtration Rate 43 mL/min (>60); Est Glom Filt Rate - Afr Amer 52 mL/min (>60); Globulin 2.8 g/dL (2.2-4.2); Glucose 111 mg/dL (74-106); Potassium 3.7 mmol/L (3.5-5.1); Sodium Level 132 mmol/L (136-145)
[2023-11-15 00:26] LABS: Prothrombin Time (Protime)PT. 13.4 SECONDS (11.7-14.9)
[2023-11-15 00:27] LABS: Partial Thromboplast Time 25.5 Seconds (24.1-36.2)
[2023-11-15] MEDS: Benztropine Mesylate 0.5 MG TABLET PO ×3 (03:49→20:35)
[2023-11-15] MEDS: hydrALAZINE 50 MG Tablet 100 MG PO ×3 (03:49→20:33)
[2023-11-15] MEDS: oxyCODONE 5 MG Tablet PO ×4 (03:49→20:42)
[2023-11-15] MEDS: Acetaminophen 500 MG Tablet 1000 MG PO ×3 (03:49→20:38)
[2023-11-15] MEDS: Levothyroxine 50 MCG Tablet PO (03:49)
[2023-11-15 04:24] LABS: Absolute Neutrophil Count 4.3 X10^3/uL (2.0-7.7); Basophil# 0.01 X10^3/uL; Basophil% 0.2 % (0-1); Eosinophil# 0.05 X10^3/uL; Eosinophils% 0.8 % (0-5); Hematocrit 42.6 % (37-47); Hemoglobin 14.1 g/dL (12.0-15.0); Lymphocyte % 19.6 % (19-41); Mean Corp Hgb Conc 33.1 g/dL (32-36); Mean Corpuscular Hgb 29.3 pg (27.0-32.0); Mean Corpuscular Volume 88.6 fL (81-99); Mean Platelet Vol. 9.2 fl (6.2-12.0); Monocyte# 0.53 X10^3/uL; Monocyte% 8.6 % (0-10); NRBC Flagged by Analyzer 0 % (0-5); Neutrophil # 4.32 X10^3/uL (2.7-7.7); Neutrophil % 70.5 % (47-70); Platelet Count 264 K/mm3 (150-450); RBC Distribution Width CV 13.2 % (11.6-14.6); RBC Distribution Width SD 42.7 fl (35.1-43.9); Red Blood Count 4.81 M/mm3 (4.2-5.4); White Blood Count 6.1 K/mm3 (4.4-11.0)
[2023-11-15 04:42] LABS: Anion Gap 3 (5-15); BUN 14 mg/dL (7-18); BUN/Creat Ratio 11.1 RATIO (10-20); Calcium,Total 8.7 mg/dL (8.5-10.1); Chloride 103 mmol/L (98-107); Creatinine, Serum 1.26 mg/dL (0.55-1.02); EST Glomerular Filtration Rate 46 mL/min (>60); Est Glom Filt Rate - Afr Amer 56 mL/min (>60); Estimated Creatinine Clearance 61.25 ml/min; Glucose 113 mg/dL (74-106); Magnesium 2.1 mg/dL (1.6-2.6); Phosphorus 3.3 mg/dL (2.5-4.9); Potassium 3.6 mmol/L (3.5-5.1); Sodium Level 133 mmol/L (136-145)
[2023-11-15] MEDS: Budesonide Respules 0.5 MG/2 ML AMPUL.NEB. INHALATION ×2 (06:47→19:20)
[2023-11-15] MEDS: Ipratropium/Albuterol Sulfate 3 ML AMPUL.NEB INHALATION (06:47)
[2023-11-15] MEDS: Ondansetron ODT 4 MG Tablet PO (09:45)
[2023-11-15] MEDS: Loratadine 10 MG Tablet PO (09:48)
[2023-11-15] MEDS: guaiFENesin 600 MG Tablet PO ×2 (09:48→20:36)
[2023-11-15] MEDS: ARIPiprazole 5 MG Tablet 15 MG PO (09:48)
[2023-11-15] MEDS: Furosemide 20 MG Tablet PO (09:48)
[2023-11-15] MEDS: Losartan Potassium 100 MG Tablet PO (09:48)
[2023-11-15] MEDS: Carvedilol 3.125 MG TABLET PO ×2 (09:48→17:46)
[2023-11-15] MEDS: NIFEdipine 30 MG Tablet PO ×2 (09:49→20:40)
[2023-11-15] MEDS: CARBOXYMETHYLCELLULOSE SODIUM 1 DRP DROPS OPHTHALMIC ×2 (09:49→20:37)
[2023-11-15] MEDS: Fluticasone 0.05% 1 SPRAY NASAL.SRY NASAL ×2 (09:50→20:39)
[2023-11-15] MEDS: Gabapentin 100 MG Capsule PO ×3 (09:52→17:50)
--- NOTE | 2023-11-15 11:13 | CASEMGMT ---
CHITRA ALLISON Assessment Face to Face with patient for initial transition planning/care coordination assessment. CHITRA ALLISON introduced self and role at [facility], pt voices understanding. Pt is A&Ox4 and is resting comfortably in chair and is calm. Care providers, pharmacy, and demographics verified. Admitting dx: Back pain LACE Strata: 2 PCP: Rosalio Specialists: German (Pulm), Abdullahi (Cardio), Julienne (ENT), Magui (Event Manager), Yong ([facility]), Kacy (Pain) Preferred Pharmacy: [facility] Insurance: The [employer] Prescription Benefit: YES LNOK: Denies Living Arrangements: Pt lives alone in a single floor apartment with no steps to enter. 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 This CHITRA ALLISON consulted JOANNA Brizuela and Chata states she will see the pt regarding Direction home. Transportation: Pt does not drive. Pt uses [facility] Van DME: CPAP, P. Ox, Shower chair with GB, Rollator, walker, cane, BP cuff. Pt states she normally uses a cane but she will use the rollator for longer distances. HHC/SNF: History at [facility] for a stroke x3 weeks. Pt states she was seen by HHC PT x3 weeks after. Pt could not recall the name of the agency. Pt?s goal: Home Plan: Pt 6-Click is 20. PT still needs to eval the pt. Pt states that she refuses outpt therapy and SNF. States she would be interested in HHC and also house aides. Will follow for potential HH and JOANNA Brizuela consulted for assistance with home care. Miki Aguiar RN, CM
--- NOTE | 2023-11-15 12:43 | PCM.PN.HOSP ---
Subjective Subjective Doing well, no issues overnight. Continues to have right lower extremity pain as well as numbness and weakness Objective Data Objective Data Vital Signs: Vital Signs Temp Pulse Resp BP Pulse Ox O2 Del Method 98.9 F 74 16 131/94 H 97 Room Air 11/15/23 09:46 11/15/23 09:46 11/15/23 09:46 11/15/23 09:46 11/15/23 09:46 11/15/23 09:46 Oxygen Delivery Method Room Air Weight: 263 lb 14.293 oz Body Mass Index (BMI) 45.3 Intake & Output: Intake and Output for Last 24 Hours 11/14/23 11/15/23 11/16/23 03:59 03:59 03:59 Intake Total 240 / 240 Balance 240 / 240 Lab / Micro Data 11/15/23 04:00 11/15/23 04:00 Labs: Laboratory Results - last 24 hr 11/14/23 23:38: WBC 8.5, RBC 4.76, Hgb 14.0, Hct 42.3, MCV 88.9, MCH 29.4, MCHC 33.1, RDW Std Deviation 42.5, RDW Coeff of Yonathan 13.1, Plt Count 260, MPV 9.2, Immature Gran % (Auto) 0.200, Neut % (Auto) 69.8, Lymph % (Auto) 21.0, [place] % (Auto) 8.1, Eos % (Auto) 0.5, Baso % (Auto) 0.4, Absolute Neuts (auto) 5.9, Absolute Lymphs (auto) 1.79, Nucleated RBC % 0, PT 13.4, INR 1.0, APTT 25.5, Sodium 132 L, Potassium 3.7, Chloride 102, Carbon Dioxide 27.0, Anion Gap 3 L, BUN 14, Creatinine 1.35 H, Est GFR (MDRD) Af Amer 52 L, Est GFR (MDRD) Non-Af 43 L, BUN/Creatinine Ratio 10.4, Glucose 111 H, Calcium 9.1, Total Bilirubin 0.50, AST 31, ALT 39, Alkaline Phosphatase 107, Total Protein 6.0 L, Albumin 3.2, Globulin 2.8, Albumin/Globulin Ratio 1.1 11/15/23 04:00: WBC 6.1, RBC 4.81, Hgb 14.1, Hct 42.6, MCV 88.6, MCH 29.3, MCHC 33.1, RDW Std Deviation 42.7, RDW Coeff of Yonathan 13.2, Plt Count 264, MPV 9.2, Immature Gran % (Auto) 0.300, Neut % (Auto) 70.5 H, Lymph % (Auto) 19.6, [place] % (Auto) 8.6, Eos % (Auto) 0.8, Baso % (Auto) 0.2, Absolute Neuts (auto) 4.3, Absolute Lymphs (auto) 1.20, Nucleated RBC % 0, Sodium 133 L, Potassium 3.6, Chloride 103, Carbon Dioxide 27.0, Anion Gap 3 L, BUN 14, Creatinine 1.26 H, Estim Creat Clear Calc 61.25, Est GFR (MDRD) Af Amer 56 L, Est GFR (MDRD) Non-Af 46 L, BUN/Creatinine Ratio 11.1, Glucose 113 H, Calcium 8.7, Phosphorus 3.3, Magnesium 2.1 Radiography Diagnostic Testing: Radiology Impression Lumbar Spine MRI 11/14/23 18:09 IMPRESSION: Degenerative change. L4-5 facet arthropathy with complex cyst on the right encroaching upon the lateral recess and narrowing the neural foramen. Electronically Signed: Tomy Duncan MD at 20:30 EST , Physical Exam Narrative General: Alert, Oriented x3, Cooperative, No apparent distress HEENT: Atraumatic, PERRLA, EOMI, Normocephalic Oral: Moist Mucosa Neck: Supple, No JVD Lungs: Diminished, Normal air movement, No rhonchi, No wheeze, No rales Cardiovascular: Regular rate, Regular Rhythm, Normal S1, Normal S2, No murmurs Abdomen: Soft, Non Tender, Non-Distended, No Hepato-splenomegaly Extremities: No edema, Capillary Refill Less than 3 Seconds Skin: No rashes, No breakdown Musculoskeletal: No Tenderness to Palpation of Joints or Extremities Neurological: Right lower extremity weakness with weakness dorsiflexion and extension of her right foot with decreased sensation Psych/Mental Status: Normal Affect, Appropriate Assessment & Plan Assessment/Plan (1) Synovial cyst of lumbar spine: (2) Intractable back pain: (3) Difficulty in walking: PLAN: Plan 1. Intractable back pain with lumbar radiculopathy secondary to complex cyst at L4-L5 ? MRI with a complex cyst and canal stenosis at L4-L5 ? Will consult orthospine ? PT/OT ? She does follow with pain management for her shoulder so if this is nonoperative we will need to follow-up with pain management as an outpatient ? Continue with pain management while inpatient 2. HTN/HLD/aortic stenosis ? Blood pressures are stable, continue with her home blood pressure medications ? We will monitor make adjustments as necessary ? Echo with an EF of 65% and mild concentric LVH with mild aortic stenosis with a 1+ aortic valve insufficiency on 05/24/2023 3. Asthma?COPD overlap syndrome/DAPHNE ? Continue with her home inhalers ? She is not in an exacerbation ? Will monitor and adjust as necessary ? Continue with her home CPAP 4. Schizophrenia ? Stable ? Continue with her home medications 5. Hypothyroidism ? Stable ? Continue with Synthroid 6. GERD ? Stable ? She is allergic to Protonix so we will hold secondary to the fact that we do not carry her home medication DVT: SCDs Charges/Coding Visit Charges Inpatient E&M: 21287 Subs Hosp L2
[2023-11-15] MEDS: Albuterol 2.5 MG/3 ML VIAL.NEB. INHALATION ×2 (13:05→19:20)
[2023-11-15] MEDS: proCHLORPERazine 5 MG Tablet PO (14:17)
--- NOTE | 2023-11-15 16:11 | CASEMGMT ---
Social Work SW received referral from RNCM that pt is interested in help at home. SW met with pt and introduced self and role of SW. Pt states she lives alone and has been having difficulty with things like cooking, dishes, laundry and housekeeping tasks. Chart review indicates pt was referred to the Waiver program in October 2020 and SW inquired about this. Pt states she was denied for this service at this time but would like to try again. SW inquired about meals on wheels and pt does not have this but is interested. Pt does states that she has a case monitor through [employer] [facility]. CM assist with transportation to appointments and errands and talkes with pt. Pt has not contacts listed. SW broached this topic. Initially pt states she has no one to list. Upon further discussion, pt states she has 4 children. Romero Owens and Shay Owens with whom she does not have a relationship. Nathan Ricketts, a son who she talks to every other weekend. Pt refused to give SW his phone number as he doesn't want to be called . Scott Farrell, a daughter who lives in [place] whom pt periodically talks to . Pt was willing to give SW Scott's phone number in case of an emergency. [phone]. Demographic sheet updated. SW will follow up with pt for resources including home delivered meals and the waiver program. JUAN Preston
[2023-11-15] MEDS: Lidocaine 5% Patch 1 PATCH TOPICAL (17:46)
[2023-11-15] MEDS: Spironolactone 25 MG Tablet PO (20:32)
[2023-11-15] MEDS: tiZANidine HCl 2 MG Tablet 4 MG PO (20:32)
[2023-11-15] MEDS: Montelukast 10 MG Tablet PO (20:36)
[2023-11-15] MEDS: hydrOXYzine PAM 25 MG Capsule 100 MG PO (20:37)
[2023-11-15] MEDS: traZODone 100 MG Tablet PO (20:39)
[2023-11-15] MEDS: MELATONIN 10 MG TABLET PO (20:39)
[2023-11-16] VITALS (7 sets, daily range): BP systolic 111–140; BP diastolic 50–68; PULSE 62–85; RESP 14–18; TEMP 36.3–36.6; O2SAT 95–97
[2023-11-16 03:58] LABS: Absolute Lymphocyte Count 1.34 X10^3/uL (0.83-4.51); Absolute Neutrophil Count 3.7 X10^3/uL (2.0-7.7); Basophil# 0.03 X10^3/uL; Basophil% 0.5 % (0-1); Eosinophil# 0.06 X10^3/uL; Eosinophils% 1.1 % (0-5); Hemoglobin 13.5 g/dL (12.0-15.0); Lymphocyte # 1.34 X10^3/ul (0.83-4.51); Lymphocyte % 23.6 % (19-41); Mean Corp Hgb Conc 32.9 g/dL (32-36); Mean Corpuscular Hgb 29.7 pg (27.0-32.0); Mean Corpuscular Volume 90.3 fL (81-99); Mean Platelet Vol. 9.3 fl (6.2-12.0); Monocyte# 0.52 X10^3/uL; Monocyte% 9.2 % (0-10); NRBC Flagged by Analyzer 0 % (0-5); Neutrophil # 3.71 X10^3/uL (2.7-7.7); Neutrophil % 65.2 % (47-70); Platelet Count 235 K/mm3 (150-450); RBC Distribution Width CV 13.2 % (11.6-14.6); RBC Distribution Width SD 43.6 fl (35.1-43.9); Red Blood Count 4.54 M/mm3 (4.2-5.4); White Blood Count 5.7 K/mm3 (4.4-11.0)
[2023-11-16 04:11] LABS: Anion Gap 4 (5-15); BUN 18 mg/dL (7-18); BUN/Creat Ratio 14.4 RATIO (10-20); Calcium,Total 8.8 mg/dL (8.5-10.1); Chloride 98 mmol/L (98-107); Creatinine, Serum 1.25 mg/dL (0.55-1.02); EST Glomerular Filtration Rate 47 mL/min (>60); Est Glom Filt Rate - Afr Amer 56 mL/min (>60); Estimated Creatinine Clearance 61.74 ml/min; Glucose 116 mg/dL (74-106); Potassium 3.6 mmol/L (3.5-5.1); Sodium Level 128 mmol/L (136-145)
[2023-11-16] MEDS: hydrALAZINE 50 MG Tablet 100 MG PO ×2 (06:43→14:06)
[2023-11-16] MEDS: Acetaminophen 500 MG Tablet 1000 MG PO ×2 (06:44→14:04)
[2023-11-16] MEDS: Benztropine Mesylate 0.5 MG TABLET PO ×2 (06:44→14:03)
[2023-11-16] MEDS: Levothyroxine 50 MCG Tablet PO (06:44)
[2023-11-16] MEDS: Albuterol 2.5 MG/3 ML VIAL.NEB. INHALATION ×2 (07:30→13:39)
[2023-11-16] MEDS: Budesonide Respules 0.5 MG/2 ML AMPUL.NEB. INHALATION (07:30)
[2023-11-16] MEDS: Loratadine 10 MG Tablet PO (08:11)
[2023-11-16] MEDS: Fluticasone 0.05% 1 SPRAY NASAL.SRY NASAL (08:11)
[2023-11-16] MEDS: Carvedilol 3.125 MG TABLET PO (08:12)
[2023-11-16] MEDS: guaiFENesin 600 MG Tablet PO (08:12)
[2023-11-16] MEDS: Furosemide 20 MG Tablet PO (08:12)
[2023-11-16] MEDS: ARIPiprazole 5 MG Tablet 15 MG PO (08:12)
[2023-11-16] MEDS: CARBOXYMETHYLCELLULOSE SODIUM 1 DRP DROPS OPHTHALMIC (08:13)
[2023-11-16] MEDS: Gabapentin 100 MG Capsule PO ×2 (08:16→11:11)
[2023-11-16] MEDS: oxyCODONE 5 MG Tablet PO (08:16)
--- NOTE | 2023-11-16 09:57 | CASEMGMT ---
Discharge Planning A list of?HH providers including quality and resource use data and consistent with the patient's preferred geographic region, medical needs, and insurance network was created in [employer] Guide.? This list was provided to the RN ESTEFANY. Catrachita Villeda, Discharge Planning Asst.
--- NOTE | 2023-11-16 10:24 | CASEMGMT ---
Addendum entered by Jeremiah Aguiar 11/16/23 13:22: [facility] states they cannot accept the pt and the pt may need SNF per PT. JOANNA Villarreal is following Addendum entered by Jeremiah Aguiar 11/16/23 10:50: Referral made to [facility] ([place]). Awaiting return call. Original Note: List of local in [facility] agencies (printed by the DC cafe assistant) provided to the pt. Pt chooses [facility] and denies other agencies at this time. Pt DC plan is uncertain at this time but this RN CM to call [facility] for referral.
--- NOTE | 2023-11-16 10:53 | CASEMGMT ---
Social Work SW met w/pt in regard to resources. 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 She could not recall her CM's last name however, does not her first name is Sobeida. SW called, message left, and she did call back, her name is Sobeida Segura. SW completed the Waiver application and put in mail to S. Pt also agreeable to Meals on Wheels referral, SW completed the referral online. SW remains available for any additional social service needs. CORA Blunt
[2023-11-16 11:10] LABS: Mucous, Urine 0 SEEN /hpf (<or=2+); Red Blood Cells-Urine 0 SEEN /hpf (0-5); White Blood Cells 0 SEEN /hpf (0-5)
[2023-11-16] MEDS: NIFEdipine 30 MG Tablet PO (11:11)
[2023-11-16] MEDS: Losartan Potassium 100 MG Tablet PO (11:11)
[2023-11-16 11:26] LABS: Color, Urine Yellow (Yellow); Glucose, Dipstick Normal (Normal); Ketone-Dipstick Negative (Negative); Leukocyte Esterase-Dipstick Negative /ul (Negative); Nitrite-Dipstick Positive (Negative); Occult Blood-Urine Negative /ul (Negative); Protein-Dipstick Negative (Negative); Urine Bilirubin Dipstick Negative (Negative); Urine Clarity Sl. Cloudy (Clear); Urine Urobilinogen Normal (Normal)
[2023-11-16 11:50] LABS: Bacteria 2+ /hpf (None Seen); Squamous Epithelial Cells - UA 0-5 SEEN /hpf (5-10)
--- NOTE | 2023-11-16 11:56 | CASEMGMT ---
Social Work SW spoke with RN, pt did not move well with therapy, walked 30 feet and told RN she needs to go 200 to get to her front door. SW met w/pt, we spoke about options at discharge. She would like to go to SNF. provided to pt a list via [facility] of fpc facilities in pt's insurance network, preferred geographic area, and complete w/quality and resource use data. Pt would like a referral sent to [facility]/cailin computer lab assistant will send the referral. SW will continue to follow. CORA Blunt
--- NOTE | 2023-11-16 12:11 | CON.PCM.OR_ITS ---
HPI Consult Data Date of Consult: 11/16/23 HPI Narrative Reason for Consultation: Back pain radiating to the right lower extremity HPI Narrative: The patient is a 58-year-old female here with complaints of acute severe exacerbation of chronic low back pain with pain and paresthesias radiating to the right lower extremity for the past day or so. She denies any history of back surgeries or recent back injections. She describes pain in the lumbosacral region radiating to the right gluteal region with pain and paresthesias in the right posterior thigh and calf. She denies any other acute numbness tingling weakness or changes in bowel or bladder function. She has been admitted for intractable back pain from her pain management clinic. She does have a lumbar MRI and orthospine has been consulted for further evaluation. [facility] Medical History Abdominal pain Allergic rhinitis Aortic valve insufficiency Arthralgia of right hip Arthritis Asthma Back pain Bilateral flank pain Bilateral foot pain Bipolar 1 disorder Bipolar disorder Blackout Bladder disease Cancer Cardiology follow-up encounter Chest pain Chronic cough CKD (chronic kidney disease) Colitis Conversion disorder with abnormal movement Convulsion, non-epileptic COPD, mild COVID-19 virus infection CPAP (continuous positive airway pressure) dependence Cyclic vomiting syndrome Cyst Debility Degenerative tear of meniscus of left knee Depression Diarrhea Dietary restriction Difficulty chewing Disease of gingiva due to infection Dysuria Easy bruising Enchondroma of left humerus Enlarged aorta Excessive bleeding Family history of colon cancer Gastric reflux Gastritis Heart failure High cholesterol Hip dislocation, right History of abnormal cervical Pap smear History of atrial fibrillation History of CHF (congestive heart failure) History of echocardiogram History of edema History of hiatal hernia History of Holter monitoring History of IBS History of renal disease History of skin cancer History of steroid therapy History of stress test History of ulceration HTN (hypertension) Hx of tilt table evaluation Hypertensive crisis without congestive heart failure Hypokalemia Hyponatremia Hypothyroidism Impingement of left shoulder Injury of head and neck Intertriginous dermatitis associated with moisture Kidney disease Left arm swelling Leg cramps Loss of hearing Marijuana use Migraines Morbid obesity Myositis Non-convulsive status epilepticus Non-rheumatic mitral regurgitation Nonrheumatic aortic (valve) insufficiency Open wound Oral candidiasis Orthostatic hypotension DAPHNE (obstructive sleep apnea) Osteoarthritis Osteoarthritis of left knee Osteoarthritis of right hip PAF (paroxysmal atrial fibrillation) Pain of left calf Peripheral artery disease Post-menopausal Psychosis Pulmonary embolism Restless legs Sarcoidosis Schizo NEC, chrn/exacerb Schizophrenia Seizures Shortness of breath on exertion Sleep apnea Smoker Stroke Stroke/cerebrovascular accident Syncope Thyroid disease TIA (transient ischemic attack) Venous insufficiency of both lower extremities Walker as ambulation aid Wears dentures Wears glasses Home Medications miconazole nitrate 2 % topical powder (Desenex) 1 applic topical BID rash 02/27/22 [History Last Taken 06/25/23] prochlorperazine maleate 5 mg tablet (Compazine) 5 mg PO BID PRN nausea and vomiting #20 tabs 03/23/22 [Rx Last Taken Unknown] ipratropium 0.5 mg-albuterol 3 mg (2.5 mg base)/3 mL nebulization soln 3 ml inhalation Q4H PRN PRN SOB &/OR WHEEZING #180 mL 06/07/22 [Rx Last Taken Unknown] nicotine (polacrilex) 4 mg buccal mini lozenge 4 mg buccal Q6H PRN nicotine cravings #81 ea 10/10/22 [Rx Last Taken 06/25/23] aripiprazole 5 mg tablet (Abilify) 15 mg PO DAILY 11/27/22 [History Last Taken 06/25/23] hydroxyzine HCl 10 mg tablet 100 mg PO QHS anxiety 11/27/22 [History Last Taken 06/25/23] budesonide-formoterol HFA 160 mcg-4.5 mcg/actuation aerosol inhaler (Symbicort) 2 puff inhalation BID wheezing #10.2 grams 12/18/22 [Rx Last Taken 06/26/23] ondansetron 4 mg disintegrating tablet 4 mg PO Q8H PRN nausea and vomiting #60 tabs 04/30/23 [Rx Last Taken Unknown] albuterol sulfate 90 mcg/actuation aerosol inhaler 2 puff inhalation Q4H PRN shortness of breath or wheezing #8.5 grams 05/08/23 [Rx Last Taken Unknown] mepolizumab 100 mg/mL subcutaneous auto-injector (Nucala) 100 mg subcut Q4W #1 mL 06/06/23 [Rx Last Taken Unknown] nitroglycerin 0.4 mg sublingual tablet 0.4 mg sublingual PRN PRN CHEST PAIN #25 tabs 07/09/23 [Rx Last Taken Unknown] furosemide 20 mg tablet See Rx Instructions .Route .COMPLEX #30 tabs 07/26/23 [Rx Last Taken Unknown] montelukast 10 mg tablet (Singulair) 10 mg PO QHS allergies #30 tabs 07/30/23 [Rx Last Taken Unknown] aspirin 81 mg tablet,delayed release See Rx Instructions .Route .COMPLEX #30 tabs 08/22/23 [Rx Last Taken Unknown] levothyroxine 50 mcg tablet See Rx Instructions .Route .COMPLEX #30 tabs 08/22/23 [Rx Last Taken Unknown] loratadine 10 mg tablet See Rx Instructions .Route .COMPLEX #30 tabs 08/22/23 [Rx Last Taken Unknown] losartan 100 mg tablet See Rx Instructions .Route .COMPLEX #30 tabs 08/22/23 [Rx Last Taken Unknown] spironolactone 25 mg tablet See Rx Instructions .Route .COMPLEX #30 tabs 08/22/23 [Rx Last Taken Unknown] guaifenesin 1,200 mg tablet, extended release 12 hr 600 mg (1/2 x 1,200 mg) PO BID allergies #60 tabs 09/20/23 [Rx Last Taken Unknown] tiotropium bromide 1.25 mcg/actuation mist for inhalation (Spiriva Respimat) See Rx Instructions .Route .COMPLEX #4 grams 09/21/23 [Rx Last Taken Unknown] lidocaine 5 % topical patch 1 patch topical DAILY PRN Pain #30 ea 09/25/23 [Rx Last Taken Unknown] melatonin 10 mg capsule 10 mg PO QHS insomnia #90 caps 10/18/23 [Rx Last Taken Unknown] fluticasone propionate 50 mcg/actuation nasal spray,suspension See Rx Instructions .Route .COMPLEX #16 grams 11/05/23 [Rx Last Taken Unknown] polyethylene glycol 3350 17 gram/dose oral powder (Miralax) 17 g PO BID PRN Constipation #238 grams 11/12/23 [Rx Last Taken Unknown] benztropine 0.5 mg tablet 0.5 mg PO TID 11/14/23 [History Last Taken Unknown] carboxymethylcellulose sodium 0.5 % eye drops 1 drp ophthalmic (eye) BID 11/14/23 [History Last Taken Unknown] carvedilol 3.125 mg tablet See Rx Instructions .Route .COMPLEX #60 tabs 11/14/23 [Rx Last Taken Unknown] nifedipine 60 mg tablet,extended release 30 mg PO Q12H 11/14/23 [History Last Taken Unknown] trazodone 100 mg tablet 100 mg PO QHS 11/14/23 [History Last Taken Unknown] esomeprazole magnesium 40 mg capsule,delayed release 40 mg PO DAILY #90 caps 11/15/23 [Rx Last Taken Unknown] hydralazine 100 mg tablet 100 mg PO TID blood pressure #90 tabs 11/15/23 [Rx Last Taken Unknown] Allergy/AdvReac Type Severity Reaction Status Date / Time adhesive tape Allergy Rash Verified 11/14/23 15:37 atropine sulfate Allergy Hives Verified 11/14/23 15:37 [From ] codeine phosphate Allergy breathing Verified 11/14/23 15:37 [From Tylenol-Codeine #3] problems divalproex sodium Allergy Unknown Verified 11/14/23 15:37 [From Depakote] guaifenesin Allergy Itching Verified 11/14/23 15:37 hydrocodone Allergy Itching Verified 11/14/23 15:37 hydromorphone HCl Allergy facial Verified 11/14/23 15:37 [From Dilaudid] blisters,itching hyoscyamine sulfate Allergy Hives Verified 11/14/23 15:37 [From ] Iodinated Contrast Media Allergy breathing Verified 11/14/23 15:37 [Iodinated Contrast Media - problems IV Dye] and my bp went up latex Allergy Rash Verified 11/14/23 15:37 pantoprazole sodium Allergy Rash Verified 11/14/23 15:37 [From Protonix] phenobarbital [From ] Allergy Hives Verified 11/14/23 15:37 promethazine HCl Allergy Anaphylaxis Verified 11/14/23 15:37 [From Phenergan] ramipril Allergy Unknown Verified 11/14/23 15:37 scopolamine hydrobromide Allergy Hives Verified 11/14/23 15:37 [From ] tramadol Allergy Itching Verified 11/14/23 15:37 ziprasidone mesylate Allergy Unknown Verified 11/14/23 15:37 [From Geodon] amlodipine AdvReac Vomiting Verified 11/14/23 15:37 levofloxacin [From Levaquin] AdvReac Itching Verified 11/14/23 15:37 metoclopramide [From Reglan] AdvReac Other Verified 11/14/23 15:37 Sulfa (Sulfonamide AdvReac Vomiting Verified 11/14/23 15:37 Antibiotics) ziprasidone HCl [From Geodon] AdvReac tremors Verified 11/14/23 15:37 Family History Sister Myocardial infarction Colon cancer Mother Hypertension Arthritis Brain aneurysm Heart disease High cholesterol Sister Colon cancer Heart disease High cholesterol Hypertension Arthritis Grandmother Arthritis Diabetes CVA (cerebral vascular accident) Father Heart disease High cholesterol Hypertension Surgical History bladder sling Cataract extraction status History of esophagogastroduodenoscopy (EGD) History of laparoscopic cholecystectomy History of uterine suspension procedure Hx of colonoscopy left foot S/P carpal tunnel release Social History household members: none number of children: 4 current occupational status: unemployed history of recent travel: No Smoking Status: Current every day smoker tobacco type: cigarettes Tobacco: How many years used: 26 Electronic Cigarette Use: not used quit status: considering quitting alcohol intake: never substance use type: does not use caffeine: Yes Type: coffee what type of physical activity do you participate in: none seatbelt use: never do you feel safe at home: Yes additional social history: single Vital Signs Vital Signs Vital Signs: 11/15/23 13:06 11/15/23 14:10 11/15/23 14:13 Temperature 97.8 F Temperature Source Oral Pulse Rate 85 60 60 Pulse Strength Respiratory Rate 18 16 Respiratory Pattern Normal Blood Pressure 115/63 Blood Pressure Mean 80 Blood Pressure Source Monitor Blood Pressure Position Sitting Blood Pressure Location Right Forearm Pulse Ox 95 Oxygen Delivery Method Room Air 11/15/23 20:33 11/15/23 19:20 11/15/23 22:00 Temperature Temperature Source Pulse Rate 72 65 Pulse Strength Normal (2+) Respiratory Rate 18 Respiratory Pattern Normal Blood Pressure Blood Pressure Mean Blood Pressure Source Blood Pressure Position Blood Pressure Location Pulse Ox Oxygen Delivery Method 11/15/23 22:46 11/15/23 20:30 11/16/23 02:30 Temperature 98.4 F 98 F Temperature Source Temporal Temporal Pulse Rate 60 62 Pulse Strength Respiratory Rate 16 14 Respiratory Pattern Blood Pressure 109/56 L 111/58 L Blood Pressure Mean 73 75 Blood Pressure Source Monitor Monitor Blood Pressure Position Semi-Fowlers Semi-Fowlers Blood Pressure Location Right Forearm Right Arm Pulse Ox 97 96 Oxygen Delivery Method Room Air Room Air Room Air 11/16/23 04:06 11/16/23 06:43 11/16/23 07:30 Temperature Temperature Source Pulse Rate 62 70 Pulse Strength Respiratory Rate 18 Respiratory Pattern Normal Blood Pressure Blood Pressure Mean Blood Pressure Source Blood Pressure Position Blood Pressure Location Pulse Ox Oxygen Delivery Method Room Air 11/16/23 07:30 11/16/23 08:07 11/16/23 08:24 Temperature 97.4 F L Temperature Source Oral Pulse Rate 62 Pulse Strength Normal (2+) Respiratory Rate 15 Respiratory Pattern Blood Pressure 118/68 Blood Pressure Mean 84 Blood Pressure Source Monitor Blood Pressure Position Semi-Fowlers Blood Pressure Location Right Forearm Pulse Ox 95 97 Oxygen Delivery Method Room Air Room Air 11/16/23 11:10 Temperature 97.5 F L Temperature Source Oral Pulse Rate 76 Pulse Strength Respiratory Rate 16 Respiratory Pattern Blood Pressure 140/50 H Blood Pressure Mean 80 Blood Pressure Source Monitor Blood Pressure Position Semi-Fowlers Blood Pressure Location Right Forearm Pulse Ox 95 Oxygen Delivery Method Room Air Weight Weight: 263 lb 14.293 oz Body Mass Index (BMI) 45.3 Physical Exam Const alert, oriented x3 and no apparent distress General Appearance: cooperative, comfortable and well kempt Neck full ROM General: normal visual inspection Resp normal respiratory effort and normal air movement Effort and Inspection: able to speak in complete sentences Cardio regular rate and peripheral pulses 2+ throughout GI soft to palpation, non-tender and non-distended Back/Spine Back/Spine Narrative: Mild tenderness in the lumbosacral region bilaterally Cervical Spine: cervical ROM normal Thoracic Spine / Upper Back: normal to inspection Lumbar Spine / Lower Back: normal to inspection Extremity normal to inspection, full ROM, normal capillary refill and no calf tenderness Extremity Narrative: Patient displays 4+ out of 5 strength in right hip flexion and right knee extension. 5- out of 5 strength in right EHL, dorsiflexion and plantarflexion. Examination of the left lower extremity shows 5 out of 5 strength throughout Neuro oriented x3, CN's II-XII intact bilaterally, moves all extremities, no focal motor deficits, no sensory deficits noted and deep tendon reflexes 2+ bilaterally Motor Exam: muscle tone normal throughout Lab / Micro Data 11/16/23 03:50 11/16/23 03:50 Labs: Laboratory Results - last 24 hr 11/16/23 03:50: WBC 5.7, RBC 4.54, Hgb 13.5, Hct 41.0, MCV 90.3, MCH 29.7, MCHC 32.9, RDW Std Deviation 43.6, RDW Coeff of Yonathan 13.2, Plt Count 235, MPV 9.3, Immature Gran % (Auto) 0.400, Neut % (Auto) 65.2, Lymph % (Auto) 23.6, [place] % (Auto) 9.2, Eos % (Auto) 1.1, Baso % (Auto) 0.5, Absolute Neuts (auto) 3.7, Absolute Lymphs (auto) 1.34, Nucleated RBC % 0, Sodium 128 L, Potassium 3.6, Chloride 98, Carbon Dioxide 26.0, Anion Gap 4 L, BUN 18, Creatinine 1.25 H, Estim Creat Clear Calc 61.74, Est GFR (MDRD) Af Amer 56 L, Est GFR (MDRD) Non-Af 47 L, BUN/Creatinine Ratio 14.4, Glucose 116 H, Calcium 8.8 11/16/23 11:05: Urine Color Yellow, Urine Clarity Sl. Cloudy, Urine pH 6.0, Ur Specific [place] 1.010, Urine Protein Negative, Urine Glucose (UA) Normal, Urine Ketones Negative, Urine Occult Blood Negative, Urine Nitrite Positive H, Urine Bilirubin Negative, Urine Urobilinogen Normal, Ur Leukocyte Esterase Negative, Urine RBC 0 SEEN, Urine WBC 0 SEEN, Ur Squamous Epith Cells 0-5 SEEN, Urine Bacteria 2+, Urine Mucus 0 SEEN Assessment & Plan Assessment/Plan (1) Lumbar stenosis: PLAN: I had a lengthy discussion with the patient. I reviewed her imaging with her. Lumbar MRI dated 11/14/2023 shows good overall alignment in the coronal and sagittal planes. Degenerative changes noted at multiple levels most notably at L4-5 and L5-S1. There is also a facet cyst at L4-5 on the right side which I feel is contributing to her complaints. I did explain to her that surgical treatment for this would likely necessitate an L4-5 decompression and fusion which I feel is best done on an elective outpatient basis. In the meantime I recommend pain control and mobilization as tolerated. Consider possible epi dural steroid injection per her pain management doctor. She can follow-up with me in clinic upon discharge. She understands and agrees with the treatment plan (2) Synovial cyst of lumbar spine:
--- NOTE | 2023-11-16 13:20 | CASEMGMT ---
Discharge Planning Referral sent via [facility] to [facility]. Catrachita Villeda, Discharge Planning Asst.
--- NOTE | 2023-11-16 13:55 | CASEMGMT ---
Social Work Pt informed RN that she does not want to go to SNF now. SW spoke w/pt in room in regard to plan. SW inquired w/pt her discharge plan. Pt states she spoke with the doctor and now has a plan to do an injection for her back pain. She states she does not want to go to a SNF now unless she has to do so. SW inquired how she will manage at home as she had told the RN she needs to walk 200 feet to get into her home, and at present she can walk 30. Pt states her friend will bring her the rollator she uses, and if she takes breaks with the rollator and sits down she will be able to get into her home. SW inquired about home health, as CM was setting that up but it was then canceled. Pt would still like home health. SW called [facility], they will re-review the referral and let ESTEFANY Carlos know, if they can take pt. SW remains available if needed, plan now is home w/[facility]. Catrachita, d/c banking assistant, will cancel the referral to [facility]. CORA Blunt
--- NOTE | 2023-11-16 13:58 | CASEMGMT ---
Discharge Planning [facility] updated that patient will discharge home. Catrachita Villeda, Discharge Planning Asst.
--- NOTE | 2023-11-16 14:33 | DCINST_ITS ---
Discharge Instructions Diet Discharge Diet: Low fat / Low cholesterol and 1600 Calorie Control Diet Activity Discharge Activity: Return to Normal Activity Dressing / Incision Call your doctor if you observe: Fever of 101 or Higher, Shortness of breath, Dizziness, Fainting spells, Swelling in the ankles, Chest pain and Increased palpitations (irregular heartbeat) Follow Up Care Test Results: Test results from this visit will be discussed in further detail at your follow- up appointment, if applicable. Discharge Plan Admission Admit Date/Time: 11/14/23 23:00 Attending Provider: Kevin Campo Primary Care Provider: Elizabeth Santamaria Consulting Providers: Afshan Salamanca; Brad Hwang Instructions Additional Instructions / Restrictions: The recommendation was for fdc placement given your difficulty with ambulating however you declined therefore I recommend that you follow-up with your PCP next week for outpatient monitoring I also recommend continued mobilization at home and follow-up with the orthospine surgeon for elective repair as an outpatient. Also I would recommend continued follow-up with pain management in the meantime pending evaluation and possible surgical intervention in the future. Low Discharge Orders/Prescriptions Prescriptions: New oxycodone-acetaminophen [Percocet] 5-325 mg tablet 1 tab PO TID PRN (Reason: pain) 3 Days Qty: 10 0RF Continued ipratropium-albuterol 0.5 mg-3 mg(2.5 mg base)/3 mL solution for nebulization 3 ml inhalation Q4H PRN PRN (Reason: SOB &/OR WHEEZING) Qty: 180 6RF prochlorperazine maleate [Compazine] 5 mg tablet 5 mg PO BID PRN (Reason: nausea and vomiting) Qty: 20 0RF hydroxyzine HCl 10 mg tablet 100 mg PO QHS aripiprazole [Abilify] 5 mg tablet 15 mg PO DAILY miconazole nitrate [Desenex] 2 % powder 1 applic TOPICAL BID carboxymethylcellulose sodium 0.5 % drops 1 drp ophthalmic (eye) BID nifedipine 60 mg tablet extended release 30 mg PO Q12H trazodone 100 mg tablet 100 mg PO QHS benztropine 0.5 mg tablet 0.5 mg PO TID nicotine (polacrilex) 4 mg mini lozenge 4 mg buccal Q6H PRN (Reason: nicotine cravings) Qty: 81 1RF budesonide-formoterol [Symbicort] 160-4.5 mcg/actuation HFA aerosol inhaler 2 puff INHALATION BID Qty: 10.2 11RF ondansetron 4 mg tablet,disintegrating 4 mg PO Q8H PRN (Reason: nausea and vomiting) Qty: 60 1RF albuterol sulfate 90 mcg/actuation HFA aerosol inhaler 2 puff inhalation Q4H PRN (Reason: shortness of breath or wheezing) Qty: 8.5 6RF Rx Instructions: administer with spacer Nucala 100 mg/mL auto-injector 100 mg subcut Q4W Qty: 1 11RF nitroglycerin 0.4 mg tablet, sublingual 0.4 mg SUBLINGUAL PRN PRN (Reason: CHEST PAIN) Qty: 25 3RF furosemide 20 mg tablet See Rx Instructions .ROUTE .COMPLEX Qty: 30 11RF Dose Instruction: TAKE 1 TABLET BY MOUTH DAILY Rx Instructions: TAKE 1 TABLET BY MOUTH DAILY montelukast [Singulair] 10 mg tablet 10 mg PO QHS Qty: 30 5RF losartan 100 mg tablet See Rx Instructions .ROUTE .COMPLEX Qty: 30 5RF Dose Instruction: TAKE 1 TABLET BY MOUTH DAILY FOR BLOOD PRESSURE Rx Instructions: TAKE 1 TABLET BY MOUTH DAILY FOR BLOOD PRESSURE spironolactone 25 mg tablet See Rx Instructions .ROUTE .COMPLEX Qty: 30 5RF Dose Instruction: TAKE 1 TABLET BY MOUTH AT BEDTIME FOR BLOOD PRESSURE Rx Instructions: TAKE 1 TABLET BY MOUTH AT BEDTIME FOR BLOOD PRESSURE aspirin 81 mg tablet,delayed release (DR/EC) See Rx Instructions .ROUTE .COMPLEX Qty: 30 5RF Dose Instruction: TAKE 1 TABLET BY MOUTH EVERY MORNING AROUND 8AM FOR HEART HEALTH Rx Instructions: TAKE 1 TABLET BY MOUTH EVERY MORNING AROUND 8AM FOR HEART HEALTH loratadine 10 mg tablet See Rx Instructions .ROUTE .COMPLEX Qty: 30 5RF Dose Instruction: TAKE 1 TABLET BY MOUTH DAILY FOR ALLERGIES Rx Instructions: TAKE 1 TABLET BY MOUTH DAILY FOR ALLERGIES levothyroxine 50 mcg tablet See Rx Instructions .ROUTE .COMPLEX Qty: 30 5RF Dose Instruction: TAKE 1 TABLET BY MOUTH DAILY FOR THYROID Rx Instructions: TAKE 1 TABLET BY MOUTH DAILY FOR THYROID guaifenesin 1,200 mg tablet extended release 12hr 600 mg PO BID Qty: 60 2RF Spiriva Respimat 1.25 mcg/actuation mist See Rx Instructions .ROUTE .COMPLEX Qty: 4 2RF Dose Instruction: INHALE 2 PUFFS BY MOUTH DAILY Rx Instructions: INHALE 2 PUFFS BY MOUTH DAILY lidocaine 5 % adhesive patch,medicated 1 patch topical DAILY PRN (Reason: Pain) Qty: 30 3RF Rx Instructions: leave on most painful area for up to 12 hrs melatonin 10 mg capsule 10 mg PO QHS Qty: 90 0RF fluticasone propionate 50 mcg/actuation spray,suspension See Rx Instructions .ROUTE .COMPLEX Qty: 16 1RF Dose Instruction: USE 1 SPRAY IN EACH NOSTRIL TWICE A DAY FOR ALLERGIES Rx Instructions: USE 1 SPRAY IN EACH NOSTRIL TWICE A DAY FOR ALLERGIES polyethylene glycol 3350 [Miralax] 17 gram/dose powder 17 g PO BID PRN (Reason: Constipation) Qty: 238 3RF carvedilol 3.125 mg tablet See Rx Instructions .ROUTE .COMPLEX Qty: 60 3RF Dose Instruction: TAKE 1 TABLET BY MOUTH TWICE A DAY WITH A MEAL/FOOD Rx Instructions: TAKE 1 TABLET BY MOUTH TWICE A DAY WITH A MEAL/FOOD esomeprazole magnesium 40 mg capsule,delayed release(DR/EC) 40 mg PO DAILY Qty: 90 0RF hydralazine 100 mg tablet 100 mg PO TID Qty: 90 0RF Referrals / Follow Up: Elizabeth Santamaria MD [Primary Care Provider] - Within 1 Week Brad Hwang DO [Med Staff - Active Staff] - Within 1 Month Disposition Disposition (needs filled in before D/C Order can be placed): Home, Self Care
--- NOTE | 2023-11-16 14:42 | DS.PCM_ITS ---
Providers Date of Admission: 11/14/23 Primary Care Physician: Dr. Elizabeth Santamaria MD Consultations 11/15/23 00:54 Consult: Orthopedics Routine Consulting Provider: Brad Hwang Reason for Consult: L4/L5 complex cyst with lumbar radiculopathy EMERGENT Consult: No MD Notified: Yes Date Notified: 11/15/23 Time Notified: 08:44 Method of Notification: Verbal Reason For Visit: INTRACTABLE BACK PAIN Diagnosis Discharge Diagnosis (1) Lumbar stenosis: Status: Acute Code(s): M48.061 - Spinal stenosis, lumbar region without neurogenic claudication (2) Synovial cyst of lumbar spine: Status: Acute Code(s): M71.38 - Other bursal cyst, other site Medications at Discharge Home Medications miconazole nitrate 2 % topical powder (Desenex) 1 applic topical BID rash 02/27/22 prochlorperazine maleate 5 mg tablet (Compazine) 5 mg PO BID PRN nausea and vomiting #20 tabs 03/23/22 ipratropium 0.5 mg-albuterol 3 mg (2.5 mg base)/3 mL nebulization soln 3 ml inhalation Q4H PRN PRN SOB &/OR WHEEZING #180 mL 06/07/22 nicotine (polacrilex) 4 mg buccal mini lozenge 4 mg buccal Q6H PRN nicotine cravings #81 ea 10/10/22 aripiprazole 5 mg tablet (Abilify) 15 mg PO DAILY 11/27/22 hydroxyzine HCl 10 mg tablet 100 mg PO QHS anxiety 11/27/22 budesonide-formoterol HFA 160 mcg-4.5 mcg/actuation aerosol inhaler (Symbicort) 2 puff inhalation BID wheezing #10.2 grams 12/18/22 ondansetron 4 mg disintegrating tablet 4 mg PO Q8H PRN nausea and vomiting #60 tabs 04/30/23 albuterol sulfate 90 mcg/actuation aerosol inhaler 2 puff inhalation Q4H PRN shortness of breath or wheezing #8.5 grams 05/08/23 mepolizumab 100 mg/mL subcutaneous auto-injector (Nucala) 100 mg subcut Q4W #1 mL 06/06/23 nitroglycerin 0.4 mg sublingual tablet 0.4 mg sublingual PRN PRN CHEST PAIN #25 tabs 07/09/23 furosemide 20 mg tablet See Rx Instructions .Route .COMPLEX #30 tabs 07/26/23 montelukast 10 mg tablet (Singulair) 10 mg PO QHS allergies #30 tabs 07/30/23 aspirin 81 mg tablet,delayed release See Rx Instructions .Route .COMPLEX #30 tabs 08/22/23 levothyroxine 50 mcg tablet See Rx Instructions .Route .COMPLEX #30 tabs 08/22/23 loratadine 10 mg tablet See Rx Instructions .Route .COMPLEX #30 tabs 08/22/23 losartan 100 mg tablet See Rx Instructions .Route .COMPLEX #30 tabs 08/22/23 spironolactone 25 mg tablet See Rx Instructions .Route .COMPLEX #30 tabs 08/22/23 guaifenesin 1,200 mg tablet, extended release 12 hr 600 mg (1/2 x 1,200 mg) PO BID allergies #60 tabs 09/20/23 tiotropium bromide 1.25 mcg/actuation mist for inhalation (Spiriva Respimat) See Rx Instructions .Route .COMPLEX #4 grams 09/21/23 lidocaine 5 % topical patch 1 patch topical DAILY PRN Pain #30 ea 09/25/23 melatonin 10 mg capsule 10 mg PO QHS insomnia #90 caps 10/18/23 fluticasone propionate 50 mcg/actuation nasal spray,suspension See Rx Instructions .Route .COMPLEX #16 grams 11/05/23 polyethylene glycol 3350 17 gram/dose oral powder (Miralax) 17 g PO BID PRN Constipation #238 grams 11/12/23 benztropine 0.5 mg tablet 0.5 mg PO TID 11/14/23 carboxymethylcellulose sodium 0.5 % eye drops 1 drp ophthalmic (eye) BID 11/14/23 carvedilol 3.125 mg tablet See Rx Instructions .Route .COMPLEX #60 tabs 11/14/23 nifedipine 60 mg tablet,extended release 30 mg PO Q12H 11/14/23 trazodone 100 mg tablet 100 mg PO QHS 11/14/23 esomeprazole magnesium 40 mg capsule,delayed release 40 mg PO DAILY #90 caps 11/15/23 hydralazine 100 mg tablet 100 mg PO TID blood pressure #90 tabs 11/15/23 oxycodone-acetaminophen 5 mg-325 mg tablet (Percocet) 1 tab PO TID PRN pain 3 days #10 tabs 11/16/23 Hospital Course Operations None Procedures None Summary of Care Provided Minutes Spent on Discharge: 38 Hospital Course: Per HPI: NIGHAT TIMMONS, is a 58 F who presented to the emergency department at [facility] on 11/14/2023 from pain management office for a right-sided lumbar radiculopathy. She was hoping she could get an MRI performed to rule out any problems. She been having low back pain since January and in the last 2 to 3 weeks she developed some tingling and numbness down her right leg. Her pain and slowly worsened and the tingling and numbness is persistent. She is complaining of weakness in that leg however denies any saddle anesthesia or bowel/bladder incontinence. She has had no falls, no fevers no chills and no urinary retention. She has had no previous intervention on her back. A lumbar spine MRI was performed in the emergency department and she was found to have degenerative changes at L4 and L5 with facet arthropathy and a complex cyst on the right encroaching upon the lateral recess with narrowing of the neuroforamina as well as some disc bulging at L4 and L5 the complex cyst is 1.6 x 1.3 cm. She also has some moderate canal stenosis. Given the fact that she is having increased pain, decreased strength in the leg and tingling and numbness request for admission was made for evaluation by orthopedic spine surgery as well as pain management and physical and Occupational Therapy. Labs are pending at the time of admission. Hospital Course: 1. Intractable back pain with lumbar radiculopathy secondary to a complex cyst at L4-L5?58-year-old female presents to the hospital with difficulty ambulating and significant back pain since January. She said that it got worse over the last couple of weeks and now had some numbness and tingling traveling down the back of her right leg with weakness in her right foot. Orthospine was consulted and felt that she potentially would benefit from surgery but as an outpatient elective basis. She was evaluated by physical therapy and Occupational Therapy who both recommended SNF placement however she refused to go to the shelter therefore she will be discharged home. She does see pain management as an outpatient but does not appear that she receives any narcotics therefore we will go ahead and prescribe 3 days worth of narcotics to get her through the weekend pending outpatient follow-up with her PCP and pain management physician. I also recommend that she follow-up with orthospine as an outpatient to pursue the surgical avenue. I discussed with her the plan for discharge today she expressed understanding of the risk benefits of going home and would like to go today. 2. Hypertension, hyperlipidemia, aortic stenosis, asthma?COPD overlap syndrome, DAPHNE, schizophrenia, hypothyroidism, GERD are all chronic medical conditions which complicate her care. Her home medications were continued where appropriate Physical Exam Narrative General: Alert, Oriented x3, Cooperative, No apparent distress HEENT: Atraumatic, PERRLA, EOMI, Normocephalic Oral: Moist Mucosa Neck: Supple, No JVD Lungs: Diminished, Normal air movement, No rhonchi, No wheeze, No rales Cardiovascular: Regular rate, Regular Rhythm, Normal S1, Normal S2, No murmurs Abdomen: Soft, Non Tender, Non-Distended, No Hepato-splenomegaly Extremities: No edema, Capillary Refill Less than 3 Seconds Skin: No rashes, No breakdown Musculoskeletal: No Tenderness to Palpation of Joints or Extremities Neurological: Right lower extremity weakness with weakness dorsiflexion and extension of her right foot with decreased sensation Psych/Mental Status: Normal Affect, Appropriate Weight / BMI Weight Weight: 263 lb 14.293 oz Body Mass Index (BMI) 45.3 ABG / Lab / Microbiology Data 11/16/23 03:50 11/16/23 03:50 Laboratory: Laboratory Results - last 24 hr 11/16/23 03:50: WBC 5.7, RBC 4.54, Hgb 13.5, Hct 41.0, MCV 90.3, MCH 29.7, MCHC 32.9, RDW Std Deviation 43.6, RDW Coeff of Yonathan 13.2, Plt Count 235, MPV 9.3, Immature Gran % (Auto) 0.400, Neut % (Auto) 65.2, Lymph % (Auto) 23.6, [place] % (Auto) 9.2, Eos % (Auto) 1.1, Baso % (Auto) 0.5, Absolute Neuts (auto) 3.7, Abs olute Lymphs (auto) 1.34, Nucleated RBC % 0, Sodium 128 L, Potassium 3.6, Chl oride 98, Carbon Dioxide 26.0, Anion Gap 4 L, BUN 18, Creatinine 1.25 H, Estim Creat Clear Calc 61.74, Est GFR (MDRD) Af Amer 56 L, Est GFR (MDRD) Non-Af 47 L, BUN/Creatinine Ratio 14.4, Glucose 116 H, Calcium 8.8 11/16/23 11:05: Urine Color Yellow, Urine Clarity Sl. Cloudy, Urine pH 6.0, Ur Specific [place] 1.010, Urine Protein Negative, Urine Glucose (UA) Normal, Urine Ketones Negative, Urine Occult Blood Negative, Urine Nitrite Positive H, Urine Bilirubin Negative, Urine Urobilinogen Normal, Ur Leukocyte Esterase Negative, Urine RBC 0 SEEN, Urine WBC 0 SEEN, Ur Squamous Epith Cells 0-5 SEEN, Urine Bacteria 2+, Urine Mucus 0 SEEN D/C Instructions Discharge Diet: Low fat / Low cholesterol and 1600 Calorie Control Diet Call your doctor if you observe: Fever of 101 or Higher, Shortness of breath, Dizziness, Fainting spells, Swelling in the ankles, Chest pain and Increased palpitations (irregular heartbeat) Meaningful Use Info Meaningful Use Diagnoses (Choose all that apply): None applicable Discharge Plan Admission Admit Date/Time: 11/14/23 23:00 Attending Provider: Kevin Campo Primary Care Provider: Elizabeth Santamaria Consulting Providers: Afshan Salamanca; Brad Hwang Instructions Additional Instructions / Restrictions: The recommendation was for shelter placement given your difficulty with ambulating however you declined therefore I recommend that you follow-up with your PCP next week for outpatient monitoring I also recommend continued mobilization at home and follow-up with the orthospine surgeon for elective repair as an outpatient. Also I would recommend continued follow-up with pain management in the meantime pending evaluation and possible surgical intervention in the future. Low Discharge Orders/Prescriptions Prescriptions: New oxycodone-acetaminophen [Percocet] 5-325 mg tablet 1 tab PO TID PRN (Reason: pain) 3 Days Qty: 10 0RF Continued ipratropium-albuterol 0.5 mg-3 mg(2.5 mg base)/3 mL solution for nebulization 3 ml inhalation Q4H PRN PRN (Reason: SOB &/OR WHEEZING) Qty: 180 6RF prochlorperazine maleate [Compazine] 5 mg tablet 5 mg PO BID PRN (Reason: nausea and vomiting) Qty: 20 0RF hydroxyzine HCl 10 mg tablet 100 mg PO QHS aripiprazole [Abilify] 5 mg tablet 15 mg PO DAILY miconazole nitrate [Desenex] 2 % powder 1 applic TOPICAL BID carboxymethylcellulose sodium 0.5 % drops 1 drp ophthalmic (eye) BID nifedipine 60 mg tablet extended release 30 mg PO Q12H trazodone 100 mg tablet 100 mg PO QHS benztropine 0.5 mg tablet 0.5 mg PO TID nicotine (polacrilex) 4 mg mini lozenge 4 mg buccal Q6H PRN (Reason: nicotine cravings) Qty: 81 1RF budesonide-formoterol [Symbicort] 160-4.5 mcg/actuation HFA aerosol inhaler 2 puff INHALATION BID Qty: 10.2 11RF ondansetron 4 mg tablet,disintegrating 4 mg PO Q8H PRN (Reason: nausea and vomiting) Qty: 60 1RF albuterol sulfate 90 mcg/actuation HFA aerosol inhaler 2 puff inhalation Q4H PRN (Reason: shortness of breath or wheezing) Qty: 8.5 6RF Rx Instructions: administer with spacer Nucala 100 mg/mL auto-injector 100 mg subcut Q4W Qty: 1 11RF nitroglycerin 0.4 mg tablet, sublingual 0.4 mg SUBLINGUAL PRN PRN (Reason: CHEST PAIN) Qty: 25 3RF furosemide 20 mg tablet See Rx Instructions .ROUTE .COMPLEX Qty: 30 11RF Dose Instruction: TAKE 1 TABLET BY MOUTH DAILY Rx Instructions: TAKE 1 TABLET BY MOUTH DAILY montelukast [Singulair] 10 mg tablet 10 mg PO QHS Qty: 30 5RF losartan 100 mg tablet See Rx Instructions .ROUTE .COMPLEX Qty: 30 5RF Dose Instruction: TAKE 1 TABLET BY MOUTH DAILY FOR BLOOD PRESSURE Rx Instructions: TAKE 1 TABLET BY MOUTH DAILY FOR BLOOD PRESSURE spironolactone 25 mg tablet See Rx Instructions .ROUTE .COMPLEX Qty: 30 5RF Dose Instruction: TAKE 1 TABLET BY MOUTH AT BEDTIME FOR BLOOD PRESSURE Rx Instructions: TAKE 1 TABLET BY MOUTH AT BEDTIME FOR BLOOD PRESSURE aspirin 81 mg tablet,delayed release (DR/EC) See Rx Instructions .ROUTE .COMPLEX Qty: 30 5RF Dose Instruction: TAKE 1 TABLET BY MOUTH EVERY MORNING AROUND 8AM FOR HEART HEALTH Rx Instructions: TAKE 1 TABLET BY MOUTH EVERY MORNING AROUND 8AM FOR HEART HEALTH loratadine 10 mg tablet See Rx Instructions .ROUTE .COMPLEX Qty: 30 5RF Dose Instruction: TAKE 1 TABLET BY MOUTH DAILY FOR ALLERGIES Rx Instructions: TAKE 1 TABLET BY MOUTH DAILY FOR ALLERGIES levothyroxine 50 mcg tablet See Rx Instructions .ROUTE .COMPLEX Qty: 30 5RF Dose Instruction: TAKE 1 TABLET BY MOUTH DAILY FOR THYROID Rx Instructions: TAKE 1 TABLET BY MOUTH DAILY FOR THYROID guaifenesin 1,200 mg tablet extended release 12hr 600 mg PO BID Qty: 60 2RF Spiriva Respimat 1.25 mcg/actuation mist See Rx Instructions .ROUTE .COMPLEX Qty: 4 2RF Dose Instruction: INHALE 2 PUFFS BY MOUTH DAILY Rx Instructions: INHALE 2 PUFFS BY MOUTH DAILY lidocaine 5 % adhesive patch,medicated 1 patch topical DAILY PRN (Reason: Pain) Qty: 30 3RF Rx Instructions: leave on most painful area for up to 12 hrs melatonin 10 mg capsule 10 mg PO QHS Qty: 90 0RF fluticasone propionate 50 mcg/actuation spray,suspension See Rx Instructions .ROUTE .COMPLEX Qty: 16 1RF Dose Instruction: USE 1 SPRAY IN EACH NOSTRIL TWICE A DAY FOR ALLERGIES Rx Instructions: USE 1 SPRAY IN EACH NOSTRIL TWICE A DAY FOR ALLERGIES polyethylene glycol 3350 [Miralax] 17 gram/dose powder 17 g PO BID PRN (Reason: Constipation) Qty: 238 3RF carvedilol 3.125 mg tablet See Rx Instructions .ROUTE .COMPLEX Qty: 60 3RF Dose Instruction: TAKE 1 TABLET BY MOUTH TWICE A DAY WITH A MEAL/FOOD Rx Instructions: TAKE 1 TABLET BY MOUTH TWICE A DAY WITH A MEAL/FOOD esomeprazole magnesium 40 mg capsule,delayed release(DR/EC) 40 mg PO DAILY Qty: 90 0RF hydralazine 100 mg tablet 100 mg PO TID Qty: 90 0RF Referrals / Follow Up: Elizabeth Santamaria MD [Primary Care Provider] - Within 1 Week Brad Hwang DO [Med Staff - Active Staff] - Within 1 Month Disposition Disposition (needs filled in before D/C Order can be placed): Home, Self Care Charges/Coding Visit Charges Inpatient E&M: 23728 Disch Hosp >30min
--- NOTE | 2023-11-16 14:48 | CASEMGMT ---
Esmer from [facility] state they can accept the pt and the SOC is Sunday. Pt is agreeable to this. Pt denies further needs at this time.
--- NOTE | 2023-11-16 15:03 | CASEMGMT ---
Social Work Pt has decided she wants to go home rather than to SNF. SW spoke w/pt, inquire how she will get into her home as she had told RN it's 200 feet and she can only walk 30. Pt states that she will have her friend bring her rollator out and she will take breaks, sitting on rollator, until she can get into her home. She states the plan is for her to get a shot in her back and she doesn't want to do therapy daily at a SNF at this time, feels she will manage at home. She is still agreeable to home health however. Pt's shoe caser from [facility], Sobeida Young([phone]), called SW back. W/pt's permission SW updated her on pt's plan, to go home w/home w/home health. SW explained SW also made referrals for [facility] and pt had SW put her as a contact, and made referral for [facility] as well. No further social work needs, pt home today w/[facility]. CORA Blunt
== END 2023-11-16 15:30 | disposition home or self-care (01) | DRG 351 ==
LOC: ED 21:08 → ICU 23:23
PROVIDERS: Admitting Provider Internal Medicine; Emergency Provider Emergency Medicine; PCP Internal Medicine; Visit Provider Family Medicine
DX: M71.38 Other bursal cyst, other site (principal); J82.83 Eosinophilic asthma; F31.9 Bipolar disorder, unspecified; E66.01 Morbid (severe) obesity due to excess calories; Z68.42 Body mass index [BMI] 45.0-49.9, adult; F20.9 Schizophrenia, unspecified; E03.9 Hypothyroidism, unspecified; N18.9 Chronic kidney disease, unspecified; I35.2 Nonrheumatic aortic (valve) stenosis with insufficiency; I12.9 Hypertensive chronic kidney disease with stage 1 through stage 4 chronic kidney disease, or unspecified chronic kidney disease; M48.061 Spinal stenosis, lumbar region without neurogenic claudication; M47.26 Other spondylosis with radiculopathy, lumbar region; I16.9 Hypertensive crisis, unspecified; F17.210 Nicotine dependence, cigarettes, uncomplicated; K21.9 Gastro-esophageal reflux disease without esophagitis; G47.33 Obstructive sleep apnea (adult) (pediatric); R26.2 Difficulty in walking, not elsewhere classified; E78.5 Hyperlipidemia, unspecified; Z79.82 Long term (current) use of aspirin; Z82.3 Family history of stroke; Z79.891 Long term (current) use of opiate analgesic; Z79.51 Long term (current) use of inhaled steroids; Z80.0 Family history of malignant neoplasm of digestive organs; Z86.16 Personal history of COVID-19
CPT/HCPCS: 72148; 80048; 80053; 81001; 83735; 84100; 85025; 85610; 85730; 87077; 87086; 87088; 87186; 94640; 94668; 97162; 97166; 97530; 97535; 99284; A4216; J2405

== ENCOUNTER 2023-12-25 08:47 | Emergency (ER) | payer MEDICAID, SELFPAY ==
[2023-12-25 08:48] VITALS: BP 152/90; PULSE 57; RESP 16; TEMP 36.2; O2SAT 100; BMI 47.9
--- NOTE | 2023-12-25 09:11 | EX.ED.DYSGE1 ---
HPI History of Present Illness Chief Complaint: Hypotension Informant: patient Narrative Narrative: Patient sent in from GI office from a routine visit for evaluation. Reported hypotension. Patient denies fevers. She is 8 days postop L4-L5 laminectomy at [facility]. She was discharged to the facility for rehab yesterday. Reported was on oxycodone 20 mg every 6 hours for breakthrough fentanyl. She was not discharged with any medicines back to facility states today saw a letter for the reason why and stated another doctor was going to manage it. She has not had pain medicines for 24 hours. Reports postop pain. Denies radicular pain down her legs. Also states rehab has not been started even at the hospital she is not allowed to walk at this time. She has had a follow-up GI visit for history of esophagitis and previous abdominal pain. She has not had a bowel movement for a week. She is passing gas. She is on stool softeners. Denies nausea or vomiting. [facility] Medical History (Updated 12/25/23 @ 11:[address] Justin Shahid DO) Abdominal pain Allergic rhinitis Aortic valve insufficiency Arthralgia of right hip Arthritis Asthma Back pain Bilateral flank pain Bilateral foot pain Bipolar 1 disorder Bipolar disorder Blackout Bladder disease Cancer Cardiology follow-up encounter Chest pain Chronic cough CKD (chronic kidney disease) Colitis Conversion disorder with abnormal movement Convulsion, non-epileptic COPD, mild COVID-19 virus infection CPAP (continuous positive airway pressure) dependence Cyclic vomiting syndrome Cyst Debility Degenerative tear of meniscus of left knee Depression Diarrhea Dietary restriction Difficulty chewing Disease of gingiva due to infection Dysuria Easy bruising Enchondroma of left humerus Enlarged aorta Excessive bleeding Family history of colon cancer Gastric reflux Gastritis Heart failure High cholesterol Hip dislocation, right History of abnormal cervical Pap smear History of atrial fibrillation History of CHF (congestive heart failure) History of echocardiogram History of edema History of hiatal hernia History of Holter monitoring History of IBS History of renal disease History of skin cancer History of steroid therapy History of stress test History of ulceration HTN (hypertension) Hx of tilt table evaluation Hypertensive crisis without congestive heart failure Hypokalemia Hyponatremia Hypothyroidism Impingement of left shoulder Injury of head and neck Intertriginous dermatitis associated with moisture Kidney disease Left arm swelling Leg cramps Loss of hearing Marijuana use Migraines Morbid obesity Myositis Non-convulsive status epilepticus Non-rheumatic mitral regurgitation Nonrheumatic aortic (valve) insufficiency Open wound Oral candidiasis Orthostatic hypotension DAPHNE (obstructive sleep apnea) Osteoarthritis Osteoarthritis of left knee Osteoarthritis of right hip PAF (paroxysmal atrial fibrillation) Pain of left calf Peripheral artery disease Post-menopausal Psychosis Pulmonary embolism Restless legs Sarcoidosis Schizo NEC, chrn/exacerb Schizophrenia Seizures Shortness of breath on exertion Sleep apnea Smoker Stroke Stroke/cerebrovascular accident Syncope Thyroid disease TIA (transient ischemic attack) Venous insufficiency of both lower extremities Walker as ambulation aid Wears dentures Wears glasses Home Medications miconazole nitrate 2 % topical powder (Desenex) 1 applic topical BID rash 02/27/22 [History Last Taken 06/25/23] prochlorperazine maleate 5 mg tablet (Compazine) 5 mg PO BID PRN nausea and vomiting #20 tabs 03/23/22 [Rx Last Taken Unknown] ipratropium 0.5 mg-albuterol 3 mg (2.5 mg base)/3 mL nebulization soln 3 ml inhalation Q4H PRN PRN SOB &/OR WHEEZING #180 mL 06/07/22 [Rx Last Taken Unknown] nicotine (polacrilex) 4 mg buccal mini lozenge 4 mg buccal Q6H PRN nicotine cravings #81 ea 10/10/22 [Rx Last Taken 06/25/23] aripiprazole 5 mg tablet (Abilify) 15 mg PO DAILY 11/27/22 [History Last Taken 06/25/23] hydroxyzine HCl 10 mg tablet 100 mg PO QHS anxiety 11/27/22 [History Last Taken 06/25/23] budesonide-formoterol HFA 160 mcg-4.5 mcg/actuation aerosol inhaler (Symbicort) 2 puff inhalation BID wheezing #10.2 grams 12/18/22 [Rx Last Taken 06/26/23] ondansetron 4 mg disintegrating tablet 4 mg PO Q8H PRN nausea and vomiting #60 tabs 04/30/23 [Rx Last Taken Unknown] albuterol sulfate 90 mcg/actuation aerosol inhaler 2 puff inhalation Q4H PRN shortness of breath or wheezing #8.5 grams 05/08/23 [Rx Last Taken Unknown] mepolizumab 100 mg/mL subcutaneous auto-injector (Nucala) 100 mg subcut Q4W #1 mL 08/23/23 [Rx Last Taken Unknown] nitroglycerin 0.4 mg sublingual tablet 0.4 mg sublingual PRN PRN CHEST PAIN #25 tabs 07/09/23 [Rx Last Taken Unknown] furosemide 20 mg tablet See Rx Instructions .Route .COMPLEX #30 tabs 07/26/23 [Rx Last Taken Unknown] montelukast 10 mg tablet (Singulair) 10 mg PO QHS allergies #30 tabs 07/30/23 [Rx Last Taken Unknown] aspirin 81 mg tablet,delayed release See Rx Instructions .Route .COMPLEX #30 tabs 08/22/23 [Rx Last Taken Unknown] levothyroxine 50 mcg tablet See Rx Instructions .Route .COMPLEX #30 tabs 08/22/23 [Rx Last Taken Unknown] loratadine 10 mg tablet See Rx Instructions .Route .COMPLEX #30 tabs 08/22/23 [Rx Last Taken Unknown] losartan 100 mg tablet See Rx Instructions .Route .COMPLEX #30 tabs 08/22/23 [Rx Last Taken Unknown] spironolactone 25 mg tablet See Rx Instructions .Route .COMPLEX #30 tabs 08/22/23 [Rx Last Taken Unknown] melatonin 10 mg capsule 10 mg PO QHS insomnia #90 caps 10/18/23 [Rx Last Taken Unknown] polyethylene glycol 3350 17 gram/dose oral powder (Miralax) 17 g PO BID PRN Constipation #238 grams 11/12/23 [Rx Last Taken Unknown] benztropine 0.5 mg tablet 0.5 mg PO TID 11/14/23 [History Last Taken Unknown] carboxymethylcellulose sodium 0.5 % eye drops 1 drp ophthalmic (eye) BID 11/14/23 [History Last Taken Unknown] carvedilol 3.125 mg tablet See Rx Instructions .Route .COMPLEX #60 tabs 11/14/23 [Rx Last Taken Unknown] nifedipine 60 mg tablet,extended release 30 mg PO Q12H 11/14/23 [History Last Taken Unknown] trazodone 100 mg tablet 100 mg PO QHS 11/14/23 [History Last Taken Unknown] esomeprazole magnesium 40 mg capsule,delayed release 40 mg PO DAILY #90 caps 11/15/23 [Rx Last Taken Unknown] oxycodone-acetaminophen 5 mg-325 mg tablet (Percocet) 1 tab PO TID PRN pain 3 days #10 tabs 11/16/23 [Rx Last Taken Unknown] miscellaneous medical supply #1 ea 11/26/23 [Rx Last Taken Unknown] miscellaneous medical supply #1 ea 11/26/23 [Rx Last Taken Unknown] miscellaneous medical supply 1 ea miscellaneous DAILY #1 ea 11/26/23 [Rx Last Taken Unknown] guaifenesin 1,200 mg tablet, extended release 12 hr 600 mg (1/2 x 1,200 mg) PO BID allergies #60 tabs 12/12/23 [Rx Last Taken Unknown] hydralazine 100 mg tablet 100 mg PO TID blood pressure #90 tabs 12/12/23 [Rx Last Taken Unknown] fluticasone propionate 50 mcg/actuation nasal spray,suspension See Rx Instructions .Route .COMPLEX #16 grams 12/18/23 [Rx Last Taken Unknown] lidocaine 5 % topical patch See Rx Instructions .Route .COMPLEX #30 ea 12/18/23 [Rx Last Taken Unknown] tiotropium bromide 1.25 mcg/actuation mist for inhalation (Spiriva Respimat) See Rx Instructions .Route .COMPLEX #4 grams 12/18/23 [Rx Last Taken Unknown] oxycodone 5 mg tablet 5 - 10 mg (1 - 2 x 5 mg) PO Q6H PRN pain 3 days #12 tabs 12/25/23 [Rx Last Taken Unknown] Allergy/AdvReac Type Severity Reaction Status Date / Time adhesive tape Allergy Rash Verified 12/25/23 08:51 atropine sulfate Allergy Hives Verified 12/25/23 08:51 [From ] codeine phosphate Allergy breathing Verified 12/25/23 08:51 [From Tylenol-Codeine #3] problems divalproex sodium Allergy Unknown Verified 12/25/23 08:51 [From Depakote] guaifenesin Allergy Itching Verified 12/25/23 08:51 hydrocodone Allergy Itching Verified 12/25/23 08:51 hydromorphone HCl Allergy facial Verified 12/25/23 08:51 [From Dilaudid] blisters,itching hyoscyamine sulfate Allergy Hives Verified 12/25/23 08:51 [From ] Iodinated Contrast Media Allergy breathing Verified 12/25/23 08:51 [Iodinated Contrast Media - problems IV Dye] and my bp went up latex Allergy Rash Verified 12/25/23 08:51 pantoprazole sodium Allergy Rash Verified 12/25/23 08:51 [From Protonix] phenobarbital [From ] Allergy Hives Verified 12/25/23 08:51 promethazine HCl Allergy Anaphylaxis Verified 12/25/23 08:51 [From Phenergan] ramipril Allergy Unknown Verified 12/25/23 08:51 scopolamine hydrobromide Allergy Hives Verified 12/25/23 08:51 [From ] tramadol Allergy Itching Verified 12/25/23 08:51 ziprasidone mesylate Allergy Unknown Verified 12/25/23 08:51 [From Geodon] amlodipine AdvReac Vomiting Verified 12/25/23 08:51 levofloxacin [From Levaquin] AdvReac Itching Verified 12/25/23 08:51 metoclopramide [From Reglan] AdvReac Other Verified 12/25/23 08:51 Sulfa (Sulfonamide AdvReac Vomiting Verified 12/25/23 08:51 Antibiotics) ziprasidone HCl [From Geodon] AdvReac tremors Verified 12/25/23 08:51 Family History Sister Myocardial infarction Colon cancer Mother Hypertension Arthritis Brain aneurysm Heart disease High cholesterol Sister Colon cancer Heart disease High cholesterol Hypertension Arthritis Grandmother Arthritis Diabetes CVA (cerebral vascular accident) Father Heart disease High cholesterol Hypertension Surgical History (Updated 12/25/23 @ 09:27 by Sobeida Moyer) bladder sling Cataract extraction status History of esophagogastroduodenoscopy (EGD) History of laparoscopic cholecystectomy History of uterine suspension procedure Hx of colonoscopy left foot Previous back surgery S/P carpal tunnel release Social History household members: none number of children: 4 current occupational status: unemployed history of recent travel: No Smoking Status: Former smoker Tobacco: How many years used: 26 Electronic Cigarette Use: not used quit status: considering quitting alcohol intake: never substance use type: does not use caffeine: Yes Type: coffee what type of physical activity do you participate in: none seatbelt use: never do you feel safe at home: Yes additional social history: single ROS ROS ED Constitutional Constitutional ED: Denies chills, fever(s) or sweats Eyes Eyes: Denies change in vision ENT ENT ED: Denies dysphagia or sore throat Cardiovascular Cardiovascular: Denies chest pain, leg edema, palpitations or racing heartbeat Respiratory/Chest Respiratory/Chest: Denies cough, dyspnea or dyspnea on exertion Gastrointestinal Gastrointestinal: Reports constipation; Denies abdominal pain, diarrhea, nausea or vomiting Genitourinary Genitourinary ED: Denies dysuria, hematuria or urinary frequency Musculoskeletal Musculoskeletal: Reports back pain; Denies extremity pain or neck pain Integumentary Denies rash or wounds Neurologic Neurologic: Denies headache(s), paresthesias or weakness EXAM Physical Exam Const Vital Signs: 12/25/23 08:48 12/25/23 09:26 12/25/23 10:47 Temperature 97.1 F L Temperature Source Temporal Pulse Rate 57 L 86 Respiratory Rate 16 17 Respiratory Effort Normal Respiratory Pattern Normal Blood Pressure 152/90 H Blood Pressure Mean 110 Pulse Ox 100 92 Oxygen Delivery Method Room Air Room Air 12/25/23 11:51 Temperature 98.2 F Temperature Source Pulse Rate 89 Respiratory Rate 16 Respiratory Effort Respiratory Pattern Blood Pressure 137/57 H Blood Pressure Mean 83 Pulse Ox 98 Oxygen Delivery Method Positive well nourished and well developed General Appearance ED: well developed and NAD HEENT Reports moist mucous membranes normocephalic and atraumatic Eyes PERRL, EOMs intact bilaterally and conjunctivae normal General Eye ED: Yes normal appearance of both eyes Neck no lymphadenopathy and supple General: Negative for tenderness Chest Wall Chest: Negative for tenderness Resp normal respiratory effort and normal air movement Effort and Inspection: symmetric chest movement; Negative for respiratory distress Cardio regular rate, regular rhythm and no murmurs Peripheral Pulses: pulses 2+ throughout GI normal to inspection, nondistended, normoactive bowel sounds and non-tender Palpation: Negative for guarding or rebound tenderness present Back/Spine no CVA tenderness Back/Spine Narrative: Lower lumbar midline incision with sutures clean, dry intact. There is surrounding ecchymosis there is no drainage. No fluctuance. Extremity normal to inspection General Extremety ED: Negative for edema or tenderness General Extremity: Negative for edema Neuro oriented x3 and no sensory deficits noted Sensorium / Orientation: awake and alert Skin no rashes or lesions noted and no wounds MDM MDM MDM Narrative Medical decision making narrative: Interventions / MDM: Differential diagnosis: Postop back pain Diagnosis considered but do not suspect: No clinical infection. No clinical sepsis. My EKG interpretation: N/A Imaging independently reviewed and interpreted by myself: N/A External documents reviewed: Reviewed GI office note from today, blood pressure systolic 129. Test considered but not ordered:N/A ED course: Blood pressure in the ED 150 systolic. She reported she was sent here for lab work. Will start with basic labs she is not hypotensive. Will treat with IV fentanyl as she has been more than 24 hours for pain. Will attempt to obtain records to review why she is not getting pain medicines on discharge to [facility] facility. Discussed with GI doctor for any other issues of concern. I did speak with Dr. Irving, DEXTER, states when he saw her in the room she was in the 80s systolic patient is not lightheaded. Reported systolic 150s here. Discussed her wound looks clean. We did reach out to the facility apparently surgeon had a prescription for oxycodone 5 mg 1-2 tabs every 6 hours however was not signed, they are trying to reach him to get a prescription. Labs returned stable. Sodium 132. Asymptomatic. Pain was more controlled. Short prescription of 12 tabs oxycodone will be written and signed to take to her facility use. They will continue outpatient care for the patient. Patient no abdominal pain. She is on stool softeners. This can be continued at facility to help with bowel movements. All questions were answered. Re-evaluation: stable Disposition discussed with patient/family/significant other: Patient Case discussed with consulting clinician: Gastroenterology This note was generated with [employer] dictation software. It may contain incorrect words, spelling, and punctuation that were not noted in checking the note before signing. Lab Data Attestation: I reviewed the patient's lab results. Labs: Laboratory Results - last 24 hr 12/25/23 09:16 WBC 9.4 RBC 3.91 L Hgb 11.5 L Hct 34.4 L MCV 88.0 MCH 29.4 MCHC 33.4 RDW Std Deviation 43.5 RDW Coeff of Yonathan 13.5 Plt Count 265 MPV 9.7 Immature Gran % (Auto) 1.000 H Neut % (Auto) 79.8 H Lymph % (Auto) 10.5 L [place] % (Auto) 8.0 Eos % (Auto) 0.4 Baso % (Auto) 0.3 Absolute Neuts (auto) 7.5 Absolute Lymphs (auto) 0.99 Nucleated RBC % 0 Sodium 132 L Potassium 4.2 Chloride 99 Carbon Dioxide 29.0 Anion Gap 4 L BUN 11 Creatinine 0.93 Estim Creat Clear Calc 82.88 Est GFR (MDRD) Af Amer 79 Est GFR (MDRD) Non-Af 65 BUN/Creatinine Ratio 11.8 Glucose 101 Calcium 8.8 Discharge Plan Triage Chief Complaint: Hypotension ED Provider: Justin Shahid Dx/Rx/DC Orders Clinical Impression: Post-operative pain, Hyponatremia, Constipation Instructions: ED Post Op Wound Check, Pain Prescriptions: New oxycodone 5 mg tablet 5 - 10 mg PO Q6H PRN (Reason: pain) 3 Days Qty: 12 0RF No Action ipratropium-albuterol 0.5 mg-3 mg(2.5 mg base)/3 mL solution for nebulization 3 ml inhalation Q4H PRN PRN (Reason: SOB &/OR WHEEZING) Qty: 180 6RF prochlorperazine maleate [Compazine] 5 mg tablet 5 mg PO BID PRN (Reason: nausea and vomiting) Qty: 20 0RF hydroxyzine HCl 10 mg tablet 100 mg PO QHS aripiprazole [Abilify] 5 mg tablet 15 mg PO DAILY miconazole nitrate [Desenex] 2 % powder 1 applic TOPICAL BID carboxymethylcellulose sodium 0.5 % drops 1 drp ophthalmic (eye) BID nifedipine 60 mg tablet extended release 30 mg PO Q12H trazodone 100 mg tablet 100 mg PO QHS benztropine 0.5 mg tablet 0.5 mg PO TID oxycodone-acetaminophen [Percocet] 5-325 mg tablet 1 tab PO TID PRN (Reason: pain) 3 Days Qty: 10 0RF nicotine (polacrilex) 4 mg mini lozenge 4 mg buccal Q6H PRN (Reason: nicotine cravings) Qty: 81 1RF budesonide-formoterol [Symbicort] 160-4.5 mcg/actuation HFA aerosol inhaler 2 puff INHALATION BID Qty: 10.2 11RF ondansetron 4 mg tablet,disintegrating 4 mg PO Q8H PRN (Reason: nausea and vomiting) Qty: 60 1RF albuterol sulfate 90 mcg/actuation HFA aerosol inhaler 2 puff inhalation Q4H PRN (Reason: shortness of breath or wheezing) Qty: 8.5 6RF Rx Instructions: administer with spacer Nucala 100 mg/mL auto-injector 100 mg subcut Q4W Qty: 1 11RF nitroglycerin 0.4 mg tablet, sublingual 0.4 mg SUBLINGUAL PRN PRN (Reason: CHEST PAIN) Qty: 25 3RF furosemide 20 mg tablet See Rx Instructions .ROUTE .COMPLEX Qty: 30 11RF Dose Instruction: TAKE 1 TABLET BY MOUTH DAILY Rx Instructions: TAKE 1 TABLET BY MOUTH DAILY montelukast [Singulair] 10 mg tablet 10 mg PO QHS Qty: 30 5RF losartan 100 mg tablet See Rx Instructions .ROUTE .COMPLEX Qty: 30 5RF Dose Instruction: TAKE 1 TABLET BY MOUTH DAILY FOR BLOOD PRESSURE Rx Instructions: TAKE 1 TABLET BY MOUTH DAILY FOR BLOOD PRESSURE spironolactone 25 mg tablet See Rx Instructions .ROUTE .COMPLEX Qty: 30 5RF Dose Instruction: TAKE 1 TABLET BY MOUTH AT BEDTIME FOR BLOOD PRESSURE Rx Instructions: TAKE 1 TABLET BY MOUTH AT BEDTIME FOR BLOOD PRESSURE aspirin 81 mg tablet,delayed release (DR/EC) See Rx Instructions .ROUTE .COMPLEX Qty: 30 5RF Dose Instruction: TAKE 1 TABLET BY MOUTH EVERY MORNING AROUND 8AM FOR HEART HEALTH Rx Instructions: TAKE 1 TABLET BY MOUTH EVERY MORNING AROUND 8AM FOR HEART HEALTH loratadine 10 mg tablet See Rx Instructions .ROUTE .COMPLEX Qty: 30 5RF Dose Instruction: TAKE 1 TABLET BY MOUTH DAILY FOR ALLERGIES Rx Instructions: TAKE 1 TABLET BY MOUTH DAILY FOR ALLERGIES levothyroxine 50 mcg tablet See Rx Instructions .ROUTE .COMPLEX Qty: 30 5RF Dose Instruction: TAKE 1 TABLET BY MOUTH DAILY FOR THYROID Rx Instructions: TAKE 1 TABLET BY MOUTH DAILY FOR THYROID melatonin 10 mg capsule 10 mg PO QHS Qty: 90 0RF polyethylene glycol 3350 [Miralax] 17 gram/dose powder 17 g PO BID PRN (Reason: Constipation) Qty: 238 3RF carvedilol 3.125 mg tablet See Rx Instructions .ROUTE .COMPLEX Qty: 60 3RF Dose Instruction: TAKE 1 TABLET BY MOUTH TWICE A DAY WITH A MEAL/FOOD Rx Instructions: TAKE 1 TABLET BY MOUTH TWICE A DAY WITH A MEAL/FOOD esomeprazole magnesium 40 mg capsule,delayed release(DR/EC) 40 mg PO DAILY Qty: 90 0RF (DME) miscellaneous medical supply Misc See Rx Instructions .Route Qty: 1 0RF Rx Instructions: As directed (DME) miscellaneous medical supply Misc See Rx Instructions .Route Qty: 1 0RF Rx Instructions: As directed miscellaneous medical supply Kit 1 ea miscellaneous DAILY Qty: 1 0RF hydralazine 100 mg tablet 100 mg PO TID Qty: 90 2RF guaifenesin 1,200 mg tablet extended release 12hr 600 mg PO BID Qty: 60 2RF fluticasone propionate 50 mcg/actuation spray,suspension See Rx Instructions .ROUTE .COMPLEX Qty: 16 0RF Dose Instruction: USE 1 SPRAY IN EACH NOSTRIL TWICE A DAY FOR ALLERGIES Rx Instructions: USE 1 SPRAY IN EACH NOSTRIL TWICE A DAY FOR ALLERGIES Spiriva Respimat 1.25 mcg/actuation mist See Rx Instructions .ROUTE .COMPLEX Qty: 4 0RF Dose Instruction: INHALE 2 PUFFS BY MOUTH DAILY Rx Instructions: INHALE 2 PUFFS BY MOUTH DAILY lidocaine 5 % adhesive patch,medicated See Rx Instructions .ROUTE .COMPLEX Qty: 30 0RF Dose Instruction: APPLY ONE PATCH TO PAINFUL AREA FOR UP TO 12 HOURS, THEN REMOVE FOR 12 HOURS Rx Instructions: APPLY ONE PATCH TO PAINFUL AREA FOR UP TO 12 HOURS, THEN REMOVE FOR 12 HOURS Primary Care Provider: Elizabeth Santamaria Referrals: Elizabeth Santamaria MD [Primary Care Provider] - 3-5 Days Activity Restrictions/Additional Instructions: Nursing discussed with your facility. They are working on continue pain prescription with your surgeon to be signed. You are given 12 tabs of oxycodone prescription to use in the meantime. Labs stable sodium 132. Continue stool softeners at facility for bowel movements as pain medication can cause constipation. Disposition Disposition: Home, Self Care Discharge Date/Time: 12/25/23 11:52
[2023-12-25 09:25] LABS: Absolute Lymphocyte Count 0.99 X10^3/uL (0.83-4.51); Absolute Neutrophil Count 7.5 X10^3/uL (2.0-7.7); Basophil# 0.03 X10^3/uL; Basophil% 0.3 % (0-1); Eosinophil# 0.04 X10^3/uL; Eosinophils% 0.4 % (0-5); Hematocrit 34.4 % (37-47); Hemoglobin 11.5 g/dL (12.0-15.0); Lymphocyte # 0.99 X10^3/ul (0.83-4.51); Lymphocyte % 10.5 % (19-41); Mean Corp Hgb Conc 33.4 g/dL (32-36); Mean Corpuscular Hgb 29.4 pg (27.0-32.0); Mean Platelet Vol. 9.7 fl (6.2-12.0); Monocyte# 0.75 X10^3/uL; NRBC Flagged by Analyzer 0 % (0-5); Neutrophil # 7.49 X10^3/uL (2.7-7.7); Neutrophil % 79.8 % (47-70); Platelet Count 265 K/mm3 (150-450); RBC Distribution Width CV 13.5 % (11.6-14.6); RBC Distribution Width SD 43.5 fl (35.1-43.9); Red Blood Count 3.91 M/mm3 (4.2-5.4); White Blood Count 9.4 K/mm3 (4.4-11.0)
[2023-12-25 09:37] LABS: Anion Gap 4 (5-15); BUN 11 mg/dL (7-18); BUN/Creat Ratio 11.8 RATIO (10-20); Calcium,Total 8.8 mg/dL (8.5-10.1); Chloride 99 mmol/L (98-107); Creatinine, Serum 0.93 mg/dL (0.55-1.02); EST Glomerular Filtration Rate 65 mL/min (>60); Est Glom Filt Rate - Afr Amer 79 mL/min (>60); Estimated Creatinine Clearance 82.88 ml/min; Glucose 101 mg/dL (74-106); Potassium 4.2 mmol/L (3.5-5.1); Sodium Level 132 mmol/L (136-145)
[2023-12-25] MEDS: fentaNYL 100 MCG/2 ML Ampul 50 MCG IV (09:37)
[2023-12-25 10:47] VITALS: PULSE 86; RESP 17; O2SAT 92
[2023-12-25 11:51] VITALS: BP 137/57; PULSE 89; RESP 16; TEMP 36.8; O2SAT 98
== END 2023-12-25 11:52 | disposition home or self-care (01) ==
PROVIDERS: Emergency Provider Emergency Medicine; PCP Internal Medicine; Visit Provider Emergency Medicine
DX: I95.9 Hypotension, unspecified (principal); F20.9 Schizophrenia, unspecified; J44.9 Chronic obstructive pulmonary disease, unspecified; I13.0 Hypertensive heart and chronic kidney disease with heart failure and stage 1 through stage 4 chronic kidney disease, or unspecified chronic kidney disease; I50.9 Heart failure, unspecified; F31.9 Bipolar disorder, unspecified; I48.0 Paroxysmal atrial fibrillation; E87.1 Hypo-osmolality and hyponatremia; G89.18 Other acute postprocedural pain; K59.00 Constipation, unspecified; Z87.891 Personal history of nicotine dependence; G47.33 Obstructive sleep apnea (adult) (pediatric); Z99.89 Dependence on other enabling machines and devices; N18.9 Chronic kidney disease, unspecified; E78.00 Pure hypercholesterolemia, unspecified; Z85.828 Personal history of other malignant neoplasm of skin; Z86.73 Personal history of transient ischemic attack (TIA), and cerebral infarction without residual deficits; Z79.51 Long term (current) use of inhaled steroids; Z79.82 Long term (current) use of aspirin; E03.9 Hypothyroidism, unspecified; K21.9 Gastro-esophageal reflux disease without esophagitis; Z79.899 Other long term (current) drug therapy; Z90.49 Acquired absence of other specified parts of digestive tract; Z20.2 Contact with and (suspected) exposure to infections with a predominantly sexual mode of transmission
CPT/HCPCS: 36415; 80048; 82306; 82607; 83735; 84443; 85025; 96374; 99284; A4216

== ENCOUNTER → 2023-12-25 | Outpatient (REF) | payer MEDICAID, SELFPAY ==
[2023-12-25 09:16] LABS: Absolute Lymphocyte Count 1.14 X10^3/uL (0.83-4.51); Absolute Neutrophil Count 6.5 X10^3/uL (2.0-7.7); Basophil# 0.02 X10^3/uL; Basophil% 0.2 % (0-1); Eosinophil# 0.03 X10^3/uL; Eosinophils% 0.4 % (0-5); Hematocrit 33.7 % (37-47); Hemoglobin 11.3 g/dL (12.0-15.0); Lymphocyte # 1.14 X10^3/ul (0.83-4.51); Lymphocyte % 13.5 % (19-41); Mean Corp Hgb Conc 33.5 g/dL (32-36); Mean Corpuscular Hgb 29.7 pg (27.0-32.0); Mean Corpuscular Volume 88.7 fL (81-99); Mean Platelet Vol. 10.1 fl (6.2-12.0); Monocyte# 0.69 X10^3/uL; Monocyte% 8.2 % (0-10); NRBC Flagged by Analyzer 0 % (0-5); Neutrophil # 6.46 X10^3/uL (2.7-7.7); Neutrophil % 76.7 % (47-70); Platelet Count 294 K/mm3 (150-450); RBC Distribution Width CV 13.6 % (11.6-14.6); RBC Distribution Width SD 44.3 fl (35.1-43.9); White Blood Count 8.4 K/mm3 (4.4-11.0)
[2023-12-25 09:50] LABS: Anion Gap 4 (5-15); BUN 11 mg/dL (7-18); BUN/Creat Ratio 12.1 RATIO (10-20); Calcium,Total 8.7 mg/dL (8.5-10.1); Chloride 99 mmol/L (98-107); Creatinine, Serum 0.91 mg/dL (0.55-1.02); EST Glomerular Filtration Rate 67 mL/min (>60); Est Glom Filt Rate - Afr Amer 81 mL/min (>60); Glucose 85 mg/dL (74-106); Magnesium 2.2 mg/dL (1.6-2.6); Potassium 4.2 mmol/L (3.5-5.1); Sodium Level 131 mmol/L (136-145); Thyroid Stim Hormone (TSH) 3.46 uIU/mL (0.358-3.74)
[2023-12-25 09:51] LABS: Vitamin B12 236 pg/mL (211-911)
== END | disposition home or self-care (01) ==
LOC: OLS.SW 05:00
PROVIDERS: PCP Internal Medicine; Visit Provider Internal Medicine
DX: Z02.2 Encounter for examination for admission to residential institution (principal); J44.9 Chronic obstructive pulmonary disease, unspecified
CPT/HCPCS: 36415; 80048; 82306; 82607; 83735; 84443; 85025

== ENCOUNTER → 2023-12-31 05:00 | Outpatient (REF) | payer MEDICAID, SELFPAY ==
[2023-12-31 08:23] LABS: Absolute Lymphocyte Count 1.17 X10^3/uL (0.83-4.51); Absolute Neutrophil Count 5.7 X10^3/uL (2.0-7.7); Basophil# 0.02 X10^3/uL; Basophil% 0.3 % (0-1); Eosinophil# 0.04 X10^3/uL; Eosinophils% 0.5 % (0-5); Hematocrit 30.4 % (37-47); Hemoglobin 9.9 g/dL (12.0-15.0); Lymphocyte # 1.17 X10^3/ul (0.83-4.51); Lymphocyte % 15.6 % (19-41); Mean Corp Hgb Conc 32.6 g/dL (32-36); Mean Corpuscular Hgb 29.6 pg (27.0-32.0); Mean Platelet Vol. 9.9 fl (6.2-12.0); Monocyte# 0.54 X10^3/uL; Monocyte% 7.2 % (0-10); NRBC Flagged by Analyzer 0 % (0-5); Platelet Count 275 K/mm3 (150-450); RBC Distribution Width CV 14.2 % (11.6-14.6); RBC Distribution Width SD 46.8 fl (35.1-43.9); Red Blood Count 3.34 M/mm3 (4.2-5.4); White Blood Count 7.5 K/mm3 (4.4-11.0)
[2023-12-31 08:42] LABS: Anion Gap 3 (5-15); BUN 13 mg/dL (7-18); BUN/Creat Ratio 12.1 RATIO (10-20); Calcium,Total 8.8 mg/dL (8.5-10.1); Chloride 111 mmol/L (98-107); Creatinine, Serum 1.07 mg/dL (0.55-1.02); EST Glomerular Filtration Rate 56 mL/min (>60); Est Glom Filt Rate - Afr Amer 67 mL/min (>60); Glucose 97 mg/dL (74-106); Sodium Level 140 mmol/L (136-145)
== END ==
LOC: OLS.SW 05:00
PROVIDERS: PCP Internal Medicine; Visit Provider Internal Medicine
DX: E87.1 Hypo-osmolality and hyponatremia (principal); I13.0 Hypertensive heart and chronic kidney disease with heart failure and stage 1 through stage 4 chronic kidney disease, or unspecified chronic kidney disease; N18.32 Chronic kidney disease, stage 3b
CPT/HCPCS: 36415; 80048; 85025

== ENCOUNTER → 2024-01-02 | Outpatient (CLI) | payer MEDICAID, SELFPAY ==
--- NOTE | 2024-01-02 11:49 | NEURO ---
NCS and/or EMG Patient Report Ordering Doctor: [place] DATE OF SERVICE: 01/02/24 Soumya presents for electrodiagnostic testing of the left upper limb. She reports intermittent numbness and tingling in the left hand. Electrodiagnostic findings: Left median motor nerve demonstrates normal distal latency with reduced amplitude and normal conduction velocity. Left ulnar motor responses within normal limits. Normal median and ulnar F?waves. There is prolonged left median sensory latency at the wrist. Normal left ulnar and radial sensory responses. Needle EMG testing demonstrates no evidence of denervation with normal motor unit action potentials Electrodiagnostic impression: This is an abnormal study in the left upper limb 1. Electrodiagnostic findings demonstrate left-sided median mononeuropathy. This is consistent with a mild left carpal tunnel syndrome. 2. No electrodiagnostic evidence is noted for cervical radiculopathy. Multi Select Codes Neurology Neurology Interp Codes: 08156-42 Musc test done w/n test comp (interp) and 06087-11 Nrv cndj test 7-8 studies (interp)
== END | disposition home or self-care (01) ==
LOC: PSN 10:33
PROVIDERS: PCP Internal Medicine; Referring Provider Orthopaedic Surgery; Visit Provider Orthopaedic Surgery
DX: G56.02 Carpal tunnel syndrome, left upper limb (principal)
CPT/HCPCS: 95886; 95910

== ENCOUNTER → 2024-01-07 | Outpatient (REF) | payer MEDICAID, SELFPAY ==
[2024-01-07 09:16] LABS: Absolute Lymphocyte Count 1.06 X10^3/uL (0.83-4.51); Absolute Neutrophil Count 2.8 X10^3/uL (2.0-7.7); Basophil# 0.01 X10^3/uL; Basophil% 0.2 % (0-1); Eosinophil# 0.04 X10^3/uL; Eosinophils% 0.9 % (0-5); Hematocrit 35.8 % (37-47); Hemoglobin 11.5 g/dL (12.0-15.0); Lymphocyte # 1.06 X10^3/ul (0.83-4.51); Lymphocyte % 24.7 % (19-41); Mean Corp Hgb Conc 32.1 g/dL (32-36); Mean Corpuscular Hgb 29.3 pg (27.0-32.0); Mean Corpuscular Volume 91.3 fL (81-99); Mean Platelet Vol. 10.4 fl (6.2-12.0); Monocyte# 0.39 X10^3/uL; Monocyte% 9.1 % (0-10); NRBC Flagged by Analyzer 0 % (0-5); Neutrophil # 2.78 X10^3/uL (2.7-7.7); Neutrophil % 64.6 % (47-70); Platelet Count 245 K/mm3 (150-450); RBC Distribution Width CV 14.2 % (11.6-14.6); RBC Distribution Width SD 47.4 fl (35.1-43.9); Red Blood Count 3.92 M/mm3 (4.2-5.4); White Blood Count 4.3 K/mm3 (4.4-11.0)
[2024-01-07 09:38] LABS: Anion Gap 5 (5-15); BUN 14 mg/dL (7-18); BUN/Creat Ratio 13.1 RATIO (10-20); Chloride 110 mmol/L (98-107); Creatinine, Serum 1.07 mg/dL (0.55-1.02); EST Glomerular Filtration Rate 56 mL/min (>60); Est Glom Filt Rate - Afr Amer 67 mL/min (>60); Glucose 94 mg/dL (74-106); Potassium 4.2 mmol/L (3.5-5.1); Sodium Level 140 mmol/L (136-145)
== END | disposition home or self-care (01) ==
LOC: OLS.SW 05:00
PROVIDERS: PCP Internal Medicine; Visit Provider Internal Medicine
DX: N18.32 Chronic kidney disease, stage 3b (principal)
CPT/HCPCS: 36415; 80048; 85025

== ENCOUNTER 2024-01-11 15:13 | Observation (INO) | payer MEDICAID, SELFPAY ==
[2024-01-11 15:15] VITALS: BP 195/79; PULSE 96; RESP 18; TEMP 37.1; O2SAT 97; BMI 44.6
--- NOTE | 2024-01-11 15:38 | EKG12_ITS ---
Test Reason : SEIZURE Blood Pressure : / mmHG Vent. Rate : 097 BPM Atrial Rate : 097 BPM P-R Int : 166 ms QRS Dur : 078 ms QT Int : 336 ms P-R-T Axes : 037 -14 027 degrees QTc Int : 426 ms Normal sinus rhythm Possible Left atrial enlargement Minimal voltage criteria for LVH, may be normal variant ( R in aVL ) Borderline ECG Confirmed by Go Hager ([id number]), editor index ANAND HSIEH ([id number]) on 01/14/2024 11:12:04 AM Referred By: Confirmed By:Go Hager
--- NOTE | 2024-01-11 15:40 | CT_ITS ---
STUDY: CT CERVICAL SPINE WITHOUT CONTRAST REASON FOR EXAM: Female, 58 years old. Fall RADIATION DOSAGE (If Supplied By Facility): CTDIvol = ( 27.63 ) mGy, DLP = ( 563.99 ) mGycm TECHNIQUE: High resolution transaxial imaging was performed without contrast material. Sagittal and coronal images were reconstructed. Individualized dose optimization techniques were used for this CT. COMPARISON: None FINDINGS: Normal craniovertebral junction. Normal anterior atlantoaxial articulation. Normal odontoid process. Straightening of the cervical lordosis. Normal vertebral bodies and posterior osseous elements. C2-3: Normal endplates. Normal disc height and morphology. Normal central canal and intervertebral neuroforamina. C3-4: Normal endplates. Normal disc height and morphology. Normal central canal. Facet hypertrophy and uncovertebral spurring narrowing the left intervertebral neuroforamen. C4-5: Normal endplates. Normal disc height and morphology. Normal central canal. Facet hypertrophy and uncovertebral spurring narrowing the right intervertebral neuroforamen. C5-6: Normal endplates. Normal disc height and morphology. Normal central canal. Facet hypertrophy and uncovertebral spurring narrowing the intervertebral neuroforamina. C6-7: Normal endplates. Normal disc height and morphology. Normal central canal. Facet hypertrophy and uncovertebral spurring narrowing the intervertebral neuroforamina. C7-T1: Normal endplates. Normal disc height and morphology. Normal central canal and intervertebral neuroforamina. Normal visualized soft tissue structures. CT/Spine Cervical without Contras IMPRESSION: Degenerative changes of the cervical spine. Electronically Signed: Miguelito Moe DO at 17:05 EDT Reading Location ID and State: [facility] / [place] Tel [phone], Service support ,
--- NOTE | 2024-01-11 15:40 | CT_ITS ---
INDICATION: fall EXAMINATION: CT THORACIC SPINE - CT Spine Thoracic W/O Contrast Injection TECHNIQUE: Helically acquired images were obtained of the thoracic spine. 2D reformats were reviewed. A radiation dose optimization technique was used for this scan. IV Contrast dosage and agent: None. RADIATION DOSAGE (If Supplied By Facility): CTDIvol = ( 34.19 ) mGy, DLP = ( 1292.56 ) mGycm COMPARISON: FINDINGS: VERTEBRAE: No fracture. No discrete lytic or blastic abnormality observed. Mild endplate spurring at the mid thoracic segments. VERTEBRAL ALIGNMENT: Unremarkable. There is preservation of the normal thoracic kyphosis. DISCS: Disc heights are preserved. VISUALIZED THORAX: Visualized thoracic aorta is nondilated. Lung jacobsen are clear. CT/Spine Thoracic without Contras IMPRESSION: No evidence of acute thoracic spinal fracture or spondylolisthesis. Electronically Signed: Miguelito Moe DO at 17:25 EDT Reading Location ID and State: [facility] / [place] Tel [phone], Service support ,
--- NOTE | 2024-01-11 15:43 | EX.ED.DYSGE1 ---
HPI <NICK Alamo - Last Filed: 01/11/24 18:10> History of Present Illness Chief Complaint: Seizure Narrative Narrative: Patient is a 58-year-old female with history of chronic pain, obesity, hypertension, hyperlipidemia, diabetes who presents to the emergency department after a syncopal episode. Patient recently had a cyst removed from her lumbar spine December 16, she was then [facility] to a prison facility. Today she was going home, she walks with her rollator. Patient was walking, she states she turned to sit on her bed, had a syncopal episode and woke up on the floor. Her left leg was underneath her body the right leg was stretched out. Patient has pain to the left hip, thoracic and cervical spine. She denies any head injury. She denies any chest pain or shortness of breath. PFSH <NICK Alamo - Last Filed: 01/11/24 18:10> [facility] Medical History Abdominal pain Allergic rhinitis Aortic valve insufficiency Arthralgia of right hip Arthritis Asthma Back pain Bilateral flank pain Bilateral foot pain Bipolar 1 disorder Bipolar disorder Blackout Bladder disease Cancer Cardiology follow-up encounter Chest pain Chronic cough CKD (chronic kidney disease) Colitis Conversion disorder with abnormal movement Convulsion, non-epileptic COPD, mild COVID-19 virus infection CPAP (continuous positive airway pressure) dependence Cyclic vomiting syndrome Cyst Debility Degenerative tear of meniscus of left knee Depression Diarrhea Dietary restriction Difficulty chewing Disease of gingiva due to infection Dysuria Easy bruising Enchondroma of left humerus Enlarged aorta Excessive bleeding Family history of colon cancer Gastric reflux Gastritis Heart failure High cholesterol Hip dislocation, right History of abnormal cervical Pap smear History of atrial fibrillation History of CHF (congestive heart failure) History of echocardiogram History of edema History of hiatal hernia History of Holter monitoring History of IBS History of renal disease History of skin cancer History of steroid therapy History of stress test History of ulceration HTN (hypertension) Hx of tilt table evaluation Hypertensive crisis without congestive heart failure Hypokalemia Hyponatremia Hypothyroidism Impingement of left shoulder Injury of head and neck Intertriginous dermatitis associated with moisture Kidney disease Left arm swelling Leg cramps Loss of hearing Marijuana use Migraines Morbid obesity Myositis Non-convulsive status epilepticus Non-rheumatic mitral regurgitation Nonrheumatic aortic (valve) insufficiency Open wound Oral candidiasis Orthostatic hypotension DAPHNE (obstructive sleep apnea) Osteoarthritis Osteoarthritis of left knee Osteoarthritis of right hip PAF (paroxysmal atrial fibrillation) Pain of left calf Peripheral artery disease Post-menopausal Psychosis Pulmonary embolism Restless legs Sarcoidosis Schizo NEC, chrn/exacerb Schizophrenia Seizures Shortness of breath on exertion Sleep apnea Smoker Stroke Stroke/cerebrovascular accident Syncope Thyroid disease TIA (transient ischemic attack) Venous insufficiency of both lower extremities Walker as ambulation aid Wears dentures Wears glasses Home Medications hydroxyzine HCl 10 mg tablet 100 mg PO QHS anxiety 11/27/22 [History Last Taken 06/25/23] ondansetron 4 mg disintegrating tablet 4 mg PO Q8H PRN nausea and vomiting #60 tabs 04/30/23 [Rx Last Taken Unknown] nitroglycerin 0.4 mg sublingual tablet 0.4 mg sublingual PRN PRN CHEST PAIN #25 tabs 07/09/23 [Rx Last Taken Unknown] montelukast 10 mg tablet (Singulair) 10 mg PO QHS allergies #30 tabs 07/30/23 [Rx Last Taken Unknown] levothyroxine 50 mcg tablet See Rx Instructions .Route .COMPLEX #30 tabs 08/22/23 [Rx Last Taken Unknown] loratadine 10 mg tablet See Rx Instructions .Route .COMPLEX #30 tabs 08/22/23 [Rx Last Taken Unknown] losartan 100 mg tablet See Rx Instructions .Route .COMPLEX #30 tabs 08/22/23 [Rx Last Taken Unknown] spironolactone 25 mg tablet See Rx Instructions .Route .COMPLEX #30 tabs 08/22/23 [Rx Last Taken Unknown] melatonin 10 mg capsule 10 mg PO QHS insomnia #90 caps 10/18/23 [Rx Last Taken Unknown] polyethylene glycol 3350 17 gram/dose oral powder (Miralax) 17 g PO BID PRN Constipation #238 grams 11/12/23 [Rx Last Taken Unknown] oxycodone-acetaminophen 5 mg-325 mg tablet (Percocet) 1 tab PO TID PRN pain 3 days #10 tabs 11/16/23 [Rx Last Taken Unknown] miscellaneous medical supply #1 ea 11/26/23 [Rx Last Taken Unknown] miscellaneous medical supply #1 ea 11/26/23 [Rx Last Taken Unknown] miscellaneous medical supply 1 ea miscellaneous DAILY #1 ea 11/26/23 [Rx Last Taken Unknown] guaifenesin 1,200 mg tablet, extended release 12 hr 600 mg (1/2 x 1,200 mg) PO BID allergies #60 tabs 12/12/23 [Rx Last Taken Unknown] fluticasone propionate 50 mcg/actuation nasal spray,suspension See Rx Instructions .Route .COMPLEX #16 grams 12/18/23 [Rx Last Taken Unknown] lidocaine 5 % topical patch See Rx Instructions .Route .COMPLEX #30 ea 12/18/23 [Rx Last Taken Unknown] tiotropium bromide 1.25 mcg/actuation mist for inhalation (Spiriva Respimat) See Rx Instructions .Route .COMPLEX #4 grams 12/18/23 [Rx Last Taken Unknown] oxycodone 5 mg tablet 5 - 10 mg (1 - 2 x 5 mg) PO Q6H PRN pain 3 days #12 tabs 12/25/23 [Rx Last Taken Unknown] acetaminophen 325 mg capsule 325 mg PO Q4H 01/04/24 [History Last Taken Unknown] acetaminophen 650 mg rectal suppository 650 mg IL Q4H PRN 01/04/24 [History Last Taken Unknown] aluminum-magnesium hydroxide 225 mg-200 mg/5 mL oral suspension ml PO Q4H PRN 01/04/24 [History Last Taken Unknown] bisacodyl 10 mg rectal suppository 10 mg IL DAILY PRN 01/04/24 [History Last Taken Unknown] calcium carbonate 500 mg oral wafer 500 mg PO Q8H PRN 01/04/24 [History Last Taken Unknown] cetirizine 10 mg tablet 10 mg PO DAILY PRN 01/04/24 [History Last Taken Unknown] cholecalciferol (vitamin D3) 50 mcg (2,000 unit) capsule 50 mcg PO DAILY 01/04/24 [History Last Taken Unknown] cyanocobalamin (vitamin B-12) 500 mcg tablet 500 mcg PO DAILY 01/04/24 [History Last Taken Unknown] cyclobenzaprine 10 mg tablet 10 mg PO Q8H PRN 01/04/24 [History Last Taken Unknown] dextrose 40 % oral gel (Glucose Gel) 10 g PO Q15M PRN 01/04/24 [History Last Taken Unknown] diphenhydramine HCl 25 mg capsule (Allergy (diphenhydramine)) 25 mg PO Q6H PRN 01/04/24 [History Last Taken Unknown] gabapentin 300 mg capsule 300 mg PO TID 01/04/24 [History Last Taken Unknown] glucagon HCl 1 mg solution for injection (Glucagon (HCl) Emergency Kit) 1 mg subcut Q20M PRN 01/04/24 [History Last Taken Unknown] magnesium hydroxide 400 mg/5 mL oral suspension (Milk of Magnesia) 30 ml PO DAILY PRN 01/04/24 [History Last Taken Unknown] methocarbamol 750 mg tablet 750 mg PO Q8H PRN 01/04/24 [History Last Taken Unknown] mometasone 100 mcg/actuation HFA aerosol inhaler 2 puff inhalation BID 01/04/24 [History Last Taken Unknown] sennosides 8.6 mg-docusate sodium 50 mg tablet (Senna with Docusate Sodium) 1 tab-cap PO BID 01/04/24 [History Last Taken Unknown] sodium phosphates 19 gram-7 gram/118 mL enema (Fleet Enema) 118 ml IL ONCE 01/04/24 [History Last Taken Unknown] albuterol sulfate 90 mcg/actuation aerosol inhaler 2 puff inhalation Q4H PRN shortness of breath or wheezing #8.5 grams 01/11/24 [Rx Last Taken Unknown] aripiprazole 15 mg tablet 15 mg PO DAILY 01/11/24 [History Last Taken Unknown] doxycycline monohydrate 100 mg capsule PO 01/11/24 [History Last Taken Unknown] hydroxyzine HCl 50 mg tablet 50 mg PO BID 01/11/24 [History Last Taken Unknown] losartan 50 mg tablet 50 mg PO DAILY 01/11/24 [History Last Taken Unknown] Allergy/AdvReac Type Severity Reaction Status Date / Time adhesive tape Allergy Rash Verified 01/11/24 15:14 atropine sulfate Allergy Hives Verified 01/11/24 15:14 [From ] codeine phosphate Allergy breathing Verified 01/11/24 15:14 [From Tylenol-Codeine #3] problems divalproex sodium Allergy Unknown Verified 01/11/24 15:14 [From Depakote] guaifenesin Allergy Itching Verified 01/11/24 15:14 hydrocodone Allergy Itching Verified 01/11/24 15:14 hydromorphone HCl Allergy facial Verified 01/11/24 15:14 [From Dilaudid] blisters,itching hyoscyamine sulfate Allergy Hives Verified 01/11/24 15:14 [From ] Iodinated Contrast Media Allergy breathing Verified 01/11/24 15:14 [Iodinated Contrast Media - problems IV Dye] and my bp went up latex Allergy Rash Verified 01/11/24 15:14 pantoprazole sodium Allergy Rash Verified 01/11/24 15:14 [From Protonix] phenobarbital [From ] Allergy Hives Verified 01/11/24 15:14 promethazine HCl Allergy Anaphylaxis Verified 01/11/24 15:14 [From Phenergan] ramipril Allergy Unknown Verified 01/11/24 15:14 scopolamine hydrobromide Allergy Hives Verified 01/11/24 15:14 [From ] tramadol Allergy Itching Verified 01/11/24 15:14 ziprasidone mesylate Allergy Unknown Verified 01/11/24 15:14 [From Geodon] amlodipine AdvReac Vomiting Verified 01/11/24 15:14 levofloxacin [From Levaquin] AdvReac Itching Verified 01/11/24 15:14 metoclopramide [From Reglan] AdvReac Other Verified 01/11/24 15:14 Sulfa (Sulfonamide AdvReac Vomiting Verified 01/11/24 15:14 Antibiotics) ziprasidone HCl [From Geodon] AdvReac tremors Verified 01/11/24 15:14 Family History Sister Myocardial infarction Colon cancer Mother Hypertension Arthritis Brain aneurysm Heart disease High cholesterol Sister Colon cancer Heart disease High cholesterol Hypertension Arthritis Grandmother Arthritis Diabetes CVA (cerebral vascular accident) Father Heart disease High cholesterol Hypertension Surgical History bladder sling Cataract extraction status History of esophagogastroduodenoscopy (EGD) History of laparoscopic cholecystectomy History of uterine suspension procedure Hx of colonoscopy left foot Previous back surgery S/P carpal tunnel release Social History household members: none number of children: 4 current occupational status: unemployed history of recent travel: No Smoking Status: Current every day smoker tobacco type: cigarettes Tobacco: How many years used: 26 Electronic Cigarette Use: not used quit status: considering quitting alcohol intake: never substance use type: does not use caffeine: Yes Type: coffee what type of physical activity do you participate in: none seatbelt use: never do you feel safe at home: Yes additional social history: single ROS <NICK Alamo - Last Filed: 01/11/24 18:10> ROS ED ROS Narrative Constitutional: Negative for fever, chills, weight loss, weakness Eyes: Negative for vision loss, vision change, double vision ENT: Negative for any sore throat, ear pain, congestion Cardiovascular: Negative for any chest pain, tightness, palpitations Respiratory: Negative for any cough, sputum production, hemoptysis, dyspnea, dyspnea on exertion, orthopnea Gastrointestinal: Negative for any abdominal pain, nausea, vomiting, diarrhea, constipation, blood in stool, blood in vomit : Negative for any urinary frequency, dysuria, retention, blood in urine Muscle skeletal: Negative for any neck pain. Positive for thoracic back pain, cervical pain. Positive for left hip pain Neurological: Negative for any headache, syncope, dizziness Skin: Negative for any rashes, itching, abrasions, lacerations Psychiatric: Negative for any depression, anxiety, stress, suicidal ideation, homicidal ideation Hematologic: Negative for any excessive bruising, easy bleeding EXAM <NICK Alamo - Last Filed: 01/11/24 18:10> Physical Exam Narrative Exam Narrative: Vital signs reviewed. HEET: Head normocephalic atraumatic, TMs clear bilaterally. Posterior pharynx is clear, moist mucous membranes. Nares clear bilaterally. Neck: Supple with no lymphadenopathy or tenderness. No signs of meningismus. Cardiac: Regular rate and rhythm no murmurs gallops or rubs, equal peripheral pulses bilaterally. Respiratory: Lungs clear to auscultation bilaterally. No chest tenderness. Abdomen: Soft, nontender, nondistended. No abdominal bruit or pulsatile masses. No hepatosplenomegaly Extremities: Right lower extremity was unremarkable. Left lower extremity patient did have some difficulty with flexion of the left hip. Palpation to the anterior hip. Upper extremities were unremarkable. Neuro: Cranial nerves II through XII intact, no focal neurological deficits. Skin: Clean dry and intact with no rash, purpura, petechiae, vesicles or pustules. Backs/flank: No CVA tenderness, I did look at the patient's lumbar surgical incision scar. There is some redness however does not appear to be infectious, it appears to be more inflammatory. The surgical incision site looks well-appearing, there is no drainage. There is no fluctuance. Patient does have pain to the thoracic and cervical spine. No step-off deformity noted Psych: Normal mood and affect. No SI, HI or acute psychosis. Const Vital Signs: 01/11/24 15:15 01/11/24 17:14 Temperature 98.8 F Temperature Source Temporal Pulse Rate 96 90 Respiratory Rate 18 16 Blood Pressure 195/79 H 127/77 H Blood Pressure Mean 117 93 Pulse Ox 97 97 Oxygen Delivery Method Room Air Room Air Positive well nourished and well developed General Appearance ED: well developed <Dr. Addy Early MD - Last Filed: 01/11/24 16:23> Physical Exam Const Vital Signs: 01/11/24 15:15 01/11/24 17:14 Temperature 98.8 F Temperature Source Temporal Pulse Rate 96 90 Respiratory Rate 18 16 Blood Pressure 195/79 H 127/77 H Blood Pressure Mean 117 93 Pulse Ox 97 97 Oxygen Delivery Method Room Air Room Air MDM <NICK Alamo - Last Filed: 01/11/24 18:10> MDM Lab Data Labs: Laboratory Results - last 24 hr 01/11/24 16:10 WBC 9.2 RBC 5.04 Hgb 14.5 Hct 44.9 MCV 89.1 MCH 28.8 MCHC 32.3 RDW Std Deviation 46.2 H RDW Coeff of Yonathan 14.3 Plt Count 317 MPV 10.4 Immature Gran % (Auto) 0.400 Neut % (Auto) 78.5 H Lymph % (Auto) 12.0 L [place] % (Auto) 8.6 Eos % (Auto) 0.2 Baso % (Auto) 0.3 Absolute Neuts (auto) 7.2 Absolute Lymphs (auto) 1.10 Nucleated RBC % 0 Sodium 135 L Potassium 3.9 Chloride 103 Carbon Dioxide 25.0 Anion Gap 7 BUN 15 Creatinine 1.35 H Estim Creat Clear Calc 56.65 Est GFR (MDRD) Af Amer 52 L Est GFR (MDRD) Non-Af 43 L BUN/Creatinine Ratio 11.1 Glucose 120 H Calcium 10.0 Troponin I High Sens 12 Radiography Diagnostic Testing: Clinical Impression(s) from Imaging Studies Cervical Spine CT 01/11/24 15:40 IMPRESSION: Degenerative changes of the cervical spine. Electronically Signed: Miguelito Moe DO at 17:05 EDT , Thoracic Spine CT 01/11/24 15:40 IMPRESSION: No evidence of acute thoracic spinal fracture or spondylolisthesis. Electronically Signed: Miguelito Moe DO at 17:25 EDT , Hip/Pelvis X-Ray 01/11/24 16:36 IMPRESSION: No evidence of displaced pelvic or hip fracture. Electronically Signed: Miguelito Moe DO at 17:06 EDT , Lumbar Spine CT 01/11/24 16:36 IMPRESSION: Status post laminectomy at L4 with surgical fusion at L4-5. There is a 7.7 x 9.2 x 6.4 cm collection in the posterior subcutaneous soft tissue at the surgical region likely a seroma. Electronically Signed: Miguelito Moe DO at 17:16 EDT , EKG Normal sinus rhythm: Attestation: I personally reviewed and interpreted this EKG as follows: Comments: Normal sinus rhythm, rate 97 bpm, IL interval 166 ms, QRS duration 78 ms, no acute ST elevation, no acute infarct noted. Treatment and Re-Evaluation :: Differential diagnosis includes however is not limited to: Thoracic strain, cervical strain, left hip fracture, left hip contusion, syncopal episode, arrhythmia Patient appears to be in no obvious respiratory distress, vital signs are stable. Patient appears nontoxic. Patient presents to the emergency department after what appears to be a syncopal episode when she was turning to get into her bed falling from her rollator. Patient does have significant pain in the left hip, thoracic pain, cervical pain. Patient will receive x-rays of the left hip, CT scans of the thoracic and cervical spine. Patient be given oral Percocet. All radiologic examinations were read, reviewed by the emergency department attending. From these reads, a plan of care will be put in place. Patient CBC was unremarkable, patient's chemistries did show a creatinine of 1.35, this is elevated however in the last year, this appears to be baseline. Troponin was negative. EKG was unremarkable. Patient's x-ray of the left hip and pelvis shows no evidence of displaced pelvic or hip fracture. This was interpreted by the ER physician. Patient was given a Percocet here. Patient CT scan of the lumbar spine shows status post laminectomy at L4 with surgical fusion L4-L5. There is a seroma to the area 7.7 x 9.2 x 6.4 cm this is in the posterior subcutaneous soft tissue at the surgical region likely a seroma. Patient's CT of the cervical spine thoracic spine showed degenerative changes, no fracture. At this time, secondary to patient being just out of surgery, not being able to care for self at home, I do believe the patient needs to be admitted to the hospital. Patient agrees that she cannot take care of herself and wants go back to the prison. Patient be admitted to the hospitalist for placement. All questions answered stable for admission. <Dr. Addy Early MD - Last Filed: 01/11/24 16:23> [facility] Narrative Medical decision making narrative: I have personally performed a face to face assessment of the patient and have reviewed the CHARLEY Note. I performed a substantive portion of the visit including all aspects of the following. My christine findings include: History is [58-year-old female status post lumbar back surgery for a cyst done in [facility] first week of this month. She then went to an extended care facility for rehab. She is now at home. Today she got weak and fell the floor thinks she may have had a syncopal event. Denies any head injury. Complaining of neck and upper back pain. Denies any fever. Says she has been urinating less but denies dysuria. States she wants to be readmitted to be placed in an extended care facility because she does not think she can take care of herself at home currently.] Exam is [58-year-old female sitting upright in bed. Vital signs are stable afebrile. H EENT exam unremarkable atraumatic. Pupils round react to light. Mild dry mucous members. Neck nontender anteriorly. Diffuse posterior paracervical and cervical tenderness. She has diffuse thoracic tenderness. And a well-healing lumbar incision. Currently there is no cellulitis or discharge. Patient is moving all 4 extremities. Nontender. No deformity. Normal drafter automotive design layout strength. Normal dorsi plantarflexion. Lungs are clear. Heart regular rhythm. Anterior chest wall and ribs are nontender. Abdomen soft nontender hip. Hips there is no gross bony deformity or shortening or rotation. She is awake alert. Answering questions following commands.] Medical Decision Making [58-year-old female fell at home possible syncopal episode. Feels weak since her spinal surgery 4 weeks ago. Wants to be placed back in extended-care facility did not feel like she can care for self at home. Screening labs and CT of her cervical and thoracic spine are being obtained.] Other additions or changes: [None] History & Record Review Discussion w/independent historian: Patient and Friend Additional record(s) reviewed:: Prior inpatient record, Prior outpatient record, Prior ED visit and Prior labs Lab Data Attestation: I reviewed the patient's lab results. Labs: Laboratory Results - last 24 hr 01/11/24 16:10 WBC 9.2 RBC 5.04 Hgb 14.5 Hct 44.9 MCV 89.1 MCH 28.8 MCHC 32.3 RDW Std Deviation 46.2 H RDW Coeff of Yonathan 14.3 Plt Count 317 MPV 10.4 Immature Gran % (Auto) 0.400 Neut % (Auto) 78.5 H Lymph % (Auto) 12.0 L [place] % (Auto) 8.6 Eos % (Auto) 0.2 Baso % (Auto) 0.3 Absolute Neuts (auto) 7.2 Absolute Lymphs (auto) 1.10 Nucleated RBC % 0 Sodium 135 L Potassium 3.9 Chloride 103 Carbon Dioxide 25.0 Anion Gap 7 BUN 15 Creatinine 1.35 H Estim Creat Clear Calc 56.65 Est GFR (MDRD) Af Amer 52 L Est GFR (MDRD) Non-Af 43 L BUN/Creatinine Ratio 11.1 Glucose 120 H Calcium 10.0 Troponin I High Sens 12 Radiography Diagnostic Testing: Clinical Impression(s) from Imaging Studies Cervical Spine CT 01/11/24 15:40 IMPRESSION: Degenerative changes of the cervical spine. Electronically Signed: Miguelito Moe at 17:05 EDT , Thoracic Spine CT 01/11/24 15:40 IMPRESSION: No evidence of acute thoracic spinal fracture or spondylolisthesis. Electronically Signed: Miguelito MoeDO at 17:25 EDT , Hip/Pelvis X-Ray 01/11/24 16:36 IMPRESSION: No evidence of displaced pelvic or hip fracture. Electronically Signed: Miguelito MoeDO at 17:06 EDT , Lumbar Spine CT 01/11/24 16:36 IMPRESSION: Status post laminectomy at L4 with surgical fusion at L4-5. There is a 7.7 x 9.2 x 6.4 cm collection in the posterior subcutaneous soft tissue at the surgical region likely a seroma. Electronically Signed: Miguelito Moe at 17:16 EDT , Discharge Plan Dx/Rx/DC Orders Clinical Impression: Back contusion, Contusion of hip, Syncope, History of back surgery, Adult failure to thrive, Seroma, Fall Disposition Disposition: Acute Care [facility]
[2024-01-11] MEDS: Oxycodone/Apap 5/325 Tablet PO (15:57)
[2024-01-11 16:21] LABS: Absolute Neutrophil Count 7.2 X10^3/uL (2.0-7.7); Basophil# 0.03 X10^3/uL; Basophil% 0.3 % (0-1); Eosinophil# 0.02 X10^3/uL; Eosinophils% 0.2 % (0-5); Hematocrit 44.9 % (37-47); Hemoglobin 14.5 g/dL (12.0-15.0); Mean Corp Hgb Conc 32.3 g/dL (32-36); Mean Corpuscular Hgb 28.8 pg (27.0-32.0); Mean Corpuscular Volume 89.1 fL (81-99); Mean Platelet Vol. 10.4 fl (6.2-12.0); Monocyte# 0.79 X10^3/uL; Monocyte% 8.6 % (0-10); NRBC Flagged by Analyzer 0 % (0-5); Neutrophil # 7.22 X10^3/uL (2.7-7.7); Neutrophil % 78.5 % (47-70); Platelet Count 317 K/mm3 (150-450); RBC Distribution Width CV 14.3 % (11.6-14.6); RBC Distribution Width SD 46.2 fl (35.1-43.9); Red Blood Count 5.04 M/mm3 (4.2-5.4); White Blood Count 9.2 K/mm3 (4.4-11.0)
--- NOTE | 2024-01-11 16:36 | CT_ITS ---
STUDY: CT LUMBAR SPINE WITHOUT CONTRAST REASON FOR EXAM: Female, 58 years old. Recent surgery RADIATION DOSAGE (If Supplied By Facility): CTDIvol = ( 57.82 ) mGy, DLP = ( 1896.81 ) mGycm TECHNIQUE: The patient was scanned in a multi detector CT scanner. High resolution transaxial imaging was performed. Images were obtained from to . Sagittal and coronal images were reconstructed. Individualized dose optimization techniques were used for this CT. COMPARISON: None FINDINGS: Normal lumbar lordosis. There is no substantial scoliosis. Status post laminectomy at L4 with surgical fusion at L4-5. There is a 7.7 x 9.2 x 6.4 cm collection in the posterior subcutaneous soft tissue at the surgical region likely a seroma. L1-2: Normal endplates. Normal disc height and morphology. Normal bilateral facet joints. Normal central canal and bilateral lateral recesses. Normal bilateral intervertebral neural foramina. L2-3: Mild spurring at the endplates. Normal disc height and morphology. Normal bilateral facet joints. Normal central canal and bilateral lateral recesses. Normal bilateral intervertebral neural foramina. L3-4: Mild spurring at the endplates. Normal disc height and morphology. Normal bilateral facet joints. Normal central canal and bilateral lateral recesses. Normal bilateral intervertebral neural foramina. L4-5: Mild spurring at endplates. Normal disc height and morphology. Normal bilateral facet joints. Normal central canal and bilateral lateral recesses. Normal bilateral intervertebral neural foramina. L5-S1: Spurring at the endplates. Narrowed disc height with vacuum phenomenon. Normal bilateral facet joints. Normal central canal and bilateral lateral recesses. Degenerative spurring narrowing the bilateral intervertebral neural foramina. Normal visualized paraspinous soft tissue structures. CT/Spine Lumbar without Contrast IMPRESSION: Status post laminectomy at L4 with surgical fusion at L4-5. There is a 7.7 x 9.2 x 6.4 cm collection in the posterior subcutaneous soft tissue at the surgical region likely a seroma. Electronically Signed: Miguelito Moe DO at 17:16 EDT Reading Location ID and State: [facility] / [place] Tel [phone], Service support ,
--- NOTE | 2024-01-11 16:36 | RAD_ITS ---
INDICATION: fall EXAMINATION/TECHNIQUE: X-RAY - XR Hip Unilateral with Pelvis when performed; 2-3 Views COMPARISON: FINDINGS: PELVIC BONES: No displaced fracture, destructive or sclerotic lesions. Note that overlapping bowel shadows may however obscure fine detail. Sacroiliac joints are unremarkable. No widening of the pubic symphysis. HIPS: The articular structures are unremarkable. No displaced fracture seen in this frontal view. SOFT TISSUES: No soft tissue swelling or gas. RAD/HIP, UNI W/ Pelvis 2-3 Views IMPRESSION: No evidence of displaced pelvic or hip fracture. Electronically Signed: Miguelito Moe DO at 17:06 EDT Reading Location ID and State: [facility] / [place] Tel [phone], Service support ,
[2024-01-11 16:39] LABS: Anion Gap 7 (5-15); BUN 15 mg/dL (7-18); BUN/Creat Ratio 11.1 RATIO (10-20); Chloride 103 mmol/L (98-107); Creatinine, Serum 1.35 mg/dL (0.55-1.02); EST Glomerular Filtration Rate 43 mL/min (>60); Est Glom Filt Rate - Afr Amer 52 mL/min (>60); Estimated Creatinine Clearance 56.65 ml/min; Glucose 120 mg/dL (74-106); Potassium 3.9 mmol/L (3.5-5.1); Sodium Level 135 mmol/L (136-145); Troponin-I HS 12 pg/mL (3.0-54.0)
[2024-01-11 17:14] VITALS: BP 127/77; PULSE 90; RESP 16; O2SAT 97
--- NOTE | 2024-01-11 18:22 | HP.PCM.HOS_ITS ---
[facility] - General General Date of Service: 01/11/24 Chief Complaint: syncope HPI Narrative NIGHAT TIMMONS, is a 58 F who presents with syncope. At 0800, patient was d ischarged from residential facility for rehab after back surgery to remove the cyst. At around 1400 she was getting in bed, got nauseated in the next and she knows she was on the floor. She does not think that she was incontinent. She presented emergency room and was evaluated. Recent surgery she did have back x-ray that did show seroma. Otherwise her workup was unremarkable. Patient is very concerned about going home sure she can take care of herself requesting admission going back to a residential facility. [facility] Medical History Abdominal pain Allergic rhinitis Aortic valve insufficiency Arthralgia of right hip Arthritis Asthma Back pain Bilateral flank pain Bilateral foot pain Bipolar 1 disorder Bipolar disorder Blackout Bladder disease Cancer Cardiology follow-up encounter Chest pain Chronic cough CKD (chronic kidney disease) Colitis Conversion disorder with abnormal movement Convulsion, non-epileptic COPD, mild COVID-19 virus infection CPAP (continuous positive airway pressure) dependence Cyclic vomiting syndrome Cyst Debility Degenerative tear of meniscus of left knee Depression Diarrhea Dietary restriction Difficulty chewing Disease of gingiva due to infection Dysuria Easy bruising Enchondroma of left humerus Enlarged aorta Excessive bleeding Family history of colon cancer Gastric reflux Gastritis Heart failure High cholesterol Hip dislocation, right History of abnormal cervical Pap smear History of atrial fibrillation History of CHF (congestive heart failure) History of echocardiogram History of edema History of hiatal hernia History of Holter monitoring History of IBS History of renal disease History of skin cancer History of steroid therapy History of stress test History of ulceration HTN (hypertension) Hx of tilt table evaluation Hypertensive crisis without congestive heart failure Hypokalemia Hyponatremia Hypothyroidism Impingement of left shoulder Injury of head and neck Intertriginous dermatitis associated with moisture Kidney disease Left arm swelling Leg cramps Loss of hearing Marijuana use Migraines Morbid obesity Myositis Non-convulsive status epilepticus Non-rheumatic mitral regurgitation Nonrheumatic aortic (valve) insufficiency Open wound Oral candidiasis Orthostatic hypotension DAPHNE (obstructive sleep apnea) Osteoarthritis Osteoarthritis of left knee Osteoarthritis of right hip PAF (paroxysmal atrial fibrillation) Pain of left calf Peripheral artery disease Post-menopausal Psychosis Pulmonary embolism Restless legs Sarcoidosis Schizo NEC, chrn/exacerb Schizophrenia Seizures Shortness of breath on exertion Sleep apnea Smoker Stroke Stroke/cerebrovascular accident Syncope Thyroid disease TIA (transient ischemic attack) Venous insufficiency of both lower extremities Walker as ambulation aid Wears dentures Wears glasses Home Medications hydroxyzine HCl 10 mg tablet 100 mg PO QHS anxiety 11/27/22 [History Last Taken 06/25/23] ondansetron 4 mg disintegrating tablet 4 mg PO Q8H PRN nausea and vomiting #60 tabs 04/30/23 [Rx Last Taken Unknown] nitroglycerin 0.4 mg sublingual tablet 0.4 mg sublingual PRN PRN CHEST PAIN #25 tabs 07/09/23 [Rx Last Taken Unknown] montelukast 10 mg tablet (Singulair) 10 mg PO QHS allergies #30 tabs 07/30/23 [Rx Last Taken Unknown] levothyroxine 50 mcg tablet See Rx Instructions .Route .COMPLEX #30 tabs 08/22/23 [Rx Last Taken Unknown] loratadine 10 mg tablet See Rx Instructions .Route .COMPLEX #30 tabs 08/22/23 [Rx Last Taken Unknown] losartan 100 mg tablet See Rx Instructions .Route .COMPLEX #30 tabs 08/22/23 [Rx Last Taken Unknown] spironolactone 25 mg tablet See Rx Instructions .Route .COMPLEX #30 tabs 08/22/23 [Rx Last Taken Unknown] melatonin 10 mg capsule 10 mg PO QHS insomnia #90 caps 10/18/23 [Rx Last Taken Unknown] polyethylene glycol 3350 17 gram/dose oral powder (Miralax) 17 g PO BID PRN Constipation #238 grams 11/12/23 [Rx Last Taken Unknown] oxycodone-acetaminophen 5 mg-325 mg tablet (Percocet) 1 tab PO TID PRN pain 3 days #10 tabs 11/16/23 [Rx Last Taken Unknown] miscellaneous medical supply #1 ea 11/26/23 [Rx Last Taken Unknown] miscellaneous medical supply #1 ea 11/26/23 [Rx Last Taken Unknown] miscellaneous medical supply 1 ea miscellaneous DAILY #1 ea 11/26/23 [Rx Last Taken Unknown] guaifenesin 1,200 mg tablet, extended release 12 hr 600 mg (1/2 x 1,200 mg) PO BID allergies #60 tabs 12/12/23 [Rx Last Taken Unknown] fluticasone propionate 50 mcg/actuation nasal spray,suspension See Rx I nstructions .Route .COMPLEX #16 grams 12/18/23 [Rx Last Taken Unknown] lidocaine 5 % topical patch See Rx Instructions .Route .COMPLEX #30 ea 12/18/23 [Rx Last Taken Unknown] tiotropium bromide 1.25 mcg/actuation mist for inhalation (Spiriva Respimat) See Rx Instructions .Route .COMPLEX #4 grams 12/18/23 [Rx Last Taken Unknown] oxycodone 5 mg tablet 5 - 10 mg (1 - 2 x 5 mg) PO Q6H PRN pain 3 days #12 tabs 12/25/23 [Rx Last Taken Unknown] acetaminophen 325 mg capsule 325 mg PO Q4H 01/04/24 [History Last Taken Unknown] acetaminophen 650 mg rectal suppository 650 mg GA Q4H PRN 01/04/24 [History Last Taken Unknown] aluminum-magnesium hydroxide 225 mg-200 mg/5 mL oral suspension ml PO Q4H PRN 01/04/24 [History Last Taken Unknown] bisacodyl 10 mg rectal suppository 10 mg GA DAILY PRN 01/04/24 [History Last Taken Unknown] calcium carbonate 500 mg oral wafer 500 mg PO Q8H PRN 01/04/24 [History Last Taken Unknown] cetirizine 10 mg tablet 10 mg PO DAILY PRN 01/04/24 [History Last Taken Unknown] cholecalciferol (vitamin D3) 50 mcg (2,000 unit) capsule 50 mcg PO DAILY 01/04/24 [History Last Taken Unknown] cyanocobalamin (vitamin B-12) 500 mcg tablet 500 mcg PO DAILY 01/04/24 [History Last Taken Unknown] cyclobenzaprine 10 mg tablet 10 mg PO Q8H PRN 01/04/24 [History Last Taken Unknown] dextrose 40 % oral gel (Glucose Gel) 10 g PO Q15M PRN 01/04/24 [History Last Taken Unknown] diphenhydramine HCl 25 mg capsule (Allergy (diphenhydramine)) 25 mg PO Q6H PRN 01/04/24 [History Last Taken Unknown] gabapentin 300 mg capsule 300 mg PO TID 01/04/24 [History Last Taken Unknown] glucagon HCl 1 mg solution for injection (Glucagon (HCl) Emergency Kit) 1 mg subcut Q20M PRN 01/04/24 [History Last Taken Unknown] magnesium hydroxide 400 mg/5 mL oral suspension (Milk of Magnesia) 30 ml PO DAILY PRN 01/04/24 [History Last Taken Unknown] methocarbamol 750 mg tablet 750 mg PO Q8H PRN 01/04/24 [History Last Taken Unknown] mometasone 100 mcg/actuation HFA aerosol inhaler 2 puff inhalation BID 01/04/24 [History Last Taken Unknown] sennosides 8.6 mg-docusate sodium 50 mg tablet (Senna with Docusate Sodium) 1 tab-cap PO BID 01/04/24 [History Last Taken Unknown] sodium phosphates 19 gram-7 gram/118 mL enema (Fleet Enema) 118 ml GA ONCE 01/04/24 [History Last Taken Unknown] albuterol sulfate 90 mcg/actuation aerosol inhaler 2 puff inhalation Q4H PRN shortness of breath or wheezing #8.5 grams 01/11/24 [Rx Last Taken Unknown] aripiprazole 15 mg tablet 15 mg PO DAILY 01/11/24 [History Last Taken Unknown] doxycycline monohydrate 100 mg capsule PO 01/11/24 [History Last Taken Unknown] hydroxyzine HCl 50 mg tablet 50 mg PO BID 01/11/24 [History Last Taken Unknown] losartan 50 mg tablet 50 mg PO DAILY 01/11/24 [History Last Taken Unknown] Allergy/AdvReac Type Severity Reaction Status Date / Time adhesive tape Allergy Rash Verified 01/11/24 15:14 atropine sulfate Allergy Hives Verified 01/11/24 15:14 [From ] codeine phosphate Allergy breathing Verified 01/11/24 15:14 [From Tylenol-Codeine #3] problems divalproex sodium Allergy Unknown Verified 01/11/24 15:14 [From Depakote] guaifenesin Allergy Itching Verified 01/11/24 15:14 hydrocodone Allergy Itching Verified 01/11/24 15:14 hydromorphone HCl Allergy facial Verified 01/11/24 15:14 [From Dilaudid] blisters,itching hyoscyamine sulfate Allergy Hives Verified 01/11/24 15:14 [From ] Iodinated Contrast Media Allergy breathing Verified 01/11/24 15:14 [Iodinated Contrast Media - problems IV Dye] and my bp went up latex Allergy Rash Verified 01/11/24 15:14 pantoprazole sodium Allergy Rash Verified 01/11/24 15:14 [From Protonix] phenobarbital [From ] Allergy Hives Verified 01/11/24 15:14 promethazine HCl Allergy Anaphylaxis Verified 01/11/24 15:14 [From Phenergan] ramipril Allergy Unknown Verified 01/11/24 15:14 scopolamine hydrobromide Allergy Hives Verified 01/11/24 15:14 [From ] tramadol Allergy Itching Verified 01/11/24 15:14 ziprasidone mesylate Allergy Unknown Verified 01/11/24 15:14 [From Geodon] amlodipine AdvReac Vomiting Verified 01/11/24 15:14 levofloxacin [From Levaquin] AdvReac Itching Verified 01/11/24 15:14 metoclopramide [From Reglan] AdvReac Other Verified 01/11/24 15:14 Sulfa (Sulfonamide AdvReac Vomiting Verified 01/11/24 15:14 Antibiotics) ziprasidone HCl [From Geodon] AdvReac tremors Verified 01/11/24 15:14 Family History Sister Myocardial infarction Colon cancer Mother Hypertension Arthritis Brain aneurysm Heart disease High cholesterol Sister Colon cancer Heart disease High cholesterol Hypertension Arthritis Grandmother Arthritis Diabetes CVA (cerebral vascular accident) Father Heart disease High cholesterol Hypertension Surgical History bladder sling Cataract extraction status History of esophagogastroduodenoscopy (EGD) History of laparoscopic cholecystectomy History of uterine suspension procedure Hx of colonoscopy left foot Previous back surgery S/P carpal tunnel release Social History household members: none number of children: 4 current occupational status: unemployed history of recent travel: No Smoking Status: Current every day smoker tobacco type: cigarettes Tobacco: How many years used: 26 Electronic Cigarette Use: not used quit status: considering quitting alcohol intake: never substance use type: does not use caffeine: Yes Type: coffee what type of physical activity do you participate in: none seatbelt use: never do you feel safe at home: Yes additional social history: single ROS ROS Narrative Back pain since surgery. No dysuria. No fever or chills. All review of systems were negative except as mentioned above in the history of present illness and the other review of systems. Vital Signs Vital Signs Vital Signs: 01/11/24 15:15 01/11/24 17:14 Temperature 37.1 C Temperature Source Temporal Pulse Rate 96 90 Respiratory Rate 18 16 Blood Pressure 195/79 H 127/77 H Blood Pressure Mean 117 93 Pulse Ox 97 97 Oxygen Delivery Method Room Air Room Air Weight Weight: 117.9 kg Body Mass Index (BMI) 44.6 Physical Exam Const alert and no apparent distress Constitutional Narrative: Appears older than chronologic age General Appearance: cooperative HEENT normocephalic, head/scalp atraumatic and moist oral mucous membranes Eyes Eyes Narrative: No icterus Neck no lymphadenopathy Neck Narrative: No thyromegaly Resp normal respiratory effort, no retractions, no use of accessory muscles and clear to auscultation bilaterally Cardio regular rate, regular rhythm, S1 normal heart sound and S2 normal heart sound GI normal to inspection, nondistended, normoactive bowel sounds, soft to palpation, non-tender and non-distended Extremity normal to inspection and no clubbing, cyanosis or edema Skin Skin Narrative: Back was evaluated and incision is well-approximated. No tenderness or palpable fluctuance appreciated. Neuro Sensorium / Orientation: awake and alert Results Lab / Micro Data Attestation: I reviewed the patient's lab results. 01/11/24 16:10 01/11/24 16:10 Labs: Laboratory Results - last 24 hr 01/11/24 16:10: WBC 9.2, RBC 5.04, Hgb 14.5, Hct 44.9, MCV 89.1, MCH 28.8, MCHC 32.3, RDW Std Deviation 46.2 H, RDW Coeff of Yonathan 14.3, Plt Count 317, MPV 10.4, Immature Gran % (Auto) 0.400, Neut % (Auto) 78.5 H, Lymph % (Auto) 12.0 L, [place] % (Auto) 8.6, Eos % (Auto) 0.2, Baso % (Auto) 0.3, Absolute Neuts (auto) 7.2, Absolute Lymphs (auto) 1.10, Nucleated RBC % 0, Sodium 135 L, Potassium 3.9, Chloride 103, Carbon Dioxide 25.0, Anion Gap 7, BUN 15, Creatinine 1.35 H, Estim Creat Clear Calc 56.65, Est GFR (MDRD) Af Amer 52 L, Est GFR (MDRD) Non-Af 43 L, BUN/Creatinine Ratio 11.1, Glucose 120 H, Calcium 10.0, Troponin I High Sens 12 EKG Initial EKG: Attestation: I personally reviewed and interpreted this EKG as follows: Prior EKG tracings: available for review EKG Rhythm Intrepretation: Sinus Rhythm Imaging Radiology Impression Cervical Spine CT 01/11/24 15:40 IMPRESSION: Degenerative changes of the cervical spine. Electronically Signed: Miguelito Moe DO at 17:05 EDT , Thoracic Spine CT 01/11/24 15:40 IMPRESSION: No evidence of acute thoracic spinal fracture or spondylolisthesis. Electronically Signed: Miguelito Moe DO at 17:25 EDT , Hip/Pelvis X-Ray 01/11/24 16:36 IMPRESSION: No evidence of displaced pelvic or hip fracture. Electronically Signed: Miguelito Moe DO at 17:06 EDT , Lumbar Spine CT 01/11/24 16:36 IMPRESSION: Status post laminectomy at L4 with surgical fusion at L4-5. There is a 7.7 x 9.2 x 6.4 cm collection in the posterior subcutaneous soft tissue at the surgical region likely a seroma. Electronically Signed: Miguelito Moe DO at 17:16 EDT , Assessment & Plan Assessment/Plan (1) Syncope: (2) Seroma: PLAN: Plan Syncope * Patient had some preceding nausea. According the patient, she had not eaten or being discharged at 8 AM. This event happened at 1400. This sounds vasovagal. No additional workup or monitoring on telemetry at this time. I do not feel this is a seizure though she has a reported history of seizure disorders as well as this does not sound there. * Will give her some IV fluids and let her eat Seroma * Recently this month, patient underwent surgery to remove a cyst that she was having low back [facility]. This likely postoperative issue. Patient does not seem to be having any acute issues with that. Does not appear to be infected suggesting anything like an abscess. * Patient to follow-up with her spine surgeon/neurosurgeon in [facility] Debility * Patient was only 6 hours out from being discharged from residential facility * She does not feel that she can go home safely at this time and wishing to go back to residential facility. * I told her that have therapy see her to determine if she would be a candidate for additional therapy. Chronic medical conditions * Are multiple and appear to be stable at this time. Awaiting on final medication reconciliation Home medications before this can be resumed. * Patient has a history of chronic kidney disease, migraines, arthritis, GERD, DAPHNE, asthma, stroke, seizure, COPD, depression, hypothyroidism, psychosis, conversion disorder, gastroparesis and numerous medication allergies/adverse reactions. VTE prophylaxis: Not indicated given current observation status Disposition: To be determined. Do well enough that she can go home safely for residential facility. I do not feel that the patient's status warrants level for admission therefore she is going to be observation status. Patient was informed of this. Charges/Coding Visit Charges Inpatient E&M: 00161 Init Hosp L2
[2024-01-11 18:25] VITALS: BP 141/86; PULSE 93; RESP 18; TEMP 36.4; O2SAT 99
[2024-01-11 19:00] VITALS: BP 109/92; PULSE 92; RESP 16; O2SAT 96
[2024-01-11 19:49] VITALS: BMI 45.8
[2024-01-11 20:14] VITALS: BP 119/64; PULSE 85; RESP 18; TEMP 36.6; O2SAT 95
[2024-01-11] MEDS: oxyCODONE 5 MG Tablet PO (20:34)
[2024-01-11] MEDS: Acetaminophen 500 MG Tablet 1000 MG PO (20:34)
[2024-01-11] MEDS: 0.9% Normal Saline (1000mL) 1,000 ML 150 ML IV (22:41)
[2024-01-11] MEDS: Glycerin/Hypromellose/PEG400 15 ml Bottle 1 DRP OPHTHALMIC (22:45)
[2024-01-11] MEDS: Fluticasone 0.05% 1 SPRAY NASAL.SRY NASAL (22:46)
[2024-01-11] MEDS: guaiFENesin 600 MG Tablet PO (22:47)
[2024-01-11] MEDS: MELATONIN 10 MG TABLET PO (22:47)
[2024-01-11] MEDS: Carvedilol 3.125 MG TABLET PO (22:47)
[2024-01-11 22:48] VITALS: PULSE 85
[2024-01-11] MEDS: Senna/Docusate Sodium 1 Tablet PO (22:48)
[2024-01-11] MEDS: Spironolactone 25 MG Tablet PO (22:48)
[2024-01-11] MEDS: Montelukast 10 MG Tablet PO (22:48)
[2024-01-11] MEDS: hydrOXYzine PAM 25 MG Capsule 100 MG PO (22:48)
[2024-01-11] MEDS: hydrALAZINE 50 MG Tablet PO (22:48)
[2024-01-11] MEDS: traZODone 100 MG Tablet PO (22:48)
[2024-01-11] MEDS: NIFEdipine 30 MG Tablet PO (22:48)
[2024-01-11] MEDS: Gabapentin 300 MG Capsule PO (22:51)
[2024-01-11 23:57] LABS: Bacteria 0 SEEN /hpf (None Seen); Red Blood Cells-Urine 0 SEEN /hpf (0-5); White Blood Cells 0 SEEN /hpf (0-5)
[2024-01-12] VITALS (10 sets, daily range): BP systolic 111–140; BP diastolic 48–54; PULSE 58–94; RESP 16–20; TEMP 36.1–36.6; O2SAT 96–99
[2024-01-12 00:58] LABS: Glucose, Dipstick Normal (Normal); Ketone-Dipstick Negative (Negative); Leukocyte Esterase-Dipstick Negative /ul (Negative); Nitrite-Dipstick Negative (Negative); Occult Blood-Urine Negative /ul (Negative); Protein-Dipstick 30 mg/dl (Negative); Urine Bilirubin Dipstick Negative (Negative); Urine Urobilinogen Normal (Normal)
[2024-01-12 00:59] LABS: Color, Urine Yellow (Yellow); Urine Clarity Clear (Clear)
[2024-01-12 01:00] LABS: Hyaline Cast 0-5 SEEN /lpf (0-5); Mucous, Urine 1+ /hpf (<or=2+); Squamous Epithelial Cells - UA 0-5 SEEN /hpf (5-10)
[2024-01-12] MEDS: hydrOXYzine PAM 25 MG Capsule 50 MG PO ×2 (05:16→14:40)
[2024-01-12] MEDS: hydrALAZINE 50 MG Tablet PO ×3 (05:16→21:31)
[2024-01-12] MEDS: Levothyroxine 50 MCG Tablet PO (05:16)
[2024-01-12] MEDS: Gabapentin 300 MG Capsule PO ×3 (05:16→21:31)
[2024-01-12] MEDS: Ipratropium/Albuterol Sulfate 3 ML AMPUL.NEB INHALATION ×3 (07:07→20:20)
[2024-01-12] MEDS: Budesonide Respules 0.5 MG/2 ML AMPUL.NEB. INHALATION ×2 (07:07→20:20)
[2024-01-12] MEDS: Acetaminophen 325 MG Tablet PO (08:33)
[2024-01-12] MEDS: oxyCODONE 5 MG Tablet PO ×2 (08:33→18:43)
[2024-01-12] MEDS: Aspirin E.C. 81 MG Tablet PO (08:34)
[2024-01-12] MEDS: Carvedilol 3.125 MG TABLET PO ×2 (08:35→18:43)
[2024-01-12] MEDS: ARIPiprazole 5 MG Tablet 15 MG PO (08:36)
[2024-01-12] MEDS: Glycerin/Hypromellose/PEG400 15 ml Bottle 1 DRP OPHTHALMIC ×2 (08:37→21:30)
[2024-01-12] MEDS: Loratadine 10 MG Tablet PO (08:37)
[2024-01-12] MEDS: Losartan Potassium 50 MG Tablet PO (08:38)
[2024-01-12] MEDS: Fluticasone 0.05% 1 SPRAY NASAL.SRY NASAL ×2 (08:38→21:30)
[2024-01-12] MEDS: Furosemide 20 MG Tablet PO (08:38)
[2024-01-12] MEDS: Polyethylene Glycol 3350 17 GM PACKET PO (08:39)
[2024-01-12] MEDS: Lidocaine 5% Patch 3 PATCH TOPICAL (08:39)
[2024-01-12] MEDS: guaiFENesin 600 MG Tablet PO ×2 (08:39→21:31)
[2024-01-12] MEDS: Senna/Docusate Sodium 1 Tablet PO ×2 (08:40→21:31)
[2024-01-12] MEDS: Cyanocobalamin 500 MCG Tablet PO (08:40)
[2024-01-12] MEDS: Cholecalciferol (VIT D3) 25 MCG TABLET (1,000 UNITS) 50 MCG PO (08:40)
[2024-01-12] MEDS: NIFEdipine 30 MG Tablet PO ×2 (08:40→21:31)
[2024-01-12] MEDS: Nystatin Powder 15gm Bottle 1 APPLIC TOPICAL ×2 (10:39→21:29)
--- NOTE | 2024-01-12 11:37 | PCM.PN.HOSP ---
Reason for Visit Reason for Visit: Diagnoses Syncope and collapse (01/11/24) Subjective Subjective Patient was seen and examined today, she tells me that she does not want to return to a skilled nursing. She lives alone, it appears she has a history of bipolar disorder, she was released from [facility] yesterday after rehabbing due to a back surgery. Patient had an episode of syncope at home, etiology unclear, she was only home approximately 6 hours before this happened. She was admitted yesterday for possible placement due to debility, PT and OT tell me today that she was able to ambulate with assistance down the vogel with a walker. Objective Data Objective Data Vital Signs: Vital Signs Temp Pulse Resp BP Pulse Ox O2 Del Method 97.8 F 60 18 140/52 H 99 Room Air 01/12/24 08:42 01/12/24 08:42 01/12/24 08:42 01/12/24 08:42 01/12/24 08:42 01/12/24 08:47 Oxygen Delivery Method Room Air Weight: 121.109 kg Body Mass Index (BMI) 45.8 Intake & Output: Intake and Output for Last 24 Hours 01/10/24 01/11/24 01/12/24 23:59 23:59 23:59 Intake Total 1000 / 1000 Output Total 900 / 900 475 / 475 Balance -900 / -900 525 / 525 Lab / Micro Data 01/11/24 16:10 01/11/24 16:10 Labs: Laboratory Results - last 24 hr 01/11/24 16:10: WBC 9.2, RBC 5.04, Hgb 14.5, Hct 44.9, MCV 89.1, MCH 28.8, MCHC 32.3, RDW Std Deviation 46.2 H, RDW Coeff of Yonathan 14.3, Plt Count 317, MPV 10.4, Immature Gran % (Auto) 0.400, Neut % (Auto) 78.5 H, Lymph % (Auto) 12.0 L, Henry % (Auto) 8.6, Eos % (Auto) 0.2, Baso % (Auto) 0.3, Absolute Neuts (auto) 7.2, Absolute Lymphs (auto) 1.10, Nucleated RBC % 0, Sodium 135 L, Potassium 3.9, Chloride 103, Carbon Dioxide 25.0, Anion Gap 7, BUN 15, Creatinine 1.35 H, Estim Creat Clear Calc 56.65, Est GFR (MDRD) Af Amer 52 L, Est GFR (MDRD) Non-Af 43 L, BUN/Creatinine Ratio 11.1, Glucose 120 H, Calcium 10.0, Troponin I High Sens 12 01/11/24 18:19: Urine Color Cancelled, Urine Clarity Cancelled, Urine pH Cancelled, Ur Specific Sprakers Cancelled, U Specif Grav (Refrac) Cancelled, Urine Protein Cancelled, Urine Glucose (UA) Cancelled, Urine Ketones Cancelled, Urine Occult Blood Cancelled, Urine Nitrite Cancelled, Urine Bilirubin Cancelled, Urine Urobilinogen Cancelled, Ur Leukocyte Esterase Cancelled, Urine RBC Cancelled, Urine WBC Cancelled, Ur Squamous Epith Cells Cancelled, Ur Transition Epith Cell Cancelled, Ur Renal Epithelial Cell Cancelled, Calcium Oxalate Crystal Cancelled, Uric Acid Crystals Cancelled, Triple Phos Crystals Cancelled, Other Crystals Cancelled, Amorphous Sediment Cancelled, Urine Bacteria Cancelled, Hyaline Casts Cancelled, Fine Granular Casts Cancelled, Coarse Granular Casts Cancelled, Waxy Casts Cancelled, RBC Casts Cancelled, WBC Casts Cancelled, Urine Mucus Cancelled, Urine Trichomonas Cancelled, Urine Yeast Cancelled 01/11/24 23:45: Urine Color Yellow, Urine Clarity Clear, Urine pH 5.0, Ur Specific Sprakers 1.020, Urine Protein 30 H, Urine Glucose (UA) Normal, Urine Ketones Negative, Urine Occult Blood Negative, Urine Nitrite Negative, Urine Bilirubin Negative, Urine Urobilinogen Normal, Ur Leukocyte Esterase Negative, Urine RBC 0 SEEN, Urine WBC 0 SEEN, Ur Squamous Epith Cells 0-5 SEEN, Urine Bacteria 0 SEEN, Hyaline Casts 0-5 SEEN, Urine Mucus 1+ Radiography Diagnostic Testing: Radiology Impression Cervical Spine CT 01/11/24 15:40 IMPRESSION: Degenerative changes of the cervical spine. Electronically Signed: Miguelito Moe DO at 17:05 EDT Reading Location ID and State: [facility] / [place] Tel [phone], Service support , Thoracic Spine CT 01/11/24 15:40 IMPRESSION: No evidence of acute thoracic spinal fracture or spondylolisthesis. Electronically Signed: Miguelito Moe DO at 17:25 EDT , Hip/Pelvis X-Ray 01/11/24 16:36 IMPRESSION: No evidence of displaced pelvic or hip fracture. Electronically Signed: Miguelito MoeDO at 17:06 EDT , Lumbar Spine CT 01/11/24 16:36 IMPRESSION: Status post laminectomy at L4 with surgical fusion at L4-5. There is a 7.7 x 9.2 x 6.4 cm collection in the posterior subcutaneous soft tissue at the surgical region likely a seroma. Electronically Signed: Miguelito DO Abhi at 17:16 EDT , Physical Exam Const alert and no apparent distress Constitutional Narrative: Patient appears older than her stated age, she is morbidly obese General Appearance: cooperative, well kempt and well developed Orientation / Consciousness: awake, oriented to person and oriented to place HEENT normocephalic, head/scalp atraumatic and moist oral mucous membranes Eyes PERRL, EOMs intact bilaterally and conjunctivae normal Neck supple, no JVD, thyroid normal and no carotid bruits General: trachea midline Resp normal respiratory effort, no retractions, no use of accessory muscles and clear to auscultation bilaterally Auscultation: Negative for rales, rhonchi or wheezes Cardio regular rate, regular rhythm, S1 normal heart sound, S2 normal heart sound, no murmurs, no rub and no gallops GI normal to inspection, nondistended, normoactive bowel sounds, soft to palpation, non-tender and non-distended Extremity no clubbing, cyanosis or edema Skin no rashes or lesions noted General Skin Exam: no breakdown Neuro CN's II-XII intact bilaterally, no focal motor deficits and no sensory deficits noted Sensorium / Orientation: awake, alert, oriented to person and oriented to place Speech: speech normal Psych Psych Narrative: Patient has blunted affect Assessment & Plan Assessment/Plan (1) Adult failure to thrive: PLAN: Plan 1. Syncope-etiology unclear, patient will be observed for any more episodes, she was seen by PT and OT today, it is unclear whether she will be able to return home or have to go back to a skilled care facility #2 acute debility-patient tells me that she does not want to return to a skilled nursing although it is documented yesterday that she was worried about returning home and requested to go to a skilled nursing for additional physical therapy. #3 bipolar disorder-complicates care, management, recovery, and prognosis #4 chronic obstructive pulmonary disease-patient will remain on budesonide aerosols as well as DuoNeb aerosols programmed, albuterol aerosols will be given as needed #5 essential hypertension-patient will remain on her present medications, blood pressure medications will be adjusted as needed #6 chronic kidney disease stage IIIb-complicates care, management, recovery, and prognosis, labs will be obtained as needed Total clinical time spent by myself addressing patient's medical issues, reviewing her data, and collaborating with patient's care team: 35 minutes Charges/Coding Visit Charges Inpatient E&M: 60414 Subs Hosp L2
[2024-01-12] MEDS: Bisacodyl 10 MG Suppository RC (14:39)
--- NOTE | 2024-01-12 17:00 | CASEMGMT ---
Care Management - Initial Assessment Face to Face with patient for initial transition planning/care coordination assessment.? 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. Patient lying in bed, alert and oriented. Patient willing to participate in assessment and is able to answer all questions appropriately.? Care providers, pharmacy, and demographics verified. 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 Per the H&P, the patient has a history of chronic kidney disease, migraines, arthritis, GERD, DAPHNE, asthma, stroke, seizure, COPD, depression, hypothyroidism, psychosis, conversion disorder, gastroparesis. Also noted in chart in past history list Bipolar Disorder and schizophrenia. PCP: Tuyet Ontiveros Specialists: Reports to need a chef's assistant; Pulmonology/Dr. Porter, Cardiology/Dr. Alarcon, Optomology/Dr. Kilgore, Pain/Dr. Woodruff. Preferred Pharmacy: [facility], delivers monthly Insurance: [employer] Medicaid Prescription Benefit:? Yes Living Will/HPOA: Does not have in place, and declined additional information currently. Reports may want to consider her friend Va as a future POAHC. Educated to decision making process for [facility] if there are no Advance Directives in place. LNOK: Reports to have 4 adult children, a daughter Scott ([phone]) and 3 sons who are all out of state. Parents live in [place]. Does have siblings. Is not . Support System: Reports main support is a friend, Va Frey, . Living Arrangements: Lives alone in apartment, 1 step to enter. Transportation: reports to use transportation through insurance and also the [facility] van. SNF Hx: reports was just that [facility] for three weeks, discharged from the nursing facility to home, passed out and admitted to the hospital on the same day. HHC: reports [facility] set patient up with [facility], but the agency has not had a chance yet to call the patient or set up a time to come out. DME: patient reports to have a standard walker, Rollator walker, comfort height commode, extended to bench, card hand, sock aid, wheelchair, and hospital bed. Reports to wear oxygen 2LNC HS, and to have a CPAP through [facility]. Reports [facility] is to be to the home on 01.14.24 to deliver adapter for O2 to bleed into the CPAP at night. Community Resources: reports to be a [facility] History:? medical record indicates patient has a history of depression, conversion disorder, psychosis. Also noted in past history list schizophrenia and bipolar disorder. Patient did not indicate any current behavioral health support in the community and in fact denied mental health to this sign writer letterer or painter. Patient goals: Currently, patient wishes to discharge home with [facility]. ? Patient would like information on local nephrology doctors. Patient is also interested in additional community resources such as medical alert, transportation and direction home area agency on aging. Patient will be 59 in the next couple weeks, which will open up potential eligibility for some additional supportive services. Note, patient reports to have upcoming appointments with primary care and pain management on Sunday, January 15, 2024. CM and SW to follow for discharge planning needs that may arise. Disposition Plan:?anticipate return home with home healthcare. Will need [facility] confirm [facility] fact [facility] patient at discharge from [facility]. Follow-up with patient prior to discharge on community resource information noted above. -CORA Polanco, PULMONARY FUNCTION TECHNICIAN *This note was generated with [employer] dictation software. It may contain incorrect words, spelling, and punctuation that were not noted in review of the chart prior to signing*
[2024-01-12] MEDS: Montelukast 10 MG Tablet PO (21:31)
[2024-01-12] MEDS: hydrOXYzine PAM 25 MG Capsule 100 MG PO (21:31)
[2024-01-12] MEDS: MELATONIN 10 MG TABLET PO (21:31)
[2024-01-12] MEDS: traZODone 100 MG Tablet PO (21:31)
[2024-01-12] MEDS: Spironolactone 25 MG Tablet PO (21:31)
[2024-01-13] VITALS (9 sets, daily range): BP systolic 95–142; BP diastolic 43–59; PULSE 62–73; RESP 16–18; TEMP 36.4–36.8; O2SAT 97–100
[2024-01-13] MEDS: Acetaminophen 325 MG Tablet PO ×2 (04:03→22:02)
[2024-01-13] MEDS: oxyCODONE 5 MG Tablet PO ×3 (04:03→22:02)
[2024-01-13] MEDS: hydrOXYzine PAM 25 MG Capsule 50 MG PO ×2 (06:27→14:24)
[2024-01-13] MEDS: Gabapentin 300 MG Capsule PO ×3 (06:27→21:58)
[2024-01-13] MEDS: hydrALAZINE 50 MG Tablet PO ×2 (06:28→14:24)
[2024-01-13] MEDS: Levothyroxine 50 MCG Tablet PO (06:28)
[2024-01-13] MEDS: Ipratropium/Albuterol Sulfate 3 ML AMPUL.NEB INHALATION ×3 (07:33→20:35)
[2024-01-13] MEDS: Budesonide Respules 0.5 MG/2 ML AMPUL.NEB. INHALATION ×2 (07:33→20:35)
[2024-01-13] MEDS: Aspirin E.C. 81 MG Tablet PO (08:47)
[2024-01-13] MEDS: ARIPiprazole 5 MG Tablet 15 MG PO (08:48)
[2024-01-13] MEDS: Carvedilol 3.125 MG TABLET PO ×2 (08:48→17:25)
[2024-01-13] MEDS: Furosemide 20 MG Tablet PO (08:49)
[2024-01-13] MEDS: Losartan Potassium 50 MG Tablet PO (08:49)
[2024-01-13] MEDS: Loratadine 10 MG Tablet PO (08:49)
[2024-01-13] MEDS: Glycerin/Hypromellose/PEG400 15 ml Bottle 1 DRP OPHTHALMIC ×2 (08:49→21:56)
[2024-01-13] MEDS: Fluticasone 0.05% 1 SPRAY NASAL.SRY NASAL ×2 (08:49→21:56)
[2024-01-13] MEDS: guaiFENesin 600 MG Tablet PO ×2 (08:50→21:58)
[2024-01-13] MEDS: Lidocaine 5% Patch 3 PATCH TOPICAL (08:50)
[2024-01-13] MEDS: Nystatin Powder 15gm Bottle 1 APPLIC TOPICAL ×2 (08:50→21:59)
[2024-01-13] MEDS: Polyethylene Glycol 3350 17 GM PACKET PO (08:50)
[2024-01-13] MEDS: Cholecalciferol (VIT D3) 25 MCG TABLET (1,000 UNITS) 50 MCG PO (08:51)
[2024-01-13] MEDS: Senna/Docusate Sodium 1 Tablet PO ×2 (08:51→21:59)
[2024-01-13] MEDS: NIFEdipine 30 MG Tablet PO ×2 (08:51→21:58)
[2024-01-13] MEDS: Cyanocobalamin 500 MCG Tablet PO (08:51)
--- NOTE | 2024-01-13 10:07 | PN.HOSP_ITS ---
Reason for Visit Reason for Visit: Diagnoses Syncope and collapse (01/11/24) Adult failure to thrive (01/11/24) Subjective Subjective Patient was seen and examined today, she does not appear to be anxious or confused today, she states she would like to go home at the time of discharge from the floor if possible, I told her it was up to how she did with PT and OT. Patient had a reddened bulged area on her lower back where she had her seroma re moved on December 17, 2023, today I attempted to drain any fluid from the area after swabbing the area with chlorhexidine swab, I used a 21-gauge needle and a 3 cc syringe to try to dry out fluid, I was unsuccessful in drawing out any fluid from the area, I did an additional stick on the same side and again I was that not able to obtain any fluid. I think it is likely that this area is a hematoma, she does not show signs of any infection, there is no fevers or chills, she does not have an elevated white blood cell count. I recommended that she follow-up with her back surgeon sooner than her scheduled appointment in February. Objective Data Objective Data Vital Signs: Vital Signs Temp Pulse Resp BP Pulse Ox O2 Del Method O2 Flow Rate 97.8 F 73 18 142/59 H 98 Room Air 2 01/13/24 08:54 01/13/24 08:54 01/13/24 08:54 01/13/24 08:54 01/13/24 08:54 01/13/24 08:55 01/13/24 03:55 Oxygen Flow Rate (L/min) 2 Oxygen Delivery Method Room Air Weight: 121.109 kg Body Mass Index (BMI) 45.8 Intake & Output: Intake and Output for Last 24 Hours 01/11/24 01/12/24 01/13/24 23:59 23:59 23:59 Intake Total 1000 / 1000 Output Total 900 / 900 475 / 475 Balance -900 / -900 525 / 525 Lab / Micro Data 01/11/24 16:10 01/11/24 16:10 Micro: Microbiology 01/12/24 00:00 Urine Catheter - Yarbrough Urine Culture - Preliminary Culture exhibits no growth. Physical Exam Narrative alert and no apparent distress Constitutional Narrative: Patient appears older than her stated age, she is morbidly obese General Appearance: cooperative, well kempt and well developed Orientation / Consciousness: awake, oriented to person and oriented to place HEENT normocephalic, head/scalp atraumatic and moist oral mucous membranes Eyes PERRL, EOMs intact bilaterally and conjunctivae normal Neck supple, no JVD, thyroid normal and no carotid bruits General: trachea midline Resp normal respiratory effort, no retractions, no use of accessory muscles and clear to auscultation bilaterally Auscultation: Negative for rales, rhonchi or wheezes Cardio regular rate, regular rhythm, S1 normal heart sound, S2 normal heart sound, no murmurs, no rub and no gallops GI normal to inspection, nondistended, normoactive bowel sounds, soft to palpation, non-tender and non-distended Extremity no clubbing, cyanosis or edema Skin There is a healing surgical incision at the midline of the patient's lumbar spine area, this area is bulged and reddened, it is not overly warm Neuro CN's II-XII intact bilaterally, no focal motor deficits and no sensory deficits noted Sensorium / Orientation: awake, alert, oriented to person and oriented to place Speech: speech normal Psych Psych Narrative: Patient has blunted affect Assessment & Plan Assessment/Plan (1) Difficulty in walking: (2) Adult failure to thrive: PLAN: Plan 1. Syncope-etiology unclear, patient will be observed for any more episodes, she was seen by PT and OT today, it is unclear whether she will be able to return home or have to go back to a skilled care facility #2 acute debility-patient tells me that she does not want to return to a custodial although it is documented yesterday that she was worried about returning home and requested to go to a custodial for additional physical therapy. Continue PT and OT. #3 bipolar disorder-complicates care, management, recovery, and prognosis #4 chronic obstructive pulmonary disease-patient will remain on budesonide aerosols as well as DuoNeb aerosols programmed, albuterol aerosols will be given as needed #5 essential hypertension-patient will remain on her present medications, blood pressure medications will be adjusted as needed #6 chronic kidney disease stage IIIb-complicates care, management, recovery, and prognosis, labs will be obtained as needed #7 seroma versus hematoma lower lumbar area at the region where her seroma was removed-again patient will need to follow-up with her surgeon concerning this. Total clinical time spent by myself addressing patient's medical issues, reviewing her data, and collaborating with patient's care team: 35 minutes Charges/Coding Visit Charges Inpatient E&M: 49534 Subs Hosp L2
[2024-01-13] MEDS: cycloBENZAPRine HCl 10 MG Tablet PO (14:23)
[2024-01-13] MEDS: Ondansetron ODT 4 MG Tablet PO (17:26)
[2024-01-13] MEDS: traZODone 100 MG Tablet PO (21:58)
[2024-01-13] MEDS: MELATONIN 10 MG TABLET PO (21:58)
[2024-01-13] MEDS: Montelukast 10 MG Tablet PO (21:58)
[2024-01-13] MEDS: hydrOXYzine PAM 25 MG Capsule 100 MG PO (21:58)
[2024-01-13] MEDS: Spironolactone 25 MG Tablet PO (21:59)
[2024-01-14] VITALS (7 sets, daily range): BP systolic 108–131; BP diastolic 49–77; PULSE 65–78; RESP 16–18; TEMP 36.4–36.8; O2SAT 93–100
[2024-01-14] MEDS: Gabapentin 300 MG Capsule PO ×2 (05:41→14:11)
[2024-01-14] MEDS: hydrALAZINE 50 MG Tablet PO (05:41)
[2024-01-14] MEDS: hydrOXYzine PAM 25 MG Capsule 50 MG PO ×2 (05:41→14:12)
[2024-01-14] MEDS: Levothyroxine 50 MCG Tablet PO (05:41)
[2024-01-14] MEDS: oxyCODONE 5 MG Tablet PO ×2 (05:44→11:34)
[2024-01-14] MEDS: Acetaminophen 325 MG Tablet PO (05:44)
[2024-01-14] MEDS: Ipratropium/Albuterol Sulfate 3 ML AMPUL.NEB INHALATION ×2 (07:09→13:08)
[2024-01-14] MEDS: Budesonide Respules 0.5 MG/2 ML AMPUL.NEB. INHALATION (07:09)
[2024-01-14] MEDS: ARIPiprazole 5 MG Tablet 15 MG PO (08:41)
[2024-01-14] MEDS: Carvedilol 3.125 MG TABLET PO (08:41)
[2024-01-14] MEDS: Cholecalciferol (VIT D3) 25 MCG TABLET (1,000 UNITS) 50 MCG PO (08:41)
[2024-01-14] MEDS: guaiFENesin 600 MG Tablet PO (08:42)
[2024-01-14] MEDS: Senna/Docusate Sodium 1 Tablet PO (08:42)
[2024-01-14] MEDS: Cyanocobalamin 500 MCG Tablet PO (08:42)
[2024-01-14] MEDS: NIFEdipine 30 MG Tablet PO (08:42)
[2024-01-14] MEDS: Furosemide 20 MG Tablet PO (08:42)
[2024-01-14] MEDS: Loratadine 10 MG Tablet PO (08:42)
[2024-01-14] MEDS: Glycerin/Hypromellose/PEG400 15 ml Bottle 1 DRP OPHTHALMIC (08:43)
[2024-01-14] MEDS: Aspirin E.C. 81 MG Tablet PO (08:43)
[2024-01-14] MEDS: Fluticasone 0.05% 1 SPRAY NASAL.SRY NASAL (08:43)
[2024-01-14] MEDS: Polyethylene Glycol 3350 17 GM PACKET PO (08:43)
[2024-01-14] MEDS: Losartan Potassium 50 MG Tablet PO (08:43)
[2024-01-14] MEDS: Nystatin Powder 15gm Bottle 1 APPLIC TOPICAL (08:44)
[2024-01-14] MEDS: Lidocaine 5% Patch 3 PATCH TOPICAL (08:44)
--- NOTE | 2024-01-14 11:14 | CASEMGMT ---
Addendum entered by Jeremiah Aguiar 01/14/24 16:24: N did not call back and they are closed as of 1600. CARLOS Domínguez assistant professor of spanish states that she will follow up with N tomorrow. Pt updated and aware with plan. JOANNA Brizuela states that she is going to provide the pt with some resources and then the pt will be cleared for DC from the SW/ CM perspective. Pt RN updated and aware. Addendum entered by Jeremiah Aguiar 01/14/24 15:26: Pt has a DC order in place. At this time, all [facility] agencies have declined. The only company that has yet to respond is [facility]. N states that they are going to call back with their decision. See CARLOS Domínguez assistant professor of spanish note. CHITRA ALLISON to pt room and pt updated on this status. Pt continues to say that she is OK with this as her friend will be able to provide the pt with support at home. Awaiting TC back from [facility] to see if they can accept the pt or not. Addendum entered by Jeremiah Aguiar 01/14/24 12:22: A Local list of in-network [facility] agencies printed from [employer] and provided to the pt. Pt states that she does not have a preference on the HH company as she just wants an accepting agency. CARLOS Domínguez assistant professor of spanish states that she will start sending referrals for the pt. Will follow. Addendum entered by Jeremiah Aguiar 01/14/24 12:02: [facility] HH returns call and Юлия states that they cannot accept the pt d/t the pt being a high risk for rehospitalization and that we are about at our capacity of [facility] pts. This RN CM to pt room and pt updated. Pt states that she would be OK with DC home with the help of her friend. Pt states that her friend is readily available to help the pt at home as the friend does not work. This RN CM updated the pt that we can provide a list of local in-network agencies for the pt to browse and the pt states that she would like this. Addendum entered by Jeremiah Aguiar 01/14/24 11:22: TC to [facility] and [facility] states the pt current home O2 order is [facility] via [place] [facility] only. Original Note: This RN CM noted that [facility] tentatively set up [facility] thru [facility] for this pt. TC to [facility] at this time. [facility] states that they were unable to accept the pt d/t being out of network with the pt insurance. This RN CM to pt room at this time regarding DC planning. Pt updated. Pt states that she is OK with this and states that she wishes to use [facility] at time of DC. Pt states that that she does have a history with [facility]. Per Angelina Costa e-mail this morning, this is a past patient of theirs. TC to [facility] for referral, no answer at this time. VM left. A local list of [employer] given to the pt per request. Awaiting return call from [facility].
--- NOTE | 2024-01-14 12:45 | CASEMGMT ---
Addendum entered by Catrachita Villeda 01/14/24 14:38: [facility] declined. Catrachita Villeda, Discharge Planning Asst. Addendum entered by Catrachita Villeda 01/14/24 13:35: [facility], [facility], [facility], [facility], [facility], [facility], [facility], and [facility] have declined referral. Catrachita Villeda, Discharge Planning Original Note: Discharge Planning HH referral sent to [facility], [facility], [facility], [facility], [facility], [facility], [facility], [facility], and [facility]. Catrachita Villeda, Discharge Planning Asst.
[2024-01-14] MEDS: Mag Hydrox/Al Hydrox/Simeth 30 ML UDC 5 ML PO (14:15)
--- NOTE | 2024-01-14 15:10 | DCINST_ITS ---
Discharge Instructions Diet Discharge Diet: Low fat / Low cholesterol Activity Discharge Activity: Return to Normal Activity Weight Bearing Status: Weight bearing as tolerated Dressing / Incision Call your doctor if you observe: Fever of 101 or Higher, Shortness of breath, Dizziness, Swelling in the ankles, Chest pain and Increased palpitations (irregular heartbeat) Follow Up Care Test Results: Test results from this visit will be discussed in further detail at your follow- up appointment, if applicable. Discharge Plan Admission Admit Date/Time: 01/11/24 18:17 Primary Reason for Your Visit: syncope, hypotension Attending Provider: Jessica Barron Primary Care Provider: Elizabeth Santamaria Consulting Providers: Facundo Jameson; Charli Simmons Instructions Patient Instructions: Hypotension Dc Additional Instructions / Restrictions: encouraged to remain well hydrated. Discharge Orders/Prescriptions Prescriptions: Continued hydroxyzine HCl 10 mg tablet 100 mg PO QHS bisacodyl 10 mg suppository 10 mg AR DAILY PRN (Reason: constipatio) aluminum-magnesium hydroxide 225-200 mg/5 mL suspension 5 ml PO Q4H PRN acetaminophen 325 mg capsule 325 mg PO Q4H PRN (Reason: pain) cetirizine 10 mg tablet 10 mg PO DAILY cyclobenzaprine 10 mg tablet 10 mg PO Q8H PRN (Reason: spasms) gabapentin 300 mg capsule 300 mg PO TID methocarbamol 750 mg tablet 750 mg PO Q8H PRN (Reason: pain) magnesium hydroxide [Milk of Magnesia] 400 mg/5 mL suspension 30 ml PO DAILY PRN (Reason: constipation) sennosides-docusate sodium [Senna with Docusate Sodium] 8.6-50 mg tablet 1 tab-cap PO BID cyanocobalamin (vitamin B-12) 500 mcg tablet 500 mcg PO DAILY cholecalciferol (vitamin D3) 50 mcg (2,000 unit) capsule 50 mcg PO DAILY mometasone 100 mcg/actuation HFA aerosol inhaler 2 puff inhalation BID oxycodone 5 mg tablet 5 - 10 mg PO Q6H PRN (Reason: pain) 3 Days Qty: 12 0RF losartan 50 mg tablet 50 mg PO DAILY hydroxyzine HCl 50 mg tablet 50 mg PO BID aripiprazole 15 mg tablet 15 mg PO DAILY trazodone 100 mg tablet 100 mg PO QHS furosemide 20 mg tablet 20 mg PO DAILY carvedilol 3.125 mg tablet 3.125 mg PO BID carboxymethylcellulose sodium 0.5 % drops 1 drp ophthalmic (eye) BID aspirin 81 mg tablet,delayed release (DR/EC) 81 mg PO DAILY budesonide-formoterol [Symbicort] 160-4.5 mcg/actuation HFA aerosol inhaler 2 puff inhalation DAILY levothyroxine 50 mcg tablet 50 mcg PO DAILY Rx Instructions: TAKE 1 TABLET BY MOUTH DAILY FOR THYROID lidocaine 5 % adhesive patch,medicated 3 patch topical Q24H Rx Instructions: APPLY ONE PATCH TO PAINFUL AREA FOR UP TO 12 HOURS, THEN REMOVE FOR 12 HOURS polyethylene glycol 3350 [Miralax] 17 gram/dose powder 17 g PO DAILY fluticasone propionate 50 mcg/actuation spray,suspension 1 spray intranasal Q12H Rx Instructions: USE 1 SPRAY IN EACH NOSTRIL TWICE A DAY FOR ALLERGIES loratadine 10 mg tablet 10 mg PO Q24H Rx Instructions: TAKE 1 TABLET BY MOUTH DAILY FOR ALLERGIES Spiriva Respimat 1.25 mcg/actuation mist 2 inh inhalation Q24H PRN (Reason: asthma) Rx Instructions: INHALE 2 PUFFS BY MOUTH DAILY ondansetron 4 mg tablet,disintegrating 4 mg PO Q8H PRN (Reason: nausea and vomiting) Qty: 60 1RF nitroglycerin 0.4 mg tablet, sublingual 0.4 mg SUBLINGUAL PRN PRN (Reason: CHEST PAIN) Qty: 25 3RF montelukast [Singulair] 10 mg tablet 10 mg PO QHS Qty: 30 5RF melatonin 10 mg capsule 10 mg PO QHS Qty: 90 0RF guaifenesin 1,200 mg tablet extended release 12hr 600 mg PO BID Qty: 60 2RF albuterol sulfate 90 mcg/actuation HFA aerosol inhaler 2 puff inhalation Q4H PRN (Reason: shortness of breath or wheezing) Qty: 8.5 6RF Rx Instructions: administer with spacer Discontinued nifedipine 60 mg tablet extended release 30 mg PO BID hydralazine 100 mg tablet 50 mg PO TID spironolactone 25 mg tablet 25 mg PO QHS Rx Instructions: TAKE 1 TABLET BY MOUTH AT BEDTIME FOR BLOOD PRESSURE Referrals / Follow Up: Elizabeth Santamaria MD [Primary Care Provider] - Within 1 Week Disposition Disposition (needs filled in before D/C Order can be placed): Home, Self Care
--- NOTE | 2024-01-14 15:13 | PCM.DC.SUM ---
Providers Date of Admission: 01/11/24 Date of Discharge: 01/14/24 Primary Care Physician: Dr. Elizabeth Santamaria MD Reason For Visit: SYNCOPE Diagnosis Discharge Diagnosis (1) Difficulty in walking: Status: Acute Code(s): R26.2 - Difficulty in walking, not elsewhere classified (2) Adult failure to thrive: Status: Acute Code(s): R62.7 - Adult failure to thrive Medications at Discharge Home Medications hydroxyzine HCl 10 mg tablet 100 mg PO QHS anxiety 11/27/22 ondansetron 4 mg disintegrating tablet 4 mg PO Q8H PRN nausea and vomiting #60 tabs 04/30/23 nitroglycerin 0.4 mg sublingual tablet 0.4 mg sublingual PRN PRN CHEST PAIN #25 tabs 07/09/23 montelukast 10 mg tablet (Singulair) 10 mg PO QHS allergies #30 tabs 07/30/23 melatonin 10 mg capsule 10 mg PO QHS insomnia #90 caps 10/18/23 guaifenesin 1,200 mg tablet, extended release 12 hr 600 mg (1/2 x 1,200 mg) PO BID allergies #60 tabs 12/12/23 oxycodone 5 mg tablet 5 - 10 mg (1 - 2 x 5 mg) PO Q6H PRN pain 3 days #12 tabs 12/25/23 acetaminophen 325 mg capsule 325 mg PO Q4H PRN pain 01/04/24 aluminum-magnesium hydroxide 225 mg-200 mg/5 mL oral suspension 5 ml PO Q4H PRN constipation 01/04/24 bisacodyl 10 mg rectal suppository 10 mg NH DAILY PRN constipatio 01/04/24 cetirizine 10 mg tablet 10 mg PO DAILY allergies 01/04/24 cholecalciferol (vitamin D3) 50 mcg (2,000 unit) capsule 50 mcg PO DAILY vit 01/04/24 cyanocobalamin (vitamin B-12) 500 mcg tablet 500 mcg PO DAILY vit 01/04/24 cyclobenzaprine 10 mg tablet 10 mg PO Q8H PRN spasms 01/04/24 gabapentin 300 mg capsule 300 mg PO TID nerve 01/04/24 magnesium hydroxide 400 mg/5 mL oral suspension (Milk of Magnesia) 30 ml PO DAILY PRN constipation 01/04/24 methocarbamol 750 mg tablet 750 mg PO Q8H PRN pain 01/04/24 mometasone 100 mcg/actuation HFA aerosol inhaler 2 puff inhalation BID c 01/04/24 sennosides 8.6 mg-docusate sodium 50 mg tablet (Senna with Docusate Sodium) 1 tab-cap PO BID constipation 01/04/24 albuterol sulfate 90 mcg/actuation aerosol inhaler 2 puff inhalation Q4H PRN shortness of breath or wheezing #8.5 grams 01/11/24 aripiprazole 15 mg tablet 15 mg PO DAILY bipolar 01/11/24 aspirin 81 mg tablet,delayed release 81 mg PO DAILY hear 01/11/24 budesonide-formoterol HFA 160 mcg-4.5 mcg/actuation aerosol inhaler (Symbicort) 2 puff inhalation DAILY asthma 01/11/24 carboxymethylcellulose sodium 0.5 % eye drops 1 drp ophthalmic (eye) BID eyes 01/11/24 carvedilol 3.125 mg tablet 3.125 mg PO BID bp 01/11/24 fluticasone propionate 50 mcg/actuation nasal spray,suspension 1 spray intranasal Q12H allergies 01/11/24 furosemide 20 mg tablet 20 mg PO DAILY bp 01/11/24 hydroxyzine HCl 50 mg tablet 50 mg PO BID anxiety 01/11/24 levothyroxine 50 mcg tablet 50 mcg PO DAILY thyr 01/11/24 lidocaine 5 % topical patch 3 patch topical Q24H pain 01/11/24 loratadine 10 mg tablet 10 mg PO Q24H allergies 01/11/24 losartan 50 mg tablet 50 mg PO DAILY bp 01/11/24 polyethylene glycol 3350 17 gram/dose oral powder (Miralax) 17 g PO DAILY Constipation 01/11/24 tiotropium bromide 1.25 mcg/actuation mist for inhalation (Spiriva Respimat) 2 inh inhalation Q24H PRN asthma 01/11/24 trazodone 100 mg tablet 100 mg PO QHS sleep 01/11/24 Hospital Course Operations None Procedures None Summary of Care Provided Minutes Spent on Discharge: 55 Hospital Course: Patient is a 58-year-old female with past medical history as outlined was admitted through the ED on 01/11/2024 with a complaint of syncope. Early in the morning of admission she was discharged from a longterm facility where she had been for rehab after she had back surgery to remove the cyst. After she went home, in the early afternoon she was getting out of bed and got nauseated and. Like she was on the floor. She does not think she hit her head. X-ray of her back which was done in light of her recent surgery showed that she had a seroma. She was admitted and managed for debility due to mechanical fall. Patient did work with PT OT and did well. Patient was initially wanting to go to a longterm facility but subsequently changed her mind and insisted on going home. She also worked with therapy and says she did quite well and felt that she was ready to go home. Patient remained stable and was discharged home on 01/14/2024. She is follow-up with her primary care doctor within 1 to 2 weeks. Of note patient did states that she had not been eating or drinking enough and she had had previous instances where her blood pressure had dropped and she had fallen down. She therefore thought that was similar issue in this case. Patient was on a bunch of blood pressure medications so her medications were adjusted as follows; and nifedipine 30 mg twice daily as well as hydralazine 50 mg 3 times daily and spironolactone 25 mg nightly were discontinued. She was continued on her losartan 50 mg daily, carvedilol 3.125 mg daily and Lasix 20 mg daily. She is to follow-up with her primary care doctor within 1 week for monitoring of her blood pressure medication and for adjustments as needed. Patient seen and examined prior to discharge. She had no active complaints and had an uneventful night. Review of systems otherwise negative. Labs and vitals reviewed. Home medication reviewed and reconciled. Physical Exam Const alert, oriented x3, no apparent distress and average body habitus General Appearance: cooperative, comfortable and well kempt Orientation / Consciousness: awake Exam Limitations: no limitations HEENT normocephalic, head/scalp atraumatic, hearing grossly normal bilaterally, moist oral mucous membranes and oropharynx normal Mouth: oral and palatal mucosa normal Eyes PERRL, EOMs intact bilaterally and conjunctivae normal Neck no lymphadenopathy and supple Resp normal respiratory effort, no retractions, no use of accessory muscles and clear to auscultation bilaterally Cardio regular rate, regular rhythm, S1 normal heart sound, S2 normal heart sound and no murmurs GI normal to inspection, nondistended, normoactive bowel sounds, soft to palpation and non-tender Extremity normal to inspection, full ROM and no clubbing, cyanosis or edema Skin no rashes or lesions noted Neuro oriented x3, CN's II-XII intact bilaterally, moves all extremities, no focal motor deficits and no sensory deficits noted Sensorium / Orientation: awake Motor Exam: strength 5/5 throughout Psych affect normal Weight / BMI Weight Weight: 267 lb Body Mass Index (BMI) 45.8 ABG / Lab / Microbiology Data 01/11/24 16:10 01/11/24 16:10 Microbiology: Microbiology 01/12/24 00:00 Urine Catheter - [place] Urine Culture - Final Culture exhibits no growth. D/C Instructions Discharge Diet: Low fat / Low cholesterol Discharge Activity: Return to Normal Activity Weight Bearing Status: Weight bearing as tolerated Call your doctor if you observe: Fever of 101 or Higher, Shortness of breath, Dizziness, Swelling in the ankles, Chest pain and Increased palpitations (irregular heartbeat) Meaningful Use Info Meaningful Use Diagnoses (Choose all that apply): None applicable Discharge Plan Admission Admit Date/Time: 01/11/24 18:17 Primary Reason for Your Visit: syncope, hypotension Attending Provider: Jessica Barron Primary Care Provider: Elizabeth Santamaria Consulting Providers: Facundo Jameson; Charli Simmons Instructions Patient Instructions: Hypotension Dc Additional Instructions / Restrictions: encouraged to remain well hydrated. Discharge Orders/Prescriptions Prescriptions: Continued hydroxyzine HCl 10 mg tablet 100 mg PO QHS bisacodyl 10 mg suppository 10 mg NH DAILY PRN (Reason: constipatio) aluminum-magnesium hydroxide 225-200 mg/5 mL suspension 5 ml PO Q4H PRN acetaminophen 325 mg capsule 325 mg PO Q4H PRN (Reason: pain) cetirizine 10 mg tablet 10 mg PO DAILY cyclobenzaprine 10 mg tablet 10 mg PO Q8H PRN (Reason: spasms) gabapentin 300 mg capsule 300 mg PO TID methocarbamol 750 mg tablet 750 mg PO Q8H PRN (Reason: pain) magnesium hydroxide [Milk of Magnesia] 400 mg/5 mL suspension 30 ml PO DAILY PRN (Reason: constipation) sennosides-docusate sodium [Senna with Docusate Sodium] 8.6-50 mg tablet 1 tab-cap PO BID cyanocobalamin (vitamin B-12) 500 mcg tablet 500 mcg PO DAILY cholecalciferol (vitamin D3) 50 mcg (2,000 unit) capsule 50 mcg PO DAILY mometasone 100 mcg/actuation HFA aerosol inhaler 2 puff inhalation BID oxycodone 5 mg tablet 5 - 10 mg PO Q6H PRN (Reason: pain) 3 Days Qty: 12 0RF losartan 50 mg tablet 50 mg PO DAILY hydroxyzine HCl 50 mg tablet 50 mg PO BID aripiprazole 15 mg tablet 15 mg PO DAILY trazodone 100 mg tablet 100 mg PO QHS furosemide 20 mg tablet 20 mg PO DAILY carvedilol 3.125 mg tablet 3.125 mg PO BID carboxymethylcellulose sodium 0.5 % drops 1 drp ophthalmic (eye) BID aspirin 81 mg tablet,delayed release (DR/EC) 81 mg PO DAILY budesonide-formoterol [Symbicort] 160-4.5 mcg/actuation HFA aerosol inhaler 2 puff inhalation DAILY levothyroxine 50 mcg tablet 50 mcg PO DAILY Rx Instructions: TAKE 1 TABLET BY MOUTH DAILY FOR THYROID lidocaine 5 % adhesive patch,medicated 3 patch topical Q24H Rx Instructions: APPLY ONE PATCH TO PAINFUL AREA FOR UP TO 12 HOURS, THEN REMOVE FOR 12 HOURS polyethylene glycol 3350 [Miralax] 17 gram/dose powder 17 g PO DAILY fluticasone propionate 50 mcg/actuation spray,suspension 1 spray intranasal Q12H Rx Instructions: USE 1 SPRAY IN EACH NOSTRIL TWICE A DAY FOR ALLERGIES loratadine 10 mg tablet 10 mg PO Q24H Rx Instructions: TAKE 1 TABLET BY MOUTH DAILY FOR ALLERGIES Spiriva Respimat 1.25 mcg/actuation mist 2 inh inhalation Q24H PRN (Reason: asthma) Rx Instructions: INHALE 2 PUFFS BY MOUTH DAILY ondansetron 4 mg tablet,disintegrating 4 mg PO Q8H PRN (Reason: nausea and vomiting) Qty: 60 1RF nitroglycerin 0.4 mg tablet, sublingual 0.4 mg SUBLINGUAL PRN PRN (Reason: CHEST PAIN) Qty: 25 3RF montelukast [Singulair] 10 mg tablet 10 mg PO QHS Qty: 30 5RF melatonin 10 mg capsule 10 mg PO QHS Qty: 90 0RF guaifenesin 1,200 mg tablet extended release 12hr 600 mg PO BID Qty: 60 2RF albuterol sulfate 90 mcg/actuation HFA aerosol inhaler 2 puff inhalation Q4H PRN (Reason: shortness of breath or wheezing) Qty: 8.5 6RF Rx Instructions: administer with spacer Discontinued nifedipine 60 mg tablet extended release 30 mg PO BID hydralazine 100 mg tablet 50 mg PO TID spironolactone 25 mg tablet 25 mg PO QHS Rx Instructions: TAKE 1 TABLET BY MOUTH AT BEDTIME FOR BLOOD PRESSURE Referrals / Follow Up: Elizabeth Santamaria MD [Primary Care Provider] - Within 1 Week Disposition Disposition (needs filled in before D/C Order can be placed): Home, Self Care Charges/Coding Visit Charges Inpatient E&M: 51826 Disch Hosp >30min
--- NOTE | 2024-01-14 16:37 | CASEMGMT ---
Social Work SW provided pt with resources including [employer], [facility] Home and Medical Alert. Pt appreciative of information and denies further needs. Jemima MARTINEZ
== END 2024-01-14 17:10 | disposition home or self-care (01) ==
LOC: ED 18:07 → MS3 01-12 07:32
PROVIDERS: Nurse Practitioner; Emergency Provider Emergency Medicine; PCP Internal Medicine; Visit Provider Student in an Organized Health Care Education/Training Program
DX: R55 Syncope and collapse (principal); I13.0 Hypertensive heart and chronic kidney disease with heart failure and stage 1 through stage 4 chronic kidney disease, or unspecified chronic kidney disease; I50.9 Heart failure, unspecified; F31.9 Bipolar disorder, unspecified; J44.9 Chronic obstructive pulmonary disease, unspecified; E11.22 Type 2 diabetes mellitus with diabetic chronic kidney disease; E11.43 Type 2 diabetes mellitus with diabetic autonomic (poly)neuropathy; E11.51 Type 2 diabetes mellitus with diabetic peripheral angiopathy without gangrene; N18.32 Chronic kidney disease, stage 3b; S70.00XA Contusion of unspecified hip, initial encounter; K21.9 Gastro-esophageal reflux disease without esophagitis; F17.210 Nicotine dependence, cigarettes, uncomplicated; E78.00 Pure hypercholesterolemia, unspecified; S20.229A Contusion of unspecified back wall of thorax, initial encounter; E66.9 Obesity, unspecified; G89.29 Other chronic pain; R62.7 Adult failure to thrive; R53.81 Other malaise; R26.2 Difficulty in walking, not elsewhere classified; Z79.899 Other long term (current) drug therapy
CPT/HCPCS: 72125; 72128; 72131; 73502; 80048; 81001; 84484; 85025; 87086; 93005; 94640; 96360; 96361; 97116; 97163; 97167; 97530; 99221; 99283; J7030; G0378

== ENCOUNTER → 2024-01-22 | Outpatient (CLI) | payer MEDICAID, SELFPAY ==
[2024-01-22 12:12] LABS: Bacteria 0 SEEN /hpf (None Seen); Mucous, Urine 0 SEEN /hpf (<or=2+); Red Blood Cells-Urine 0 SEEN /hpf (0-5); White Blood Cells 0 SEEN /hpf (0-5)
[2024-01-22 15:26] LABS: Color, Urine Yellow (Yellow); Glucose, Dipstick Normal (Normal); Ketone-Dipstick Negative (Negative); Leukocyte Esterase-Dipstick Negative /ul (Negative); Nitrite-Dipstick Negative (Negative); Occult Blood-Urine Negative /ul (Negative); Protein-Dipstick Negative (Negative); Specific Gravity, Urine 1.015 (1.002-1.030); Urine Bilirubin Dipstick Negative (Negative); Urine Clarity Clear (Clear); Urine Urobilinogen Normal (Normal)
[2024-01-22 15:40] LABS: Squamous Epithelial Cells - UA 0-5 SEEN /hpf (5-10)
[2024-01-22 16:30] LABS: Anion Gap 7 (5-15); BUN 13 mg/dL (7-18); BUN/Creat Ratio 11.1 RATIO (10-20); Calcium,Total 8.9 mg/dL (8.5-10.1); Chloride 107 mmol/L (98-107); Creatinine, Serum 1.17 mg/dL (0.55-1.02); EST Glomerular Filtration Rate 50 mL/min (>60); Est Glom Filt Rate - Afr Amer 61 mL/min (>60); Glucose 102 mg/dL (74-106); Sodium Level 135 mmol/L (136-145)
== END | disposition home or self-care (01) ==
LOC: BIMLAB 12:11
PROVIDERS: PCP Internal Medicine; Visit Provider Internal Medicine
DX: I10 Essential (primary) hypertension (principal); R10.9 Unspecified abdominal pain; G89.29 Other chronic pain
CPT/HCPCS: 36415; 80048; 81001

== ENCOUNTER 2024-01-25 10:13 | Emergency (ER) | payer MEDICAID, SELFPAY ==
[2024-01-25 10:13] VITALS: BP 178/81; PULSE 70; RESP 14; TEMP 35.6; O2SAT 95
--- NOTE | 2024-01-25 10:39 | VDLE_ITS ---
Reason For Study: Bilateral leg swelling RIGHT LEFT GSV is normal. GSV is normal. CFV is compressible, spontaneous, phasic, CFV is compressible, spontaneous, phasic, competent and demonstrates normal competent, and demonstrates normal augmentation. augmentation. FV is compressible, spontaneous, phasic, FV is compressible, spontaneous, phasic, competent and demonstrates normal competent and demonstrates normal augmentation. augmentation. POP V is compressible, spontaneous, phasic, POP V is compressible, spontaneous, phasic, competent and demonstrates normal competent and demonstrates normal augmentation. augmentation. T/P Trunk is compressible. T/P Trunk is compressible. PTV is compressible. PTV is compressible. RT PerV is compressible. LT PerV is compressible. Procedure This is a venous duplex using B-mode, color flow and spectral Doppler. Exam performed in department. A preliminary report was called and/or faxed to Dr. Donovan. VL/Venous Duplex US - Tayo Extrem Interpretation Summary Deep veins of the lower extremities are bilaterally patent and compressible seg mentally. There is no evidence of deep vein thrombosis on either side. Valvular competence appears in tact within the proximal deep venous systems bilaterally. The great saphenous veins appear bila terally patent and compressible segmentally. Ordering Physician: Bia Donovan Referring Physician: Elizaebth Santamaria Performed By: Kathrine Calhoun RVT
--- NOTE | 2024-01-25 10:44 | EDS_ITS ---
HPI History of Present Illness Chief Complaint: Edema Informant: patient Onset/Context/Timing Onset: Days (4 days) Narrative Narrative: Patient presents swelling to the bilateral lower extremities. She states she n oted the symptoms on Sunday evening. She saw her doctor on Sunday and states that her legs were fine at that time. She does report a history of blood clots and is no longer on blood thinners. She did have back surgery on December 16. She also states that she feels distended up through her abdomen. She also reports a history of congestive heart failure and states that she is on a diuretic, but h as not noted significant urine output. [facility] Medical History Abdominal pain Adult failure to thrive Allergic rhinitis Aortic valve insufficiency Arthralgia of right hip Arthritis Asthma Back contusion Back pain Bilateral flank pain Bilateral foot pain Bipolar 1 disorder Bipolar disorder Blackout Bladder disease Cancer Cardiology follow-up encounter Chest pain Chronic cough CKD (chronic kidney disease) Colitis Contusion of hip Conversion disorder with abnormal movement Convulsion, non-epileptic COPD, mild COVID-19 virus infection CPAP (continuous positive airway pressure) dependence Cyclic vomiting syndrome Cyst Debility Degenerative tear of meniscus of left knee Depression Diarrhea Dietary restriction Difficulty chewing Difficulty in walking Disease of gingiva due to infection Dysuria Easy bruising Enchondroma of left humerus Enlarged aorta Excessive bleeding Family history of colon cancer Gastric reflux Gastritis Heart failure High cholesterol Hip dislocation, right History of abnormal cervical Pap smear History of atrial fibrillation History of CHF (congestive heart failure) History of echocardiogram History of edema History of hiatal hernia History of Holter monitoring History of IBS History of renal disease History of skin cancer History of steroid therapy History of stress test History of ulceration HTN (hypertension) Hx of tilt table evaluation Hypertensive crisis without congestive heart failure Hypokalemia Hyponatremia Hypothyroidism Impingement of left shoulder Injury of head and neck Intertriginous dermatitis associated with moisture Kidney disease Left arm swelling Leg cramps Loss of hearing Marijuana use Migraines Morbid obesity Myositis Non-convulsive status epilepticus Non-rheumatic mitral regurgitation Nonrheumatic aortic (valve) insufficiency Open wound Oral candidiasis Orthostatic hypotension DAPHNE (obstructive sleep apnea) Osteoarthritis Osteoarthritis of left knee Osteoarthritis of right hip PAF (paroxysmal atrial fibrillation) Pain of left calf Peripheral artery disease Post-menopausal Psychosis Pulmonary embolism Restless legs Sarcoidosis Schizo NEC, chrn/exacerb Schizophrenia Seizures Shortness of breath on exertion Sleep apnea Smoker Stroke Stroke/cerebrovascular accident Syncope Thyroid disease TIA (transient ischemic attack) Venous insufficiency of both lower extremities Walker as ambulation aid Wears dentures Wears glasses Home Medications hydroxyzine HCl 10 mg tablet 100 mg PO QHS anxiety 11/27/22 [History Last Taken 06/25/23] ondansetron 4 mg disintegrating tablet 4 mg PO Q8H PRN nausea and vomiting #60 tabs 04/30/23 [Rx Last Taken Unknown] nitroglycerin 0.4 mg sublingual tablet 0.4 mg sublingual PRN PRN CHEST PAIN #25 tabs 07/09/23 [Rx Last Taken Unknown] montelukast 10 mg tablet (Singulair) 10 mg PO QHS allergies #30 tabs 07/30/23 [R x Last Taken Unknown] melatonin 10 mg capsule 10 mg PO QHS insomnia #90 caps 10/18/23 [Rx Last Taken Unknown] guaifenesin 1,200 mg tablet, extended release 12 hr 600 mg (1/2 x 1,200 mg) PO BID allergies #60 tabs 12/12/23 [Rx Last Taken Unknown] oxycodone 5 mg tablet 5 - 10 mg (1 - 2 x 5 mg) PO Q6H PRN pain 3 days #12 tabs 12/25/23 [Rx Last Taken Unknown] acetaminophen 325 mg capsule 325 mg PO Q4H PRN pain 01/04/24 [History Last Taken Unknown] aluminum-magnesium hydroxide 225 mg-200 mg/5 mL oral suspension 5 ml PO Q4H PRN constipation 01/04/24 [History Last Taken Unknown] bisacodyl 10 mg rectal suppository 10 mg OH DAILY PRN constipatio 01/04/24 [History Last Taken Unknown] cetirizine 10 mg tablet 10 mg PO DAILY allergies 01/04/24 [History Last Taken Unknown] cholecalciferol (vitamin D3) 50 mcg (2,000 unit) capsule 50 mcg PO DAILY vit 01/04/24 [History Last Taken Unknown] cyanocobalamin (vitamin B-12) 500 mcg tablet 500 mcg PO DAILY vit 01/04/24 [History Last Taken Unknown] cyclobenzaprine 10 mg tablet 10 mg PO Q8H PRN spasms 01/04/24 [History Last Taken Unknown] gabapentin 300 mg capsule 300 mg PO TID nerve 01/04/24 [History Last Taken Unknown] magnesium hydroxide 400 mg/5 mL oral suspension (Milk of Magnesia) 30 ml PO DAILY PRN constipation 01/04/24 [History Last Taken Unknown] methocarbamol 750 mg tablet 750 mg PO Q8H PRN pain 01/04/24 [History Last Taken Unknown] mometasone 100 mcg/actuation HFA aerosol inhaler 2 puff inhalation BID c 01/04/24 [History Last Taken Unknown] sennosides 8.6 mg-docusate sodium 50 mg tablet (Senna with Docusate Sodium) 1 tab-cap PO BID constipation 01/04/24 [History Last Taken Unknown] albuterol sulfate 90 mcg/actuation aerosol inhaler 2 puff inhalation Q4H PRN shortness of breath or wheezing #8.5 grams 01/11/24 [Rx Last Taken Unknown] aripiprazole 15 mg tablet 15 mg PO DAILY bipolar 01/11/24 [History Last Taken Unknown] aspirin 81 mg tablet,delayed release 81 mg PO DAILY hear 01/11/24 [History Last Taken Unknown] budesonide-formoterol HFA 160 mcg-4.5 mcg/actuation aerosol inhaler (Symbicort) 2 puff inhalation DAILY asthma 01/11/24 [History Last Taken Unknown] carboxymethylcellulose sodium 0.5 % eye drops 1 drp ophthalmic (eye) BID eyes 01/11/24 [History Last Taken Unknown] carvedilol 3.125 mg tablet 3.125 mg PO BID bp 01/11/24 [History Last Taken Unknown] fluticasone propionate 50 mcg/actuation nasal spray,suspension 1 spray intranasal Q12H allergies 01/11/24 [History Last Taken Unknown] furosemide 20 mg tablet 20 mg PO DAILY bp 01/11/24 [History Last Taken Unknown] hydroxyzine HCl 50 mg tablet 50 mg PO BID anxiety 01/11/24 [History Last Taken Unknown] levothyroxine 50 mcg tablet 50 mcg PO DAILY thyr 01/11/24 [History Last Taken Unknown] lidocaine 5 % topical patch 3 patch topical Q24H pain 01/11/24 [History Last Taken Unknown] loratadine 10 mg tablet 10 mg PO Q24H allergies 01/11/24 [History Last Taken Unknown] losartan 50 mg tablet 50 mg PO DAILY bp 01/11/24 [History Last Taken Unknown] tiotropium bromide 1.25 mcg/actuation mist for inhalation (Spiriva Respimat) 2 inh inhalation Q24H PRN asthma 01/11/24 [History Last Taken Unknown] trazodone 100 mg tablet 100 mg PO QHS sleep 01/11/24 [History Last Taken Unkn own] esomeprazole magnesium 20 mg capsule,delayed release (Nexium) 20 mg PO DAILY 01/22/24 [History Last Taken Unknown] polyethylene glycol 3350 17 gram/dose oral powder (Miralax) 17 g PO DAILY Consti pation #119 grams 01/22/24 [Rx Last Taken Unknown] furosemide 40 mg tablet (Lasix) 40 mg PO DAILY #4 tabs 01/25/24 [Rx Last Taken Unknown] spironolactone 25 mg tablet 25 mg PO 01/25/24 [History Last Taken Unknown] Allergy/AdvReac Type Severity Reaction Status Date / Time adhesive tape Allergy Rash Verified 01/25/24 10:14 atropine sulfate Allergy Hives Verified 01/25/24 10:14 [From ] codeine phosphate Allergy breathing Verified 01/25/24 10:14 [From Tylenol-Codeine #3] problems divalproex sodium Allergy Unknown Verified 01/25/24 10:14 [From Depakote] guaifenesin Allergy Itching Verified 01/25/24 10:14 hydrocodone Allergy Itching Verified 01/25/24 10:14 hydromorphone HCl Allergy facial Verified 01/25/24 10:14 [From Dilaudid] blisters,itching hyoscyamine sulfate Allergy Hives Verified 01/25/24 10:14 [From ] Iodinated Contrast Media Allergy breathing Verified 01/25/24 10:14 [Iodinated Contrast Media - problems IV Dye] and my bp went up latex Allergy Rash Verified 01/25/24 10:14 pantoprazole sodium Allergy Rash Verified 01/25/24 10:14 [From Protonix] phenobarbital [From ] Allergy Hives Verified 01/25/24 10:14 promethazine HCl Allergy Anaphylaxis Verified 01/25/24 10:14 [From Phenergan] ramipril Allergy Unknown Verified 01/25/24 10:14 scopolamine hydrobromide Allergy Hives Verified 01/25/24 10:14 [From ] tramadol Allergy Itching Verified 01/25/24 10:14 ziprasidone mesylate Allergy Unknown Verified 01/25/24 10:14 [From Geodon] amlodipine AdvReac Vomiting Verified 01/25/24 10:14 levofloxacin [From Levaquin] AdvReac Itching Verified 01/25/24 10:14 metoclopramide [From Reglan] AdvReac Other Verified 01/25/24 10:14 Sulfa (Sulfonamide AdvReac Vomiting Verified 01/25/24 10:14 Antibiotics) ziprasidone HCl [From Geodon] AdvReac tremors Verified 01/25/24 10:14 Family History Sister Myocardial infarction Colon cancer Mother Hypertension Arthritis Brain aneurysm Heart disease High cholesterol Sister Colon cancer Heart disease High cholesterol Hypertension Arthritis Grandmother Arthritis Diabetes CVA (cerebral vascular accident) Father Heart disease High cholesterol Hypertension Surgical History bladder sling Cataract extraction status History of back surgery History of esophagogastroduodenoscopy (EGD) History of laparoscopic cholecystectomy History of uterine suspension procedure Hx of colonoscopy left foot Previous back surgery S/P carpal tunnel release Social History household members: none number of children: 4 current occupational status: unemployed history of recent travel: No Smoking Status: Former smoker quit date: 11/12/23 Tobacco: How many years used: 26 Electronic Cigarette Use: not used quit status: considering quitting alcohol intake: never substance use type: does not use caffeine: Yes Type: coffee what type of physical activity do you participate in: none seatbelt use: never do you feel safe at home: Yes additional social history: single ROS ROS ED Constitutional Constitutional ED: Denies chills or fever(s) Eyes Eyes: Denies discharge from eye(s) ENT ENT ED: Denies discharge from eye(s), rhinorrhea or sore throat Cardiovascular Cardiovascular: Reports other Details: Bilateral lower extremity edema ; Denies chest pain or palpitations Respiratory/Chest Respiratory/Chest: Denies cough or dyspnea Gastrointestinal Gastrointestinal: Reports other Details: Abdominal distention ; Denies abdominal pain, diarrhea, nausea or vomiting Genitourinary Genitourinary ED: Denies difficulty urinating or dysuria Musculoskeletal Musculoskeletal: Reports extremity pain; Denies back pain Integumentary Denies Abrasions or rash Neurologic Neurologic: Denies headache(s) or weakness Psychiatric Psychiatric: Denies anxiety or depression Allergic/Immunologic Allergic/Immunologic ED: Denies lip swelling or urticaria EXAM Physical Exam Const Vital Signs: 01/25/24 10:13 Temperature 96.1 F L Temperature Source Temporal Pulse Rate 70 Respiratory Rate 14 Blood Pressure 178/81 H Blood Pressure Mean 113 Pulse Ox 95 Oxygen Delivery Method Room Air Positive well nourished and well developed General Appearance ED: well developed HEENT Reports moist mucous membranes Eyes EOMs intact bilaterally Chest Wall inspection of chest normal and palpation of chest normal Resp normal respiratory effort and clear to auscultation bilaterally Cardio regular rate and regular rhythm GI non-tender GI Narrative: Abdomen soft but slightly distended. No focal tenderness. Extremity Extremity Narrative: 4+ edema noted bilateral lower extremities. Neuro oriented x3 Psych mental status grossly normal MDM MDM MDM Narrative Medical decision making narrative: IV line established. Labwork obtained to evaluate for leukocytosis, anemia, and electrolyte derangement. Venous ultrasound of the lower extremities will be obtained to evaluate for potential DVT given her history of similar with recent surgery. History & Record Review Discussion w/independent historian: Patient Lab Data Attestation: I reviewed the patient's lab results. Labs: Laboratory Results - last 24 hr 01/25/24 10:30 WBC 6.3 RBC 4.08 L Hgb 12.0 Hct 37.0 MCV 90.7 MCH 29.4 MCHC 32.4 RDW Std Deviation 46.4 H RDW Coeff of Yonathan 13.9 Plt Count 246 MPV 10.7 Immature Gran % (Auto) 0.500 Neut % (Auto) 72.6 H Lymph % (Auto) 17.2 L Mobile % (Auto) 9.1 Eos % (Auto) 0.3 Baso % (Auto) 0.3 Absolute Neuts (auto) 4.6 Absolute Lymphs (auto) 1.08 Nucleated RBC % 0 Sodium 138 Potassium 3.7 Chloride 107 Carbon Dioxide 30.0 Anion Gap 1 L BUN 12 Creatinine 1.17 H Est GFR (MDRD) Af Amer 61 Est GFR (MDRD) Non-Af 50 L BUN/Creatinine Ratio 10.3 Glucose 78 Calcium 9.0 B-Natriuretic Peptide 141.3 H Treatment and Re-Evaluation :: Venous ultrasound of the lower extremities reveals no evidence of DVT. CBC is unremarkable. Chemistry studies reveal creatinine 1.17 which is consistent with her baseline. Her BNP today is elevated 141. Her BNP values in the past have been around 50. I did review her medication list with her. She is still currently on furosemide 20 mg a day. She had previously been on spironolactone 25 mg daily but she states they stopped this because she dropped her blood pressure and had a syncopal episode. I will write her for 4 days of Lasix 40 mg daily to help remove some of the excess fluid and improve her swelling. Patient to follow with her PCP next week. Discharge Plan Triage Chief Complaint: Edema ED Provider: Bia Donovan Dx/Rx/DC Orders Clinical Impression: Bilateral edema of lower extremity, CHF (congestive heart failure) Instructions: ED Heart Failure, Congestive (CHF), ED Peripheral Edema, Bilatera l Prescriptions: New furosemide [Lasix] 40 mg tablet 40 mg PO DAILY Qty: 4 0RF No Action hydroxyzine HCl 10 mg tablet 100 mg PO QHS bisacodyl 10 mg suppository 10 mg OH DAILY PRN (Reason: constipatio) aluminum-magnesium hydroxide 225-200 mg/5 mL suspension 5 ml PO Q4H PRN acetaminophen 325 mg capsule 325 mg PO Q4H PRN (Reason: pain) cetirizine 10 mg tablet 10 mg PO DAILY cyclobenzaprine 10 mg tablet 10 mg PO Q8H PRN (Reason: spasms) gabapentin 300 mg capsule 300 mg PO TID methocarbamol 750 mg tablet 750 mg PO Q8H PRN (Reason: pain) magnesium hydroxide [Milk of Magnesia] 400 mg/5 mL suspension 30 ml PO DAILY PRN (Reason: constipation) sennosides-docusate sodium [Senna with Docusate Sodium] 8.6-50 mg tablet 1 tab-cap PO BID cyanocobalamin (vitamin B-12) 500 mcg tablet 500 mcg PO DAILY cholecalciferol (vitamin D3) 50 mcg (2,000 unit) capsule 50 mcg PO DAILY mometasone 100 mcg/actuation HFA aerosol inhaler 2 puff inhalation BID polyethylene glycol 3350 [Miralax] 17 gram/dose powder 17 g PO DAILY Qty: 119 0RF esomeprazole magnesium [Nexium] 20 mg capsule,delayed release(DR/EC) 20 mg PO DAILY oxycodone 5 mg tablet 5 - 10 mg PO Q6H PRN (Reason: pain) 3 Days Qty: 12 0RF spironolactone 25 mg tablet 25 mg PO losartan 50 mg tablet 50 mg PO DAILY hydroxyzine HCl 50 mg tablet 50 mg PO BID aripiprazole 15 mg tablet 15 mg PO DAILY trazodone 100 mg tablet 100 mg PO QHS furosemide 20 mg tablet 20 mg PO DAILY carvedilol 3.125 mg tablet 3.125 mg PO BID carboxymethylcellulose sodium 0.5 % drops 1 drp ophthalmic (eye) BID aspirin 81 mg tablet,delayed release (DR/EC) 81 mg PO DAILY budesonide-formoterol [Symbicort] 160-4.5 mcg/actuation HFA aerosol inhaler 2 puff inhalation DAILY levothyroxine 50 mcg tablet 50 mcg PO DAILY Rx Instructions: TAKE 1 TABLET BY MOUTH DAILY FOR THYROID lidocaine 5 % adhesive patch,medicated 3 patch topical Q24H Rx Instructions: APPLY ONE PATCH TO PAINFUL AREA FOR UP TO 12 HOURS, THEN REMOVE FOR 12 HOURS fluticasone propionate 50 mcg/actuation spray,suspension 1 spray intranasal Q12H Rx Instructions: USE 1 SPRAY IN EACH NOSTRIL TWICE A DAY FOR ALLERGIES loratadine 10 mg tablet 10 mg PO Q24H Rx Instructions: TAKE 1 TABLET BY MOUTH DAILY FOR ALLERGIES Spiriva Respimat 1.25 mcg/actuation mist 2 inh inhalation Q24H PRN (Reason: asthma) Rx Instructions: INHALE 2 PUFFS BY MOUTH DAILY ondansetron 4 mg tablet,disintegrating 4 mg PO Q8H PRN (Reason: nausea and vomiting) Qty: 60 1RF nitroglycerin 0.4 mg tablet, sublingual 0.4 mg SUBLINGUAL PRN PRN (Reason: CHEST PAIN) Qty: 25 3RF montelukast [Singulair] 10 mg tablet 10 mg PO QHS Qty: 30 5RF melatonin 10 mg capsule 10 mg PO QHS Qty: 90 0RF guaifenesin 1,200 mg tablet extended release 12hr 600 mg PO BID Qty: 60 2RF albuterol sulfate 90 mcg/actuation HFA aerosol inhaler 2 puff inhalation Q4H PRN (Reason: shortness of breath or wheezing) Qty: 8.5 6RF Rx Instructions: administer with spacer Primary Care Provider: Elizabeth Santamaria Referrals: Elizabeth Santamaria MD [Primary Care Provider] - 1 Week Disposition Disposition: Home, Self Care
[2024-01-25 10:52] LABS: Absolute Lymphocyte Count 1.08 X10^3/uL (0.83-4.51); Absolute Neutrophil Count 4.6 X10^3/uL (2.0-7.7); Basophil# 0.02 X10^3/uL; Basophil% 0.3 % (0-1); Eosinophil# 0.02 X10^3/uL; Eosinophils% 0.3 % (0-5); Lymphocyte # 1.08 X10^3/ul (0.83-4.51); Lymphocyte % 17.2 % (19-41); Mean Corp Hgb Conc 32.4 g/dL (32-36); Mean Corpuscular Hgb 29.4 pg (27.0-32.0); Mean Corpuscular Volume 90.7 fL (81-99); Mean Platelet Vol. 10.7 fl (6.2-12.0); Monocyte# 0.57 X10^3/uL; Monocyte% 9.1 % (0-10); NRBC Flagged by Analyzer 0 % (0-5); Neutrophil # 4.57 X10^3/uL (2.7-7.7); Neutrophil % 72.6 % (47-70); Platelet Count 246 K/mm3 (150-450); RBC Distribution Width CV 13.9 % (11.6-14.6); RBC Distribution Width SD 46.4 fl (35.1-43.9); Red Blood Count 4.08 M/mm3 (4.2-5.4); White Blood Count 6.3 K/mm3 (4.4-11.0)
[2024-01-25 11:04] LABS: Anion Gap 1 (5-15); BUN 12 mg/dL (7-18); BUN/Creat Ratio 10.3 RATIO (10-20); Chloride 107 mmol/L (98-107); Creatinine, Serum 1.17 mg/dL (0.55-1.02); EST Glomerular Filtration Rate 50 mL/min (>60); Est Glom Filt Rate - Afr Amer 61 mL/min (>60); Glucose 78 mg/dL (74-106); Potassium 3.7 mmol/L (3.5-5.1); Sodium Level 138 mmol/L (136-145)
[2024-01-25 11:20] LABS: BNP,B-Type NATRIURETIC PEPTIDE 141.3 pg/mL (0-100)
[2024-01-25 11:58] VITALS: BP 127/51; PULSE 48; RESP 16; TEMP 36.9; O2SAT 98
--- NOTE | 2024-01-25 11:59 | ED.RN ---
uses rollator well
== END 2024-01-25 12:00 | disposition home or self-care (01) ==
PROVIDERS: Emergency Provider Emergency Medicine; PCP Internal Medicine; Visit Provider Emergency Medicine
DX: I11.0 Hypertensive heart disease with heart failure (principal); I50.9 Heart failure, unspecified; Z79.82 Long term (current) use of aspirin; Z79.899 Other long term (current) drug therapy; Z86.16 Personal history of COVID-19; Z86.711 Personal history of pulmonary embolism; Z86.718 Personal history of other venous thrombosis and embolism; Z86.73 Personal history of transient ischemic attack (TIA), and cerebral infarction without residual deficits; Z87.891 Personal history of nicotine dependence
CPT/HCPCS: 80048; 83880; 85025; 93970; 99283

== ENCOUNTER → 2024-01-29 | Outpatient (CLI) | payer MEDICAID, SELFPAY ==
[2024-01-29 12:52] LABS: BNP,B-Type NATRIURETIC PEPTIDE 207.2 pg/mL (0-100)
[2024-01-29 13:09] LABS: ALB/GLOB Ratio 1.1 RATIO (0.9-2.4); AST(SGOT) 18 U/L (15-37); Alanine Aminotransfer ALT/SGPT 33 U/L (13-56); Albumin, Serum 3.4 g/dL (3.2-5.0); Alkaline Phosphatase 125 U/L (45-117); Anion Gap 4 (5-15); BUN 16 mg/dL (7-18); Calcium,Total 9.1 mg/dL (8.5-10.1); Chloride 107 mmol/L (98-107); Creatinine, Serum 1.33 mg/dL (0.55-1.02); EST Glomerular Filtration Rate 43 mL/min (>60); Est Glom Filt Rate - Afr Amer 52 mL/min (>60); Globulin 3.2 g/dL (2.2-4.2); Glucose 109 mg/dL (74-106); Potassium 3.7 mmol/L (3.5-5.1); Protein, Total 6.6 g/dL (6.4-8.2); Sodium Level 142 mmol/L (136-145); Thyroid Stim Hormone (TSH) 1.29 uIU/mL (0.358-3.74); Troponin-I HS 47 pg/mL (3.0-54.0)
== END | disposition home or self-care (01) ==
LOC: BIMLAB 11:08
PROVIDERS: PCP Internal Medicine; Visit Provider Internal Medicine
DX: R60.0 Localized edema (principal)
CPT/HCPCS: 36415; 80053; 83880; 84443; 84484

== ENCOUNTER → 2024-01-31 | Outpatient (CLI) | payer MEDICAID, SELFPAY ==
--- NOTE | 2024-01-31 13:40 | RAD_ITS ---
STUDY: X-RAY - LUMBAR SPINE REASON FOR EXAM: Female, 59 years old. POST OP STATE TECHNIQUE: 3 view(s) of the lumbar spine were obtained. COMPARISON: 04/04/2021 FINDINGS: Normal lumbar lordosis. Bilateral hypoplastic 12th ribs. There is no substantial scoliosis. Interval of the transpedicular fixation at L4/L5 with 2 mm of anterolisthesis of L4 and L5. 2 mm retrolisthesis of L3 on L4. There is multilevel endplate spondylosis of the lumbar vertebrae. There is multi-level degenerative disc disease with multi-level disc space narrowing. The soft tissue structures are unremarkable. RAD/Lumbar Spine 2 or 3 Views IMPRESSION: Interval transpedicular fixation at L4/L5 with 2 mm of anterolisthesis of L4 and L5 and 2 mm retrolisthesis of L3 on L4. Electronically Signed: Ilan Naqvi MD at 19:49 EDT ,
--- NOTE | 2024-01-31 13:40 | RAD_ITS ---
INDICATION: shortness of breath EXAMINATION/TECHNIQUE: X-RAY - XR Chest 2 Views COMPARISON: Prior study dated: 10/04/2022 FINDINGS: LINES/DEVICES: None. LUNGS: No consolidation, edema or effusion. No pneumothorax. MEDIASTINUM AND CARDIOVASCULAR STRUCTURES: Borderline cardiac silhouette. BONES AND SOFT TISSUES: Unremarkable. RAD/Chest PA and Lateral IMPRESSION: No radiographic evidence of acute cardiopulmonary disease. Electronically Signed: Farzad Jordan MD at 15:15 EDT ,
== END | disposition home or self-care (01) ==
PROVIDERS: PCP Internal Medicine
DX: Z98.890 Other specified postprocedural states (principal)
CPT/HCPCS: 71046; 72100

== ENCOUNTER → 2024-02-19 | Outpatient (CLI) | payer MEDICAID, SELFPAY ==
[2024-02-19 14:08] LABS: Mucous, Urine 0 SEEN /hpf (<or=2+); Red Blood Cells-Urine 0 SEEN /hpf (0-5)
[2024-02-19 14:11] LABS: Color, Urine Yellow (Yellow); Glucose, Dipstick Normal (Normal); Ketone-Dipstick Negative (Negative); Leukocyte Esterase-Dipstick Negative /ul (Negative); Nitrite-Dipstick Negative (Negative); Occult Blood-Urine Negative /ul (Negative); Protein-Dipstick Negative (Negative); Urine Bilirubin Dipstick Negative (Negative); Urine Clarity Sl. Cloudy (Clear); Urine Urobilinogen Normal (Normal)
[2024-02-19 14:16] LABS: Bacteria RARE /hpf (None Seen); Squamous Epithelial Cells - UA 0-5 SEEN /hpf (5-10); White Blood Cells 0-5 SEEN /hpf (0-5)
== END | disposition home or self-care (01) ==
LOC: LABSPEC 14:04
PROVIDERS: PCP Internal Medicine; Referring Provider Internal Medicine; Visit Provider Internal Medicine
DX: R30.0 Dysuria (principal)
CPT/HCPCS: 81001; 87086; 87088; 87186

== ENCOUNTER → 2024-03-12 | Outpatient (CLI) | payer MEDICAID, SELFPAY ==
--- NOTE | 2024-03-12 07:44 | ECHOD_ITS ---
Reason For Study: CHF/[place] Procedure This was a 2D Doppler, Color Flow transthoracic echocardiogram. Exam performed in department. Left Ventricle Mild concentric left ventricular hypertrophy. Normal LV size. The left ventricular ejection fraction is 65 %. Normal diastololic function. Right Ventricle Normal right ventricle. Atria The left and right atria are normal. Mitral Valve Mild (1+) mitral valve insufficiency. Tricuspid Valve Mild tricuspid valve insufficiency. Normal pulmonary artery pressure. Aortic Valve Trisinus/trileaflet aortic valve. Mild-Moderate (1-2+) aortic valve insufficiency. Pulmonic Valve Trivial pulmonic valve insufficiency. Great Vessels Mildly dilated aortic root. Pericardium/Pleural No pericardial effusion. MMode/2D Measurements & Calculations LVIDd: 6.6 cm IVSd: 1.2 cm Ao root diam: 3.7 cm LVIDs: 4.2 cm LVPWd: 1.2 cm LA dimension: 4.1 cm RVDd: 3.7 cm FS: 36.8 % LAV(MOD-bp): 69.7 ml LVAd ap4: 37.9 cm2 SV(MOD-sp4): 86.4 ml LAV(MOD-bp) Indexed: 31.5 ml/m2 LVLd ap4: 8.8 cm LAV(MOD-sp2): 59.8 ml EDV(MOD-sp4): 130.6 ml LAV(MOD-sp4): 66.0 ml EDV(sp4-el): 139.2 ml LVAs ap4: 19.6 cm2 LVLs ap4: 7.0 cm ESV(MOD-sp4): 44.3 ml ESV(sp4-el): 46.4 ml EF(MOD-sp4): 66.1 % EF(sp4-el): 66.7 % SV(sp4-el): 92.8 ml LA A4 area: 22.2 cm2 RA A4 area: 16.2 cm2 TAPSE: 2.1 cm Time Measurements MV dec time: 0.18 sec Doppler Measurements & Calculations MV E max govind: 86.0 cm/sec Lat Peak E' Govind: 13.2 cm/sec Med Peak E' Govind: 7.8 cm/sec MV A max govind: 85.8 cm/sec E/E' lat: 6.5 E/E' med: 11.0 MV E/A: 1.0 MV V2 max: 105.6 cm/sec MV P1/2t max govind: 106.7 cm/sec Ao V2 max: 170.6 cm/sec MV max P.5 mmHg MV P1/2t: 73.5 msec Ao max P.6 mmHg MV V2 mean: 55.3 cm/sec MV dec slope: 425.6 cm/sec2 Ao V2 mean: 114.9 cm/sec MV mean P.5 mmHg Ao mean P.0 mmHg MV V2 VTI: 42.0 cm MVA(P1/2t): 3.0 cm2 Ao V2 VTI: 40.8 cm AV (velocity ratio): 0.98 AI max govind: 503.3 cm/sec LV V1 max: 162.9 cm/sec MR max govind: 542.8 cm/sec AI max P.4 mmHg LV V1 max P.6 mmHg MR max P.8 mmHg AI dec slope: 289.5 cm/sec2 LV V1 mean P.6 mmHg MR mean govind: 444.0 cm/sec AI P1/2t: 509.2 msec LV V1 mean: 97.2 cm/sec MR mean P.0 mmHg LV V1 VTI: 39.9 cm MR VTI: 224.0 cm PA V2 max: 106.5 cm/sec TR max govind: 271.4 cm/sec TR max P.5 mmHg ECHO/Echo Complete Interpretation Summary Mild concentric left ventricular hypertrophy. The left ventricular ejection fraction is 65 %. Mild (1+) mitral valve insufficiency. Mild tricuspid valve insufficiency. Mild-Moderate (1-2+) aortic valve insufficiency. Mildly dilated aortic root. Ordering Physician: Yazmin Owen Referring Physician: Mary Santamaria Performed By: Igor Coffman RCS
== END | disposition home or self-care (01) ==
LOC: CVS 07:44
PROVIDERS: PCP Internal Medicine; Referring Provider Physician Assistant Medical; Visit Provider Physician Assistant Medical
DX: I50.9 Heart failure, unspecified (principal); R06.09 Other forms of dyspnea
CPT/HCPCS: 93306

== ENCOUNTER → 2024-03-19 | Outpatient (CLI) | payer MEDICAID, SELFPAY ==
--- NOTE | 2024-03-19 06:48 | CT_ITS ---
STUDY: LOW DOSE CT LUNG CANCER SCREENING REASON FOR EXAM: Female, 59 years old. Smoker. Patient smokes 1 pack per day for 30 years. RADIATION DOSAGE (If Supplied By Facility): CTDIvol = ( 4.02 ) mGy, DLP = ( 135.42 ) mGycm TECHNIQUE: No contrast was administered. Low dose technique was utilized (average mAS-38 and kVp 120). 1.25 mm axial source images with a slice interval of 1.25-mm were reconstructed in lung windows. 2.5 mm axial source images with a slice interval of 2.5-mm were reconstructed in lung windows. 5.0 mm axial source images with a slice interval of 5.0-mm were reconstructed in soft tissue windows. COMPARISON: Comparison is made with prior study dated March 01, 2023. NODULES: Stable 9 mm x 6 mm partially calcified granuloma in the posterior lateral aspect of the right lower lobe as seen on axial image #166. Emphysema: Mild emphysematous changes. Stable linear atelectasis and/or scarring at the left lung base. Endobronchial lesion: None Aorta: Unremarkable CORONARY ARTERIES: Coronary artery calcification is not seen. Heart: Mild cardiomegaly. Pulmonary artery: Unremarkable Mediastinal nodes: Calcified right hilar lymph nodes. Other chest and abdominal findings: CT/Low Dose CT Lung Screening IMPRESSION: Lung-RADS category 2 - Continue annual screening with LDCT in 12 months. IMPORTANT NOTES FOR USE: ACR Lung-RADS Version 1.1 Assessment Categories Release Date: 2018 Category: Coded 0-4 bases on nodule(s) with highest degree of suspicion. Negative screen is defined as categories 1 and 2; a positive screen is defined as categories 3 and 4. Category 3 and 4A nodules that are unchanged on interval CT should be coded as category 2, and individuals returned to screening in 12 months. Category 4X: Category 3 or 4 nodules with additional imaging findings that increase the suspicion of lung cancer, such as spiculation, GGN that doubles in size in 1 year, enlarged lymph notes, etc. Category Modifiers: S (significant finding unrelated to lung cancer) Electronically Signed: Patrick Keita MD at 10:27 EDT ,
== END | disposition home or self-care (01) ==
LOC: CT 06:46
PROVIDERS: PCP Internal Medicine; Referring Provider Nurse Practitioner Acute Care; Visit Provider Nurse Practitioner Acute Care
DX: F17.210 Nicotine dependence, cigarettes, uncomplicated (principal)
CPT/HCPCS: 71271

== ENCOUNTER 2024-03-24 09:22 | Day surgery (SDC) | payer MEDICAID, SELFPAY ==
[2024-03-24] VITALS (7 sets, daily range): BP systolic 98–128; BP diastolic 51–86; PULSE 53–97; RESP 16–18; TEMP 36.3–36.6; O2SAT 71–100; BMI 46.8
[2024-03-24] MEDS: Lactated Ringers 1,000 ML 15 ML IV (09:51)
--- NOTE | 2024-03-24 10:30 | COLBX_PTH ---
PATIENT: NIGHAT TIMMONS LOC: EN U#:[id number] AGE/SX: 59/F ROOM: RE03/24/[address]: Dr. Sumeet Irving DO : 1965 BED: DIS: 03/24/2024 SPEC #: [id number] RECD: 03/24/24 11:33 STATUS: HUMERA REAnne #: [id number] KENNEDY: 03/24/24 10:[address]: Sumeet Irving DEPT: SURGICAL PATHOLOGY RECD BY: Tiesha Raines ENTERED: 03/24/24 13:05 SP TYPE: COLON BX OT DR: Dr. Elizabeth Santamaria MD Tissues: A - COLON BIOPSY B - COLON BIOPSY C - Sigmoid colon biopsy Procedures: Surgery Specimen Level IV HEADER OPERATION: Colonoscopy with biopsy PRE-OP DIAGNOSIS: Nausea/ vomiting, abdominal pain, GERD, diarrhea TISSUE SUBMITTED: A- Hepatic flexure polyp biopsy, B- Random colon biopsy, C- Sigmoid colon biopsy MICROSCOPIC DIAGNOSIS A. Polyp at hepatic flexure, biopsy: Fragment of tubular adenoma. B. Colon, random biopsy: Mild melanosis coli. C. Sigmoid colon, biopsy: Inflammatory polyp. ELIZABETH/ 03/25/2024 COMMENT Case has been reviewed in consultation with Dr. Urban who concurs with the above diagnosis. IDC:OLIMPIA MICROSCOPIC DESCRIPTION Slides are reviewed. GROSS DESCRIPTION A. Received in fixative is one container labeled with the patient's name and designated Hepatic flexure polyp biopsy. The specimen consists of two irregular fragments of light huertas soft tissue that in aggregate measure 0.6 x 0.3 x 0.1 cm. The specimen is totally submitted in one cassette. B. Received in fixative is one container labeled with the patient's name and designated Random colon biopsy. The specimen consists of multiple irregular fragments of light huertas soft tissue that in aggregate measure 1.5 x 0.4 x 0.1 cm. The specimen is totally submitted in one cassette. C. Received in fixative is one container labeled with the patient's name and designated Sigmoid polyp biopsy. The specimen consists of one irregular fragment of light huertas soft tissue that measures 0.3 x 0.3 x 0.1 cm. The specimen is totally submitted in one cassette. Carmen 03/24/2024 TC:5
--- NOTE | 2024-03-24 10:54 | HP.PCM_ITS ---
History and Physical Date of Admission: 03/24/24 NIGHAT TIMMONS, is a 58 F who presents to the office today for PMH COPD, CKD, bipolar, depression, obesity, pancreatitis Prior workup: ? EGD small hiatal hernia ? CT abd/pel 09.01.21 without contrast calcified granuloma right lung; s/p cholecystectomy; small hiatal hernia; umbilical hernia. *I established 09.16.21 with N/V, abdominal pain, constipation and heartburn for the last 15 years that has been progressing in severity. Marijuana used to aid in symptom management. Reports recent worsening of loose stools with concern as several family members have Crohn?s. ? CT abd/pel 10.05.21 without contrast lung fibrotic changes; s/p cholecystectomy; umbilical hernia. ? EGD and colonoscopy 10.12.21 LA Grade A esophagitis; medium hiatal hernia; gastritis. No path changes ? Colonoscopy poor prep. two TA polyps; diverticulosis. No path changes. ? Biochemical 1.03.05 ESR, BMP, GAME, celiac, KWESI without pertinent abnormality ? Stool H.Pylori WNL OV 12.07.21 reporting significant decline recently. Recommend ED presentation [facility] ED 12.07.21 GI cocktail provided with resolution of emesis. Xray abd without concern. Discharged home. [facility] ED 12.26.21 chest pain/heaviness; no cardiac findings and discharged home. ? Biochemical (PCP) . ESR, RF, KWESI without pertinent abnor mality [facility] hospitalization 03.13.22-6 for management of acute colitis with symptoms of acute abdominal/epigastric region. General surgery consulted who recommended repeat imaging and diet advancement as tolerated. ? CT abd/pel 03.13.22 without contrast small hiatal hernia; wall thickening of descending colon with inflammation, colitis. ? CT abd 03.14.22 without contrast lung atelectasis versus infiltrate; s/p cholecystectomy; left hemicolon with circumferential wall thickening and increased fat markings. ? Modified barium 03.17.22 mild-moderate oropharyngeal dysphagia, mild esophageal dysphagia. [facility] ED 04.13.22 with abdominal pain; reports nutrition told her she had significant weight loss. Ongoing N/V. Recommend behavioral health for management of cyclic vomiting. (Behavioral health was not followed through with and she did not establish) [facility] outpatient: ? CT abd 04.18.22 s/p cholecystectomy; small hiatal hernia. ? Biochemical (PCP) 05.10.22 without contrast CBC, CMP, CPK, lipid, TSH, D25 without pertinent abnormality ? AST L25-ALT 32-AP H126, FIB4 0.52 ST discharged 05.17.22 as she met all of her goals. ? EGD 06.26.23 non-severe esophagitis; small hiatal hernia. No pathology changes. OV 12.25.23- Pt reports recent spinal surgery on the . Had cyst on spinal cord. Continues to have daily heartburn and nausea. Take Nexium 40mg QD and Zofran. No dysphagia. States BM were normal once a day but has had constipation since surgery. ROS Const Constitutional: No fatigue ENT ENT: No difficulty swallowing Gastro GI: Positive for constipation and heartburn; No abdominal pain, belching, bloating, change in bowel habits, change in stool character, coffee ground emesis, cramping, diarrhea, difficulty swallowing, feeling full early, excessive flatus, incontinent of stools, Vomiting blood/hematemesis, Blood in stool, loose stools, Black,tarry stools, nausea/dyspepsia, pain with swallowing, vomiting or other Musc Musculoskeletal: Positive for back pain; No joint pain Skin Skin: No yellowing of the eye or itchy eyes Psych Psychiatric: No anxiety and No depression Endo Endocrine: No fatigue Aller/Imm Allergy/Immunologic: No itchy eyes Marquis/Lymp Hematologic/Lymphatic: No easy bleeding or easy bruising Exam Const General: cooperative, healthy appearing, comfortable, no acute distress and well developed Nutritional Appearance: average body habitus Orientation: alert, awake and oriented x3 HENMT Head: normal to inspection, normocephalic and atraumatic Ears: hearing grossly normal bilaterally Nose: external nose normal Face and sinus: normal facial exam Mouth: oral mucosae normal Eyes General: appearance normal, both eyes and all related structures Neck Neck: normal visual inspection Chest Chest palpation & inspection: normal inspection of the chest Resp Effort & Inspection: normal respiratory effort, able to speak in complete se ntences and symmetric chest movement Cardio Pulses: radial pulses present bilaterally 2+ GI Inspection: normal to inspection Musc Cervical Spine: normal cervical lordosis Thoracic/Lumbar Spine: thoracic and lumbar spine normal to inspection Other: Right wrist range of motion intact. Neurovascularly she is intact. Right r adial pulse 2+. Capillary refill less than 2 seconds to all digits. Right hand grasp 5 out of 5. Skin Other: Ecchymosis to right wrist/forearm region. No drainage. Ecchymosis is purple/yellow. Pinpoint and needle insertion from previous IV noted, no drainage, no erythema. No streaking. Neuro General: patient alert, patient awake, patient oriented x3, oriented and gait normal Cranial Nerves: CN's II-XI intact bilaterally Cognition: normal cognition Speech: speech normal Gait: normal gait Motor: muscle tone normal throughout Sensory Exam: no sensory deficits noted Extrem General: normal to inspection and capillary refill normal Psych Appearance: grossly normal Mental Status: mental status grossly normal Mood: congruent mood Affect: normal affect Speech and Movement: speech and movement normal Attitude: cooperative Thought Process: normal Thought Content: normal Quality Reporting Tobacco Screening ([facility] 138) Smoking Status: Current every day smoker Assessment and Plan Assessment and Plan (1) Nausea & vomiting: Status: Chronic Qualifiers: Vomiting type: unspecified Qualified Code(s): R11.2 - Nausea with vomiting, unspecified Plan: She has a diagnosis of gastroparesis and possible cyclic vomiting syndrome. In the setting of marijuana usage and increases her risk of marijuana hyperemesis. I encouraged her to stop smoking marijuana as it increases cough induced reflux and worsening of her gastroparesis to to marijuana. (2) Abdominal pain: Status: Chronic Plan: Her abdominal pain is multifactorial. (3) GERD (gastroesophageal reflux disease): Plan: Patient says she does take omeprazole and it has not been helping. I suspect this is because she has a previous diagnosis of gastroparesis and has not been treated. I will see if she can tolerate low-dose Reglan in the evening only. I will also institute Dexilant therapy. She may be a good candidate for probable procedure to see if this is related to reflux disease or bile. (4) Diarrhea: Status: Resolved Plan: We will evaluate her small bowel endoscopy and colonoscopy with biopsies throughout the GI tract to identify any possible eosinophilic disease that could be contributing to her lung disease and GI disease. I have examined the patient and the H&P has been reviewed. There are no clinical changes since date of exam.
--- NOTE | 2024-03-24 11:19 | OP.COLON_ITS ---
Patient Name: Soumya Owens Procedure Date: 03/24/2024 10:52 AM Date of : 1965 Age: 59 Procedure: Colonoscopy Indications: Chronic diarrhea Providers: Sumeet Irving DO Referring MD: Elizabeth Santamaria Md Medicines: Monitored Anesthesia Care Patient Profile: This is a 59 year old female. Refer to note in patient chart for documentation of history and physical. Last Colonoscopy: 5 years ago. Complications: No immediate complications. Procedure: Pre-Anesthesia Assessment: - Prior to the procedure, a History and Physical was performed, and patient medications and allergies were reviewed. The patient is competent. The risks and benefits of the procedure and the sedation options and risks were discussed with the patient. All questions were answered and informed consent was obtained. Patient identification and proposed procedure were verified by the physician. Mental Status Examination: normal. Prophylactic Antibiotics: The patient does not require prophylactic antibiotics. Prior Anticoagulants: The patient has taken no anticoagulant or antiplatelet agents. After reviewing the risks and benefits, the patient was deemed in satisfactory condition to undergo the procedure. The anesthesia plan was to use monitored anesthesia care (MAC). Immediately prior to administration of medications, the patient was re-assessed for adequacy to receive sedatives. The heart rate, respiratory rate, oxygen saturations, blood pressure, adequacy of pulmonary ventilation, and response to care were monitored throughout the procedure. The physical status of the patient was re-assessed after the procedure. After I obtained informed consent, the scope was passed under direct vision. Throughout the procedure, the patient's blood pressure, pulse, and oxygen saturations were monitored continuously. The colonoscope was introduced through the anus and advanced to the cecum, identified by appendiceal orifice and ileocecal valve. The colonoscopy was performed without difficulty. The patient tolerated the procedure well. The quality of the bowel preparation was fair. Scope In: 10:59:54 AM Scope Withdrawal Time 0 hours 7 minutes 57 seconds Scope Out: 11:12:44 AM Total Procedure Duration Time 0 hours 12 minutes 50 seconds Findings: The perianal and digital rectal examinations were normal. A few small-mouthed diverticula were found in the recto-sigmoid colon and sigmoid colon. An area of mildly congested mucosa was found in the sigmoid colon, in the descending colon, in the transverse colon and in the ascending colon. Biopsies were taken with a cold forceps for histology. Stool was found in the recto-sigmoid colon, in the sigmoid colon, in the descending colon, at the splenic flexure, in the transverse colon and in the ascending colon. Two sessile polyps were found in the sigmoid colon and ascending colon. The polyps were 1 to 2 mm in size. These polyps were removed with a jumbo cold forceps. Resection and retrieval were complete. Verification of patient identification for the specimen was done. Estimated blood loss was minimal. Impression: - Preparation of the colon was fair. - Diverticulosis in the recto-sigmoid colon and in the sigmoid colon. - Congested mucosa in the sigmoid colon, in the descending colon, in the transverse colon and in the ascending colon. Biopsied. - Stool in the recto-sigmoid colon, in the sigmoid colon, in the descending colon, at the splenic flexure, in the transverse colon and in the ascending colon. - Two 1 to 2 mm polyps in the sigmoid colon and in the ascending colon, removed with a jumbo cold forceps. Resected and retrieved. Recommendation: - Repeat colonoscopy in 1 year. - Continue present medications. Procedure Code(s): --- Professional --- 47908, Colonoscopy, flexible; with biopsy, single or multiple CPT copyright 2021 [employer]. All rights reserved. The codes documented in this report are preliminary and upon business objects architect review may be revised to meet current compliance requirements. Sumeet Irving DO 03/24/2024 11:18:32 AM This report has been signed electronically. Number of Addenda: 0 Note Initiated On: 03/24/2024 10:52 AM
--- NOTE | 2024-03-24 11:19 | OP.CCLET_ITS ---
03/24/2024 Elizabeth Santamaria Md Re : Colonoscopy procedure for Soumya Owens Dear Rosalio This procedure was performed on Sunday, March 24, 2024. My impressions and recommendations are as follows: Impressions : - Preparation of the colon was fair. - Diverticulosis in the recto-sigmoid colon and in the sigmoid colon. - Congested mucosa in the sigmoid colon, in the descending colon, in the transverse colon and in the ascending colon. Biopsied. - Stool in the recto-sigmoid colon, in the sigmoid colon, in the descending colon, at the splenic flexure, in the transverse colon and in the ascending colon. - Two 1 to 2 mm polyps in the sigmoid colon and in the ascending colon, removed with a jumbo cold forceps. Resected and retrieved. Recommendations : - Repeat colonoscopy in 1 year. - Continue present medications. My findings are described in the full procedure note, which is enclosed. If I can be of further assistance, please feel free to contact me at . Sincerely, Sumeet Irving DO 03/24/2024 11:18:32 AM This report has been signed electronically.
== END 2024-03-24 12:42 | disposition home or self-care (01) ==
LOC: EN 09:32 → AC 09:35
PROVIDERS: PCP Internal Medicine; Referring Provider Internal Medicine; Visit Provider Internal Medicine Gastroenterology
PROC: 0DJD8ZZ Inspection of Lower Intestinal Tract, Via Natural or Artificial Opening Endoscopic (ICD-10-PCS; CPT 45378; principal; 2024-03-24 10:25)
DX: D12.3 Benign neoplasm of transverse colon (principal); F31.9 Bipolar disorder, unspecified; J44.9 Chronic obstructive pulmonary disease, unspecified; N18.30 Chronic kidney disease, stage 3 unspecified; K57.30 Diverticulosis of large intestine without perforation or abscess without bleeding; F17.210 Nicotine dependence, cigarettes, uncomplicated; K63.89 Other specified diseases of intestine; E66.9 Obesity, unspecified; K85.90 Acute pancreatitis without necrosis or infection, unspecified; K21.9 Gastro-esophageal reflux disease without esophagitis; Z79.899 Other long term (current) drug therapy; Z79.82 Long term (current) use of aspirin; Z79.890 Hormone replacement therapy; E78.5 Hyperlipidemia, unspecified; E03.9 Hypothyroidism, unspecified; Z87.19 Personal history of other diseases of the digestive system
CPT/HCPCS: 45380; 45385; 88305; J7120; J2405

== ENCOUNTER → 2024-04-08 | Outpatient (CLI) | payer MEDICAID, SELFPAY ==
[2024-04-08 09:09] LABS: Mucous, Urine 0 SEEN /hpf (<or=2+)
[2024-04-08 12:31] LABS: Absolute Lymphocyte Count 1.29 X10^3/uL (0.83-4.51); Absolute Neutrophil Count 5.3 X10^3/uL (2.0-7.7); Basophil# 0.01 X10^3/uL; Basophil% 0.1 % (0-1); Eosinophil# 0.03 X10^3/uL; Eosinophils% 0.4 % (0-5); Hematocrit 44.7 % (37-47); Hemoglobin 14.7 g/dL (12.0-15.0); Lymphocyte # 1.29 X10^3/ul (0.83-4.51); Lymphocyte % 17.7 % (19-41); Mean Corp Hgb Conc 32.9 g/dL (32-36); Mean Corpuscular Hgb 28.8 pg (27.0-32.0); Mean Corpuscular Volume 87.5 fL (81-99); Mean Platelet Vol. 10.9 fl (6.2-12.0); Monocyte# 0.65 X10^3/uL; Monocyte% 8.9 % (0-10); NRBC Flagged by Analyzer 0 % (0-5); Neutrophil # 5.29 X10^3/uL (2.7-7.7); Neutrophil % 72.6 % (47-70); Platelet Count 211 K/mm3 (150-450); RBC Distribution Width CV 13.5 % (11.6-14.6); RBC Distribution Width SD 43.2 fl (35.1-43.9); Red Blood Count 5.11 M/mm3 (4.2-5.4); White Blood Count 7.3 K/mm3 (4.4-11.0)
[2024-04-08 12:38] LABS: Color, Urine Yellow (Yellow); Glucose, Dipstick Normal (Normal); Ketone-Dipstick 5 mg/dl (Negative); Leukocyte Esterase-Dipstick 500 /ul (Negative); Nitrite-Dipstick Positive (Negative); Occult Blood-Urine 10 /ul (Negative); Protein-Dipstick 30 mg/dl (Negative); Urine Bilirubin Dipstick Negative (Negative); Urine Clarity Cloudy (Clear); Urine Urobilinogen Normal (Normal)
[2024-04-08 12:54] LABS: Bacteria 2+ /hpf (None Seen); Red Blood Cells-Urine 0-5 SEEN /hpf (0-5); Squamous Epithelial Cells - UA 5-10 SEEN /hpf (5-10); White Blood Cells 10-25 SEEN /hpf (0-5)
[2024-04-08 12:58] LABS: ALB/GLOB Ratio 1.2 RATIO (0.9-2.4); AST(SGOT) 22 U/L (15-37); Alanine Aminotransfer ALT/SGPT 39 U/L (13-56); Albumin, Serum 3.9 g/dL (3.2-5.0); Alkaline Phosphatase 135 U/L (45-117); Anion Gap 8 (5-15); BUN 16 mg/dL (7-18); BUN/Creat Ratio 11.3 RATIO (10-20); Calcium,Total 9.6 mg/dL (8.5-10.1); Chloride 102 mmol/L (98-107); Cholesterol 184 mg/dL (200); Creatinine, Serum 1.41 mg/dL (0.55-1.02); EST Glomerular Filtration Rate 40 mL/min (>60); Est Glom Filt Rate - Afr Amer 49 mL/min (>60); Globulin 3.2 g/dL (2.2-4.2); Glucose 99 mg/dL (74-106); High Density Lipoprotein 55 mg/dL; Potassium 4.1 mmol/L (3.5-5.1); Protein, Total 7.1 g/dL (6.4-8.2); Sodium Level 134 mmol/L (136-145); Triglycerides 85 mg/dL; Troponin-I HS 6 pg/mL (3.0-54.0); Very Low Density Lipoprotein 17 mg/dL (5-40)
[2024-04-08 13:04] LABS: Vitamin B12 946 pg/mL (211-911); Vitamin D,25 Hydroxy 48.7 ng/mL
== END | disposition home or self-care (01) ==
LOC: BIMLAB 09:07
PROVIDERS: PCP Internal Medicine; Visit Provider Internal Medicine
DX: R10.12 Left upper quadrant pain (principal); I10 Essential (primary) hypertension; E56.9 Vitamin deficiency, unspecified
CPT/HCPCS: 36415; 80053; 80061; 81001; 82306; 82607; 84484; 85025; 87077; 87086; 87088; 87186

== ENCOUNTER 2024-04-26 15:12 | Emergency (ER) | payer MEDICAID, SELFPAY ==
[2024-04-26 15:14] VITALS: BP 156/76; PULSE 72; RESP 16; TEMP 36.2; O2SAT 99
--- NOTE | 2024-04-26 15:37 | CT_ITS ---
INDICATION: vertigo EXAMINATION: CT BRAIN - CT Head or Brain W/O Contrast Injection TECHNIQUE: Multiple axial images were obtained of the head without intravenous contrast. A radiation dose optimization technique was used for this scan. IV Contrast dosage and agent: None. COMPARISON: None. FINDINGS: BRAIN PARENCHYMA: No intra- or extra-axial hemorrhage. No evidence of acute infarct. No intracranial mass or mass effect. There is preservation of the foley/white matter interface. Posterior fossa structures are unremarkable. CSF SPACES: Appropriate for age. No hydrocephalus. Basal cisterns are patent. CALVARIUM, SKULL BASE, PARANASAL SINUSES AND MASTOID AIR CELLS: Mild right maxillary sinus mucoperiosteal thickening. No discrete lytic or blastic abnormalities. CT/Brain/Head without Contrast IMPRESSION: No acute intracranial findings. Electronically Signed: Darrin Vergara MD at 18:02 EDT ,
--- NOTE | 2024-04-26 15:39 | EKG12_ITS ---
Test Reason : GENERAL Blood Pressure : / mmHG Vent. Rate : 055 BPM Atrial Rate : 055 BPM P-R Int : 168 ms QRS Dur : 088 ms QT Int : 452 ms P-R-T Axes : 006 -13 004 degrees QTc Int : 432 ms Sinus bradycardia Otherwise normal ECG Confirmed by MILO SPEARS, MELLISSA ([id number]), social media editor FELI LAW ([id number]) on 04/30/2024 9:42:24 AM Referred By: Confirmed By:MADHAVI PEDRAZA MD
--- NOTE | 2024-04-26 15:46 | EX.ED.DYSGE1 ---
HPI History of Present Illness Chief Complaint: Headache Informant: patient Onset/Context/Timing Onset: Days (4 days) Narrative Narrative: Patient presents with a 4-day history of headache, dizziness, and nausea. She reports a pressure-like sensation in the left parietal area that is been present for the past 4 days. She denies any recent head injury. She is been taking Tylenol without improvement. She states that she walks around off balance and has some nausea as well. Patient denies history of vertigo but does describe her lightheadedness and dizziness as vertigo. [facility] Medical History PONV (postoperative nausea and vomiting) Adult failure to thrive Contusion of hip Back contusion Difficulty in walking Impingement of left shoulder Enchondroma of left humerus History of Holter monitoring Loss of hearing Wears glasses Bipolar disorder History of steroid therapy History of renal disease Restless legs Sleep apnea Chronic cough History of skin cancer Disease of gingiva due to infection COVID-19 virus infection Degenerative tear of meniscus of left knee Osteoarthritis of left knee Cyclic vomiting syndrome Colitis Pain of left calf Kidney disease Sarcoidosis Morbid obesity Debility Myositis Stroke/cerebrovascular accident TIA (transient ischemic attack) History of atrial fibrillation Chest pain Diarrhea Bilateral flank pain Dysuria Oral candidiasis Abdominal pain Bilateral foot pain Venous insufficiency of both lower extremities History of abnormal cervical Pap smear Wears dentures Post-menopausal Cancer Marijuana use Open wound Thyroid disease Walker as ambulation aid Arthritis Bladder disease High cholesterol Easy bruising Excessive bleeding Back pain Injury of head and neck Blackout Syncope Seizures Dietary restriction Difficulty chewing History of hiatal hernia History of ulceration History of IBS Gastric reflux Smoker CPAP (continuous positive airway pressure) dependence Shortness of breath on exertion Leg cramps History of edema History of echocardiogram Hx of tilt table evaluation History of stress test Cardiology follow-up encounter History of CHF (congestive heart failure) Family history of colon cancer Allergic rhinitis Osteoarthritis of right hip Nonrheumatic aortic (valve) insufficiency Non-rheumatic mitral regurgitation Heart failure Intertriginous dermatitis associated with moisture Psychosis Orthostatic hypotension Osteoarthritis DAPHNE (obstructive sleep apnea) Schizo NEC, chrn/exacerb Peripheral artery disease Pulmonary embolism Stroke Hypothyroidism HTN (hypertension) PAF (paroxysmal atrial fibrillation) Hypokalemia Hyponatremia Arthralgia of right hip Hip dislocation, right Enlarged aorta CKD (chronic kidney disease) Bipolar 1 disorder Cyst Non-convulsive status epilepticus Migraines Asthma Aortic valve insufficiency Hypertensive crisis without congestive heart failure Left arm swelling Conversion disorder with abnormal movement Gastritis Convulsion, non-epileptic Schizophrenia COPD, mild Depression Home Medications ?Medication ?Instructions ?Recorded ?Last Taken ?Type nitroglycerin 0.4 mg sublingual 0.4 mg sublingual PRN PRN CHEST 07/09/23 Unknown Rx tablet PAIN #25 tabs guaifenesin 1,200 mg tablet, 600 mg (1/2 x 1,200 mg) PO BID 12/12/23 03/23/24 Rx extended release 12 hr allergies #60 tabs acetaminophen 325 mg capsule 325 mg PO Q4H PRN pain 01/04/24 03/24/24 History aluminum-magnesium hydroxide 225 5 ml PO Q4H PRN constipation 01/04/24 Unknown History mg-200 mg/5 mL oral suspension bisacodyl 10 mg rectal suppository 10 mg AL DAILY PRN constipatio 01/04/24 03/23/24 History cetirizine 10 mg tablet 10 mg PO DAILY allergies 01/04/24 03/23/24 History cyclobenzaprine 10 mg tablet 10 mg PO Q8H PRN spasms 01/04/24 03/23/24 History gabapentin 300 mg capsule 300 mg PO TID nerve 01/04/24 03/24/24 History magnesium hydroxide 400 mg/5 mL 30 ml PO DAILY PRN constipation 01/04/24 03/23/24 History oral suspension (Milk of Magnesia) methocarbamol 750 mg tablet 750 mg PO Q8H PRN pain 01/04/24 03/23/24 History mometasone 100 mcg/actuation HFA 2 puff inhalation BID c 01/04/24 03/24/24 History aerosol inhaler sennosides 8.6 mg-docusate sodium 1 tab-cap PO BID constipation 01/04/24 03/23/24 History 50 mg tablet (Senna with Docusate Sodium) albuterol sulfate 90 mcg/actuation 2 puff inhalation Q4H PRN 01/11/24 03/24/24 Rx aerosol inhaler shortness of breath or wheezing #8.5 grams aripiprazole 15 mg tablet 15 mg PO DAILY bipolar 01/11/24 Unknown History carboxymethylcellulose sodium 0.5 1 drp ophthalmic (eye) BID eyes 01/11/24 03/23/24 History % eye drops lidocaine 5 % topical patch 3 patch topical Q24H pain 01/11/24 03/23/24 History trazodone 100 mg tablet 100 mg PO QHS sleep 01/11/24 03/23/24 History polyethylene glycol 3350 17 17 g PO DAILY Constipation #119 01/22/24 03/24/24 Rx gram/dose oral powder (Miralax) grams miscellaneous medical supply 1 packet miscellaneous DAILY #4 ea 01/29/24 Unknown Rx mepolizumab 100 mg/mL subcutaneous 100 mg subcut ONCE 01/31/24 03/23/24 History syringe (Nucala) furosemide 40 mg tablet 40 mg PO DAILY #30 tabs 02/01/24 03/23/24 Rx montelukast 10 mg tablet 10 mg PO QHS for allergies #30 02/01/24 03/23/24 Rx TABLETS spironolactone 25 mg tablet 25 mg PO DAILY #30 tabs 02/01/24 03/23/24 Rx aspirin 81 mg tablet,delayed 81 mg PO QAM #30 TABLETS 02/28/24 03/19/24 Rx release loratadine 10 mg tablet 10 mg PO DAILY for allergies #30 02/28/24 03/23/24 Rx TABLETS bisacodyl 5 mg tablet,delayed 5 mg PO ONCE #4 tabs 02/29/24 03/23/24 Rx release (Dulcolax (bisacodyl)) fluticasone propionate 50 1 spray intranasal Q12H allergies 02/29/24 03/24/24 Rx mcg/actuation nasal #16 grams spray,suspension levothyroxine 50 mcg tablet 50 mcg PO DAILY thyr #90 tabs 02/29/24 03/24/24 Rx polyethylene glycol 3350 17 See Rx Instructions .Route 02/29/24 03/24/24 Rx gram/dose oral powder (Miralax) .COMPLEX #238 grams tiotropium bromide 1.25 2 inh inhalation Q24H PRN asthma 02/29/24 03/24/24 Rx mcg/actuation mist for inhalation #4 grams (Spiriva Respimat) omeprazole 40 mg capsule,delayed 40 mg PO DAILY #30 caps 03/18/24 03/24/24 Rx release carvedilol 3.125 mg tablet 3.125 mg PO BID #60 TABLETS 03/26/24 Unknown Rx cholecalciferol (vitamin D3) 50 50 mcg PO DAILY vit #90 caps 03/26/24 Unknown Rx mcg (2,000 unit) capsule cyanocobalamin (vitamin B-12) 500 500 mcg PO DAILY vit #90 tabs 03/26/24 Unknown Rx mcg tablet losartan 50 mg tablet 50 mg PO DAILY bp #90 tabs 03/26/24 Unknown Rx miscellaneous medical supply 1 ea miscellaneous ONCE #1 ea 03/27/24 Unknown Rx budesonide-formoterol HFA 160 2 inh inhalation DAILY asthma #3 ea 03/31/24 Unknown Rx mcg-4.5 mcg/actuation aerosol inhaler (Symbicort) budesonide 3 mg 6 mg (2 x 3 mg) PO DAILY #60 ea 04/03/24 Unknown Rx capsule,delayed,extended release melatonin 10 mg tablet 10 mg PO QHS for insomnia #90 04/24/24 Unknown Rx TABLETS meclizine 25 mg tablet 25 mg PO TID PRN dizziness #20 tabs 04/26/24 Unknown Rx Allergy/AdvReac Type Severity Reaction Status Date / Time adhesive tape Allergy Rash Verified 04/26/24 15:14 atropine sulfate (From Allergy Hives Verified 04/26/24 15:14 ) codeine phosphate (From Allergy breathing Verified 04/26/24 15:14 Tylenol-Codeine #3) problems divalproex sodium (From Allergy Unknown Verified 04/26/24 15:14 Depakote) guaifenesin Allergy Itching Verified 04/26/24 15:14 hydrocodone Allergy Itching Verified 04/26/24 15:14 hydromorphone HCl (From Allergy facial Verified 04/26/24 15:14 Dilaudid) blisters,itching hyoscyamine sulfate (From Allergy Hives Verified 04/26/24 15:14 ) Iodinated Contrast Media Allergy breathing Verified 04/26/24 15:14 (Iodinated Contrast Media - problems IV Dye) and my bp went up latex Allergy Rash Verified 04/26/24 15:14 pantoprazole sodium (From Allergy Rash Verified 04/26/24 15:14 Protonix) phenobarbital (From ) Allergy Hives Verified 04/26/24 15:14 promethazine HCl (From Allergy Anaphylaxis Verified 04/26/24 15:14 Phenergan) ramipril Allergy Unknown Verified 04/26/24 15:14 scopolamine hydrobromide Allergy Hives Verified 04/26/24 15:14 (From ) tramadol Allergy Itching Verified 04/26/24 15:14 ziprasidone mesylate (From Allergy Unknown Verified 04/26/24 15:14 Geodon) amlodipine AdvReac Vomiting Verified 04/26/24 15:14 levofloxacin (From Levaquin) AdvReac Itching Verified 04/26/24 15:14 metoclopramide (From Reglan) AdvReac Other Verified 04/26/24 15:14 Sulfa (Sulfonamide AdvReac Vomiting Verified 04/26/24 15:14 Antibiotics) ziprasidone HCl (From Geodon) AdvReac tremors Verified 04/26/24 15:14 Family History Sister Myocardial infarction Colon cancer Mother Hypertension Arthritis Brain aneurysm Heart disease High cholesterol Sister Colon cancer Heart disease High cholesterol Hypertension Arthritis Grandmother Arthritis Diabetes CVA (cerebral vascular accident) Father Heart disease High cholesterol Hypertension Surgical History History of back surgery (~12/2023) Previous back surgery Cataract extraction status History of esophagogastroduodenoscopy (EGD) Hx of colonoscopy History of laparoscopic cholecystectomy History of uterine suspension procedure S/P carpal tunnel release bladder sling left foot Social History household members: none number of children: 4 current occupational status: unemployed history of recent travel: No Smoking Status: Former smoker quit date: 11/12/23 Tobacco: How many years used: 26 Electronic Cigarette Use: not used quit status: considering quitting alcohol intake: never substance use type: does not use caffeine: Yes Type: coffee what type of physical activity do you participate in: none seatbelt use: never do you feel safe at home: Yes additional social history: single ROS ROS ED Constitutional Constitutional ED: Denies chills or fever(s) Eyes Eyes: Denies change in vision or discharge from eye(s) ENT ENT ED: Denies discharge from eye(s), rhinorrhea or sore throat Cardiovascular Cardiovascular: Denies chest pain or palpitations Respiratory/Chest Respiratory/Chest: Denies cough or dyspnea Gastrointestinal Gastrointestinal: Reports nausea and vomiting; Denies abdominal pain or diarrhea Genitourinary Genitourinary ED: Denies dysuria Musculoskeletal Musculoskeletal: Denies back pain or extremity pain Integumentary Denies Abrasions or rash Neurologic Neurologic: Reports headache(s) and weakness Psychiatric Psychiatric: Denies depression Allergic/Immunologic Allergic/Immunologic ED: Denies lip swelling or urticaria EXAM Physical Exam Const Vital Signs: 04/26/24 15:14 04/26/24 17:12 Temperature 97.2 F L Temperature Source Temporal Pulse Rate 72 56 L Respiratory Rate 16 20 H Blood Pressure 156/76 H 100/49 L Blood Pressure Mean 102 66 Pulse Ox 99 96 Oxygen Delivery Method Room Air Room Air Positive well nourished and well developed General Appearance ED: well developed HEENT Reports normocephalic and head/scalp atraumatic Eyes PERRL and EOMs intact bilaterally Neck supple Chest Wall inspection of chest normal and palpation of chest normal Resp normal respiratory effort and clear to auscultation bilaterally Cardio regular rate and regular rhythm GI normal to inspection, nondistended, normoactive bowel sounds Palpation: soft Extremity normal to inspection Neuro oriented x3 and no sensory deficits noted Neuro Narrative: NIH equals 0. No focal deficits appreciated at this time. Sensorium / Orientation: alert Motor Exam: strength 5/5 throughout Psych mental status grossly normal Skin no rashes or lesions noted MDM MDM MDM Narrative Medical decision making narrative: Patient placed on manager cardiac cath. IV line initiated. EKG obtained to evaluate for cardiac arrhythmia/ischemia. Labwork obtained to evaluate for leukocytosis, anemia, and electrolyte derangement. CT scan of the head obtained given her headache and dizziness. Patient given a dose of Zofran and Toradol along with IV fluids. She is also given a dose of Antivert for dizziness. History & Record Review Discussion w/independent historian: Patient Additional record(s) reviewed:: Prior ED visit and Prior labs Lab Data Attestation: I reviewed the patient's lab results. Labs: Laboratory Results - last 24 hr 04/26/24 04/26/24 16:25 17:50 WBC 7.7 RBC 4.66 Hgb 13.4 Hct 40.8 MCV 87.6 MCH 28.8 MCHC 32.8 RDW Std Deviation 45.6 H RDW Coeff of Yonathan 14.4 Plt Count 213 MPV 10.9 Immature Gran % (Auto) 0.400 Neut % (Auto) 80.0 H Lymph % (Auto) 12.6 L Heard % (Auto) 6.4 Eos % (Auto) 0.3 Baso % (Auto) 0.3 Absolute Neuts (auto) 6.2 Absolute Lymphs (auto) 0.97 Nucleated RBC % 0 Sodium 137 Potassium 3.5 Chloride 105 Carbon Dioxide 26.0 Anion Gap 6 BUN 19 H Creatinine 1.51 H Est GFR (MDRD) Af Amer 45 L Est GFR (MDRD) Non-Af 37 L BUN/Creatinine Ratio 12.6 Glucose 138 H Calcium 8.7 Troponin I High Sens 8 Urine Color Yellow Urine Clarity Clear Urine pH 6.0 Ur Specific [place] 1.010 Urine Protein Negative Urine Glucose (UA) Normal Urine Ketones Negative Urine Occult Blood Negative Urine Nitrite Positive H Urine Bilirubin Negative Urine Urobilinogen Normal Ur Leukocyte Esterase 100 H Urine RBC 0 SEEN Urine WBC 0-5 SEEN Ur Squamous Epith Cells 5-10 SEEN Urine Bacteria 1+ Urine Mucus 0 SEEN Radiography Diagnostic Testing: Clinical Impression(s) from Imaging Studies Brain CT 04/26/24 15:37 IMPRESSION: No acute intracranial findings. Electronically Signed: Darrin Vergara MD at 18:02 EDT , EKG Initial EKG: Attestation: I personally reviewed and interpreted this EKG as follows: Interpretation: Sinus Bradycardia (Sinus bradycardia at 55 bpm. No acute ischemia.) Treatment and Re-Evaluation :: CBC was normal white count 7.7 with a hemoglobin of 13.4. 80% neutrophils noted. Chemistry studies reveal a BUN of 19 and a creatinine 1.51. This is slightly increased compared to her prior. Bicarb is normal. Troponin is normal at 8. Urinalysis is positive for nitrites with 5-10 epithelial cells and 1+ bacteria. She does not have any urinary symptoms. I will send this for urine culture but not initiate antibiotic treatment. CT scan of the head reveals no acute abnormalities. EKG is sinus bradycardia with no acute findings. Patient does have multiple allergies making headache treatment difficult. She initially reported some improvement in her dizziness with Antivert. She did not report significant improvement in her headache with Toradol and Zofran. Patient is given a dose of Fioricet at this time. I advised by nursing staff that the patient is requesting discharge. When I went back and spoke with her she reported some improvement in her symptoms, but would like to be discharged to home. I advised her that I had concerns if she was unsteady on her feet with her going home, however she states that she has a roommate that will be with her and she has a walker. I offered admission and she declined. I will send a prescription for Antivert to the pharmacy for her. Return instructions were provided. Discharge Plan Triage Chief Complaint: Headache ED Provider: Bia Doonvan Dx/Rx/DC Orders Clinical Impression: Cephalgia, Vertigo Instructions: ED Headache Unspecified, ED Vertigo, Unspecified Prescriptions: New meclizine 25 mg tablet 25 mg PO TID PRN (Reason: dizziness) Qty: 20 0RF No Action bisacodyl 10 mg suppository 10 mg AL DAILY PRN (Reason: constipatio) aluminum-magnesium hydroxide 225-200 mg/5 mL suspension 5 ml PO Q4H PRN acetaminophen 325 mg capsule 325 mg PO Q4H PRN (Reason: pain) cetirizine 10 mg tablet 10 mg PO DAILY cyclobenzaprine 10 mg tablet 10 mg PO Q8H PRN (Reason: spasms) gabapentin 300 mg capsule 300 mg PO TID methocarbamol 750 mg tablet 750 mg PO Q8H PRN (Reason: pain) magnesium hydroxide [Milk of Magnesia] 400 mg/5 mL suspension 30 ml PO DAILY PRN (Reason: constipation) sennosides-docusate sodium [Senna with Docusate Sodium] 8.6-50 mg tablet 1 tab-cap PO BID mometasone 100 mcg/actuation HFA aerosol inhaler 2 puff inhalation BID Nucala 100 mg/mL syringe 100 mg subcut ONCE polyethylene glycol 3350 [Miralax] 17 gram/dose powder 17 g PO DAILY Qty: 119 0RF miscellaneous medical supply Packet 1 packet miscellaneous DAILY Qty: 4 0RF budesonide-formoterol [Symbicort] 160-4.5 mcg/actuation HFA aerosol inhaler 2 inh inhalation DAILY Qty: 3 3RF aripiprazole 15 mg tablet 15 mg PO DAILY trazodone 100 mg tablet 100 mg PO QHS carboxymethylcellulose sodium 0.5 % drops 1 drp ophthalmic (eye) BID lidocaine 5 % adhesive patch,medicated 3 patch topical Q24H Rx Instructions: APPLY ONE PATCH TO PAINFUL AREA FOR UP TO 12 HOURS, THEN REMOVE FOR 12 HOURS nitroglycerin 0.4 mg tablet, sublingual 0.4 mg SUBLINGUAL PRN PRN (Reason: CHEST PAIN) Qty: 25 3RF guaifenesin 1,200 mg tablet extended release 12hr 600 mg PO BID Qty: 60 2RF albuterol sulfate 90 mcg/actuation HFA aerosol inhaler 2 puff inhalation Q4H PRN (Reason: shortness of breath or wheezing) Qty: 8.5 6RF Rx Instructions: administer with spacer spironolactone 25 mg tablet 25 mg PO DAILY Qty: 30 11RF montelukast 10 mg tablet 10 mg PO QHS Qty: 30 2RF furosemide 40 mg tablet 40 mg PO DAILY Qty: 30 11RF aspirin 81 mg tablet,delayed release (DR/EC) 81 mg PO QAM Qty: 30 5RF loratadine 10 mg tablet 10 mg PO DAILY Qty: 30 5RF bisacodyl [Dulcolax (bisacodyl)] 5 mg tablet,delayed release (DR/EC) 5 mg PO ONCE Qty: 4 0RF Rx Instructions: Take 4 tabs po once the day before colonoscopy for prep polyethylene glycol 3350 [Miralax] 17 gram/dose powder See Rx Instructions .ROUTE .COMPLEX Qty: 238 0RF Rx Instructions: Mix entire bottle of miralax into 64oz clear liquid, and drink until gone for bowel prep for Colonoscopy; levothyroxine 50 mcg tablet 50 mcg PO DAILY Qty: 90 0RF Rx Instructions: TAKE 1 TABLET BY MOUTH DAILY FOR THYROID Spiriva Respimat 1.25 mcg/actuation mist 2 inh inhalation Q24H PRN (Reason: asthma) Qty: 4 0RF Rx Instructions: INHALE 2 PUFFS BY MOUTH DAILY fluticasone propionate 50 mcg/actuation spray,suspension 1 spray intranasal Q12H Qty: 16 0RF Rx Instructions: USE 1 SPRAY IN EACH NOSTRIL TWICE A DAY FOR ALLERGIES omeprazole 40 mg capsule,delayed release(DR/EC) 40 mg PO DAILY Qty: 30 2RF carvedilol 3.125 mg tablet 3.125 mg PO BID Qty: 60 11RF losartan 50 mg tablet 50 mg PO DAILY Qty: 90 0RF cyanocobalamin (vitamin B-12) 500 mcg tablet 500 mcg PO DAILY Qty: 90 0RF cholecalciferol (vitamin D3) 50 mcg (2,000 unit) capsule 50 mcg PO DAILY Qty: 90 0RF miscellaneous medical supply Misc 1 ea miscellaneous ONCE Qty: 1 0RF Rx Instructions: Lift chair budesonide 3 mg capsule,delayed,extend.release 6 mg PO DAILY Qty: 60 3RF melatonin 10 mg tablet 10 mg PO QHS Qty: 90 0RF Primary Care Provider: Elizabeth Santamaria Referrals: Elizabeth Santamaria MD [Primary Care Provider] - Print Language: Citizen Of [place] Disposition Disposition: Home, Self Care
[2024-04-26] MEDS: 0.9% Normal Saline (1000mL) 1,000 ML 150 ML IV (16:16)
[2024-04-26] MEDS: Meclizine HCl 25 MG Tablet PO (16:16)
[2024-04-26] MEDS: Ketorolac 15 MG/ML Vial IV (16:17)
[2024-04-26] MEDS: Ondansetron 4 MG/2 ML Vial IV (16:17)
[2024-04-26 16:45] LABS: Absolute Lymphocyte Count 0.97 X10^3/uL (0.83-4.51); Absolute Neutrophil Count 6.2 X10^3/uL (2.0-7.7); Basophil# 0.02 X10^3/uL; Basophil% 0.3 % (0-1); Eosinophil# 0.02 X10^3/uL; Eosinophils% 0.3 % (0-5); Hematocrit 40.8 % (37-47); Hemoglobin 13.4 g/dL (12.0-15.0); Lymphocyte # 0.97 X10^3/ul (0.83-4.51); Lymphocyte % 12.6 % (19-41); Mean Corp Hgb Conc 32.8 g/dL (32-36); Mean Corpuscular Hgb 28.8 pg (27.0-32.0); Mean Corpuscular Volume 87.6 fL (81-99); Mean Platelet Vol. 10.9 fl (6.2-12.0); Monocyte# 0.49 X10^3/uL; Monocyte% 6.4 % (0-10); NRBC Flagged by Analyzer 0 % (0-5); Neutrophil # 6.16 X10^3/uL (2.7-7.7); Platelet Count 213 K/mm3 (150-450); RBC Distribution Width CV 14.4 % (11.6-14.6); RBC Distribution Width SD 45.6 fl (35.1-43.9); Red Blood Count 4.66 M/mm3 (4.2-5.4); White Blood Count 7.7 K/mm3 (4.4-11.0)
[2024-04-26 17:06] LABS: Anion Gap 6 (5-15); BUN 19 mg/dL (7-18); BUN/Creat Ratio 12.6 RATIO (10-20); Calcium,Total 8.7 mg/dL (8.5-10.1); Chloride 105 mmol/L (98-107); Creatinine, Serum 1.51 mg/dL (0.55-1.02); EST Glomerular Filtration Rate 37 mL/min (>60); Est Glom Filt Rate - Afr Amer 45 mL/min (>60); Glucose 138 mg/dL (74-106); Potassium 3.5 mmol/L (3.5-5.1); Sodium Level 137 mmol/L (136-145); Troponin-I HS 8 pg/mL (3.0-54.0)
[2024-04-26 17:12] VITALS: BP 100/49; PULSE 56; RESP 20; O2SAT 96
[2024-04-26 17:59] LABS: Mucous, Urine 0 SEEN /hpf (<or=2+); Red Blood Cells-Urine 0 SEEN /hpf (0-5)
[2024-04-26 18:02] LABS: Color, Urine Yellow (Yellow); Glucose, Dipstick Normal (Normal); Ketone-Dipstick Negative (Negative); Leukocyte Esterase-Dipstick 100 /ul (Negative); Nitrite-Dipstick Positive (Negative); Occult Blood-Urine Negative /ul (Negative); Protein-Dipstick Negative (Negative); Urine Bilirubin Dipstick Negative (Negative); Urine Clarity Clear (Clear); Urine Urobilinogen Normal (Normal)
[2024-04-26 18:14] LABS: Bacteria 1+ /hpf (None Seen); Squamous Epithelial Cells - UA 5-10 SEEN /hpf (5-10); White Blood Cells 0-5 SEEN /hpf (0-5)
[2024-04-26] MEDS: Acetaminophen/Butalbital/Caffe 1 Tablet 2 TABLET PO (19:27)
[2024-04-26 20:01] VITALS: BP 106/69; PULSE 70; RESP 18; TEMP 36.3; O2SAT 97
== END 2024-04-26 20:02 | disposition home or self-care (01) ==
PROVIDERS: Emergency Provider Emergency Medicine; PCP Internal Medicine; Visit Provider Emergency Medicine
DX: R42 Dizziness and giddiness (principal); I50.9 Heart failure, unspecified; I13.0 Hypertensive heart and chronic kidney disease with heart failure and stage 1 through stage 4 chronic kidney disease, or unspecified chronic kidney disease; F31.9 Bipolar disorder, unspecified; J44.9 Chronic obstructive pulmonary disease, unspecified; I48.0 Paroxysmal atrial fibrillation; E78.00 Pure hypercholesterolemia, unspecified; R51.9 Headache, unspecified; N18.9 Chronic kidney disease, unspecified; Z86.73 Personal history of transient ischemic attack (TIA), and cerebral infarction without residual deficits; G47.33 Obstructive sleep apnea (adult) (pediatric); Z99.89 Dependence on other enabling machines and devices; Z79.899 Other long term (current) drug therapy; Z79.51 Long term (current) use of inhaled steroids; E03.9 Hypothyroidism, unspecified; Z79.82 Long term (current) use of aspirin; K21.9 Gastro-esophageal reflux disease without esophagitis; Z90.49 Acquired absence of other specified parts of digestive tract; Z87.891 Personal history of nicotine dependence
CPT/HCPCS: 70450; 80048; 81001; 84484; 85025; 87077; 87086; 87088; 87186; 93005; 96361; 96374; 96375; 99285; J7030; A4216; J2405

== ENCOUNTER → 2024-05-21 | Outpatient (CLI) | payer MEDICAID, SELFPAY ==
[2024-05-21 10:53] LABS: Anion Gap 4 (5-15); BNP,B-Type NATRIURETIC PEPTIDE 123.9 pg/mL (0-100); BUN 16 mg/dL (7-18); BUN/Creat Ratio 10.5 RATIO (10-20); Calcium,Total 9.1 mg/dL (8.5-10.1); Chloride 105 mmol/L (98-107); Creatinine, Serum 1.53 mg/dL (0.55-1.02); EST Glomerular Filtration Rate 37 mL/min (>60); Est Glom Filt Rate - Afr Amer 45 mL/min (>60); Glucose 72 mg/dL (74-106); Potassium 3.6 mmol/L (3.5-5.1); Sodium Level 138 mmol/L (136-145)
[2024-05-21 10:56] LABS: AST(SGOT) 19 U/L (15-37); Alanine Aminotransfer ALT/SGPT 25 U/L (13-56); Albumin, Serum 3.6 g/dL (3.2-5.0); Alkaline Phosphatase 134 U/L (45-117); Bilirubin, Direct 0.14 mg/dL (0.00-0.30); Cholesterol 178 mg/dL (200); Globulin 3.4 g/dL (2.2-4.2); High Density Lipoprotein 56 mg/dL; Triglycerides 142 mg/dL; Very Low Density Lipoprotein 28 mg/dL (5-40)
== END | disposition home or self-care (01) ==
LOC: LAB 10:18
PROVIDERS: Nurse Practitioner Gerontology; PCP Internal Medicine; Referring Provider Nurse Practitioner Family; Visit Provider Nurse Practitioner Family
DX: R06.09 Other forms of dyspnea (principal); I48.0 Paroxysmal atrial fibrillation; R07.9 Chest pain, unspecified; E78.00 Pure hypercholesterolemia, unspecified
CPT/HCPCS: 36415; 80048; 80061; 80076; 83880

== ENCOUNTER → 2024-05-22 | Outpatient (CLI) | payer MEDICAID, SELFPAY ==
--- NOTE | 2024-05-22 07:06 | CT_ITS ---
STUDY: CT ABDOMEN AND PELVIS WITHOUT CONTRAST REASON FOR EXAM: Female, 59 years old. left flank pain RADIATION DOSAGE (If Supplied By Facility): CTDIvol = ( 23.19 ) mGy, DLP = ( 1216.51 ) mGycm TECHNIQUE: Transaxial images were obtained from the dome of the diaphragm to the symphysis pubis without oral contrast, and without intravenous contrast. Sagittal and coronal images were reconstructed. Individualized dose optimization techniques were used for this CT. COMPARISON: None. FINDINGS: Left lower lobe of the scarring. Cardiomegaly. Normal liver. There are surgical clips in the gallbladder fossa consistent with a prior cholecystectomy. Normal spleen. Normal pancreas. Normal bilateral adrenal glands. Normal right kidney. Normal left kidney. Normal visualized stomach. Normal small intestine. Normal colon. The appendix is visualized and appears normal. Normal abdominal aorta. Normal inferior vena cava. Normal retroperitoneum. Normal urinary bladder. Normal abdominal wall. Status post transpedicular fixation the lower lumbar spine. CT/Abdomen/Pelvis without Cont IMPRESSION: No renal or ureteral stone. Electronically Signed: Ilan Naqvi MD at 21:24 EDT ,
== END | disposition home or self-care (01) ==
PROVIDERS: PCP Internal Medicine; Referring Provider Internal Medicine; Visit Provider Internal Medicine
DX: R10.9 Unspecified abdominal pain (principal)
CPT/HCPCS: 74176

== ENCOUNTER 2024-05-23 14:26 | Observation (INO) | payer MEDICAID, SELFPAY ==
[2024-05-23] VITALS (12 sets, daily range): BP systolic 129–169; BP diastolic 45–110; PULSE 46–74; RESP 11–18; TEMP 36–36.7; O2SAT 92–100; BMI 50.4; BMI 47.5
--- NOTE | 2024-05-23 14:35 | CT_ITS ---
STUDY: CT BRAIN WITHOUT CONTRAST REASON FOR EXAM: Female, 59 years old. Neuro deficit, acute, stroke suspected RADIATION DOSAGE (If Supplied By Facility): CTDIvol = ( ) mGy, DLP = ( ) mGycm TECHNIQUE: Transaxial CT imaging of the brain was performed without administration of intravenous contrast material. Individualized dose optimization techniques were used for this CT. COMPARISON: April 26, 2024 FINDINGS: Normal soft tissue structures. Normal calvarium. Normal size ventricles and extra-axial spaces for the patient''s age. Normal white matter tracts of the cerebral hemispheres. Normal basal ganglia and thalami. Normal brainstem. Normal cerebellum. There is no intracranial hemorrhage. There are no findings of an acute ischemic infarction. Normal visualized paranasal sinuses. CT/STROKE Brain/Head without Cont IMPRESSION: Normal unenhanced CT scan of the brain. N.B. : The above Results were Read Back by Tomy Duncan MD to Justin Shahid DO, and understanding confirmed on 05/23/2024 14:57:31 (ET). Electronically Signed: Tomy Duncan MD at 14:59 EDT ,
--- NOTE | 2024-05-23 14:36 | CT_ITS ---
STUDY: CTA HEAD AND NECK WITH CONTRAST REASON FOR EXAM: Female, 59 years old. Neuro deficit, acute, stroke suspected RADIATION DOSAGE (If Supplied By Facility): CTDIvol = ( 25.41 ) mGy, DLP = ( 867.67 ) mGycm TECHNIQUE: CT angiography was performed with a multi-detector CT scanner. Data acquisition was obtained from the skull base through the vertex following intravenous administration of IV 100mL [id number]-[id number]. MIP images were reconstructed from the axial data set. Post-processing of the angiographic images was performed, with multiplanar reformation and 3D reconstruction. Individualized dose optimization techniques were used for this CT. COMPARISON: [facility] May 23, 2021 FINDINGS: Normal bilateral petrous carotid arteries. Normal right cavernous carotid artery with a normal supraclinoid bifurcation. Normal left cavernous carotid artery with a normal supraclinoid bifurcation. Normal right A1 segments of the anterior cerebral artery. Normal left A1 segments of the anterior cerebral artery. Normal intact anterior communicating artery (ACOM). Normal bilateral A2 segments of the anterior cerebral arteries. Normal right M1 and M2 segments of the middle cerebral arteries, with a normal M1 bifurcation. Normal left M1 and M2 segments of the middle cerebral arteries, with a normal M1 bifurcation. There is a persistent origin of the right posterior cerebral artery with absence of the posterior communicating artery (PCOM). Normal left posterior communicating artery (PCOM). Normal bilateral vertebral arteries. Normal basilar artery with a normal basilar bifurcation. The visualized bilateral superior cerebellar (SCA) arteries are normal. Normal bilateral P1, P2 and visualized P3 segments of the posterior cerebral arteries. There is no demonstrated aneurysm of the [place]. There is no demonstrated abnormality of the visualized brain. AORTIC ARCH: Normal visualized aortic arch. Normal origins of the brachiocephalic, left common carotid, and left subclavian arteries. RIGHT CAROTID ARTERIES: Normal right common carotid artery (CCA). Normal right common carotid bulb. Normal origin of the right internal carotid (ICA) artery without a hemodynamically significant stenosis. Normal visualized cervical portion of the right internal carotid artery. Normal origin of the right external carotid artery (ECA). LEFT CAROTID ARTERIES: Normal left common carotid artery (CCA). Normal left common carotid bulb. Normal origin of the left internal carotid (ICA) artery without a hemodynamically significant stenosis. Normal visualized cervical portion of the left internal carotid artery. Normal origin of the left external carotid artery (ECA). VERTEBRAL ARTERIES: Normal bilateral vertebral arteries. CT/STROKE CTA Head AND Neck W/Con IMPRESSION: Normal CTA Head and neck with contrast. No aneurysm or large vessel occlusion. No internal carotid artery stenosis. N.B. : The above Results were Read Back by Tomy Duncan MD to Justin Shahid DO, and understanding confirmed on 05/23/2024 15:07:57 (ET). Electronically Signed: Tomy Duncan MD at 15:09 EDT ,
--- NOTE | 2024-05-23 14:38 | ED.VIS.STROK ---
HPI History of Present Illness Chief Complaint: Alt LOC Informant: patient Narrative Narrative: [facility], reported initial altered mental status. On arrival. To have stroke symptoms therefore stroke alert was initiated. 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 Reported typically can do normal activities of living. Patient unable to recognize objects per nursing therefore stroke alert was called. [facility] Medical History PONV (postoperative nausea and vomiting) Adult failure to thrive Contusion of hip Back contusion Difficulty in walking Impingement of left shoulder Enchondroma of left humerus History of Holter monitoring Loss of hearing Wears glasses Bipolar disorder History of steroid therapy History of renal disease Restless legs Sleep apnea Chronic cough History of skin cancer Disease of gingiva due to infection COVID-19 virus infection Degenerative tear of meniscus of left knee Osteoarthritis of left knee Cyclic vomiting syndrome Colitis Pain of left calf Kidney disease Sarcoidosis Morbid obesity Debility Myositis Stroke/cerebrovascular accident TIA (transient ischemic attack) History of atrial fibrillation Chest pain Diarrhea Bilateral flank pain Dysuria Oral candidiasis Abdominal pain Bilateral foot pain Venous insufficiency of both lower extremities History of abnormal cervical Pap smear Wears dentures Post-menopausal Cancer Marijuana use Open wound Thyroid disease Walker as ambulation aid Arthritis Bladder disease High cholesterol Easy bruising Excessive bleeding Back pain Injury of head and neck Blackout Syncope Seizures Dietary restriction Difficulty chewing History of hiatal hernia History of ulceration History of IBS Gastric reflux Smoker CPAP (continuous positive airway pressure) dependence Shortness of breath on exertion Leg cramps History of edema History of echocardiogram Hx of tilt table evaluation History of stress test Cardiology follow-up encounter History of CHF (congestive heart failure) Family history of colon cancer Allergic rhinitis Osteoarthritis of right hip Nonrheumatic aortic (valve) insufficiency Non-rheumatic mitral regurgitation Heart failure Intertriginous dermatitis associated with moisture Psychosis Orthostatic hypotension Osteoarthritis DAPHNE (obstructive sleep apnea) Schizo NEC, chrn/exacerb Peripheral artery disease Pulmonary embolism Stroke Hypothyroidism HTN (hypertension) PAF (paroxysmal atrial fibrillation) Hypokalemia Hyponatremia Arthralgia of right hip Hip dislocation, right Enlarged aorta CKD (chronic kidney disease) Bipolar 1 disorder Cyst Non-convulsive status epilepticus Migraines Asthma Aortic valve insufficiency Hypertensive crisis without congestive heart failure Left arm swelling Conversion disorder with abnormal movement Gastritis Convulsion, non-epileptic Schizophrenia COPD, mild Depression Home Medications ?Medication ?Instructions ?Recorded ?Last Taken ?Type nitroglycerin 0.4 mg sublingual 0.4 mg sublingual PRN PRN CHEST 07/09/23 Unknown Rx tablet PAIN #25 tabs acetaminophen 325 mg capsule 325 mg PO Q4H PRN pain 01/04/24 03/24/24 History cyclobenzaprine 10 mg tablet 10 mg PO Q8H PRN spasms 01/04/24 03/23/24 History gabapentin 300 mg capsule 300 mg PO TID nerve 01/04/24 05/23/24 History methocarbamol 750 mg tablet 750 mg PO Q8H PRN pain 01/04/24 05/22/24 History sennosides 8.6 mg-docusate sodium 1 tab-cap PO BID constipation 01/04/24 03/23/24 History 50 mg tablet (Senna with Docusate Sodium) albuterol sulfate 90 mcg/actuation 2 puff inhalation Q4H PRN 01/11/24 05/23/24 Rx aerosol inhaler shortness of breath or wheezing #8.5 grams aripiprazole 15 mg tablet 15 mg PO DAILY bipolar 01/11/24 05/23/24 History carboxymethylcellulose sodium 0.5 1 drp ophthalmic (eye) BID eyes 01/11/24 05/23/24 History % eye drops lidocaine 5 % topical patch 3 patch topical Q24H pain 01/11/24 05/22/24 History trazodone 100 mg tablet 100 mg PO QHS sleep 01/11/24 03/23/24 History furosemide 40 mg tablet 40 mg PO DAILY #30 tabs 02/01/24 05/23/24 Rx spironolactone 25 mg tablet 25 mg PO DAILY #30 tabs 02/01/24 03/23/24 Rx fluticasone propionate 50 1 spray intranasal Q12H allergies 02/29/24 05/23/24 Rx mcg/actuation nasal #16 grams spray,suspension levothyroxine 50 mcg tablet 50 mcg PO DAILY thyr #90 tabs 02/29/24 05/23/24 Rx carvedilol 3.125 mg tablet 3.125 mg PO BID #60 TABLETS 03/26/24 05/23/24 Rx cholecalciferol (vitamin D3) 50 50 mcg PO DAILY vit #90 caps 03/26/24 05/23/24 Rx mcg (2,000 unit) capsule cyanocobalamin (vitamin B-12) 500 500 mcg PO DAILY vit #90 tabs 03/26/24 05/23/24 Rx mcg tablet losartan 50 mg tablet 50 mg PO DAILY bp #90 tabs 03/26/24 05/23/24 Rx budesonide-formoterol HFA 160 2 inh inhalation DAILY asthma #3 ea 03/31/24 05/23/24 Rx mcg-4.5 mcg/actuation aerosol inhaler (Symbicort) melatonin 10 mg tablet 10 mg PO QHS for insomnia #90 04/24/24 05/22/24 Rx TABLETS montelukast 10 mg tablet 10 mg PO QHS for allergies #30 05/06/24 05/22/24 Rx TABLETS polyethylene glycol 3350 17 17 g PO QDAY PRN constipation #850 05/14/24 Unknown Rx gram/dose oral powder grams tiotropium bromide 1.25 2 puff PO DAILY PRN for asthma #4 05/19/24 Unknown Rx mcg/actuation mist for inhalation GMS (Spiriva Respimat) apixaban 5 mg tablet (Eliquis) 5 mg PO BID #60 tabs 05/21/24 05/23/24 Rx guaifenesin 600 mg tablet, 600 mg PO BID 05/21/24 05/23/24 History extended release 12 hr (Mucus Relief ER) hydroxyzine pamoate 100 mg capsule 100 mg PO QHS 05/21/24 05/22/24 History mepolizumab 100 mg/mL subcutaneous 100 mg subcut Q4W 05/21/24 05/23/24 History syringe (Nucala) tizanidine 2 mg tablet 4 mg PO TID 05/21/24 05/23/24 History omeprazole 40 mg capsule,delayed 40 mg PO DAILY #30 caps 05/22/24 05/23/24 Rx release loratadine 10 mg tablet 10 mg PO QHS for allergies 05/23/24 05/22/24 History Allergy/AdvReac Type Severity Reaction Status Date / Time adhesive tape Allergy Rash Verified 05/23/24 14:34 atropine sulfate (From Allergy Hives Verified 05/23/24 14:34 ) codeine phosphate (From Allergy breathing Verified 05/23/24 14:34 Tylenol-Codeine #3) problems divalproex sodium (From Allergy Unknown Verified 05/23/24 14:34 Depakote) guaifenesin Allergy Itching Verified 05/23/24 14:34 hydrocodone Allergy Itching Verified 05/23/24 14:34 hydromorphone HCl (From Allergy facial Verified 05/23/24 14:34 Dilaudid) blisters,itching hyoscyamine sulfate (From Allergy Hives Verified 05/23/24 14:34 ) latex Allergy Rash Verified 05/23/24 14:34 pantoprazole sodium (From Allergy Rash Verified 05/23/24 14:34 Protonix) phenobarbital (From ) Allergy Hives Verified 05/23/24 14:34 promethazine HCl (From Allergy Anaphylaxis Verified 05/23/24 14:34 Phenergan) ramipril Allergy Unknown Verified 05/23/24 14:34 scopolamine hydrobromide Allergy Hives Verified 05/23/24 14:34 (From ) tramadol Allergy Itching Verified 05/23/24 14:34 ziprasidone mesylate (From Allergy Unknown Verified 05/23/24 14:34 Geodon) amlodipine AdvReac Vomiting Verified 05/23/24 14:34 levofloxacin (From Levaquin) AdvReac Itching Verified 05/23/24 14:34 metoclopramide (From Reglan) AdvReac Other Verified 05/23/24 14:34 Sulfa (Sulfonamide AdvReac Vomiting Verified 05/23/24 14:34 Antibiotics) ziprasidone HCl (From Geodon) AdvReac tremors Verified 05/23/24 14:34 Family History Sister Myocardial infarction Colon cancer Mother Hypertension Arthritis Brain aneurysm Heart disease High cholesterol Sister Colon cancer Heart disease High cholesterol Hypertension Arthritis Grandmother Arthritis Diabetes CVA (cerebral vascular accident) Father Heart disease High cholesterol Hypertension Surgical History History of back surgery (~12/2023) Previous back surgery Cataract extraction status History of esophagogastroduodenoscopy (EGD) Hx of colonoscopy History of laparoscopic cholecystectomy History of uterine suspension procedure S/P carpal tunnel release bladder sling left foot Social History household members: none number of children: 4 current occupational status: unemployed history of recent travel: No Smoking Status: Former smoker quit date: 11/12/23 Tobacco: How many years used: 26 Electronic Cigarette Use: not used quit status: considering quitting alcohol intake: never substance use type: does not use caffeine: Yes Type: coffee what type of physical activity do you participate in: none seatbelt use: never do you feel safe at home: Yes additional social history: single ROS ROS ED Constitutional Constitutional ED: Denies chills, fever(s) or sweats Eyes Eyes: Reports blurry vision; Denies change in vision ENT ENT ED: Denies dysphagia or sore throat Cardiovascular Cardiovascular: Denies chest pain, leg edema, palpitations or racing heartbeat Respiratory/Chest Respiratory/Chest: Denies cough, dyspnea or dyspnea on exertion Gastrointestinal Gastrointestinal: Denies abdominal pain, diarrhea, nausea or vomiting Genitourinary Genitourinary ED: Denies dysuria, hematuria or urinary frequency Musculoskeletal Musculoskeletal: Denies back pain, extremity pain or neck pain Integumentary Denies rash or wounds Neurologic Neurologic: Reports weakness; Denies headache(s) or paresthesias EXAM Physical Exam Const Vital Signs: 05/23/24 14:28 05/23/24 14:35 05/23/24 14:40 Temperature 96.8 F L Temperature Source Temporal Pulse Rate 51 L 51 L Respiratory Rate 15 15 Blood Pressure 135/59 H 135/59 H Blood Pressure Mean 84 84 Pulse Ox 97 97 Oxygen Delivery Method Room Air Room Air Room Air 05/23/24 15:05 05/23/24 15:28 05/23/24 15:30 Temperature Temperature Source Pulse Rate 50 L 47 L 46 L Respiratory Rate 11 L 18 18 Blood Pressure 168/110 H 161/98 H 160/51 H Blood Pressure Mean 129 119 87 Pulse Ox 95 95 97 Oxygen Delivery Method Room Air Room Air Room Air 05/23/24 16:00 05/23/24 16:00 05/23/24 16:22 Temperature 98.0 F Temperature Source Pulse Rate 52 L 52 L 74 Respiratory Rate 16 16 18 Blood Pressure 151/63 H 151/63 H 169/95 H Blood Pressure Mean 92 92 119 Pulse Ox 97 92 Oxygen Delivery Method Room Air 05/23/24 16:30 Temperature Temperature Source Pulse Rate 47 L Respiratory Rate 16 Blood Pressure 155/66 H Blood Pressure Mean 95 Pulse Ox 98 Oxygen Delivery Method Room Air Positive well nourished and well developed General Appearance ED: well developed and NAD HEENT Reports moist mucous membranes normocephalic and atraumatic Eyes PERRL, EOMs intact bilaterally and conjunctivae normal Eyes Narrative: Patient with right hemianopsia with finger counting. Both upper and lower quadrants. General Eye ED: Yes normal appearance of both eyes Neck no lymphadenopathy and supple General: Negative for tenderness Chest Wall Chest: Negative for tenderness Resp normal respiratory effort and normal air movement Effort and Inspection: symmetric chest movement; Negative for respiratory distress Cardio regular rate, regular rhythm and no murmurs Peripheral Pulses: pulses 2+ throughout GI normal to inspection, nondistended, normoactive bowel sounds and non-tender Palpation: Negative for guarding or rebound tenderness present Back/Spine no CVA tenderness and no thoracic nor lumbar tenderness Extremity normal to inspection General Extremety ED: Negative for edema or tenderness General Extremity: Negative for edema Neuro Neuro Narrative: NIH of 16, both arms and legs with drop, she cannot tell me the month. She had right side hemianopsia. Her left leg with drop to bed before 5 seconds. She could not recognize and tell me objects. She had dysarthria. Sensorium / Orientation: awake and alert Skin no rashes or lesions noted and no wounds NIHSS NIHSS Initial: 1a Level of Consciousness: 1 1b LOC Questions (Score 2 if aphasic/stupor): 1 1c LOC Commands (Only score 1st attempt): 0 2 Best Gaze (If aphasic, use reflexive mvmts.): 0 3 Visual: 1 4 Facial Palsy: 0 5 Motor Arm Right (UN = amputation/fusion): 4 5 Motor Arm Left: 0 6 Motor Leg Right: 4 6 Motor Leg Left: 3 7 Limb ataxia (Only + if out of proportion): 0 9 Best Language: 1 10 Dysarthria (mute, coma=2, intubated=UN): 1 11 Extinction and Inattention (only scored if +): 0 Total Score: 16 MDM MDM MDM Narrative Medical decision making narrative: Interventions / MDM: Differential diagnosis: Right-sided weakness, CVA, conversion disorder Diagnosis considered but do not suspect: N/A My EKG interpretation: Sinus bradycardia rate of 47, no ST or T wave changes. No complete heart blocks noted. Imaging independently reviewed and interpreted by myself: CT brain: No intracranial hemorrhage. CT angiogram brain and cervical spine discussion with radiologist there is no large vessel occlusion noted. External documents reviewed: N/A Test considered but not ordered:N/A ED course: Continue stroke alert secondary NIH of at least 16. She is on Eliquis last dose this morning therefore she is not a TNK candidate. She deficits on her right side. She sent for CT head and CT angiogram head and neck. Image results and discussion with radiology were negative. Discussed with stroke neurologist on the monitor, she is not TNK candidate, without any large vessel occlusion, no thrombolytics at this time. They did recommend admission for MRI studies. We discussed does have history of conversion disorder and records. This is a possibility. Patient was reevaluated she still has right sided weakness of her right arm and leg. I discussed with hospitalist Dr. Whipple for admission. Re-evaluation: stable Disposition discussed with patient/family/significant other: Patient Case discussed with consulting clinician: N/A This note was generated with [employer] dictation software. It may contain incorrect words, spelling, and punctuation that were not noted in checking the note before signing. Lab Data Attestation: I reviewed the patient's lab results. Labs: Laboratory Results - last 24 hr 05/23/24 14:45 WBC 6.8 RBC 4.77 Hgb 14.0 Hct 41.7 MCV 87.4 MCH 29.4 MCHC 33.6 RDW Std Deviation 49.3 H RDW Coeff of Yonathan 15.5 H Plt Count 191 MPV 10.3 Immature Gran % (Auto) 0.300 Neut % (Auto) 74.2 H Lymph % (Auto) 16.1 L [place] % (Auto) 9.0 Eos % (Auto) 0.3 Baso % (Auto) 0.1 Absolute Neuts (auto) 5.0 Absolute Lymphs (auto) 1.09 Nucleated RBC % 0 PT 13.7 INR 1.0 APTT 26.5 Sodium 139 Potassium 3.7 Chloride 106 Carbon Dioxide 28.0 Anion Gap 5 BUN 19 H Creatinine 1.56 H Estim Creat Clear Calc 48.49 Est GFR (MDRD) Af Amer 44 L Est GFR (MDRD) Non-Af 36 L BUN/Creatinine Ratio 12.2 Glucose 106 Hemoglobin A1c 5.5 Calcium 8.7 Troponin I High Sens 5 TSH 0.87 Radiography Diagnostic Testing: Clinical Impression(s) from Imaging Studies Brain CT 05/23/24 14:35 IMPRESSION: Normal unenhanced CT scan of the brain. N.B. : The above Results were Read Back by Tomy Duncan MD to Justin Shahid , DO, and understanding confirmed on 05/23/2024 14:57:31 (ET). Electronically Signed: Tomy Duncan MD at 14:59 EDT , ADDENDUM: 05/23/24 1506 IMPRESSION: Normal unenhanced CT scan of the brain. N.B. : The above Results were Read Back by Tomy Duncan MD to Justin Shahid , DO, and understanding confirmed on 05/23/2024 14:57:31 (ET). Electronically Signed: Tomy Duncan MD at 14:59 EDT , Head/Neck CTA 05/23/24 14:36 IMPRESSION: Normal CTA Head and neck with contrast. No aneurysm or large vessel occlusion. No internal carotid artery stenosis. N.B. : The above Results were Read Back by Tomy Duncan MD to Justin Shahid , DO, and understanding confirmed on 05/23/2024 15:07:57 (ET). Electronically Signed: Tomy Duncan MD at 15:09 EDT , ADDENDUM: 05/23/24 1516 IMPRESSION: Normal CTA Head and neck with contrast. No aneurysm or large vessel occlusion. No internal carotid artery stenosis. N.B. : The above Results were Read Back by Tomy Duncan MD to Justin Shahid , DO, and understanding confirmed on 05/23/2024 15:07:57 (ET). Electronically Signed: Tomy Duncan MD at 15:09 EDT , Chest X-Ray 05/23/24 15:15 IMPRESSION: Cardiac enlargement. No focal infiltrate. Electronically Signed: Tomy Duncan MD at 15:58 EDT , Stroke Documentation Questions Stroke Team Activated: Yes Reviewed Inclusion/Exclusion criteria: Yes Was Patient considered for Endovascular Intervention?: No-CTA negative, determined not to be an endovascular candidate IV Thrombolytic Administered: No No contraindications from thrombolytic administration: Yes (Eliquis) Critical Care Time Critical Care Time: Yes Critical care time (excluding procedures): 30-74 minutes, Discussing w/Patient &/or Family/Route Specialist, Discussing w/Consultants, Arranging Admission or Transfer, Performing Direct Patient Care at Bedside and - (35 minutes) Discharge Plan Dx/Rx/DC Orders Clinical Impression: Acute right-sided weakness, AF (paroxysmal atrial fibrillation), Chronic anticoagulation Disposition Disposition: Acute Care Hospital [facility] Discharge Date/Time: 05/23/24 18:15
[2024-05-23 14:55] LABS: Absolute Lymphocyte Count 1.09 X10^3/uL (0.83-4.51); Basophil# 0.01 X10^3/uL; Basophil% 0.1 % (0-1); Eosinophil# 0.02 X10^3/uL; Eosinophils% 0.3 % (0-5); Hematocrit 41.7 % (37-47); Lymphocyte # 1.09 X10^3/ul (0.83-4.51); Lymphocyte % 16.1 % (19-41); Mean Corp Hgb Conc 33.6 g/dL (32-36); Mean Corpuscular Hgb 29.4 pg (27.0-32.0); Mean Corpuscular Volume 87.4 fL (81-99); Mean Platelet Vol. 10.3 fl (6.2-12.0); Monocyte# 0.61 X10^3/uL; NRBC Flagged by Analyzer 0 % (0-5); Neutrophil % 74.2 % (47-70); Platelet Count 191 K/mm3 (150-450); RBC Distribution Width CV 15.5 % (11.6-14.6); RBC Distribution Width SD 49.3 fl (35.1-43.9); Red Blood Count 4.77 M/mm3 (4.2-5.4); White Blood Count 6.8 K/mm3 (4.4-11.0)
[2024-05-23 15:05] LABS: Prothrombin Time (Protime)PT. 13.7 SECONDS (11.7-14.9)
[2024-05-23 15:06] LABS: Partial Thromboplast Time 26.5 Seconds (24.1-36.2)
--- NOTE | 2024-05-23 15:15 | RAD_ITS ---
STUDY: X-RAY CHEST REASON FOR EXAM: Female, 59 years old. Neuro deficit, acute, stroke suspected TECHNIQUE: Single AP portable view of the chest. COMPARISON: January 30, 2025 FINDINGS: The lungs are clear and expanded. There is right lower lung granuloma. There is no demonstrated pleural abnormality. There is mild cardiac enlargement. Normal mediastinum and rosita. Normal visualized pulmonary arteries. Normal visualized aortic arch and descending thoracic aorta. Normal visualized thoracic spine. Normal visualized ribs, clavicles, and shoulders. There is no demonstrated abnormality of the visualized soft tissue structures of the upper abdomen. RAD/Chest 1 View IMPRESSION: Cardiac enlargement. No focal infiltrate. Electronically Signed: Tomy Duncan MD at 15:58 EDT ,
[2024-05-23 15:47] LABS: Anion Gap 5 (5-15); BUN 19 mg/dL (7-18); BUN/Creat Ratio 12.2 RATIO (10-20); Calcium,Total 8.7 mg/dL (8.5-10.1); Chloride 106 mmol/L (98-107); Creatinine, Serum 1.56 mg/dL (0.55-1.02); EST Glomerular Filtration Rate 36 mL/min (>60); Est Glom Filt Rate - Afr Amer 44 mL/min (>60); Estimated Creatinine Clearance 48.49 ml/min; Glucose 106 mg/dL (74-106); Potassium 3.7 mmol/L (3.5-5.1); Sodium Level 139 mmol/L (136-145); Troponin-I HS 5 pg/mL (3.0-54.0)
--- NOTE | 2024-05-23 16:30 | PCM.HP.STD ---
HPI - General General Date of Admission: 05/23/24 Date of Service: 05/23/24 Chief Complaint: Altered mental status HPI Narrative NIGHAT TIMMONS, is a 59 F who presented to [facility] ED on 05/23/2024 with reported altered mental status. On arrival here, was noted to have strokelike symptoms by nursing staff including inability to recommend subjects and reported weakness of both arms and legs so stroke alert was called. Initial NIHSS score of 16. CT brain and CTA head/neck were unremarkable. Evaluated by teleneurology who reported improving NIHSS score, but they recommended admission for further evaluation for stroke. Hospitalist was then contacted for admission. I saw patient at bedside in the ED. Patient was seen shortly before she was being taken over to have her MRI brain done. She was making appropriate eye contact with me and answering questions appropriately for me. She denied any significant arm or leg weakness currently, much improved from earlier. She did remain fatigued appearing. She denies any fevers or chills. No other acute concerns. Patient notably has history of schizophrenia and conversion disorder with abnormal movements. Family was concerned that her symptoms could be secondary to her conversion disorder. However, patient was reportedly worse than her baseline so she was admitted for further management. [facility] Medical History PONV (postoperative nausea and vomiting) Adult failure to thrive Contusion of hip Back contusion Difficulty in walking Impingement of left shoulder Enchondroma of left humerus History of Holter monitoring Loss of hearing Wears glasses Bipolar disorder History of steroid therapy History of renal disease Restless legs Sleep apnea Chronic cough History of skin cancer Disease of gingiva due to infection COVID-19 virus infection Degenerative tear of meniscus of left knee Osteoarthritis of left knee Cyclic vomiting syndrome Colitis Pain of left calf Kidney disease Sarcoidosis Morbid obesity Debility Myositis Stroke/cerebrovascular accident TIA (transient ischemic attack) History of atrial fibrillation Chest pain Diarrhea Bilateral flank pain Dysuria Oral candidiasis Abdominal pain Bilateral foot pain Venous insufficiency of both lower extremities History of abnormal cervical Pap smear Wears dentures Post-menopausal Cancer Marijuana use Open wound Thyroid disease Walker as ambulation aid Arthritis Bladder disease High cholesterol Easy bruising Excessive bleeding Back pain Injury of head and neck Blackout Syncope Seizures Dietary restriction Difficulty chewing History of hiatal hernia History of ulceration History of IBS Gastric reflux Smoker CPAP (continuous positive airway pressure) dependence Shortness of breath on exertion Leg cramps History of edema History of echocardiogram Hx of tilt table evaluation History of stress test Cardiology follow-up encounter History of CHF (congestive heart failure) Family history of colon cancer Allergic rhinitis Osteoarthritis of right hip Nonrheumatic aortic (valve) insufficiency Non-rheumatic mitral regurgitation Heart failure Intertriginous dermatitis associated with moisture Psychosis Orthostatic hypotension Osteoarthritis DAPHNE (obstructive sleep apnea) Schizo NEC, chrn/exacerb Peripheral artery disease Pulmonary embolism Stroke Hypothyroidism HTN (hypertension) PAF (paroxysmal atrial fibrillation) Hypokalemia Hyponatremia Arthralgia of right hip Hip dislocation, right Enlarged aorta CKD (chronic kidney disease) Bipolar 1 disorder Cyst Non-convulsive status epilepticus Migraines Asthma Aortic valve insufficiency Hypertensive crisis without congestive heart failure Left arm swelling Conversion disorder with abnormal movement Gastritis Convulsion, non-epileptic Schizophrenia COPD, mild Depression Home Medications ?Medication ?Instructions ?Recorded ?Last Taken ?Type nitroglycerin 0.4 mg sublingual 0.4 mg sublingual PRN PRN CHEST 07/09/23 Unknown Rx tablet PAIN #25 tabs acetaminophen 325 mg capsule 325 mg PO Q4H PRN pain 01/04/24 03/24/24 History cyclobenzaprine 10 mg tablet 10 mg PO Q8H PRN spasms 01/04/24 03/23/24 History gabapentin 300 mg capsule 300 mg PO TID nerve 01/04/24 05/23/24 History methocarbamol 750 mg tablet 750 mg PO Q8H PRN pain 01/04/24 05/22/24 History sennosides 8.6 mg-docusate sodium 1 tab-cap PO BID constipation 01/04/24 03/23/24 History 50 mg tablet (Senna with Docusate Sodium) albuterol sulfate 90 mcg/actuation 2 puff inhalation Q4H PRN 01/11/24 05/23/24 Rx aerosol inhaler shortness of breath or wheezing #8.5 grams aripiprazole 15 mg tablet 15 mg PO DAILY bipolar 01/11/24 05/23/24 History carboxymethylcellulose sodium 0.5 1 drp ophthalmic (eye) BID eyes 01/11/24 05/23/24 History % eye drops lidocaine 5 % topical patch 3 patch topical Q24H pain 01/11/24 05/22/24 History trazodone 100 mg tablet 100 mg PO QHS sleep 01/11/24 03/23/24 History furosemide 40 mg tablet 40 mg PO DAILY #30 tabs 02/01/24 05/23/24 Rx spironolactone 25 mg tablet 25 mg PO DAILY #30 tabs 02/01/24 03/23/24 Rx fluticasone propionate 50 1 spray intranasal Q12H allergies 02/29/24 05/23/24 Rx mcg/actuation nasal #16 grams spray,suspension levothyroxine 50 mcg tablet 50 mcg PO DAILY thyr #90 tabs 02/29/24 05/23/24 Rx carvedilol 3.125 mg tablet 3.125 mg PO BID #60 TABLETS 03/26/24 05/23/24 Rx cholecalciferol (vitamin D3) 50 50 mcg PO DAILY vit #90 caps 03/26/24 05/23/24 Rx mcg (2,000 unit) capsule cyanocobalamin (vitamin B-12) 500 500 mcg PO DAILY vit #90 tabs 03/26/24 05/23/24 Rx mcg tablet losartan 50 mg tablet 50 mg PO DAILY bp #90 tabs 03/26/24 05/23/24 Rx budesonide-formoterol HFA 160 2 inh inhalation DAILY asthma #3 ea 03/31/24 05/23/24 Rx mcg-4.5 mcg/actuation aerosol inhaler (Symbicort) melatonin 10 mg tablet 10 mg PO QHS for insomnia #90 04/24/24 05/22/24 Rx TABLETS montelukast 10 mg tablet 10 mg PO QHS for allergies #30 05/06/24 05/22/24 Rx TABLETS polyethylene glycol 3350 17 17 g PO QDAY PRN constipation #850 05/14/24 Unknown Rx gram/dose oral powder grams tiotropium bromide 1.25 2 puff PO DAILY PRN for asthma #4 05/19/24 Unknown Rx mcg/actuation mist for inhalation GMS (Spiriva Respimat) apixaban 5 mg tablet (Eliquis) 5 mg PO BID #60 tabs 05/21/24 05/23/24 Rx guaifenesin 600 mg tablet, 600 mg PO BID 05/21/24 05/23/24 History extended release 12 hr (Mucus Relief ER) hydroxyzine pamoate 100 mg capsule 100 mg PO QHS 05/21/24 05/22/24 History mepolizumab 100 mg/mL subcutaneous 100 mg subcut Q4W 05/21/24 05/23/24 History syringe (Nucala) tizanidine 2 mg tablet 4 mg PO TID 05/21/24 05/23/24 History omeprazole 40 mg capsule,delayed 40 mg PO DAILY #30 caps 05/22/24 05/23/24 Rx release loratadine 10 mg tablet 10 mg PO QHS for allergies 05/23/24 05/22/24 History Allergy/AdvReac Type Severity Reaction Status Date / Time adhesive tape Allergy Rash Verified 05/23/24 14:34 atropine sulfate (From Allergy Hives Verified 05/23/24 14:34 ) codeine phosphate (From Allergy breathing Verified 05/23/24 14:34 Tylenol-Codeine #3) problems divalproex sodium (From Allergy Unknown Verified 05/23/24 14:34 Depakote) guaifenesin Allergy Itching Verified 05/23/24 14:34 hydrocodone Allergy Itching Verified 05/23/24 14:34 hydromorphone HCl (From Allergy facial Verified 05/23/24 14:34 Dilaudid) blisters,itching hyoscyamine sulfate (From Allergy Hives Verified 05/23/24 14:34 ) latex Allergy Rash Verified 05/23/24 14:34 pantoprazole sodium (From Allergy Rash Verified 05/23/24 14:34 Protonix) phenobarbital (From ) Allergy Hives Verified 05/23/24 14:34 promethazine HCl (From Allergy Anaphylaxis Verified 05/23/24 14:34 Phenergan) ramipril Allergy Unknown Verified 05/23/24 14:34 scopolamine hydrobromide Allergy Hives Verified 05/23/24 14:34 (From ) tramadol Allergy Itching Verified 05/23/24 14:34 ziprasidone mesylate (From Allergy Unknown Verified 05/23/24 14:34 Geodon) amlodipine AdvReac Vomiting Verified 05/23/24 14:34 levofloxacin (From Levaquin) AdvReac Itching Verified 05/23/24 14:34 metoclopramide (From Reglan) AdvReac Other Verified 05/23/24 14:34 Sulfa (Sulfonamide AdvReac Vomiting Verified 05/23/24 14:34 Antibiotics) ziprasidone HCl (From Geodon) AdvReac tremors Verified 05/23/24 14:34 Family History Sister Myocardial infarction Colon cancer Mother Hypertension Arthritis Brain aneurysm Heart disease High cholesterol Sister Colon cancer Heart disease High cholesterol Hypertension Arthritis Grandmother Arthritis Diabetes CVA (cerebral vascular accident) Father Heart disease High cholesterol Hypertension Surgical History History of back surgery (~12/2023) Previous back surgery Cataract extraction status History of esophagogastroduodenoscopy (EGD) Hx of colonoscopy History of laparoscopic cholecystectomy History of uterine suspension procedure S/P carpal tunnel release bladder sling left foot Social History household members: none number of children: 4 current occupational status: unemployed history of recent travel: No Smoking Status: Former smoker quit date: 11/12/23 Tobacco: How many years used: 26 Electronic Cigarette Use: not used quit status: considering quitting alcohol intake: never substance use type: does not use caffeine: Yes Type: coffee what type of physical activity do you participate in: none seatbelt use: never do you feel safe at home: Yes additional social history: single ROS Constitutional Constitutional: Reports fatigue; Denies chills, fever(s) or weakness Eyes Eyes: Denies change in vision Cardiovascular Cardiovascular: Denies chest pain Respiratory/Chest Respiratory/Chest: Denies shortness of breath at rest Gastrointestinal Gastrointestinal: Denies abdominal pain Neurologic Neurologic: Denies dizziness, focal weakness or headache(s) Vital Signs Vital Signs Vital Signs: 05/23/24 14:28 05/23/24 14:35 05/23/24 14:40 Temperature 96.8 F L Temperature Source Temporal Pulse Rate 51 L 51 L Respiratory Rate 15 15 Blood Pressure 135/59 H 135/59 H Blood Pressure Mean 84 84 Pulse Ox 97 97 Oxygen Delivery Method Room Air Room Air Room Air 05/23/24 15:05 05/23/24 15:28 05/23/24 15:30 Temperature Temperature Source Pulse Rate 50 L 47 L 46 L Respiratory Rate 11 L 18 18 Blood Pressure 168/110 H 161/98 H 160/51 H Blood Pressure Mean 129 119 87 Pulse Ox 95 95 97 Oxygen Delivery Method Room Air Room Air Room Air 05/23/24 16:00 05/23/24 16:00 05/23/24 16:22 Temperature 98.0 F Temperature Source Pulse Rate 52 L 52 L 74 Respiratory Rate 16 16 18 Blood Pressure 151/63 H 151/63 H 169/95 H Blood Pressure Mean 92 92 119 Pulse Ox 97 92 Oxygen Delivery Method Room Air Weight Weight: 125.1 kg Body Mass Index (BMI) 50.4 Physical Exam Const alert and no apparent distress Constitutional Narrative: Middle-age female, morbidly obese, mildly fatigued appearing, 80 appropriate eye contact and answering questions with short appropriate responses, laying back comfortably in bed, in no acute distress. General Appearance: cooperative and comfortable HEENT normocephalic, head/scalp atraumatic, hearing grossly normal bilaterally, nasal mucous membranes and turbinates normal and moist oral mucous membranes Eyes PERRL, EOMs intact bilaterally and conjunctivae normal Neck full ROM Chest inspection of chest normal Resp normal respiratory effort, normal air movement, no use of accessory muscles and clear to auscultation bilaterally Cardio regular rate, regular rhythm, no murmurs and peripheral pulses 2+ throughout GI normal to inspection, nondistended, normoactive bowel sounds, soft to palpation, non-tender and non-distended Back/Spine normal ROM Extremity normal to inspection, full ROM and no pedal edema Skin no rashes or lesions noted Neuro moves all extremities and no focal motor deficits Results Lab / Micro Data 05/23/24 14:45 05/23/24 14:45 Labs: Laboratory Results - last 24 hr 05/23/24 14:45: WBC 6.8, RBC 4.77, Hgb 14.0, Hct 41.7, MCV 87.4, MCH 29.4, MCHC 33.6, RDW Std Deviation 49.3 H, RDW Coeff of Yonathan 15.5 H, Plt Count 191, MPV 10.3, Immature Gran % (Auto) 0.300, Neut % (Auto) 74.2 H, Lymph % (Auto) 16.1 L, Stanley % (Auto) 9.0, Eos % (Auto) 0.3, Baso % (Auto) 0.1, Absolute Neuts (auto) 5.0, Absolute Lymphs (auto) 1.09, Nucleated RBC % 0, PT 13.7, INR 1.0, APTT 26.5, Sodium 139, Potassium 3.7, Chloride 106, Carbon Dioxide 28.0, Anion Gap 5, BUN 19 H, Creatinine 1.56 H, Estim Creat Clear Calc 48.49, Est GFR (MDRD) Af Amer 44 L, Est GFR (MDRD) Non-Af 36 L, BUN/Creatinine Ratio 12.2, Glucose 106, Calcium 8.7, Troponin I High Sens 5 Imaging Radiology Impression Brain CT 05/23/24 14:35 IMPRESSION: Normal unenhanced CT scan of the brain. N.B. : The above Results were Read Back by Tomy Duncan MD to Justin Shahid DO, and understanding confirmed on 05/23/2024 14:57:31 (ET). Electronically Signed: Tomy Duncan MD at 14:59 EDT Reading Location ID and State: [address] [place] [address] , Service support , ADDENDUM: 05/23/24 1506 IMPRESSION: Normal unenhanced CT scan of the brain. N.B. : The above Results were Read Back by Tomy Duncan MD to Justin Shahid DO, and understanding confirmed on 05/23/2024 14:57:31 (ET). Electronically Signed: Tomy Duncan MD at 14:59 EDT Reading Location ID and State: [facility] / [place] , Service support , Head/Neck CTA 05/23/24 14:36 IMPRESSION: Normal CTA Head and neck with contrast. No aneurysm or large vessel occlusion. No internal carotid artery stenosis. N.B. : The above Results were Read Back by Tomy Duncan MD to Justin Shahid DO, and understanding confirmed on 05/23/2024 15:07:57 (ET). Electronically Signed: Tomy Duncan MD at 15:09 EDT Reading Location ID and State: [facility] / [place] , Service support , ADDENDUM: 05/23/24 1516 IMPRESSION: Normal CTA Head and neck with contrast. No aneurysm or large vessel occlusion. No internal carotid artery stenosis. N.B. : The above Results were Read Back by Tomy Duncan MD to Justin Shahid DO, and understanding confirmed on 05/23/2024 15:07:57 (ET). Electronically Signed: Tomy Duncan MD at 15:09 EDT , Chest X-Ray 05/23/24 15:15 IMPRESSION: Cardiac enlargement. No focal infiltrate. Electronically Signed: Tomy Duncan MD at 15:58 EDT , Assessment & Plan Assessment/Plan (1) Stroke-like symptoms: (2) Altered mental status: (3) AF (paroxysmal atrial fibrillation): (4) Chronic anticoagulation: PLAN: Plan Patient is a 59-year-old female who presented to [facility] ED on 05/23/2024 with altered mental status and strokelike symptoms. 1. Strokelike symptoms with altered mental status, CVA rule out ? Admit under observation status to PCU. Neurology consulted. Unclear etiology of symptoms. CT brain and CTA head/neck normal. Orders placed per stroke protocol order set. MRI brain ordered. Echo ordered. Lipid panel, A1c, TSH ordered. PT/OT/case management consulted. 2. Bradycardia, history of paroxysmal A-fib on Eliquis ? Patient mildly hypertensive since admission but has persistently been bradycardic from mid 40s to mid 50s since arrival here. EKG showed sinus bradycardia. Unclear etiology for bradycardia but patient's blood pressure notably stable to hypertensive. Holding home Eliquis for now given stroke workup as above. Will hold patient's home beta-karen for now. Monitor heart rate closely. 3. History of schizophrenia with conversion disorder ? Continue home aripiprazole. Recommend outpatient follow-up with PCP and/or psychiatrist shortly after discharge. Chronic medical conditions: ? Morbid obesity: BMI 47 on admit. Complicates hospital course, care and prognosis. ? COPD/asthma: Stable on room air, not in acute exacerbation. Continue home inhalers. ? Hypertension: Holding home losartan and spironolactone for permissive hypertension, restart when able. ? Hypothyroidism: TSH normal on admit. Continue home Synthroid. ? Chronic pain with neuropathy, insomnia: Will continue home gabapentin to start tomorrow. Continue home trazodone at night. Holding home hydroxyzine and tizanidine given concern that these could worsen patient's altered mentation, restart as needed. ? GERD: Continue home PPI. DVT prophylaxis: Not indicated, on Eliquis CODE STATUS: Full code, unverified Expected disposition: TBD Total clinical time spent by myself addressing the patient's medical issues, reviewing all the data, and collaborating with patient's care team: 55 minutes. Charges/Coding Visit Charges Inpatient E&M: 38782 Init Hosp L2
--- NOTE | 2024-05-23 16:42 | MRI_ITS ---
STUDY: MRI BRAIN WITHOUT CONTRAST REASON FOR EXAM: Female, 59 years old. CVA r/o TECHNIQUE: Standardized multiplanar fat and water weighted pulse sequences were obtained. COMPARISON: CT and CTA brain from today. MR brain May 23, 2021. FINDINGS: Normal size of the ventricles and extra-axial spaces for the patient''s age. Moderate multifocal T2 lengthening throughout the varma radiata measuring up to 8 mm on the left. This demonstrates increase in size and number. This appears unusual for age. There is no evidence for recent intracranial ischemia or other cause of cytotoxic edema on diffusion weighted imaging (DWI). Normal bilateral basal ganglia. Normal thalami. There is no extra-axial fluid accumulation. Normal flow voids within the major intracranial circulation suggesting patency by spin echo criteria. Normal sella turcica, pituitary gland, infundibular stalk, optic chiasm and hypothalamus. Normal tectal plate and pineal gland. Normal midbrain, molina and medulla. Normal cerebellum. Normal basal cisterns. Normal bilateral temporal bones. Normal bilateral internal auditory canals. No demonstrated orbital abnormality, within the constraints of a routine brain study. Normal visualized paranasal sinuses. Normal calvarium and skull base. Normal visualized soft tissue structures. Normal visualized upper cervical spine. MRI/Brain without Contrast IMPRESSION: Increased Moderate multifocal white matter lesions unusual for age. Differential considerations include not only microangiopathic changes but demyelination etc. Clinical correlation and follow-up recommended. Electronically Signed: Kal Clark MD at 19:43 EDT ,
[2024-05-23 17:12] LABS: Thyroid Stim Hormone (TSH) 0.87 uIU/mL (0.358-3.74)
[2024-05-23 17:15] LABS: Hemoglobin A1c 5.5 % (3.8-5.6)
--- NOTE | 2024-05-23 19:02 | NURSING ---
Reviewed and agreed on charting with Roger Somers RN
[2024-05-23] MEDS: Albuterol 2.5 MG/3 ML VIAL.NEB. INHALATION (20:03)
[2024-05-23] MEDS: Budesonide Respules 0.5 MG/2 ML AMPUL.NEB. INHALATION (20:03)
[2024-05-23] MEDS: Senna/Docusate Sodium 1 Tablet PO (22:09)
[2024-05-23] MEDS: Montelukast 10 MG Tablet PO (22:10)
[2024-05-23] MEDS: Glycerin/Hypromellose/PEG400 15 ml Bottle 1 DRP EACH EYE (22:10)
[2024-05-23] MEDS: Fluticasone 0.05% 1 SPRAY NASAL.SRY NASAL (22:11)
[2024-05-24 02:00] VITALS: BP 122/52; PULSE 58; RESP 16; TEMP 36.6; O2SAT 100
[2024-05-24 04:50] VITALS: BMI 47.5
[2024-05-24 06:00] VITALS: BP 118/52; PULSE 65; RESP 16; TEMP 36.8; O2SAT 97
[2024-05-24] MEDS: Levothyroxine 50 MCG Tablet PO (06:05)
[2024-05-24] MEDS: Gabapentin 300 MG Capsule PO ×2 (06:05→14:36)
[2024-05-24 07:46] VITALS: PULSE 59; RESP 20; O2SAT 97
[2024-05-24] MEDS: Albuterol 2.5 MG/3 ML VIAL.NEB. INHALATION ×2 (07:46→13:25)
[2024-05-24] MEDS: Budesonide Respules 0.5 MG/2 ML AMPUL.NEB. INHALATION (07:46)
[2024-05-24 07:55] LABS: Anion Gap 5 (5-15); BUN 15 mg/dL (7-18); BUN/Creat Ratio 11.4 RATIO (10-20); Calcium,Total 8.5 mg/dL (8.5-10.1); Chloride 110 mmol/L (98-107); Creatinine, Serum 1.32 mg/dL (0.55-1.02); EST Glomerular Filtration Rate 44 mL/min (>60); Est Glom Filt Rate - Afr Amer 53 mL/min (>60); Estimated Creatinine Clearance 57.32 ml/min; Glucose 83 mg/dL (74-106); Potassium 4.1 mmol/L (3.5-5.1); Sodium Level 138 mmol/L (136-145)
--- NOTE | 2024-05-24 08:24 | STROKE.CONS ---
Assessment and Plan: Stroke Assessment/Plan NIGHAT TIMMONS is a 59 F with a history of DAPHNE, TIA, migraine, Afib on eliquis, CHF, HLD, conversion disorder who presents with altered mental status. She reported changes in her vision as she was seeing from a kaleidoscope, difficulty with expression, right sided weakness. Initial NIHSS on telestroke was 16. Not a lytic candidate as she is on Eliquis. she ius getting better and her vision symptoms, weakness, MACK are resolved. Neurological examination shows Decreased sensation on right side. Neuroimaging shows MRI Brain Negative for acute stroke. CTA head and neck negative. Likely had a complicated migraine. Plan 1. Continue Eliquis 2. Continue home medications 3. PT,OT evaluation Thanks for the consultation Spent 35 minutes in evaluation and management of this patient. HPI Consult Data Date of Consult: 05/24/24 HPI Narrative HPI Narrative: NIGHAT TIMMONS, is a 59 F with a history of DAPHNE, TIA, migraine, Afib on eliquis, CHF, HLD, conversion disorder who presents with altered mental status. She reported changes in her vision as she was seeing from a kaleidoscope, difficulty with expression, right sided weakness. Patient notably has history of schizophrenia and conversion disorder with abnormal movements. Family was concerned that her symptoms could be secondary to her conversion disorder. However, patient was reportedly worse than her baseline so she was admitted for further management. Initial NIHSS score of 16. CT brain and CTA head/neck were unremarkable. Evaluated by teleneurology who reported improving NIHSS score, and not a lytic candidate as she is on eliquis. Admitted for stroke w/up. She is getting better. This am feels her MACK is better. Her vision disturbance is resolved. Her weakness is better. [facility] Medical History PONV (postoperative nausea and vomiting) Adult failure to thrive Contusion of hip Back contusion Difficulty in walking Impingement of left shoulder Enchondroma of left humerus History of Holter monitoring Loss of hearing Wears glasses Bipolar disorder History of steroid therapy History of renal disease Restless legs Sleep apnea Chronic cough History of skin cancer Disease of gingiva due to infection COVID-19 virus infection Degenerative tear of meniscus of left knee Osteoarthritis of left knee Cyclic vomiting syndrome Colitis Pain of left calf Kidney disease Sarcoidosis Morbid obesity Debility Myositis Stroke/cerebrovascular accident TIA (transient ischemic attack) History of atrial fibrillation Chest pain Diarrhea Bilateral flank pain Dysuria Oral candidiasis Abdominal pain Bilateral foot pain Venous insufficiency of both lower extremities History of abnormal cervical Pap smear Wears dentures Post-menopausal Cancer Marijuana use Open wound Thyroid disease Walker as ambulation aid Arthritis Bladder disease High cholesterol Easy bruising Excessive bleeding Back pain Injury of head and neck Blackout Syncope Seizures Dietary restriction Difficulty chewing History of hiatal hernia History of ulceration History of IBS Gastric reflux Smoker CPAP (continuous positive airway pressure) dependence Shortness of breath on exertion Leg cramps History of edema History of echocardiogram Hx of tilt table evaluation History of stress test Cardiology follow-up encounter History of CHF (congestive heart failure) Family history of colon cancer Allergic rhinitis Osteoarthritis of right hip Nonrheumatic aortic (valve) insufficiency Non-rheumatic mitral regurgitation Heart failure Intertriginous dermatitis associated with moisture Psychosis Orthostatic hypotension Osteoarthritis DAPHNE (obstructive sleep apnea) Schizo NEC, chrn/exacerb Peripheral artery disease Pulmonary embolism Stroke Hypothyroidism HTN (hypertension) PAF (paroxysmal atrial fibrillation) Hypokalemia Hyponatremia Arthralgia of right hip Hip dislocation, right Enlarged aorta CKD (chronic kidney disease) Bipolar 1 disorder Cyst Non-convulsive status epilepticus Migraines Asthma Aortic valve insufficiency Hypertensive crisis without congestive heart failure Left arm swelling Conversion disorder with abnormal movement Gastritis Convulsion, non-epileptic Schizophrenia COPD, mild Depression Home Medications ?Medication ?Instructions ?Recorded ?Last Taken ?Type nitroglycerin 0.4 mg sublingual 0.4 mg sublingual PRN PRN CHEST 07/09/23 Unknown Rx tablet PAIN #25 tabs acetaminophen 325 mg capsule 325 mg PO Q4H PRN pain 01/04/24 03/24/24 History cyclobenzaprine 10 mg tablet 10 mg PO Q8H PRN spasms 01/04/24 03/23/24 History gabapentin 300 mg capsule 300 mg PO TID nerve 01/04/24 05/23/24 History methocarbamol 750 mg tablet 750 mg PO Q8H PRN pain 01/04/24 05/22/24 History sennosides 8.6 mg-docusate sodium 1 tab-cap PO BID constipation 01/04/24 03/23/24 History 50 mg tablet (Senna with Docusate Sodium) albuterol sulfate 90 mcg/actuation 2 puff inhalation Q4H PRN 01/11/24 05/23/24 Rx aerosol inhaler shortness of breath or wheezing #8.5 grams aripiprazole 15 mg tablet 15 mg PO DAILY bipolar 01/11/24 05/23/24 History carboxymethylcellulose sodium 0.5 1 drp ophthalmic (eye) BID eyes 01/11/24 05/23/24 History % eye drops lidocaine 5 % topical patch 3 patch topical Q24H pain 01/11/24 05/22/24 History trazodone 100 mg tablet 100 mg PO QHS sleep 01/11/24 03/23/24 History furosemide 40 mg tablet 40 mg PO DAILY #30 tabs 02/01/24 05/23/24 Rx spironolactone 25 mg tablet 25 mg PO DAILY #30 tabs 02/01/24 03/23/24 Rx fluticasone propionate 50 1 spray intranasal Q12H allergies 02/29/24 05/23/24 Rx mcg/actuation nasal #16 grams spray,suspension levothyroxine 50 mcg tablet 50 mcg PO DAILY thyr #90 tabs 02/29/24 05/23/24 Rx carvedilol 3.125 mg tablet 3.125 mg PO BID #60 TABLETS 03/26/24 05/23/24 Rx cholecalciferol (vitamin D3) 50 50 mcg PO DAILY vit #90 caps 03/26/24 05/23/24 Rx mcg (2,000 unit) capsule cyanocobalamin (vitamin B-12) 500 500 mcg PO DAILY vit #90 tabs 03/26/24 05/23/24 Rx mcg tablet losartan 50 mg tablet 50 mg PO DAILY bp #90 tabs 03/26/24 05/23/24 Rx budesonide-formoterol HFA 160 2 inh inhalation DAILY asthma #3 ea 03/31/24 05/23/24 Rx mcg-4.5 mcg/actuation aerosol inhaler (Symbicort) melatonin 10 mg tablet 10 mg PO QHS for insomnia #90 04/24/24 05/22/24 Rx TABLETS montelukast 10 mg tablet 10 mg PO QHS for allergies #30 05/06/24 05/22/24 Rx TABLETS polyethylene glycol 3350 17 17 g PO QDAY PRN constipation #850 05/14/24 Unknown Rx gram/dose oral powder grams tiotropium bromide 1.25 2 puff PO DAILY PRN for asthma #4 08/05/24 Unknown Rx mcg/actuation mist for inhalation GMS (Spiriva Respimat) apixaban 5 mg tablet (Eliquis) 5 mg PO BID #60 tabs 05/21/24 05/23/24 Rx guaifenesin 600 mg tablet, 600 mg PO BID 05/21/24 05/23/24 History extended release 12 hr (Mucus Relief ER) hydroxyzine pamoate 100 mg capsule 100 mg PO QHS 05/21/24 05/22/24 History mepolizumab 100 mg/mL subcutaneous 100 mg subcut Q4W 05/21/24 05/23/24 History syringe (Nucala) tizanidine 2 mg tablet 4 mg PO TID 05/21/24 05/23/24 History omeprazole 40 mg capsule,delayed 40 mg PO DAILY #30 caps 05/22/24 05/23/24 Rx release loratadine 10 mg tablet 10 mg PO QHS for allergies 05/23/24 05/22/24 History Allergy/AdvReac Type Severity Reaction Status Date / Time adhesive tape Allergy Rash Verified 05/23/24 14:34 atropine sulfate (From Allergy Hives Verified 05/23/24 14:34 ) codeine phosphate (From Allergy breathing Verified 05/23/24 14:34 Tylenol-Codeine #3) problems divalproex sodium (From Allergy Unknown Verified 05/23/24 14:34 Depakote) guaifenesin Allergy Itching Verified 05/23/24 14:34 hydrocodone Allergy Itching Verified 05/23/24 14:34 hydromorphone HCl (From Allergy facial Verified 05/23/24 14:34 Dilaudid) blisters,itching hyoscyamine sulfate (From Allergy Hives Verified 05/23/24 14:34 ) latex Allergy Rash Verified 05/23/24 14:34 pantoprazole sodium (From Allergy Rash Verified 05/23/24 14:34 Protonix) phenobarbital (From ) Allergy Hives Verified 05/23/24 14:34 promethazine HCl (From Allergy Anaphylaxis Verified 05/23/24 14:34 Phenergan) ramipril Allergy Unknown Verified 05/23/24 14:34 scopolamine hydrobromide Allergy Hives Verified 05/23/24 14:34 (From ) tramadol Allergy Itching Verified 05/23/24 14:34 ziprasidone mesylate (From Allergy Unknown Verified 05/23/24 14:34 Geodon) amlodipine AdvReac Vomiting Verified 05/23/24 14:34 levofloxacin (From Levaquin) AdvReac Itching Verified 05/23/24 14:34 metoclopramide (From Reglan) AdvReac Other Verified 05/23/24 14:34 Sulfa (Sulfonamide AdvReac Vomiting Verified 05/23/24 14:34 Antibiotics) ziprasidone HCl (From Geodon) AdvReac tremors Verified 05/23/24 14:34 Family History Sister Myocardial infarction Colon cancer Mother Hypertension Arthritis Brain aneurysm Heart disease High cholesterol Sister Colon cancer Heart disease High cholesterol Hypertension Arthritis Grandmother Arthritis Diabetes CVA (cerebral vascular accident) Father Heart disease High cholesterol Hypertension Surgical History History of back surgery (~12/2023) Previous back surgery Cataract extraction status History of esophagogastroduodenoscopy (EGD) Hx of colonoscopy History of laparoscopic cholecystectomy History of uterine suspension procedure S/P carpal tunnel release bladder sling left foot Social History household members: none number of children: 4 current occupational status: unemployed history of recent travel: No Smoking Status: Former smoker quit date: 11/12/23 Tobacco: How many years used: 26 Electronic Cigarette Use: not used quit status: considering quitting alcohol intake: never substance use type: does not use caffeine: Yes Type: coffee what type of physical activity do you participate in: none seatbelt use: never do you feel safe at home: Yes additional social history: single Vital Signs Vital Signs Vital Signs: 05/23/24 14:28 05/23/24 14:35 05/23/24 14:40 Temperature 96.8 F L Temperature Source Temporal Pulse Rate 51 L 51 L Respiratory Rate 15 15 Respiratory Effort Respiratory Depth Respiratory Pattern Blood Pressure 135/59 H 135/59 H Blood Pressure Mean 84 84 Blood Pressure Source Blood Pressure Position Blood Pressure Location Pulse Ox 97 97 Oxygen Delivery Method Room Air Room Air Room Air Oxygen Flow Rate (L/min) 08/09/24 15:05 05/23/24 15:28 05/23/24 15:30 Temperature Temperature Source Pulse Rate 50 L 47 L 46 L Respiratory Rate 11 L 18 18 Respiratory Effort Respiratory Depth Respiratory Pattern Blood Pressure 168/110 H 161/98 H 160/51 H Blood Pressure Mean 129 119 87 Blood Pressure Source Blood Pressure Position Blood Pressure Location Pulse Ox 95 95 97 Oxygen Delivery Method Room Air Room Air Room Air Oxygen Flow Rate (L/min) 05/23/24 16:00 05/23/24 16:00 05/23/24 16:22 Temperature 98.0 F Temperature Source Pulse Rate 52 L 52 L 74 Respiratory Rate 16 16 18 Respiratory Effort Respiratory Depth Respiratory Pattern Blood Pressure 151/63 H 151/63 H 169/95 H Blood Pressure Mean 92 92 119 Blood Pressure Source Blood Pressure Position Blood Pressure Location Pulse Ox 97 92 Oxygen Delivery Method Room Air Oxygen Flow Rate (L/min) 05/23/24 16:30 05/23/24 17:00 05/23/24 18:01 Temperature 97.7 F L Temperature Source Oral Pulse Rate 47 L 51 L 56 L Respiratory Rate 16 16 16 Respiratory Effort Respiratory Depth Respiratory Pattern Blood Pressure 155/66 H 169/75 H 129/45 H Blood Pressure Mean 95 106 73 Blood Pressure Source Monitor Blood Pressure Position Semi-Fowlers Blood Pressure Location Right Forearm Pulse Ox 98 97 100 Oxygen Delivery Method Room Air Room Air Room Air Oxygen Flow Rate (L/min) 05/23/24 20:10 05/23/24 22:00 05/23/24 22:00 Temperature 97.8 F Temperature Source Oral Pulse Rate 54 L 54 L Respiratory Rate 18 16 Respiratory Effort Normal Non-Labored Respiratory Depth Normal Respiratory Pattern Normal Normal Blood Pressure 129/50 H Blood Pressure Mean 76 Blood Pressure Source Monitor Blood Pressure Position Semi-Fowlers Blood Pressure Location Right Forearm Pulse Ox 96 Oxygen Delivery Method Nasal Cannula Nasal Cannula Oxygen Flow Rate (L/min) 2 2 05/23/24 22:00 05/24/24 02:00 05/24/24 02:00 Temperature 97.8 F Temperature Source Oral Pulse Rate 58 L Respiratory Rate 16 Respiratory Effort Normal Non-Labored Respiratory Depth Normal Respiratory Pattern Normal Blood Pressure 122/52 H Blood Pressure Mean 75 Blood Pressure Source Monitor Blood Pressure Position Semi-Fowlers Blood Pressure Location Right Forearm Pulse Ox 96 100 Oxygen Delivery Method Nasal Cannula Nasal Cannula Nasal Cannula Oxygen Flow Rate (L/min) 2 2 2 05/24/24 06:00 Temperature 98.2 F Temperature Source Oral Pulse Rate 65 Respiratory Rate 16 Respiratory Effort Respiratory Depth Respiratory Pattern Blood Pressure 118/52 L Blood Pressure Mean 74 Blood Pressure Source Monitor Blood Pressure Position Supine Blood Pressure Location Right Forearm Pulse Ox 97 Oxygen Delivery Method Nasal Cannula Oxygen Flow Rate (L/min) 2 Weight Weight: 121.7 kg Body Mass Index (BMI) 47.5 EEG Results Procedure Details EEG Procedure Details: NIGHAT TIMMONS is a 59 year old F with a past medical history of , who presents for evaluation of Electroencephalogram on DATE at TIME NIHSS NIHSS Nursing Documentation NIHSS Nursing Documentation: NIHSS: Ischemic Stroke/TIA Start: 05/23/24 18:11 Text: For PCU Patients: NIH and Neuro Check every 4 Status: Active hours, PRN and with change in RN caregiver. Freq: [id number] Protocol: Activity Type Activity Date Activity User E-sign Co-sign Detail Recorded Client Recorded Date Recorded By Document 05/24/24 06:00 MNT desktop 05/24/24 06:07 MNT 05/24/24 06:00 NIH Stroke Scale [NIHSS] A score of 0 is normal or asymptomatic . Total possible score is 42. Inpatient: RN or Physician to activate a stroke alert for onset of new stroke symptoms or with NIHSS increase >/= 3 points. Following change in neurological status, NIHSS will be performed per physician order or more frequently PRN. -1a. Level of Consciousness Alert; keenly responsive -1b. LOC Questions Answers BOTH questions correctly. -1c. LOC Commands Performs both tasks correctly . -2. Best Gaze Normal -3. Visual Partial hemianopia -4. Facial Palsy Normal symmetrical movements -5a. Left Arm No drift; arm holds 90 (or 45 ) degrees for full 10 seconds -5b. Right Arm Some effort against gravity ; -6a. Left Leg No drift; leg holds 30-degree position for full 5 seconds -6b. Right Leg Some effort against gravity ; -7. Limb Ataxia Present in 1 limb -8. Sensory Mild-to- moderate sensory loss; -9. Best Language No aphasia; normal -10. Dysarthria Normal -11. Extinction and Inattention No abnormality -Total 7 Query Text:A score of 0 is normal or asymptomatic. Total possible score is 42 . ED: Notify Physician for NIHSS increase by > / = 3 points. Inpatient: RN or Physician to activate a stroke alert for NIHSS increase of > / = 3 points. Coma Scale [Assess] -Eye Opening Spontaneous -Motor Obeys Commands -Verbal Oriented [Total] -Coma Scale Total 15 NIHSS 1a. Level of Consciousness: Alert; keenly responsive 1b. LOC Questions: Answers BOTH questions correctly. 1c. LOC Commands: Performs both tasks correctly. 2. Best Gaze: Normal 3. Visual: No visual loss 4. Facial Palsy: Normal symmetrical movements 5a. Left Arm: No drift; arm holds 90 (or 45) degrees for full 10 seconds 5b. Right Arm: No drift; arm holds 90 (or 45) degrees for full 10 seconds 6a. Left Leg: No drift; leg holds 30-degree position for full 5 seconds 6b. Right Leg: No drift; leg holds 30-degree position for full 5 seconds 7. Limb Ataxia: Absent 8. Sensory: [id number] sensory loss; 9. Best Language: No aphasia; normal 10. Dysarthria: Normal 11. Extinction and Inattention: No abnormality Total: 1 Physical Exam Const alert, oriented x3 and no apparent distress General Appearance: cooperative, comfortable and well kempt Exam Limitations: no limitations HEENT normocephalic and head/scalp atraumatic Eyes EOMs intact bilaterally Resp normal respiratory effort Extremity normal to inspection Neuro oriented x3, CN's II-XII intact bilaterally, moves all extremities and no focal motor deficits Neuro Narrative: Awake, alert Speech fluent, Comprehension intact Cranial nerves 2-12 intact Power 5/5 Sensation: Decreased on the right side No ataxia Lab / Micro Data 05/23/24 14:45 05/24/24 07:15 Labs: Laboratory Results - last 24 hr 05/23/24 14:45: WBC 6.8, RBC 4.77, Hgb 14.0, Hct 41.7, MCV 87.4, MCH 29.4, MCHC 33.6, RDW Std Deviation 49.3 H, RDW Coeff of Yonathan 15.5 H, Plt Count 191, MPV 10.3, Immature Gran % (Auto) 0.300, Neut % (Auto) 74.2 H, Lymph % (Auto) 16.1 L, Haywood % (Auto) 9.0, Eos % (Auto) 0.3, Baso % (Auto) 0.1, Absolute Neuts (auto) 5.0, Absolute Lymphs (auto) 1.09, Nucleated RBC % 0, PT 13.7, INR 1.0, APTT 26.5, Sodium 139, Potassium 3.7, Chloride 106, Carbon Dioxide 28.0, Anion Gap 5, BUN 19 H, Creatinine 1.56 H, Estim Creat Clear Calc 48.49, Est GFR (MDRD) Af Amer 44 L, Est GFR (MDRD) Non-Af 36 L, BUN/Creatinine Ratio 12.2, Glucose 106, Hemoglobin A1c 5.5, Calcium 8.7, Troponin I High Sens 5, TSH 0.87 05/24/24 07:15: Sodium 138, Potassium 4.1, Chloride 110 H, Carbon Dioxide 23.0, Anion Gap 5, BUN 15, Creatinine 1.32 H, Estim Creat Clear Calc 57.32, Est GFR (MDRD) Af Amer 53 L, Est GFR (MDRD) Non-Af 44 L, BUN/Creatinine Ratio 11.4, Glucose 83, Calcium 8.5 Imaging Radiology Impression Brain CT 05/23/24 14:35 IMPRESSION: Normal unenhanced CT scan of the brain. N.B. : The above Results were Read Back by Tomy Duncan MD to Justin Shahid DO, and understanding confirmed on 05/23/2024 14:57:31 (ET). Electronically Signed: Tomy Duncan MD at 14:59 EDT , ADDENDUM: 05/23/24 1506 IMPRESSION: Normal unenhanced CT scan of the brain. N.B. : The above Results were Read Back by Tomy Duncan MD to Justin Shahid DO, and understanding confirmed on 05/23/2024 14:57:31 (ET). Electronically Signed: Tomy Duncan MD at 14:59 EDT , Head/Neck CTA 05/23/24 14:36 IMPRESSION: Normal CTA Head and neck with contrast. No aneurysm or large vessel occlusion. No internal carotid artery stenosis. N.B. : The above Results were Read Back by Tomy Duncan MD to Justin Shahid DO, and understanding confirmed on 05/23/2024 15:07:57 (ET). Electronically Signed: Tomy Duncan MD at 15:09 EDT , ADDENDUM: 05/23/24 1516 IMPRESSION: Normal CTA Head and neck with contrast. No aneurysm or large vessel occlusion. No internal carotid artery stenosis. N.B. : The above Results were Read Back by Tomy Duncan MD to Justin Shahid DO, and understanding confirmed on 05/23/2024 15:07:57 (ET). Electronically Signed: Tomy Duncan MD at 15:09 EDT , Chest X-Ray 05/23/24 15:15 IMPRESSION: Cardiac enlargement. No focal infiltrate. Electronically Signed: Tomy Duncan MD at 15:58 EDT , Brain MRI 05/23/24 16:42 IMPRESSION: Increased Moderate multifocal white matter lesions unusual for age. Differential considerations include not only microangiopathic changes but demyelination etc. Clinical correlation and follow-up recommended. Electronically Signed: Kal Clark MD at 19:43 EDT , Active Medications Active Medications Active Medications: Current Medications Generic Name Dose Route Start Last Admin Trade Name Freq PRN Reason Stop Dose Admin Acetaminophen 650 mg 05/23/24 18:11 Acetaminophen 325 Mg Tablet PO Q6H PRN PRN Pain 1-10 Or Fever>100.7 Albuterol Sulfate 2.5 mg 05/23/24 18:25 Albuterol 2.5 Mg/3 Ml Vial.Neb. INHALATION Q4H PRN shortness of breath or wheezing Albuterol Sulfate 2.5 mg 05/23/24 18:35 05/24/24 07:46 Albuterol 2.5 Mg/3 Ml Vial.Neb. INHALATION 2.5 mg Q6HWA.RT IRVING Administration Apixaban 5 mg 05/24/24 22:00 Apixaban 5 Mg Tablet PO BID IRVING Aripiprazole 15 mg 05/24/24 10:00 Aripiprazole 10 Mg Tablet PO DAILY IRVING Budesonide 6 mg 05/24/24 10:00 Budesonide 3 Mg Capsule.Ec PO DAILY IRVING Budesonide 0.5 mg 05/23/24 18:35 05/24/24 07:46 Budesonide Respules 0.5 Mg/2 Ml Ampul.Neb. INHALATION 0.5 mg Q12H.RT IRVING Administration Cholecalciferol 50 mcg 05/24/24 10:00 Cholecalciferol (Vit D3) 25 Mcg Tablet (1,000 Units) PO DAILY IRVING Cyanocobalamin 500 mcg 05/24/24 10:00 Cyanocobalamin 500 Mcg Tablet PO DAILY IRVING Fluticasone Propionate 1 spray 05/23/24 22:00 05/23/24 22:11 Fluticasone 0.05% 1 [place] Nasal.Sry NASAL 1 spray BID IRVING Administration Gabapentin 300 mg 05/24/24 06:00 05/24/24 06:05 Gabapentin 300 Mg Capsule PO 300 mg TID IRVING Administration Glycerin/Hypromellose/Polyethylene 1 drp 05/23/24 22:00 05/23/24 22:10 Glycerin/Hypromellose/[id number] 15 Ml Bottle EACH EYE 1 drp BID IRVING Administration Hydralazine HCl 5 mg 05/23/24 18:11 Hydralazine 20 Mg/Ml Vial IV 05/24/24 18:11 Q30M PRN maintain BP parameters with HR <60 Labetalol HCl 20 mg 05/23/24 14:35 Labetalol (Prefilled) 20 Mg/4 Ml IV 05/24/24 14:35 X1 PRN Blood Pressure Levothyroxine Sodium 50 mcg 05/24/24 06:00 05/24/24 06:05 Levothyroxine 50 Mcg Tablet PO 50 mcg 0600 IRVING Administration Loratadine 10 mg 05/24/24 10:00 Loratadine 10 Mg Tablet PO DAILY IRVING Montelukast Sodium 10 mg 05/23/24 22:00 05/23/24 22:10 Montelukast 10 Mg Tablet PO 10 mg QHS IRVING Administration Ondansetron HCl 4 mg 05/23/24 18:11 Ondansetron 4 Mg/2 Ml Vial IV Q8H PRN PRN NAUSEA/VOMITING Pantoprazole Sodium 40 mg 05/24/24 10:00 Pantoprazole Sodium 40 Mg Tablet PO DAILY IRVING Senna/Docusate Sodium 1 tablet 05/23/24 22:00 05/23/24 22:09 Senna/Docusate Sodium 1 Tablet PO 1 tablet BID IRVING Administration Sodium Chloride 10 - 40 ml 05/23/24 18:39 0.9% Saline Lock 10 Ml Syringe IV UD PRN SALINE FLUSH Trazodone HCl 100 mg 05/24/24 22:00 Trazodone 100 Mg Tablet PO QHS IRVING
[2024-05-24] MEDS: Glycerin/Hypromellose/PEG400 15 ml Bottle 1 DRP EACH EYE (09:21)
[2024-05-24] MEDS: Pantoprazole Sodium 40 MG Tablet PO (09:22)
[2024-05-24] MEDS: Fluticasone 0.05% 1 SPRAY NASAL.SRY NASAL (09:22)
[2024-05-24] MEDS: Budesonide 3 MG CAPSULE.EC 6 MG PO (09:23)
[2024-05-24] MEDS: ARIPiprazole 10 MG Tablet 15 MG PO (09:23)
[2024-05-24] MEDS: Senna/Docusate Sodium 1 Tablet PO (09:24)
[2024-05-24] MEDS: Loratadine 10 MG Tablet PO (09:24)
[2024-05-24] MEDS: Cyanocobalamin 500 MCG Tablet PO (09:25)
[2024-05-24] MEDS: Cholecalciferol (VIT D3) 25 MCG TABLET (1,000 UNITS) 50 MCG PO (09:26)
[2024-05-24 09:30] VITALS: BP 140/65; PULSE 65; RESP 18; TEMP 36.7; O2SAT 97
[2024-05-24] MEDS: 0.9% Saline Lock 10 ML Syringe IV (09:32)
[2024-05-24 10:13] LABS: Hematocrit 39.3 % (37-47); Hemoglobin 13.3 g/dL (12.0-15.0); Mean Corp Hgb Conc 33.8 g/dL (32-36); Mean Corpuscular Hgb 29.2 pg (27.0-32.0); Mean Corpuscular Volume 86.4 fL (81-99); Mean Platelet Vol. 10.7 fl (6.2-12.0); Platelet Count 189 K/mm3 (150-450); RBC Distribution Width CV 15.4 % (11.6-14.6); RBC Distribution Width SD 48.3 fl (35.1-43.9); Red Blood Count 4.55 M/mm3 (4.2-5.4); White Blood Count 7.2 K/mm3 (4.4-11.0)
--- NOTE | 2024-05-24 11:05 | CASEMGMT ---
Social Work Pt negative for stroke. PHQ9 not indicated at this time. Jemima Antunez, [employer]
[2024-05-24 13:25] VITALS: PULSE 61; RESP 16
--- NOTE | 2024-05-24 14:30 | PCM.DC.SUM ---
Providers Date of Admission: 05/23/24 Date of Discharge: 05/24/24 Primary Care Physician: Dr. Elizabeth Santamaria MD Consultations 05/23/24 18:11 Consult: Tele-Neurology Routine Consulting Provider: [facility] Reason for Consult: Acute Ischemic Stroke/TIA EMERGENT Consult: No MD Notified: Yes Date Notified: 05/23/24 Time Notified: 16:37 Method of Notification: Answering Service Nursing Unit Staff Notify [facility] of Tele-Neurology Consult: Yes Reason For Visit: CVA RULE OUT Diagnosis Discharge Diagnosis (1) Stroke-like symptoms: Status: Acute Code(s): R29.90 - Unspecified symptoms and signs involving the nervous system (2) Altered mental status: Status: Acute Code(s): R41.82 - Altered mental status, unspecified (3) AF (paroxysmal atrial fibrillation): Status: Acute Code(s): I48.0 - Paroxysmal atrial fibrillation (4) Chronic anticoagulation: Status: Acute Code(s): Z79.01 - nursing home (current) use of anticoagulants Medications at Discharge Home Medications nitroglycerin 0.4 mg sublingual tablet 0.4 mg sublingual PRN PRN CHEST PAIN #25 tabs 07/09/23 acetaminophen 325 mg capsule 325 mg PO Q4H PRN pain 01/04/24 cyclobenzaprine 10 mg tablet 10 mg PO Q8H PRN spasms 01/04/24 gabapentin 300 mg capsule 300 mg PO TID nerve 01/04/24 methocarbamol 750 mg tablet 750 mg PO Q8H PRN pain 01/04/24 sennosides 8.6 mg-docusate sodium 50 mg tablet (Senna with Docusate Sodium) 1 tab-cap PO BID constipation 01/04/24 albuterol sulfate 90 mcg/actuation aerosol inhaler 2 puff inhalation Q4H PRN shortness of breath or wheezing #8.5 grams 01/11/24 aripiprazole 15 mg tablet 15 mg PO DAILY bipolar 01/11/24 carboxymethylcellulose sodium 0.5 % eye drops 1 drp ophthalmic (eye) BID eyes 01/11/24 lidocaine 5 % topical patch 3 patch topical Q24H pain 01/11/24 trazodone 100 mg tablet 100 mg PO QHS sleep 01/11/24 furosemide 40 mg tablet 40 mg PO DAILY #30 tabs 02/01/24 spironolactone 25 mg tablet 25 mg PO DAILY #30 tabs 02/01/24 fluticasone propionate 50 mcg/actuation nasal spray,suspension 1 spray intranasal Q12H allergies #16 grams 02/29/24 levothyroxine 50 mcg tablet 50 mcg PO DAILY thyr #90 tabs 02/29/24 carvedilol 3.125 mg tablet 3.125 mg PO BID #60 TABLETS 03/26/24 cholecalciferol (vitamin D3) 50 mcg (2,000 unit) capsule 50 mcg PO DAILY vit #90 caps 03/26/24 cyanocobalamin (vitamin B-12) 500 mcg tablet 500 mcg PO DAILY vit #90 tabs 03/26/24 losartan 50 mg tablet 50 mg PO DAILY bp #90 tabs 03/26/24 budesonide-formoterol HFA 160 mcg-4.5 mcg/actuation aerosol inhaler (Symbicort) 2 inh inhalation DAILY asthma #3 ea 03/31/24 melatonin 10 mg tablet 10 mg PO QHS for insomnia #90 TABLETS 04/24/24 montelukast 10 mg tablet 10 mg PO QHS for allergies #30 TABLETS 05/06/24 polyethylene glycol 3350 17 gram/dose oral powder 17 g PO QDAY PRN constipation #850 grams 05/14/24 tiotropium bromide 1.25 mcg/actuation mist for inhalation (Spiriva Respimat) 2 puff PO DAILY PRN for asthma #4 GMS 05/19/24 apixaban 5 mg tablet (Eliquis) 5 mg PO BID #60 tabs 05/21/24 guaifenesin 600 mg tablet, extended release 12 hr (Mucus Relief ER) 600 mg PO BID 05/21/24 hydroxyzine pamoate 100 mg capsule 100 mg PO QHS 05/21/24 mepolizumab 100 mg/mL subcutaneous syringe (Nucala) 100 mg subcut Q4W 05/21/24 tizanidine 2 mg tablet 4 mg PO TID 05/21/24 omeprazole 40 mg capsule,delayed release 40 mg PO DAILY #30 caps 05/22/24 loratadine 10 mg tablet 10 mg PO QHS for allergies 05/23/24 Hospital Course Operations None Procedures None Summary of Care Provided Minutes Spent on Discharge: 55 Hospital Course: Patient is a 59-year-old female with a past medical history as outlined was admitted through the ED on 05/23/2024 with a complaint of altered mental status. There was concern for strokelike symptoms as she could not identify objects and reported weakness in both arms and legs when she arrived in the ED so stroke alert was called. Initial NIH stroke scale was 16. CT of the brain showed no intracranial pathology and CT of the head and neck were unremarkable. [facility] was consulted and they recommended admission for further workup. Patient was noted tenecteplase candidate. There was also concern that his symptoms could be due to her underlying conversion disorder. She was admitted and managed for stroke rule out. She did have an MRI of the brain which was negative for stroke and showed some increased white matter changes. Neurology recommended that patient continue with her current medications as her symptoms were likely due to complicated migraine. Patient felt much better afterwards and felt well enough to go home. She was discharged on 05/24/2024. She is follow-up with her primary care doctor within 1 to 2 weeks. Patient seen and examined prior to discharge. She had no active complaints and had an uneventful night. Review of systems otherwise negative. Labs and vitals reviewed. Home medication reviewed and reconciled. Physical Exam Const oriented x3 and no apparent distress Constitutional Narrative: obese General Appearance: cooperative, comfortable and well kempt Orientation / Consciousness: awake Exam Limitations: no limitations HEENT normocephalic, head/scalp atraumatic, hearing grossly normal bilaterally and moist oral mucous membranes Mouth: oral and palatal mucosa normal Eyes PERRL, EOMs intact bilaterally and conjunctivae normal Neck no lymphadenopathy and supple Resp normal respiratory effort, no retractions, no use of accessory muscles and clear to auscultation bilaterally Cardio regular rate, regular rhythm, S1 normal heart sound, S2 normal heart sound and no murmurs GI normal to inspection, nondistended, normoactive bowel sounds, soft to palpation, non-tender and non-distended Extremity normal to inspection, full ROM and no clubbing, cyanosis or edema Skin no rashes or lesions noted and no wounds Neuro oriented x3, CN's II-XII intact bilaterally, moves all extremities, no focal motor deficits and no sensory deficits noted Sensorium / Orientation: awake and alert Motor Exam: strength 5/5 throughout Psych affect normal Weight / BMI Weight Weight: 268 lb 4.841 oz Body Mass Index (BMI) 47.5 ABG / Lab / Microbiology Data 05/24/24 10:00 05/24/24 07:15 Laboratory: Laboratory Results - last 24 hr 05/23/24 14:45: WBC 6.8, RBC 4.77, Hgb 14.0, Hct 41.7, MCV 87.4, MCH 29.4, MCHC 33.6, RDW Std Deviation 49.3 H, RDW Coeff of Yonathan 15.5 H, Plt Count 191, MPV 10.3, Immature Gran % (Auto) 0.300, Neut % (Auto) 74.2 H, Lymph % (Auto) 16.1 L, [place] % (Auto) 9.0, Eos % (Auto) 0.3, Baso % (Auto) 0.1, Absolute Neuts (auto) 5.0, Absolute Lymphs (auto) 1.09, Nucleated RBC % 0, PT 13.7, INR 1.0, APTT 26.5, Sodium 139, Potassium 3.7, Chloride 106, Carbon Dioxide 28.0, Anion Gap 5, BUN 19 H, Creatinine 1.56 H, Estim Creat Clear Calc 48.49, Est GFR (MDRD) Af Amer 44 L, Est GFR (MDRD) Non-Af 36 L, BUN/Creatinine Ratio 12.2, Glucose 106, Hemoglobin A1c 5.5, Calcium 8.7, Troponin I High Sens 5, TSH 0.87 05/24/24 07:15: WBC Cancelled, Corrected WBC Cancelled, RBC Cancelled, Hgb Cancelled, Hct Cancelled, MCV Cancelled, MCH Cancelled, MCHC Cancelled, RDW Std Deviation Cancelled, RDW Coeff of Yonathan Cancelled, Plt Count Cancelled, MPV Cancelled, Diff Path Review Cancelled, Sodium 138, Potassium 4.1, Chloride 110 H, Carbon Dioxide 23.0, Anion Gap 5, BUN 15, Creatinine 1.32 H, Estim Creat Clear Calc 57.32, Est GFR (MDRD) Af Amer 53 L, Est GFR (MDRD) Non-Af 44 L, BUN/Creatinine Ratio 11.4, Glucose 83, Calcium 8.5 05/24/24 10:00: WBC 7.2, RBC 4.55, Hgb 13.3, Hct 39.3, MCV 86.4, MCH 29.2, MCHC 33.8, RDW Std Deviation 48.3 H, RDW Coeff of Yonathan 15.4 H, Plt Count 189, MPV 10.7 Radiography Diagnostic Testing: Radiology Impression Brain CT 05/23/24 14:35 IMPRESSION: Normal unenhanced CT scan of the brain. N.B. : The above Results were Read Back by Tomy Duncan MD to Justin Shahid , DO, and understanding confirmed on 05/23/2024 14:57:31 (ET). Electronically Signed: Tomy Duncan MD at 14:59 EDT , ADDENDUM: 05/23/24 1506 IMPRESSION: Normal unenhanced CT scan of the brain. N.B. : The above Results were Read Back by Tomy Duncan MD to Justin Shahid , DO, and understanding confirmed on 05/23/2024 14:57:31 (ET). Electronically Signed: Tomy Duncan MD at 14:59 EDT , Head/Neck CTA 05/23/24 14:36 IMPRESSION: Normal CTA Head and neck with contrast. No aneurysm or large vessel occlusion. No internal carotid artery stenosis. N.B. : The above Results were Read Back by Tomy Duncan MD to Justin Shahid , DO, and understanding confirmed on 05/23/2024 15:07:57 (ET). Electronically Signed: Tomy Duncan MD at 15:09 EDT , ADDENDUM: 05/23/24 1516 IMPRESSION: Normal CTA Head and neck with contrast. No aneurysm or large vessel occlusion. No internal carotid artery stenosis. N.B. : The above Results were Read Back by Tomy Duncan MD to Justin Shahid , DO, and understanding confirmed on 05/23/2024 15:07:57 (ET). Electronically Signed: Tomy Duncan MD at 15:09 EDT , Chest X-Ray 05/23/24 15:15 IMPRESSION: Cardiac enlargement. No focal infiltrate. Electronically Signed: Tomy Duncan MD at 15:58 EDT , Brain MRI 05/23/24 16:42 IMPRESSION: Increased Moderate multifocal white matter lesions unusual for age. Differential considerations include not only microangiopathic changes but demyelination etc. Clinical correlation and follow-up recommended. Electronically Signed: Kal Clark MD at 19:43 EDT , D/C Instructions Discharge Diet: Low fat / Low cholesterol Discharge Activity: Return to Normal Activity Weight Bearing Status: Weight bearing as tolerated Call your doctor if you observe: Fever of 101 or Higher, Shortness of breath, Dizziness, Swelling in the ankles, Chest pain and Increased palpitations (irregular heartbeat) Meaningful Use Info Meaningful Use Meaningful Use Diagnoses (Choose all that apply): None applicable Ischemic Stroke Statin Dosing Therapy Reference: STATIN DOSE THERAPY REFERENCE: * Patients > 75 years receive moderate or high dose statin therapy. * Patients 75 years or YOUNGER should receive HIGH intensity statin dose unless contraindicated. You will be required to document reason for non-treatment if statin daily dose does not meet guidelines. HIGH DOSE STATIN THERAPY DAILY Atorvastatin > than or = to 40 mg Rosuvastatin > than or = to 20 mg Amlodipine + Atorvastatin > than or = to 2.5/40 mg Ezetimibe + Simvastatin 10/80 mg Simvastatin 80mg Discharge Plan Admission Admit Date/Time: 05/23/24 16:31 Primary Reason for Your Visit: migraine Attending Provider: Jessica Barron Primary Care Provider: Elizabeth Santamaria Consulting Providers: Shlomo Yates; Aristides Conn; Larisa Sarmiento; Lilo Kimball; Mary Goyal; Akash Isabel; Sparkle Alcocer; Juvenal Rowland; Reagan Urbina; Esvin Szymanski; Jammie Goodwin; Alexey Potter; Jennifer Herrmann; Melissa Paredes; Radha Joiner; Padilla Haro; Lorraine Garcia; Matt Estevez; Zaynab Salamanca; Dodie De La Garza; Carlo Whiplpe Instructions Patient Instructions: Migraine Headaches Ch Discharge Orders/Prescriptions Prescriptions: Continued acetaminophen 325 mg capsule 325 mg PO Q4H PRN (Reason: pain) cyclobenzaprine 10 mg tablet 10 mg PO Q8H PRN (Reason: spasms) gabapentin 300 mg capsule 300 mg PO TID methocarbamol 750 mg tablet 750 mg PO Q8H PRN (Reason: pain) sennosides-docusate sodium [Senna with Docusate Sodium] 8.6-50 mg tablet 1 tab-cap PO BID Nucala 100 mg/mL syringe 100 mg subcut Q4W budesonide-formoterol [Symbicort] 160-4.5 mcg/actuation HFA aerosol inhaler 2 inh inhalation DAILY Qty: 3 3RF hydroxyzine pamoate 100 mg capsule 100 mg PO QHS tizanidine 2 mg tablet 4 mg PO TID guaifenesin [Mucus Relief ER] 600 mg tablet extended release 12hr 600 mg PO BID Eliquis 5 mg tablet 5 mg PO BID Qty: 60 11RF aripiprazole 15 mg tablet 15 mg PO DAILY trazodone 100 mg tablet 100 mg PO QHS carboxymethylcellulose sodium 0.5 % drops 1 drp ophthalmic (eye) BID lidocaine 5 % adhesive patch,medicated 3 patch topical Q24H Rx Instructions: APPLY ONE PATCH TO PAINFUL AREA FOR UP TO 12 HOURS, THEN REMOVE FOR 12 HOURS loratadine 10 mg tablet 10 mg PO QHS nitroglycerin 0.4 mg tablet, sublingual 0.4 mg SUBLINGUAL PRN PRN (Reason: CHEST PAIN) Qty: 25 3RF albuterol sulfate 90 mcg/actuation HFA aerosol inhaler 2 puff inhalation Q4H PRN (Reason: shortness of breath or wheezing) Qty: 8.5 6RF Rx Instructions: administer with spacer spironolactone 25 mg tablet 25 mg PO DAILY Qty: 30 11RF furosemide 40 mg tablet 40 mg PO DAILY Qty: 30 11RF levothyroxine 50 mcg tablet 50 mcg PO DAILY Qty: 90 0RF Rx Instructions: TAKE 1 TABLET BY MOUTH DAILY FOR THYROID fluticasone propionate 50 mcg/actuation spray,suspension 1 spray intranasal Q12H Qty: 16 0RF Rx Instructions: USE 1 SPRAY IN EACH NOSTRIL TWICE A DAY FOR ALLERGIES carvedilol 3.125 mg tablet 3.125 mg PO BID Qty: 60 11RF losartan 50 mg tablet 50 mg PO DAILY Qty: 90 0RF cyanocobalamin (vitamin B-12) 500 mcg tablet 500 mcg PO DAILY Qty: 90 0RF cholecalciferol (vitamin D3) 50 mcg (2,000 unit) capsule 50 mcg PO DAILY Qty: 90 0RF melatonin 10 mg tablet 10 mg PO QHS Qty: 90 0RF montelukast 10 mg tablet 10 mg PO QHS Qty: 30 2RF polyethylene glycol 3350 17 gram/dose powder 17 g PO QDAY PRN (Reason: constipation) Qty: 850 1RF Spiriva Respimat 1.25 mcg/actuation mist 2 puff PO DAILY PRN (Reason: for asthma) Qty: 4 4RF omeprazole 40 mg capsule,delayed release(DR/EC) 40 mg PO DAILY Qty: 30 0RF Referrals / Follow Up: Elizabeth Santamaria MD [Primary Care Provider] - Within 1 Week Disposition Disposition (needs filled in before D/C Order can be placed): Home, Self Care Charges/Coding Visit Charges Inpatient E&M: 91540 Disch Hosp >30min
--- NOTE | 2024-05-24 14:57 | CASEMGMT ---
CHITRA ALLISON NOTE: CHITRA ALLISON to room. Introduced self and role. Pt states feels safe discharging home and her friend, [facility], will be taking her home. She denies the need for any OP therapy and denies other discharge needs/concerns. Rory SMITH RN, CM
[2024-05-24 15:30] VITALS: BP 154/86; PULSE 69; RESP 16; TEMP 36.6; O2SAT 97; BMI 47.5
== END 2024-05-24 14:29 | disposition home or self-care (01) ==
LOC: ED 15:32 → PCU 16:49
PROVIDERS: Admitting Provider Hospitalist; Emergency Provider Emergency Medicine; PCP Internal Medicine; Visit Provider Student in an Organized Health Care Education/Training Program
DX: R29.90 Unspecified symptoms and signs involving the nervous system (principal); F20.9 Schizophrenia, unspecified; I50.9 Heart failure, unspecified; I13.0 Hypertensive heart and chronic kidney disease with heart failure and stage 1 through stage 4 chronic kidney disease, or unspecified chronic kidney disease; F31.9 Bipolar disorder, unspecified; J44.9 Chronic obstructive pulmonary disease, unspecified; I48.0 Paroxysmal atrial fibrillation; E66.01 Morbid (severe) obesity due to excess calories; Z68.42 Body mass index [BMI] 45.0-49.9, adult; Z79.51 Long term (current) use of inhaled steroids; Z79.01 Long term (current) use of anticoagulants; G89.29 Other chronic pain; R29.716 NIHSS score 16; E03.9 Hypothyroidism, unspecified; K21.9 Gastro-esophageal reflux disease without esophagitis; Z79.890 Hormone replacement therapy; N18.9 Chronic kidney disease, unspecified; E78.00 Pure hypercholesterolemia, unspecified; R41.82 Altered mental status, unspecified; Z79.899 Other long term (current) drug therapy; Z87.891 Personal history of nicotine dependence
CPT/HCPCS: 36415; 70450; 70496; 70498; 70551; 71045; 80048; 83036; 84443; 84484; 85025; 85027; 85610; 85730; 92611; 93005; 94640; 97162; 97166; 97802; 99221; 99285; Q9967; A4216; G0378

== ENCOUNTER → 2024-05-28 | Outpatient (CLI) | payer MEDICAID, SELFPAY ==
[2024-05-28 18:36] LABS: Mucous, Urine 0 SEEN /hpf (<or=2+); Red Blood Cells-Urine 0 SEEN /hpf (0-5)
[2024-05-28 18:41] LABS: Color, Urine Yellow (Yellow); Glucose, Dipstick Normal (Normal); Ketone-Dipstick Negative (Negative); Leukocyte Esterase-Dipstick 25 /ul (Negative); Nitrite-Dipstick Negative (Negative); Occult Blood-Urine Negative /ul (Negative); Protein-Dipstick 15 mg/dl (Negative); Specific Gravity, Urine 1.015 (1.002-1.030); Urine Bilirubin Dipstick Negative (Negative); Urine Clarity Clear (Clear); Urine Urobilinogen Normal (Normal)
[2024-05-28 18:52] LABS: Bacteria 1+ /hpf (None Seen); Squamous Epithelial Cells - UA 5-10 SEEN /hpf (5-10); White Blood Cells 10-25 SEEN /hpf (0-5)
== END | disposition home or self-care (01) ==
LOC: LABSPEC 18:35
PROVIDERS: PCP Internal Medicine; Visit Provider Physician Assistant
DX: R30.0 Dysuria (principal)
CPT/HCPCS: 81001; 87077; 87086; 87088; 87186

== ENCOUNTER → 2024-06-06 | Outpatient (CLI) | payer MEDICAID, SELFPAY ==
--- NOTE | 2024-06-06 09:37 | STRESSREP ---
Stress Test Report Date: 06/06/2024 Procedure: Pharmacologic stress nuclear imaging study Indications: Chest pain Consent: Per the patient Procedure: The patient underwent pharmacologic (Regadenoson 0.4mg ) evaluation with a peak heart rate of 68 beats per minute (42%predicted maximal heart rate) and a peak blood pressure of 112/110 mmHg. The baseline ECG demonstrated sinus rhythm. The peak pharmacologic ECG demonstrated no ischemic changes. There were no cardiac dysrhythmias pretest, during pharmacologic infusion, or recovery. There was no complaint of chest discomfort during pharmacologic infusion or recovery. The patient was injected with 14.8 millicuries of technetium 99m Cardiolite and subsequently rest SPECT Cardiolite nuclear imaging was obtained in the horizontal long, vertical long, and short axis views. The patient underwent pharmacologic (Regadenoson) evaluation. The patient was injected with 44.6 millicuries of technetium 99m Cardiolite and subsequently stress SPECT Cardiolite nuclear imaging was obtained in the horizontal long, vertical long, and short axis views. A gated Cardiolite study at peak stress was obtained. The examination was stopped secondary to completion of protocol. Rest and stress SPECT Cardiolite nuclear imaging status post realignment, normalization, and attenuation correction demonstrate no fixed or reversible perfusion defect. There is end systolic thickening and brightening. The gated Cardiolite study demonstrates myocardial thickening and inward wall motion. The reported LVEF is 72%. Impression: 1. Pharmacologic (Regadenoson) evaluation 2. Peak pharmacologic ECG with no ischemic changes. 3. There were no cardiac dysrhythmias pretest, during pharmacologic infusion, or recovery. 5. Rest and stress SPECT Cardiolite nuclear imaging demonstrate relative uniform tracer uptake and myocardial perfusion appearing within normal limits. 6. The gated Cardiolite study reports an LVEF of 72%. This note was generated with [employer] software. It may contain incorrect words, spelling, and punctuation that were not noted in checking the note before signing.
== END | disposition home or self-care (01) ==
LOC: CVS 06:58
PROVIDERS: PCP Internal Medicine; Referring Provider Nurse Practitioner Family; Visit Provider Nurse Practitioner Family
DX: R07.9 Chest pain, unspecified (principal); I48.0 Paroxysmal atrial fibrillation; R06.09 Other forms of dyspnea
CPT/HCPCS: 78452; 93017; A9500; J2785

== ENCOUNTER 2024-06-12 07:49 | Emergency (ER) | payer MEDICAID, SELFPAY ==
[2024-06-12 07:49] VITALS: BP 188/86; PULSE 69; RESP 14; TEMP 37.2; O2SAT 100; BMI 45.6
--- NOTE | 2024-06-12 08:04 | EX.ED.DYSGE1 ---
HPI History of Present Illness Chief Complaint: Abd Pain Informant: patient Narrative Narrative: 59-year-old female with multiple medical problems presenting to the emergency room with vomiting cough and left upper abdominal pain. Patient states that on Sunday of this week she had a decreased appetite. By Sunday she reports fever, rhinorrhea, cough, vomiting, diarrhea, sore throat. She notes continued symptoms but believes her fever broke last night. She notes frequent urination and states she was recently diagnosed with a UTI treated with an antibiotic she does not recall. No rashes. No significant sputum production. She quit smoking in October. She does have a history of asthma COPD overlap syndrome. She was recently hospitalized with strokelike symptoms felt not to be stroke related. She is on apixaban. [facility] Medical History Altered mental status Stroke-like symptoms Chronic anticoagulation AF (paroxysmal atrial fibrillation) Acute right-sided weakness Dysuria PONV (postoperative nausea and vomiting) Adult failure to thrive Contusion of hip Back contusion Difficulty in walking Impingement of left shoulder Enchondroma of left humerus History of Holter monitoring Loss of hearing Wears glasses Bipolar disorder History of steroid therapy History of renal disease Restless legs Sleep apnea Chronic cough History of skin cancer Disease of gingiva due to infection COVID-19 virus infection Degenerative tear of meniscus of left knee Osteoarthritis of left knee Cyclic vomiting syndrome Colitis Pain of left calf Kidney disease Sarcoidosis Morbid obesity Debility Myositis Stroke/cerebrovascular accident TIA (transient ischemic attack) History of atrial fibrillation Chest pain Diarrhea Bilateral flank pain Oral candidiasis Abdominal pain Bilateral foot pain Venous insufficiency of both lower extremities History of abnormal cervical Pap smear Wears dentures Post-menopausal Cancer Marijuana use Open wound Thyroid disease Walker as ambulation aid Arthritis Bladder disease High cholesterol Easy bruising Excessive bleeding Back pain Injury of head and neck Blackout Syncope Seizures Dietary restriction Difficulty chewing History of hiatal hernia History of ulceration History of IBS Gastric reflux Smoker CPAP (continuous positive airway pressure) dependence Shortness of breath on exertion Leg cramps History of edema History of echocardiogram Hx of tilt table evaluation History of stress test Cardiology follow-up encounter History of CHF (congestive heart failure) Family history of colon cancer Allergic rhinitis Osteoarthritis of right hip Nonrheumatic aortic (valve) insufficiency Non-rheumatic mitral regurgitation Heart failure Intertriginous dermatitis associated with moisture Psychosis Orthostatic hypotension Osteoarthritis DAPHNE (obstructive sleep apnea) Schizo NEC, chrn/exacerb Peripheral artery disease Pulmonary embolism Stroke Hypothyroidism HTN (hypertension) PAF (paroxysmal atrial fibrillation) Hypokalemia Hyponatremia Arthralgia of right hip Hip dislocation, right Enlarged aorta CKD (chronic kidney disease) Bipolar 1 disorder Cyst Non-convulsive status epilepticus Migraines Asthma Aortic valve insufficiency Hypertensive crisis without congestive heart failure Left arm swelling Conversion disorder with abnormal movement Gastritis Convulsion, non-epileptic Schizophrenia COPD, mild Depression Home Medications ?Medication ?Instructions ?Recorded ?Last Taken ?Type nitroglycerin 0.4 mg sublingual 0.4 mg sublingual PRN PRN CHEST 07/09/23 Unknown Rx tablet PAIN #25 tabs acetaminophen 325 mg capsule 325 mg PO Q4H PRN pain 01/04/24 03/24/24 History cyclobenzaprine 10 mg tablet 10 mg PO Q8H PRN spasms 01/04/24 03/23/24 History gabapentin 300 mg capsule 300 mg PO TID nerve 01/04/24 05/23/24 History methocarbamol 750 mg tablet 750 mg PO Q8H PRN pain 01/04/24 05/22/24 History sennosides 8.6 mg-docusate sodium 1 tab-cap PO BID constipation 01/04/24 03/23/24 History 50 mg tablet (Senna with Docusate Sodium) albuterol sulfate 90 mcg/actuation 2 puff inhalation Q4H PRN 01/11/24 05/23/24 Rx aerosol inhaler shortness of breath or wheezing #8.5 grams aripiprazole 15 mg tablet 15 mg PO DAILY bipolar 01/11/24 05/23/24 History carboxymethylcellulose sodium 0.5 1 drp ophthalmic (eye) BID eyes 01/11/24 05/23/24 History % eye drops lidocaine 5 % topical patch 3 patch topical Q24H pain 01/11/24 05/22/24 History trazodone 100 mg tablet 100 mg PO QHS sleep 01/11/24 03/23/24 History furosemide 40 mg tablet 40 mg PO DAILY #30 tabs 02/01/24 05/23/24 Rx spironolactone 25 mg tablet 25 mg PO DAILY #30 tabs 02/01/24 03/23/24 Rx fluticasone propionate 50 1 spray intranasal Q12H allergies 02/29/24 05/23/24 Rx mcg/actuation nasal #16 grams spray,suspension levothyroxine 50 mcg tablet 50 mcg PO DAILY thyr #90 tabs 02/29/24 05/23/24 Rx carvedilol 3.125 mg tablet 3.125 mg PO BID #60 TABLETS 03/26/24 05/23/24 Rx cholecalciferol (vitamin D3) 50 50 mcg PO DAILY vit #90 caps 03/26/24 05/23/24 Rx mcg (2,000 unit) capsule cyanocobalamin (vitamin B-12) 500 500 mcg PO DAILY vit #90 tabs 03/26/24 05/23/24 Rx mcg tablet losartan 50 mg tablet 50 mg PO DAILY bp #90 tabs 03/26/24 05/23/24 Rx budesonide-formoterol HFA 160 2 inh inhalation DAILY asthma #3 ea 03/31/24 05/23/24 Rx mcg-4.5 mcg/actuation aerosol inhaler (Symbicort) melatonin 10 mg tablet 10 mg PO QHS for insomnia #90 04/24/24 05/22/24 Rx TABLETS montelukast 10 mg tablet 10 mg PO QHS for allergies #30 05/06/24 05/22/24 Rx TABLETS polyethylene glycol 3350 17 17 g PO QDAY PRN constipation #850 05/14/24 Unknown Rx gram/dose oral powder grams tiotropium bromide 1.25 2 puff PO DAILY PRN for asthma #4 05/19/24 Unknown Rx mcg/actuation mist for inhalation GMS (Spiriva Respimat) apixaban 5 mg tablet (Eliquis) 5 mg PO BID #60 tabs 05/21/24 05/23/24 Rx guaifenesin 600 mg tablet, 600 mg PO BID 05/21/24 05/23/24 History extended release 12 hr (Mucus Relief ER) hydroxyzine pamoate 100 mg capsule 100 mg PO QHS 05/21/24 05/22/24 History mepolizumab 100 mg/mL subcutaneous 100 mg subcut Q4W 05/21/24 05/23/24 History syringe (Nucala) tizanidine 2 mg tablet 4 mg PO TID 05/21/24 05/23/24 History omeprazole 40 mg capsule,delayed 40 mg PO DAILY #30 caps 05/22/24 05/23/24 Rx release loratadine 10 mg tablet 10 mg PO QHS for allergies 05/23/24 05/22/24 History lactulose 20 gram/30 mL oral 20 g (30 mL) PO BID #3,000 mL 05/27/24 Unknown Rx solution prochlorperazine maleate 5 mg 5 mg PO TID PRN nausea and 05/27/24 Unknown Rx tablet vomiting #90 tabs ciprofloxacin HCl 500 mg tablet 500 mg PO Q12H #14 tabs 05/30/24 Unknown Rx (Cipro) amitriptyline 25 mg tablet 25 mg PO QHS #30 tabs 06/06/24 Unknown Rx ondansetron 4 mg disintegrating 4 mg PO Q6H PRN PRN Nausea #15 tabs 06/12/24 Unknown Rx tablet prednisone 20 mg tablet 60 mg (3 x 20 mg) PO DAILY #15 06/12/24 Unknown Rx TABLETS Allergy/AdvReac Type Severity Reaction Status Date / Time adhesive tape Allergy Rash Verified 06/12/24 07:50 atropine sulfate (From Allergy Hives Verified 06/12/24 07:50 ) codeine phosphate (From Allergy breathing Verified 06/12/24 07:50 Tylenol-Codeine #3) problems divalproex sodium (From Allergy Unknown Verified 06/12/24 07:50 Depakote) guaifenesin Allergy Itching Verified 06/12/24 07:50 hydrocodone Allergy Itching Verified 06/12/24 07:50 hydromorphone HCl (From Allergy facial Verified 06/12/24 07:50 Dilaudid) blisters,itching hyoscyamine sulfate (From Allergy Hives Verified 06/12/24 07:50 ) latex Allergy Rash Verified 06/12/24 07:50 pantoprazole sodium (From Allergy Rash Verified 06/12/24 07:50 Protonix) phenobarbital (From ) Allergy Hives Verified 06/12/24 07:50 promethazine HCl (From Allergy Anaphylaxis Verified 06/12/24 07:50 Phenergan) ramipril Allergy Unknown Verified 06/12/24 07:50 scopolamine hydrobromide Allergy Hives Verified 06/12/24 07:50 (From ) tramadol Allergy Itching Verified 06/12/24 07:50 ziprasidone mesylate (From Allergy Unknown Verified 06/12/24 07:50 Geodon) amlodipine AdvReac Vomiting Verified 06/12/24 07:50 levofloxacin (From Levaquin) AdvReac Itching Verified 06/12/24 07:50 metoclopramide (From Reglan) AdvReac Other Verified 06/12/24 07:50 Sulfa (Sulfonamide AdvReac Vomiting Verified 06/12/24 07:50 Antibiotics) ziprasidone HCl (From Geodon) AdvReac tremors Verified 06/12/24 07:50 Family History Sister Myocardial infarction Colon cancer Mother Hypertension Arthritis Brain aneurysm Heart disease High cholesterol Sister Colon cancer Heart disease High cholesterol Hypertension Arthritis Grandmother Arthritis Diabetes CVA (cerebral vascular accident) Father Heart disease High cholesterol Hypertension Surgical History History of back surgery (~12/2023) Previous back surgery Cataract extraction status History of esophagogastroduodenoscopy (EGD) Hx of colonoscopy History of laparoscopic cholecystectomy History of uterine suspension procedure S/P carpal tunnel release bladder sling left foot Social History household members: none number of children: 4 current occupational status: unemployed history of recent travel: No Smoking Status: Former smoker quit date: 11/12/23 Tobacco: How many years used: 26 Electronic Cigarette Use: not used quit status: considering quitting alcohol intake: never substance use type: does not use caffeine: Yes Type: coffee what type of physical activity do you participate in: none seatbelt use: never do you feel safe at home: Yes additional social history: single ROS ROS ED Constitutional Constitutional ED: Reports chills, fever(s) and sweats; Denies weight loss Eyes Eyes: Denies change in vision or diplopia ENT ENT ED: Reports rhinorrhea and sore throat; Denies ear pain Cardiovascular Cardiovascular: Denies chest pain, orthopnea, palpitations or racing heartbeat Respiratory/Chest Respiratory/Chest: Reports cough and dyspnea; Denies orthopnea Gastrointestinal Gastrointestinal: Reports abdominal pain, diarrhea, nausea and vomiting Genitourinary Genitourinary ED: Denies dysuria, hematuria or urinary frequency Musculoskeletal Musculoskeletal: Reports myalgias; Denies arthralgias, back pain or neck pain Integumentary Denies abscess or rash Neurologic Neurologic: Reports headache(s); Denies weakness Psychiatric Psychiatric: Denies anxiety, depression, suicidal ideation or suicidal thoughts Endocrine Endocrinology: Denies polydipsia, polyphagia or polyuria Allergic/Immunologic Allergic/Immunologic ED: Denies mouth swelling, tongue swelling or urticaria EXAM Physical Exam Narrative Exam Narrative: Patient appears to ambulate normally down the hallway at a brisk pace. Const Vital Signs: 06/12/24 07:49 06/12/24 08:41 06/12/24 08:41 Temperature 99 F Temperature Source Temporal Pulse Rate 69 75 Respiratory Rate 14 16 Blood Pressure 188/86 H Blood Pressure Mean 120 Pulse Ox 100 98 Oxygen Delivery Method Room Air Room Air Positive well nourished, well developed and obese General Appearance ED: well developed Nutritional Appearance: obese HEENT Reports normocephalic, head/scalp atraumatic and moist mucous membranes HEENT Narrative: No oropharyngeal erythema. No postnasal drip. No significant turbinate edema or nasal drainage. Eyes PERRL and EOMs intact bilaterally Neck no lymphadenopathy, supple and no JVD Resp normal respiratory effort Auscultation: wheezes expiratory wheezes (Faint expiratory wheezes) Cardio regular rate, regular rhythm and no murmurs GI normal to inspection, nondistended, normoactive bowel sounds Inspection: Negative for abdominal distention Auscultation: normoactive bowel sounds Palpation: soft and tender LUQ; Negative for guarding or rebound tenderness present Back/Spine no CVA tenderness and normal ROM Extremity normal to inspection General Extremety ED: Negative for edema General Extremity: Negative for edema Neuro oriented x3 and CN's II-XII intact bilaterally Sensorium / Orientation: alert Motor Exam: strength 5/5 throughout Psych mental status grossly normal Mood & Affect: Negative for depressed or tearful Skin no rashes or lesions noted and no wounds MDM MDM MDM Narrative Medical decision making narrative: Differential diagnosis includes but not limited to gastroenteritis bowel obstruction gastroparesis bronchitis pneumonia viral syndrome dehydration electrolyte abnormality Patient's white count 3.9 hemoglobin 15 BMP with sodium 135 creatinine 1.21 normal LFTs lipase 15. Patient received IV fluids as well as Zofran has been resting more comfortably. I also gave her a breathing treatment given the light expiratory wheezing. Her COVID-19 is positive. Patient will be treated at home with rest Tylenol as needed for pain and for fevers. Because of the wheezing I would encourage the albuterol use. I am also going to place her on a short course of prednisone. My independent interpretation the chest x-ray is no definitive infiltrate. I do not believe at this time she has a concomitant bacterial infection of her lungs. Patient to return if worsening or concerns History & Record Review Discussion w/independent historian: Patient Lab Data Attestation: I reviewed the patient's lab results. Labs: Laboratory Results - last 24 hr 06/12/24 08:21 WBC 3.9 L RBC 5.17 Hgb 15.0 Hct 44.9 MCV 86.8 MCH 29.0 MCHC 33.4 RDW Std Deviation 49.9 H RDW Coeff of Yonathan 15.6 H Plt Count 149 L MPV 10.1 Immature Gran % (Auto) 0.300 Neut % (Auto) 67.9 Lymph % (Auto) 19.1 Levy % (Auto) 12.1 H Eos % (Auto) 0.3 Baso % (Auto) 0.3 Absolute Neuts (auto) 2.6 Absolute Lymphs (auto) 0.74 L Nucleated RBC % 0 Sodium 135 L Potassium 3.8 Chloride 105 Carbon Dioxide 22.0 Anion Gap 8 BUN 13 Creatinine 1.21 H Estim Creat Clear Calc 61.07 Est GFR (MDRD) Af Amer 58 L Est GFR (MDRD) Non-Af 48 L BUN/Creatinine Ratio 10.7 Glucose 73 L Calcium 9.1 Total Bilirubin 0.40 Direct Bilirubin 0.17 AST 21 ALT 31 Alkaline Phosphatase 113 Total Protein 6.6 Albumin 3.4 Globulin 3.2 Lipase 15 Radiography Diagnostic Testing: Clinical Impression(s) from Imaging Studies Chest X-Ray 06/12/24 08:33 IMPRESSION: There is blunting of the left costophrenic angle with increased markings at the left lung base suggestive of atelectasis and/or early infiltrate. Electronically Signed: Patrick Keita MD at 8:58 EDT , Discharge Plan Triage Chief Complaint: Abd Pain ED Provider: Victor M Yost Dx/Rx/DC Orders Clinical Impression: COVID-19, Nausea & vomiting, Asthma-COPD overlap syndrome Instructions: Coronavirus Disease 2019 (COVID-19): Overview Prescriptions: New prednisone 20 mg tablet 60 mg PO DAILY Qty: 15 0RF ondansetron 4 mg tablet,disintegrating 4 mg PO Q6H PRN PRN (Reason: Nausea) Qty: 15 0RF No Action acetaminophen 325 mg capsule 325 mg PO Q4H PRN (Reason: pain) cyclobenzaprine 10 mg tablet 10 mg PO Q8H PRN (Reason: spasms) gabapentin 300 mg capsule 300 mg PO TID methocarbamol 750 mg tablet 750 mg PO Q8H PRN (Reason: pain) sennosides-docusate sodium [Senna with Docusate Sodium] 8.6-50 mg tablet 1 tab-cap PO BID prochlorperazine maleate 5 mg tablet 5 mg PO TID PRN (Reason: nausea and vomiting) Qty: 90 0RF lactulose 20 gram/30 mL solution 20 g PO BID Qty: 3000 3RF Nucala 100 mg/mL syringe 100 mg subcut Q4W budesonide-formoterol [Symbicort] 160-4.5 mcg/actuation HFA aerosol inhaler 2 inh inhalation DAILY Qty: 3 3RF hydroxyzine pamoate 100 mg capsule 100 mg PO QHS tizanidine 2 mg tablet 4 mg PO TID guaifenesin [Mucus Relief ER] 600 mg tablet extended release 12hr 600 mg PO BID Eliquis 5 mg tablet 5 mg PO BID Qty: 60 11RF aripiprazole 15 mg tablet 15 mg PO DAILY trazodone 100 mg tablet 100 mg PO QHS carboxymethylcellulose sodium 0.5 % drops 1 drp ophthalmic (eye) BID lidocaine 5 % adhesive patch,medicated 3 patch topical Q24H Rx Instructions: APPLY ONE PATCH TO PAINFUL AREA FOR UP TO 12 HOURS, THEN REMOVE FOR 12 HOURS loratadine 10 mg tablet 10 mg PO QHS nitroglycerin 0.4 mg tablet, sublingual 0.4 mg SUBLINGUAL PRN PRN (Reason: CHEST PAIN) Qty: 25 3RF albuterol sulfate 90 mcg/actuation HFA aerosol inhaler 2 puff inhalation Q4H PRN (Reason: shortness of breath or wheezing) Qty: 8.5 6RF Rx Instructions: administer with spacer spironolactone 25 mg tablet 25 mg PO DAILY Qty: 30 11RF furosemide 40 mg tablet 40 mg PO DAILY Qty: 30 11RF levothyroxine 50 mcg tablet 50 mcg PO DAILY Qty: 90 0RF Rx Instructions: TAKE 1 TABLET BY MOUTH DAILY FOR THYROID fluticasone propionate 50 mcg/actuation spray,suspension 1 spray intranasal Q12H Qty: 16 0RF Rx Instructions: USE 1 SPRAY IN EACH NOSTRIL TWICE A DAY FOR ALLERGIES carvedilol 3.125 mg tablet 3.125 mg PO BID Qty: 60 11RF losartan 50 mg tablet 50 mg PO DAILY Qty: 90 0RF cyanocobalamin (vitamin B-12) 500 mcg tablet 500 mcg PO DAILY Qty: 90 0RF cholecalciferol (vitamin D3) 50 mcg (2,000 unit) capsule 50 mcg PO DAILY Qty: 90 0RF melatonin 10 mg tablet 10 mg PO QHS Qty: 90 0RF montelukast 10 mg tablet 10 mg PO QHS Qty: 30 2RF polyethylene glycol 3350 17 gram/dose powder 17 g PO QDAY PRN (Reason: constipation) Qty: 850 1RF Spiriva Respimat 1.25 mcg/actuation mist 2 puff PO DAILY PRN (Reason: for asthma) Qty: 4 4RF omeprazole 40 mg capsule,delayed release(DR/EC) 40 mg PO DAILY Qty: 30 0RF ciprofloxacin HCl [Cipro] 500 mg tablet 500 mg PO Q12H Qty: 14 0RF amitriptyline 25 mg tablet 25 mg PO QHS Qty: 30 1RF Primary Care Provider: Elizabeth Santamaria Referrals: Elizabeth Santamaria MD [Primary Care Provider] - Activity Restrictions/Additional Instructions: I would recommend using your albuterol inhaler 2 puffs every 4 hours while awake. Print Language: Bruneian Disposition Disposition: Home, Self Care
[2024-06-12] MEDS: 0.9% Normal Saline (1000mL) 1,000 ML 1000 ML IV (08:19)
[2024-06-12] MEDS: Ondansetron 4 MG/2 ML Vial IV (08:20)
[2024-06-12 08:30] LABS: Absolute Lymphocyte Count 0.74 X10^3/uL (0.83-4.51); Absolute Neutrophil Count 2.6 X10^3/uL (2.0-7.7); Basophil# 0.01 X10^3/uL; Basophil% 0.3 % (0-1); Eosinophil# 0.01 X10^3/uL; Eosinophils% 0.3 % (0-5); Hematocrit 44.9 % (37-47); Lymphocyte # 0.74 X10^3/ul (0.83-4.51); Lymphocyte % 19.1 % (19-41); Mean Corp Hgb Conc 33.4 g/dL (32-36); Mean Corpuscular Volume 86.8 fL (81-99); Mean Platelet Vol. 10.1 fl (6.2-12.0); Monocyte# 0.47 X10^3/uL; Monocyte% 12.1 % (0-10); NRBC Flagged by Analyzer 0 % (0-5); Neutrophil # 2.63 X10^3/uL (2.7-7.7); Neutrophil % 67.9 % (47-70); Platelet Count 149 K/mm3 (150-450); RBC Distribution Width CV 15.6 % (11.6-14.6); RBC Distribution Width SD 49.9 fl (35.1-43.9); Red Blood Count 5.17 M/mm3 (4.2-5.4); White Blood Count 3.9 K/mm3 (4.4-11.0)
--- NOTE | 2024-06-12 08:33 | RAD_ITS ---
STUDY: X-RAY CHEST REASON FOR EXAM: Female, 59 years old. Cough. Nausea and vomiting. TECHNIQUE: Single AP portable view of the chest. COMPARISON: Comparison is made with prior study May 23, 2024. FINDINGS: There is blunting of the left costo phrenic angle. I suspect atelectasis and/or infiltrate in the lateral aspect of the left lower lobe. There is mild cardiac enlargement. Normal mediastinum and rosita. Normal visualized pulmonary arteries. There is atherosclerotic tortuosity of the aortic arch and descending thoracic aorta. There are degenerative changes of the visualized thoracic spine. Normal visualized ribs, clavicles, and shoulders. There is no demonstrated abnormality of the visualized soft tissue structures of the upper abdomen. RAD/Chest 1 View (Portable) IMPRESSION: There is blunting of the left costophrenic angle with increased markings at the left lung base suggestive of atelectasis and/or early infiltrate. Electronically Signed: Patrick Keita MD at 8:58 EDT ,
[2024-06-12] MEDS: Ipratropium/Albuterol Sulfate 3 ML AMPUL.NEB INHALATION (08:39)
[2024-06-12 08:41] VITALS: PULSE 75; RESP 16; O2SAT 98
[2024-06-12 08:52] LABS: AST(SGOT) 21 U/L (15-37); Alanine Aminotransfer ALT/SGPT 31 U/L (13-56); Albumin, Serum 3.4 g/dL (3.2-5.0); Alkaline Phosphatase 113 U/L (45-117); Anion Gap 8 (5-15); BUN 13 mg/dL (7-18); BUN/Creat Ratio 10.7 RATIO (10-20); Bilirubin, Direct 0.17 mg/dL (0.00-0.30); Calcium,Total 9.1 mg/dL (8.5-10.1); Chloride 105 mmol/L (98-107); Creatinine, Serum 1.21 mg/dL (0.55-1.02); EST Glomerular Filtration Rate 48 mL/min (>60); Est Glom Filt Rate - Afr Amer 58 mL/min (>60); Estimated Creatinine Clearance 61.07 ml/min; Globulin 3.2 g/dL (2.2-4.2); Glucose 73 mg/dL (74-106); Lipase 15 U/L (13-75); Potassium 3.8 mmol/L (3.5-5.1); Protein, Total 6.6 g/dL (6.4-8.2); Sodium Level 135 mmol/L (136-145)
[2024-06-12 10:21] VITALS: BP 137/54; PULSE 53; RESP 18; TEMP 36.4; O2SAT 98
== END 2024-06-12 10:22 | disposition home or self-care (01) ==
PROVIDERS: Emergency Provider Emergency Medicine; PCP Internal Medicine; Visit Provider Emergency Medicine
DX: U07.1 COVID-19 (principal); I50.9 Heart failure, unspecified; I13.0 Hypertensive heart and chronic kidney disease with heart failure and stage 1 through stage 4 chronic kidney disease, or unspecified chronic kidney disease; F31.9 Bipolar disorder, unspecified; J44.9 Chronic obstructive pulmonary disease, unspecified; I48.0 Paroxysmal atrial fibrillation; R11.2 Nausea with vomiting, unspecified; Z79.01 Long term (current) use of anticoagulants; E78.00 Pure hypercholesterolemia, unspecified; N18.9 Chronic kidney disease, unspecified; Z87.891 Personal history of nicotine dependence; R10.12 Left upper quadrant pain; Z86.73 Personal history of transient ischemic attack (TIA), and cerebral infarction without residual deficits; G47.33 Obstructive sleep apnea (adult) (pediatric); Z99.89 Dependence on other enabling machines and devices; E03.9 Hypothyroidism, unspecified; K21.9 Gastro-esophageal reflux disease without esophagitis; Z90.49 Acquired absence of other specified parts of digestive tract
CPT/HCPCS: 71045; 80048; 80076; 83690; 85025; 87631; 94640; 96361; 96374; 99282; J7030; A4216; J2405

== ENCOUNTER 2024-06-30 19:01 | Emergency (ER) | payer MEDICAID, SELFPAY ==
[2024-06-30 19:02] VITALS: BP 171/68; PULSE 74; RESP 18; TEMP 36.6; O2SAT 96; BMI 46.9
--- NOTE | 2024-06-30 19:33 | RAD_ITS ---
INDICATION: injury EXAMINATION/TECHNIQUE: X-RAY - RIGHT XR Foot Min 3 Views COMPARISON: None. FINDINGS: No acute fracture or malalignment. No blastic or lytic lesions. Mild scattered degenerative changes. Diffuse soft tissue edema of the foot. RAD/Foot min 3 Views IMPRESSION: No acute fracture or malalignment. Electronically Signed: Toni Alvarez MD at 20:21 EDT ,
--- NOTE | 2024-06-30 19:49 | ED.VIS.LOWEX ---
HPI History of Present Illness HPI Narrative: Right foot pain at the MTP today that occurred around 8 AM while stepping up onto a cement block. Denies any other injuries. No prior history. Chief Complaint: Lower Extremity Injury Informant: patient Occured/Mechanism Mechanism/Context: Yes injury and Yes blunt trauma Onset/Context/Timing Onset: Today and Hours Context: Sudden Onset Timing: Continuous Quality of Pain: Sharp Current Severity: Mild Maximum Severity: Mild Associated Symptoms Associated Symptoms: Negative for Parasthesia, Weakness or Loss of Funtion Narrative Narrative: 59-year-old female on Eliquis due to A-fib and prior TIA and PE. Stepped up on a cement block around 8 AM today. Injuring the bottom of her right foot. Can walk but with pain. No prior history of surgery to this foot. No other complaints or injuries. Prior similar symptoms: No Recent Illness/Hospitalization: No PFSH PFSH Medical History Altered mental status Stroke-like symptoms Chronic anticoagulation AF (paroxysmal atrial fibrillation) Acute right-sided weakness Dysuria PONV (postoperative nausea and vomiting) Adult failure to thrive Contusion of hip Back contusion Difficulty in walking Impingement of left shoulder Enchondroma of left humerus History of Holter monitoring Loss of hearing Wears glasses Bipolar disorder History of steroid therapy History of renal disease Restless legs Sleep apnea Chronic cough History of skin cancer Disease of gingiva due to infection COVID-19 virus infection Degenerative tear of meniscus of left knee Osteoarthritis of left knee Cyclic vomiting syndrome Colitis Pain of left calf Kidney disease Sarcoidosis Morbid obesity Debility Myositis Stroke/cerebrovascular accident TIA (transient ischemic attack) History of atrial fibrillation Chest pain Diarrhea Bilateral flank pain Oral candidiasis Abdominal pain Bilateral foot pain Venous insufficiency of both lower extremities History of abnormal cervical Pap smear Wears dentures Post-menopausal Cancer Marijuana use Open wound Thyroid disease Walker as ambulation aid Arthritis Bladder disease High cholesterol Easy bruising Excessive bleeding Back pain Injury of head and neck Blackout Syncope Seizures Dietary restriction Difficulty chewing History of hiatal hernia History of ulceration History of IBS Gastric reflux Smoker CPAP (continuous positive airway pressure) dependence Shortness of breath on exertion Leg cramps History of edema History of echocardiogram Hx of tilt table evaluation History of stress test Cardiology follow-up encounter History of CHF (congestive heart failure) Family history of colon cancer Allergic rhinitis Osteoarthritis of right hip Nonrheumatic aortic (valve) insufficiency Non-rheumatic mitral regurgitation Heart failure Intertriginous dermatitis associated with moisture Psychosis Orthostatic hypotension Osteoarthritis DAPHNE (obstructive sleep apnea) Schizo NEC, chrn/exacerb Peripheral artery disease Pulmonary embolism Stroke Hypothyroidism HTN (hypertension) PAF (paroxysmal atrial fibrillation) Hypokalemia Hyponatremia Arthralgia of right hip Hip dislocation, right Enlarged aorta CKD (chronic kidney disease) Bipolar 1 disorder Cyst Non-convulsive status epilepticus Migraines Asthma Aortic valve insufficiency Hypertensive crisis without congestive heart failure Left arm swelling Conversion disorder with abnormal movement Gastritis Convulsion, non-epileptic Schizophrenia COPD, mild Depression Home Medications ?Medication ?Instructions ?Recorded ?Last Taken ?Type nitroglycerin 0.4 mg sublingual 0.4 mg sublingual PRN PRN CHEST 07/09/23 Unknown Rx tablet PAIN #25 tabs acetaminophen 325 mg capsule 325 mg PO Q4H PRN pain 01/04/24 03/24/24 History cyclobenzaprine 10 mg tablet 10 mg PO Q8H PRN spasms 01/04/24 03/23/24 History gabapentin 300 mg capsule 300 mg PO TID nerve 01/04/24 05/23/24 History methocarbamol 750 mg tablet 750 mg PO Q8H PRN pain 01/04/24 05/22/24 History sennosides 8.6 mg-docusate sodium 1 tab-cap PO BID constipation 01/04/24 03/23/24 History 50 mg tablet (Senna with Docusate Sodium) albuterol sulfate 90 mcg/actuation 2 puff inhalation Q4H PRN 01/11/24 05/23/24 Rx aerosol inhaler shortness of breath or wheezing #8.5 grams aripiprazole 15 mg tablet 15 mg PO DAILY bipolar 01/11/24 05/23/24 History carboxymethylcellulose sodium 0.5 1 drp ophthalmic (eye) BID eyes 01/11/24 05/23/24 History % eye drops lidocaine 5 % topical patch 3 patch topical Q24H pain 01/11/24 05/22/24 History trazodone 100 mg tablet 100 mg PO QHS sleep 01/11/24 03/23/24 History furosemide 40 mg tablet 40 mg PO DAILY #30 tabs 02/01/24 05/23/24 Rx spironolactone 25 mg tablet 25 mg PO DAILY #30 tabs 02/01/24 03/23/24 Rx fluticasone propionate 50 1 spray intranasal Q12H allergies 02/29/24 05/23/24 Rx mcg/actuation nasal #16 grams spray,suspension carvedilol 3.125 mg tablet 3.125 mg PO BID #60 TABLETS 03/26/24 05/23/24 Rx budesonide-formoterol HFA 160 2 inh inhalation DAILY asthma #3 ea 03/31/24 05/23/24 Rx mcg-4.5 mcg/actuation aerosol inhaler (Symbicort) melatonin 10 mg tablet 10 mg PO QHS for insomnia #90 04/24/24 05/22/24 Rx TABLETS montelukast 10 mg tablet 10 mg PO QHS for allergies #30 05/06/24 05/22/24 Rx TABLETS polyethylene glycol 3350 17 17 g PO QDAY PRN constipation #850 05/14/24 Unknown Rx gram/dose oral powder grams tiotropium bromide 1.25 2 puff PO DAILY PRN for asthma #4 05/19/24 Unknown Rx mcg/actuation mist for inhalation GMS (Spiriva Respimat) apixaban 5 mg tablet (Eliquis) 5 mg PO BID #60 tabs 05/21/24 05/23/24 Rx hydroxyzine pamoate 100 mg capsule 100 mg PO QHS 05/21/24 05/22/24 History mepolizumab 100 mg/mL subcutaneous 100 mg subcut Q4W 05/21/24 05/23/24 History syringe (Nucala) tizanidine 2 mg tablet 4 mg PO TID 05/21/24 05/23/24 History loratadine 10 mg tablet 10 mg PO QHS for allergies 05/23/24 05/22/24 History lactulose 20 gram/30 mL oral 20 g (30 mL) PO BID #3,000 mL 05/27/24 Unknown Rx solution amitriptyline 25 mg tablet 25 mg PO QHS #30 tabs 06/06/24 Unknown Rx ondansetron 4 mg disintegrating 4 mg PO Q6H PRN PRN Nausea #15 tabs 06/12/24 Unknown Rx tablet prednisone 20 mg tablet 60 mg (3 x 20 mg) PO DAILY #15 06/12/24 Unknown Rx TABLETS cholecalciferol (vitamin D3) 50 50 mcg PO DAILY vit #90 caps 06/19/24 Unknown Rx mcg (2,000 unit) capsule cyanocobalamin (vitamin B-12) 500 500 mcg PO DAILY vit #90 tabs 06/19/24 Unknown Rx mcg tablet levothyroxine 50 mcg tablet 50 mcg PO DAILY thyr #90 tabs 06/19/24 Unknown Rx losartan 50 mg tablet 50 mg PO DAILY bp #90 tabs 06/19/24 Unknown Rx prednisone 10 mg tablet 10 mg PO TID #10 tabs 06/20/24 Unknown Rx amoxicillin 875 mg-potassium 1 tab PO Q12H #20 tabs 06/25/24 Unknown Rx clavulanate 125 mg tablet benzonatate 200 mg capsule 200 mg PO TID PRN cough #30 caps 06/25/24 Unknown Rx budesonide 3 mg 6 mg (2 x 3 mg) PO DAILY #60 ea 06/25/24 Unknown Rx capsule,delayed,extended release prochlorperazine maleate 5 mg 5 mg PO TID PRN nausea and 06/27/24 Unknown Rx tablet vomiting 30 days #90 tabs omeprazole 40 mg capsule,delayed 40 mg PO DAILY #30 caps 06/30/24 Unknown Rx release Allergy/AdvReac Type Severity Reaction Status Date / Time adhesive tape Allergy Rash Verified 06/30/24 19:03 atropine sulfate (From Allergy Hives Verified 06/30/24 19:03 ) codeine phosphate (From Allergy breathing Verified 06/30/24 19:03 Tylenol-Codeine #3) problems divalproex sodium (From Allergy Unknown Verified 06/30/24 19:03 Depakote) guaifenesin Allergy Itching Verified 06/30/24 19:03 hydrocodone Allergy Itching Verified 06/30/24 19:03 hydromorphone HCl (From Allergy facial Verified 06/30/24 19:03 Dilaudid) blisters,itching hyoscyamine sulfate (From Allergy Hives Verified 06/30/24 19:03 ) latex Allergy Rash Verified 06/30/24 19:03 pantoprazole sodium (From Allergy Rash Verified 06/30/24 19:03 Protonix) phenobarbital (From ) Allergy Hives Verified 06/30/24 19:03 promethazine HCl (From Allergy Anaphylaxis Verified 06/30/24 19:03 Phenergan) ramipril Allergy Unknown Verified 06/30/24 19:03 scopolamine hydrobromide Allergy Hives Verified 06/30/24 19:03 (From ) tramadol Allergy Itching Verified 06/30/24 19:03 ziprasidone mesylate (From Allergy Unknown Verified 06/30/24 19:03 Geodon) amlodipine AdvReac Vomiting Verified 06/30/24 19:03 levofloxacin (From Levaquin) AdvReac Itching Verified 06/30/24 19:03 metoclopramide (From Reglan) AdvReac Other Verified 06/30/24 19:03 Sulfa (Sulfonamide AdvReac Vomiting Verified 06/30/24 19:03 Antibiotics) ziprasidone HCl (From Geodon) AdvReac tremors Verified 06/30/24 19:03 Family History Sister Myocardial infarction Colon cancer Mother Hypertension Arthritis Brain aneurysm Heart disease High cholesterol Sister Colon cancer Heart disease High cholesterol Hypertension Arthritis Grandmother Arthritis Diabetes CVA (cerebral vascular accident) Father Heart disease High cholesterol Hypertension Surgical History History of back surgery (~12/2023) Previous back surgery Cataract extraction status History of esophagogastroduodenoscopy (EGD) Hx of colonoscopy History of laparoscopic cholecystectomy History of uterine suspension procedure S/P carpal tunnel release bladder sling left foot Social History household members: none number of children: 4 current occupational status: unemployed history of recent travel: No Smoking Status: Former smoker quit date: 11/12/23 Tobacco: How many years used: 26 Electronic Cigarette Use: not used quit status: considering quitting alcohol intake: never substance use type: does not use caffeine: Yes Type: coffee what type of physical activity do you participate in: none seatbelt use: never do you feel safe at home: Yes additional social history: single ROS ROS ED ROS Narrative COVID a month ago. Constitutional Constitutional ED: Denies chills or fever(s) Eyes Eyes: Denies blurry vision ENT ENT ED: Denies ear pain Cardiovascular Cardiovascular: Denies chest pain Respiratory/Chest Respiratory/Chest: Reports cough Gastrointestinal Gastrointestinal: Denies abdominal pain Genitourinary Genitourinary ED: Denies dysuria Musculoskeletal Musculoskeletal: Denies arthralgias Integumentary Denies abscess Neurologic Neurologic: Denies headache(s) Psychiatric Psychiatric: Denies anxiety Endocrine Endocrinology: Denies polydipsia Hematologic/Lymphatic Hematologic/Lymphatic: Denies easy bleeding Allergic/Immunologic Allergic/Immunologic ED: Denies mouth swelling EXAM Physical Exam Narrative Exam Narrative: Well-appearing 59-year-old female. Vital signs stable afebrile. H EENT exam unremarkable atraumatic. Pupils round reactive light. Neck nontender. Back and spine nontender. Lungs clear to auscultation. Heart regular rhythm no murmur. Rate about 70. Chest wall ribs nontender abdomen is soft and nontender. Pelvic girdle is nontender. Moving all 4 extremities. Neurovascular intact. Right ankle nontender nonswollen. Achilles tendon intact. Dorsi plantarflexion intact. Right foot tenderness along the metatarsophalangeal joints of the entire right foot on the plantar aspect. No bony deformity. Able to wiggle her toes. Normal touch sensation. Normal DP pulse. Skin intact. No infection. Const Vital Signs: 06/30/24 19:02 Temperature 97.9 F Temperature Source Temporal Pulse Rate 74 Respiratory Rate 18 Blood Pressure 171/68 H Blood Pressure Mean 102 Pulse Ox 96 Oxygen Delivery Method Room Air Positive well nourished and well developed; Negative for cachectic, contractures or unkempt General Appearance ED: well developed and NAD; Negative for unkempt, cachectic or contractures Nutritional Appearance: Negative for cachectic HEENT Reports moist mucous membranes normocephalic and atraumatic; Negative for trauma or tenderness Eyes PERRL Neck full ROM and supple Chest Wall inspection of chest normal and palpation of chest normal Resp normal respiratory effort, no retractions and clear to auscultation bilaterally Cardio regular rate, regular rhythm, S1 normal heart sound, S2 normal heart sound and no murmurs Rate: Negative for bradycardia or tachycardic Rhythm: Negative for abnormal rhythm Bruits: Negative for other GI non-tender, non-distended and no masses Inspection: Negative for abdominal distention Auscultation: normoactive bowel sounds Palpation: soft; Negative for tender, guarding or rebound tenderness present Back/Spine no CVA tenderness General Back: Negative for CVA tenderness Cervical Spine: Negative for cervical spine tenderness Thoracic Spine / Upper Back: Negative for thoracic spinal tenderness Lumbar Spine / Lower Back: Negative for lumbar spinal tenderness Extremity normal to inspection and full ROM Extremity Narrative: Right foot MTPs plantar aspect tenderness. No deformity. Skin intact. No infection or foreign body. No puncture wound. General Extremety ED: Yes weight-bearing difficulty General Extremity: weight-bearing difficulty Neuro oriented x3, CN's II-XII intact bilaterally, moves all extremities and no sensory deficits noted Sensorium / Orientation: alert, oriented to person, oriented to place and oriented to time; Negative for orientation impaired, confused or lethargic Motor Exam: strength 5/5 throughout; Negative for general weakness Psych mental status grossly normal Appearance: Negative for unkempt Speech: No other Mood & Affect: Negative for anxious Skin no wounds Lesions: no lesions Rashes: no rashes Trauma: Negative for abrasion, laceration or puncture MDM MDM MDM Narrative Medical decision making narrative: 59-year-old stepped up on a cement block injuring the bottom of her right foot. X-ray was obtained. 3 view right foot shows no acute fracture or dislocation. Discussed x-ray results with patient. Ice. Tylenol for pain. Elevate. Postop shoe if not improving she already sees the acquisitions assistant Dr. Addy Katz. History & Record Review Discussion w/independent historian: Patient Radiography Diagnostic Testing: Right foot x-ray, 3 views, interpreted by myself, shows no acute fracture, no foreign body. No dislocation. Discharge Plan Triage Chief Complaint: Lower Extremity Injury ED Provider: Addy Early Dx/Rx/DC Orders Clinical Impression: Contusion of foot, right, History of atrial fibrillation, Chronic anticoagulation Instructions: ED Foot Contusion Prescriptions: No Action acetaminophen 325 mg capsule 325 mg PO Q4H PRN (Reason: pain) cyclobenzaprine 10 mg tablet 10 mg PO Q8H PRN (Reason: spasms) gabapentin 300 mg capsule 300 mg PO TID methocarbamol 750 mg tablet 750 mg PO Q8H PRN (Reason: pain) sennosides-docusate sodium [Senna with Docusate Sodium] 8.6-50 mg tablet 1 tab-cap PO BID lactulose 20 gram/30 mL solution 20 g PO BID Qty: 3000 3RF Nucala 100 mg/mL syringe 100 mg subcut Q4W budesonide-formoterol [Symbicort] 160-4.5 mcg/actuation HFA aerosol inhaler 2 inh inhalation DAILY Qty: 3 3RF hydroxyzine pamoate 100 mg capsule 100 mg PO QHS tizanidine 2 mg tablet 4 mg PO TID Eliquis 5 mg tablet 5 mg PO BID Qty: 60 11RF amoxicillin-pot clavulanate 875-125 mg tablet 1 tab PO Q12H Qty: 20 0RF benzonatate 200 mg capsule 200 mg PO TID PRN (Reason: cough) Qty: 30 0RF aripiprazole 15 mg tablet 15 mg PO DAILY trazodone 100 mg tablet 100 mg PO QHS carboxymethylcellulose sodium 0.5 % drops 1 drp ophthalmic (eye) BID lidocaine 5 % adhesive patch,medicated 3 patch topical Q24H Rx Instructions: APPLY ONE PATCH TO PAINFUL AREA FOR UP TO 12 HOURS, THEN REMOVE FOR 12 HOURS loratadine 10 mg tablet 10 mg PO QHS prednisone 20 mg tablet 60 mg PO DAILY Qty: 15 0RF ondansetron 4 mg tablet,disintegrating 4 mg PO Q6H PRN PRN (Reason: Nausea) Qty: 15 0RF nitroglycerin 0.4 mg tablet, sublingual 0.4 mg SUBLINGUAL PRN PRN (Reason: CHEST PAIN) Qty: 25 3RF albuterol sulfate 90 mcg/actuation HFA aerosol inhaler 2 puff inhalation Q4H PRN (Reason: shortness of breath or wheezing) Qty: 8.5 6RF Rx Instructions: administer with spacer spironolactone 25 mg tablet 25 mg PO DAILY Qty: 30 11RF furosemide 40 mg tablet 40 mg PO DAILY Qty: 30 11RF fluticasone propionate 50 mcg/actuation spray,suspension 1 spray intranasal Q12H Qty: 16 0RF Rx Instructions: USE 1 SPRAY IN EACH NOSTRIL TWICE A DAY FOR ALLERGIES carvedilol 3.125 mg tablet 3.125 mg PO BID Qty: 60 11RF melatonin 10 mg tablet 10 mg PO QHS Qty: 90 0RF montelukast 10 mg tablet 10 mg PO QHS Qty: 30 2RF polyethylene glycol 3350 17 gram/dose powder 17 g PO QDAY PRN (Reason: constipation) Qty: 850 1RF Spiriva Respimat 1.25 mcg/actuation mist 2 puff PO DAILY PRN (Reason: for asthma) Qty: 4 4RF amitriptyline 25 mg tablet 25 mg PO QHS Qty: 30 1RF levothyroxine 50 mcg tablet 50 mcg PO DAILY Qty: 90 1RF Rx Instructions: TAKE 1 TABLET BY MOUTH DAILY FOR THYROID losartan 50 mg tablet 50 mg PO DAILY Qty: 90 0RF cyanocobalamin (vitamin B-12) 500 mcg tablet 500 mcg PO DAILY Qty: 90 0RF cholecalciferol (vitamin D3) 50 mcg (2,000 unit) capsule 50 mcg PO DAILY Qty: 90 0RF prednisone 10 mg tablet 10 mg PO TID Qty: 10 0RF budesonide 3 mg capsule,delayed,extend.release 6 mg PO DAILY Qty: 60 3RF prochlorperazine maleate 5 mg tablet 5 mg PO TID PRN (Reason: nausea and vomiting) 30 Days Qty: 90 4RF omeprazole 40 mg capsule,delayed release(DR/EC) 40 mg PO DAILY Qty: 30 0RF Primary Care Provider: Elizabeth Santamaria Referrals: Elizabeth Santamaria MD [Primary Care Provider] - Brad Katz DPM [Med Staff - Active Staff] - 1 Week if not improving Activity Restrictions/Additional Instructions: Ice and elevate your foot to decrease pain and swelling. Tylenol for pain Postop shoe to help cushion weightbearing when you walk. Follow-up with your acquisitions assistant if not improving in the next week. Your x-rays today there was no broken bones seen. Print Language: Luxembourgish Disposition Disposition: Home, Self Care
== END 2024-06-30 20:02 | disposition home or self-care (01) ==
PROVIDERS: Emergency Provider Emergency Medicine; PCP Internal Medicine; Visit Provider Emergency Medicine
DX: S90.31XA Contusion of right foot, initial encounter (principal); I50.9 Heart failure, unspecified; I13.0 Hypertensive heart and chronic kidney disease with heart failure and stage 1 through stage 4 chronic kidney disease, or unspecified chronic kidney disease; J44.9 Chronic obstructive pulmonary disease, unspecified; I48.0 Paroxysmal atrial fibrillation; W22.8XXA Striking against or struck by other objects, initial encounter; E78.00 Pure hypercholesterolemia, unspecified; N18.9 Chronic kidney disease, unspecified; Z79.01 Long term (current) use of anticoagulants; Z86.73 Personal history of transient ischemic attack (TIA), and cerebral infarction without residual deficits; Z87.891 Personal history of nicotine dependence
CPT/HCPCS: 73630; 99283

== ENCOUNTER → 2024-08-04 | Outpatient (CLI) | payer MEDICAID, SELFPAY ==
--- NOTE | 2024-08-04 08:45 | MRI_ITS ---
EXAM: MR LEFT LOWER EXTREMITY WITHOUT INTRAVENOUS CONTRAST, KNEE CLINICAL INDICATION: PAIN X 1.5 YRS, HURTS TO STRAIGHTEN TECHNIQUE: Multiplanar and multisequence MR images of the left knee without intravenous contrast. COMPARISON: July 03, 2022 FINDINGS: ARTIFACTS: At least moderate motion artifact limits assessment. BONES/JOINTS: Moderate to severe osteoarthritic changes at the lateral patellofemoral articulation with full-thickness chondral loss and subchondral cystic changes noted. Mild lateral subluxation and tilting of the patella. Physiologic amount of suprapatellar joint fluid. No fracture. No abnormal bone marrow signal. No synovial hypertrophy. No intra-articular body. EXTENSOR MECHANISM: Intact. MEDIAL MENISCUS: Unremarkable. LATERAL MENISCUS: Unremarkable. MEDIAL CAPSULE/SUPPORTING STRUCTURES: Unremarkable. Intact. LATERAL CAPSULE/SUPPORTING STRUCTURES: Unremarkable. Lateral collateral ligamentous complex, inclusive of the popliteal tendon, are intact. ANTERIOR CRUCIATE LIGAMENT: Unremarkable. Intact. POSTERIOR CRUCIATE LIGAMENT: Unremarkable. Intact. MUSCLES: Unremarkable. CARTILAGE: See above. FLUID: Unremarkable. No joint effusion. No Guerin''s cyst. SOFT TISSUES: Nonorganized focal fluid identified along the anterior/anterolateral aspect of the proximal patellar tendon region (tendon is intact). MRI/Lower Ext Joint Only (Routine) IMPRESSION: Moderate to severe osteoarthritic changes at the lateral patellofemoral articulation with full-thickness chondral loss and subchondral cystic changes noted. Mild lateral subluxation and tilting of the patella. Electronically Signed: Chacorta Powell MD at 15:23 EDT ,
== END | disposition home or self-care (01) ==
LOC: MRI 08:07
PROVIDERS: PCP Internal Medicine; Referring Provider Anesthesiology; Visit Provider Anesthesiology
DX: M25.562 Pain in left knee (principal)
CPT/HCPCS: 73721

== ENCOUNTER → 2024-10-02 | Outpatient (CLI) | payer MEDICAID, SELFPAY ==
--- NOTE | 2024-10-02 13:12 | RAD_ITS ---
INDICATION: PAIN EXAMINATION/TECHNIQUE: X-RAY - LEFT XR Shoulder Min 2 Views 2 VIEWS COMPARISON: No relevant prior comparison study available FINDINGS: SOFT TISSUES: No soft tissue swelling or gas. No radiopaque foreign body. BONES/JOINTS: No acute fracture or subluxation.. Normal alignment. Mild degenerative changes of the acromioclavicular joint.. No sclerotic or destructive changes observed. OTHER: Left basilar atelectasis. RAD/Shoulder min 2 Views IMPRESSION: No acute abnormalities. Mild degenerative arthrosis of the left AC joint. Electronically Signed: Toni Alvarez MD at 19:02 EST ,
== END | disposition home or self-care (01) ==
LOC: RAD 13:01
PROVIDERS: PCP Internal Medicine; Referring Provider Anesthesiology; Visit Provider Anesthesiology
DX: M25.512 Pain in left shoulder (principal)
CPT/HCPCS: 73030

== ENCOUNTER → 2024-10-16 | Outpatient (CLI) | payer MEDICAID, SELFPAY ==
--- NOTE | 2024-10-16 15:16 | MRI_ITS ---
STUDY: MRI LEFT SHOULDER REASON FOR EXAM: Female, 59 years old. SHOULDER PAIN LT TECHNIQUE: Standardized fat and water weighted pulse sequences were obtained in all 3 orthogonal planes. COMPARISON: None. FINDINGS: There is supraspinatus tendinosis with articular surface fraying, but no full-thickness tear (coronal T2 series 5 images 10-12). Normal infraspinatus tendon. Normal subscapularis tendon. Normal teres minor tendon. Normal supraspinatus muscle. Normal infraspinatus muscle. Normal subscapularis muscle. Normal teres minor muscle. Normal glenohumeral articulation. There is a 1.2 cm enchondroma in the humeral neck. Normal biceps labral complex. Normal intracapsular long biceps tendon. Normal labrum. Normal capsulo-ligamentous complex. Normal rotator interval. There is mild hypertrophic acromioclavicular arthrosis, with inferior osteophyte formation, with mild effacement of the supraspinatus myotendinous junction (coronal PD series 4 images 8-9). There is a Type II morphology (curved), with a neutral orientation. There is no subacromial-subdeltoid bursal fluid. Normal visualized coracohumeral and coracoacromial ligaments. Normal quadrilateral space. Normal axillary space. Normal deltoid muscle. Normal trapezius muscle. MRI/Upper Ext Joint Only(Routine) IMPRESSION: Supraspinatus tendinosis with articular surface fraying, but no full-thickness rotator cuff tear. Mild hypertrophic acromioclavicular arthrosis, with inferior osteophyte formation, with mild effacement of the supraspinatus myotendinous junction. 1.2 cm enchondroma in the humeral neck. Electronically Signed: Dhruv Salamanca MD at 9:07 EST ,
--- NOTE | 2024-10-16 17:00 | RAD_ITS ---
EXAM: XR <TEMPLATE> CLINICAL INDICATION: LIMB LENGTH DIFFERENCE LOWER EXTREMITY TECHNIQUE: X-ray bone length studies scanograms. COMPARISON: No relevant prior studies available. FINDINGS: The right knee joint measures at 54 cm while the left knee joint measures at its 55 cm. The right tibiotalar joint measures at 19.5 cm and the left tibiotalar joint measures at 20 cm. Hip joints are not well visualized. RAD/Bone Length IMPRESSION: Minimal elevation of the left knee and ankle joints above the corresponding right-sided joints. Electronically Signed: Eloy Raygoza MD at 0:00 EST ,
== END | disposition home or self-care (01) ==
PROVIDERS: PCP Internal Medicine; Referring Provider Anesthesiology; Visit Provider Anesthesiology
DX: M25.512 Pain in left shoulder (principal); M21.762 Unequal limb length (acquired), left tibia
CPT/HCPCS: 73221; 77073

== ENCOUNTER 2024-10-23 13:30 | Outpatient (RCR) | payer MEDICAID, SELFPAY ==
--- NOTE | 2024-09-18 11:23 | HP.PTEVAL_ITS ---
Patient's Visit Information Visit Information Visit Information: NIGHAT TIMMONS is a 59 year old F referred to Physical Therapy by Dr. Amador Beach DO with a diagnosis of L knee OA. Date of Evaluation: 09/17/24 Physical Therapist: Isaac Montoya, PT, ATC Visit Plan Frequency: 2x /Week Duration: 4 Weeks Plan: L knee stretching and strengthening, balance and proprio, core strengthening, nustep, and HEP Subjective Subjective: Pt is a Fall risk secondary to L knee giving out on herPt reports she has had L knee pain for over a year. Pt notes the pain has progressively worsened over this time span. Pt reports she has had an MRI on her L knee which showed significant degeneration. Pt reports she was referred to Dr. Beach where it was determined she needs a TKA. However, pt notes she has to lose 35 pounds and try gel injections before she is able to have the surgery. No PMHx of L knee complications. Pt denies tingling or numbness in L knee at this time. Pt reports she has had a lot of back pain over the years and had surgery in December of this year. Pt reports sleep difficulty secondary to pain. Pt reports difficulty with all sit to stand transfers secondary to pain. Pt notes she has one step into the house which is very difficult for her to negotiate. Pt reports her L knee will give out on her. Pt notes she has fallen 4 times in the past 3 weeks. 9/10 pain at rest, 10/10 pain at worst Pain L knee: Pain Intensity (Out of 10): 9 Pain Intensity Range: 10 Objective Objective: Neuro: B LE sensation is WNL to light touch Palpation: Pt has severe pain to the medial and lateral aspect of L knee joint. ROM: R knee 0-90 degrees; L knee 0-35-70 degrees MMT: L knee flex= 12, ext= 9 #F; R knee flex= 28, ext= 30 #F TU sec Balance/Special Test Scores Lower Extremity Functional Score: 14 Goals Goal 1:: Decrease L knee pain x 50% to aid with sleep Goal Time Frame: 4-6 Weeks Goal 2:: Increase L knee ROM x 20 degrees to aid with ambulation Goal Time Frame: 4-6 Weeks Goal 3:: Increase L knee extension strength x 10 #F to aid with stair negotiation Goal Time Frame: 4-6 Weeks Goal 4:: I with HEP Goal Time Frame: 4-6 Weeks Rehabilitation Potential Physical Therapy Diagnosis: Pt has L knee pain, weakness, and limited ROM secondary to L knee OA Rehabilitation Potential: Good Anticipated Interventions Patient/Client Instruction: Educate patient on: Condition and Plan of Care For the Purpose of:: To improve self management Therapeutic Exercise to Include: Strength training, Endurance training, Balance training, Flexibilty training and Dynamic Lumbar Stabilization For the Purpose of:: To decrease pain, To increase ROM and To improve muscle performance and motor function Cryotherapy (ice pack, ice massage): Yes For the Purpose of:: To decrease pain Text: Thank you for the opportunity to evaluate your patient. For Medicare and Medicare HMO plans, please review the plan of care and approve it. It will need to be FAXED BACK to us at [phone] for Medicare purposes. For Medicare only, by signing this I certify the plan of care. Please let me know if there are questions or concerns regarding this plan of care. Physician Signature: Date:
--- NOTE | 2024-10-23 15:04 | HP.PTDCSUM ---
Discharge Summary D/C summary: It has been my pleasure to treat NIGHAT TIMMONS referred by Dr. Amador Beach DO, with the diagnosis of L knee OA for a total of 9 visit(s). Discharge Date: Please see the following information for a summary of their discharge status. Subjective Subjective: I am still sore, but I am a lot stronger. My knee doesnt give out on me now Pain L knee: Pain Intensity (Out of 10): 6 Overall Improvement % Improvement: 80 Objective Objective/Function: L knee pain is now 6/10. Pain will awaken her 1 time per night Pt is I with HEP L knee MMT: flex= 35, ext= 35 #F L knee ROM: 0-107 degrees Pt has achieved all Rx goals Goals Goal 1:: Decrease L knee pain x 50% to aid with sleep Goal Progress: Goal Met Goal 2:: Increase L knee ROM x 20 degrees to aid with ambulation Goal Progress: Goal Met Goal 3:: Increase L knee extension strength x 10 #F to aid with stair negotiation Goal Progress: Goal Met Goal 4:: I with HEP Goal Progress: Goal Met Plan Plan: Discharge to HEP D/C Information d/c sentence: If there are questions or concerns regarding this patient's physical therapy, please feel free to call me at [phone]. Thank you for the referral of this patient. Sincerely, Isaac Montoya, PT, ATC Balance/Gait/Functional tests Balance/Special Test Scores Lower Extremity Functional Score: 51 Improvement % Improvement: 80
== END 2024-10-23 19:00 | disposition home or self-care (01) ==
LOC: PT 13:30
PROVIDERS: PCP Internal Medicine; Visit Provider Orthopaedic Surgery
DX: M17.12 Unilateral primary osteoarthritis, left knee (principal)
CPT/HCPCS: 97110; 97161; 97530

== ENCOUNTER 2024-11-02 13:05 | Emergency (ER) | payer MEDICAID, SELFPAY ==
[2024-11-02 13:06] VITALS: BP 169/86; PULSE 96; RESP 16; TEMP 35.5; O2SAT 99; BMI 47.9
--- NOTE | 2024-11-02 13:16 | RAD_ITS ---
INDICATION: fall, pain EXAMINATION/TECHNIQUE: X-RAY - XR Spine Lumbar 2 or 3 Views COMPARISON: No relevant prior comparison study available FINDINGS: VERTEBRAE: Preserved vertebral body height. No fracture. Fusion of L4 and L5 vertebrae with bilateral pedicle screws. Minimal anterolisthesis of L4 over L5. Preservation of the normal lumbar lordosis. Substantial scoliosis. DISCS: Narrowing of L3-L4 and L5-S1 disc spaces. INCLUDED ABDOMEN: Included bowel gas pattern is non-obstructive. RAD/Lumbar Spine 2 or 3 Views IMPRESSION: No evidence of lumbar spinal fracture or spondylolisthesis. Electronically Signed: Farzad Jordan MD at 13:50 EST ,
[2024-11-02] MEDS: oxyCODONE 5 MG Tablet PO (13:21)
--- NOTE | 2024-11-02 13:52 | EDS_ITS ---
HPI <CALEB Pérez - Last Filed: 11/02/24 15:45> History of Present Illness Chief Complaint: Back Narrative Narrative: Patient presenting today with low back pain she has had over the last few days after a mechanical fall occurred outside. She reports that she slipped on the ice and fell on her back. She thinks she may have hit her head but denies any LOC, headache, nausea, or vomiting. She reports a history of chronic back pain and is in pain management for this. She has been trying Tylenol and a lidocaine patch with minimal relief. She does get a small course of Percocet occasionally from pain management but no longer has any of this left to take. She is able to ambulate. She denies bowel/bladder incontinence, urinary retention, saddle paresthesia, leg weakness, history of IV drug use, and urinary symptoms. PFSH <CALEB Pérez - Last Filed: 11/02/24 15:45> [facility] Medical History Altered mental status Stroke-like symptoms Chronic anticoagulation AF (paroxysmal atrial fibrillation) Acute right-sided weakness Dysuria PONV (postoperative nausea and vomiting) Adult failure to thrive Contusion of hip Back contusion Difficulty in walking Impingement of left shoulder Enchondroma of left humerus History of Holter monitoring Loss of hearing Wears glasses Bipolar disorder History of steroid therapy History of renal disease Restless legs Sleep apnea Chronic cough History of skin cancer Disease of gingiva due to infection COVID-19 virus infection Degenerative tear of meniscus of left knee Osteoarthritis of left knee Cyclic vomiting syndrome Colitis Pain of left calf Kidney disease Sarcoidosis Morbid obesity Debility Myositis Stroke/cerebrovascular accident TIA (transient ischemic attack) History of atrial fibrillation Chest pain Diarrhea Bilateral flank pain Oral candidiasis Abdominal pain Bilateral foot pain Venous insufficiency of both lower extremities History of abnormal cervical Pap smear Wears dentures Post-menopausal Cancer Marijuana use Open wound Thyroid disease Walker as ambulation aid Arthritis Bladder disease High cholesterol Easy bruising Excessive bleeding Back pain Injury of head and neck Blackout Syncope Seizures Dietary restriction Difficulty chewing History of hiatal hernia History of ulceration History of IBS Gastric reflux Smoker CPAP (continuous positive airway pressure) dependence Shortness of breath on exertion Leg cramps History of edema History of echocardiogram Hx of tilt table evaluation History of stress test Cardiology follow-up encounter History of CHF (congestive heart failure) Family history of colon cancer Allergic rhinitis Osteoarthritis of right hip Nonrheumatic aortic (valve) insufficiency Non-rheumatic mitral regurgitation Heart failure Intertriginous dermatitis associated with moisture Psychosis Orthostatic hypotension Osteoarthritis DAPHNE (obstructive sleep apnea) Schizo NEC, chrn/exacerb Peripheral artery disease Pulmonary embolism Stroke Hypothyroidism HTN (hypertension) PAF (paroxysmal atrial fibrillation) Hypokalemia Hyponatremia Arthralgia of right hip Hip dislocation, right Enlarged aorta CKD (chronic kidney disease) Bipolar 1 disorder Cyst Non-convulsive status epilepticus Migraines Asthma Aortic valve insufficiency Hypertensive crisis without congestive heart failure Left arm swelling Conversion disorder with abnormal movement Gastritis Convulsion, non-epileptic Schizophrenia COPD, mild Depression Home Medications ?Medication ?Instructions ?Recorded ?Last Taken ?Type nitroglycerin 0.4 mg sublingual 0.4 mg sublingual PRN PRN CHEST 07/09/23 Unknown Rx tablet PAIN #25 tabs acetaminophen 325 mg capsule 325 mg PO Q4H PRN pain 01/04/24 03/24/24 History cyclobenzaprine 10 mg tablet 10 mg PO Q8H PRN spasms 01/04/24 03/23/24 History gabapentin 300 mg capsule 300 mg PO TID nerve 01/04/24 05/23/24 History methocarbamol 750 mg tablet 750 mg PO Q8H PRN pain 01/04/24 05/22/24 History sennosides 8.6 mg-docusate sodium 1 tab-cap PO BID constipation 01/04/24 03/23/24 History 50 mg tablet (Senna with Docusate Sodium) aripiprazole 15 mg tablet 15 mg PO DAILY bipolar 01/11/24 05/23/24 History carboxymethylcellulose sodium 0.5 1 drp ophthalmic (eye) BID eyes 01/11/24 05/23/24 History % eye drops lidocaine 5 % topical patch 3 patch topical Q24H pain 01/11/24 05/22/24 History trazodone 100 mg tablet 100 mg PO QHS sleep 01/11/24 03/23/24 History furosemide 40 mg tablet 40 mg PO DAILY #30 tabs 02/01/24 05/23/24 Rx fluticasone propionate 50 1 spray intranasal Q12H allergies 02/29/24 05/23/24 Rx mcg/actuation nasal #16 grams spray,suspension carvedilol 3.125 mg tablet 3.125 mg PO BID #60 TABLETS 03/26/24 05/23/24 Rx budesonide-formoterol HFA 160 2 inh inhalation DAILY asthma #3 ea 03/31/24 05/23/24 Rx mcg-4.5 mcg/actuation aerosol inhaler (Symbicort) polyethylene glycol 3350 17 17 g PO QDAY PRN constipation #850 05/14/24 Unknown Rx gram/dose oral powder grams tiotropium bromide 1.25 2 puff PO DAILY PRN for asthma #4 05/19/24 Unknown Rx mcg/actuation mist for inhalation GMS (Spiriva Respimat) apixaban 5 mg tablet (Eliquis) 5 mg PO BID #60 tabs 05/21/24 05/23/24 Rx hydroxyzine pamoate 100 mg capsule 100 mg PO QHS 05/21/24 05/22/24 History mepolizumab 100 mg/mL subcutaneous 100 mg subcut Q4W 05/21/24 05/23/24 History syringe (Nucala) tizanidine 2 mg tablet 4 mg PO TID 05/21/24 05/23/24 History lactulose 20 gram/30 mL oral 20 g (30 mL) PO BID #3,000 mL 05/27/24 Unknown Rx solution ondansetron 4 mg disintegrating 4 mg PO Q6H PRN PRN Nausea #15 tabs 06/12/24 Unknown Rx tablet levothyroxine 50 mcg tablet 50 mcg PO DAILY thyr #90 tabs 06/19/24 Unknown Rx benzonatate 200 mg capsule 200 mg PO TID PRN cough #30 caps 06/25/24 Unknown Rx prochlorperazine maleate 5 mg 5 mg PO TID PRN nausea and 06/27/24 Unknown Rx tablet vomiting 30 days #90 tabs amitriptyline 25 mg tablet 25 mg PO QHS #30 tabs 07/31/24 Unknown Rx loratadine 10 mg tablet 10 mg PO QHS for allergies #90 08/13/24 Unknown Rx TABLETS omeprazole 40 mg capsule,delayed 40 mg PO DAILY #90 caps 08/14/24 Unknown Rx release losartan 25 mg tablet 25 mg PO QDAY #90 tabs 08/27/24 Unknown Rx cholecalciferol (vitamin D3) 50 50 mcg PO DAILY vit #90 caps 09/09/24 Unknown Rx mcg (2,000 unit) capsule cyanocobalamin (vitamin B-12) 500 500 mcg PO DAILY vit #90 tabs 09/09/24 Unknown Rx mcg tablet albuterol sulfate 90 mcg/actuation 2 puff inhalation Q4H PRN 09/30/24 Unknown Rx aerosol inhaler shortness of breath or wheezing #8.5 grams melatonin 10 mg tablet 10 mg PO QHS for insomnia #30 10/13/24 Unknown Rx TABLETS montelukast 10 mg tablet 10 mg PO QHS for allergies #30 10/13/24 Unknown Rx TABLETS Allergy/AdvReac Type Severity Reaction Status Date / Time adhesive tape Allergy Rash Verified 11/02/24 13:06 atropine sulfate (From Allergy Hives Verified 11/02/24 13:06 ) codeine phosphate (From Allergy breathing Verified 11/02/24 13:06 Tylenol-Codeine #3) problems divalproex sodium (From Allergy Unknown Verified 11/02/24 13:06 Depakote) guaifenesin Allergy Itching Verified 11/02/24 13:06 hydrocodone Allergy Itching Verified 11/02/24 13:06 hydromorphone HCl (From Allergy facial Verified 11/02/24 13:06 Dilaudid) blisters,itching hyoscyamine sulfate (From Allergy Hives Verified 11/02/24 13:06 ) latex Allergy Rash Verified 11/02/24 13:06 pantoprazole sodium (From Allergy Rash Verified 11/02/24 13:06 Protonix) phenobarbital (From ) Allergy Hives Verified 11/02/24 13:06 promethazine HCl (From Allergy Anaphylaxis Verified 11/02/24 13:06 Phenergan) ramipril Allergy Unknown Verified 11/02/24 13:06 scopolamine hydrobromide Allergy Hives Verified 11/02/24 13:06 (From ) tramadol Allergy Itching Verified 11/02/24 13:06 ziprasidone mesylate (From Allergy Unknown Verified 11/02/24 13:06 Geodon) amlodipine AdvReac Vomiting Verified 11/02/24 13:06 levofloxacin (From Levaquin) AdvReac Itching Verified 11/02/24 13:06 metoclopramide (From Reglan) AdvReac Other Verified 11/02/24 13:06 Sulfa (Sulfonamide AdvReac Vomiting Verified 11/02/24 13:06 Antibiotics) ziprasidone HCl (From Geodon) AdvReac tremors Verified 11/02/24 13:06 Family History Sister Myocardial infarction Colon cancer Mother Hypertension Arthritis Brain aneurysm Heart disease High cholesterol Sister Colon cancer Heart disease High cholesterol Hypertension Arthritis Grandmother Arthritis Diabetes CVA (cerebral vascular accident) Father Heart disease High cholesterol Hypertension Surgical History History of back surgery (~12/2023) Previous back surgery Cataract extraction status History of esophagogastroduodenoscopy (EGD) Hx of colonoscopy History of laparoscopic cholecystectomy History of uterine suspension procedure S/P carpal tunnel release bladder sling left foot Social History household members: none number of children: 4 current occupational status: unemployed history of recent travel: No Smoking Status: Former smoker quit date: 11/12/23 Tobacco: How many years used: 26 Electronic Cigarette Use: not used quit status: considering quitting alcohol intake: never substance use type: does not use caffeine: Yes Type: coffee what type of physical activity do you participate in: none seatbelt use: never do you feel safe at home: Yes additional social history: single ROS <CALEB Pérez - Last Filed: 11/02/24 15:45> ROS ED Constitutional Constitutional ED: Denies chills or fever(s) Eyes Eyes: Denies blurry vision or diplopia Cardiovascular Cardiovascular: Denies chest pain Respiratory/Chest Respiratory/Chest: Denies dyspnea Genitourinary Genitourinary ED: Denies dysuria, hematuria or urinary frequency Musculoskeletal Musculoskeletal: Reports back pain Integumentary Denies rash Neurologic Neurologic: Denies paresthesias EXAM <CALEB Pérez - Last Filed: 11/02/24 15:45> Physical Exam Const Vital Signs: 11/02/24 13:06 Temperature 96 F L Temperature Source Temporal Pulse Rate 96 Respiratory Rate 16 Blood Pressure 169/86 H Blood Pressure Mean 113 Pulse Ox 99 Oxygen Delivery Method Room Air Positive well nourished, well developed and no apparent distress General Appearance ED: well developed HEENT Reports normocephalic and head/scalp atraumatic Mouth ED: Yes moist mucous membranes normal Eyes PERRL and EOMs intact bilaterally Neck full ROM and supple Chest Wall inspection of chest normal Resp normal respiratory effort and clear to auscultation bilaterally Cardio regular rate and regular rhythm Back/Spine normal ROM and normal to inspection Back/Spine Narrative: Right lumbar paraspinal tenderness to palpation as well as midline lumbar spinal tenderness, no step-offs, no overlying ecchymosis or rash. Extremity normal to inspection and full ROM Neuro oriented x3, CN's II-XII intact bilaterally, moves all extremities, no focal motor deficits and no sensory deficits noted Sensorium / Orientation: awake and alert Motor Exam: strength 5/5 throughout Psych mental status grossly normal and thought process normal Skin no rashes or lesions noted and no wounds <Dr. Arturo Duran MD - Last Filed: 11/02/24 15:51> Physical Exam Const Vital Signs: 11/02/24 13:06 Temperature 96 F L Temperature Source Temporal Pulse Rate 96 Respiratory Rate 16 Blood Pressure 169/86 H Blood Pressure Mean 113 Pulse Ox 99 Oxygen Delivery Method Room Air MDM <CALEB Pérez - Last Filed: 11/02/24 15:45> [facility] Narrative Medical decision making narrative: Patient presenting today with low back pain after mechanical fall occurred a few days ago causing her to slip on the ice and fell directly on her back. She does have a history of chronic back pain and is in pain management for this. X-ray of the lumbar spine was obtained and is negative for fracture. She was given analgesia here and does report improvement of her symptoms. She does not have any symptoms of cauda equina syndrome, low suspicion for spinal abscess. Her examination is consistent with a low back contusion. Recommended that she follow-up with pain management. She can take Tylenol for her pain as needed. She will be discharged home in stable condition. Radiography X-Ray: Read by ED Physician Diagnostic Testing: Clinical Impression(s) from Imaging Studies Lumbar Spine X-Ray 11/02/24 13:16 IMPRESSION: No evidence of lumbar spinal fracture or spondylolisthesis. Electronically Signed: Farzad Jordan MD at 13:50 EST , <Dr. Arturo Duran MD - Last Filed: 11/02/24 15:51> [facility] Narrative Medical decision making narrative: Patient presenting today with low back pain after mechanical fall occurred a few days ago causing her to slip on the ice and fell directly on her back. She does have a history of chronic back pain and is in pain management for this. X-ray of the lumbar spine was obtained and is negative for fracture. She was given analgesia here and does report improvement of her symptoms. She does not have any symptoms of cauda equina syndrome, low suspicion for spinal abscess. Her examination is consistent with a low back contusion. Recommended that she follow-up with pain management. She can take Tylenol for her pain as needed. She will be discharged home in stable condition. I have personally performed a face to face assessment of the patient and have reviewed the CHARLEY Note. I performed a substantive portion of the visit including all aspects of the following. My christine findings include: History is remarkable for fall. She complains of low back pain. She has had a fusion. She denies bowel bladder dysfunction. She denies paresthesia or anesthesia in the perineal region. She denies foot drop. She does have pain in her buttocks. Does not have radicular pain. She is not on an antithrombotic. She denies loss of conscious. She not amnestic. She was not dazed. She denies neck pain. Exam is remarkable for midline low lumbar pain. Surgical scar noted. But patella and ankle reflex are 1-2+ and symmetric. EHLs intact. Normal sensation L3-S1 dermatome. There is no clonus Babinski sign noted. Motor 5 strength with plantar and dorsiflexion of her foot. There is no quadricep weakness appreciated. Medical Decision Making will obtain x-ray to rule out compression fracture versus contusion. 2 view x-ray of the LS spine was independent reviewed and interpreted by me as negative for any acute pathology. There is evidence of L4- 5 fusion. Hardware is in place. There is minimal degenerative changes noted. Patient has significant atherosclerotic disease noted. Other additions or changes: Treatment is open analgesia since she has end-stage renal disease. Radiography Diagnostic Testing: Clinical Impression(s) from Imaging Studies Lumbar Spine X-Ray 11/02/24 13:16 IMPRESSION: No evidence of lumbar spinal fracture or spondylolisthesis. Electronically Signed: Farzad Jordan MD at 13:50 EST , Discharge Plan Triage Chief Complaint: Back ED Midlevel Provider: Melva Sauceda ED Provider: Arturo Duran Dx/Rx/DC Orders Clinical Impression: Contusion of lower back Instructions: ED Back Contusion Prescriptions: No Action acetaminophen 325 mg capsule 325 mg PO Q4H PRN (Reason: pain) cyclobenzaprine 10 mg tablet 10 mg PO Q8H PRN (Reason: spasms) gabapentin 300 mg capsule 300 mg PO TID methocarbamol 750 mg tablet 750 mg PO Q8H PRN (Reason: pain) sennosides-docusate sodium [Senna with Docusate Sodium] 8.6-50 mg tablet 1 tab-cap PO BID lactulose 20 gram/30 mL solution 20 g PO BID Qty: 3000 3RF Nucala 100 mg/mL syringe 100 mg subcut Q4W budesonide-formoterol [Symbicort] 160-4.5 mcg/actuation HFA aerosol inhaler 2 inh inhalation DAILY Qty: 3 3RF hydroxyzine pamoate 100 mg capsule 100 mg PO QHS tizanidine 2 mg tablet 4 mg PO TID Eliquis 5 mg tablet 5 mg PO BID Qty: 60 11RF benzonatate 200 mg capsule 200 mg PO TID PRN (Reason: cough) Qty: 30 0RF losartan 25 mg tablet 25 mg PO QDAY Qty: 90 3RF aripiprazole 15 mg tablet 15 mg PO DAILY trazodone 100 mg tablet 100 mg PO QHS carboxymethylcellulose sodium 0.5 % drops 1 drp ophthalmic (eye) BID lidocaine 5 % adhesive patch,medicated 3 patch topical Q24H Rx Instructions: APPLY ONE PATCH TO PAINFUL AREA FOR UP TO 12 HOURS, THEN REMOVE FOR 12 HOURS ondansetron 4 mg tablet,disintegrating 4 mg PO Q6H PRN PRN (Reason: Nausea) Qty: 15 0RF nitroglycerin 0.4 mg tablet, sublingual 0.4 mg SUBLINGUAL PRN PRN (Reason: CHEST PAIN) Qty: 25 3RF furosemide 40 mg tablet 40 mg PO DAILY Qty: 30 11RF fluticasone propionate 50 mcg/actuation spray,suspension 1 spray intranasal Q12H Qty: 16 0RF Rx Instructions: USE 1 SPRAY IN EACH NOSTRIL TWICE A DAY FOR ALLERGIES carvedilol 3.125 mg tablet 3.125 mg PO BID Qty: 60 11RF polyethylene glycol 3350 17 gram/dose powder 17 g PO QDAY PRN (Reason: constipation) Qty: 850 1RF Spiriva Respimat 1.25 mcg/actuation mist 2 puff PO DAILY PRN (Reason: for asthma) Qty: 4 4RF levothyroxine 50 mcg tablet 50 mcg PO DAILY Qty: 90 1RF Rx Instructions: TAKE 1 TABLET BY MOUTH DAILY FOR THYROID prochlorperazine maleate 5 mg tablet 5 mg PO TID PRN (Reason: nausea and vomiting) 30 Days Qty: 90 4RF amitriptyline 25 mg tablet 25 mg PO QHS Qty: 30 4RF loratadine 10 mg tablet 10 mg PO QHS Qty: 90 0RF omeprazole 40 mg capsule,delayed release(DR/EC) 40 mg PO DAILY Qty: 90 0RF cyanocobalamin (vitamin B-12) 500 mcg tablet 500 mcg PO DAILY Qty: 90 0RF cholecalciferol (vitamin D3) 50 mcg (2,000 unit) capsule 50 mcg PO DAILY Qty: 90 0RF albuterol sulfate 90 mcg/actuation HFA aerosol inhaler 2 puff inhalation Q4H PRN (Reason: shortness of breath or wheezing) Qty: 8.5 6RF Rx Instructions: administer with spacer melatonin 10 mg tablet 10 mg PO QHS Qty: 30 0RF montelukast 10 mg tablet 10 mg PO QHS Qty: 30 0RF Primary Care Provider: Elizabeth Santamaria Referrals: Elizabeth Santamaria MD [Primary Care Provider] - 5-7 Days Activity Restrictions/Additional Instructions: Follow-up with pain management. Print Language: Nigerien Disposition Disposition: Home, Self Care Discharge Date/Time: 11/02/24 14:56
[2024-11-02] MEDS: Morphine 4 MG/ML Syringe IM (14:36)
[2024-11-02] MEDS: Ondansetron ODT 4 MG Tablet PO (14:37)
[2024-11-02] MEDS: Lidocaine 5% Patch 1 PATCH TOPICAL (14:38)
== END 2024-11-02 14:56 | disposition home or self-care (01) ==
PROVIDERS: Emergency Provider Emergency Medicine; PCP Internal Medicine; Visit Provider Emergency Medicine
DX: S30.0XXA Contusion of lower back and pelvis, initial encounter (principal); I13.2 Hypertensive heart and chronic kidney disease with heart failure and with stage 5 chronic kidney disease, or end stage renal disease; N18.6 End stage renal disease; I50.9 Heart failure, unspecified; F31.9 Bipolar disorder, unspecified; J44.9 Chronic obstructive pulmonary disease, unspecified; I48.0 Paroxysmal atrial fibrillation; W00.0XXA Fall on same level due to ice and snow, initial encounter; M54.50 Low back pain, unspecified; G89.29 Other chronic pain; E78.00 Pure hypercholesterolemia, unspecified; E03.9 Hypothyroidism, unspecified; G47.33 Obstructive sleep apnea (adult) (pediatric); Z79.01 Long term (current) use of anticoagulants; Z79.890 Hormone replacement therapy; Z79.899 Other long term (current) drug therapy; Z87.891 Personal history of nicotine dependence; Z86.73 Personal history of transient ischemic attack (TIA), and cerebral infarction without residual deficits
CPT/HCPCS: 72100; 96372; 99283

== ENCOUNTER 2024-11-07 11:17 | Inpatient (IN) | payer MEDICAID, SELFPAY ==
[2024-11-07] VITALS (10 sets, daily range): BP systolic 124–167; BP diastolic 61–88; PULSE 60–76; RESP 17–28; TEMP 36.3–36.9; O2SAT 93–94; BMI 47.3; BMI 44.9
--- NOTE | 2024-11-07 12:08 | EKG12_ITS ---
Test Reason : SOB Blood Pressure : */* mmHG Vent. Rate : 69 BPM Atrial Rate : 69 BPM P-R Int : 168 ms QRS Dur : 82 ms QT Int : 416 ms P-R-T Axes : 36 -22 19 degrees QTcB Int : 445 ms Normal sinus rhythm Anterior infarct , age undetermined Abnormal ECG Confirmed by MILO SPEARS, MELLISSA ([id number]), index editor FELI LAW ([id number]) on 11/11/2024 7:18:33 AM Referred By: Confirmed By: MELLISSA PEDRAZA MD
--- NOTE | 2024-11-07 12:14 | EX.ED.DYSGE1 ---
HPI <NICK Alamo - Last Filed: 11/07/24 14:08> History of Present Illness Chief Complaint: Shortness of Breath Narrative Narrative: Patient is a 59-year-old female with history of obesity, history of heart failure, intractable back pain, patient did quit smoking 1 year ago, presenting to the emergency department with 2 days of worsening cough, congestion. Patient states that she was seen here on Sunday for back pain. He states that she has not been very active, and then developed a cough with some shortness of breath and fever. Pay states that her family at home is also having similar symptoms. Pay states he is having trouble catching her breath and is here for evaluation. Chest pain with coughing. Pay states to have yellow sputum. PFS <NICK Alamo - Last Filed: 11/07/24 14:08> [facility] Medical History (Updated 11/07/24 @ 15:16 by Aditi Mack) On home oxygen therapy COPD (chronic obstructive pulmonary disease) Irregular heart beat Atrial fibrillation Myocardial infarct Altered mental status Stroke-like symptoms Chronic anticoagulation AF (paroxysmal atrial fibrillation) Acute right-sided weakness PONV (postoperative nausea and vomiting) Adult failure to thrive Contusion of hip Back contusion Difficulty in walking Impingement of left shoulder Enchondroma of left humerus History of Holter monitoring Loss of hearing Wears glasses Bipolar disorder History of steroid therapy History of renal disease Restless legs Sleep apnea Chronic cough History of skin cancer Disease of gingiva due to infection COVID-19 virus infection Degenerative tear of meniscus of left knee Osteoarthritis of left knee Cyclic vomiting syndrome Colitis Pain of left calf Kidney disease Sarcoidosis Morbid obesity Debility Myositis Stroke/cerebrovascular accident TIA (transient ischemic attack) History of atrial fibrillation Chest pain Diarrhea Bilateral flank pain Dysuria Oral candidiasis Abdominal pain Bilateral foot pain Venous insufficiency of both lower extremities History of abnormal cervical Pap smear Wears dentures Post-menopausal Cancer Marijuana use Open wound Thyroid disease Walker as ambulation aid Arthritis Bladder disease High cholesterol Easy bruising Excessive bleeding Back pain Injury of head and neck Blackout Syncope Seizures Dietary restriction Difficulty chewing History of hiatal hernia History of ulceration History of IBS Gastric reflux Smoker CPAP (continuous positive airway pressure) dependence Shortness of breath on exertion Leg cramps History of edema History of echocardiogram Hx of tilt table evaluation History of stress test Cardiology follow-up encounter History of CHF (congestive heart failure) Family history of colon cancer Allergic rhinitis Osteoarthritis of right hip Nonrheumatic aortic (valve) insufficiency Non-rheumatic mitral regurgitation Heart failure Intertriginous dermatitis associated with moisture Psychosis Orthostatic hypotension Osteoarthritis DAPHNE (obstructive sleep apnea) Schizo NEC, chrn/exacerb Peripheral artery disease Pulmonary embolism Stroke Hypothyroidism HTN (hypertension) PAF (paroxysmal atrial fibrillation) Hypokalemia Hyponatremia Arthralgia of right hip Hip dislocation, right Enlarged aorta CKD (chronic kidney disease) Bipolar 1 disorder Cyst Non-convulsive status epilepticus Migraines Asthma Aortic valve insufficiency Hypertensive crisis without congestive heart failure Left arm swelling Conversion disorder with abnormal movement Gastritis Convulsion, non-epileptic Schizophrenia COPD, mild Depression Home Medications ?Medication ?Instructions ?Recorded ?Last Taken ?Type nitroglycerin 0.4 mg sublingual 0.4 mg sublingual PRN PRN CHEST 07/09/23 Unknown Rx tablet PAIN #25 tabs acetaminophen 325 mg capsule 325 mg PO Q4H PRN pain 01/04/24 03/24/24 History gabapentin 300 mg capsule 300 mg PO TID nerve 01/04/24 11/07/24 History aripiprazole 15 mg tablet 15 mg PO DAILY bipolar 01/11/24 11/07/24 History trazodone 100 mg tablet 100 mg PO QHS sleep 01/11/24 11/06/24 History furosemide 40 mg tablet 40 mg PO DAILY #30 tabs 02/01/24 11/07/24 Rx carvedilol 3.125 mg tablet 3.125 mg PO BID #60 TABLETS 03/26/24 11/07/24 Rx budesonide-formoterol HFA 160 2 inh inhalation DAILY asthma #3 ea 03/31/24 11/07/24 Rx mcg-4.5 mcg/actuation aerosol inhaler (Symbicort) polyethylene glycol 3350 17 17 g PO QDAY PRN constipation #850 05/14/24 Unknown Rx gram/dose oral powder grams tiotropium bromide 1.25 2 puff PO DAILY PRN for asthma #4 05/19/24 11/07/24 Rx mcg/actuation mist for inhalation GMS (Spiriva Respimat) apixaban 5 mg tablet (Eliquis) 5 mg PO BID #60 tabs 05/21/24 11/07/24 Rx hydroxyzine pamoate 100 mg capsule 100 mg PO QHS 05/21/24 11/06/24 History mepolizumab 100 mg/mL subcutaneous 100 mg subcut Q4W 05/21/24 10/22/24 History syringe (Nucala) prochlorperazine maleate 5 mg 5 mg PO TID PRN nausea and 06/27/24 11/07/24 Rx tablet vomiting 30 days #90 tabs amitriptyline 25 mg tablet 25 mg PO QHS #30 tabs 07/31/24 11/06/24 Rx losartan 25 mg tablet 25 mg PO QDAY #90 tabs 08/27/24 11/07/24 Rx cholecalciferol (vitamin D3) 50 50 mcg PO DAILY vit #90 caps 09/09/24 11/07/24 Rx mcg (2,000 unit) capsule cyanocobalamin (vitamin B-12) 500 500 mcg PO DAILY vit #90 tabs 09/09/24 11/07/24 Rx mcg tablet albuterol sulfate 90 mcg/actuation 2 puff inhalation Q4H PRN 09/30/24 11/07/24 Rx aerosol inhaler shortness of breath or wheezing #8.5 grams levothyroxine 50 mcg tablet 50 mcg PO DAILY thyr #30 tabs 11/06/24 11/07/24 Rx loratadine 10 mg tablet 10 mg PO QHS for allergies #30 11/06/24 11/06/24 Rx TABLETS montelukast 10 mg tablet 10 mg PO QHS for allergies #30 11/06/24 11/06/24 Rx TABLETS omeprazole 40 mg capsule,delayed 40 mg PO DAILY #30 caps 11/06/24 11/07/24 Rx release baclofen 5 mg tablet 5 mg PO 3XD 11/07/24 11/07/24 History cyclosporine 0.05 % eye drops in a 1 drp ophthalmic (eye) Q12H 11/07/24 Unknown History dropperette (Restasis) lactulose 10 gram/15 mL oral 30 ml PO DAILY 11/07/24 Unknown History solution (Enulose) melatonin 5 mg tablet 10 mg PO QHS 11/07/24 11/06/24 History spironolactone 25 mg tablet 25 mg PO DAILY 11/07/24 11/07/24 History Allergy/AdvReac Type Severity Reaction Status Date / Time adhesive tape Allergy Rash Verified 11/02/24 13:06 atropine sulfate (From Allergy Hives Verified 11/02/24 13:06 ) codeine phosphate (From Allergy breathing Verified 11/02/24 13:06 Tylenol-Codeine #3) problems divalproex sodium (From Allergy Unknown Verified 11/02/24 13:06 Depakote) guaifenesin Allergy Itching Verified 11/02/24 13:06 hydrocodone Allergy Itching Verified 11/02/24 13:06 hydromorphone HCl (From Allergy facial Verified 11/02/24 13:06 Dilaudid) blisters,itching hyoscyamine sulfate (From Allergy Hives Verified 11/02/24 13:06 ) latex Allergy Rash Verified 11/02/24 13:06 pantoprazole sodium (From Allergy Rash Verified 11/02/24 13:06 Protonix) phenobarbital (From ) Allergy Hives Verified 11/02/24 13:06 promethazine HCl (From Allergy Anaphylaxis Verified 11/02/24 13:06 Phenergan) ramipril Allergy Unknown Verified 11/02/24 13:06 scopolamine hydrobromide Allergy Hives Verified 11/02/24 13:06 (From ) tramadol Allergy Itching Verified 11/02/24 13:06 ziprasidone mesylate (From Allergy Unknown Verified 11/02/24 13:06 Geodon) amlodipine AdvReac Vomiting Verified 11/02/24 13:06 levofloxacin (From Levaquin) AdvReac Itching Verified 11/02/24 13:06 metoclopramide (From Reglan) AdvReac Other Verified 11/02/24 13:06 Sulfa (Sulfonamide AdvReac Vomiting Verified 11/02/24 13:06 Antibiotics) ziprasidone HCl (From Geodon) AdvReac tremors Verified 11/02/24 13:06 Family History Sister Myocardial infarction Colon cancer Mother Hypertension Arthritis Brain aneurysm Heart disease High cholesterol Sister Colon cancer Heart disease High cholesterol Hypertension Arthritis Grandmother Arthritis Diabetes CVA (cerebral vascular accident) Father Heart disease High cholesterol Hypertension Surgical History History of back surgery (~12/2023) Previous back surgery Cataract extraction status History of esophagogastroduodenoscopy (EGD) Hx of colonoscopy History of laparoscopic cholecystectomy History of uterine suspension procedure S/P carpal tunnel release bladder sling left foot Social History household members: none number of children: 4 current occupational status: unemployed history of recent travel: No Smoking Status: Former smoker quit date: 11/12/23 Tobacco: How many years used: 26 Electronic Cigarette Use: not used quit status: considering quitting alcohol intake: never substance use type: does not use caffeine: Yes Type: coffee what type of physical activity do you participate in: none seatbelt use: never do you feel safe at home: Yes additional social history: single ROS <NICK Alamo - Last Filed: 11/07/24 14:08> ROS ED ROS Narrative Constitutional: Negative for fever, weight loss. Positive chills, weakness Eyes: Negative for vision loss, vision change, double vision ENT: Negative for any sore throat, ear pain, congestion Cardiovascular: Negative for any chest pain, tightness, palpitations Respiratory: Negative for any hemoptysis, dyspnea. Positive for cough, sputum production, dyspnea on exertion, orthopnea Gastrointestinal: Negative for any abdominal pain, nausea, vomiting, diarrhea, constipation, blood in stool, blood in vomit : Negative for any urinary frequency, dysuria, retention, blood in urine Muscle skeletal: Negative for any neck pain, back pain Neurological: Negative for any headache, syncope, dizziness Skin: Negative for any rashes, itching, abrasions, lacerations Psychiatric: Negative for any depression, anxiety, stress, suicidal ideation, homicidal ideation Hematologic: Negative for any excessive bruising, easy bleeding EXAM <NICK Alamo - Last Filed: 11/07/24 14:08> Physical Exam Narrative Exam Narrative: Vital signs reviewed. Patient is 92% to 95% on room air HEET: Head normocephalic atraumatic, TMs clear bilaterally. Posterior pharynx is clear, moist mucous membranes. Nares clear bilaterally. Neck: Supple with no lymphadenopathy or tenderness. No signs of meningismus. Cardiac: Regular rate and rhythm no murmurs gallops or rubs, equal peripheral pulses bilaterally. Respiratory: Expiratory wheezes. No chest tenderness. Abdomen: Soft, nontender, nondistended. No abdominal bruit or pulsatile masses. No hepatosplenomegaly Extremities: No peripheral edema, no signs of gross trauma or deformity. Active full range of motion of all extremities. Neuro: Cranial nerves II through XII intact, no focal neurological deficits. Skin: Clean dry and intact with no rash, purpura, petechiae, vesicles or pustules. Backs/flank: No CVA tenderness, no midline spinal tenderness, no deformity. Psych: Normal mood and affect. No SI, HI or acute psychosis. Const Vital Signs: 11/07/24 11:19 11/07/24 11:24 11/07/24 11:47 Temperature 98.2 F Temperature Source Oral Pulse Rate 76 Respiratory Rate 28 H Respiratory Pattern Tachypnea Blood Pressure 167/88 H Blood Pressure Mean 114 Pulse Ox 94 Oxygen Delivery Method Room Air Room Air 11/07/24 12:16 11/07/24 13:14 Temperature Temperature Source Pulse Rate 64 73 Respiratory Rate 17 19 H Respiratory Pattern Normal Blood Pressure 155/68 H Blood Pressure Mean 97 Pulse Ox 94 Oxygen Delivery Method Room Air Positive well nourished and well developed General Appearance ED: well developed <Dr. Tiffanie Jackson DO - Last Filed: 11/09/24 05:27> Physical Exam Const Vital Signs: 11/07/24 11:19 11/07/24 11:24 11/07/24 11:47 Temperature 98.2 F Temperature Source Oral Pulse Rate 76 Respiratory Rate 28 H Respiratory Pattern Tachypnea Blood Pressure 167/88 H Blood Pressure Mean 114 Pulse Ox 94 Oxygen Delivery Method Room Air Room Air 11/07/24 12:16 11/07/24 13:14 Temperature Temperature Source Pulse Rate 64 73 Respiratory Rate 17 19 H Respiratory Pattern Normal Blood Pressure 155/68 H Blood Pressure Mean 97 Pulse Ox 94 Oxygen Delivery Method Room Air DESIRE <NICK Alamo - Last Filed: 11/07/24 14:08> [facility] Lab Data Labs: Laboratory Results - last 24 hr 11/07/24 11:48 WBC 4.1 L RBC 5.15 Hgb 15.5 H Hct 44.7 MCV 86.8 MCH 30.1 MCHC 34.7 RDW Std Deviation 41.3 RDW Coeff of Yonathan 13.2 Plt Count 158 MPV 10.6 Immature Gran % (Auto) 0.200 Neut % (Auto) 73.7 H Lymph % (Auto) 18.1 L Bee % (Auto) 7.8 Eos % (Auto) 0.0 Baso % (Auto) 0.2 Absolute Neuts (auto) 3.0 Absolute Lymphs (auto) 0.74 L Nucleated RBC % 0 Sodium 134 L Potassium 3.5 Chloride 100 Carbon Dioxide 25.0 Anion Gap 9 BUN 13 Creatinine 1.10 H Estim Creat Clear Calc 68.65 Est GFR (MDRD) Af Amer 65 Est GFR (MDRD) Non-Af 54 L BUN/Creatinine Ratio 11.8 Glucose 94 Calcium 9.0 Radiography Diagnostic Testing: Clinical Impression(s) from Imaging Studies Chest X-Ray 11/07/24 12:55 IMPRESSION: Cardiomegaly. Infiltration and/or atelectasis at the left lung base with blunting of the left costophrenic angle. Electronically Signed: Patrick Keita MD at 13:39 EST , EKG Normal sinus rhythm: Attestation: I personally reviewed and interpreted this EKG as follows: Interpretation: Sinus Rhythm Comments: Normal sinus rhythm, rate of 69 bpm, IL interval 168 ms, QRS duration 82 ms, no acute ST elevation, no acute infarct noted. Treatment and Re-Evaluation :: Differential diagnosis includes however is not limited to: COVID-19, influenza, RSV, community-acquired pneumonia, fluid overload, ACS, COPD exacerbation Patient appears generally well, vital signs are stable, patient is nontoxic-appearing. Presenting to the emergency department with complaints of cough, congestion for the last 2 to 3 days. Patient does have some rhonchorous breath sounds, patient receive COVID-19 influenza RSV swab, two-view chest x-ray as well as breathing treatments, IV steroids. Patient was use of basic laboratory values. EKG was unremarkable. Patient will need to be reevaluated. All radiologic examinations were read, reviewed by the emergency department attending. From these reads, a plan of care will be put in place. Patient CBC shows a leukopenia with a white blood cell count of 4.1, this seems baseline. Hemoglobin 15.5, patient's chemistries show a normal creatinine at 1.10 this is baseline for the patient. Glucose was unremarkable. Patient's positive for influenza A this does coincide with the patient's physical examination. Breathing treatments did help slightly. Chest x-ray shows infiltration at the left lung base with blunting of the left costophrenic angle. Patient did ambulate, pulse oxygenation remained from 90 to 91%, patient was tachypneic, difficult time to recover. At this time, patient feels more comfortable to be admitted to the hospital. Will be reaching out to the hospitalist. They will accept. <Dr. Tiffanie Jackson, DO - Last Filed: 11/09/24 05:27> [facility] Lab Data Attestation: I reviewed the patient's lab results. Labs: Laboratory Results - last 24 hr 11/07/24 11:48 WBC 4.1 L RBC 5.15 Hgb 15.5 H Hct 44.7 MCV 86.8 MCH 30.1 MCHC 34.7 RDW Std Deviation 41.3 RDW Coeff of Yonathan 13.2 Plt Count 158 MPV 10.6 Immature Gran % (Auto) 0.200 Neut % (Auto) 73.7 H Lymph % (Auto) 18.1 L Bee % (Auto) 7.8 Eos % (Auto) 0.0 Baso % (Auto) 0.2 Absolute Neuts (auto) 3.0 Absolute Lymphs (auto) 0.74 L Nucleated RBC % 0 Sodium 134 L Potassium 3.5 Chloride 100 Carbon Dioxide 25.0 Anion Gap 9 BUN 13 Creatinine 1.10 H Estim Creat Clear Calc 68.65 Est GFR (MDRD) Af Amer 65 Est GFR (MDRD) Non-Af 54 L BUN/Creatinine Ratio 11.8 Glucose 94 Calcium 9.0 Radiography Chest X-Ray - ED: 2 View, Read by ED Physician, Read by Radiologist and No Infiltrates (Slight abnormality to the left heart border) Diagnostic Testing: Clinical Impression(s) from Imaging Studies Chest X-Ray 11/07/24 12:55 IMPRESSION: Cardiomegaly. Infiltration and/or atelectasis at the left lung base with blunting of the left costophrenic angle. Electronically Signed: Patrick Keita MD at 13:39 EST , Treatment and Re-Evaluation :: Differential diagnosis includes however is not limited to: COVID-19, influenza, RSV, community-acquired pneumonia, fluid overload, ACS, COPD exacerbation Patient appears generally well, vital signs are stable, patient is nontoxic-appearing. Presenting to the emergency department with complaints of cough, congestion for the last 2 to 3 days. Patient does have some rhonchorous breath sounds, patient receive COVID-19 influenza RSV swab, two-view chest x-ray as well as breathing treatments, IV steroids. Patient was use of basic laboratory values. EKG was unremarkable. Patient will need to be reevaluated. All radiologic examinations were read, reviewed by the emergency department attending. From these reads, a plan of care will be put in place. Patient CBC shows a leukopenia with a white blood cell count of 4.1, this seems baseline. Hemoglobin 15.5, patient's chemistries show a normal creatinine at 1.10 this is baseline for the patient. Glucose was unremarkable. Patient's positive for influenza A this does coincide with the patient's physical examination. Breathing treatments did help slightly. Chest x-ray shows infiltration at the left lung base with blunting of the left costophrenic angle. Patient did ambulate, pulse oxygenation remained from 90 to 91%, patient was tachypneic, difficult time to recover. At this time, patient feels more comfortable to be admitted to the hospital. Will be reaching out to the hospitalist. They will accept. I have personally performed a face to face assessment of the patient and have reviewed the CHARLEY Note. I performed a substantive portion of the visit including all aspects of the following. My christine findings include: History is Patient is 59-year-old female with history of heart failure, gastroparesis, asthma, tobacco use, obstructive sleep apnea, sarcoidosis, proximal atrial fibrillation (on Eliquis) and schizophrenia presenting for worsening shortness of breath for the past 2 days. She has been wheezing. No fever reported. Does report a only productive cough. Initial evaluation patient does have some increased work of breathing. She has very coarse and rhonchorous breath sounds with expiratory wheezing. I evaluated her after she attempted ambulation and while she did not desaturate she was quite symptomatic very tachypneic. Patient's oxygen saturation is in the low 90s and was placed on 2 L. She is found to be positive for influenza A which is likely the cause of her presentation. Discussed that she is borderline this was required admission and patient would prefer to be admitted. I think this is appropriate. Patient is given aerosols and steroids in the emergency room with minimal improvement. Case discussed with hospitalist will be admitted. Chest x-ray by radiology was read as possible infiltrate versus atelectasis. Chest x-ray viewed by myself and with admitting physician. Patient has influenza with leukopenia and will defer antibiotics and treat as viral at this time. They will continue to monitor chest x-rays. She is anticoagulated so low suspicion for PE as a cause of her hypoxia/respiratory symptoms. Other additions or changes: [None] Discharge Plan Dx/Rx/DC Orders Clinical Impression: Influenza A, Acute dyspnea Disposition Disposition: Acute Care Hospital [facility] Discharge Date/Time: 11/07/24 14:59
[2024-11-07] MEDS: Ipratropium/Albuterol Sulfate 3 ML AMPUL.NEB INHALATION (12:16)
[2024-11-07] MEDS: MethylPREDNISolone 125 MG/2 ML Vial IV (12:16)
[2024-11-07] MEDS: Albuterol 2.5 MG/3 ML VIAL.NEB. 5 MG INHALATION (12:16)
[2024-11-07 12:43] LABS: Absolute Lymphocyte Count 0.74 X10^3/uL (0.83-4.51); Basophil# 0.01 X10^3/uL; Basophil% 0.2 % (0-1); Hematocrit 44.7 % (37-47); Hemoglobin 15.5 g/dL (12.0-15.0); Lymphocyte # 0.74 X10^3/ul (0.83-4.51); Lymphocyte % 18.1 % (19-41); Mean Corp Hgb Conc 34.7 g/dL (32-36); Mean Corpuscular Hgb 30.1 pg (27.0-32.0); Mean Corpuscular Volume 86.8 fL (81-99); Mean Platelet Vol. 10.6 fl (6.2-12.0); Monocyte# 0.32 X10^3/uL; Monocyte% 7.8 % (0-10); NRBC Flagged by Analyzer 0 % (0-5); Neutrophil # 3.01 X10^3/uL (2.7-7.7); Neutrophil % 73.7 % (47-70); Platelet Count 158 K/mm3 (150-450); RBC Distribution Width CV 13.2 % (11.6-14.6); RBC Distribution Width SD 41.3 fl (35.1-43.9); Red Blood Count 5.15 M/mm3 (4.2-5.4); White Blood Count 4.1 K/mm3 (4.4-11.0)
--- NOTE | 2024-11-07 12:55 | RAD_ITS ---
STUDY: X-RAY CHEST REASON FOR EXAM: Female, 59 years old. Chest congestion and cough. TECHNIQUE: AP and lateral views of the chest. COMPARISON: Comparison is made with prior study dated June 12, 2024. FINDINGS: EKG electrodes are seen. Atelectasis and/or infiltrate at the left lung base with blunting of left costophrenic angle. There is moderate cardiac enlargement. Normal mediastinum and rosita. Normal visualized pulmonary arteries. There is atherosclerotic tortuosity of the aortic arch and descending thoracic aorta. Normal visualized thoracic spine. Normal visualized ribs, clavicles, and shoulders. There is no demonstrated abnormality of the visualized soft tissue structures of the upper abdomen. RAD/Chest PA and Lateral IMPRESSION: Cardiomegaly. Infiltration and/or atelectasis at the left lung base with blunting of the left costophrenic angle. Electronically Signed: Patrick Keita MD at 13:39 EST ,
[2024-11-07 13:10] LABS: Anion Gap 9 (5-15); BUN 13 mg/dL (7-18); BUN/Creat Ratio 11.8 RATIO (10-20); Chloride 100 mmol/L (98-107); EST Glomerular Filtration Rate 54 mL/min (>60); Est Glom Filt Rate - Afr Amer 65 mL/min (>60); Estimated Creatinine Clearance 68.65 ml/min; Glucose 94 mg/dL (74-106); Potassium 3.5 mmol/L (3.5-5.1); Sodium Level 134 mmol/L (136-145)
--- NOTE | 2024-11-07 14:20 | HP.PCM.HOS_ITS ---
HPI - General General Date of Admission: 11/07/24 Date of Service: 11/07/24 Chief Complaint: Inc SOB HPI Narrative NIGHAT TIMMONS, is a 59 F with history of paroxysmal atrial fibrillation, GERD, hypothyroidism, asthma who presented to [facility] ED 11/07/2024 with several days of increased worsening cough and congestion. In the ED patient not overtly hypoxic but was tachypneic and tachycardic with significant increased work of breathing and overall failure to thrive. She was given steroids and breathing treatments with some improvement but given her continued tachypnea and difficulty breathing hospitalist contacted for admission. Patient evaluated at bedside and reports feeling somewhat generally unwell, has not been eating or drinking well for the past week and has been very fatigued and tired and she has had worsening shortness of breath over this time with cough that is not productive and some chills at home. Also had a couple episodes of diarrhea. Intermittently with some headaches, no abdominal pain, no vomiting. Did report she did notice a red rash under pannus today and she is not sure how long it has been there. No other new or acute complaints REPLACED BY [facility] Medical History Altered mental status Stroke-like symptoms Chronic anticoagulation AF (paroxysmal atrial fibrillation) Acute right-sided weakness Dysuria PONV (postoperative nausea and vomiting) Adult failure to thrive Contusion of hip Back contusion Difficulty in walking Impingement of left shoulder Enchondroma of left humerus History of Holter monitoring Loss of hearing Wears glasses Bipolar disorder History of steroid therapy History of renal disease Restless legs Sleep apnea Chronic cough History of skin cancer Disease of gingiva due to infection COVID-19 virus infection Degenerative tear of meniscus of left knee Osteoarthritis of left knee Cyclic vomiting syndrome Colitis Pain of left calf Kidney disease Sarcoidosis Morbid obesity Debility Myositis Stroke/cerebrovascular accident TIA (transient ischemic attack) History of atrial fibrillation Chest pain Diarrhea Bilateral flank pain Oral candidiasis Abdominal pain Bilateral foot pain Venous insufficiency of both lower extremities History of abnormal cervical Pap smear Wears dentures Post-menopausal Cancer Marijuana use Open wound Thyroid disease Walker as ambulation aid Arthritis Bladder disease High cholesterol Easy bruising Excessive bleeding Back pain Injury of head and neck Blackout Syncope Seizures Dietary restriction Difficulty chewing History of hiatal hernia History of ulceration History of IBS Gastric reflux Smoker CPAP (continuous positive airway pressure) dependence Shortness of breath on exertion Leg cramps History of edema History of echocardiogram Hx of tilt table evaluation History of stress test Cardiology follow-up encounter History of CHF (congestive heart failure) Family history of colon cancer Allergic rhinitis Osteoarthritis of right hip Nonrheumatic aortic (valve) insufficiency Non-rheumatic mitral regurgitation Heart failure Intertriginous dermatitis associated with moisture Psychosis Orthostatic hypotension Osteoarthritis DAPHNE (obstructive sleep apnea) Schizo NEC, chrn/exacerb Peripheral artery disease Pulmonary embolism Stroke Hypothyroidism HTN (hypertension) PAF (paroxysmal atrial fibrillation) Hypokalemia Hyponatremia Arthralgia of right hip Hip dislocation, right Enlarged aorta CKD (chronic kidney disease) Bipolar 1 disorder Cyst Non-convulsive status epilepticus Migraines Asthma Aortic valve insufficiency Hypertensive crisis without congestive heart failure Left arm swelling Conversion disorder with abnormal movement Gastritis Convulsion, non-epileptic Schizophrenia COPD, mild Depression Home Medications ?Medication ?Instructions ?Recorded ?Last Taken ?Type nitroglycerin 0.4 mg sublingual 0.4 mg sublingual PRN PRN CHEST 07/09/23 Unknown Rx tablet PAIN #25 tabs acetaminophen 325 mg capsule 325 mg PO Q4H PRN pain 01/04/24 03/24/24 History gabapentin 300 mg capsule 300 mg PO TID nerve 01/04/24 11/07/24 History aripiprazole 15 mg tablet 15 mg PO DAILY bipolar 01/11/24 11/07/24 History trazodone 100 mg tablet 100 mg PO QHS sleep 01/11/24 11/06/24 History furosemide 40 mg tablet 40 mg PO DAILY #30 tabs 02/01/24 11/07/24 Rx carvedilol 3.125 mg tablet 3.125 mg PO BID #60 TABLETS 03/26/24 11/07/24 Rx budesonide-formoterol HFA 160 2 inh inhalation DAILY asthma #3 ea 03/31/24 11/07/24 Rx mcg-4.5 mcg/actuation aerosol inhaler (Symbicort) polyethylene glycol 3350 17 17 g PO QDAY PRN constipation #850 05/14/24 Unknown Rx gram/dose oral powder grams tiotropium bromide 1.25 2 puff PO DAILY PRN for asthma #4 05/19/24 11/07/24 Rx mcg/actuation mist for inhalation GMS (Spiriva Respimat) apixaban 5 mg tablet (Eliquis) 5 mg PO BID #60 tabs 05/21/24 11/07/24 Rx hydroxyzine pamoate 100 mg capsule 100 mg PO QHS 05/21/24 11/06/24 History mepolizumab 100 mg/mL subcutaneous 100 mg subcut Q4W 05/21/24 10/22/24 History syringe (Nucala) prochlorperazine maleate 5 mg 5 mg PO TID PRN nausea and 06/27/24 11/07/24 Rx tablet vomiting 30 days #90 tabs amitriptyline 25 mg tablet 25 mg PO QHS #30 tabs 07/31/24 11/06/24 Rx losartan 25 mg tablet 25 mg PO QDAY #90 tabs 08/27/24 11/07/24 Rx cholecalciferol (vitamin D3) 50 50 mcg PO DAILY vit #90 caps 09/09/24 11/07/24 Rx mcg (2,000 unit) capsule cyanocobalamin (vitamin B-12) 500 500 mcg PO DAILY vit #90 tabs 09/09/24 11/07/24 Rx mcg tablet albuterol sulfate 90 mcg/actuation 2 puff inhalation Q4H PRN 09/30/24 11/07/24 Rx aerosol inhaler shortness of breath or wheezing #8.5 grams levothyroxine 50 mcg tablet 50 mcg PO DAILY thyr #30 tabs 11/06/24 11/07/24 Rx loratadine 10 mg tablet 10 mg PO QHS for allergies #30 11/06/24 11/06/24 Rx TABLETS montelukast 10 mg tablet 10 mg PO QHS for allergies #30 11/06/24 11/06/24 Rx TABLETS omeprazole 40 mg capsule,delayed 40 mg PO DAILY #30 caps 11/06/24 11/07/24 Rx release baclofen 5 mg tablet 5 mg PO 3XD 11/07/24 11/07/24 History cyclosporine 0.05 % eye drops in a 1 drp ophthalmic (eye) Q12H 11/07/24 Unknown History dropperette (Restasis) lactulose 10 gram/15 mL oral 30 ml PO DAILY 11/07/24 Unknown History solution (Enulose) melatonin 5 mg tablet 10 mg PO QHS 11/07/24 11/06/24 History spironolactone 25 mg tablet 25 mg PO DAILY 11/07/24 11/07/24 History Allergy/AdvReac Type Severity Reaction Status Date / Time adhesive tape Allergy Rash Verified 11/02/24 13:06 atropine sulfate (From Allergy Hives Verified 11/02/24 13:06 ) codeine phosphate (From Allergy breathing Verified 11/02/24 13:06 Tylenol-Codeine #3) problems divalproex sodium (From Allergy Unknown Verified 11/02/24 13:06 Depakote) guaifenesin Allergy Itching Verified 11/02/24 13:06 hydrocodone Allergy Itching Verified 11/02/24 13:06 hydromorphone HCl (From Allergy facial Verified 11/02/24 13:06 Dilaudid) blisters,itching hyoscyamine sulfate (From Allergy Hives Verified 11/02/24 13:06 ) latex Allergy Rash Verified 11/02/24 13:06 pantoprazole sodium (From Allergy Rash Verified 11/02/24 13:06 Protonix) phenobarbital (From ) Allergy Hives Verified 11/02/24 13:06 promethazine HCl (From Allergy Anaphylaxis Verified 11/02/24 13:06 Phenergan) ramipril Allergy Unknown Verified 11/02/24 13:06 scopolamine hydrobromide Allergy Hives Verified 11/02/24 13:06 (From ) tramadol Allergy Itching Verified 11/02/24 13:06 ziprasidone mesylate (From Allergy Unknown Verified 11/02/24 13:06 Geodon) amlodipine AdvReac Vomiting Verified 11/02/24 13:06 levofloxacin (From Levaquin) AdvReac Itching Verified 11/02/24 13:06 metoclopramide (From Reglan) AdvReac Other Verified 11/02/24 13:06 Sulfa (Sulfonamide AdvReac Vomiting Verified 11/02/24 13:06 Antibiotics) ziprasidone HCl (From Geodon) AdvReac tremors Verified 11/02/24 13:06 Family History Sister Myocardial infarction Colon cancer Mother Hypertension Arthritis Brain aneurysm Heart disease High cholesterol Sister Colon cancer Heart disease High cholesterol Hypertension Arthritis Grandmother Arthritis Diabetes CVA (cerebral vascular accident) Father Heart disease High cholesterol Hypertension Surgical History History of back surgery (~12/2023) Previous back surgery Cataract extraction status History of esophagogastroduodenoscopy (EGD) Hx of colonoscopy History of laparoscopic cholecystectomy History of uterine suspension procedure S/P carpal tunnel release bladder sling left foot Social History household members: none number of children: 4 current occupational status: unemployed history of recent travel: No Smoking Status: Former smoker quit date: 11/12/23 Tobacco: How many years used: 26 Electronic Cigarette Use: not used quit status: considering quitting alcohol intake: never substance use type: does not use caffeine: Yes Type: coffee what type of physical activity do you participate in: none seatbelt use: never do you feel safe at home: Yes additional social history: single ROS ROS Narrative General: Some chills HENT: Intermittent headaches and congestion EYES: Denies changes in vision Resp: Nonproductive cough, increased shortness of breath Cardiac: Little bit of chest pain when coughing but none outside of that GI: Denies abdominal pain, had a couple episodes of loose stool, denies nausea/vomiting : Denies changes in urination Extremity: Denies swelling MSK: Generalized weakness Neuro: Denies any numbness/tingling Heme: Denies any bleeding or bruising Skin: Has red rash under pannus Psychiatric: No complaints voiced Vital Signs Vital Signs Vital Signs: 11/07/24 11:19 11/07/24 11:24 11/07/24 11:47 Temperature 98.2 F Temperature Source Oral Pulse Rate 76 Respiratory Rate 28 H Respiratory Pattern Tachypnea Blood Pressure 167/88 H Blood Pressure Mean 114 Pulse Ox 94 Oxygen Delivery Method Room Air Room Air 11/07/24 12:16 11/07/24 13:14 11/07/24 14:05 Temperature 98.4 F Temperature Source Pulse Rate 64 73 74 Respiratory Rate 17 19 H 26 H Respiratory Pattern Normal Blood Pressure 155/68 H 164/78 H Blood Pressure Mean 97 106 Pulse Ox 94 94 Oxygen Delivery Method Room Air Weight Weight: 121.3 kg Body Mass Index (BMI) 47.3 Physical Exam Narrative General: Alert, oriented, appears tired HEENT: Atraumatic, normocephalic Eyes: Anicteric, normal conjunctiva, extraocular movements grossly intact Neck: Supple Respiratory: Diffusely wheezy and coarse with increased respiratory effort Cardiovascular: Regular rate and rhythm GI: Soft, nontender, nondistended Extremities: No edema Musculoskeletal: Moving all extremities Neuro: No overt focal neurological deficits Skin: Patient with red rash increase of pannus Psych: Cooperative Results Lab / Micro Data 11/07/24 11:48 11/07/24 11:48 Labs: Laboratory Results - last 24 hr 11/07/24 11:48: WBC 4.1 L, RBC 5.15, Hgb 15.5 H, Hct 44.7, MCV 86.8, MCH 30.1, MCHC 34.7, RDW Std Deviation 41.3, RDW Coeff of Yonathan 13.2, Plt Count 158, MPV 10.6, Immature Gran % (Auto) 0.200, Neut % (Auto) 73.7 H, Lymph % (Auto) 18.1 L, [place] % (Auto) 7.8, Eos % (Auto) 0.0, Baso % (Auto) 0.2, Absolute Neuts (auto) 3.0, Absolute Lymphs (auto) 0.74 L, Nucleated RBC % 0, Sodium 134 L, Potassium 3.5, Chloride 100, Carbon Dioxide 25.0, Anion Gap 9, BUN 13, Creatinine 1.10 H, Estim Creat Clear Calc 68.65, Est GFR (MDRD) Af Amer 65, Est GFR (MDRD) Non-Af 54 L, BUN/Creatinine Ratio 11.8, Glucose 94, Calcium 9.0 Micro: Microbiology 11/07/24 12:14 Mucosa - Nose SARS-CoV-2, Influenza & RSV (PCR) - Final Influenzae A Imaging Radiology Impression Chest X-Ray 11/07/24 12:55 IMPRESSION: Cardiomegaly. Infiltration and/or atelectasis at the left lung base with blunting of the left costophrenic angle. Electronically Signed: Patrick Keita MD at 13:39 EST , Assessment & Plan Assessment/Plan (1) Acute dyspnea: (2) Influenza A: PLAN: Plan #Acute exacerbation of asthma secondary to influenza A -Admit to floor, continuous O2 monitoring -Chest x-ray: Reviewed chest x-ray independently and agree with radiology interpretation. Infiltrate or atelectasis at left lung base, patient more diffusely coarse and wheezy but given somewhat atypical nature of the appearance of that infiltrate will repeat x-ray in the a.m. Patient influenza A positive -O2 in place, wean as tolerated -IV methylprednisone -Scheduled DuoNebs -Albuterol prn -Will begin Tamiflu -Incentive spirometer -Mucinex not prescribed d/t reported rash w/ guaifenesin -Patient has had some poor p.o. intake so we will hold home Lasix and spironolactone for now, will need to resume when able -Will monitor daily weights and I's and O's given the above #Paroxysmal Atrial Fibrillation -EKG: Normal sinus rhythm at 69 bpm -On Eliquis and carvedilol # History of bipolar disorder -Continue home Abilify, trazodone, amitriptyline, and hydroxyzine #GERD -Patient with allergy to pantoprazole and home omeprazole not on formulary so we will hold at this time #Hypothyroidism -Continue Synthroid #Hypertension -Continue carvedilol and losartan #Rash under abdominal pannus -Added topical nystatin #Morbid obesity -BMI documented as 47.4 kg/m? at time of admission -Complicates treatment, prognosis, outcomes -Recommend weight loss and lifestyle changes #DVT ppx: Continuing home Eliquis Martha Lynch MD Charges/Coding Visit Charges Inpatient E&M: 04922 Init Hosp L2
[2024-11-07] MEDS: Ensure Plus High Protein 120 ML LIQUID PO (17:33)
[2024-11-07] MEDS: Carvedilol 3.125 MG TABLET PO (17:33)
[2024-11-07] MEDS: Ondansetron 4 MG/2 ML Vial IV (20:15)
[2024-11-07] MEDS: Nystatin Powder 15gm Bottle 1 APPLIC TOPICAL (20:16)
[2024-11-07] MEDS: 0.9% Saline Lock 10 ML Syringe IV (20:18)
[2024-11-07] MEDS: traZODone 100 MG Tablet PO (21:30)
[2024-11-07] MEDS: Amitriptyline 25 MG Tablet PO (21:30)
[2024-11-07] MEDS: MELATONIN 10 MG TABLET PO (21:30)
[2024-11-07] MEDS: Oseltamivir Phosphate 75 MG Capsule PO (21:30)
[2024-11-07] MEDS: Gabapentin 300 MG Capsule PO (21:30)
[2024-11-07] MEDS: hydrOXYzine PAM 25 MG Capsule 100 MG PO (21:30)
[2024-11-07] MEDS: Loratadine 10 MG Tablet PO (21:30)
[2024-11-07] MEDS: Baclofen 10 MG Tablet 5 MG PO (21:30)
[2024-11-07] MEDS: APIXABAN 5 MG TABLET PO (21:31)
[2024-11-07] MEDS: Montelukast 10 MG Tablet PO (21:31)
[2024-11-08] VITALS (14 sets, daily range): BP systolic 121–143; BP diastolic 47–64; PULSE 51–77; RESP 18–20; TEMP 36.5–36.8; O2SAT 88–98
--- NOTE | 2024-11-08 01:16 | CPS ---
Sleep lab CPAP machine is set up at patient's bedside. She is not going to attempt to wear it tonight as she has been nauseous and is afraid she will vomit in the mask.
[2024-11-08] MEDS: Levothyroxine 50 MCG Tablet PO (05:16)
[2024-11-08] MEDS: Gabapentin 300 MG Capsule PO ×3 (05:16→21:12)
[2024-11-08] MEDS: Baclofen 10 MG Tablet 5 MG PO ×3 (05:16→21:13)
[2024-11-08] MEDS: 0.9% Saline Lock 10 ML Syringe IV (05:19)
--- NOTE | 2024-11-08 05:35 | RAD_ITS ---
INDICATION: left base infiltrate EXAMINATION/TECHNIQUE: X-RAY - XR Chest 1 View COMPARISON: Prior study dated: 11/07/2024 FINDINGS: LINES/DEVICES: None. LUNGS: Reticular opacities at the left lung base not significantly changed. Small left pleural effusion and/or pleural thickening unchanged. No consolidation. No pneumothorax. MEDIASTINUM: Unremarkable. CARDIAC SILHOUETTE: Not enlarged. BONES AND SOFT TISSUES: No acute abnormalities.
[2024-11-08 06:44] LABS: Absolute Lymphocyte Count 0.43 X10^3/uL (0.83-4.51); Absolute Neutrophil Count 2.4 X10^3/uL (2.0-7.7); Hematocrit 43.2 % (37-47); Lymphocyte # 0.43 X10^3/ul (0.83-4.51); Lymphocyte % 14.6 % (19-41); Mean Corp Hgb Conc 34.7 g/dL (32-36); Mean Corpuscular Hgb 29.6 pg (27.0-32.0); Mean Corpuscular Volume 85.4 fL (81-99); Mean Platelet Vol. 10.9 fl (6.2-12.0); Monocyte# 0.14 X10^3/uL; Monocyte% 4.7 % (0-10); NRBC Flagged by Analyzer 0 % (0-5); Neutrophil # 2.37 X10^3/uL (2.7-7.7); Neutrophil % 80.4 % (47-70); POSITIVE DIFFERENTIAL YES; Platelet Count 147 K/mm3 (150-450); RBC Distribution Width CV 12.8 % (11.6-14.6); RBC Distribution Width SD 39.7 fl (35.1-43.9); Red Blood Count 5.06 M/mm3 (4.2-5.4)
[2024-11-08 07:14] LABS: ALB/GLOB Ratio 0.9 RATIO (0.9-2.4); AST(SGOT) 17 U/L (15-37); Alanine Aminotransfer ALT/SGPT 30 U/L (13-56); Albumin, Serum 3.1 g/dL (3.2-5.0); Alkaline Phosphatase 87 U/L (45-117); Anion Gap 10 (5-15); BUN 17 mg/dL (7-18); BUN/Creat Ratio 17.3 RATIO (10-20); Calcium,Total 9.1 mg/dL (8.5-10.1); Chloride 100 mmol/L (98-107); Creatinine, Serum 0.98 mg/dL (0.55-1.02); EST Glomerular Filtration Rate 61 mL/min (>60); Est Glom Filt Rate - Afr Amer 74 mL/min (>60); Estimated Creatinine Clearance 74.71 ml/min; Globulin 3.4 g/dL (2.2-4.2); Glucose 152 mg/dL (74-106); Protein, Total 6.5 g/dL (6.4-8.2); Sodium Level 132 mmol/L (136-145); Thyroid Stim Hormone (TSH) 0.374 uIU/mL (0.358-3.740)
[2024-11-08] MEDS: Ipratropium/Albuterol Sulfate 3 ML AMPUL.NEB INHALATION ×5 (07:35→22:45)
[2024-11-08] MEDS: APIXABAN 5 MG TABLET PO ×2 (07:47→21:13)
[2024-11-08] MEDS: Carvedilol 3.125 MG TABLET PO ×2 (07:47→16:39)
[2024-11-08] MEDS: Ensure Plus High Protein 120 ML LIQUID PO ×3 (07:47→16:39)
[2024-11-08] MEDS: Losartan Potassium 25 MG Tablet PO (07:47)
[2024-11-08] MEDS: Oseltamivir Phosphate 75 MG Capsule PO ×2 (07:47→21:13)
[2024-11-08] MEDS: ARIPiprazole 5 MG Tablet 15 MG PO (07:48)
[2024-11-08] MEDS: Nystatin Powder 15gm Bottle 1 APPLIC TOPICAL ×2 (07:49→21:14)
--- NOTE | 2024-11-08 13:35 | PN_ITS ---
Subjective Subjective Patient seen and examined. She had no active complaints. She felt tired but said she felt better than when she came in. She denied any cough, chest pain, palpitations, dizziness, nausea, vomiting or any other symptoms. Review of systems was otherwise negative. She is on room air. Objective Data Objective Data Vital Signs: Vital Signs Temp Pulse Resp BP Pulse Ox O2 Del Method O2 Flow Rate 97.7 F L 65 20 H 135/64 H 88 Room Air 2 11/08/24 11:59 11/08/24 11:59 11/08/24 11:59 11/08/24 11:59 11/08/24 12:02 11/08/24 12:02 11/08/24 11:59 Oxygen Flow Rate (L/min) 2 Oxygen Delivery Method Room Air Weight: 254 lb Body Mass Index (BMI) 44.9 Intake & Output: Intake and Output for Last 24 Hours 11/06/24 11/07/24 11/08/24 23:59 23:59 23:59 Intake Total 240 / 240 350 / 350 Balance 240 / 240 350 / 350 Lab / Micro Data 11/08/24 05:59 11/08/24 05:59 Labs: Laboratory Results - last 24 hr 11/08/24 05:59: WBC 3.0 L, RBC 5.06, Hgb 15.0, Hct 43.2, MCV 85.4, MCH 29.6, MCHC 34.7, RDW Std Deviation 39.7, RDW Coeff of Yonathan 12.8, Plt Count 147 L, MPV 10.9, Immature Gran % (Auto) 0.300, Neut % (Auto) 80.4 H, Lymph % (Auto) 14.6 L, [place] % (Auto) 4.7, Eos % (Auto) 0.0, Baso % (Auto) 0.0, Absolute Neuts (auto) 2.4, Absolute Lymphs (auto) 0.43 L, Nucleated RBC % 0, Sodium 132 L, Potassium 4.0, Chloride 100, Carbon Dioxide 23.0, Anion Gap 10, BUN 17, Creatinine 0.98, Estim Creat Clear Calc 74.71, Est GFR (MDRD) Af Amer 74, Est GFR (MDRD) Non-Af 61, BUN/Creatinine Ratio 17.3, Glucose 152 H, Calcium 9.1, Total Bilirubin 0.30, AST 17, ALT 30, Alkaline Phosphatase 87, Total Protein 6.5, Albumin 3.1 L, Globulin 3.4, Albumin/Globulin Ratio 0.9, TSH 0.374 Micro: Microbiology 11/07/24 12:14 Mucosa - Nose SARS-CoV-2, Influenza & RSV (PCR) - Final Influenzae A Radiography Diagnostic Testing: Radiology Impression Chest X-Ray 11/07/24 12:55 IMPRESSION: Cardiomegaly. Infiltration and/or atelectasis at the left lung base with blunting of the left costophrenic angle. Electronically Signed: Patrick Keita MD at 13:39 EST , Chest X-Ray 11/08/24 05:35 IMPRESSION: Left basilar atelectasis/infiltrate and small left pleural effusion unchanged. Electronically Signed: Brianna Alvarado MD at 7:11 EST , Physical Exam Const alert, oriented x3, no apparent distress and well nourished Constitutional Narrative: obese General Appearance: cooperative HEENT normocephalic, head/scalp atraumatic and moist oral mucous membranes Eyes PERRL and EOMs intact bilaterally Lymph Lymphatic: no lymphadenopathy noted Resp Resp Narrative: mildly diminished breath sounds bilaterally, mild wheezing, no crackles. Cardio regular rate, regular rhythm, S1 normal heart sound, S2 normal heart sound and no murmurs GI normal to inspection, nondistended, normoactive bowel sounds, soft to palpation and non-tender Extremity normal capillary refill, no clubbing, cyanosis or edema and no calf tenderness General Extremity: no tenderness to palpation of joints or extremities Skin General Skin Exam: no breakdown Neuro CN's II-XII intact bilaterally, no focal motor deficits and no sensory deficits noted Motor Exam: strength 5/5 throughout and general weakness Psych thought process normal and cooperative Appearance: appropriate Assessment & Plan Assessment/Plan (1) Influenza A: (2) Acute dyspnea: PLAN: Plan # Acute exacerbation of asthma and COPD as well as influenza A infection * Currently on room air. * Chest x-ray showed infiltrate or atelectasis at the left lung base. Patient still has bilateral coarse crackles. * On IV Solu-Medrol due to the wheezing. On Tamiflu * Breathing treatments with bronchodilators. Titrate oxygen to maintain saturation above 90%. #paroxysmal afib: on carvedilol and eliquis #GERD: on PPI #Bipolar disorder: on abilify, trazodone and amitryptiline. #Hypothyroidism: On Synthroid #Hypertension: On carvedilol and losartan #Morbid obesity: BMI is 45. Complicates acute care, expected recovery and prognosis. DVT prophylaxis: on eliquis Charges/Coding Visit Charges Inpatient E&M: 68461 Subs Hosp L2
--- NOTE | 2024-11-08 13:42 | CASEMGMT ---
Social Work SW left a message for Jammie Pichardo José at [facility] to let her know pt is here in the hospital. CORA Blunt
--- NOTE | 2024-11-08 13:44 | CASEMGMT ---
CHITRA ALLISON assessment: RN CM to room to meet with patient for initial transition planning/care coordination assessment.? introduced self and role at [facility]. Patient lying in bed, alert and oriented. Patient willing to participate in assessment and is able to answer all questions appropriately.? Care providers, pharmacy, and demographics verified. PCP: Dr Tuyet Ontiveros Specialists: Pulmonology/Dr. Kelsey Porter, Cardiology/Dr. Fernando, Ophthalmology/Dr. Kilgore, Pain Mgnt/Kimi Castellanoselyn/WATERPROOFER HELPER @ [facility], Orthopedic surgeon @ [facility] (has a f/u appt 11/20). Preferred Pharmacy: Pt uses [facility], but would like to get any new Rx's from [facility] retail @ discharge. Insurance: Medicaid Prescription Benefit:? Yes LNOK: Pt has 4 adult children: a daughter Scott, and 3 sons. Parents are living. Does have siblings. Pt is . Friend/roommate, Va Living Arrangements: Lives w/friend, Va, and Va's 13-yr-old GS in one-story home w/one step to enter. Pt states she is able to dress herself. She goes to [employer] every Sunday to shower. Va does grocery shopping, meals, and other home mgnt tasks. Direction Home: Pt has a CM through [employer]. She does not have aides, stating Va does like anyone in the home. Transportation: Pt uses [facility] van or [employer]. Mom or dad may be able to take her home @ discharge. CHITRA ALLISON inquired if she uses transportation through her insurance. She states she does not know how. CHITRA ALLISON advised her to talk to her CMJammie for assistance with this, if needed. DME: Pt has a rollator (uses as needed), walker, shower chair, cane (uses all the time) wheelchair, nebilizer, pulse ox, and hospital bed. Pt states she wears oxygen 2LNC HS, bleed-in via PAP through [facility]. She states she has one back-up portable O2 tank, but does not have other portability. She also states her tubing @ home is not long enough to walk around her home, as she only wears it @ HS. SNF/HHC: Pt has been to [facility] in the past. She has had [facility] and [facility]. Discussed discharge planning. Pt would like [facility] and declines wanting a list of other [facility] agencies. Call placed to [facility] and VM left re: referral. Pt wishes to return home and states has no further concerns with going home at time of discharge. CM?to follow for any increase in home oxygen needs and any further discharge planning/needs. Advised pt to ask for CM?if any further questions/concerns/needs arise. Voices understanding. PLAN: Home w/HHC. Referral has been made to [facility]. Follow for any increase in O2 needs. Rory WHITEHEADN RN CM
[2024-11-08] MEDS: Ondansetron 4 MG/2 ML Vial IV (16:41)
[2024-11-08] MEDS: MELATONIN 10 MG TABLET PO (21:12)
[2024-11-08] MEDS: Amitriptyline 25 MG Tablet PO (21:12)
[2024-11-08] MEDS: hydrOXYzine PAM 25 MG Capsule 100 MG PO (21:12)
[2024-11-08] MEDS: Montelukast 10 MG Tablet PO (21:12)
[2024-11-08] MEDS: traZODone 100 MG Tablet PO (21:12)
[2024-11-08] MEDS: Loratadine 10 MG Tablet PO (21:13)
[2024-11-09] VITALS (11 sets, daily range): BP systolic 124–150; BP diastolic 51–84; PULSE 56–73; RESP 18–21; TEMP 36.6–36.7; O2SAT 93–95; BMI 45.3
[2024-11-09] MEDS: Ipratropium/Albuterol Sulfate 3 ML AMPUL.NEB INHALATION ×6 (02:25→23:25)
[2024-11-09] MEDS: Levothyroxine 50 MCG Tablet PO (05:27)
[2024-11-09] MEDS: Baclofen 10 MG Tablet 5 MG PO ×3 (05:27→21:18)
[2024-11-09] MEDS: Gabapentin 300 MG Capsule PO ×3 (05:27→21:18)
[2024-11-09 06:30] LABS: Absolute Lymphocyte Count 0.56 X10^3/uL (0.83-4.51); Absolute Neutrophil Count 8.4 X10^3/uL (2.0-7.7); Basophil# 0.01 X10^3/uL; Basophil% 0.1 % (0-1); Eosinophil# 0.01 X10^3/uL; Eosinophils% 0.1 % (0-5); Hematocrit 40.9 % (37-47); Lymphocyte # 0.56 X10^3/ul (0.83-4.51); Mean Corp Hgb Conc 34.2 g/dL (32-36); Mean Corpuscular Hgb 29.8 pg (27.0-32.0); Mean Platelet Vol. 10.4 fl (6.2-12.0); Monocyte# 0.27 X10^3/uL; Monocyte% 2.9 % (0-10); NRBC Flagged by Analyzer 0 % (0-5); Neutrophil # 8.37 X10^3/uL (2.7-7.7); Neutrophil % 90.4 % (47-70); POSITIVE DIFFERENTIAL YES; Platelet Count 156 K/mm3 (150-450); RBC Distribution Width CV 12.9 % (11.6-14.6); RBC Distribution Width SD 41.1 fl (35.1-43.9); White Blood Count 9.3 K/mm3 (4.4-11.0)
[2024-11-09 07:48] LABS: Anion Gap 7 (5-15); BUN 23 mg/dL (7-18); Calcium,Total 9.1 mg/dL (8.5-10.1); Chloride 102 mmol/L (98-107); Creatinine, Serum 1.15 mg/dL (0.55-1.02); EST Glomerular Filtration Rate 51 mL/min (>60); Est Glom Filt Rate - Afr Amer 62 mL/min (>60); Glucose 155 mg/dL (74-106); Potassium 4.4 mmol/L (3.5-5.1); Sodium Level 134 mmol/L (136-145)
[2024-11-09] MEDS: Nystatin Powder 15gm Bottle 1 APPLIC TOPICAL ×2 (08:48→19:38)
[2024-11-09] MEDS: 0.9% Saline Lock 10 ML Syringe IV ×5 (08:49→21:17)
[2024-11-09] MEDS: Ondansetron 4 MG/2 ML Vial IV ×2 (08:49→19:38)
[2024-11-09] MEDS: Lactulose 20 GM/30 ML UDC PO (09:16)
[2024-11-09] MEDS: APIXABAN 5 MG TABLET PO ×2 (09:16→21:18)
[2024-11-09] MEDS: ARIPiprazole 5 MG Tablet 15 MG PO (09:16)
[2024-11-09] MEDS: Losartan Potassium 25 MG Tablet PO (09:16)
[2024-11-09] MEDS: Oseltamivir Phosphate 75 MG Capsule PO ×2 (09:16→21:18)
[2024-11-09] MEDS: Carvedilol 3.125 MG TABLET PO ×2 (09:16→17:03)
[2024-11-09] MEDS: Ensure Plus High Protein 120 ML LIQUID PO ×3 (09:21→17:03)
--- NOTE | 2024-11-09 10:09 | PN_ITS ---
Subjective Subjective Patient seen and examined. She says she felt a bit better but still felt weak. She is still coughing and wheezing. She denies any chest pain, palpitations, dizziness, nausea vomiting or any other symptoms. Review of systems otherwise negative. She is on 2 L of oxygen. Objective Data Objective Data Vital Signs: Vital Signs Temp Pulse Resp BP Pulse Ox O2 Del Method O2 Flow Rate 98.1 F 73 20 H 150/84 H 93 Nasal Cannula 2 11/09/24 08:42 11/09/24 08:42 11/09/24 08:42 11/09/24 08:42 11/09/24 08:42 11/09/24 09:52 11/09/24 09:52 Oxygen Flow Rate (L/min) 2 Oxygen Delivery Method Nasal Cannula Weight: 256 lb 3.257 oz Body Mass Index (BMI) 45.3 Intake & Output: Intake and Output for Last 24 Hours 11/07/24 11/08/24 11/09/24 23:59 23:59 23:59 Intake Total 240 / 240 800 / 800 Balance 240 / 240 800 / 800 Lab / Micro Data 11/09/24 06:05 11/09/24 06:05 Labs: Laboratory Results - last 24 hr 11/09/24 06:05: WBC 9.3, RBC 4.70, Hgb 14.0, Hct 40.9, MCV 87.0, MCH 29.8, MCHC 34.2, RDW Std Deviation 41.1, RDW Coeff of Yonathan 12.9, Plt Count 156, MPV 10.4, Immature Gran % (Auto) 0.500, Neut % (Auto) 90.4 H, Lymph % (Auto) 6.0 L, [place] % (Auto) 2.9, Eos % (Auto) 0.1, Baso % (Auto) 0.1, Absolute Neuts (auto) 8.4 H, A bsolute Lymphs (auto) 0.56 L, Nucleated RBC % 0, Sodium 134 L, Potassium 4.4, Chloride 102, Carbon Dioxide 25.0, Anion Gap 7, BUN 23 H, Creatinine 1.15 H, Estim Creat Clear Calc 64.00, Est GFR (MDRD) Af Amer 62, Est GFR (MDRD) Non-Af 51 L, BUN/Creatinine Ratio 20.0, Glucose 155 H, Calcium 9.1 Micro: Microbiology 11/07/24 15:09 Sputum, Expectorated/Coughed Gram Stain - Final 11/07/24 12:14 Mucosa - Nose SARS-CoV-2, Influenza & RSV (PCR) - Final Influenzae A Physical Exam Const alert, oriented x3, no apparent distress and well nourished Constitutional Narrative: obese General Appearance: cooperative HEENT normocephalic, head/scalp atraumatic, moist oral mucous membranes and oropharynx normal Eyes PERRL and EOMs intact bilaterally Neck no lymphadenopathy and supple Lymph Lymphatic: no lymphadenopathy noted Resp Resp Narrative: mildly diminished breath sounds bilaterally, mild wheezing, bilateral coarse crackles and rhonchi Cardio regular rate, regular rhythm, S1 normal heart sound, S2 normal heart sound and no murmurs GI normal to inspection, nondistended, normoactive bowel sounds, soft to palpation and non-tender Extremity normal capillary refill, no clubbing, cyanosis or edema and no calf tenderness General Extremity: no tenderness to palpation of joints or extremities Skin General Skin Exam: no breakdown Neuro CN's II-XII intact bilaterally, no focal motor deficits and no sensory deficits noted Motor Exam: strength 5/5 throughout and general weakness Psych thought process normal and cooperative Appearance: appropriate Assessment & Plan Assessment/Plan (1) Influenza A: (2) Acute dyspnea: PLAN: Plan # Acute exacerbation of asthma and COPD as well as influenza A infection * on 2L of oxygen today. * Chest x-ray showed infiltrate or atelectasis at the left lung base. Patient still has bilateral coarse crackles. * On IV Solu-Medrol due to the wheezing. On Tamiflu * Breathing treatments with bronchodilators. Titrate oxygen to maintain saturation above 90%. * sputum culture pending; gram stain showed rare white blood cells and 1+ gram positive cocci in clusters. * in light of her persistent wheezing and crackles and now sputum gram stain showing 1+ gram positive cocci in clusters, I will initiate IV doxycycline; has multiple allergies. #paroxysmal afib: on carvedilol and eliquis #GERD: on PPI #Bipolar disorder: on abilify, trazodone and amitryptiline. #Hypothyroidism: On Synthroid #Hypertension: On carvedilol and losartan #Morbid obesity: BMI is 45. Complicates acute care, expected recovery and prognosis. DVT prophylaxis: on eliquis Charges/Coding Visit Charges Inpatient E&M: 06428 Subs Hosp L2
[2024-11-09] MEDS: Doxycycline 100 MG in Dextrose 5%-Water (250mL Bag) 250 ML 250 MG IV ×2 (11:58→21:17)
[2024-11-09] MEDS: 0.9% Normal Saline (100mL Bag) 100 ML 15 ML IV (11:59)
[2024-11-09] MEDS: Acetaminophen 325 MG Tablet 650 MG PO (19:37)
[2024-11-09] MEDS: hydrOXYzine PAM 25 MG Capsule 100 MG PO (21:17)
[2024-11-09] MEDS: Loratadine 10 MG Tablet PO (21:18)
[2024-11-09] MEDS: traZODone 100 MG Tablet PO (21:18)
[2024-11-09] MEDS: Montelukast 10 MG Tablet PO (21:18)
[2024-11-09] MEDS: MELATONIN 10 MG TABLET PO (21:18)
[2024-11-09] MEDS: Amitriptyline 25 MG Tablet PO (21:18)
[2024-11-10] VITALS (13 sets, daily range): BP systolic 134–150; BP diastolic 54–61; PULSE 51–99; RESP 16–20; TEMP 36.4–36.8; O2SAT 93–97; BMI 46.7
[2024-11-10] MEDS: Ipratropium/Albuterol Sulfate 3 ML AMPUL.NEB INHALATION ×6 (02:37→22:47)
[2024-11-10] MEDS: Baclofen 10 MG Tablet 5 MG PO ×3 (05:46→22:37)
[2024-11-10] MEDS: Gabapentin 300 MG Capsule PO ×3 (05:47→22:36)
[2024-11-10] MEDS: 0.9% Saline Lock 10 ML Syringe IV ×2 (05:47→07:46)
[2024-11-10] MEDS: Levothyroxine 50 MCG Tablet PO (05:47)
[2024-11-10 07:14] LABS: Absolute Neutrophil Count 10.7 X10^3/uL (2.0-7.7); Basophil# 0.01 X10^3/uL; Basophil% 0.1 % (0-1); Eosinophil# 0.07 X10^3/uL; Eosinophils% 0.6 % (0-5); Hemoglobin 14.2 g/dL (12.0-15.0); Lymphocyte % 6.7 % (19-41); Mean Corp Hgb Conc 33.8 g/dL (32-36); Mean Corpuscular Volume 88.6 fL (81-99); Mean Platelet Vol. 11.3 fl (6.2-12.0); Monocyte# 0.37 X10^3/uL; Monocyte% 3.1 % (0-10); NRBC Flagged by Analyzer 0 % (0-5); Neutrophil # 10.67 X10^3/uL (2.7-7.7); Neutrophil % 88.8 % (47-70); Platelet Count 148 K/mm3 (150-450); RBC Distribution Width CV 12.9 % (11.6-14.6); RBC Distribution Width SD 42.1 fl (35.1-43.9); Red Blood Count 4.74 M/mm3 (4.2-5.4)
[2024-11-10] MEDS: Ondansetron 4 MG/2 ML Vial IV (07:45)
[2024-11-10] MEDS: Carvedilol 3.125 MG TABLET PO ×2 (07:45→17:03)
[2024-11-10 07:55] LABS: Anion Gap 6 (5-15); BUN 22 mg/dL (7-18); BUN/Creat Ratio 21.8 RATIO (10-20); Calcium,Total 8.9 mg/dL (8.5-10.1); Chloride 103 mmol/L (98-107); Creatinine, Serum 1.01 mg/dL (0.55-1.02); EST Glomerular Filtration Rate 59 mL/min (>60); Est Glom Filt Rate - Afr Amer 72 mL/min (>60); Estimated Creatinine Clearance 74.13 ml/min; Glucose 143 mg/dL (74-106); Potassium 4.7 mmol/L (3.5-5.1); Sodium Level 135 mmol/L (136-145)
[2024-11-10] MEDS: ARIPiprazole 5 MG Tablet 15 MG PO (10:11)
[2024-11-10] MEDS: Ensure Plus High Protein 120 ML LIQUID PO ×4 (10:11→22:37)
[2024-11-10] MEDS: Losartan Potassium 25 MG Tablet PO (10:11)
[2024-11-10] MEDS: Lactulose 20 GM/30 ML UDC PO (10:11)
[2024-11-10] MEDS: APIXABAN 5 MG TABLET PO ×2 (10:12→22:37)
[2024-11-10] MEDS: Doxycycline 100 MG in Dextrose 5%-Water (250mL Bag) 250 ML 250 MG IV (10:12)
[2024-11-10] MEDS: Oseltamivir Phosphate 75 MG Capsule PO ×2 (10:12→22:38)
[2024-11-10] MEDS: Nystatin Powder 15gm Bottle 1 APPLIC TOPICAL ×2 (10:13→22:51)
--- NOTE | 2024-11-10 10:55 | CASEMGMT ---
Addendum entered by Jodee Burrows 11/11/24 09:34: Late entry: 11/10/24- Spoke with Esmer at [facility], they are unable to accept pt for HH. Original Note: CHITRA ALLISON notified that pt [facility] Technical [facility] Magy Kumar is present and would like to speak to CHITRA ALLISON. CHITRA ALLISON met her outside the room and then visited pt with her. Discussed with pt dc plans, pt states she is agreeable to [facility] coming into the home but did not want any services for aides that Jammie had to offer. She states that her housemate does not like people in the home. Discussed with pt that HHC would be coming into the home and was she sure that her housemate would allow this. She states I guess she doesn't have a choice. Pt aware that CHITRA ALLISON is awaiting an answer from [facility]. Jammie states pt has adult day services Mondays and Fridays as well as a medic alert button. Pt states her father could transport her home but not today. Pt denies further needs at this time.
--- NOTE | 2024-11-10 16:06 | CASEMGMT ---
Addendum entered by Catrachita Villeda 11/11/24 10:32: [facility] accepted. [facility] asked to cancel referral. SW updated. Catrachita Villeda DC Planning Asst. Addendum entered by Catrachita Villeda 11/11/24 09:52: Referral sent to [facility]. Catrachita Villeda DC Planning Asst. Addendum entered by Catrachita Villeda 11/11/24 09:38: [facility] has declined. Catrachita Villeda DC Planning Asst. Addendum entered by Catrachita Villeda 11/11/24 08:55: VM left for [facility] and msg sent to [facility] via [facility]. Catrachita Villeda DC Planning Asst. Addendum entered by Catrachita Villeda 11/10/24 16:42: [facility], [facility], and [facility] have declined. Catrachita Villeda DC Planning Asst. Original Note: Discharge Planning A list of HH providers including quality and resource use data and consistent with the patient's preferred geographic region, medical needs, and insurance network was created in [facility] Guide.? This list was provided to the pt. Pt was agreeable to sending referral to all on list. HH referral sent to [facility], [facility], [facility], and [facility]. Dominique Bagi Planning Asst.
--- NOTE | 2024-11-10 17:34 | PN.HOSP_ITS ---
Reason for Visit Reason for Visit: Diagnoses Influenza due to other identified influenza virus with other respiratory manifestations (11/07/24) Dyspnea, unspecified (11/07/24) Subjective Subjective Patient was seen and examined today, she appears comfortable at rest, she is requiring 3 L of oxygen at rest. Objective Data Objective Data Vital Signs: Vital Signs Temp Pulse Resp BP Pulse Ox O2 Del Method O2 Flow Rate 98.2 F 95 18 134/54 H 93 Nasal Cannula 3 11/10/24 14:48 11/10/24 15:50 11/10/24 15:50 11/10/24 14:48 11/10/24 14:48 11/10/24 14:48 11/10/24 14:48 Oxygen Flow Rate (L/min) 3 Oxygen Delivery Method Nasal Cannula Weight: 119.6 kg Body Mass Index (BMI) 46.7 Intake & Output: Intake and Output for Last 24 Hours 11/08/24 11/09/24 11/10/24 23:59 23:59 23:59 Intake Total 800 / 800 986.5 / 986.5 260 / 260 Balance 800 / 800 986.5 / 986.5 260 / 260 Lab / Micro Data 11/10/24 06:19 11/10/24 06:19 Labs: Laboratory Results - last 24 hr 11/10/24 06:19: WBC 12.0 H, RBC 4.74, Hgb 14.2, Hct 42.0, MCV 88.6, MCH 30.0, MCHC 33.8, RDW Std Deviation 42.1, RDW Coeff of Yonathan 12.9, Plt Count 148 L, MPV 11.3, Immature Gran % (Auto) 0.700, Neut % (Auto) 88.8 H, Lymph % (Auto) 6.7 L, [place] % (Auto) 3.1, Eos % (Auto) 0.6, Baso % (Auto) 0.1, Absolute Neuts (auto) 10.7 H, Absolute Lymphs (auto) 0.80 L, Nucleated RBC % 0, Sodium 135 L, Potassium 4.7, Chloride 103, Carbon Dioxide 26.0, Anion Gap 6, BUN 22 H, Creatinine 1.01, Estim Creat Clear Calc 74.13, Est GFR (MDRD) Af Amer 72, Est GFR (MDRD) Non-Af 59 L, BUN/Creatinine Ratio 21.8 H, Glucose 143 H, Calcium 8.9 Micro: Microbiology 11/07/24 15:09 Sputum, Expectorated/Coughed Gram Stain - Final 11/07/24 15:09 Sputum, Expectorated/Coughed Respiratory Culture - Preliminary 11/07/24 12:14 Mucosa - Nose SARS-CoV-2, Influenza & RSV (PCR) - Final Influenzae A Physical Exam Const alert, oriented x3 and no apparent distress Constitutional Narrative: Patient is morbidly obese General Appearance: cooperative, well kempt and well developed Orientation / Consciousness: awake, oriented to person, oriented to place and oriented to time HEENT normocephalic, head/scalp atraumatic and moist oral mucous membranes Eyes PERRL, EOMs intact bilaterally and conjunctivae normal Neck supple, no JVD, thyroid normal and no carotid bruits General: trachea midline Resp normal respiratory effort Resp Narrative: Expiratory wheezes are noted bilaterally Auscultation: wheezes expiratory wheezes; Negative for rales or rhonchi Cardio regular rate, regular rhythm, S1 normal heart sound, S2 normal heart sound, no murmurs, no rub and no gallops GI normal to inspection, nondistended, normoactive bowel sounds, soft to palpation, non-tender and non-distended Extremity no clubbing, cyanosis or edema Skin no rashes or lesions noted General Skin Exam: no breakdown Neuro oriented x3, CN's II-XII intact bilaterally, moves all extremities, no focal motor deficits and no sensory deficits noted Sensorium / Orientation: awake and alert Speech: speech normal Psych affect normal Assessment & Plan Assessment/Plan (1) Asthma-COPD overlap syndrome: PLAN: Plan 1. Acute exacerbation of asthma/COPD secondary to influenza A infection-patient is currently on Solu-Medrol, Tamiflu, and aerosol treatments #2 chronic hypoxic respiratory failure-patient is currently on home oxygen at night, pulse ox will be monitored #3 paroxysmal [id number] is on rate limiting agents and Eliquis #4 bipolar disorder-patient will remain on her current medications #5 essential hypertension-patient is on carvedilol and losartan #6 class III obesity-complicates care, management, recovery, and prognosis Total clinical time spent by myself addressing patient's medical issues, reviewing all of her data, and collaborating with patient's care team: 35-minute Charges/Coding Visit Charges Inpatient E&M: 26177 Subs Hosp L2
[2024-11-10] MEDS: Calcium Carbonate 500 MG Tablet 1000 MG PO (21:57)
[2024-11-10] MEDS: Doxycycline 100 MG in 0.9% Normal Saline (250mL Bag) 250 ML 250 MG IV (22:28)
[2024-11-10] MEDS: Montelukast 10 MG Tablet PO (22:36)
[2024-11-10] MEDS: traZODone 100 MG Tablet PO (22:36)
[2024-11-10] MEDS: MELATONIN 10 MG TABLET PO (22:37)
[2024-11-10] MEDS: Amitriptyline 25 MG Tablet PO (22:37)
[2024-11-10] MEDS: Nystatin Ointment 1 APPLIC TOPICAL (22:38)
[2024-11-10] MEDS: Loratadine 10 MG Tablet PO (22:38)
[2024-11-10] MEDS: hydrOXYzine PAM 25 MG Capsule 100 MG PO (22:39)
[2024-11-11] VITALS (13 sets, daily range): BP systolic 137–152; BP diastolic 63–86; PULSE 51–76; RESP 14–21; TEMP 36.5–36.6; O2SAT 92–96; BMI 47.5
[2024-11-11] MEDS: Ipratropium/Albuterol Sulfate 3 ML AMPUL.NEB INHALATION ×6 (02:58→23:46)
[2024-11-11] MEDS: Levothyroxine 50 MCG Tablet PO (05:07)
[2024-11-11] MEDS: Baclofen 10 MG Tablet 5 MG PO ×3 (05:07→22:00)
[2024-11-11] MEDS: Gabapentin 300 MG Capsule PO ×3 (05:07→22:00)
[2024-11-11] MEDS: Ondansetron 4 MG/2 ML Vial IV ×2 (05:17→21:59)
[2024-11-11 07:52] LABS: Absolute Neutrophil Count 11.1 X10^3/uL (2.0-7.7); Basophil# 0.01 X10^3/uL; Basophil% 0.1 % (0-1); Hematocrit 41.4 % (37-47); Hemoglobin 13.8 g/dL (12.0-15.0); Mean Corp Hgb Conc 33.3 g/dL (32-36); Mean Corpuscular Hgb 29.6 pg (27.0-32.0); Mean Corpuscular Volume 88.7 fL (81-99); Monocyte# 0.31 X10^3/uL; Monocyte% 2.6 % (0-10); NRBC Flagged by Analyzer 0 % (0-5); Neutrophil # 11.06 X10^3/uL (2.7-7.7); Neutrophil % 91.5 % (47-70); POSITIVE DIFFERENTIAL YES; Platelet Count 169 K/mm3 (150-450); RBC Distribution Width CV 13.1 % (11.6-14.6); RBC Distribution Width SD 42.6 fl (35.1-43.9); Red Blood Count 4.67 M/mm3 (4.2-5.4); White Blood Count 12.1 K/mm3 (4.4-11.0)
[2024-11-11] MEDS: Carvedilol 3.125 MG TABLET PO ×2 (08:05→17:06)
[2024-11-11 08:51] LABS: Anion Gap 8 (5-15); BUN 23 mg/dL (7-18); BUN/Creat Ratio 21.7 RATIO (10-20); Calcium,Total 9.5 mg/dL (8.5-10.1); Chloride 103 mmol/L (98-107); Creatinine, Serum 1.06 mg/dL (0.55-1.02); EST Glomerular Filtration Rate 56 mL/min (>60); Est Glom Filt Rate - Afr Amer 68 mL/min (>60); Estimated Creatinine Clearance 71.42 ml/min; Glucose 147 mg/dL (74-106); Potassium 4.8 mmol/L (3.5-5.1); Sodium Level 134 mmol/L (136-145)
[2024-11-11] MEDS: APIXABAN 5 MG TABLET PO ×2 (09:45→22:03)
[2024-11-11] MEDS: ARIPiprazole 5 MG Tablet 15 MG PO (09:45)
[2024-11-11] MEDS: Lactulose 20 GM/30 ML UDC PO (09:45)
[2024-11-11] MEDS: Oseltamivir Phosphate 75 MG Capsule PO ×2 (09:46→22:13)
[2024-11-11] MEDS: Ensure Plus High Protein 120 ML LIQUID PO ×3 (09:47→17:07)
[2024-11-11] MEDS: Losartan Potassium 25 MG Tablet PO (09:48)
[2024-11-11] MEDS: Nystatin Powder 15gm Bottle 1 APPLIC TOPICAL ×2 (09:55→22:02)
[2024-11-11] MEDS: Doxycycline 100 MG in 0.9% Normal Saline (250mL Bag) 250 ML 250 MG IV (09:55)
--- NOTE | 2024-11-11 15:04 | PCM.PN.HOSP ---
Reason for Visit Reason for Visit: Diagnoses Influenza due to other identified influenza virus with other respiratory manifestations (11/07/24) Chronic obstructive pulmonary disease, unspecified (11/07/24) Dyspnea, unspecified (11/07/24) Subjective Subjective Patient was seen and examined today, she still requires supplemental oxygen at 2 L/min at rest. According to nursing, patient was able to ambulate with minimal assistance. Objective Data Objective Data Vital Signs: Vital Signs Temp Pulse Resp BP Pulse Ox O2 Del Method O2 Flow Rate 97.8 F 70 16 137/66 H 93 Nasal Cannula 2 11/11/24 13:46 11/11/24 13:46 11/11/24 13:46 11/11/24 13:46 11/11/24 13:46 11/11/24 13:46 11/11/24 13:46 Oxygen Flow Rate (L/min) 2 Oxygen Delivery Method Nasal Cannula Weight: 121.8 kg Body Mass Index (BMI) 47.5 Intake & Output: Intake and Output for Last 24 Hours 11/09/24 11/10/24 11/11/24 23:59 23:59 23:59 Intake Total 986.5 / 986.5 520 / 720 710 / 710 Balance 986.5 / 986.5 520 / 720 710 / 710 Lab / Micro Data 11/11/24 06:36 11/11/24 06:36 Labs: Laboratory Results - last 24 hr 11/11/24 06:36: WBC 12.1 H, RBC 4.67, Hgb 13.8, Hct 41.4, MCV 88.7, MCH 29.6, MCHC 33.3, RDW Std Deviation 42.6, RDW Coeff of Yonathan 13.1, Plt Count 169, MPV 11.0, Immature Gran % (Auto) 0.800, Neut % (Auto) 91.5 H, Lymph % (Auto) 5.0 L, [place] % (Auto) 2.6, Eos % (Auto) 0.0, Baso % (Auto) 0.1, Absolute Neuts (auto) 11.1 H, Absolute Lymphs (auto) 0.60 L, Nucleated RBC % 0, Sodium 134 L, Potassium 4.8, Chloride 103, Carbon Dioxide 23.0, Anion Gap 8, BUN 23 H, Creatinine 1.06 H, Estim Creat Clear Calc 71.42, Est GFR (MDRD) Af Amer 68, Est GFR (MDRD) Non-Af 56 L, BUN/Creatinine Ratio 21.7 H, Glucose 147 H, Calcium 9.5 Micro: Microbiology 11/07/24 15:09 Sputum, Expectorated/Coughed Gram Stain - Final 11/07/24 15:09 Sputum, Expectorated/Coughed Respiratory Culture - Final Mixed normal respiratory sarah. No Streptococcus pneumoniae, beta-hemolytic Streptococcus or Staphylococcus aureus isolated. 11/07/24 12:14 Mucosa - Nose SARS-CoV-2, Influenza & RSV (PCR) - Final Influenzae A Physical Exam Narrative alert, oriented x3 and no apparent distress Constitutional Narrative: Patient is morbidly obese General Appearance: cooperative, well kempt and well developed Orientation / Consciousness: awake, oriented to person, oriented to place and oriented to time HEENT normocephalic, head/scalp atraumatic and moist oral mucous membranes Eyes PERRL, EOMs intact bilaterally and conjunctivae normal Neck supple, no JVD, thyroid normal and no carotid bruits General: trachea midline Resp normal respiratory effort Resp Narrative: Expiratory wheezes are noted bilaterally Auscultation: wheezes expiratory wheezes bilaterally; Negative for rales or rhonchi Cardio regular rate, regular rhythm, S1 normal heart sound, S2 normal heart sound, no murmurs, no rub and no gallops GI normal to inspection, nondistended, normoactive bowel sounds, soft to palpation, non-tender and non-distended Extremity no clubbing, cyanosis or edema Skin no rashes or lesions noted General Skin Exam: no breakdown Neuro oriented x3, CN's II-XII intact bilaterally, moves all extremities, no focal motor deficits and no sensory deficits noted Sensorium / Orientation: awake and alert Speech: speech normal Psych affect normal Assessment & Plan Assessment/Plan (1) Influenza A: (2) Asthma-COPD overlap syndrome: PLAN: Plan 1. Acute exacerbation of asthma/COPD secondary to influenza A infection-patient is currently on Solu-Medrol, patient's Tamiflu finishes tomorrow, and aerosol treatments will continue, patient's doxycycline will be stopped-patient's sputum grew out mixed normal sarah #2 chronic hypoxic respiratory failure-patient is currently on home oxygen at night, pulse ox will be monitored #3 paroxysmal [id number] is on rate limiting agents and Eliquis #4 bipolar disorder-patient will remain on her current medications #5 essential hypertension-patient is on carvedilol and losartan #6 class III obesity-complicates care, management, recovery, and prognosis Total clinical time spent by myself addressing patient's medical issues, reviewing all of her data, and collaborating with patient's care team: 35-minute Charges/Coding Visit Charges Inpatient E&M: 09958 Subs Hosp L2
[2024-11-11] MEDS: Calcium Carbonate 500 MG Tablet 1000 MG PO (17:06)
[2024-11-11] MEDS: Glycerin/Hypromellose/PEG400 15 ml Bottle OPHTHALMIC (21:57)
[2024-11-11] MEDS: MELATONIN 10 MG TABLET PO (21:58)
[2024-11-11] MEDS: hydrOXYzine PAM 25 MG Capsule 100 MG PO (21:58)
[2024-11-11] MEDS: Amitriptyline 25 MG Tablet PO (21:58)
[2024-11-11] MEDS: traZODone 100 MG Tablet PO (21:58)
[2024-11-11] MEDS: Montelukast 10 MG Tablet PO (21:58)
[2024-11-11] MEDS: Acetaminophen 325 MG Tablet 650 MG PO (22:01)
[2024-11-11] MEDS: Senna/Docusate Sodium 1 Tablet 2 TABLET PO (22:10)
[2024-11-11] MEDS: Loratadine 10 MG Tablet PO (22:11)
[2024-11-12] VITALS (10 sets, daily range): BP systolic 141–163; BP diastolic 62–85; PULSE 56–83; RESP 16–20; TEMP 36.3–36.9; O2SAT 88–96
[2024-11-12] MEDS: Ipratropium/Albuterol Sulfate 3 ML AMPUL.NEB INHALATION ×4 (03:33→14:57)
[2024-11-12] MEDS: Gabapentin 300 MG Capsule PO ×2 (05:48→13:37)
[2024-11-12] MEDS: Baclofen 10 MG Tablet 5 MG PO ×2 (05:48→13:37)
[2024-11-12] MEDS: Levothyroxine 50 MCG Tablet PO (05:48)
[2024-11-12 07:21] LABS: Absolute Lymphocyte Count 0.64 X10^3/uL (0.83-4.51); Absolute Neutrophil Count 9.6 X10^3/uL (2.0-7.7); Basophil# 0.03 X10^3/uL; Basophil% 0.3 % (0-1); Hematocrit 40.8 % (37-47); Hemoglobin 14.2 g/dL (12.0-15.0); Lymphocyte # 0.64 X10^3/ul (0.83-4.51); Lymphocyte % 5.9 % (19-41); Mean Corp Hgb Conc 34.8 g/dL (32-36); Mean Corpuscular Hgb 30.2 pg (27.0-32.0); Mean Corpuscular Volume 86.8 fL (81-99); Mean Platelet Vol. 10.4 fl (6.2-12.0); Monocyte# 0.35 X10^3/uL; Monocyte% 3.2 % (0-10); NRBC Flagged by Analyzer 0 % (0-5); Neutrophil % 88.4 % (47-70); Platelet Count 214 K/mm3 (150-450); RBC Distribution Width CV 13.1 % (11.6-14.6); White Blood Count 10.9 K/mm3 (4.4-11.0)
[2024-11-12 07:56] LABS: Anion Gap 7 (5-15); BUN 27 mg/dL (7-18); Calcium,Total 9.4 mg/dL (8.5-10.1); Chloride 101 mmol/L (98-107); Creatinine, Serum 1.04 mg/dL (0.55-1.02); EST Glomerular Filtration Rate 57 mL/min (>60); Est Glom Filt Rate - Afr Amer 69 mL/min (>60); Estimated Creatinine Clearance 72.79 ml/min; Glucose 122 mg/dL (74-106); Potassium 4.7 mmol/L (3.5-5.1); Sodium Level 135 mmol/L (136-145)
[2024-11-12] MEDS: Lactulose 20 GM/30 ML UDC PO (09:15)
[2024-11-12] MEDS: APIXABAN 5 MG TABLET PO (09:15)
[2024-11-12] MEDS: Losartan Potassium 25 MG Tablet PO (09:15)
[2024-11-12] MEDS: Carvedilol 3.125 MG TABLET PO ×2 (09:15→16:56)
[2024-11-12] MEDS: ARIPiprazole 5 MG Tablet 15 MG PO (09:15)
[2024-11-12] MEDS: Nystatin Powder 15gm Bottle 1 APPLIC TOPICAL (09:16)
[2024-11-12] MEDS: Oseltamivir Phosphate 75 MG Capsule PO (09:16)
[2024-11-12] MEDS: 0.9% Saline Lock 10 ML Syringe IV ×2 (09:27→13:38)
[2024-11-12] MEDS: Ondansetron 4 MG/2 ML Vial IV (09:27)
[2024-11-12] MEDS: Senna/Docusate Sodium 1 Tablet 2 TABLET PO (09:33)
--- NOTE | 2024-11-12 13:21 | PCM.HOSP.N ---
Hospitalist Note Oxygen testing reviewed, patient is ambulatory in the home and community and requires home oxygen with portability
[2024-11-12] MEDS: Calcium Carbonate 500 MG Tablet 1000 MG PO (13:39)
--- NOTE | 2024-11-12 14:26 | DCINST_ITS ---
Discharge Instructions Diet Discharge Diet: No restrictions DC O2, CPAP, BIPAP needs RN Home O2 Qualification: Home O2 Qualification: Is the patient on home oxygen No 11/12/24 09:21 Home O2 Qualification: AT REST 1- Pulse Ox at rest 91 11/12/24 09:21 Home O2 Qualification: WITH AMBULATION 1- Pulse Ox with ambulation 88 11/12/24 09:21 1- Oxygen Flow Rate with 0 11/12/24 09:21 ambulation 2- Pulse Ox with ambulation 95 11/12/24 09:21 2- Oxygen Flow Rate with 2 11/12/24 09:21 ambulation Home O2 Discharge instructions: Yes Type of respiratory needs?: Oxygen Oxygen frequency: With Ambulation Oxygen liters per minute during Ambulation: 2 L Dressing / Incision Discharge Activity: Return to Normal Activity Weight Bearing Status: Full weight bearing Follow Up Care Test Results: Test results from this visit will be discussed in further detail at your follow- up appointment, if applicable. Discharge Plan Admission Admit Date/Time: 11/07/24 14:20 Primary Reason for Your Visit: Acute exacerbation of asthma, influenza A Attending Provider: Charli Simmons Primary Care Provider: Elizabeth Santamaria Consulting Providers: Martha Lynch; Jessica Barron Instructions Additional Instructions / Restrictions: Use oxygen at 2 L/min during activity, you do not require oxygen at rest Discharge Orders/Prescriptions Prescriptions: New prednisone 20 mg tablet 40 mg PO DAILY Qty: 10 0RF Continued acetaminophen 325 mg capsule 325 mg PO Q4H PRN (Reason: pain) gabapentin 300 mg capsule 300 mg PO TID Nucala 100 mg/mL syringe 100 mg subcut Q4W budesonide-formoterol [Symbicort] 160-4.5 mcg/actuation HFA aerosol inhaler 2 inh inhalation DAILY Qty: 3 3RF hydroxyzine pamoate 100 mg capsule 100 mg PO QHS Eliquis 5 mg tablet 5 mg PO BID Qty: 60 11RF losartan 25 mg tablet 25 mg PO QDAY Qty: 90 3RF aripiprazole 15 mg tablet 15 mg PO DAILY trazodone 100 mg tablet 100 mg PO QHS spironolactone 25 mg tablet 25 mg PO DAILY cyclosporine [Restasis] 0.05 % dropperette 1 drp ophthalmic (eye) Q12H Patient Comments: [NO ORIGINAL SIG] lactulose [Enulose] 10 gram/15 mL solution 30 ml PO DAILY Patient Comments: [NO ORIGINAL SIG] melatonin 5 mg tablet 10 mg PO QHS Patient Comments: [NO ORIGINAL SIG] baclofen 5 mg tablet 5 mg PO 3XD nitroglycerin 0.4 mg tablet, sublingual 0.4 mg SUBLINGUAL PRN PRN (Reason: CHEST PAIN) Qty: 25 3RF furosemide 40 mg tablet 40 mg PO DAILY Qty: 30 11RF carvedilol 3.125 mg tablet 3.125 mg PO BID Qty: 60 11RF polyethylene glycol 3350 17 gram/dose powder 17 g PO QDAY PRN (Reason: constipation) Qty: 850 1RF Spiriva Respimat 1.25 mcg/actuation mist 2 puff PO DAILY PRN (Reason: for asthma) Qty: 4 4RF prochlorperazine maleate 5 mg tablet 5 mg PO TID PRN (Reason: nausea and vomiting) 30 Days Qty: 90 4RF amitriptyline 25 mg tablet 25 mg PO QHS Qty: 30 4RF cyanocobalamin (vitamin B-12) 500 mcg tablet 500 mcg PO DAILY Qty: 90 0RF cholecalciferol (vitamin D3) 50 mcg (2,000 unit) capsule 50 mcg PO DAILY Qty: 90 0RF albuterol sulfate 90 mcg/actuation HFA aerosol inhaler 2 puff inhalation Q4H PRN (Reason: shortness of breath or wheezing) Qty: 8.5 6RF Rx Instructions: administer with spacer montelukast 10 mg tablet 10 mg PO QHS Qty: 30 0RF levothyroxine 50 mcg tablet 50 mcg PO DAILY Qty: 30 0RF Rx Instructions: TAKE 1 TABLET BY MOUTH DAILY FOR THYROID loratadine 10 mg tablet 10 mg PO QHS Qty: 30 0RF omeprazole 40 mg capsule,delayed release(DR/EC) 40 mg PO DAILY Qty: 30 0RF Referrals / Follow Up: Elizabeth Santamaria MD [Primary Care Provider] - Within 2 Weeks Disposition Disposition (needs filled in before D/C Order can be placed): Home, Self Care
--- NOTE | 2024-11-12 14:44 | CASEMGMT ---
Addendum entered by Jodee Burrows 11/12/24 15:30: Received confirmation from Kathrine at [facility], they will deliver portable tanks to pt tomorrow. Original Note: RN CM into pt room, pt is aware that she will need to wear oxygen at 2L with exertion as well as at HS. Pt has a portable tank at home and states she will have someone bring it to the car for her before she gets out as the person is not able to bring it to the hospital. Pt states [facility] has been in touch with her about coming out to her home. Pt denies any further needs at this time.
--- NOTE | 2024-11-12 15:43 | CASEMGMT ---
Social Work- JOANNA called [facility] to advise of discharge. JOANNA faxed discharge instructions. Plan:Home, no needs JUAN Gomez
--- NOTE | 2024-11-16 17:07 | PCM.DC.SUM ---
Providers Date of Admission: 11/07/24 Date of Discharge: 11/12/24 Primary Care Physician: Dr. Elizabeth Santamaria MD Reason For Visit: EXACERBATION OF ASTHMA 2/2 INFLUENZA Diagnosis Discharge Diagnosis (1) Influenza A: Status: Acute Code(s): J10.1 - Influenza due to other identified influenza virus with other respiratory manifestations (2) Asthma-COPD overlap syndrome: Status: Chronic Code(s): J44.9 - Chronic obstructive pulmonary disease, unspecified Plan 1. Acute exacerbation of asthma/COPD secondary to influenza A infection-patient is currently on Solu-Medrol, patient's Tamiflu finishes tomorrow, and aerosol treatments will continue, patient's doxycycline will be stopped-patient's sputum grew out mixed normal sarah #2 chronic hypoxic respiratory failure-patient is currently on home oxygen at night, pulse ox will be monitored #3 paroxysmal U-xpu-fmmipkh is on rate limiting agents and Eliquis #4 bipolar disorder-patient will remain on her current medications #5 essential hypertension-patient is on carvedilol and losartan #6 class III obesity-complicates care, management, recovery, and prognosis Total clinical time spent by myself addressing patient's medical issues, reviewing all of her data, and collaborating with patient's care team: 35-minute Medications at Discharge Home Medications nitroglycerin 0.4 mg sublingual tablet 0.4 mg sublingual PRN PRN CHEST PAIN #25 tabs 07/09/23 acetaminophen 325 mg capsule 325 mg PO Q4H PRN pain 01/04/24 gabapentin 300 mg capsule 300 mg PO TID nerve 01/04/24 aripiprazole 15 mg tablet 15 mg PO DAILY bipolar 01/11/24 trazodone 100 mg tablet 100 mg PO QHS sleep 01/11/24 furosemide 40 mg tablet 40 mg PO DAILY #30 tabs 02/01/24 carvedilol 3.125 mg tablet 3.125 mg PO BID #60 TABLETS 03/26/24 budesonide-formoterol HFA 160 mcg-4.5 mcg/actuation aerosol inhaler (Symbicort) 2 inh inhalation DAILY asthma #3 ea 03/31/24 polyethylene glycol 3350 17 gram/dose oral powder 17 g PO QDAY PRN constipation #850 grams 05/14/24 tiotropium bromide 1.25 mcg/actuation mist for inhalation (Spiriva Respimat) 2 puff PO DAILY PRN for asthma #4 GMS 05/19/24 apixaban 5 mg tablet (Eliquis) 5 mg PO BID #60 tabs 05/21/24 hydroxyzine pamoate 100 mg capsule 100 mg PO QHS 05/21/24 mepolizumab 100 mg/mL subcutaneous syringe (Nucala) 100 mg subcut Q4W 05/21/24 prochlorperazine maleate 5 mg tablet 5 mg PO TID PRN nausea and vomiting 30 days #90 tabs 06/27/24 amitriptyline 25 mg tablet 25 mg PO QHS #30 tabs 07/31/24 losartan 25 mg tablet 25 mg PO QDAY #90 tabs 08/27/24 cholecalciferol (vitamin D3) 50 mcg (2,000 unit) capsule 50 mcg PO DAILY vit #90 caps 09/09/24 cyanocobalamin (vitamin B-12) 500 mcg tablet 500 mcg PO DAILY vit #90 tabs 09/09/24 albuterol sulfate 90 mcg/actuation aerosol inhaler 2 puff inhalation Q4H PRN shortness of breath or wheezing #8.5 grams 09/30/24 levothyroxine 50 mcg tablet 50 mcg PO DAILY thyr #30 tabs 11/06/24 loratadine 10 mg tablet 10 mg PO QHS for allergies #30 TABLETS 11/06/24 montelukast 10 mg tablet 10 mg PO QHS for allergies #30 TABLETS 11/06/24 omeprazole 40 mg capsule,delayed release 40 mg PO DAILY #30 caps 11/06/24 baclofen 5 mg tablet 5 mg PO 3XD 11/07/24 cyclosporine 0.05 % eye drops in a dropperette (Restasis) 1 drp ophthalmic (eye) Q12H 11/07/24 lactulose 10 gram/15 mL oral solution (Enulose) 30 ml PO DAILY 11/07/24 melatonin 5 mg tablet 10 mg PO QHS 11/07/24 spironolactone 25 mg tablet 25 mg PO DAILY 11/07/24 prednisone 20 mg tablet 40 mg (2 x 20 mg) PO DAILY #10 tabs 11/12/24 Hospital Course Operations None Procedures None Summary of Care Provided Minutes Spent on Discharge: 31 Hospital Course: This 59-year-old white female was seen in the emergency room at [facility] with complaints of shortness of breath with worsening cough and feelings of chest congestion. Workup included a CBC that was remarkable for white blood cell count of 4.1, chemistry profile was remarkable for creatinine of 1.1, chest x-ray showed cardiomegaly and infiltration and/or atelectasis at the left lung base with blunting of the left costophrenic angle. Patient's influenza A test was positive. Patient was tachypneic in the emergency room however on ambulation her pulse oxygenation remained from 90-91. Patient was admitted to [place] [address], placed on IV corticosteroids and given aerosol treatments, patient was treated with Tamiflu. Patient improved during her hospitalization, on 11/12/2024, patient was seen and examined: On examination she appeared in good health and spirits, she does not appear to be in any distress. Vital signs as documented. Skin warm and dry and without overt rashes. Neck without JVD, thyroid appears normal, trachea is midline, neck is supple. Lungs clear, normal air movement was noted. Heart exam notable for regular rhythm, normal sounds and absence of murmurs, rubs or gallops. Abdomen unremarkable and without evidence of organomegaly, masses, or abdominal aortic enlargement, bowel sounds are present in all 4 quadrants, no abdominal tenderness was noted. Extremities nonedematous, no cyanosis was noted, no clubbing was noted. Neuro: Cranial nerves II through XII are grossly intact, no focal motor deficits were noted, sensation to light touch and pinprick is intact, motor exam 5/5 throughout. Psych: Patient is alert and oriented x3, she does not appear anxious or depressed, she does not appear agitated. Patient appears stable for discharge on 11/12/2024, patient required 2 L of oxygen on ambulation only at the time of discharge and she was expected to use portable oxygen during activities outside her home. Weight / BMI Weight Weight: 121.8 kg Body Mass Index (BMI) 47.5 ABG / Lab / Microbiology Data 11/12/24 06:50 11/12/24 06:50 Microbiology: Microbiology 11/07/24 15:09 Sputum, Expectorated/Coughed Gram Stain - Final 11/07/24 15:09 Sputum, Expectorated/Coughed Respiratory Culture - Final Mixed normal respiratory sarah. No Streptococcus pneumoniae, beta-hemolytic Streptococcus or Staphylococcus aureus isolated. 11/07/24 12:14 Mucosa - Nose SARS-CoV-2, Influenza & RSV (PCR) - Final Influenzae A D/C Instructions Discharge Diet: No restrictions Weight Bearing Status: Full weight bearing DC O2, CPAP, BIPAP Needs RN Home O2 Qualification: Home O2 Qualification: Is the patient on home oxygen No 11/12/24 09:21 Home O2 Qualification: AT REST 1- Pulse Ox at rest 91 11/12/24 09:21 Home O2 Qualification: WITH AMBULATION 1- Pulse Ox with ambulation 88 11/12/24 09:21 1- Oxygen Flow Rate with 0 11/12/24 09:21 ambulation 2- Pulse Ox with ambulation 95 11/12/24 09:21 2- Oxygen Flow Rate with 2 11/12/24 09:21 ambulation PSN CPAP & BiPAP: BiPAP & CPAP Settings per PSN Mode BiPAP 11/11/24 23:54 Bipap Delivery Device Face Mask 11/11/24 23:54 BiPAP Expiratory Pressure 10 11/11/24 23:54 Total Flow Rate 2 11/11/24 23:54 Home O2 Discharge instructions: Yes Type of respiratory needs?: Oxygen Oxygen frequency: With Ambulation Oxygen liters per minute during Ambulation: 2 L DC home with Oxygen: Yes Home O2 MD Review: I have reviewed the oxygen testing, and the patient qualifies for home oxygen equipment and portability. The patient is mobile in the home and the community. Meaningful Use Info Meaningful Use Meaningful Use Diagnoses (Choose all that apply): None applicable Ischemic Stroke Statin Dosing Therapy Reference: STATIN DOSE THERAPY REFERENCE: * Patients > 75 years receive moderate or high dose statin therapy. * Patients 75 years or YOUNGER should receive HIGH intensity statin dose unless contraindicated. You will be required to document reason for non-treatment if statin daily dose does not meet guidelines. HIGH DOSE STATIN THERAPY DAILY Atorvastatin > than or = to 40 mg Rosuvastatin > than or = to 20 mg Amlodipine + Atorvastatin > than or = to 2.5/40 mg Ezetimibe + Simvastatin 10/80 mg Simvastatin 80mg Discharge Plan Admission Admit Date/Time: 11/07/24 14:20 Primary Reason for Your Visit: Acute exacerbation of asthma, influenza A Attending Provider: Charli Simmons Primary Care Provider: Elizabeth Santamaria Consulting Providers: Martha Lynch; Jessica Barron Instructions Additional Instructions / Restrictions: Use oxygen at 2 L/min during activity, you do not require oxygen at rest Discharge Orders/Prescriptions Prescriptions: New prednisone 20 mg tablet 40 mg PO DAILY Qty: 10 0RF Continued acetaminophen 325 mg capsule 325 mg PO Q4H PRN (Reason: pain) gabapentin 300 mg capsule 300 mg PO TID Nucala 100 mg/mL syringe 100 mg subcut Q4W budesonide-formoterol [Symbicort] 160-4.5 mcg/actuation HFA aerosol inhaler 2 inh inhalation DAILY Qty: 3 3RF hydroxyzine pamoate 100 mg capsule 100 mg PO QHS Eliquis 5 mg tablet 5 mg PO BID Qty: 60 11RF losartan 25 mg tablet 25 mg PO QDAY Qty: 90 3RF aripiprazole 15 mg tablet 15 mg PO DAILY trazodone 100 mg tablet 100 mg PO QHS spironolactone 25 mg tablet 25 mg PO DAILY cyclosporine [Restasis] 0.05 % dropperette 1 drp ophthalmic (eye) Q12H Patient Comments: [NO ORIGINAL SIG] lactulose [Enulose] 10 gram/15 mL solution 30 ml PO DAILY Patient Comments: [NO ORIGINAL SIG] melatonin 5 mg tablet 10 mg PO QHS Patient Comments: [NO ORIGINAL SIG] baclofen 5 mg tablet 5 mg PO 3XD nitroglycerin 0.4 mg tablet, sublingual 0.4 mg SUBLINGUAL PRN PRN (Reason: CHEST PAIN) Qty: 25 3RF furosemide 40 mg tablet 40 mg PO DAILY Qty: 30 11RF carvedilol 3.125 mg tablet 3.125 mg PO BID Qty: 60 11RF polyethylene glycol 3350 17 gram/dose powder 17 g PO QDAY PRN (Reason: constipation) Qty: 850 1RF Spiriva Respimat 1.25 mcg/actuation mist 2 puff PO DAILY PRN (Reason: for asthma) Qty: 4 4RF prochlorperazine maleate 5 mg tablet 5 mg PO TID PRN (Reason: nausea and vomiting) 30 Days Qty: 90 4RF amitriptyline 25 mg tablet 25 mg PO QHS Qty: 30 4RF cyanocobalamin (vitamin B-12) 500 mcg tablet 500 mcg PO DAILY Qty: 90 0RF cholecalciferol (vitamin D3) 50 mcg (2,000 unit) capsule 50 mcg PO DAILY Qty: 90 0RF albuterol sulfate 90 mcg/actuation HFA aerosol inhaler 2 puff inhalation Q4H PRN (Reason: shortness of breath or wheezing) Qty: 8.5 6RF Rx Instructions: administer with spacer montelukast 10 mg tablet 10 mg PO QHS Qty: 30 0RF levothyroxine 50 mcg tablet 50 mcg PO DAILY Qty: 30 0RF Rx Instructions: TAKE 1 TABLET BY MOUTH DAILY FOR THYROID loratadine 10 mg tablet 10 mg PO QHS Qty: 30 0RF omeprazole 40 mg capsule,delayed release(DR/EC) 40 mg PO DAILY Qty: 30 0RF Referrals / Follow Up: Elizabeth Santamaria MD [Primary Care Provider] - 12/09/24 9:00 am Disposition Disposition (needs filled in before D/C Order can be placed): Home Health Service Charges/Coding Visit Charges Inpatient E&M: 90038 Disch Hosp >30min
== END 2024-11-12 17:43 | disposition home health service (06) | DRG 113 ==
LOC: ED 14:07 → MS3 14:45
PROVIDERS: Nurse Practitioner; Student in an Organized Health Care Education/Training Program; Admitting Provider Internal Medicine; Emergency Provider Emergency Medicine; PCP Internal Medicine; Visit Provider Internal Medicine
DX: J10.1 Influenza due to other identified influenza virus with other respiratory manifestations (principal); J44.1 Chronic obstructive pulmonary disease with (acute) exacerbation; J44.0 Chronic obstructive pulmonary disease with (acute) lower respiratory infection; J96.11 Chronic respiratory failure with hypoxia; J45.901 Unspecified asthma with (acute) exacerbation; E66.01 Morbid (severe) obesity due to excess calories; F31.9 Bipolar disorder, unspecified; E03.9 Hypothyroidism, unspecified; N18.9 Chronic kidney disease, unspecified; I12.9 Hypertensive chronic kidney disease with stage 1 through stage 4 chronic kidney disease, or unspecified chronic kidney disease; I48.0 Paroxysmal atrial fibrillation; Z68.42 Body mass index [BMI] 45.0-49.9, adult; K21.9 Gastro-esophageal reflux disease without esophagitis; E78.00 Pure hypercholesterolemia, unspecified; Z79.890 Hormone replacement therapy; Z79.01 Long term (current) use of anticoagulants; Z86.16 Personal history of COVID-19; Z79.51 Long term (current) use of inhaled steroids; R91.8 Other nonspecific abnormal finding of lung field; Z87.891 Personal history of nicotine dependence; Z80.0 Family history of malignant neoplasm of digestive organs; E66.813 Obesity, class 3; R06.00 Dyspnea, unspecified; Z99.81 Dependence on supplemental oxygen
CPT/HCPCS: 36415; 71045; 71046; 80048; 80053; 84443; 85025; 87070; 87205; 87631; 93005; 94640; 94660; 94668; 97110; 97162; 97166; 97530; 97535; 97802; 99252; 99285; A4216; G0463; J2405

== ENCOUNTER → 2024-12-02 | Outpatient (CLI) | payer MEDICAID, SELFPAY ==
[2024-12-02 09:21] LABS: Bacteria 0 SEEN /hpf (None Seen); Mucous, Urine 0 SEEN /hpf (<or=2+); White Blood Cells 0 SEEN /hpf (0-5)
[2024-12-02 12:51] LABS: Color, Urine Yellow (Yellow); Glucose, Dipstick Normal (Normal); Ketone-Dipstick Negative (Negative); Leukocyte Esterase-Dipstick Negative /ul (Negative); Nitrite-Dipstick Negative (Negative); Occult Blood-Urine Negative /ul (Negative); Protein-Dipstick 15 mg/dl (Negative); Urine Bilirubin Dipstick Negative (Negative); Urine Clarity Sl. Cloudy (Clear); Urine Urobilinogen Normal (Normal)
[2024-12-02 13:11] LABS: Red Blood Cells-Urine 0 SEEN /hpf (0-5); Squamous Epithelial Cells - UA 0-5 SEEN /hpf (5-10)
== END | disposition home or self-care (01) ==
LOC: LABSPEC 09:13
PROVIDERS: PCP Internal Medicine; Referring Provider Internal Medicine; Visit Provider Internal Medicine
DX: R39.12 Poor urinary stream (principal)
CPT/HCPCS: 81001

== ENCOUNTER → 2025-02-12 | Outpatient (CLI) | payer MEDICAID, SELFPAY ==
[2025-02-12 09:35] LABS: Hematocrit 40.7 % (37-47); Hemoglobin 14.3 g/dL (12.0-15.0); Mean Corp Hgb Conc 35.1 g/dL (32-36); Mean Corpuscular Hgb 30.4 pg (27.0-32.0); Mean Corpuscular Volume 86.4 fL (81-99); Mean Platelet Vol. 10.4 fl (6.2-12.0); Platelet Count 219 K/mm3 (150-450); RBC Distribution Width CV 13.1 % (11.6-14.6); RBC Distribution Width SD 40.9 fl (35.1-43.9); Red Blood Count 4.71 M/mm3 (4.2-5.4); White Blood Count 6.1 K/mm3 (4.4-11.0)
[2025-02-12 10:30] LABS: ALB/GLOB Ratio 1.7 RATIO (0.9-2.4); AST(SGOT) 17 U/L (<=31); Alanine Aminotransfer ALT/SGPT 19 U/L (<=34); Alkaline Phosphatase 119 U/L (35-104); Anion Gap 14 (5-15); BUN 15 mg/dL (4-19); BUN/Creat Ratio 10.6 RATIO (10-20); Carbon Dioxide 20.8 mmol/L (21.0-32.0); Chloride 96 mmol/L (98-108); Creatinine, Serum 1.43 mg/dL (0.70-1.20); EST Glomerular Filtration Rate 42 (>60); Globulin 2.4 g/dL (2.2-4.2); Glucose 95 mg/dL (70-99); Potassium 3.7 mmol/L (3.3-5.1); Protein, Total 6.4 g/dL (5.9-8.4); Sodium Level 130 mmol/L (133-145); Total Bilirubin 0.32 mg/dL (0.00-1.30); Vitamin B12 1379 pg/mL (180-914)
[2025-02-14 16:09] LABS: Vitamin D 1,25-Dihydroxy 51.7 pg/mL (24.8-81.5)
[2025-02-18 14:08] LABS: Folates, RBC Test 804 ng/mL (>498)
== END | disposition home or self-care (01) ==
LOC: PSN 08:44
PROVIDERS: PCP Internal Medicine; Referring Provider Psychiatry & Neurology Neurology; Visit Provider Physician Assistant Medical
DX: R55 Syncope and collapse (principal); G57.90 Unspecified mononeuropathy of unspecified lower limb; R26.9 Unspecified abnormalities of gait and mobility
CPT/HCPCS: 36415; 80053; 82607; 82652; 82747; 83735; 83883; 84425; 84443; 85014; 85027; 93225; 93226

== ENCOUNTER → 2025-03-10 | Outpatient (CLI) | payer MEDICAID, SELFPAY ==
--- NOTE | 2025-03-10 08:51 | NEURO_ITS ---
NCS and/or EMG Patient Report Ordering Doctor: Antonio Grider DATE OF SERVICE: 03/10/25 Clinical Summary: 60 year old female patient presenting with symptoms of numbness on the dorsum of the left foot and toes since 2009. She also has a history of right leg weakness s/p stroke. She is on Eliquis. Nerve Conduction Studies Summary: Nerve conduction studies were performed in the bilateral lower extremities. The left sural and left superficial peroneal SNAPs were absent. The right peroneal- EDB CMAP amplitude was diffusely reduced. The right tibial-AH CMAP amplitude was reduced at distally bilaterally. The right peroneal motor conduction velocity was reduced diffusely. The right peroneal and tibial F-wave onset latencies were prolonged. Needle Examination Summary: Needle examination of select muscles of the bilateral lower extremities was normal - although for at least some of the muscles, the motor unit firing rates were decreased as can be seen in the setting of reduced effort and/or disorder of central origin such as prior stroke. Impression: There is no definite electrodiagnostic evidence of a length-dependent, large fiber-based, peripheral polyneuropathy. There is no electrodiagnostic evidence of a lumbosacral radiculopathy or peroneal mononeuropathy in the right/left lower extremities. Comment: some of the sensory and motor responses were hampered and/or reduced in the amplitude, which can be seen in the setting of body habitus (i.e. increased underlying adipose/subcutaenous tissue). Multi Select Codes Neurology Neurology Interp Codes: 81314-65 Musc test done w/n test comp (interp) (2) and 11551-80 Nrv cndj test 7-8 studies (interp)
== END | disposition home or self-care (01) ==
LOC: PSN 06:25
PROVIDERS: PCP Internal Medicine; Referring Provider Psychiatry & Neurology Neurology; Visit Provider Psychiatry & Neurology Neurology
DX: R26.9 Unspecified abnormalities of gait and mobility (principal); M54.50 Low back pain, unspecified; M54.16 Radiculopathy, lumbar region
CPT/HCPCS: 95886; 95910

== ENCOUNTER → 2025-03-26 | Outpatient (CLI) | payer MEDICAID, SELFPAY ==
--- NOTE | 2025-03-26 07:42 | MRI_ITS ---
PROCEDURE: SPINE CERVICAL (ROUTINE) 03/26/2025 REASON FOR EXAM: ASSESS FOR CERVICAL CENTRAL CANAL STENOSIS TECHNIQUE: Multiplanar and multisequence images were obtained without IV contrast administration. COMPARISON: CT scan of the cervical spine on 01/11/2024. FINDINGS: Diffuse spondylosis. Multilevel degenerative disc disease. Multilevel facet joint arthropathy and degenerative uncovertebral joint disease. There is normal signal intensity from the visualized bone marrow without evidence of replacement or acute fracture. The visualized portions of the spinal cord are unremarkable. The visualized portions of the posterior fossa are unremarkable. There is straightening of the cervical lordosis, probably muscular spasm and pain. Evaluation of the individual levels revealed the following: C2-C3: There is mild diffuse disc bulge. The spinal canal is not narrowed. There is no evidence of neural foramina narrowing. C3-C4: There is grade 1 anterolisthesis measuring 4.2 mm. Mild diffuse disc bulge. The spinal canal is not narrowed. There is mild bilateral neural foramina narrowing. C4-C5: There is grade 1 anterolisthesis measuring 4.7 mm. Mild diffuse disc bulge. The spinal canal is mildly narrowed. There is moderate right and mild left neural foramina narrowing. C5-C6: There is grade 1 anterolisthesis measuring 5.7 mm. Mild diffuse disc bulge. The spinal canal is mildly narrowed. There is moderate bilateral neural foramina narrowing. C6-C7: There is moderate diffuse disc bulge. The spinal canal is mildly narrowed. There is mild right and moderate left neural foramina narrowing. MRI/Spine Cervical (Routine) IMPRESSION: Spondylosis. Degenerative disc disease. Reading [facility]
--- NOTE | 2025-03-26 07:42 | MRI_ITS ---
PROCEDURE: BRAIN W/WO CONTRAST 03/26/2025 REASON FOR EXAM: VERTIGO TECHNIQUE: Routine brain MRI without and with intravenous contrast. Multiplanar and multisequence images were obtained. CONTRAST: Clariscan VOLUME: 24 mL COMPARISON: 05/23/2024. FINDINGS: Multiple T2 hyperintense foci in the periventricular and subcortical white matter suggestive of moderate chronic ischemic white matter disease. Mild bilateral mastoid effusions. Benign chronic mucus retention cyst in the right maxillary sinus. Minimal chronic mucosal inflammatory changes of the left maxillary sinus and ethmoid air cells. The ventricles and extra-axial spaces are normal for the patient's age. There are no areas of abnormal signal intensity in the brain parenchyma. No abnormality is identified in the basal ganglia and thalami. No abnormality is identified in the brainstem. Unremarkable cerebellum. There is no midline shift or brain herniation. There is no demonstrated extra-axial, intraparenchymal, or intraventricular hemorrhage. There are no abnormal intra-or extra-axial fluid collections. There are no areas of restricted diffusion to suggest acute ischemia. The cerebellopontine angles, internal auditory canals and the cisternal portions of the accoustico - facial nerves are unremarkable. Unremarkable exam of the skull. Normal soft tissue structures. The remaining visualized paranasal sinuses are clear. The visualized portions of the orbits are unremarkable. No abnormal postcontrast enhancement is noted. MRI/Brain W/WO Contrast IMPRESSION: Moderate chronic ischemic white matter disease. No abnormal postcontrast enhancement is noted. Mild bilateral mastoid effusions. Benign chronic mucus retention cyst in the right maxillary sinus. Minimal chronic mucosal inflammatory changes of the left maxillary sinus and et hmoid air cells. Reading Location: [id number]
== END | disposition home or self-care (01) ==
LOC: OPMRI 07:36
PROVIDERS: PCP Internal Medicine; Referring Provider Psychiatry & Neurology Neurology; Visit Provider Psychiatry & Neurology Neurology
DX: R42 Dizziness and giddiness (principal); R26.9 Unspecified abnormalities of gait and mobility; M54.2 Cervicalgia
CPT/HCPCS: 70553; 72141; A9575

== ENCOUNTER 2025-04-08 12:40 | Emergency (ER) | payer MEDICAID, SELFPAY ==
[2025-04-08 12:41] VITALS: BP 137/95; PULSE 85; RESP 16; TEMP 36.4; O2SAT 99
[2025-04-08 13:58] LABS: Basophil# 0.02 X10^3/uL; Basophil% 0.3 % (0-1); Eosinophil# 0.04 X10^3/uL; Eosinophils% 0.6 % (0-5); Hematocrit 42.7 % (37-47); Hemoglobin 14.7 g/dL (12.0-15.0); Lymphocyte % 24.9 % (19-41); Mean Corp Hgb Conc 34.4 g/dL (32-36); Mean Corpuscular Hgb 29.7 pg (27.0-32.0); Mean Corpuscular Volume 86.3 fL (81-99); Mean Platelet Vol. 10.9 fl (6.2-12.0); Monocyte# 0.74 X10^3/uL; Monocyte% 11.5 % (0-10); NRBC Flagged by Analyzer 0 % (0-5); Neutrophil # 4.02 X10^3/uL (2.7-7.7); Neutrophil % 62.5 % (47-70); Platelet Count 197 K/mm3 (150-450); RBC Distribution Width CV 13.2 % (11.6-14.6); RBC Distribution Width SD 41.1 fl (35.1-43.9); Red Blood Count 4.95 M/mm3 (4.2-5.4); White Blood Count 6.4 K/mm3 (4.4-11.0)
[2025-04-08 14:19] LABS: Anion Gap 11 (5-15); BUN 15 mg/dL (4-19); BUN/Creat Ratio 10.9 RATIO (10-20); Calcium,Total 9.4 mg/dL (7.6-11.0); Carbon Dioxide 25.3 mmol/L (21.0-32.0); Chloride 97 mmol/L (98-108); EST Glomerular Filtration Rate 43 (>60); Glucose 102 mg/dL (70-99); Potassium 4.2 mmol/L (3.3-5.1); Sodium Level 134 mmol/L (133-145)
--- NOTE | 2025-04-08 15:12 | EX.ED.DYSGE1 ---
HPI History of Present Illness Chief Complaint: Dizziness Narrative Narrative: Chief complaint and HPI: Headache. 60-year-old female with significant past medical history of COPD, paroxysmal atrial fibrillation on Eliquis, CAD CKD, CHF, migraines presents for evaluation of headache. Patient states that she has been having chronic balance issues in which she has had an extensive workup consisting of MRI of the brain and cervical spine this month. Patient states she has been having chronic nausea as well in which she was placed on a scopolamine patch. Started the patch on Sunday. Patient states on Sunday she woke up with headache, dry mouth, and brain fogginess. Triage note states dizziness however patient denies dizziness to me. She states that she is always unbalanced but this is more of a brain fogginess. She is still wearing the scopolamine patch. She denies any fever, chills, hearing changes, vision changes, URI symptoms, chest pain, shortness of breath, abdominal pain numbness/tingling, weakness, dysuria. Review of systems: See HPI Medications: As listed on the chart Allergies: As listed on the chart PFSH: Per chart Vital signs: As listed on the chart. Reviewed. Physical exam: Gen: A&O x3, NAD Head: Normocephalic, atraumatic Eyes: No sclera icterus, conjunctiva clear, PERRL, EOMI ENT: Moist mucous membranes, tympanic membranes clear bilaterally, no facial asymmetry, scopolamine patch located behind the left ear Neck: Trachea midline, No JVD CV: RRR, no murmurs, no peripheral edema Resp: Lungs CTA BL, no w/r/c GI: Abd soft, non-distended, non-tender, no r/r/g Musc: Full ROM, no deformity, strength +5/5 in all extremities, no pronator drift, no ataxia Skin: Warm, dry, intact Neuro: Alert, oriented, grossly intact, sensation intact, no focal deficits Psych: Cooperative, appropriate mood and affect [facility] Medical History (Reviewed 03/06/25 @ 14:15 by Basia Cueva GLIDING PILOT INSTRUCTOR, GLIDING PILOT INSTRUCTOR-C) COVID-19 Acute dyspnea Influenza A On home oxygen therapy COPD (chronic obstructive pulmonary disease) Irregular heart beat Atrial fibrillation Myocardial infarct Altered mental status Stroke-like symptoms Chronic anticoagulation AF (paroxysmal atrial fibrillation) Acute right-sided weakness PONV (postoperative nausea and vomiting) Adult failure to thrive Contusion of hip Back contusion Difficulty in walking Impingement of left shoulder Enchondroma of left humerus History of Holter monitoring Loss of hearing Wears glasses Bipolar disorder History of steroid therapy History of renal disease Restless legs Sleep apnea Chronic cough History of skin cancer Disease of gingiva due to infection COVID-19 virus infection Degenerative tear of meniscus of left knee Osteoarthritis of left knee Cyclic vomiting syndrome Colitis Pain of left calf Kidney disease Sarcoidosis Morbid obesity Debility Myositis Stroke/cerebrovascular accident TIA (transient ischemic attack) History of atrial fibrillation Chest pain Diarrhea Bilateral flank pain Dysuria Oral candidiasis Abdominal pain Bilateral foot pain Venous insufficiency of both lower extremities History of abnormal cervical Pap smear Wears dentures Post-menopausal Cancer Marijuana use Open wound Thyroid disease Walker as ambulation aid Arthritis Bladder disease High cholesterol Easy bruising Excessive bleeding Back pain Injury of head and neck Blackout Syncope Seizures Dietary restriction Difficulty chewing History of hiatal hernia History of ulceration History of IBS Gastric reflux Smoker CPAP (continuous positive airway pressure) dependence Shortness of breath on exertion Leg cramps History of edema History of echocardiogram Hx of tilt table evaluation History of stress test Cardiology follow-up encounter History of CHF (congestive heart failure) Family history of colon cancer Allergic rhinitis Osteoarthritis of right hip Nonrheumatic aortic (valve) insufficiency Non-rheumatic mitral regurgitation Intertriginous dermatitis associated with moisture Psychosis Orthostatic hypotension Osteoarthritis DAPHNE (obstructive sleep apnea) Schizo NEC, chrn/exacerb Peripheral artery disease Pulmonary embolism Stroke Hypothyroidism HTN (hypertension) PAF (paroxysmal atrial fibrillation) Hypokalemia Hyponatremia Arthralgia of right hip Hip dislocation, right Enlarged aorta CKD (chronic kidney disease) Bipolar 1 disorder Cyst Non-convulsive status epilepticus Migraines Asthma Aortic valve insufficiency Hypertensive crisis without congestive heart failure Left arm swelling Conversion disorder with abnormal movement Gastritis Convulsion, non-epileptic Schizophrenia Depression Home Medications ?Medication ?Instructions ?Recorded ?Last Taken ?Type acetaminophen 325 mg capsule 325 mg PO Q4H PRN pain 01/04/24 03/24/24 History gabapentin 300 mg capsule 300 mg PO TID nerve 01/04/24 11/07/24 History aripiprazole 15 mg tablet 15 mg PO DAILY bipolar 01/11/24 11/07/24 History trazodone 100 mg tablet 100 mg PO QHS sleep 01/11/24 11/06/24 History budesonide-formoterol HFA 160 2 inh inhalation DAILY asthma #3 ea 03/31/24 11/07/24 Rx mcg-4.5 mcg/actuation aerosol inhaler (Symbicort) polyethylene glycol 3350 17 17 g PO QDAY PRN constipation #850 05/14/24 Unknown Rx gram/dose oral powder grams tiotropium bromide 1.25 2 puff PO DAILY PRN for asthma #4 05/19/24 11/07/24 Rx mcg/actuation mist for inhalation GMS (Spiriva Respimat) apixaban 5 mg tablet (Eliquis) 5 mg PO BID #60 tabs 05/21/24 11/07/24 Rx hydroxyzine pamoate 100 mg capsule 100 mg PO QHS 05/21/24 11/06/24 History mepolizumab 100 mg/mL subcutaneous 100 mg subcut Q4W 05/21/24 10/22/24 History syringe (Nucala) losartan 25 mg tablet 25 mg PO QDAY #90 tabs 08/27/24 11/07/24 Rx baclofen 5 mg tablet 5 mg PO 3XD 11/07/24 11/07/24 History cyclosporine 0.05 % eye drops in a 1 drp ophthalmic (eye) Q12H 11/07/24 Unknown History dropperette (Restasis) lidocaine 5 % topical patch 3 patch topical Q24H pain #30 ea 11/17/24 Unknown Rx omeprazole 40 mg capsule,delayed 40 mg PO BID #120 caps 12/01/24 Unknown Rx release amitriptyline 25 mg tablet 25 mg PO QHS #30 tabs 12/16/24 Unknown Rx prochlorperazine maleate 5 mg 5 mg PO TID PRN nausea and 01/07/25 Unknown Rx tablet vomiting 30 days #90 tabs furosemide 40 mg tablet 40 mg PO DAILY #30 tabs 01/09/25 Unknown Rx nitroglycerin 0.4 mg sublingual 0.4 mg sublingual PRN PRN CHEST 01/22/25 Unknown Rx tablet PAIN #25 tabs albuterol sulfate 90 mcg/actuation 2 puff inhalation Q4H PRN 01/28/25 Unknown Rx aerosol inhaler shortness of breath or wheezing #8.5 grams carvedilol 3.125 mg tablet 3.125 mg PO BID #60 TABLETS 02/26/25 Unknown Rx cholecalciferol (vitamin D3) 50 50 mcg PO DAILY vit #90 caps 03/05/25 Unknown Rx mcg (2,000 unit) capsule cyanocobalamin (vitamin B-12) 500 500 mcg PO DAILY vit #90 tabs 03/05/25 Unknown Rx mcg tablet levothyroxine 50 mcg tablet 50 mcg PO DAILY thyr #90 tabs 03/05/25 Unknown Rx loratadine 10 mg tablet 10 mg PO QHS for allergies #90 03/05/25 Unknown Rx TABLETS montelukast 10 mg tablet 10 mg PO QHS for allergies #90 03/05/25 Unknown Rx TABLETS melatonin 5 mg tablet 10 mg (2 x 5 mg) PO QHS #90 tabs 03/25/25 Unknown Rx spironolactone 25 mg tablet 25 mg PO DAILY #90 tabs 03/25/25 Unknown Rx lactulose 10 gram/15 mL oral 30 ml PO DAILY #473 mL 03/31/25 Unknown Rx solution (Enulose) scopolamine base 1 mg over 3 days 1 patch transdermal Q72H PRN 04/01/25 Unknown Rx transdermal patch nausea #10 ea levofloxacin 750 mg tablet 750 mg PO DAILY 6 days #6 tabs 04/08/25 Unknown Rx Allergy/AdvReac Type Severity Reaction Status Date / Time adhesive tape Allergy Rash Verified 03/06/25 14:16 atropine sulfate (From Allergy Hives Verified 03/06/25 14:16 ) codeine phosphate (From Allergy breathing Verified 03/06/25 14:16 Tylenol-Codeine #3) problems divalproex sodium (From Allergy Unknown Verified 03/06/25 14:16 Depakote) guaifenesin Allergy Itching Verified 03/06/25 14:16 hydrocodone Allergy Itching Verified 03/06/25 14:16 hydromorphone HCl (From Allergy facial Verified 03/06/25 14:16 Dilaudid) blisters,itching hyoscyamine sulfate (From Allergy Hives Verified 03/06/25 14:16 ) latex Allergy Rash Verified 03/06/25 14:16 pantoprazole sodium (From Allergy Rash Verified 03/06/25 14:16 Protonix) phenobarbital (From ) Allergy Hives Verified 03/06/25 14:16 promethazine HCl (From Allergy Anaphylaxis Verified 03/06/25 14:16 Phenergan) ramipril Allergy Unknown Verified 03/06/25 14:16 scopolamine hydrobromide Allergy Hives Verified 03/06/25 14:16 (From ) tramadol Allergy Itching Verified 03/06/25 14:16 ziprasidone mesylate (From Allergy Unknown Verified 03/06/25 14:16 Geodon) amlodipine AdvReac Vomiting Verified 03/06/25 14:16 levofloxacin (From Levaquin) AdvReac Itching Verified 03/06/25 14:16 metoclopramide (From Reglan) AdvReac Other Verified 03/06/25 14:16 Sulfa (Sulfonamide AdvReac Vomiting Verified 03/06/25 14:16 Antibiotics) ziprasidone HCl (From Geodon) AdvReac tremors Verified 03/06/25 14:16 Family History (Reviewed 03/06/25 @ 14:15 by Basia Cueva GLIDING PILOT INSTRUCTOR, GLIDING PILOT INSTRUCTOR-C) Sister Myocardial infarction Colon cancer Mother Hypertension Arthritis Brain aneurysm Heart disease High cholesterol Sister Colon cancer Heart disease High cholesterol Hypertension Arthritis Grandmother Arthritis Diabetes CVA (cerebral vascular accident) Father Heart disease High cholesterol Hypertension Surgical History (Reviewed 03/06/25 @ 14:15 by Basia Cueva GLIDING PILOT INSTRUCTOR, GLIDING PILOT INSTRUCTOR-C) History of back surgery (~12/2023) Previous back surgery Cataract extraction status History of esophagogastroduodenoscopy (EGD) Hx of colonoscopy History of laparoscopic cholecystectomy History of uterine suspension procedure S/P carpal tunnel release bladder sling left foot Social History household members: friend(s) number of children: 4 current occupational status: unemployed history of recent travel: No Smoking Status: Former smoker quit date: 11/12/23 Tobacco: How many years used: 26 Electronic Cigarette Use: not used quit status: considering quitting alcohol intake: never substance use type: does not use caffeine: Yes Type: coffee what type of physical activity do you participate in: none seatbelt use: never do you feel safe at home: Yes additional social history: single EXAM Physical Exam Const Vital Signs: 04/08/25 12:41 04/08/25 14:33 04/08/25 15:40 Temperature 97.5 F L Temperature Source Temporal Pulse Rate 85 56 L Respiratory Rate 16 Blood Pressure 137/95 H 139/86 H Blood Pressure Mean 109 103 Pulse Ox 99 Oxygen Delivery Method Room Air 04/08/25 16:00 04/08/25 17:00 04/08/25 18:00 Temperature Temperature Source Pulse Rate 60 59 L Respiratory Rate 19 H 16 Blood Pressure 137/84 H 144/89 H 158/93 H Blood Pressure Mean 101 107 114 Pulse Ox 100 100 97 Oxygen Delivery Method Room Air 04/08/25 18:34 Temperature 97.8 F Temperature Source Pulse Rate 87 Respiratory Rate 19 H Blood Pressure 156/85 H Blood Pressure Mean 108 Pulse Ox 100 Oxygen Delivery Method MDM MDM MDM Narrative Medical decision making narrative: 60-year-old female with significant past medical history of COPD, paroxysmal atrial fibrillation on Eliquis, CAD CKD, CHF, migraines presents for evaluation of headache. Patient states that she has been having chronic balance issues in which she has had an extensive workup consisting of MRI of the brain and cervical spine this month. On chart review, her MRI brain send moderate chronic ischemic white matter disease. The MRI of the cervical spine shows spondylosis with degenerative disc disease. Patient states that she has chronic nausea in which she was recently placed on scopolamine patch. States that the patch was placed on Sunday. Woke up Sunday with headache, dry mouth, and brain fogginess. Differential diagnosis includes but is not limited to side effect from scopolamine, dehydration, electrolyte abnormality, migraine, tension headache, suspect less likely intracranial abnormality, UTI. Patient had triage protocol started due to prolonged wait time. Basic labs were ordered with EKG. NS bolus, Zofran, Tylenol ordered for symptoms. Patient has multiple allergies to multiple medications which limits what I can give for pain. Did add on CT head and UA. Scopolamine patch was removed. EKG reviewed see below. CBC without any leukocytosis or anemia. BMP shows baseline CKD. CT of the brain shows no acute abnormality. On reevaluation, patient still having headache. She has Toradol listed as an allergy although states she has tolerated in the past. Toradol ordered. Awaiting urine. UA positive for UTI. Urine culture sent. On chart review, patient has grown multiple bacteria in the past. All sensitive to Levaquin. Patient has Levaquin listed as an allergy due to pruritus. Upon further discussion with the patient, she states that she would like to try the Levaquin. First dose given here without difficulty. Will be sent home with prescription. Patient ambulated to the bathroom without difficulty. Her headache has improved. I did recommend her to stop taking the scopolamine patch as I do think this was contributing to her symptoms. She confirmed understanding of the plan. Return precautions explained. Follow-up with PCP. She confirmed understanding. Patient stable to discharge home. EKG: Interpreted by me/EM physician: EKG shows normal sinus rhythm no ST elevation. Heart rate 60. Impression: 1. UTI 2. Headache with history of migraines 3. Possible adverse effects from scopolamine patch Lab Data Labs: Laboratory Results - last 24 hr 04/08/25 04/08/25 13:48 17:20 WBC 6.4 RBC 4.95 Hgb 14.7 Hct 42.7 MCV 86.3 MCH 29.7 MCHC 34.4 RDW Std Deviation 41.1 RDW Coeff of Yonathan 13.2 Plt Count 197 MPV 10.9 Immature Gran % (Auto) 0.200 Neut % (Auto) 62.5 Lymph % (Auto) 24.9 [place] % (Auto) 11.5 H Eos % (Auto) 0.6 Baso % (Auto) 0.3 Absolute Neuts (auto) 4.0 Absolute Lymphs (auto) 1.60 Nucleated RBC % 0 Sodium 134 Potassium 4.2 Chloride 97 L Carbon Dioxide 25.3 Anion Gap 11 BUN 15 Creatinine 1.40 H Est GFR (MDRD) Non-Af 43 L BUN/Creatinine Ratio 10.9 Glucose 102 H Calcium 9.4 Urine Color Straw Urine Clarity Cloudy Urine pH 6.0 Ur Specific [place] 1.010 Urine Protein Negative Urine Glucose (UA) Normal Urine Ketones Negative Urine Occult Blood 10 H Urine Nitrite Positive H Urine Bilirubin Negative Urine Urobilinogen Normal Ur Leukocyte Esterase 500 H Urine RBC 0-5 SEEN Urine WBC 25-50 SEEN Ur Squamous Epith Cells 0-5 SEEN Urine Bacteria 4+ Urine Mucus 0 SEEN Radiography Diagnostic Testing: Clinical Impression(s) from Imaging Studies Brain CT 04/08/25 15:21 IMPRESSION: No acute intracranial finding. Reading Location: [facility] Discharge Plan Triage Chief Complaint: Dizziness ED Provider: Igor Riley Dx/Rx/DC Orders Clinical Impression: UTI (urinary tract infection), Headache Instructions: Urinary Tract Infections in Women, Understanding Headache Pain Prescriptions: New levofloxacin 750 mg tablet 750 mg PO DAILY 6 Days Qty: 6 0RF No Action acetaminophen 325 mg capsule 325 mg PO Q4H PRN (Reason: pain) gabapentin 300 mg capsule 300 mg PO TID Nucala 100 mg/mL syringe 100 mg subcut Q4W budesonide-formoterol [Symbicort] 160-4.5 mcg/actuation HFA aerosol inhaler 2 inh inhalation DAILY Qty: 3 3RF hydroxyzine pamoate 100 mg capsule 100 mg PO QHS Eliquis 5 mg tablet 5 mg PO BID Qty: 60 11RF omeprazole 40 mg capsule,delayed release(DR/EC) 40 mg PO BID Qty: 120 2RF losartan 25 mg tablet 25 mg PO QDAY Qty: 90 3RF lactulose [Enulose] 10 gram/15 mL solution 30 ml PO DAILY Qty: 473 0RF Patient Comments: [NO ORIGINAL SIG] aripiprazole 15 mg tablet 15 mg PO DAILY trazodone 100 mg tablet 100 mg PO QHS cyclosporine [Restasis] 0.05 % dropperette 1 drp ophthalmic (eye) Q12H Patient Comments: [NO ORIGINAL SIG] baclofen 5 mg tablet 5 mg PO 3XD polyethylene glycol 3350 17 gram/dose powder 17 g PO QDAY PRN (Reason: constipation) Qty: 850 1RF Spiriva Respimat 1.25 mcg/actuation mist 2 puff PO DAILY PRN (Reason: for asthma) Qty: 4 4RF lidocaine 5 % adhesive patch,medicated 3 patch topical Q24H Qty: 30 0RF Rx Instructions: APPLY ONE PATCH TO PAINFUL AREA FOR UP TO 12 HOURS, THEN REMOVE FOR 12 HOURS amitriptyline 25 mg tablet 25 mg PO QHS Qty: 30 4RF prochlorperazine maleate 5 mg tablet 5 mg PO TID PRN (Reason: nausea and vomiting) 30 Days Qty: 90 4RF furosemide 40 mg tablet 40 mg PO DAILY Qty: 30 5RF nitroglycerin 0.4 mg tablet, sublingual 0.4 mg SUBLINGUAL PRN PRN (Reason: CHEST PAIN) Qty: 25 3RF albuterol sulfate 90 mcg/actuation HFA aerosol inhaler 2 puff inhalation Q4H PRN (Reason: shortness of breath or wheezing) Qty: 8.5 6RF Rx Instructions: administer with spacer carvedilol 3.125 mg tablet 3.125 mg PO BID Qty: 60 11RF cholecalciferol (vitamin D3) 50 mcg (2,000 unit) capsule 50 mcg PO DAILY Qty: 90 0RF levothyroxine 50 mcg tablet 50 mcg PO DAILY Qty: 90 0RF Rx Instructions: TAKE 1 TABLET BY MOUTH DAILY FOR THYROID cyanocobalamin (vitamin B-12) 500 mcg tablet 500 mcg PO DAILY Qty: 90 0RF loratadine 10 mg tablet 10 mg PO QHS Qty: 90 0RF montelukast 10 mg tablet 10 mg PO QHS Qty: 90 0RF spironolactone 25 mg tablet 25 mg PO DAILY Qty: 90 0RF melatonin 5 mg tablet 10 mg PO QHS Qty: 90 1RF scopolamine base 1 mg over 3 days patch 3 day 1 patch transdermal Q72H PRN (Reason: nausea) Qty: 10 0RF Primary Care Provider: Elizabeth Santamaria Referrals: Elizabeth Santamaria MD [Primary Care Provider] - 3-5 Days Activity Restrictions/Additional Instructions: Follow-up with your primary care physician. Take all of your antibiotics, you received the first dose here. If you develop itching take Benadryl. Recommend staying away from the scopolamine patch as I cannot verify that this was not a cause of some of your symptoms. Return back to the ED if symptoms change or worsen. Print Language: Romansh Disposition Disposition: Home, Self Care Discharge Date/Time: 04/08/25 18:35
--- NOTE | 2025-04-08 15:21 | CT_ITS ---
EXAM: BRAIN/HEAD WITHOUT CONTRAST CLINICAL HISTORY: 60 y/o F with HEADACHE. COMPARISON: MRI brain 03/26/25. TECHNIQUE: Routine CT imaging of the head without IV contrast. Additional multiplanar reformats were obtained. Dose reduction techniques were used including intermediate exposure control (AEC),iterative reconstruction technique, and/or mA and/or KV dose adjustments based on patient's size. FINDINGS: The ventricles, sulci and cisterns are normal for patient age. There is no evidence of acute intracranial hemorrhage or herniation. There is no midline shift, mass effect, or extra-axial collection. Moderate patchy supratentorial white matter hypodensities. The foley-white matter interfaces are otherwise maintained. Prior ocular lens replacements. Stable right maxillary sinus retention cyst or polyp. The visualized paranasal sinuses and mastoids are otherwise unremarkable. No acute calvarial fracture or scalp hematoma. CT/Brain/Head without Contrast IMPRESSION: No acute intracranial finding. Reading Location: [id number]
[2025-04-08 15:40] VITALS: BP 139/86; PULSE 56
[2025-04-08 16:00] VITALS: BP 137/84; PULSE 60; RESP 19; O2SAT 100
[2025-04-08] MEDS: Acetaminophen 500 MG Tablet 1000 MG PO (16:19)
[2025-04-08] MEDS: Ondansetron 4 MG/2 ML Vial IV (16:19)
[2025-04-08] MEDS: 0.9% Normal Saline (1000mL) 1,000 ML 1000 ML IV (16:19)
[2025-04-08] MEDS: Ketorolac 15 MG/ML Vial IV (16:45)
[2025-04-08 17:00] VITALS: BP 144/89; PULSE 59; RESP 16; O2SAT 100
[2025-04-08 17:26] LABS: Mucous, Urine 0 SEEN /hpf (<or=2+)
[2025-04-08 17:32] LABS: Color, Urine Straw (Yellow); Glucose, Dipstick Normal (Normal); Ketone-Dipstick Negative (Negative); Leukocyte Esterase-Dipstick 500 /ul (Negative); Nitrite-Dipstick Positive (Negative); Occult Blood-Urine 10 /ul (Negative); Protein-Dipstick Negative (Negative); Urine Bilirubin Dipstick Negative (Negative); Urine Clarity Cloudy (Clear); Urine Urobilinogen Normal (Normal)
[2025-04-08 18:00] VITALS: BP 158/93; O2SAT 97
[2025-04-08 18:07] LABS: Bacteria 4+ /hpf (None Seen); Red Blood Cells-Urine 0-5 SEEN /hpf (0-5); Squamous Epithelial Cells - UA 0-5 SEEN /hpf (5-10); White Blood Cells 25-50 SEEN /hpf (0-5)
[2025-04-08] MEDS: levoFLOXacin 750 MG Tablet PO (18:22)
[2025-04-08 18:34] VITALS: BP 156/85; PULSE 87; RESP 19; TEMP 36.6; O2SAT 100
== END 2025-04-08 18:35 | disposition home or self-care (01) ==
PROVIDERS: Emergency Provider Surgery; PCP Internal Medicine; Visit Provider Surgery
DX: N39.0 Urinary tract infection, site not specified (principal); I50.9 Heart failure, unspecified; I13.0 Hypertensive heart and chronic kidney disease with heart failure and stage 1 through stage 4 chronic kidney disease, or unspecified chronic kidney disease; J44.9 Chronic obstructive pulmonary disease, unspecified; I48.0 Paroxysmal atrial fibrillation; R51.9 Headache, unspecified; M50.30 Other cervical disc degeneration, unspecified cervical region; R42 Dizziness and giddiness; I25.10 Atherosclerotic heart disease of native coronary artery without angina pectoris; E78.00 Pure hypercholesterolemia, unspecified; M47.9 Spondylosis, unspecified; N18.9 Chronic kidney disease, unspecified; Z79.01 Long term (current) use of anticoagulants; Z79.899 Other long term (current) drug therapy; Z79.890 Hormone replacement therapy; Z87.891 Personal history of nicotine dependence
CPT/HCPCS: 70450; 80048; 81001; 85025; 87077; 87086; 87088; 87186; 93005; 96361; 96374; 96375; 99285; J2405

== ENCOUNTER → 2025-05-05 | Outpatient (CLI) | payer MEDICAID, SELFPAY ==
--- NOTE | 2025-05-05 10:43 | RAD_ITS ---
EXAM: XR Left Knee Complete, 4 or More Views CLINICAL INDICATION: L KNEE PAIN TECHNIQUE: Four or more views of the left knee. COMPARISON: No relevant prior studies available. FINDINGS: BONES/JOINTS: Mild tricompartment degenerative changes of the knee joint. No acute fracture. No dislocation. SOFT TISSUES: Unremarkable. RAD/Knee 4 or More Views IMPRESSION: Degenerative changes as above. Reading Location: [id number]
[2025-05-05 11:42] VITALS: PULSE 100; PULSE 102; PULSE 103; PULSE 106; PULSE 82; PULSE 88; PULSE 90; PULSE 96; O2SAT 96; O2SAT 97; O2SAT 98; O2SAT 99
--- NOTE | 2025-05-05 12:11 | CPS ---
PATIENT ARRIVED FOR TESTING BY W/C AND USED HER ROLLATOR DURING THE TEST. SHE WAS EXPERIENCING SOME LEFT KNEE PAIN AND HAD SLIGHT LIMP DURING TESTING. 1 REST BREAK TAKEN FOR DIZZINESS AND SOB, OTHERWISE SHE WAS ABLE TO WALK CONTINUOUSLY FOR TESTING. TESTING WAS DONE WITH PATIENT ON ROOM AIR. SHE AMBULATED A TOTAL OF 708FT.
--- NOTE | 2025-05-08 11:15 | WT_ITS ---
PSN 6 Minute Walk Test 6 Minute Walk Test 6 Minute Walk Test: 6 Minute Walk Test PSN:6-Minute Walk Test Start: 05/05/25 11:42 Freq: Status: Active Protocol: [id number] Document 05/05/25 11:42 [facility] (Rec: 05/05/25 12:14 [facility] [id number]) 6 Minute Walk Test Date Performed 05/05/25 Time Performed 11:00 Height 5 ft 3 in Weight: 253 lb Weight in Pounds 253.[address]: Lillian White PHOTOGRAPHY PROFESSOR Assistive device Walker used: Pre-test Oxygen Delivery Room Air Method Pulse Ox (%) 97 Pulse Rate (60-100 82 beats/min) Dyspnea [place] Scale ( 0 0-10) Exertion [place] Scale 9 (6-20) 1st minute Oxygen Delivery Room Air Method Pulse Ox (%) 98 Pulse Rate (60-100 90 beats/min) Dyspnea [place] Scale ( 2 0-10) Number of Rests 0 Taken 2nd minute Oxygen Delivery Room Air Method Pulse Ox (%) 96 Pulse Rate (60-100 96 beats/min) Dyspnea [place] Scale ( 3 0-10) Number of Rests 1 Taken Reported Symptoms Increased Work of Breathing,Dizziness 3rd minute Oxygen Delivery Room Air Method Pulse Ox (%) 98 Pulse Rate (60-100 100 beats/min) Dyspnea [place] Scale ( 3 0-10) Number of Rests 0 Taken Reported Symptoms Increased Work of Breathing 4th minute Oxygen Delivery Room Air Method Pulse Ox (%) 99 Pulse Rate (60-100 102 H beats/min) Dyspnea [place] Scale ( 3 0-10) Number of Rests 0 Taken Reported Symptoms Increased Work of Breathing 5th minute Oxygen Delivery Room Air Method Pulse Ox (%) 97 Pulse Rate (60-100 103 H beats/min) Dyspnea [place] Scale ( 3 0-10) Number of Rests 0 Taken Reported Symptoms Increased Work of Breathing 6th minute Oxygen Delivery Room Air Method Pulse Ox (%) 98 Pulse Rate (60-100 106 H beats/min) Dyspnea [place] Scale ( 3 0-10) Number of Rests 0 Taken Reported Symptoms Increased Work of Breathing Post-test Oxygen Delivery Room Air Method Pulse Ox (%) 99 Pulse Rate (60-100 88 beats/min) Dyspnea [place] Scale ( 1 0-10) Exertion [place] Scale 9 (6-20) Full Laps Walked 12 Partial Lap, Number 0 of Tiles Walked Total Distance 708 Walked (ft) 05/05/25 12:11 Cardiopulmonary Services by Cintia Thurston PATIENT ARRIVED FOR TESTING BY W/C AND USED HER ROLLATOR DURING THE TEST. SHE WAS EXPERIENCING SOME LEFT KNEE PAIN AND HAD SLIGHT LIMP DURING TESTING. 1 REST BREAK TAKEN FOR DIZZINESS AND SOB, OTHERWISE SHE WAS ABLE TO WALK CONTINUOUSLY FOR TESTING. TESTING WAS DONE WITH PATIENT ON ROOM AIR. SHE AMBULATED A TOTAL OF 708FT. Initialized on 05/05/25 12:11 - END OF NOTE Interpretation Interpretation: The patient ambulated 708 feet over the course of 6 minutes beginning on room air with the use of a walker. Pretesting oxygen saturation was noted to be 97% on room air. With ambulation, the flo oxygen saturation was 96%. There was no significant exertional oxygen desaturation. Recommendations Recommendations: There is no indication for the use of supplemental oxygen at this time.
== END | disposition home or self-care (01) ==
PROVIDERS: PCP Internal Medicine; Referring Provider Nurse Practitioner Acute Care; Visit Provider Nurse Practitioner Acute Care
DX: J44.9 Chronic obstructive pulmonary disease, unspecified (principal); M25.562 Pain in left knee
CPT/HCPCS: 73564; 94618

== ENCOUNTER → 2025-05-07 | Outpatient (CLI) | payer MEDICAID, SELFPAY ==
--- NOTE | 2025-05-07 14:49 | CT_ITS ---
PROCEDURE: LOW DOSE CT LUNG SCREENING 05/07/2025 REASON FOR EXAM: SMOKER TECHNIQUE: LOW DOSE CT LUNG SCREENING Coronal and Sagittal reconstruction series were provided. One or more dose reduction techniques were used (e.g., Automated exposure control, adjustment of the mA and/or kV according to patient size, use of iterative reconstruction technique). REFERENCE LINK: [employer] Lung-RADS RADIATION DOSE SUMMARY: CTDlvol: 3 mGy DLP: 98 mGycm COMPARISON: No FINDINGS: Central airways are patent. There is bronchial wall thickening. On the left, there postinflammatory scarring as well as basilar atelectasis. On the right, there is mild dependent atelectasis. No consolidation, effusion or pneumothorax. On the left, no suspicious lung nodules. On the right, no suspicious lung nodules. Lower lobe calcified nodule. Unremarkable base of neck and axilla. Upper limits of normal heart size. No acute vascular pathology. Normal esophagus. Status post cholecystectomy. No acute upper abdominal findings. No acute chest wall findings. CT/Low Dose CT Lung Screening IMPRESSION: No suspicious lung nodules Lung-RADS Category: 1 Other Significant Findings: Reading Location: [place] [id number]
== END | disposition home or self-care (01) ==
LOC: CT 14:47
PROVIDERS: PCP Internal Medicine; Referring Provider Nurse Practitioner Acute Care; Visit Provider Nurse Practitioner Acute Care
DX: F17.210 Nicotine dependence, cigarettes, uncomplicated (principal)
CPT/HCPCS: 71271

== ENCOUNTER → 2025-05-08 | Outpatient (CLI) | payer MEDICAID, SELFPAY | END | disposition home or self-care (01) | LOC: PSN 10:54 | PROVIDERS: PCP Internal Medicine; Referring Provider Nurse Practitioner Acute Care; Visit Provider Nurse Practitioner Acute Care | DX: J44.9 Chronic obstructive pulmonary disease, unspecified (principal) | CPT/HCPCS: 94060; 94726; 94729 ==

== ENCOUNTER 2025-05-15 09:15 | Emergency (ER) | payer MEDICAID, SELFPAY ==
[2025-05-15 09:16] VITALS: BP 177/105; PULSE 81; RESP 18; TEMP 36.8; O2SAT 99; BMI 45.3
--- NOTE | 2025-05-15 10:23 | EX.ED.DYSGE1 ---
HPI History of Present Illness Chief Complaint: Complaint Narrative Narrative: Patient is a 60-year-old female with past medical history of COPD, atrial fibrillation on Eliquis, CAD, DAPHNE, chronic kidney disease, TIA, CVA, hypertension, hypothyroidism, bipolar disorder, aortic valve insufficiency, schizophrenia who presented to the emergency department the chief complaint of bilateral kidney pain. Patient states that she developed this last night and went to urgent care and ultimately was sent here for further evaluation management. Per patient she states that she had her urine checked for infection was told that this was normal. Patient states that she has gone into renal failure in the past and she states that she is unsure why this is the case and states that she has not required dialysis in the past [facility] Medical History COVID-19 Acute dyspnea Influenza A On home oxygen therapy COPD (chronic obstructive pulmonary disease) Irregular heart beat Atrial fibrillation Myocardial infarct Altered mental status Stroke-like symptoms Chronic anticoagulation AF (paroxysmal atrial fibrillation) Acute right-sided weakness PONV (postoperative nausea and vomiting) Adult failure to thrive Contusion of hip Back contusion Difficulty in walking Impingement of left shoulder Enchondroma of left humerus History of Holter monitoring Loss of hearing Wears glasses Bipolar disorder History of steroid therapy History of renal disease Restless legs Sleep apnea Chronic cough History of skin cancer Disease of gingiva due to infection COVID-19 virus infection Degenerative tear of meniscus of left knee Osteoarthritis of left knee Cyclic vomiting syndrome Colitis Pain of left calf Kidney disease Sarcoidosis Morbid obesity Debility Myositis Stroke/cerebrovascular accident TIA (transient ischemic attack) History of atrial fibrillation Chest pain Diarrhea Bilateral flank pain Dysuria Oral candidiasis Abdominal pain Bilateral foot pain Venous insufficiency of both lower extremities History of abnormal cervical Pap smear Wears dentures Post-menopausal Cancer Marijuana use Open wound Thyroid disease Walker as ambulation aid Arthritis Bladder disease High cholesterol Easy bruising Excessive bleeding Back pain Injury of head and neck Blackout Syncope Seizures Dietary restriction Difficulty chewing History of hiatal hernia History of ulceration History of IBS Gastric reflux Smoker CPAP (continuous positive airway pressure) dependence Shortness of breath on exertion Leg cramps History of edema History of echocardiogram Hx of tilt table evaluation History of stress test Cardiology follow-up encounter History of CHF (congestive heart failure) Family history of colon cancer Allergic rhinitis Osteoarthritis of right hip Nonrheumatic aortic (valve) insufficiency Non-rheumatic mitral regurgitation Intertriginous dermatitis associated with moisture Psychosis Orthostatic hypotension Osteoarthritis DAPHNE (obstructive sleep apnea) Schizo NEC, chrn/exacerb Peripheral artery disease Pulmonary embolism Stroke Hypothyroidism HTN (hypertension) PAF (paroxysmal atrial fibrillation) Hypokalemia Hyponatremia Arthralgia of right hip Hip dislocation, right Enlarged aorta CKD (chronic kidney disease) Bipolar 1 disorder Cyst Non-convulsive status epilepticus Migraines Asthma Aortic valve insufficiency Hypertensive crisis without congestive heart failure Left arm swelling Conversion disorder with abnormal movement Gastritis Convulsion, non-epileptic Schizophrenia Depression Home Medications ?Medication ?Instructions ?Recorded ?Last Taken ?Type acetaminophen 325 mg capsule 325 mg PO Q4H PRN pain 01/04/24 03/24/24 History aripiprazole 15 mg tablet 15 mg PO DAILY bipolar 01/11/24 11/07/24 History trazodone 100 mg tablet 100 mg PO QHS sleep 01/11/24 11/06/24 History budesonide-formoterol HFA 160 2 inh inhalation DAILY asthma #3 ea 03/31/24 11/07/24 Rx mcg-4.5 mcg/actuation aerosol inhaler (Symbicort) polyethylene glycol 3350 17 17 g PO QDAY PRN constipation #850 05/14/24 Unknown Rx gram/dose oral powder grams tiotropium bromide 1.25 2 puff PO DAILY PRN for asthma #4 05/19/24 11/07/24 Rx mcg/actuation mist for inhalation GMS (Spiriva Respimat) hydroxyzine pamoate 100 mg capsule 100 mg PO QHS 05/21/24 11/06/24 History losartan 25 mg tablet 25 mg PO QDAY #90 tabs 08/27/24 11/07/24 Rx baclofen 5 mg tablet 5 mg PO 3XD 11/07/24 11/07/24 History cyclosporine 0.05 % eye drops in a 1 drp ophthalmic (eye) Q12H 11/07/24 Unknown History dropperette (Restasis) lidocaine 5 % topical patch 3 patch topical Q24H pain #30 ea 11/17/24 Unknown Rx furosemide 40 mg tablet 40 mg PO DAILY #30 tabs 01/09/25 Unknown Rx nitroglycerin 0.4 mg sublingual 0.4 mg sublingual PRN PRN CHEST 01/22/25 Unknown Rx tablet PAIN #25 tabs albuterol sulfate 90 mcg/actuation 2 puff inhalation Q4H PRN 04/16/25 Unknown Rx aerosol inhaler shortness of breath or wheezing #8.5 grams carvedilol 3.125 mg tablet 3.125 mg PO BID #60 TABLETS 02/26/25 Unknown Rx cholecalciferol (vitamin D3) 50 50 mcg PO DAILY vit #90 caps 03/05/25 Unknown Rx mcg (2,000 unit) capsule cyanocobalamin (vitamin B-12) 500 500 mcg PO DAILY vit #90 tabs 03/05/25 Unknown Rx mcg tablet levothyroxine 50 mcg tablet 50 mcg PO DAILY thyr #90 tabs 03/05/25 Unknown Rx loratadine 10 mg tablet 10 mg PO QHS for allergies #90 03/05/25 Unknown Rx TABLETS montelukast 10 mg tablet 10 mg PO QHS for allergies #90 03/05/25 Unknown Rx TABLETS melatonin 5 mg tablet 10 mg (2 x 5 mg) PO QHS #90 tabs 03/25/25 Unknown Rx spironolactone 25 mg tablet 25 mg PO DAILY #90 tabs 03/25/25 Unknown Rx lactulose 10 gram/15 mL oral 30 ml PO DAILY #473 mL 03/31/25 Unknown Rx solution (Enulose) mepolizumab 100 mg/mL subcutaneous 100 mg subcut Q4W #1 mL 04/21/25 Unknown Rx syringe (Nucala) amitriptyline 25 mg tablet 25 mg PO QHS #30 tabs 04/28/25 Unknown Rx apixaban 5 mg tablet (Eliquis) 5 mg PO BID #60 tabs 04/28/25 Unknown Rx omeprazole 40 mg capsule,delayed 40 mg PO BID #120 caps 05/11/25 Unknown Rx release prochlorperazine maleate 5 mg 5 mg PO TID PRN nausea and 05/13/25 Unknown Rx tablet vomiting 30 days #90 tabs Allergy/AdvReac Type Severity Reaction Status Date / Time adhesive tape Allergy Rash Verified 05/15/25 09:16 atropine sulfate (From Allergy Hives Verified 05/15/25 09:16 ) codeine phosphate (From Allergy breathing Verified 05/15/25 09:16 Tylenol-Codeine #3) problems divalproex sodium (From Allergy Unknown Verified 05/15/25 09:16 Depakote) guaifenesin Allergy Itching Verified 05/15/25 09:16 hydrocodone Allergy Itching Verified 05/15/25 09:16 hydromorphone HCl (From Allergy facial Verified 05/15/25 09:16 Dilaudid) blisters,itching hyoscyamine sulfate (From Allergy Hives Verified 05/15/25 09:16 ) latex Allergy Rash Verified 05/15/25 09:16 pantoprazole sodium (From Allergy Rash Verified 05/15/25 09:16 Protonix) phenobarbital (From ) Allergy Hives Verified 05/15/25 09:16 promethazine HCl (From Allergy Anaphylaxis Verified 05/15/25 09:16 Phenergan) ramipril Allergy Unknown Verified 05/15/25 09:16 scopolamine hydrobromide Allergy Hives Verified 05/15/25 09:16 (From ) tramadol Allergy Itching Verified 05/15/25 09:16 ziprasidone mesylate (From Allergy Unknown Verified 05/15/25 09:16 Geodon) amlodipine AdvReac Vomiting Verified 05/15/25 09:16 levofloxacin (From Levaquin) AdvReac Itching Verified 05/15/25 09:16 metoclopramide (From Reglan) AdvReac Other Verified 05/15/25 09:16 Sulfa (Sulfonamide AdvReac Vomiting Verified 05/15/25 09:16 Antibiotics) ziprasidone HCl (From Geodon) AdvReac tremors Verified 05/15/25 09:16 Family History Sister Myocardial infarction Colon cancer Mother Hypertension Arthritis Brain aneurysm Heart disease High cholesterol Sister Colon cancer Heart disease High cholesterol Hypertension Arthritis Grandmother Arthritis Diabetes CVA (cerebral vascular accident) Father Heart disease High cholesterol Hypertension Surgical History History of back surgery (~12/2023) Previous back surgery Cataract extraction status History of esophagogastroduodenoscopy (EGD) Hx of colonoscopy History of laparoscopic cholecystectomy History of uterine suspension procedure S/P carpal tunnel release bladder sling left foot Social History household members: friend(s) number of children: 4 current occupational status: unemployed history of recent travel: No Smoking Status: Former smoker quit date: 11/12/23 Tobacco: How many years used: 26 Electronic Cigarette Use: not used quit status: considering quitting alcohol intake: never substance use type: does not use caffeine: Yes Type: coffee what type of physical activity do you participate in: none seatbelt use: never do you feel safe at home: Yes additional social history: single ROS ROS ED ROS Narrative Constitutional: Denies any fevers, chills, headache Eyes: Denies double vision Cardiovascular: Denies chest pain Respiratory: Shortness of breath Abdomen: Denies abdominal pain nausea vomit diarrhea : Denies any urinary symptoms Neurological: Denies any numbness, weakness, tingling Musculoskeletal: Complains of bilateral back pain as noted above Skin: Denies any rashes or lesions EXAM Physical Exam Narrative Exam Narrative: General: Patient is lying in bed rest comfortably did not appear to be in acute distress Head: Atraumatic, normocephalic Eyes: PERRL bilaterally, EOMI bilateral, no conjunctival injection noted Neck: Soft, supple, trachea midline Cardiovascular: Regular rate and rhythm no murmurs gallops rubs noted Respiratory: Clear to auscultation bilaterally Abdomen: Soft, nondistended, no tenderness to palpation Musculoskeletal: Right-sided CVA tenderness on exam, no tenderness palpation in the midline of the cervical or thoracolumbar spine Extremities: +5/5 strength noted in the bilateral upper and lower extremities, radial pulses +2/4 in the bilateral extremities Neurological: Patient follow commands that she was at [facility] year is 2024 Skin: Warm, dry, intact no rashes or lesions noted Const Vital Signs: 05/15/25 09:16 05/15/25 11:16 05/15/25 13:00 Temperature 98.3 F 98.4 F Temperature Source Oral Oral Pulse Rate 81 66 77 Respiratory Rate 18 18 20 H Blood Pressure 177/105 H 131/66 H 122/41 H Blood Pressure Mean 129 87 68 Pulse Ox 99 99 97 Oxygen Delivery Method Room Air Room Air Room Air MDM MDM MDM Narrative Medical decision making narrative: Patient is a 60-year-old female who presented to the emergency department chief complaint of back pain. On the differential diagnosis includes but not limited to UTI, pyelonephritis, urolithiasis, compression fracture. Once workup is obtained reviewed she will be reevaluated. Patient will be given IV fluids for hydration. Patient's CBC was reviewed showed no evidence leukocytosis white blood count was 6.4, he was 14.3, plate count of 211. Patient sodium normal 137, potassium normal at 4.2, creatinine was 1.27 she has underlying chronic kidney disease, AST and ALT were 17 and 16 respectively. Patient lipase normal at 13. Patient's urinalysis reviewed showed no evidence of infection. Patient CT abdomen pelvis with IV contrast was reviewed showed fatty infiltration of the liver. Status post cholecystectomy. Stable scarring in the left lower lobe. On reevaluation the patient she is feeling better she like to go home this point in time. Patient was vies follow-up with her doctor in the outpatient setting and return with worsening symptoms or other concerns. She is agreeable this plan all question concerns answered she was discharged home in stable condition Lab Data Labs: Laboratory Results - last 24 hr 05/15/25 05/15/25 10:24 10:58 WBC 6.4 RBC 4.84 Hgb 14.3 Hct 41.7 MCV 86.2 MCH 29.5 MCHC 34.3 RDW Std Deviation 42.8 RDW Coeff of Yonathan 13.7 Plt Count 211 MPV 11.0 Immature Gran % (Auto) 0.300 Neut % (Auto) 72.7 H Lymph % (Auto) 18.6 L [place] % (Auto) 7.6 Eos % (Auto) 0.5 Baso % (Auto) 0.3 Absolute Neuts (auto) 4.7 Absolute Lymphs (auto) 1.19 Nucleated RBC % 0 Sodium 137 Potassium 4.2 Chloride 100 Carbon Dioxide 25.4 Anion Gap 11 BUN 11 Creatinine 1.27 H Estim Creat Clear Calc 57.22 Est GFR (MDRD) Non-Af 48 L BUN/Creatinine Ratio 8.9 L Glucose 96 Calcium 9.4 Total Bilirubin 0.39 AST 17 ALT 16 Alkaline Phosphatase 127 H Total Protein 6.3 Albumin 4.0 Globulin 2.3 Albumin/Globulin Ratio 1.8 Lipase 13 Urine Color Straw Urine Clarity Clear Urine pH 6.5 Ur Specific [place] 1.010 Urine Protein Negative Urine Glucose (UA) Normal Urine Ketones Negative Urine Occult Blood Negative Urine Nitrite Negative Urine Bilirubin Negative Urine Urobilinogen Normal Ur Leukocyte Esterase Negative Urine RBC 0 SEEN Urine WBC 0 SEEN Ur Squamous Epith Cells 0 SEEN Urine Bacteria 0 SEEN Urine Mucus 0 SEEN Radiography Diagnostic Testing: Clinical Impression(s) from Imaging Studies Abdomen/Pelvis CT 05/15/25 11:18 IMPRESSION: Fatty infiltration of the liver. Status post cholecystectomy. Stable scarring in the left lower lobe. Reading Location: [id number] Discharge Plan Triage Chief Complaint: Complaint ED Provider: Abraham Ramirez Dx/Rx/DC Orders Clinical Impression: Back pain, COPD (chronic obstructive pulmonary disease), Atrial fibrillation Prescriptions: No Action acetaminophen 325 mg capsule 325 mg PO Q4H PRN (Reason: pain) budesonide-formoterol [Symbicort] 160-4.5 mcg/actuation HFA aerosol inhaler 2 inh inhalation DAILY Qty: 3 3RF hydroxyzine pamoate 100 mg capsule 100 mg PO QHS losartan 25 mg tablet 25 mg PO QDAY Qty: 90 3RF lactulose [Enulose] 10 gram/15 mL solution 30 ml PO DAILY Qty: 473 0RF Patient Comments: [NO ORIGINAL SIG] Nucala 100 mg/mL syringe 100 mg subcut Q4W Qty: 1 11RF aripiprazole 15 mg tablet 15 mg PO DAILY trazodone 100 mg tablet 100 mg PO QHS cyclosporine [Restasis] 0.05 % dropperette 1 drp ophthalmic (eye) Q12H Patient Comments: [NO ORIGINAL SIG] baclofen 5 mg tablet 5 mg PO 3XD polyethylene glycol 3350 17 gram/dose powder 17 g PO QDAY PRN (Reason: constipation) Qty: 850 1RF Spiriva Respimat 1.25 mcg/actuation mist 2 puff PO DAILY PRN (Reason: for asthma) Qty: 4 4RF lidocaine 5 % adhesive patch,medicated 3 patch topical Q24H Qty: 30 0RF Rx Instructions: APPLY ONE PATCH TO PAINFUL AREA FOR UP TO 12 HOURS, THEN REMOVE FOR 12 HOURS furosemide 40 mg tablet 40 mg PO DAILY Qty: 30 5RF nitroglycerin 0.4 mg tablet, sublingual 0.4 mg SUBLINGUAL PRN PRN (Reason: CHEST PAIN) Qty: 25 3RF albuterol sulfate 90 mcg/actuation HFA aerosol inhaler 2 puff inhalation Q4H PRN (Reason: shortness of breath or wheezing) Qty: 8.5 6RF Rx Instructions: administer with spacer carvedilol 3.125 mg tablet 3.125 mg PO BID Qty: 60 11RF cholecalciferol (vitamin D3) 50 mcg (2,000 unit) capsule 50 mcg PO DAILY Qty: 90 0RF levothyroxine 50 mcg tablet 50 mcg PO DAILY Qty: 90 0RF Rx Instructions: TAKE 1 TABLET BY MOUTH DAILY FOR THYROID cyanocobalamin (vitamin B-12) 500 mcg tablet 500 mcg PO DAILY Qty: 90 0RF loratadine 10 mg tablet 10 mg PO QHS Qty: 90 0RF montelukast 10 mg tablet 10 mg PO QHS Qty: 90 0RF spironolactone 25 mg tablet 25 mg PO DAILY Qty: 90 0RF melatonin 5 mg tablet 10 mg PO QHS Qty: 90 1RF Eliquis 5 mg tablet 5 mg PO BID Qty: 60 11RF amitriptyline 25 mg tablet 25 mg PO QHS Qty: 30 4RF omeprazole 40 mg capsule,delayed release(DR/EC) 40 mg PO BID Qty: 120 2RF prochlorperazine maleate 5 mg tablet 5 mg PO TID PRN (Reason: nausea and vomiting) 30 Days Qty: 90 4RF Primary Care Provider: Elizabeth Santamaria Referrals: Elizabeth Santamaria MD [Primary Care Provider] - Activity Restrictions/Additional Instructions: Follow with your doctor in the outpatient setting. Your blood work did not show any acute findings. Your urine did not have infection. Your CT scan did not show any acute findings either. Return with worsening symptoms or any other concerns Print Language: Slovak Disposition Disposition: Home, Self Care
[2025-05-15] MEDS: 0.9% Normal Saline (1000mL) 1,000 ML 999 ML IV (10:31)
[2025-05-15 10:37] LABS: Hematocrit 41.7 % (37-47); Hemoglobin 14.3 g/dL (12.0-15.0); Immature Granulocytes Count 0.020 X10^3/uL (0.0-0.0); Mean Corp Hgb Conc 34.3 g/dL (32-36); Mean Corpuscular Volume 86.2 fL (81-99); Mean Platelet Vol. 11.0 fl (6.2-12.0); NRBC Flagged by Analyzer 0 % (0-5); Platelet Count 211 K/mm3 (150-450); RBC Distribution Width CV 13.7 % (11.6-14.6); RBC Distribution Width SD 42.8 fl (35.1-43.9); Red Blood Count 4.84 M/mm3 (4.2-5.4); White Blood Count 6.4 K/mm3 (4.4-11.0)
[2025-05-15 10:59] LABS: AST(SGOT) 17 U/L (<=31); Alanine Aminotransfer ALT/SGPT 16 U/L (<=34); Albumin, Serum 4.0 g/dL (3.4-4.8); Alkaline Phosphatase 127 U/L (35-104); Anion Gap 11 (5-15); BUN 11 mg/dL (4-19); BUN/Creat Ratio 8.9 RATIO (10-20); Calcium,Total 9.4 mg/dL (7.6-11.0); Carbon Dioxide 25.4 mmol/L (21.0-32.0); Chloride 100 mmol/L (98-108); Estimated Creatinine Clearance 57.22 ml/min (50-250); Globulin 2.3 g/dL (2.2-4.2); Glucose 96 mg/dL (70-99); Lipase 13 U/L (13-75); Potassium 4.2 mmol/L (3.3-5.1)
[2025-05-15 11:05] LABS: Mucous, Urine 0 SEEN /hpf (<or=2+); Red Blood Cells-Urine 0 SEEN /hpf (0-5); Squamous Epithelial Cells - UA 0 SEEN /hpf (5-10)
[2025-05-15 11:16] VITALS: BP 131/66; PULSE 66; RESP 18; TEMP 36.9; O2SAT 99
--- NOTE | 2025-05-15 11:18 | CT_ITS ---
PROCEDURE: ABDOMEN/PELVIS W IV CONT ONLY N/A REASON FOR EXAM: R FLANK PAIN TECHNIQUE: ABDOMEN/PELVIS W IV CONT ONLY Coronal and Sagittal reconstruction series were provided. CONTRAST: Isovue-300. 95 mL. One or more dose reduction techniques were used (e.g., Automated exposure control, adjustment of the mA and/or kV according to patient size, use of iterative reconstruction technique. RADIATION DOSE SUMMARY: CTDlvol: 16.25 mGy DLP: 1251.61 mGycm COMPARISON: Prior study dated May 23, 2024. FINDINGS: Lung bases: Stable linear scarring in the left lower lobe. Liver: Diffuse fatty infiltration. Gallbladder: Surgically absent. Spleen: Normal size. Pancreas: Normal size without evidence of mass surrounding inflammation or ductal dilation. Adrenals: Unremarkable Kidneys: Unremarkable Bladder: Distended urinary bladder. Reproductive Organs: Normal uterine size and contour. Ovaries are unremarkable. Bowel: Colonic diverticulosis without diverticulitis. Appendix: The appendix is not identified. There is no inflammatory process identified in the right lower quadrant to suggest appendicitis. Lymph nodes: Unremarkable. Vasculature: Mild diffuse atherosclerotic calcifications are noted. Peritoneum / Retroperitoneum: Unremarkable Bones: Degenerative changes of the spine. Status post intrapedicular screw and doc fixation in the lower lumbar spine. CT/Abdomen/Pelvis W IV Cont ONLY IMPRESSION: Fatty infiltration of the liver. Status post cholecystectomy. Stable scarring in the left lower lobe. Reading Location: [id number]
[2025-05-15 11:45] LABS: Color, Urine Straw (Yellow); Glucose, Dipstick Normal (Normal); Ketone-Dipstick Negative (Negative); Leukocyte Esterase-Dipstick Negative /ul (Negative); Nitrite-Dipstick Negative (Negative); Occult Blood-Urine Negative /ul (Negative); Protein-Dipstick Negative (Negative); Specific Gravity, Urine 1.010 (1.002-1.030); Urine Bilirubin Dipstick Negative (Negative)
[2025-05-15 13:00] VITALS: BP 122/41; PULSE 77; RESP 20; O2SAT 97
[2025-05-15 13:52] VITALS: BP 149/41; PULSE 66; RESP 18; TEMP 36.9; O2SAT 100
== END 2025-05-15 13:58 | disposition home or self-care (01) ==
PROVIDERS: Emergency Provider Emergency Medicine; PCP Internal Medicine; Visit Provider Emergency Medicine
DX: M54.9 Dorsalgia, unspecified (principal); I13.0 Hypertensive heart and chronic kidney disease with heart failure and stage 1 through stage 4 chronic kidney disease, or unspecified chronic kidney disease; I50.9 Heart failure, unspecified; F31.9 Bipolar disorder, unspecified; J44.9 Chronic obstructive pulmonary disease, unspecified; I48.0 Paroxysmal atrial fibrillation; Z87.891 Personal history of nicotine dependence; E78.00 Pure hypercholesterolemia, unspecified; Z79.01 Long term (current) use of anticoagulants; Z86.73 Personal history of transient ischemic attack (TIA), and cerebral infarction without residual deficits; I25.2 Old myocardial infarction; G47.33 Obstructive sleep apnea (adult) (pediatric); Z99.89 Dependence on other enabling machines and devices; Z79.899 Other long term (current) drug therapy; Z79.51 Long term (current) use of inhaled steroids; E03.9 Hypothyroidism, unspecified; Z79.890 Hormone replacement therapy; K21.9 Gastro-esophageal reflux disease without esophagitis; N18.9 Chronic kidney disease, unspecified
CPT/HCPCS: 74177; 80053; 81001; 83690; 85025; 96360; 99283; Q9967; A4216

== ENCOUNTER 2025-05-27 14:00 | Outpatient (RCR) | payer MEDICAID, SELFPAY ==
--- NOTE | 2025-02-04 11:58 | HP.PTEVAL ---
Patient's Visit Information Visit Information Visit Information: NIGHAT TIMMONS is a 60 year old F referred to Physical Therapy by Dr. Elizabeth Santamaria MD with a diagnosis of . Date of Evaluation: 02/04/25 Physical Therapist: Reagan Swanson, PT, Cert MDT, OCS Visit Plan Frequency: 2x /Week Duration: 4 Weeks Plan: PT INTERVENTIONS DLS ,POSTURAL EX'S, BLE STRENGTHENING ( HIP) , ACTIVITY MODIFICATION AND FUNCTIONAL STRENGTHENING Subjective Subjective: This 60 y/o female presents to physical therapy with lumbar pain . Patient underwent s/p lumbar fusion L4-5 done by Luisa at [facility] December 2023. Patient continue to have back pain . Patient seen DR Nov 18 2024 . Did recommend PT. Patient pain located lumbar . Patient had CT SCAN - in . Aggravating factors walking < 5 mins .standing. Alleviating factors sitting/rest pain patch. Medication baclofen. Patient c/o paresthesia/tingling in legs. Coughing/sneezing -. Bowel/bladder. Pain affects sleeping. Patient has pain pain management with epidural injections last ~ 4 months. No prior PT in back .Patient condition affects QOL and function/ Patient goals to walk. VOACTION: disability SOCIAL: single Pain Bilateral: Pain Intensity (Out of 10): 6 Pain Intensity Range: 10 Objective Objective: POSTURE: mild forward posture GAIT: reciprocal pattern PALAPTION: tender LS NEURO: c/ paresthesia/tingling in leg ,L3-4 ,L4-5 ,L5-S 1/3 FLEXABILITY: hamstrings mod MMT: quads/hams 4/5 , (peak force )hip flexion right 12.9 ,left 11.1 ,hip abd right 10.8 .left 10.6 ,ankle ,5/5 LUMBAR ROM: mod loss pain ,extension mod/severe ,mod loss side glides Special Tests L/S Slump test left side: Negative L/S Slump test right side: Negative L/S Left Straight Leg Raise: Negative L/S Right Straight Leg Raise: Negative Balance/Special Test Scores Oswestry Low Back Score: 26 Goals Goal 1:: Patient to be I with HEP for back Goal Time Frame: 4-6 Weeks Goal 2:: Patient to improve peak force hip by 5 # to improve gait. Goal 3:: Patient to improve lumbar ROM for function of recovery for ADLS and put on shoes Goal Time Frame: 4-6 Weeks Goal 4:: Patient to demonstrate 50% improvement with less pain and improved function Goal Time Frame: 4-6 Weeks Goal 5:: Patient to improve back oswestry score by 5 points to improve function Goal Time Frame: 4-6 Weeks Rehabilitation Potential Physical Therapy Diagnosis: This patient has lumbar pain with weakness in legs with poor lumbar ROM and pain with positioning and motion testing pain with walking and standing < 5mins thus recommend PT Rehabilitation Potential: Fair Anticipated Interventions Patient/Client Instruction: Educate patient on: Condition and Plan of Care For the Purpose of:: To decrease pain, To increase ROM, To improve muscle performance and motor function, To improve ability to perform ADL's, To improve ability of physical actions for home/community/work/leisure, To increase flexibility/ROM, To improve endurance, To improve balance, To reduce risk of recurrence and To improve tolerance to ADL's Therapeutic Exercise to Include: Strength training, Endurance training, Body mechanics, Postural training, Flexibilty training and Dynamic Lumbar Stabilization For the Purpose of:: To decrease pain, To increase ROM, To improve muscle performance and motor function, To improve ability to perform ADL's, To increase tolerance to activity/condition/position, To improve ability of physical actions for home/community/work/leisure, To improve health of tissue, To decrease soft tissue restriction and To increase flexibility/ROM TENS: Yes IF ES: Yes Cryotherapy (ice pack, ice massage): Yes Thermo therapy (hot pack): Yes Ultrasound (thermal/non thermal): Yes For the Purpose of:: To improve nutrient delivery to tissue and To increase oxygenation perfusion Text: Thank you for the opportunity to evaluate your patient. For Medicare and Medicare HMO plans, please review the plan of care and approve it. It will need to be FAXED BACK to us at [phone] for Medicare purposes. For Medicare only, by signing this I certify the plan of care. Please let me know if there are questions or concerns regarding this plan of care. Physician Signature: Date:
--- NOTE | 2025-02-04 12:09 | HP.PTEVAL ---
Patient's Visit Information Visit Information Visit Information: NIGHAT TIMMONS is a 60 year old F referred to Physical Therapy by Dr. Elizabeth Santamaria MD with a diagnosis of lumbar radiculopathy. Date of Evaluation: 02/04/25 Physical Therapist: Reagan Swanson, PT, Cert MDT, OCS Visit Plan Frequency: 2x /Week Duration: 4 Weeks Plan: PT INTERVENTIONS DLS ,POSTURAL EX'S, BLE STRENGTHENING ( HIP) , ACTIVITY MODIFICATION AND FUNCTIONAL STRENGTHENING Subjective Subjective: This 60 y/o female presents to physical therapy with lumbar pain . Patient underwent s/p lumbar fusion L4-5 done by Luisa at [facility] December 2023. Patient continue to have back pain . Patient seen Nov 18 2024 . Did recommend PT. Patient pain located lumbar . Patient had CT SCAN - in . Aggravating factors walking < 5 mins .standing. Alleviating factors sitting/rest pain patch. Medication baclofen. Patient c/o paresthesia/tingling in legs. Coughing/sneezing -. Bowel/bladder. Pain affects sleeping. Patient has pain pain management with epidural injections last ~ 4 months. No prior PT in back .Patient condition affects QOL and function/ Patient goals to walk. VOACTION: disability SOCIAL: single Pain Bilateral: Pain Intensity (Out of 10): 6 Pain Intensity Range: 10 Objective Objective: POSTURE: mild forward posture GAIT: reciprocal pattern PALAPTION: tender LS NEURO: c/ paresthesia/tingling in leg ,L3-4 ,L4-5 ,L5-S 1/3 FLEXABILITY: hamstrings mod MMT: quads/hams 4/5 , (peak force )hip flexion right 12.9 ,left 11.1 ,hip abd right 10.8 .left 10.6 ,ankle ,5/5 LUMBAR ROM: mod loss pain ,extension mod/severe ,mod loss side glides Special Tests L/S Slump test left side: Negative L/S Slump test right side: Negative L/S Left Straight Leg Raise: Negative L/S Right Straight Leg Raise: Negative Balance/Special Test Scores Oswestry Low Back Score: 26 Goals Goal 1:: Patient to be I with HEP for back Goal Time Frame: 4-6 Weeks Goal 2:: Patient to improve peak force hip by 5 # to improve gait. Goal 3:: Patient to improve lumbar ROM for function of recovery for ADLS and put on shoes Goal Time Frame: 4-6 Weeks Goal 4:: Patient to demonstrate 50% improvement with less pain and improved function Goal Time Frame: 4-6 Weeks Goal 5:: Patient to improve back oswestry score by 5 points to improve function Goal Time Frame: 4-6 Weeks Rehabilitation Potential Physical Therapy Diagnosis: This patient has lumbar pain with weakness in legs with poor lumbar ROM and pain with positioning and motion testing pain with walking and standing < 5mins thus recommend PT Rehabilitation Potential: Fair Anticipated Interventions Patient/Client Instruction: Educate patient on: Condition and Plan of Care For the Purpose of:: To decrease pain, To increase ROM, To improve muscle performance and motor function, To improve ability to perform ADL's, To improve ability of physical actions for home/community/work/leisure, To increase flexibility/ROM, To improve endurance, To improve balance, To reduce risk of recurrence and To improve tolerance to ADL's Therapeutic Exercise to Include: Strength training, Endurance training, Body mechanics, Postural training, Flexibilty training and Dynamic Lumbar Stabilization For the Purpose of:: To decrease pain, To increase ROM, To improve muscle performance and motor function, To improve ability to perform ADL's, To increase tolerance to activity/condition/position, To improve ability of physical actions for home/community/work/leisure, To improve health of tissue, To decrease soft tissue restriction and To increase flexibility/ROM TENS: Yes IF ES: Yes Cryotherapy (ice pack, ice massage): Yes Thermo therapy (hot pack): Yes Ultrasound (thermal/non thermal): Yes For the Purpose of:: To improve nutrient delivery to tissue and To increase oxygenation perfusion Text: Thank you for the opportunity to evaluate your patient. For Medicare and Medicare HMO plans, please review the plan of care and approve it. It will need to be FAXED BACK to us at [phone] for Medicare purposes. For Medicare only, by signing this I certify the plan of care. Please let me know if there are questions or concerns regarding this plan of care. Physician Signature: Date:
--- NOTE | 2025-03-02 10:45 | HP.PTEVAL2_ITS ---
Patient's Visit Information Visit Information Visit Information: NIGHAT TIMMONS is a 60 year old F referred to Physical Therapy by Dr. Grider with a diagnosis of Dizziness giddiness. Date of Evaluation: 03/02/25 Physical Therapist: Facundo Yip, DPT, OCS, CSCS Visit Plan Frequency: 2x /Week Duration: 4 Weeks Plan: Vestibular dizzyness is questionable as it appears to be more hypotensive today, having MRI and will visit vp of technology in near future as diagnostics. obviously much imbalance especially when vision is taken away immediately. IE reviewed balance safety with HO and need to use wh walker 100% of time to avoid falling treat with slow progression of seated VOR and balance exercises challenging vestibular system carefully and challenging funcitonal balance, work to home I only once safety established. Pt immediately falls BW with ec so care to be taken and gait belt to be used. Subjective Subjective: Getting dizzy intermittently and has been bad since July. Feels like she might pass out. Sometimes just standing and last until she holds something or hits the floor. Get dizzy when she stand up. One fall a while ago. has cane and walker that she uses for knee sometimes. Dizzy is described, sometimes feels like the room is going intermittently Not sure what causes it. Gets dizzy if she looks up. Sleeps with head elevated due to Acid reflux. Sleep is OK Lives witth friend without steps, Basic ADLs all I. 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 Not employed. Spends day going to [facility] for social[facility]. Hobbies: none. Spends day watching TC. No regular exercises. chest pain 2x/month treated with nitro at home Objective Objective: Walks back to PT with L antalgia in the knee but I, trasnfers with UE chair and bed I. Steps with R only due to L knee pain and railing required, slow. Standing balance is OK but falls immeediately b ackwards with eyes closed and does not correct at all. Saved by PT 2x today. cervical aROM 25 ext, 40 L rotationa dn 45 R rotation. UE AROM WFL. sensation WNL UE. - B hallpike darrick, but has dizzyness upon arising both times, no nystagmus, - roll test. Oculomotor: pursuit and saccades are normal, VOR H makes her slightly dizzy for short duration but is able. - head thrust - ocular tilt - skew eye deviation. up from knee slightly dizzy but otheer MSQ not remarkab le dizzyness. Balance/Special Gait Scores Functional Gait Assessment Score: 17 % Disability: 43.3400 CATSIB Score (Max score 120 seconds): 30 Goals Goal 1:: VOR x 60 seconds without symptoms Goal Time Frame: 4-6 Weeks Goal 2:: FGA to reduce fall risk Goal Time Frame: 4-6 Weeks Goal 3:: I appropriate balance ex to minimize future problems Goal Time Frame: 4-6 Weeks Goal 4:: 22 or less DHI Goal Time Frame: 4-6 Weeks Rehabilitation Potential Physical Therapy Diagnosis: imbalance and feeling of dizzyness making monbility and activity challenging. Rehabilitation Potential: Questionable Anticipated Interventions Patient/Client Instruction: Educate patient on: Condition, Plan of Care and Risk Factors For the Purpose of:: To increase tolerance to activity/condition/position and To improve safety Therapeutic Exercise to Include: Strength training and Balance training For the Purpose of:: To improve muscle performance and motor function, To increase tolerance to activity/condition/position, To improve gait and locomotor functions and To improve safety text: Thank you for the opportunity to evaluate your patient. For Medicare and Medicare HMO plans, please review the plan of care and approve it. It will need to be FAXED BACK to us at [phone] for Medicare purposes. For Medicare only, by signing this I certify the plan of care. Please let me know if there are questions or concerns regarding this plan of care. Physician Signature: Date:
--- NOTE | 2025-03-25 09:47 | HP.PTDCSUM ---
Discharge Summary D/C summary: It has been my pleasure to treat NIGHAT TIMMONS referred by Dr. Elizabeth Santamaria MD, with the diagnosis of lumbar radiculopathy for a total of 7 visit(s). Discharge Date: 03/25/25 Please see the following information for a summary of their discharge status. Subjective Subjective: Patient stated doing okay some soreness Occasional left lateral leg symptoms especially when I lay on my left side Uses pain patch no medication Uses rollator due to dizziness Pain Bilateral: Pain Intensity (Out of 10): 0 Left Knee: Pain Intensity (Out of 10): 7 Overall Improvement % Improvement: 30 Objective Objective/Function: POSTURE: mild forward posture GAIT: reciprocal pattern PALAPTION: tender LS NEURO: c/ paresthesia/tingling in leg ,L3-4 ,L4-5 ,L5-S 1/3 FLEXABILITY: hamstrings mod MMT: quads 16.9 RIGHT ,LEFT 14.9 hams right 12.8 ,left 13.5 , (peak force )hip flexion right 21,4 ,left 15.1 ,hip abd right 12.8 .left 11.6 ,ankle ,5/5 LUMBAR ROM: mod loss pain ,extension mod ,mod loss side glides Goals Goal 1:: Patient to be I with HEP for back Goal Progress: Goal Met Goal 2:: Patient to improve peak force hip by 5 # to improve gait. Goal Progress: Goal Met Goal 3:: Patient to improve lumbar ROM for function of recovery for ADLS and put on shoes Goal Progress: Progressing Goal 4:: Patient to demonstrate 50% improvement with less pain and improved function Goal Progress: Progressing Goal 5:: Patient to improve back oswestry score by 5 points to improve function Goal Progress: Progressing Plan Plan: D/C D/C Information Discharge Comments: HEP d/c sentence: If there are questions or concerns regarding this patient's physical therapy, please feel free to call me at [phone]. Thank you for the referral of this patient. Sincerely, Reagan Swanson PT, Cert MDT, OCS Balance/Gait/Functional tests Balance/Special Test Scores Oswestry Low Back Score: 25 Dizziness Score: 44 Improvement % Improvement: 30
--- NOTE | 2025-05-18 09:25 | HP.PTREVAL ---
Re-Evaluation Intro: Dr. Elizabeth Santamaria MD, It has been my pleasure to treat NIGHAT TIMMONS over the last 7 visits for lumbar radiculopathy. Please see the progress note below for an update on the physical therapy plan of care! Subjective Subjective: Patient stated doing okay some soreness Occasional left lateral leg symptoms especially when I lay on my left side Uses pain patch no medication Uses rollator due to dizziness Objective Objective/Function: POSTURE: mild forward posture GAIT: reciprocal pattern PALAPTION: tender LS NEURO: c/ paresthesia/tingling in leg ,L3-4 ,L4-5 ,L5-S 1/3 FLEXABILITY: hamstrings mod MMT: quads 16.9 RIGHT ,LEFT 14.9 hams right 12.8 ,left 13.5 , (peak force )hip flexion right 21,4 ,left 15.1 ,hip abd right 12.8 .left 11.6 ,ankle ,5/5 LUMBAR ROM: mod loss pain ,extension mod ,mod loss side glides Plan Plan Plan: D/C Balance/Gait/Functional tests Balance/Special Test Scores Oswestry Low Back Score: 25 Dizziness Score: 44 Goals Goals Goal 1:: Patient to be I with HEP for back Goal Time Frame: 4-6 Weeks Goal Progress: Goal Met Goal 2:: Patient to improve peak force hip by 5 # to improve gait. Goal Progress: Goal Met Goal 3:: Patient to improve lumbar ROM for function of recovery for ADLS and put on shoes Goal Time Frame: 4-6 Weeks Goal Progress: Progressing Goal 4:: Patient to demonstrate 50% improvement with less pain and improved function Goal Time Frame: 4-6 Weeks Goal Progress: Progressing Goal 5:: Patient to improve back oswestry score by 5 points to improve function Goal Time Frame: 4-6 Weeks Goal Progress: Progressing Anticipated Interventions Anticipated Interventions Patient/Client Instruction: Educate patient on: Condition and Plan of Care For the Purpose of:: To decrease pain, To increase ROM, To improve muscle performance and motor function, To improve ability to perform ADL's, To improve ability of physical actions for home/community/work/leisure, To increase flexibility/ROM, To improve endurance, To improve balance, To reduce risk of recurrence and To improve tolerance to ADL's Therapeutic Exercise to Include: Strength training, Endurance training, Body mechanics, Postural training, Flexibilty training and Dynamic Lumbar Stabilization For the Purpose of:: To decrease pain, To increase ROM, To improve muscle performance and motor function, To improve ability to perform ADL's, To increase tolerance to activity/condition/position, To improve ability of physical actions for home/community/work/leisure, To improve health of tissue, To decrease soft tissue restriction and To increase flexibility/ROM TENS: Yes IF ES: Yes Cryotherapy (ice pack, ice massage): Yes Thermo therapy (hot pack): Yes Ultrasound (thermal/non thermal): Yes For the Purpose of:: To improve nutrient delivery to tissue and To increase oxygenation perfusion Re-Evaluation Ending Re-evaluation ending: Please do not hesitate to contact me at [phone] by phone or if you have questions or concerns regarding this new plan of care! Sincerely, Facundo Yip, DPT, OCS, CSCS
--- NOTE | 2025-05-27 14:09 | HP.PTDCS(2) ---
Discharge Summary D/C Summary: It has been my pleasure to treat NIGHAT TIMMONS referred by Dr. Elizabeth Santamaria MD, with the diagnosis of Dizziness giddiness for a total of 1 visit(s). Discharge Date: 05/27/25 Please see the following information for a summary of their discharge status. Subjective Subjective: Still gets some dizzy described as lightheadedness. Sleeps at 40 degree angle due to acid reflux for years. Not ding HEP b/c does not feel like it. Sick for the last year. Dizzyness and stteadyness is 30% better since last week, less frequent, less intense. Overall Improvement % Improvement: 30 Objective Objective/Function/Assessment: - B hallpike darrick, - roll test. MSQ positions are ento stimulating today, slight quick dizzy up from L HD but otherwise moving slowly. Walks mod I with wh walkerand recommended she usee this duee to her low FGA score. No nystagmus noticeable today with movement. Goals Patient Goals: Other Other Goals: rid dizzyness. Goal 1:: VOR x 60 seconds without symptoms Goal Progress: Not Progressing Goal 2:: FGA / to reduce fall risk Goal Progress: Not Progressing Goal 3:: I appropriate balance ex to minimize future problems Goal Progress: Not Progressing Goal 4:: 22 or less DHI Goal Progress: Not Progressing Plan Plan: d/c pt not progressing and desires d/c, will f/u with [facility]. D/C Information Discharge Comments: Not improving and ready to be don d/c sentence: If there are questions or concerns regarding this patient's physical therapy, please feel free to call me at [phone]. Thank you for the referral of this patient. Sincerely, Facundo Yip, DPT, OCS, CSCS Balance/Special Test Scores Balance/Special Test Scores Functional Gait Assessment Score: 17 % Disability: 43.3400 CATSIB Score (Max score 120 seconds): 30 Improvement % Improvement: 30
== END 2025-05-27 19:00 | disposition home or self-care (01) ==
LOC: PT 14:00
PROVIDERS: PCP Internal Medicine; Referring Provider Internal Medicine; Visit Provider Internal Medicine
DX: M54.16 Radiculopathy, lumbar region (principal); Z98.1 Arthrodesis status
CPT/HCPCS: 97110; 97162; 97164; 97530

== ENCOUNTER → 2025-05-29 | Outpatient (CLI) | payer MEDICAID, SELFPAY ==
--- NOTE | 2025-05-29 07:02 | MRI_ITS ---
PROCEDURE: SPINE LUMBAR W/WO CONTRAST 05/29/2025 REASON FOR EXAM: LOW BACK PAIN; GAIT DISORDER; HX LUMBAR FUSION TECHNIQUE: SPINE LUMBAR W/WO CONTRAST Multiplanar and multisequence images were obtained without and with intravenous gadolinium-based contrast administration. CONTRAST: Clariscan VOLUME: 23 mL COMPARISON: None. FINDINGS: Vertebrae: Unremarkable in signal and height. Alignment: Anterolisthesis L4-L5 2 mm. Conus Medullaris: Unremarkable. L1-2: No foraminal or canal stenosis. L2-3: No foraminal or canal stenosis. L3-4: Small disc bulge. Moderate canal stenosis. Bilateral facet joint arthropathy. Mild inferior bilateral foramina stenosis. L4-5: Status post posterior laminectomies and fusion with metallic hardware. No foramina stenosis. L5-S1: Disc desiccation. Disc bulge. Facet joints arthropathy. No significant foraminal or canal stenosis. Sacrum: Unremarkable. Postcontrast images: Unremarkable. Soft tissues: Two simple cysts in the upper tissues. MRI/Spine Lumbar W/WO Contrast IMPRESSION: Postsurgical changes for fusion with metallic hardware and laminectomy at L4-L5 . Moderate canal stenosis at the adjacent level L3-L4. Reading Location: [id number]
== END | disposition home or self-care (01) ==
LOC: MRI 06:57
PROVIDERS: PCP Internal Medicine; Referring Provider Psychiatry & Neurology Neurology; Visit Provider Psychiatry & Neurology Neurology
DX: M54.50 Low back pain, unspecified (principal); R26.9 Unspecified abnormalities of gait and mobility
CPT/HCPCS: 72158; A9575

== ENCOUNTER 2025-06-04 08:07 | Outpatient (CLI) | payer MEDICAID, SELFPAY ==
--- NOTE | 2025-06-04 | FLU_PTH ---
PATIENT: NIGHAT TIMMONS LOC: RAD U#:[id number] AGE/SX: 60/F ROOM: RE06/04/[address]: Dr. Antonio Grider MD : 1965 BED: DIS: 06/04/2025 SPEC #: [id number] RECD: 06/04/25 10:57 STATUS: HUMERA REAnne #: [id number] KENNEDY: 06/04/25 00:[address]: Antonio Grider DEPT: CYTOLOGY RECD BY: Peng Scott ENTERED: 06/05/25 09:07 SP TYPE: Fluid OTHR DR: MD Dr. Patrick Trujillo MD Tissues: A - Cerebrospinal Fluid Procedures: Special Stain Group II Cytospin Fluid HEADER OPERATION: Not noted PRE-OP DIAGNOSIS: Radiculopathy, lumbar region, pain in thoracic spine TISSUE SUBMITTED: A- Cerebrospinal fluid for cytology DIAGNOSIS CYTOLOGY A. Cerebrospinal fluid (cytospin): - Essentially acellular specimen. CYTOLOGY STUDY Slides are reviewed. CYTOLOGY GROSS A. Received is 1 ml of clear fluid labeled with the patient's name and and designated per the requisition as Cerebrospinal fluid. Submitted for cytology and cell block preparation. 06/05/2025 CPT: 88860
[2025-06-04 08:33] LABS: Prothrombin Time (Protime)PT. 14.2 SECONDS (11.7-14.9)
[2025-06-04 08:34] LABS: Partial Thromboplast Time 28.4 Seconds (24.1-36.2)
[2025-06-04 09:13] LABS: Glucose 107 mg/dL (70-99)
[2025-06-04 09:19] VITALS: BP 133/81; PULSE 68; RESP 16; TEMP 36.7; O2SAT 100; BMI 44.2
--- NOTE | 2025-06-04 10:02 | RAD_ITS ---
PROCEDURE: DX LUMBAR PUNCTURE W/IMG GUIDE 06/04/2025 REASON FOR EXAM: G31.84 - MILD COGNITIVE IMPAIRMENT OF UNCERTAIN OR UNKNOWN SHAY... TECHNIQUE: DX LUMBAR PUNCTURE W/IMG GUIDE COMPARISON: Lumbar spine series of 04/04/2021 FINDINGS: Procedure: Following informed consent, and using standard sterile technique, a fluoroscopically guided lumbar puncture was performed via left posterior oblique approach. 2% lidocaine local anesthesia was followed by placement of a 20 gauge spinal needle into the spinal canal at the left L2-L3 level. Approximately 16 mL of clear fluid was then successfully removed. No complication was encountered, in the patient left the department in good condition, without complaint. RAD/Dx Lumbar Puncture w/IMG Guide IMPRESSION: Successful fluoroscopically guided lumbar puncture. Laboratory results pending . Reading Location: [place] [id number]
[2025-06-04] MEDS: Lidocaine 2% (5ml sdv) 5 ML VIAL.MPF INFILT (10:24)
[2025-06-04 10:57] VITALS: BP 138/63; PULSE 56; RESP 16; O2SAT 99
[2025-06-04 11:36] LABS: Appearance CSF (character) CLEAR (Clear); CSF Color COLORLESS (Colorless); Tested Tube # 4
[2025-06-04 11:53] VITALS: BP 126/50; PULSE 72; RESP 14; O2SAT 98
[2025-06-04 12:09] LABS: RBC Count, Spinal Fluid 3 /mm-3 (None seen); White Count, CSF 1 /mm-3 (0 - 5)
[2025-06-04 12:23] LABS: Body Fluid QC Type(s) BF1Q
[2025-06-04 12:25] LABS: Glucose Spinal Fluid 60 mg/dL (40-75); Protein Spinal Fluid 26.0 mg/dL (15.0-45.0)
[2025-06-04 13:18] LABS: Cytology, Body Fluid / CSF REV
[2025-06-11 00:07] LABS: CSF:Serum Albumin Index 3 (0-8); IgG Synthesis Rate, CSF 0.5 mg/day (-9.9 TO +3.3); IgG/Alb Ratio, CSF 0.11 (0.00-0.25); Myelin Basic Protein, MBP 9.3 ng/mL (0.0-4.7); VDRL Cerebrospinal Fluid Non Reactive (Non Rea:<1:1)
== END 2025-06-04 23:59 | disposition home or self-care (01) ==
PROVIDERS: Radiology Diagnostic Radiology; PCP Internal Medicine; Referring Provider Psychiatry & Neurology Neurology; Visit Provider Psychiatry & Neurology Neurology
DX: Z01.818 Encounter for other preprocedural examination (principal); R26.9 Unspecified abnormalities of gait and mobility; G31.84 Mild cognitive impairment of uncertain or unknown etiology
CPT/HCPCS: 36415; 62328; 82040; 82042; 82784; 82945; 82947; 83873; 83916; 84155; 84157; 85610; 85730; 86592; 87070; 87077; 87186; 87205; 88108; 88305; 88313; 89050; 89051

== ENCOUNTER 2025-06-07 12:49 | Observation (INO) | payer MEDICAID, SELFPAY ==
[2025-06-07 12:49] VITALS: BP 131/89; PULSE 103; RESP 16; TEMP 36.8; O2SAT 98; BMI 44.7
--- NOTE | 2025-06-07 13:51 | EX.ED.DYSGE1 ---
HPI History of Present Illness Chief Complaint: Abn Labs Informant: patient and other (Dr. Grider) Narrative Narrative: 60-year-old female with a past 4 days has had gradual onset of neck stiffness, headache, nausea, vomiting, feeling malaised. She was already seen neurology for longstanding history of disequilibrium, an LP was done as part of the workup this past week, and today Sunday the lab called the neurologist alerting him that there were gram-negative rods in the CSF. Therefore she was sent to the hospital for admission and further testing. Patient states she is having some photophobia as well. Her neck is really stiff. [facility] Medical History On home oxygen therapy Irregular heart beat Atrial fibrillation Myocardial infarct Acute dyspnea Influenza A COVID-19 Altered mental status Stroke-like symptoms Chronic anticoagulation AF (paroxysmal atrial fibrillation) Acute right-sided weakness PONV (postoperative nausea and vomiting) Adult failure to thrive Contusion of hip Back contusion Difficulty in walking Impingement of left shoulder Enchondroma of left humerus History of Holter monitoring Loss of hearing Wears glasses Bipolar disorder History of steroid therapy History of renal disease Restless legs Sleep apnea Chronic cough History of skin cancer Disease of gingiva due to infection COVID-19 virus infection Degenerative tear of meniscus of left knee Osteoarthritis of left knee Cyclic vomiting syndrome Colitis Pain of left calf Kidney disease Sarcoidosis Morbid obesity Debility Myositis Stroke/cerebrovascular accident TIA (transient ischemic attack) History of atrial fibrillation Chest pain Diarrhea Bilateral flank pain Dysuria Oral candidiasis Abdominal pain Bilateral foot pain Venous insufficiency of both lower extremities History of abnormal cervical Pap smear Wears dentures Post-menopausal Cancer Marijuana use Open wound Thyroid disease Walker as ambulation aid Arthritis Bladder disease High cholesterol Easy bruising Excessive bleeding Back pain Injury of head and neck Blackout Syncope Seizures Dietary restriction Difficulty chewing History of hiatal hernia History of ulceration History of IBS Gastric reflux Smoker CPAP (continuous positive airway pressure) dependence Shortness of breath on exertion Leg cramps History of edema History of echocardiogram Hx of tilt table evaluation History of stress test Cardiology follow-up encounter History of CHF (congestive heart failure) Family history of colon cancer Allergic rhinitis Osteoarthritis of right hip Nonrheumatic aortic (valve) insufficiency Non-rheumatic mitral regurgitation Intertriginous dermatitis associated with moisture Psychosis Orthostatic hypotension Osteoarthritis DAPHNE (obstructive sleep apnea) Schizo NEC, chrn/exacerb Peripheral artery disease Pulmonary embolism Stroke Hypothyroidism HTN (hypertension) PAF (paroxysmal atrial fibrillation) Hypokalemia Hyponatremia Arthralgia of right hip Hip dislocation, right Enlarged aorta CKD (chronic kidney disease) Bipolar 1 disorder Cyst Non-convulsive status epilepticus Migraines Asthma Aortic valve insufficiency Hypertensive crisis without congestive heart failure Left arm swelling Conversion disorder with abnormal movement Gastritis Convulsion, non-epileptic Schizophrenia Depression Home Medications ?Medication ?Instructions ?Recorded ?Last Taken ?Type acetaminophen 325 mg capsule 325 mg PO Q4H PRN pain 01/04/24 03/24/24 History aripiprazole 15 mg tablet 15 mg PO DAILY bipolar 01/11/24 11/07/24 History trazodone 100 mg tablet 100 mg PO QHS sleep 01/11/24 11/06/24 History budesonide-formoterol HFA 160 2 inh inhalation DAILY asthma #3 ea 03/31/24 11/07/24 Rx mcg-4.5 mcg/actuation aerosol inhaler (Symbicort) polyethylene glycol 3350 17 17 g PO QDAY PRN constipation #850 05/14/24 Unknown Rx gram/dose oral powder grams hydroxyzine pamoate 100 mg capsule 100 mg PO QHS 05/21/24 11/06/24 History losartan 25 mg tablet 25 mg PO QDAY #90 tabs 08/27/24 11/07/24 Rx baclofen 5 mg tablet 5 mg PO 3XD 11/07/24 11/07/24 History cyclosporine 0.05 % eye drops in a 1 drp ophthalmic (eye) Q12H 11/07/24 Unknown History dropperette (Restasis) lidocaine 5 % topical patch 3 patch topical Q24H pain #30 ea 11/17/24 Unknown Rx furosemide 40 mg tablet 40 mg PO DAILY #30 tabs 01/09/25 Unknown Rx nitroglycerin 0.4 mg sublingual 0.4 mg sublingual PRN PRN CHEST 01/22/25 Unknown Rx tablet PAIN #25 tabs albuterol sulfate 90 mcg/actuation 2 puff inhalation Q4H PRN 01/28/25 Unknown Rx aerosol inhaler shortness of breath or wheezing #8.5 grams carvedilol 3.125 mg tablet 3.125 mg PO BID #60 TABLETS 02/26/25 Unknown Rx melatonin 5 mg tablet 10 mg (2 x 5 mg) PO QHS #90 tabs 03/25/25 Unknown Rx spironolactone 25 mg tablet 25 mg PO DAILY #90 tabs 03/25/25 Unknown Rx lactulose 10 gram/15 mL oral 30 ml PO DAILY #473 mL 03/31/25 Unknown Rx solution (Enulose) mepolizumab 100 mg/mL subcutaneous 100 mg subcut Q4W #1 mL 04/21/25 Unknown Rx syringe (Nucala) amitriptyline 25 mg tablet 25 mg PO QHS #30 tabs 04/28/25 Unknown Rx apixaban 5 mg tablet (Eliquis) 5 mg PO BID #60 tabs 04/28/25 Unknown Rx omeprazole 40 mg capsule,delayed 40 mg PO BID #120 caps 05/11/25 Unknown Rx release prochlorperazine maleate 5 mg 5 mg PO TID PRN nausea and 05/13/25 Unknown Rx tablet vomiting 30 days #90 tabs cholecalciferol (vitamin D3) 50 50 mcg PO QAM #90 caps 05/22/25 Unknown Rx mcg (2,000 unit) capsule cyanocobalamin (vitamin B-12) 500 500 mcg PO DAILY #90 tabs 05/22/25 Unknown Rx mcg tablet levothyroxine 50 mcg tablet 50 mcg PO DAILY for disorder of 05/22/25 Unknown Rx thyroid gland #90 tabs loratadine 10 mg tablet 10 mg PO QHS for allergies #90 tabs 05/22/25 Unknown Rx montelukast 10 mg tablet 10 mg PO QHS for allergies #90 tabs 05/22/25 Unknown Rx ondansetron HCl 4 mg tablet 4 mg PO Q6H PRN nausea and 05/26/25 Unknown Rx vomiting #30 tabs cyanocobalamin (vitamin B-12) 1,500 mcg IM QMONTH 06/01/25 Unknown History 1,000 mcg/mL injection solution hydrocortisone 1 % topical 1 applic topical BID PRN itching 06/01/25 Unknown Rx ointment (Anti-Itch #28.35 grams (hydrocortisone)) valbenazine 40 mg capsule 40 mg PO QDAY 06/01/25 Unknown History (Ingrezza) tramadol 50 mg tablet 50 mg PO BID PRN pain 06/03/25 Unknown History tiotropium bromide 1.25 2 puff PO DAILY for asthma 06/04/25 Unknown History mcg/actuation mist for inhalation (Spiriva Respimat) Allergy/AdvReac Type Severity Reaction Status Date / Time adhesive tape Allergy Rash Verified 06/07/25 12:51 atropine sulfate (From Allergy Hives Verified 06/07/25 12:51 ) codeine phosphate (From Allergy breathing Verified 06/07/25 12:51 Tylenol-Codeine #3) problems divalproex sodium (From Allergy Unknown Verified 06/07/25 12:51 Depakote) guaifenesin Allergy Itching Verified 06/07/25 12:51 hydrocodone Allergy Itching Verified 06/07/25 12:51 hydromorphone HCl (From Allergy facial Verified 06/07/25 12:51 Dilaudid) blisters,itching hyoscyamine sulfate (From Allergy Hives Verified 06/07/25 12:51 ) latex Allergy Rash Verified 06/07/25 12:51 pantoprazole sodium (From Allergy Rash Verified 06/07/25 12:51 Protonix) phenobarbital (From ) Allergy Hives Verified 06/07/25 12:51 promethazine HCl (From Allergy Anaphylaxis Verified 06/07/25 12:51 Phenergan) ramipril Allergy Unknown Verified 06/07/25 12:51 scopolamine hydrobromide Allergy Hives Verified 06/07/25 12:51 (From ) tramadol Allergy Itching Verified 06/07/25 12:51 ziprasidone mesylate (From Allergy Unknown Verified 06/07/25 12:51 Geodon) amlodipine AdvReac Vomiting Verified 06/07/25 12:51 levofloxacin (From Levaquin) AdvReac Itching Verified 06/07/25 12:51 metoclopramide (From Reglan) AdvReac Other Verified 06/07/25 12:51 Sulfa (Sulfonamide AdvReac Vomiting Verified 06/07/25 12:51 Antibiotics) ziprasidone HCl (From Geodon) AdvReac tremors Verified 06/07/25 12:51 Family History (Reviewed 06/03/25 @ 08:37 by Lillian White CARE MANAGEMENT SPECIALIST, CARE MANAGEMENT SPECIALIST-C) Sister Myocardial infarction Colon cancer Mother Hypertension Arthritis Brain aneurysm Heart disease High cholesterol Sister Colon cancer Heart disease High cholesterol Hypertension Arthritis Grandmother Arthritis Diabetes CVA (cerebral vascular accident) Father Heart disease High cholesterol Hypertension Surgical History History of back surgery (~12/2023) Previous back surgery Cataract extraction status History of esophagogastroduodenoscopy (EGD) Hx of colonoscopy History of laparoscopic cholecystectomy History of uterine suspension procedure S/P carpal tunnel release bladder sling left foot Social History (Reviewed 06/03/25 @ 08:37 by Lillian White CARE MANAGEMENT SPECIALIST, CARE MANAGEMENT SPECIALIST-C) household members: friend(s) number of children: 4 current occupational status: unemployed history of recent travel: No Smoking Status: Former smoker quit date: 11/12/23 Tobacco: How many years used: 26 Electronic Cigarette Use: not used quit status: considering quitting alcohol intake: never substance use type: does not use caffeine: Yes Type: coffee what type of physical activity do you participate in: none seatbelt use: never do you feel safe at home: Yes additional social history: single ROS ROS ED Constitutional Constitutional ED: Denies chills or fever(s) Eyes Eyes: Reports photophobia; Denies diplopia ENT ENT ED: Denies ear pain or sore throat Cardiovascular Cardiovascular: Denies chest pain or palpitations Respiratory/Chest Respiratory/Chest: Denies cough or dyspnea Gastrointestinal Gastrointestinal: Reports nausea and vomiting; Denies abdominal pain or diarrhea Genitourinary Genitourinary ED: Denies dysuria or urinary frequency Musculoskeletal Musculoskeletal: Reports neck pain and other Details: neck stiffness ; Denies back pain or myalgias Integumentary Denies abscess or rash Neurologic Neurologic: Reports headache(s); Denies paresthesias or weakness EXAM Physical Exam Const Vital Signs: 06/07/25 12:49 06/07/25 13:02 Temperature 98.2 F Temperature Source Oral Pulse Rate 103 H Respiratory Rate 16 Respiratory Effort Normal Non-Labored Respiratory Pattern Normal Blood Pressure 131/89 H Blood Pressure Mean 103 Pulse Ox 98 Oxygen Delivery Method Room Air Positive well nourished, well developed and obese General Appearance ED: well developed and NAD Nutritional Appearance: obese HEENT Reports normocephalic and moist mucous membranes atraumatic Eyes PERRL, EOMs intact bilaterally and conjunctivae normal Eyes Narrative: Mild photophobia Neck no lymphadenopathy Neck Narrative: Limited range of motion. Unable to take chin to chest due to pain. When not moving head, neck is nontender no lymphadenopathy. Resp normal respiratory effort and clear to auscultation bilaterally GI non-tender and non-distended Palpation: soft Extremity normal to inspection and full ROM Neuro oriented x3 and CN's II-XII intact bilaterally Sensorium / Orientation: awake and alert Speech: speech normal Gait (Neuro): normal gait Motor Exam: strength 5/5 throughout Psych mental status grossly normal Skin no rashes or lesions noted Lesions: no lesions Rashes: no rashes MDM MDM MDM Narrative Medical decision making narrative: Obtain basic labs, treating the patient empirically for bacterial and viral meningitis. I discussed with the lab. There are no culture results available in the system, and Gram stain was negative with rare PMNs, cell counts were normal. audiovisual technician states that this is preliminary culture results showing Gram variable rods, so they are transferring to culture to thio broth and she expects final results to be available sometime tomorrow. Patient symptoms and exam are consistent with meningitis, so although there is normal glucose, protein, cell count, I think at this time it is most reasonable to treat her empirically for meningitis and admitted to the hospital for further studies, neurology had recommended further studies on the CSF that has already been drawn. She is morbidly obese, I am not confident that we would be able to blindly obtain CSF on this patient without interventional radiology intervention, which is not available today but will be tomorrow. Discussed with hospitalist for admission. History & Record Review Additional record(s) reviewed:: Prior labs (Outpatient CSF noted, paucity of cells, normal glucose, negative Gram stain, culture listed is pending. ) Lab Data Attestation: I reviewed the patient's lab results. Labs: Laboratory Results - last 24 hr 06/07/25 14:33 WBC 5.2 RBC 4.65 Hgb 13.8 Hct 40.8 MCV 87.7 MCH 29.7 MCHC 33.8 RDW Std Deviation 45.9 H RDW Coeff of Yonathan 14.5 Plt Count 184 MPV 10.9 Immature Gran % (Auto) 0.000 Neut % (Auto) 67.9 Lymph % (Auto) 23.5 [place] % (Auto) 8.0 Eos % (Auto) 0.4 Baso % (Auto) 0.2 Absolute Neuts (auto) 3.6 Absolute Lymphs (auto) 1.23 Nucleated RBC % 0 Sodium 138 Potassium 3.7 Chloride 100 Carbon Dioxide 25.7 Anion Gap 12 BUN 12 Creatinine 1.27 H Estim Creat Clear Calc 56.74 Est GFR (MDRD) Non-Af 48 L BUN/Creatinine Ratio 9.1 L Glucose 88 Calcium 9.6 Management Discussion w/another healthcare provider: Hospitalist and Other (Laboratory senior games technician) Discharge Plan Dx/Rx/DC Orders Clinical Impression: Meningitis Disposition Disposition: Acute Care Hospital [facility]
[2025-06-07 14:43] LABS: Hematocrit 40.8 % (37-47); Hemoglobin 13.8 g/dL (12.0-15.0); Immature Granulocytes Count 0.000 X10^3/uL (0.0-0.0); Mean Corp Hgb Conc 33.8 g/dL (32-36); Mean Corpuscular Volume 87.7 fL (81-99); Mean Platelet Vol. 10.9 fl (6.2-12.0); NRBC Flagged by Analyzer 0 % (0-5); Platelet Count 184 K/mm3 (150-450); RBC Distribution Width CV 14.5 % (11.6-14.6); RBC Distribution Width SD 45.9 fl (35.1-43.9); Red Blood Count 4.65 M/mm3 (4.2-5.4); White Blood Count 5.2 K/mm3 (4.4-11.0)
[2025-06-07 15:25] LABS: Anion Gap 12 (5-15); BUN 12 mg/dL (4-19); BUN/Creat Ratio 9.1 RATIO (10-20); Calcium,Total 9.6 mg/dL (7.6-11.0); Carbon Dioxide 25.7 mmol/L (21.0-32.0); Chloride 100 mmol/L (98-108); Estimated Creatinine Clearance 56.74 ml/min (50-250); Glucose 88 mg/dL (70-99); Potassium 3.7 mmol/L (3.3-5.1)
--- NOTE | 2025-06-07 16:03 | PCM.HP.STD ---
HPI - General General Date of Admission: 06/07/25 Date of Service: 06/07/25 Chief Complaint: Abnormal CSF findings HPI Narrative NIGHAT TIMMONS, is a 60 F who presented to [facility] ED on 06/07/2025 for abnormal CSF findings. Medical history significant for class III obesity with DAHPNE, A-fib on Eliquis, COPD/asthma, anxiety/depression/bipolar disorder, chronic neck and low back pain, and chronic positional vertigo. She follows with Dr. Grider with Neurology, last office visit on 05/07. She has had a significant amount of neurologic testing done in the past few years for various issues, see office note for further details. Most recently she had a lumbar puncture done to assess for the possibility of central demyelinating disease to possibly account for gait and balance, memory difficulty and positional vertigo. Lumbar puncture was done on 06/04. CSF was noted to be preliminarily positive for gram-negative rods, so patient was sent to the ED for further evaluation. ED physician discussed with medical laboratory scientist who noted that this is a preliminary culture that is showing Gram variable rods, so they are transferring to a different culture/broth and final results should be available sometime tomorrow. In our system, Gram stain is noted to be negative with rare PMNs. Importantly, CSF is otherwise benign with cell counts all normal. Patient is mildly tachycardic but otherwise afebrile, normotensive and stable on room air at rest. Given concern for possible meningitis, hospitalist was contacted for admission. I saw the patient at bedside in the ED. Patient was laying back in bed and was talking with someone on the phone when I entered the room. She appeared quite comfortable and in no acute distress. She was reporting neck pain and a headache, but noted that she does have neck pain and headaches like this chronically. She denies any fevers or chills. She is alert and oriented x 3 and answering questions appropriately. No other acute concerns currently. Will be admitted for further management. [facility] Medical History On home oxygen therapy Irregular heart beat Atrial fibrillation Myocardial infarct Acute dyspnea Influenza A COVID-19 Altered mental status Stroke-like symptoms Chronic anticoagulation AF (paroxysmal atrial fibrillation) Acute right-sided weakness PONV (postoperative nausea and vomiting) Adult failure to thrive Contusion of hip Back contusion Difficulty in walking Impingement of left shoulder Enchondroma of left humerus History of Holter monitoring Loss of hearing Wears glasses Bipolar disorder History of steroid therapy History of renal disease Restless legs Sleep apnea Chronic cough History of skin cancer Disease of gingiva due to infection COVID-19 virus infection Degenerative tear of meniscus of left knee Osteoarthritis of left knee Cyclic vomiting syndrome Colitis Pain of left calf Kidney disease Sarcoidosis Morbid obesity Debility Myositis Stroke/cerebrovascular accident TIA (transient ischemic attack) History of atrial fibrillation Chest pain Diarrhea Bilateral flank pain Dysuria Oral candidiasis Abdominal pain Bilateral foot pain Venous insufficiency of both lower extremities History of abnormal cervical Pap smear Wears dentures Post-menopausal Cancer Marijuana use Open wound Thyroid disease Walker as ambulation aid Arthritis Bladder disease High cholesterol Easy bruising Excessive bleeding Back pain Injury of head and neck Blackout Syncope Seizures Dietary restriction Difficulty chewing History of hiatal hernia History of ulceration History of IBS Gastric reflux Smoker CPAP (continuous positive airway pressure) dependence Shortness of breath on exertion Leg cramps History of edema History of echocardiogram Hx of tilt table evaluation History of stress test Cardiology follow-up encounter History of CHF (congestive heart failure) Family history of colon cancer Allergic rhinitis Osteoarthritis of right hip Nonrheumatic aortic (valve) insufficiency Non-rheumatic mitral regurgitation Intertriginous dermatitis associated with moisture Psychosis Orthostatic hypotension Osteoarthritis DAPHNE (obstructive sleep apnea) Schizo NEC, chrn/exacerb Peripheral artery disease Pulmonary embolism Stroke Hypothyroidism HTN (hypertension) PAF (paroxysmal atrial fibrillation) Hypokalemia Hyponatremia Arthralgia of right hip Hip dislocation, right Enlarged aorta CKD (chronic kidney disease) Bipolar 1 disorder Cyst Non-convulsive status epilepticus Migraines Asthma Aortic valve insufficiency Hypertensive crisis without congestive heart failure Left arm swelling Conversion disorder with abnormal movement Gastritis Convulsion, non-epileptic Schizophrenia Depression Home Medications ?Medication ?Instructions ?Recorded ?Last Taken ?Type acetaminophen 325 mg capsule 325 mg PO Q4H PRN pain 01/04/24 03/24/24 History aripiprazole 15 mg tablet 15 mg PO DAILY bipolar 01/11/24 11/07/24 History trazodone 100 mg tablet 100 mg PO QHS sleep 01/11/24 11/06/24 History budesonide-formoterol HFA 160 2 inh inhalation DAILY asthma #3 ea 03/31/24 11/07/24 Rx mcg-4.5 mcg/actuation aerosol inhaler (Symbicort) polyethylene glycol 3350 17 17 g PO QDAY PRN constipation #850 05/14/24 Unknown Rx gram/dose oral powder grams hydroxyzine pamoate 100 mg capsule 100 mg PO QHS 05/21/24 11/06/24 History losartan 25 mg tablet 25 mg PO QDAY #90 tabs 08/27/24 11/07/24 Rx baclofen 5 mg tablet 5 mg PO 3XD 11/07/24 11/07/24 History cyclosporine 0.05 % eye drops in a 1 drp ophthalmic (eye) Q12H 11/07/24 Unknown History dropperette (Restasis) lidocaine 5 % topical patch 3 patch topical Q24H pain #30 ea 11/17/24 Unknown Rx furosemide 40 mg tablet 40 mg PO DAILY #30 tabs 01/09/25 Unknown Rx nitroglycerin 0.4 mg sublingual 0.4 mg sublingual PRN PRN CHEST 01/22/25 Unknown Rx tablet PAIN #25 tabs albuterol sulfate 90 mcg/actuation 2 puff inhalation Q4H PRN 01/28/25 Unknown Rx aerosol inhaler shortness of breath or wheezing #8.5 grams carvedilol 3.125 mg tablet 3.125 mg PO BID #60 TABLETS 02/26/25 Unknown Rx melatonin 5 mg tablet 10 mg (2 x 5 mg) PO QHS #90 tabs 03/25/25 Unknown Rx spironolactone 25 mg tablet 25 mg PO DAILY #90 tabs 03/25/25 Unknown Rx lactulose 10 gram/15 mL oral 30 ml PO DAILY #473 mL 03/31/25 Unknown Rx solution (Enulose) mepolizumab 100 mg/mL subcutaneous 100 mg subcut Q4W #1 mL 04/21/25 Unknown Rx syringe (Nucala) amitriptyline 25 mg tablet 25 mg PO QHS #30 tabs 04/28/25 Unknown Rx apixaban 5 mg tablet (Eliquis) 5 mg PO BID #60 tabs 04/28/25 Unknown Rx omeprazole 40 mg capsule,delayed 40 mg PO BID #120 caps 05/11/25 Unknown Rx release prochlorperazine maleate 5 mg 5 mg PO TID PRN nausea and 05/13/25 Unknown Rx tablet vomiting 30 days #90 tabs cholecalciferol (vitamin D3) 50 50 mcg PO QAM #90 caps 05/22/25 Unknown Rx mcg (2,000 unit) capsule cyanocobalamin (vitamin B-12) 500 500 mcg PO DAILY #90 tabs 05/22/25 Unknown Rx mcg tablet levothyroxine 50 mcg tablet 50 mcg PO DAILY for disorder of 05/22/25 Unknown Rx thyroid gland #90 tabs loratadine 10 mg tablet 10 mg PO QHS for allergies #90 tabs 05/22/25 Unknown Rx montelukast 10 mg tablet 10 mg PO QHS for allergies #90 tabs 05/22/25 Unknown Rx ondansetron HCl 4 mg tablet 4 mg PO Q6H PRN nausea and 05/26/25 Unknown Rx vomiting #30 tabs cyanocobalamin (vitamin B-12) 1,500 mcg IM QMONTH 06/01/25 Unknown History 1,000 mcg/mL injection solution hydrocortisone 1 % topical 1 applic topical BID PRN itching 06/01/25 Unknown Rx ointment (Anti-Itch #28.35 grams (hydrocortisone)) valbenazine 40 mg capsule 40 mg PO QDAY 06/01/25 Unknown History (Ingrezza) tramadol 50 mg tablet 50 mg PO BID PRN pain 06/03/25 Unknown History tiotropium bromide 1.25 2 puff PO DAILY for asthma 06/04/25 Unknown History mcg/actuation mist for inhalation (Spiriva Respimat) Allergy/AdvReac Type Severity Reaction Status Date / Time adhesive tape Allergy Rash Verified 06/07/25 12:51 atropine sulfate (From Allergy Hives Verified 06/07/25 12:51 ) codeine phosphate (From Allergy breathing Verified 06/07/25 12:51 Tylenol-Codeine #3) problems divalproex sodium (From Allergy Unknown Verified 06/07/25 12:51 Depakote) guaifenesin Allergy Itching Verified 06/07/25 12:51 hydrocodone Allergy Itching Verified 06/07/25 12:51 hydromorphone HCl (From Allergy facial Verified 06/07/25 12:51 Dilaudid) blisters,itching hyoscyamine sulfate (From Allergy Hives Verified 06/07/25 12:51 ) latex Allergy Rash Verified 06/07/25 12:51 pantoprazole sodium (From Allergy Rash Verified 06/07/25 12:51 Protonix) phenobarbital (From ) Allergy Hives Verified 06/07/25 12:51 promethazine HCl (From Allergy Anaphylaxis Verified 06/07/25 12:51 Phenergan) ramipril Allergy Unknown Verified 06/07/25 12:51 scopolamine hydrobromide Allergy Hives Verified 06/07/25 12:51 (From ) tramadol Allergy Itching Verified 06/07/25 12:51 ziprasidone mesylate (From Allergy Unknown Verified 06/07/25 12:51 Geodon) amlodipine AdvReac Vomiting Verified 06/07/25 12:51 levofloxacin (From Levaquin) AdvReac Itching Verified 06/07/25 12:51 metoclopramide (From Reglan) AdvReac Other Verified 06/07/25 12:51 Sulfa (Sulfonamide AdvReac Vomiting Verified 06/07/25 12:51 Antibiotics) ziprasidone HCl (From Geodon) AdvReac tremors Verified 06/07/25 12:51 Family History Sister Myocardial infarction Colon cancer Mother Hypertension Arthritis Brain aneurysm Heart disease High cholesterol Sister Colon cancer Heart disease High cholesterol Hypertension Arthritis Grandmother Arthritis Diabetes CVA (cerebral vascular accident) Father Heart disease High cholesterol Hypertension Surgical History History of back surgery (~12/2023) Previous back surgery Cataract extraction status History of esophagogastroduodenoscopy (EGD) Hx of colonoscopy History of laparoscopic cholecystectomy History of uterine suspension procedure S/P carpal tunnel release bladder sling left foot Social History household members: friend(s) number of children: 4 current occupational status: unemployed history of recent travel: No Smoking Status: Former smoker quit date: 11/12/23 Tobacco: How many years used: 26 Electronic Cigarette Use: not used quit status: considering quitting alcohol intake: never substance use type: does not use caffeine: Yes Type: coffee what type of physical activity do you participate in: none seatbelt use: never do you feel safe at home: Yes additional social history: single ROS Constitutional Constitutional: Denies chills, fatigue, fever(s) or weakness Eyes Eyes: Denies change in vision ENT HEENT: Reports headache(s); Denies hearing loss Cardiovascular Cardiovascular: Denies chest pain Respiratory/Chest Respiratory/Chest: Denies shortness of breath at rest Gastrointestinal Gastrointestinal: Denies abdominal pain, nausea or vomiting Genitourinary Genitourinary: Denies dysuria Musculoskeletal Musculoskeletal: Reports back pain and neck pain; Denies arthralgias or myalgias Neurologic Neurologic: Reports headache(s); Denies confusion, disequilibrium, dizziness, focal weakness, numbness or tingling Vital Signs Vital Signs Vital Signs: 06/07/25 12:49 06/07/25 13:02 Temperature 98.2 F Temperature Source Oral Pulse Rate 103 H Respiratory Rate 16 Respiratory Effort Normal Non-Labored Respiratory Pattern Normal Blood Pressure 131/89 H Blood Pressure Mean 103 Pulse Ox 98 Oxygen Delivery Method Room Air Weight Weight: 114.577 kg Body Mass Index (BMI) 44.7 Physical Exam Const alert, oriented x3 and no apparent distress Constitutional Narrative: Upper middle-aged female, class III obesity, mildly fatigued appearing but otherwise laying back comfortably in bed, answering questions appropriately, in no acute distress. General Appearance: cooperative and comfortable HEENT normocephalic, head/scalp atraumatic, hearing grossly normal bilaterally, nasal mucous membranes and turbinates normal and moist oral mucous membranes Eyes PERRL, EOMs intact bilaterally and conjunctivae normal Neck full ROM Chest inspection of chest normal Resp normal respiratory effort, normal air movement, no use of accessory muscles and clear to auscultation bilaterally Cardio no murmurs and peripheral pulses 2+ throughout Cardio Narrative: Tachycardic, regular rhythm. GI normal to inspection, nondistended, normoactive bowel sounds, soft to palpation, non-tender and non-distended Back/Spine normal ROM Back/Spine Narrative: Mild tenderness to palpation in paramuscular cervical spine area. No point tenderness noted. Decreased cervical range of motion but suspect this is more chronic than acute. Extremity normal to inspection and no pedal edema Skin no rashes or lesions noted Neuro oriented x3, moves all extremities and no focal motor deficits Speech: speech normal Motor Exam: strength 5/5 throughout Psych mental status grossly normal Results Lab / Micro Data 06/07/25 14:33 06/07/25 14:33 Labs: Laboratory Results - last 24 hr 06/07/25 14:33: WBC 5.2, RBC 4.65, Hgb 13.8, Hct 40.8, MCV 87.7, MCH 29.7, MCHC 33.8, RDW Std Deviation 45.9 H, RDW Coeff of Yonathan 14.5, Plt Count 184, MPV 10.9, Immature Gran % (Auto) 0.000, Neut % (Auto) 67.9, Lymph % (Auto) 23.5, Doddridge % (Auto) 8.0, Eos % (Auto) 0.4, Baso % (Auto) 0.2, Absolute Neuts (auto) 3.6, Absolute Lymphs (auto) 1.23, Nucleated RBC % 0, Sodium 138, Potassium 3.7, Chloride 100, Carbon Dioxide 25.7, Anion Gap 12, BUN 12, Creatinine 1.27 H, Estim Creat Clear Calc 56.74, Est GFR (MDRD) Non-Af 48 L, BUN/Creatinine Ratio 9.1 L, Glucose 88, Calcium 9.6 Assessment & Plan Assessment/Plan (1) Abnormal finding in CSF: PLAN: Plan Patient is a 60-year-old female who presented to [facility] ED on 06/07/2025 with abnormal CSF findings. 1. Abnormal CSF findings with concern for meningitis ? Admit under observation status to PCU. Neurology consulted. Follows with Dr. Grider and had LP done on 06/04 for further evaluation of her chronic gait and balance, positional vertigo and memory issues as below. Per lab, preliminary culture is positive for Gram variable rods. Final cultures will result on 06/08. CSF otherwise benign, cell counts all normal. Patient afebrile, hemodynamically stable and no leukocytosis noted. She clinically reports neck stiffness and headache but these are chronic issues for her. Given her benign presentation, suspect this CSF finding may be a contaminant but will defer to neurology. Will empirically treat with IV ceftriaxone for now. 2. Chronic gait imbalance and positional vertigo, mild cognitive impairment, chronic neck and low back pain with history of L4-5 laminectomy ? Follows with Dr. Grider, last office visit on 05/07. See office note for further details. In short, patient has had significant workup over the past few years for multiple neurologic concerns including chronic neck and back pain, gait imbalance and positional vertigo, and now memory issues. Recent L-spine MRI on 05/29 showed L4-5 normal postsurgical changes and moderate canal stenosis at adjacent L3-4, no other concerning findings. It appears that additional workup including MRIs and EEG have all been fairly benign as well. Neurology consulted as above but suspect no inpatient needs for these things, continue close outpatient follow-up. Continue home baclofen and tramadol twice daily as needed. 3. Paroxysmal A-fib on Eliquis ? In normal sinus rhythm on admit. Will anticoagulate with heparin drip for now in case of need for repeat lumbar puncture. 4. Mood disorder ? Stable. Continue home aripiprazole, valbenazine, trazodone at night and amitriptyline at night. Chronic medical conditions: ? Class III obesity with DAPHNE, COPD/asthma overlap syndrome: Follows with [facility] pulmonology, last office visit on 06/03. Stable on room air at rest on admit, not in acute exacerbation. Continue home triple therapy with Symbicort and Spiriva. Resume monthly Nucala injections on discharge. BMI 44 on admit, complicates hospital course and care. Patient is not compliant with PAP therapy and utilizes supplemental oxygen with sleep, can continue this while inpatient. ? Hypertension: Normotensive on admit. Will continue home beta-karen but given concern for meningitis as above, will hold home Lasix, losartan and spironolactone for now, resume when able. ? Hypothyroidism: Continue home Synthroid. ? GERD: Continue home PPI. DVT prophylaxis: Not indicated, on heparin drip CODE STATUS: Full code, verified Expected disposition: Home, TBD Total clinical time spent by myself addressing the patient's medical issues, reviewing all the data, and collaborating with patient's care team: 75 minutes. Charges/Coding Visit Charges Inpatient E&M: 23697 Init Hosp L3
[2025-06-07] MEDS: Ceftriaxone 2 GM in 0.9% Normal Saline (50mL MB+) 50 ML IV (16:25)
[2025-06-07 16:55] VITALS: BP 145/75; PULSE 81; RESP 16; TEMP 36.8; O2SAT 97
[2025-06-07] MEDS: Acyclovir 525 MG in Dextrose 5%-Water (250mL Bag) 250 ML 260.5 MG IV (17:36)
[2025-06-07 17:40] LABS: Prothrombin Time (Protime)PT. 14.4 SECONDS (11.7-14.9)
[2025-06-07 17:41] LABS: Partial Thromboplast Time 27.7 Seconds (24.1-36.2)
[2025-06-07 17:43] VITALS: BMI 44.4
[2025-06-07 17:52] VITALS: BP 136/54; PULSE 58; RESP 18; TEMP 36.6; O2SAT 96
[2025-06-07] MEDS: HEPARIN/D5w 25,000 UNITS 25,000 UNITS/250 ML IV.SOLN. 17.2 UNITS CONT INF (18:11)
[2025-06-07] MEDS: Vancomycin HCl 1,750 MG in 0.9% Normal Saline (500mL Bag) 500 ML 250 MG IV (18:23)
[2025-06-07] MEDS: Budesonide Respules 0.5 MG/2 ML AMPUL.NEB. INHALATION (19:43)
[2025-06-07 19:44] VITALS: PULSE 58; RESP 16; O2SAT 93
[2025-06-07 21:00] VITALS: BP 143/50; PULSE 59; RESP 17; TEMP 36.6; O2SAT 91
[2025-06-07] MEDS: MELATONIN 10 MG TABLET PO (21:01)
[2025-06-07] MEDS: CLARIFY ORDER NOTE (21:01)
[2025-06-08] VITALS (11 sets, daily range): BP systolic 118–142; BP diastolic 49–68; PULSE 50–80; RESP 12–20; TEMP 36.2–36.7; O2SAT 92–99
[2025-06-08 01:04] LABS: Partial Thromboplast Time > 200.0 Seconds (24.1-36.2)
[2025-06-08 05:58] LABS: Hematocrit 38.8 % (37-47); Hemoglobin 13.6 g/dL (12.0-15.0); Mean Corp Hgb Conc 35.1 g/dL (32-36); Mean Corpuscular Volume 86.0 fL (81-99); Mean Platelet Vol. 11.2 fl (6.2-12.0); Platelet Count 182 K/mm3 (150-450); RBC Distribution Width CV 13.7 % (11.6-14.6); RBC Distribution Width SD 43.8 fl (35.1-43.9); Red Blood Count 4.51 M/mm3 (4.2-5.4); White Blood Count 4.4 K/mm3 (4.4-11.0)
[2025-06-08 06:14] LABS: Anion Gap 13 (5-15); BUN 11 mg/dL (4-19); BUN/Creat Ratio 9.6 RATIO (10-20); Calcium,Total 9.1 mg/dL (7.6-11.0); Carbon Dioxide 21.1 mmol/L (21.0-32.0); Chloride 100 mmol/L (98-108); Estimated Creatinine Clearance 65.21 ml/min (50-250); Glucose 185 mg/dL (70-99); Potassium 4.0 mmol/L (3.3-5.1)
[2025-06-08] MEDS: Budesonide Respules 0.5 MG/2 ML AMPUL.NEB. INHALATION ×2 (07:46→19:27)
[2025-06-08] MEDS: Cholecalciferol (VIT D3) 25 MCG TABLET (1,000 UNITS) 50 MCG PO (08:15)
[2025-06-08] MEDS: Ceftriaxone 2 GM in 0.9% Normal Saline (50mL MB+) 50 ML IV (08:21)
[2025-06-08 09:44] LABS: Partial Thromboplast Time 162.2 Seconds (24.1-36.2)
--- NOTE | 2025-06-08 10:43 | NEURO.CONS ---
Assessment and Plan: Neuro Assessment/Plan NIGHAT TIMMONS, is a 60 yo woman who presented to [facility] ED on 06/07/2025 for reported abnormal CSF findings. She follows with outpatient neurology Dr. Grider for chronic constellation of multiple symptoms including vertigo, unsteady gait etc her workup up has been largely negative, her MRI did show subcortical white matter changes thought to be microvascular in nature, but an LP was pursued to rule out other etiologies. She underwent LP on 06/04 with initial profile benign Protein 26, glucose 60, no pleocytosis. Pending further labs. CSF was noted to be preliminarily positive for gram-negative rods, so patient was sent to the ED for further evaluation. ED physician discussed with cath lab radiology technician who noted that this is a preliminary culture that is showing Gram variable rods, so they are transferring to a different culture/broth and final results should be available soon. In our system, Gram stain is noted to be negative with rare PMNs. Her exam is reassuring. I am unsure how to interpret these culture into context and whether it is a contaminant or lab error ec. Recommend obtaining ID input in that regard. I personally attended this patient and spent a total time of minutes evaluating this patient including clinical assessment, review of chart, medical history imaging, and determining appropriate treatment and workup. HPI Consult Data Date of Consult: 06/08/25 HPI Narrative HPI Narrative: NIGHAT TIMMONS, is a 60 yo woman who presented to [facility] ED on 06/07/2025 for reported abnormal CSF findings. Medical history significant for class III obesity with DAPHNE, A-fib on Eliquis, COPD/asthma, anxiety/depression/bipolar disorder, chronic neck and low back pain, and chronic positional vertigo. She follows with outpatient neurology Dr. Grider for chronic constellation of multiple symptoms including vertigo, unsteady gait etc her workup up has been largely negative, her MRI did show subcortical white matter changes thought to be microvascular in nature, but an LP was pursued to rule out other etiologies. She underwent LP on 06/04 with initial profile benign Protein 26, glucose 60, no pleocytosis. Pending further labs. CSF was noted to be preliminarily positive for gram-negative rods, so patient was sent to the ED for further evaluation. ED physician discussed with cath lab radiology technician who noted that this is a preliminary culture that is showing Gram variable rods, so they are transferring to a different culture/broth and final results should be available soon. In our system, Gram stain is noted to be negative with rare PMNs. Physical Exam: Exam performed with help of the nurse/CHARLEY present with patient on Tele site NEURO: AAOx3, follows commands, no aphasia/dysarthria. PERRL, EOMI, no gaze preference/nystagmus. Face symmetric, Intact facial sensation. Tongue midline. Head turning intact. Motor: All extremities antigravity Coordination: FTN intact bilaterally [facility] Medical History On home oxygen therapy Irregular heart beat Atrial fibrillation Myocardial infarct Acute dyspnea Influenza A COVID-19 Altered mental status Stroke-like symptoms Chronic anticoagulation AF (paroxysmal atrial fibrillation) Acute right-sided weakness PONV (postoperative nausea and vomiting) Adult failure to thrive Contusion of hip Back contusion Difficulty in walking Impingement of left shoulder Enchondroma of left humerus History of Holter monitoring Loss of hearing Wears glasses Bipolar disorder History of steroid therapy History of renal disease Restless legs Sleep apnea Chronic cough History of skin cancer Disease of gingiva due to infection COVID-19 virus infection Degenerative tear of meniscus of left knee Osteoarthritis of left knee Cyclic vomiting syndrome Colitis Pain of left calf Kidney disease Sarcoidosis Morbid obesity Debility Myositis Stroke/cerebrovascular accident TIA (transient ischemic attack) History of atrial fibrillation Chest pain Diarrhea Bilateral flank pain Dysuria Oral candidiasis Abdominal pain Bilateral foot pain Venous insufficiency of both lower extremities History of abnormal cervical Pap smear Wears dentures Post-menopausal Cancer Marijuana use Open wound Thyroid disease Walker as ambulation aid Arthritis Bladder disease High cholesterol Easy bruising Excessive bleeding Back pain Injury of head and neck Blackout Syncope Seizures Dietary restriction Difficulty chewing History of hiatal hernia History of ulceration History of IBS Gastric reflux Smoker CPAP (continuous positive airway pressure) dependence Shortness of breath on exertion Leg cramps History of edema History of echocardiogram Hx of tilt table evaluation History of stress test Cardiology follow-up encounter History of CHF (congestive heart failure) Family history of colon cancer Allergic rhinitis Osteoarthritis of right hip Nonrheumatic aortic (valve) insufficiency Non-rheumatic mitral regurgitation Intertriginous dermatitis associated with moisture Psychosis Orthostatic hypotension Osteoarthritis DAPHNE (obstructive sleep apnea) Schizo NEC, chrn/exacerb Peripheral artery disease Pulmonary embolism Stroke Hypothyroidism HTN (hypertension) PAF (paroxysmal atrial fibrillation) Hypokalemia Hyponatremia Arthralgia of right hip Hip dislocation, right Enlarged aorta CKD (chronic kidney disease) Bipolar 1 disorder Cyst Non-convulsive status epilepticus Migraines Asthma Aortic valve insufficiency Hypertensive crisis without congestive heart failure Left arm swelling Conversion disorder with abnormal movement Gastritis Convulsion, non-epileptic Schizophrenia Depression Home Medications ?Medication ?Instructions ?Recorded ?Last Taken ?Type acetaminophen 325 mg capsule 325 mg PO Q4H PRN pain 01/04/24 03/24/24 History aripiprazole 15 mg tablet 15 mg PO DAILY bipolar 01/11/24 11/07/24 History trazodone 100 mg tablet 100 mg PO QHS sleep 01/11/24 11/06/24 History budesonide-formoterol HFA 160 2 inh inhalation DAILY asthma #3 ea 03/31/24 11/07/24 Rx mcg-4.5 mcg/actuation aerosol inhaler (Symbicort) polyethylene glycol 3350 17 17 g PO QDAY PRN constipation #850 05/14/24 Unknown Rx gram/dose oral powder grams hydroxyzine pamoate 100 mg capsule 100 mg PO QHS 05/21/24 11/06/24 History losartan 25 mg tablet 25 mg PO QDAY #90 tabs 08/27/24 11/07/24 Rx baclofen 5 mg tablet 5 mg PO 3XD 11/07/24 11/07/24 History cyclosporine 0.05 % eye drops in a 1 drp ophthalmic (eye) Q12H 11/07/24 Unknown History dropperette (Restasis) lidocaine 5 % topical patch 3 patch topical Q24H pain #30 ea 11/17/24 Unknown Rx furosemide 40 mg tablet 40 mg PO DAILY #30 tabs 01/09/25 Unknown Rx nitroglycerin 0.4 mg sublingual 0.4 mg sublingual PRN PRN CHEST 01/22/25 Unknown Rx tablet PAIN #25 tabs albuterol sulfate 90 mcg/actuation 2 puff inhalation Q4H PRN 01/28/25 Unknown Rx aerosol inhaler shortness of breath or wheezing #8.5 grams carvedilol 3.125 mg tablet 3.125 mg PO BID #60 TABLETS 02/26/25 Unknown Rx melatonin 5 mg tablet 10 mg (2 x 5 mg) PO QHS #90 tabs 03/25/25 Unknown Rx spironolactone 25 mg tablet 25 mg PO DAILY #90 tabs 03/25/25 Unknown Rx lactulose 10 gram/15 mL oral 30 ml PO DAILY #473 mL 03/31/25 Unknown Rx solution (Enulose) mepolizumab 100 mg/mL subcutaneous 100 mg subcut Q4W #1 mL 04/21/25 Unknown Rx syringe (Nucala) amitriptyline 25 mg tablet 25 mg PO QHS #30 tabs 04/28/25 Unknown Rx apixaban 5 mg tablet (Eliquis) 5 mg PO BID #60 tabs 04/28/25 Unknown Rx omeprazole 40 mg capsule,delayed 40 mg PO BID #120 caps 05/11/25 Unknown Rx release prochlorperazine maleate 5 mg 5 mg PO TID PRN nausea and 05/13/25 Unknown Rx tablet vomiting 30 days #90 tabs cholecalciferol (vitamin D3) 50 50 mcg PO QAM #90 caps 05/22/25 Unknown Rx mcg (2,000 unit) capsule cyanocobalamin (vitamin B-12) 500 500 mcg PO DAILY #90 tabs 05/22/25 Unknown Rx mcg tablet levothyroxine 50 mcg tablet 50 mcg PO DAILY for disorder of 05/22/25 Unknown Rx thyroid gland #90 tabs loratadine 10 mg tablet 10 mg PO QHS for allergies #90 tabs 05/22/25 Unknown Rx montelukast 10 mg tablet 10 mg PO QHS for allergies #90 tabs 05/22/25 Unknown Rx ondansetron HCl 4 mg tablet 4 mg PO Q6H PRN nausea and 05/26/25 Unknown Rx vomiting #30 tabs cyanocobalamin (vitamin B-12) 1,500 mcg IM QMONTH 06/01/25 Unknown History 1,000 mcg/mL injection solution hydrocortisone 1 % topical 1 applic topical BID PRN itching 06/01/25 Unknown Rx ointment (Anti-Itch #28.35 grams (hydrocortisone)) valbenazine 40 mg capsule 40 mg PO QDAY 06/01/25 Unknown History (Ingrezza) tramadol 50 mg tablet 50 mg PO BID PRN pain 06/03/25 Unknown History tiotropium bromide 1.25 2 puff PO DAILY for asthma 06/04/25 Unknown History mcg/actuation mist for inhalation (Spiriva Respimat) Allergy/AdvReac Type Severity Reaction Status Date / Time adhesive tape Allergy Rash Verified 06/07/25 12:51 atropine sulfate (From Allergy Hives Verified 06/07/25 12:51 ) codeine phosphate (From Allergy breathing Verified 06/07/25 12:51 Tylenol-Codeine #3) problems divalproex sodium (From Allergy Unknown Verified 06/07/25 12:51 Depakote) guaifenesin Allergy Itching Verified 06/07/25 12:51 hydrocodone Allergy Itching Verified 06/07/25 12:51 hydromorphone HCl (From Allergy facial Verified 06/07/25 12:51 Dilaudid) blisters,itching hyoscyamine sulfate (From Allergy Hives Verified 06/07/25 12:51 ) latex Allergy Rash Verified 06/07/25 12:51 pantoprazole sodium (From Allergy Rash Verified 06/07/25 12:51 Protonix) phenobarbital (From ) Allergy Hives Verified 06/07/25 12:51 promethazine HCl (From Allergy Anaphylaxis Verified 06/07/25 12:51 Phenergan) ramipril Allergy Unknown Verified 06/07/25 12:51 scopolamine hydrobromide Allergy Hives Verified 06/07/25 12:51 (From ) tramadol Allergy Itching Verified 06/07/25 12:51 ziprasidone mesylate (From Allergy Unknown Verified 06/07/25 12:51 Geodon) amlodipine AdvReac Vomiting Verified 06/07/25 12:51 levofloxacin (From Levaquin) AdvReac Itching Verified 06/07/25 12:51 metoclopramide (From Reglan) AdvReac Other Verified 06/07/25 12:51 Sulfa (Sulfonamide AdvReac Vomiting Verified 06/07/25 12:51 Antibiotics) ziprasidone HCl (From Geodon) AdvReac tremors Verified 06/07/25 12:51 Family History Sister Myocardial infarction Colon cancer Mother Hypertension Arthritis Brain aneurysm Heart disease High cholesterol Sister Colon cancer Heart disease High cholesterol Hypertension Arthritis Grandmother Arthritis Diabetes CVA (cerebral vascular accident) Father Heart disease High cholesterol Hypertension Surgical History History of back surgery (~12/2023) Previous back surgery Cataract extraction status History of esophagogastroduodenoscopy (EGD) Hx of colonoscopy History of laparoscopic cholecystectomy History of uterine suspension procedure S/P carpal tunnel release bladder sling left foot Social History household members: friend(s) number of children: 4 current occupational status: unemployed history of recent travel: No Smoking Status: Former smoker quit date: 11/12/23 Tobacco: How many years used: 26 Electronic Cigarette Use: not used quit status: considering quitting alcohol intake: never substance use type: does not use caffeine: Yes Type: coffee what type of physical activity do you participate in: none seatbelt use: never do you feel safe at home: Yes additional social history: single Vital Signs Vital Signs Vital Signs: 06/07/25 12:49 06/07/25 13:02 06/07/25 16:55 Temperature 98.2 F 98.3 F Temperature Source Oral Pulse Rate 103 H 81 Respiratory Rate 16 16 Respiratory Effort Normal Non-Labored Respiratory Depth Respiratory Pattern Normal Blood Pressure 131/89 H 145/75 H Blood Pressure Mean 103 98 Blood Pressure Source Blood Pressure Position Blood Pressure Location Pulse Ox 98 97 Oxygen Delivery Method Room Air Oxygen Flow Rate (L/min) 06/07/25 17:49 06/07/25 17:52 06/07/25 19:44 Temperature 97.8 F Temperature Source Temporal Pulse Rate 58 L 58 L Respiratory Rate 18 16 Respiratory Effort Normal Non-Labored Respiratory Depth Normal Respiratory Pattern Normal Blood Pressure 136/54 H Blood Pressure Mean 81 Blood Pressure Source Blood Pressure Position Blood Pressure Location Pulse Ox 96 Oxygen Delivery Method Room Air Room Air Oxygen Flow Rate (L/min) 06/07/25 19:44 06/07/25 21:00 06/07/25 22:00 Temperature 98 F Temperature Source Oral Pulse Rate 59 L Respiratory Rate 17 Respiratory Effort Normal Non-Labored Respiratory Depth Normal Respiratory Pattern Normal Blood Pressure 143/50 H Blood Pressure Mean 81 Blood Pressure Source Blood Pressure Position Blood Pressure Location Pulse Ox 93 91 Oxygen Delivery Method Room Air Room Air Room Air Oxygen Flow Rate (L/min) 06/08/25 03:10 06/08/25 04:17 06/08/25 07:46 Temperature 98 F Temperature Source Oral Pulse Rate 50 L 62 Respiratory Rate 14 12 Respiratory Effort Normal Non-Labored Respiratory Depth Normal Respiratory Pattern Normal Normal Blood Pressure 137/59 H Blood Pressure Mean 85 Blood Pressure Source Blood Pressure Position Blood Pressure Location Pulse Ox 97 Oxygen Delivery Method Room Air Nasal Cannula Oxygen Flow Rate (L/min) 2 06/08/25 07:46 06/08/25 07:58 Temperature 97.1 F L Temperature Source Temporal Pulse Rate 62 Respiratory Rate 16 Respiratory Effort Respiratory Depth Respiratory Pattern Blood Pressure 142/68 H Blood Pressure Mean 92 Blood Pressure Source Monitor Blood Pressure Position Sitting Blood Pressure Location Left Forearm Pulse Ox 92 95 Oxygen Delivery Method Nasal Cannula Room Air Oxygen Flow Rate (L/min) 2 Weight Weight: 113.67 kg Body Mass Index (BMI) 44.4 EEG Results Procedure Details EEG Procedure Details: NIGHAT TIMMONS is a 60 year old F with a past medical history of , who presents for evaluation of Electroencephalogram on DATE at TIME Lab / Micro Data 06/08/25 05:35 06/08/25 05:35 Labs: Laboratory Results - last 24 hr 06/07/25 14:33: WBC 5.2, RBC 4.65, Hgb 13.8, Hct 40.8, MCV 87.7, MCH 29.7, MCHC 33.8, RDW Std Deviation 45.9 H, RDW Coeff of Yonathan 14.5, Plt Count 184, MPV 10.9, Immature Gran % (Auto) 0.000, Neut % (Auto) 67.9, Lymph % (Auto) 23.5, Lyon % (Auto) 8.0, Eos % (Auto) 0.4, Baso % (Auto) 0.2, Absolute Neuts (auto) 3.6, Absolute Lymphs (auto) 1.23, Nucleated RBC % 0, Sodium 138, Potassium 3.7, Chloride 100, Carbon Dioxide 25.7, Anion Gap 12, BUN 12, Creatinine 1.27 H, Estim Creat Clear Calc 56.74, Est GFR (MDRD) Non-Af 48 L, BUN/Creatinine Ratio 9.1 L, Glucose 88, Calcium 9.6 06/07/25 17:07: PT 14.4, INR 1.1, APTT 27.7 06/08/25 00:02: APTT > 200.0 H* 06/08/25 05:35: WBC 4.4, RBC 4.51, Hgb 13.6, Hct 38.8, MCV 86.0, MCH 30.2, MCHC 35.1, RDW Std Deviation 43.8, RDW Coeff of Yonathan 13.7, Plt Count 182, MPV 11.2, Sodium 134, Potassium 4.0, Chloride 100, Carbon Dioxide 21.1, Anion Gap 13, BUN 11, Creatinine 1.10, Estim Creat Clear Calc 65.21, Est GFR (MDRD) Non-Af 57 L, BUN/Creatinine Ratio 9.6 L, Glucose 185 H, Calcium 9.1 06/08/25 09:15: APTT 162.2 H* Active Medications Active Medications Active Medications: Current Medications Generic Name Dose Route Start Last Admin Trade Name Freq PRN Reason Stop Dose Admin Acetaminophen 650 mg 06/07/25 17:20 06/08/25 09:08 Acetaminophen 325 Mg Tablet PO 650 mg Q6H PRN PRN Administration Pain 1-10 Or Fever>100.7 Albuterol Sulfate 2.5 mg 06/07/25 17:29 Albuterol 2.5 Mg/3 Ml Vial.Neb. INHALATION Q4H PRN shortness of breath or wheezing Albuterol/Ipratropium 3 ml 06/07/25 17:45 06/08/25 07:46 Ipratropium/Albuterol Sulfate 3 Ml Ampul.Neb INHALATION 3 ml Q6HWA.RT IRVING Administration Amitriptyline HCl 25 mg 06/07/25 22:00 06/07/25 21:01 Amitriptyline 25 Mg Tablet PO 25 mg QHS IRVING Administration Aripiprazole 15 mg 06/08/25 10:00 06/08/25 08:16 Aripiprazole 10 Mg Tablet PO 15 mg DAILY IRIVNG Administration Baclofen 5 mg 06/07/25 22:00 06/08/25 06:12 Baclofen 10 Mg Tablet PO 5 mg TID IRVING Administration Budesonide 0.5 mg 06/07/25 18:00 06/08/25 07:46 Budesonide Respules 0.5 Mg/2 Ml Ampul.Neb. INHALATION 0.5 mg Q12H.RT IRVING Administration Carvedilol 3.125 mg 06/07/25 18:00 06/08/25 09:13 Carvedilol 3.125 Mg Tablet PO 3.125 mg BIDCM IRVING Administration Protocol Cholecalciferol 50 mcg 06/08/25 10:00 06/08/25 08:15 Cholecalciferol (Vit D3) 25 Mcg Tablet (1,000 Units) PO 50 mcg DAILY IRVING Administration Clarify Med Order 0 each 06/07/25 21:00 06/07/25 21:01 Clarify Order NOTE 1 each CLARIFY IRVING Administration Cyanocobalamin 500 mcg 06/08/25 10:00 06/08/25 08:16 Cyanocobalamin 500 Mcg Tablet PO 500 mcg DAILY IRVING Administration Glycerin/Hypromellose/Polyethylene 1 drp 06/07/25 17:45 Glycerin/Hypromellose/[id number] 15 Ml Bottle EACH EYE Q1H PRN PRN DRY EYES Heparin Sodium (Porcine) 0 unit 06/07/25 17:20 Heparin Nomogram Adjustment 5,000 Unit/Ml Vial IV UD PRN Dose Adjustment Protocol Ceftriaxone Sodium 2 gm/ 50 mls @ 100 mls/hr 06/08/25 10:00 06/08/25 08:54 Sodium Chloride IV Infused Q24 IRVING Infusion Heparin Sodium/Dextrose 25,000 units in 250 mls @ 17.187 mls/hr 06/07/25 17:20 06/08/25 09:45 CONT INF 0 unit/kg/hr .[id number] IRVING 0 mls/hr Titration Protocol 15 UNIT/KG/HR Sodium Chloride 500 mls @ 15 mls/hr 06/07/25 17:23 IV PRN PRN Blood Transfusion Sodium Chloride 250 mls @ 15 mls/hr 06/07/25 17:23 IV .[id number] PRN Saline Flush Sodium Chloride 250 mls @ 15 mls/hr 06/07/25 17:23 IV .[id number] PRN Additional IVPB Infusion Lactulose 20 gm 06/07/25 19:00 06/08/25 08:18 Lactulose 20 Gm/30 Ml Udc PO 20 gm DAILY IRVING Administration Lansoprazole 30 mg 06/07/25 22:00 06/08/25 08:21 Lansoprazole 15 Mg Capsule.Dr PO 30 mg BID IRVING Administration Levothyroxine Sodium 50 mcg 06/08/25 06:00 06/08/25 06:12 Levothyroxine 50 Mcg Tablet PO 50 mcg DAILY@0600 IRVING Administration Loratadine 10 mg 06/07/25 22:00 06/07/25 21:01 Loratadine 10 Mg Tablet PO 10 mg QHS IRVING Administration Melatonin 10 mg 06/07/25 22:00 06/07/25 21:01 Melatonin 10 Mg Tablet PO 10 mg QHS IRVING Administration Montelukast Sodium 10 mg 06/07/25 22:00 06/07/25 21:01 Montelukast 10 Mg Tablet PO 10 mg QHS IRVING Administration Non-Formulary Medication 40 mg 06/08/25 10:00 Valbenazine [Ingrezza] PO DAILY IRVING Ondansetron HCl 4 mg 06/07/25 17:20 Ondansetron 4 Mg/2 Ml Vial IV Q8H PRN PRN NAUSEA/VOMITING Prochlorperazine Maleate 5 mg 06/07/25 17:20 Prochlorperazine 5 Mg Tablet PO TID PRN nausea and vomiting Sodium Chloride 10 - 40 ml 06/07/25 17:23 0.9% Saline Lock 10 Ml Syringe IV UD PRN SALINE FLUSH Trazodone HCl 100 mg 06/07/25 22:00 06/07/25 21:01 Trazodone 100 Mg Tablet PO 100 mg QHS IRVING Administration
[2025-06-08] MEDS: HEPARIN/D5w 25,000 UNITS 25,000 UNITS/250 ML IV.SOLN. 10.7 UNITS CONT INF (12:57)
[2025-06-08] MEDS: VALBENAZINE TOSYLATE 40 MG CAPSULE PO (13:13)
--- NOTE | 2025-06-08 14:04 | PCM.CONS.GEN ---
Assessment & Plan Assessment/Plan (1) Abnormal finding in CSF: PLAN: CSF 06/04/25 with 1 wbc and negative gram stain with negative cx. No evidence of meningitis. Still some cough and nausea, will check covid swab, cont to monitor off of abx. Will follow, thank you HPI Consult Data Date of Consult: 06/08/25 HPI Narrative Reason for Consultation: abnormal csf HPI Narrative: NIGHAT TIMMONS, is a 60 F with h/o afib, copd, chronic neck/back pain, follows with neurology. Reports headache and neck pain worsened for past week. Increased nausea for 2-3 weeks. No fever or chills. Had outpt LP done 06/04. Prelim report with gram neg or gram variable rods, sent to ED, admitted on acyclovir, vanc, and ceftriaxone. Now abx stopped. Seen by neurology. Not feeling any better. Some dry cough. Full ROS performed and neg except as noted above. [facility] Medical History On home oxygen therapy Irregular heart beat Atrial fibrillation Myocardial infarct Acute dyspnea Influenza A COVID-19 Altered mental status Stroke-like symptoms Chronic anticoagulation AF (paroxysmal atrial fibrillation) Acute right-sided weakness PONV (postoperative nausea and vomiting) Adult failure to thrive Contusion of hip Back contusion Difficulty in walking Impingement of left shoulder Enchondroma of left humerus History of Holter monitoring Loss of hearing Wears glasses Bipolar disorder History of steroid therapy History of renal disease Restless legs Sleep apnea Chronic cough History of skin cancer Disease of gingiva due to infection COVID-19 virus infection Degenerative tear of meniscus of left knee Osteoarthritis of left knee Cyclic vomiting syndrome Colitis Pain of left calf Kidney disease Sarcoidosis Morbid obesity Debility Myositis Stroke/cerebrovascular accident TIA (transient ischemic attack) History of atrial fibrillation Chest pain Diarrhea Bilateral flank pain Dysuria Oral candidiasis Abdominal pain Bilateral foot pain Venous insufficiency of both lower extremities History of abnormal cervical Pap smear Wears dentures Post-menopausal Cancer Marijuana use Open wound Thyroid disease Walker as ambulation aid Arthritis Bladder disease High cholesterol Easy bruising Excessive bleeding Back pain Injury of head and neck Blackout Syncope Seizures Dietary restriction Difficulty chewing History of hiatal hernia History of ulceration History of IBS Gastric reflux Smoker CPAP (continuous positive airway pressure) dependence Shortness of breath on exertion Leg cramps History of edema History of echocardiogram Hx of tilt table evaluation History of stress test Cardiology follow-up encounter History of CHF (congestive heart failure) Family history of colon cancer Allergic rhinitis Osteoarthritis of right hip Nonrheumatic aortic (valve) insufficiency Non-rheumatic mitral regurgitation Intertriginous dermatitis associated with moisture Psychosis Orthostatic hypotension Osteoarthritis DAPHNE (obstructive sleep apnea) Schizo NEC, chrn/exacerb Peripheral artery disease Pulmonary embolism Stroke Hypothyroidism HTN (hypertension) PAF (paroxysmal atrial fibrillation) Hypokalemia Hyponatremia Arthralgia of right hip Hip dislocation, right Enlarged aorta CKD (chronic kidney disease) Bipolar 1 disorder Cyst Non-convulsive status epilepticus Migraines Asthma Aortic valve insufficiency Hypertensive crisis without congestive heart failure Left arm swelling Conversion disorder with abnormal movement Gastritis Convulsion, non-epileptic Schizophrenia Depression Home Medications ?Medication ?Instructions ?Recorded ?Last Taken ?Type acetaminophen 325 mg capsule 325 mg PO Q4H PRN pain 01/04/24 03/24/24 History aripiprazole 15 mg tablet 15 mg PO DAILY bipolar 01/11/24 11/07/24 History trazodone 100 mg tablet 100 mg PO QHS sleep 01/11/24 11/06/24 History budesonide-formoterol HFA 160 2 inh inhalation DAILY asthma #3 ea 03/31/24 11/07/24 Rx mcg-4.5 mcg/actuation aerosol inhaler (Symbicort) polyethylene glycol 3350 17 17 g PO QDAY PRN constipation #850 05/14/24 Unknown Rx gram/dose oral powder grams hydroxyzine pamoate 100 mg capsule 100 mg PO QHS 05/21/24 11/06/24 History losartan 25 mg tablet 25 mg PO QDAY #90 tabs 08/27/24 11/07/24 Rx baclofen 5 mg tablet 5 mg PO 3XD 11/07/24 11/07/24 History cyclosporine 0.05 % eye drops in a 1 drp ophthalmic (eye) Q12H 11/07/24 Unknown History dropperette (Restasis) lidocaine 5 % topical patch 3 patch topical Q24H pain #30 ea 11/17/24 Unknown Rx furosemide 40 mg tablet 40 mg PO DAILY #30 tabs 01/09/25 Unknown Rx nitroglycerin 0.4 mg sublingual 0.4 mg sublingual PRN PRN CHEST 01/22/25 Unknown Rx tablet PAIN #25 tabs albuterol sulfate 90 mcg/actuation 2 puff inhalation Q4H PRN 01/28/25 Unknown Rx aerosol inhaler shortness of breath or wheezing #8.5 grams carvedilol 3.125 mg tablet 3.125 mg PO BID #60 TABLETS 02/26/25 Unknown Rx melatonin 5 mg tablet 10 mg (2 x 5 mg) PO QHS #90 tabs 03/25/25 Unknown Rx spironolactone 25 mg tablet 25 mg PO DAILY #90 tabs 03/25/25 Unknown Rx lactulose 10 gram/15 mL oral 30 ml PO DAILY #473 mL 03/31/25 Unknown Rx solution (Enulose) mepolizumab 100 mg/mL subcutaneous 100 mg subcut Q4W #1 mL 04/21/25 Unknown Rx syringe (Nucala) amitriptyline 25 mg tablet 25 mg PO QHS #30 tabs 04/28/25 Unknown Rx apixaban 5 mg tablet (Eliquis) 5 mg PO BID #60 tabs 04/28/25 Unknown Rx omeprazole 40 mg capsule,delayed 40 mg PO BID #120 caps 05/11/25 Unknown Rx release prochlorperazine maleate 5 mg 5 mg PO TID PRN nausea and 05/13/25 Unknown Rx tablet vomiting 30 days #90 tabs cholecalciferol (vitamin D3) 50 50 mcg PO QAM #90 caps 05/22/25 Unknown Rx mcg (2,000 unit) capsule cyanocobalamin (vitamin B-12) 500 500 mcg PO DAILY #90 tabs 05/22/25 Unknown Rx mcg tablet levothyroxine 50 mcg tablet 50 mcg PO DAILY for disorder of 05/22/25 Unknown Rx thyroid gland #90 tabs loratadine 10 mg tablet 10 mg PO QHS for allergies #90 tabs 05/22/25 Unknown Rx montelukast 10 mg tablet 10 mg PO QHS for allergies #90 tabs 05/22/25 Unknown Rx ondansetron HCl 4 mg tablet 4 mg PO Q6H PRN nausea and 05/26/25 Unknown Rx vomiting #30 tabs cyanocobalamin (vitamin B-12) 1,500 mcg IM QMONTH 06/01/25 Unknown History 1,000 mcg/mL injection solution hydrocortisone 1 % topical 1 applic topical BID PRN itching 06/01/25 Unknown Rx ointment (Anti-Itch #28.35 grams (hydrocortisone)) valbenazine 40 mg capsule 40 mg PO QDAY 06/01/25 Unknown History (Ingrezza) tramadol 50 mg tablet 50 mg PO BID PRN pain 06/03/25 Unknown History tiotropium bromide 1.25 2 puff PO DAILY for asthma 06/04/25 Unknown History mcg/actuation mist for inhalation (Spiriva Respimat) Allergy/AdvReac Type Severity Reaction Status Date / Time adhesive tape Allergy Rash Verified 06/07/25 12:51 atropine sulfate (From Allergy Hives Verified 06/07/25 12:51 ) codeine phosphate (From Allergy breathing Verified 06/07/25 12:51 Tylenol-Codeine #3) problems divalproex sodium (From Allergy Unknown Verified 06/07/25 12:51 Depakote) guaifenesin Allergy Itching Verified 06/07/25 12:51 hydrocodone Allergy Itching Verified 06/07/25 12:51 hydromorphone HCl (From Allergy facial Verified 06/07/25 12:51 Dilaudid) blisters,itching hyoscyamine sulfate (From Allergy Hives Verified 06/07/25 12:51 ) latex Allergy Rash Verified 06/07/25 12:51 pantoprazole sodium (From Allergy Rash Verified 06/07/25 12:51 Protonix) phenobarbital (From ) Allergy Hives Verified 06/07/25 12:51 promethazine HCl (From Allergy Anaphylaxis Verified 06/07/25 12:51 Phenergan) ramipril Allergy Unknown Verified 06/07/25 12:51 scopolamine hydrobromide Allergy Hives Verified 06/07/25 12:51 (From ) tramadol Allergy Itching Verified 06/07/25 12:51 ziprasidone mesylate (From Allergy Unknown Verified 06/07/25 12:51 Geodon) amlodipine AdvReac Vomiting Verified 06/07/25 12:51 levofloxacin (From Levaquin) AdvReac Itching Verified 06/07/25 12:51 metoclopramide (From Reglan) AdvReac Other Verified 06/07/25 12:51 Sulfa (Sulfonamide AdvReac Vomiting Verified 06/07/25 12:51 Antibiotics) ziprasidone HCl (From Geodon) AdvReac tremors Verified 06/07/25 12:51 Family History Sister Myocardial infarction Colon cancer Mother Hypertension Arthritis Brain aneurysm Heart disease High cholesterol Sister Colon cancer Heart disease High cholesterol Hypertension Arthritis Grandmother Arthritis Diabetes CVA (cerebral vascular accident) Father Heart disease High cholesterol Hypertension Surgical History History of back surgery (~12/2023) Previous back surgery Cataract extraction status History of esophagogastroduodenoscopy (EGD) Hx of colonoscopy History of laparoscopic cholecystectomy History of uterine suspension procedure S/P carpal tunnel release bladder sling left foot Social History household members: friend(s) number of children: 4 current occupational status: unemployed history of recent travel: No Smoking Status: Former smoker quit date: 11/12/23 Tobacco: How many years used: 26 Electronic Cigarette Use: not used quit status: considering quitting alcohol intake: never substance use type: does not use caffeine: Yes Type: coffee what type of physical activity do you participate in: none seatbelt use: never do you feel safe at home: Yes additional social history: single Physical Exam Const alert, oriented x3 and no apparent distress General Appearance: cooperative HEENT normocephalic and head/scalp atraumatic Eyes PERRL and EOMs intact bilaterally Neck supple and No nodes Resp normal air movement and clear to auscultation bilaterally Cardio regular rate and regular rhythm GI soft to palpation, non-tender and non-distended Extremity General Extremity: Negative for edema Skin no rashes or lesions noted Neuro CN's II-XII intact bilaterally Lab / Micro Data Attestation: I reviewed the patient's lab results. 06/08/25 05:35 06/08/25 05:35 Labs: Laboratory Results - last 24 hr 06/07/25 14:33: WBC 5.2, RBC 4.65, Hgb 13.8, Hct 40.8, MCV 87.7, MCH 29.7, MCHC 33.8, RDW Std Deviation 45.9 H, RDW Coeff of Yonathan 14.5, Plt Count 184, MPV 10.9, Immature Gran % (Auto) 0.000, Neut % (Auto) 67.9, Lymph % (Auto) 23.5, Jessamine % (Auto) 8.0, Eos % (Auto) 0.4, Baso % (Auto) 0.2, Absolute Neuts (auto) 3.6, Absolute Lymphs (auto) 1.23, Nucleated RBC % 0, Sodium 138, Potassium 3.7, Chloride 100, Carbon Dioxide 25.7, Anion Gap 12, BUN 12, Creatinine 1.27 H, Estim Creat Clear Calc 56.74, Est GFR (MDRD) Non-Af 48 L, BUN/Creatinine Ratio 9.1 L, Glucose 88, Calcium 9.6 06/07/25 17:07: PT 14.4, INR 1.1, APTT 27.7 06/08/25 00:02: APTT > 200.0 H* 06/08/25 05:35: WBC 4.4, RBC 4.51, Hgb 13.6, Hct 38.8, MCV 86.0, MCH 30.2, MCHC 35.1, RDW Std Deviation 43.8, RDW Coeff of Yonathan 13.7, Plt Count 182, MPV 11.2, Sodium 134, Potassium 4.0, Chloride 100, Carbon Dioxide 21.1, Anion Gap 13, BUN 11, Creatinine 1.10, Estim Creat Clear Calc 65.21, Est GFR (MDRD) Non-Af 57 L, BUN/Creatinine Ratio 9.6 L, Glucose 185 H, Calcium 9.1 06/08/25 09:15: APTT 162.2 H*
--- NOTE | 2025-06-08 14:54 | PN.HOSP_ITS ---
Reason for Visit Chief Complaint: Abnormal CSF findings Subjective Subjective Complaining of headache and neck pain. Objective Data Objective Data Vital Signs: Vital Signs Temp Pulse Resp BP Pulse Ox O2 Del Method O2 Flow Rate 36.5 C L 60 16 127/64 H 95 Room Air 2 06/08/25 14:37 06/08/25 14:40 06/08/25 14:37 06/08/25 14:37 06/08/25 14:37 06/08/25 14:40 06/08/25 07:46 Oxygen Flow Rate (L/min) 2 Oxygen Delivery Method Room Air Weight: 113.67 kg Body Mass Index (BMI) 44.4 Intake & Output: Intake and Output for Last 24 Hours 06/06/25 06/07/25 06/08/25 23:59 23:59 23:59 Intake Total 945.5 / 945.5 273.26 / 273.26 Balance 945.5 / 945.5 273.26 / 273.26 Lab / Micro Data 06/08/25 05:35 06/08/25 05:35 Labs: Laboratory Results - last 24 hr 06/07/25 14:33: Sodium 138, Potassium 3.7, Chloride 100, Carbon Dioxide 25.7, Anion Gap 12, BUN 12, Creatinine 1.27 H, Estim Creat Clear Calc 56.74, Est GFR (MDRD) Non-Af 48 L, BUN/Creatinine Ratio 9.1 L, Glucose 88, Calcium 9.6 06/07/25 17:07: PT 14.4, INR 1.1, APTT 27.7 06/08/25 00:02: APTT > 200.0 H* 06/08/25 05:35: WBC 4.4, RBC 4.51, Hgb 13.6, Hct 38.8, MCV 86.0, MCH 30.2, MCHC 35.1, RDW Std Deviation 43.8, RDW Coeff of Yonathan 13.7, Plt Count 182, MPV 11.2, Sodium 134, Potassium 4.0, Chloride 100, Carbon Dioxide 21.1, Anion Gap 13, BUN 11, Creatinine 1.10, Estim Creat Clear Calc 65.21, Est GFR (MDRD) Non-Af 57 L, B UN/Creatinine Ratio 9.6 L, Glucose 185 H, Calcium 9.1 06/08/25 09:15: APTT 162.2 H* Physical Exam Const alert and no apparent distress HEENT head/scalp atraumatic Neck Neck Narrative: right lateral neck paraspinal muscle tenderness. Resp normal respiratory effort, no retractions, no use of accessory muscles and clear to auscultation bilaterally Cardio regular rate, regular rhythm, S1 normal heart sound and S2 normal heart sound GI normal to inspection, nondistended, normoactive bowel sounds, soft to palpation, non-tender and non-distended Neuro Sensorium / Orientation: awake and alert Assessment & Plan Assessment/Plan (1) Abnormal finding in CSF: PLAN: Prelim with gram-negative rods however evaluation of culture today does not show that. Infectious disease consultation. On ceftriaxone. Patient does have neck pain however may be more musculoskeletal rather than true meningismus. pt reports LP performed due to concern for MS. PLAN: Plan Headache: continue acetaminophen and add ketorolac Chronic conditions: * pAfib: resume apixaban. * obesity class III: complicates care and recovery. * mood disorders: aripiprazole VTE prophylaxis: anticoagulated. Charges/Coding Visit Charges Inpatient E&M: 41833 Subs Hosp L2
[2025-06-08 19:26] LABS: Partial Thromboplast Time 26.2 Seconds (24.1-36.2)
[2025-06-08] MEDS: APIXABAN 5 MG TABLET PO (22:43)
[2025-06-08] MEDS: MELATONIN 10 MG TABLET PO (22:43)
[2025-06-08] MEDS: 0.9% Saline Lock 10 ML Syringe IV (22:44)
[2025-06-09] VITALS (9 sets, daily range): BP systolic 120–145; BP diastolic 47–67; PULSE 53–66; RESP 16–24; TEMP 36.1–36.7; O2SAT 93–100
[2025-06-09] MEDS: Budesonide Respules 0.5 MG/2 ML AMPUL.NEB. INHALATION ×2 (07:16→20:11)
[2025-06-09 07:58] LABS: Hematocrit 38.6 % (37-47); Hemoglobin 13.4 g/dL (12.0-15.0); Immature Granulocytes Count 0.030 X10^3/uL (0.0-0.0); Mean Corp Hgb Conc 34.7 g/dL (32-36); Mean Corpuscular Volume 86.5 fL (81-99); Mean Platelet Vol. 11.3 fl (6.2-12.0); NRBC Flagged by Analyzer 0 % (0-5); POSITIVE MORPHOLOGY YES; Platelet Count 179 K/mm3 (150-450); RBC Distribution Width CV 14.1 % (11.6-14.6); RBC Distribution Width SD 44.9 fl (35.1-43.9); Red Blood Count 4.46 M/mm3 (4.2-5.4); White Blood Count 7.4 K/mm3 (4.4-11.0)
[2025-06-09 08:23] LABS: Anion Gap 10 (5-15); BUN 14 mg/dL (4-19); BUN/Creat Ratio 11.3 RATIO (10-20); Calcium,Total 8.9 mg/dL (7.6-11.0); Carbon Dioxide 23.6 mmol/L (21.0-32.0); Chloride 99 mmol/L (98-108); Estimated Creatinine Clearance 59.77 ml/min (50-250); Glucose 84 mg/dL (70-99); Potassium 4.3 mmol/L (3.3-5.1)
[2025-06-09 08:31] LABS: Differential Indicated SCAN CRITERIA MET
[2025-06-09] MEDS: Ceftriaxone 2 GM in 0.9% Normal Saline (50mL MB+) 50 ML IV (09:04)
[2025-06-09] MEDS: VALBENAZINE TOSYLATE 40 MG CAPSULE PO (09:10)
[2025-06-09] MEDS: Cholecalciferol (VIT D3) 25 MCG TABLET (1,000 UNITS) 50 MCG PO (09:12)
[2025-06-09] MEDS: APIXABAN 5 MG TABLET PO ×2 (09:12→21:28)
--- NOTE | 2025-06-09 09:16 | PCM.PN.HOSP ---
Reason for Visit Chief Complaint: Abnormal CSF findings Subjective Subjective Headache improved. Still with neck pain. Objective Data Objective Data Vital Signs: Vital Signs Temp Pulse Resp BP Pulse Ox O2 Del Method O2 Flow Rate 36.4 C L 54 L 16 130/51 H 97 Room Air 2 06/09/25 08:57 06/09/25 08:57 06/09/25 08:57 06/09/25 08:57 06/09/25 08:57 06/09/25 08:57 06/09/25 07:16 Oxygen Flow Rate (L/min) 2 Oxygen Delivery Method Room Air Weight: 113.67 kg Body Mass Index (BMI) 44.4 Intake & Output: Intake and Output for Last 24 Hours 06/07/25 06/08/25 06/09/25 23:59 23:59 23:59 Intake Total 945.5 / 945.5 301.79 / 301.79 Balance 945.5 / 945.5 301.79 / 301.79 Lab / Micro Data 06/09/25 07:51 06/09/25 07:51 Labs: Laboratory Results - last 24 hr 06/08/25 09:15: APTT 162.2 H* 06/08/25 19:01: APTT 26.2 06/09/25 07:51: WBC 7.4, RBC 4.46, Hgb 13.4, Hct 38.6, MCV 86.5, MCH 30.0, MCHC 34.7, RDW Std Deviation 44.9 H, RDW Coeff of Yonathan 14.1, Plt Count 179, MPV 11.3, Immature Gran % (Auto) 0.400, Neut % (Auto) 72.5 H, Lymph % (Auto) 20.6, Morton % (Auto) 6.1, Eos % (Auto) 0.1, Baso % (Auto) 0.3, Absolute Neuts (auto) 5.4, Absolute Lymphs (auto) 1.53, Nucleated RBC % 0, Sodium 132 L, Potassium 4.3, Chloride 99, Carbon Dioxide 23.6, Anion Gap 10, BUN 14, Creatinine 1.20, Estim Creat Clear Calc 59.77, Est GFR (MDRD) Non-Af 52 L, BUN/Creatinine Ratio 11.3, Glucose 84, Calcium 8.9 Micro: Microbiology 08/25/25 15:30 Mucosa - Nasopharyngeal SARS-CoV-2, Influenza & RSV (PCR) - Final Physical Exam Const alert and no apparent distress Resp normal respiratory effort and no retractions Cardio regular rate and regular rhythm GI normal to inspection, nondistended, normoactive bowel sounds, soft to palpation, non-tender and non-distended Neuro Sensorium / Orientation: awake and alert Assessment & Plan Assessment/Plan (1) Abnormal finding in CSF: PLAN: Prelim with gram-negative rods however evaluation of culture today does not show that. Infectious disease consultation. On ceftriaxone. Patient does have neck pain however may be more musculoskeletal rather than true meningismus. pt reports LP performed due to concern for MS. PLAN: Plan Headache: continue acetaminophen and add ketorolac Chronic conditions: pAfib: resume apixaban. obesity class III: complicates care and recovery. mood disorders: aripiprazole VTE prophylaxis: anticoagulated. Charges/Coding Visit Charges Inpatient E&M: 47637 Subs Hosp L1
[2025-06-09] MEDS: Albuterol 2.5 MG/3 ML VIAL.NEB. INHALATION (13:36)
[2025-06-09] MEDS: MELATONIN 10 MG TABLET PO (21:27)
[2025-06-10] VITALS (8 sets, daily range): BP systolic 136–146; BP diastolic 46–91; PULSE 46–78; RESP 16–18; TEMP 36.1–36.9; O2SAT 95–100
[2025-06-10] MEDS: APIXABAN 5 MG TABLET PO (08:14)
[2025-06-10] MEDS: Cholecalciferol (VIT D3) 25 MCG TABLET (1,000 UNITS) 50 MCG PO (08:14)
[2025-06-10] MEDS: VALBENAZINE TOSYLATE 40 MG CAPSULE PO (08:15)
--- NOTE | 2025-06-10 08:38 | PN.HOSP_ITS ---
Reason for Visit Chief Complaint: Abnormal CSF findings Subjective Subjective Feeling better overall. Headache and neck pain are much improved. Objective Data Objective Data Vital Signs: Vital Signs Temp Pulse Resp BP Pulse Ox O2 Del Method O2 Flow Rate 36.5 C L 78 18 136/46 H 98 Nasal Cannula 2 06/10/25 08:12 06/10/25 08:19 06/10/25 08:19 06/10/25 08:12 06/10/25 08:19 06/10/25 08:19 06/10/25 08:19 Oxygen Flow Rate (L/min) 2 Oxygen Delivery Method Nasal Cannula Weight: 113.67 kg Body Mass Index (BMI) 44.4 Intake & Output: Intake and Output for Last 24 Hours 06/08/25 06/09/25 06/10/25 23:59 23:59 23:59 Intake Total 301.79 / 301.79 50 / 50 Balance 301.79 / 301.79 50 / 50 Lab / Micro Data 06/09/25 07:51 06/09/25 07:51 Micro: Microbiology 06/08/25 15:30 Mucosa - Nasopharyngeal SARS-CoV-2, Influenza & RSV (PCR) - Final Physical Exam Const alert and no apparent distress Constitutional Narrative: Up in chair. Nontoxic. Assessment & Plan Assessment/Plan (1) Abnormal finding in CSF: PLAN: Prelim with gram-negative rods however evaluation of culture today does not show that. Infectious disease consultation. pt reports LP performed due to concern for MS. Preliminary LP results showing possible bacillus sp. Discussed with Dr. Griffin who feels that is likely contaminant given the fact that he only had 1 white blood cell and clinically patient did not present as acute meningitis PLAN: Plan Headache: continue acetaminophen and add ketorolac Chronic conditions: * pAfib: resume apixaban. * obesity class III: complicates care and recovery. * mood disorders: aripiprazole VTE prophylaxis: anticoagulated. DC home.
--- NOTE | 2025-06-10 12:40 | DS.PCM_ITS ---
Providers Date of Admission: 06/07/25 Primary Care Physician: Dr. Elizabeth Santamaria MD Consultations 06/07/25 17:20 Consult: Tele-Neurology Routine Consulting Provider: [facility] Reason for Consult: concern for meningitis EMERGENT Consult: No Notified: Yes Date Notified: 06/07/25 Time Notified: 16:14 Method of Notification: [facility] Staff Notify [facility] of Tele-Neurology Consult: Yes 06/08/25 11:04 Consult: Infectious Disease Routine Consulting Provider: Ty Jackson Reason for Consult: possible meningitis EMERGENT Consult: No Notified: Yes Date Notified: 06/08/25 Time Notified: 11:04 Method of Notification: Text Reason For Visit: CONCERN FOR MENINGITIS Diagnosis Discharge Diagnosis (1) Abnormal finding in CSF: Status: Acute Code(s): R83.9 - Unspecified abnormal finding in cerebrospinal fluid Plan: Prelim with gram-negative rods however evaluation of culture today does not show that. Infectious disease consultation. pt reports LP performed due to concern for MS. Preliminary LP results showing possible bacillus sp. Discussed with Dr. Griffin who feels that is likely contaminant given the fact that he only had 1 white blood cell and clinically patient did not present as acute meningitis Plan Headache: Resolved continue acetaminophen and add ketorolac Chronic conditions: * pAfib: resume apixaban. * obesity class III: complicates care and recovery. * mood disorders: aripiprazole VTE prophylaxis: anticoagulated. DC home. Medications at Discharge Home Medications acetaminophen 325 mg capsule 325 mg PO Q4H PRN pain 01/04/24 aripiprazole 15 mg tablet 15 mg PO DAILY bipolar 01/11/24 trazodone 100 mg tablet 100 mg PO QHS sleep 01/11/24 budesonide-formoterol HFA 160 mcg-4.5 mcg/actuation aerosol inhaler (Symbicort) 2 inh inhalation DAILY asthma #3 ea 03/31/24 polyethylene glycol 3350 17 gram/dose oral powder 17 g PO QDAY PRN constipation #850 grams 05/14/24 hydroxyzine pamoate 100 mg capsule 100 mg PO QHS 05/21/24 losartan 25 mg tablet 25 mg PO QDAY #90 tabs 08/27/24 baclofen 5 mg tablet 5 mg PO 3XD 11/07/24 cyclosporine 0.05 % eye drops in a dropperette (Restasis) 1 drp ophthalmic (eye) Q12H 11/07/24 lidocaine 5 % topical patch 3 patch topical Q24H pain #30 ea 11/17/24 furosemide 40 mg tablet 40 mg PO DAILY #30 tabs 01/09/25 nitroglycerin 0.4 mg sublingual tablet 0.4 mg sublingual PRN PRN CHEST PAIN #25 tabs 01/22/25 albuterol sulfate 90 mcg/actuation aerosol inhaler 2 puff inhalation Q4H PRN shortness of breath or wheezing #8.5 grams 01/28/25 carvedilol 3.125 mg tablet 3.125 mg PO BID #60 TABLETS 02/26/25 melatonin 5 mg tablet 10 mg (2 x 5 mg) PO QHS #90 tabs 03/25/25 spironolactone 25 mg tablet 25 mg PO DAILY #90 tabs 03/25/25 lactulose 10 gram/15 mL oral solution (Enulose) 30 ml PO DAILY #473 mL 03/31/25 mepolizumab 100 mg/mL subcutaneous syringe (Nucala) 100 mg subcut Q4W #1 mL 04/21/25 amitriptyline 25 mg tablet 25 mg PO QHS #30 tabs 04/28/25 apixaban 5 mg tablet (Eliquis) 5 mg PO BID #60 tabs 04/28/25 omeprazole 40 mg capsule,delayed release 40 mg PO BID #120 caps 05/11/25 prochlorperazine maleate 5 mg tablet 5 mg PO TID PRN nausea and vomiting 30 days #90 tabs 05/13/25 cholecalciferol (vitamin D3) 50 mcg (2,000 unit) capsule 50 mcg PO QAM #90 caps 05/22/25 cyanocobalamin (vitamin B-12) 500 mcg tablet 500 mcg PO DAILY #90 tabs 05/22/25 levothyroxine 50 mcg tablet 50 mcg PO DAILY for disorder of thyroid gland #90 tabs 05/22/25 loratadine 10 mg tablet 10 mg PO QHS for allergies #90 tabs 05/22/25 montelukast 10 mg tablet 10 mg PO QHS for allergies #90 tabs 05/22/25 ondansetron HCl 4 mg tablet 4 mg PO Q6H PRN nausea and vomiting #30 tabs 05/26/25 cyanocobalamin (vitamin B-12) 1,000 mcg/mL injection solution 1,500 mcg IM QMONTH 06/01/25 hydrocortisone 1 % topical ointment (Anti-Itch (hydrocortisone)) 1 applic topical BID PRN itching #28.35 grams 06/01/25 valbenazine 40 mg capsule (Ingrezza) 40 mg PO QDAY 06/01/25 tramadol 50 mg tablet 50 mg PO BID PRN pain 06/03/25 tiotropium bromide 1.25 mcg/actuation mist for inhalation (Spiriva Respimat) 2 puff PO DAILY for asthma 06/04/25 Hospital Course Operations None Procedures None Summary of Care Provided Hospital Course: Patient had an LP in regards to his MS evaluation and came back showing a gram- negative doc in the CSF. Patient was sent to the emergency room and patient was started on antibiotics with ceftriaxone. Patient was seen by neurology and infectious disease. Antibiotics were discontinued. CSF culture actually the result was actually rescinded and it was negative but when he come back showing possible bacillus species. I spoke with infectious disease it feels likely contaminant given the fact the patient only had 1 white blood cell in the CSF and clinically did not appear to have meningitis. Patient will follow-up with neurology in regards to further MS evaluation. Weight / BMI Weight Weight: 113.67 kg Body Mass Index (BMI) 44.4 ABG / Lab / Microbiology Data 06/09/25 07:51 06/09/25 07:51 Microbiology: Microbiology 06/08/25 15:30 Mucosa - Nasopharyngeal SARS-CoV-2, Influenza & RSV (PCR) - Final D/C Instructions DC O2, CPAP, BIPAP Needs Home O2 Discharge instructions: No Meaningful Use Info Meaningful Use Meaningful Use Diagnoses (Choose all that apply): None applicable Discharge Plan Admission Admit Date/Time: 06/07/25 16:05 Primary Reason for Your Visit: Abnormal lumbar puncture Attending Provider: Facundo Jameson Primary Care Provider: Elizabeth Santamaria Consulting Providers: Shlomo Yates; Aristides Conn; Larisa Sarmiento; Lilo Kimball; Mary Goyal; Akash Isabel; Sparkle Alcocer; Juvenal Rowland; Reagan Urbina; Esvin Szymanski; Jammie Goodwin; Alexey Potter; Jennifer Herrmann; Melissa Paredes; Radha Joiner; Padilla Haro; Lorraine Garcia; Matt Estevez; Zaynab Salamanca; Dodie De La Garza; Carlo Whipple; Ty Jackson Instructions Additional Instructions / Restrictions: You had findings on your lumbar puncture fluid that was concerning for meningitis but that appears to be more of a contaminant. Please follow-up with Dr. Grider in regards to further follow-up in regards to the remainder of the lumbar puncture findings. Discharge Orders/Prescriptions Prescriptions: Continued acetaminophen 325 mg capsule 325 mg PO Q4H PRN (Reason: pain) budesonide-formoterol [Symbicort] 160-4.5 mcg/actuation HFA aerosol inhaler 2 inh inhalation DAILY Qty: 3 3RF hydroxyzine pamoate 100 mg capsule 100 mg PO QHS losartan 25 mg tablet 25 mg PO QDAY Qty: 90 3RF lactulose [Enulose] 10 gram/15 mL solution 30 ml PO DAILY Qty: 473 0RF Patient Comments: [NO ORIGINAL SIG] Nucala 100 mg/mL syringe 100 mg subcut Q4W Qty: 1 11RF tramadol 50 mg tablet 50 mg PO BID PRN (Reason: pain) cyanocobalamin (vitamin B-12) 1,000 mcg/mL solution 1,500 mcg IM QMONTH Ingrezza 40 mg capsule 40 mg PO QDAY hydrocortisone [Anti-Itch (HC)] 1 % ointment 1 applic topical BID PRN (Reason: itching) Qty: 28.35 0RF Spiriva Respimat 1.25 mcg/actuation mist 2 puff PO DAILY aripiprazole 15 mg tablet 15 mg PO DAILY trazodone 100 mg tablet 100 mg PO QHS cyclosporine [Restasis] 0.05 % dropperette 1 drp ophthalmic (eye) Q12H Patient Comments: [NO ORIGINAL SIG] baclofen 5 mg tablet 5 mg PO 3XD polyethylene glycol 3350 17 gram/dose powder 17 g PO QDAY PRN (Reason: constipation) Qty: 850 1RF lidocaine 5 % adhesive patch,medicated 3 patch topical Q24H Qty: 30 0RF Rx Instructions: APPLY ONE PATCH TO PAINFUL AREA FOR UP TO 12 HOURS, THEN REMOVE FOR 12 HOURS furosemide 40 mg tablet 40 mg PO DAILY Qty: 30 5RF nitroglycerin 0.4 mg tablet, sublingual 0.4 mg SUBLINGUAL PRN PRN (Reason: CHEST PAIN) Qty: 25 3RF albuterol sulfate 90 mcg/actuation HFA aerosol inhaler 2 puff inhalation Q4H PRN (Reason: shortness of breath or wheezing) Qty: 8.5 6RF Rx Instructions: administer with spacer carvedilol 3.125 mg tablet 3.125 mg PO BID Qty: 60 11RF spironolactone 25 mg tablet 25 mg PO DAILY Qty: 90 0RF melatonin 5 mg tablet 10 mg PO QHS Qty: 90 1RF Eliquis 5 mg tablet 5 mg PO BID Qty: 60 11RF amitriptyline 25 mg tablet 25 mg PO QHS Qty: 30 4RF omeprazole 40 mg capsule,delayed release(DR/EC) 40 mg PO BID Qty: 120 2RF prochlorperazine maleate 5 mg tablet 5 mg PO TID PRN (Reason: nausea and vomiting) 30 Days Qty: 90 4RF montelukast 10 mg tablet 10 mg PO QHS Qty: 90 0RF cholecalciferol (vitamin D3) 50 mcg (2,000 unit) capsule 50 mcg PO QAM Qty: 90 0RF cyanocobalamin (vitamin B-12) 500 mcg tablet 500 mcg PO DAILY Qty: 90 0RF levothyroxine 50 mcg tablet 50 mcg PO DAILY Qty: 90 0RF loratadine 10 mg tablet 10 mg PO QHS Qty: 90 0RF ondansetron HCl 4 mg tablet 4 mg PO Q6H PRN (Reason: nausea and vomiting) Qty: 30 2RF Referrals / Follow Up: [facility] [Provider Group] - Within 1 Month Elizabeth Santamaria MD [Primary Care Provider] - Within 2 Weeks Disposition Disposition (needs filled in before D/C Order can be placed): Home, Self Care Charges/Coding Visit Charges Inpatient E&M: 09903 Disch Hosp
--- NOTE | 2025-06-10 14:00 | CASEMGMT ---
Patient has order for discharge. RN CM in to discuss needs at discharge. Patient denies needs or help at discharge. Patient had no further questions or concerns.
--- NOTE | 2025-06-10 15:42 | PHA.DC.MR.R ---
Pharmacy [place] Med Reconciliation Pharmacy Service has performed discharge medication reconciliation for this patient. The patient's discharge medication list was reviewed for discrepancies and discrepancies were resolved. Medications at Discharge Home Medications acetaminophen 325 mg capsule 325 mg PO Q4H PRN pain 01/04/24 aripiprazole 15 mg tablet 15 mg PO DAILY bipolar 01/11/24 trazodone 100 mg tablet 100 mg PO QHS sleep 01/11/24 budesonide-formoterol HFA 160 mcg-4.5 mcg/actuation aerosol inhaler (Symbicort) 2 inh inhalation DAILY asthma #3 ea 03/31/24 polyethylene glycol 3350 17 gram/dose oral powder 17 g PO QDAY PRN constipation #850 grams 05/14/24 hydroxyzine pamoate 100 mg capsule 100 mg PO QHS 05/21/24 losartan 25 mg tablet 25 mg PO QDAY #90 tabs 08/27/24 baclofen 5 mg tablet 5 mg PO 3XD 11/07/24 cyclosporine 0.05 % eye drops in a dropperette (Restasis) 1 drp ophthalmic (eye) Q12H 11/07/24 lidocaine 5 % topical patch 3 patch topical Q24H pain #30 ea 11/17/24 furosemide 40 mg tablet 40 mg PO DAILY #30 tabs 01/09/25 nitroglycerin 0.4 mg sublingual tablet 0.4 mg sublingual PRN PRN CHEST PAIN #25 tabs 01/22/25 albuterol sulfate 90 mcg/actuation aerosol inhaler 2 puff inhalation Q4H PRN shortness of breath or wheezing #8.5 grams 01/28/25 carvedilol 3.125 mg tablet 3.125 mg PO BID #60 TABLETS 02/26/25 melatonin 5 mg tablet 10 mg (2 x 5 mg) PO QHS #90 tabs 03/25/25 spironolactone 25 mg tablet 25 mg PO DAILY #90 tabs 03/25/25 lactulose 10 gram/15 mL oral solution (Enulose) 30 ml PO DAILY #473 mL 03/31/25 mepolizumab 100 mg/mL subcutaneous syringe (Nucala) 100 mg subcut Q4W #1 mL 04/21/25 amitriptyline 25 mg tablet 25 mg PO QHS #30 tabs 04/28/25 apixaban 5 mg tablet (Eliquis) 5 mg PO BID #60 tabs 04/28/25 omeprazole 40 mg capsule,delayed release 40 mg PO BID #120 caps 05/11/25 prochlorperazine maleate 5 mg tablet 5 mg PO TID PRN nausea and vomiting 30 days #90 tabs 05/13/25 cholecalciferol (vitamin D3) 50 mcg (2,000 unit) capsule 50 mcg PO QAM #90 caps 05/22/25 cyanocobalamin (vitamin B-12) 500 mcg tablet 500 mcg PO DAILY #90 tabs 05/22/25 levothyroxine 50 mcg tablet 50 mcg PO DAILY for disorder of thyroid gland #90 tabs 05/22/25 loratadine 10 mg tablet 10 mg PO QHS for allergies #90 tabs 05/22/25 montelukast 10 mg tablet 10 mg PO QHS for allergies #90 tabs 05/22/25 ondansetron HCl 4 mg tablet 4 mg PO Q6H PRN nausea and vomiting #30 tabs 05/26/25 cyanocobalamin (vitamin B-12) 1,000 mcg/mL injection solution 1,500 mcg IM QMONTH 06/01/25 hydrocortisone 1 % topical ointment (Anti-Itch (hydrocortisone)) 1 applic topical BID PRN itching #28.35 grams 06/01/25 valbenazine 40 mg capsule (Ingrezza) 40 mg PO QDAY 06/01/25 tramadol 50 mg tablet 50 mg PO BID PRN pain 06/03/25 tiotropium bromide 1.25 mcg/actuation mist for inhalation (Spiriva Respimat) 2 puff PO DAILY for asthma 06/04/25
== END 2025-06-10 14:55 | disposition home or self-care (01) ==
LOC: ED 15:22 → PCU 16:42
PROVIDERS: Admitting Provider Hospitalist; Emergency Provider Emergency Medicine; PCP Internal Medicine
DX: R83.9 Unspecified abnormal finding in cerebrospinal fluid (principal); I13.0 Hypertensive heart and chronic kidney disease with heart failure and stage 1 through stage 4 chronic kidney disease, or unspecified chronic kidney disease; I50.9 Heart failure, unspecified; F31.9 Bipolar disorder, unspecified; J44.89 Other specified chronic obstructive pulmonary disease; I48.0 Paroxysmal atrial fibrillation; E66.813 Obesity, class 3; Z68.41 Body mass index [BMI] 40.0-44.9, adult; Z79.51 Long term (current) use of inhaled steroids; Z87.891 Personal history of nicotine dependence; Z86.711 Personal history of pulmonary embolism; F41.9 Anxiety disorder, unspecified; E78.00 Pure hypercholesterolemia, unspecified; E03.9 Hypothyroidism, unspecified; M43.6 Torticollis; N18.9 Chronic kidney disease, unspecified; Z99.81 Dependence on supplemental oxygen; Z79.01 Long term (current) use of anticoagulants; Z79.899 Other long term (current) drug therapy; G47.33 Obstructive sleep apnea (adult) (pediatric); Z79.890 Hormone replacement therapy; G89.29 Other chronic pain
CPT/HCPCS: 36415; 80048; 85025; 85027; 85610; 85730; 87631; 92526; 92610; 94640; 94668; 96365; 96366; 96367; 96368; 96375; 96376; 97162; 97166; 97530; 97535; 99221; 99285; A4216; G0378; J0696; J2405

== ENCOUNTER → 2025-07-02 | Outpatient (CLI) | payer MEDICAID, SELFPAY ==
[2025-07-07 19:08] LABS: HPV APTIMA, High Risk Negative (Negative)
== END | disposition home or self-care (01) ==
LOC: LABSPEC 11:36
PROVIDERS: PCP Internal Medicine; Referring Provider Nurse Practitioner Family; Visit Provider Nurse Practitioner Family
DX: Z12.4 Encounter for screening for malignant neoplasm of cervix (principal)
CPT/HCPCS: 87624; 88175; G0145

== ENCOUNTER → 2025-07-10 | Outpatient (CLI) | payer MEDICAID, SELFPAY ==
--- NOTE | 2025-07-10 13:43 | BI_ITS ---
EXAM: DIAG MAMM W/CAD, BILAT; BILAT BRST JULY STAND ALONE; BREAST LIMITED UNILATERAL 07/10/2025 CLINICAL HISTORY: F, Age 60 y/o , BREAST PAIN; MASTODYNIA TECHNIQUE: Procedure Code: [id number]; BIBILATBRTOM; USBRSTLIMIT Modality: MG; US Procedure: DIAG MAMM W/CAD, BILAT; BILAT BRST JULY STAND ALONE; BREAST LIMITED UNILATERAL. COMPARISON: Prior exam(s) dated 06/19/2023. FINDINGS: MAMMOGRAM: TISSUE DENSITY: The breasts are almost entirely fatty. Right breast: The patient presents with right breast pain. There are no suspicious mammographic findings in the area of patient's reported pain in the lower inner right breast. Otherwise, there are no suspicious findings in the right breast. Left breast: No significant masses, calcifications or other abnormalities are identified. ULTRASOUND: Ultrasound performed of the lower-inner quadrant of the right breast in the patient's area of reported pain demonstrates no suspicious sonographic findings. BI/Bilat Brst July Stand Alone IMPRESSION: 1. There are no suspicious mammographic or sonographic findings in the area of patient's reported pain in the right breast. Clinical management is recommended for the pain. 2. There is no evidence of malignancy in either breast. OVERALL FINAL ASSESSMENT BI-RADS 1: NEGATIVE RECOMMENDATION: Routine annual follow-up in 1 Year Additional Recommendation none A letter with findings and recommendations will be mailed to the patient. Reading Location: [id number]
--- NOTE | 2025-07-10 14:00 | BI_ITS ---
EXAM: DIAG MAMM W/CAD, BILAT; BILAT BRST JULY STAND ALONE; BREAST LIMITED UNILATERAL 07/10/2025 CLINICAL HISTORY: F, Age 60 y/o , BREAST PAIN; MASTODYNIA TECHNIQUE: Procedure Code: [id number]; BIBILATBRTOM; USBRSTLIMIT Modality: MG; US Procedure: DIAG MAMM W/CAD, BILAT; BILAT BRST JULY STAND ALONE; BREAST LIMITED UNILATERAL. COMPARISON: Prior exam(s) dated 06/19/2023. FINDINGS: MAMMOGRAM: TISSUE DENSITY: The breasts are almost entirely fatty. Right breast: The patient presents with right breast pain. There are no suspicious mammographic findings in the area of patient's reported pain in the lower inner right breast. Otherwise, there are no suspicious findings in the right breast. Left breast: No significant masses, calcifications or other abnormalities are identified. ULTRASOUND: Ultrasound performed of the lower-inner quadrant of the right breast in the patient's area of reported pain demonstrates no suspicious sonographic findings. BI/DIAG MAMM W/CAD, BILAT IMPRESSION: 1. There are no suspicious mammographic or sonographic findings in the area of patient's reported pain in the right breast. Clinical management is recommended for the pain. 2. There is no evidence of malignancy in either breast. OVERALL FINAL ASSESSMENT BI-RADS 1: NEGATIVE RECOMMENDATION: Routine annual follow-up in 1 Year Additional Recommendation none A letter with findings and recommendations will be mailed to the patient. Reading Location: [id number]
== END | disposition home or self-care (01) ==
LOC: OPBI 13:40
PROVIDERS: PCP Internal Medicine; Referring Provider Nurse Practitioner Family; Visit Provider Nurse Practitioner Family
DX: N64.4 Mastodynia (principal)
CPT/HCPCS: 77062; 76642; 77066; G0279

== ENCOUNTER 2025-08-18 17:42 | Emergency (ER) | payer MEDICAID, SELFPAY ==
[2025-08-18 17:43] VITALS: BP 147/91; PULSE 77; RESP 16; TEMP 36.3; O2SAT 100; BMI 44.7
--- NOTE | 2025-08-18 18:58 | EX.ED.DYSGE1 ---
HPI History of Present Illness Chief Complaint: Foreign Body Informant: patient Onset/Context/Timing Onset: Today Context: Sudden Onset Timing: Continuous Quality: Sharp Location: Throat Worsened by: Swallowing Relieved by: Nothing Narrative Narrative: Patient presents with difficulty swallowing that began tonight. Patient states she was eating pork chop and felt like something got stuck in her throat. Patient states she is able to swallow liquids but is unable to swallow crackers. Patient describes her pain as sharp. Patient states it is worse with swallowing. Patient denies any fevers or chills. Patient admits to some nausea but denies any vomiting. [facility] Medical History On home oxygen therapy Irregular heart beat Atrial fibrillation Myocardial infarct Acute dyspnea Influenza A COVID-19 Altered mental status Stroke-like symptoms Chronic anticoagulation AF (paroxysmal atrial fibrillation) Acute right-sided weakness PONV (postoperative nausea and vomiting) Adult failure to thrive Contusion of hip Back contusion Difficulty in walking Impingement of left shoulder Enchondroma of left humerus History of Holter monitoring Loss of hearing Wears glasses Bipolar disorder History of steroid therapy History of renal disease Restless legs Sleep apnea Chronic cough History of skin cancer Disease of gingiva due to infection COVID-19 virus infection Degenerative tear of meniscus of left knee Osteoarthritis of left knee Cyclic vomiting syndrome Colitis Pain of left calf Kidney disease Sarcoidosis Morbid obesity Debility Myositis Stroke/cerebrovascular accident TIA (transient ischemic attack) History of atrial fibrillation Chest pain Diarrhea Bilateral flank pain Dysuria Oral candidiasis Abdominal pain Bilateral foot pain Venous insufficiency of both lower extremities History of abnormal cervical Pap smear Wears dentures Post-menopausal Cancer Marijuana use Open wound Thyroid disease Walker as ambulation aid Arthritis Bladder disease High cholesterol Easy bruising Excessive bleeding Back pain Injury of head and neck Blackout Syncope Seizures Dietary restriction Difficulty chewing History of hiatal hernia History of ulceration History of IBS Gastric reflux Smoker CPAP (continuous positive airway pressure) dependence Shortness of breath on exertion Leg cramps History of edema History of echocardiogram Hx of tilt table evaluation History of stress test Cardiology follow-up encounter History of CHF (congestive heart failure) Family history of colon cancer Allergic rhinitis Osteoarthritis of right hip Nonrheumatic aortic (valve) insufficiency Non-rheumatic mitral regurgitation Intertriginous dermatitis associated with moisture Psychosis Orthostatic hypotension Osteoarthritis DAPHNE (obstructive sleep apnea) Schizo NEC, chrn/exacerb Peripheral artery disease Pulmonary embolism Stroke Hypothyroidism HTN (hypertension) PAF (paroxysmal atrial fibrillation) Hypokalemia Hyponatremia Arthralgia of right hip Hip dislocation, right Enlarged aorta CKD (chronic kidney disease) Bipolar 1 disorder Cyst Non-convulsive status epilepticus Migraines Asthma Aortic valve insufficiency Hypertensive crisis without congestive heart failure Left arm swelling Conversion disorder with abnormal movement Gastritis Convulsion, non-epileptic Schizophrenia Depression Home Medications ?Medication ?Instructions ?Recorded ?Last Taken ?Type acetaminophen 325 mg capsule 325 mg PO Q4H PRN pain 01/04/24 03/24/24 History aripiprazole 15 mg tablet 15 mg PO DAILY bipolar 01/11/24 11/07/24 History trazodone 100 mg tablet 100 mg PO QHS sleep 01/11/24 11/06/24 History polyethylene glycol 3350 17 17 g PO QDAY PRN constipation #850 05/14/24 Unknown Rx gram/dose oral powder grams hydroxyzine pamoate 100 mg capsule 100 mg PO QHS 05/21/24 11/06/24 History baclofen 5 mg tablet 5 mg PO 3XD 11/07/24 11/07/24 History cyclosporine 0.05 % eye drops in a 1 drp ophthalmic (eye) Q12H 11/07/24 Unknown History dropperette (Restasis) lidocaine 5 % topical patch 3 patch topical Q24H pain #30 ea 11/17/24 Unknown Rx nitroglycerin 0.4 mg sublingual 0.4 mg sublingual PRN PRN CHEST 01/22/25 Unknown Rx tablet PAIN #25 tabs carvedilol 3.125 mg tablet 3.125 mg PO BID #60 TABLETS 02/26/25 Unknown Rx lactulose 10 gram/15 mL oral 30 ml PO DAILY #473 mL 03/31/25 Unknown Rx solution (Enulose) mepolizumab 100 mg/mL subcutaneous 100 mg subcut Q4W #1 mL 04/21/25 Unknown Rx syringe (Nucala) amitriptyline 25 mg tablet 25 mg PO QHS #30 tabs 04/28/25 Unknown Rx apixaban 5 mg tablet (Eliquis) 5 mg PO BID #60 tabs 04/28/25 Unknown Rx omeprazole 40 mg capsule,delayed 40 mg PO BID #120 caps 05/11/25 Unknown Rx release prochlorperazine maleate 5 mg 5 mg PO TID PRN nausea and 05/13/25 Unknown Rx tablet vomiting 30 days #90 tabs ondansetron HCl 4 mg tablet 4 mg PO Q6H PRN nausea and 05/26/25 Unknown Rx vomiting #30 tabs cyanocobalamin (vitamin B-12) 1,500 mcg IM QMONTH 06/01/25 Unknown History 1,000 mcg/mL injection solution hydrocortisone 1 % topical 1 applic topical BID PRN itching 06/01/25 Unknown Rx ointment (Anti-Itch #28.35 grams (hydrocortisone)) valbenazine 40 mg capsule 40 mg PO QDAY 06/01/25 Unknown History (Ingrezza) tramadol 50 mg tablet 50 mg PO BID PRN pain 06/03/25 Unknown History furosemide 40 mg tablet 40 mg PO DAILY #30 tabs 06/19/25 Unknown Rx melatonin 5 mg tablet 10 mg (2 x 5 mg) PO QHS #90 tabs 06/19/25 Unknown Rx spironolactone 25 mg tablet 25 mg PO DAILY #90 tabs 06/19/25 Unknown Rx budesonide-formoterol HFA 160 2 inh inhalation DAILY asthma #3 ea 07/17/25 Unknown Rx mcg-4.5 mcg/actuation aerosol inhaler (Symbicort) losartan 25 mg tablet 25 mg PO QDAY #90 tabs 07/17/25 Unknown Rx tiotropium bromide 1.25 2 puff inhalation QAM #4 grams 07/17/25 Unknown Rx mcg/actuation mist for inhalation (Spiriva Respimat) plecanatide 3 mg tablet (Trulance) 3 mg PO QDAY #30 tabs 08/03/25 Unknown Rx albuterol sulfate 90 mcg/actuation 2 puff inhalation Q4H PRN 08/17/25 Unknown Rx aerosol inhaler shortness of breath or wheezing #8.5 grams cholecalciferol (vitamin D3) 50 50 mcg PO QAM #90 caps 08/17/25 Unknown Rx mcg (2,000 unit) capsule cyanocobalamin (vitamin B-12) 500 500 mcg PO DAILY #90 tabs 08/17/25 Unknown Rx mcg tablet levothyroxine 50 mcg tablet 50 mcg PO DAILY for disorder of 08/17/25 Unknown Rx thyroid gland #90 tabs loratadine 10 mg tablet 10 mg PO QHS for allergies #90 tabs 08/17/25 Unknown Rx montelukast 10 mg tablet 10 mg PO QHS for allergies #90 tabs 08/17/25 Unknown Rx Allergy/AdvReac Type Severity Reaction Status Date / Time adhesive tape Allergy Rash Verified 08/18/25 17:43 atropine sulfate (From Allergy Hives Verified 08/18/25 17:43 ) codeine phosphate (From Allergy breathing Verified 08/18/25 17:43 Tylenol-Codeine #3) problems divalproex sodium (From Allergy Unknown Verified 08/18/25 17:43 Depakote) guaifenesin Allergy Itching Verified 08/18/25 17:43 hydrocodone Allergy Itching Verified 08/18/25 17:43 hydromorphone HCl (From Allergy facial Verified 08/18/25 17:43 Dilaudid) blisters,itching hyoscyamine sulfate (From Allergy Hives Verified 08/18/25 17:43 ) latex Allergy Rash Verified 08/18/25 17:43 pantoprazole sodium (From Allergy Rash Verified 08/18/25 17:43 Protonix) phenobarbital (From ) Allergy Hives Verified 08/18/25 17:43 promethazine HCl (From Allergy Anaphylaxis Verified 08/18/25 17:43 Phenergan) ramipril Allergy Unknown Verified 08/18/25 17:43 scopolamine hydrobromide Allergy Hives Verified 08/18/25 17:43 (From ) tramadol Allergy Itching Verified 08/18/25 17:43 ziprasidone mesylate (From Allergy Unknown Verified 08/18/25 17:43 Geodon) amlodipine AdvReac Vomiting Verified 08/18/25 17:43 levofloxacin (From Levaquin) AdvReac Itching Verified 08/18/25 17:43 metoclopramide (From Reglan) AdvReac Other Verified 08/18/25 17:43 Sulfa (Sulfonamide AdvReac Vomiting Verified 08/18/25 17:43 Antibiotics) ziprasidone HCl (From Geodon) AdvReac tremors Verified 08/18/25 17:43 Family History Sister Myocardial infarction Colon cancer Mother Hypertension Arthritis Brain aneurysm Heart disease High cholesterol Sister Colon cancer Heart disease High cholesterol Hypertension Arthritis Grandmother Arthritis Diabetes CVA (cerebral vascular accident) Father Heart disease High cholesterol Hypertension Surgical History History of back surgery (~12/2023) Previous back surgery Cataract extraction status History of esophagogastroduodenoscopy (EGD) Hx of colonoscopy History of laparoscopic cholecystectomy History of uterine suspension procedure S/P carpal tunnel release bladder sling left foot Social History household members: friend(s) number of children: 4 current occupational status: unemployed history of recent travel: No Smoking Status: Former smoker quit date: 11/12/23 Tobacco: How many years used: 26 Electronic Cigarette Use: not used quit status: considering quitting alcohol intake: never substance use type: does not use caffeine: Yes Type: coffee what type of physical activity do you participate in: none seatbelt use: never do you feel safe at home: Yes additional social history: single ROS ROS ED Constitutional Constitutional ED: Denies chills or fever(s) Eyes Eyes: Denies blurry vision or change in vision ENT ENT ED: Reports rhinorrhea and sore throat Cardiovascular Cardiovascular: Denies chest pain or palpitations Respiratory/Chest Respiratory/Chest: Denies cough or dyspnea Gastrointestinal Gastrointestinal: Reports nausea; Denies vomiting Genitourinary Genitourinary ED: Denies dysuria or hematuria Musculoskeletal Musculoskeletal: Denies back pain or neck pain Integumentary Denies abscess or rash Neurologic Neurologic: Denies headache(s) or weakness Allergic/Immunologic Allergic/Immunologic ED: Denies mouth swelling or urticaria EXAM Physical Exam Const Vital Signs: 08/18/25 17:43 08/18/25 17:55 08/18/25 19:41 Temperature 97.4 F L Temperature Source Temporal Pulse Rate 77 77 Respiratory Rate 16 27 H Respiratory Effort Normal Non-Labored Respiratory Pattern Normal Blood Pressure 147/91 H Blood Pressure Mean 109 Pulse Ox 100 98 Oxygen Delivery Method Room Air Room Air 08/18/25 20:24 Temperature Temperature Source Pulse Rate 65 Respiratory Rate 12 Respiratory Effort Respiratory Pattern Blood Pressure 125/67 H Blood Pressure Mean 86 Pulse Ox 98 Oxygen Delivery Method Room Air Positive well nourished and well developed General Appearance ED: well developed and NAD HEENT Reports moist mucous membranes HEENT Narrative: Oropharynx is clear. Airway is patent. There is some mild postnasal drainage. There is no foreign body noted. Neck supple and no JVD Neck Narrative: There is mild tenderness over the anterior neck. There is no anterior neck swelling. There is no sublingual edema. General: tenderness Resp normal respiratory effort and clear to auscultation bilaterally Cardio regular rate and regular rhythm GI non-tender and non-distended Palpation: soft Neuro oriented x3, CN's II-XII intact bilaterally and no sensory deficits noted Sensorium / Orientation: alert Motor Exam: strength 5/5 throughout Psych mental status grossly normal MDM MDM MDM Narrative Medical decision making narrative: Differential diagnose includes esophageal abrasion, esophageal foreign body, and esophageal food impaction. X-rays of the soft tissue neck will be obtained to assess for radiopaque foreign body. Radiography Diagnostic Testing: Clinical Impression(s) from Imaging Studies Soft Tissue Neck X-Ray 08/18/25 19:43 IMPRESSION: Unremarkable neck soft tissues. No radiopaque foreign body is seen. Reading Location: [facility] Soft tissue neck x-rays were obtained. There are 2 views. On my independent interpretation, there is no radiopaque foreign body. There is no soft tissue swelling noted. Radiologist also interpreted the x-rays and agrees. Treatment and Re-Evaluation :: Patient was given IV fluids. Patient was given a dose of glucagon here. Patient had no relief with that. Patient was given a GI cocktail. Patient felt better after this. Patient was instructed to start with a liquid diet and advance as tolerated. Patient was instructed to follow-up with her primary care physician in 5 to 7 days. Patient was instructed to return if worse in any way. Patient understood and was agreeable with the plan. All questions were answered. Discharge Plan Triage Chief Complaint: Foreign Body ED Provider: Facundo Nolen Dx/Rx/DC Orders Clinical Impression: Dysphagia Instructions: ED Esophageal Foreign Body, Resolved, ED Dysphagia (Adult) Prescriptions: No Action acetaminophen 325 mg capsule 325 mg PO Q4H PRN (Reason: pain) hydroxyzine pamoate 100 mg capsule 100 mg PO QHS lactulose [Enulose] 10 gram/15 mL solution 30 ml PO DAILY Qty: 473 0RF Patient Comments: [NO ORIGINAL SIG] Nucala 100 mg/mL syringe 100 mg subcut Q4W Qty: 1 11RF tramadol 50 mg tablet 50 mg PO BID PRN (Reason: pain) cyanocobalamin (vitamin B-12) 1,000 mcg/mL solution 1,500 mcg IM QMONTH Ingrezza 40 mg capsule 40 mg PO QDAY hydrocortisone [Anti-Itch (HC)] 1 % ointment 1 applic topical BID PRN (Reason: itching) Qty: 28.35 0RF aripiprazole 15 mg tablet 15 mg PO DAILY trazodone 100 mg tablet 100 mg PO QHS cyclosporine [Restasis] 0.05 % dropperette 1 drp ophthalmic (eye) Q12H Patient Comments: [NO ORIGINAL SIG] baclofen 5 mg tablet 5 mg PO 3XD polyethylene glycol 3350 17 gram/dose powder 17 g PO QDAY PRN (Reason: constipation) Qty: 850 1RF lidocaine 5 % adhesive patch,medicated 3 patch topical Q24H Qty: 30 0RF Rx Instructions: APPLY ONE PATCH TO PAINFUL AREA FOR UP TO 12 HOURS, THEN REMOVE FOR 12 HOURS nitroglycerin 0.4 mg tablet, sublingual 0.4 mg SUBLINGUAL PRN PRN (Reason: CHEST PAIN) Qty: 25 3RF carvedilol 3.125 mg tablet 3.125 mg PO BID Qty: 60 11RF Eliquis 5 mg tablet 5 mg PO BID Qty: 60 11RF amitriptyline 25 mg tablet 25 mg PO QHS Qty: 30 4RF omeprazole 40 mg capsule,delayed release(DR/EC) 40 mg PO BID Qty: 120 2RF prochlorperazine maleate 5 mg tablet 5 mg PO TID PRN (Reason: nausea and vomiting) 30 Days Qty: 90 4RF ondansetron HCl 4 mg tablet 4 mg PO Q6H PRN (Reason: nausea and vomiting) Qty: 30 2RF furosemide 40 mg tablet 40 mg PO DAILY Qty: 30 5RF spironolactone 25 mg tablet 25 mg PO DAILY Qty: 90 0RF melatonin 5 mg tablet 10 mg PO QHS Qty: 90 1RF losartan 25 mg tablet 25 mg PO QDAY Qty: 90 3RF budesonide-formoterol [Symbicort] 160-4.5 mcg/actuation HFA aerosol inhaler 2 inh inhalation DAILY Qty: 3 3RF Spiriva Respimat 1.25 mcg/actuation mist 2 puff inhalation QAM Qty: 4 11RF Trulance 3 mg tablet 3 mg PO QDAY Qty: 30 3RF levothyroxine 50 mcg tablet 50 mcg PO DAILY Qty: 90 0RF montelukast 10 mg tablet 10 mg PO QHS Qty: 90 0RF cyanocobalamin (vitamin B-12) 500 mcg tablet 500 mcg PO DAILY Qty: 90 0RF cholecalciferol (vitamin D3) 50 mcg (2,000 unit) capsule 50 mcg PO QAM Qty: 90 0RF loratadine 10 mg tablet 10 mg PO QHS Qty: 90 0RF albuterol sulfate 90 mcg/actuation HFA aerosol inhaler 2 puff inhalation Q4H PRN (Reason: shortness of breath or wheezing) Qty: 8.5 6RF Rx Instructions: administer with spacer Primary Care Provider: Elizabeth Santamaria Referrals: Elizabeth Santamaria MD [Primary Care Provider, Internal Medicine] - 5-7 Days Print Language: Polish Disposition Disposition: Home, Self Care
[2025-08-18] MEDS: Glucagon 1 MG/ML Syringe IV (19:19)
[2025-08-18 19:41] VITALS: PULSE 77; RESP 27; O2SAT 98
--- NOTE | 2025-08-18 19:43 | RAD_ITS ---
PROCEDURE: RAD/Neck for Soft Tissue
[2025-08-18] MEDS: Lidocaine 2% Viscous15 ML UDC 15 ML PO (20:18)
[2025-08-18] MEDS: 0.9% Normal Saline (1000mL) 1,000 ML 1000 ML IV (20:18)
[2025-08-18 20:24] VITALS: BP 125/67; PULSE 65; RESP 12; O2SAT 98
[2025-08-18 21:21] VITALS: BP 163/74; PULSE 70; RESP 18; TEMP 36.8; O2SAT 100
== END 2025-08-18 21:23 | disposition home or self-care (01) ==
PROVIDERS: Emergency Provider Emergency Medicine; PCP Internal Medicine; Visit Provider Emergency Medicine
DX: R13.10 Dysphagia, unspecified (principal); I13.0 Hypertensive heart and chronic kidney disease with heart failure and stage 1 through stage 4 chronic kidney disease, or unspecified chronic kidney disease; I50.9 Heart failure, unspecified; N18.9 Chronic kidney disease, unspecified; E78.00 Pure hypercholesterolemia, unspecified; G47.33 Obstructive sleep apnea (adult) (pediatric); Z79.01 Long term (current) use of anticoagulants; Z79.890 Hormone replacement therapy; Z79.899 Other long term (current) drug therapy; Z87.891 Personal history of nicotine dependence; Z86.711 Personal history of pulmonary embolism
CPT/HCPCS: 70360; 96361; 96374; 99282; A4216; J1610

== ENCOUNTER 2025-08-21 11:49 | Day surgery (SDC) | payer MEDICAID, SELFPAY ==
[2025-08-21] VITALS (13 sets, daily range): BP systolic 99–149; BP diastolic 55–93; PULSE 69–95; RESP 14–18; TEMP 36.4–36.9; O2SAT 94–100; BMI 43.6; BMI 44.2
--- NOTE | 2025-08-21 12:55 | ED.RN ---
pt having food getting stuck and she is bringing it right back up since sunday. pt was eating meat, since has had trouble with everything but water.
--- NOTE | 2025-08-21 13:38 | CT_ITS ---
PROCEDURE: SOFT TISSUE NECK WITH CONTRAST 08/21/2025 REASON FOR EXAM: DYSPHAGIA FB SENSATION TECHNIQUE: Procedure Code: CTNEW Modality: CT Procedure: SOFT TISSUE NECK WITH CONTRAST CONTRAST: Isovue-300 VOLUME: 100 mL One or more dose reduction techniques were used (e.g., Automated exposure control, adjustment of the mA and/or kV according to patient size, use of iterative reconstruction technique). RADIATION DOSE SUMMARY: CTDlvol: 19.92 mGy DLP: 557.34 mGycm COMPARISON: None FINDINGS: In the proximal esophagus suggest distal to its origin, there is evidence of residual food particles or ingested food material with a 19.2 mm by 9.8 mm radiopacity within it suggestive of radiopaque foreign body most likely a piece of bone. Airway: Midline and patent. Salivary glands: Fatty replacement of the parotid glands. Lymph nodes: No cervical lymphadenopathy. Thyroid: Unremarkable. Vasculature: Mild calcified plaque of the carotid arteries. Orbits: Unremarkable at visualized levels. Paranasal sinuses and mastoids: Grossly clear at visualized levels. Lung apices: Clear. Upper mediastinum: Visualized mediastinum is unremarkable. Bones: Multilevel degenerative changes of the spine. Other: CT/Soft Tissue Neck WITH Contrast IMPRESSION: Findings in keeping with a foreign body in the proximal esophagus with retained food particles as described. Reading Location: [id number]
--- NOTE | 2025-08-21 13:43 | EX.ED.DYSGE1 ---
HPI History of Present Illness Chief Complaint: Foreign Body Informant: patient Narrative Narrative: 60-year-old female presenting to the emergency room with difficulty swallowing. Patient states that several days ago she choked on a pork chop. Since that she has had pain in her throat. She states she was seen in the emergency room and had an x-ray. She states that she was given a GI cocktail and felt it go down towards her epigastrium. She has not had anything to eat since then. She states that today she tried to take her pills with some applesauce and could not get the second pill down. She states that she has developed a cough with some sputum production. Her right ear hurts. Patient's prior ED visit and medical history is reviewed. She states that she has had a prior stroke greater than 5 years ago that has left her with some problems swallowing. She does not recall having had a swallow study. [facility] Medical History On home oxygen therapy Irregular heart beat Atrial fibrillation Myocardial infarct Acute dyspnea Influenza A COVID-19 Altered mental status Stroke-like symptoms Chronic anticoagulation AF (paroxysmal atrial fibrillation) Acute right-sided weakness PONV (postoperative nausea and vomiting) Adult failure to thrive Contusion of hip Back contusion Difficulty in walking Impingement of left shoulder Enchondroma of left humerus History of Holter monitoring Loss of hearing Wears glasses Bipolar disorder History of steroid therapy History of renal disease Restless legs Sleep apnea Chronic cough History of skin cancer Disease of gingiva due to infection COVID-19 virus infection Degenerative tear of meniscus of left knee Osteoarthritis of left knee Cyclic vomiting syndrome Colitis Pain of left calf Kidney disease Sarcoidosis Morbid obesity Debility Myositis Stroke/cerebrovascular accident TIA (transient ischemic attack) History of atrial fibrillation Chest pain Diarrhea Bilateral flank pain Dysuria Oral candidiasis Abdominal pain Bilateral foot pain Venous insufficiency of both lower extremities History of abnormal cervical Pap smear Wears dentures Post-menopausal Cancer Marijuana use Open wound Thyroid disease Walker as ambulation aid Arthritis Bladder disease High cholesterol Easy bruising Excessive bleeding Back pain Injury of head and neck Blackout Syncope Seizures Dietary restriction Difficulty chewing History of hiatal hernia History of ulceration History of IBS Gastric reflux Smoker CPAP (continuous positive airway pressure) dependence Shortness of breath on exertion Leg cramps History of edema History of echocardiogram Hx of tilt table evaluation History of stress test Cardiology follow-up encounter History of CHF (congestive heart failure) Family history of colon cancer Allergic rhinitis Osteoarthritis of right hip Nonrheumatic aortic (valve) insufficiency Non-rheumatic mitral regurgitation Intertriginous dermatitis associated with moisture Psychosis Orthostatic hypotension Osteoarthritis DAPHNE (obstructive sleep apnea) Schizo NEC, chrn/exacerb Peripheral artery disease Pulmonary embolism Stroke Hypothyroidism HTN (hypertension) PAF (paroxysmal atrial fibrillation) Hypokalemia Hyponatremia Arthralgia of right hip Hip dislocation, right Enlarged aorta CKD (chronic kidney disease) Bipolar 1 disorder Cyst Non-convulsive status epilepticus Migraines Asthma Aortic valve insufficiency Hypertensive crisis without congestive heart failure Left arm swelling Conversion disorder with abnormal movement Gastritis Convulsion, non-epileptic Schizophrenia Depression Home Medications Medication Instructions Recorded Last Taken Type acetaminophen 325 mg capsule 325 mg PO Q4H PRN pain 01/04/24 03/24/24 History aripiprazole 15 mg tablet 15 mg PO DAILY bipolar 01/11/24 11/07/24 History trazodone 100 mg tablet 100 mg PO QHS sleep 01/11/24 11/06/24 History polyethylene glycol 3350 17 17 g PO QDAY PRN constipation #850 05/14/24 Unknown Rx gram/dose oral powder grams hydroxyzine pamoate 100 mg capsule 100 mg PO QHS 05/21/24 11/06/24 History baclofen 5 mg tablet 5 mg PO 3XD 11/07/24 11/07/24 History cyclosporine 0.05 % eye drops in a 1 drp ophthalmic (eye) Q12H 11/07/24 Unknown History dropperette (Restasis) lidocaine 5 % topical patch 3 patch topical Q24H pain #30 ea 11/17/24 Unknown Rx nitroglycerin 0.4 mg sublingual 0.4 mg sublingual PRN PRN CHEST 01/22/25 Unknown Rx tablet PAIN #25 tabs carvedilol 3.125 mg tablet 3.125 mg PO BID #60 TABLETS 02/26/25 Unknown Rx lactulose 10 gram/15 mL oral 30 ml PO DAILY #473 mL 03/31/25 Unknown Rx solution (Enulose) mepolizumab 100 mg/mL subcutaneous 100 mg subcut Q4W #1 mL 04/21/25 Unknown Rx syringe (Nucala) amitriptyline 25 mg tablet 25 mg PO QHS #30 tabs 04/28/25 Unknown Rx apixaban 5 mg tablet (Eliquis) 5 mg PO BID #60 tabs 04/28/25 Unknown Rx omeprazole 40 mg capsule,delayed 40 mg PO BID #120 caps 05/11/25 Unknown Rx release prochlorperazine maleate 5 mg 5 mg PO TID PRN nausea and 05/13/25 Unknown Rx tablet vomiting 30 days #90 tabs ondansetron HCl 4 mg tablet 4 mg PO Q6H PRN nausea and 05/26/25 Unknown Rx vomiting #30 tabs cyanocobalamin (vitamin B-12) 1,500 mcg IM QMONTH 06/01/25 Unknown History 1,000 mcg/mL injection solution hydrocortisone 1 % topical 1 applic topical BID PRN itching 06/01/25 Unknown Rx ointment (Anti-Itch #28.35 grams (hydrocortisone)) valbenazine 40 mg capsule 40 mg PO QDAY 06/01/25 Unknown History (Ingrezza) tramadol 50 mg tablet 50 mg PO BID PRN pain 06/03/25 Unknown History furosemide 40 mg tablet 40 mg PO DAILY #30 tabs 06/19/25 Unknown Rx melatonin 5 mg tablet 10 mg (2 x 5 mg) PO QHS #90 tabs 06/19/25 Unknown Rx spironolactone 25 mg tablet 25 mg PO DAILY #90 tabs 06/19/25 Unknown Rx budesonide-formoterol HFA 160 2 inh inhalation DAILY asthma #3 ea 07/17/25 Unknown Rx mcg-4.5 mcg/actuation aerosol inhaler (Symbicort) losartan 25 mg tablet 25 mg PO QDAY #90 tabs 07/17/25 Unknown Rx tiotropium bromide 1.25 2 puff inhalation QAM #4 grams 07/17/25 Unknown Rx mcg/actuation mist for inhalation (Spiriva Respimat) plecanatide 3 mg tablet (Trulance) 3 mg PO QDAY #30 tabs 08/03/25 Unknown Rx albuterol sulfate 90 mcg/actuation 2 puff inhalation Q4H PRN 08/17/25 Unknown Rx aerosol inhaler shortness of breath or wheezing #8.5 grams cholecalciferol (vitamin D3) 50 50 mcg PO QAM #90 caps 08/17/25 Unknown Rx mcg (2,000 unit) capsule cyanocobalamin (vitamin B-12) 500 500 mcg PO DAILY #90 tabs 08/17/25 Unknown Rx mcg tablet levothyroxine 50 mcg tablet 50 mcg PO DAILY for disorder of 08/17/25 Unknown Rx thyroid gland #90 tabs loratadine 10 mg tablet 10 mg PO QHS for allergies #90 tabs 08/17/25 Unknown Rx montelukast 10 mg tablet 10 mg PO QHS for allergies #90 tabs 08/17/25 Unknown Rx Allergy/AdvReac Type Severity Reaction Status Date / Time adhesive tape Allergy Rash Verified 08/21/25 11:52 atropine sulfate (From Allergy Hives Verified 08/21/25 11:52 ) codeine phosphate (From Allergy "breathing Verified 08/21/25 11:52 Tylenol-Codeine #3) problems" divalproex sodium (From Allergy Unknown Verified 08/21/25 11:52 Depakote) guaifenesin Allergy Itching Verified 08/21/25 11:52 hydrocodone Allergy Itching Verified 08/21/25 11:52 hydromorphone HCl (From Allergy facial Verified 08/21/25 11:52 Dilaudid) blisters,itching hyoscyamine sulfate (From Allergy Hives Verified 08/21/25 11:52 ) latex Allergy Rash Verified 08/21/25 11:52 pantoprazole sodium (From Allergy Rash Verified 08/21/25 11:52 Protonix) phenobarbital (From ) Allergy Hives Verified 08/21/25 11:52 promethazine HCl (From Allergy Anaphylaxis Verified 08/21/25 11:52 Phenergan) ramipril Allergy Unknown Verified 08/21/25 11:52 scopolamine hydrobromide Allergy Hives Verified 08/21/25 11:52 (From ) tramadol Allergy Itching Verified 08/21/25 11:52 ziprasidone mesylate (From Allergy Unknown Verified 08/21/25 11:52 Geodon) amlodipine AdvReac Vomiting Verified 08/21/25 11:52 levofloxacin (From Levaquin) AdvReac Itching Verified 08/21/25 11:52 metoclopramide (From Reglan) AdvReac Other Verified 08/21/25 11:52 Sulfa (Sulfonamide AdvReac Vomiting Verified 08/21/25 11:52 Antibiotics) ziprasidone HCl (From Geodon) AdvReac tremors Verified 08/21/25 11:52 Family History Sister Myocardial infarction Colon cancer Mother Hypertension Arthritis Brain aneurysm Heart disease High cholesterol Sister Colon cancer Heart disease High cholesterol Hypertension Arthritis Grandmother Arthritis Diabetes CVA (cerebral vascular accident) Father Heart disease High cholesterol Hypertension Surgical History History of back surgery (~12/2023) Previous back surgery Cataract extraction status History of esophagogastroduodenoscopy (EGD) Hx of colonoscopy History of laparoscopic cholecystectomy History of uterine suspension procedure S/P carpal tunnel release bladder sling left foot Social History household members: friend(s) number of children: 4 current occupational status: unemployed history of recent travel: No Smoking Status: Former smoker quit date: 11/12/23 Tobacco: How many years used: 26 Electronic Cigarette Use: not used quit status: considering quitting alcohol intake: never substance use type: does not use caffeine: Yes Type: coffee what type of physical activity do you participate in: none seatbelt use: never do you feel safe at home: Yes additional social history: single ROS ROS ED Constitutional Constitutional ED: Denies chills, fever(s) or weight loss Eyes Eyes: Denies change in vision or diplopia ENT ENT ED: Reports ear pain and sore throat; Denies rhinorrhea Cardiovascular Cardiovascular: Denies chest pain, orthopnea, palpitations or racing heartbeat Respiratory/Chest Respiratory/Chest: Reports cough and sputum; Denies dyspnea or orthopnea Gastrointestinal Gastrointestinal: Denies abdominal pain, diarrhea, nausea or vomiting Genitourinary Genitourinary ED: Denies dysuria, hematuria or urinary frequency Musculoskeletal Musculoskeletal: Denies arthralgias or myalgias Integumentary Denies abscess or rash Neurologic Neurologic: Denies headache(s) or weakness Psychiatric Psychiatric: Denies anxiety, depression, suicidal ideation or suicidal thoughts Endocrine Endocrinology: Denies polydipsia, polyphagia or polyuria Allergic/Immunologic Allergic/Immunologic ED: Denies mouth swelling, tongue swelling or urticaria EXAM Physical Exam Narrative Exam Narrative: Patient is laying down in the bed on her left side. She is not drooling. I do not appreciate any stridor. She is handling her secretions normally. Const Vital Signs: 08/21/25 11:50 08/21/25 12:54 08/21/25 14:08 Temperature 98.2 F Temperature Source Oral Pulse Rate 95 78 Respiratory Rate 18 14 Respiratory Pattern Normal Blood Pressure 148/92 H 126/64 H Blood Pressure Mean 110 84 Pulse Ox 98 98 Oxygen Delivery Method Room Air Room Air Positive well nourished, well developed and obese General Appearance ED: well developed and NAD Nutritional Appearance: obese HEENT Reports normocephalic, head/scalp atraumatic and moist mucous membranes HEENT Narrative: There is cerumen in the right ear with a anterior-inferior canal abrasion. No active bleeding. No obvious foreign bodies. Oropharyngeal exam does not demonstrate any cobblestoning of the posterior pharynx. No significant erythema follow-up with petechiae or obvious abscess (retropharyngeal peritonsillar). Eyes PERRL and EOMs intact bilaterally Neck no lymphadenopathy, supple and no JVD Resp normal respiratory effort and clear to auscultation bilaterally Resp Narrative: There is a moist cough. Cardio regular rate, regular rhythm and no murmurs GI normal to inspection, nondistended, normoactive bowel sounds and non-tender Palpation: soft Back/Spine no CVA tenderness and normal ROM Extremity normal to inspection General Extremety ED: Negative for edema General Extremity: Negative for edema Neuro oriented x3 and CN's II-XII intact bilaterally Sensorium / Orientation: alert Motor Exam: strength 5/5 throughout Psych mental status grossly normal Mood & Affect: Negative for depressed or tearful Skin no rashes or lesions noted and no wounds MDM MDM MDM Narrative Medical decision making narrative: Differential diagnosis includes but not limited to pharyngeal and laryngeal abrasion malignancy dysphagia esophageal food impaction epiglottitis dehydration conversion disorder Basic blood work shows a white count of 12.1 hemoglobin of 16.2 platelet count of 202. Glucose of 91 creatinine 1.43. Chest x-ray is obtained and is negative for acute findings. CT of the neck with IV contrast obtained this was read by radiology reviewed by myself. This is concerning for possible foreign body in the proximal esophagus with a bone. 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 Irving who will plan on endoscopy tonight. History & Record Review Discussion w/independent historian: Patient Additional record(s) reviewed:: Prior ED visit Lab Data Attestation: I reviewed the patient's lab results. Labs: Laboratory Results - last 24 hr 08/21/25 14:05 WBC 12.1 H RBC 5.23 Hgb 16.2 H Hct 46.3 MCV 88.5 MCH 31.0 MCHC 35.0 RDW Std Deviation 42.5 RDW Coeff of Yonathan 13.1 Plt Count 202 MPV 10.7 Immature Gran % (Auto) 0.500 Neut % (Auto) 82.6 H Lymph % (Auto) 9.8 L [place] % (Auto) 6.7 Eos % (Auto) 0.2 Baso % (Auto) 0.2 Absolute Neuts (auto) 10.0 H Absolute Lymphs (auto) 1.18 Nucleated RBC % 0 Sodium 134 Potassium 4.3 Chloride 96 L Carbon Dioxide 24.6 Anion Gap 13 BUN 14 Creatinine 1.43 H Estim Creat Clear Calc 49.65 L Est GFR (MDRD) Non-Af 42 L BUN/Creatinine Ratio 10.0 Glucose 91 Calcium 9.8 Radiography Diagnostic Testing: Clinical Impression(s) from Imaging Studies Soft Tissue Neck CT 08/21/25 13:38 IMPRESSION: Findings in keeping with a foreign body in the proximal esophagus with retained food particles as described. Reading Location: [id number] Chest X-Ray 08/21/25 15:25 IMPRESSION: Stable mild increased markings at the lung base suggestive of mild bibasilar scarring and scattered calcified granulomas. Reading Location: [id number] Management Discussion w/another healthcare provider: [employer]agon [employer] (Dr. Irving (gastroenterology)) Discharge Plan Dx/Rx/DC Orders Clinical Impression: Food impaction of esophagus Disposition Disposition: Acute Care Hospital [facility]
[2025-08-21 14:14] LABS: Hematocrit 46.3 % (37-47); Hemoglobin 16.2 g/dL (12.0-15.0); Immature Granulocytes Count 0.060 X10^3/uL (0.0-0.0); Mean Corp Hgb Conc 35.0 g/dL (32-36); Mean Corpuscular Volume 88.5 fL (81-99); Mean Platelet Vol. 10.7 fl (6.2-12.0); NRBC Flagged by Analyzer 0 % (0-5); POSITIVE MORPHOLOGY YES; Platelet Count 202 K/mm3 (150-450); RBC Distribution Width CV 13.1 % (11.6-14.6); RBC Distribution Width SD 42.5 fl (35.1-43.9); Red Blood Count 5.23 M/mm3 (4.2-5.4); White Blood Count 12.1 K/mm3 (4.4-11.0)
[2025-08-21 14:33] LABS: Differential Indicated SCAN CRITERIA MET
[2025-08-21 14:57] LABS: Anion Gap 13 (5-15); BUN 14 mg/dL (4-19); BUN/Creat Ratio 10.0 RATIO (10-20); Calcium,Total 9.8 mg/dL (7.6-11.0); Carbon Dioxide 24.6 mmol/L (21.0-32.0); Chloride 96 mmol/L (98-108); Estimated Creatinine Clearance 49.65 ml/min (50-250); Glucose 91 mg/dL (70-99); Potassium 4.3 mmol/L (3.3-5.1)
--- NOTE | 2025-08-21 15:25 | RAD_ITS ---
PROCEDURE: CHEST PA AND LATERAL 08/21/2025 REASON FOR EXAM: COUGH TECHNIQUE: Procedure Code: RADCXR Modality: DX Procedure: CHEST PA AND LATERAL COMPARISON: November 08, 2024. FINDINGS: Hardware: None Heart: Heart size is mildly enlarged. Mediastinum: The mediastinal contour is unremarkable. Lungs: Stable mild increased linear markings at the lung bases suggestive of mild basilar scarring. Scattered calcified granulomas. Bones: Degenerative changes are identified within the thoracic spine. RAD/Chest PA and Lateral IMPRESSION: Stable mild increased markings at the lung base suggestive of mild bibasilar sc arring and scattered calcified granulomas. Reading Location: [facility]
--- NOTE | 2025-08-21 16:40 | PCM.HP.STD ---
HPI - General General Date of Admission: 08/21/25 Date of Service: 08/21/25 Chief Complaint: Esophageal foreign body HPI Narrative NIGHAT TIMMONS, is a 60 F who presents [ 60-year-old female presenting to the emergency room with difficulty swallowing (dysphagia) and throat pain (odynophagia). The patient reports choking on a pork chop several days ago, which initiated the throat pain. She has not eaten solid food since the incident. Today, she attempted to take her medications with applesauce but was unable to swallow the second pill. Relevant history includes atrial fibrillation managed with Eliquis and a stroke over five years ago that resulted in pre-existing mild swallowing difficulties.] [facility] Medical History On home oxygen therapy Irregular heart beat Atrial fibrillation Myocardial infarct Acute dyspnea Influenza A COVID-19 Altered mental status Stroke-like symptoms Chronic anticoagulation AF (paroxysmal atrial fibrillation) Acute right-sided weakness PONV (postoperative nausea and vomiting) Adult failure to thrive Contusion of hip Back contusion Difficulty in walking Impingement of left shoulder Enchondroma of left humerus History of Holter monitoring Loss of hearing Wears glasses Bipolar disorder History of steroid therapy History of renal disease Restless legs Sleep apnea Chronic cough History of skin cancer Disease of gingiva due to infection COVID-19 virus infection Degenerative tear of meniscus of left knee Osteoarthritis of left knee Cyclic vomiting syndrome Colitis Pain of left calf Kidney disease Sarcoidosis Morbid obesity Debility Myositis Stroke/cerebrovascular accident TIA (transient ischemic attack) History of atrial fibrillation Chest pain Diarrhea Bilateral flank pain Dysuria Oral candidiasis Abdominal pain Bilateral foot pain Venous insufficiency of both lower extremities History of abnormal cervical Pap smear Wears dentures Post-menopausal Cancer Marijuana use Open wound Thyroid disease Walker as ambulation aid Arthritis Bladder disease High cholesterol Easy bruising Excessive bleeding Back pain Injury of head and neck Blackout Syncope Seizures Dietary restriction Difficulty chewing History of hiatal hernia History of ulceration History of IBS Gastric reflux Smoker CPAP (continuous positive airway pressure) dependence Shortness of breath on exertion Leg cramps History of edema History of echocardiogram Hx of tilt table evaluation History of stress test Cardiology follow-up encounter History of CHF (congestive heart failure) Family history of colon cancer Allergic rhinitis Osteoarthritis of right hip Nonrheumatic aortic (valve) insufficiency Non-rheumatic mitral regurgitation Intertriginous dermatitis associated with moisture Psychosis Orthostatic hypotension Osteoarthritis DAPHNE (obstructive sleep apnea) Schizo NEC, chrn/exacerb Peripheral artery disease Pulmonary embolism Stroke Hypothyroidism HTN (hypertension) PAF (paroxysmal atrial fibrillation) Hypokalemia Hyponatremia Arthralgia of right hip Hip dislocation, right Enlarged aorta CKD (chronic kidney disease) Bipolar 1 disorder Cyst Non-convulsive status epilepticus Migraines Asthma Aortic valve insufficiency Hypertensive crisis without congestive heart failure Left arm swelling Conversion disorder with abnormal movement Gastritis Convulsion, non-epileptic Schizophrenia Depression Home Medications Medication Instructions Recorded Last Taken Type acetaminophen 325 mg capsule 325 mg PO Q4H PRN pain 01/04/24 03/24/24 History aripiprazole 15 mg tablet 15 mg PO DAILY bipolar 01/11/24 11/07/24 History trazodone 100 mg tablet 100 mg PO QHS sleep 01/11/24 11/06/24 History polyethylene glycol 3350 17 17 g PO QDAY PRN constipation #850 05/14/24 Unknown Rx gram/dose oral powder grams hydroxyzine pamoate 100 mg capsule 100 mg PO QHS 05/21/24 11/06/24 History baclofen 5 mg tablet 5 mg PO 3XD 11/07/24 11/07/24 History cyclosporine 0.05 % eye drops in a 1 drp ophthalmic (eye) Q12H 11/07/24 Unknown History dropperette (Restasis) lidocaine 5 % topical patch 3 patch topical Q24H pain #30 ea 11/17/24 Unknown Rx nitroglycerin 0.4 mg sublingual 0.4 mg sublingual PRN PRN CHEST 01/22/25 Unknown Rx tablet PAIN #25 tabs carvedilol 3.125 mg tablet 3.125 mg PO BID #60 TABLETS 02/26/25 Unknown Rx lactulose 10 gram/15 mL oral 30 ml PO DAILY #473 mL 03/31/25 Unknown Rx solution (Enulose) mepolizumab 100 mg/mL subcutaneous 100 mg subcut Q4W #1 mL 04/21/25 Unknown Rx syringe (Nucala) amitriptyline 25 mg tablet 25 mg PO QHS #30 tabs 04/28/25 Unknown Rx apixaban 5 mg tablet (Eliquis) 5 mg PO BID #60 tabs 04/28/25 Unknown Rx omeprazole 40 mg capsule,delayed 40 mg PO BID #120 caps 05/11/25 Unknown Rx release prochlorperazine maleate 5 mg 5 mg PO TID PRN nausea and 05/13/25 Unknown Rx tablet vomiting 30 days #90 tabs ondansetron HCl 4 mg tablet 4 mg PO Q6H PRN nausea and 05/26/25 Unknown Rx vomiting #30 tabs cyanocobalamin (vitamin B-12) 1,500 mcg IM QMONTH 06/01/25 Unknown History 1,000 mcg/mL injection solution hydrocortisone 1 % topical 1 applic topical BID PRN itching 06/01/25 Unknown Rx ointment (Anti-Itch #28.35 grams (hydrocortisone)) valbenazine 40 mg capsule 40 mg PO QDAY 06/01/25 Unknown History (Ingrezza) tramadol 50 mg tablet 50 mg PO BID PRN pain 06/03/25 Unknown History furosemide 40 mg tablet 40 mg PO DAILY #30 tabs 06/19/25 Unknown Rx melatonin 5 mg tablet 10 mg (2 x 5 mg) PO QHS #90 tabs 06/19/25 Unknown Rx spironolactone 25 mg tablet 25 mg PO DAILY #90 tabs 06/19/25 Unknown Rx budesonide-formoterol HFA 160 2 inh inhalation DAILY asthma #3 ea 07/17/25 Unknown Rx mcg-4.5 mcg/actuation aerosol inhaler (Symbicort) losartan 25 mg tablet 25 mg PO QDAY #90 tabs 07/17/25 Unknown Rx tiotropium bromide 1.25 2 puff inhalation QAM #4 grams 07/17/25 Unknown Rx mcg/actuation mist for inhalation (Spiriva Respimat) plecanatide 3 mg tablet (Trulance) 3 mg PO QDAY #30 tabs 08/03/25 Unknown Rx albuterol sulfate 90 mcg/actuation 2 puff inhalation Q4H PRN 08/17/25 Unknown Rx aerosol inhaler shortness of breath or wheezing #8.5 grams cholecalciferol (vitamin D3) 50 50 mcg PO QAM #90 caps 08/17/25 Unknown Rx mcg (2,000 unit) capsule cyanocobalamin (vitamin B-12) 500 500 mcg PO DAILY #90 tabs 08/17/25 Unknown Rx mcg tablet levothyroxine 50 mcg tablet 50 mcg PO DAILY for disorder of 08/17/25 Unknown Rx thyroid gland #90 tabs loratadine 10 mg tablet 10 mg PO QHS for allergies #90 tabs 08/17/25 Unknown Rx montelukast 10 mg tablet 10 mg PO QHS for allergies #90 tabs 08/17/25 Unknown Rx Allergy/AdvReac Type Severity Reaction Status Date / Time adhesive tape Allergy Rash Verified 08/21/25 11:52 atropine sulfate (From Allergy Hives Verified 08/21/25 11:52 ) codeine phosphate (From Allergy "breathing Verified 08/21/25 11:52 Tylenol-Codeine #3) problems" divalproex sodium (From Allergy Unknown Verified 08/21/25 11:52 Depakote) guaifenesin Allergy Itching Verified 08/21/25 11:52 hydrocodone Allergy Itching Verified 08/21/25 11:52 hydromorphone HCl (From Allergy facial Verified 08/21/25 11:52 Dilaudid) blisters,itching hyoscyamine sulfate (From Allergy Hives Verified 08/21/25 11:52 ) latex Allergy Rash Verified 08/21/25 11:52 pantoprazole sodium (From Allergy Rash Verified 08/21/25 11:52 Protonix) phenobarbital (From ) Allergy Hives Verified 08/21/25 11:52 promethazine HCl (From Allergy Anaphylaxis Verified 08/21/25 11:52 Phenergan) ramipril Allergy Unknown Verified 08/21/25 11:52 scopolamine hydrobromide Allergy Hives Verified 08/21/25 11:52 (From ) tramadol Allergy Itching Verified 08/21/25 11:52 ziprasidone mesylate (From Allergy Unknown Verified 08/21/25 11:52 Geodon) amlodipine AdvReac Vomiting Verified 08/21/25 11:52 levofloxacin (From Levaquin) AdvReac Itching Verified 08/21/25 11:52 metoclopramide (From Reglan) AdvReac Other Verified 08/21/25 11:52 Sulfa (Sulfonamide AdvReac Vomiting Verified 08/21/25 11:52 Antibiotics) ziprasidone HCl (From Geodon) AdvReac tremors Verified 08/21/25 11:52 Family History Sister Myocardial infarction Colon cancer Mother Hypertension Arthritis Brain aneurysm Heart disease High cholesterol Sister Colon cancer Heart disease High cholesterol Hypertension Arthritis Grandmother Arthritis Diabetes CVA (cerebral vascular accident) Father Heart disease High cholesterol Hypertension Surgical History History of back surgery (~12/2023) Previous back surgery Cataract extraction status History of esophagogastroduodenoscopy (EGD) Hx of colonoscopy History of laparoscopic cholecystectomy History of uterine suspension procedure S/P carpal tunnel release bladder sling left foot Social History household members: friend(s) number of children: 4 current occupational status: unemployed history of recent travel: No Smoking Status: Former smoker quit date: 11/12/23 Tobacco: How many years used: 26 Electronic Cigarette Use: not used quit status: considering quitting alcohol intake: never substance use type: does not use caffeine: Yes Type: coffee what type of physical activity do you participate in: none seatbelt use: never do you feel safe at home: Yes additional social history: single ROS Constitutional Constitutional: Denies fatigue, fever(s), poor appetite, weight gain or weight loss Gastrointestinal Gastrointestinal: Denies belching, bloating, change in bowel habits, change in stool character, chewing difficulty, coffee ground emesis, constipation, cramping, diarrhea, dyspepsia, dysphagia, early satiety, excessive flatus, fecal incontinence, heartburn, hematemesis, hematochezia, hemorrhoids, loose stools, melena, nausea, odynophagia, rectal bleeding, tenesmus, vomiting or weight changes Vital Signs Vital Signs Vital Signs: 08/21/25 11:50 08/21/25 12:54 08/21/25 14:08 Temperature 98.2 F Temperature Source Oral Pulse Rate 95 78 Respiratory Rate 18 14 Respiratory Pattern Normal Blood Pressure 148/92 H 126/64 H Blood Pressure Mean 110 84 Pulse Ox 98 98 Oxygen Delivery Method Room Air Room Air 08/21/25 16:00 Temperature Temperature Source Pulse Rate 71 Respiratory Rate Respiratory Pattern Blood Pressure 145/93 H Blood Pressure Mean 110 Pulse Ox 98 Oxygen Delivery Method Weight Weight: 246 lb 4.101 oz Body Mass Index (BMI) 43.6 Physical Exam Const alert, oriented x3, no apparent distress and healthy appearing General Appearance: cooperative GI normal to inspection, nondistended, normoactive bowel sounds, soft to palpation, non-tender and non-distended Percussion: normal to percussion Rectal Exam: deferred Results Lab / Micro Data 08/21/25 14:05 08/21/25 14:05 Labs: Laboratory Results - last 24 hr 08/21/25 14:05: WBC 12.1 H, RBC 5.23, Hgb 16.2 H, Hct 46.3, MCV 88.5, MCH 31.0, MCHC 35.0, RDW Std Deviation 42.5, RDW Coeff of Yonathan 13.1, Plt Count 202, MPV 10.7, Immature Gran % (Auto) 0.500, Neut % (Auto) 82.6 H, Lymph % (Auto) 9.8 L, Ramsey % (Auto) 6.7, Eos % (Auto) 0.2, Baso % (Auto) 0.2, Absolute Neuts (auto) 10.0 H, Absolute Lymphs (auto) 1.18, Nucleated RBC % 0, Sodium 134, Potassium 4.3, Chloride 96 L, Carbon Dioxide 24.6, Anion Gap 13, BUN 14, Creatinine 1.43 H, Estim Creat Clear Calc 49.65 L, Est GFR (MDRD) Non-Af 42 L, BUN/Creatinine Ratio 10.0, Glucose 91, Calcium 9.8 Imaging Radiology Impression Soft Tissue Neck CT 08/21/25 13:38 IMPRESSION: Findings in keeping with a foreign body in the proximal esophagus with retained food particles as described. Reading Location: [facility] Chest X-Ray 08/21/25 15:25 IMPRESSION: Stable mild increased markings at the lung base suggestive of mild bibasilar scarring and scattered calcified granulomas. Reading Location: [facility] Assessment & Plan Assessment/Plan (1) Food impaction of esophagus: (2) Dysphagia:
--- NOTE | 2025-08-21 16:44 | EX.PCM.CON.G ---
HPI Consult Data Date of Consult: 08/21/25 HPI Narrative Reason for Consultation: Esophageal foreign body HPI Narrative: NIGHAT TIMMONS, is a 60-year-old female presenting to the emergency room with difficulty swallowing (dysphagia) and throat pain (odynophagia). The patient reports choking on a pork chop several days ago, which initiated the throat pain. She has not eaten solid food since the incident. Today, she attempted to take her medications with applesauce but was unable to swallow the second pill. Relevant history includes atrial fibrillation managed with Eliquis and a stroke over five years ago that resulted in pre-existing mild swallowing difficulties. ] [facility] Medical History On home oxygen therapy Irregular heart beat Atrial fibrillation Myocardial infarct Acute dyspnea Influenza A COVID-19 Altered mental status Stroke-like symptoms Chronic anticoagulation AF (paroxysmal atrial fibrillation) Acute right-sided weakness PONV (postoperative nausea and vomiting) Adult failure to thrive Contusion of hip Back contusion Difficulty in walking Impingement of left shoulder Enchondroma of left humerus History of Holter monitoring Loss of hearing Wears glasses Bipolar disorder History of steroid therapy History of renal disease Restless legs Sleep apnea Chronic cough History of skin cancer Disease of gingiva due to infection COVID-19 virus infection Degenerative tear of meniscus of left knee Osteoarthritis of left knee Cyclic vomiting syndrome Colitis Pain of left calf Kidney disease Sarcoidosis Morbid obesity Debility Myositis Stroke/cerebrovascular accident TIA (transient ischemic attack) History of atrial fibrillation Chest pain Diarrhea Bilateral flank pain Dysuria Oral candidiasis Abdominal pain Bilateral foot pain Venous insufficiency of both lower extremities History of abnormal cervical Pap smear Wears dentures Post-menopausal Cancer Marijuana use Open wound Thyroid disease Walker as ambulation aid Arthritis Bladder disease High cholesterol Easy bruising Excessive bleeding Back pain Injury of head and neck Blackout Syncope Seizures Dietary restriction Difficulty chewing History of hiatal hernia History of ulceration History of IBS Gastric reflux Smoker CPAP (continuous positive airway pressure) dependence Shortness of breath on exertion Leg cramps History of edema History of echocardiogram Hx of tilt table evaluation History of stress test Cardiology follow-up encounter History of CHF (congestive heart failure) Family history of colon cancer Allergic rhinitis Osteoarthritis of right hip Nonrheumatic aortic (valve) insufficiency Non-rheumatic mitral regurgitation Intertriginous dermatitis associated with moisture Psychosis Orthostatic hypotension Osteoarthritis DAPHNE (obstructive sleep apnea) Schizo NEC, chrn/exacerb Peripheral artery disease Pulmonary embolism Stroke Hypothyroidism HTN (hypertension) PAF (paroxysmal atrial fibrillation) Hypokalemia Hyponatremia Arthralgia of right hip Hip dislocation, right Enlarged aorta CKD (chronic kidney disease) Bipolar 1 disorder Cyst Non-convulsive status epilepticus Migraines Asthma Aortic valve insufficiency Hypertensive crisis without congestive heart failure Left arm swelling Conversion disorder with abnormal movement Gastritis Convulsion, non-epileptic Schizophrenia Depression Home Medications Medication Instructions Recorded Last Taken Type acetaminophen 325 mg capsule 325 mg PO Q4H PRN pain 01/04/24 03/24/24 History aripiprazole 15 mg tablet 15 mg PO DAILY bipolar 01/11/24 11/07/24 History trazodone 100 mg tablet 100 mg PO QHS sleep 01/11/24 11/06/24 History polyethylene glycol 3350 17 17 g PO QDAY PRN constipation #850 05/14/24 Unknown Rx gram/dose oral powder grams hydroxyzine pamoate 100 mg capsule 100 mg PO QHS 05/21/24 11/06/24 History baclofen 5 mg tablet 5 mg PO 3XD 11/07/24 11/07/24 History cyclosporine 0.05 % eye drops in a 1 drp ophthalmic (eye) Q12H 11/07/24 Unknown History dropperette (Restasis) lidocaine 5 % topical patch 3 patch topical Q24H pain #30 ea 11/17/24 Unknown Rx nitroglycerin 0.4 mg sublingual 0.4 mg sublingual PRN PRN CHEST 01/22/25 Unknown Rx tablet PAIN #25 tabs carvedilol 3.125 mg tablet 3.125 mg PO BID #60 TABLETS 02/26/25 Unknown Rx lactulose 10 gram/15 mL oral 30 ml PO DAILY #473 mL 03/31/25 Unknown Rx solution (Enulose) mepolizumab 100 mg/mL subcutaneous 100 mg subcut Q4W #1 mL 04/21/25 Unknown Rx syringe (Nucala) amitriptyline 25 mg tablet 25 mg PO QHS #30 tabs 04/28/25 Unknown Rx apixaban 5 mg tablet (Eliquis) 5 mg PO BID #60 tabs 04/28/25 Unknown Rx omeprazole 40 mg capsule,delayed 40 mg PO BID #120 caps 05/11/25 Unknown Rx release prochlorperazine maleate 5 mg 5 mg PO TID PRN nausea and 05/13/25 Unknown Rx tablet vomiting 30 days #90 tabs ondansetron HCl 4 mg tablet 4 mg PO Q6H PRN nausea and 05/26/25 Unknown Rx vomiting #30 tabs cyanocobalamin (vitamin B-12) 1,500 mcg IM QMONTH 06/01/25 Unknown History 1,000 mcg/mL injection solution hydrocortisone 1 % topical 1 applic topical BID PRN itching 06/01/25 Unknown Rx ointment (Anti-Itch #28.35 grams (hydrocortisone)) valbenazine 40 mg capsule 40 mg PO QDAY 06/01/25 Unknown History (Ingrezza) tramadol 50 mg tablet 50 mg PO BID PRN pain 06/03/25 Unknown History furosemide 40 mg tablet 40 mg PO DAILY #30 tabs 06/19/25 Unknown Rx melatonin 5 mg tablet 10 mg (2 x 5 mg) PO QHS #90 tabs 06/19/25 Unknown Rx spironolactone 25 mg tablet 25 mg PO DAILY #90 tabs 06/19/25 Unknown Rx budesonide-formoterol HFA 160 2 inh inhalation DAILY asthma #3 ea 07/17/25 Unknown Rx mcg-4.5 mcg/actuation aerosol inhaler (Symbicort) losartan 25 mg tablet 25 mg PO QDAY #90 tabs 07/17/25 Unknown Rx tiotropium bromide 1.25 2 puff inhalation QAM #4 grams 07/17/25 Unknown Rx mcg/actuation mist for inhalation (Spiriva Respimat) plecanatide 3 mg tablet (Trulance) 3 mg PO QDAY #30 tabs 08/03/25 Unknown Rx albuterol sulfate 90 mcg/actuation 2 puff inhalation Q4H PRN 08/17/25 Unknown Rx aerosol inhaler shortness of breath or wheezing #8.5 grams cholecalciferol (vitamin D3) 50 50 mcg PO QAM #90 caps 08/17/25 Unknown Rx mcg (2,000 unit) capsule cyanocobalamin (vitamin B-12) 500 500 mcg PO DAILY #90 tabs 08/17/25 Unknown Rx mcg tablet levothyroxine 50 mcg tablet 50 mcg PO DAILY for disorder of 08/17/25 Unknown Rx thyroid gland #90 tabs loratadine 10 mg tablet 10 mg PO QHS for allergies #90 tabs 08/17/25 Unknown Rx montelukast 10 mg tablet 10 mg PO QHS for allergies #90 tabs 08/17/25 Unknown Rx Allergy/AdvReac Type Severity Reaction Status Date / Time adhesive tape Allergy Rash Verified 08/21/25 11:52 atropine sulfate (From Allergy Hives Verified 08/21/25 11:52 ) codeine phosphate (From Allergy "breathing Verified 08/21/25 11:52 Tylenol-Codeine #3) problems" divalproex sodium (From Allergy Unknown Verified 08/21/25 11:52 Depakote) guaifenesin Allergy Itching Verified 08/21/25 11:52 hydrocodone Allergy Itching Verified 08/21/25 11:52 hydromorphone HCl (From Allergy facial Verified 08/21/25 11:52 Dilaudid) blisters,itching hyoscyamine sulfate (From Allergy Hives Verified 08/21/25 11:52 ) latex Allergy Rash Verified 08/21/25 11:52 pantoprazole sodium (From Allergy Rash Verified 08/21/25 11:52 Protonix) phenobarbital (From ) Allergy Hives Verified 08/21/25 11:52 promethazine HCl (From Allergy Anaphylaxis Verified 08/21/25 11:52 Phenergan) ramipril Allergy Unknown Verified 08/21/25 11:52 scopolamine hydrobromide Allergy Hives Verified 08/21/25 11:52 (From ) tramadol Allergy Itching Verified 08/21/25 11:52 ziprasidone mesylate (From Allergy Unknown Verified 08/21/25 11:52 Geodon) amlodipine AdvReac Vomiting Verified 08/21/25 11:52 levofloxacin (From Levaquin) AdvReac Itching Verified 08/21/25 11:52 metoclopramide (From Reglan) AdvReac Other Verified 08/21/25 11:52 Sulfa (Sulfonamide AdvReac Vomiting Verified 08/21/25 11:52 Antibiotics) ziprasidone HCl (From Geodon) AdvReac tremors Verified 08/21/25 11:52 Family History Sister Myocardial infarction Colon cancer Mother Hypertension Arthritis Brain aneurysm Heart disease High cholesterol Sister Colon cancer Heart disease High cholesterol Hypertension Arthritis Grandmother Arthritis Diabetes CVA (cerebral vascular accident) Father Heart disease High cholesterol Hypertension Surgical History History of back surgery (~12/2023) Previous back surgery Cataract extraction status History of esophagogastroduodenoscopy (EGD) Hx of colonoscopy History of laparoscopic cholecystectomy History of uterine suspension procedure S/P carpal tunnel release bladder sling left foot Social History household members: friend(s) number of children: 4 current occupational status: unemployed history of recent travel: No Smoking Status: Former smoker quit date: 11/12/23 Tobacco: How many years used: 26 Electronic Cigarette Use: not used quit status: considering quitting alcohol intake: never substance use type: does not use caffeine: Yes Type: coffee what type of physical activity do you participate in: none seatbelt use: never do you feel safe at home: Yes additional social history: single ROS Constitutional Constitutional: Denies fatigue, fever(s), poor appetite, weight gain or weight loss Gastrointestinal Gastrointestinal: Denies belching, bloating, change in bowel habits, change in stool character, chewing difficulty, coffee ground emesis, constipation, cramping, diarrhea, dyspepsia, dysphagia, early satiety, excessive flatus, fecal incontinence, heartburn, hematemesis, hematochezia, hemorrhoids, loose stools, melena, nausea, odynophagia, rectal bleeding, tenesmus, vomiting or weight changes Physical Exam Const alert, oriented x3, no apparent distress and healthy appearing General Appearance: cooperative GI normal to inspection, nondistended, normoactive bowel sounds, soft to palpation, non-tender and non-distended Percussion: normal to percussion Rectal Exam: deferred Lab / Micro Data 08/21/25 14:05 08/21/25 14:05 Labs: Laboratory Results - last 24 hr 08/21/25 14:05: WBC 12.1 H, RBC 5.23, Hgb 16.2 H, Hct 46.3, MCV 88.5, MCH 31.0, MCHC 35.0, RDW Std Deviation 42.5, RDW Coeff of Yonathan 13.1, Plt Count 202, MPV 10.7, Immature Gran % (Auto) 0.500, Neut % (Auto) 82.6 H, Lymph % (Auto) 9.8 L, Grant % (Auto) 6.7, Eos % (Auto) 0.2, Baso % (Auto) 0.2, Absolute Neuts (auto) 10.0 H, Absolute Lymphs (auto) 1.18, Nucleated RBC % 0, Sodium 134, Potassium 4.3, Chloride 96 L, Carbon Dioxide 24.6, Anion Gap 13, BUN 14, Creatinine 1.43 H, Estim Creat Clear Calc 49.65 L, Est GFR (MDRD) Non-Af 42 L, BUN/Creatinine Ratio 10.0, Glucose 91, Calcium 9.8 Imaging Radiology Impression Soft Tissue Neck CT 08/21/25 13:38 IMPRESSION: Findings in keeping with a foreign body in the proximal esophagus with retained food particles as described. Reading Location: [id number] Chest X-Ray 08/21/25 15:25 IMPRESSION: Stable mild increased markings at the lung base suggestive of mild bibasilar scarring and scattered calcified granulomas. Reading Location: [id number] Assessment & Plan Assessment/Plan (1) Food impaction of esophagus: (2) Dysphagia: PLAN: The patient is a 60-year-old female with a history of atrial fibrillation on Eliquis and a prior stroke who presents with an acute esophageal foreign body impaction, likely a bone, causing obstructive symptoms and odynophagia. The foreign body is visualized on CT scan in the upper to mid esophagus. The patient's inability to manage secretions or take oral medications suggests a high-grade obstruction. The use of Eliquis poses an increased risk for bleeding during potential endoscopic intervention or if the foreign body has caused mucosal injury or perforation. Plan Diagnosis: Esophageal foreign body (bone). Procedure: Urgent esophagogastroduodenoscopy (EGD) for endoscopic foreign body removal. This is indicated due to the type of foreign body (bone, which can cause perforation) and the duration of impaction. Pre-Procedure Management: The patient has a history of atrial fibrillation and is currently on Eliquis. The risk of bleeding versus the urgency of the foreign body removal must be assessed. Discussion with the patient's cardiology and/or stroke team regarding the management of Eliquis (holding the medication, potential reversal) is necessary before the procedure, weighing the risk of stroke against the risk of bleeding during endoscopy. Maintain NPO (nothing by mouth) status. IV fluids for hydration (patient has not eaten in several days). Informed consent for the procedure, discussing the risks of bleeding, mucosal injury, perforation, and aspiration. Appropriate airway management plan is in place for the procedure by anesthesiologist. Charges/Coding Visit Charges Inpatient E&M: 87960 Init Hosp L3
--- NOTE | 2025-08-21 17:05 | EGD_PTH ---
PATIENT: NIGHAT TIMMONS LOC: EN U#:[id number] AGE/SX: 60/F ROOM: RE08/21/[address]: Dr. Sumeet Irving DO : 1965 BED: DIS: 08/21/2025 SPEC #: [id number] RECD: 08/24/25 07:13 STATUS: HUMERA REQ #: [id number] KENNEDY: 08/21/25 17:[address]: Sumeet Irving DEPT: SURGICAL PATHOLOGY RECD BY: Peng Scott ENTERED: 08/24/25 10:18 SP TYPE: EGD BIOPSY SUSAN DR: Dr. Elizabeth Santamaria MD Tissues: A - Esophagus, NOS Procedures: Immunohistochemical Stains Special Stain Group I Surgery Specimen Level IV GMS Stain (control) HEADER OPERATION: EGD PRE-OP DIAGNOSIS: Food impaction of esophagus, dysphagia TISSUE SUBMITTED: A- Proximal esophagus ulcer biopsy MICROSCOPIC DIAGNOSIS A. Proximal esophagus, "ulcer", biopsy: - Squamous mucosa with reactive changes and acute inflammation. - Inflamed granulation tissue consistent with ulceration. - PASD stain for fungal organisms and IHC for HSV PENDING, to be reported in an addendum. MICROSCOPIC DESCRIPTION Slides are reviewed. GROSS DESCRIPTION A. Received in fixative is one container labeled with the patient's name and designated "Proximal esophagus ulcer biopsy." The specimen consists of multiple irregular fragments of huertas tissue that in aggregate measure 0.6 x 0.3 x 0.1 cm. The specimen is totally submitted in one cassette. ME 08/24/2025 CPT:95641,59621,61128 ADDENDUM ADDENDUM ADDENDUM ADDENDUM ADDENDUM ADDENDUM ADDENDUM ADDENDUM ADDENDUM ADDENDUM ADDENDUM ADDENDUM ADDENDUM 09/03/2025 13:24 ADDENDUM 09/04/2025 11:05 ADDENDUM 09/03/2025 13:24 ADDENDUM 09/03/2025 13:24 ADDENDUM 09/03/2025 13:24 ADDENDUM 09/03/2025 13:24 This addendum is to report the PASD and HSV IHC findings: IHC for HSV (herpes simplex virus) is negative. PASD is pending and will be reported in a subsequent addendum. All matched controls reacted appropriately. These tests were developed and their performance characteristics determined by [facility]. They may not have been cleared or approved by the [place]. Food and Drug Administration. The FDA has determined that such clearance or approval is not necessary. The above immunohistochemical markers and/or special stains have been reviewed by the Pathologist. This addendum is to report the findings of the PASD special stain: The PASD stain is negative for fungal organisms.
--- NOTE | 2025-08-21 17:09 | PCM.PRE.AN2 ---
ASA Classification* ASA Classification ASA Classification: 3 and E Assessment & Plan Anesthesia* Anesthesia Assessment Anesthesia Assessment: Discussed sedation and/or anesthesia options, risks, benefits, and alternatives with patient/parents/legal guardian/POA. Questions invited. The patient/parents/legal guardian/POA seems to understand and agrees to proceed with anesthesia plan. Reviewed the physical assessment, medical history, allergy history and patient home medications list prior to surgery/procedure/anesthetic and documented any changes. Performed airway and anesthesia risk assessments. Anesthesia Type Anesthesia Type: General History Source History Obtained from:: Patient and Chart Anesthesia Focused Assessment* Temperature: 98.5 F Pulse Rate: 69 Blood Pressure: 146/76 Respiratory Rate: 16 Pulse Ox: 100 Oxygen Delivery Method: Room Air Airway Assessment Mouth opens: 2 cm Mallampati Score: IV Teeth Condition: Dentures (Full upper and lower dentures are out.) Neck Range of motion (ROM): Limited ROM (Severe Restriction) Labs Anesthesia Preop lab: CBC WBC, (4.4-11.0) 12.1 K/mm3 H Today, 14:05 RBC, (4.2-5.4) 5.23 M/mm3 Today, 14:05 Hgb, (12.0-15.0) 16.2 g/dL H Today, 14:05 Hct, (37-47) 46.3 % Today, 14:05 Plt Count, (150-450) 202 K/mm3 Today, 14:05 CHEMISTRY Potassium, (3.3-5.1) 4.3 mmol/L Today, 14:05 Sodium, (133-145) 134 mmol/L Today, 14:05 Magnesium, (1.5-2.2) 2.0 mg/dL 02/12/25, 08:55 Phosphorus, (2.5-4.9) 3.3 mg/dL 11/15/23, 04:00 BUN, (4-19) 14 mg/dL Today, 14:05 Creatinine, (0.70-1.20) 1.43 mg/dL H Today, 14:05 Glucose, (70-99) 91 mg/dL Today, 14:05 POC Glucose, (70-110) 99 mg/dL 12/20/20, 10:33 TSH, (0.300-4.200) 1.380 uIU/mL 02/12/25, 08:55 COAG PT, (11.7-14.9) 14.4 SECONDS 06/07/25, 17:07 Pre-Assessment Diagnosis/Proposed Procedure Planned Operative Procedure(s): Esophagogastroduodenoscopy Anesthesia History Anesthesia History - distribution designer: Anesthesia History - distribution designer Hx Hospitalization No 01/20/25 12:40 Any Problems With Anesthesia No 01/20/25 12:40 Cholinesterase deficiency No 01/20/25 12:40 You/Your Family Experience No 01/20/25 12:40 fever (hyperthermia) with Relationship Recent Exposure to Contagious No 01/20/25 12:40 Disease Does patient have nerve No 01/20/25 12:40 stimulator Patient instructed to have device shut off --Does patient have Pacemaker or ICD? When Was Last Pacemaker Check QUESTION #4 FULL TEXT: You/Your Family Experience fever (hyperthermia) with Anesthesia Last Oral Intake Last Oral intake: Last Oral Intake NPO since 0000 Meds taken in AM with sips of water? Meds patient instructed to take am of surgery PONV PONV - distribution designer: PONV - distribution designer Female HX of Motion Sickness HX of N/V After Surgery Non-Smoker Duration of Surgery greater than 60 minutes Number of Risk Factors PONV Score Height & Weight Height & Weight: Anesthesia: Height & Weight Height 5 ft 3 in 08/21/25 11:50 Weight: 111.7 kg 08/21/25 11:52 Body Mass Index (BMI) 43.6 08/21/25 11:52 Respiratory Assessment Respiratory Assessment - distribution designer: Respiratory Tract Infection Hx - distribution designer Hx Respiratory Tract Infection No 01/20/25 12:40 STOP Sleep Apnea STOP Sleep Apnea - distribution designer: STOP Sleep Apnea - distribution designer Hx Hypertension Yes 06/08/25 11:33 Hx Sleep Apnea Yes 06/07/25 17:44 CPAP Yes: 2 06/07/25 17:44 BIPAP No 06/07/25 17:44 Do you snore loudly (louder than talking or can be heard Do you often feel tired/ fatigued/ sleepy during daytime? Has anyone observed you stop breathing during sleep? STOP Results QUESTION #5 FULL TEXT : Do you snore loudly (louder than talking or can be heard through closed doors)? Tobacco Use History Tobacco Use History - distribution designer: Tobacco Use History - distribution designer Tobacco Use Cigarettes 01/20/25 12:40 Smoking Status Former smoker 08/21/25 12:54 Hx Tobacco Use No 06/07/25 17:44 Years Smoking Packs Smoked per Day Smoking Cessation Date was Yes - quit smoking within 15 08/21/25 12:54 within the last 15 years years Hx Smoking Cessation Date 11/16/23 08/21/25 12:54 Hx Smoking Cessation No 08/21/25 12:54 Counseling Hematologic Medial History Hematologic Hx - distribution designer: Hematologic Medical Hx - complex care nurse Hx of Blood Transfusion Hx of Transfusion in last 3 Months Date of Last Transfusion (if within last 3 months) Ever experience any problems with transfusion(s)? Specify any problems Hx of Preganancy in last 3 Months Nurse Filling Out Transfusion & Questions: Date: Time: Patient unable to answer at this time (ie. confused, unrespo /Reproduction History /Reproductive History - distribution designer: /Reproductive Hx- distribution designer Hx Now Gestational Age (in weeks): EDC: Hx Hx Para Hx Section SAB No 07/02/25 10:35 Does the father of the baby or his family experience fever w Father of the baby Malignant Hypertension history comment [facility] Medical History On home oxygen therapy Irregular heart beat Atrial fibrillation Myocardial infarct Acute dyspnea Influenza A COVID-19 Altered mental status Stroke-like symptoms Chronic anticoagulation AF (paroxysmal atrial fibrillation) Acute right-sided weakness PONV (postoperative nausea and vomiting) Adult failure to thrive Contusion of hip Back contusion Difficulty in walking Impingement of left shoulder Enchondroma of left humerus History of Holter monitoring Loss of hearing Wears glasses Bipolar disorder History of steroid therapy History of renal disease Restless legs Sleep apnea Chronic cough History of skin cancer Disease of gingiva due to infection COVID-19 virus infection Degenerative tear of meniscus of left knee Osteoarthritis of left knee Cyclic vomiting syndrome Colitis Pain of left calf Kidney disease Sarcoidosis Morbid obesity Debility Myositis Stroke/cerebrovascular accident TIA (transient ischemic attack) History of atrial fibrillation Chest pain Diarrhea Bilateral flank pain Dysuria Oral candidiasis Abdominal pain Bilateral foot pain Venous insufficiency of both lower extremities History of abnormal cervical Pap smear Wears dentures Post-menopausal Cancer Marijuana use Open wound Thyroid disease Walker as ambulation aid Arthritis Bladder disease High cholesterol Easy bruising Excessive bleeding Back pain Injury of head and neck Blackout Syncope Seizures Dietary restriction Difficulty chewing History of hiatal hernia History of ulceration History of IBS Gastric reflux Smoker CPAP (continuous positive airway pressure) dependence Shortness of breath on exertion Leg cramps History of edema History of echocardiogram Hx of tilt table evaluation History of stress test Cardiology follow-up encounter History of CHF (congestive heart failure) Family history of colon cancer Allergic rhinitis Osteoarthritis of right hip Nonrheumatic aortic (valve) insufficiency Non-rheumatic mitral regurgitation Intertriginous dermatitis associated with moisture Psychosis Orthostatic hypotension Osteoarthritis DAPHNE (obstructive sleep apnea) Schizo NEC, chrn/exacerb Peripheral artery disease Pulmonary embolism Stroke Hypothyroidism HTN (hypertension) PAF (paroxysmal atrial fibrillation) Hypokalemia Hyponatremia Arthralgia of right hip Hip dislocation, right Enlarged aorta CKD (chronic kidney disease) Bipolar 1 disorder Cyst Non-convulsive status epilepticus Migraines Asthma Aortic valve insufficiency Hypertensive crisis without congestive heart failure Left arm swelling Conversion disorder with abnormal movement Gastritis Convulsion, non-epileptic Schizophrenia Depression Home Medications Medication Instructions Recorded Last Taken Type acetaminophen 325 mg capsule 325 mg PO Q4H PRN pain 01/04/24 03/24/24 History aripiprazole 15 mg tablet 15 mg PO DAILY bipolar 01/11/24 08/18/25 History trazodone 100 mg tablet 100 mg PO QHS sleep 01/11/24 08/18/25 History polyethylene glycol 3350 17 17 g PO QDAY PRN constipation #850 05/14/24 08/18/25 Rx gram/dose oral powder grams hydroxyzine pamoate 100 mg capsule 100 mg PO QHS 05/21/24 08/18/25 History baclofen 5 mg tablet 5 mg PO 3XD 11/07/24 08/18/25 History cyclosporine 0.05 % eye drops in a 1 drp ophthalmic (eye) Q12H 11/07/24 08/18/25 History dropperette (Restasis) lidocaine 5 % topical patch 3 patch topical Q24H pain #30 ea 11/17/24 08/13/25 Rx nitroglycerin 0.4 mg sublingual 0.4 mg sublingual PRN PRN CHEST 01/22/25 Unknown Rx tablet PAIN #25 tabs carvedilol 3.125 mg tablet 3.125 mg PO BID #60 TABLETS 02/26/25 08/18/25 Rx lactulose 10 gram/15 mL oral 30 ml PO DAILY #473 mL 03/31/25 08/18/25 Rx solution (Enulose) mepolizumab 100 mg/mL subcutaneous 100 mg subcut Q4W #1 mL 04/21/25 Unknown Rx syringe (Nucala) amitriptyline 25 mg tablet 25 mg PO QHS #30 tabs 04/28/25 08/18/25 Rx apixaban 5 mg tablet (Eliquis) 5 mg PO BID #60 tabs 04/28/25 08/18/25 Rx omeprazole 40 mg capsule,delayed 40 mg PO BID #120 caps 05/11/25 08/21/25 Rx release prochlorperazine maleate 5 mg 5 mg PO TID PRN nausea and 05/13/25 08/18/25 Rx tablet vomiting 30 days #90 tabs ondansetron HCl 4 mg tablet 4 mg PO Q6H PRN nausea and 05/26/25 Unknown Rx vomiting #30 tabs cyanocobalamin (vitamin B-12) 1,500 mcg IM QMONTH 06/01/25 Unknown History 1,000 mcg/mL injection solution hydrocortisone 1 % topical 1 applic topical BID PRN itching 06/01/25 Unknown Rx ointment (Anti-Itch #28.35 grams (hydrocortisone)) valbenazine 40 mg capsule 40 mg PO QDAY 06/01/25 08/18/25 History (Ingrezza) tramadol 50 mg tablet 50 mg PO BID PRN pain 06/03/25 Unknown History furosemide 40 mg tablet 40 mg PO DAILY #30 tabs 06/19/25 08/18/25 Rx melatonin 5 mg tablet 10 mg (2 x 5 mg) PO QHS #90 tabs 06/19/25 08/18/25 Rx spironolactone 25 mg tablet 25 mg PO DAILY #90 tabs 06/19/25 08/18/25 Rx budesonide-formoterol HFA 160 2 inh inhalation DAILY asthma #3 ea 07/17/25 08/20/25 Rx mcg-4.5 mcg/actuation aerosol inhaler (Symbicort) losartan 25 mg tablet 25 mg PO QDAY #90 tabs 07/17/25 08/18/25 Rx tiotropium bromide 1.25 2 puff inhalation QAM #4 grams 07/17/25 08/18/25 Rx mcg/actuation mist for inhalation (Spiriva Respimat) plecanatide 3 mg tablet (Trulance) 3 mg PO QDAY #30 tabs 08/03/25 08/18/25 Rx albuterol sulfate 90 mcg/actuation 2 puff inhalation Q4H PRN 08/17/25 08/18/25 Rx aerosol inhaler shortness of breath or wheezing #8.5 grams cholecalciferol (vitamin D3) 50 50 mcg PO QAM #90 caps 08/17/25 08/18/25 Rx mcg (2,000 unit) capsule cyanocobalamin (vitamin B-12) 500 500 mcg PO DAILY #90 tabs 08/17/25 08/18/25 Rx mcg tablet levothyroxine 50 mcg tablet 50 mcg PO DAILY for disorder of 08/17/25 08/18/25 Rx thyroid gland #90 tabs loratadine 10 mg tablet 10 mg PO QHS for allergies #90 tabs 08/17/25 08/18/25 Rx montelukast 10 mg tablet 10 mg PO QHS for allergies #90 tabs 08/17/25 08/18/25 Rx Allergy/AdvReac Type Severity Reaction Status Date / Time adhesive tape Allergy Rash Verified 08/21/25 16:55 atropine sulfate (From Allergy Hives Verified 08/21/25 16:55 ) codeine phosphate (From Allergy "breathing Verified 08/21/25 16:55 Tylenol-Codeine #3) problems" divalproex sodium (From Allergy Unknown Verified 08/21/25 16:55 Depakote) guaifenesin Allergy Itching Verified 08/21/25 16:55 hydrocodone Allergy Itching Verified 08/21/25 16:55 hydromorphone HCl (From Allergy facial Verified 08/21/25 16:55 Dilaudid) blisters,itching hyoscyamine sulfate (From Allergy Hives Verified 08/21/25 16:55 ) latex Allergy Rash Verified 08/21/25 16:55 pantoprazole sodium (From Allergy Rash Verified 08/21/25 16:55 Protonix) phenobarbital (From ) Allergy Hives Verified 08/21/25 16:55 promethazine HCl (From Allergy Anaphylaxis Verified 08/21/25 16:55 Phenergan) ramipril Allergy Unknown Verified 08/21/25 16:55 scopolamine hydrobromide Allergy Hives Verified 08/21/25 16:55 (From ) tramadol Allergy Itching Verified 08/21/25 16:55 ziprasidone mesylate (From Allergy Unknown Verified 08/21/25 16:55 Geodon) amlodipine AdvReac Vomiting Verified 08/21/25 16:55 levofloxacin (From Levaquin) AdvReac Itching Verified 08/21/25 16:55 metoclopramide (From Reglan) AdvReac Other Verified 08/21/25 16:55 Sulfa (Sulfonamide AdvReac Vomiting Verified 08/21/25 16:55 Antibiotics) ziprasidone HCl (From Geodon) AdvReac tremors Verified 08/21/25 16:55 Family History Sister Myocardial infarction Colon cancer Mother Hypertension Arthritis Brain aneurysm Heart disease High cholesterol Sister Colon cancer Heart disease High cholesterol Hypertension Arthritis Grandmother Arthritis Diabetes CVA (cerebral vascular accident) Father Heart disease High cholesterol Hypertension Surgical History History of back surgery (~12/2023) Previous back surgery Cataract extraction status History of esophagogastroduodenoscopy (EGD) Hx of colonoscopy History of laparoscopic cholecystectomy History of uterine suspension procedure S/P carpal tunnel release bladder sling left foot Social History household members: friend(s) number of children: 4 current occupational status: unemployed history of recent travel: No Smoking Status: Former smoker quit date: 11/12/23 Tobacco: How many years used: 26 Electronic Cigarette Use: not used quit status: considering quitting alcohol intake: never substance use type: does not use caffeine: Yes Type: coffee what type of physical activity do you participate in: none seatbelt use: never do you feel safe at home: Yes additional social history: single Review of Systems (Anesthesia) ROS Narrative System reviewed and no additional complaints, except as documented.
[2025-08-21] MEDS: Lactated Ringers 1,000 ML 15 ML IV (17:17)
[2025-08-21] MEDS: Lidocaine 1% (5 ml sdv) 5 ML Vial 10 ML IV (17:24)
[2025-08-21] MEDS: fentaNYL 100 MCG/2 ML Ampul IV (17:29)
--- NOTE | 2025-08-21 18:30 | OP.EGD_ITS ---
Patient Name: Soumya Owens Procedure Date: 08/21/2025 5:17 PM Date of : 1965 Age: 60 Procedure: Upper GI endoscopy Indications: Dysphagia Providers: Sumeet Irving DO Medicines: Monitored Anesthesia Care Patient Profile: This is a 60 year old female. Refer to note in patient chart for documentation of history and physical. Patient has symptoms of dysphagia with both liquids and solids. Complications: No immediate complications. Procedure: Pre-Anesthesia Assessment: - Prior to the procedure, a History and Physical was performed, and patient medications and allergies were reviewed. The patient is competent. The risks and benefits of the procedure and the sedation options and risks were discussed with the patient. All questions were answered and informed consent was obtained. Patient identification and proposed procedure were verified by the physician in the pre-procedure area. Mental Status Examination: alert and oriented. Airway Examination: normal oropharyngeal airway and neck mobility. Respiratory Examination: clear to auscultation. CV Examination: normal. Prophylactic Antibiotics: The patient does not require prophylactic antibiotics. Prior Anticoagulants: The patient has taken no anticoagulant or antiplatelet agents except for NSAID medication. ASA Grade Assessment: II - A patient with mild systemic disease. After reviewing the risks and benefits, the patient was deemed in satisfactory condition to undergo the procedure. The anesthesia plan was to use monitored anesthesia care (MAC). Immediately prior to administration of medications, the patient was re-assessed for adequacy to receive sedatives. The heart rate, respiratory rate, oxygen saturations, blood pressure, adequacy of pulmonary ventilation, and response to care were monitored throughout the procedure. The physical status of the patient was re-assessed after the procedure. After obtaining informed consent, the endoscope was passed under direct vision. Throughout the procedure, the patient's blood pressure, pulse, and oxygen saturations were monitored continuously. The Endoscope was introduced through the mouth, and advanced to the second part of duodenum. The upper GI endoscopy was accomplished without difficulty. The patient tolerated the procedure well. Scope In: 5:33:02 PM Scope Out: 6:23:16 PM Total Procedure Duration Time 0 hours 50 minutes 14 seconds Findings: Food was found at the cricopharyngeus, in the upper third of the esophagus and in the proximal esophagus. Removal was accomplished with a Raptor grasping device, Kuldip and Argueta net. One cratered esophageal ulcer oozing blood was found 20 to 25 cm from the incisors. The lesion was 6 mm in largest dimension. Coagulation for hemostasis using argon plasma at 0.3 liters/minute and 30 null was successful. Biopsies were taken with a cold forceps for histology. Verification of patient identification for the specimen was done. Estimated blood loss was minimal. The examined esophagus was grossly tortuous. A medium amount of food (residue) was found in the entire examined stomach. No gross lesions were noted in the duodenal bulb. Impression: - Food at the cricopharyngeus and in the upper third of the esophagus. Removal was successful. - Esophageal ulcer oozing blood. Treated with argon plasma coagulation (APC). Biopsied. - Tortuous esophagus. - A medium amount of food (residue) in the stomach. - No gross lesions in the duodenal bulb. Recommendation: - Discharge patient to home. - Full liquid diet for 5 days. - Use Protonix (pantoprazole) 40 mg PO BID for 2 months. - Continue present medications. Procedure Code(s): --- Professional --- 99417, 59, Esophagogastroduodenoscopy, flexible, transoral; with control of bleeding, any method 68025, Esophagogastroduodenoscopy, flexible, transoral; with removal of foreign body(s) 53015, 51, Esophagogastroduodenoscopy, flexible, transoral; with biopsy, single or multiple CPT copyright 2021 [employer]. All rights reserved. The codes documented in this report are preliminary and upon container filler review may be revised to meet current compliance requirements. Sumeet Irving DO 08/21/2025 6:29:23 PM This report has been signed electronically. Number of Addenda: 0 Note Initiated On: 08/21/2025 5:17 PM
--- NOTE | 2025-08-21 18:30 | OP.PROVAT_ITS ---
08/21/2025 Elizabeth Santamaria Md Re : Upper GI endoscopy procedure for Soumya Owens Dear [place] This procedure was performed on Thursday, August 21, 2025. My impressions and recommendations are as follows: Impressions : - Food at the cricopharyngeus and in the upper third of the esophagus. Removal was successful. - Esophageal ulcer oozing blood. Treated with argon plasma coagulation (APC). Biopsied. - Tortuous esophagus. - A medium amount of food (residue) in the stomach. - No gross lesions in the duodenal bulb. Recommendations : - Discharge patient to home. - Full liquid diet for 5 days. - Use Protonix (pantoprazole) 40 mg PO BID for 2 months. - Continue present medications. My findings are described in the full procedure note, which is enclosed. If I can be of further assistance, please feel free to contact me at . Sincerely, Sumeet Irving, 08/21/2025 6:29:23 PM This report has been signed electronically.
--- NOTE | 2025-08-21 18:36 | PCM.POST.ANE ---
Anesthesia: Postop Eval I Current Vital Signs Temperature: 97.5 F Pulse Rate: 88 Blood Pressure: 135/92 Respiratory Rate: 16 Pulse Ox: 96 Oxygen Delivery Method: Room Air Assessment Airway patent: Yes Spontaneous unlabored respirations: Yes Mental status: Awake and Calm nausea: No Vomiting: No Anesthesia Complication: No Fluid Hydration Crystalloid volume administer (ml): 600 Total IV fluid infused: 600 Progress Note Anesthesia document: Postop Eval 1 completed: Yes
--- NOTE | 2025-08-21 18:55 | PCM.POSTANE2 ---
Anesthesia Postop Eval I Sum Postop Eval Completion status Anesthesia document: Postop Eval 1 completed: Yes Anesthesia Postop Eval I Summary Anesthesia Postop Eval I Summary: Anesthesia Postop Eval I: Assessment Summary Airway patent Yes 08/21/25 18:38 Spontaneous unlabored Yes 08/21/25 18:38 respirations Mental status Awake,Calm 08/21/25 18:38 nausea No 08/21/25 18:38 Vomiting No 08/21/25 18:38 Anesthesia Postop Eval I: Fluid Summary Crystalloid volume administer 600 08/21/25 18:38 (ml) Colloids volume administered ( ml) Blood Product volume administered (ml) Total IV fluid infused 600 08/21/25 18:38 Anesthesia Postop Eval I: Summary Notes Anesthesia Complication No 08/21/25 18:38 Anesthesia Complication Comment: Post-operative progress note Anesthesia: Postop Eval II Evaluation Mental status: Awake and Calm Pain Level: 1 nausea: No Vomiting: No Complications Anesthesia Complication: No
[2025-08-21] MEDS: Lidocaine 2% Viscous15 ML UDC 15 ML PO (19:00)
== END 2025-08-21 19:30 | disposition home or self-care (01) ==
LOC: ED 16:40 → EN 16:51 → ACINP 16:52
PROVIDERS: Emergency Provider Emergency Medicine; PCP Internal Medicine; Referring Provider Internal Medicine; Visit Provider Internal Medicine Gastroenterology
DX: T18.128A Food in esophagus causing other injury, initial encounter (principal); I13.0 Hypertensive heart and chronic kidney disease with heart failure and stage 1 through stage 4 chronic kidney disease, or unspecified chronic kidney disease; I50.9 Heart failure, unspecified; F31.9 Bipolar disorder, unspecified; I48.0 Paroxysmal atrial fibrillation; N18.9 Chronic kidney disease, unspecified; Z87.891 Personal history of nicotine dependence; E78.00 Pure hypercholesterolemia, unspecified; R13.10 Dysphagia, unspecified; Z79.899 Other long term (current) drug therapy; Z99.81 Dependence on supplemental oxygen; I25.2 Old myocardial infarction; Z86.73 Personal history of transient ischemic attack (TIA), and cerebral infarction without residual deficits; G47.33 Obstructive sleep apnea (adult) (pediatric); Z99.89 Dependence on other enabling machines and devices; K21.9 Gastro-esophageal reflux disease without esophagitis; Z79.01 Long term (current) use of anticoagulants; E03.9 Hypothyroidism, unspecified; Z79.890 Hormone replacement therapy; Z90.49 Acquired absence of other specified parts of digestive tract; W44.F3XA Food entering into or through a natural orifice, initial encounter; K22.11 Ulcer of esophagus with bleeding; K22.89 Other specified disease of esophagus
CPT/HCPCS: 43247; 43255; 43239; 70491; 71046; 80048; 85025; 88305; 88312; 88342; 99284; C1889; Q9967; A4216; J2405

== ENCOUNTER 2025-08-28 16:03 | Emergency (ER) | payer MEDICAID, SELFPAY ==
[2025-08-28 16:04] VITALS: BP 129/81; PULSE 92; RESP 18; TEMP 36.9; O2SAT 99
--- NOTE | 2025-08-28 16:18 | ED.VIS.GI ---
HPI HPI - GI History of Present Illness Chief Complaint: Abd Pain Narrative Narrative: 60-year-old female presents with what she considers colitis. She has had symptoms for the last 7 days. Started last Sunday where she has nausea and vomiting at least 3 times a day. No hematemesis. She has abdominal pain that is more on the left side, but goes all across the epigastric area in the middle of her abdomen to the right side. She states she is also had a low-grade fever. Her last bout of colitis was in 2021 where she states she was hospitalized. She denies any exacerbating or alleviating factors but states that the pain is sharp and stabbing and multiple areas. She denies any dysuria or hematuria. Denies prior abdominal surgeries except for uterine suspension. [facility] Medical History On home oxygen therapy Irregular heart beat Atrial fibrillation Myocardial infarct Acute dyspnea Influenza A COVID-19 Altered mental status Stroke-like symptoms Chronic anticoagulation AF (paroxysmal atrial fibrillation) Acute right-sided weakness PONV (postoperative nausea and vomiting) Adult failure to thrive Contusion of hip Back contusion Difficulty in walking Impingement of left shoulder Enchondroma of left humerus History of Holter monitoring Loss of hearing Wears glasses Bipolar disorder History of steroid therapy History of renal disease Restless legs Sleep apnea Chronic cough History of skin cancer Disease of gingiva due to infection COVID-19 virus infection Degenerative tear of meniscus of left knee Osteoarthritis of left knee Cyclic vomiting syndrome Colitis Pain of left calf Kidney disease Sarcoidosis Morbid obesity Debility Myositis Stroke/cerebrovascular accident TIA (transient ischemic attack) History of atrial fibrillation Chest pain Diarrhea Bilateral flank pain Dysuria Oral candidiasis Abdominal pain Bilateral foot pain Venous insufficiency of both lower extremities History of abnormal cervical Pap smear Wears dentures Post-menopausal Cancer Marijuana use Open wound Thyroid disease Walker as ambulation aid Arthritis Bladder disease High cholesterol Easy bruising Excessive bleeding Back pain Injury of head and neck Blackout Syncope Seizures Dietary restriction Difficulty chewing History of hiatal hernia History of ulceration History of IBS Gastric reflux Smoker CPAP (continuous positive airway pressure) dependence Shortness of breath on exertion Leg cramps History of edema History of echocardiogram Hx of tilt table evaluation History of stress test Cardiology follow-up encounter History of CHF (congestive heart failure) Family history of colon cancer Allergic rhinitis Osteoarthritis of right hip Nonrheumatic aortic (valve) insufficiency Non-rheumatic mitral regurgitation Intertriginous dermatitis associated with moisture Psychosis Orthostatic hypotension Osteoarthritis DAPHNE (obstructive sleep apnea) Schizo NEC, chrn/exacerb Peripheral artery disease Pulmonary embolism Stroke Hypothyroidism HTN (hypertension) PAF (paroxysmal atrial fibrillation) Hypokalemia Hyponatremia Arthralgia of right hip Hip dislocation, right Enlarged aorta CKD (chronic kidney disease) Bipolar 1 disorder Cyst Non-convulsive status epilepticus Migraines Asthma Aortic valve insufficiency Hypertensive crisis without congestive heart failure Left arm swelling Conversion disorder with abnormal movement Gastritis Convulsion, non-epileptic Schizophrenia Depression Home Medications Medication Instructions Recorded Last Taken Type acetaminophen 325 mg capsule 325 mg PO Q4H PRN pain 01/04/24 03/24/24 History aripiprazole 15 mg tablet 15 mg PO DAILY bipolar 01/11/24 08/18/25 History trazodone 100 mg tablet 100 mg PO QHS sleep 01/11/24 08/18/25 History polyethylene glycol 3350 17 17 g PO QDAY PRN constipation #850 05/14/24 08/18/25 Rx gram/dose oral powder grams hydroxyzine pamoate 100 mg capsule 100 mg PO QHS 05/21/24 08/18/25 History baclofen 5 mg tablet 5 mg PO 3XD 11/07/24 08/18/25 History cyclosporine 0.05 % eye drops in a 1 drp ophthalmic (eye) Q12H 11/07/24 08/18/25 History dropperette (Restasis) lidocaine 5 % topical patch 3 patch topical Q24H pain #30 ea 11/17/24 08/13/25 Rx nitroglycerin 0.4 mg sublingual 0.4 mg sublingual PRN PRN CHEST 01/22/25 Unknown Rx tablet PAIN #25 tabs carvedilol 3.125 mg tablet 3.125 mg PO BID #60 TABLETS 02/26/25 08/18/25 Rx lactulose 10 gram/15 mL oral 30 ml PO DAILY #473 mL 03/31/25 08/18/25 Rx solution (Enulose) mepolizumab 100 mg/mL subcutaneous 100 mg subcut Q4W #1 mL 04/21/25 Unknown Rx syringe (Nucala) amitriptyline 25 mg tablet 25 mg PO QHS #30 tabs 04/28/25 08/18/25 Rx apixaban 5 mg tablet (Eliquis) 5 mg PO BID #60 tabs 04/28/25 08/18/25 Rx omeprazole 40 mg capsule,delayed 40 mg PO BID #120 caps 05/11/25 08/21/25 Rx release prochlorperazine maleate 5 mg 5 mg PO TID PRN nausea and 05/13/25 08/18/25 Rx tablet vomiting 30 days #90 tabs ondansetron HCl 4 mg tablet 4 mg PO Q6H PRN nausea and 05/26/25 Unknown Rx vomiting #30 tabs cyanocobalamin (vitamin B-12) 1,500 mcg IM QMONTH 06/01/25 Unknown History 1,000 mcg/mL injection solution hydrocortisone 1 % topical 1 applic topical BID PRN itching 06/01/25 Unknown Rx ointment (Anti-Itch #28.35 grams (hydrocortisone)) valbenazine 40 mg capsule 40 mg PO QDAY 06/01/25 08/18/25 History (Ingrezza) tramadol 50 mg tablet 50 mg PO BID PRN pain 06/03/25 Unknown History furosemide 40 mg tablet 40 mg PO DAILY #30 tabs 06/19/25 08/18/25 Rx melatonin 5 mg tablet 10 mg (2 x 5 mg) PO QHS #90 tabs 06/19/25 08/18/25 Rx spironolactone 25 mg tablet 25 mg PO DAILY #90 tabs 06/19/25 08/18/25 Rx budesonide-formoterol HFA 160 2 inh inhalation DAILY asthma #3 ea 07/17/25 08/20/25 Rx mcg-4.5 mcg/actuation aerosol inhaler (Symbicort) losartan 25 mg tablet 25 mg PO QDAY #90 tabs 07/17/25 08/18/25 Rx tiotropium bromide 1.25 2 puff inhalation QAM #4 grams 07/17/25 08/18/25 Rx mcg/actuation mist for inhalation (Spiriva Respimat) plecanatide 3 mg tablet (Trulance) 3 mg PO QDAY #30 tabs 08/03/25 08/18/25 Rx albuterol sulfate 90 mcg/actuation 2 puff inhalation Q4H PRN 08/17/25 08/18/25 Rx aerosol inhaler shortness of breath or wheezing #8.5 grams cholecalciferol (vitamin D3) 50 50 mcg PO QAM #90 caps 08/17/25 08/18/25 Rx mcg (2,000 unit) capsule cyanocobalamin (vitamin B-12) 500 500 mcg PO DAILY #90 tabs 08/17/25 08/18/25 Rx mcg tablet levothyroxine 50 mcg tablet 50 mcg PO DAILY for disorder of 08/17/25 08/18/25 Rx thyroid gland #90 tabs loratadine 10 mg tablet 10 mg PO QHS for allergies #90 tabs 08/17/25 08/18/25 Rx montelukast 10 mg tablet 10 mg PO QHS for allergies #90 tabs 08/17/25 08/18/25 Rx lidocaine HCl 2 % mucosal solution 1 applic mucous membrane TID 1 08/21/25 Unknown Rx (Lidocaine Viscous) month #600 mL lidocaine HCl 2 % mucosal solution 1 applic mucous membrane TID PRN 08/21/25 Unknown Rx (Lidocaine Viscous) pain #300 mL sucralfate 1 gram tablet (Carafate) 1 g PO TID #90 tabs 08/21/25 Unknown Rx cephalexin 500 mg capsule 500 mg PO Q12 #14 CAPSULES 08/28/25 Unknown Rx Allergy/AdvReac Type Severity Reaction Status Date / Time adhesive tape Allergy Rash Verified 08/28/25 16:07 atropine sulfate (From Allergy Hives Verified 08/28/25 16:07 ) codeine phosphate (From Allergy "breathing Verified 08/28/25 16:07 Tylenol-Codeine #3) problems" divalproex sodium (From Allergy Unknown Verified 08/28/25 16:07 Depakote) guaifenesin Allergy Itching Verified 08/28/25 16:07 hydrocodone Allergy Itching Verified 08/28/25 16:07 hydromorphone HCl (From Allergy facial Verified 08/28/25 16:07 Dilaudid) blisters,itching hyoscyamine sulfate (From Allergy Hives Verified 08/28/25 16:07 ) latex Allergy Rash Verified 08/28/25 16:07 pantoprazole sodium (From Allergy Rash Verified 08/28/25 16:07 Protonix) phenobarbital (From ) Allergy Hives Verified 08/28/25 16:07 promethazine HCl (From Allergy Anaphylaxis Verified 08/28/25 16:07 Phenergan) ramipril Allergy Unknown Verified 08/28/25 16:07 scopolamine hydrobromide Allergy Hives Verified 08/28/25 16:07 (From ) tramadol Allergy Itching Verified 08/28/25 16:07 ziprasidone mesylate (From Allergy Unknown Verified 08/28/25 16:07 Geodon) amlodipine AdvReac Vomiting Verified 08/28/25 16:07 levofloxacin (From Levaquin) AdvReac Itching Verified 08/28/25 16:07 metoclopramide (From Reglan) AdvReac Other Verified 08/28/25 16:07 Sulfa (Sulfonamide AdvReac Vomiting Verified 08/28/25 16:07 Antibiotics) ziprasidone HCl (From Geodon) AdvReac tremors Verified 08/28/25 16:07 Family History Sister Myocardial infarction Colon cancer Mother Hypertension Arthritis Brain aneurysm Heart disease High cholesterol Sister Colon cancer Heart disease High cholesterol Hypertension Arthritis Grandmother Arthritis Diabetes CVA (cerebral vascular accident) Father Heart disease High cholesterol Hypertension Surgical History History of back surgery (~12/2023) Previous back surgery Cataract extraction status History of esophagogastroduodenoscopy (EGD) Hx of colonoscopy History of laparoscopic cholecystectomy History of uterine suspension procedure S/P carpal tunnel release bladder sling left foot Social History (Updated 08/28/25 @ 16:38 by Edwige Portillo) household members: friend(s) housing: apartment number of children: 4 current occupational status: unemployed history of recent travel: No Smoking Status: Former smoker quit date: 11/12/23 Tobacco: How many years used: 26 Electronic Cigarette Use: not used quit status: considering quitting alcohol intake: never substance use type: does not use caffeine: Yes Type: coffee what type of physical activity do you participate in: none seatbelt use: never do you feel safe at home: Yes additional social history: single ROS ROS ED ROS Narrative Review of systems positive for sharp abdominal pain mainly in the left flank and across the epigastric area. Low-grade fever reported. Nausea and vomiting at least 3 times a day for the last 7 days. No exacerbating or alleviating factors. EXAM Physical Exam Narrative Exam Narrative: Afebrile. Vital signs noted. Nontoxic-appearing. Cardiovascular examination regular rate and rhythm. Lungs are clear to auscultation bilaterally. Abdomen is soft, obese, and mildly tender diffusely especially along the left flank but no guarding or rebound. Positive bowel sounds. Neurological examination nonfocal, nonlateralizing. Const Vital Signs: 08/28/25 16:04 08/28/25 18:03 08/28/25 20:00 Temperature 98.5 F Temperature Source Oral Pulse Rate 92 63 59 L Respiratory Rate 18 16 Blood Pressure 129/81 H 133/51 H 128/47 H Blood Pressure Mean 97 78 74 Pulse Ox 99 99 95 Oxygen Delivery Method Room Air Room Air MDM MDM MDM Narrative Medical decision making narrative: Differential diagnosis includes but not limited to colitis versus diverticulitis versus pancreatitis versus nonspecific abdominal pain. I have low suspicion for obstruction clinically. Patient does have multiple allergies to multiple medications. I reviewed her prior ED visits as well. I do feel CT imaging is indicated. She was administered fentanyl and ondansetron. Basic laboratory work, UA, and CT with IV contrast was obtained as well. I reviewed her laboratory work and she has normal white count of 8.2 with hemoglobin slightly hemoconcentrated at 15.5, hematocrit 44.3, platelet count normal at 224. CMP is grossly unremarkable with normal BUN and creatinine, sodium and potassium normal. Glucose 92. Alk phos slightly elevated at 109 which I think is nonspecific with a normal total bilirubin of 0.3. Lipase normal at 24. I do not feel she has a pancreatitis. In review of her urinalysis she has positive nitrites and 25-50 WBCs. I reviewed the radiology report of the CT of the abdomen and pelvis which shows a thickened bladder wall consistent with cystitis. In combination with her urinalysis, she will be started on cephalexin as she has multiple allergies to levofloxacin, sulfa, so I feel that cephalexin would be a good choice. She was written a prescription to take twice a day for the next week. There is no acute process otherwise on the CT scan of the abdomen and pelvis. She does have moderate stool in the colon however. She can start an [id number] stool softener and gentle laxative as needed. Upon repeat examination, her abdomen remains soft and she feels improved. At this point in time, I do not feel she requires observation or admission. I feel she can be discharged to follow-up with her primary care provider. Return instructions to the emergency department were reviewed. Disposition is discharged home in stable condition. History & Record Review Discussion w/independent historian: Patient Additional record(s) reviewed:: Prior ED visit and Prior labs Lab Data Attestation: I reviewed the patient's lab results. Labs: Laboratory Results - last 24 hr 08/28/25 16:33 WBC 8.2 RBC 4.98 Hgb 15.5 H Hct 44.3 MCV 89.0 MCH 31.1 MCHC 35.0 RDW Std Deviation 43.8 RDW Coeff of Yonathan 13.4 Plt Count 224 MPV 10.7 Immature Gran % (Auto) 0.200 Neut % (Auto) 68.5 Lymph % (Auto) 21.0 [place] % (Auto) 9.7 Eos % (Auto) 0.4 Baso % (Auto) 0.2 Absolute Neuts (auto) 5.6 Absolute Lymphs (auto) 1.71 Nucleated RBC % 0 Sodium 135 Potassium 4.7 Chloride 101 Carbon Dioxide 23.6 Anion Gap 10 BUN 11 Creatinine 1.20 Estim Creat Clear Calc 58.82 Est GFR (MDRD) Non-Af 52 L BUN/Creatinine Ratio 9.1 L Glucose 92 Calcium 9.3 Total Bilirubin 0.30 AST 28 ALT 23 Alkaline Phosphatase 109 H Total Protein 6.3 Albumin 3.9 Globulin 2.4 Albumin/Globulin Ratio 1.6 Lipase 24 Urine Color Straw Urine Clarity Sl. Cloudy Urine pH 6.5 Ur Specific [place] 1.010 Urine Protein 15 H Urine Glucose (UA) Normal Urine Ketones Negative Urine Occult Blood Negative Urine Nitrite Positive H Urine Bilirubin Negative Urine Urobilinogen Normal Ur Leukocyte Esterase 500 H Urine RBC 0-5 SEEN Urine WBC 25-50 SEEN Ur Squamous Epith Cells 0-5 SEEN Urine Bacteria 4+ Urine Mucus 1+ Radiography Diagnostic Testing: Clinical Impression(s) from Imaging Studies Abdomen/Pelvis CT 08/28/25 17:55 IMPRESSION: 1. Bladder wall thickening which may be due to the decompressed state of the bladder or due to cystitis. 2. Fatty liver. 3. Small esophageal hiatal hernia. 4. Umbilical hernia containing fat. 5. Fecal retention in the colon consistent with constipation. 6. Left basilar atelectasis with a nodular component measuring up to 9 mm, unchanged. Reading Location: [facility] Discharge Plan Triage Chief Complaint: Abd Pain ED Provider: Matteo Benton Dx/Rx/DC Orders Clinical Impression: Cystitis, Abdominal pain Instructions: ED Abdominal Pain Unkn Cause Fem, ED Constipation (Adult), ED Cystitis Female Adult Prescriptions: New cephalexin 500 mg capsule 500 mg PO Q12 Qty: 14 0RF No Action acetaminophen 325 mg capsule 325 mg PO Q4H PRN (Reason: pain) hydroxyzine pamoate 100 mg capsule 100 mg PO QHS lactulose [Enulose] 10 gram/15 mL solution 30 ml PO DAILY Qty: 473 0RF Patient Comments: [NO ORIGINAL SIG] Nucala 100 mg/mL syringe 100 mg subcut Q4W Qty: 1 11RF tramadol 50 mg tablet 50 mg PO BID PRN (Reason: pain) cyanocobalamin (vitamin B-12) 1,000 mcg/mL solution 1,500 mcg IM QMONTH Ingrezza 40 mg capsule 40 mg PO QDAY hydrocortisone [Anti-Itch (HC)] 1 % ointment 1 applic topical BID PRN (Reason: itching) Qty: 28.35 0RF aripiprazole 15 mg tablet 15 mg PO DAILY trazodone 100 mg tablet 100 mg PO QHS cyclosporine [Restasis] 0.05 % dropperette 1 drp ophthalmic (eye) Q12H Patient Comments: [NO ORIGINAL SIG] baclofen 5 mg tablet 5 mg PO 3XD polyethylene glycol 3350 17 gram/dose powder 17 g PO QDAY PRN (Reason: constipation) Qty: 850 1RF lidocaine 5 % adhesive patch,medicated 3 patch topical Q24H Qty: 30 0RF Rx Instructions: APPLY ONE PATCH TO PAINFUL AREA FOR UP TO 12 HOURS, THEN REMOVE FOR 12 HOURS nitroglycerin 0.4 mg tablet, sublingual 0.4 mg SUBLINGUAL PRN PRN (Reason: CHEST PAIN) Qty: 25 3RF carvedilol 3.125 mg tablet 3.125 mg PO BID Qty: 60 11RF Eliquis 5 mg tablet 5 mg PO BID Qty: 60 11RF amitriptyline 25 mg tablet 25 mg PO QHS Qty: 30 4RF omeprazole 40 mg capsule,delayed release(DR/EC) 40 mg PO BID Qty: 120 2RF prochlorperazine maleate 5 mg tablet 5 mg PO TID PRN (Reason: nausea and vomiting) 30 Days Qty: 90 4RF ondansetron HCl 4 mg tablet 4 mg PO Q6H PRN (Reason: nausea and vomiting) Qty: 30 2RF furosemide 40 mg tablet 40 mg PO DAILY Qty: 30 5RF spironolactone 25 mg tablet 25 mg PO DAILY Qty: 90 0RF melatonin 5 mg tablet 10 mg PO QHS Qty: 90 1RF losartan 25 mg tablet 25 mg PO QDAY Qty: 90 3RF budesonide-formoterol [Symbicort] 160-4.5 mcg/actuation HFA aerosol inhaler 2 inh inhalation DAILY Qty: 3 3RF Spiriva Respimat 1.25 mcg/actuation mist 2 puff inhalation QAM Qty: 4 11RF Trulance 3 mg tablet 3 mg PO QDAY Qty: 30 3RF levothyroxine 50 mcg tablet 50 mcg PO DAILY Qty: 90 0RF montelukast 10 mg tablet 10 mg PO QHS Qty: 90 0RF cyanocobalamin (vitamin B-12) 500 mcg tablet 500 mcg PO DAILY Qty: 90 0RF cholecalciferol (vitamin D3) 50 mcg (2,000 unit) capsule 50 mcg PO QAM Qty: 90 0RF loratadine 10 mg tablet 10 mg PO QHS Qty: 90 0RF albuterol sulfate 90 mcg/actuation HFA aerosol inhaler 2 puff inhalation Q4H PRN (Reason: shortness of breath or wheezing) Qty: 8.5 6RF Rx Instructions: administer with spacer lidocaine HCl [Lidocaine Viscous] 2 % solution 1 applic mucous membrane TID PRN (Reason: pain) Qty: 300 0RF sucralfate [Carafate] 1 gram tablet 1 g PO TID Qty: 90 0RF lidocaine HCl [Lidocaine Viscous] 2 % solution 1 applic mucous membrane TID 30 Days Qty: 600 0RF Primary Care Provider: Elizabeth Santamaria Referrals: Elizabeth Santamaria MD [Primary Care Provider, Internal Medicine] - 3-5 Days Activity Restrictions/Additional Instructions: Follow-up with your primary care provider in 3 to 5 days. Take all of the antibiotics for your bladder infection. Return with sustained high fever, increased pain, new or worsening symptoms. Print Language: Estonian Disposition Disposition: Home, Self Care D/C Safety Score for UGIB Assessment Kelliher-Blatchford Bleeding Score (GBS): Stratifies upper GI bleeding patients who are "low-risk" and candidates for outpatient management. Hemoglobin, BUN, Recent Vital Signs: Hgb 15.5 g/dL (12.0-15.0) H 08/28/25 16:33 BUN 11 mg/dL (4-19) 08/28/25 16:33 Pulse Rate 59 Blood Pressure 128/47 Score Interpretation: Score of 0: A GBS of 0 is a “Low Risk” GI bleed, and is highly sensitive (99.6% in a 2006 retrospective study) for predicting which patients did not require any “medical intervention”: blood transfusion, endoscopy, or surgery. This was confirmed in a 2009 [facility] study where patients with a score of 0 were actually discharged and had no GI bleeding mortality at 6 month followup Score above 0: A GBS greater than zero suggests a “High Risk” GI bleed that is likely to require “medical intervention”: transfusion, endoscopy, or surgery. A higher GBS also correlated with a higher likelihood of needing intervention Scores >/= 6 are associated with >50% risk of needing intervention D/C Safety Score for LGIB Assessment Assessment Tool: Readmission and adverse event risk in patients with acute lower GI bleeding. Hemoglobin and Recent Vital Signs: Hgb 15.5 g/dL (12.0-15.0) H 08/28/25 16:33 Pulse Rate 59 08/28/25 20:00 Blood Pressure 128/47 08/28/25 20:00 Score Interpretation: Probability Percentage of safe discharge (absence of rebleeding, blood transfusion, therapeutic intervention, 28 day readmission, or ) Score of 8 or below: Consider discharge, with appropriate precautions. Score of 9 or above: Discharge NOT recommended. Consider admission with further workup and resuscitation as necessary.
[2025-08-28 16:37] VITALS: BMI 43.2
[2025-08-28] MEDS: 0.9% Normal Saline (1000mL) 1,000 ML 999 ML IV (16:41)
[2025-08-28] MEDS: fentaNYL 100 MCG/2 ML Ampul 50 MCG IV (16:41)
[2025-08-28 16:54] LABS: Color, Urine Straw (Yellow); Glucose, Dipstick Normal (Normal); Ketone-Dipstick Negative (Negative); Leukocyte Esterase-Dipstick 500 /ul (Negative); Nitrite-Dipstick Positive (Negative); Occult Blood-Urine Negative /ul (Negative); Protein-Dipstick 15 mg/dl (Negative); Specific Gravity, Urine 1.010 (1.002-1.030); Urine Bilirubin Dipstick Negative (Negative)
[2025-08-28 17:13] LABS: Lipase 24 U/L (13-75)
[2025-08-28 17:14] LABS: AST(SGOT) 28 U/L (<=31); Alanine Aminotransfer ALT/SGPT 23 U/L (<=34); Albumin, Serum 3.9 g/dL (3.4-4.8); Alkaline Phosphatase 109 U/L (35-104); Anion Gap 10 (5-15); BUN 11 mg/dL (4-19); BUN/Creat Ratio 9.1 RATIO (10-20); Calcium,Total 9.3 mg/dL (7.6-11.0); Carbon Dioxide 23.6 mmol/L (21.0-32.0); Chloride 101 mmol/L (98-108); Estimated Creatinine Clearance 58.82 ml/min (50-250); Globulin 2.4 g/dL (2.2-4.2); Glucose 92 mg/dL (70-99); Potassium 4.7 mmol/L (3.3-5.1)
[2025-08-28 17:15] LABS: Hematocrit 44.3 % (37-47); Hemoglobin 15.5 g/dL (12.0-15.0); Immature Granulocytes Count 0.020 X10^3/uL (0.0-0.0); Mean Corp Hgb Conc 35.0 g/dL (32-36); Mean Corpuscular Volume 89.0 fL (81-99); Mean Platelet Vol. 10.7 fl (6.2-12.0); NRBC Flagged by Analyzer 0 % (0-5); Platelet Count 224 K/mm3 (150-450); RBC Distribution Width CV 13.4 % (11.6-14.6); RBC Distribution Width SD 43.8 fl (35.1-43.9); Red Blood Count 4.98 M/mm3 (4.2-5.4); White Blood Count 8.2 K/mm3 (4.4-11.0)
--- NOTE | 2025-08-28 17:55 | CT_ITS ---
EXAM: CT Abdomen and Pelvis With Intravenous Contrast CLINICAL INDICATION: PAIN TECHNIQUE: Axial computed tomography images of the abdomen and pelvis with intravenous contrast. This CT exam was performed using one or more of the following dose reduction techniques: automated exposure control, adjustment of the mA and/or kV according to patient size, and/or use of iterative reconstruction technique. COMPARISON: CT Abdomen Pelvis dated 05/15/2025 FINDINGS: LUNG BASES: Left basilar atelectasis with a nodular component measuring up to 9 mm, unchanged. MEDIASTINUM: Small esophageal hiatal hernia. ABDOMEN: LIVER: Fatty liver. GALLBLADDER AND BILE DUCTS: Gallbladder is surgically absent. No ductal dilation. PANCREAS: Unremarkable. No mass. No ductal dilation. SPLEEN: Unremarkable. No splenomegaly. ADRENALS: Unremarkable. No mass. KIDNEYS AND URETERS: Unremarkable. No solid mass. No hydronephrosis. STOMACH AND BOWEL: Fecal retention in the colon consistent with constipation. No obstruction. No mucosal thickening. PELVIS: APPENDIX: No findings to suggest acute appendicitis. BLADDER: Bladder wall thickening which may be due to the decompressed state of the bladder or due to cystitis. REPRODUCTIVE: Unremarkable as visualized. ABDOMEN and PELVIS: INTRAPERITONEAL SPACE: Unremarkable. No free air. No significant fluid collection. BONES/JOINTS: Status post posterior fusion of L4-5. No acute fracture. No dislocation. SOFT TISSUES: Umbilical hernia containing fat. VASCULATURE: Scattered calcified atherosclerotic disease of aorta. No abdominal aortic aneurysm. LYMPH NODES: Unremarkable. No enlarged lymph nodes. CT/Abdomen/Pelvis W IV Cont ONLY IMPRESSION: 1. Bladder wall thickening which may be due to the decompressed state of the b ladder or due to cystitis. 2. Fatty liver. 3. Small esophageal hiatal hernia. 4. Umbilical hernia containing fat. 5. Fecal retention in the colon consistent with constipation. 6. Left basilar atelectasis with a nodular component measuring up to 9 mm, unc hanged. Reading Location: [id number]
[2025-08-28 18:03] VITALS: BP 133/51; PULSE 63; RESP 16; O2SAT 99
[2025-08-28 18:09] LABS: Mucous, Urine 1+ /hpf (<or=2+); Squamous Epithelial Cells - UA 0-5 SEEN /hpf (5-10)
[2025-08-28 18:10] LABS: Red Blood Cells-Urine 0-5 SEEN /hpf (0-5)
[2025-08-28 20:00] VITALS: BP 128/47; PULSE 59; O2SAT 95
[2025-08-28 21:18] VITALS: BP 128/47; PULSE 59; RESP 16; TEMP 37; O2SAT 95
== END 2025-08-28 21:18 | disposition home or self-care (01) ==
PROVIDERS: Emergency Provider Emergency Medicine; PCP Internal Medicine; Visit Provider Emergency Medicine
DX: R10.85 Abdominal pain of multiple sites (principal); I50.9 Heart failure, unspecified; I13.0 Hypertensive heart and chronic kidney disease with heart failure and stage 1 through stage 4 chronic kidney disease, or unspecified chronic kidney disease; F31.9 Bipolar disorder, unspecified; I48.0 Paroxysmal atrial fibrillation; Z87.891 Personal history of nicotine dependence; N30.90 Cystitis, unspecified without hematuria; N18.9 Chronic kidney disease, unspecified; E78.00 Pure hypercholesterolemia, unspecified; I25.2 Old myocardial infarction; Z79.01 Long term (current) use of anticoagulants; Z86.73 Personal history of transient ischemic attack (TIA), and cerebral infarction without residual deficits; Z79.899 Other long term (current) drug therapy; K21.9 Gastro-esophageal reflux disease without esophagitis; J45.909 Unspecified asthma, uncomplicated; Z79.51 Long term (current) use of inhaled steroids; E03.9 Hypothyroidism, unspecified; Z79.890 Hormone replacement therapy; Z90.49 Acquired absence of other specified parts of digestive tract; Z98.49 Cataract extraction status, unspecified eye
CPT/HCPCS: 74177; 80053; 81001; 83690; 85025; 96361; 96374; 96375; 99282; Q9967; A4216; J2405

== ENCOUNTER → 2025-09-28 | Outpatient (CLI) | payer MEDICAID, SELFPAY ==
--- NOTE | 2025-09-28 07:16 | ECHOD_ITS ---
Reason For Study Reason For Study: SOB Procedure This was a 2D Doppler, Color Flow transthoracic echocardiogram. Exam performed in department. Left Ventricle Normal LV size. Mild concentric left ventricular hypertrophy. The left ventricular ejection fraction is 65 %. Stage 1 diastolic dysfunction. Right Ventricle Normal right ventricle. Atria The left and right atria are normal. Mitral Valve Trivial mitral valve insufficiency. Tricuspid Valve Trivial tricuspid valve insufficiency. Unable to estimate RV systolic pressure due to insufficient tricuspid regurgitant envelope. Aortic Valve Trisinus/trileaflet aortic valve. Mild-Moderate (1-2+) aortic valve insufficiency. Pulmonic Valve The pulmonic valve is not well visualized. Trivial pulmonic valve insufficiency. Great Vessels Mildly dilated aortic root. Pericardium/Pleural No pericardial effusion. MMode/2D Measurements & Calculations LVIDd: 5.8 cm IVSd: 1.2 cm LVOT diam: 2.0 cm LVIDs: 3.1 cm LVPWd: 1.0 cm LVOT area: 3.2 cm2 FS: 46.1 % Ao root diam: 4.0 cm LAV(MOD-bp): 38.8 ml LVAd ap4: 29.0 cm2 LAV(MOD-bp) Indexed: 18.9 ml/m2 LVLd ap4: 8.9 cm LAV(MOD-sp2): 33.4 ml EDV(MOD-sp4): 79.6 ml LAV(MOD-sp4): 40.3 ml EDV(sp4-el): 80.1 ml LVAs ap4: 14.0 cm2 LVLs ap4: 7.8 cm ESV(MOD-sp4): 23.0 ml ESV(sp4-el): 21.5 ml EF(MOD-sp4): 71.1 % EF(sp4-el): 73.1 % SV(MOD-sp4): 56.6 ml SV(sp4-el): 58.5 ml LA A4 area: 15.6 cm2 SI(MOD-sp4): 27.6 ml/m2 LA dimension(2D): 3.3 cm RA A4 area: 8.6 cm2 Time Measurements MV dec time: 0.24 sec Doppler Measurements & Calculations MV E max govind: 56.5 cm/sec Lat Peak E' Govind: 8.3 cm/sec Med Peak E' Govind: 6.8 cm/sec MV A max govind: 84.7 cm/sec E/E' lat: 6.8 E/E' med: 8.3 MV E/A: 0.67 MV V2 max: 96.5 cm/sec Ao V2 max: 207.0 cm/sec MV max P.7 mmHg MV dec slope: 234.5 cm/sec2 Ao max P.1 mmHg MV V2 mean: 43.1 cm/sec Ao V2 mean: 151.4 cm/sec MV mean P.96 mmHg Ao mean P.0 mmHg MV V2 VTI: 31.8 cm Ao V2 VTI: 49.5 cm AV (velocity ratio): 0.84 MVA(VTI): 4.3 cm2 YAJAIRA(I,D): 2.7 cm2 YAJAIRA(V,D): 2.5 cm2 AI max govind: 442.4 cm/sec LV V1 max: 159.4 cm/sec SV(LVOT): 135.2 ml AI max P.3 mmHg LV V1 max P.2 mmHg LV V1 mean P.1 mmHg AI dec slope: 178.2 cm/sec2 LV V1 mean: 132.6 cm/sec AI P1/2t: 727.3 msec LV V1 VTI: 41.7 cm PA V2 max: 105.8 cm/sec PA V2 mean: 76.4 cm/sec ECHO/Echo Complete Interpretation Summary Mild concentric left ventricular hypertrophy. The left ventricular ejection fraction is 65 %. Stage 1 diastolic dysfunction. Mild-Moderate (1-2+) aortic valve insufficiency. Mildly dilated aortic root. Ordering Physician: Basia Cueva Referring Physician: Basia Cueva Performed By: Guera Vaughn RCS
--- NOTE | 2025-09-28 11:27 | STRESSREP_ITS ---
Stress Test Report Date: 09/28/2025 Procedure: Pharmacologic stress nuclear imaging study Indications: Chest pain Consent: Per the patient Procedure: The patient underwent pharmacologic (Regadenoson 0.4mg ) evaluation with a peak heart rate of 90 beats per minute (56%predicted maximal heart rate) and a peak blood pressure of 142/80 mmHg. The baseline ECG demonstrated sinus rhythm. The peak pharmacologic ECG did not show any ischemic changes. There were no cardiac dysrhythmias pretest, during pharmacologic infusion, or recovery. There was no complaint of chest discomfort during pharmacologic infusion or recovery. The patient was injected with 14.1 millicuries of technetium 99m Cardiolite and subsequently rest SPECT Cardiolite nuclear imaging was obtained in the horizontal long, vertical long, and short axis views. The patient underwent pharmacologic (Regadenoson) evaluation. The patient was injected with 44.3 millicuries of technetium 99m Cardiolite and subsequently stress SPECT Cardiolite nuclear imaging was obtained in the horizontal long, vertical long, and short axis views. A gated Cardiolite study at peak stress was obtained. The examination was stopped secondary to completion of protocol. Rest and stress SPECT Cardiolite nuclear imaging status post realignment, normalization, and attenuation correction demonstrate mildly reduced perfusion of the mid to distal anterior wall and apex post pharmacological stress, suggestive of ischemia. There is end systolic thickening and brightening. The gated Cardiolite study demonstrates myocardial thickening and inward wall motion. The reported LVEF is 68%. Impression: 1. Pharmacologic (Regadenoson) evaluation 2. Peak pharmacologic ECG with no ischemic changes. 3. There were no cardiac dysrhythmias pretest, during pharmacologic infusion, or recovery. 5. Suspect mid to distal anterior and apical ischemia. 6. The gated Cardiolite study reports an LVEF of 68%. This note was generated with [employer] software. It may contain incorrect words, spelling, and punctuation that were not noted in checking the note before signing.
== END | disposition home or self-care (01) ==
LOC: CVS 07:15
PROVIDERS: PCP Internal Medicine; Referring Provider Nurse Practitioner Gerontology; Visit Provider Nurse Practitioner Gerontology
DX: R06.02 Shortness of breath (principal); I77.819 Aortic ectasia, unspecified site
CPT/HCPCS: 78452; 93017; 93306; A9500; A4216; J2785